=== PATIENT | male | born 1965 | race Caucasian/White ===

== ENCOUNTER 2023-07-29 18:15 | Inpatient (IN) | payer MEDICARE, OTHER, SELFPAY ==
[2023-07-29] VITALS (21 sets, daily range): BP systolic 108–152; BP diastolic 37–93; BMI 26.1
[2023-07-29] MEDS: DILAUDID 1 MG IV ×3 (14:53→21:38)
[2023-07-29 15:03] LABS: % Basophils 0.7 % (0-2); % Eosinophils 0.8 % (0-6); % Immature Granulocytes 0.6 % (0-0.5); % Lymphocytes 6.8 % (20.5-51.1); % Monocytes 7.7 % (1.7-9.3); % Neutrophils 83.4 % (42.2-75.2); Absolute Basophils 0.1 10^3/uL (0-0.2); Absolute Eosinophils 0.1 10^3/uL (0-0.7); Absolute Immature Granulocytes 0.1 10^3/uL (0-0.05); Absolute Lymphocytes 0.7 10^3/uL (1.2-3.4); Absolute Monocytes 0.8 10^3/uL (0.1-0.6); Absolute Neutrophils 9.1 10^3/uL (1.4-6.5); Mean Corp Hgb Conc. 31.8 g/dL (33.0-37.0); Mean Corpuscular Hgb 25.7 pg (27.0-31.0); Mean Corpuscular Volume 80.6 fL (80.0-94.0); Mean Platelet Volume 9.6 fL (7.4-10.4); Nucleated Red Blood Cells % 0 % (-); Platelet Count 337 10^3/uL (130-400); Red Blood Cell Count 2.22 10^6/uL (4.70-6.10); Red Cell Dist. Width 17.2 % (11.5-14.5); White Blood Cell Count 10.9 10^3/uL (4.8-10.8)
[2023-07-29 15:15] LABS: INR 4.95
[2023-07-29 15:29] LABS: Hematocrit 17.9 % (39.0-52.0); Hemoglobin 5.7 g/dL (13.0-18.0)
[2023-07-29 15:40] LABS: Blood Urea Nitrogen 75 mg/dl (9-20); Calcium 8.8 mg/dl (8.4-10.2); Carbon Dioxide 28 mmol/L (22-30); Chloride 91 mmol/L (98-107); Glucose 255 mg/dl (70-99); Potassium 4.8 mmol/L (3.5-5.1); Sodium 130 mmol/L (135-145); eGFR 9.01
--- NOTE | 2023-07-29 16:37 | ED.GENMED ---
History of Present Illness
General
Chief Complaint: Fall
Source: patient
Time Seen by Provider: 07/29/23 14:38
Travel History
Have you had any contact with someone who has COVID-19?: No
Do you have any symptoms of coronavirus? Fever > 100 degrees, chills, cough, shortness of breath, sore throat, loss of taste or smell, muscle aches, or headache?: No
History of Present Illness
History of Present Illness:
58-year-old male who presents after he fell into his nightstand. Patient states he fell on Thursday night. The pain is persistent so he decided come for evaluation. He is on Coumadin. His last INR check was yesterday but he does not know the
results. No shortness of breath. No abdominal pain. No neck pain. No head injury. The patient did not get dialysis today
Past History
Past History
ED Past Medical History: CAD, GERD, HTN, IDDM, Renal failure (End-stage renal disease), Psychiatric (Depression) and Other (Chronic low back pain, ambulatory dysfunction, anemia, pneumonia, pericardial effusion, pleural effusion, frequent falls,
neuropathy)
ED Past Surgical History: Other (Left arm AV graft)
Social History
Tobacco: Non-smoker
Employment: Disabled
Family History
Family History: Other (Noncontributory)
Phy Exam
Physical Exam
Physical Exam:
CONSTITUTIONAL Patient alert and oriented to person, place and time. Moderate pain distress. Vital signs reviewed.
HEAD atraumatic, normocephalic.
EYES eyelids normal to inspection, Extraocular muscles intact, Conjunctiva normal, Sclera normal.
NECK normal range of motion, Trachea midline, no jugular venous distention.
RESPIRATORY CHEST No respiratory distress noted, Chest expansion equal, Bilateral breath sounds clear.
CARDIOVASCULAR regular rate and rhythm, Heart sounds normal.
ABDOMEN abdomen nontender, Bowel sounds normal. No distention.
BACK large palpable hematoma to the left lateral chest wall just posterior to the posterior axillary line. There is no redness or ecchymosis. There is moderate tenderness
UPPER EXTREMITY range of motion normal, Motor strength normal, no cyanosis, no edema.
LOWER EXTREMITY range of motion normal, Motor strength normal, no cyanosis, no edema.
NEURO Speech normal, No focal motor deficits, Atif coma scale 15, Memory normal, Cranial Nerves intact to screening exam.
Course
Orders/Labs/Results
Orders:
Orders
07/29/23 14:45
CT Chest With Iv Contrast Stat
Comment:
Reason For Exam: L posterior chest wall trauma, hematoma
07/29/23 14:46
HYDROmorphone [Dilaudid] 1 mg IV NOW STA
07/29/23 14:51
Basic Metabolic Panel Urgent
Complete Blood Count/With Diff Urgent
Prothrombin Time Urgent
07/29/23 15:42
Electrocardiogram (*1) Urgent
Reason for Study: Other
Other Reason for Exam: fall
EKG- Treatment ONCE
07/29/23 16:35
* Blood Bank Products Urgent
Blood Bank Products: *Packed RBC Leuko(PRBC's)
Quantity: 2
Transfuse Today: Yes
Reason: Bleeding
07/29/23 16:42
Phytonadione [Aquamephyton] 10 mg 0.9% Sodium Chloride 50 ml [Nss] 50 ml IV NOW
07/29/23 16:45
Type+Screen Urgent
07/29/23 16:47
Prothrombin Complex(Pcc),Human [Kcentra] 3,207 unit Empty Viaflex Container 100 ml [Viaflex Empty Container] 120 ml IV NOW
Does patient have a dx of serious acute active bleeding?: Yes
Does patient have prior history of HIT?: No
Urgent surgery/invasive procedure planned in next 6 hours?: No
07/29/23 16:50
HYDROmorphone [Dilaudid] 1 mg IV NOW STA
04/10/24 17:23
Admit/Transfer Patient As Directed
Co-Sign Provider:
Level of Care: Inpatient admission
Assign to:: IMU- Intermediate Care
Physician / Group: oitlio
Diagnosis: chest wall hematoma
Reason for Hospitalization: chest wall hematoma
Expected length of stay greater than two midnights?: Yes
ELOS- Estimated Length of Stay in days: 2
I certify the patient meets the requirements for IP care: Yes
07/29/23 17:24
Code Status As Directed
Resuscitation Status: Full Code
07/29/23 18:04
CT Head W/o Iv Contrast Urgent
Comment:
Reason For Exam: recent fall
Abnormal Lab Results
07/29/23 07/29/23
14:51 16:45
WBC 10.9 H 10^3/uL
(4.8-10.8)
RBC 2.22 L 10^6/uL
(4.70-6.10)
Hgb 5.7 L* g/dL
(13.0-18.0)
Hct 17.9 L* %
(39.0-52.0)
MCH 25.7 L pg
(27.0-31.0)
MCHC 31.8 L g/dL
(33.0-37.0)
RDW 17.2 H %
(11.5-14.5)
Abs Immat Gran (auto) 0.1 H 10^3/uL
(0-0.05)
Absolute Neuts (auto) 9.1 H 10^3/uL
(1.4-6.5)
Absolute Lymphs (auto) 0.7 L 10^3/uL
(1.2-3.4)
Absolute Monos (auto) 0.8 H 10^3/uL
(0.1-0.6)
Immature Gran % 0.6 H %
(0-0.5)
Neutrophils % 83.4 H %
(42.2-75.2)
Lymphocytes % 6.8 L %
(20.5-51.1)
PT 47.0 H Sec
(11.4-14.6)
Sodium 130 L mmol/L
(135-145)
Chloride 91 L mmol/L
(98-107)
BUN 75 H mg/dl
(9-20)
Creatinine 6.6 H* mg/dL
(0.7-1.3)
Glucose 255 H mg/dl
(70-99)
Crossmatch IS Only See Detail
07/29/23 14:51
07/29/23 14:51
Vital Signs
Initial and Last Documented VS:
Initial Vital Signs
Temp Pulse Resp BP Pulse Ox
98.6 F 79 16 119/52 96
07/29/23 14:37 07/29/23 14:37 07/29/23 14:37 07/29/23 14:37 07/29/23 14:37
Last Documented Vital Signs
Temp Pulse Resp BP Pulse Ox
98.6 F 79 16 119/52 96
07/29/23 14:37 07/29/23 14:37 07/29/23 14:37 07/29/23 14:37 07/29/23 14:37
MDM/Problems Addressed
MDM/Problems Addressed:
Hematoma, acute severe coagulopathy, acute severe anemia, end-stage renal disease
*Radiology
Radiology exam reviewed: preliminary read by ED provider (Large hematoma) and radiology read reviewed
*Pulse Oximetry
Patient hypoxic: no
*EKG
Interpreted by ED Provider?: Yes
Interpretation: abnormal
Rate: normal
QRS Pattern: right bundle branch block
Ischemia: non-specific ST changes
*Flyer Repairer Interpretation
Rate: normal
Interpretation: normal
Rhythm: sinus
*Critical Care Note
Total Time (30-74mins, 75-104mins- exclusive of procedures): 60 minutes
Data Reviewed
Review of Other/Old Records Reveals: Labs and Discharge Summary (From March 2023 reviewed)
Source: patient
Further Testing Considered But Not Given:
Considered CT of the neck but no midline tenderness
Patient Management
Discussion with other providers: Hospitalist and Refinery Operator Light Ends Recovery (Case discussed with general surgery who agrees with management)
Escalation/DeEscalation of care consider admission/obs:
58-year-old male presents after fall 3 days ago. Patient states pain is persistent. Has a large hematoma but luckily no rib fractures, no flail chest, no pneumothorax, no obvious pulmonary contusion or intrathoracic injury. Kcentra given to
reverse coagulopathy. Blood ordered. Admit. General surgery agrees with management
ED Attending Note
-
Portions of this chart may have been created with voice recognition software.� Occasional wrong word or��sound alike� substitutions may have occurred due to the inherent limitations of voice recognition software.
Discharge Plan
Departure
Patient Disposition: Admit
Date of Disposition: 07/29/23
Time of Disposition: 16:38
Admit to: IMU
Presentation/result/management discussed w/ accepting MD/DO: Hospitalist
Discharge Problem:
Hematoma, ESRD (end stage renal disease), Anemia, Supratherapeutic INR
Prescriptions:
No Action
atorvastatin 80 mg Tablet
80 mg PO HS
clonidine HCl 0.1 mg Tablet
0.1 mg PO TID
icosapent ethyl [Vascepa] 1 gram Capsule
2 g PO BID
lidocaine-prilocaine 2.5-2.5 % Cream
1 applic TOPICAL MOWEFR
Rx Instructions:
12/23/22 APPLY ONE HOUR PRIOR TO HD TO LEFT AVF
Aimovig Autoinjector 70 mg/mL auto-injector
70 mg SC MONTHLY
Patient Comments:
07/29/2023: pt states hasn't taken in a few months
nifedipine 60 mg Tablet Extended Release
60 mg PO BID Qty: 0 0RF
gabapentin 300 mg capsule
300 mg PO BID
sevelamer carbonate 800 mg tablet
1,600 mg PO MEALS
Probiotic 3 billion cell Capsule
3,000 mmu cells PO DAILY
insulin aspart U-100 [Novolog FlexPen U-100 Insulin] 100 unit/mL (3 mL) insulin pen
1 sliding scale dose SC ACHS
polyethylene glycol 3350 [HealthyLax] 17 gram Powder In Packet
17 g PO DAILY PRN (Reason: constipation) Qty: 0 0RF
bumetanide 2 mg tablet
4 mg PO SUTUTHSA
sertraline 100 mg tablet
100 mg PO DAILY
oxycodone-acetaminophen 5-325 mg tablet
1 tab PO Q8H PRN (Reason: moderate pain)
Patient Comments:
07/29/2023: last filled 06/16/23, 90 tabs for 30 days from [id number]
warfarin 6 mg tablet
6 mg PO QPM
hydralazine 100 mg tablet
100 mg PO TID
pantoprazole 40 mg tablet,delayed release (DR/EC)
40 mg PO BID
losartan 100 mg tablet
100 mg PO DAILY
Dialyvite 100-1 mg tablet
1 tab PO DAILY
insulin degludec [Tresiba U-100 Insulin] 100 unit/mL solution
6 unit SC HS
Referrals:
Rosemarie Paige DO [Family Provider] -
Discharge Date and Time
Print Language: GEORGIAN
[2023-07-29] MEDS: KCENTRA 120 UNIT IV (17:00)
[2023-07-29] MEDS: AQUAMEPHYTON 51 MG IV (17:19)
--- NOTE | 2023-07-29 17:27 | HPS.HSE ---
Addendum entered and electronically signed by Cristi Viera MD 07/29/23 18:02:
ER spoke with cardiothoracic surgery who deferred management to general surgery. ER spoke with general surgery who will consult and states the patient can stay at [place].
Original Note:
Family Physician
-
Family Physician: Rosemarie Paige
Chief Complaint
-
fall and left sided chest wall pain
History of Present Illness
58-year-old male past medical history of ESRD on hemodialysis M, W, F, HFpEF, pleural effusions, coronary artery disease, paroxysmal atrial fibrillation on Coumadin, hypertension, anemia of chronic disease, diabetes, spinal stenosis presenting with
fall 2 days ago with resulting large left flank hematoma. He states that he was adjusting his bed sheets in the head stand/bed fell onto him and he fell onto his left side. He has had significant pain of his left upper chest radiating to his back
and shoulder since then. He denies any chest pain or shortness of breath. He denies any dizziness or syncope. He denies any fevers or chills.
Hemodialysis today and his last dialysis session was on Thursday.
Medical History
Past Medical History
Past Medical History: Reports Other ( ESRD on hemodialysis M, W, F, HFpEF, pleural effusions, coronary artery disease, paroxysmal atrial fibrillation on Coumadin, hypertension, anemia of chronic disease, diabetes, spinal stenosis)
Past Surgical History: Reports Other ( (Left arm AV graft))
Social History
Tobacco: Former Smoker
Alcohol: Former
Drug: None
Family History
Family History: Not pertinent
Allergies / Home Medications
Allergies reflects when Allergies were last updated in [facility].
Home Medications with original date entered in [facility]
Allergy/Medication List:
Allergies
Allergy/AdvReac Type Severity Reaction Status Date / Time
morphine Allergy Unknown Verified 07/29/23 14:37
Home Medications
atorvastatin 80 mg tablet 80 mg PO HS High Cholesterol 12/23/22
clonidine HCl 0.1 mg tablet 0.1 mg PO TID Blood Pressure 12/23/22
icosapent ethyl 1 gram capsule (Vascepa) 2 g PO BID High Cholesterol 12/23/22
lidocaine-prilocaine 2.5 %-2.5 % topical cream 1 applic topical MOWEFR port access 12/23/22
erenumab-aooe 70 mg/mL subcutaneous auto-injector (Aimovig Autoinjector) 70 mg SC MONTHLY migraine 02/05/23
nifedipine 60 mg tablet,extended release 60 mg PO BID Blood Pressure #0 tabs 02/13/23
gabapentin 300 mg capsule 300 mg PO BID Pain 03/30/23
insulin aspart U-100 100 unit/mL (3 mL) subcutaneous pen (Novolog FlexPen U-100 Insulin aspart) 1 sliding scale dose SC ACHS diabetes 03/30/23
lactobacillus combination no.4 3 billion cell capsule (Probiotic) 3,000 mmu cells PO DAILY probiotic 03/30/23
sevelamer carbonate 800 mg tablet 1,600 mg PO MEALS Kidney Disease 03/30/23
polyethylene glycol 3350 17 gram oral powder packet (HealthyLax) 17 g PO DAILY PRN constipation #0 ea 04/10/23
bumetanide 2 mg tablet 4 mg PO SUTUTHSA 07/29/23
hydralazine 100 mg tablet 100 mg PO TID 07/29/23
insulin degludec 100 unit/mL subcutaneous solution (Tresiba U-100 Insulin) 6 unit SC HS Diabetes 07/29/23
losartan 100 mg tablet 100 mg PO DAILY 07/29/23
oxycodone-acetaminophen 5 mg-325 mg tablet 1 tab PO Q8H PRN moderate pain 07/29/23
pantoprazole 40 mg tablet,delayed release 40 mg PO BID 07/29/23
sertraline 100 mg tablet 100 mg PO DAILY 07/29/23
vitamin B complex-vitamin C 100 mg-folic acid 1 mg tablet (Dialyvite) 1 tab PO DAILY 07/29/23
warfarin 6 mg tablet 6 mg PO QPM 07/29/23
Review of Systems
-
History Source: Patient
A 12 point ROS was completed and negative except as noted: Yes
Constitutional: Reports No Symptoms
EENT: Reports No Symptoms
Respiratory: Reports No Symptoms
Cardiac: Reports No Symptoms
Abdomen/GI: Reports No Symptoms
: Reports No Symptoms
Musculoskeletal: Reports No Symptoms
Skin: Reports No Symptoms
Neurological: Reports No Symptoms
Endocrine: Reports No Symptoms
Hematologic/Lymphatic: Reports No Symptoms
Psych: Reports No Symptoms
Physical Exam
Vital Signs
Vital Signs
Temp Pulse Resp BP Pulse Ox
98.6 F 79 16 119/52 96
07/29/23 14:37 07/29/23 14:37 07/29/23 14:37 07/29/23 14:37 07/29/23 14:37
Physical Exam
General: Well Developed, Well Nourished and No Apparent Distress
HEENT: NormoCephalic, Moist mucous membranes and Atraumatic
Respiratory: Clear
Cardiac: S1/S2, Regular Rhythm and Other (left chest wall swelling and tenderness ); No Murmur or Rub
GI: Soft, Non Tender, Non Distended and Normal Bowel Sounds; No Organomegaly
Rectal: Deferred by Provider
Musculoskeletal: No Clubbing, No Cyanosis and No Edema
Skin: No Rash
Neuro: Nonfocal/grossly intact
Laboratory Results
-
07/29/23 14:51
07/29/23 14:51
Laboratory Results
PT 47.0 Sec (11.4-14.6) H 07/29/23 14:51
INR 4.95 07/29/23 14:51
Data Reviewed
-
Lab Data: Labs Reviewed by me
Old Records: Reviewed
Impression/Plan
-
IMPRESSION:
PLAN:
# Fall resulting in large left chest wall hematoma, in the setting of Coumadin use
# Supratherapeutic INR
# Acute blood loss anemia on anemia of chronic kidney disease
-Hemoglobin 5.7 from 8.7
-INR of 4.95
-CT chest shows 20 x 20 x 8 cm solid and cystic fluid collection the left chest wall system with hematoma
-Hold Coumadin
-Vitamin K given
-Kcentra given
-2 units of blood
-Tylenol, Dilaudid for pain
-cardiothoracic surgery recommending transfer to trauma center after stabilization with transfusions and correction of INR
ESRD on hemodialysis M, W, F
-Dialysis today, last dialysis session on Thursday
-Continue sevelamer
-Nephrology consulted
Chronic HFpEF
-continue bumex
History of bilateral pleural effusions status post thoracentesis
-As per CT scan pleural effusions are improved compared to prior
History of pericardial effusion status post pericardiocentesis
Coronary artery disease
-Continue statin
Paroxysmal atrial fibrillation
-hold coumadin
Essential hypertension
-Continue clonidine, hydralazine, losartan, nifedipine
Type 2 diabetes
-Insulin sliding scale
-Continue Tresiba 6 units at night
Hyperlipidemia
-Continue Vascepa
Spinal stenosis
-Continue gabapentin, Percocet
Migraine history
History of C. difficile
Anxiety/depression
-Continue sertraline
Former smoker
Former alcohol use
Full code
DVT prophylaxis�SCDs
Renal diet
--- NOTE | 2023-07-29 18:58 | W.CON.NEPH ---
Consultation
-
Date/Time Consultation Requested: 07/29/231729
Date/Time Consultation Performed: 07/29/23 1900
Requesting Provider: Cristi Archibald
Performing Provider: Jessica Parra
Reason for Consultation: ESRD
Medical History
-
Chief Complaint: fall and left side chest wall pain
History of Present Illness:
58-year-old male past medical history of ESRD on hemodialysis 5yr, M, W, F, at [facility], HFpEF, pleural effusions previous thoracentesis, on chr diuretics with bumex still, IDDM HTN on hydralazine, Procardia and clonidine, Hyperphosphatemia
on renvela, coronary artery disease, paroxysmal atrial fibrillation on Coumadin, anemia of chronic disease, diabetes, spinal stenosis presenting with fall 2 days ago at home with resulting large left flank hematoma. Reportedly he was adjusting his
bed sheets in the head stand/bed fell onto him and he fell onto his left side. He has had significant pain of his left upper chest radiating to his back and shoulder since then. He c/o left lateral chest pain but no shortness of breath. He denies
any dizziness or syncope. He denies any fevers or chills.Last HD was on Thursday. His hb low at 5.[address] chest shows large 20cm hematoma in left chest. No hypotension noted. He is receiving transfusion and had kcentra since INR high 4.95.
Past Medical History
1. ESRD x5 years presumed due to diabetic nephropathy.
2. Chronic pain.
3. Chronic back pain.
4. Atrial fibrillation on Coumadin.
5. Chronic anemia.
6. History of thoracentesis.
7. History of pericardiocentesis at outside hospital back in fall
of 2022.
8. Elevated HEYDI with subsequent negative testing.
9. Peripheral neuropathy.
10. History of left upper extremity radiocephalic AV fistula.
11. History of hypertension on multi-drug regimen.
12. History of coronary artery disease.
13. History of peripheral eosinophilia.
14. Hyperphosphatemia.
Past Surgical History: Other ((Left arm AV graft))
Social History
Tobacco: Former Smoker
Alcohol: Former
Drug: None
Employment: Disabled
Family History
no CKD
Family History: Not Pertinent
Allergies / Home Medications
Allergy/AdvReac Type Severity Reaction Status Date / Time
morphine Allergy Unknown Verified 07/29/23 14:37
�Medication �Instructions �Recorded �Confirmed �Type
atorvastatin 80 mg tablet 80 mg PO HS High Cholesterol 12/23/22 07/29/23 History
clonidine HCl 0.1 mg tablet 0.1 mg PO TID Blood Pressure 12/23/22 07/29/23 History
icosapent ethyl 1 gram capsule 2 g PO BID High Cholesterol 12/23/22 07/29/23 History
(Vascepa)
lidocaine-prilocaine 2.5 %-2.5 % 1 applic topical MOWEFR port access 12/23/22 07/29/23 History
topical cream
erenumab-aooe 70 mg/mL 70 mg SC MONTHLY migraine 02/05/23 07/29/23 History
subcutaneous auto-injector
(Aimovig Autoinjector)
nifedipine 60 mg tablet,extended 60 mg PO BID Blood Pressure #0 tabs 02/13/23 07/29/23 Rx
release
gabapentin 300 mg capsule 300 mg PO BID Pain 03/30/23 07/29/23 History
insulin aspart U-100 100 unit/mL 1 sliding scale dose SC ACHS 03/30/23 07/29/23 History
(3 mL) subcutaneous pen (Novolog diabetes
FlexPen U-100 Insulin aspart)
lactobacillus combination no.4 3 3,000 mmu cells PO DAILY probiotic 03/30/23 07/29/23 History
billion cell capsule (Probiotic)
sevelamer carbonate 800 mg tablet 1,600 mg PO MEALS Kidney Disease 03/30/23 07/29/23 History
polyethylene glycol 3350 17 gram 17 g PO DAILY PRN constipation #0 04/10/23 07/29/23 Rx
oral powder packet (HealthyLax) ea
bumetanide 2 mg tablet 4 mg PO SUTUTHSA 07/29/23 07/29/23 History
hydralazine 100 mg tablet 100 mg PO TID 07/29/23 07/29/23 History
insulin degludec 100 unit/mL 6 unit SC HS Diabetes 07/29/23 07/29/23 History
subcutaneous solution (Tresiba
U-100 Insulin)
losartan 100 mg tablet 100 mg PO DAILY 07/29/23 07/29/23 History
oxycodone-acetaminophen 5 mg-325 1 tab PO Q8H PRN moderate pain 07/29/23 07/29/23 History
mg tablet
pantoprazole 40 mg tablet,delayed 40 mg PO BID 07/29/23 07/29/23 History
release
sertraline 100 mg tablet 100 mg PO DAILY 07/29/23 07/29/23 History
vitamin B complex-vitamin C 100 1 tab PO DAILY 07/29/23 07/29/23 History
mg-folic acid 1 mg tablet
(Dialyvite)
warfarin 6 mg tablet 6 mg PO QPM 07/29/23 07/29/23 History
Review of Systems
-
All compelte 12 point ROS have been inquired and found negative other than stated in HPI
Physical Exam
Vital Signs
Vital Signs
Temp Pulse Resp BP Pulse Ox
98.3 F 77 20 133/59 96
07/29/23 18:45 07/29/23 18:45 07/29/23 18:45 07/29/23 18:45 07/29/23 14:37
Lab Results
WBC 10.9 10^3/uL (4.8-10.8) H 07/29/23 14:51
RBC 2.22 10^6/uL (4.70-6.10) L 07/29/23 14:51
Hgb 5.7 g/dL (13.0-18.0) L* 07/29/23 14:51
Hct 17.9 % (39.0-52.0) L* 07/29/23 14:51
Plt Count 337 10^3/uL (130-400) 07/29/23 14:51
Sodium 130 mmol/L (135-145) L 07/29/23 14:51
Potassium 4.8 mmol/L (3.5-5.1) 07/29/23 14:51
Chloride 91 mmol/L (98-107) L 07/29/23 14:51
Carbon Dioxide 28 mmol/L (22-30) 07/29/23 14:51
BUN 75 mg/dl (9-20) H 07/29/23 14:51
Creatinine 6.6 mg/dL (0.7-1.3) H* 07/29/23 14:51
eGFR 9.01 07/29/23 14:51
Glucose 255 mg/dl (70-99) H 07/29/23 14:51
Calcium 8.8 mg/dl (8.4-10.2) 07/29/23 14:51
CT chest:
FINDINGS:
There is a large heterogeneous hematoma in the left hip chest wall, this measures at least 20 cm anterior to posterior, 22 cm craniocaudal and 8 cm transverse.
This begins at the level of the clavicle and subclavian vessels. No definite vascular extravasation into the soft tissues. The hematoma extends inferiorly to the level of the kidneys, with significant edema in the soft tissues of the flank, left
side of the chest and upper abdomen extending to the midline in the back.
No definite fracture identified. There is no pneumothorax. There are moderate degenerative changes in the spine, with significant disk narrowing, increased kyphosis, and flowing osteophytes.
There are bilateral pleural effusions right greater than left, significantly improved when compared to the previous exam. The patient had undergone a previous left thoracentesis after the prior CT scan.
There is minimal stranding, scarring and atelectasis in the dependent portion of the right upper lobe, and scarring with atelectasis extending into the right lower lobe. Limited evaluation due to the large amount of pleural fluid.
On the left there is a small to moderate-sized pleural effusion and mild left base atelectasis and scarring. Significantly improved compared to the previous exam.
Limited imaging in the upper abdomen, the patient's arms are at the sides. This limits overall evaluation. Dense calcification along the posterior aspect of the spleen is unchanged. May be due to previous injury. There is a 2 cm hypodensity in the
right upper quadrant, posterior to the adrenal gland, just superior to the kidney. Differential includes renal cyst or adenoma. Hounsfield units are consistent with either a simple cyst in the kidney or adrenal gland adenoma. Left adrenal gland
unremarkable.
IMPRESSION:
Huge 20 x 20 x 8 cm solid and cystic fluid collection in the left chest wall most consistent with the history of recent fall and hematoma. No definite acute hemorrhage into the fluid collection.
These findings were discussed with Dr. Aaron in the emergency room at 4:35 PM.
No definite adjacent fracture. No pneumothorax.
Bilateral pleural effusions right greater than left, actually improved compared to the previous CT scan 4 months ago. Basilar atelectasis and scarring.
Moderate degenerative change in the spine.
Probable simple cyst exophytic in the superior aspect of the right kidney versus 2 cm adenoma.
Physical Exam
General: Awake, Alert, Oriented and AOx3
HEENT: EOMI and Anicteric
Respiratory: Clear and Other (tender left chest wall)
Cardiac: S1/S2 and Regular Rate/Rhythm
Abdomen: Soft, Nontender and Nondistended
Musculoskeletal: No Cyanosis and Edema (1+)
Skin: No Rash
Neuro: Nonfocal/Grossly Intact
Psych: Insight/judgement good and Appropriate
Assessment/Plan
-
IMP:
Fall resulting in large left chest wall hematoma, in the setting of Coumadin use
Acute blood loss anemia on anemia of chronic kidney disease
CT chest shows 20 x 20 x 8 cm solid and cystic fluid collection the left chest wall system with hematoma
ESRD presumed DM nephropathy-on hemodialysis M, W, F, [facility]
Chronic HFpEF
History of bilateral pleural effusions status post thoracentesis
History of pericardial effusion status post pericardiocentesis
Coronary artery disease
Paroxysmal atrial fibrillation
Essential hypertension
DM with multiple microvascular complications
Hyperlipidemia
Spinal stenosis
Migraine history
History of C. difficile
Anxiety/depression
L radial AVF
Severe lumbar spinal stenosis at multiple levels
Chronic low back pain with ambulatory dysfunction
Hyponatremia, hypervolemic
Plan:
A/w fall 2day YARD COUPLER, found to have large left chest wall hematoma
Acute blood loss anemia-ok for transfusion today
will plan HD tomorrow with out heparin
hemodynamics stable
held AC, vit K and Kcentra given
would hold antiHTN meds today
renal diet and FR when diet starts
d/w pt
Data Reviewed
-
Radiology: Report Reviewed by me
CT Scan: Report Reviewed by me
Labs: Labs Reviewed by me and Discussed with Patient
--- NOTE | 2023-07-29 19:48 | PTCARENOTE ---
rn community marketing coordinator- Patient requesting visit from the ar, call placed to visual education teacher ar and left a message.
[2023-07-29] MEDS: PROTONIX 40 MG PO (20:40)
[2023-07-29] MEDS: PROCARDIA XL (EXTENDED RELEASE) 60 MG PO (20:40)
[2023-07-29] MEDS: NEURONTIN 300 MG PO (20:40)
[2023-07-29] MEDS: TYLENOL 650 MG PO (20:40)
[2023-07-29] MEDS: DILAUDID 0.5 MG IV (20:41)
--- NOTE | 2023-07-29 21:30 | PTCARENOTE ---
Pt was admitted to IMU. AAOx3, anxious and c/o back pain 01/27. See MAR for pain management. Pt was screaming and moaning due to pain, BLACK PULLER notify and pain management was adjusted. ST to NSR in the monitor. +1 B/L LE edema. Lt fistula thrill and bruit
present. Lung sounds are diminished at the bases, SaO2 94% RA. Shallow breathing. Abd round. Oliguric. Call nieto within reach. Fist unit of RBC transfused and will started second unit of RBC.
[2023-07-29] MEDS: LIPITOR 80 MG PO (21:46)
[2023-07-29] MEDS: LANTUS 0.0599999999999999978 UNITS SC (21:47)
[2023-07-29 21:53] LABS: Glucose - Point of Care 263 mg/dl (70-99)
[2023-07-30] VITALS (34 sets, daily range): BP systolic 122–201; BP diastolic 58–103; BMI 26.3
[2023-07-30] MEDS: DILAUDID 1 MG IV ×2 (05:21→12:26)
[2023-07-30 05:34] LABS: % Basophils 0.7 % (0-2); % Eosinophils 1.8 % (0-6); % Immature Granulocytes 0.5 % (0-0.5); % Lymphocytes 10.5 % (20.5-51.1); % Neutrophils 75.5 % (42.2-75.2); Absolute Basophils 0.1 10^3/uL (0-0.2); Absolute Eosinophils 0.2 10^3/uL (0-0.7); Absolute Immature Granulocytes 0.1 10^3/uL (0-0.05); Absolute Lymphocytes 1.3 10^3/uL (1.2-3.4); Absolute Monocytes 1.4 10^3/uL (0.1-0.6); Absolute Neutrophils 9.4 10^3/uL (1.4-6.5); Hematocrit 21.4 % (39.0-52.0); Mean Corp Hgb Conc. 33.2 g/dL (33.0-37.0); Mean Corpuscular Hgb 26.9 pg (27.0-31.0); Mean Corpuscular Volume 81.1 fL (80.0-94.0); Mean Platelet Volume 9.5 fL (7.4-10.4); Nucleated Red Blood Cells % 0 % (-); Platelet Count 288 10^3/uL (130-400); Red Blood Cell Count 2.64 10^6/uL (4.70-6.10); Red Cell Dist. Width 16.3 % (11.5-14.5); White Blood Cell Count 12.5 10^3/uL (4.8-10.8)
[2023-07-30 05:40] LABS: Hemoglobin 7.1 g/dL (13.0-18.0)
[2023-07-30 06:10] LABS: ALT (SGPT) 10 U/L (0-50); AST (SGOT) 19 U/L (17-59); Albumin 2.9 g/dl (3.5-5.0); Alkaline Phosphatase 114 U/L (38-126); Blood Urea Nitrogen 81 mg/dl (9-20); Calcium 8.9 mg/dl (8.4-10.2); Carbon Dioxide 28 mmol/L (22-30); Chloride 91 mmol/L (98-107); Estimated Creatinine Clearance 11 ml/min; Glucose 66 mg/dl (70-99); Sodium 132 mmol/L (135-145); Total Bilirubin 0.8 mg/dl (0.2-1.3); eGFR 7.85
[2023-07-30 07:08] LABS: Glucose - Point of Care 74 mg/dl (70-99)
[2023-07-30] MEDS: NOVOLOG FLEXPEN-LOW RESISTANCE SC ×3 (07:31→17:44)
[2023-07-30] MEDS: RENVELA 1600 MG PO ×3 (08:24→17:44)
[2023-07-30] MEDS: NEURONTIN 300 MG PO ×2 (08:24→20:13)
[2023-07-30 08:35] LABS: Glucose - Point of Care 96 mg/dl (70-99)
--- NOTE | 2023-07-30 08:35 | W.PN.HOSP.TC ---
Today's Communication/Plan
-
Blood transfusion. Surgery eval. Monitor hemoglobin. Pain control.
Assessment / Plan
Assessment / Plan
Physical Exam
General: Well Developed, Well Nourished and No Apparent Distress
HEENT: NormoCephalic, Moist mucous membranes and Atraumatic
Respiratory: Clear
Cardiac: S1/S2, Regular Rhythm and Other (left chest wall swelling and tenderness ); No Murmur or Rub
GI: Soft, Non Tender, Non Distended and Normal Bowel Sounds; No Organomegaly
Rectal: Deferred by Provider
Musculoskeletal: No Clubbing, No Cyanosis and No Edema
Skin: No Rash
Neuro: Nonfocal/grossly intact
A/P:
# Fall resulting in large left chest wall hematoma, in the setting of Coumadin use
# Supratherapeutic INR
# Acute blood loss anemia on anemia of chronic kidney disease
-Hemoglobin 5.7 from 8.7
-INR of 4.95
-CT chest shows 20 x 20 x 8 cm solid and cystic fluid collection the left chest wall system with hematoma
-Hold Coumadin
-Vitamin K given
-Kcentra given
-2 units of blood--> repeat another 1 unit of blood today
-Tylenol, Dilaudid for pain
-cardiothoracic surgery recommending transfer to trauma center after stabilization with transfusions and correction of INR.
-General surgery consulted and discussed with surgery today on 07/29--> plan to monitor conservatively and if worsening might consider repeat CT with angiogram.
-Repeat CBC and coagulation profile tomorrow
ESRD on hemodialysis M, W, F
-Dialysis today, last dialysis session on Thursday
-Continue sevelamer
-Nephrology consulted
Chronic HFpEF
-continue bumex
History of bilateral pleural effusions status post thoracentesis
-As per CT scan pleural effusions are improved compared to prior
History of pericardial effusion status post pericardiocentesis
Coronary artery disease
-Continue statin
Paroxysmal atrial fibrillation
-hold coumadin
Essential hypertension
-Continue clonidine, hydralazine, losartan, nifedipine
Type 2 diabetes
-Insulin sliding scale
-Continue Tresiba 6 units at night
Hyperlipidemia
-Continue Vascepa
Spinal stenosis
-Continue gabapentin, Percocet
Migraine history
History of C. difficile
Anxiety/depression
-Continue sertraline
Former smoker
Former alcohol use
Full code
DVT prophylaxis�SCDs
Renal diet
Total time spent on today's encounter was 52 minutes which included time spent in counseling the patient/family regarding diagnosis and treatment plan as listed above, goals of care, and symptom management. Case was discussed with nursing staff,
specialists, and care coordinators/case management. All labs and imaging personally reviewed by me. Remainder the time spent in detailed review of previous records, lab data, imaging, and other medical provider documentation.
Anticipated Discharge: > 48 hours
Subjective/Interval History
-
Date of Service: July 30, 2023
Patient continues to complain of chest pain and shortness of breath. Generalized weakness present. Remains on room air, off oxygen.
Objective Data
-
Labs:
Laboratory Results
07/30/23 07/30/23
05:27 10:00
WBC 12.5 H
Hgb 7.1 L D Pending
Hct 21.4 L Pending
Plt Count 288
PT Pending
INR Pending
Sodium 132 L
Potassium 5.0
Chloride 91 L
Carbon Dioxide 28
BUN 81 H
Creatinine 7.4 H*
Glucose 66 L
Calcium 8.9
Total Bilirubin 0.8
AST 19
ALT 10
Alkaline Phosphatase 114
Vital Signs:
Vital Signs
Temp Pulse Resp BP Pulse Ox
98.4 F 69 8 130/64 95
07/30/23 07:00 07/30/23 04:00 07/30/23 04:00 07/30/23 04:00 07/30/23 04:00
I&O
07/29/23 07/30/23 07/31/23
06:59 06:59 06:59
Intake Total 740 / 740
Balance 740 / 740
[2023-07-30 08:49] LABS: Glycohemoglobin (HgbA1c) 6.1 % (4.0-5.6)
[2023-07-30] MEDS: RETACRIT 10000 UNITS IV (09:08)
[2023-07-30 10:33] LABS: Hematocrit 20.2 % (39.0-52.0); Hemoglobin 6.8 g/dL (13.0-18.0)
[2023-07-30 10:39] LABS: INR 1.31; PT 16.4 Sec (11.4-14.6)
--- NOTE | 2023-07-30 11:31 | W.PN.NEPH.HD ---
Assessment
-
pt seen during HD
vitals stable
prn transfusion for anemia, high dose JAIME
UF as tolerates
HD tomorrow per schedule
no heparin
AVF functions well
Progress Note - Hemodialysis
-
Date of Service: July 30, 2023
Duration: 30 minutes and 3 hours
Potassium Bath: 2
Calcium Bath: 2.5
Opti-Dialyzer: 160
Ultrafiltration: Other (2.5-3kg)
Blood Flow: 400
Dialysate Flow: 600
Heparin: no
EPO: [id number]
--- NOTE | 2023-07-30 11:49 | CON.GS ---
Consultation
-
Date/Time Consultation Performed: 07/30/2023 11:30 AM
Performing Provider: Jamison
Reason for Consultation: Left chest hematoma
Medical History
-
Chief Complaint: Left scapular/back/chest pain
History of Present Illness:
Patient is a 58-year-old male chronically anticoagulated on Coumadin secondary to A-fib, ESRD on HDwho presented to the emergency department yesterday and with multiple additional medical problems secondary to left lateral chest pain, shortness of
breath and left scapular/shoulder pain.
He was in his usual baseline state of health until Thursday. He was changing his bed sheets when he fell onto his left side hitting his nightstand. There was some discomfort at that time but he did not think much of it and he continued through the
weekend uneventfully. He went to dialysis on Thursday and was still feeling well. Then Thursday into Thursday he developed left posterior chest pain, swelling radiation to the left scapular and shoulder region prompting emergency department
evaluation. He skipped dialysis yesterday.
He continues with the same pain and discomfort today. No dizziness, no shortness of breath, denies any syncope.
Past Medical History
Past Medical History: Other (ESRD on HD, chronic back pain, atrial fibrillation on Coumadin, chronic anemia, history of thoracentesis and pericardiocentesis, peripheral neuropathy, hypertension, CAD, peripheral eosinophilia, hyperphosphatemia)
Past Surgical History: Other (Left upper extremity AV graft, cardiac stenting)
Social History
Tobacco: Former Smoker
Alcohol: Former
Drug: None
Employment: Disabled
Family History
Family History: Reviewed & Not Pertinent
Allergies / Home Medications
Allergy/AdvReac Type Severity Reaction Status Date / Time
morphine Allergy Unknown Verified 07/29/23 14:37
�Medication �Instructions �Recorded �Confirmed �Type
atorvastatin 80 mg tablet 80 mg PO HS High Cholesterol 12/23/22 07/29/23 History
clonidine HCl 0.1 mg tablet 0.1 mg PO TID Blood Pressure 12/23/22 07/29/23 History
icosapent ethyl 1 gram capsule 2 g PO BID High Cholesterol 12/23/22 07/29/23 History
(Vascepa)
lidocaine-prilocaine 2.5 %-2.5 % 1 applic topical MOWEFR port access 12/23/22 07/29/23 History
topical cream
erenumab-aooe 70 mg/mL 70 mg SC MONTHLY migraine 02/05/23 07/29/23 History
subcutaneous auto-injector
(Aimovig Autoinjector)
nifedipine 60 mg tablet,extended 60 mg PO BID Blood Pressure #0 tabs 02/13/23 07/29/23 Rx
release
gabapentin 300 mg capsule 300 mg PO BID Pain 03/30/23 07/29/23 History
insulin aspart U-100 100 unit/mL 1 sliding scale dose SC ACHS 03/30/23 07/29/23 History
(3 mL) subcutaneous pen (Novolog diabetes
FlexPen U-100 Insulin aspart)
lactobacillus combination no.4 3 3,000 mmu cells PO DAILY probiotic 03/30/23 07/29/23 History
billion cell capsule (Probiotic)
sevelamer carbonate 800 mg tablet 1,600 mg PO MEALS Kidney Disease 03/30/23 07/29/23 History
polyethylene glycol 3350 17 gram 17 g PO DAILY PRN constipation #0 04/10/23 07/29/23 Rx
oral powder packet (HealthyLax) ea
bumetanide 2 mg tablet 4 mg PO SUTUTHSA 07/29/23 07/29/23 History
hydralazine 100 mg tablet 100 mg PO TID 07/29/23 07/29/23 History
insulin degludec 100 unit/mL 6 unit SC HS Diabetes 07/29/23 07/29/23 History
subcutaneous solution (Tresiba
U-100 Insulin)
losartan 100 mg tablet 100 mg PO DAILY 07/29/23 07/29/23 History
oxycodone-acetaminophen 5 mg-325 1 tab PO Q8H PRN moderate pain 07/29/23 07/29/23 History
mg tablet
pantoprazole 40 mg tablet,delayed 40 mg PO BID 07/29/23 07/29/23 History
release
sertraline 100 mg tablet 100 mg PO DAILY 07/29/23 07/29/23 History
vitamin B complex-vitamin C 100 1 tab PO DAILY 07/29/23 07/29/23 History
mg-folic acid 1 mg tablet
(Dialyvite)
warfarin 6 mg tablet 6 mg PO QPM 07/29/23 07/29/23 History
Review of Systems
-
History Source: Patient
All other systems: Negative unless noted
A 10 point review of systems was completed, and was negative except as per HPI.
Physical Exam
Vital Signs
Temp Pulse Resp BP Pulse Ox
98.4 F 81 14 142/66 96
07/30/23 07:00 07/30/23 10:15 07/30/23 10:15 07/30/23 10:15 07/30/23 10:15
07/29/23 07/30/23 07/31/23
06:59 06:59 06:59
Actual Weight 85.5 kg
Body Mass Index (BMI) 26.3
Lab Results
07/30/23 10:11
07/30/23 05:27
WBC 12.5 10^3/uL (4.8-10.8) H 07/30/23 05:27
Hgb 6.8 g/dL (13.0-18.0) L* 07/30/23 10:11
Hct 20.2 % (39.0-52.0) L* 07/30/23 10:11
Plt Count 288 10^3/uL (130-400) 07/30/23 05:27
Abs Immat Gran (auto) 0.1 10^3/uL (0-0.05) H 07/30/23 05:27
Neutrophils % 75.5 % (42.2-75.2) H 07/30/23 05:27
Physical Exam
General: Well Developed, Well Nourished and Pain (Uncomfortable appearing)
HEENT: Normocephalic, Anicteric and Moist Mucous Membranes
Respiratory: Non Labored Respirations
Cardiac: Irregular Rhythm
GI: Soft, Non Tender and Non Distended
Skin: Other (Left lateral chest wall and back with generalized swelling. No overlying skin changes. No visible ecchymosis. Diffuse tenderness.)
Neuro: AO x 3
Psych: Calm
Data Reviewed
-
CT Scan: Image Personally Visualized and interpreted
Labs: Labs Reviewed by me
Assessment / Plan
-
Assessment: 58-year-old male admitted with large left chest wall hematoma status post fall complicated by Coumadin coagulopathy.
Extends along the entire left chest within the region of the left trapezius subscapular area and continuing inferiorly immediately adjacent to the ribs and intercostal muscles but no pleural involvement. Some stranding into the subcutaneous tissues
but predominantly is deeper than superficial subcutaneous fat. No underlying rib fractures
Plan: No indications for acute surgical intervention (infection, uncontrolled bleeding pressure necrosis on surrounding structures, )
Given acuteness of hematoma likely predominantly containing coagulated blood products would not pursue any noninvasive drainage as would be unlikely to remove significant coagulated/clot burden of hematoma and would just pose infectious risks at
this point.
Serial CBC and continue to monitor INR.
Continue transfusions and maintenance of normal coagulation profile and transfuse for acute anemia as needed.
If concerns for ongoing bleeding repeat CT chest imaging with angiogram. Initial study was CT with IV contrast and no definitive blush seen within limits of this scan.
[2023-07-30] MEDS: EMLA CREAM TOPICAL (12:22)
[2023-07-30] MEDS: B COMPLEX w/VITAMIN C 1 CAPLET PO (12:22)
[2023-07-30] MEDS: VISBIOME 1 CAP PO (12:22)
[2023-07-30] MEDS: ZOLOFT 100 MG PO (12:22)
[2023-07-30] MEDS: PROTONIX 40 MG PO ×2 (12:22→20:14)
[2023-07-30 12:23] LABS: Glucose - Point of Care 115 mg/dl (70-99)
[2023-07-30] MEDS: BUMEX PO (13:29)
--- NOTE | 2023-07-30 15:29 | CM ---
met with patient at bedside.he lives with his cousin wilfrido in split level home with 7 steps to enter,his bed and bath is on the second level up 5 steps.he ambulates with a walker,he has a shower chair,bedside commode,tu bars.he has no poa.his pcp is
[facility] and he uses [facility] in [place].he has esrd and is on hd at [facility].patient has [facility] health care currently and [facility].patient shoared that he has been in and out of different hospitals [facility]patient does not want to return to rehab nd prefers to dc to home with [facility] home health.he is adm with large
left hematoma following a fall.no surgical intervention necessary.Plan is dc home with [facility].referral sent to [facility].
[2023-07-30 17:22] LABS: Glucose - Point of Care 163 mg/dl (70-99)
[2023-07-30] MEDS: MIRALAX 17 GRAMS PO (17:50)
--- NOTE | 2023-07-30 18:30 | PTCARENOTE ---
Received 1 unit PRBCs this afternoon without difficulty. C/o pain back and left thorax - IV Dilaudid given x2 this shift. lLeft thorax hard, swollen, tender. Feels unable to get oob to much pain. BP monitoring high side but just completed HD.
Feels constipated- PRN Miralax given.
[2023-07-30] MEDS: LIPITOR 80 MG PO (20:13)
[2023-07-30] MEDS: LANTUS 0.0599999999999999978 UNITS SC (21:10)
[2023-07-30] MEDS: APRESOLINE 5 MG IV (21:10)
[2023-07-30 21:20] LABS: Glucose - Point of Care 150 mg/dl (70-99)
[2023-07-31] VITALS (22 sets, daily range): BP systolic 178–203; BP diastolic 68–161; BMI 25.6
[2023-07-31] MEDS: DILAUDID 1 MG IV ×6 (00:59→23:30)
--- NOTE | 2023-07-31 01:47 | PTCARENOTE ---
pt complaining of feeling full, constipated. pt placed on bedpan and pt able to have extra large BM. pt given full bed bath after. care ongoing.
[2023-07-31 04:27] LABS: Hematocrit 24.1 % (39.0-52.0); Mean Corp Hgb Conc. 33.2 g/dL (33.0-37.0); Mean Corpuscular Hgb 27.4 pg (27.0-31.0); Mean Corpuscular Volume 82.5 fL (80.0-94.0); Platelet Count 328 10^3/uL (130-400); Red Blood Cell Count 2.92 10^6/uL (4.70-6.10); Red Cell Dist. Width 17.2 % (11.5-14.5); White Blood Cell Count 13.9 10^3/uL (4.8-10.8)
[2023-07-31] MEDS: APRESOLINE 10 MG IV ×4 (04:28→23:27)
[2023-07-31 04:37] LABS: INR 1.28; PT 16.1 Sec (11.4-14.6)
[2023-07-31 04:38] LABS: APTT 49.2 Sec (23.4-35.0)
[2023-07-31 04:53] LABS: ALT (SGPT) 11 U/L (0-50); AST (SGOT) 23 U/L (17-59); Albumin 3.1 g/dl (3.5-5.0); Alkaline Phosphatase 143 U/L (38-126); Blood Urea Nitrogen 46 mg/dl (9-20); Calcium 8.7 mg/dl (8.4-10.2); Carbon Dioxide 28 mmol/L (22-30); Chloride 93 mmol/L (98-107); Direct Bilirubin 0.8 mg/dl (0.0-0.4); Estimated Creatinine Clearance 18 ml/min; Glucose 112 mg/dl (70-99); Potassium 4.4 mmol/L (3.5-5.1); Sodium 131 mmol/L (135-145); Total Bilirubin 0.8 mg/dl (0.2-1.3); Total Protein 6.5 g/dl (6.3-8.2)
--- NOTE | 2023-07-31 04:59 | PTCARENOTE ---
pt with high BP's all night- pt given IV 5mg hydralazine with no effect on BP. notified SUPERVISOR RIDES- pt given IV dilaudid for pain. BP still high all shift- notified SUPERVISOR RIDES again, orders placed for 10ng IV hydralazine, will monitor response. pt for HD today
at noon.
--- NOTE | 2023-07-31 08:42 | W.PN.GS2 ---
Today's Communication / Plan
-
follow h/h
hold anticoagulation
Assessment / Plan
-
Assessment: 58-year-old male admitted with large left chest wall hematoma status post fall complicated by Coumadin coagulopathy.
Extends along the entire left chest within the region of the left trapezius subscapular area and continuing inferiorly immediately adjacent to the ribs and intercostal muscles but no pleural involvement. Some stranding into the subcutaneous tissues
but predominantly is deeper than superficial subcutaneous fat. No underlying rib fractures
No indications for acute surgical intervention (infection, uncontrolled bleeding, pressure necrosis on surrounding structures), following nonoperatively
AFVSS (hypertensive)
Acute blood loss anemia with h/o chronic anemia secondary to renal disease: Transfused blood: 2 units 07/28 and 1 unit 07/29
Plan:
Given acuteness of hematoma likely predominantly containing coagulated blood products would not pursue any noninvasive drainage as would be unlikely to remove significant coagulated/clot burden of hematoma and would just pose infectious risks at
this point.
Serial H&h and continue to follow INR (now subtherapeutic).
Continue transfusions and maintenance of normal coagulation profile and transfuse for acute anemia as needed.
If concerns for ongoing bleeding repeat CT chest imaging with angiogram. Initial study was CT with IV contrast and no definitive blush seen within limits of this scan.
Subjective Data
-
Date of Service: July 31, 2023
Patient seen and examined at bedside. Uncomfortable with significant pain across his left side.
Objective Data
-
Intake and Output
07/30/23 07/31/23 08/01/23
06:59 06:59 06:59
Intake Total 740 / 740 1250 / 1250
Output Total 0 / 0
Balance 740 / 740 1250 / 1250
Intake:
Oral fluids 240 / 240 1000 / 1000
Blood Product Amount Infused ( 500 / 500 250 / 250
mL)
Packed Rbc Leukoreduced Unit 250 / 250
[id number]
Packed Rbc Leukoreduced Unit 250 / 250
[id number]
Packed Rbc Leukoreduced Unit 250 / 250
[id number]
Output:
Urine, Voided 0 / 0
Vital Signs
Temp Pulse Resp BP Pulse Ox
99.4 F 88 17 193/74 92
07/31/23 03:25 07/31/23 06:00 07/31/23 06:00 07/31/23 06:00 07/31/23 06:00
Lab Results
07/31/23 04:05
Calcium 8.7 mg/dl (8.4-10.2) 07/31/23 04:05
Total Bilirubin 0.8 mg/dl (0.2-1.3) 07/31/23 04:05
Direct Bilirubin 0.8 mg/dl (0.0-0.4) H 07/31/23 04:05
AST 23 U/L (17-59) 07/31/23 04:05
ALT 11 U/L (0-50) 07/31/23 04:05
Alkaline Phosphatase 143 U/L (38-126) H 07/31/23 04:05
Total Protein 6.5 g/dl (6.3-8.2) 07/31/23 04:05
Albumin 3.1 g/dl (3.5-5.0) L 07/31/23 04:05
Physical Exam
-
Uncomfortable appearing
Edema down the left chest side wall down into the back and left flank to the level of the waist with tenderness. Mild ecchymosis noted to the lower chest wall.
[2023-07-31] MEDS: B COMPLEX w/VITAMIN C 1 CAPLET PO (09:18)
[2023-07-31] MEDS: PROTONIX 40 MG PO ×2 (09:18→20:55)
[2023-07-31] MEDS: ZOLOFT 100 MG PO (09:18)
[2023-07-31] MEDS: VISBIOME 1 CAP PO (09:18)
[2023-07-31] MEDS: RENVELA 1600 MG PO ×3 (09:18→17:34)
[2023-07-31] MEDS: NEURONTIN 300 MG PO ×2 (09:18→20:55)
[2023-07-31] MEDS: TYLENOL 650 MG PO ×2 (09:19→23:26)
[2023-07-31] MEDS: NOVOLOG FLEXPEN-LOW RESISTANCE SC ×3 (09:31→17:31)
--- NOTE | 2023-07-31 09:32 | W.PN.HOSP.TC ---
Today's Communication/Plan
-
IV hydralazine as needed. Pain control. Hemodialysis today.
Assessment / Plan
Assessment / Plan
Physical Exam
General: Well Developed, Well Nourished and No Apparent Distress
HEENT: NormoCephalic, Moist mucous membranes and Atraumatic
Respiratory: Clear
Cardiac: S1/S2, Regular Rhythm and Other (left chest wall swelling and tenderness ); No Murmur or Rub
GI: Soft, Non Tender, Non Distended and Normal Bowel Sounds; No Organomegaly
Rectal: Deferred by Provider
Musculoskeletal: No Clubbing, No Cyanosis and No Edema
Skin: No Rash
Neuro: Nonfocal/grossly intact
A/P:
# Fall resulting in large left chest wall hematoma, in the setting of Coumadin use
# Supratherapeutic INR
# Acute blood loss anemia on anemia of chronic kidney disease
-Hemoglobin 5.7 from 8.7--> hemoglobin 8 today on 07/30
-INR of 4.95--> INR 1.28 today on 07/30
-CT chest shows 20 x 20 x 8 cm solid and cystic fluid collection the left chest wall system with hematoma
-Hold Coumadin
-Vitamin K given
-Kcentra given
-2 units of blood upon admission--> repeat another 1 unit of blood on 07/29
-Tylenol, Dilaudid for pain
-cardiothoracic surgery recommending transfer to trauma center after stabilization with transfusions and correction of INR.
-General surgery consulted and discussed with surgery on 07/29--> plan to monitor conservatively and if worsening might consider repeat CT with angiogram.
-Repeat CBC and coagulation profile as needed
ESRD on hemodialysis M, W, F
-Dialysis today, last dialysis session on Thursday
-Continue sevelamer
-Nephrology consulted
Elevated blood pressure
-Start IV hydralazine as needed
-Would not start any oral antihypertensives and reevaluate after pain is controlled. Also, he is getting hemodialysis today.
Chronic HFpEF
-continue bumex
History of bilateral pleural effusions status post thoracentesis
-As per CT scan pleural effusions are improved compared to prior
History of pericardial effusion status post pericardiocentesis
Coronary artery disease
-Continue statin
Paroxysmal atrial fibrillation
-hold coumadin
Essential hypertension
-Continue clonidine, hydralazine, losartan, nifedipine
Type 2 diabetes
-Insulin sliding scale
-Continue Tresiba 6 units at night
Hyperlipidemia
-Continue Vascepa
Spinal stenosis
-Continue gabapentin, Percocet
Migraine history
History of C. difficile
Anxiety/depression
-Continue sertraline
Former smoker
Former alcohol use
Full code
DVT prophylaxis�SCDs
Renal diet
Total time spent on today's encounter was 52 minutes which included time spent in counseling the patient/family regarding diagnosis and treatment plan as listed above, goals of care, and symptom management. Case was discussed with nursing staff,
specialists, and care coordinators/case management. All labs and imaging personally reviewed by me. Remainder the time spent in detailed review of previous records, lab data, imaging, and other medical provider documentation.
Anticipated Discharge: > 48 hours
Subjective/Interval History
-
Date of Service: July 31, 2023
Patient still has significant costal pain. Some shortness of breath. Blood pressure elevated-likely pain related. No chest pain
Objective Data
-
Labs:
Laboratory Results
24 07/31/23
04:05 12:00
WBC 13.9 H
Hgb 8.0 L Pending
Hct 24.1 L Pending
Plt Count 328
PT 16.1 H
INR 1.28
APTT 49.2 H
Sodium 131 L
Potassium 4.4
Chloride 93 L
Carbon Dioxide 28
BUN 46 H
Creatinine 4.8 H*
Glucose 112 H
Calcium 8.7
Total Bilirubin 0.8
AST 23
ALT 11
Alkaline Phosphatase 143 H
Vital Signs:
Vital Signs
Temp Pulse Resp BP Pulse Ox
99.4 F 88 17 187/68 92
07/31/23 03:25 07/31/23 06:00 07/31/23 06:00 07/31/23 09:20 07/31/23 06:00
I&O
07/30/23 07/31/23 08/01/23
06:59 06:59 06:59
Intake Total 740 / 740 1250 / 1250
Output Total 0 / 0
Balance 740 / 740 1250 / 1250
[2023-07-31 09:39] LABS: Glucose - Point of Care 115 mg/dl (70-99)
[2023-07-31 12:07] LABS: Glucose - Point of Care 130 mg/dl (70-99)
[2023-07-31 13:15] LABS: Hematocrit 23.2 % (39.0-52.0); Hemoglobin 7.7 g/dL (13.0-18.0)
[2023-07-31] MEDS: RETACRIT 10000 UNITS IV (13:44)
--- NOTE | 2023-07-31 16:50 | W.PN.NEPH.HD ---
Assessment
-
- tolerating HD okay
- no complaints
Progress Note - Hemodialysis
-
Date of Service: July 31, 2023
Duration: 30 minutes and 3 hours
Potassium Bath: 3
Calcium Bath: 2.5
Opti-Dialyzer: 160
Ultrafiltration: Other
Blood Flow: 400
Dialysate Flow: 600
EPO: 10K
[2023-07-31 16:57] LABS: Glucose - Point of Care 114 mg/dl (70-99)
--- NOTE | 2023-07-31 17:05 | CM ---
Patient with Hx ESRD on HD with Dx Fall resulting in large left chest wall hematoma, Supratherapeutic INR, Acute blood loss anemia s/p transfusions. Room air. PT & OT Evals pending.
As per prior CM notes patient declines SNF for rehab if needed and wants to go home with resumption of [facility].
Plan follow up after seen by PT/OT.
Plan home with resumption [facility].
[2023-07-31] MEDS: EMLA CREAM TOPICAL (17:31)
--- NOTE | 2023-07-31 18:26 | PTCARENOTE ---
C/o pain left thorax 8/10 at rest 10/10 with moving (slightly). IV Dilaudid administered x2 with good effect. BP elevated d/w this am- IV Hydrazine ordered and given x2 this shift. HD completed. Turning as able. Left thorax is hard and
irregularly shaped. No distinct ecchymosis noted.
[2023-07-31] MEDS: LIPITOR 80 MG PO (20:54)
[2023-07-31] MEDS: LANTUS 0.0599999999999999978 UNITS SC (20:55)
[2023-07-31 21:03] LABS: Glucose - Point of Care 129 mg/dl (70-99)
[2023-08-01] VITALS (16 sets, daily range): BP systolic 100–197; BP diastolic 57–106; BMI 25.3
[2023-08-01] MEDS: DILAUDID 1 MG IV ×6 (03:35→22:07)
--- NOTE | 2023-08-01 05:00 | PTCARENOTE ---
Amos's BP continues to be elevated, discussed this with overnight CONVENTIONS ASSISTANT Kathryn; home BP meds continue to be on hold. Pt reports a slight headache, otherwise asymptomatic. PRN IV hydralazine given with no effect. PRN Dilaudid given with minimal
improvement in pain. Reports sharp pain 8/10-9/10 to left chest/back/shoulder area. Patient's pain limits his movement and breathing. Left flank area swollen and tender. Sp02 WNL on RA. Tele showing NSR. Anuric overnight. SCDs on. Educated on
importance of repositioning in bed to prevent skin breakdown; pt verbalized understanding.
Call nieto and tray table within reach.
[2023-08-01] MEDS: APRESOLINE 10 MG IV ×2 (06:21→14:35)
[2023-08-01 06:32] LABS: Hemoglobin 7.8 g/dL (13.0-18.0); Mean Corp Hgb Conc. 32.5 g/dL (33.0-37.0); Mean Corpuscular Hgb 27.7 pg (27.0-31.0); Mean Corpuscular Volume 85.1 fL (80.0-94.0); Mean Platelet Volume 8.8 fL (7.4-10.4); Platelet Count 287 10^3/uL (130-400); Red Blood Cell Count 2.82 10^6/uL (4.70-6.10); Red Cell Dist. Width 17.2 % (11.5-14.5); White Blood Cell Count 12.3 10^3/uL (4.8-10.8)
[2023-08-01 06:47] LABS: Blood Urea Nitrogen 35 mg/dl (9-20); Calcium 8.6 mg/dl (8.4-10.2); Carbon Dioxide 29 mmol/L (22-30); Chloride 93 mmol/L (98-107); Estimated Creatinine Clearance 21 ml/min; Glucose 81 mg/dl (70-99); Potassium 3.9 mmol/L (3.5-5.1); Sodium 131 mmol/L (135-145); eGFR 16.43
[2023-08-01] MEDS: NOVOLOG FLEXPEN-LOW RESISTANCE SC ×3 (08:09→17:08)
[2023-08-01 08:15] LABS: Glucose - Point of Care 73 mg/dl (70-99)
[2023-08-01] MEDS: RENVELA 1600 MG PO ×3 (08:18→17:07)
[2023-08-01] MEDS: VISBIOME 1 CAP PO (08:19)
[2023-08-01] MEDS: PROTONIX 40 MG PO ×2 (08:19→19:30)
[2023-08-01] MEDS: B COMPLEX w/VITAMIN C 1 CAPLET PO (08:19)
[2023-08-01] MEDS: BUMEX 4 MG PO (08:19)
[2023-08-01] MEDS: ZOLOFT 100 MG PO (08:19)
[2023-08-01] MEDS: NEURONTIN 300 MG PO ×2 (08:19→19:30)
--- NOTE | 2023-08-01 08:49 | W.PN.HOSP.TC ---
Today's Communication/Plan
-
Restart antihypertensives. Start Oxycodone.
Assessment / Plan
Assessment / Plan
Physical Exam
General: Well Developed, Well Nourished and No Apparent Distress
HEENT: NormoCephalic, Moist mucous membranes and Atraumatic
Respiratory: Clear
Cardiac: S1/S2, Regular Rhythm and Other (left chest wall swelling and tenderness ); No Murmur or Rub
GI: Soft, Non Tender, Non Distended and Normal Bowel Sounds; No Organomegaly
Rectal: Deferred by Provider
Musculoskeletal: No Clubbing, No Cyanosis and No Edema
Skin: No Rash
Neuro: Nonfocal/grossly intact
A/P:
# Fall resulting in large left chest wall hematoma, in the setting of Coumadin use
# Supratherapeutic INR
# Acute blood loss anemia on anemia of chronic kidney disease
-Hemoglobin 5.7 from 8.7--> hemoglobin 7.8 today on 07/31
-INR of 4.95--> INR 1.28 on 07/30
-CT chest shows 20 x 20 x 8 cm solid and cystic fluid collection the left chest wall system with hematoma
-Hold Coumadin
-Vitamin K given
-Kcentra given
-2 units of blood upon admission--> repeat another 1 unit of blood on 07/29
-Tylenol, Dilaudid for pain. Add oxycodone for pain control today on 07/31.
-cardiothoracic surgery recommending transfer to trauma center after stabilization with transfusions and correction of INR.
-General surgery consulted and discussed with surgery on 07/29--> plan to monitor conservatively and if worsening might consider repeat CT with angiogram.
-Repeat CBC and coagulation profile as needed
-PT when cleared by surgery
-Will need guidance from surgery as to when to restart anticoagulation.
ESRD on hemodialysis M, W, F
-HD per nephro
-Continue sevelamer
-Nephrology consulted
HTN
-Uncontrolled since his outpatient meds have been inadvertently on hold
-Restart all his BP meds today
-Monitor BP and adjust meds if needed
Chronic HFpEF
-continue bumex
History of bilateral pleural effusions status post thoracentesis
-As per CT scan pleural effusions are improved compared to prior
History of pericardial effusion status post pericardiocentesis
Coronary artery disease
-Continue statin
Paroxysmal atrial fibrillation
-hold coumadin
Essential hypertension
-Continue clonidine, hydralazine, losartan, nifedipine
Type 2 diabetes
-Insulin sliding scale
-Continue Tresiba 6 units at night
Hyperlipidemia
-Continue Vascepa
Spinal stenosis
-Continue gabapentin, Percocet
Migraine history
History of C. difficile
Anxiety/depression
-Continue sertraline
Former smoker
Former alcohol use
Full code
DVT prophylaxis�SCDs
Renal diet
Total time spent on today's encounter was 52 minutes which included time spent in counseling the patient/family regarding diagnosis and treatment plan as listed above, goals of care, and symptom management. Case was discussed with nursing staff,
specialists, and care coordinators/case management. All labs and imaging personally reviewed by me. Remainder the time spent in detailed review of previous records, lab data, imaging, and other medical provider documentation.
Anticipated Discharge: > 48 hours
Subjective/Interval History
-
Date of Service: August 01, 2023
Still c/o pain costal area, BP elevated. No h/a
Objective Data
-
Labs:
Laboratory Results
08/01/23
06:01
WBC 12.3 H
Hgb 7.8 L
Hct 24.0 L
Plt Count 287
Sodium 131 L
Potassium 3.9
Chloride 93 L
Carbon Dioxide 29
BUN 35 H
Creatinine 4.0 H
Glucose 81
Calcium 8.6
Vital Signs:
Vital Signs
Temp Pulse Resp BP Pulse Ox
98.5 F 96 19 196/106 95
08/01/23 07:50 08/01/23 08:00 08/01/23 08:00 08/01/23 08:00 08/01/23 08:29
I&O
07/31/23 08/01/23 08/02/23
06:59 06:59 06:59
Intake Total 1250 / 1250 900 / 900
Output Total 0 / 0 200 / 200
Balance 1250 / 1250 900 / 900 -200 / -200
--- NOTE | 2023-08-01 10:04 | PTCARENOTE ---
Addendum entered by Michelle Haynes 08/01/23 12:19:
BP meds resumed, administered as ordered- see JUN.
Original Note:
Pt very hypertensive with SBP in the 180-190's. Several home BP meds noted to be on hold. TT to Dr. Gamble re BP. No further orders received at this time.
[2023-08-01 11:59] LABS: Glucose - Point of Care 110 mg/dl (70-99)
[2023-08-01] MEDS: MIRALAX 17 GRAMS PO (12:11)
[2023-08-01] MEDS: COZAAR 100 MG PO (12:12)
[2023-08-01] MEDS: CATAPRES 0.100000000000000006 MG PO ×3 (12:12→21:58)
[2023-08-01] MEDS: APRESOLINE 100 MG PO ×2 (12:12→17:07)
[2023-08-01] MEDS: PROCARDIA XL (EXTENDED RELEASE) 60 MG PO ×2 (12:12→19:29)
--- NOTE | 2023-08-01 13:02 | W.PN.GS2 ---
Today's Communication / Plan
-
Out of bed and ambulate.
Heating pads as able.
Assessment / Plan
-
Assessment: 58-year-old male admitted with large left chest wall hematoma status post fall complicated by Coumadin coagulopathy.
Extends along the entire left chest within the region of the left trapezius subscapular area and continuing inferiorly immediately adjacent to the ribs and intercostal muscles but no pleural involvement. Some stranding into the subcutaneous tissues
but predominantly is deeper than superficial subcutaneous fat. No underlying rib fractures
No indications for acute surgical intervention (infection, uncontrolled bleeding, pressure necrosis on surrounding structures), following nonoperatively
AFVSS (hypertensive)
Acute blood loss anemia with h/o chronic anemia secondary to renal disease: Transfused blood: 2 units 07/28 and 1 unit 07/29
Plan:
- Continue nonoperative management of his chest wall and abdomen subcutaneous hematoma. Heating pads as able to help liquefy/absorb the hematoma.
- Pain control with Tylenol and Motrin, as needed Dilaudid
- Serial H&h and continue to follow INR.
- [place] diet.
- Discussed the expected natural history/healing of large hematomas. He should expect some ecchymoses to develop over the next few days and this will travel to the more dependent portions of his back and hip. Though I understand it is painful, he
should really be focusing on ambulation spending as much time as he can in the chair and walking around.
- Patient to follow-up with Dr. Swift as an outpatient.
- General surgery will follow peripherally, please call with any questions or concerns
Time Spent
Total Time Spent with Patient (in minutes): 20
Subjective Data
-
Date of Service: August 01, 2023
Interval Events:
No acute events overnight. Slept well. Pain Controlled. Denies Nausea/Vomiting, +bowel function. Tolerating diet.
Objective Data
-
Intake and Output
0408/01/23 08/02/23
06:59 06:59 06:59
Intake Total 1250 / 1250 900 / 900
Output Total 0 / 0 200 / 200
Balance 1250 / 1250 900 / 900 -200 / -200
Intake:
Oral fluids 1000 / 1000 900 / 900
Blood Product Amount Infused ( 250 / 250
mL)
Packed Rbc Leukoreduced Unit 250 / 250
[id number]
Output:
Urine, Voided 0 / 0 200 / 200
Vital Signs
Temp Pulse Resp BP Pulse Ox
98.9 F 90 14 189/92 95
08/01/23 11:47 08/01/23 12:00 08/01/23 12:00 08/01/23 12:00 08/01/23 12:00
Lab Results
08/01/23 06:01
08/01/23 06:01
Calcium 8.6 mg/dl (8.4-10.2) 08/01/23 06:01
Total Bilirubin 0.8 mg/dl (0.2-1.3) 07/31/23 04:05
Direct Bilirubin 0.8 mg/dl (0.0-0.4) H 07/31/23 04:05
AST 23 U/L (17-59) 07/31/23 04:05
ALT 11 U/L (0-50) 07/31/23 04:05
Alkaline Phosphatase 143 U/L (38-126) H 07/31/23 04:05
Total Protein 6.5 g/dl (6.3-8.2) 07/31/23 04:05
Albumin 3.1 g/dl (3.5-5.0) L 07/31/23 04:05
Physical Exam
-
GENERAL/NEURO: Awake, Alert, no distress
CHEST/abdomen: Nonlabored breathing on room air, patient has a large area of swelling over his left lateral chest wall extending down to the pelvis posteriorly to the flank. Minimal ecchymoses of the skin, no concern for skin threat. Tender to
palpation
[2023-08-01 17:07] LABS: Glucose - Point of Care 143 mg/dl (70-99)
[2023-08-01] MEDS: ROXICODONE 10 MG PO ×2 (18:10→21:58)
[2023-08-01] MEDS: TYLENOL 650 MG PO (19:30)
[2023-08-01 21:45] LABS: Glucose - Point of Care 181 mg/dl (70-99)
[2023-08-01] MEDS: LIPITOR 80 MG PO (21:58)
[2023-08-01] MEDS: LANTUS 0.0599999999999999978 UNITS SC (21:59)
--- NOTE | 2023-08-01 22:00 | PTCARENOTE ---
k-pad placed on left flank hematoma. pt continues w/ pain management 12/28 - see JUN re: administration
[2023-08-02] VITALS (14 sets, daily range): BP systolic 106–140; BP diastolic 53–79; BMI 25.6
[2023-08-02] MEDS: APRESOLINE PO (00:08)
[2023-08-02] MEDS: DILAUDID 1 MG IV ×6 (00:08→19:12)
[2023-08-02] MEDS: TYLENOL 650 MG PO (00:16)
[2023-08-02] MEDS: ROXICODONE 10 MG PO ×4 (02:46→19:11)
[2023-08-02 05:09] LABS: Hemoglobin 7.7 g/dL (13.0-18.0); Mean Corp Hgb Conc. 32.1 g/dL (33.0-37.0); Mean Corpuscular Hgb 27.4 pg (27.0-31.0); Mean Corpuscular Volume 85.4 fL (80.0-94.0); Platelet Count 346 10^3/uL (130-400); Red Blood Cell Count 2.81 10^6/uL (4.70-6.10); Red Cell Dist. Width 17.5 % (11.5-14.5); White Blood Cell Count 11.5 10^3/uL (4.8-10.8)
[2023-08-02 05:37] LABS: Blood Urea Nitrogen 49 mg/dl (9-20); Calcium 8.8 mg/dl (8.4-10.2); Carbon Dioxide 28 mmol/L (22-30); Chloride 94 mmol/L (98-107); Estimated Creatinine Clearance 16 ml/min; Glucose 155 mg/dl (70-99); Potassium 4.2 mmol/L (3.5-5.1); Sodium 129 mmol/L (135-145); eGFR 11.46
[2023-08-02 07:44] LABS: Glucose - Point of Care 177 mg/dl (70-99)
[2023-08-02] MEDS: RENVELA 1600 MG PO ×3 (08:01→16:36)
[2023-08-02] MEDS: B COMPLEX w/VITAMIN C 1 CAPLET PO (08:01)
[2023-08-02] MEDS: PROCARDIA XL (EXTENDED RELEASE) 60 MG PO ×2 (08:01→19:11)
[2023-08-02] MEDS: COZAAR 100 MG PO (08:02)
[2023-08-02] MEDS: NEURONTIN 300 MG PO ×2 (08:02→19:11)
[2023-08-02] MEDS: VISBIOME 1 CAP PO (08:02)
[2023-08-02] MEDS: CATAPRES 0.100000000000000006 MG PO ×3 (08:03→21:18)
[2023-08-02] MEDS: PROTONIX 40 MG PO ×2 (08:03→19:11)
[2023-08-02] MEDS: APRESOLINE 100 MG PO ×3 (08:04→21:18)
[2023-08-02] MEDS: ZOLOFT 100 MG PO (08:04)
[2023-08-02] MEDS: MIRALAX 17 GRAMS PO ×2 (08:06→08:07)
[2023-08-02] MEDS: BUMEX 4 MG PO (08:09)
[2023-08-02] MEDS: NOVOLOG FLEXPEN-LOW RESISTANCE 1 UNITS SC ×2 (08:47→12:53)
--- NOTE | 2023-08-02 09:34 | W.PN.HOSP.TC ---
Today's Communication/Plan
-
Pain control. Monitor hemoglobin. PT OT eval.
Assessment / Plan
Assessment / Plan
Physical Exam
General: Well Developed, Well Nourished and No Apparent Distress
HEENT: NormoCephalic, Moist mucous membranes and Atraumatic
Respiratory: Clear
Cardiac: S1/S2, Regular Rhythm and Other (left chest wall swelling and tenderness ); No Murmur or Rub
GI: Soft, Non Tender, Non Distended and Normal Bowel Sounds; No Organomegaly
Rectal: Deferred by Provider
Musculoskeletal: No Clubbing, No Cyanosis and No Edema
Skin: No Rash
Neuro: Nonfocal/grossly intact
A/P:
# Fall resulting in large left chest wall hematoma, in the setting of Coumadin use
# Supratherapeutic INR
# Acute blood loss anemia on anemia of chronic kidney disease
-Hemoglobin 5.7 from 8.7--> hemoglobin 7.7 today on 08/01
-INR of 4.95--> INR 1.28 on 07/30--> recheck in am
-CT chest shows 20 x 20 x 8 cm solid and cystic fluid collection the left chest wall system with hematoma
-Hold Coumadin
-Vitamin K given
-Kcentra given
-2 units of blood upon admission--> repeat another 1 unit of blood on 07/29
-Tylenol, Dilaudid for pain. Added oxycodone for pain control on 07/31 and pain better controlled.
-cardiothoracic surgery recommending transfer to trauma center after stabilization with transfusions and correction of INR.
-General surgery consulted and discussed with surgery on 07/29--> plan to monitor conservatively and if worsening might consider repeat CT with angiogram.
-Repeat CBC and coagulation profile as needed
-Initially ordered PT OT but surgery wanted him to rest so I cancelled, but I see latest note from surgery and now they are okay with out of bed and ambulate. PT OT eval ordered today.
-Will still need guidance from surgery as to when to restart anticoagulation. Will repeat h/h and INR in am.
ESRD on hemodialysis M, W, F
-HD per nephro
-Continue sevelamer
-Nephrology consulted
HTN
-Much better controlled with current meds.
-Continue home medication
-On Bumex, clonidine, losartan, nifedipine, and hydralazine.
Chronic HFpEF
-continue bumex and HD.
History of bilateral pleural effusions status post thoracentesis
-As per CT scan pleural effusions are improved compared to prior
History of pericardial effusion status post pericardiocentesis
Coronary artery disease
-Continue statin
Paroxysmal atrial fibrillation
-hold coumadin
Type 2 diabetes
-Insulin sliding scale
-Continue Tresiba 6 units at night
Hyperlipidemia
-Continue Vascepa
Spinal stenosis
-Continue gabapentin, Percocet
Migraine history
History of C. difficile
Anxiety/depression
-Continue sertraline
Former smoker
Former alcohol use
Full code
DVT prophylaxis�SCDs
Renal diet
Total time spent on today's encounter was 52 minutes which included time spent in counseling the patient/family regarding diagnosis and treatment plan as listed above, goals of care, and symptom management. Case was discussed with nursing staff,
specialists, and care coordinators/case management. All labs and imaging personally reviewed by me. Remainder the time spent in detailed review of previous records, lab data, imaging, and other medical provider documentation.
Anticipated Discharge: > 48 hours
Subjective/Interval History
-
Date of Service: August 02, 2023
Patient pain is improved. Shortness of breath is improved as well. Remains on room air. Overall tired today. Afebrile. No signs of active bleeding.
Objective Data
-
Labs:
Laboratory Results
08/02/23
04:18
WBC 11.5 H
Hgb 7.7 L
Hct 24.0 L
Plt Count 346 D
Sodium 129 L
Potassium 4.2
Chloride 94 L
Carbon Dioxide 28
BUN 49 H
Creatinine 5.4 H*
Glucose 155 H
Calcium 8.8
Vital Signs:
Vital Signs
Temp Pulse Resp BP Pulse Ox
97.6 F 80 12 140/65 90
08/02/23 08:13 08/02/23 08:02 08/02/23 06:00 08/02/23 08:02 08/02/23 06:00
I&O
08/01/23 08/02/23 08/03/23
06:59 06:59 06:59
Intake Total 900 / 900
Output Total 200 / 200
Balance 900 / 900 -200 / -200
[2023-08-02 11:33] LABS: Glucose - Point of Care 187 mg/dl (70-99)
--- NOTE | 2023-08-02 13:49 | W.PN.NEPH.PH ---
Today's Communication / Plan
-
- HD tomorrow
Assessment/Plan
-
IMP:
Fall resulting in large left chest wall hematoma, in the setting of Coumadin use
Acute blood loss anemia on anemia of chronic kidney disease
CT chest shows 20 x 20 x 8 cm solid and cystic fluid collection the left chest wall system with hematoma
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
Chronic HFpEF
History of bilateral pleural effusions status post thoracentesis
History of pericardial effusion status post pericardiocentesis
Coronary artery disease
Paroxysmal atrial fibrillation
Essential hypertension
DM with multiple microvascular complications
Hyperlipidemia
Spinal stenosis
Migraine history
History of C. difficile
Anxiety/depression
L radial AVF
Severe lumbar spinal stenosis at multiple levels
Chronic low back pain with ambulatory dysfunction
Hyponatremia, hypervolemic
Plan:
A/w fall 2day [employer], found to have large left chest wall hematoma
Acute blood loss anemia
will plan HD tomorrow with out heparin
hemodynamics stable
held AC, vit K and Kcentra given
would hold antiHTN meds today
renal diet and FR when diet starts
-
-
Date of Service: August 02, 2023
CC / HPI / ROS
-
Chief Complaint:
ESRD on HD
History of Present Illness:
fall and chest wall hematoma
Review of Systems:
pain
Labs
-
Labs:
WBC 11.5 10^3/uL (4.8-10.8) H 08/02/23 04:18
RBC 2.81 10^6/uL (4.70-6.10) L 08/02/23 04:18
Hgb 7.7 g/dL (13.0-18.0) L 08/02/23 04:18
Hct 24.0 % (39.0-52.0) L 08/02/23 04:18
Plt Count 346 10^3/uL (130-400) D 08/02/23 04:18
Sodium 129 mmol/L (135-145) L 08/02/23 04:18
Potassium 4.2 mmol/L (3.5-5.1) 08/02/23 04:18
Chloride 94 mmol/L (98-107) L 08/02/23 04:18
Carbon Dioxide 28 mmol/L (22-30) 08/02/23 04:18
BUN 49 mg/dl (9-20) H 08/02/23 04:18
Creatinine 5.4 mg/dL (0.7-1.3) H* 08/02/23 04:18
eGFR 11.46 08/02/23 04:18
Glucose 155 mg/dl (70-99) H 08/02/23 04:18
Calcium 8.8 mg/dl (8.4-10.2) 08/02/23 04:18
Albumin 3.1 g/dl (3.5-5.0) L 07/31/23 04:05
Physical Exam
-
Vital Signs:
Vital Signs
Temp Pulse Resp BP Pulse Ox
97.9 F 67 12 108/57 92
08/02/23 11:28 08/02/23 10:00 08/02/23 10:00 08/02/23 10:00 08/02/23 10:00
Cardiovascular:: Regular rate and rhythm
Respiratory:: Bilateral: Coarse
Lung Excursion:: Abnormal
Abdomen:: Nontender and Soft
Bowel Sounds:: Normal
Extremity Edema:: +1: Bilateral:
Alfred Catheter: No
[2023-08-02] MEDS: NOVOLOG FLEXPEN-LOW RESISTANCE 2 UNITS SC (17:05)
[2023-08-02 17:16] LABS: Glucose - Point of Care 217 mg/dl (70-99)
--- NOTE | 2023-08-02 21:00 | PTCARENOTE ---
encourage pt to continue to use k-pad. offered to get pt OOB declined. reminded pt he needs to start moving. will continue to attempt to encourage pt.
[2023-08-02] MEDS: LANTUS 0.0599999999999999978 UNITS SC (21:17)
[2023-08-02] MEDS: LIPITOR 80 MG PO (21:17)
[2023-08-02 21:24] LABS: Glucose - Point of Care 264 mg/dl (70-99)
[2023-08-03] VITALS (56 sets, daily range): BP systolic 115–158; BP diastolic 47–78; PULSE 79; O2SAT 93–98; BMI 25.8
[2023-08-03] MEDS: DILAUDID 1 MG IV ×3 (02:06→22:56)
[2023-08-03] MEDS: ZOFRAN 4 MG PO (03:45)
[2023-08-03 03:49] LABS: Hematocrit 23.8 % (39.0-52.0); Mean Corp Hgb Conc. 33.6 g/dL (33.0-37.0); Mean Corpuscular Hgb 27.4 pg (27.0-31.0); Mean Corpuscular Volume 81.5 fL (80.0-94.0); Mean Platelet Volume 9.3 fL (7.4-10.4); Platelet Count 349 10^3/uL (130-400); Red Blood Cell Count 2.92 10^6/uL (4.70-6.10); Red Cell Dist. Width 17.8 % (11.5-14.5); White Blood Cell Count 13.3 10^3/uL (4.8-10.8)
[2023-08-03 03:57] LABS: INR 1.46; PT 17.6 Sec (11.4-14.6)
[2023-08-03 04:33] LABS: ALT (SGPT) 13 U/L (0-50); AST (SGOT) 25 U/L (17-59); Albumin 3.2 g/dl (3.5-5.0); Alkaline Phosphatase 134 U/L (38-126); Blood Urea Nitrogen 62 mg/dl (9-20); Calcium 8.9 mg/dl (8.4-10.2); Carbon Dioxide 26 mmol/L (22-30); Chloride 92 mmol/L (98-107); Estimated Creatinine Clearance 13 ml/min; Glucose 173 mg/dl (70-99); Potassium 4.8 mmol/L (3.5-5.1); Sodium 130 mmol/L (135-145); Total Bilirubin 0.8 mg/dl (0.2-1.3); Total Protein 6.7 g/dl (6.3-8.2); eGFR 9.17
--- NOTE | 2023-08-03 06:53 | W.PN.HOSP.TC ---
Today's Communication/Plan
-
.
Assessment / Plan
Assessment / Plan
Physical Exam
General: Well Developed, Well Nourished and No Apparent Distress
HEENT: Normocephalic, Moist mucous membranes and Atraumatic
Respiratory: Clear
Cardiac: S1/S2, Regular Rhythm and Other (left chest wall swelling and tenderness ); No Murmur or Rub
GI: Soft, epigastric tenderness.
Rectal: no rectal bleeding
Musculoskeletal: No Clubbing, No Cyanosis and No Edema
Skin: No Rash
Neuro: Nonfocal/grossly intact
Psych: calm, no agitation
A/P:
# Fall resulting in large left chest wall hematoma, in the setting of Coumadin use
# Supratherapeutic INR
# Acute blood loss anemia on anemia of chronic kidney disease
Patient denies sob or chest pain
-Hemoglobin 5.7 from 8.7--> hemoglobin 7.7
HGB at 8 today
-INR of 4.95--> INR 1.28 on 07/30--> INR 1.4 now
-CT chest showed 20 x 20 x 8 cm solid and cystic fluid collection the left chest wall system with hematoma
-Held Coumadin
-Vitamin K given
-Kcentra given
-2 units of blood upon admission--> repeat another 1 unit of blood on 07/29
-Tylenol, Dilaudid for pain. Added oxycodone for pain control on 07/31 and pain better controlled.
-General surgery consulted and discussed with surgery on 07/29--> plan to monitor conservatively and if worsening might consider repeat CT with angiogram.
- PT/OT as tolerated
-Will still need guidance from surgery as to when to restart anticoagulation. Will repeat h/h and INR in am.
# Coffee-ground emesis overnight
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 He is on Protonix twice daily at home. He still takes oral Protonix. No abdominal pain but abdominal tenderness in epigastric area noted this morning. He
is hemodynamic stable. Will keep him n.p.o. Discussed with gastroenterology. Change Protonix to IV. Repeat H&H in few hours
Appreciate GI input
#ESRD on hemodialysis M, W, F
-HD per nephro
-Continue sevelamer
-Appreciate nephrology
#HTN
While n.p.o., change oral medications to IV
-Patient takes Bumex, clonidine, losartan, nifedipine, and hydralazine.
#Chronic HFpEF
-continue Bumex and HD when able.
History of bilateral pleural effusions status post thoracentesis
-As per CT scan pleural effusions are improved compared to prior
#History of pericardial effusion status post pericardiocentesis
#Hyponatremia
Mild, no confusion
#Coronary artery disease
-Continue statin
#Paroxysmal atrial fibrillation
-hold Coumadin
#Type 2 diabetes
-Insulin sliding scale
-Continue Tresiba 6 units at night
Hyperlipidemia
-Continue Vascepa
Spinal stenosis
-Continue gabapentin, Percocet
Migraine history
History of C. difficile
Anxiety/depression
-Continue sertraline
Former smoker
Former alcohol use
Full code
DVT prophylaxis�SCDs
Renal diet
Total time spent on today's encounter was 57 minutes which included time spent in counseling the patient/family regarding diagnosis and treatment plan as listed above, goals of care, and symptom management. Case was discussed with nursing staff,
specialists, and care coordinators/case management. All labs and imaging personally reviewed by me. Remainder the time spent in detailed review of previous records, lab data, imaging, and other medical provider documentation.
Anticipated Discharge: > 48 hours
Subjective/Interval History
-
Date of Service: August 03, 2023
No abd pain
No chest pain
No sob
Night team: coffee ground emesis over night two times in a cup. Pt reports epigastric tenderness on exam
Objective Data
-
Labs:
Laboratory Results
08/03/23
03:23
WBC 13.3 H
Hgb 8.0 L
Hct 23.8 L
Plt Count 349
PT 17.6 H
INR 1.46
Sodium 130 L
Potassium 4.8
Chloride 92 L
Carbon Dioxide 26
BUN 62 H
Creatinine 6.5 H*
Glucose 173 H
Calcium 8.9
Total Bilirubin 0.8
AST 25
ALT 13
Alkaline Phosphatase 134 H
Vital Signs:
Vital Signs
Temp Pulse Resp BP Pulse Ox
98.7 F 75 20 131/66 94
08/03/23 03:16 08/03/23 06:00 08/03/23 06:00 08/03/23 06:00 08/03/23 06:00
I&O
08/01/23 08/02/23 08/03/23
06:59 06:59 06:59
Intake Total 900 / 900 400 / 400 300 / 300
Output Total 200 / 200
Balance 900 / 900 200 / 200 300 / 300
--- NOTE | 2023-08-03 06:54 | W.PN.UPDATE ---
Update Note
Progress Note Update
Nursing with some nausea overnight and vomited about 30 ccs of what appeared to be coffee ground emesis. He feels better. VSS as well as HGB. NPO now.
--- NOTE | 2023-08-03 07:30 | PTCARENOTE ---
pt reported feeling nauseous at 0300 - informed [employer]SE HEL[employer] Mahnaz Cordero obtained 1x dose of Zofran - see mar. pt had a small amount of emesis on his grown. pt fell asleep. at 0630 pt is having coffee ground emesis. about 30ml. hgb=8.0 informed [employer]INE [employer]SE HELPER Manhaz Cordero -
pt made NPO. Informed am MIGUEL Silverio and and Dr. Rodas at bedside with pt. AM MIGUEL Silverio taking over care.
--- NOTE | 2023-08-03 07:40 | PTCARENOTE ---
Dr. Rodas to room to see patient. Patient ordered NPO, no oral medications. GI consult ordered.
[2023-08-03 08:17] LABS: Glucose - Point of Care 140 mg/dl (70-99)
[2023-08-03] MEDS: NOVOLOG FLEXPEN-LOW RESISTANCE SC ×3 (08:27→18:48)
[2023-08-03] MEDS: PROTONIX IV 40 MG IV ×2 (08:28→20:38)
[2023-08-03] MEDS: NSS (PRESERVATIVE FREE) 10 ML IV ×2 (08:28→20:38)
[2023-08-03] MEDS: FLUSH (NSS) 2 FLUSH IV (08:30)
--- NOTE | 2023-08-03 10:19 | CON.GI ---
Addendum entered and electronically signed by Connie Perez Do, MD 08/03/23 12:24:
I saw and examined the patient.
The PHYSICAL THERAPIST CLINIC DIRECTOR's note was reviewed and I agree with the note.
Comment: 58yo M with h/o pAfib on coumadin, Afib and ESRD on HD who was admitted for mechanical fall with L sided chest wall hematoma with anemia Hbg 5.7 in setting of supratherapeutic INR 4.95. GI consulted for coffee ground emesis overnight. He
tells me that he has chronic reflux and possible Dunlap's. Also chronic iron def anemia and was hospitalized at [facility] end of Apr 2023 with EGD/colonoscopy that was not remarkable. I do not records of this. He was advised to undergo video
capsule at [facility] but has not yet done so. He also reports constipation without BM in past 4-5 days. Exam vitals stable. obese, mildly distended, NABS. Labs reviewed Hbg up to 8 after vomiting episode. AXR with large amount of fecal material
throughout the colon. Progressed.
Impression
- Coffee ground emesis and severe constipation
Differential includes gastritis, esophagitis, hiatal hernia.
EGD done Apr 2023 at [facility]
- Chronic iron def anemia
- GERD
- Mechanical fall
- Chest wall hematoma
- Chronic anticoagulation with supratherapeutic INR on admission
- Afib
- HTN
- CAD
- ESRD on HD
- CHF
- Pleural effusion
- Spinal stenosis
Recommendations
- NPO for now
- Protonix 40mg IV BID
- Serial H/H 1pm lab draw pending
- Milk of molasses enema x1 now. Ducolax 10mg at 6pm
- Monitor for stool output
- If improves consider advancement to CLD later today
- Zofran PRN nausea
- Obtain records of EGD/colon from [facility] done 04/2023
Above plan d/w RN. Will follow with you
Will follow with you
Original Note:
Consultation
-
Date/Time Consultation Requested: 08/03/23 @ 07:56
Date/Time Consultation Performed: 08/03/23 @ 10:30
Requesting Provider: Dr. Rodas
Performing Provider: MICHELLE Mccullough; Dr. Connie Lyles
Reason for Consultation: vomiting
Medical History
Chief Complaint / HPI
Chief Complaint: fall, left sided chest wall pain
History of Present Illness:
The patient is a 58-year-old male with a past medical history significant for paroxysmal atrial fibrillation on Coumadin, CAD, end-stage renal disease on hemodialysis, ?chronic iron deficiency anemia, heart failure with preserved ejection fraction,
history of pleural effusions, hypertension, spinal stenosis, GERD, ?Dunlap's Esophagus, who presented to the emergency room on 07/29/2023 with complaints of a fall with left-sided chest wall pain. Upon admission, the patient reports that he had
sustained a fall at home after trying to move his mattress which fell on top of him. He was evaluated in the ER and was found to have a large left chest wall hematoma of 20 x [address] imaging in the setting of Coumadin use. On admission his
hemoglobin was 5.7 along with a supratherapeutic INR of 4.95. He received vitamin K, Kcentra, and was transfused with 3 units of packed red blood cells with improvement of his hemoglobin to 8.0, where has been relatively stable in that range. His
INR did also improve, with most recent INR level of 1.46. Over the past several days he has been monitored very closely with general surgery following, who advised on conservative management unless worsening symptoms, then to consider CT angiogram.
We are being asked to evaluate this morning as patient reportedly had an episode of nausea with vomiting of coffee-ground emesis of about 30 cc. The patient reports that since being hospitalized he has been constipated. He notes he typically does
not suffer from constipation and takes a stool softener daily, but since he has had less mobility he has not moved his bowels. He notes that he was given a dose of MiraLAX but this did not help. His last bowel movement was on which was
very hard. He denies any melena or hematochezia. He reports that he had been eating well up until this morning, with his last meal at dinnertime yesterday evening around 5:30 PM. He does admit to some nausea currently and has been vomiting up
very small amounts of coffee-ground appearing emesis. He reports he does follow with [facility], but was hospitalized several months ago for anemia and underwent EGD and colonoscopy at that time. He mentions a history of Dunlap's esophagus which
he takes PPI for but overall no reported significant findings on his EGD or colonoscopy to explain his anemia/heme positive stool at that time and was recommended to have a capsule study, which was supposed to be done this week. He does admit to
some abdominal tenderness generalized throughout his abdomen along with left chest wall pain from the hematoma. He denies any significant heartburn symptoms. He denies any fevers, chills, chest pain, or shortness of breath. His hemoglobin has
remained stable and he has had no further episodes of vomiting since this initial episode. We do not have records from his [facility] hospitalization. He denies any family history of colon cancer or other GI cancers or disorders.
Past Medical History
Past Medical History: Arrhythmias (Paroxysmal atrial fibrillation on Coumadin), CAD, CHF, GERD (? Dunlap's esophagus), HTN, Renal Failure (On hemodialysis Thursday) and Other (Spinal stenosis, chronic iron deficiency anemia, pleural
effusion)
Past Surgical History: Other (Left lower arm AV fistula)
Social History
Tobacco: Former Smoker
Alcohol: None
Drug: None
Family History
Family History: Reviewed & Not Pertinent
Allergies / Home Medications
Allergy/AdvReac Type Severity Reaction Status Date / Time
morphine Allergy Unknown Verified 07/29/23 14:37
�Medication �Instructions �Recorded
atorvastatin 80 mg tablet 80 mg PO HS High Cholesterol 12/23/22
clonidine HCl 0.1 mg tablet 0.1 mg PO TID Blood Pressure 12/23/22
icosapent ethyl 1 gram capsule 2 g PO BID High Cholesterol 12/23/22
(Vascepa)
lidocaine-prilocaine 2.5 %-2.5 % 1 applic topical MOWEFR port access 12/23/22
topical cream
erenumab-aooe 70 mg/mL 70 mg SC MONTHLY migraine 02/05/23
subcutaneous auto-injector
(Aimovig Autoinjector)
nifedipine 60 mg tablet,extended 60 mg PO BID Blood Pressure #0 tabs 02/13/23
release
gabapentin 300 mg capsule 300 mg PO BID Pain 03/30/23
insulin aspart U-100 100 unit/mL 1 sliding scale dose SC ACHS 03/30/23
(3 mL) subcutaneous pen (Novolog diabetes
FlexPen U-100 Insulin aspart)
lactobacillus combination no.4 3 3,000 mmu cells PO DAILY probiotic 03/30/23
billion cell capsule (Probiotic)
sevelamer carbonate 800 mg tablet 1,600 mg PO MEALS Kidney Disease 03/30/23
polyethylene glycol 3350 17 gram 17 g PO DAILY PRN constipation #0 04/10/23
oral powder packet (HealthyLax) ea
bumetanide 2 mg tablet 4 mg PO SUTUTHSA Fluid 07/29/23
Retention/Swelling
hydralazine 100 mg tablet 100 mg PO TID Blood Pressure 07/29/23
insulin degludec 100 unit/mL 6 unit SC HS Diabetes 07/29/23
subcutaneous solution (Tresiba
U-100 Insulin)
losartan 100 mg tablet 100 mg PO DAILY Blood Pressure 07/29/23
oxycodone-acetaminophen 5 mg-325 1 tab PO Q8H PRN moderate pain 07/29/23
mg tablet
pantoprazole 40 mg tablet,delayed 40 mg PO BID Gastrointestinal Issue 07/29/23
release
sertraline 100 mg tablet 100 mg PO DAILY Mental 07/29/23
Health/Anxiety
vitamin B complex-vitamin C 100 1 tab PO DAILY Supplement 07/29/23
mg-folic acid 1 mg tablet
(Dialyvite)
warfarin 6 mg tablet 6 mg PO QPM Blood Clot 07/29/23
Prevention/Tx
Review of Systems
-
History Source: Patient
Constitutional: Reports No Symptoms
EENT: Reports No Symptoms
Respiratory: Reports No Symptoms
Cardiac: Reports No Symptoms
Abdomen/GI: Reports Abdominal Pain, Nausea, Vomiting and Constipated
: Reports No Symptoms
Musculoskeletal: Reports Other (left chest wall/left back pain)
Skin: Reports No Symptoms
Neurological: Reports No Symptoms
Vital Signs
Temp Pulse Resp BP Pulse Ox
99.1 F 75 20 131/66 94
08/03/23 07:14 08/03/23 06:00 08/03/23 06:00 08/03/23 06:00 08/03/23 06:00
Physical Exam
Exam
General: Well Developed and Other (chronically ill appearing male in mild distress due to left sided chest/back pain from hematoma)
HEENT: Normocephalic, Anicteric and Atraumatic
Respiratory: Clear
Cardiac: S1/S2 and Regular Rhythm
GI: Soft, Tender (generalized tenderness) and Distended (mildly distended but soft)
Rectal: Deferred by Provider
Musculoskeletal: No Edema and Other (Left upper lateral chest wall with ecchymosis/hematoma)
Skin: Warm and Dry
Neuro: Awake, Alert, Oriented and AO x 3
Psych: Calm
Results
WBC 13.3 10^3/uL (4.8-10.8) H 08/03/23 03:23
Hgb 8.0 g/dL (13.0-18.0) L 08/03/23 03:23
Hct 23.8 % (39.0-52.0) L 08/03/23 03:23
MCV 81.5 fL (80.0-94.0) 08/03/23 03:23
Plt Count 349 10^3/uL (130-400) 08/03/23 03:23
Absolute Neuts (auto) 9.4 10^3/uL (1.4-6.5) H 07/30/23 05:27
PT 17.6 Sec (11.4-14.6) H 08/03/23 03:23
INR 1.46 08/03/23 03:23
APTT 49.2 Sec (23.4-35.0) H 07/31/23 04:05
Sodium 130 mmol/L (135-145) L 08/03/23 03:23
Potassium 4.8 mmol/L (3.5-5.1) 08/03/23 03:23
Chloride 92 mmol/L (98-107) L 08/03/23 03:23
Carbon Dioxide 26 mmol/L (22-30) 08/03/23 03:23
BUN 62 mg/dl (9-20) H 08/03/23 03:23
Creatinine 6.5 mg/dL (0.7-1.3) H* 08/03/23 03:23
Calcium 8.9 mg/dl (8.4-10.2) 08/03/23 03:23
Total Bilirubin 0.8 mg/dl (0.2-1.3) 08/03/23 03:23
AST 25 U/L (17-59) 08/03/23 03:23
ALT 13 U/L (0-50) 08/03/23 03:23
Alkaline Phosphatase 134 U/L (38-126) H 08/03/23 03:23
Diagnostic Image Results:
07/29/2023 CT chest: IMPRESSION: 'Huge 20 x 20 x 8 cm solid and cystic fluid collection in the left chest wall most consistent with the history of recent fall and hematoma. No definite acute hemorrhage into the fluid collection. These findings were
discussed with Dr. Aaron in the emergency room at 4:35 PM. No definite adjacent fracture. No pneumothorax. Bilateral pleural effusions right greater than left, actually improved compared to the previous CT scan 4 months ago. Basilar atelectasis and
scarring. Moderate degenerative change in the spine. Probable simple cyst exophytic in the superior aspect of the right kidney versus 2 cm adenoma.'
Prior GI Procedures:
EGD: at [facility] 2-3 months ago, unrevealing per pt (record not available to me)
Colonoscopy: at [facility] 2-3 months ago per pt unrevealing (record not available to me)
Assessment / Plan
-
The patient is a 58-year-old male with a past medical history significant for paroxysmal atrial fibrillation on Coumadin, CAD, end-stage renal disease on hemodialysis, chronic iron deficiency anemia, heart failure with preserved ejection fraction,
history of pleural effusions, hypertension, spinal stenosis, GERD, ?Dunlap's Esophagus, who presented to the emergency room on 07/29/2023 with complaints of a fall with left-sided chest wall pain found to have a large left chest wall hematoma along
with significant anemia likely exacerbated on secondary to Coumadin use and supratherapeutic INR. He is being monitored by general surgery, but has been stable in regards to this. We were asked to evaluate as patient had reportedly an episode of
nausea with vomiting of 30 cc of coffee-ground emesis. His hemoglobin was stable as of this morning at 8.0. Small volume emesis noted at the bedside appearance of coffee ground ~20 cc.
Problem list:
-Large left chest wall hematoma
-Nausea, coffee-ground emesis
-Hyponatremia
-Leukocytosis, stable
-hx acute constipation
-History of paroxysmal atrial fibrillation on Coumadin with supratherapeutic INR on admission
-Acute on chronic normocytic anemia, status post 3 units of packed red blood cells
-History of GERD, ?Dunlap's esophagus
Other pertinent medical history:
-End-stage renal disease on hemodialysis
-Heart failure with preserved ejection fraction
-Hypertension
-Spinal stenosis
-CAD
Recommendations:
-Etiology of coffee-ground emesis possibly secondary to constipation versus erosive gastritis versus upper GI bleed on Coumadin versus other.
-Will check XR of the abdomen to rule out obstructive process v fecal burden
-If significant stool burden we will start on a bowel regimen. May require enema to get things moving along with adding an oral regimen
-Trend H&H and transfuse to keep hemoglobin greater than 7. Repeat pending for 1pm
-Continue to hold Coumadin
-N.p.o. pending x-ray
-General surgery is following
-Limit use of narcotics as able
-PRN antiemetics as per hospitalist
-Will obtain records from [facility] for EGD/colonoscopy
-Continue PPI BID
-Monitor electrolytes as per hospitalist
-Will follow
-
-
Thank you for consultation and allowing me to participate in the patient's care. Please call the forestry conservation worker GI physician during the after hours with any questions or concerns.
[2023-08-03] MEDS: EMLA CREAM 1 GRAM TOPICAL (10:36)
--- NOTE | 2023-08-03 12:24 | W.PN.UPDATE ---
Update Note
Progress Note Update
Billing purposes
[2023-08-03 12:42] LABS: Glucose - Point of Care 143 mg/dl (70-99)
[2023-08-03 12:46] LABS: Iron 42 ug/dl (49-181)
[2023-08-03 12:57] LABS: Percent Saturation 26 % (20-50); Total Iron Binding Capacity 158 ug/dl (261-462)
--- NOTE | 2023-08-03 13:02 | W.PN.NEPH.HD ---
Assessment
-
Patient seen on dialysis
Systolic blood pressure 128 ultrafiltration of 2.5 kg
No heparin in setting of possible GI bleeding
Patient for enema after dialysis complaint as per review of abdominal x-ray and GI recommendation
Progress Note - Hemodialysis
-
Date of Service: August 03, 2023
Duration: 30 minutes and 3 hours
Potassium Bath: 2
Calcium Bath: 2.5
Opti-Dialyzer: 160
Ultrafiltration: Other (2.5 kg)
Blood Flow: 400
Dialysate Flow: 600
Heparin: None (GI bleed)
EPO: 10K
[2023-08-03] MEDS: RETACRIT 10000 UNITS IV (13:49)
--- NOTE | 2023-08-03 14:06 | PTCARENOTE ---
Patient receiving HD currently. Milk of molasses enema ordered by GI. made aware that can't be given until HD is completed.
[2023-08-03 14:54] LABS: Folate > 20.0 ng/ml (2.76-20); Vitamin B12 858 pg/ml (239-931)
[2023-08-03 17:08] LABS: Hemoglobin 7.2 g/dL (13.0-18.0)
--- NOTE | 2023-08-03 17:25 | PTCARENOTE ---
Milk of molasses enema given after HD. No BM yet. Patient remains NPO. No emesis since the morning before HD. Vital signs remain stable. Will monitor.
[2023-08-03 18:03] LABS: Glucose - Point of Care 142 mg/dl (70-99)
[2023-08-03] MEDS: DULCOLAX 10 MG RECTAL (18:49)
[2023-08-03 22:26] LABS: Glucose - Point of Care 137 mg/dl (70-99)
[2023-08-03] MEDS: LANTUS SC (22:54)
[2023-08-03] MEDS: LANTUS 0.0400000000000000008 UNITS SC (22:54)
[2023-08-04] VITALS (18 sets, daily range): BP systolic 149–190; BP diastolic 65–83; BMI 24.8
[2023-08-04 00:23] LABS: Glucose - Point of Care 134 mg/dl (70-99)
[2023-08-04] MEDS: DILAUDID 1 MG IV ×4 (02:56→21:34)
--- NOTE | 2023-08-04 03:48 | PTCARENOTE ---
Received pt at start of shift. NO BM OVERNIGHT. aaox3, flat affect. c/o pain in L back/side. Dilaudid given, pt remains laying on R side, refuses to turn. Pt is now NPO and had 6U lantus ordered, pt only wanted 4U, contacted [facility], order changed to
4U & put on hold. no bm produced after MOM & suppository. Hypoactive BS. Pt is not moving around at all & strong pain meds. Will continue to monitor, call nieto in reach.
--- NOTE | 2023-08-04 06:32 | W.PN.HOSP.TC ---
Addendum entered and electronically signed by Lotus Rodas MD 08/04/23 12:38:
Addendum
CT chest, decrease size of hematoma and HGB stable at 8. continue with Incentive spirometry to avoid further atelectasis
# Resume BP meds as tolerated..
# Renally adjust the gabapentin
End
Original Note:
Today's Communication/Plan
-
.
Assessment / Plan
Assessment / Plan
Physical Exam
General: No Apparent Distress
HEENT: Normocephalic, Moist mucous membranes and Atraumatic
Respiratory: Clear
Cardiac: S1/S2, Regular Rhythm and Other (left chest wall swelling and tenderness ); No Murmur or Rub
GI: Soft, no epigastric tenderness.
Rectal: no rectal bleeding
Musculoskeletal: No Clubbing, No Cyanosis and No Edema
Skin: No Rash
Neuro: Nonfocal/grossly intact
Psych: calm, no agitation
A/P:
# Fall resulting in large left chest wall hematoma, in the setting of Coumadin use
# Supratherapeutic INR
# Acute blood loss anemia on anemia of chronic kidney disease
Patient denies sob or chest pain
Hemoglobin relatively stabilized but dipped down after GI bleeding
Status post reversal of INR with Kcentra and vitamin K. Last INR was 1.4
-CT chest showed 20 x 20 x 8 cm solid and cystic fluid collection the left chest wall system with hematoma. Will repeat CAT scan of the chest to compare
Status post 3 units of blood transfusions
-Tylenol, Dilaudid for pain. Added oxycodone for pain control on 07/31 and pain better controlled.
-General surgery consulted and discussed with surgery on 07/29--> plan to monitor conservatively and if worsening might consider repeat CT with angiogram.
- PT/OT as tolerated
-Appreciate surgery input
# Coffee-ground emesis seems to stop. Patient is feeling better, no nausea. No abdominal pain. Would like to eat,
Try to advance to liquid diet
Continue with PPI twice daily
Suspect upper GI bleeding that resolved
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
Appreciate GI input
# Constipation
Bowel regimen did not help with molasses and MiraLAX
Will do magnesium citrate today. Patient denied abdominal bloating but x-ray showed colon full of stool
#ESRD on hemodialysis M, W, F
-HD per nephro
-Continue sevelamer
-Appreciate nephrology
#HTN
Resume oral medication
-Patient takes Bumex, clonidine, losartan, nifedipine, and hydralazine.
#Chronic HFpEF
-continue Bumex and HD when able.
History of bilateral pleural effusions status post thoracentesis
-As per CT scan pleural effusions are improved compared to prior
#History of pericardial effusion status post pericardiocentesis
#Hyponatremia
Mild, no confusion
#Coronary artery disease
-Continue statin
#Paroxysmal atrial fibrillation
-hold Coumadin
#Type 2 diabetes
-Insulin sliding scale
-Continue Tresiba 6 units at night
Hyperlipidemia
-Continue Vascepa
Spinal stenosis
-Continue gabapentin, Percocet
Migraine history
History of C. difficile
Anxiety/depression
-Continue sertraline
Former smoker
Former alcohol use
Full code
DVT prophylaxis�SCDs
Total time spent to see patient, examine the patient on the floor, review data and lab results, discuss treatment plan with patient, nursing staff around 55 minutes
Anticipated Discharge: > 48 hours
Subjective/Interval History
-
Date of Service: August 04, 2023
he feels better, no nausea, feels hungry
no abd pain
Objective Data
-
Vital Signs:
Vital Signs
Temp Pulse Resp BP Pulse Ox
97.7 F 74 15 160/72 95
08/04/23 03:24 08/04/23 02:00 08/04/23 02:00 08/04/23 02:00 08/03/23 20:00
I&O
08/02/23 08/03/23 08/04/23
06:59 06:59 06:59
Intake Total 400 / 400 300 / 300
Output Total 200 / 200
Balance 200 / 200 300 / 300
[2023-08-04 06:43] LABS: Glucose - Point of Care 73 mg/dl (70-99)
--- NOTE | 2023-08-04 07:45 | PTCARENOTE ---
Dr. Rodas to room to see patient. Advanced to clear liquids. No emesis overnight. Patient currently off unit for chest CT to evaluate left flank hematoma.
--- NOTE | 2023-08-04 08:58 | W.PN.GS2 ---
Today's Communication / Plan
-
-- No changes from General Surgery perspective as of now
-- F/u Repeat CT read
-- F/u CBC
Assessment / Plan
-
Assessment: 58-year-old male admitted with large left chest wall hematoma status post fall complicated by Coumadin coagulopathy.
No indications for acute surgical intervention (infection, uncontrolled bleeding, pressure necrosis on surrounding structures), following nonoperatively
AFVSS (hypertensive)
Acute blood loss anemia with h/o chronic anemia secondary to renal disease
Repeat CT chest pending.
Plan:
- F/u repeat CT
- Repeat CBC pending
- Continue nonoperative management of his chest wall and abdomen subcutaneous hematoma. Heating pads as able to help liquefy/absorb the hematoma.
- Pain control with Tylenol and Motrin, as needed Dilaudid
- [place] diet.
- Discussed the expected natural history/healing of large hematomas. He should expect some ecchymoses to develop over the next few days and this will travel to the more dependent portions of his back and hip. Though I understand it is painful, he
should really be focusing on ambulation spending as much time as he can in the chair and walking around.
- Patient to follow-up with Dr. Swift as an outpatient.
- General surgery will follow peripherally, please call with any questions or concerns
Subjective Data
-
Date of Service: August 04, 2023
No new complaints. Denies any worsening pain or increased swelling. No dizziness or lightheadedness.
Objective Data
-
Intake and Output
08/03/23 08/04/23 08/05/23
06:59 06:59 06:59
Intake Total 300 / 300
Balance 300 / 300
Intake:
Oral fluids 300 / 300
Vital Signs
Temp Pulse Resp BP Pulse Ox
98.0 F 77 17 166/82 95
08/04/23 07:19 08/04/23 06:00 08/04/23 06:00 08/04/23 06:00 08/03/23 20:00
Calcium 8.9 mg/dl (8.4-10.2) 08/03/23 03:23
Total Bilirubin 0.8 mg/dl (0.2-1.3) 08/03/23 03:23
Direct Bilirubin 0.8 mg/dl (0.0-0.4) H 07/31/23 04:05
AST 25 U/L (17-59) 08/03/23 03:23
ALT 13 U/L (0-50) 08/03/23 03:23
Alkaline Phosphatase 134 U/L (38-126) H 08/03/23 03:23
Total Protein 6.7 g/dl (6.3-8.2) 08/03/23 03:23
Albumin 3.2 g/dl (3.5-5.0) L 08/03/23 03:23
Physical Exam
-
Gen: NAD
Chest: LEFT chest/flank with swelling and mild ecchymosis, extends from chest down flank to ASIS, tender to palpation, slightly firm, no erythema, no necrosis of skin
[2023-08-04] MEDS: FLUSH (NSS) 3 FLUSH IV (09:49)
[2023-08-04] MEDS: APRESOLINE 10 MG IV ×2 (09:52→18:15)
[2023-08-04] MEDS: PROTONIX IV 40 MG IV ×2 (09:54→20:22)
[2023-08-04] MEDS: NSS (PRESERVATIVE FREE) 10 ML IV ×2 (09:54→20:21)
[2023-08-04] MEDS: CITROMA 300 ML PO (10:04)
[2023-08-04 10:17] LABS: Hematocrit 27.4 % (39.0-52.0); Hemoglobin 8.6 g/dL (13.0-18.0); Mean Corp Hgb Conc. 31.4 g/dL (33.0-37.0); Mean Corpuscular Hgb 27.5 pg (27.0-31.0); Mean Corpuscular Volume 87.5 fL (80.0-94.0); Platelet Count 356 10^3/uL (130-400); Red Blood Cell Count 3.13 10^6/uL (4.70-6.10); Red Cell Dist. Width 18.4 % (11.5-14.5); White Blood Cell Count 9.2 10^3/uL (4.8-10.8)
--- NOTE | 2023-08-04 10:37 | W.PN.GI.CBS2 ---
Today's Communication / Plan
-
Continue Protonix BID
Hgb stable
No further CGE
Bowel regimen- see if he responds to Mg citrate
Assessment / Plan
-
The patient is a 58-year-old male with a past medical history significant for paroxysmal atrial fibrillation on Coumadin, CAD, end-stage renal disease on hemodialysis, chronic iron deficiency anemia, heart failure with preserved ejection fraction,
history of pleural effusions, hypertension, spinal stenosis, GERD, ?Dunlap's Esophagus, who presented to the emergency room on 07/29/2023 with complaints of a fall with left-sided chest wall pain found to have a large left chest wall hematoma along
with significant anemia likely exacerbated on secondary to Coumadin use and supratherapeutic INR. He is being monitored by general surgery, but has been stable in regards to this. We were asked to evaluate as patient had reportedly an episode of
nausea with vomiting of 30 cc of coffee-ground emesis. His hemoglobin was stable as of this morning at 8.0. Small volume emesis noted at the bedside appearance of coffee ground ~20 cc.
Problem list:
-Large left chest wall hematoma
-Nausea, coffee-ground emesis
-Hyponatremia
-Leukocytosis, stable
-hx acute constipation
-History of paroxysmal atrial fibrillation on Coumadin with supratherapeutic INR on admission
-Acute on chronic normocytic anemia, status post 3 units of packed red blood cells
-History of GERD, ?Dunlap's esophagus
Other pertinent medical history:
-End-stage renal disease on hemodialysis
-Heart failure with preserved ejection fraction
-Hypertension
-Spinal stenosis
-CAD
Subjective
Subjective
Date of Service: August 04, 2023
No further vomiting. No significant BM after enema. Drinking Mg citrate
Objective
Data Reviewed
Laboratory Data:
Laboratory Results
08/04/23 09:56
Laboratory Results
PT 17.6 Sec (11.4-14.6) H 08/03/23 03:23
INR 1.46 08/03/23 03:23
APTT 49.2 Sec (23.4-35.0) H 07/31/23 04:05
Total Bilirubin 0.8 mg/dl (0.2-1.3) 08/03/23 03:23
AST 25 U/L (17-59) 08/03/23 03:23
ALT 13 U/L (0-50) 08/03/23 03:23
Alkaline Phosphatase 134 U/L (38-126) H 08/03/23 03:23
Vital Signs and I&O:
Vital Signs
Temp Pulse Resp BP Pulse Ox
98.0 F 80 15 183/80 93
08/04/23 07:19 08/04/23 08:00 08/04/23 08:00 08/04/23 08:00 08/04/23 08:00
I&O
08/03/23 08/04/23 08/05/23
06:59 06:59 06:59
Intake Total 300 / 300
Balance 300 / 300
Physical Exam
Physical Exam
GI: Soft, Non Distended and Non Tender
--- NOTE | 2023-08-04 11:23 | W.PN.NEPH.PH ---
Today's Communication / Plan
-
Add back clonidine
Dialysis tomorrow
Assessment/Plan
-
IMP:
Fall resulting in large left chest wall hematoma, in the setting of Coumadin use
Acute blood loss anemia on anemia of chronic kidney disease
CT chest shows 20 x 20 x 8 cm solid and cystic fluid collection the left chest wall system with hematoma
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
Chronic HFpEF
History of bilateral pleural effusions status post thoracentesis
History of pericardial effusion status post pericardiocentesis
Coronary artery disease
Paroxysmal atrial fibrillation
Essential hypertension
DM with multiple microvascular complications
Hyperlipidemia
Spinal stenosis
Migraine history
History of C. difficile
Anxiety/depression
L radial AVF
Severe lumbar spinal stenosis at multiple levels
Chronic low back pain with ambulatory dysfunction
Hyponatremia, hypervolemic
Plan:
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
Acute blood loss anemia
will plan HD tomorrow with out heparin
Remains hypertensive, add back clonidine
held AC, vit K and Kcentra given
renal diet and FR when diet starts
-
-
Date of Service: August 04, 2023
CC / HPI / ROS
-
Chief Complaint:
ESRD on HD
History of Present Illness:
fall and chest wall hematoma
Review of Systems:
pain
Labs
-
Labs:
WBC 9.2 10^3/uL (4.8-10.8) 08/04/23 09:56
RBC 3.13 10^6/uL (4.70-6.10) L 08/04/23 09:56
Hgb 8.6 g/dL (13.0-18.0) L 08/04/23 09:56
Hct 27.4 % (39.0-52.0) L 08/04/23 09:56
Plt Count 356 10^3/uL (130-400) 08/04/23 09:56
eGFR 9.17 08/03/23 03:23
Albumin 3.2 g/dl (3.5-5.0) L 08/03/23 03:23
Physical Exam
-
Vital Signs:
Vital Signs
Temp Pulse Resp BP Pulse Ox
99.5 F 80 15 183/80 93
08/04/23 11:19 08/04/23 08:00 08/04/23 08:00 08/04/23 08:00 08/04/23 08:00
Cardiovascular:: Regular rate and rhythm
Respiratory:: Bilateral: CTA
Lung Excursion:: Normal
Abdomen:: Nontender
Bowel Sounds:: Normal
Extremity Edema:: None: Bilateral:
Alfred Catheter: No
[2023-08-04 12:01] LABS: Glucose - Point of Care 105 mg/dl (70-99)
[2023-08-04 12:12] LABS: Blood Urea Nitrogen 44 mg/dl (9-20); Calcium 8.7 mg/dl (8.4-10.2); Carbon Dioxide 29 mmol/L (22-30); Chloride 92 mmol/L (98-107); Estimated Creatinine Clearance 18 ml/min; Glucose 98 mg/dl (70-99); Potassium 4.2 mmol/L (3.5-5.1); Sodium 131 mmol/L (135-145); eGFR 13.89
[2023-08-04] MEDS: CATAPRES 0.100000000000000006 MG PO ×2 (14:20→21:34)
--- NOTE | 2023-08-04 14:23 | PTCARENOTE ---
Patient tolerating clear liquid diet. Denies any nausea. No emesis. Medicated patient x1 with IV dilaudid for left flank hematoma pain rating 10/10. Patient drank mag citrate, tried to have BM on commode. Only passed gas. Will try again later.
Medicated patient with IV hydralazine for elevated BP's.
--- NOTE | 2023-08-04 16:34 | CM ---
Patient with Hx ESRD on HD with Dx Fall resulting in large left chest wall hematoma, Supratherapeutic INR, Acute blood loss anemia s/p transfusions.
Room air. PT & OT Evals; requires assist of 2, recommend skilled rehab.
Spoke with patient; he is adamant that he is not going to go to SNF for rehab and he plans on going home. He lives with his cousin Richi who is there during the day until he goes to work at 2pm. He will ask his other cousin if he could assist him
during the daytime. Discussed possibility of hiring a caregiver and offered Caregiver list- he will discuss with his family and let CM know if family will provide support vs hiring a caregiver. He declined to allow CM to contact his sister or
cousin at this time, and prefers to let CM know later his preferences. Patient [facility] aware [facility] to resume service.
Plan home with resumption [facility] .
[2023-08-04 17:06] LABS: Glucose - Point of Care 120 mg/dl (70-99)
[2023-08-04] MEDS: FLUSH (NSS) 1 FLUSH IV (18:16)
[2023-08-04] MEDS: PROCARDIA XL (EXTENDED RELEASE) 60 MG PO (20:22)
[2023-08-04] MEDS: NEURONTIN 100 MG PO (21:35)
[2023-08-04 21:50] LABS: Glucose - Point of Care 186 mg/dl (70-99)
[2023-08-04] MEDS: LANTUS SC (22:36)
--- NOTE | 2023-08-04 22:36 | W.PN.UPDATE ---
Update Note
Progress Note Update
BS 186, patient refusing 6 u Lantus and requesting 4 u Lantus instead. Patient is on clear diet now starting low residue diet AM. Will order 4 u Lantus.
[2023-08-04] MEDS: LANTUS 0.0400000000000000008 UNITS SC (22:58)
[2023-08-05] VITALS (29 sets, daily range): BP systolic 97–187; BP diastolic 50–80; BMI 25.3
--- NOTE | 2023-08-05 00:25 | PTCARENOTE ---
Received pt at start of shift. NO assessment changed. Hematoma still present, seems to have gotten smaller towards his lower back. Still having pain, dilaudid given. NSR BBB & prolonged QT. Remains RA. 4U lanuts given, pt refused 6U. NO other
issues. Will monitor.
[2023-08-05] MEDS: DILAUDID 1 MG IV ×6 (04:55→23:26)
[2023-08-05 05:29] LABS: Hematocrit 23.4 % (39.0-52.0); Hemoglobin 7.5 g/dL (13.0-18.0); Mean Corp Hgb Conc. 32.1 g/dL (33.0-37.0); Mean Corpuscular Hgb 26.9 pg (27.0-31.0); Mean Corpuscular Volume 83.9 fL (80.0-94.0); Mean Platelet Volume 9.1 fL (7.4-10.4); Platelet Count 370 10^3/uL (130-400); Red Blood Cell Count 2.79 10^6/uL (4.70-6.10); Red Cell Dist. Width 18.5 % (11.5-14.5); White Blood Cell Count 10.1 10^3/uL (4.8-10.8)
--- NOTE | 2023-08-05 06:19 | W.PN.HOSP.TC ---
Today's Communication/Plan
-
dc planning
resuming Coumadin
Resuming diet
Assessment / Plan
Assessment / Plan
Physical Exam
General: No Apparent Distress
HEENT: Normocephalic, Moist mucous membranes and Atraumatic
Respiratory: Clear
Cardiac: S1/S2, Regular Rhythm and Other (left chest wall swelling and tenderness ); No Murmur or Rub
GI: Soft, no epigastric tenderness.
Rectal: no rectal bleeding
Musculoskeletal: No Clubbing, No Cyanosis and No Edema
Skin: No Rash
Neuro: Nonfocal/grossly intact
Psych: calm, no agitation
A/P:
# Fall resulting in large left chest wall hematoma, in the setting of Coumadin use
# Supratherapeutic INR
# Acute blood loss anemia on anemia of chronic kidney disease
Patient denies sob or chest pain
Hemoglobin relatively stabilized but dipped down after GI bleeding, HGB around 7-8
Status post reversal of INR with Kcentra and vitamin K. Last INR was 1.4
-CT chest showed 20 x 20 x 8 cm solid and cystic fluid collection the left chest wall system with hematoma. CAT scan of the chest showed decrease in size of hematoma
Status post 3 units of blood transfusions
-Tylenol, Dilaudid for pain. Added oxycodone for pain control on 07/31 and pain better controlled.
- PT/OT as tolerated
-Appreciate surgery input
# Coffee-ground emesis seems to stop. Patient is feeling better, no nausea. No abdominal pain.
Tolerated liquid diet, advance to Low residue diet
Continue with PPI twice daily
Suspect upper GI bleeding that resolved
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
Appreciate GI input
# Constipation
resolved with bowel regimen.
#ESRD on hemodialysis M, W, F
-HD per nephro
-Continue sevelamer
-Appreciate nephrology
#HTN
Resumed oral medication
-Patient takes Bumex, clonidine, losartan, nifedipine, and hydralazine.
#Chronic HFpEF
-continue Bumex and HD.
History of bilateral pleural effusions status post thoracentesis
-As per CT scan pleural effusions are improved compared to prior
#History of pericardial effusion status post pericardiocentesis
#Hyponatremia
Mild, no confusion
#Coronary artery disease
-Continue statin
#Paroxysmal atrial fibrillation
-hold Coumadin
#Type 2 diabetes
-Insulin sliding scale
-No hypoglycemia.
Hyperlipidemia
-Continue Vascepa
#Spinal stenosis
-Continue gabapentin, Percocet
Adjust gabapentin dose per hemodialysis
Migraine history
History of C. difficile
#Anxiety/depression/ Moderate episode of recurrent major depressive disorder
-Continue sertraline
Former smoker
Former alcohol use
Full code
DVT prophylaxis�SCDs
Total time spent to see patient, examine the patient on the floor, review data and lab results, discuss treatment plan with patient, nursing staff around 57 minutes
Anticipated Discharge: 24 - 48 hours
Subjective/Interval History
-
Date of Service: August 05, 2023
He feels better
no abd pain or nausea
tolerated liquids, starting low residue diet
he refuses to go to SNF
Objective Data
-
Labs:
Laboratory Results
08/05/23
04:49
WBC 10.1
Hgb 7.5 L
Hct 23.4 L
Plt Count 370
Vital Signs:
Vital Signs
Temp Pulse Resp BP Pulse Ox
98.4 F 61 14 98/56 96
08/05/23 03:20 08/05/23 06:05 08/05/23 06:05 08/05/23 06:05 08/05/23 02:00
I&O
08/03/23 08/04/23 08/05/23
06:59 06:59 06:59
Intake Total 300 / 300 1140 / 1140
Balance 300 / 300 1140 / 1140
[2023-08-05 08:20] LABS: Glucose - Point of Care 96 mg/dl (70-99)
[2023-08-05] MEDS: NOVOLOG FLEXPEN-LOW RESISTANCE SC ×3 (08:37→16:57)
[2023-08-05] MEDS: PROTONIX IV 40 MG IV ×2 (08:40→20:33)
[2023-08-05] MEDS: NSS (PRESERVATIVE FREE) 10 ML IV ×2 (08:40→20:34)
[2023-08-05] MEDS: CATAPRES 0.100000000000000006 MG PO ×3 (08:41→21:34)
--- NOTE | 2023-08-05 09:46 | W.PN.GI.CBS2 ---
Today's Communication / Plan
-
No further CGE
Hgb stable. Hematoma decreasing in size on CT
Had BM with Mg citrate yesterday
Will sign off. Please call back if needed
Assessment / Plan
-
The patient is a 58-year-old male with a past medical history significant for paroxysmal atrial fibrillation on Coumadin, CAD, end-stage renal disease on hemodialysis, chronic iron deficiency anemia, heart failure with preserved ejection fraction,
history of pleural effusions, hypertension, spinal stenosis, GERD, ?Dunlap's Esophagus, who presented to the emergency room on 07/29/2023 with complaints of a fall with left-sided chest wall pain found to have a large left chest wall hematoma along
with significant anemia likely exacerbated on secondary to Coumadin use and supratherapeutic INR. He is being monitored by general surgery, but has been stable in regards to this. We were asked to evaluate as patient had reportedly an episode of
nausea with vomiting of 30 cc of coffee-ground emesis. His hemoglobin was stable as of this morning at 8.0. Small volume emesis noted at the bedside appearance of coffee ground ~20 cc.
Problem list:
-Large left chest wall hematoma
-Nausea, coffee-ground emesis
-Hyponatremia
-Leukocytosis, stable
-hx acute constipation
-History of paroxysmal atrial fibrillation on Coumadin with supratherapeutic INR on admission
-Acute on chronic normocytic anemia, status post 3 units of packed red blood cells
-History of GERD, ?Dunlap's esophagus
Other pertinent medical history:
-End-stage renal disease on hemodialysis
-Heart failure with preserved ejection fraction
-Hypertension
-Spinal stenosis
-CAD
Subjective
Subjective
Date of Service: August 05, 2023
Had BM. Feels better. No n/v
Objective
Data Reviewed
Laboratory Data:
Laboratory Results
08/05/23 04:49
08/04/23 09:56
Laboratory Results
PT 17.6 Sec (11.4-14.6) H 08/03/23 03:23
INR 1.46 08/03/23 03:23
APTT 49.2 Sec (23.4-35.0) H 07/31/23 04:05
Total Bilirubin 0.8 mg/dl (0.2-1.3) 08/03/23 03:23
AST 25 U/L (17-59) 08/03/23 03:23
ALT 13 U/L (0-50) 08/03/23 03:23
Alkaline Phosphatase 134 U/L (38-126) H 08/03/23 03:23
Vital Signs and I&O:
Vital Signs
Temp Pulse Resp BP Pulse Ox
98 F 68 14 120/64 96
08/05/23 07:30 08/05/23 08:41 08/05/23 06:05 08/05/23 08:41 08/05/23 02:00
I&O
08/04/23 08/05/23 08/06/23
06:59 06:59 06:59
Intake Total 1140 / 1140
Balance 1140 / 1140
Physical Exam
Physical Exam
GI: Soft, Non Distended and Non Tender
--- NOTE | 2023-08-05 10:43 | PTCARENOTE ---
aware that coumadin not given as ordered at 8 am due to pt for HD at 1200, rquested MD to retime. No new orders at this time
[2023-08-05] MEDS: RENVELA 1600 MG PO ×2 (11:06→16:49)
[2023-08-05] MEDS: EMLA CREAM 1 GRAM TOPICAL (11:13)
[2023-08-05 11:14] LABS: Glucose - Point of Care 142 mg/dl (70-99)
[2023-08-05] MEDS: RETACRIT 10000 UNITS IV (13:58)
[2023-08-05] MEDS: PROCARDIA XL (EXTENDED RELEASE) PO (15:43)
--- NOTE | 2023-08-05 15:57 | W.PN.NEPH.HD ---
Assessment
-
- no complaints on HD
Progress Note - Hemodialysis
-
Date of Service: August 05, 2023
Duration: 30 minutes and 3 hours
Potassium Bath: 3
Calcium Bath: 2.5
Opti-Dialyzer: 160
Ultrafiltration: Other
Blood Flow: 400
Dialysate Flow: 600
EPO: 10K
[2023-08-05] MEDS: COUMADIN 6 MG PO (16:51)
[2023-08-05 17:07] LABS: Glucose - Point of Care 119 mg/dl (70-99)
[2023-08-05] MEDS: PROCARDIA XL (EXTENDED RELEASE) 60 MG PO (20:33)
[2023-08-05 20:58] LABS: Glucose - Point of Care 176 mg/dl (70-99)
[2023-08-05] MEDS: LANTUS 0.0599999999999999978 UNITS SC (21:33)
[2023-08-05] MEDS: NEURONTIN 100 MG PO (21:34)
[2023-08-05] MEDS: APRESOLINE 10 MG IV (21:57)
[2023-08-06] VITALS (18 sets, daily range): BP systolic 116–179; BP diastolic 57–75; PULSE 72; O2SAT 97; BMI 25.0
--- NOTE | 2023-08-06 01:14 | PTCARENOTE ---
Addendum entered by Lisa Gerene RN 08/06/23 06:04:
sbp's through night in the 160-170's, night SWATCH PASTER made aware, will continue with PRN hydralazine. Pt having pain, requesting pain medication @2 Hr.
Original Note:
Pt continuing to have high Bp's PRN hydralazine given, night SWATCH PASTER made aware. PRN pain medication also given multiple times for 9/10 pain.
[2023-08-06] MEDS: DILAUDID 1 MG IV ×2 (03:15→05:36)
[2023-08-06] MEDS: APRESOLINE 10 MG IV (04:22)
[2023-08-06 05:51] LABS: Hematocrit 24.6 % (39.0-52.0); Hemoglobin 7.8 g/dL (13.0-18.0); Mean Corp Hgb Conc. 31.7 g/dL (33.0-37.0); Mean Corpuscular Volume 85.1 fL (80.0-94.0); Mean Platelet Volume 8.9 fL (7.4-10.4); Platelet Count 367 10^3/uL (130-400); Red Blood Cell Count 2.89 10^6/uL (4.70-6.10); Red Cell Dist. Width 18.6 % (11.5-14.5); White Blood Cell Count 8.1 10^3/uL (4.8-10.8)
[2023-08-06 06:02] LABS: INR 1.92; PT 22.1 Sec (11.4-14.6)
--- NOTE | 2023-08-06 06:03 | W.PN.HOSP.TC ---
Today's Communication/Plan
-
Pt refuses rehab
Like dc in 24-48 hours with home health
Assessment / Plan
Assessment / Plan
Physical Exam
General: No Apparent Distress
HEENT: Normocephalic, Moist mucous membranes and Atraumatic
Respiratory: Clear
Cardiac: S1/S2, Regular Rhythm and Other (left chest wall swelling and tenderness ); No Murmur or Rub
GI: Soft, no epigastric tenderness.
Rectal: no rectal bleeding
Musculoskeletal: No Clubbing, No Cyanosis and No Edema
Skin: No Rash
Neuro: Nonfocal/grossly intact
Psych: calm, no agitation
A/P:
# Fall resulting in large left chest wall hematoma, in the setting of Coumadin use
# Supratherapeutic INR
# Acute blood loss anemia on anemia of chronic kidney disease
Patient denies sob or chest pain
Hemoglobin relatively stabilized but dipped down after GI bleeding, HGB around 7-8
Status post reversal of INR with Kcentra and vitamin K. Resumed Coumadin now. INR 1.9
-CT chest showed 20 x 20 x 8 cm solid and cystic fluid collection the left chest wall system with hematoma. CAT scan of the chest showed decrease in size of hematoma
Status post 3 units of blood transfusions
-Tylenol, Dilaudid for pain. Added oxycodone for pain control on 07/31 and pain better controlled. per nurses, pt asks for pain medicine ATC, I talked with pt to cut back on Dilaudid, will do Tylenol TID for now, lower dose of Dilaudid and space it
out.
- PT/OT as tolerated
-Appreciate surgery input
# Coffee-ground emesis, resolved. Due to acute gastritis. Patient is feeling better, no nausea. No abdominal pain.
Tolerated Low residue diet , wanted regular diet
Continue with PPI twice daily
Stable HGB
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
Appreciate GI input
# Constipation
resolved with bowel regimen. Daily Dulcolax.
#ESRD on hemodialysis M, W, F
-HD per nephro
-Continue sevelamer
-Appreciate nephrology
#HTN
Resumed oral medication
-Patient takes Bumex, clonidine, losartan, nifedipine, and hydralazine.
#Chronic HFpEF
-continue Bumex and HD.
History of bilateral pleural effusions status post thoracentesis
-As per CT scan pleural effusions are improved compared to prior
#History of pericardial effusion status post pericardiocentesis
#Hyponatremia
Mild, no confusion
#Coronary artery disease
-Continue statin
#Paroxysmal atrial fibrillation
-hold Coumadin
#Type 2 diabetes
-Insulin sliding scale
-No hypoglycemia.
Hyperlipidemia
-Continue Vascepa
#Spinal stenosis
-Continue gabapentin, Percocet
Adjust gabapentin dose per hemodialysis
Migraine history
History of C. difficile
#Anxiety/depression/ Moderate episode of recurrent major depressive disorder
-Continue sertraline
Former smoker
Former alcohol use
Full code
DVT prophylaxis�SCDs
Total time spent to see patient, examine the patient on the floor, review data and lab results, discuss treatment plan with patient, nursing staff around 55 minutes
Anticipated Discharge: 24 - 48 hours
Subjective/Interval History
-
Date of Service: August 06, 2023
patient continues to ask for Dilaudid IV for hematoma related pain
No N/V
Objective Data
-
Labs:
Laboratory Results
08/06/23
05:42
WBC 8.1
Hgb 7.8 L
Hct 24.6 L
Plt Count 367
PT Pending
INR Pending
Sodium Pending
Potassium Pending
Chloride Pending
Carbon Dioxide Pending
BUN Pending
Creatinine Pending
Glucose Pending
Calcium Pending
Vital Signs:
Vital Signs
Temp Pulse Resp BP Pulse Ox
98.1 F 73 8 170/72 95
08/06/23 03:45 08/06/23 06:00 08/06/23 06:00 08/06/23 06:00 08/06/23 04:03
I&O
08/04/23 08/05/23 08/06/23
06:59 06:59 06:59
Intake Total 1140 / 1140 240 / 240
Output Total 0 / 0
Balance 1140 / 1140 240 / 240
[2023-08-06 06:24] LABS: Blood Urea Nitrogen 34 mg/dl (9-20); Calcium 7.9 mg/dl (8.4-10.2); Carbon Dioxide 26 mmol/L (22-30); Chloride 95 mmol/L (98-107); Estimated Creatinine Clearance 24 ml/min; Glucose 101 mg/dl (70-99); Potassium 3.8 mmol/L (3.5-5.1); Sodium 131 mmol/L (135-145); eGFR 19.28
[2023-08-06 08:01] LABS: Glucose - Point of Care 91 mg/dl (70-99)
[2023-08-06] MEDS: NOVOLOG FLEXPEN-LOW RESISTANCE SC ×3 (08:03→17:40)
[2023-08-06] MEDS: RENVELA 1600 MG PO ×3 (08:45→17:44)
[2023-08-06] MEDS: PROCARDIA XL (EXTENDED RELEASE) 60 MG PO ×2 (08:45→20:20)
[2023-08-06] MEDS: DULCOLAX 10 MG PO (08:45)
[2023-08-06] MEDS: TYLENOL 1000 MG PO ×3 (08:45→21:42)
[2023-08-06] MEDS: CATAPRES 0.100000000000000006 MG PO ×3 (08:45→21:43)
[2023-08-06] MEDS: ZOLOFT 100 MG PO (08:45)
[2023-08-06] MEDS: NSS (PRESERVATIVE FREE) 10 ML IV ×2 (08:46→20:22)
[2023-08-06] MEDS: PROTONIX IV 40 MG IV ×2 (08:46→20:21)
[2023-08-06 11:43] LABS: Glucose - Point of Care 136 mg/dl (70-99)
--- NOTE | 2023-08-06 12:19 | W.PN.NEPH.PH ---
Today's Communication / Plan
-
- HD tomorrow
Assessment/Plan
-
IMP:
Fall resulting in large left chest wall hematoma, in the setting of Coumadin use
Acute blood loss anemia on anemia of chronic kidney disease
CT chest shows 20 x 20 x 8 cm solid and cystic fluid collection the left chest wall system with hematoma
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
Chronic HFpEF
History of bilateral pleural effusions status post thoracentesis
History of pericardial effusion status post pericardiocentesis
Coronary artery disease
Paroxysmal atrial fibrillation
Essential hypertension
DM with multiple microvascular complications
Hyperlipidemia
Spinal stenosis
Migraine history
History of C. difficile
Anxiety/depression
L radial AVF
Severe lumbar spinal stenosis at multiple levels
Chronic low back pain with ambulatory dysfunction
Hyponatremia, hypervolemic
Plan:
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
Acute blood loss anemia
will plan HD tomorrow with out heparin
Remains hypertensive, add back clonidine
held AC, vit K and Kcentra given
renal diet and FR when diet starts
-
-
Date of Service: August 06, 2023
CC / HPI / ROS
-
Chief Complaint:
ESRD on HD
History of Present Illness:
fall and chest wall hematoma
Review of Systems:
pain
Labs
-
Labs:
WBC 8.1 10^3/uL (4.8-10.8) 08/06/23 05:42
RBC 2.89 10^6/uL (4.70-6.10) L 08/06/23 05:42
Hgb 7.8 g/dL (13.0-18.0) L 08/06/23 05:42
Hct 24.6 % (39.0-52.0) L 08/06/23 05:42
Plt Count 367 10^3/uL (130-400) 08/06/23 05:42
Sodium 131 mmol/L (135-145) L 08/06/23 05:42
Potassium 3.8 mmol/L (3.5-5.1) 08/06/23 05:42
Chloride 95 mmol/L (98-107) L 08/06/23 05:42
Carbon Dioxide 26 mmol/L (22-30) 08/06/23 05:42
BUN 34 mg/dl (9-20) H 08/06/23 05:42
Creatinine 3.5 mg/dL (0.7-1.3) H 08/06/23 05:42
eGFR 19.28 08/06/23 05:42
Glucose 101 mg/dl (70-99) H 08/06/23 05:42
Calcium 7.9 mg/dl (8.4-10.2) L 08/06/23 05:42
Albumin 3.2 g/dl (3.5-5.0) L 08/03/23 03:23
Physical Exam
-
Vital Signs:
Vital Signs
Temp Pulse Resp BP Pulse Ox
98.7 F 83 16 168/75 95
08/06/23 07:20 08/06/23 08:45 08/06/23 08:00 08/06/23 08:45 08/06/23 04:03
Cardiovascular:: Regular rate and rhythm
Respiratory:: Bilateral: Coarse
Lung Excursion:: Normal
Abdomen:: Nontender and Soft
Bowel Sounds:: Normal
Extremity Edema:: None: Bilateral:
Alfred Catheter: No
--- NOTE | 2023-08-06 14:17 | CM ---
Patient with Hx ESRD on HD with Dx Fall resulting in large left chest wall hematoma, Supratherapeutic INR, Acute blood loss anemia s/p transfusions. Room air. PT & OT Evals; requires assist of 1, recommend HH.
Met with patient and discussed d/c plans. Patient aware he is not completely independent with his mobility. He cannot afford to hire help at home and is reluctant to ask his sister or cousin to assist him. Patient asking if he can switch from
[facility] to [facility] so SENIOR DENTIST can be added- CM confirmed with him that [facility] is able to provide SN/PT/OT/SENIOR DENTIST. Encouraged patient to talk to his cousin that he lives with about assisting him when he returns home or asking his sister to come
over and help him - he did not commit to speaking with his family and declines again to allow CM to speak with them. Patient confirms that his cousin will continue to provide transport to HD (MWF 10:30 to 3p schedule).
Spoke with [facility] (ph [phone]); they are unable to provide a SENIOR DENTIST for patient. Informed them that patient decided to cancel future service.
Spoke with [facility]; requested SN/PT/OT & SENIOR DENTIST. They are able to accept the referral. She can add a SW as needed to help with roasterman planning with [facility] for the Waiver program as needed.
Plan home with [facility] when medically ready.
[2023-08-06] MEDS: COUMADIN 6 MG PO (16:02)
[2023-08-06] MEDS: NOVOLOG FLEXPEN-LOW RESISTANCE 2 UNITS SC (17:44)
[2023-08-06 17:49] LABS: Glucose - Point of Care 214 mg/dl (70-99)
[2023-08-06] MEDS: LANTUS 0.0599999999999999978 UNITS SC (21:42)
[2023-08-06] MEDS: NEURONTIN 100 MG PO (21:42)
[2023-08-06 21:45] LABS: Glucose - Point of Care 229 mg/dl (70-99)
--- NOTE | 2023-08-06 23:15 | PTCARENOTE ---
Assumed care of Pt from day RN. Pt had no complaints at that time. Pt requiring pain medication later in shift. Assessment care and vitals as charted.
[2023-08-07] VITALS (29 sets, daily range): BP systolic 123–158; BP diastolic 60–73; PULSE 58; BMI 26.0
[2023-08-07] MEDS: ROXICODONE 2.5 MG PO (00:22)
[2023-08-07 04:06] LABS: Hematocrit 26.1 % (39.0-52.0); Hemoglobin 8.3 g/dL (13.0-18.0); Mean Corp Hgb Conc. 31.8 g/dL (33.0-37.0); Mean Corpuscular Hgb 27.2 pg (27.0-31.0); Mean Corpuscular Volume 85.6 fL (80.0-94.0); Platelet Count 354 10^3/uL (130-400); Red Blood Cell Count 3.05 10^6/uL (4.70-6.10); Red Cell Dist. Width 18.6 % (11.5-14.5); White Blood Cell Count 8.7 10^3/uL (4.8-10.8)
[2023-08-07 04:24] LABS: INR 1.68
--- NOTE | 2023-08-07 06:35 | W.PN.HOSP.TC ---
Today's Communication/Plan
-
Patient wants to go home on Thursday with home care
Assessment / Plan
Assessment / Plan
Physical Exam
General: No Apparent Distress
HEENT: Normocephalic, Moist mucous membranes and Atraumatic
Respiratory: Clear, hematoma ( swelling) left posterior chest wall
Cardiac: S1/S2, Regular Rhythm.
GI: Soft, no epigastric tenderness.
Rectal: no rectal bleeding
Musculoskeletal: No Clubbing, No Cyanosis and No Edema
Skin: No Rash
Neuro: Nonfocal/grossly intact
Psych: calm, no agitation
A/P:
# Fall resulting in large left chest wall hematoma, in the setting of Coumadin use
# Supratherapeutic INR
# Acute blood loss anemia on anemia of chronic kidney disease
Patient denies sob or chest pain
Hemoglobin relatively stabilized but dipped down after GI bleeding, HGB around 7-8
Status post reversal of INR with Kcentra and vitamin K. Resumed Coumadin now. INR 1.9
-CT chest showed 20 x 20 x 8 cm solid and cystic fluid collection the left chest wall system with hematoma. CAT scan of the chest showed decrease in size of hematoma
Status post 3 units of blood transfusions
-Tylenol, Dilaudid for pain. Added oxycodone for pain control on 07/31 and pain better controlled. Tylenol TID for now, lowered dose of Dilaudid and space it out.
- PT/OT as tolerated
-Appreciate surgery input
# Coffee-ground emesis, resolved. Due to acute gastritis. Patient is feeling better, no nausea. No abdominal pain.
Tolerated Low residue diet , wanted regular diet
Continue with PPI twice daily
Stable HGB
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
Appreciate GI input
# Constipation
resolved with bowel regimen. Daily Dulcolax.
#ESRD on hemodialysis M, W, F
-HD per nephro
-Continue sevelamer
-Appreciate nephrology
#HTN
Resumed oral medication
-Patient takes Bumex, clonidine, losartan, nifedipine, and hydralazine.
#Chronic HFpEF
-continue Bumex and HD.
History of bilateral pleural effusions status post thoracentesis
-As per CT scan pleural effusions are improved compared to prior
#History of pericardial effusion status post pericardiocentesis
#Hyponatremia
Mild, no confusion
#Coronary artery disease
-Continue statin
#Paroxysmal atrial fibrillation
-Resume Coumadin. INR 1.6 , will increase dose of tonight
#Type 2 diabetes
-Insulin sliding scale
-No hypoglycemia.
Hyperlipidemia
-Continue Vascepa
#Spinal stenosis
-Continue gabapentin, Percocet
Adjust gabapentin dose per hemodialysis
Migraine history
History of C. difficile
#Anxiety/depression/ Moderate episode of recurrent major depressive disorder
-Continue sertraline
Former smoker
Former alcohol use
Full code
DVT prophylaxis�SCDs
Total time spent to see patient, examine the patient on the floor, review data and lab results, discuss treatment plan with patient, nursing staff around 57 minutes
Anticipated Discharge: 24 - 48 hours
Subjective/Interval History
-
Date of Service: August 07, 2023
Less pain in chest
No abd pain
Tolerating diet
Objective Data
-
Labs:
Laboratory Results
08/07/23
03:57
WBC 8.7
Hgb 8.3 L
Hct 26.1 L
Plt Count 354
PT 20.0 H
INR 1.68
Vital Signs:
Vital Signs
Temp Pulse Resp BP Pulse Ox
98.2 F 64 16 137/65 95
08/07/23 03:52 08/07/23 06:00 08/07/23 06:00 08/07/23 06:00 08/07/23 03:10
I&O
08/05/23 08/06/23 08/07/23
06:59 06:59 06:59
Intake Total 1140 / 1140 240 / 240 960 / 960
Output Total 0 / 0 0 / 0
Balance 1140 / 1140 240 / 240 960 / 960
[2023-08-07 07:42] LABS: Glucose - Point of Care 115 mg/dl (70-99)
[2023-08-07] MEDS: NOVOLOG FLEXPEN-LOW RESISTANCE SC ×3 (08:19→17:30)
[2023-08-07] MEDS: PROCARDIA XL (EXTENDED RELEASE) 60 MG PO ×2 (08:58→21:20)
[2023-08-07] MEDS: DULCOLAX 10 MG PO (08:58)
[2023-08-07] MEDS: RENVELA 1600 MG PO ×3 (08:58→16:22)
[2023-08-07] MEDS: CATAPRES 0.100000000000000006 MG PO ×2 (08:58→22:10)
[2023-08-07] MEDS: TYLENOL 1000 MG PO ×3 (08:59→21:21)
[2023-08-07] MEDS: ZOLOFT 100 MG PO (08:59)
[2023-08-07] MEDS: PROTONIX IV 40 MG IV (08:59)
[2023-08-07] MEDS: NSS (PRESERVATIVE FREE) 10 ML IV (08:59)
--- NOTE | 2023-08-07 11:41 | PTCARENOTE ---
Med surg orders rec'd, pt updated and in agreement, wants to go home on Thursday per Dr. Rodas conversation with him earlier. Continuing to monitor, pt for HD this afternoon at 5 pm.
--- NOTE | 2023-08-07 11:56 | CM ---
Patient with Hx ESRD on HD with Dx Fall resulting in large left chest wall hematoma, Supratherapeutic INR, Acute blood loss anemia s/p transfusions. Room air. PT & OT Evals; requires assist of 1, recommend HH.
Per Dr Butt notes today: Patient wants to go home on Thursday with home care.
[facility]: fax [phone].
Plan home Sun 08/08 with [facility].
[2023-08-07 12:15] LABS: Glucose - Point of Care 108 mg/dl (70-99)
[2023-08-07 16:25] LABS: Glucose - Point of Care 140 mg/dl (70-99)
[2023-08-07] MEDS: COUMADIN 6 MG PO (17:11)
--- NOTE | 2023-08-07 17:26 | W.PN.NEPH.HD ---
Assessment
-
Patient seen on HD
sbp stable at 2.5kg u/f
access flows good via AVF
Progress Note - Hemodialysis
-
Date of Service: August 07, 2023
Duration: 30 minutes and 3 hours
Potassium Bath: 3
Calcium Bath: 2.5
Opti-Dialyzer: 160
Ultrafiltration: Other
Blood Flow: 400
Dialysate Flow: 600
Heparin: none
EPO: 10,000
[2023-08-07] MEDS: RETACRIT 10000 UNITS IV (18:03)
[2023-08-07] MEDS: CATAPRES PO (19:35)
[2023-08-07] MEDS: EMLA CREAM TOPICAL (19:36)
--- NOTE | 2023-08-07 19:45 | PTCARENOTE ---
Assumed care of Pt from day RN. Pt currently on HD. Pt has no complaints at this time. Assessment care and vitals as charted
[2023-08-07] MEDS: PROTONIX 40 MG PO (21:21)
[2023-08-07] MEDS: LANTUS 0.0599999999999999978 UNITS SC (21:22)
[2023-08-07] MEDS: NEURONTIN 100 MG PO (21:22)
[2023-08-07 21:32] LABS: Glucose - Point of Care 259 mg/dl (70-99)
[2023-08-08] VITALS (9 sets, daily range): BP systolic 119–157; BP diastolic 56–77; PULSE 69; BMI 25.5
--- NOTE | 2023-08-08 06:23 | W.PN.HOSP.TC ---
Today's Communication/Plan
-
likely dc in am
Assessment / Plan
Assessment / Plan
Physical Exam
General: No Apparent Distress
HEENT: Normocephalic, Moist mucous membranes and Atraumatic
Respiratory: Clear, hematoma ( swelling) left posterior chest wall
Cardiac: S1/S2, Regular Rhythm.
GI: Soft, no epigastric tenderness.
Rectal: no rectal bleeding
Musculoskeletal: No Clubbing, No Cyanosis and No Edema
Skin: No Rash
Neuro: Nonfocal/grossly intact
Psych: calm, no agitation
A/P:
# Fall resulting in large left chest wall hematoma, in the setting of Coumadin use
# Supratherapeutic INR
# Acute blood loss anemia on anemia of chronic kidney disease
Patient denies sob or chest pain
Hemoglobin relatively stabilized but dipped down after GI bleeding, HGB around 7-8
Status post reversal of INR with Kcentra and vitamin K. Resumed Coumadin now. INR 1.9
-CT chest showed 20 x 20 x 8 cm solid and cystic fluid collection the left chest wall system with hematoma. CAT scan of the chest showed decrease in size of hematoma
Status post 3 units of blood transfusions
-Tylenol, Dilaudid for pain. Added oxycodone for pain control on 07/31 and pain better controlled. Tylenol TID for now, lowered dose of Dilaudid and space it out.
- PT/OT as tolerated
-Appreciate surgery input
# Coffee-ground emesis, resolved. Due to acute gastritis. Patient is feeling better, no nausea. No abdominal pain.
Tolerated Low residue diet , wanted regular diet
Continue with PPI twice daily
Stable HGB
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
Appreciate GI input
# Constipation
resolved with bowel regimen. Daily Dulcolax.
#ESRD on hemodialysis M, W, F
-HD per nephro
-Continue sevelamer
-Appreciate nephrology
#HTN
Resumed some of oral medication. Needed PRN meds at times.
-Patient takes clonidine, nifedipine. Resume hydralazine .
#Chronic HFpEF
-continue HD.
History of bilateral pleural effusions status post thoracentesis
-As per CT scan pleural effusions are improved compared to prior
#History of pericardial effusion status post pericardiocentesis
#Hyponatremia
Mild, no confusion
#Coronary artery disease
-Continue statin
#Paroxysmal atrial fibrillation
-Resume Coumadin. INR 1.6, check INR today
#Type 2 diabetes
-Insulin sliding scale
-No hypoglycemia.
Hyperlipidemia
-Continue Vascepa
#Spinal stenosis
-Continue gabapentin, Percocet
Adjust gabapentin dose per hemodialysis
Migraine history
History of C. difficile
#Anxiety/depression/ Moderate episode of recurrent major depressive disorder
-Continue sertraline
Former smoker
Former alcohol use
Full code
DVT prophylaxis�SCDs
Total time spent to see patient, examine the patient on the floor, review data and lab results, discuss treatment plan with patient, nursing staff around 55 minutes
Anticipated Discharge: Within 24 hours
Subjective/Interval History
-
Date of Service: August 08, 2023
Doing better
Objective Data
-
Vital Signs:
Vital Signs
Temp Pulse Resp BP Pulse Ox
98.6 F 71 14 136/60 94
08/07/23 23:33 08/08/23 06:00 08/08/23 06:00 08/08/23 06:00 08/08/23 03:26
I&O
08/06/23 08/07/23 08/08/23
06:59 06:59 06:59
Intake Total 240 / 240 960 / 960 720 / 720
Output Total 0 / 0 0 / 0 151 / 151
Balance 240 / 240 960 / 960 569 / 569
[2023-08-08 07:15] LABS: Glucose - Point of Care 126 mg/dl (70-99)
[2023-08-08] MEDS: NOVOLOG FLEXPEN-LOW RESISTANCE SC ×2 (08:03→12:47)
[2023-08-08] MEDS: DULCOLAX 10 MG PO (08:16)
[2023-08-08] MEDS: MIRALAX 17 GRAMS PO (08:16)
[2023-08-08] MEDS: ZOLOFT 100 MG PO (08:16)
[2023-08-08] MEDS: CATAPRES 0.100000000000000006 MG PO ×3 (08:16→20:20)
[2023-08-08] MEDS: PROCARDIA XL (EXTENDED RELEASE) 60 MG PO ×2 (08:16→20:20)
[2023-08-08] MEDS: PROTONIX 40 MG PO ×2 (08:16→20:19)
[2023-08-08] MEDS: RENVELA 1600 MG PO ×3 (08:16→17:37)
[2023-08-08] MEDS: TYLENOL 1000 MG PO ×3 (08:16→20:19)
[2023-08-08 09:51] LABS: INR 2.26; PT 24.8 Sec (11.4-14.6)
--- NOTE | 2023-08-08 10:21 | PTCARENOTE ---
Pt rec'd at 07:15 from previous shift, sitting up on side of bed, eating breakfast. VSS, no complaints at this time.Meds and assessment as documented. Assisted with hygiene care, walked to sit up in chair, cousin in room to visit...plan of care
discussed and patient verbalized agreement, likely dc in am home with cousin. MS orders continue.
--- NOTE | 2023-08-08 10:54 | W.PN.NEPH.PH ---
Today's Communication / Plan
-
Next dialysis will be Thursday at home unit
d/c in am
Assessment/Plan
-
IMP:
Fall resulting in large left chest wall hematoma, in the setting of Coumadin use
Acute blood loss anemia on anemia of chronic kidney disease
CT chest shows 20 x 20 x 8 cm solid and cystic fluid collection the left chest wall system with hematoma
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
Chronic HFpEF
History of bilateral pleural effusions status post thoracentesis
History of pericardial effusion status post pericardiocentesis
Coronary artery disease
Paroxysmal atrial fibrillation
Essential hypertension
DM with multiple microvascular complications
Hyperlipidemia
Spinal stenosis
Migraine history
History of C. difficile
Anxiety/depression
L radial AVF
Severe lumbar spinal stenosis at multiple levels
Chronic low back pain with ambulatory dysfunction
Hyponatremia, hypervolemic
Plan:
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
Acute blood loss anemia
will plan HD Thursday ith out heparin
Remains hypertensive, add back clonidine
held AC, vit K and Kcentra given
renal diet and FR when diet starts
-
-
Date of Service: August 08, 2023
CC / HPI / ROS
-
Chief Complaint:
ESRD on HD
History of Present Illness:
fall and chest wall hematoma
End-stage renal disease Thursday
Hemodynamically stable
Review of Systems:
pain
No shortness of breath
No fevers
Labs
-
Labs:
WBC 8.7 10^3/uL (4.8-10.8) 08/07/23 03:57
RBC 3.05 10^6/uL (4.70-6.10) L 08/07/23 03:57
Hgb 8.3 g/dL (13.0-18.0) L 08/07/23 03:57
Hct 26.1 % (39.0-52.0) L 08/07/23 03:57
Plt Count 354 10^3/uL (130-400) 08/07/23 03:57
Sodium 131 mmol/L (135-145) L 08/06/23 05:42
Potassium 3.8 mmol/L (3.5-5.1) 08/06/23 05:42
Chloride 95 mmol/L (98-107) L 08/06/23 05:42
Carbon Dioxide 26 mmol/L (22-30) 08/06/23 05:42
BUN 34 mg/dl (9-20) H 08/06/23 05:42
Creatinine 3.5 mg/dL (0.7-1.3) H 08/06/23 05:42
eGFR 19.28 08/06/23 05:42
Glucose 101 mg/dl (70-99) H 08/06/23 05:42
Calcium 7.9 mg/dl (8.4-10.2) L 08/06/23 05:42
Albumin 3.2 g/dl (3.5-5.0) L 08/03/23 03:23
Physical Exam
-
Vital Signs:
Vital Signs
Temp Pulse Resp BP Pulse Ox
97.9 F 78 14 157/61 94
08/08/23 07:15 08/08/23 08:16 08/08/23 06:00 08/08/23 08:16 08/08/23 03:26
Cardiovascular:: Regular rate and rhythm
Respiratory:: Bilateral: CTA
Abdomen:: Nontender
Bowel Sounds:: Normal
Extremity Edema:: None: Bilateral:
Alfred Catheter: No
[2023-08-08 11:40] LABS: Glucose - Point of Care 143 mg/dl (70-99)
--- NOTE | 2023-08-08 15:43 | W.DCSUMMARY ---
Discharge Summary
Discharge Data
Date of Admission: 07/29/23
Date of Discharge: 08/09/23
-
Pending Results: No
Hospital Course
58 years old male admitted to the hospital after sustaining fall at home. Patient had a mechanical fall at home 2 days before presenting to the emergency room. He sustained a large posterior left chest wall hematoma. No open wounds. Patient was
using Coumadin and he had supratherapeutic level upon admission. His INR was 4.9. His hemoglobin was 5.7 from baseline around 8. Scan of the chest showed 20 x 20 x 8 cm solid and cystic fluid collection of the left chest wall consistent with
hematoma. Patient was given Kcentra and vitamin K. Coumadin was held. He was given blood transfusion, total of 3 units. Patient was evaluated by surgery. He did not have respiratory distress. Patient struggled with pain. He was given pain
medications including narcotic ( Dilaudid) and Tylenol. He had an episode of coffee-ground emesis. Patient had history of esophagitis and had endoscopic evaluation outside the hospital recently. Patient was started on Protonix. He did not have
abdominal pain. Patient was evaluated by gastroenterology. His hemoglobin stabilized and did not have recurrent vomiting. He was started gradually on low residue diet then advance to regular diet. He was noted to have constipation and was given
bowel regimen with good resolution. Repeat scan of the chest showed slightly decrease in size of the hematoma with pulmonary atelectasis. Patient was started back on Coumadin. INR became therapeutic. He underwent hemodialysis regularly without
complications and was followed by laminator preforms. His pain became controlled with Tylenol. He was advised to cut back on opioid. Patient was evaluated by physical therapy and recommended group home facility placement. Patient declined
placement and wanted to go home with home care services. Patient was kept in the hospital extra days to undergo physical therapy in the hospital. He remained hemodynamically stable and was discharged home in a stable condition with home health
services. INR on discharge was 2.3. Primary field service engineer Dr. Maikol Callejas. He was kept on Coumadin because he is transplant candidate. His home dose of Gabapentin was adjusted according to his kidney function.
Physical Exam
General: No Apparent Distress
HEENT: Normocephalic, Moist mucous membranes and Atraumatic
Respiratory: Clear, hematoma ( swelling) left posterior chest wall
Cardiac: S1/S2, Regular Rhythm.
GI: Soft, no epigastric tenderness.
Rectal: no rectal bleeding
Musculoskeletal: No Clubbing, No Cyanosis and No Edema
Skin: No Rash
Neuro: Nonfocal/grossly intact
Psych: calm, no agitation
Total discharge time spent to see patient, examine the patient on the floor, review data and lab results, discuss discharge plan with patient, nursing staff around 65 minutes
Discharge Plan
-
Patient Disposition: Home with Home Care
Discharge Diagnosis/Procedures: Fall with hematoma
Acute blood loss anemia
Acute gastritis
Diabetic neuropathy, we change dose of Neurontin according to your renal function to avoid toxicity
Diet: No restrictions
Activity: No restrictions
Driving Restrictions: As prior to admission
Bathing Restrictions: OK to Shower
Activity Restrictions/Additional Instructions:
Wound care: You have a large hematoma over your left lateral chest and abdominal wall. You will likely develop significant bruising over the skin which is a normal however if there is any areas that look black please let your surgeon know.
Occasional heat/heat packs over the area may help liquefy the hematoma and speed up reabsorption. The healing process will likely take months for this to resolve.
Referrals:
Rosemarie Paige DO [Family Provider] - in one to two weeks
Karlos Swift MD [Active] -
Prescriptions:
New
acetaminophen [Tylenol Extra Strength] 500 mg Tablet
1,000 mg PO BID Qty: 10 0RF
gabapentin 100 mg Capsule
100 mg PO HS Qty: 30 0RF
pantoprazole [Protonix] 40 mg tablet,delayed release (DR/EC)
40 mg PO BID Qty: 60 0RF
Continued
atorvastatin 80 mg Tablet
80 mg PO HS
clonidine HCl 0.1 mg Tablet
0.1 mg PO TID
icosapent ethyl [Vascepa] 1 gram Capsule
2 g PO BID
lidocaine-prilocaine 2.5-2.5 % Cream
1 applic TOPICAL MOWEFR
Rx Instructions:
12/23/22 APPLY ONE HOUR PRIOR TO HD TO LEFT AVF
Aimovig Autoinjector 70 mg/mL auto-injector
70 mg SC MONTHLY
Patient Comments:
07/29/2023: pt states hasn't taken in a few months
nifedipine 60 mg Tablet Extended Release
60 mg PO BID Qty: 0 0RF
sevelamer carbonate 800 mg tablet
1,600 mg PO MEALS
Probiotic 3 billion cell Capsule
3,000 mmu cells PO DAILY
insulin aspart U-100 [Novolog FlexPen U-100 Insulin] 100 unit/mL (3 mL) insulin pen
1 sliding scale dose SC ACHS
polyethylene glycol 3350 [HealthyLax] 17 gram Powder In Packet
17 g PO DAILY PRN (Reason: constipation) Qty: 0 0RF
bumetanide 2 mg tablet
4 mg PO SUTUTHSA
sertraline 100 mg tablet
100 mg PO DAILY
oxycodone-acetaminophen 5-325 mg tablet
1 tab PO Q8H PRN (Reason: moderate pain)
Patient Comments:
07/29/2023: last filled 06/16/23, 90 tabs for 30 days from [id number]
warfarin 6 mg tablet
6 mg PO QPM
hydralazine 100 mg tablet
100 mg PO TID
losartan 100 mg tablet
100 mg PO DAILY
Dialyvite 100-1 mg tablet
1 tab PO DAILY
insulin degludec [Tresiba U-100 Insulin] 100 unit/mL solution
6 unit SC HS
Discontinued
gabapentin 300 mg capsule
300 mg PO BID
pantoprazole 40 mg tablet,delayed release (DR/EC)
40 mg PO BID
Discharge Orders:
Discharge Patient (As Directed); Ordered 08/09/23
Ordered By: Lotus Rodas
Discharge Date and Time
Discharge Date/Time: 08/09/23 11:22
Print Language: ROMANIAN
[2023-08-08] MEDS: APRESOLINE 25 MG PO ×2 (15:45→20:19)
[2023-08-08 17:02] LABS: Glucose - Point of Care 166 mg/dl (70-99)
[2023-08-08] MEDS: NOVOLOG FLEXPEN-LOW RESISTANCE 1 UNITS SC (17:37)
[2023-08-08] MEDS: NEURONTIN 100 MG PO (20:19)
[2023-08-08] MEDS: COUMADIN 6 MG PO (20:19)
[2023-08-08 20:35] LABS: Glucose - Point of Care 204 mg/dl (70-99)
[2023-08-08] MEDS: LANTUS 0.0599999999999999978 UNITS SC (22:20)
[2023-08-09] VITALS: BP 150/72
[2023-08-09 05:41] VITALS: BMI 26.4
[2023-08-09 05:51] LABS: PT 25.2 Sec (11.4-14.6)
--- NOTE | 2023-08-09 07:55 | PTCARENOTE ---
Pt discharged, plan for pickup by cousin at 11am. Meds and assessment as documented, no needs at this time.
[2023-08-09] MEDS: NOVOLOG FLEXPEN-LOW RESISTANCE SC (07:58)
[2023-08-09] MEDS: CATAPRES 0.100000000000000006 MG PO (07:59)
[2023-08-09] MEDS: PROTONIX 40 MG PO (07:59)
[2023-08-09] MEDS: ZOLOFT 100 MG PO (07:59)
[2023-08-09] MEDS: APRESOLINE 25 MG PO (07:59)
[2023-08-09] MEDS: PROCARDIA XL (EXTENDED RELEASE) 60 MG PO (07:59)
[2023-08-09] MEDS: DULCOLAX 10 MG PO (07:59)
[2023-08-09 08:00] VITALS: BP 137/66
[2023-08-09] MEDS: RENVELA 1600 MG PO (08:00)
[2023-08-09] MEDS: TYLENOL 1000 MG PO (08:00)
--- NOTE | 2023-08-09 09:26 | CM ---
MD entered ordered for discharge.
Spoke with patient he has HD at [facility] which he will resume tomorrow.
he aid he is ready for dc . Explained IMM and he agrees with dc .
His cousin Richi will drive him home.
As per care port [facility] accepted him.
Plan Homw with [facility]N: fax [phone].
--- NOTE | 2023-08-09 10:11 | W.PN.NEPH.PH ---
Today's Communication / Plan
-
Dialysis tomorrow at home unit at [facility]
Discharge today
Assessment/Plan
-
IMP:
Fall resulting in large left chest wall hematoma, in the setting of Coumadin use
Acute blood loss anemia on anemia of chronic kidney disease
CT chest shows 20 x 20 x 8 cm solid and cystic fluid collection the left chest wall system with hematoma
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
Chronic HFpEF
History of bilateral pleural effusions status post thoracentesis
History of pericardial effusion status post pericardiocentesis
Coronary artery disease
Paroxysmal atrial fibrillation
Essential hypertension
DM with multiple microvascular complications
Hyperlipidemia
Spinal stenosis
Migraine history
History of C. difficile
Anxiety/depression
L radial AVF
Severe lumbar spinal stenosis at multiple levels
Chronic low back pain with ambulatory dysfunction
Hyponatremia, hypervolemic
Plan:
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
Acute blood loss anemia
will plan HD Thursday with out heparin if patient not discharged today
Remains hypertensive, add back clonidine
held AC, vit K and Kcentra given
renal diet and FR when diet starts
-
-
Date of Service: August 09, 2023
CC / HPI / ROS
-
Chief Complaint:
ESRD on HD
History of Present Illness:
fall and chest wall hematoma
End-stage renal disease Thursday
Hemodynamically stable
Review of Systems:
pain
No shortness of breath
No fevers
Labs
-
Labs:
WBC 8.7 10^3/uL (4.8-10.8) 08/07/23 03:57
RBC 3.05 10^6/uL (4.70-6.10) L 08/07/23 03:57
Hgb 8.3 g/dL (13.0-18.0) L 08/07/23 03:57
Hct 26.1 % (39.0-52.0) L 08/07/23 03:57
Plt Count 354 10^3/uL (130-400) 08/07/23 03:57
Sodium 131 mmol/L (135-145) L 08/06/23 05:42
Potassium 3.8 mmol/L (3.5-5.1) 08/06/23 05:42
Chloride 95 mmol/L (98-107) L 08/06/23 05:42
Carbon Dioxide 26 mmol/L (22-30) 08/06/23 05:42
BUN 34 mg/dl (9-20) H 08/06/23 05:42
Creatinine 3.5 mg/dL (0.7-1.3) H 08/06/23 05:42
eGFR 19.28 08/06/23 05:42
Glucose 101 mg/dl (70-99) H 08/06/23 05:42
Calcium 7.9 mg/dl (8.4-10.2) L 08/06/23 05:42
Albumin 3.2 g/dl (3.5-5.0) L 08/03/23 03:23
Physical Exam
-
Vital Signs:
Vital Signs
Temp Pulse Resp BP Pulse Ox
97.7 F 66 13 150/72 95
08/08/23 23:24 08/09/23 07:59 08/09/23 06:00 08/09/23 07:59 08/08/23 21:45
Cardiovascular:: Regular rate and rhythm
Respiratory:: Bilateral: CTA
Lung Excursion:: Normal
Abdomen:: Nontender and Soft
Bowel Sounds:: Normal
Extremity Edema:: None: Bilateral:
--- NOTE | 2023-08-09 10:52 | PTCARENOTE ---
Discharge instructions reviewed, no questions verbalized at this time. Cousin enroute to pick patient up.
== END 2023-08-09 11:22 | disposition home health service (06) | DRG 813 ==
LOC: IMU 18:15
PROVIDERS: Hospitalist; Nurse Practitioner Family; Nurse Practitioner Gerontology; Registered Nurse; Specialist; Student in an Organized Health Care Education/Training Program; ADMITTING PHYSICIAN Hospitalist; ATTENDING PHYSICIAN Internal Medicine; CONSULT PHYSICIAN Internal Medicine; CONSULT PHYSICIAN Internal Medicine Gastroenterology; CONSULT PHYSICIAN Surgery; EMERGENCY PHYSICIAN Emergency Medicine; FAMILY PHYSICIAN Family Medicine
PROC: 30283B1 Transfusion of Nonautologous 4-Factor Prothrombin Complex Concentrate into Vein, Percutaneous Approach (ICD-10-PCS; 2023-07-29)
PROC: 30233N1 Transfusion of Nonautologous Red Blood Cells into Peripheral Vein, Percutaneous Approach (ICD-10-PCS; 2023-07-29)
PROC: 5A1D70Z Performance of Urinary Filtration, Intermittent, Less than 6 Hours Per Day (ICD-10-PCS; 2023-07-30)
DX: D68.32 Hemorrhagic disorder due to extrinsic circulating anticoagulants (principal); K29.01 Acute gastritis with bleeding; N18.6 End stage renal disease; I50.32 Chronic diastolic (congestive) heart failure; I13.2 Hypertensive heart and chronic kidney disease with heart failure and with stage 5 chronic kidney disease, or end stage renal disease; D62 Acute posthemorrhagic anemia; J98.11 Atelectasis; E87.1 Hypo-osmolality and hyponatremia; K92.0 Hematemesis; F33.9 Major depressive disorder, recurrent, unspecified; S30.1XXA Contusion of abdominal wall, initial encounter; D50.9 Iron deficiency anemia, unspecified; E11.22 Type 2 diabetes mellitus with diabetic chronic kidney disease; E11.40 Type 2 diabetes mellitus with diabetic neuropathy, unspecified; I25.10 Atherosclerotic heart disease of native coronary artery without angina pectoris; K21.9 Gastro-esophageal reflux disease without esophagitis; G89.29 Other chronic pain; D63.1 Anemia in chronic kidney disease; M48.061 Spinal stenosis, lumbar region without neurogenic claudication; R29.6 Repeated falls; I48.0 Paroxysmal atrial fibrillation; S20.212A Contusion of left front wall of thorax, initial encounter; T45.515A Adverse effect of anticoagulants, initial encounter; I45.10 Unspecified right bundle-branch block; G43.909 Migraine, unspecified, not intractable, without status migrainosus; K22.70 Barrett's esophagus without dysplasia; K59.00 Constipation, unspecified; E78.00 Pure hypercholesterolemia, unspecified; F41.9 Anxiety disorder, unspecified; E83.39 Other disorders of phosphorus metabolism; W18.39XA Other fall on same level, initial encounter; Y93.E9 Activity, other interior property and clothing maintenance; Y92.003 Bedroom of unspecified non-institutional (private) residence as the place of occurrence of the external cause; Z79.01 Long term (current) use of anticoagulants; Z87.891 Personal history of nicotine dependence; Z88.5 Allergy status to narcotic agent; Z79.4 Long term (current) use of insulin; Z99.2 Dependence on renal dialysis
CPT/HCPCS: 36430; 70450; 71250; 71260; 74018; 80048; 80053; 82248; 82607; 82728; 82746; 82962; 83036; 83540; 83550; 85014; 85018; 85025; 85027; 85610; 85730; 86850; 86900; 86901; 86920; 93005; 96374; 96375; 97116; 97163; 97167; 97530; 97535; 99291; G0257; J7168; P9016; P9047; Q5106; Q9967

== ENCOUNTER 2023-09-10 10:53 | Inpatient (IN) | payer MEDICARE, OTHER, SELFPAY ==
[2023-09-09] VITALS (12 sets, daily range): BP systolic 136–171; BP diastolic 56–81; PULSE 84; O2SAT 97; BMI 28.1
[2023-09-09 11:51] LABS: % Basophils 1.3 % (0-2); % Eosinophils 13.2 % (0-6); % Immature Granulocytes 0.4 % (0-0.5); % Lymphocytes 8.4 % (20.5-51.1); % Monocytes 12.3 % (1.7-9.3); % Neutrophils 64.4 % (42.2-75.2); Absolute Basophils 0.1 10^3/uL (0-0.2); Absolute Lymphocytes 0.6 10^3/uL (1.2-3.4); Absolute Monocytes 0.9 10^3/uL (0.1-0.6); Absolute Neutrophils 4.6 10^3/uL (1.4-6.5); Hematocrit 27.8 % (39.0-52.0); Hemoglobin 8.7 g/dL (13.0-18.0); Mean Corp Hgb Conc. 31.3 g/dL (33.0-37.0); Mean Corpuscular Hgb 25.8 pg (27.0-31.0); Mean Corpuscular Volume 82.5 fL (80.0-94.0); Mean Platelet Volume 9.7 fL (7.4-10.4); Nucleated Red Blood Cells % 0 % (-); Platelet Count 208 10^3/uL (130-400); Red Blood Cell Count 3.37 10^6/uL (4.70-6.10); Red Cell Dist. Width 20.1 % (11.5-14.5); White Blood Cell Count 7.2 10^3/uL (4.8-10.8)
--- NOTE | 2023-09-09 12:20 | ED.GENMED ---
History of Present Illness
General
Chief Complaint: Weakness
Time Seen by Provider: 09/09/23 12:05
Travel History
Have you had any contact with someone who has COVID-19?: No
Do you have any symptoms of coronavirus? Fever > 100 degrees, chills, cough, shortness of breath, sore throat, loss of taste or smell, muscle aches, or headache?: No
History of Present Illness
History of Present Illness:
58-year-old male with history of insulin-dependent diabetes, end-stage renal disease on dialysis, HFpEF, A-fib, hypertension, and hyperlipidemia presents to the emergency department for evaluation of generalized weakness worse in the lower
extremities. States that he lowered himself to the ground to slate picker something in his house today and could not get himself back up. Feels as though his legs may be more swollen than normal. Has been compliant with his diuretic medications. Was
due for dialysis today but missed it due to this ER visit. Did get his last dialysis on Thursday. He also reports dyspnea on exertion but denies chest pain or fevers.
Past History
Past History
ED Past Medical History: CAD, GERD, HTN, IDDM, Renal failure (End-stage renal disease), Psychiatric (Depression) and Other (Chronic low back pain, ambulatory dysfunction, anemia, pneumonia, pericardial effusion, pleural effusion, frequent falls,
neuropathy)
ED Past Surgical History: Other (Left arm AV graft)
Social History
Tobacco: Non-smoker
Employment: Disabled
Family History
Family History: Other (Noncontributory)
Review of Systems
Review of Systems
Allergies reviewed?: Yes
All Other Systems: ROS reviewed and negative except as documented in HPI and ROS
Phy Exam
Physical Exam
Physical Exam:
GEN: Well appearing, NAD, WDWN
Eyes: PERRLA, EOMs intact, no scleral icterus
HENT: NCAT, oral mucosa moist, no JVD, no cervical adenopathy.
Lungs: CTAB, no wheezes, rales, rhonchi, normal chest wall excursion
Cardiac: RRR, no M/R/G; Radial pulses 2+ bilat
Abdomen: S, NT, ND, NABS, no masses or hepatosplenomegaly
Neuro: AO x 3, no focal deficits to BUE/BLE. Bilateral lower extremity weakness noted however patient is able to perform a straight leg raise bilaterally
MSK: No gross deformity or ecchymosis. 2+ pitting edema bilateral lower extremities. AV fistula L lower arm
Skin: No rashes, petechiae. Normal color, no pallor or jaundice.
Psych: Calm, cooperative, proper hygiene
Course
Orders/Labs/Results
Orders:
Orders
09/09/23 11:38
EKG [Electrocardiogram (*1)] Urgent
Reason for Study: Tachycardia
EKG- Treatment ONCE
09/09/23 11:43
Complete Blood Count/With Diff Urgent
Comprehensive Metabolic Panel Urgent
09/09/23 12:20
CR Chest - 2 Views Urgent
Comment:
Reason For Exam: weakness, SUN
09/09/23 13:47
Pt Eval And Treat Urgent
Activity Level: Ambulate
09/09/23 15:40
Case Management Consult ONCE
Case Management Consult: Group Home Placement
Abnormal Lab Results
09/09/23
11:43
RBC 3.37 L 10^6/uL
(4.70-6.10)
Hgb 8.7 L g/dL
(13.0-18.0)
Hct 27.8 L %
(39.0-52.0)
MCH 25.8 L pg
(27.0-31.0)
MCHC 31.3 L g/dL
(33.0-37.0)
RDW 20.1 H %
(11.5-14.5)
Absolute Lymphs (auto) 0.6 L 10^3/uL
(1.2-3.4)
Absolute Monos (auto) 0.9 H 10^3/uL
(0.1-0.6)
Absolute Eos (auto) 1.0 H 10^3/uL
(0-0.7)
Lymphocytes % 8.4 L %
(20.5-51.1)
Monocytes % 12.3 H %
(1.7-9.3)
Eosinophils % 13.2 H %
(0-6)
Chloride 95 L mmol/L
(98-107)
BUN 54 H mg/dl
(9-20)
Creatinine 5.2 H* mg/dL
(0.7-1.3)
Glucose 167 H mg/dl
(70-99)
Alkaline Phosphatase 206 H U/L
(38-126)
Albumin 3.3 L g/dl
(3.5-5.0)
09/09/23 11:43
09/09/23 11:43
Vital Signs
Initial and Last Documented VS:
Initial Vital Signs
Temp Pulse Resp BP Pulse Ox
99.0 F 75 14 147/65 97
09/09/23 11:34 09/09/23 11:34 09/09/23 11:34 09/09/23 11:34 09/09/23 11:34
Last Documented Vital Signs
Temp Pulse Resp BP Pulse Ox
99.0 F 83 18 154/65 97
09/09/23 11:34 09/09/23 15:15 09/09/23 15:15 09/09/23 15:00 09/09/23 11:34
MDM/Problems Addressed
MDM/Problems Addressed:
Patient is medically stable, does appear to be mildly volume overloaded but with no signs of respiratory distress at rest. Labs are unremarkable and there is no indication for urgent dialysis. He was evaluated by physical therapy and felt to
require alf placement for rehab. Due to his extensive medical issues he will not be able to be placed urgently. Will be admitted due to ambulatory dysfunction and ultimately will need inpatient dialysis
*Critical Care Note
Total Time (30-74mins, 75-104mins- exclusive of procedures): Not Applicable
ED Attending Note
-
Portions of this chart may have been created with voice recognition software.� Occasional wrong word or��sound alike� substitutions may have occurred due to the inherent limitations of voice recognition software.
Discharge Plan
Departure
Patient Disposition: Admit
Date of Disposition: 09/09/23
Time of Disposition: 15:59
Admit to: Med/Surg
Presentation/result/management discussed w/ accepting MD/DO: Hospitalist
Discharge Problem:
Ambulatory dysfunction, ESRD on dialysis, Bilateral leg weakness, Hypervolemia
Prescriptions:
No Action
atorvastatin 80 mg Tablet
80 mg PO HS
clonidine HCl 0.1 mg Tablet
0.1 mg PO TID
icosapent ethyl [Vascepa] 1 gram Capsule
2 g PO BID
lidocaine-prilocaine 2.5-2.5 % Cream
1 applic TOPICAL MOWEFR PRN (Reason: port access)
Rx Instructions:
12/23/22 APPLY ONE HOUR PRIOR TO HD TO LEFT AVF
Aimovig Autoinjector 70 mg/mL auto-injector
70 mg SC MONTHLY
Patient Comments:
07/29/2023: pt states hasn't taken in a few months
nifedipine 60 mg Tablet Extended Release
60 mg PO BID Qty: 0 0RF
sevelamer carbonate 800 mg tablet
1,600 mg PO MEALS
Probiotic 3 billion cell Capsule
3,000 mmu cells PO DAILY
insulin aspart U-100 [Novolog FlexPen U-100 Insulin] 100 unit/mL (3 mL) insulin pen
1 sliding scale dose SC ACHS
polyethylene glycol 3350 [HealthyLax] 17 gram Powder In Packet
17 g PO DAILY PRN (Reason: constipation) Qty: 0 0RF
bumetanide 2 mg tablet
4 mg PO SUTUTHSA
sertraline 100 mg tablet
100 mg PO DAILY
oxycodone-acetaminophen 5-325 mg tablet
1 tab PO Q8H PRN (Reason: moderate pain)
Patient Comments:
09/09/2023: last filled 06/16/23, 90 tabs for 30 days from [id number]
warfarin 6 mg tablet
6 mg PO QPM
hydralazine 100 mg tablet
100 mg PO TID
losartan 100 mg tablet
100 mg PO DAILY
Dialyvite 100-1 mg tablet
1 tab PO QPM
insulin degludec [Tresiba U-100 Insulin] 100 unit/mL solution
6 unit SC HS
gabapentin 100 mg Capsule
100 mg PO HS Qty: 30 0RF
pantoprazole [Protonix] 40 mg tablet,delayed release (DR/EC)
40 mg PO BID Qty: 60 0RF
acetaminophen [Tylenol Extra Strength] 500 mg tablet
1,000 mg PO TID
Referrals:
Rosemarie Paige DO [Family Provider] -
Interventions
Interventions:
*Risk Screen - Suicide Last Done: 09/09/23 11:34
*General Assessment Last Done: 09/09/23 11:34
*Neglect/Abuse Screening Last Done: 09/09/23 11:34
ED- Fall Risk Assessment Last Done: 09/09/23 11:41
*ED COVID-19 Vaccine History Last Done: 09/09/23 11:34
ED- Cardiac Assessment Last Done: 09/09/23 11:41
ED- Neurological Assessment Last Done: 09/09/23 11:41
ED- Pulmonary Assessment Last Done: 09/09/23 11:41
Discharge Date and Time
Print Language: MACANESE
[2023-09-09 12:51] LABS: ALT (SGPT) 12 U/L (0-50); AST (SGOT) 37 U/L (17-59); Albumin 3.3 g/dl (3.5-5.0); Alkaline Phosphatase 206 U/L (38-126); Blood Urea Nitrogen 54 mg/dl (9-20); Calcium 8.6 mg/dl (8.4-10.2); Carbon Dioxide 30 mmol/L (22-30); Chloride 95 mmol/L (98-107); Estimated Creatinine Clearance 16 ml/min; Glucose 167 mg/dl (70-99); Potassium 4.2 mmol/L (3.5-5.1); Sodium 136 mmol/L (135-145); Total Bilirubin 0.9 mg/dl (0.2-1.3); eGFR 11.99
--- NOTE | 2023-09-09 16:19 | CM ---
CM was consulted to discuss placement options. CM met with patient in room. Patient confirms that he lives with his cousin in a split level home. Patient has been known to [facility] for home care. Patient have been to [facility] and [facility]. He uses a walker for ambulation. Patient is active with his PCP. Patient uses [facility] for medication services. Patient goes to [facility] ([facility])
Patient stated that he does not want to go to [facility], but would be agreeable to [facility]. CM sent referral via [facility] to [facility].
PLAN: SNF
--- NOTE | 2023-09-09 16:24 | HPS.HSE ---
Family Physician
-
Family Physician: Rosemarie Pagie
Chief Complaint
-
weakness
History of Present Illness
58-year-old male past medical history of ESRD on hemodialysis Thursday, Thursday, Thursday, anemia of chronic kidney disease, recent left chest wall hematoma, gastritis, constipation, hypertension, paroxysmal atrial fibrillation on Coumadin, coronary
artery disease, chronic HFpEF, history of bilateral pleural effusions, pericardial effusion status post pericardiocentesis, hyponatremia, type 2 diabetes, hyperlipidemia, spinal stenosis, migraine history, history of C. difficile,
anxiety/depression, former smoker, former alcohol user, presenting for generalized weakness worse in lower extremities. He had to lower himself to the ground to steel pickler something in his house today and could not get himself back up. He has been
compliant with diuretics. He missed dialysis today and last had dialysis on Thursday.
He is occasionally short of breath but denies any shortness of breath right now. He denies any chest pain or fevers. He denies any significant new cough.
Medical History
Past Medical History
Past Medical History: Reports Other (ESRD on hemodialysis Thursday, Thursday, Thursday, anemia of chronic kidney disease, recent left chest wall hematoma, gastritis, constipation, hypertension, paroxysmal atrial fibrillation on Coumadin, coronary
artery disease, chronic HFpEF, history of bilateral pleural effusions, pericardial effusion s)
Past Surgical History: Reports Other ((Left arm AV graft))
Social History
Tobacco: Former Smoker
Alcohol: Former
Drug: None
Family History
Family History: Not pertinent
Allergies / Home Medications
Allergies reflects when Allergies were last updated in [employer].
Home Medications with original date entered in [employer] Vo[employer]
Allergy/Medication List:
Allergies
Allergy/AdvReac Type Severity Reaction Status Date / Time
morphine Allergy Unknown Verified 09/09/23 13:31
Home Medications
atorvastatin 80 mg tablet 80 mg PO HS High Cholesterol 12/23/22
clonidine HCl 0.1 mg tablet 0.1 mg PO TID Blood Pressure 12/23/22
icosapent ethyl 1 gram capsule (Vascepa) 2 g PO BID High Cholesterol 12/23/22
lidocaine-prilocaine 2.5 %-2.5 % topical cream 1 applic topical MOWEFR PRN port access 12/23/22
erenumab-aooe 70 mg/mL subcutaneous auto-injector (Aimovig Autoinjector) 70 mg SC MONTHLY migraine 02/05/23
nifedipine 60 mg tablet,extended release 60 mg PO BID Blood Pressure #0 tabs 02/13/23
insulin aspart U-100 100 unit/mL (3 mL) subcutaneous pen (Novolog FlexPen U-100 Insulin aspart) 1 sliding scale dose SC ACHS diabetes 03/30/23
lactobacillus combination no.4 3 billion cell capsule (Probiotic) 3,000 mmu cells PO DAILY probiotic 03/30/23
sevelamer carbonate 800 mg tablet 1,600 mg PO MEALS Kidney Disease 03/30/23
polyethylene glycol 3350 17 gram oral powder packet (HealthyLax) 17 g PO DAILY PRN constipation #0 ea 04/10/23
bumet[facility]ide 2 mg tablet 4 [facility] Fluid Retention/Swelling 07/29/23
hydralazine 100 mg tablet 100 mg PO TID Blood Pressure 07/29/23
insulin degludec 100 unit/mL subcutaneous solution (Tresiba U-100 Insulin) 6 unit SC HS Diabetes 07/29/23
losartan 100 mg tablet 100 mg PO DAILY Blood Pressure 07/29/23
oxycodone-acetaminophen 5 mg-325 mg tablet 1 tab PO Q8H PRN moderate pain 07/29/23
sertraline 100 mg tablet 100 mg PO DAILY Mental Health 07/29/23
vitamin B complex-vitamin C 100 mg-folic acid 1 mg tablet (Dialyvite) 1 tab PO QPM Supplement 07/29/23
warfarin 6 mg tablet 6 mg PO QPM Blood Clot Prevention/Tx 07/29/23
acetaminophen 500 mg tablet (Tylenol Extra Strength) 1,000 mg PO TID Pain 09/09/23
gabapentin 100 mg capsule 100 mg PO HS Pain 09/09/23
pantoprazole 40 mg tablet,delayed release (Protonix) 40 mg PO BID Gastrointestinal Issue 09/09/23
Review of Systems
-
History Source: Patient
A 12 point ROS was completed and negative except as noted: Yes
Constitutional: Reports No Symptoms
EENT: Reports No Symptoms
Respiratory: Reports No Symptoms
Cardiac: Reports No Symptoms
Abdomen/GI: Reports No Symptoms
: Reports No Symptoms
Musculoskeletal: Reports No Symptoms
Skin: Reports No Symptoms
Neurological: Reports No Symptoms
Endocrine: Reports No Symptoms
Hematologic/Lymphatic: Reports No Symptoms
Psych: Reports No Symptoms
Physical Exam
Vital Signs
Vital Signs
Temp Pulse Resp BP Pulse Ox
99.0 F 83 18 154/65 97
09/09/23 11:34 09/09/23 15:15 09/09/23 15:15 09/09/23 15:00 09/09/23 11:34
Physical Exam
General: Well Developed, Well Nourished and No Apparent Distress
HEENT: NormoCephalic, Moist mucous membranes and Atraumatic
Respiratory: Clear
Cardiac: S1/S2 and Regular Rhythm; No Murmur or Rub
GI: Soft, Non Tender, Non Distended and Normal Bowel Sounds; No Organomegaly
Rectal: Deferred by Provider
Musculoskeletal: No Clubbing, No Cyanosis and No Edema
Skin: No Rash
Neuro: Nonfocal/grossly intact
Laboratory Results
-
09/09/23 11:43
09/09/23 11:43
Laboratory Results
Total Bilirubin 0.9 mg/dl (0.2-1.3) 09/09/23 11:43
AST 37 U/L (17-59) 09/09/23 11:43
ALT 12 U/L (0-50) 09/09/23 11:43
Alkaline Phosphatase 206 U/L (38-126) H 09/09/23 11:43
Data Reviewed
-
Lab Data: Labs Reviewed by me
Old Records: Reviewed
Impression/Plan
-
IMPRESSION:
PLAN:
# Weakness/ambulatory dysfunction secondary to deconditioning in the setting of chronic medical conditions and recent hospitalizations
-PT/OT
-Case management consulted for placement and not possible today
Recent chest wall hematoma in the setting of Coumadin use
ESRD on hemodialysis M, W, F
-Missed dialysis session today
-Continue sevelamer
-Nephrology consulted
Anemia of chronic kidney disease
-Hemoglobin stable at 8.7
Chronic HFpEF
-continue bumex
History of bilateral pleural effusions status post thoracentesis
-Chest x-ray shows likely small bilateral pleural effusions loculated on the right probably slightly greater on the right compared to left,
History of pericardial effusion status post pericardiocentesis
Coronary artery disease
-Continue statin
Paroxysmal atrial fibrillation
-Continue Coumadin
Essential hypertension
-Continue clonidine, hydralazine, losartan, nifedipine
Type 2 diabetes
-Insulin sliding scale
-Continue Tresiba 6 units at night
Hyperlipidemia
-Continue Vascepa
Spinal stenosis
-Continue gabapentin, Percocet
Migraine history
History of C. difficile
History of esophagitis/gastritis
-Continue Protonix
Constipation
Anxiety/depression
-Continue sertraline
Former smoker
Former alcohol use
Full code
DVT prophylaxis�Coumadin
Renal diet
[2023-09-09 18:05] LABS: Glucose - Point of Care 201 mg/dl (70-99)
[2023-09-09] MEDS: NOVOLOG FLEXPEN-LOW RESISTANCE 2 UNITS SC (18:44)
[2023-09-09] MEDS: B COMPLEX w/VITAMIN C 1 CAPLET PO (18:51)
[2023-09-09] MEDS: RENVELA 1600 MG PO (18:52)
[2023-09-09] MEDS: COUMADIN 6 MG PO (18:52)
[2023-09-09] MEDS: PROCARDIA XL (EXTENDED RELEASE) 60 MG PO (20:58)
[2023-09-09] MEDS: PROTONIX 40 MG PO (20:58)
[2023-09-09] MEDS: NEURONTIN 100 MG PO (21:00)
[2023-09-09] MEDS: TYLENOL 1000 MG PO (21:00)
[2023-09-09] MEDS: CATAPRES 0.100000000000000006 MG PO (21:02)
[2023-09-09] MEDS: LIPITOR 80 MG PO (21:02)
[2023-09-09] MEDS: APRESOLINE 100 MG PO (21:15)
[2023-09-09 21:50] LABS: Glucose - Point of Care 224 mg/dl (70-99)
[2023-09-09] MEDS: LANTUS 0.0599999999999999978 UNITS SC (22:13)
[2023-09-10] MEDS: PERCOCET 5/325 1 TABLET PO ×2 (01:23→11:27)
[2023-09-10 06:00] VITALS: BMI 28.0
[2023-09-10 06:36] LABS: % Basophils 1.1 % (0-2); % Eosinophils 12.8 % (0-6); % Immature Granulocytes 0.3 % (0-0.5); % Lymphocytes 14.7 % (20.5-51.1); % Monocytes 13.2 % (1.7-9.3); % Neutrophils 57.9 % (42.2-75.2); Absolute Basophils 0.1 10^3/uL (0-0.2); Absolute Lymphocytes 1.2 10^3/uL (1.2-3.4); Absolute Monocytes 1.1 10^3/uL (0.1-0.6); Absolute Neutrophils 4.6 10^3/uL (1.4-6.5); Hematocrit 27.1 % (39.0-52.0); Hemoglobin 8.4 g/dL (13.0-18.0); Mean Corpuscular Hgb 25.8 pg (27.0-31.0); Mean Corpuscular Volume 83.4 fL (80.0-94.0); Mean Platelet Volume 10.2 fL (7.4-10.4); Nucleated Red Blood Cells % 0 % (-); Platelet Count 220 10^3/uL (130-400); Red Blood Cell Count 3.25 10^6/uL (4.70-6.10); Red Cell Dist. Width 20.3 % (11.5-14.5)
[2023-09-10 07:04] LABS: Glucose - Point of Care 52 mg/dl (70-99)
[2023-09-10 07:20] VITALS: BP 182/87
[2023-09-10 07:25] LABS: ALT (SGPT) 10 U/L (0-50); AST (SGOT) 25 U/L (17-59); Albumin 3.1 g/dl (3.5-5.0); Alkaline Phosphatase 192 U/L (38-126); Blood Urea Nitrogen 57 mg/dl (9-20); Calcium 8.6 mg/dl (8.4-10.2); Carbon Dioxide 29 mmol/L (22-30); Chloride 95 mmol/L (98-107); Estimated Creatinine Clearance 13 ml/min; Glucose 53 mg/dl (70-99); Potassium 4.1 mmol/L (3.5-5.1); Sodium 136 mmol/L (135-145); Total Bilirubin 0.8 mg/dl (0.2-1.3); Total Protein 6.8 g/dl (6.3-8.2); eGFR 9.52
[2023-09-10 07:29] LABS: Glucose - Point of Care 87 mg/dl (70-99)
[2023-09-10] MEDS: NOVOLOG FLEXPEN-LOW RESISTANCE SC ×3 (08:12→17:28)
[2023-09-10] MEDS: RENVELA 1600 MG PO ×3 (08:15→17:26)
[2023-09-10] MEDS: PROTONIX 40 MG PO ×2 (08:16→20:50)
[2023-09-10] MEDS: TYLENOL 1000 MG PO ×3 (08:16→22:18)
[2023-09-10] MEDS: VISBIOME 1 CAP PO (08:16)
[2023-09-10] MEDS: RETACRIT 8000 UNITS IV (09:14)
[2023-09-10 09:34] LABS: Glycohemoglobin (HgbA1c) 5.5 % (4.0-5.6)
--- NOTE | 2023-09-10 10:52 | W.PN.HOSP.TC ---
Today's Communication/Plan
-
Check ultrasound chest assess for fusion
On HD
Monitor blood pressure
Ongoing disposition
Assessment / Plan
Assessment / Plan
General: Well Developed, Well Nourished and No Apparent Distress
HEENT: NormoCephalic, Moist mucous membranes and Atraumatic
Respiratory: Clear
Cardiac: S1/S2 and Regular Rhythm; No Murmur or Rub
GI: Soft, Non Tender, Non Distended and Normal Bowel Sounds; No Organomegaly
Rectal: Deferred by Provider
Musculoskeletal: No Clubbing, No Cyanosis and No Edema, LUE AVF
Skin: No Rash
Neuro: Nonfocal/grossly intact
# Weakness/ambulatory dysfunction secondary to deconditioning in the setting of chronic medical conditions and recent hospitalizations
-PT/OT
-Agreeable for SNF placement
Recent chest wall hematoma in the setting of Coumadin use
ESRD on hemodialysis M, W, F
Volume Overload with interstitial pulmonary edema secondary to ESRD
-Continue sevelamer
-Hd per schedule. May need additional volume removal.
-Nephrology consulted
Anemia of chronic kidney disease
-Hemoglobin stable at 8.7 to 8.4
Chronic HFpEF
-continue bumex
History of bilateral pleural effusions status post thoracentesis
-Chest x-ray shows likely small bilateral pleural effusions loculated on the right probably slightly greater on the right compared to left,
-Check ultrasound chest to assess for effusion.
History of pericardial effusion status post pericardiocentesis
Coronary artery disease
-Continue statin
Paroxysmal atrial fibrillation
Chronic coagulopathy with Coumadin
-Continue Coumadin
-INR therapeutic at 2.3
-Daily INR
Essential hypertension
HTUN urgency
-Continue clonidine, hydralazine, losartan, nifedipine
-Volume removal should help
Type 2 diabetes
-Insulin sliding scale
-Continue Tresiba 6 units at night
Hyperlipidemia
-Continue Vascepa
Spinal stenosis
-Continue gabapentin, Percocet
Migraine history
History of C. difficile
History of esophagitis/gastritis
-Continue Protonix
Constipation
Anxiety/depression
-Continue sertraline
Former smoker
Former alcohol use
Full code
DVT prophylaxis�Coumadin
Anticipated Discharge: Within 24 hours
Subjective/Interval History
-
Date of Service: September 10, 2023
states of weakness
Objective Data
-
Labs:
Laboratory Results
09/10/23 09/10/23
05:33 08:04
WBC 8.0
Hgb 8.4 L
Hct 27.1 L
Plt Count 220
Sodium 136 Pending
Potassium 4.1 Pending
Chloride 95 L Pending
Carbon Dioxide 29 Pending
BUN 57 H Pending
Creatinine 6.3 H* Pending
Glucose 53 L* Pending
Calcium 8.6 Pending
Total Bilirubin 0.8
AST 25
ALT 10
Alkaline Phosphatase 192 H
Vital Signs:
Vital Signs
Temp Pulse Resp BP Pulse Ox
99.6 F 77 18 182/87 96
09/09/23 23:21 09/10/23 07:20 09/10/23 07:20 09/10/23 07:20 09/10/23 07:20
I&O
09/09/23 09/10/23 09/11/23
06:59 06:59 06:59
Intake Total 400 / 400
Output Total 0 / 0
Balance 400 / 400
Data Reviewed
-
Total Time Spent with Patient (in minutes): 55
--- NOTE | 2023-09-10 11:03 | CM ---
Patient seen bedside received dialysis, initial assessment completed. Patient resides with his cousin in a split level home, 8 steps to enter. Patient reports having two walkers at home, is current with [facility]. Patient has been to [facility]
SNF and [facility] SNF in past. Patient confirms PCP Rosemarie Paige, pharmacy [facility], confirms prescription coverage. Patient denies food insecurities at home. CM discussed patient is observation status, LARSON form provided, refused
to sign, placed in patients chart. CM discussed PT recommendation of SNF, discussed patient would have to private pay to SNF, patient reports he is unable to afford private pay. CM will continue to follow for discharge planning needs.
Plan; home with VN vs SNF.
[2023-09-10 11:15] LABS: Glucose - Point of Care 74 mg/dl (70-99)
[2023-09-10] MEDS: ZOLOFT 100 MG PO (11:23)
[2023-09-10] MEDS: CATAPRES 0.100000000000000006 MG PO ×3 (11:23→22:20)
[2023-09-10] MEDS: PROCARDIA XL (EXTENDED RELEASE) 60 MG PO ×2 (11:23→20:49)
[2023-09-10] MEDS: COZAAR 100 MG PO (11:24)
[2023-09-10] MEDS: APRESOLINE 100 MG PO ×3 (11:24→22:18)
[2023-09-10] MEDS: BUMEX PO (11:25)
--- NOTE | 2023-09-10 13:29 | W.CON.NEPH ---
Consultation
-
Date/Time Consultation Requested: 09/09/23 17:53
Date/Time Consultation Performed: 09/10/2023 1:30PM
Requesting Provider: Aylin Colin
Performing Provider: Nataly Otto
Reason for Consultation: ESRD on HD
Medical History
-
Chief Complaint: ESRD on HD
History of Present Illness:
Mr. King is a 58YOM with PMH of ESRD on hemodialysis for 5yr (MWF at [facility]) HFpEF, pleural effusions previous thoracentesis, on chr diuretics with bumex still, IDDM HTN on hydralazine, Procardia and clonidine, Hyperphosphatemia on
renvela, coronary artery disease, paroxysmal atrial fibrillation on Coumadin, anemia of chronic disease, diabetes, spinal stenosis presenting with weakness of his lower extremities and recurrent falls. He states that he feels that his legs are so
weak and that he fell and could not get back up yesterday.
His last HD was on Thursday. He did miss Thursday due to weakness.
Continues to endorse pain in the chest after recent. Otherwise feels well
Past Medical History
1. ESRD x5 years presumed due to diabetic nephropathy.
2. Chronic pain.
3. Chronic back pain.
4. Atrial fibrillation on Coumadin.
5. Chronic anemia.
6. History of thoracentesis.
7. History of pericardiocentesis at outside hospital back in fall
of 2022.
8. Elevated HEYDI with subsequent negative testing.
9. Peripheral neuropathy.
10. History of left upper extremity radiocephalic AV fistula.
11. History of hypertension on multi-drug regimen.
12. History of coronary artery disease.
13. History of peripheral eosinophilia.
14. Hyperphosphatemia.
Past Medical History: Other
Past Surgical History: Other (Left arm AVG)
Social History
Tobacco: Former Smoker
Alcohol: Former
Drug: None
Family History
Family History: Not Pertinent
Allergies / Home Medications
Allergy/AdvReac Type Severity Reaction Status Date / Time
morphine Allergy Unknown Verified 09/09/23 13:31
�Medication �Instructions �Recorded �Confirmed �Type
atorvastatin 80 mg tablet 80 mg PO HS High Cholesterol 12/23/22 09/09/23 History
clonidine HCl 0.1 mg tablet 0.1 mg PO TID Blood Pressure 12/23/22 09/09/23 History
icosapent ethyl 1 gram capsule 2 g PO BID High Cholesterol 12/23/22 09/09/23 History
(Vascepa)
lidocaine-prilocaine 2.5 %-2.5 % 1 applic topical MOWEFR PRN port 12/23/22 09/09/23 History
topical cream access
erenumab-aooe 70 mg/mL 70 mg SC MONTHLY migraine 02/05/23 09/09/23 History
subcutaneous auto-injector
(Aimovig Autoinjector)
nifedipine 60 mg tablet,extended 60 mg PO BID Blood Pressure #0 tabs 02/13/23 09/09/23 Rx
release
insulin aspart U-100 100 unit/mL 1 sliding scale dose SC ACHS 03/30/23 09/09/23 History
(3 mL) subcutaneous pen (Novolog diabetes
FlexPen U-100 Insulin aspart)
lactobacillus combination no.4 3 3,000 mmu cells PO DAILY probiotic 03/30/23 09/09/23 History
billion cell capsule (Probiotic)
sevelamer carbonate 800 mg tablet 1,600 mg PO MEALS Kidney Disease 03/30/23 09/09/23 History
polyethylene glycol 3350 17 gram 17 g PO DAILY PRN constipation #0 04/10/23 09/09/23 Rx
oral powder packet (HealthyLax) ea
bumetanide 2 mg tablet 4 mg PO SUTUTHSA Fluid 07/29/23 09/09/23 History
Retention/Swelling
hydralazine 100 mg tablet 100 mg PO TID Blood Pressure 07/29/23 09/09/23 History
insulin degludec 100 unit/mL 6 unit SC HS Diabetes 07/29/23 09/09/23 History
subcutaneous solution (Tresiba
U-100 Insulin)
losartan 100 mg tablet 100 mg PO DAILY Blood Pressure 07/29/23 09/09/23 History
oxycodone-acetaminophen 5 mg-325 1 tab PO Q8H PRN moderate pain 07/29/23 09/09/23 History
mg tablet
sertraline 100 mg tablet 100 mg PO DAILY Mental Health 07/29/23 09/09/23 History
vitamin B complex-vitamin C 100 1 tab PO QPM Supplement 07/29/23 09/09/23 History
mg-folic acid 1 mg tablet
(Dialyvite)
warfarin 6 mg tablet 6 mg PO QPM Blood Clot 07/29/23 09/09/23 History
Prevention/Tx
acetaminophen 500 mg tablet 1,000 mg PO TID Pain 09/09/23 09/09/23 History
(Tylenol Extra Strength)
gabapentin 100 mg capsule 100 mg PO HS Pain 09/09/23 09/09/23 History
pantoprazole 40 mg tablet,delayed 40 mg PO BID Gastrointestinal Issue 09/09/23 09/09/23 History
release (Protonix)
Review of Systems
-
History Source: Patient
All other systems: Negative unless noted
Respiratory: Other (pain over prior hematoma site)
Physical Exam
Vital Signs
Vital Signs
Temp Pulse Resp BP Pulse Ox
99.6 F 79 18 190/92 96
09/09/23 23:21 09/10/23 11:24 09/10/23 07:20 09/10/23 11:24 09/10/23 07:20
Lab Results
WBC 8.0 10^3/uL (4.8-10.8) 09/10/23 05:33
RBC 3.25 10^6/uL (4.70-6.10) L 09/10/23 05:33
Hgb 8.4 g/dL (13.0-18.0) L 09/10/23 05:33
Hct 27.1 % (39.0-52.0) L 09/10/23 05:33
Plt Count 220 10^3/uL (130-400) 09/10/23 05:33
eGFR 9.52 09/10/23 05:33
Albumin 3.1 g/dl (3.5-5.0) L 09/10/23 05:33
Physical Exam
General: AOx3
HEENT: PERRL, EOMI, Anicteric, Conjunctivae Clear, Ear/Nose Intact, Hearing Normal, Oropharynx Clear/Moist, Dentition Intact, Facial Symmetry and Neck Supple
Respiratory: Clear
Cardiac: S1/S2 and Regular Rate/Rhythm
Breast: N/A
Abdomen: Soft, Nontender, Nondistended and Normal Bowel Sounds
Rectal: Deferred by Provider
Genito-urinary: No Costovertebral Tender
Musculoskeletal: No Clubbing, No Cyanosis and No Edema
Skin: No Rash, Warm and Dry
Neuro: Nonfocal/Grossly Intact
Hematologic/Lymphatic: No Cervical Lymphadenopathy
Psych: Mood/afflect pleasant and Insight/judgement good
Vascular Access: AVG
Data Reviewed
-
Radiology: Image Personally Visualized and interpreted (bilateral pleural effusions)
Labs: Labs Reviewed by me and Discussed with Patient
Old Records: Reviewed
Assessment/Plan
-
IMP:
Weakness and falls
Anemia
ESRD presumed DM nephropathy-on hemodialysis M, W, F, [facility]
Chronic HFpEF
History of bilateral pleural effusions status post thoracentesis
History of pericardial effusion status post pericardiocentesis
Coronary artery disease
Paroxysmal atrial fibrillation
Essential hypertension
DM with multiple microvascular complications
Hyperlipidemia
Spinal stenosis
Migraine history
History of C. difficile
Anxiety/depression
L radial AVF
Severe lumbar spinal stenosis at multiple levels
Chronic low back pain with ambulatory dysfunction
Plan:
HD while in hospital on MWF
will need placement for rehab
hypertensive today, restart all home BP meds
--- NOTE | 2023-09-10 13:54 | W.PN.NEPH.HD ---
Assessment
-
- JAIME given
- doing well on HD
Progress Note - Hemodialysis
-
Date of Service: September 10, 2023
Duration: 30 minutes and 3 hours
Potassium Bath: 3
Calcium Bath: 2.5
Opti-Dialyzer: 160
Ultrafiltration: Other
Blood Flow: 400
Dialysate Flow: 600
[2023-09-10 14:15] VITALS: BP 120/53
[2023-09-10 15:19] VITALS: BP 130/64; PULSE 80; O2SAT 99
[2023-09-10 15:20] VITALS: BP 130/64
[2023-09-10 15:26] VITALS: BP 130/64; PULSE 80; O2SAT 99
[2023-09-10 16:02] LABS: Blood Urea Nitrogen 32 mg/dl (9-20); Calcium 8.4 mg/dl (8.4-10.2); Carbon Dioxide 29 mmol/L (22-30); Chloride 93 mmol/L (98-107); Estimated Creatinine Clearance 23 ml/min; Glucose 115 mg/dl (70-99); Sodium 133 mmol/L (135-145); eGFR 18.04
[2023-09-10 16:29] LABS: PT 52.5 Sec (11.4-14.6)
[2023-09-10 16:39] LABS: INR 5.69
[2023-09-10] MEDS: B COMPLEX w/VITAMIN C 1 CAPLET PO (17:26)
[2023-09-10 17:29] LABS: Glucose - Point of Care 132 mg/dl (70-99)
[2023-09-10 21:41] LABS: Glucose - Point of Care 199 mg/dl (70-99)
[2023-09-10] MEDS: LIPITOR 80 MG PO (22:19)
[2023-09-10] MEDS: NEURONTIN 100 MG PO (22:20)
[2023-09-10] MEDS: LANTUS 0.0599999999999999978 UNITS SC (22:21)
[2023-09-10 23:35] VITALS: BP 171/83
[2023-09-11 00:10] VITALS: BP 171/83
[2023-09-11 02:57] LABS: Glucose - Point of Care 137 mg/dl (70-99)
[2023-09-11 06:00] VITALS: BMI 27.6
[2023-09-11] MEDS: EMLA CREAM 1 GRAM TOPICAL (06:12)
[2023-09-11] MEDS: CATAPRES 0.100000000000000006 MG PO ×3 (06:12→21:30)
--- NOTE | 2023-09-11 06:16 | PTCARENOTE ---
Pt with continuously elevated BP's throughout shift and hospital stay, asymptomatic. Repeat BP 156/72 with HR of 75. D/w covering GRAPHIC DESIGN SPECIALIST, considering pt due for dialysis this AM, okay to give Clonidine early for continued hypertension. Pt denies a hx
of hypotension with HD. Pt agreeable to POC. Resting comfortably in bed ordering breakfast.
[2023-09-11 06:24] LABS: Glucose - Point of Care 53 mg/dl (70-99)
[2023-09-11 06:46] LABS: Glucose - Point of Care 74 mg/dl (70-99)
[2023-09-11 06:59] LABS: INR 4.96; PT 47.1 Sec (11.4-14.6)
[2023-09-11 07:15] VITALS: BP 155/77
[2023-09-11 08:04] LABS: Glucose - Point of Care 95 mg/dl (70-99)
[2023-09-11] MEDS: PROTONIX 40 MG PO ×2 (08:32→21:31)
[2023-09-11] MEDS: TYLENOL 1000 MG PO ×3 (08:32→21:31)
[2023-09-11 09:19] LABS: Hematocrit 27.1 % (39.0-52.0); Hemoglobin 8.5 g/dL (13.0-18.0)
[2023-09-11 09:31] LABS: Carbon Dioxide 28 mmol/L (22-30); Chloride 94 mmol/L (98-107); Potassium 4.6 mmol/L (3.5-5.1); Sodium 133 mmol/L (135-145)
[2023-09-11] MEDS: RETACRIT 8000 UNITS IV (09:43)
--- NOTE | 2023-09-11 11:44 | W.PN.NEPH.HD ---
Assessment
-
Seen on HD. no complaints. VSS, access ok
await rehab
Progress Note - Hemodialysis
-
Date of Service: September 11, 2023
Duration: 30 minutes and 3 hours
Potassium Bath: 3
Calcium Bath: 2.5
Opti-Dialyzer: 160
Ultrafiltration: Other (2.5kg)
Blood Flow: 400
Dialysate Flow: 600
Heparin: no
EPO: 8000 units
[2023-09-11] MEDS: RENVELA PO (11:48)
[2023-09-11] MEDS: NOVOLOG FLEXPEN-LOW RESISTANCE SC ×3 (11:48→17:15)
[2023-09-11] MEDS: VISBIOME 1 CAP PO (11:49)
[2023-09-11] MEDS: RENVELA 1600 MG PO ×2 (11:49→17:10)
[2023-09-11] MEDS: ZOLOFT 100 MG PO (11:49)
[2023-09-11] MEDS: APRESOLINE 100 MG PO ×3 (11:51→21:30)
[2023-09-11] MEDS: PROCARDIA XL (EXTENDED RELEASE) 60 MG PO ×2 (11:51→21:30)
[2023-09-11] MEDS: COZAAR 100 MG PO (11:51)
[2023-09-11 11:53] LABS: Glucose - Point of Care 57 mg/dl (70-99)
--- NOTE | 2023-09-11 12:02 | W.PN.HOSP.TC ---
Today's Communication/Plan
-
Hold coumadin
daily INR
HD today
monitor O2
Assessment / Plan
Assessment / Plan
General: Well Developed, Well Nourished and No Apparent Distress
HEENT: NormoCephalic, Moist mucous membranes and Atraumatic
Respiratory: Clear
Cardiac: S1/S2 and Regular Rhythm; No Murmur or Rub
GI: Soft, Non Tender, Non Distended and Normal Bowel Sounds; No Organomegaly
Rectal: Deferred by Provider
Musculoskeletal: No Clubbing, No Cyanosis and No Edema, LUE AVF
Skin: No Rash
Neuro: Nonfocal/grossly intact
# Weakness/ambulatory dysfunction secondary to deconditioning in the setting of chronic medical conditions and recent hospitalizations
-PT/OT
-Agreeable for SNF placement
Recent chest wall hematoma in the setting of Coumadin use
ESRD on hemodialysis M, W, F
Volume Overload with interstitial pulmonary edema secondary to ESRD
-Continue sevelamer
-Hd per schedule. May need additional volume removal.
-Nephrology consulted
Anemia of chronic kidney disease
-Hemoglobin stable at 8.7 to 8.4
Chronic HFpEF
-continue bumex
History of bilateral pleural effusions status post thoracentesis
-Chest x-ray shows likely small bilateral pleural effusions loculated on the right probably slightly greater on the right compared to left,
- ultrasound chest R pleural effusion. INR supratherapeutic. Repeat HD today so help with volume removal. on room air.
History of pericardial effusion status post pericardiocentesis
Coronary artery disease
-Continue statin
Paroxysmal atrial fibrillation
Chronic coagulopathy with Coumadin
Supratherapeutic INR
-Hold Coumadin
-INR elevated at 4.96
-Daily INR
Essential hypertension
HTN urgency
-Continue clonidine, hydralazine, losartan, nifedipine
-Volume removal should help
Type 2 diabetes
-Insulin sliding scale
-Continue Tresiba 6 units at night
Hyperlipidemia
-Continue Vascepa
Spinal stenosis
-Continue gabapentin, Percocet
Migraine history
History of C. difficile
History of esophagitis/gastritis
-Continue Protonix
Constipation
Anxiety/depression
-Continue sertraline
Former smoker
Former alcohol use
Full code
DVT prophylaxis�Coumadin
PT/OT-Home VN vs. SNF. CM aware.
Anticipated Discharge: Within 24 hours
Subjective/Interval History
-
Date of Service: September 11, 2023
seen on HD
denies sob. on room air.
Objective Data
-
Labs:
Laboratory Results
09/11/23 09/11/23
05:30 08:58
Hgb 8.5 L
Hct 27.1 L
PT 47.1 H
INR 4.96
Sodium 133 L
Potassium 4.6
Chloride 94 L
Carbon Dioxide 28
Vital Signs:
Vital Signs
Temp Pulse Resp BP Pulse Ox
98.8 F 78 18 187/82 98
09/11/23 07:15 09/11/23 11:51 09/11/23 07:15 09/11/23 11:51 09/11/23 07:15
I&O
09/10/23 09/11/23 09/12/23
06:59 06:59 06:59
Intake Total 400 / 400 1500 / 1500
Output Total 0 / 0
Balance 400 / 400 1500 / 1500
[2023-09-11 12:29] LABS: Glucose - Point of Care 70 mg/dl (70-99)
[2023-09-11 14:44] LABS: Glucose - Point of Care 130 mg/dl (70-99)
[2023-09-11 15:43] VITALS: BP 147/64
[2023-09-11] MEDS: B COMPLEX w/VITAMIN C 1 CAPLET PO (17:10)
[2023-09-11 17:14] LABS: Glucose - Point of Care 159 mg/dl (70-99)
[2023-09-11] MEDS: LIPITOR 80 MG PO (21:30)
[2023-09-11] MEDS: NEURONTIN 100 MG PO (21:31)
[2023-09-11 21:40] LABS: Glucose - Point of Care 130 mg/dl (70-99)
[2023-09-11] MEDS: LANTUS SC (22:41)
[2023-09-11] MEDS: LANTUS 0.0200000000000000004 UNITS SC (22:45)
--- NOTE | 2023-09-11 23:00 | PTCARENOTE ---
Patient requested HS Lantus 6 units to be decreased to Lantus 2 units tonight d/t issues with hypoglycemia in am; House BURR PICKER notified; orders obtained; see MAR. Will re-check BS @ 0300 per protocol.
[2023-09-11 23:05] VITALS: BP 136/61
--- NOTE | 2023-09-12 01:56 | W.PN.UPDATE ---
Update Note
Progress Note Update
per nursing, patient requesting for HS Lantus dose to be decreased to 2U. Patient having hypoglycemia episodes in the AM past two mornings with 6U HS Lantus. Patient's blood sugar 09/11/23: 53>57>159>130. Rx decreased Lantus to 2U tonight.
[2023-09-12 02:45] LABS: Glucose - Point of Care 133 mg/dl (70-99)
[2023-09-12 05:30] VITALS: BMI 27.2
[2023-09-12 06:44] LABS: INR 3.37; PT 34.1 Sec (11.4-14.6)
[2023-09-12 07:10] VITALS: BP 169/71
[2023-09-12 07:31] LABS: Glucose - Point of Care 92 mg/dl (70-99)
[2023-09-12] MEDS: RENVELA 1600 MG PO ×3 (08:35→16:53)
[2023-09-12] MEDS: TYLENOL 1000 MG PO ×3 (08:35→21:47)
[2023-09-12] MEDS: APRESOLINE 100 MG PO ×3 (08:35→21:48)
[2023-09-12] MEDS: ZOLOFT 100 MG PO (08:35)
[2023-09-12] MEDS: VISBIOME 1 CAP PO (08:36)
[2023-09-12] MEDS: COZAAR 100 MG PO (08:36)
[2023-09-12] MEDS: PROTONIX 40 MG PO ×2 (08:36→21:48)
[2023-09-12] MEDS: CATAPRES 0.100000000000000006 MG PO ×3 (08:36→21:48)
[2023-09-12] MEDS: NOVOLOG FLEXPEN-LOW RESISTANCE SC (08:37)
[2023-09-12] MEDS: PROCARDIA XL (EXTENDED RELEASE) 60 MG PO ×2 (08:37→21:55)
[2023-09-12] MEDS: BUMEX 4 MG PO (08:37)
--- NOTE | 2023-09-12 10:06 | W.PN.HOSP.TC ---
Today's Communication/Plan
-
Hold Coumadin
Will need dose readjustment on discharge
Possible provide in the morning
Disposition planning
Assessment / Plan
Assessment / Plan
General: Well Developed, Well Nourished and No Apparent Distress
HEENT: NormoCephalic, Moist mucous membranes and Atraumatic
Respiratory: Clear
Cardiac: S1/S2 and Regular Rhythm; No Murmur or Rub
GI: Soft, Non Tender, Non Distended and Normal Bowel Sounds; No Organomegaly
Rectal: Deferred by Provider
Musculoskeletal: No Clubbing, No Cyanosis and No Edema, LUE AVF
Skin: No Rash
Neuro: Nonfocal/grossly intact
# Weakness/ambulatory dysfunction secondary to deconditioning in the setting of chronic medical conditions and recent hospitalizations
-PT/OT
-Agreeable for SNF placement
Recent chest wall hematoma in the setting of Coumadin use
ESRD on hemodialysis M, W, F
Volume Overload with interstitial pulmonary edema secondary to ESRD
-Continue sevelamer
-Hd per schedule. May need additional volume removal.
-Nephrology consulted
Anemia of chronic kidney disease
-Hemoglobin stable at 8.7 to 8.4
Chronic HFpEF
-continue bumex
History of bilateral pleural effusions status post thoracentesis
-Chest x-ray shows likely small bilateral pleural effusions loculated on the right probably slightly greater on the right compared to left,
- ultrasound chest R pleural effusion. INR supratherapeutic. Discussed with IRAD goal INR less than 3 for thoracentesis. Hopefully next 24 hours to trend down.
History of pericardial effusion status post pericardiocentesis
Coronary artery disease
-Continue statin
Paroxysmal atrial fibrillation
Chronic coagulopathy with Coumadin
Supratherapeutic INR
-Hold Coumadin
-INR elevated at 4.96
-Daily INR
Essential hypertension
HTN urgency
-Continue clonidine, hydralazine, losartan, nifedipine
-Volume removal should help,
-Can consider increasing clonidine dose if blood pressure remains persistently elevated.
Type 2 diabetes
-Insulin sliding scale
-Continue Tresiba 2 units as patient with hypoglycemia intermittently.
Hyperlipidemia
-Continue Vascepa
Spinal stenosis
-Continue gabapentin, Percocet
Migraine history
History of C. difficile
History of esophagitis/gastritis
-Continue Protonix
Constipation
Anxiety/depression
-Continue sertraline
Former smoker
Former alcohol use
Full code
DVT prophylaxis�supratherapeutic INR
PT/OT-Home VN vs. SNF. CM aware.
Anticipated Discharge: Within 24 hours
Subjective/Interval History
-
Date of Service: September 12, 2023
States of mild shortness of breath otherwise denies any chest pain
Remains on room air
Objective Data
-
Labs:
Laboratory Results
09/12/23
05:17
PT 34.1 H
INR 3.37
Vital Signs:
Vital Signs
Temp Pulse Resp BP Pulse Ox
98.3 F 83 14 169/71 98
09/12/23 07:10 09/12/23 08:35 09/12/23 07:10 09/12/23 08:35 09/12/23 07:10
I&O
09/11/23 09/12/23 09/13/23
06:59 06:59 06:59
Intake Total 1500 / 1500 1260 / 1260
Balance 1500 / 1500 1260 / 1260
--- NOTE | 2023-09-12 10:54 | W.PN.NEPH.PH ---
Today's Communication / Plan
-
await rehab
Assessment/Plan
-
IMP:
Weakness and falls
Anemia
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
Chronic HFpEF
History of bilateral pleural effusions status post thoracentesis
History of pericardial effusion status post pericardiocentesis
Coronary artery disease
Paroxysmal atrial fibrillation
Essential hypertension
DM with multiple microvascular complications
Hyperlipidemia
Spinal stenosis
Migraine history
History of C. difficile
Anxiety/depression
L radial AVF
Severe lumbar spinal stenosis at multiple levels
Chronic low back pain with ambulatory dysfunction
Plan:
HD while in hospital on , next HD thursday
awaiting placement for rehab
back on all home BP meds
-
-
Date of Service: September 12, 2023
CC / HPI / ROS
-
Chief Complaint:
ESRD
History of Present Illness:
tolerated HD yesterday
BP stable
Hgb stable 8.5
Review of Systems:
no CP/SOB
Labs
-
Labs:
WBC 8.0 10^3/uL (4.8-10.8) 09/10/23 05:33
RBC 3.25 10^6/uL (4.70-6.10) L 09/10/23 05:33
Hgb 8.5 g/dL (13.0-18.0) L 09/11/23 08:58
Hct 27.1 % (39.0-52.0) L 09/11/23 08:58
Plt Count 220 10^3/uL (130-400) 09/10/23 05:33
Sodium 133 mmol/L (135-145) L 09/11/23 08:58
Potassium 4.6 mmol/L (3.5-5.1) 09/11/23 08:58
Chloride 94 mmol/L (98-107) L 09/11/23 08:58
Carbon Dioxide 28 mmol/L (22-30) 09/11/23 08:58
BUN 32 mg/dl (9-20) H 09/10/23 15:28
Creatinine 3.7 mg/dL (0.7-1.3) H 09/10/23 15:28
eGFR 18.04 09/10/23 15:28
Glucose 115 mg/dl (70-99) H 09/10/23 15:28
Calcium 8.4 mg/dl (8.4-10.2) 09/10/23 15:28
Albumin 3.1 g/dl (3.5-5.0) L 09/10/23 05:33
Physical Exam
-
Vital Signs:
Vital Signs
Temp Pulse Resp BP Pulse Ox
98.3 F 83 14 169/71 98
09/12/23 07:10 09/12/23 08:35 09/12/23 07:10 09/12/23 08:35 09/12/23 07:10
Cardiovascular:: Regular rate and rhythm
Respiratory:: Bilateral: CTA
Lung Excursion:: Normal
Abdomen:: Nontender and Soft
Bowel Sounds:: Normal
Extremity Edema:: None: Bilateral:
[2023-09-12 11:50] LABS: Glucose - Point of Care 194 mg/dl (70-99)
[2023-09-12] MEDS: PERCOCET 5/325 1 TABLET PO (12:34)
[2023-09-12] MEDS: NOVOLOG FLEXPEN-LOW RESISTANCE 1 UNITS SC (12:35)
[2023-09-12 15:20] VITALS: BP 166/65
[2023-09-12 16:50] LABS: Glucose - Point of Care 216 mg/dl (70-99)
[2023-09-12] MEDS: NOVOLOG FLEXPEN-LOW RESISTANCE 2 UNITS SC (16:50)
[2023-09-12] MEDS: B COMPLEX w/VITAMIN C 1 CAPLET PO (16:53)
[2023-09-12 21:37] LABS: Glucose - Point of Care 154 mg/dl (70-99)
[2023-09-12] MEDS: LIPITOR 80 MG PO (21:48)
[2023-09-12] MEDS: NEURONTIN 100 MG PO (21:48)
[2023-09-12] MEDS: LANTUS 0.0200000000000000004 UNITS SC (21:51)
[2023-09-12 23:55] VITALS: BP 109/50
[2023-09-13 05:33] VITALS: BMI 27.7
[2023-09-13 06:28] LABS: INR 2.83; PT 29.7 Sec (11.4-14.6)
[2023-09-13 07:25] VITALS: BP 172/82
[2023-09-13 07:41] LABS: Glucose - Point of Care 95 mg/dl (70-99)
[2023-09-13] MEDS: NOVOLOG FLEXPEN-LOW RESISTANCE SC ×2 (08:30→17:11)
[2023-09-13] MEDS: PROTONIX 40 MG PO ×2 (08:41→21:33)
[2023-09-13] MEDS: CATAPRES 0.100000000000000006 MG PO ×3 (08:41→21:34)
[2023-09-13] MEDS: RENVELA 1600 MG PO ×3 (08:41→17:40)
[2023-09-13] MEDS: PROCARDIA XL (EXTENDED RELEASE) 60 MG PO ×2 (08:41→21:32)
[2023-09-13] MEDS: APRESOLINE 100 MG PO ×3 (08:41→21:33)
[2023-09-13] MEDS: COZAAR 100 MG PO (08:41)
[2023-09-13] MEDS: VISBIOME 1 CAP PO (08:42)
[2023-09-13] MEDS: ZOLOFT 100 MG PO (08:42)
[2023-09-13] MEDS: TYLENOL 1000 MG PO ×3 (08:42→21:34)
[2023-09-13] MEDS: BUMEX 4 MG PO (08:45)
[2023-09-13 09:03] VITALS: BP 172/82
--- NOTE | 2023-09-13 10:18 | W.PN.HOSP.TC ---
Today's Communication/Plan
-
IRAD for thora
restart coumadin
HD per nephro
Assessment / Plan
Assessment / Plan
General: Well Developed, Well Nourished and No Apparent Distress
HEENT: NormoCephalic, Moist mucous membranes and Atraumatic
Respiratory: Clear
Cardiac: S1/S2 and Regular Rhythm; No Murmur or Rub
GI: Soft, Non Tender, Non Distended and Normal Bowel Sounds; No Organomegaly
Rectal: Deferred by Provider
Musculoskeletal: No Clubbing, No Cyanosis and No Edema, LUE AVF
Skin: No Rash
Neuro: Nonfocal/grossly intact
# Weakness/ambulatory dysfunction secondary to deconditioning in the setting of chronic medical conditions and recent hospitalizations
-PT/OT
-Agreeable for SNF placement
Recent chest wall hematoma in the setting of Coumadin use
ESRD on hemodialysis M, W, F
Volume Overload with interstitial pulmonary edema secondary to ESRD
-Continue sevelamer
-Hd per schedule. May need additional volume removal.
-Nephrology consulted
Anemia of chronic kidney disease
-Hemoglobin stable at 8.7 to 8.4
Chronic HFpEF
-continue bumex
History of bilateral pleural effusions status post thoracentesis
-Chest x-ray shows likely small bilateral pleural effusions loculated on the right probably slightly greater on the right compared to left,
- ultrasound chest R pleural effusion. INR therapeutic now at 2.83. IRAD c/s for thoracentesis.
History of pericardial effusion status post pericardiocentesis
Coronary artery disease
-Continue statin
Paroxysmal atrial fibrillation
Chronic coagulopathy with Coumadin
Supratherapeutic INR -resolved
-restart Coumadin at 3mg daily
-INR elevated at 2.8
-Daily INR
Essential hypertension
HTN urgency
-Continue clonidine, hydralazine, losartan, nifedipine
-Volume removal should help,
-Can consider increasing clonidine dose if blood pressure remains persistently elevated.
Type 2 diabetes
-Insulin sliding scale
-Continue Tresiba 2 units as patient with hypoglycemia intermittently.
-POC 95 am
Hyperlipidemia
-Continue Vascepa
Spinal stenosis
-Continue gabapentin, Percocet
Migraine history
History of C. difficile
History of esophagitis/gastritis
-Continue Protonix
Constipation
Anxiety/depression
-Continue sertraline
Former smoker
Former alcohol use
Full code
DVT prophylaxis�supratherapeutic INR
PT/OT-SNF. Per , pt cannot go till thursday. Hep b panel ordered as requested for HD per /accepting facility.
Anticipated Discharge: > 48 hours
Subjective/Interval History
-
Date of Service: September 13, 2023
Denies cp or sob
Objective Data
-
Labs:
Laboratory Results
09/13/23
06:08
PT 29.7 H
INR 2.83
Vital Signs:
Vital Signs
Temp Pulse Resp BP Pulse Ox
98.7 F 90 14 172/82 98
09/13/23 07:25 09/13/23 08:45 09/13/23 07:25 09/13/23 08:45 09/13/23 07:25
I&O
09/12/23 09/13/23 09/14/23
06:59 06:59 06:59
Intake Total 1260 / 1260 1380 / 1380
Balance 1260 / 1260 1380 / 1380
Data Reviewed
-
Total Time Spent with Patient (in minutes): 55
[2023-09-13 11:19] LABS: Glucose - Point of Care 157 mg/dl (70-99)
--- NOTE | 2023-09-13 11:26 | W.PN.NEPH.PH ---
Today's Communication / Plan
-
HD tomorrow
Assessment/Plan
-
IMP:
Weakness and falls
Anemia
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
Chronic HFpEF
History of bilateral pleural effusions status post thoracentesis
History of pericardial effusion status post pericardiocentesis
Coronary artery disease
Paroxysmal atrial fibrillation
Essential hypertension
DM with multiple microvascular complications
Hyperlipidemia
Spinal stenosis
Migraine history
History of C. difficile
Anxiety/depression
L radial AVF
Severe lumbar spinal stenosis at multiple levels
Chronic low back pain with ambulatory dysfunction
Plan:
HD while in hospital on MWF, next HD tomorrow
awaiting placement for rehab
back on all home BP meds
-
-
Date of Service: September 13, 2023
CC / HPI / ROS
-
Chief Complaint:
ESRD
History of Present Illness:
tolerated HD thursday
BP stable
Hgb stable
Review of Systems:
no CP/SOB
Labs
-
Labs:
WBC 8.0 10^3/uL (4.8-10.8) 09/10/23 05:33
RBC 3.25 10^6/uL (4.70-6.10) L 09/10/23 05:33
Hgb 8.5 g/dL (13.0-18.0) L 09/11/23 08:58
Hct 27.1 % (39.0-52.0) L 09/11/23 08:58
Plt Count 220 10^3/uL (130-400) 09/10/23 05:33
Sodium 133 mmol/L (135-145) L 09/11/23 08:58
Potassium 4.6 mmol/L (3.5-5.1) 09/11/23 08:58
Chloride 94 mmol/L (98-107) L 09/11/23 08:58
Carbon Dioxide 28 mmol/L (22-30) 09/11/23 08:58
BUN 32 mg/dl (9-20) H 09/10/23 15:28
Creatinine 3.7 mg/dL (0.7-1.3) H 09/10/23 15:28
eGFR 18.04 09/10/23 15:28
Glucose 115 mg/dl (70-99) H 09/10/23 15:28
Calcium 8.4 mg/dl (8.4-10.2) 09/10/23 15:28
Albumin 3.1 g/dl (3.5-5.0) L 09/10/23 05:33
Physical Exam
-
Vital Signs:
Vital Signs
Temp Pulse Resp BP Pulse Ox
98.7 F 90 14 172/82 98
09/13/23 07:25 09/13/23 08:45 09/13/23 07:25 09/13/23 08:45 09/13/23 07:25
Cardiovascular:: Regular rate and rhythm
Respiratory:: Bilateral: Coarse
Lung Excursion:: Normal
Abdomen:: Nontender and Soft
Bowel Sounds:: Normal
Extremity Edema:: +3: Bilateral:
--- NOTE | 2023-09-13 12:01 | W.PN.UPDATE ---
Update Note
Progress Note Update
- Imaging reviewed. Small bilateral effusions. Pt O2 sat is 98 percent on room air. No urgent indication for thoracentesis. We can attempt on Thursday or patient can arrange for outpatient follow up at a later date.
[2023-09-13] MEDS: NOVOLOG FLEXPEN-LOW RESISTANCE 1 UNITS SC (12:39)
[2023-09-13] MEDS: MYLICON 80 MG PO (12:39)
[2023-09-13 15:40] VITALS: BP 149/64
[2023-09-13 16:59] LABS: Glucose - Point of Care 142 mg/dl (70-99)
[2023-09-13] MEDS: COUMADIN 3 MG PO (17:45)
[2023-09-13] MEDS: B COMPLEX w/VITAMIN C 1 CAPLET PO (17:45)
[2023-09-13 21:29] LABS: Glucose - Point of Care 219 mg/dl (70-99)
[2023-09-13] MEDS: NEURONTIN 100 MG PO (21:33)
[2023-09-13] MEDS: LIPITOR 80 MG PO (21:34)
[2023-09-13] MEDS: LANTUS 0.0200000000000000004 UNITS SC (22:50)
[2023-09-13 23:06] VITALS: BP 184/84
[2023-09-14 06:00] VITALS: BMI 28.0
[2023-09-14 07:00] LABS: Glucose - Point of Care 90 mg/dl (70-99)
[2023-09-14] MEDS: EMLA CREAM TOPICAL (07:15)
[2023-09-14 07:20] VITALS: BP 160/66
[2023-09-14] MEDS: NOVOLOG FLEXPEN-LOW RESISTANCE SC ×2 (08:30→12:26)
[2023-09-14 08:32] LABS: Hematocrit 26.8 % (39.0-52.0); Hemoglobin 8.2 g/dL (13.0-18.0)
[2023-09-14 08:43] LABS: INR 2.68; PT 28.4 Sec (11.4-14.6)
--- NOTE | 2023-09-14 08:48 | CM ---
Addendum entered by Eunice De Luna 09/14/23 09:59:
please fax hep b panel results to naveed at [phone].her cell number is [phone].
Original Note:
patient for hd thursday,hgb stable,sat 98% on ra,now with small bl pleural effusions.not c/o cp or sob.
patient has been accepted at [facility].i have spoken to pablo and she needs hep b surface antigen and antibody and hep b core antigen and antibody faxed to her at [phone] as well as clinicals. faxed clinicals but hep b
panel still pending.please fax hep b serology results to pablo when they become available so she can give to dialysis .Plan:dc to [facility] when stable and facility has hep b panel results.clinicals have been faxed.
[2023-09-14] MEDS: RETACRIT 8000 UNITS IV (08:53)
[2023-09-14 08:56] LABS: Carbon Dioxide 27 mmol/L (22-30); Chloride 94 mmol/L (98-107); Potassium 5.5 mmol/L (3.5-5.1); Sodium 132 mmol/L (135-145)
[2023-09-14] MEDS: CATAPRES 0.100000000000000006 MG PO (09:21)
[2023-09-14] MEDS: ZOLOFT 100 MG PO (09:22)
[2023-09-14] MEDS: RENVELA 1600 MG PO ×3 (09:22→17:30)
[2023-09-14] MEDS: PROTONIX 40 MG PO ×2 (09:22→20:16)
[2023-09-14] MEDS: TYLENOL 1000 MG PO ×3 (09:22→22:14)
[2023-09-14] MEDS: VISBIOME 1 CAP PO (09:22)
--- NOTE | 2023-09-14 09:34 | W.PN.HOSP.TC ---
Today's Communication/Plan
-
HD today
Thora tomm or as op-stable on RA
CM for SNF
cont coumadin
monitor BP
Assessment / Plan
Assessment / Plan
General: Well Developed, Well Nourished and No Apparent Distress
HEENT: NormoCephalic, Moist mucous membranes and Atraumatic
Respiratory: Clear
Cardiac: S1/S2 and Regular Rhythm; No Murmur or Rub
GI: Soft, Non Tender, Non Distended and Normal Bowel Sounds; No Organomegaly
Rectal: Deferred by Provider
Musculoskeletal: No Clubbing, No Cyanosis and No Edema, LUE AVF
Skin: No Rash
Neuro: Nonfocal/grossly intact
# Weakness/ambulatory dysfunction secondary to deconditioning in the setting of chronic medical conditions and recent hospitalizations
-PT/OT
-Agreeable for SNF placement
Recent chest wall hematoma in the setting of Coumadin use
ESRD on hemodialysis M, W, F
Volume Overload with interstitial pulmonary edema secondary to ESRD
-Continue sevelamer
-Hd per schedule. May need additional volume removal.
-Nephrology consulted
Anemia of chronic kidney disease
-Hemoglobin stable at 8.7 to 8.2
Chronic HFpEF
-continue bumex
History of bilateral pleural effusions status post thoracentesis
-Chest x-ray shows likely small bilateral pleural effusions loculated on the right probably slightly greater on the right compared to left,
- ultrasound chest R pleural effusion. INR therapeutic now at 2.68. IRAD c/s for thoracentesis.
History of pericardial effusion status post pericardiocentesis
Coronary artery disease
-Continue statin
Paroxysmal atrial fibrillation
Chronic coagulopathy with Coumadin
Supratherapeutic INR -resolved
-restart Coumadin at 3mg daily
-INR elevated at 2.68
-Daily INR
Essential hypertension
HTN urgency
-Continue clonidine, hydralazine, losartan, nifedipine
-Volume removal should help,
-Can consider increasing clonidine dose if blood pressure remains persistently elevated.
Type 2 diabetes
-Insulin sliding scale
-Continue Tresiba 2 units as patient with hypoglycemia intermittently.
-POC 90 am
Hyperlipidemia
-Continue Vascepa
Spinal stenosis
-Continue gabapentin, Percocet
Migraine history
History of C. difficile
History of esophagitis/gastritis
-Continue Protonix
Constipation
Anxiety/depression
-Continue sertraline
Former smoker
Former alcohol use
Full code
DVT prophylaxis�supratherapeutic INR
PT/OT-SNF. Per , pt cannot go till thursday. Hep b panel ordered as requested for HD per /accepting facility.
Anticipated Discharge: Within 24 hours
Subjective/Interval History
-
Date of Service: September 14, 2023
seen on HD
Denies cp or sob
Objective Data
-
Labs:
Laboratory Results
09/14/23
07:59
Hgb 8.2 L
Hct 26.8 L
PT 28.4 H
INR 2.68
Sodium 132 L
Potassium 5.5 H
Chloride 94 L
Carbon Dioxide 27
Vital Signs:
Vital Signs
Temp Pulse Resp BP Pulse Ox
98.7 F 79 18 160/66 98
09/14/23 07:20 09/14/23 09:21 09/14/23 07:20 09/14/23 09:21 09/14/23 07:20
I&O
09/13/23 09/14/23 09/15/23
06:59 06:59 06:59
Intake Total 1380 / 1380 1440 / 1440
Balance 1380 / 1380 1440 / 1440
Data Reviewed
-
Total Time Spent with Patient (in minutes): 55
[2023-09-14] MEDS: APRESOLINE 100 MG PO ×3 (10:29→22:15)
--- NOTE | 2023-09-14 11:13 | W.PN.NEPH.HD ---
Assessment
-
Seen on HD. no complaints. VSS access ok
awaiting final placement
Progress Note - Hemodialysis
-
Date of Service: September 14, 2023
Duration: 30 minutes and 3 hours
Potassium Bath: 3
Calcium Bath: 2.5
Opti-Dialyzer: 160
Ultrafiltration: Other (2.5kg)
Blood Flow: 400
Dialysate Flow: 600
Heparin: no
EPO: 8000 units
[2023-09-14] MEDS: PROCARDIA XL (EXTENDED RELEASE) 60 MG PO ×2 (12:01→20:16)
[2023-09-14] MEDS: COZAAR 100 MG PO (12:04)
[2023-09-14] MEDS: ROXICODONE 5 MG PO (12:23)
[2023-09-14 12:27] LABS: Glucose - Point of Care 93 mg/dl (70-99)
[2023-09-14 13:49] VITALS: BP 139/55; PULSE 85
[2023-09-14 15:10] VITALS: BP 130/50
[2023-09-14 17:19] LABS: Glucose - Point of Care 177 mg/dl (70-99)
[2023-09-14] MEDS: CATAPRES 0.200000000000000011 MG PO ×2 (17:29→22:15)
[2023-09-14] MEDS: NOVOLOG FLEXPEN-LOW RESISTANCE 1 UNITS SC (17:30)
[2023-09-14] MEDS: B COMPLEX w/VITAMIN C 1 CAPLET PO (17:30)
[2023-09-14] MEDS: COUMADIN 3 MG PO (17:30)
[2023-09-14 22:01] LABS: Glucose - Point of Care 218 mg/dl (70-99)
[2023-09-14] MEDS: LIPITOR 80 MG PO (22:14)
[2023-09-14] MEDS: NEURONTIN 100 MG PO (22:15)
[2023-09-14] MEDS: LANTUS 0.0200000000000000004 UNITS SC (22:21)
[2023-09-14 23:27] VITALS: BP 136/55
[2023-09-15 03:32] LABS: Hepatitis B Surface Antigen Negative (Negative)
[2023-09-15 03:50] LABS: Hepatitis B Core Ab, Total Negative (Negative)
[2023-09-15 04:45] LABS: Hepatitis B Surface Antibody Positive
[2023-09-15 05:48] VITALS: BMI 27.3
[2023-09-15 06:00] VITALS: BMI 27.3
[2023-09-15 07:27] LABS: INR 2.46; PT 26.5 Sec (11.4-14.6)
[2023-09-15 07:55] LABS: Glucose - Point of Care 109 mg/dl (70-99)
[2023-09-15 08:00] VITALS: BP 172/81
[2023-09-15 09:29] LABS: Blood Urea Nitrogen 42 mg/dl (9-20); Calcium 8.5 mg/dl (8.4-10.2); Carbon Dioxide 29 mmol/L (22-30); Chloride 95 mmol/L (98-107); Estimated Creatinine Clearance 20 ml/min; Glucose 100 mg/dl (70-99); Potassium 4.8 mmol/L (3.5-5.1); Sodium 134 mmol/L (135-145); eGFR 15.06
[2023-09-15] MEDS: NOVOLOG FLEXPEN-LOW RESISTANCE SC (09:46)
[2023-09-15] MEDS: APRESOLINE 100 MG PO ×3 (09:49→23:43)
[2023-09-15] MEDS: TYLENOL 1000 MG PO ×3 (09:49→22:26)
[2023-09-15] MEDS: ZOLOFT 100 MG PO (09:49)
[2023-09-15] MEDS: PROTONIX 40 MG PO ×2 (09:50→20:50)
[2023-09-15] MEDS: RENVELA 1600 MG PO ×3 (09:50→17:41)
[2023-09-15] MEDS: CATAPRES 0.200000000000000011 MG PO ×3 (09:50→23:43)
[2023-09-15] MEDS: VISBIOME 1 CAP PO (09:50)
[2023-09-15] MEDS: PROCARDIA XL (EXTENDED RELEASE) 60 MG PO ×2 (09:51→20:50)
[2023-09-15] MEDS: COZAAR 100 MG PO (09:51)
[2023-09-15] MEDS: BUMEX 4 MG PO (09:54)
--- NOTE | 2023-09-15 11:12 | W.PN.HOSP.TC ---
Today's Communication/Plan
-
Thoracentesis right
Control BP better
Aldactone added
Possible discharge tomorrow
Assessment / Plan
Assessment / Plan
CVS: S1-S2 normal
Chest: CTA B/L
Abdomen: Soft, NT / Bowel sounds present
Extremities: No edema, normal pulses
Able to move extremities, prefers to leave undisturbed.
# Weakness/ambulatory dysfunction secondary to deconditioning in the setting of chronic medical conditions and recent hospitalizations
-PT/OT
-Agreeable for SNF placement
#Recent chest wall hematoma in the setting of Coumadin use
#ESRD on hemodialysis M, W, [facility]
Volume Overload with interstitial pulmonary edema secondary to ESRD
-Continue sevelamer
-Hd per schedule. May need additional volume removal.
-Nephrology following
#Anemia of chronic kidney disease
-Hemoglobin stable at 8.7 to 8.2
#Chronic HFpEF
-Continue Bumex and Volume removal at HD
#Recurrent transudative bilateral pleural effusions: multifactorial (CKD, hypoalbuminemia, Heart Failure)
Ultrasound chest R pleural effusion. INR therapeutic now at 2.68. IRAD c/s for thoracentesis.
R thoracentesis - 1L, cytology negative
L thoracentesis 12/31/22- 1400mL
L thoracentesis -2.05L, straw color, transudative
R thoracentesis - 1.6L, straw color, transudative
L tap at [facility]- 1L (Unclear details)
Needs OP Pulm eval.
#History of pericardial effusion status post pericardiocentesis at [facility]
#CAD s/p 2 stents in 2015
-Continue statin
#Paroxysmal atrial fibrillation-Coumadin- Not on rate controlling agents as OP
#Essential odqstjiqrswu-zotfjxjli-nlzzobrxc
HTN urgency
-Continue clonidine, hydralazine, losartan, nifedipine
-Volume removal should help,
-Aldactone added today
#Type 2 diabetes
-Insulin sliding scale
-Continue Tresiba 2 units as patient with hypoglycemia intermittently.
-If sugars lower then we can stop Long acting and just do SSI
#Hyperlipidemia
-Continue Vascepa
#Spinal stenosis with surgeries
-Opiate dependent for pain control
-Continue gabapentin, Percocet
#Migraine history
#History of C. difficile
#History of esophagitis/gastritis
-Continue Protonix
#Constipation
#Anxiety/Depression
-Continue sertraline
#Peripheral artery disease with femoropopliteal bypass
#Former smoker
#Pulm HTN
#Migraines on Aimovig monthly
#Former alcohol use
#Full code
#DVT prophylaxis�Therapeutic INR
D/W RN
Left a message for sister
Spoke to IRAD re thoracentesis
D/W Renal
Medically very complicated
Previous records reviewed
Time spent over 50 min
Anticipated Discharge: Within 24 hours
Subjective/Interval History
-
Date of Service: September 15, 2023
Objective Data
-
Labs:
Laboratory Results
09/15/23 09/15/23
06:32 08:22
PT 26.5 H
INR 2.46
Sodium 134 L
Potassium 4.8
Chloride 95 L
Carbon Dioxide 29
BUN 42 H
Creatinine 4.3 H*
Glucose 100 H
Calcium 8.5
Vital Signs:
Vital Signs
Temp Pulse Resp BP Pulse Ox
98.4 F 70 14 172/81 98
09/15/23 08:00 09/15/23 09:54 09/15/23 08:00 09/15/23 09:54 09/15/23 08:00
I&O
09/14/23 09/15/23 09/16/23
06:59 06:59 06:59
Intake Total 1440 / 1440 1800 / 1800
Balance 1440 / 1440 1800 / 1800
[2023-09-15 11:39] LABS: Glucose - Point of Care 167 mg/dl (70-99)
[2023-09-15 12:26] LABS: Iron 48 ug/dl (49-181)
[2023-09-15 12:38] LABS: Percent Saturation 30 % (20-50); Total Iron Binding Capacity 157 ug/dl (261-462)
[2023-09-15 12:41] LABS: Cortisol, Random 17.8 ug/dl; TSH 3.53 uIU/ml (0.47-4.68)
[2023-09-15 12:45] VITALS: BP 181/80; BP_SYST 68
--- NOTE | 2023-09-15 12:56 | CM ---
MD anticipates discharge on 09/16/23. Discharge Plan of Care: [facility] with HD services. This CM notified liaison. They are still in need of Hep B panel. Panel faxed at this time to [phone]. Ernesto needs to give
final approval prior to discharge.
[2023-09-15 13:14] LABS: Vitamin B12 713 pg/ml (239-931)
[2023-09-15 13:30] LABS: Body Fluid pH 7.38
[2023-09-15 13:37] LABS: Body Fluid Mononuclear 95.5 %; Body Fluid Polymorphonuclear 4.5 %; Body Fluid WBC 45 /CUMM
[2023-09-15 13:40] LABS: Body Fluid Second Tech EM
[2023-09-15 13:44] LABS: Body Fluid Glucose 115 mg/dl; Body Fluid LDH 103 U/L; Body Fluid Protein 2.8 g/dl
--- NOTE | 2023-09-15 14:00 | W.PN.NEPH.PH ---
Today's Communication / Plan
-
- add spironolactone
Assessment/Plan
-
IMP:
Weakness and falls
Anemia
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
Chronic HFpEF
History of bilateral pleural effusions status post thoracentesis
History of pericardial effusion status post pericardiocentesis
Coronary artery disease
Paroxysmal atrial fibrillation
Essential hypertension
DM with multiple microvascular complications
Hyperlipidemia
Spinal stenosis
Migraine history
History of C. difficile
Anxiety/depression
L radial AVF
Severe lumbar spinal stenosis at multiple levels
Chronic low back pain with ambulatory dysfunction
Plan:
HD while in hospital on MWF, next HD tomorrow
awaiting placement for rehab
back on all home BP meds
Added on spironolactone today because continues to have hypertension
-
-
Date of Service: September 15, 2023
CC / HPI / ROS
-
Chief Complaint:
ESRD
History of Present Illness:
HD MWF
Hgb stable
Review of Systems:
no CP/SOB
Labs
-
Labs:
WBC 8.0 10^3/uL (4.8-10.8) 09/10/23 05:33
RBC 3.25 10^6/uL (4.70-6.10) L 09/10/23 05:33
Hgb 8.2 g/dL (13.0-18.0) L 09/14/23 07:59
Hct 26.8 % (39.0-52.0) L 09/14/23 07:59
Plt Count 220 10^3/uL (130-400) 09/10/23 05:33
Sodium 134 mmol/L (135-145) L 09/15/23 08:22
Potassium 4.8 mmol/L (3.5-5.1) 09/15/23 08:22
Chloride 95 mmol/L (98-107) L 09/15/23 08:22
Carbon Dioxide 29 mmol/L (22-30) 09/15/23 08:22
BUN 42 mg/dl (9-20) H 09/15/23 08:22
Creatinine 4.3 mg/dL (0.7-1.3) H* 09/15/23 08:22
eGFR 15.06 09/15/23 08:22
Glucose 100 mg/dl (70-99) H 09/15/23 08:22
Calcium 8.5 mg/dl (8.4-10.2) 09/15/23 08:22
Albumin 3.1 g/dl (3.5-5.0) L 09/10/23 05:33
Physical Exam
-
Vital Signs:
Vital Signs
Temp Pulse Resp BP Pulse Ox
98.7 F 68 16 181/80 100
09/15/23 12:45 09/15/23 12:45 09/15/23 12:45 09/15/23 12:45 09/15/23 12:45
Cardiovascular:: Regular rate and rhythm
Respiratory:: Bilateral: CTA
Lung Excursion:: Normal
Abdomen:: Nontender and Soft
Bowel Sounds:: Normal
Extremity Edema:: None: Bilateral:
Alfred Catheter: No
[2023-09-15 14:02] VITALS: BP 169/72
[2023-09-15] MEDS: NOVOLOG FLEXPEN-LOW RESISTANCE 1 UNITS SC (14:17)
[2023-09-15] MEDS: ALDACTONE 25 MG PO (14:19)
[2023-09-15] MEDS: PERCOCET 5/325 1 TABLET PO (14:27)
[2023-09-15 16:00] VITALS: BP 116/55
[2023-09-15 17:39] LABS: Glucose - Point of Care 201 mg/dl (70-99)
[2023-09-15] MEDS: COUMADIN 3 MG PO (17:41)
[2023-09-15] MEDS: B COMPLEX w/VITAMIN C 1 CAPLET PO (17:41)
[2023-09-15] MEDS: NOVOLOG FLEXPEN-LOW RESISTANCE 2 UNITS SC (17:42)
[2023-09-15 19:50] VITALS: BP 128/55
[2023-09-15] MEDS: LIPITOR 80 MG PO (20:50)
[2023-09-15] MEDS: NEURONTIN 100 MG PO (20:50)
[2023-09-15 21:51] LABS: Glucose - Point of Care 278 mg/dl (70-99)
[2023-09-15] MEDS: LANTUS 0.0200000000000000004 UNITS SC (22:26)
[2023-09-15 23:15] VITALS: BP 172/77
[2023-09-16 05:41] VITALS: BMI 27.8
[2023-09-16] MEDS: EMLA CREAM 1 GRAM TOPICAL (06:07)
[2023-09-16] MEDS: NOVOLOG FLEXPEN-LOW RESISTANCE SC ×2 (07:18→13:08)
[2023-09-16] MEDS: RENVELA 1600 MG PO ×3 (07:19→17:50)
[2023-09-16] MEDS: ALDACTONE 25 MG PO (07:20)
[2023-09-16] MEDS: ZOLOFT 100 MG PO (07:20)
[2023-09-16] MEDS: COZAAR 100 MG PO (07:20)
[2023-09-16] MEDS: VISBIOME 1 CAP PO (07:20)
[2023-09-16] MEDS: PROTONIX 40 MG PO ×2 (07:20→22:59)
[2023-09-16] MEDS: PROCARDIA XL (EXTENDED RELEASE) 60 MG PO ×2 (07:21→23:00)
[2023-09-16] MEDS: APRESOLINE 100 MG PO ×2 (07:26→17:51)
[2023-09-16] MEDS: CATAPRES 0.200000000000000011 MG PO ×2 (07:26→17:50)
[2023-09-16 07:39] LABS: Glucose - Point of Care 128 mg/dl (70-99)
[2023-09-16 08:00] VITALS: BP 157/69
[2023-09-16] MEDS: TYLENOL 1000 MG PO ×2 (09:13→17:47)
[2023-09-16 09:29] LABS: Hematocrit 25.4 % (39.0-52.0); Hemoglobin 7.9 g/dL (13.0-18.0); Mean Corp Hgb Conc. 31.1 g/dL (33.0-37.0); Mean Corpuscular Hgb 25.6 pg (27.0-31.0); Mean Corpuscular Volume 82.5 fL (80.0-94.0); Mean Platelet Volume 9.6 fL (7.4-10.4); Platelet Count 219 10^3/uL (130-400); Red Blood Cell Count 3.08 10^6/uL (4.70-6.10); Red Cell Dist. Width 19.9 % (11.5-14.5); White Blood Cell Count 6.8 10^3/uL (4.8-10.8)
[2023-09-16 09:46] LABS: Blood Urea Nitrogen 58 mg/dl (9-20); Calcium 8.6 mg/dl (8.4-10.2); Carbon Dioxide 27 mmol/L (22-30); Chloride 95 mmol/L (98-107); Estimated Creatinine Clearance 15 ml/min; Glucose 165 mg/dl (70-99); Sodium 132 mmol/L (135-145); eGFR 10.97
[2023-09-16] MEDS: RETACRIT 10000 UNITS IV (10:17)
--- NOTE | 2023-09-16 11:09 | W.PN.NEPH.HD ---
Assessment
-
Seen on HD. no complaints. vss, access ok.
await final unit approval for d/c
Progress Note - Hemodialysis
-
Date of Service: September 16, 2023
Duration: 30 minutes and 3 hours
Potassium Bath: 3
Calcium Bath: 2.5
Opti-Dialyzer: 160
Ultrafiltration: Other (2.5kg)
Heparin: no
EPO: 76732 units
[2023-09-16 11:37] LABS: Glucose - Point of Care 112 mg/dl (70-99)
--- NOTE | 2023-09-16 12:54 | W.PN.HOSP.TC ---
Today's Communication/Plan
-
Possible discharge today
Pending CAT scan, chest x-ray, repeat hemoglobin
Patient and sister would like to go to rehab today.
Assessment / Plan
Assessment / Plan
Patient conversing more today.Has mild 3/10 abdominal discomfort for days
CVS: S1-S2 normal
Chest: CTA B/L
Abdomen: Soft, NT / Bowel sounds present
Extremities: No edema, normal pulses
Has mild 3/10 abdominal discomfort for days
# Weakness/ambulatory dysfunction secondary to deconditioning in the setting of chronic medical conditions and recent hospitalizations
-PT/OT
-Agreeable for SNF placement
#Recent chest wall hematoma in the setting of Coumadin use July 2023
#ESRD on hemodialysis M, [facility]
Volume Overload with interstitial pulmonary edema secondary to ESRD
-Continue sevelamer
-Hd per schedule. May need additional volume removal.
-Nephrology following
#Anemia of chronic kidney disease
-Hemoglobin stable at 8.7 to 8.2
-Rpt Hb after HD
#Chronic HFpEF
-Continue Bumex and Volume removal at HD
#Recurrent transudative bilateral pleural effusions: multifactorial (CKD, hypoalbuminemia, Heart Failure)
Right Thoracentesis 09/15/23 -yielding 500 cc of clear matias pleural fluid.Path pending.
R thoracentesis - 1L, cytology negative
L thoracentesis 12/31/22- 1400mL
L thoracentesis -2.05L, straw color, transudative
R thoracentesis - 1.6L, straw color, transudative
L tap at [facility]- 1L (Unclear details)
Needs OP Pulm eval.
Small pneumo- post Thoro -will repeat CXR
#Abdominal discomfort- with fall and also anemia- get a CT prior to discharge plan
#History of pericardial effusion status post pericardiocentesis at [facility]
#CAD s/p 2 stents in 2016
-Continue statin
#Paroxysmal atrial fibrillation-Coumadin- Not on rate controlling agents as OP
#Essential elrspfosvkfc-rkbhzmsrq-ttozdepux
HTN urgency
-Continue clonidine, hydralazine, losartan, nifedipine
-Volume removal should help
-Aldactone added
#Type 2 diabetes
-Insulin sliding scale
-Continue Tresiba 2 units as patient with hypoglycemia intermittently.
#Hyperlipidemia
-Continue Vascepa
#Spinal stenosis with surgeries
-Opiate dependent for pain control
-Continue gabapentin, Percocet
#Migraine history
#History of C. difficile
#History of esophagitis/gastritis
-Continue Protonix
#Constipation
#Anxiety/Depression
-Continue sertraline
#Peripheral artery disease with femoropopliteal bypass
#Former smoker
#Pulm HTN
#Migraines on Aimovig monthly
#Former alcohol use
#Full code
#DVT prophylaxis�Therapeutic INR
D/W RN
D/W Renal
Spoke to patient's sister who had concerns that [facility] visiting nurses/PT were not showing up. I have requested case management to look into this.
discussed with case management
Anticipated Discharge: Today
Subjective/Interval History
-
Date of Service: September 16, 2023
Objective Data
-
Labs:
Laboratory Results
09/16/23
07:57
WBC 6.8
Hgb 7.9 L
Hct 25.4 L
Plt Count 219
Sodium 132 L
Potassium 5.0
Chloride 95 L
Carbon Dioxide 27
BUN 58 H
Creatinine 5.6 H*
Glucose 165 H
Calcium 8.6
Vital Signs:
Vital Signs
Temp Pulse Resp BP Pulse Ox
98.4 F 63 16 157/69 98
09/16/23 08:00 09/16/23 08:00 09/16/23 08:00 09/16/23 08:00 09/16/23 08:00
I&O
09/15/23 09/16/23 09/17/23
06:59 06:59 06:59
Intake Total 1800 / 1800 240 / 240
Balance 1800 / 1800 240 / 240
[2023-09-16 13:11] LABS: Hematocrit 25.1 % (39.0-52.0); Hemoglobin 7.9 g/dL (13.0-18.0)
--- NOTE | 2023-09-16 14:20 | CM ---
CT scan abdomen and pelvis, CXR, H/H: Patient has been accepted to [facility] with HD services. Previous CXR reports forwarded. Awaiting above testing to be completed. Possible discharge today. Awaiting results of
diagnostics.
[2023-09-16 15:42] VITALS: BP 165/73
--- NOTE | 2023-09-16 16:19 | W.PN.UPDATE ---
Addendum entered and electronically signed by Taran Butt MD 09/16/23 16:31:
Unlikely lung infection as the Gram stain of the fluid was negative and cultures are pending but negative so far.
Original Note:
Update Note
Progress Note Update
Hemoglobin stable from this morning
Chest x-ray noted
CT scan of the abdomen and pelvis has multiple findings
Large amount of fecal material throughout the colon-enema ordered
Mild diffuse bladder wall thickening-check urinalysis
Pockets of air in the right pleural effusion-likely secondary to recent thoracentesis. I have reached out to Dr. Wolf to see if this could be the reason.
Mild bibasilar consolidation atelectasis versus pneumonia-
Chest wall hematoma improved
Probable hematoma send gluteal area left greater than right-patient had lowered himself to the floor likely baseline. However wait for blood cultures
Hold discharge today to address above
Sister made aware
[2023-09-16 17:21] LABS: Glucose - Point of Care 215 mg/dl (70-99)
[2023-09-16] MEDS: B COMPLEX w/VITAMIN C 1 CAPLET PO (17:50)
[2023-09-16] MEDS: COUMADIN 3 MG PO (17:50)
[2023-09-16] MEDS: NOVOLOG FLEXPEN-LOW RESISTANCE 2 UNITS SC (17:51)
[2023-09-16] MEDS: NEURONTIN 100 MG PO (22:59)
[2023-09-16] MEDS: TYLENOL PO (22:59)
[2023-09-16] MEDS: LIPITOR 80 MG PO (23:00)
[2023-09-16] MEDS: LANTUS 0.0200000000000000004 UNITS SC (23:05)
[2023-09-16 23:07] LABS: Glucose - Point of Care 143 mg/dl (70-99)
[2023-09-17] MEDS: APRESOLINE 100 MG PO ×4 (00:23→23:50)
[2023-09-17] MEDS: CATAPRES 0.200000000000000011 MG PO ×4 (00:24→23:50)
[2023-09-17 05:40] VITALS: BMI 27.1
--- NOTE | 2023-09-17 07:01 | PTCARENOTE ---
Milk and molasses enema administered as ordered at start of shift. Patient had huge BM post administration. Complete bed bath and linen change done.
[2023-09-17 07:20] VITALS: BP 149/69
[2023-09-17 07:39] LABS: Glucose - Point of Care 95 mg/dl (70-99)
--- NOTE | 2023-09-17 07:55 | W.PN.HOSP.TC ---
Today's Communication/Plan
-
GI consult. Discharge planning in progress.
Assessment / Plan
Assessment / Plan
Patient conversing more today.Has mild 3/10 abdominal discomfort for days
In general looks acute on chronically ill
CVS: Irregular rate and rhythm, S1-S2 normal
Chest: CTA B/L but decreased breath sounds at the bases
Abdomen: Soft, mild tenderness diffusely/ Bowel sounds present
Extremities: B/L edema present, normal pulses
Neuro: Alert oriented x 3 no focal neurological deficits, generalized weakness.
Chest x-ray:
1. Small bilateral pleural effusions.
2. Right basilar pneumothorax is not visualized on the current study, as the pleural space has filled in with fluid. Overall, findings are suggestive of trapped lung at the right lung base.
3. Moderate cardiomegaly.
CT of the abdomen:
Tiny left and small right pleural effusion. Both improved. Many tiny pockets of air throughout the right pleural effusion. New. Developing infection such as empyema should be considered.
Mild bibasilar consolidation suggesting atelectasis versus pneumonia. Stable
Moderate abdominopelvic ascites. New.
Findings suggesting moderate third spacing or volume overloaded. Progressed.
Probable large hematoma along left chest wall. Improved.. Incompletely imaged. Probable hematomas of the buttocks bilaterally, left greater than right.
Many tiny gallstones versus dense gallbladder sludge. New
Mild diffuse bladder wall thickening likely due to limited distention. Cystitis and bladder outlet obstruction not excluded. Stable
Mild bilateral renal atrophy. Stable
Small hiatal hernia. New.
Large amount of fecal material throughout the colon. Progressed.
Addendum:
Reportedly the patient had a thoracentesis on the right performed yesterday. This could account for the air throughout the right pleural effusion. The fluid was sent for cytology. Follow-up with these results is recommended as well.
A/P:
# Abdominal pain
-Unclear etiology, possible constipation related or ascites
-Seen and reviewed CT scan of the abdomen
-Will request GI consult for further evaluation and input
# Weakness/ambulatory dysfunction secondary to deconditioning in the setting of chronic medical conditions and recent hospitalizations
-PT/OT
-Agreeable for SNF placement
#Recent chest wall hematoma in the setting of Coumadin use July 2023
#ESRD on hemodialysis [facility]
Volume Overload with interstitial pulmonary edema secondary to ESRD
-Continue sevelamer
-Hd per schedule. May need additional volume removal.
-Nephrology following
#Anemia of chronic kidney disease
-Hemoglobin stable at 8.7 to 8.2-->today 8.5
-Rpt Hb after HD
#Chronic HFpEF
-Continue Bumex and Volume removal at HD
#Recurrent transudative bilateral pleural effusions: multifactorial (CKD, hypoalbuminemia, Heart Failure)
Right Thoracentesis 09/15/23 -yielding 500 cc of clear matias pleural fluid.Path pending.
R thoracentesis - 1L, cytology negative
L thoracentesis 12/31/22- 1400mL
L thoracentesis -2.05L, straw color, transudative
R thoracentesis - 1.6L, straw color, transudative
L tap at [facility]- 1L (Unclear details)
Needs OP Pulm eval.
Small pneumo- post Thoro -repeated CXR evaluated.
#History of pericardial effusion status post pericardiocentesis at [facility]
#CAD s/p 2 stents in 2015
-Continue statin
#Paroxysmal atrial fibrillation-Coumadin- Not on rate controlling agents as OP
#Essential fodywagnigmp-zuodtvyor-itsegxqon
HTN urgency
-Continue clonidine, hydralazine, losartan, nifedipine
-Volume removal should help
-Aldactone added
#Type 2 diabetes
-Insulin sliding scale
-Continue Tresiba 2 units as patient with hypoglycemia intermittently.
#Hyperlipidemia
-Continue Vascepa
#Spinal stenosis with surgeries
-Opiate dependent for pain control
-Continue gabapentin, Percocet
#Migraine history
#History of C. difficile
#History of esophagitis/gastritis
-Continue Protonix
#Constipation
#Anxiety/Depression
-Continue sertraline
#Peripheral artery disease with femoropopliteal bypass
#Former smoker
#Pulm HTN
#Migraines on Aimovig monthly
#Former alcohol use
#Full code
#DVT prophylaxis�Therapeutic INR, 2.12 today
D/W RN
Anticipated Discharge: Within 24 hours
Subjective/Interval History
-
Date of Service: September 17, 2023
Patient continues to have abdominal pain even after having bowel movement-he tells me he has been going on for about a week. He had bowel movement after enema. No nausea or vomiting. Afebrile
Objective Data
-
Vital Signs:
Vital Signs
Temp Pulse Resp BP Pulse Ox
99.4 F 76 20 145/79 100
09/16/23 23:21 09/17/23 00:23 09/16/23 23:21 09/17/23 00:23 09/16/23 23:21
I&O
09/16/23 09/17/23 09/18/23
06:59 06:59 06:59
Intake Total 240 / 240 360 / 360
Balance 240 / 240 360 / 360
[2023-09-17] MEDS: NOVOLOG FLEXPEN-LOW RESISTANCE SC (08:38)
[2023-09-17] MEDS: RENVELA 1600 MG PO ×3 (08:42→17:43)
[2023-09-17] MEDS: COZAAR 100 MG PO (08:43)
[2023-09-17] MEDS: TYLENOL 1000 MG PO ×3 (08:43→21:48)
[2023-09-17] MEDS: PROTONIX 40 MG PO (08:43)
[2023-09-17] MEDS: ZOLOFT 100 MG PO (08:43)
[2023-09-17] MEDS: VISBIOME 1 CAP PO (08:43)
[2023-09-17] MEDS: PROCARDIA XL (EXTENDED RELEASE) 60 MG PO ×2 (08:44→21:47)
[2023-09-17] MEDS: ALDACTONE 25 MG PO (08:44)
[2023-09-17] MEDS: BUMEX 4 MG PO (08:46)
--- NOTE | 2023-09-17 09:00 | W.PN.NEPH.PH ---
Today's Communication / Plan
-
HD tomorrow
Assessment/Plan
-
IMP:
Weakness and falls
Anemia
ESRD presumed DM nephropathy-on hemodialysis [facility], [facility]
Chronic HFpEF
History of bilateral pleural effusions status post thoracentesis
History of pericardial effusion status post pericardiocentesis
Coronary artery disease
Paroxysmal atrial fibrillation
Essential hypertension
DM with multiple microvascular complications
Hyperlipidemia
Spinal stenosis
Migraine history
History of C. difficile
Anxiety/depression
L radial AVF
Severe lumbar spinal stenosis at multiple levels
Chronic low back pain with ambulatory dysfunction
Plan:
HD MWF, next HD tomorrow
awaiting placement for rehab
back on all home BP meds
spironolactone daily
-
-
Date of Service: September 17, 2023
CC / HPI / ROS
-
Chief Complaint:
ESRD
History of Present Illness:
HD MWF
Hgb stable
BP stable high
tolerated HD yesterday
Review of Systems:
no CP/SOB
Labs
-
Labs:
eGFR 10.97 09/16/23 07:57
Albumin 3.1 g/dl (3.5-5.0) L 09/10/23 05:33
Physical Exam
-
Vital Signs:
Vital Signs
Temp Pulse Resp BP Pulse Ox
98.4 F 65 14 156/72 97
09/17/23 07:20 09/17/23 08:46 09/17/23 07:20 09/17/23 08:46 09/17/23 07:20
Cardiovascular:: Regular rate and rhythm
Respiratory:: Bilateral: Coarse
Lung Excursion:: Normal
Abdomen:: Nontender and Soft
Bowel Sounds:: Normal
Extremity Edema:: +2: Bilateral:
[2023-09-17 09:14] LABS: % Basophils 0.8 % (0-2); % Eosinophils 11.6 % (0-6); % Immature Granulocytes 0.4 % (0-0.5); % Lymphocytes 12.2 % (20.5-51.1); % Monocytes 11.5 % (1.7-9.3); % Neutrophils 63.5 % (42.2-75.2); Absolute Basophils 0.1 10^3/uL (0-0.2); Absolute Eosinophils 0.9 10^3/uL (0-0.7); Absolute Lymphocytes 0.9 10^3/uL (1.2-3.4); Absolute Monocytes 0.8 10^3/uL (0.1-0.6); Absolute Neutrophils 4.6 10^3/uL (1.4-6.5); Hemoglobin 8.5 g/dL (13.0-18.0); Mean Corp Hgb Conc. 30.4 g/dL (33.0-37.0); Mean Corpuscular Hgb 25.3 pg (27.0-31.0); Mean Corpuscular Volume 83.3 fL (80.0-94.0); Mean Platelet Volume 9.9 fL (7.4-10.4); Nucleated Red Blood Cells % 0 % (-); Platelet Count 208 10^3/uL (130-400); Red Blood Cell Count 3.36 10^6/uL (4.70-6.10); Red Cell Dist. Width 20.1 % (11.5-14.5); White Blood Cell Count 7.3 10^3/uL (4.8-10.8)
[2023-09-17 09:19] LABS: INR 2.12; PT 23.6 Sec (11.4-14.6)
[2023-09-17 09:44] VITALS: BP 139/57; PULSE 66; O2SAT 98
[2023-09-17 10:34] LABS: Blood Urea Nitrogen 44 mg/dl (9-20); Calcium 8.8 mg/dl (8.4-10.2); Carbon Dioxide 28 mmol/L (22-30); Chloride 97 mmol/L (98-107); Estimated Creatinine Clearance 19 ml/min; Glucose 86 mg/dl (70-99); Potassium 4.6 mmol/L (3.5-5.1); Sodium 135 mmol/L (135-145); eGFR 14.26
[2023-09-17 12:20] LABS: Glucose - Point of Care 153 mg/dl (70-99)
[2023-09-17] MEDS: NOVOLOG FLEXPEN-LOW RESISTANCE 1 UNITS SC (12:59)
--- NOTE | 2023-09-17 14:19 | CON.GI ---
Addendum entered and electronically signed by Radha Long MD 09/17/23 21:26:
I saw and examined the patient.
The INVESTIGATION OFFICER's note was reviewed and I agree with the note.
Comment: This is a 58-year-old who has complex medical history as listed below who we were consulted for abdominal pain. He has vague nonspecific lower abdominal pain and he did have a recent CT to evaluate this which did not show any obvious
etiology for the pain other than constipation but was also noted to have moderate abdominal pelvic ascites. He did have a bowel movement last night. No nausea or vomiting.
Assessment and plan lower abdominal pain which I think is related to constipation and also he does have abdominal pelvic ascites will schedule for paracenteses to rule out SBP and also calculate SAAG to see if the fluid is related to cardiac
etiology or possible underlying cirrhosis ? cardiogenic vs from prior ETOH. His current LFTs with elevated alkaline phosphatase level. will get GGT. He does have end-stage renal disease on hemodialysis also. He is on Coumadin. And his INR today
was 2.12
2. Iron deficiency anemia he did have recent endoscopy and colonoscopy apparently at [facility] and was told he has Dunlap's esophagus but no obvious source of bleeding was found and he was recommended a capsule endoscopy he also apparently had a
recent endoscopy at [place] for coffee-ground emesis report not available. Continue PPI
Original Note:
Consultation
-
Date/Time Consultation Requested: 09/17/23 0920
Date/Time Consultation Performed: 09/17/23 1420
Requesting Provider: Kyle Gamble MD
Performing Provider: MICHELLE Wilson, Radha Long MD
Reason for Consultation: abdominal pain
Medical History
Chief Complaint / HPI
Chief Complaint: abdominal pain
History of Present Illness:
The patient is a 58-year-old male with a past medical history significant for paroxysmal atrial fibrillation on Coumadin, CAD, end-stage renal disease on hemodialysis, iron deficiency anemia, heart failure with preserved ejection fraction, history
of pleural effusions with pericardiocentesis, hypertension, spinal stenosis, GERD, ?Dunlap's Esophagus, prior C-diff, DM, CHF, migraines, gastritis, constipation with admission in July with fall and chest wall hematoma with elevated INR. He was
treated with IV Dilaudid and Tylenol and noted coffee ground emesis. EGD was held and pt was given bowel regiment. He had recent EGD at [place] with esophagitis at outside hospital. He now return 09/08 with generalized weakness. During admission
now with complaints of abdominal pain over past week. Pt very nonspecific with some 7/10 dull lower abdominal pain. Pt unable to state what makes pain better or worse. No change with eating or BM. He completed CT 09/15 with tiny left and small
right effusion improved, Atelectasis vs PNA, moderate abdominopelvic ascites which is new and moderate, third spacing and fluid overload. Improved chest wall hematoma and hematoma of buttock, bladder thickening and b/l atrophy. small HH and large
amount of stool.
Per last evaluation Pt follows with [facility] , but was hospitalized several months ago for anemia and underwent EGD and colonoscopy at that time with noted Dunlap's esophagus which he takes PPI for but overall no reported no significant findings
on his EGD or colonoscopy to explain his anemia/heme positive stool at that time and was recommended to have a capsule study which was note completed.
Other than abdominal pain states some loose stools patient denies dysphagia, odynophagia, GERD, nausea, vomiting, blood or black in stools.
Past Medical History
Past Medical History: Arrhythmias (Paroxysmal atrial fibrillation on Coumadin), CAD, CHF, GERD (? Dunlap's esophagus), HTN, Renal Failure (On hemodialysis Thursday) and Other (Spinal stenosis, chronic iron deficiency anemia, pleural
effusion)
Past Surgical History: Other (Left lower arm AV fistula)
Social History
Tobacco: Former Smoker
Alcohol: Former (quit 5 years ago)
Drug: None
Living: With Family
Family History
Family History: Other (no family hx colon CA or polyps)
Allergies / Home Medications
Allergy/AdvReac Type Severity Reaction Status Date / Time
morphine Allergy Unknown Verified 09/09/23 13:31
�Medication �Instructions �Recorded
atorvastatin 80 mg tablet 80 mg PO HS High Cholesterol 12/23/22
icosapent ethyl 1 gram capsule 2 g PO BID High Cholesterol 12/23/22
(Vascepa)
lidocaine-prilocaine 2.5 %-2.5 % 1 applic topical MOWEFR PRN port 12/23/22
topical cream access
erenumab-aooe 70 mg/mL 70 mg SC MONTHLY migraine 02/05/23
subcutaneous auto-injector
(Aimovig Autoinjector)
nifedipine 60 mg tablet,extended 60 mg PO BID Blood Pressure #0 tabs 02/13/23
release
insulin aspart U-100 100 unit/mL 1 sliding scale dose SC ACHS 03/30/23
(3 mL) subcutaneous pen (Novolog diabetes
FlexPen U-100 Insulin aspart)
lactobacillus combination no.4 3 3,000 mmu cells PO DAILY probiotic 03/30/23
billion cell capsule (Probiotic)
sevelamer carbonate 800 mg tablet 1,600 mg PO MEALS Kidney Disease 03/30/23
polyethylene glycol 3350 17 gram 17 g PO DAILY PRN constipation #0 04/10/23
oral powder packet (HealthyLax) ea
bumetanide 2 mg tablet 4 mg PO SUTUTHSA Fluid 07/29/23
Retention/Swelling
insulin degludec 100 unit/mL 6 unit SC HS Diabetes 07/29/23
subcutaneous solution (Tresiba
U-100 Insulin)
losartan 100 mg tablet 100 mg PO DAILY Blood Pressure 07/29/23
sertraline 100 mg tablet 100 mg PO DAILY Mental Health 07/29/23
vitamin B complex-vitamin C 100 1 tab PO QPM Supplement 07/29/23
mg-folic acid 1 mg tablet
(Dialyvite)
gabapentin 100 mg capsule 100 mg PO HS Pain 09/09/23
pantoprazole 40 mg tablet,delayed 40 mg PO BID Gastrointestinal Issue 09/09/23
release (Protonix)
acetaminophen 500 mg tablet 1,000 mg (2 x 500 mg) PO TID PRN 09/16/23
(Tylenol Extra Strength) Pain #0 tabs
clonidine HCl 0.2 mg tablet 0.2 mg PO Q8H Blood pressure #0 09/16/23
tabs
hydralazine 100 mg tablet 100 mg PO Q8H Blood Pressure #0 09/16/23
tabs
oxycodone-acetaminophen 5 mg-325 1 tab PO Q8H PRN moderate pain #6 09/16/23
mg tablet tabs
spironolactone 25 mg tablet 25 mg PO DAILY Blood pressure #30 09/16/23
tabs
warfarin 1 mg tablet 3.5 mg (3.5 x 1 mg) PO DAILY Blood 09/16/23
clot prevention/tx #60 tabs
Review of Systems
-
History Source: Patient
Constitutional: Reports Other (initially wt loss then recent gain)
EENT: Reports No Symptoms
Respiratory: Reports No Symptoms
Cardiac: Reports No Symptoms
Abdomen/GI: Reports Abdominal Pain and Diarrhea
: Reports No Symptoms
Skin: Reports No Symptoms
Neurological: Reports Weakness
Endocrine: Reports No Symptoms
Hematologic/Lymphatic: Reports No Symptoms
Vital Signs
Temp Pulse Resp BP Pulse Ox
98.4 F 65 14 156/72 97
09/17/23 07:20 09/17/23 08:46 09/17/23 07:20 09/17/23 08:46 09/17/23 07:20
Physical Exam
Exam
General: Other
HEENT: Normocephalic and Anicteric
Respiratory: Clear
Cardiac: Regular Rhythm and Peripheral Edema
GI: Soft and Distended (minimal )
Musculoskeletal: No Clubbing and No Cyanosis
Skin: Warm and Dry
Neuro: Awake, Alert and AO x 3
Psych: Calm
Results
WBC 7.3 10^3/uL (4.8-10.8) 09/17/23 08:44
Hgb 8.5 g/dL (13.0-18.0) L 09/17/23 08:44
Hct 28.0 % (39.0-52.0) L 09/17/23 08:44
MCV 83.3 fL (80.0-94.0) 09/17/23 08:44
Plt Count 208 10^3/uL (130-400) 09/17/23 08:44
Absolute Neuts (auto) 4.6 10^3/uL (1.4-6.5) 09/17/23 08:44
PT 23.6 Sec (11.4-14.6) H 09/17/23 08:44
INR 2.12 09/17/23 08:44
Sodium 135 mmol/L (135-145) 09/17/23 08:44
Potassium 4.6 mmol/L (3.5-5.1) 09/17/23 08:44
Chloride 97 mmol/L (98-107) L 09/17/23 08:44
Carbon Dioxide 28 mmol/L (22-30) 09/17/23 08:44
BUN 44 mg/dl (9-20) H 09/17/23 08:44
Creatinine 4.5 mg/dL (0.7-1.3) H* 09/17/23 08:44
Calcium 8.8 mg/dl (8.4-10.2) 09/17/23 08:44
Total Bilirubin 0.8 mg/dl (0.2-1.3) 09/10/23 05:33
AST 25 U/L (17-59) 09/10/23 05:33
ALT 10 U/L (0-50) 09/10/23 05:33
Alkaline Phosphatase 192 U/L (38-126) H 09/10/23 05:33
Hep Bs Antibody Positive 09/12/23 12:50
Hep B Core Total Ab Negative (Negative) 09/12/23 12:50
Diagnostic Image Results:
09/15 CT Abd/pelvis Wo Iv Cont
IMPRESSION: Tiny left and small right pleural effusion. Both improved. Many tiny pockets of air throughout the right pleural effusion. New. Developing infection such as empyema should be considered.
Mild bibasilar consolidation suggesting atelectasis versus pneumonia. Stable
Moderate abdominopelvic ascites. New.
Findings suggesting moderate third spacing or volume overloaded. Progressed.
Probable large hematoma along left chest wall. Improved.. Incompletely imaged. Probable hematomas of the buttocks bilaterally, left greater than right.
Many tiny gallstones versus dense gallbladder sludge. New
Mild diffuse bladder wall thickening likely due to limited distention. Cystitis and bladder outlet obstruction not excluded. Stable
Mild bilateral renal atrophy. Stable
Small hiatal hernia. New.
Large amount of fecal material throughout the colon. Progressed.
Prior GI Procedures:
EGD/colon recently done [facility]
Colonoscopy: recently done [facility]
Assessment / Plan
-
The patient is a 58-year-old male with a past medical history significant for paroxysmal atrial fibrillation on Coumadin, CAD, end-stage renal disease on hemodialysis, iron deficiency anemia, heart failure with preserved ejection fraction, history
of pleural effusions with pericardiocentesis, hypertension, spinal stenosis, GERD, ?Dunlap's Esophagus, prior C-diff, DM, CHF, migraines, gastritis, constipation with admission in July with fall and chest wall hematoma with elevated INR. He was
treated with IV Dilaudid and Tylenol and noted coffee ground emesis. EGD was held and pt was given bowel regiment. He had recent EGD at [place] with esophagitis at outside hospital. He now return 09/08 with generalized weakness. During admission
now with complaints of abdominal pain over past week. Pt very nonspecific with some 7/10 dull lower abdominal pain. Pt unable to state what makes pain better or worse. No change with eating or BM. He completed CT 09/15 with tiny left and small
right effusion improved, Atelectasis vs PNA, moderate abdominopelvic ascites which is new and moderate, third spacing and fluid overload. Improved chest wall hematoma and hematoma of buttock, bladder thickening and b/l atrophy. small HH and large
amount of stool.
Per last evaluation Pt follows with [facility], but was hospitalized several months ago for anemia and underwent EGD and colonoscopy at that time with noted Dunlap's esophagus which he takes PPI for but overall no reported no significant findings
on his EGD or colonoscopy to explain his anemia/heme positive stool at that time and was recommended to have a capsule study which was note completed.
-lower abdominal pain
-new ascites on CT
-large stool burden
-hypoalbuminemia
-LE edema
-recent Large left chest wall hematoma
-hx coffee-ground emesis
Other pertinent medical history:
-History of paroxysmal atrial fibrillation on Coumadin
-Acute on chronic normocytic anemia,
-History of GERD, ?Dunlap's esophagus
-End-stage renal disease on hemodialysis
-Heart failure with preserved ejection fraction
-CHF
-DM
-c-diff
-Hypertension
-Spinal stenosis
-CAD
-hx prior ETOH use
PLAN:
Etiology of abdominal pain related to new ascites seen on CT vs constipation vs other
large stool 09/15 with minimal change in pain
will review with Dr. Long for para-- reviewed with Toshia Jacob there is fluid that can be tapped for fluid analysis to see if underlying cardiac or liver issue-- platelet normal, albumin persistently low and INR not reliable for liver with
coumadin use
cont diet
some improved weakness
will follow
-
-
Thank you for consultation and allowing me to participate in the patient's care. Please call the welding machine operator ultrasonic GI physician during the after hours with any questions or concerns.
[2023-09-17 14:42] VITALS: BP 121/57; PULSE 60; O2SAT 97
[2023-09-17 15:20] VITALS: BP 121/54
--- NOTE | 2023-09-17 15:21 | CM ---
Per MD notation: Anticipate discharge on 09/18/23. Discharge Plan of Care: [facility] with HD services. Facility liaison notified.
[2023-09-17 17:13] LABS: Glucose - Point of Care 244 mg/dl (70-99)
[2023-09-17] MEDS: COUMADIN 3 MG PO (17:42)
[2023-09-17] MEDS: B COMPLEX w/VITAMIN C 1 CAPLET PO (17:43)
[2023-09-17] MEDS: NOVOLOG FLEXPEN-LOW RESISTANCE 2 UNITS SC (17:44)
[2023-09-17 21:15] LABS: Glucose - Point of Care 266 mg/dl (70-99)
[2023-09-17] MEDS: LANTUS 0.0200000000000000004 UNITS SC (21:47)
[2023-09-17] MEDS: NEURONTIN 100 MG PO (21:48)
[2023-09-17] MEDS: LIPITOR 80 MG PO (21:51)
[2023-09-17] MEDS: PROTONIX PO (21:54)
[2023-09-17 23:09] VITALS: BP 168/73
[2023-09-18] VITALS (7 sets, daily range): BP systolic 71–183; BP diastolic 35–89; BMI 27.7
[2023-09-18] MEDS: EMLA CREAM TOPICAL ×3 (06:06→10:09)
--- NOTE | 2023-09-18 06:11 | PTCARENOTE ---
Patient scheduled for 0700 HD; patient refused Emla cream at this time; this RN explained to him that it is to be given 1 hour before HD; patient says that it is too early and that HD does not start until 8am; he states that he wants cream applied
at 0730; will pass on to dayshift RN.
--- NOTE | 2023-09-18 06:18 | W.PN.GI.CBS2 ---
Today's Communication / Plan
-
See assessment and plan for details
Assessment / Plan
-
1. Abdominal pain: Mild, overall nondescript, with no relationship to eating or defecation, with negative GI workup including endoscopy and colonoscopy, GI, possibly more related to mild ascites noted on CT scan. The ascites is likely related to
heart failure in the setting of dialysis, but underlying cirrhosis is not excluded. At this point will await paracentesis without SBP and to help further characterize cause of fluid. Otherwise we will continue supportive care for now. He will
follow-up with [facility] GI discharge.
Subjective
Subjective
Date of Service: September 18, 2023
Patient doing okay, still some mild lower discomfort, not related to eating or defecation, no fevers or chills overnight.
Objective
Data Reviewed
Laboratory Data:
Laboratory Results
PT 23.6 Sec (11.4-14.6) H 09/17/23 08:44
INR 2.12 09/17/23 08:44
Total Bilirubin 0.8 mg/dl (0.2-1.3) 09/10/23 05:33
AST 25 U/L (17-59) 09/10/23 05:33
ALT 10 U/L (0-50) 09/10/23 05:33
Alkaline Phosphatase 192 U/L (38-126) H 09/10/23 05:33
Vital Signs and I&O:
Vital Signs
Temp Pulse Resp BP Pulse Ox
97.5 F 55 16 110/59 96
09/17/23 23:09 09/18/23 05:02 09/17/23 23:09 09/18/23 05:02 09/17/23 23:09
I&O
09/16/23 09/17/23 09/18/23
06:59 06:59 06:59
Intake Total 240 / 240 360 / 360 1200 / 1200
Balance 240 / 240 360 / 360 1200 / 1200
Physical Exam
Physical Exam
General: NAD
Abdomen: normal bowel sounds, soft, no tenderness, no masses or bruits, probable very mild ascites
[2023-09-18 07:23] LABS: Glucose - Point of Care 166 mg/dl (70-99)
[2023-09-18] MEDS: NOVOLOG FLEXPEN-LOW RESISTANCE SC ×2 (07:33→11:53)
--- NOTE | 2023-09-18 07:35 | W.PN.HOSP.TC ---
Today's Communication/Plan
-
Continue current management. Discharge planning in progress possibly today.
Assessment / Plan
Assessment / Plan
In general looks acute on chronically ill
CVS: Irregular rate and rhythm, S1-S2 normal
Chest: CTA B/L but decreased breath sounds at the bases
Abdomen: Soft, mild tenderness diffusely/ Bowel sounds present
Extremities: B/L edema present, normal pulses
Neuro: Alert oriented x 3 no focal neurological deficits, generalized weakness.
Chest x-ray:
1. Small bilateral pleural effusions.
2. Right basilar pneumothorax is not visualized on the current study, as the pleural space has filled in with fluid. Overall, findings are suggestive of trapped lung at the right lung base.
3. Moderate cardiomegaly.
CT of the abdomen:
Tiny left and small right pleural effusion. Both improved. Many tiny pockets of air throughout the right pleural effusion. New. Developing infection such as empyema should be considered.
Mild bibasilar consolidation suggesting atelectasis versus pneumonia. Stable
Moderate abdominopelvic ascites. New.
Findings suggesting moderate third spacing or volume overloaded. Progressed.
Probable large hematoma along left chest wall. Improved.. Incompletely imaged. Probable hematomas of the buttocks bilaterally, left greater than right.
Many tiny gallstones versus dense gallbladder sludge. New
Mild diffuse bladder wall thickening likely due to limited distention. Cystitis and bladder outlet obstruction not excluded. Stable
Mild bilateral renal atrophy. Stable
Small hiatal hernia. New.
Large amount of fecal material throughout the colon. Progressed.
Addendum:
Reportedly the patient had a thoracentesis on the right performed yesterday. This could account for the air throughout the right pleural effusion. The fluid was sent for cytology. Follow-up with these results is recommended as well.
A/P:
# Abdominal pain
-Unclear etiology, possible constipation related or ascites
-Seen and reviewed CT scan of the abdomen
-Requested GI consult for further evaluation and input-->GI evaluated the patient and asked for IR to do paracentesis of ascites. Ascites could be related to heart failure or end-stage renal disease or cirrhosis but rule out SBP.
-Paracentesis with no signs of SBP.
-Plan to discharge today and follow-up with GI as outpatient
# Weakness/ambulatory dysfunction secondary to deconditioning in the setting of chronic medical conditions and recent hospitalizations
-PT/OT
-Agreeable for SNF placement
#Recent chest wall hematoma in the setting of Coumadin use July 2023
#ESRD on hemodialysis M, W, F
Volume Overload with interstitial pulmonary edema secondary to ESRD
-Continue sevelamer
-Hd per schedule. May need additional volume removal.
-Nephrology following
#Anemia of chronic kidney disease
-Hemoglobin stable at 8.7 to 8.2-->today 8.1
-Rpt Hb after HD
#Chronic HFpEF
-Continue Bumex and Volume removal at HD
#Recurrent transudative bilateral pleural effusions: multifactorial (CKD, hypoalbuminemia, Heart Failure)
Right Thoracentesis 09/15/23 -yielding 500 cc of clear matias pleural fluid.Path pending.
R thoracentesis - 1L, cytology negative
L thoracentesis 12/31/22- 1400mL
L thoracentesis -2.05L, straw color, transudative
R thoracentesis - 1.6L, straw color, transudative
L tap at [facility]- 1L (Unclear details)
Needs OP Pulm eval.
Small pneumo- post Thoro -repeated CXR evaluated.
#History of pericardial effusion status post pericardiocentesis at [facility]
#CAD s/p 2 stents in 2015
-Continue statin
#Paroxysmal atrial fibrillation-Coumadin- Not on rate controlling agents as OP
#Essential [id number]
HTN urgency
-Continue clonidine, hydralazine, losartan, nifedipine
-Volume removal should help
-Aldactone added
#Mild hypotension
Post hemodialysis and paracentesis. Asymptomatic. Can give albumin if needed but right now just recheck and monitor.
#Type 2 diabetes
-Insulin sliding scale
-Continue Tresiba 2 units as patient with hypoglycemia intermittently.
#Hyperlipidemia
-Continue Vascepa
#Spinal stenosis with surgeries
-Opiate dependent for pain control
-Continue gabapentin, Percocet
#Migraine history
#History of C. difficile
#History of esophagitis/gastritis
-Continue Protonix
#Constipation
#Anxiety/Depression
-Continue sertraline
#Peripheral artery disease with femoropopliteal bypass
#Former smoker
#Pulm HTN
#Migraines on Aimovig monthly
#Former alcohol use
#Full code
#DVT prophylaxis�Therapeutic INR, 2.37 today
D/W RN
Anticipated Discharge: Today
Subjective/Interval History
-
Date of Service: September 18, 2023
Patient abdominal pain improving. No chest pain or shortness of breath. Afebrile
Objective Data
-
Labs:
Laboratory Results
09/18/23
06:00
WBC Pending
Hgb Pending
Hct Pending
Plt Count Pending
PT Pending
INR Pending
Sodium Pending
Potassium Pending
Chloride Pending
Carbon Dioxide Pending
BUN Pending
Creatinine Pending
Glucose Pending
Calcium Pending
Vital Signs:
Vital Signs
Temp Pulse Resp BP Pulse Ox
97.5 F 55 16 110/59 96
09/17/23 23:09 09/18/23 05:02 09/17/23 23:09 09/18/23 05:02 09/17/23 23:09
I&O
09/17/23 09/18/23 09/19/23
06:59 06:59 06:59
Intake Total 360 / 360 1200 / 1200
Balance 360 / 360 1200 / 1200
[2023-09-18] MEDS: NOVOLOG FLEXPEN-LOW RESISTANCE 1 UNITS SC ×2 (07:37→16:33)
[2023-09-18] MEDS: RENVELA PO (08:00)
[2023-09-18 08:24] LABS: % Basophils 1.1 % (0-2); % Eosinophils 12.5 % (0-6); % Immature Granulocytes 0.5 % (0-0.5); % Lymphocytes 10.9 % (20.5-51.1); % Monocytes 9.8 % (1.7-9.3); % Neutrophils 65.2 % (42.2-75.2); Absolute Basophils 0.1 10^3/uL (0-0.2); Absolute Eosinophils 0.8 10^3/uL (0-0.7); Absolute Lymphocytes 0.7 10^3/uL (1.2-3.4); Absolute Monocytes 0.6 10^3/uL (0.1-0.6); Absolute Neutrophils 4.2 10^3/uL (1.4-6.5); Hemoglobin 8.1 g/dL (13.0-18.0); Mean Corp Hgb Conc. 31.2 g/dL (33.0-37.0); Mean Corpuscular Hgb 25.9 pg (27.0-31.0); Mean Corpuscular Volume 83.1 fL (80.0-94.0); Mean Platelet Volume 9.8 fL (7.4-10.4); Nucleated Red Blood Cells % 0 % (-); Platelet Count 205 10^3/uL (130-400); Red Blood Cell Count 3.13 10^6/uL (4.70-6.10); White Blood Cell Count 6.4 10^3/uL (4.8-10.8)
[2023-09-18 08:30] LABS: INR 2.37; PT 25.8 Sec (11.4-14.6)
[2023-09-18] MEDS: RETACRIT 10000 UNITS IV (09:10)
[2023-09-18 09:38] LABS: Blood Urea Nitrogen 54 mg/dl (9-20); Calcium 8.5 mg/dl (8.4-10.2); Carbon Dioxide 25 mmol/L (22-30); Chloride 97 mmol/L (98-107); Estimated Creatinine Clearance 15 ml/min; Glucose 196 mg/dl (70-99); Potassium 5.1 mmol/L (3.5-5.1); Sodium 134 mmol/L (135-145); eGFR 10.74
[2023-09-18] MEDS: PERCOCET 5/325 1 TABLET PO (10:57)
[2023-09-18 11:46] LABS: Glucose - Point of Care 140 mg/dl (70-99)
[2023-09-18] MEDS: RENVELA 1600 MG PO ×2 (11:51→16:33)
[2023-09-18] MEDS: APRESOLINE 100 MG PO (11:51)
[2023-09-18] MEDS: PROTONIX 40 MG PO (11:51)
[2023-09-18] MEDS: ALDACTONE 25 MG PO (11:51)
[2023-09-18] MEDS: VISBIOME 1 CAP PO (11:51)
[2023-09-18] MEDS: ZOLOFT 100 MG PO (11:52)
[2023-09-18] MEDS: COZAAR 100 MG PO (11:52)
[2023-09-18] MEDS: CATAPRES 0.200000000000000011 MG PO (11:52)
[2023-09-18] MEDS: PROCARDIA XL (EXTENDED RELEASE) 60 MG PO (11:52)
[2023-09-18] MEDS: TYLENOL PO (11:53)
--- NOTE | 2023-09-18 12:41 | W.PN.NEPH.HD ---
Assessment
-
- complains of pain all over his body
- tolerating HD well
- plan for d/c to rehab
Progress Note - Hemodialysis
-
Date of Service: September 18, 2023
Duration: 30 minutes and 3 hours
Potassium Bath: 2
Calcium Bath: 2.5
Opti-Dialyzer: 160
Ultrafiltration: Other (3L)
Blood Flow: 400
Dialysate Flow: 600
[2023-09-18 14:26] LABS: Body Fluid Polymorphonuclear 8.6 %; Body Fluid WBC 301 /CUMM
[2023-09-18 14:27] LABS: Body Fluid Mononuclear 91.4 %; Body Fluid Second Tech CF
[2023-09-18 14:47] LABS: Body Fluid Albumin 1.3 g/dl; Body Fluid Amylase 30 U/L; Body Fluid LDH < 90 U/L; Body Fluid Protein 3.2 g/dl
--- NOTE | 2023-09-18 14:56 | W.DCSUMMARY ---
Discharge Summary
Discharge Data
Date of Admission: 09/10/23
Date of Discharge: 09/18/23
-
Pending Results: No
Hospital Course
Patient 58 years old male with history of end-stage renal disease on hemodialysis, pleural effusions, hypertension, diabetes mellitus, CAD, paroxysmal A-fib on chronic anticoagulation, anemia, spinal stenosis, presented to the hospital with
generalized weakness. Nephrology consulted and hemodialysis was managed as inpatient. Patient had bilateral small pleural effusions right more than left and he underwent thoracentesis with 500 cc on 09/14. Patient also had infectious workup
including blood cultures with no growth, cultures from pleural fluid with no growth. He also had abdominal pain and GI consulted. IR consulted for paracentesis. He had paracentesis today on 09/17 preliminary results no signs of infection. Patient
had mild relative drop in blood pressure and considering that he had hemodialysis and paracentesis today not uncommon and he is asymptomatic from that perspective. We did held his antihypertensives this afternoon postprocedure but can be resumed
tomorrow providing he remains hemodynamically stable. We discussed to follow-up with GI as outpatient whether he wants to go to his outpatient GI or our local GI and information on the discharge records to follow-up on further results of the
paracentesis and further GI evaluation as outpatient. Patient is going to be discharged in stable condition to skilled rehab.
Discharge duration: 35 minutes
Discharge Plan
-
Patient Disposition: Intermediate/SNF
Discharge Diagnosis/Procedures: Ambulation dysfunction, generalized weakness, end-stage renal disease, anemia, chronic heart failure with preserved ejection fraction, recurrent bilateral pleural effusions, coronary artery disease, atrial
fibrillation, diabetes, hyperlipidemia, spinal stenosis, history of migraines, esophagitis/gastritis, anxiety and depression, peripheral artery disease, pulmonary hypertension, ex-smoker, migraines, Chest wall hematoma 08/04/23.
Diet: 2 Gram Sodium, Diabetic, Carb Controlled and Restrict fluids to 64 oz
Activity: With assistance and As tolerated
Driving Restrictions: No driving
Blood Work: Please PCP to order INR in 2 days, CBC, BMP in 2 days
Other Services: PT and OT
Activity Restrictions/Additional Instructions:
Outpatient follow-up with urology for thickened bladder. You may need a cystoscopy. You need to follow-up with lung doctor for pleural effusion. Cytology on pleural fluid pending at discharge needs to be followed up. Please have primary
physician follow-up that with 2 weeks in hospital. Workup of anemia. Follow-up with GI doctor and also primary physician
Referrals:
Nataly Otto MD [Active] - in two to four weeks
Radha Long MD [Active] - in two to three weeks
Rosemarie Paige DO [Family Provider] - in less than 1 week
Brian Barrientos MD [Active] - in two to three weeks
Sarath Gonzalez MD [Active] - (for recurrent pleural effusion work up.)
Prescriptions:
New
spironolactone 25 mg Tablet
25 mg PO DAILY Qty: 30 0RF
oxycodone-acetaminophen 5-325 mg Tablet
1 tab PO Q8H PRN (Reason: moderate pain) Qty: 6 0RF
clonidine HCl 0.2 mg Tablet
0.2 mg PO Q8H Qty: 0 0RF
warfarin 1 mg tablet
3.5 mg PO DAILY Qty: 60 0RF
Continued
atorvastatin 80 mg Tablet
80 mg PO HS
icosapent ethyl [Vascepa] 1 gram Capsule
2 g PO BID
lidocaine-prilocaine 2.5-2.5 % Cream
1 applic TOPICAL MOWEFR PRN (Reason: port access)
Rx Instructions:
12/23/22 APPLY ONE HOUR PRIOR TO HD TO LEFT AVF
Aimovig Autoinjector 70 mg/mL auto-injector
70 mg SC MONTHLY
Patient Comments:
07/29/2023: pt states hasn't taken in a few months
nifedipine 60 mg Tablet Extended Release
60 mg PO BID Qty: 0 0RF
sevelamer carbonate 800 mg tablet
1,600 mg PO MEALS
Probiotic 3 billion cell Capsule
3,000 mmu cells PO DAILY
insulin aspart U-100 [Novolog FlexPen U-100 Insulin] 100 unit/mL (3 mL) insulin pen
1 sliding scale dose SC ACHS
polyethylene glycol 3350 [HealthyLax] 17 gram Powder In Packet
17 g PO DAILY PRN (Reason: constipation) Qty: 0 0RF
bumetanide 2 mg tablet
4 mg PO SUTUTHSA
sertraline 100 mg tablet
100 mg PO DAILY
losartan 100 mg tablet
100 mg PO DAILY
Dialyvite 100-1 mg tablet
1 tab PO QPM
insulin degludec [Tresiba U-100 Insulin] 100 unit/mL solution
6 unit SC HS
pantoprazole [Protonix] 40 mg tablet,delayed release (DR/EC)
40 mg PO BID
gabapentin 100 mg capsule
100 mg PO HS
Changed
acetaminophen [Tylenol Extra Strength] 500 mg tablet
1,000 mg PO TID PRN (Reason: Pain) Qty: 0 0RF
hydralazine 100 mg tablet
100 mg PO Q8H Qty: 0 0RF
Discontinued
clonidine HCl 0.1 mg Tablet
0.1 mg PO TID
oxycodone-acetaminophen 5-325 mg tablet
1 tab PO Q8H PRN (Reason: moderate pain)
Patient Comments:
09/09/2023: last filled 06/16/23, 90 tabs for 30 days from [facility]
warfarin 6 mg tablet
6 mg PO QPM
Discharge Orders:
Discharge Patient (As Directed); Ordered 09/18/23
Ordered By: Kyle Gamble
Discharge Date and Time
Discharge Date/Time: 09/18/23 17:17
Print Language: GRENADIAN
--- NOTE | 2023-09-18 15:15 | PTCARENOTE ---
patient bp 97/35, 61 noted at this time.pt is asymptomatic at this time. md aware. order to recheck bp in 15 min. plan of care ongoing.
--- NOTE | 2023-09-18 15:34 | PTCARENOTE ---
patient bp rechecked after 15 min as ordered. 100/45,61.. MD aware. no new orders at this time. continue to monitor
--- NOTE | 2023-09-18 15:38 | CM ---
Patient has been medically cleared for discharge to [facility] for custodial, rehab and HD services. Transport scheduled for 4:30PM. Patient's sister, Elizabeth Quiñones, notified.
NURSE TO NURSE REPORT # [phone]
FAX # [phone]
[2023-09-18] MEDS: APRESOLINE PO (16:13)
[2023-09-18] MEDS: CATAPRES PO (16:14)
[2023-09-18 16:33] LABS: Glucose - Point of Care 193 mg/dl (70-99)
[2023-09-18] MEDS: TYLENOL 1000 MG PO (16:33)
== END 2023-09-18 17:17 | DRG 640 ==
LOC: 2 NORTH 10:53
PROVIDERS: Hospitalist; Nurse Practitioner Adult Health; Radiology Vascular & Interventional Radiology; Specialist; ADMITTING PHYSICIAN Hospitalist; ATTENDING PHYSICIAN Hospitalist; CONSULT PHYSICIAN Internal Medicine Gastroenterology; CONSULT PHYSICIAN Student in an Organized Health Care Education/Training Program; EMERGENCY PHYSICIAN Emergency Medicine; FAMILY PHYSICIAN Family Medicine
PROC: 5A1D70Z Performance of Urinary Filtration, Intermittent, Less than 6 Hours Per Day (ICD-10-PCS; 2023-09-10)
PROC: 0W993ZZ Drainage of Right Pleural Cavity, Percutaneous Approach (ICD-10-PCS; 2023-09-15)
PROC: 0W9G3ZZ Drainage of Peritoneal Cavity, Percutaneous Approach (ICD-10-PCS; 2023-09-18)
DX: E87.70 Fluid overload, unspecified (principal); N18.6 End stage renal disease; I50.32 Chronic diastolic (congestive) heart failure; I13.2 Hypertensive heart and chronic kidney disease with heart failure and with stage 5 chronic kidney disease, or end stage renal disease; D68.32 Hemorrhagic disorder due to extrinsic circulating anticoagulants; J90 Pleural effusion, not elsewhere classified; J93.9 Pneumothorax, unspecified; R18.8 Other ascites; Z87.891 Personal history of nicotine dependence; D63.1 Anemia in chronic kidney disease; I48.0 Paroxysmal atrial fibrillation; I25.10 Atherosclerotic heart disease of native coronary artery without angina pectoris; K59.00 Constipation, unspecified; F32.A Depression, unspecified; F41.9 Anxiety disorder, unspecified; E11.22 Type 2 diabetes mellitus with diabetic chronic kidney disease; E78.00 Pure hypercholesterolemia, unspecified; M48.061 Spinal stenosis, lumbar region without neurogenic claudication; I16.0 Hypertensive urgency; I27.20 Pulmonary hypertension, unspecified
CPT/HCPCS: 88305; 32555; 49083; 71045; 71046; 74176; 76604; 80048; 80051; 80053; 82042; 82150; 82533; 82607; 82728; 82945; 82962; 83036; 83540; 83550; 83615; 83986; 84157; 84443; 85014; 85018; 85025; 85027; 85610; 86704; 86706; 87015; 87040; 87070; 87205; 87340; 88112; 88341; 88342; 89051; 93005; 97167; 97530; 99285; G0257; P9047; Q5106

== ENCOUNTER 2023-10-29 17:03 | Inpatient (IN) | payer MEDICARE, OTHER, SELFPAY ==
[2023-10-29 11:20] VITALS: BP 142/59; BMI 29.0
[2023-10-29 11:59] VITALS: BMI 28.9
[2023-10-29 12:12] VITALS: BP 140/63
[2023-10-29 12:19] LABS: % Basophils 0.7 % (0-2); % Eosinophils 6.2 % (0-6); % Immature Granulocytes 0.3 % (0-0.5); % Lymphocytes 9.5 % (20.5-51.1); % Neutrophils 72.3 % (42.2-75.2); Absolute Basophils 0.1 10^3/uL (0-0.2); Absolute Eosinophils 0.5 10^3/uL (0-0.7); Absolute Lymphocytes 0.7 10^3/uL (1.2-3.4); Absolute Monocytes 0.8 10^3/uL (0.1-0.6); Absolute Neutrophils 5.3 10^3/uL (1.4-6.5); Hematocrit 29.2 % (39.0-52.0); Hemoglobin 9.2 g/dL (13.0-18.0); Mean Corp Hgb Conc. 31.5 g/dL (33.0-37.0); Mean Corpuscular Hgb 24.7 pg (27.0-31.0); Mean Corpuscular Volume 78.3 fL (80.0-94.0); Mean Platelet Volume 9.3 fL (7.4-10.4); Nucleated Red Blood Cells % 0 % (-); Platelet Count 335 10^3/uL (130-400); Red Blood Cell Count 3.73 10^6/uL (4.70-6.10); Red Cell Dist. Width 19.1 % (11.5-14.5); White Blood Cell Count 7.4 10^3/uL (4.8-10.8)
[2023-10-29 12:36] LABS: ALT (SGPT) < 10 U/L (0-50); AST (SGOT) 22 U/L (17-59); Albumin 3.1 g/dl (3.5-5.0); Alkaline Phosphatase 147 U/L (38-126); Blood Urea Nitrogen 39 mg/dl (9-20); Calcium 8.5 mg/dl (8.4-10.2); Carbon Dioxide 27 mmol/L (22-30); Chloride 95 mmol/L (98-107); Estimated Creatinine Clearance 14 ml/min; Glucose 149 mg/dl (70-99); Potassium 4.1 mmol/L (3.5-5.1); Sodium 135 mmol/L (135-145); Total Bilirubin 0.5 mg/dl (0.2-1.3); Total Protein 6.7 g/dl (6.3-8.2); eGFR 10.52
[2023-10-29 12:50] LABS: INR 1.87; PT 21.7 Sec (11.4-14.6)
[2023-10-29 13:00] VITALS: BP 143/62
--- NOTE | 2023-10-29 13:07 | ED.GENMED ---
History of Present Illness
General
Chief Complaint: Swelling
Time Seen by Provider: 10/29/23 12:23
History of Present Illness
History of Present Illness:
58-year-old male with history of congestive heart failure and end-stage renal disease on dialysis presents to the emergency department for evaluation of abdominal distention and abdominal pain. Most recent dialysis was yesterday. He is concerned
that he will need a paracentesis performed. Denies fevers or chills. He is on warfarin, uncertain what his last dose was
Past History
Past History
ED Past Medical History: CAD, GERD, HTN, IDDM, Renal failure (End-stage renal disease), Psychiatric (Depression) and Other (Chronic low back pain, ambulatory dysfunction, anemia, pneumonia, pericardial effusion, pleural effusion, frequent falls,
neuropathy)
ED Past Surgical History: Other (Left arm AV graft)
Social History
Tobacco: Non-smoker
Employment: Disabled
Family History
Family History: Other (Noncontributory)
Review of Systems
Review of Systems
Allergies reviewed?: Yes
All Other Systems: ROS reviewed and negative except as documented in HPI and ROS
Phy Exam
Physical Exam
Physical Exam:
GEN: Well appearing, NAD, WDWN
HEENT: Oral mucosa moist, no scleral icterus
Cardiac: Regular rate
Lung: No respiratory distress, no tachypnea,, lungs clear to auscultation
Abdomen: Protuberant and distended abdomen, tender particular to the epigastrium
MSK: No gross deformity or injuries, hemodialysis fistula to left upper extremity
Skin: Good color, no pallor or jaundice, no rashes
Neuro: AO x3, moves all extremities freely
Psych: Calm, cooperative
Scores
Heart Failure Risk
Heart Failure Risk Score: Not Applicable
Course
Orders/Labs/Results
Orders:
Orders
10/29/23 12:06
CMP [Comprehensive Metabolic Panel] Urgent
Complete Blood Count/With Diff Urgent
PT/INR [Prothrombin Time] Urgent
10/29/23 13:01
Ammonia Urgent
10/29/23 13:35
IRAD CONSULT Urgent
Consulting Provider: Karlos Vasquez
Was physician already notified: Yes
Reason for Consult/Procedure: paracentesis
Acknowledgement that appropriate orders are entered: Yes
10/29/23 14:21
Body Fluid Cell Count Routine
What is the Body Fluid: peritoneal fluid
Date Specimen was Collected: 10/29/23
Time Specimen was Collected: 14:20
Fluid Culture with Gram Stain Routine
DEMETRIUS Source: Peritoneal Fluid
Specimen Description:
Date Specimen was Collected: 10/29/23
Time Specimen was Collected: 14:20
10/29/23 15:15
CefTRIAXone [Rocephin] 1,000 mg IV NOW STA
10/29/23 15:18
Albumin Human 5% 250 ml [Albumin 5%] 12.5 grams in 250 ml IV Q1H
Abnormal Lab Results
10/29/23 10/29/23
12:06 13:01
RBC 3.73 L 10^6/uL
(4.70-6.10)
Hgb 9.2 L g/dL
(13.0-18.0)
Hct 29.2 L %
(39.0-52.0)
MCV 78.3 L fL
(80.0-94.0)
MCH 24.7 L pg
(27.0-31.0)
MCHC 31.5 L g/dL
(33.0-37.0)
RDW 19.1 H %
(11.5-14.5)
Absolute Lymphs (auto) 0.7 L 10^3/uL
(1.2-3.4)
Absolute Monos (auto) 0.8 H 10^3/uL
(0.1-0.6)
Lymphocytes % 9.5 L %
(20.5-51.1)
Monocytes % 11.0 H %
(1.7-9.3)
Eosinophils % 6.2 H %
(0-6)
PT 21.7 H Sec
(11.4-14.6)
Chloride 95 L mmol/L
(98-107)
BUN 39 H mg/dl
(9-20)
Creatinine 5.8 H* mg/dL
(0.7-1.3)
Glucose 149 H mg/dl
(70-99)
Alkaline Phosphatase 147 H U/L
(38-126)
Ammonia < 9 L umol/L
(9-30)
Albumin 3.1 L g/dl
(3.5-5.0)
10/29/23 12:06
10/29/23 12:06
Vital Signs
Initial and Last Documented VS:
Initial Vital Signs
Temp Pulse Resp BP Pulse Ox
98.2 F 85 16 142/59 99
10/29/23 11:20 10/29/23 11:20 10/29/23 11:20 10/29/23 11:20 10/29/23 11:20
Last Documented Vital Signs
Temp Pulse Resp BP Pulse Ox
97.8 F 77 18 135/65 98
10/29/23 14:05 10/29/23 14:05 10/29/23 14:05 10/29/23 14:05 10/29/23 14:05
MDM/Problems Addressed
MDM/Problems Addressed:
Patient's labs are unremarkable, sent for IR paracentesis which yielded 4.6 L of fluid, cell counts consistent with elevated PMN count meeting criteria for SBP, will start IV antibiotics and initiate IV albumin, admit for further management
*Critical Care Note
Total Time (30-74mins, 75-104mins- exclusive of procedures): Not Applicable
ED Attending Note
-
Portions of this chart may have been created with voice recognition software.� Occasional wrong word or��sound alike� substitutions may have occurred due to the inherent limitations of voice recognition software.
Discharge Plan
Departure
Patient Disposition: Admit
Date of Disposition: 10/29/23
Time of Disposition: 15:25
Admit to: Med/Surg
Presentation/result/management discussed w/ accepting MD/DO: Hospitalist
Discharge Problem:
Spontaneous bacterial peritonitis
Prescriptions:
No Action
atorvastatin 80 mg Tablet
80 mg PO HS
icosapent ethyl [Vascepa] 1 gram Capsule
2 g PO BID
lidocaine-prilocaine 2.5-2.5 % Cream
1 applic TOPICAL MOWEFR PRN (Reason: port access)
Rx Instructions:
12/23/22 APPLY ONE HOUR PRIOR TO HD TO LEFT AVF
nifedipine 60 mg Tablet Extended Release
60 mg PO BID Qty: 0 0RF
sevelamer carbonate 800 mg tablet
1,600 mg PO MEALS
insulin aspart U-100 [Novolog FlexPen U-100 Insulin] 100 unit/mL (3 mL) insulin pen
1 sliding scale dose SC AC
bumetanide 2 mg tablet
4 mg PO SUTUTHSA
sertraline 100 mg tablet
100 mg PO DAILY
losartan 100 mg tablet
50 mg PO BID
Dialyvite 100-1 mg tablet
1 tab PO QPM
insulin degludec [Tresiba U-100 Insulin] 100 unit/mL solution
6 unit SC HS
pantoprazole [Protonix] 40 mg tablet,delayed release (DR/EC)
40 mg PO BID
gabapentin 100 mg capsule
100 mg PO HS
spironolactone 25 mg Tablet
25 mg PO DAILY Qty: 30 0RF
warfarin 3 mg Tablet
3 mg PO QPM
Visbiome 112.5 billion cell Capsule
1 cap PO DAILY
acetaminophen [Tylenol Extra Strength] 500 mg tablet
1,000 mg PO TID PRN (Reason: mild pain)
oxycodone-acetaminophen 5-325 mg tablet
1 tab PO Q8HPRN PRN (Reason: moderate pain)
clonidine HCl 0.2 mg tablet
0.2 mg PO TID
hydralazine 100 mg tablet
100 mg PO TID
Referrals:
Elizabeth Velasquez DO [Family Provider] -
Interventions
Interventions:
*Risk Screen - Suicide Last Done: 10/29/23 11:20
*General Assessment Last Done: 10/29/23 11:59
*Neglect/Abuse Screening Last Done: 10/29/23 11:20
ED- Fall Risk Assessment Last Done: 10/29/23 11:59
*ED COVID-19 Vaccine History Last Done: 10/29/23 12:03
ED- Cardiac Assessment Last Done: 10/29/23 11:59
ED- Pulmonary Assessment Last Done: 10/29/23 11:59
ED-Skin Assessment Last Done: 10/29/23 11:59
Discharge Date and Time
Print Language: [place]
[2023-10-29 13:24] LABS: Ammonia < 9 umol/L (9-30)
--- NOTE | 2023-10-29 13:24 | PHANOTE ---
Addendum entered by Raiza Polo 10/29/23 13:26:
wrong patient please disregard note
Original Note:
med rec note- patient brought into crisis after veen found naked and confused. unable to talk to patient at this time. crisis team was able to print out medication list from there office record plus i have pharmacy records to compare. patient last
ecw visit 10/19/23 and patient amended on not talking his bp or starting new blood sugar medication for 2 months
--- NOTE | 2023-10-29 13:37 | PHANOTE ---
med rec note- calling rehab center at [phone] patient was sent with paperwork but it is not his and the birthday and name do not match what the patient is saying. unable to get someone on the phone
[2023-10-29 14:05] VITALS: BP 135/65; BP_SYST 77
[2023-10-29 14:38] LABS: Body Fluid Mononuclear 65.5 %; Body Fluid Polymorphonuclear 34.5 %; Body Fluid WBC 736 /CUMM
[2023-10-29 14:42] LABS: Body Fluid Second Tech AMA
[2023-10-29] MEDS: ROCEPHIN 1000 MG IV (15:26)
--- NOTE | 2023-10-29 15:38 | W.CON.NEPH ---
Consultation
-
Date/Time Consultation Requested: 10/29/2023 3:15 PM
Date/Time Consultation Performed: 10/29/2023 3:30 PM
Requesting Provider: Dr. Grigsby
Performing Provider: Dr. Mendes
Reason for Consultation: End-stage renal disease
Medical History
-
Chief Complaint: End-stage renal disease
History of Present Illness:
Mr. King is a 58YOM with PMH of ESRD on hemodialysis for 5yr (MWF at [facility]) now at a rehab in [place].HFpEF, pleural effusions previous thoracentesis, on chronic diuretics with bumex. He has a history of diabetes on insulin
therapy. He is maintained on sevelamer for his hyperphosphatemia HTN on hydralazine, Procardia and clonidine, coronary artery disease, paroxysmal atrial fibrillation on Coumadin, anemia of chronic disease, , spinal stenosis presenting with with
increased ascites. He underwent 4 L paracentesis today and is going to be admitted for possible spontaneous peritonitis. We were consulted for his end-stage renal disease management.
Past Medical History
1. ESRD x5 years presumed due to diabetic nephropathy.
2. Chronic pain.
3. Chronic back pain.
4. Atrial fibrillation on Coumadin.
5. Chronic anemia.
6. History of thoracentesis.
7. History of pericardiocentesis at outside hospital back in fall
of 2022.
8. Elevated HEYDI with subsequent negative testing.
9. Peripheral neuropathy.
10. History of left upper extremity radiocephalic AV fistula.
11. History of hypertension on multi-drug regimen.
12. History of coronary artery disease.
13. History of peripheral eosinophilia.
14. Hyperphosphatemia.
Past Medical History: Other
Past Surgical History: Other (Left arm AVG)
Social History
Tobacco: Former Smoker
Alcohol: Former
Drug: None
Family History
Family History: Not Pertinent
Allergies / Home Medications
Allergy/AdvReac Type Severity Reaction Status Date / Time
morphine Allergy Unknown Verified 10/29/23 11:23
�Medication �Instructions �Recorded �Confirmed �Type
atorvastatin 80 mg tablet 80 mg PO HS High Cholesterol 12/23/22 10/29/23 History
icosapent ethyl 1 gram capsule 2 g PO BID High Cholesterol 12/23/22 10/29/23 History
(Vascepa)
lidocaine-prilocaine 2.5 %-2.5 % 1 applic topical MOWEFR PRN port 12/23/22 09/09/23 History
topical cream access
nifedipine 60 mg tablet,extended 60 mg PO BID Blood Pressure #0 tabs 02/13/23 10/29/23 Rx
release
insulin aspart U-100 100 unit/mL 1 sliding scale dose SC AC diabetes 03/30/23 09/09/23 History
(3 mL) subcutaneous pen (Novolog
FlexPen U-100 Insulin aspart)
sevelamer carbonate 800 mg tablet 1,600 mg PO MEALS Kidney Disease 03/30/23 10/29/23 History
bumetanide 2 mg tablet 4 mg PO SUTUTHSA Fluid 07/29/23 10/29/23 History
Retention/Swelling
insulin degludec 100 unit/mL 6 unit SC HS Diabetes 07/29/23 09/09/23 History
subcutaneous solution (Tresiba
U-100 Insulin)
losartan 100 mg tablet 50 mg PO BID Blood Pressure 07/29/23 10/29/23 History
sertraline 100 mg tablet 100 mg PO DAILY Mental Health 07/29/23 10/29/23 History
vitamin B complex-vitamin C 100 1 tab PO QPM Supplement 07/29/23 10/29/23 History
mg-folic acid 1 mg tablet
(Dialyvite)
gabapentin 100 mg capsule 100 mg PO HS Pain 09/09/23 10/29/23 History
pantoprazole 40 mg tablet,delayed 40 mg PO BID Gastrointestinal Issue 09/09/23 10/29/23 History
release (Protonix)
spironolactone 25 mg tablet 25 mg PO DAILY Blood pressure #30 09/16/23 Rx
tabs
Lactobac no.2-Bifidobac no.1-S. 1 cap PO DAILY 10/29/23 10/29/23 History
thermo 112.5 billion cell capsule
(Visbiome)
acetaminophen 500 mg tablet 1,000 mg PO TID PRN mild pain 10/29/23 10/29/23 History
(Tylenol Extra Strength)
clonidine HCl 0.2 mg tablet 0.2 mg PO TID Blood pressure 10/29/23 10/29/23 History
hydralazine 100 mg tablet 100 mg PO TID Blood Pressure 10/29/23 10/29/23 History
oxycodone-acetaminophen 5 mg-325 1 tab PO Q8HPRN PRN moderate pain 10/29/23 10/29/23 History
mg tablet
warfarin 3 mg tablet 3 mg PO QPM 10/29/23 10/29/23 History
Review of Systems
-
All other systems: Negative unless noted
Constitutional: Weight Gain and Fatigue
EENT: No Symptoms
Respiratory: No Symptoms
Cardiac: No Symptoms
Abdomen/GI: Other (Ascites but no nominal pain)
: No Symptoms and Other (Baseline decreased urine output)
Musculoskeletal: No Symptoms
Skin: No Symptoms
Endocrine: No Symptoms
Physical Exam
Vital Signs
Vital Signs
Temp Pulse Resp BP Pulse Ox
97.8 F 77 18 135/65 98
10/29/23 14:05 10/29/23 14:05 10/29/23 14:05 10/29/23 14:05 10/29/23 14:05
Lab Results
10/29/23 12:06
10/29/23 12:06
WBC 7.4 10^3/uL (4.8-10.8) 10/29/23 12:06
RBC 3.73 10^6/uL (4.70-6.10) L 10/29/23 12:06
Hgb 9.2 g/dL (13.0-18.0) L 10/29/23 12:06
Hct 29.2 % (39.0-52.0) L 10/29/23 12:06
Plt Count 335 10^3/uL (130-400) 10/29/23 12:06
Sodium 135 mmol/L (135-145) 10/29/23 12:06
Potassium 4.1 mmol/L (3.5-5.1) 10/29/23 12:06
Chloride 95 mmol/L (98-107) L 10/29/23 12:06
Carbon Dioxide 27 mmol/L (22-30) 10/29/23 12:06
BUN 39 mg/dl (9-20) H 10/29/23 12:06
Creatinine 5.8 mg/dL (0.7-1.3) H* 10/29/23 12:06
eGFR 10.52 10/29/23 12:06
Glucose 149 mg/dl (70-99) H 10/29/23 12:06
Calcium 8.5 mg/dl (8.4-10.2) 10/29/23 12:06
Albumin 3.1 g/dl (3.5-5.0) L 10/29/23 12:06
Physical Exam
General: AOx3, Nontoxic , NAD
HEENT: PERRL, EOMI, Anicteric, Conjunctivae Clear, Ear/Nose Intact, Hearing Normal, Oropharynx Clear/Moist, Dentition Intact, Facial Symmetry, Neck Supple, Neck: Trachea Midline, No JVD and No Thyromegaly, no Bruits
Respiratory: Clear to auscultation bilaterally with normal lung exersion
Cardiac: S1/S2 and Regular Rate/Rhythm
Breast: Deferred by me
Abdomen: Soft, Nontender, Nondistended, Normal Bowel Sounds and No Hepatosplenomegaly
Rectal: Deferred by Provider
Genito-urinary: No Costovertebral Tenderness
Extremities: No Clubbing, No Cyanosis and No Edema
Skin: No Rash or open lesions
Neuro: Nonfocal/Grossly Intact, CN II-XII (Intact) and Strength (Musculoskeletal exam 5 out of 5 both upper and lower extremities)
Hematologic/Lymphatic: No Cervical Lymphadenopathy, No Submandibular Lymphadenopathy and No Supraclavicular Lymphadenopathy
Psych: Mood/afflect pleasant, Insight/judgement good and Appropriate
Vascular: plus 1 pedal and radial pulses
Vascular Access: AVF (Left upper extremity good thrill and bruit noted aneurysmal dilatation)
Data Reviewed
-
Labs: Labs Reviewed by me (CBC BMP reviewed)
Old Records: Reviewed (Reviewed previous consultation from Sep 10 2023)
Assessment/Plan
-
Impression:
S/P paracentesis for 4 L artery ascites
Possible spontaneous peritonitis admission
Anemia
ESRD presumed DM nephropathy-on hemodialysis M, W, F, [facility]
Chronic HFpEF
History of bilateral pleural effusions status post thoracentesis
History of pericardial effusion status post pericardiocentesis
Coronary artery disease
Paroxysmal atrial fibrillation
Essential hypertension
DM with multiple microvascular complications
Hyperlipidemia
Spinal stenosis
Migraine history
History of C. difficile
Anxiety/depression
L radial AVF
Severe lumbar spinal stenosis at multiple levels
Chronic low back pain with ambulatory dysfunction
Hyperphosphatemia
Plan:
-Will adjust albumin infusion post paracentesis to 50 g with assistance from pharmacy (re risk for hypotension due to ECV depletion)
-Tomorrow orders provided
-JAIME therapy will be provided for anemia
-Can maintain outpatient antihypertensive medications to start tomorrow re: hx of htn
-Phosphate binders will be continued with meals in regards to phosphatemia
-Rocephin provided for possible spontaneous peritonitis, no need to renally adjust at this time
-No acute dialysis requirement tonight
[2023-10-29] MEDS: FLEXBUMIN 100 IV ×2 (16:22→18:03)
[2023-10-29 16:30] LABS: Body Fluid Albumin 1.6 g/dl; Body Fluid LDH 106 U/L; Body Fluid Protein 3.6 g/dl
--- NOTE | 2023-10-29 16:33 | HPS.HSE ---
Family Physician
-
Family Physician: Elizabeth Velasquez, DO
Chief Complaint
-
Abdominal pain, shortness of breath
History of Present Illness
58-year-old male with ESRD here complaining of abdominal distention, pain, shortness of breath. He feels as though he needs a paracentesis. Denies history of cirrhosis.
Had a paracentesis done on September 17 prior to discharge from our hospital. Was hospitalized from September 09 to September 17. Originally admitted for generalized weakness and ambulatory dysfunction. Has a history of bilateral pleural effusions requiring
thoracentesis. History of pericardial effusion requiring pericardiocentesis.
After discharge, was transferred to [facility] and has been there since.
Medical History
Past Medical History
Past Medical History: Reports Other
Additional Past Medical History:
ESRD requiring dialysis
CAD
Paroxysmal atrial fibrillation
DM2
Essential hypertension
Hyperlipidemia
Chronic heart failure preserved EF
PAD
Anxiety/depression
Spinal stenosis
Migraine headaches
Pericardial effusion
Pleural effusions
Past Surgical History: Reports Other
Additional Past Surgical History:
Left arm AV graft
Social History
Tobacco: Former Smoker
Alcohol: Former
Drug: None
Living: With Family
Family History
Family History: Not pertinent
Allergies / Home Medications
Allergies reflects when Allergies were last updated in [facility].
Home Medications with original date entered in [facility]
Allergy/Medication List:
Allergies
Allergy/AdvReac Type Severity Reaction Status Date / Time
morphine Allergy Unknown Verified 10/29/23 11:23
Home Medications
atorvastatin 80 mg tablet 80 mg PO HS High Cholesterol 12/23/22
icosapent ethyl 1 gram capsule (Vascepa) 2 g PO BID High Cholesterol 12/23/22
lidocaine-prilocaine 2.5 %-2.5 % topical cream 1 applic topical MOWEFR PRN port access 12/23/22
nifedipine 60 mg tablet,extended release 60 mg PO BID Blood Pressure #0 tabs 02/13/23
insulin aspart U-100 100 unit/mL (3 mL) subcutaneous pen (Novolog FlexPen U-100 Insulin aspart) 1 sliding scale dose SC AC diabetes 03/30/23
sevelamer carbonate 800 mg tablet 1,600 mg PO MEALS Kidney Disease 03/30/23
bumetanide 2 mg tablet 4 mg PO SUTUTHSA Fluid Retention/Swelling 07/29/23
insulin degludec 100 unit/mL subcutaneous solution (Tresiba U-100 Insulin) 6 unit SC HS Diabetes 07/29/23
losartan 100 mg tablet 50 mg PO BID Blood Pressure 07/29/23
sertraline 100 mg tablet 100 mg PO DAILY Mental Health 07/29/23
vitamin B complex-vitamin C 100 mg-folic acid 1 mg tablet (Dialyvite) 1 tab PO QPM Supplement 07/29/23
gabapentin 100 mg capsule 100 mg PO HS Pain 09/09/23
pantoprazole 40 mg tablet,delayed release (Protonix) 40 mg PO BID Gastrointestinal Issue 09/09/23
spironolactone 25 mg tablet 25 mg PO DAILY Blood pressure #30 tabs 09/16/23
Lactobac no.2-Bifidobac no.1-S. thermo 112.5 billion cell capsule (Visbiome) 1 cap PO DAILY 10/29/23
acetaminophen 500 mg tablet (Tylenol Extra Strength) 1,000 mg PO TID PRN mild pain 10/29/23
clonidine HCl 0.2 mg tablet 0.2 mg PO TID Blood pressure 10/29/23
hydralazine 100 mg tablet 100 mg PO TID Blood Pressure 10/29/23
oxycodone-acetaminophen 5 mg-325 mg tablet 1 tab PO Q8HPRN PRN moderate pain 10/29/23
warfarin 3 mg tablet 3 mg PO QPM 10/29/23
Review of Systems
-
History Source: Patient
A 12 point ROS was completed and negative except as noted: Yes
Abdomen/GI: Reports Abdominal Pain
Physical Exam
Vital Signs
Vital Signs
Temp Pulse Resp BP Pulse Ox
97.8 F 77 18 135/65 98
10/29/23 14:05 10/29/23 14:05 10/29/23 14:05 10/29/23 14:05 10/29/23 14:05
Physical Exam
General: Well Developed, Well Nourished, No Apparent Distress and Comfortable
HEENT: NormoCephalic, Anicteric and Moist mucous membranes
Respiratory: Clear
Cardiac: S1/S2 and Regular Rhythm
GI: Soft, Tender and Other (Positive fluid wave)
Genito-urinary: Deferred by me
Musculoskeletal: No Clubbing, No Cyanosis, Edema, Left Lower Extremity and Edema, Right Lower Extremity
Skin: Warm, Dry and Other (Left upper extremity AV graft)
Neuro: AO x 3
Hematologic/Lymphatic: No Lymphadenopathy
Psych: Calm
Laboratory Results
-
10/29/23 12:06
10/29/23 12:06
Laboratory Results
PT 21.7 Sec (11.4-14.6) H 10/29/23 12:06
INR 1.87 10/29/23 12:06
Total Bilirubin 0.5 mg/dl (0.2-1.3) 10/29/23 12:06
AST 22 U/L (17-59) 10/29/23 12:06
ALT < 10 U/L (0-50) 10/29/23 12:06
Alkaline Phosphatase 147 U/L (38-126) H 10/29/23 12:06
Impression/Plan
-
Spontaneous bacterial peritonitis -no known history of cirrhosis. Admit to MedSurg. Continue IV antibiotics. IV albumin.
Recurrent ascites -paracentesis completed today by IR, 4.6 L removed. Rule out underlying cirrhosis. Will need outpatient GI follow-up.
ESRD -on dialysis Thursday. Consult nephrology. Patient appears to be volume overloaded. Weight is up 4 kg since discharge. Continue bumetanide.
Chronic anemia -likely due to ESRD. Hemoglobin appears to be at baseline.
Recurrent transudative pleural effusions -possibly due to chronic renal failure, hypoalbuminemia, chronic heart failure.
Essential hypertension -stable.
DM2 without hyperglycemia -he is on Tresiba 6 units at bedtime, NovoLog insulin scale. Use low resistance scale for now.
Hyperlipidemia
CAD -stable. Hx 2 stents in 2016.
Paroxysmal atrial fibrillation -on chronic warfarin. INR subtherapeutic. Potential for elevated INR with initiation of antibiotics.
Chronic heart failure preserved EF
PAD -hx femoral-pop bypass.
Hx HBV infection -treated as per patient.
Spinal stenosis -with chronic pain syndrome, chronic opiate dependence.
Ambulatory dysfunction -consult PT/OT.
Full code
[2023-10-29 18:02] LABS: Glucose - Point of Care 167 mg/dl (70-99)
[2023-10-29 18:04] VITALS: BP 132/55; BMI 26.7
[2023-10-29] MEDS: RENVELA 1600 MG PO (18:18)
[2023-10-29] MEDS: NEPHROCAP 1 CAPSULE PO (18:18)
[2023-10-29] MEDS: COUMADIN 3 MG PO (18:18)
[2023-10-29] MEDS: BUMEX 4 MG PO (18:24)
[2023-10-29 19:10] VITALS: BMI 26.7
[2023-10-29] MEDS: PROTONIX 40 MG PO (20:03)
[2023-10-29] MEDS: COZAAR 50 MG PO (20:03)
[2023-10-29] MEDS: PROCARDIA XL (EXTENDED RELEASE) 60 MG PO (20:03)
[2023-10-29 21:57] LABS: Glucose - Point of Care 222 mg/dl (70-99)
[2023-10-29] MEDS: CATAPRES 0.2 MG PO (23:03)
[2023-10-29] MEDS: LIPITOR 80 MG PO (23:03)
[2023-10-29] MEDS: NEURONTIN 100 MG PO (23:03)
[2023-10-29 23:40] VITALS: BP 153/67
[2023-10-30 06:15] VITALS: BMI 26.2
[2023-10-30 07:15] VITALS: BP 153/63
[2023-10-30 07:15] LABS: Glucose - Point of Care 160 mg/dl (70-99)
[2023-10-30] MEDS: VISBIOME 1 CAP PO (07:35)
[2023-10-30] MEDS: ZOLOFT 100 MG PO (07:35)
[2023-10-30] MEDS: RENVELA 1600 MG PO ×3 (07:35→16:54)
[2023-10-30] MEDS: PROTONIX 40 MG PO ×2 (07:35→21:46)
[2023-10-30 07:53] LABS: INR 2.39
[2023-10-30] MEDS: NOVOLOG FLEXPEN-LOW RESISTANCE 1 UNITS SC (07:59)
[2023-10-30 08:03] LABS: % Basophils 0.9 % (0-2); % Immature Granulocytes 0.3 % (0-0.5); % Lymphocytes 9.5 % (20.5-51.1); % Monocytes 10.3 % (1.7-9.3); Absolute Basophils 0.1 10^3/uL (0-0.2); Absolute Eosinophils 0.4 10^3/uL (0-0.7); Absolute Lymphocytes 0.6 10^3/uL (1.2-3.4); Absolute Monocytes 0.7 10^3/uL (0.1-0.6); Absolute Neutrophils 4.8 10^3/uL (1.4-6.5); Hemoglobin 9.1 g/dL (13.0-18.0); Mean Corp Hgb Conc. 31.4 g/dL (33.0-37.0); Mean Corpuscular Hgb 24.8 pg (27.0-31.0); Mean Platelet Volume 9.3 fL (7.4-10.4); Nucleated Red Blood Cells % 0 % (-); Platelet Count 288 10^3/uL (130-400); Red Blood Cell Count 3.67 10^6/uL (4.70-6.10); Red Cell Dist. Width 18.9 % (11.5-14.5); White Blood Cell Count 6.5 10^3/uL (4.8-10.8)
[2023-10-30 08:23] LABS: ALT (SGPT) < 10 U/L (0-50); AST (SGOT) 17 U/L (17-59); Alkaline Phosphatase 110 U/L (38-126); Blood Urea Nitrogen 44 mg/dl (9-20); Calcium 8.5 mg/dl (8.4-10.2); Carbon Dioxide 26 mmol/L (22-30); Chloride 96 mmol/L (98-107); Estimated Creatinine Clearance 11 ml/min; Glucose 149 mg/dl (70-99); Potassium 4.5 mmol/L (3.5-5.1); Sodium 133 mmol/L (135-145); Total Bilirubin 0.6 mg/dl (0.2-1.3); Total Protein 6.1 g/dl (6.3-8.2)
[2023-10-30] MEDS: COZAAR 50 MG PO ×2 (09:32→23:37)
[2023-10-30] MEDS: PROCARDIA XL (EXTENDED RELEASE) 60 MG PO ×2 (09:32→21:52)
[2023-10-30] MEDS: CATAPRES 0.2 MG PO ×2 (09:32→23:37)
[2023-10-30 09:59] LABS: Glycohemoglobin (HgbA1c) 5.6 % (4.0-5.6)
[2023-10-30 10:28] VITALS: BP 156/66; PULSE 80
[2023-10-30 11:48] LABS: Glucose - Point of Care 216 mg/dl (70-99)
[2023-10-30] MEDS: NOVOLOG FLEXPEN-LOW RESISTANCE 2 UNITS SC (11:52)
--- NOTE | 2023-10-30 12:29 | CM ---
Addendum entered by Sindhu Deluca 10/30/23 15:04:
WC Van transport $115, patient agreeable to cost when stable for d/c.
Addendum entered by Sindhu Deluca 10/30/23 12:55:
Patient seen bedside.
patient lives with his cousin in a split level home, 8 steps to enter.
Patient reports having two walkers at home.
Patient had [facility] in the past.
Patient was admitted from [facility] and wishes to return.
Patient on HD M-W-F @ [facility].
PCP Rosemarie Paige
Pharmacy [facility]
TC to aretha August for transport to see if a WC van will be available for tomorrow. patient with no other means of transportation. also requested costs.
Original Note:
Patient for transfer back to [facility] tomorrow.
Updates via [facility]
report#[phone]
--- NOTE | 2023-10-30 12:58 | W.PN.HOSP.TC ---
Today's Communication/Plan
-
Continue antibiotics
Dialysis today
Assessment / Plan
Assessment / Plan
Gen-AAOx3, NAD
HEENT-NC, AT, anicteric, clear oral mm
Neck-supple
CV-reg, no M, +S1/S2
Lungs-clear B/L
Abd-soft, NT, ND
Ext-no edema
Musculoskeletal-no cyanosis, clubbing
Skin-warm and dry
Neuro-grossly non-focal
Psych-calm, cooperative
Spontaneous bacterial peritonitis -no known history of cirrhosis. Fluid culture negative so far, Gram stain shows WBCs but no organisms. Continue IV antibiotics for now.
Recurrent ascites -paracentesis completed today by IR, 4.6 L removed. Rule out underlying cirrhosis. Will need outpatient GI follow-up.
ESRD -on dialysis Thursday. Consult nephrology. Patient appears to be volume overloaded. Continue bumetanide. Weight today is 83.9 kg, discharge weight on September 17 was 90.2 kg.
Chronic anemia -likely due to ESRD. Hemoglobin appears to be at baseline.
Recurrent transudative pleural effusions -possibly due to chronic renal failure, hypoalbuminemia, chronic heart failure.
Essential hypertension -stable.
DM2 without hyperglycemia -he is on Tresiba 6 units at bedtime, NovoLog insulin scale. Use low resistance scale for now. Glucose 149 this morning.
Hyperlipidemia
CAD -stable. Hx 2 stents in 2015.
Paroxysmal atrial fibrillation -on chronic warfarin. INR 2.39 today.
Chronic heart failure preserved EF
PAD -hx femoral-pop bypass.
Hx HBV infection -treated as per patient.
Spinal stenosis -with chronic pain syndrome, chronic opiate dependence.
Ambulatory dysfunction -consult PT/OT.
Full code
Dispo - back to SNF likely tomorrow. Discussed with patient and case management.
Anticipated Discharge: Within 24 hours
Subjective/Interval History
-
Date of Service: October 30, 2023
Patient seen and examined. Feeling better. No complaints.
Objective Data
-
Labs:
Laboratory Results
10/30/23
07:06
WBC 6.5
Hgb 9.1 L
Hct 29.0 L
Plt Count 288
PT 26.0 H
INR 2.39
Sodium 133 L
Potassium 4.5
Chloride 96 L
Carbon Dioxide 26
BUN 44 H
Creatinine 7.6 H*
Glucose 149 H
Calcium 8.5
Total Bilirubin 0.6
AST 17
ALT < 10
Alkaline Phosphatase 110
Vital Signs:
Vital Signs
Temp Pulse Resp BP Pulse Ox
98.3 F 83 16 153/63 96
10/30/23 07:15 10/30/23 07:15 10/30/23 07:15 10/30/23 09:32 10/30/23 07:15
I&O
10/29/23 10/30/23 10/31/23
06:59 06:59 06:59
Output Total 20 / 20
Balance -20 / -20
Review of Systems
-
History Source: Patient
All other systems: Reviewed and negative
[2023-10-30 15:00] VITALS: BP 133/50; PULSE 68; O2SAT 100
[2023-10-30 15:15] VITALS: BP 170/74
[2023-10-30] MEDS: CATAPRES PO (16:39)
[2023-10-30 16:47] LABS: Glucose - Point of Care 107 mg/dl (70-99)
[2023-10-30] MEDS: NOVOLOG FLEXPEN-LOW RESISTANCE SC (16:47)
[2023-10-30] MEDS: ROCEPHIN 2000 MG IV (16:49)
[2023-10-30] MEDS: STERILE WATER FOR INJECTION 20 ML IV (16:50)
[2023-10-30 16:53] VITALS: BMI 26.2
--- NOTE | 2023-10-30 17:05 | W.PN.NEPH.HD ---
Assessment
-
Seen on HD. no new complaints. VSS, access ok
Progress Note - Hemodialysis
-
Date of Service: October 30, 2023
Duration: 30 minutes and 3 hours
Potassium Bath: 2
Calcium Bath: 2.5
Opti-Dialyzer: 160
Ultrafiltration: Other (3kg)
Blood Flow: 400
Dialysate Flow: 600
Heparin: no
EPO: 30181 units
[2023-10-30] MEDS: RETACRIT 10000 UNITS IV (17:25)
[2023-10-30 21:29] LABS: Glucose - Point of Care 128 mg/dl (70-99)
[2023-10-30] MEDS: LIPITOR 80 MG PO (21:46)
[2023-10-30] MEDS: COUMADIN 3 MG PO (21:46)
[2023-10-30] MEDS: NEPHROCAP 1 CAPSULE PO (21:47)
[2023-10-30] MEDS: NEURONTIN 100 MG PO (21:47)
[2023-10-30] MEDS: PERCOCET 5/325 1 TABLET PO (21:55)
[2023-10-30 23:17] VITALS: BP 152/67
[2023-10-31 06:00] VITALS: BMI 26.1
[2023-10-31 07:46] VITALS: BP 159/72
[2023-10-31 08:04] LABS: Glucose - Point of Care 151 mg/dl (70-99)
[2023-10-31 08:08] LABS: INR 2.34; PT 25.5 Sec (11.4-14.6)
[2023-10-31] MEDS: BUMEX 4 MG PO (08:34)
[2023-10-31] MEDS: RENVELA 1600 MG PO ×2 (08:35→11:23)
[2023-10-31] MEDS: CATAPRES 0.2 MG PO (08:35)
[2023-10-31] MEDS: ZOLOFT 100 MG PO (08:35)
[2023-10-31] MEDS: PROTONIX 40 MG PO (08:35)
[2023-10-31] MEDS: COZAAR 50 MG PO (08:35)
[2023-10-31] MEDS: VISBIOME 1 CAP PO (08:35)
[2023-10-31] MEDS: NOVOLOG FLEXPEN-LOW RESISTANCE 1 UNITS SC (08:35)
[2023-10-31] MEDS: PROCARDIA XL (EXTENDED RELEASE) 60 MG PO (08:35)
--- NOTE | 2023-10-31 10:01 | W.PN.NEPH.PH ---
Today's Communication / Plan
-
HD thursday
Assessment/Plan
-
Impression:
S/P paracentesis for 4 L artery ascites
Possible spontaneous peritonitis admission
Anemia
ESRD presumed DM nephropathy-on hemodialysis M, W, F, [facility]
Chronic HFpEF
History of bilateral pleural effusions status post thoracentesis
History of pericardial effusion status post pericardiocentesis
Coronary artery disease
Paroxysmal atrial fibrillation
Essential hypertension
DM with multiple microvascular complications
Hyperlipidemia
Spinal stenosis
Migraine history
History of C. difficile
Anxiety/depression
L radial AVF
Severe lumbar spinal stenosis at multiple levels
Chronic low back pain with ambulatory dysfunction
Hyperphosphatemia
Plan:
HD thursday
dc planning
abx plan
-
-
Date of Service: October 31, 2023
CC / HPI / ROS
-
Chief Complaint:
ESRD
History of Present Illness:
BP stable
tolerated HD yesterday
on abx for SBP
Review of Systems:
no CP/SOB
Labs
-
Labs:
WBC 6.5 10^3/uL (4.8-10.8) 10/30/23 07:06
RBC 3.67 10^6/uL (4.70-6.10) L 10/30/23 07:06
Hgb 9.1 g/dL (13.0-18.0) L 10/30/23 07:06
Hct 29.0 % (39.0-52.0) L 10/30/23 07:06
Plt Count 288 10^3/uL (130-400) 10/30/23 07:06
Sodium 133 mmol/L (135-145) L 10/30/23 07:06
Potassium 4.5 mmol/L (3.5-5.1) 10/30/23 07:06
Chloride 96 mmol/L (98-107) L 10/30/23 07:06
Carbon Dioxide 26 mmol/L (22-30) 10/30/23 07:06
BUN 44 mg/dl (9-20) H 10/30/23 07:06
Creatinine 7.6 mg/dL (0.7-1.3) H* 10/30/23 07:06
eGFR 7.60 10/30/23 07:06
Glucose 149 mg/dl (70-99) H 10/30/23 07:06
Calcium 8.5 mg/dl (8.4-10.2) 10/30/23 07:06
Albumin 3.0 g/dl (3.5-5.0) L 10/30/23 07:06
Physical Exam
-
Vital Signs:
Vital Signs
Temp Pulse Resp BP Pulse Ox
98.0 F 94 16 159/72 95
10/31/23 07:46 10/31/23 08:35 10/31/23 07:46 10/31/23 08:35 10/31/23 07:46
Cardiovascular:: Regular rate and rhythm
Respiratory:: Bilateral: CTA
Lung Excursion:: Normal
Abdomen:: Nontender and Soft
Bowel Sounds:: Normal
Extremity Edema:: +1: Bilateral:
--- NOTE | 2023-10-31 10:04 | W.PN.HOSP.TC ---
Today's Communication/Plan
-
Discharge
Assessment / Plan
Assessment / Plan
Gen-AAOx3, NAD
HEENT-NC, AT, anicteric, clear oral mm
Neck-supple
CV-reg, no M, +S1/S2
Lungs-clear B/L
Abd-soft, NT, ND
Ext-no edema
Musculoskeletal-no cyanosis, clubbing
Skin-warm and dry
Neuro-grossly non-focal
Psych-calm, cooperative
Spontaneous bacterial peritonitis -no known history of cirrhosis. Fluid culture negative so far, Gram stain shows WBCs but no organisms. Will change to cefpodoxime 200 mg at bedtime on discharge. Complete 5 days of antibiotics.
Recurrent ascites -paracentesis completed today by IR, 4.6 L removed. Rule out underlying cirrhosis. Will need outpatient GI follow-up. Discussed with patient.
ESRD -on dialysis Thursday. Nephrology following. Patient appears to be volume overloaded. Continue bumetanide. Weight today is 83.9 kg, discharge weight on September 17 was 90.2 kg.
Chronic anemia -likely due to ESRD. Hemoglobin appears to be at baseline.
Recurrent transudative pleural effusions -possibly due to chronic renal failure, hypoalbuminemia, chronic heart failure.
Essential hypertension -stable.
DM2 without hyperglycemia -he is on Tresiba 6 units at bedtime, NovoLog insulin scale. Use low resistance scale for now. Glucose 151 this morning.
Hyperlipidemia
CAD -stable. Hx 2 stents in 2016.
Paroxysmal atrial fibrillation -on chronic warfarin. INR 2.34 today.
Chronic heart failure preserved EF
PAD -hx femoral-pop bypass.
Hx HBV infection -treated as per patient.
Spinal stenosis -with chronic pain syndrome, chronic opiate dependence.
Ambulatory dysfunction -consult PT/OT.
Full code
Dispo -stable for discharge to SNF. Case management aware.
32 minutes spent in discharge process.
Anticipated Discharge: Today
Subjective/Interval History
-
Date of Service: October 31, 2023
Patient seen and examined. No complaints.
Objective Data
-
Labs:
Laboratory Results
10/31/23
07:15
PT 25.5 H
INR 2.34
Vital Signs:
Vital Signs
Temp Pulse Resp BP Pulse Ox
98.0 F 94 16 159/72 95
10/31/23 07:46 10/31/23 08:35 10/31/23 07:46 10/31/23 08:35 10/31/23 07:46
I&O
10/30/23 10/31/23 11/01/23
06:59 06:59 06:59
Intake Total 480 / 480
Output Total 20 / 20
Balance -20 / -20 480 / 480
Review of Systems
-
History Source: Patient
All other systems: Reviewed and negative
--- NOTE | 2023-10-31 10:11 | W.DS.TRANS ---
DC Summary - [facility]idential Aide
-
Discharge Instructions:
Sleep Apnea Risk Intermediate
Discharge Diagnosis/Procedures Spontaneous bacterial peritonitis
Diet 2 Gram Sodium,Other diet
Additional Diets 2 g potassium, 40 ounce fluid restriction
Activity As tolerated
Driving Restrictions As prior to admission
Bathing Restrictions None
Instructions:
Stand-Alone Forms:
Changes to Home Medications: No
Discharge Medications:
DC Medications w/original date entered in [facility]
atorvastatin 80 mg tablet 80 mg PO HS High Cholesterol 12/23/22
icosapent ethyl 1 gram capsule (Vascepa) 2 g PO BID High Cholesterol 12/23/22
lidocaine-prilocaine 2.5 %-2.5 % topical cream 1 applic topical MOWEFR PRN port access 12/23/22
nifedipine 60 mg tablet,extended release 60 mg PO BID Blood Pressure #0 tabs 02/13/23
insulin aspart U-100 100 unit/mL (3 mL) subcutaneous pen (Novolog FlexPen U-100 Insulin aspart) 1 sliding scale dose SC AC diabetes 03/30/23
sevelamer carbonate 800 mg tablet 1,600 mg PO MEALS Kidney Disease 03/30/23
bumetanide 2 mg tablet 4 mg PO SUTUTHSA Fluid Retention/Swelling 07/29/23
insulin degludec 100 unit/mL subcutaneous solution (Tresiba U-100 Insulin) 6 unit SC HS Diabetes 07/29/23
losartan 100 mg tablet 50 mg PO BID Blood Pressure 07/29/23
sertraline 100 mg tablet 100 mg PO DAILY Mental Health 07/29/23
vitamin B complex-vitamin C 100 mg-folic acid 1 mg tablet (Dialyvite) 1 tab PO QPM Supplement 07/29/23
gabapentin 100 mg capsule 100 mg PO HS Pain 09/09/23
pantoprazole 40 mg tablet,delayed release (Protonix) 40 mg PO BID Gastrointestinal Issue 09/09/23
spironolactone 25 mg tablet 25 mg PO DAILY Blood pressure #30 tabs 09/16/23
Lactobac no.2-Bifidobac no.1-S. thermo 112.5 billion cell capsule (Visbiome) 1 cap PO DAILY 10/29/23
acetaminophen 500 mg tablet (Tylenol Extra Strength) 1,000 mg PO TID PRN mild pain 10/29/23
clonidine HCl 0.2 mg tablet 0.2 mg PO TID Blood pressure 10/29/23
hydralazine 100 mg tablet 100 mg PO TID Blood Pressure 10/29/23
warfarin 3 mg tablet 3 mg PO QPM Blood Clot Prevention/Tx 10/29/23
cefpodoxime 200 mg tablet 200 mg PO HS #4 tabs 10/31/23
oxycodone-acetaminophen 5 mg-325 mg tablet 1 tab PO Q8HPRN PRN moderate pain #4 tabs 10/31/23
Home Medication Changes
Pending Results: No
--- NOTE | 2023-10-31 11:30 | CM ---
Patient for transfer to [facility] today.
[facility]
IMM completed.
Plan: Skilled rehab today.
[facility]
report#[phone]
[2023-10-31 11:50] LABS: Glucose - Point of Care 244 mg/dl (70-99)
[2023-10-31] MEDS: NOVOLOG FLEXPEN-LOW RESISTANCE 2 UNITS SC (12:08)
[2023-10-31 13:32] VITALS: BP 130/58
== END 2023-10-31 14:03 | DRG 371 ==
LOC: 4 WEST ACU 17:03
PROVIDERS: Physician Assistant; Radiology Vascular & Interventional Radiology; Specialist; ADMITTING PHYSICIAN Hospitalist; CONSULT PHYSICIAN Specialist; EMERGENCY PHYSICIAN Emergency Medicine; FAMILY PHYSICIAN Internal Medicine
PROC: 0W9G3ZZ Drainage of Peritoneal Cavity, Percutaneous Approach (ICD-10-PCS; 2023-10-29)
PROC: 5A1D70Z Performance of Urinary Filtration, Intermittent, Less than 6 Hours Per Day (ICD-10-PCS; 2023-10-30)
DX: K65.2 Spontaneous bacterial peritonitis (principal); N18.6 End stage renal disease; R18.8 Other ascites; J91.8 Pleural effusion in other conditions classified elsewhere; I13.2 Hypertensive heart and chronic kidney disease with heart failure and with stage 5 chronic kidney disease, or end stage renal disease; I50.32 Chronic diastolic (congestive) heart failure; F11.20 Opioid dependence, uncomplicated; D63.1 Anemia in chronic kidney disease; E11.22 Type 2 diabetes mellitus with diabetic chronic kidney disease; E11.51 Type 2 diabetes mellitus with diabetic peripheral angiopathy without gangrene; Z95.820 Peripheral vascular angioplasty status with implants and grafts; E11.42 Type 2 diabetes mellitus with diabetic polyneuropathy; F32.A Depression, unspecified; E83.39 Other disorders of phosphorus metabolism; Z99.2 Dependence on renal dialysis; I25.10 Atherosclerotic heart disease of native coronary artery without angina pectoris; I48.0 Paroxysmal atrial fibrillation; G89.4 Chronic pain syndrome; M48.061 Spinal stenosis, lumbar region without neurogenic claudication; M54.50 Low back pain, unspecified; E78.5 Hyperlipidemia, unspecified; F41.9 Anxiety disorder, unspecified; G43.909 Migraine, unspecified, not intractable, without status migrainosus; K21.9 Gastro-esophageal reflux disease without esophagitis; R79.1 Abnormal coagulation profile; R26.89 Other abnormalities of gait and mobility; Z79.01 Long term (current) use of anticoagulants; Z79.4 Long term (current) use of insulin; Z79.899 Other long term (current) drug therapy; Z86.19 Personal history of other infectious and parasitic diseases; Z87.891 Personal history of nicotine dependence
CPT/HCPCS: 32555; 80053; 82042; 82140; 82962; 83036; 83615; 84157; 85025; 85610; 87015; 87070; 87205; 89051; 96374; 97162; 97166; 99285; G0257; P9045; P9047; Q5106

== ENCOUNTER → 2023-11-23 10:18 | Outpatient (REF) | payer OTHER, SELFPAY ==
[2023-11-23 10:48] VITALS: BP 157/72; BP_SYST 76
[2023-11-23 11:20] VITALS: BP 150/66
[2023-11-23 11:59] LABS: Body Fluid Mononuclear 72.8 %; Body Fluid Polymorphonuclear 27.2 %; Body Fluid WBC 503 /CUMM
[2023-11-23 12:16] LABS: Body Fluid Second Tech HB
== END ==
LOC: RADI 10:18
PROVIDERS: ATTENDING PHYSICIAN Internal Medicine; FAMILY PHYSICIAN Physician Assistant Medical
DX: R18.8 Other ascites (principal)
CPT/HCPCS: 49083; 89051

== ENCOUNTER 2023-12-11 11:04 | Emergency (ER) | payer OTHER, SELFPAY ==
[2023-12-11 11:05] VITALS: BP 188/78
--- NOTE | 2023-12-11 11:16 | ED.GENMED ---
History of Present Illness
General
Chief Complaint: Abdominal Symptoms
Source: patient
Time Seen by Provider: 12/11/23 11:04
History of Present Illness
History of Present Illness:
58-year-old male with multiple chronic medical conditions including atrial fibrillation, CHF, CAD, chronic kidney disease (dialysis Thursday/Thursday/Thursday) presenting to the ER from rehab facility after he has missed at least 2 dialysis sessions
due to diarrhea. Patient reports that due to the diarrhea he was unable to go to the facility for dialysis and they would not bring his dialysis machine to his room, sent to the ER today for dialysis since they could not do it at the facility.
Patient admits to associated abdominal discomfort which she relates to distention, notes that he was recently here for an infection of his abdomen (noted to have been admitted for SBP) and believes he completed a course of antibiotics a few weeks
ago. Patient states that his diarrhea seems to have resolved since yesterday afternoon. He is unaware of any fevers. No known sick contacts or recent travel. Patient notes that prior to his admission here he had been living at home on his own
but over the last month or so has been at this rehab facility.
Past History
Past History
ED Past Medical History: CAD, GERD, HTN, IDDM, Renal failure (End-stage renal disease), Psychiatric (Depression) and Other (Chronic low back pain, ambulatory dysfunction, anemia, pneumonia, pericardial effusion, pleural effusion, frequent falls,
neuropathy)
ED Past Surgical History: Other (Left arm AV graft)
Social History
Tobacco: Non-smoker
Alcohol: None
Drug: None
Personal:
Living: alf
Employment: Disabled
Family History
Family History: Other (Noncontributory)
Review of Systems
Review of Systems
All Other Systems: ROS reviewed and negative except as documented in HPI and ROS
Phy Exam
Physical Exam
Physical Exam:
GENERAL: Alert , in no apparent distress
EYE: Anicteric sclera
NECK: Supple
ENT: o/p clr, mmm.
CARDIAC: Regular rate and rhythm, systolic murmur.
LUNGS: Clear breath sounds bilaterally, no acute respiratory distress, no wheezes/rales/rhonchi
ABDOMEN: Firm, significantly distended, positive ascites
NEUROLOGICAL: Alert and oriented
SKIN: Warm and dry, skin intact.
MUSCULOSKELETAL: No edema, well perfused. Left upper extremity: AV fistula with palpable thrill
PSYCH: Normal and appropriate interaction.
Scores
Heart Failure Risk
Heart Failure Risk Score: Not Applicable
Heart Score for Chest Pain Patients
STEMI patient?: Not applicable
Withdrawal Assessment of Alcohol
Withdrawal Assessment Completed?: Not applicable
Course
Orders/Labs/Results
Orders:
Orders
12/11/23 11:10
Complete Blood Count/With Diff Urgent
12/11/23 11:12
PT/INR [Prothrombin Time] Urgent
PTT Urgent
12/11/23 11:47
Ammonia Urgent
Basic Metabolic Panel Urgent
Lipase Urgent
12/11/23 12:27
Consult Nephrology [NEPHROLOGY CONSULT] Urgent
Consulting Provider: Nataly Otto
Was physician already notified: Yes
Albumin Human 25% 50 ml [Flexbumin 25% For Hemodialysis] 12.5 grams IV HD-Q1HPRN PRN
Hemodialysis treatment As Directed
Treatment date:: 12/11/23
Treatment type: Hemodialysis
Ultrafiltration (kg): 2kg
Treatment time (duration): 3 hours 30 minutes
Use dialysis access:: AVF
Dialyzer:: Optiflux 160
Blood flow rate minimum: 350
Blood flow rate maximum: 400
Dialysis flow rate: 600 mL/min
Dialysate temperature: 36 degrees Celsius
Sodium (Na): 137
Potassium (K): 2
Calcium (Ca): 2.5
Bicarbonate (HCO3): 35
12/11/23 14:00
Mannitol 25% 12.5 grams IV HD-Q1HPRN PRN
12/11/23 14:10
HBSAB [Hepatitis B Surface Antibody] Urgent
Comment: HD Nurse will draw.
HBSAG [Hepatitis B Surface Antigen] Urgent
Comment: HD Nurse will draw
Potassium Urgent
Comment: HD Nurse will draw
Abnormal Lab Results
12/11/23 12/11/23 12/11/23
11:10 11:12 11:47
WBC 11.0 H 10^3/uL
(4.8-10.8)
RBC 4.03 L 10^6/uL
(4.70-6.10)
Hgb 10.2 L g/dL
(13.0-18.0)
Hct 32.3 L %
(39.0-52.0)
MCH 25.3 L pg
(27.0-31.0)
MCHC 31.6 L g/dL
(33.0-37.0)
RDW 20.3 H %
(11.5-14.5)
Abs Immat Gran (auto) 0.1 H 10^3/uL
(0-0.05)
Absolute Neuts (auto) 8.5 H 10^3/uL
(1.4-6.5)
Absolute Lymphs (auto) 0.8 L 10^3/uL
(1.2-3.4)
Absolute Monos (auto) 0.9 H 10^3/uL
(0.1-0.6)
Neutrophils % 77.2 H %
(42.2-75.2)
Lymphocytes % 7.1 L %
(20.5-51.1)
Eosinophils % 6.2 H %
(0-6)
PT 28.0 H Sec
(11.4-14.6)
APTT 41.0 H Sec
(23.4-35.0)
Potassium
Carbon Dioxide 21 L mmol/L
(22-30)
BUN 68 H mg/dl
(9-20)
Creatinine 9.0 H* mg/dL
(0.7-1.3)
Glucose 109 H mg/dl
(70-99)
12/11/23
14:10
WBC
RBC
Hgb
Hct
MCH
MCHC
RDW
Abs Immat Gran (auto)
Absolute Neuts (auto)
Absolute Lymphs (auto)
Absolute Monos (auto)
Neutrophils %
Lymphocytes %
Eosinophils %
PT
APTT
Potassium 5.2 H mmol/L
(3.5-5.1)
Carbon Dioxide
BUN
Creatinine
Glucose
12/11/23 11:10
12/11/23 14:10
Vital Signs
Initial and Last Documented VS:
Initial Vital Signs
Temp Pulse Resp BP Pulse Ox
98.2 F 82 20 188/78 93
12/11/23 11:05 12/11/23 11:05 12/11/23 11:05 12/11/23 11:05 12/11/23 11:05
Last Documented Vital Signs
Temp Pulse Resp BP Pulse Ox
98.5 F 75 20 214/91 98
12/11/23 18:38 12/11/23 18:38 12/11/23 18:38 12/11/23 18:38 12/11/23 18:38
MDM/Problems Addressed
Differential Diagnosis Includes:
Antibiotic associated colitis, C. difficile colitis, electrolyte disturbance, recurring SBP
MDM/Problems Addressed:
58-year-old male presenting to the emergency department with EMS from rehab facility patient has missed 2 sessions of dialysis due to diarrhea. Patient reports that diarrhea seems to have been resolved and yesterday afternoon. He arrives to the ER
hemodynamically stable. He is noting abdominal distention. Last paracentesis appears to have been during his admission here in October. Reportedly finished antibiotics a few weeks ago as well. Will attempt to obtain stool studies. Labs including
ammonia level ordered. Disposition pending.
Chronic conditions affecting care: HTN, Kidney disease and Other (Recurring ascites)
*Pulse Oximetry
Patient hypoxic: no
*Critical Care Note
Total Time (30-74mins, 75-104mins- exclusive of procedures): Not Applicable
Data Reviewed
Review of Other/Old Records Reveals: Labs, Records and Discharge Summary
Source: patient, records and ambulance crew
Comment
Comment:
11:57 AM: Attempted twice to contact patient's rehab facility. Unable to speak with nursing. Will continue to try and call back.
Patient Management
Discussion with other providers: correction staff
Escalation/DeEscalation of care consider admission/obs:
2 PM: Spoke to patient's nurse at rehab facility who states that they sent patient to the ER as part of their policy if patient refuses 2 consecutive dialysis sessions that they must send the patient to the ER for dialysis. Patient was not
exhibiting any other abnormal symptoms at the facility. They were informed that dialysis was initiated in the ER and will get full session here and then once completed discharged back to rehab facility.
Update Note
Update Note:
6PM: Patient completed dialysis without difficulty or complication. Stable for d/c back to alf.
ED Attending Note
-
Portions of this chart may have been created with voice recognition software.� Occasional wrong word or��sound alike� substitutions may have occurred due to the inherent limitations of voice recognition software.
Discharge Plan
Departure
Patient Disposition: Skilled Nursing/SNF
Date of Disposition: 12/11/23
Time of Disposition: 17:34
Patient with high blood pressure during this ER visit?: Yes
Discharge Problem:
CKD (chronic kidney disease), Ascites
Instructions: End-stage kidney disease (kidney failure)
Prescriptions:
No Action
atorvastatin 80 mg Tablet
80 mg PO HS
icosapent ethyl [Vascepa] 1 gram Capsule
2 g PO BID
lidocaine-prilocaine 2.5-2.5 % Cream
1 applic TOPICAL MOWEFR PRN (Reason: port access)
nifedipine 60 mg Tablet Extended Release
60 mg PO BID Qty: 0 0RF
sevelamer carbonate 800 mg tablet
1,600 mg PO MEALS
bumetanide 2 mg tablet
2 mg PO SUTUTHSA@0800,1900
sertraline 100 mg tablet
100 mg PO DAILY
losartan 100 mg tablet
100 mg PO BID
Dialyvite 100-1 mg tablet
1 tab PO DAILY
insulin degludec [Tresiba U-100 Insulin] 100 unit/mL solution
6 unit SC HS
pantoprazole [Protonix] 40 mg tablet,delayed release (DR/EC)
40 mg PO BID
gabapentin 100 mg capsule
100 mg PO HS
spironolactone 25 mg Tablet
25 mg PO DAILY Qty: 30 0RF
warfarin 3 mg Tablet
4 mg PO MOTUWETHFRSA@2200
Visbiome 112.5 billion cell Capsule
1 cap PO DAILY
acetaminophen [Tylenol Extra Strength] 500 mg tablet
1,000 mg PO Q6HPRN PRN (Reason: mild pain)
clonidine HCl 0.2 mg tablet
0.2 mg PO TID
hydralazine 100 mg tablet
100 mg PO TID
ondansetron HCl [Zofran] 4 mg Tablet
4 mg PO Q8HPRN PRN (Reason: NAUSEA)
clonazepam 0.5 mg Tablet
0.5 mg PO DAILYPRN PRN (Reason: STIMULUS MYOCLONUS)
insulin lispro [Humalog Pen] 100 unit/mL Insulin Pen
0 sliding scale dose SC AC
Rx Instructions:
150-200=2UNITS, 201-250=4UNITS, 251-300=6UNITS
Referrals:
Elizabeth Velasquez DO [Family Provider] -
Interventions
Interventions:
*Risk Screen - Suicide Last Done: 12/11/23 11:05
*General Assessment Last Done: 12/11/23 11:05
*Neglect/Abuse Screening Last Done: 12/11/23 11:05
ED- Fall Risk Assessment Last Done: 12/11/23 13:29
*Nursing Disposition Last Done: 12/11/23 18:41
DR-Huwgar-Iyenhvtifn Assessment Last Done: 12/11/23 13:29
Discharge Date and Time
Discharge Date/Time: 12/11/23 18:43
Print Language: MALAGASY
[2023-12-11 11:37] LABS: % Basophils 0.8 % (0-2); % Eosinophils 6.2 % (0-6); % Immature Granulocytes 0.5 % (0-0.5); % Lymphocytes 7.1 % (20.5-51.1); % Monocytes 8.2 % (1.7-9.3); % Neutrophils 77.2 % (42.2-75.2); Absolute Basophils 0.1 10^3/uL (0-0.2); Absolute Eosinophils 0.7 10^3/uL (0-0.7); Absolute Immature Granulocytes 0.1 10^3/uL (0-0.05); Absolute Lymphocytes 0.8 10^3/uL (1.2-3.4); Absolute Monocytes 0.9 10^3/uL (0.1-0.6); Absolute Neutrophils 8.5 10^3/uL (1.4-6.5); Hematocrit 32.3 % (39.0-52.0); Hemoglobin 10.2 g/dL (13.0-18.0); Mean Corp Hgb Conc. 31.6 g/dL (33.0-37.0); Mean Corpuscular Hgb 25.3 pg (27.0-31.0); Mean Corpuscular Volume 80.1 fL (80.0-94.0); Mean Platelet Volume 9.2 fL (7.4-10.4); Nucleated Red Blood Cells % 0 % (-); Platelet Count 360 10^3/uL (130-400); Red Blood Cell Count 4.03 10^6/uL (4.70-6.10); Red Cell Dist. Width 20.3 % (11.5-14.5)
[2023-12-11 11:44] LABS: INR 2.63
[2023-12-11 12:17] LABS: Ammonia 11 umol/L (9-30)
[2023-12-11 12:40] LABS: Blood Urea Nitrogen 68 mg/dl (9-20); Calcium 8.4 mg/dl (8.4-10.2); Carbon Dioxide 21 mmol/L (22-30); Chloride 100 mmol/L (98-107); Glucose 109 mg/dl (70-99); Lipase 31 U/L (23-300); Sodium 136 mmol/L (135-145); eGFR 6.21
[2023-12-11 13:30] VITALS: BP 181/74
[2023-12-11 14:24] LABS: Potassium 5.2 mmol/L (3.5-5.1)
--- NOTE | 2023-12-11 16:38 | W.CON.NEPH ---
Consultation
-
Date/Time Consultation Requested: 12/11/2023 12:27PM
Date/Time Consultation Performed: 12/12/2023 4:38PM
Requesting Provider: Pool Chisholm
Performing Provider: Nataly Otto
Reason for Consultation: ESRD on HD
Medical History
-
Chief Complaint: End-stage renal disease
History of Present Illness:
Mr. King is a 58YOM with PMH of ESRD on hemodialysis for 5yr (MWF at [facility]) now at a rehab in [place], HFpEF, pleural effusions previous thoracentesis, on chronic diuretics with bumex. He has a history of diabetes on insulin
therapy. He is maintained on sevelamer for his hyperphosphatemia. HTN on hydralazine, Procardia and clonidine, coronary artery disease, paroxysmal atrial fibrillation on Coumadin, anemia of chronic disease, , spinal stenosis presenting with with
increased ascites. He arrives today in the setting of diarrhea and 2 missed dialysis sessions. Today is his normal dialysis day. We are consulted for ESRD management.
Past Medical History
1. ESRD x5 years presumed due to diabetic nephropathy.
2. Chronic pain.
3. Chronic back pain.
4. Atrial fibrillation on Coumadin.
5. Chronic anemia.
6. History of thoracentesis.
7. History of pericardiocentesis at outside hospital back in fall
of 2022.
8. Elevated HEYDI with subsequent negative testing.
9. Peripheral neuropathy.
10. History of left upper extremity radiocephalic AV fistula.
11. History of hypertension on multi-drug regimen.
12. History of coronary artery disease.
13. History of peripheral eosinophilia.
14. Hyperphosphatemia.
Past Medical History: Other
Past Surgical History: Other (Left arm AVG)
Social History
Tobacco: Former Smoker
Alcohol: Former
Drug: None
Family History
Family History: Not Pertinent
Allergies / Home Medications
Allergy/AdvReac Type Severity Reaction Status Date / Time
morphine Allergy Unknown Verified 12/11/23 11:05
�Medication �Instructions �Recorded �Confirmed �Type
atorvastatin 80 mg tablet 80 mg PO HS High Cholesterol 12/23/22 12/11/23 History
icosapent ethyl 1 gram capsule 2 g PO BID High Cholesterol 12/23/22 12/11/23 History
(Vascepa)
lidocaine-prilocaine 2.5 %-2.5 % 1 applic topical MOWEFR PRN port 12/23/22 12/11/23 History
topical cream access
nifedipine 60 mg tablet,extended 60 mg PO BID Blood Pressure #0 tabs 02/13/23 12/11/23 Rx
release
sevelamer carbonate 800 mg tablet 1,600 mg PO MEALS Kidney Disease 03/30/23 12/11/23 History
bumetanide 2 mg tablet 2 mg PO SUTUTHSA@0800,1900 Fluid 07/29/23 12/11/23 History
Retention/Swelling
insulin degludec 100 unit/mL 6 unit SC HS Diabetes 07/29/23 12/11/23 History
subcutaneous solution (Tresiba
U-100 Insulin)
losartan 100 mg tablet 100 mg PO BID Blood Pressure 07/29/23 12/11/23 History
sertraline 100 mg tablet 100 mg PO DAILY Mental Health 07/29/23 12/11/23 History
vitamin B complex-vitamin C 100 1 tab PO DAILY Supplement 07/29/23 12/11/23 History
mg-folic acid 1 mg tablet
(Dialyvite)
gabapentin 100 mg capsule 100 mg PO HS Pain 09/09/23 12/11/23 History
pantoprazole 40 mg tablet,delayed 40 mg PO BID Gastrointestinal Issue 09/09/23 12/11/23 History
release (Protonix)
spironolactone 25 mg tablet 25 mg PO DAILY Blood pressure #30 09/16/23 12/11/23 Rx
tabs
Lactobac no.2-Bifidobac no.1-S. 1 cap PO DAILY 10/29/23 12/11/23 History
thermo 112.5 billion cell capsule
(Visbiome)
acetaminophen 500 mg tablet 1,000 mg PO Q6HPRN PRN mild pain 10/29/23 12/11/23 History
(Tylenol Extra Strength)
clonidine HCl 0.2 mg tablet 0.2 mg PO TID Blood pressure 10/29/23 12/11/23 History
hydralazine 100 mg tablet 100 mg PO TID Blood Pressure 10/29/23 12/11/23 History
warfarin 3 mg tablet 4 mg PO MOTUWETHFRSA@2200 Blood 10/29/23 12/11/23 History
Clot Prevention/Tx
clonazepam 0.5 mg tablet 0.5 mg PO DAILYPRN PRN STIMULUS 12/11/23 12/11/23 History
MYOCLONUS
insulin lispro 100 unit/mL 0 sliding scale dose SC AC 12/11/23 12/11/23 History
subcutaneous pen
ondansetron HCl 4 mg tablet 4 mg PO Q8HPRN PRN NAUSEA 12/11/23 12/11/23 History
Review of Systems
-
History Source: Patient
All other systems: Negative unless noted
Constitutional: Fatigue
Abdomen/GI: Diarrhea
Musculoskeletal: Other (back pain)
Physical Exam
Vital Signs
Vital Signs
Temp Pulse Resp BP Pulse Ox
98.2 F 75 16 181/74 93
12/11/23 11:05 12/11/23 15:32 12/11/23 15:32 12/11/23 13:30 12/11/23 13:30
Lab Results
WBC 11.0 10^3/uL (4.8-10.8) H 12/11/23 11:10
RBC 4.03 10^6/uL (4.70-6.10) L 12/11/23 11:10
Hgb 10.2 g/dL (13.0-18.0) L 12/11/23 11:10
Hct 32.3 % (39.0-52.0) L 12/11/23 11:10
Plt Count 360 10^3/uL (130-400) 12/11/23 11:10
Sodium 136 mmol/L (135-145) 12/11/23 11:47
Potassium 5.2 mmol/L (3.5-5.1) H 12/11/23 14:10
Chloride 100 mmol/L (98-107) 12/11/23 11:47
Carbon Dioxide 21 mmol/L (22-30) L 12/11/23 11:47
BUN 68 mg/dl (9-20) H 12/11/23 11:47
Creatinine 9.0 mg/dL (0.7-1.3) H* 12/11/23 11:47
eGFR 6.21 12/11/23 11:47
Glucose 109 mg/dl (70-99) H 12/11/23 11:47
Calcium 8.4 mg/dl (8.4-10.2) 12/11/23 11:47
Albumin Cancelled 12/11/23 11:47
Physical Exam
General: AOx3, No Distress and Nontoxic
HEENT: PERRL, EOMI, Anicteric, Conjunctivae Clear, Ear/Nose Intact, Hearing Normal, Oropharynx Clear/Moist and Dentition Intact
Respiratory: Clear
Cardiac: S1/S2, Regular Rate/Rhythm and No Edema
Breast: N/A
Abdomen: Soft, Nontender and Other (distended)
Rectal: Deferred by Provider
Genito-urinary: No Costovertebral Tender
Musculoskeletal: No Clubbing, No Cyanosis and No Edema
Skin: No Rash, Warm, Dry, No Clubbing, No Cyanosis, Normal Turgor and No Bruising
Neuro: Nonfocal/Grossly Intact
Hematologic/Lymphatic: No Cervical Lymphadenopathy
Psych: Mood/afflect pleasant, Insight/judgement good and Appropriate
Data Reviewed
-
Labs: Labs Reviewed by me
Old Records: Reviewed
Assessment/Plan
-
Impression:
diarrhea
Anemia
ESRD presumed DM nephropathy-on hemodialysis M, W, Yves, Anthony Garber
Chronic HFpEF
History of bilateral pleural effusions status post thoracentesis
History of pericardial effusion status post pericardiocentesis
Coronary artery disease
Paroxysmal atrial fibrillation
Essential hypertension
DM with multiple microvascular complications
Hyperlipidemia
Spinal stenosis
Migraine history
History of C. difficile
Anxiety/depression
L radial AVF
Severe lumbar spinal stenosis at multiple levels
Chronic low back pain with ambulatory dysfunction
Hyperphosphatemia
Plan:
HD today per usual schedule
dc planning per ER
--- NOTE | 2023-12-11 16:41 | W.PN.NEPH.HD ---
Assessment
-
UF 2L
BPs high on HD
no complains with HD
Progress Note - Hemodialysis
-
Date of Service: December 11, 2023
Duration: 30 minutes and 3 hours
Potassium Bath: 3
Calcium Bath: 2.5
Opti-Dialyzer: 160
Ultrafiltration: Other
Blood Flow: 400
Dialysate Flow: 600
[2023-12-11 18:38] VITALS: BP 214/91
[2023-12-14 19:18] LABS: Hepatitis B Surface Antigen Negative (Negative)
[2023-12-14 19:35] LABS: Hepatitis B Surface Antibody Positive
== END 2023-12-11 18:43 ==
LOC: EMR 11:04
PROVIDERS: Physician Assistant Medical; CONSULT PHYSICIAN Student in an Organized Health Care Education/Training Program; EMERGENCY PHYSICIAN Emergency Medicine; FAMILY PHYSICIAN Internal Medicine
DX: R10.9 Unspecified abdominal pain (principal); R19.7 Diarrhea, unspecified; R14.0 Abdominal distension (gaseous); I13.2 Hypertensive heart and chronic kidney disease with heart failure and with stage 5 chronic kidney disease, or end stage renal disease; I50.9 Heart failure, unspecified; R18.8 Other ascites; N18.6 End stage renal disease; I48.0 Paroxysmal atrial fibrillation; F32.A Depression, unspecified; G89.29 Other chronic pain; M54.50 Low back pain, unspecified; I77.0 Arteriovenous fistula, acquired; E11.42 Type 2 diabetes mellitus with diabetic polyneuropathy; E11.22 Type 2 diabetes mellitus with diabetic chronic kidney disease; E11.59 Type 2 diabetes mellitus with other circulatory complications; D63.1 Anemia in chronic kidney disease; E78.5 Hyperlipidemia, unspecified; F41.9 Anxiety disorder, unspecified; G43.909 Migraine, unspecified, not intractable, without status migrainosus; I25.10 Atherosclerotic heart disease of native coronary artery without angina pectoris; K21.9 Gastro-esophageal reflux disease without esophagitis; M48.061 Spinal stenosis, lumbar region without neurogenic claudication; R29.6 Repeated falls; Z79.01 Long term (current) use of anticoagulants; Z79.4 Long term (current) use of insulin; Z99.2 Dependence on renal dialysis; Z87.891 Personal history of nicotine dependence; Z79.899 Other long term (current) drug therapy; Z88.5 Allergy status to narcotic agent
CPT/HCPCS: 99285; G0257; 80048; 82140; 83690; 84132; 85025; 85610; 85730; 86706; 87340; P9047

== ENCOUNTER 2023-12-30 18:46 | Observation (INO) | payer OTHER, SELFPAY ==
[2023-12-30] VITALS (11 sets, daily range): BP systolic 137–204; BP diastolic 61–105; BMI 28.0; BMI 26.4
--- NOTE | 2023-12-30 11:13 | ED.GENMED ---
History of Present Illness
General
Chief Complaint: Abdominal Symptoms
Source: patient
Exam Limitations: none
Time Seen by Provider: 12/30/23 10:51
Nursing documentation reviewed up to this point in time: agreed with
History of Present Illness
History of Present Illness:
pt is a 58 y/o M
esrd on HD /
CHF
afib on coumadin
has developed ascites over the past few months
no known liver disease
has not been seen by GI yet for work up
but apparently somehow made appt for para today but there was no script
worsening chornic abd distension and pain, some SOB
no chest dona, fever, chills, confusion
Past History
Past History
ED Past Medical History: CAD, GERD, HTN, IDDM, Renal failure (End-stage renal disease), Psychiatric (Depression) and Other (Chronic low back pain, ambulatory dysfunction, anemia, pneumonia, pericardial effusion, pleural effusion, frequent falls,
neuropathy)
ED Past Surgical History: Other (Left arm AV graft)
Social History
Tobacco: Non-smoker
Alcohol: None
Drug: None
Personal:
Living: long term
Employment: Disabled
Family History
Family History: Other (Noncontributory)
Phy Exam
Physical Exam
Physical Exam:
GENERAL: Alert , in no apparent distress
EYE: pupils equal and reactive
NECK: Supple
ENT: o/p clr, dry mouth
CARDIAC: Regular rate and rhythm .
LUNGS: diminished bases
back: pain in upper back;
ABDOMEN:very distended, slightly pink lower abdomen skin; minimally tender;
NEUROLOGICAL: Alert and oriented, no focal neuro deficits
SKIN: Warm and dry, pale
MUSCULOSKELETAL: No edema, well perfused. neg robbie's sign
PSYCH: Normal and appropriate interaction.
Course
Orders/Labs/Results
Orders:
Orders
12/30/23 11:08
Consult Interventional Radiology [IRAD CONSULT] Urgent
Consulting Provider: Dank Smith
Was physician already notified: Yes
Reason for Consult/Procedure: para
Acknowledgement that appropriate orders are entered: Yes
12/30/23 11:11
Body Fluid Amylase Urgent
Fluid Source: Peritoneal (Ascites)
Fluid Culture with Gram Stain Urgent
DEMETRIUS Source: Peritoneal Fluid
Specimen Description:
Comment: Post Procedure
Gram Stain Urgent
DEMETRIUS Source: Peritoneal Fluid
Specimen Description:
Comment: Post Procedure
12/30/23 11:12
Body Fluid Albumin Urgent
Fluid Source: Peritoneal (Ascites)
Body Fluid Cell Count Urgent
What is the Body Fluid: peritoneal fluid
Comment: post procedure
Body Fluid LDH Urgent
Fluid Source: Peritoneal (Ascites)
Body Fluid Protein Urgent
Fluid Source: Peritoneal (Ascites)
12/30/23 11:23
Complete Blood Count/With Diff Urgent
Comprehensive Metabolic Panel Urgent
PTT Urgent
Prothrombin Time Urgent
12/30/23 12:30
HydrALAZINE [Apresoline] 100 mg PO NOW STA
12/30/23 15:02
Oxycodone [Roxicodone] 5 mg PO NOW STA
12/30/23 15:13
CR Chest - 2 Views Urgent
Comment:
Reason For Exam: edema
12/30/23 15:18
Electrocardiogram (*1) Urgent
Reason for Study: Heart Failure, Left
EKG- Treatment ONCE
12/30/23 15:53
Ammonia Urgent
Abnormal Lab Results
12/30/23 12/30/23
11: 15:53
RBC 4.39 L 10^6/uL
(4.70-6.10)
Hgb 10.8 L g/dL
(13.0-18.0)
Hct 34.8 L %
(39.0-52.0)
MCV 79.3 L fL
(80.0-94.0)
MCH 24.6 L pg
(27.0-31.0)
MCHC 31.0 L g/dL
(33.0-37.0)
RDW 18.3 H %
(11.5-14.5)
Absolute Lymphs (auto) 0.5 L 10^3/uL
(1.2-3.4)
Absolute Monos (auto) 0.9 H 10^3/uL
(0.1-0.6)
Neutrophils % 76.4 H %
(42.2-75.2)
Lymphocytes % 6.1 L %
(20.5-51.1)
Monocytes % 10.2 H %
(1.7-9.3)
Eosinophils % 6.1 H %
(0-6)
PT 33.8 H Sec
(11.4-14.6)
APTT 70.1 H Sec
(23.4-35.0)
Chloride 92 L mmol/L
(98-107)
Carbon Dioxide 32 H mmol/L
(22-30)
BUN 52 H mg/dl
(9-20)
Creatinine 4.7 H* mg/dL
(0.7-1.3)
Glucose 152 H mg/dl
(70-99)
Alkaline Phosphatase 161 H U/L
(38-126)
Ammonia < 9 L umol/L
(9-30)
Albumin 3.2 L g/dl
(3.5-5.0)
12/30/23 11:23
12/30/23 11:23
Vital Signs
Initial and Last Documented VS:
Initial Vital Signs
Temp Pulse Resp BP Pulse Ox
98.5 F 84 18 199/90 97
12/30/23 10:32 12/30/23 10:32 12/30/23 10:32 12/30/23 10:32 12/30/23 10:32
Last Documented Vital Signs
Temp Pulse Resp BP Pulse Ox
98.5 F 76 18 191/92 97
12/30/23 10:32 12/30/23 12:40 12/30/23 10:32 12/30/23 15:00 12/30/23 11:39
MDM/Problems Addressed
Differential Diagnosis Includes:
sbp, ascites, chf
MDM/Problems Addressed:
58 yo M ESRD hd T/ last dialyzed yesterday; has had recurrent abdominal ascites and had SBP in october; has had a couple of para; no h/o liver disease
came to outpatient IR for para but no RX was written;
pt is poor historian;
i spoke with IR who recommended labs and consult placed and would assess.
unfortunately,
he is on coumadin and INR is 3 and too high for para today;
so will admit
he has no fever, no wbc; holding abx
appreciate CHF on cxr indep reviewed
hypertensive
stable o2
*Critical Care Note
Total Time (30-74mins, 75-104mins- exclusive of procedures): Not Applicable
ED Attending Note
-
Portions of this chart may have been created with voice recognition software.� Occasional wrong word or��sound alike� substitutions may have occurred due to the inherent limitations of voice recognition software.
Discharge Plan
Departure
Patient Disposition: Admit
Date of Disposition: 12/30/23
Time of Disposition: 15:13
Admit to: Telemetry
Presentation/result/management discussed w/ accepting MD/DO: Hospitalist
Condition: Fair
Covid-19: Not Applicable
Discharge Problem:
Ascites, CHF (congestive heart failure)
Prescriptions:
No Action
atorvastatin 80 mg Tablet
80 mg PO HS
icosapent ethyl [Vascepa] 1 gram Capsule
2 g PO BID
lidocaine-prilocaine 2.5-2.5 % Cream
1 applic TOPICAL MOWEFR PRN (Reason: port access)
nifedipine 60 mg Tablet Extended Release
60 mg PO BID Qty: 0 0RF
sevelamer carbonate 800 mg tablet
1,600 mg PO MEALS
bumetanide 2 mg tablet
2 mg PO SUTUTHSA@0800,1900
sertraline 100 mg tablet
100 mg PO DAILY
losartan 100 mg tablet
100 mg PO BID
Dialyvite 100-1 mg tablet
1 tab PO DAILY
insulin degludec [Tresiba U-100 Insulin] 100 unit/mL solution
6 unit SC HS
pantoprazole [Protonix] 40 mg tablet,delayed release (DR/EC)
40 mg PO BID
gabapentin 100 mg capsule
100 mg PO HS
spironolactone 25 mg Tablet
25 mg PO DAILY Qty: 30 0RF
warfarin 3 mg Tablet
4 mg PO MOTUWETHFRSA@2200
Visbiome 112.5 billion cell Capsule
1 cap PO DAILY
acetaminophen [Tylenol Extra Strength] 500 mg tablet
1,000 mg PO Q6HPRN PRN (Reason: mild pain)
clonidine HCl 0.2 mg tablet
0.2 mg PO TID
hydralazine 100 mg tablet
100 mg PO TID
ondansetron HCl [Zofran] 4 mg Tablet
4 mg PO Q8HPRN PRN (Reason: NAUSEA)
insulin lispro [Humalog Pen] 100 unit/mL Insulin Pen
0 sliding scale dose SC AC
Rx Instructions:
150-200=2UNITS, 201-250=4UNITS, 251-300=6UNITS
Referrals:
Nadwodny,Rosemarie A., [Family Provider] -
Interventions
Interventions:
*Risk Screen - Suicide Last Done: 12/30/23 11:37
*General Assessment Last Done: 12/30/23 11:37
*Neglect/Abuse Screening Last Done: 12/30/23 11:37
*ED COVID-19 Vaccine History Last Done: 12/30/23 11:26
CK-Xkmien-Rjbvvzbwoz Assessment Last Done: 12/30/23 11:38
Discharge Date and Time
Print Language: SERBIAN
[2023-12-30 11:41] LABS: % Basophils 0.8 % (0-2); % Eosinophils 6.1 % (0-6); % Immature Granulocytes 0.4 % (0-0.5); % Lymphocytes 6.1 % (20.5-51.1); % Monocytes 10.2 % (1.7-9.3); % Neutrophils 76.4 % (42.2-75.2); Absolute Basophils 0.1 10^3/uL (0-0.2); Absolute Eosinophils 0.5 10^3/uL (0-0.7); Absolute Lymphocytes 0.5 10^3/uL (1.2-3.4); Absolute Monocytes 0.9 10^3/uL (0.1-0.6); Absolute Neutrophils 6.5 10^3/uL (1.4-6.5); Hematocrit 34.8 % (39.0-52.0); Hemoglobin 10.8 g/dL (13.0-18.0); Mean Corpuscular Hgb 24.6 pg (27.0-31.0); Mean Corpuscular Volume 79.3 fL (80.0-94.0); Mean Platelet Volume 8.9 fL (7.4-10.4); Nucleated Red Blood Cells % 0 % (-); Platelet Count 353 10^3/uL (130-400); Red Blood Cell Count 4.39 10^6/uL (4.70-6.10); Red Cell Dist. Width 18.3 % (11.5-14.5); White Blood Cell Count 8.5 10^3/uL (4.8-10.8)
[2023-12-30 11:53] LABS: INR 3.27; PT 33.8 Sec (11.4-14.6)
[2023-12-30 11:54] LABS: APTT 70.1 Sec (23.4-35.0)
[2023-12-30 12:05] LABS: ALT (SGPT) 13 U/L (0-50); AST (SGOT) 29 U/L (17-59); Albumin 3.2 g/dl (3.5-5.0); Alkaline Phosphatase 161 U/L (38-126); Blood Urea Nitrogen 52 mg/dl (9-20); Calcium 8.6 mg/dl (8.4-10.2); Carbon Dioxide 32 mmol/L (22-30); Chloride 92 mmol/L (98-107); Estimated Creatinine Clearance 18 ml/min; Glucose 152 mg/dl (70-99); Potassium 4.3 mmol/L (3.5-5.1); Sodium 136 mmol/L (135-145); Total Bilirubin 0.7 mg/dl (0.2-1.3); Total Protein 6.8 g/dl (6.3-8.2); eGFR 13.54
[2023-12-30] MEDS: APRESOLINE 100 MG PO ×2 (12:40→22:21)
--- NOTE | 2023-12-30 13:55 | PHANOTE ---
Addendum entered by Bobby Henry 12/30/23 20:25:
Got in contact with previous nursing facility at 19:20 and 20:24 in an attempt to get the medication list faxed over. Awaiting successful fax.
Original Note:
med rec note- spoke to patient who has mixed answer for some of his medication that his filling with two different strength recently. Also called family on file who does not a med list for hime. called previous detention patient was at until the
end of november. left message and awaiting call back.
[2023-12-30] MEDS: ROXICODONE 5 MG PO (15:07)
[2023-12-30 15:13] LABS: Glucose - Point of Care 92 mg/dl (70-99)
[2023-12-30 16:34] LABS: Ammonia < 9 umol/L (9-30)
--- NOTE | 2023-12-30 16:51 | HPS.HSE ---
Addendum entered and electronically signed by Elizabeth Rocha MD 12/30/23 20:07:
I personally performed a history and physical exam of the patient and discussed management with the resident. I reviewed the resident's note and agree with the documented findings and plan of care HPI/CC.
GENERAL: Chronically ill male in no apparent distress although does appear somewhat winded but able to converse with complete sentences
HEENT: NC/AT no oxygen requirements at this time
HEART: Irregularly irregular, murmur noted
LUNGS : Limited exam, decreased breath sounds at bases bilaterally
ABDOM: soft, nontender, distended with ascitic fluid wave present, + bowel sounds
EXT: no cyanosis, clubbing--2+ lower extremity edema bilaterally--left forearm with fistula, positive bruit, positive thrill
NEUROLOGIC: Grossly intact
SKIN: Appears to have some pinkish discoloration of his abdomen, but does not have the appearance of overt cellulitis
Increased abdominal distention--likely due to ascites--unable to do paracentesis due to INR of 3.2--hold warfarin for now, follow PT/INR--anticipate paracentesis with appropriate studies looking for spontaneous bacterial peritonitis (although
patient without fevers and abdomen essentially nontender)--does not appear to have a diagnosis of cirrhosis, reviewed previous CAT scan of the abdomen and pelvis from August 2023, check abdominal ultrasound--suspected all due to poor volume management
and likely needs more aggressive fluid removal with dialysis--will consult GI--follow daily weights and I's and O's--ammonia level is less than 9
ESRD--Thursday, , Thursday--consult nephrology--continue renal medications
Paroxysmal A-fib--hold warfarin for now--rate controlled
Essential hypertension--blood pressure is elevated--likely due to combination of pain, uncontrolled volume status--continue medications including diuretics, dialysis , pain control, IV hydralazine as well
Chronic back pain with chronic opioid use/dependency--continue oxycodone
Type 2 diabetes mellitus with neuropathy--continue insulin coverage with sliding scale, check hemoglobin V9c--uyeehrev standing insulin as able--continue gabapentin although may need to be adjusted for dialysis
Anemia of chronic disease, likely due to renal failure--hemoglobin appears at baseline
DVT prophylaxis SCDs
CODE STATUS full code
Original Note:
Family Physician
-
Family Physician: Rosemarie Paige
Chief Complaint
-
Abdominal distention
History of Present Illness
58-year-old male past medical history including CAD, GERD, hypertension, A-fib on Coumadin, insulin-dependent diabetes mellitus, end-stage renal disease on hemodialysis, chronic low back pain, neuropathy. Presented to [facility] for a scheduled
paracentesis, patient has been getting serial paracenteses for the past couple months. Patient has new onset ascites developing over the past few months. Patient reports worsening of chronic abdominal distention, some pain and some shortness of
breath. Last paracentesis yielded over 500 cc of fluid. Before his paracentesis it was found that the patient's INR was 3.27, too elevated to undergo the procedure. Patient was sent to the emergency department for further evaluation and
management. In the emergency department patient's INR PT and PTT were all noted to be elevated. Patient's blood pressure was also elevated at 199/105. Patient on Thursday dialysis schedule, last session yesterday. Chest x-ray in
the ED demonstrated mild CHF with a partially loculated right pleural effusion. Patient will be admitted to telemetry for observation.
Medical History
Past Medical History
Past Medical History: Reports CHF, GERD, HTN, Hypercholesterolemia, IDDM, Renal Failure (On HD), Psychiatric and Other
Additional Past Medical History:
Depression, chronic low back pain, ambulatory dysfunction, anemia, pericardial effusion, pleural effusion, frequent falls, neuropathy, spinal stenosis.
Past Surgical History: Reports Other
Additional Past Surgical History:
Left AV fistula arm graft, back surgery
Social History
Tobacco: Former Smoker (37.5-pack-year smoking history)
Alcohol: None
Drug: None
Living: With Family
Employment: Disabled
Family History
Family History: Not pertinent
Allergies / Home Medications
Allergies reflects when Allergies were last updated in [employer].
Home Medications with original date entered in [employer]
Allergy/Medication List:
Allergies
Allergy/AdvReac Type Severity Reaction Status Date / Time
morphine Allergy Unknown Verified 12/30/23 10:33
Home Medications
atorvastatin 80 mg tablet 80 mg PO HS High Cholesterol 12/23/22
icosapent ethyl 1 gram capsule (Vascepa) 2 g PO BID High Cholesterol 12/23/22
lidocaine-prilocaine 2.5 %-2.5 % topical cream 1 applic topical MOWEFR PRN port access 12/23/22
nifedipine 60 mg tablet,extended release 60 mg PO BID Blood Pressure #0 tabs 02/13/23
sevelamer carbonate 800 mg tablet 1,600 mg PO MEALS Kidney Disease 03/30/23
bumetanide 2 mg tablet 2 mg PO SUTUTHSA@0800,1900 Fluid Retention/Swelling 07/29/23
insulin degludec 100 unit/mL subcutaneous solution (Tresiba U-100 Insulin) 6 unit SC HS Diabetes 07/29/23
losartan 100 mg tablet 100 mg PO BID Blood Pressure 07/29/23
sertraline 100 mg tablet 100 mg PO DAILY Mental Health 07/29/23
vitamin B complex-vitamin C 100 mg-folic acid 1 mg tablet (Dialyvite) 1 tab PO DAILY Supplement 07/29/23
gabapentin 100 mg capsule 100 mg PO HS Pain 09/09/23
pantoprazole 40 mg tablet,delayed release (Protonix) 40 mg PO BID Gastrointestinal Issue 09/09/23
spironolactone 25 mg tablet 25 mg PO DAILY Blood pressure #30 tabs 09/16/23
Lactobac no.2-Bifidobac no.1-S. thermo 112.5 billion cell capsule (Visbiome) 1 cap PO DAILY 10/29/23
acetaminophen 500 mg tablet (Tylenol Extra Strength) 1,000 mg PO Q6HPRN PRN mild pain 10/29/23
clonidine HCl 0.2 mg tablet 0.2 mg PO TID Blood pressure 10/29/23
hydralazine 100 mg tablet 100 mg PO TID Blood Pressure 10/29/23
warfarin 3 mg tablet 4 mg PO NANCY@2200 Blood Clot Prevention/Tx 10/29/23
insulin lispro 100 unit/mL subcutaneous pen 0 sliding scale dose SC AC 12/11/23
ondansetron HCl 4 mg tablet 4 mg PO Q8HPRN PRN NAUSEA 12/11/23
Review of Systems
-
History Source: Patient
A 12 point ROS was completed and negative except as noted: No
Constitutional: Reports Weight Loss
Respiratory: Reports Other (Shortness of breath)
Cardiac: Reports No Symptoms
Abdomen/GI: Reports Abdominal Pain and Other (Pinkish rash on lower abdomen); Denies Nausea, Vomiting or Diarrhea
: Reports No Symptoms
Musculoskeletal: Reports Other (Back pain)
Physical Exam
Vital Signs
Vital Signs
Temp Pulse Resp BP Pulse Ox
98.5 F 76 18 191/92 97
12/30/23 10:32 12/30/23 12:40 12/30/23 10:32 12/30/23 15:00 12/30/23 11:39
Physical Exam
General: Conversant, Appears in Distress and Appears Chronically Ill
Respiratory: Clear
Cardiac: S1/S2, Irregular Rhythm and Murmur
GI: Soft, Normal Bowel Sounds and Distended; No Tender
Skin: Warm, Dry and Rash ([place] rash on lower abdomen)
Neuro: Awake, Alert, Oriented and AO x 3
Psych: Calm and Intact Judgment/Insight
Laboratory Results
-
12/30/23 11:23
12/30/23 11:23
Laboratory Results
PT 33.8 Sec (11.4-14.6) H 12/30/23 11:23
INR 3.27 12/30/23 11:23
APTT 70.1 Sec (23.4-35.0) H 12/30/23 11:23
Total Bilirubin 0.7 mg/dl (0.2-1.3) 12/30/23 11:23
AST 29 U/L (17-59) 12/30/23 11:23
ALT 13 U/L (0-50) 12/30/23 11:23
Alkaline Phosphatase 161 U/L (38-126) H 12/30/23 11:23
Data Reviewed
-
Diagnostic Radiology: Report Reviewed by me and Discussed with Physician
Lab Data: Labs Reviewed by me and Discussed with Physician
Impression/Plan
-
IMPRESSION:
58-year-old male with new onset ascites and elevated INR, requiring serial paracentesis
PLAN:
#Abdominal distention
INR 3.27 on admission
Hold warfarin and continue to monitor
IR to paracentesis after INR has decreased
GI consult
Complete abdomen ultrasound in a.m.
Consider anticoagulating patient if INR drops below 2
Monitor electrolytes, magnesium, phosphate, CMP
Daily weights
Monitor ins and outs
Daily coag studies
#ESRD
Patient gets dialysis Thursday
Last session was yesterday Thursday, next session scheduled for tomorrow
Nephrology consult
#A-fib
Patient and A-fib currently, irregular on exam
Currently holding anticoagulation
#Hypertension
Patient's blood pressure is extremely elevated, blood pressure 199/105 in ED
Continue patient's home blood pressure meds
Will order hydralazine for breakthrough hypertension
#Shortness of breath
Likely secondary to abdominal distention
Patient satting well
#Back pain
Patient has extensive back problems
Takes chronic opioids for back problems
Oxycodone for moderate pain
Dilaudid for severe pain
Diet: Sodium, potassium restricted diabetic
DVT prophylaxis SCDs
CODE STATUS full code
--- NOTE | 2023-12-30 18:31 | W.CON.NEPH ---
Consultation
-
Date/Time Consultation Requested: 12/30/231799
Date/Time Consultation Performed: 12/30/231799
Requesting Provider: Dr. Viera
Performing Provider: Dr. Posada
Reason for Consultation: ESRD
Medical History
-
Chief Complaint: SOB
History of Present Illness:
Mr. King is a 58YOM with PMH of ESRD on hemodialysis for 5yr (at [facility]) recently at a rehab in [place] but now back home and [place] and receives dialysis at his home unit Thursday and Saturdays. He was at dialysis on
Thursday, yesterday and had no issues with the treatment. He was in the hospital today for paracentesis but was noted to have an elevated INR and so the procedure was aborted. Due to his symptoms of shortness of breath he was sent to the emergency
room. He was felt to be volume overloaded and is being admitted for paracentesis. We are asked assist in management of his ESRD He has a diabetes on insulin therapy. He is maintained on sevelamer for his hyperphosphatemia. HTN on hydralazine,
Procardia and clonidine, coronary artery disease, paroxysmal atrial fibrillation on Coumadin, anemia of chronic disease.
Past Medical History
1. ESRD x5 years presumed due to diabetic nephropathy.
2. Chronic pain.
3. Chronic back pain.
4. Atrial fibrillation on Coumadin.
5. Chronic anemia.
6. History of thoracentesis.
7. History of pericardiocentesis at outside hospital back in fall
of 2022.
8. Elevated HEYDI with subsequent negative testing.
9. Peripheral neuropathy.
10. History of left upper extremity radiocephalic AV fistula.
11. History of hypertension on multi-drug regimen.
12. History of coronary artery disease.
13. History of peripheral eosinophilia.
14. Hyperphosphatemia.
Past Medical History: Other
Past Surgical History: Other (Left arm AVG)
Social History
Tobacco: Former Smoker
Alcohol: Former
Drug: None
Family History
Family History: Not Pertinent
Allergies / Home Medications
Allergy/AdvReac Type Severity Reaction Status Date / Time
morphine Allergy Unknown Verified 12/30/23 10:33
�Medication �Instructions �Recorded �Confirmed �Type
atorvastatin 80 mg tablet 80 mg PO HS High Cholesterol 12/23/22 12/11/23 History
icosapent ethyl 1 gram capsule 2 g PO BID High Cholesterol 12/23/22 12/11/23 History
(Vascepa)
lidocaine-prilocaine 2.5 %-2.5 % 1 applic topical MOWEFR PRN port 12/23/22 12/11/23 History
topical cream access
nifedipine 60 mg tablet,extended 60 mg PO BID Blood Pressure #0 tabs 02/13/23 12/11/23 Rx
release
sevelamer carbonate 800 mg tablet 1,600 mg PO MEALS Kidney Disease 03/30/23 12/11/23 History
bumetanide 2 mg tablet 2 mg PO SUTUTHSA@0800,1900 Fluid 07/29/23 12/11/23 History
Retention/Swelling
insulin degludec 100 unit/mL 6 unit SC HS Diabetes 07/29/23 12/11/23 History
subcutaneous solution (Tresiba
U-100 Insulin)
losartan 100 mg tablet 100 mg PO BID Blood Pressure 07/29/23 12/11/23 History
sertraline 100 mg tablet 100 mg PO DAILY Mental Health 07/29/23 12/11/23 History
vitamin B complex-vitamin C 100 1 tab PO DAILY Supplement 07/29/23 12/11/23 History
mg-folic acid 1 mg tablet
(Dialyvite)
gabapentin 100 mg capsule 100 mg PO HS Pain 09/09/23 12/11/23 History
pantoprazole 40 mg tablet,delayed 40 mg PO BID Gastrointestinal Issue 09/09/23 12/11/23 History
release (Protonix)
spironolactone 25 mg tablet 25 mg PO DAILY Blood pressure #30 05/29/24 08/23/24 Rx
tabs
Lactobac no.2-Bifidobac no.1-S. 1 cap PO DAILY 10/29/23 12/11/23 History
thermo 112.5 billion cell capsule
(Visbiome)
acetaminophen 500 mg tablet 1,000 mg PO Q6HPRN PRN mild pain 10/29/23 12/11/23 History
(Tylenol Extra Strength)
clonidine HCl 0.2 mg tablet 0.2 mg PO TID Blood pressure 10/29/23 12/11/23 History
hydralazine 100 mg tablet 100 mg PO TID Blood Pressure 10/29/23 12/11/23 History
warfarin 3 mg tablet 4 mg PO MOTUWETHFRSA@2200 Blood 10/29/23 12/11/23 History
Clot Prevention/Tx
insulin lispro 100 unit/mL 0 sliding scale dose SC AC 12/11/23 12/11/23 History
subcutaneous pen
ondansetron HCl 4 mg tablet 4 mg PO Q8HPRN PRN NAUSEA 12/11/23 12/11/23 History
Review of Systems
-
Shortness of breath. No chest pain, headache
All other systems: Negative unless noted
Physical Exam
Vital Signs
Vital Signs
Temp Pulse Resp BP Pulse Ox
98.5 F 85 19 197/85 95
12/30/23 17:57 12/30/23 18:00 12/30/23 18:00 12/30/23 18:00 12/30/23 17:57
Lab Results
WBC 8.5 10^3/uL (4.8-10.8) 12/30/23 11:
RBC 4.39 10^6/uL (4.70-6.10) L 12/30/23 11:23
Hgb 10.8 g/dL (13.0-18.0) L 12/30/23 11:
Hct 34.8 % (39.0-52.0) L 12/30/23 11:23
Plt Count 353 10^3/uL (130-400) 12/30/23 11:
Sodium 136 mmol/L (135-145) 12/30/23 11:
Potassium 4.3 mmol/L (3.5-5.1) 12/30/23:
Chloride 92 mmol/L (98-107) L 12/30/23:
Carbon Dioxide 32 mmol/L (22-30) H 12/30/23:
BUN 52 mg/dl (9-20) H 12/30/23:
Creatinine 4.7 mg/dL (0.7-1.3) H* 12/30/23:
eGFR 13.54 12/30/23:
Glucose 152 mg/dl (70-99) H 12/30/23:
Calcium 8.6 mg/dl (8.4-10.2) 12/30/23:
Albumin 3.2 g/dl (3.5-5.0) L 12/30/23:
Physical Exam
Patient is awake alert oriented and in no distress. Mood and affect were pleasant, insight and judgment were good. Pupils are equal round and reactive to light, extraocular movements are intact, sclera were anicteric. Hearing was normal, ears and
nose are intact. Oropharynx was clear. Neck was supple with trachea midline and no thyromegaly. Heart was regular rate and rhythm without rubs. Lower extremities without edema. Lungs were clear to auscultation bilaterally and with normal
excursion. Abdomen was soft, nontender, with normal active bowel sounds, and no hepatosplenomegaly. Skin was without rash and with normal turgor.
Data Reviewed
-
Radiology: Image Personally Visualized and interpreted (Chest x-ray on 12/30/2023 by reading shows small right effusion, cardiomegaly, vascular congestion)
Medical Tests (Nuc Med, Echo etc): Image Personally Visualized and interpreted (EKG on 12/30/2023 by my read shows normal sinus rhythm right bundle branch block)
Labs: Labs Reviewed by me
Old Records: Reviewed
Assessment/Plan
-
Impression:
Anemia
ESRD on hemodialysis TTS [facility]
Chronic HFpEF
History of bilateral pleural effusions status post thoracentesis
History of pericardial effusion status post pericardiocentesis
Coronary artery disease
Paroxysmal atrial fibrillation
Essential hypertension
DM2 with multiple microvascular complications
Hyperlipidemia
Spinal stenosis
Anxiety/depression
L radial AVF
Plan:
Hemodialysis tomorrow, orders provided
Fluid restriction
Follow INR, eventual paracentesis
May continue outpatient medications including diuretics
--- NOTE | 2023-12-30 19:26 | PTCARENOTE ---
Pt received from ED to rm [id number]. Pt oriented to room and call nieto.
[2023-12-30] MEDS: PROCARDIA XL (EXTENDED RELEASE) 60 MG PO (20:09)
[2023-12-30] MEDS: PROTONIX 40 MG PO (20:09)
[2023-12-30] MEDS: COZAAR 100 MG PO (20:09)
[2023-12-30 20:12] LABS: Glucose - Point of Care 100 mg/dl (70-99)
[2023-12-30 21:40] LABS: Glucose - Point of Care 117 mg/dl (70-99)
[2023-12-30] MEDS: LANTUS SC ×2 (22:20→22:28)
[2023-12-30] MEDS: CATAPRES 0.2 MG PO (22:21)
[2023-12-30] MEDS: NEURONTIN 100 MG PO (22:21)
--- NOTE | 2023-12-30 22:49 | W.PN.UPDATE ---
Update Note
Progress Note Update
Patient refused scheduled dose of Lantus of 6 units and requested 3 units of Lantus for tonight, current bs is 117.
[2023-12-30] MEDS: DILAUDID 0.25 MG IV (23:12)
[2023-12-30] MEDS: LANTUS 0.03 UNITS SC (23:12)
[2023-12-31] VITALS (7 sets, daily range): BP systolic 111–168; BP diastolic 54–80; BMI 26.5
[2023-12-31 07:34] LABS: Glucose - Point of Care 58 mg/dl (70-99)
[2023-12-31 07:53] LABS: Glucose - Point of Care 97 mg/dl (70-99)
[2023-12-31 08:35] LABS: Hematocrit 30.5 % (39.0-52.0); Hemoglobin 9.6 g/dL (13.0-18.0); Mean Corp Hgb Conc. 31.5 g/dL (33.0-37.0); Mean Corpuscular Hgb 24.8 pg (27.0-31.0); Mean Corpuscular Volume 78.8 fL (80.0-94.0); Mean Platelet Volume 9.6 fL (7.4-10.4); Platelet Count 351 10^3/uL (130-400); Red Blood Cell Count 3.87 10^6/uL (4.70-6.10); Red Cell Dist. Width 18.4 % (11.5-14.5); White Blood Cell Count 8.4 10^3/uL (4.8-10.8)
[2023-12-31 08:48] LABS: INR 3.76; PT 37.8 Sec (11.4-14.6)
[2023-12-31 08:49] LABS: APTT 87.7 Sec (23.4-35.0)
[2023-12-31 09:02] LABS: NT-proBNP > 27000 pg/ml
[2023-12-31] MEDS: NOVOLOG FLEXPEN-LOW RESISTANCE SC ×2 (09:08→12:34)
[2023-12-31] MEDS: CATAPRES PO (09:09)
[2023-12-31] MEDS: APRESOLINE PO (09:09)
[2023-12-31] MEDS: BUMEX PO (09:10)
[2023-12-31] MEDS: RENVELA PO ×2 (09:11→12:31)
[2023-12-31] MEDS: COZAAR PO (09:11)
[2023-12-31] MEDS: PROCARDIA XL (EXTENDED RELEASE) PO (09:11)
[2023-12-31] MEDS: RETACRIT 4000 UNITS IV (09:23)
[2023-12-31 09:35] LABS: ALT (SGPT) 11 U/L (0-50); AST (SGOT) 26 U/L (17-59); Alkaline Phosphatase 142 U/L (38-126); Blood Urea Nitrogen 63 mg/dl (9-20); Calcium 8.5 mg/dl (8.4-10.2); Carbon Dioxide 29 mmol/L (22-30); Chloride 93 mmol/L (98-107); Estimated Creatinine Clearance 14 ml/min; Glucose 106 mg/dl (70-99); Magnesium 2.2 mg/dl (1.6-2.3); Potassium 4.7 mmol/L (3.5-5.1); Sodium 135 mmol/L (135-145); Total Bilirubin 0.7 mg/dl (0.2-1.3); Total Protein 6.4 g/dl (6.3-8.2)
[2023-12-31 10:55] LABS: Glucose - Point of Care 93 mg/dl (70-99)
--- NOTE | 2023-12-31 11:30 | W.PN.HOSP.TC ---
Addendum entered and electronically signed by Elizabeth Rocha MD 12/31/23 18:05:
I saw and evaluated the patient independently. I reviewed the resident�s note and agree with findings and plan as documented by Dr. Farr.
GENERAL: Chronically ill male in no apparent distress although does appear somewhat winded but able to converse with complete sentences
HEENT: NC/AT no oxygen requirements at this time
HEART: Irregularly irregular, murmur noted
LUNGS : Limited exam, decreased breath sounds at bases bilaterally
ABDOM: soft, nontender, distended with ascitic fluid wave present, + bowel sounds
EXT: no cyanosis, clubbing--2+ lower extremity edema bilaterally--left forearm with fistula, positive bruit, positive thrill
NEUROLOGIC: Grossly intact
SKIN: Appears to have some pinkish discoloration of his abdomen, but does not have the appearance of overt cellulitis
Increased abdominal distention--likely due to ascites--unable to do paracentesis due to INR of 3.2--hold warfarin for now, follow PT/INR, will give small dose of Vit K---anticipate paracentesis with appropriate studies looking for spontaneous
bacterial peritonitis (although patient without fevers and abdomen essentially nontender)--does not appear to have a diagnosis of cirrhosis, reviewed previous CAT scan of the abdomen and pelvis from August 2023, abdominal ultrasound does show
cirrhosis--suspected all due to poor volume management (cardiogenic/cardiorenal) and likely needs more aggressive fluid removal with dialysis---follow daily weights and I's and O's--ammonia level is less than 9
ESRD--Thursday, , Thursday--consult nephrology--continue renal medications
Paroxysmal A-fib--hold warfarin for now--rate controlled
Essential hypertension--blood pressure is elevated--likely due to combination of pain, uncontrolled volume status--continue medications including diuretics, dialysis , pain control, IV hydralazine as well
Chronic back pain with chronic opioid use/dependency--continue oxycodone
Type 2 diabetes mellitus with neuropathy--continue insulin coverage with sliding scale, check hemoglobin W1x--skietduv standing insulin as able--continue gabapentin although may need to be adjusted for dialysis
Anemia of chronic disease, likely due to renal failure--hemoglobin appears at baseline
DVT prophylaxis SCDs
CODE STATUS full code
Original Note:
Today's Communication/Plan
-
Hemodialysis
Given vitamin K
Assessment / Plan
Assessment / Plan
IMPRESSION:
58-year-old male with new onset ascites and elevated INR, requiring serial paracentesis
PLAN:
#Abdominal distention
Etiology unknown
INR 3.27 on admission
INR 3.76 today
Prescribed vitamin K
Hold warfarin and continue to monitor
IR to paracentesis after INR has decreased
GI consult
Complete abdomen ultrasound pending
Consider anticoagulating patient if INR drops below 2
Monitor electrolytes, magnesium, phosphate, CMP
Daily weights
Monitor ins and outs
Daily coag studies
#ESRD
Patient gets dialysis Thursday
Patient received HD today, next session will be Thursday
Nephrology recommended fluid restriction, continuing outpatient meds including diuretics
#A-fib
Patient and A-fib currently, irregular on exam
Currently holding anticoagulation
#Hypertension
Pressures improving 162/73 today
Patient's blood pressure is extremely elevated, blood pressure 199/105 in ED
Continue patient's home blood pressure meds
Hydralazine for breakthrough hypertension
#Shortness of breath
Likely secondary to abdominal distention
Patient satting well
#Back pain
Patient has extensive back problems
Takes chronic opioids for back problems
Oxycodone for moderate pain
Dilaudid for severe pain
Diet: Sodium, potassium restricted diabetic
DVT prophylaxis SCDs
CODE STATUS full code
Anticipated Discharge: 24 - 48 hours
Subjective/Interval History
-
Date of Service: December 31, 2023
Patient receiving hemodialysis today
Objective Data
-
Labs:
Laboratory Results
12/31/23 12/31/23
06:00 Unknown
WBC Pending 8.4
Hgb Pending 9.6 L
Hct Pending 30.5 L
Plt Count Pending 351
PT 37.8 H
INR 3.76
APTT 87.7 H
Sodium 135
Potassium 4.7
Chloride 93 L
Carbon Dioxide 29
BUN 63 H
Creatinine 5.9 H*
Glucose 106 H
Calcium 8.5
Total Bilirubin 0.7
AST 26
ALT 11
Alkaline Phosphatase 142 H
Vital Signs:
Vital Signs
Temp Pulse Resp BP Pulse Ox
97.4 F 86 18 162/73 94
12/31/23 11:16 12/31/23 11:16 12/31/23 11:16 12/31/23 11:16 12/31/23 11:16
I&O
12/30/23 12/31/23 01/01/24
06:59 06:59 06:59
Intake Total 480 / 480
Output Total 0 / 0
Balance 480 / 480
Review of Systems
-
Constitutional: Reports No Symptoms
Respiratory: Reports No Symptoms
Cardiac: Reports No Symptoms
Abdomen/GI: Reports No Symptoms
Physical Exam
-
General: Well Developed, Well Nourished, No Apparent Distress and Comfortable
Respiratory: Clear to Auscultation
Cardiac: Regular Rhythm and S1/S2
GI: Soft, Nontender, Nondistended and Normal Bowel Sounds
Skin: Warm and Dry
Neuro: Awake, Alert, Oriented and AO x 3
Psych: Calm and Intact Judgement/Insight
Data Reviewed
-
Labs: Labs Reviewed by me and Discussed with Physician
--- NOTE | 2023-12-31 11:51 | W.PN.NEPH.HD ---
Assessment
-
Seen on HD. no complaints. await improvement in INR for paracentesis, VSS, access ok
Progress Note - Hemodialysis
-
Date of Service: December 31, 2023
Duration: 45 minutes and 3 hours
Potassium Bath: 2
Calcium Bath: 2.5
Opti-Dialyzer: 160
Ultrafiltration: Other (3.5)
Blood Flow: 400
Dialysate Flow: 600
Heparin: 0
EPO: 4000 units
[2023-12-31] MEDS: PROTONIX 40 MG PO ×2 (12:30→19:46)
[2023-12-31] MEDS: MEPHYTON 2.5 MG PO (12:30)
[2023-12-31] MEDS: ALDACTONE 25 MG PO (12:31)
[2023-12-31] MEDS: APRESOLINE 100 MG PO ×2 (12:32→21:49)
[2023-12-31] MEDS: CATAPRES 0.2 MG PO ×2 (12:33→21:48)
[2023-12-31] MEDS: BUMEX 2 MG PO (12:34)
--- NOTE | 2023-12-31 13:28 | CM ---
Addendum entered by Sindhu Deluca 12/31/23 14:29:
LARSON completed.
Original Note:
Patient seen bedside.
S/p HD today.
INR elevated, await paracentesis.
patient lives with his cousin in a split level home, 8 steps to enter.
Patient reports having two walkers at home.
PT/OT evaluations pending
Patient had [facility] in the past and was in [facility].
Patient on HD M-W-F @ [facility].
Per patient he has a relative that has a nursing agency and they will be providing services.
PCP Rosemarie Paige
Pharmacy [facility]
Plan: await recommendations by therapy
[2023-12-31 16:49] LABS: Glucose - Point of Care 158 mg/dl (70-99)
[2023-12-31] MEDS: RENVELA 1600 MG PO (17:55)
[2023-12-31] MEDS: NOVOLOG FLEXPEN-LOW RESISTANCE 1 UNITS SC (17:55)
[2023-12-31] MEDS: COZAAR 100 MG PO (19:46)
[2023-12-31] MEDS: PROCARDIA XL (EXTENDED RELEASE) 60 MG PO (19:46)
[2023-12-31 21:25] LABS: Glucose - Point of Care 205 mg/dl (70-99)
[2023-12-31] MEDS: LANTUS 0.06 UNITS SC (21:49)
[2023-12-31] MEDS: NEURONTIN 100 MG PO (21:49)
--- NOTE | 2023-12-31 23:00 | PTCARENOTE ---
Pt found in room without peripheral IV access. When asked about peripheral IV, pt stated that he pulled out the IV line because it was 'uncomfortable' and threw it in the trash. When asked if another peripheral IV could be placed, pt said he does
'not want another IV line right now, and will wait until it is necessary.' At this time, no scheduled medications have route by IV. Pt's refusal of peripheral IV documented; will continue to monitor.
[2024-01-01] VITALS (9 sets, daily range): BP systolic 80–170; BP diastolic 56–76; PULSE 73–89; O2SAT 94–97; BMI 25.6
[2024-01-01 02:55] LABS: Glucose - Point of Care 132 mg/dl (70-99)
[2024-01-01 07:27] LABS: Glucose - Point of Care 52 mg/dl (70-99)
[2024-01-01 07:43] LABS: Hemoglobin 9.9 g/dL (13.0-18.0); Mean Corp Hgb Conc. 30.9 g/dL (33.0-37.0); Mean Corpuscular Hgb 24.7 pg (27.0-31.0); Mean Corpuscular Volume 79.8 fL (80.0-94.0); Mean Platelet Volume 9.1 fL (7.4-10.4); Platelet Count 360 10^3/uL (130-400); Red Blood Cell Count 4.01 10^6/uL (4.70-6.10); Red Cell Dist. Width 18.1 % (11.5-14.5); White Blood Cell Count 7.9 10^3/uL (4.8-10.8)
[2024-01-01 07:46] LABS: Glucose - Point of Care 75 mg/dl (70-99)
[2024-01-01] MEDS: RENVELA 1600 MG PO ×3 (07:56→17:32)
[2024-01-01] MEDS: NOVOLOG FLEXPEN-LOW RESISTANCE SC ×3 (07:56→16:40)
[2024-01-01] MEDS: ALDACTONE 25 MG PO (07:57)
[2024-01-01] MEDS: PROCARDIA XL (EXTENDED RELEASE) 60 MG PO (07:57)
[2024-01-01] MEDS: PROTONIX 40 MG PO (07:57)
[2024-01-01] MEDS: COZAAR 100 MG PO (07:57)
[2024-01-01] MEDS: APRESOLINE 100 MG PO ×2 (07:57→17:32)
[2024-01-01] MEDS: CATAPRES 0.2 MG PO ×2 (07:57→17:32)
--- NOTE | 2024-01-01 08:11 | PTCARENOTE ---
Assumed care at 0700. AOx3, drowsy, arousable to voice. Flat affect. BP elevated, given scheduled AM meds, will reassess. Reports 'a couple loose stools' overnight. Order for stool specimen noted.
[2024-01-01 08:15] LABS: PT 19.8 Sec (11.4-14.6)
[2024-01-01 08:17] LABS: APTT 58.1 Sec (23.4-35.0)
[2024-01-01 08:35] LABS: ALT (SGPT) 13 U/L (0-50); AST (SGOT) 32 U/L (17-59); Alkaline Phosphatase 181 U/L (38-126); Blood Urea Nitrogen 41 mg/dl (9-20); Calcium 8.8 mg/dl (8.4-10.2); Carbon Dioxide 29 mmol/L (22-30); Chloride 97 mmol/L (98-107); Estimated Creatinine Clearance 18 ml/min; Glucose 48 mg/dl (70-99); Magnesium 2.2 mg/dl (1.6-2.3); Sodium 140 mmol/L (135-145); Total Bilirubin 0.7 mg/dl (0.2-1.3); Total Protein 6.6 g/dl (6.3-8.2); eGFR 13.89
[2024-01-01 09:01] LABS: Glucose - Point of Care 71 mg/dl (70-99)
[2024-01-01 10:30] LABS: Glycohemoglobin (HgbA1c) 5.2 % (4.0-5.6)
[2024-01-01 11:10] LABS: Body Fluid Albumin 1.5 g/dl; Body Fluid Amylase < 30 U/L; Body Fluid LDH 129 U/L; Body Fluid Protein 3.4 g/dl
[2024-01-01 11:30] LABS: Body Fluid Mononuclear 66.8 %; Body Fluid Polymorphonuclear 33.2 %; Body Fluid WBC 741 /CUMM
[2024-01-01 11:37] LABS: Body Fluid Second Tech CF
[2024-01-01] MEDS: COUMADIN 4 MG PO (12:49)
[2024-01-01] MEDS: FLEXBUMIN 100 IV (12:50)
[2024-01-01] MEDS: DILAUDID 0.5 MG IV (13:04)
[2024-01-01 13:21] LABS: Glucose - Point of Care 137 mg/dl (70-99)
--- NOTE | 2024-01-01 13:26 | W.PN.HOSP.TC ---
Addendum entered and electronically signed by Elizabeth Rocha MD 01/01/24 15:18:
I saw and evaluated the patient independently. I reviewed the resident�s note and agree with findings and plan as documented by Dr. Farr.
GENERAL: Chronically ill male in no apparent distress although does appear somewhat winded but able to converse with complete sentences
HEENT: NC/AT no oxygen requirements at this time
HEART: Irregularly irregular, murmur noted
LUNGS : Limited exam, decreased breath sounds at bases bilaterally
ABDOM: soft, nontender, distended but much improved, + bowel sounds
EXT: no cyanosis, clubbing--2+ lower extremity edema bilaterally--left forearm with fistula, positive bruit, positive thrill
NEUROLOGIC: Grossly intact
SKIN: Appears to have some pinkish discoloration of his abdomen, but does not have the appearance of overt cellulitis
Increased abdominal distention--likely due to ascites--held warfarin s/p Vit K, INR 1.70---s/p paracentesis (6400mls)-- no spontaneous bacterial peritonitis-- reviewed previous CAT scan of the abdomen and pelvis from August 2023, but abdominal
ultrasound does show cirrhosis--suspected all due to poor volume management (cardiogenic/cardiorenal) and likely needs more aggressive fluid removal with dialysis---follow daily weights and I's and O's
ESRD--Thursday, , Thursday--consult nephrology--continue renal medications
Paroxysmal A-fib--restart warfarin
Essential hypertension--blood pressure is elevated--likely due to combination of pain, uncontrolled volume status--continue medications including diuretics, dialysis , pain control, IV hydralazine as well
Chronic back pain with chronic opioid use/dependency--continue oxycodone
Type 2 diabetes mellitus with neuropathy--continue insulin coverage with sliding scale, check hemoglobin C5i--osrtqqmk standing insulin as able--continue gabapentin although may need to be adjusted for dialysis
Anemia of chronic disease, likely due to renal failure--hemoglobin appears at baseline
DVT prophylaxis SCDs
CODE STATUS full code
Original Note:
Today's Communication/Plan
-
Patient medically cleared to discharge, currently patient wants more time before leaving the hospital
Continue working with PT OT
Assessment / Plan
Assessment / Plan
IMPRESSION:
58-year-old male with new onset ascites and elevated INR, requiring serial paracentesis
PLAN:
#Abdominal distention
Likely from to cirrhosis secondary to heart/kidney failure and fluid overload
INR 3.27 on admission
INR 1.70 today
Status post vitamin K
Patient received paracentesis today yielding 6450 mL of ascitic fluid
Albumin repleted per protocol
Complete abdominal ultrasound yielded that the patient has a cirrhotic liver
Restarted patient on home dose warfarin p.o.
Monitor electrolytes, magnesium, phosphate, CMP
Daily weights
Monitor ins and outs
Daily coag studies
After paracentesis, patient medically cleared to be discharged and to follow-up with his physicians and/or establish care with [facility] physician. Currently patient requesting more time before discharging
#ESRD
Patient gets dialysis Thursday
Patient received HD , next session will be Thursday
Nephrology recommended fluid restriction, continuing outpatient meds including diuretics
#A-fib
Patient and A-fib currently, irregular on exam
Restarted patient on home warfarin
#Hypertension
Pressures improving 140/61 today
Patient's blood pressure is extremely elevated, blood pressure 199/105 in ED
Continue patient's home blood pressure meds
Hydralazine for breakthrough hypertension
#Shortness of breath
Likely secondary to abdominal distention and volume overload
Patient satting well
PT OT [facility] patient, currently patient does not want to pursue rehab
#Back pain
Patient has extensive back problems
Takes chronic opioids for back problems
Oxycodone for moderate pain
Dilaudid for severe pain
Diet: Sodium, potassium restricted diabetic
DVT prophylaxis SCDs
CODE STATUS full code
Anticipated Discharge: Within 24 hours
Subjective/Interval History
-
Date of Service: January 01, 2024
Patient received paracentesis
Hemodialysis planned for tomorrow if patient still in hospital
Objective Data
-
Labs:
Laboratory Results
01/01/24
07:06
WBC 7.9
Hgb 9.9 L
Hct 32.0 L
Plt Count 360
PT 19.8 H
INR 1.70 D
APTT 58.1 H
Sodium 140
Potassium 4.0
Chloride 97 L
Carbon Dioxide 29
BUN 41 H
Creatinine 4.6 H*
Glucose 48 L*
Calcium 8.8
Total Bilirubin 0.7
AST 32
ALT 13
Alkaline Phosphatase 181 H
Vital Signs:
Vital Signs
Temp Pulse Resp BP Pulse Ox
98.3 F 92 12 140/61 97
01/01/24 10:07 01/01/24 11:00 01/01/24 11:00 01/01/24 11:00 01/01/24 11:00
I&O
12/31/23 01/01/24 01/02/24
06:59 06:59 06:59
Intake Total 480 / 480 1140 / 1140
Output Total 0 / 0 50 / 50
Balance 480 / 480 1090 / 1090
Review of Systems
-
Constitutional: Reports No Symptoms
Respiratory: Reports No Symptoms
Cardiac: Reports No Symptoms
Abdomen/GI: Reports No Symptoms
Physical Exam
-
General: Comfortable, Conversant and Appears Chronically Ill
HEENT: Negative Oxygen
Respiratory: Clear to Auscultation
Cardiac: S1/S2, Irregular Rhythm and Murmur
GI: Soft, Nontender, Normal Bowel Sounds, Distended and Other (Ascitic fluid wave present)
Skin: Warm and Dry
Neuro: Awake, Alert, Oriented and AO x 3
Psych: Calm and Intact Judgement/Insight
Data Reviewed
-
Medical Tests (Nuc Med, Echo etc): Report Reviewed by me and Discussed with Physician
Labs: Labs Reviewed by me and Discussed with Physician
[2024-01-01] MEDS: FLEXBUMIN 50 IV (14:44)
--- NOTE | 2024-01-01 14:45 | W.PN.NEPH.PH ---
Today's Communication / Plan
-
HD tomorrow if still here
Assessment/Plan
-
Impression:
Anemia
ESRD on hemodialysis [facility]
Chronic HFpEF
History of bilateral pleural effusions status post thoracentesis
History of pericardial effusion status post pericardiocentesis
Coronary artery disease
Paroxysmal atrial fibrillation
Essential hypertension
DM2 with multiple microvascular complications
Hyperlipidemia
Spinal stenosis
Anxiety/depression
L radial AVF
Cirrhosis of liver on US
Plan:
Hemodialysis tomorrow if still here
Fluid restriction strictly 33ounces/day
s/p paracentesis 6.4lit
US shows cirrhosis -felt to be cardiac
continue outpatient medications including diuretics
BP stable
-
-
Date of Service: January 01, 2024
CC / HPI / ROS
-
Chief Complaint:
ESRD
History of Present Illness:
s/p paracentesis 6.5lit
hb stable 9.9
BP stable, no fever
hypoglycemia this am- improving
Review of Systems:
mild sob still
no n/v
void only once daily
not sure if restricts fluids
Labs
-
Labs:
WBC 7.9 10^3/uL (4.8-10.8) 01/01/24 07:06
RBC 4.01 10^6/uL (4.70-6.10) L 01/01/24 07:06
Hgb 9.9 g/dL (13.0-18.0) L 01/01/24 07:06
Hct 32.0 % (39.0-52.0) L 01/01/24 07:06
Plt Count 360 10^3/uL (130-400) 01/01/24 07:06
Sodium 140 mmol/L (135-145) 01/01/24 07:06
Potassium 4.0 mmol/L (3.5-5.1) 01/01/24 07:06
Chloride 97 mmol/L (98-107) L 01/01/24 07:06
Carbon Dioxide 29 mmol/L (22-30) 01/01/24 07:06
BUN 41 mg/dl (9-20) H 01/01/24 07:06
Creatinine 4.6 mg/dL (0.7-1.3) H* 01/01/24 07:06
eGFR 13.89 01/01/24 07:06
Glucose 48 mg/dl (70-99) L* 01/01/24 07:06
Calcium 8.8 mg/dl (8.4-10.2) 01/01/24 07:06
Qda-T-Kvwbstohqsz Pept > 32562 pg/ml 12/31/23 Unknown
Albumin 3.0 g/dl (3.5-5.0) L 01/01/24 07:06
Physical Exam
-
Vital Signs:
Vital Signs
Temp Pulse Resp BP Pulse Ox
98.3 F 92 12 140/61 97
01/01/24 10:07 01/01/24 11:00 01/01/24 11:00 01/01/24 11:00 01/01/24 11:00
Cardiovascular:: Regular rate and rhythm
Respiratory:: Bilateral: CTA
Abdomen:: Distended, Nontender and Soft
Extremity Edema:: +1: Bilateral:
Alfred Catheter: No
--- NOTE | 2024-01-01 16:00 | CM ---
Addendum entered by Sindhu Deluca 01/01/24 16:10:
Plan: home with [facility]
[phone]
Original Note:
Patient seen bedside.
patient plans home with [facility]. he would like to use a family and will set it up when he is home.
CM recommended skilled rehab and patient declined.
CM recommended and patient did agree to home with [facility], referral placed.
patient stated he did not feel ready for d/c. still felt short or breath and needed his stools checked.
TT to MD.
Plan: home with [facility] when stable, patient says he has transportation home.
--- NOTE | 2024-01-01 16:14 | W.DCSUMMARY ---
Addendum entered and electronically signed by Elizabeth Rocha MD 01/01/24 17:45:
Read, reviewed, and agree. See same day progress note for additional details. Time spent coordinating care, DC planning, review of DC plan of care with resident, transition of care, review of records in EMR, med rec, consults, notes, d/w
consultants, nursing, family, and CM = 31 minutes.
Original Note:
Discharge Summary
Discharge Data
Date of Admission: 12/30/23
Date of Discharge: 01/01/24
-
Pending Results: No
Hospital Course
Discharging Physician : Josefina Farr
Disposition : Home
Primary care physician : Dr. Paige
Principal Discharge diagnosis : Abdominal ascites
Chronic Discharge diagnosis : Liver cirrhosis, end-stage renal disease�hemodialysis dependent, atrial fibrillation on anticoagulation, chronic back pain, essential hypertension, diabetes mellitus�insulin-dependent with neuropathy, anemia of chronic
disease, abdominal distention
Hospital Course : 58-year-old male past medical history including CAD, A-fib on Coumadin, insulin requiring diabetes mellitus, end-stage renal disease on hemodialysis, heart failure. Presented to the [facility] IR department for a scheduled
paracentesis. Patient has been getting serial paracentesis sees for the past couple months. Patient has new onset ascites which has been developing over the past couple months. Patient does report worsening chronic abdominal distention, pain and
shortness of breath. In the IR department it was found the patient's INR was 3.27 therefore it was too elevated to undergo the procedure at that time. Patient was sent to the emergency department, patient's blood pressure in the emergency
department were also noted to be 199/105. Patient's INR, PT and PTT were all noted to be elevated. Patient was admitted to telemetry for observation. Patient's warfarin was held to attempt to decrease his INR so he could get his paracentesis.
Patient was also scheduled to receive dialysis during his stay. Patient received 1 session of dialysis on , 12/31/2023. Patient typically receives dialysis on TTS. During the first day of his hospitalization, patient's INR was noted to
have increased even though off warfarin. Patient was given vitamin K to decrease INR. INR subsequently decreased the next day and patient was able to receive paracentesis. 6450 cc of ascitic fluid was removed from patient's abdomen. Albumin was
given per protocol. Of note ultrasound of the abdomen, complete was performed and demonstrated the patient had cirrhosis. It is thought cirrhosis is secondary to fluid overload from his heart and renal failure. Conversation was had with patient
regarding his performance status, PT OT recommended that the patient go to usp facility for discharge as he is deconditioned, appears weak and is functionally impaired and unsteady. Patient continued to be short of breath with exertion
and they felt he would be a good candidate for physical rehab. This was discussed with the patient however patient refused rehab and wanted to be discharged home. Patient will be discharged home with follow-up with his primary care physician for
management of his medications and chronic medical conditions.
Important imaging findings :
12/30/2023 chest x-ray, impressions:
Mild CHF. Small partially loculated right pleural effusion.
12/31/2023 abdominal ultrasound complete, impressions:
Linear of increased echogenicity and shadowing within the gallbladder lumen, compatible with a layer of gallstones. No evidence for gallbladder wall thickening, with a negative sonographic Lora's sign.
No evidence for intrahepatic bile duct dilation. The common bile duct is unable to be visualized.
Nodular contour of the liver, compatible with cirrhosis. No evidence of a focal hepatic lesion.
Spleen size is in the upper range of normal.
The pancreas is unable to be visualized.
The left kidney is unable to be visualized. Moderate diffuse atrophy of the right kidney with no evidence for pelvicalyceal dilation.
Moderate ascites.
Right pleural effusion is present.
Procedure findings :
01/01/2024 paracentesis, findings and impression:
FINDINGS: 6450 cc of clear matias ascitic fluid was evacuated. Samples sent for analysis as requested.
IMPRESSION: Successful ultrasound guided diagnostic and therapeutic paracentesis.
Discharge Plan
-
Patient Disposition: Home (Routine Discharge)
Discharge Diagnosis/Procedures: Abdominal ascites
Condition: Fair
Diet: Other diet
Additional Diets: Low sodium, low potassium, diabetic diet
Activity: As tolerated
Driving Restrictions: As prior to admission
Bathing Restrictions: None
Other Services: PT and OT
Activity Restrictions/Additional Instructions:
Please follow-up with your primary care physician within 1 week of discharge for further management of your medications and chronic health conditions
Referrals:
Rosemarie Paige DO [Family Provider] - in less than 1 week
Prescriptions:
Continued
atorvastatin 80 mg Tablet
80 mg PO HS
icosapent ethyl [Vascepa] 1 gram Capsule
2 g PO BID
lidocaine-prilocaine 2.5-2.5 % Cream
1 applic TOPICAL MOWEFR PRN (Reason: port access)
nifedipine 60 mg Tablet Extended Release
60 mg PO BID Qty: 0 0RF
sevelamer carbonate 800 mg tablet
1,600 mg PO MEALS
bumetanide 2 mg tablet
2 mg PO SUTUTHSA@0800,1900
sertraline 100 mg tablet
100 mg PO DAILY
losartan 100 mg tablet
100 mg PO BID
Dialyvite 100-1 mg tablet
1 tab PO DAILY
insulin degludec [Tresiba U-100 Insulin] 100 unit/mL solution
6 unit SC HS
pantoprazole [Protonix] 40 mg tablet,delayed release (DR/EC)
40 mg PO BID
gabapentin 100 mg capsule
100 mg PO HS
spironolactone 25 mg Tablet
25 mg PO DAILY Qty: 30 0RF
warfarin 3 mg Tablet
4 mg PO MOTUWETHFRSA@2200
Visbiome 112.5 billion cell Capsule
1 cap PO DAILY
acetaminophen [Tylenol Extra Strength] 500 mg tablet
1,000 mg PO Q6HPRN PRN (Reason: mild pain)
clonidine HCl 0.2 mg tablet
0.2 mg PO TID
hydralazine 100 mg tablet
100 mg PO TID
ondansetron HCl 4 mg Tablet
4 mg PO Q8HPRN PRN (Reason: NAUSEA)
insulin lispro 100 unit/mL Insulin Pen
0 sliding scale dose SC AC
Rx Instructions:
150-200=2UNITS, 201-250=4UNITS, 251-300=6UNITS
Discharge Orders:
Discharge Patient (As Directed); Ordered 01/01/24
Ordered By: Devin Farr
Discharge Date and Time
Print Language: DJIBOUTIAN
[2024-01-01 16:40] LABS: Glucose - Point of Care 122 mg/dl (70-99)
== END 2024-01-01 19:15 | disposition home or self-care (01) ==
LOC: 4 WEST ACU 18:46
PROVIDERS: Physician Assistant; ADMITTING PHYSICIAN Internal Medicine; CONSULT PHYSICIAN Specialist; EMERGENCY PHYSICIAN Student in an Organized Health Care Education/Training Program; FAMILY PHYSICIAN Family Medicine
DX: R18.8 Other ascites (principal); R10.9 Unspecified abdominal pain; I13.2 Hypertensive heart and chronic kidney disease with heart failure and with stage 5 chronic kidney disease, or end stage renal disease; E11.22 Type 2 diabetes mellitus with diabetic chronic kidney disease; N18.6 End stage renal disease; K74.60 Unspecified cirrhosis of liver; I50.32 Chronic diastolic (congestive) heart failure; I48.0 Paroxysmal atrial fibrillation; R14.0 Abdominal distension (gaseous); R06.02 Shortness of breath; I25.10 Atherosclerotic heart disease of native coronary artery without angina pectoris; G89.29 Other chronic pain; F32.A Depression, unspecified; R01.1 Cardiac murmur, unspecified; R79.1 Abnormal coagulation profile; E11.42 Type 2 diabetes mellitus with diabetic polyneuropathy; M54.9 Dorsalgia, unspecified; F11.20 Opioid dependence, uncomplicated; D63.8 Anemia in other chronic diseases classified elsewhere; J90 Pleural effusion, not elsewhere classified; E11.649 Type 2 diabetes mellitus with hypoglycemia without coma; F41.9 Anxiety disorder, unspecified; I45.10 Unspecified right bundle-branch block; E78.00 Pure hypercholesterolemia, unspecified; K21.9 Gastro-esophageal reflux disease without esophagitis; R29.6 Repeated falls; Z99.2 Dependence on renal dialysis; Z79.01 Long term (current) use of anticoagulants; Z79.4 Long term (current) use of insulin; Z87.891 Personal history of nicotine dependence; Z53.09 Procedure and treatment not carried out because of other contraindication; Z88.5 Allergy status to narcotic agent
CPT/HCPCS: 49083; 71046; 76700; 80053; 82042; 82140; 82150; 82962; 83036; 83615; 83735; 83880; 84157; 85025; 85027; 85610; 85730; 87015; 87070; 87205; 89051; 93005; 97163; 97167; 99285; G0257; G0378; P9047; Q5106

== ENCOUNTER 2024-01-19 10:18 | Inpatient (IN) | payer OTHER, SELFPAY ==
[2024-01-19] VITALS (39 sets, daily range): BP systolic 167–215; BP diastolic 72–104; BMI 27.3; BMI 26.2
--- NOTE | 2024-01-19 07:33 | ED.GENMED ---
History of Present Illness
General
Chief Complaint: Breathing Problem
Source: patient
Exam Limitations: none
Time Seen by Provider: 01/19/24 07:32
History of Present Illness
History of Present Illness:
See MDM
Past History
Past History
ED Past Medical History: CAD, GERD, HTN, IDDM, Renal failure (End-stage renal disease), Psychiatric (Depression) and Other (Chronic low back pain, ambulatory dysfunction, anemia, pneumonia, pericardial effusion, pleural effusion, frequent falls,
neuropathy)
ED Past Surgical History: Other (Left arm AV graft)
Social History
Tobacco: Non-smoker
Alcohol: None
Drug: None
Personal:
Living: penitentiary
Employment: Disabled
Family History
Family History: Other (Noncontributory)
Phy Exam
Physical Exam
Physical Exam:
See MDM
Scores
Heart Failure Risk
Heart Failure Risk Score: Not Applicable
Course
Orders/Labs/Results
Orders:
Orders
01/19/24 07:09
Electrocardiogram (*1) Urgent
Reason for Study: Shortness of Breath
EKG- Treatment ONCE
01/19/24 07:22
CMP [Comprehensive Metabolic Panel] Urgent
Complete Blood Count/With Diff Urgent
NT-proBNP Urgent
Comment: ADD ON
Troponin I Urgent
01/19/24 07:32
CR Chest - 2 Views Urgent
Comment:
Reason For Exam: SOB, ESRD
01/19/24 07:33
Add On- LAB Urgent
Tests Added?: pro-BNP
01/19/24 07:37
HydrALAZINE [Apresoline] 10 mg IV NOW STA
01/19/24 08:06
Dextrose 50%-Water [Dextrose 50% Syringe] 25 grams IV NOW STA
Furosemide [Lasix] 80 mg IV NOW STA
Labetalol HCl [Trandate] 10 mg IV NOW STA
Sodium Zirconium Cyclosilicate [Lokelma] 5 gram PO NOW STA
01/19/24 08:19
Consult Nephrology [NEPHROLOGY CONSULT] Urgent
Consulting Provider: Jessica De La Fuente
Was physician already notified: Yes
01/19/24 08:45
Calcium Gluconate 1 gram/100mL [Calcium Gluconate] 1 gram in 100 ml IV ONCE
01/19/24 09:11
Bedside Glucose Monitoring-ONCE As Directed
01/19/24 12:39
Potassium Urgent
Comment: draw 4 hours after furosemide administered
Abnormal Lab Results
01/19/24
07:22
RBC 3.63 L 10^6/uL
(4.70-6.10)
Hgb 9.1 L g/dL
(13.0-18.0)
Hct 28.7 L %
(39.0-52.0)
MCV 79.1 L fL
(80.0-94.0)
MCH 25.1 L pg
(27.0-31.0)
MCHC 31.7 L g/dL
(33.0-37.0)
RDW 19.4 H %
(11.5-14.5)
Absolute Neuts (auto) 6.8 H 10^3/uL
(1.4-6.5)
Absolute Lymphs (auto) 1.0 L 10^3/uL
(1.2-3.4)
Absolute Monos (auto) 0.9 H 10^3/uL
(0.1-0.6)
Lymphocytes % 10.7 L %
(20.5-51.1)
Potassium 6.2 H* mmol/L
(3.5-5.1)
Chloride 95 L mmol/L
(98-107)
BUN 96 H mg/dl
(9-20)
Creatinine 9.3 H* mg/dL
(0.7-1.3)
Glucose 60 L mg/dl
(70-99)
Alkaline Phosphatase 273 H U/L
(38-126)
Troponin I 0.075 H* ng/ml
Albumin 3.4 L g/dl
(3.5-5.0)
01/19/24 07:22
Vital Signs
Initial and Last Documented VS:
Initial Vital Signs
Temp Pulse Resp BP Pulse Ox
97.6 F 78 18 215/93 95
01/19/24 07:10 01/19/24 07:10 01/19/24 07:10 01/19/24 07:10 01/19/24 07:10
Last Documented Vital Signs
Temp Pulse Resp BP Pulse Ox
97.6 F 68 18 197/88 94
01/19/24 07:10 01/19/24 09:00 01/19/24 07:10 01/19/24 09:00 01/19/24 09:00
MDM/Problems Addressed
Differential Diagnosis Includes:
HPI and MDM Narrative:
58-year-old male presenting for evaluation of generalized weakness and shortness of breath. Patient is on hemodialysis but he missed his scheduled dialysis on Thursday because he was not feeling well. He complains of nausea and diarrhea. Because
of the nausea, he is also not been taking all of his blood pressure medicines as prescribed. On arrival, patient found to be hypertensive. Will give dose of IV hydralazine. Patient found to have pitting edema in lower extremities but he states
this is not far from baseline. He complains of shortness of breath the lungs appear clear and he is not requiring supplemental oxygen. He is due for dialysis today. Will obtain basic blood work and chest x-ray
Physical exam
General: Weak and fatigued
HEENT: protecting airway. Dry mucous membranes
Neck: appears supple
CV: No evidence of cyanosis. Regular rate and rhythm
Resp: No accessory muscle use. Lungs clear
Abd: Non-distended
Extremities: +1 pitting edema bilateral lower extremities
Neuro: alert
Psych: Flat affect
Skin: Intact
Problems Addressed including Acute and Chronic Conditions affecting care:
1. Generalized weakness
Acuity: acute
Prognosis: stable
Details: Given his history, will obtain basic blood work to rule out hypokalemia
2. Shortness of breath
Acuity: acute
Prognosis: stable
Details: Will obtain chest x-ray
3. Hypertension
Acuity: acute
Prognosis: unstable
Details: Likely in setting of noncompliance. Will give dose of IV hydralazine
4. Hyperkalemia
Acuity: acute
Prognosis: unstable
Details: Will give IV calcium to stabilize myocardium. Will give Lokelma. Patient states he makes urine. Will give IV Lasix. Because of hypoglycemia, will avoid IV insulin
5. Hypoglycemia
Acuity: Acute
Prognosis: Unstable
Details: Likely in the setting of poor p.o. intake. Will give dextrose
Updates
After IV hydralazine, patient still hypertensive and uncontrolled. Will give IV labetalol. Patient found to be hyperkalemic. Will treat the hyperkalemia but will avoid insulin given the hyperglycemia. Will give IV dextrose
8:20 AM nephrology made aware
Differential Diagnosis (but not limited to): Hyperkalemia, end-stage renal disease, heart failure, pneumonia
Testing considered: Flu testing
Drug therapy (if applicable): OTC meds, please see d/c instruction regarding Rx drugs
Amount and/or Complexity of Data Reviewed
Clinical info obtained from: Patient
External data reviewed: N/A
Labs I independently reviewed (but not limited to): Hyperkalemia, hypoglycemia
Radiology: X-ray independently reviewed: Chest x-ray consistent with CHF
Pulse Ox: not hypoxic
EKG independently reviewed: Sinus rhythm, normal axis, no STEMI, right bundle branch block
Ballistician: Sinus rhythm
Critical Care: The high probability of a clinically significant, sudden or life threatening deterioration of the cardiovascular system(s) required my full and direct attention, intervention and personal management. The aggregate critical care time
was 33 minutes. This time is in addition to time spent performing reported procedures but includes the following:
[x] Data Review and interpretation
[x] Patient assessment and monitoring of vital signs
[x] Documentation
[x] Medication orders and management
Risk of Complication:
Social Determinants of health: Good social support
Discussed with other providers: Security Trainer, hospitalist
Escalation of Care includes Admit/Obs: Given the uncontrolled hypertension and the hyperkalemia, will admit
Occasional wrong word or 'sound a like' substitutions may have occurred due to the inherent limitations of voice recognition software. Read the chart carefully and recognize, using context, where substitutions have occurred.
*Critical Care Note
Total Time (30-74mins, 75-104mins- exclusive of procedures): 33 min
ED Attending Note
-
Portions of this chart may have been created with voice recognition software.� Occasional wrong word or��sound alike� substitutions may have occurred due to the inherent limitations of voice recognition software.
Discharge Plan
Departure
Patient Disposition: Admit
Date of Disposition: 01/19/24
Time of Disposition: 08:24
Admit to: Telemetry
Presentation/result/management discussed w/ accepting MD/DO: Hospitalist
Discharge Problem:
Hyperkalemia, Hypoglycemia, Anemia in ESRD (end-stage renal disease)
Prescriptions:
No Action
atorvastatin 80 mg Tablet
80 mg PO HS
icosapent ethyl [Vascepa] 1 gram Capsule
2 g PO BID
lidocaine-prilocaine 2.5-2.5 % Cream
1 applic TOPICAL MOWEFR PRN (Reason: port access)
nifedipine 60 mg Tablet Extended Release
60 mg PO BID Qty: 0 0RF
sevelamer carbonate 800 mg tablet
1,600 mg PO MEALS
bumetanide 2 mg tablet
2 mg PO SUTUTHSA@0800,1900
sertraline 100 mg tablet
100 mg PO DAILY
losartan 100 mg tablet
100 mg PO BID
Dialyvite 100-1 mg tablet
1 tab PO DAILY
insulin degludec [Tresiba U-100 Insulin] 100 unit/mL solution
6 unit SC HS
pantoprazole [Protonix] 40 mg tablet,delayed release (DR/EC)
40 mg PO BID
gabapentin 100 mg capsule
100 mg PO HS
spironolactone 25 mg Tablet
25 mg PO DAILY Qty: 30 0RF
warfarin 3 mg Tablet
4 mg PO MOTUWETHFRSA@2200
Visbiome 112.5 billion cell Capsule
1 cap PO DAILY
acetaminophen [Tylenol Extra Strength] 500 mg tablet
1,000 mg PO Q6HPRN PRN (Reason: mild pain)
clonidine HCl 0.2 mg tablet
0.2 mg PO TID
hydralazine 100 mg tablet
100 mg PO TID
ondansetron HCl 4 mg Tablet
4 mg PO Q8HPRN PRN (Reason: NAUSEA)
insulin lispro 100 unit/mL Insulin Pen
0 sliding scale dose SC AC
Rx Instructions:
150-200=2UNITS, 201-250=4UNITS, 251-300=6UNITS
spironolactone 25 mg Tablet
25 mg PO DAILY Qty: 30 0RF
Referrals:
Rosemarie Paige DO [Family Provider] -
Interventions
Interventions:
*Risk Screen - Suicide Last Done: 01/19/24 07:10
*General Assessment Last Done: 01/19/24 07:10
*Neglect/Abuse Screening Last Done: 01/19/24 07:10
ED- Fall Risk Assessment Last Done: 01/19/24 07:10
*ED COVID-19 Vaccine History Last Done: 01/19/24 07:10
ED- Cardiac Assessment Last Done: 01/19/24 07:10
ED- Pulmonary Assessment Last Done: 01/19/24 07:10
Discharge Date and Time
Print Language: KHMER
[2024-01-19 07:38] LABS: % Basophils 1.3 % (0-2); % Eosinophils 5.3 % (0-6); % Immature Granulocytes 0.3 % (0-0.5); % Lymphocytes 10.7 % (20.5-51.1); % Monocytes 9.3 % (1.7-9.3); % Neutrophils 73.1 % (42.2-75.2); Absolute Basophils 0.1 10^3/uL (0-0.2); Absolute Eosinophils 0.5 10^3/uL (0-0.7); Absolute Monocytes 0.9 10^3/uL (0.1-0.6); Absolute Neutrophils 6.8 10^3/uL (1.4-6.5); Hematocrit 28.7 % (39.0-52.0); Hemoglobin 9.1 g/dL (13.0-18.0); Mean Corp Hgb Conc. 31.7 g/dL (33.0-37.0); Mean Corpuscular Hgb 25.1 pg (27.0-31.0); Mean Corpuscular Volume 79.1 fL (80.0-94.0); Mean Platelet Volume 9.1 fL (7.4-10.4); Nucleated Red Blood Cells % 0 % (-); Platelet Count 313 10^3/uL (130-400); Red Blood Cell Count 3.63 10^6/uL (4.70-6.10); Red Cell Dist. Width 19.4 % (11.5-14.5); White Blood Cell Count 9.3 10^3/uL (4.8-10.8)
[2024-01-19] MEDS: APRESOLINE 10 MG IV (07:43)
[2024-01-19 08:04] LABS: ALT (SGPT) 15 U/L (0-50); AST (SGOT) 39 U/L (17-59); Albumin 3.4 g/dl (3.5-5.0); Alkaline Phosphatase 273 U/L (38-126); Blood Urea Nitrogen 96 mg/dl (9-20); Calcium 9.1 mg/dl (8.4-10.2); Carbon Dioxide 22 mmol/L (22-30); Chloride 95 mmol/L (98-107); Estimated Creatinine Clearance 9 ml/min; Glucose 60 mg/dl (70-99); Potassium 6.2 mmol/L (3.5-5.1); Sodium 135 mmol/L (135-145); Total Bilirubin 0.9 mg/dl (0.2-1.3); eGFR 5.97
[2024-01-19 08:06] LABS: Troponin I 0.075 ng/ml
[2024-01-19] MEDS: LOKELMA 5 GRAM PO (08:17)
[2024-01-19] MEDS: TRANDATE 10 MG IV (08:17)
[2024-01-19] MEDS: LASIX 80 MG IV (08:17)
[2024-01-19] MEDS: DEXTROSE 50% SYRINGE 25 GRAMS IV (08:18)
[2024-01-19 08:27] LABS: NT-proBNP > 27000 pg/ml
[2024-01-19] MEDS: CALCIUM GLUCONATE 100 IV (08:41)
--- NOTE | 2024-01-19 09:04 | HPS.HSE ---
Family Physician
-
Family Physician: Rosemarie Paige
Chief Complaint
-
shortness of breath and weakness
History of Present Illness
Mr. Lupillo Sheehan is a 58 yo man with hx ESRD on HD T//Thu, CAD, atrial fibrillation on coumadin, IDDM, essential HTN, new diagnosis of cirrhosis and ascites (hospitalization 12/29-01/01/24) presents to the ER short of breath and weak in setting
of missing last HD session on Thursday.
Patient is a poor historian. He appears fatigued. He states he missed dialysis on Thursday because he had diarrhea which is now resolved. Denies abdominal pain. No fevers/chills. + chronic LE swelling. No chest pain. + shortness of breath.
He lives at home with his cousin.
Medical History
Past Medical History
Past Medical History: Reports CHF, GERD, HTN, Hypercholesterolemia, IDDM, Renal Failure (On HD), Psychiatric and Other
Additional Past Medical History:
Depression, chronic low back pain, ambulatory dysfunction, anemia, pericardial effusion, pleural effusion, frequent falls, neuropathy, spinal stenosis.
Past Surgical History: Reports Other
Additional Past Surgical History:
Left AV fistula arm graft, back surgery
Social History
Tobacco: Former Smoker (37.5-pack-year smoking history)
Alcohol: None
Drug: None
Living: With Family
Employment: Disabled
Family History
Family History: Not pertinent
Allergies / Home Medications
Allergies reflects when Allergies were last updated in [facility].
Home Medications with original date entered in [facility]
Allergy/Medication List:
Allergies
Allergy/AdvReac Type Severity Reaction Status Date / Time
morphine Allergy Unknown Verified 12/30/23 10:33
Home Medications
atorvastatin 80 mg tablet 80 mg PO HS High Cholesterol 12/23/22
icosapent ethyl 1 gram capsule (Vascepa) 2 g PO BID High Cholesterol 12/23/22
lidocaine-prilocaine 2.5 %-2.5 % topical cream 1 applic topical MOWEFR PRN port access 12/23/22
nifedipine 60 mg tablet,extended release 60 mg PO BID Blood Pressure #0 tabs 02/13/23
sevelamer carbonate 800 mg tablet 1,600 mg PO MEALS Kidney Disease 03/30/23
bumetanide 2 mg tablet 2 mg PO SUTUTHSA@0800,1900 Fluid Retention/Swelling 07/29/23
insulin degludec 100 unit/mL subcutaneous solution (Tresiba U-100 Insulin) 6 unit SC HS Diabetes 07/29/23
losartan 100 mg tablet 100 mg PO BID Blood Pressure 07/29/23
sertraline 100 mg tablet 100 mg PO DAILY Mental Health 07/29/23
vitamin B complex-vitamin C 100 mg-folic acid 1 mg tablet (Dialyvite) 1 tab PO DAILY Supplement 07/29/23
gabapentin 100 mg capsule 100 mg PO HS Pain 09/09/23
pantoprazole 40 mg tablet,delayed release (Protonix) 40 mg PO BID Gastrointestinal Issue 09/09/23
spironolactone 25 mg tablet 25 mg PO DAILY Blood pressure #30 tabs 09/16/23
Lactobac no.2-Bifidobac no.1-S. thermo 112.5 billion cell capsule (Visbiome) 1 cap PO DAILY 10/29/23
acetaminophen 500 mg tablet (Tylenol Extra Strength) 1,000 mg PO Q6HPRN PRN mild pain 10/29/23
clonidine HCl 0.2 mg tablet 0.2 mg PO TID Blood pressure 10/29/23
hydralazine 100 mg tablet 100 mg PO TID Blood Pressure 10/29/23
warfarin 3 mg tablet 4 mg PO MOTUWETHFRSA@2200 Blood Clot Prevention/Tx 10/29/23
insulin lispro 100 unit/mL subcutaneous pen 0 sliding scale dose SC AC 12/11/23
ondansetron HCl 4 mg tablet 4 mg PO Q8HPRN PRN NAUSEA 12/11/23
spironolactone 25 mg tablet 25 mg PO DAILY Blood pressure #30 tabs 01/01/24
Review of Systems
-
History Source: Patient
A 12 point ROS was completed and negative except as noted: Yes
Physical Exam
Vital Signs
Vital Signs
Temp Pulse Resp BP Pulse Ox
97.6 F 73 18 205/88 95
01/19/24 07:10 01/19/24 08:17 01/19/24 07:10 01/19/24 08:17 01/19/24 08:00
Physical Exam
General: Other (chronically ill appearing)
HEENT: NormoCephalic, Anicteric and PERRLA
Respiratory: Decreased Breath Sounds
Cardiac: S1/S2 and Regular Rhythm
GI: Soft, Non Tender and Other (distended)
Musculoskeletal: Edema, Left Lower Extremity and Edema, Right Lower Extremity
Skin: Warm and Dry; No Rash
Neuro: Awake and Alert
Psych: Calm; No Intact Judgment/Insight
Laboratory Results
-
01/19/24 07:22
Laboratory Results
Total Bilirubin 0.9 mg/dl (0.2-1.3) 01/19/24 07:22
AST 39 U/L (17-59) 01/19/24 07:22
ALT 15 U/L (0-50) 01/19/24 07:22
Alkaline Phosphatase 273 U/L (38-126) H 01/19/24 07:22
Troponin I 0.075 ng/ml H* 01/19/24 07:22
Data Reviewed
-
Diagnostic Radiology: Report Reviewed by me
Lab Data: Labs Reviewed by me
Impression/Plan
-
Mr. Lupillo Sheehan is a 58 yo man with hx ESRD on HD T//Thu, CAD, atrial fibrillation on coumadin, IDDM, essential HTN, new diagnosis of cirrhosis and ascites (hospitalization 12/29-01/01/24) presents to the ER short of breath and weak in setting
of missing last HD session on Thursday.
Triage VS: T 97.6, P 78, RR 18, BP 215/98, SpO2 95%
Labs: WBC 9.3, Hg 9.1, PLT 313, Na 135, K+ 6.2, Cl 95, BUN 96, Cr 9.3, Glucose 60, T. Bili 0.9, AST 39, ALT 15, Alk Phos 273, Trop 0.075, BNP > 76339
MAR: Calcium, Dextrose, Lasix 80mg IV, IV Hydralazine, Labetalol, Lokelma
Hyperkalemia
Shortness of Breath
ESRD on HD, missed last session
-s/p calcium, lokelma, lasix in ER
-admit now to IMU for urgent HD session, Renal saw patient in the ER
-monitor K
-low salt, low K diet with fluid restriction
-will order PT/OT tomorrow once stabilized
IDDM
Hypoglycemia
-patient hypoglycemic to 60 on arrival s/p dextrose
-hold ENTRY LEVEL STAFF ACCOUNTANT Lantus for now
-ISS low
Hypertensive Urgency
-s/p Hydral and labetalol in ER
-hypertensive in setting of not taking morning medications
-HD now as above
-resume ENTRY LEVEL STAFF ACCOUNTANT regimen: Clonidine TID; Hydral TID, Nifedipine BID
-hold ENTRY LEVEL STAFF ACCOUNTANT Losartan and Spironolactone given elevated K
Non-UT Troponin Elevation
-in setting of volume overload from missing HD sessions
-trend Troponin
Ascites
Recent new diagnosis of cirrhosis
-will consider repeat abdominal US this admission once acute issues stabilized
Coronary Artery Disease
Atrial Fibrillation on coumadin
-check INR with next K check
-ENTRY LEVEL STAFF ACCOUNTANT coumadin
DVT PPx: ENTRY LEVEL STAFF ACCOUNTANT Coumadin
FULL CODE - discussed on admission
*awaiting formal med rec - patient was recently discharged with med rec from mid December
Total Critical Care Time 45 minutes. I was immediately available to the patient and staff. I personally examined, reviewed labs, diagnostic images/reports, interpretations, treatment plans, discussed patient care with other providers and family
or caregivers (if patient is unable to make decisions), entered orders as appropriate and documented the medical record.
--- NOTE | 2024-01-19 09:13 | PHANOTE ---
med rec note- patient returning to the [facility] with old med list from 2022 but when going over meds with patient he stated he does not take half of them and some I can not find in pharmacy records. patient has no ecw. called patient primary at
[phone] but no answer. patient also gave me [phone].
[2024-01-19 10:11] LABS: Glucose - Point of Care 79 mg/dl (70-99)
--- NOTE | 2024-01-19 10:19 | W.CON.NEPH ---
Consultation
-
Date/Time Consultation Requested: 01/19/24809
Date/Time Consultation Performed: 01/19/24929
Requesting Provider: Shari Foster
Performing Provider: Jessica Burns
Reason for Consultation: ESRD, HTN -missed HD
Medical History
-
Chief Complaint: SOB
History of Present Illness:
Mr. Lupillo Sheehan is a 58 yo man with hx ESRD on HD T//Sat at [facility] on bumex, CAD, atrial fibrillation on coumadin, IDDM, HTN on Procardia, losartan, clonidine,hydralazine, Aldactone, HLD on statin, Vascepa, hyperphosphatemia on
Renvela, recent new diagnosis of cirrhosis and ascites (hospitalization 12/29-01/01/24) presents to the ER short of breath and generalized weakness after missing since Thursday. He reports having diarrhea for several days till yesterday is the reason
for missing HD according to the pt. No fever or abd pian. no n/v. No CP but sob at rest. last HD session on Thursday. On arrival his BPs are 215/93, k 6.2. Nephrology consulted for HD needs today.
He lives at home with his cousin who helps him to transport to HD.
Past Medical History
1. ESRD x5 years presumed due to diabetic nephropathy.
2. Chronic pain.
3. Chronic back pain.
4. Atrial fibrillation on Coumadin.
5. Chronic anemia.
6. History of thoracentesis.
7. History of pericardiocentesis at outside hospital back in fall
of 2022.
8. Elevated HEYDI with subsequent negative testing.
9. Peripheral neuropathy.
10. History of left upper extremity radiocephalic AV fistula.
11. History of hypertension on multi-drug regimen.
12. History of coronary artery disease.
13. History of peripheral eosinophilia.
14. Hyperphosphatemia.
Past Medical History: Other
Past Surgical History: Other (Left arm AVG)
Social History
Tobacco: Former Smoker
Alcohol: Former
Drug: None
Living: With Family (cousin)
Family History
Family History: Not Pertinent
Allergies / Home Medications
Allergy/AdvReac Type Severity Reaction Status Date / Time
morphine Allergy Unknown Verified 12/30/23 10:33
�Medication �Instructions �Recorded �Confirmed �Type
atorvastatin 80 mg tablet 80 mg PO HS High Cholesterol 12/23/22 12/11/23 History
icosapent ethyl 1 gram capsule 2 g PO BID High Cholesterol 12/23/22 12/11/23 History
(Vascepa)
lidocaine-prilocaine 2.5 %-2.5 % 1 applic topical MOWEFR PRN port 12/23/22 12/11/23 History
topical cream access
nifedipine 60 mg tablet,extended 60 mg PO BID Blood Pressure #0 tabs 02/13/23 12/11/23 Rx
release
sevelamer carbonate 800 mg tablet 1,600 mg PO MEALS Kidney Disease 03/30/23 12/11/23 History
bumetanide 2 mg tablet 2 mg PO SUTUTHSA@0800,1900 Fluid 07/29/23 12/11/23 History
Retention/Swelling
insulin degludec 100 unit/mL 6 unit SC HS Diabetes 07/29/23 12/11/23 History
subcutaneous solution (Tresiba
U-100 Insulin)
losartan 100 mg tablet 100 mg PO BID Blood Pressure 07/29/23 12/11/23 History
sertraline 100 mg tablet 100 mg PO DAILY Mental Health 07/29/23 12/11/23 History
vitamin B complex-vitamin C 100 1 tab PO DAILY Supplement 07/29/23 12/11/23 History
mg-folic acid 1 mg tablet
(Dialyvite)
gabapentin 100 mg capsule 100 mg PO HS Pain 09/09/23 12/11/23 History
pantoprazole 40 mg tablet,delayed 40 mg PO BID Gastrointestinal Issue 09/09/23 12/11/23 History
release (Protonix)
spironolactone 25 mg tablet 25 mg PO DAILY Blood pressure #30 09/16/23 12/11/23 Rx
tabs
Lactobac no.2-Bifidobac no.1-S. 1 cap PO DAILY 10/29/23 12/11/23 History
thermo 112.5 billion cell capsule
(Visbiome)
acetaminophen 500 mg tablet 1,000 mg PO Q6HPRN PRN mild pain 10/29/23 12/11/23 History
(Tylenol Extra Strength)
clonidine HCl 0.2 mg tablet 0.2 mg PO TID Blood pressure 10/29/23 12/11/23 History
hydralazine 100 mg tablet 100 mg PO TID Blood Pressure 10/29/23 12/11/23 History
warfarin 3 mg tablet 4 mg PO MOTUWETHFRSA@2200 Blood 10/29/23 12/11/23 History
Clot Prevention/Tx
insulin lispro 100 unit/mL 0 sliding scale dose SC AC 12/11/23 12/11/23 History
subcutaneous pen
ondansetron HCl 4 mg tablet 4 mg PO Q8HPRN PRN NAUSEA 12/11/23 12/11/23 History
spironolactone 25 mg tablet 25 mg PO DAILY Blood pressure #30 01/01/24 Rx
tabs
Review of Systems
-
All complete 12 point ROS have been inquired and found negative other than stated in HPI
All other systems: Negative unless noted
Physical Exam
Vital Signs
Vital Signs
Temp Pulse Resp BP Pulse Ox
97.6 F 68 18 208/98 94
01/19/24 07:10 01/19/24 10:15 01/19/24 07:10 01/19/24 10:00 01/19/24 10:15
Lab Results
WBC 9.3 10^3/uL (4.8-10.8) 01/19/24 07:22
RBC 3.63 10^6/uL (4.70-6.10) L 01/19/24 07:22
Hgb 9.1 g/dL (13.0-18.0) L 01/19/24 07:22
Hct 28.7 % (39.0-52.0) L 01/19/24 07:22
Plt Count 313 10^3/uL (130-400) 01/19/24 07:22
Sodium 135 mmol/L (135-145) 01/19/24 07:22
Chloride 95 mmol/L (98-107) L 01/19/24 07:22
Carbon Dioxide 22 mmol/L (22-30) 01/19/24 07:22
BUN 96 mg/dl (9-20) H 01/19/24 07:22
Creatinine 9.3 mg/dL (0.7-1.3) H* 01/19/24 07:22
eGFR 5.97 01/19/24 07:22
Glucose 60 mg/dl (70-99) L 01/19/24 07:22
Calcium 9.1 mg/dl (8.4-10.2) 01/19/24 07:22
Fqc-I-Nmvxvfsksyb Pept > 24941 pg/ml 01/19/24 07:22
Albumin 3.4 g/dl (3.5-5.0) L 01/19/24 07:22
CXR mild CHF On personal read
Physical Exam
General: Awake, Alert, Oriented and Nontoxic
HEENT: EOMI, Anicteric, Neck Supple and Trachea Midline
Respiratory: Crackels (basess) and Nonlabored Respirations
Cardiac: S1/S2, Regular Rate/Rhythm and Murmur
Breast: Deferred by me
Abdomen: Soft, Nontender and Other (distended)
Musculoskeletal: No Cyanosis and Edema (1+chronic)
Skin: No Rash
Neuro: Nonfocal/Grossly Intact
Psych: Mood/afflect pleasant and Appropriate
Vascular Access: AVF (left UE)
Data Reviewed
-
Radiology: Report Reviewed by me and Discussed with Patient
Labs: Labs Reviewed by me, Discussed with Physician and Discussed with Patient
Assessment/Plan
-
Impression:
SOB
HTN
Hyperkalemia
ESRD on hemodialysis [facility]
Acute on Chronic HFpEF
Recent diarrhea-WOOD HEEL FLAP RUBBER
Anemia of CKD
History of bilateral pleural effusions status post thoracentesis
History of pericardial effusion status post pericardiocentesis
Coronary artery disease
Paroxysmal atrial fibrillation
Essential hypertension
DM2 with multiple microvascular complications
Hyperlipidemia
Spinal stenosis
Anxiety/depression
L radial AVF
Cirrhosis of liver on US
Plan:
A/w sobm last HD , missed thursday
will plan HD today and UF as much possible
resume BP meds post HD
likely HD again tomorrow too
renal diet, Fluid restriction strictly 33ounces/day
resume diuretics and phos binders
d/w primary
reviewed with pt about imp of compliance with dialysis
[2024-01-19 11:38] LABS: PT 75.2 Sec (11.4-14.6)
[2024-01-19 11:40] LABS: INR > 8.0
[2024-01-19] MEDS: MEPHYTON 2.5 MG PO (13:29)
[2024-01-19] MEDS: PROTONIX 40 MG PO ×2 (13:29→19:05)
[2024-01-19] MEDS: ZOLOFT 100 MG PO (13:29)
[2024-01-19 13:51] LABS: Glucose - Point of Care 62 mg/dl (70-99)
[2024-01-19 14:18] LABS: Glucose - Point of Care 66 mg/dl (70-99)
[2024-01-19 14:38] LABS: Potassium 6.1 mmol/L (3.5-5.1)
[2024-01-19 14:45] LABS: Troponin I 0.077 ng/ml
[2024-01-19] MEDS: RENVELA 1600 MG PO ×2 (14:50→17:31)
--- NOTE | 2024-01-19 15:09 | PTCARENOTE ---
Assumed care for the patient during the day. Pt AAOx3. Pt normal sinus rhythm on tele. Pt on room air respirations are even and unlabored. Pt is currently receiving hemodialysis. Pt eating lunch. Pt oriented and educated about the unit. Call nieto is
within reach.
[2024-01-19] MEDS: NOVOLOG FLEXPEN-LOW RESISTANCE SC ×2 (15:11→18:18)
[2024-01-19] MEDS: RETACRIT 4000 UNITS IV (16:00)
--- NOTE | 2024-01-19 16:05 | W.PN.NEPH.HD ---
Assessment
-
pt evaluated during HD
vitals stable , BP high
UF as much as possible , 4kg over EDW
AVF function well
plan HD again tomorrow
resume all anti HTN meds
Progress Note - Hemodialysis
-
Date of Service: January 19, 2024
Duration: 30 minutes and 3 hours
Potassium Bath: 2
Calcium Bath: 2.5
Opti-Dialyzer: 160
Ultrafiltration: Other (3.5-4kg)
Blood Flow: 400
Dialysate Flow: 600
Heparin: no
EPO: 4000
[2024-01-19 16:14] LABS: Glucose - Point of Care 125 mg/dl (70-99)
[2024-01-19] MEDS: TYLENOL 650 MG PO (16:29)
[2024-01-19 17:02] LABS: Hepatitis B Surface Antigen Negative (Negative)
[2024-01-19 17:20] LABS: Hepatitis B Surface Antibody Positive
[2024-01-19] MEDS: CATAPRES 0.2 MG PO ×2 (17:31→22:09)
[2024-01-19] MEDS: APRESOLINE 100 MG PO ×2 (17:32→22:09)
[2024-01-19 18:19] LABS: Glucose - Point of Care 93 mg/dl (70-99)
--- NOTE | 2024-01-19 18:54 | PTCARENOTE ---
Patient continues with high BP's after HD despite Apresoline and Catapres. Hospitalist made aware and instructed to give Procardia now. Holding Heparin. hammer setter made aware of plan. Rechecking Troponin and K @ 2000.
[2024-01-19] MEDS: PROCARDIA XL (EXTENDED RELEASE) 60 MG PO (19:05)
[2024-01-19 20:59] LABS: INR 5.27
[2024-01-19 21:03] LABS: PT 48.6 Sec (11.4-14.6)
[2024-01-19 21:06] LABS: Potassium 4.5 mmol/L (3.5-5.1)
[2024-01-19 21:14] LABS: Troponin I 0.067 ng/ml
[2024-01-19 21:54] LABS: Glucose - Point of Care 105 mg/dl (70-99)
[2024-01-19] MEDS: LIPITOR 80 MG PO (22:08)
[2024-01-19] MEDS: NEURONTIN 100 MG PO (22:09)
[2024-01-20] VITALS (32 sets, daily range): BP systolic 82–179; BP diastolic 50–102; BMI 25.4
--- NOTE | 2024-01-20 00:21 | PTCARENOTE ---
Caring for patient overnight, aaox3 but drowsy and c/o not feeling well. NSR BBB >QT. Redrew labs at 1999, INR down to 5, K down to 4.5, troponin trending down. BP's starting to trend down after all his scheduled meds. L AVF. RA in beginning of
shift but still c/o SOB, heard crackles throughout L lung, sao2 92/93%, placed on 2LNC for comfort, HOB up. Call nieto in reach. Will monitor.
[2024-01-20 03:22] LABS: Glucose - Point of Care 118 mg/dl (70-99)
[2024-01-20 06:27] LABS: Hematocrit 26.8 % (39.0-52.0); Hemoglobin 8.6 g/dL (13.0-18.0); Mean Corp Hgb Conc. 32.1 g/dL (33.0-37.0); Mean Corpuscular Hgb 25.8 pg (27.0-31.0); Mean Corpuscular Volume 80.5 fL (80.0-94.0); Mean Platelet Volume 9.5 fL (7.4-10.4); Platelet Count 315 10^3/uL (130-400); Red Blood Cell Count 3.33 10^6/uL (4.70-6.10); Red Cell Dist. Width 19.4 % (11.5-14.5); White Blood Cell Count 9.7 10^3/uL (4.8-10.8)
[2024-01-20 06:30] LABS: INR 2.32; PT 25.3 Sec (11.4-14.6)
[2024-01-20 06:40] LABS: Blood Urea Nitrogen 56 mg/dl (9-20); Calcium 8.6 mg/dl (8.4-10.2); Carbon Dioxide 27 mmol/L (22-30); Chloride 97 mmol/L (98-107); Estimated Creatinine Clearance 14 ml/min; Glucose 120 mg/dl (70-99); Magnesium 2.2 mg/dl (1.6-2.3); Phosphorus 3.2 mg/dl (2.5-4.5); Potassium 4.8 mmol/L (3.5-5.1); Sodium 137 mmol/L (135-145); eGFR 9.71
[2024-01-20 07:32] LABS: Glucose - Point of Care 159 mg/dl (70-99)
[2024-01-20] MEDS: NOVOLOG FLEXPEN-LOW RESISTANCE 1 UNITS SC ×2 (07:42→11:44)
--- NOTE | 2024-01-20 07:46 | W.PN.HOSP.TC ---
Addendum entered and electronically signed by Shari Bergeron MD 01/20/24 11:18:
5800cc ascitic fluid removed with para - will give 12.5G albumin back x 1
Original Note:
Today's Communication/Plan
-
HD
PT/OT
IR consult for paracentesis
Assessment / Plan
Assessment / Plan
Mr. Lupillo Sheehan is a 58 yo man with hx ESRD on HD T//Thu, CAD, atrial fibrillation on coumadin, IDDM, essential HTN, new diagnosis of cirrhosis and ascites (hospitalization 12/29-01/01/24) presents to the ER short of breath and weak in setting
of missing last HD session on Thursday. Admitted to IMU and s/p urgent dialysis day of admission.
Hyperkalemia
Shortness of Breath
ESRD on HD, missed last session
-s/p calcium, lokelma, lasix in ER
-admitted to IMU and s/p HD on day of admission, 01/18
-appreciate renal consult
-plan for second HD session today
-K now WNL
-PT/OT
-RAIL SIGNAL WORKER phos binders
IDDM
Hypoglycemia
-patient hypoglycemic to 60 on arrival s/p dextrose
-hold RAIL SIGNAL WORKER Lantus for now
-ISS low
Hypertensive Urgency
-s/p Hydral and labetalol in ER
-hypertensive in setting of not taking morning medications; improved this AM post HD and resuming most of regimen
-resume RAIL SIGNAL WORKER regimen: Clonidine TID; Hydral TID, Nifedipine BID
-held RAIL SIGNAL WORKER Losartan and Spironolactone given elevated K - discuss timing of resuming with Renal
Non-TX Troponin Elevation
-in setting of volume overload from missing HD sessions
-trop peaked 0.077
Ascites
Recent new diagnosis of cirrhosis
-will consider repeat abdominal US this admission once acute issues stabilized
-will ask IR to perform paracentesis this admission
Coronary Artery Disease
Atrial Fibrillation on coumadin
Elevated INR
-s/p vitamin K 2.5mg PO with INR improved to 2.5 this AM
-resume coumadin 4mg this evening
DVT PPx: RAIL SIGNAL WORKER Coumadin
FULL CODE - discussed on admission
51 minutes spent on patient care
Anticipated Discharge: 24 - 48 hours
Subjective/Interval History
-
Date of Service: January 20, 2024
Objective Data
-
Labs:
Laboratory Results
01/19/24 01/20/24
20:38 06:07
WBC 9.7
Hgb 8.6 L
Hct 26.8 L
Plt Count 315
PT 48.6 H 25.3 H
INR 5.27 H* D 2.32 D
Sodium 137
Potassium 4.5 D 4.8
Chloride 97 L
Carbon Dioxide 27
BUN 56 H
Creatinine 6.2 H*
Glucose 120 H
Calcium 8.6
Vital Signs:
Vital Signs
Temp Pulse Resp BP Pulse Ox
98.8 F 92 20 158/72 94
01/20/24 03:48 01/20/24 06:07 01/20/24 06:07 01/20/24 06:07 01/20/24 06:07
I&O
01/19/24 01/20/24 01/21/24
06:59 06:59 06:59
Intake Total 720 / 720
Balance 720 / 720
--- NOTE | 2024-01-20 08:19 | PTCARENOTE ---
Pt AAOx3, flat on RA lungs are diminished . Pt is oliguric awaiting HD co of R shoulder pain that pt states is arthritis, Accucheck complete and pt eating his breakfast. L fistula + bruit and thrill. Large belly
[2024-01-20] MEDS: CATAPRES 0.2 MG PO ×3 (08:33→21:16)
[2024-01-20] MEDS: APRESOLINE 100 MG PO ×3 (08:33→21:16)
[2024-01-20] MEDS: PROTONIX 40 MG PO ×2 (08:33→19:34)
[2024-01-20] MEDS: ZOLOFT 100 MG PO (08:33)
[2024-01-20] MEDS: RENVELA 1600 MG PO ×3 (08:34→16:32)
[2024-01-20] MEDS: PROCARDIA XL (EXTENDED RELEASE) 60 MG PO ×2 (08:34→19:34)
[2024-01-20] MEDS: B COMPLEX w/VITAMIN C 1 CAPLET PO (08:34)
--- NOTE | 2024-01-20 09:05 | PTCARENOTE ---
Pt ti IR for paracentesis with student nurse observing.
[2024-01-20] MEDS: TYLENOL 650 MG PO ×2 (10:31→19:34)
[2024-01-20 11:18] LABS: Body Fluid Mononuclear 82.3 %; Body Fluid Polymorphonuclear 17.7 %; Body Fluid WBC 350 /CUMM
[2024-01-20 11:19] LABS: Body Fluid Albumin 1.4 g/dl; Body Fluid LDH 96 U/L; Body Fluid Protein 3.4 g/dl
[2024-01-20 11:26] LABS: Body Fluid Second Tech AMA
[2024-01-20] MEDS: ALBUMIN 5% 250 IV (11:45)
[2024-01-20 11:49] LABS: Glucose - Point of Care 167 mg/dl (70-99)
--- NOTE | 2024-01-20 11:59 | CM ---
Patient with Hx ESRD on HD with Dx Hyperkalemia, Shortness of Breath, Hypertensive Urgency, Ascites s/p paracentesis. Room air. PT/OT Evals pending.
Met with patient who resides with his cousin Richi in a split level house.
He has been independent in ADLs and ambulation using his RW.
The patient has no food/housing/utilities/transport insecurity.
The patient goes to [employer] T-Th-Sat 11:15 and he has 2 cousins who provide transport.
DME - RW, shower chair, commode
Current with [facility] for SN/PT.
SNF - [facility]
PCP - Rosemarie Paige
Pharmacy - [facility]
Plan follow up afte seen by PT/OT.
Plan anticipate home with resumption [facility].
--- NOTE | 2024-01-20 13:40 | W.PN.NEPH.HD ---
Assessment
-
Patient seen on dialysis
Status post 5.8 L paracentesis performed before dialysis
u/f titrated back to even
HD tomorrow to keep on TTS schedule
sbp ~107
Progress Note - Hemodialysis
-
Date of Service: January 20, 2024
Duration: 30 minutes and 3 hours
Potassium Bath: 2
Calcium Bath: 2.5
Opti-Dialyzer: 160
Ultrafiltration: Other (even)
Blood Flow: 400
Dialysate Flow: 600
Heparin: none
EPO: 4000
[2024-01-20] MEDS: RETACRIT 4000 UNITS IV (14:54)
[2024-01-20] MEDS: NOVOLOG FLEXPEN-LOW RESISTANCE SC (16:22)
[2024-01-20 16:32] LABS: Glucose - Point of Care 144 mg/dl (70-99)
[2024-01-20] MEDS: COUMADIN 4 MG PO (17:59)
[2024-01-20 21:00] LABS: Glucose - Point of Care 218 mg/dl (70-99)
[2024-01-20] MEDS: NEURONTIN 100 MG PO (21:16)
[2024-01-20] MEDS: LIPITOR 80 MG PO (21:16)
--- NOTE | 2024-01-20 22:18 | PTCARENOTE ---
Caring for patient overnight. aaox3, flat. Generalized pain throughout 12/28, tylenol given. Bp's running high, bp meds given. NO assessment changes. L AVF. Call nieto in reach. Will monitor.
[2024-01-21] VITALS (31 sets, daily range): BP systolic 112–185; BP diastolic 52–87; BMI 23.1
[2024-01-21 04:13] LABS: Glucose - Point of Care 195 mg/dl (70-99)
[2024-01-21 07:34] LABS: Glucose - Point of Care 160 mg/dl (70-99)
--- NOTE | 2024-01-21 07:44 | PTCARENOTE ---
Pt AAIOx3 flat Accu check done awaiting HD .
--- NOTE | 2024-01-21 08:04 | W.PN.HOSP.TC ---
Addendum entered and electronically signed by Shari Bergeron MD 01/21/24 16:03:
acute heart failure in setting missing HD sessions
resume Bumex
Non-ischemic myocardial injury
-in setting of fluid overload
Original Note:
Today's Communication/Plan
-
HD
PT/OT
likely approaching DC
wean O2
Assessment / Plan
Assessment / Plan
Mr. Lupillo Sheehan is a 58 yo man with hx ESRD on HD T//Thu, CAD, atrial fibrillation on coumadin, IDDM, essential HTN, new diagnosis of cirrhosis and ascites (hospitalization 12/29-01/01/24) presents to the ER short of breath and weak in setting
of missing last HD session on Thursday. Admitted to IMU and s/p urgent dialysis day of admission.
Hyperkalemia
Shortness of Breath
ESRD on HD, missed last session
-s/p calcium, lokelma, lasix in ER
-admitted to IMU and s/p HD on day of admission, 01/18 and again 01/19
-appreciate renal consult
-K now WNL
-PT/OT
-AGENCY CASHIER phos binders
-likely approaching DC
IDDM
Hypoglycemia
-patient hypoglycemic to 60 on arrival s/p dextrose
-hold AGENCY CASHIER Lantus for now
-ISS low
-A1c 12/31/23 - 5.2% - stop lantus on DC
Hypertensive Urgency
-s/p Hydral and labetalol in ER
-hypertensive in setting of not taking morning medications; improved this AM post HD and resuming most of regimen
-resume AGENCY CASHIER regimen: Clonidine TID; Hydral TID, Nifedipine BID
-held AGENCY CASHIER Losartan and Spironolactone given elevated K - discuss timing of resuming with Renal
Non-MT Troponin Elevation
-in setting of volume overload from missing HD sessions
-trop peaked 0.077
Ascites
Recent new diagnosis of cirrhosis
-will consider repeat abdominal US this admission once acute issues stabilized
-will ask IR to perform paracentesis this admission
Coronary Artery Disease
Atrial Fibrillation on coumadin
Elevated INR
-s/p vitamin K 2.5mg PO with INR improved to 2.5 this AM
-resume coumadin 4mg
DVT PPx: AGENCY CASHIER Coumadin
FULL CODE - discussed on admission
51 minutes spent on patient care
Anticipated Discharge: Within 24 hours
Subjective/Interval History
-
Date of Service: January 21, 2024
continues to feel weak and short of breath
receiving HD now
Objective Data
-
Labs:
Laboratory Results
01/21/24
06:00
PT Pending
INR Pending
Sodium Pending
Potassium Pending
Chloride Pending
Carbon Dioxide Pending
BUN Pending
Creatinine Pending
Glucose Pending
Calcium Pending
Vital Signs:
Vital Signs
Temp Pulse Resp BP Pulse Ox
98.5 F 74 21 128/57 97
01/21/24 07:32 01/21/24 06:00 01/21/24 06:00 01/21/24 06:00 01/21/24 06:00
I&O
01/20/24 01/21/24 01/22/24
06:59 06:59 06:59
Intake Total 720 / 720 358 / 358
Output Total 20 / 20
Balance 720 / 720 338 / 338
Review of Systems
-
History Source: Patient
All other systems: Reviewed and negative
Physical Exam
-
General: Comfortable, Conversant and Appears Chronically Ill
HEENT: Negative Oxygen
Respiratory: Clear to Auscultation
Cardiac: S1/S2, Irregular Rhythm and Murmur
GI: Soft, Nontender, Normal Bowel Sounds, Distended and Other (Ascitic fluid wave present)
Skin: Warm and Dry
Neuro: Awake, Alert, Oriented and AO x 3
Psych: Calm; Negative Intact Judgement/Insight
Data Reviewed
-
Diagnostic Radiology: Report Reviewed by me
Labs: Labs Reviewed by me
[2024-01-21] MEDS: RENVELA 1600 MG PO ×3 (08:12→17:00)
[2024-01-21] MEDS: NOVOLOG FLEXPEN-LOW RESISTANCE 1 UNITS SC ×3 (08:13→16:56)
[2024-01-21 09:07] LABS: INR 2.07; PT 23.5 Sec (11.4-14.6)
[2024-01-21] MEDS: TYLENOL 650 MG PO (09:30)
--- NOTE | 2024-01-21 09:32 | CM ---
Pt seen at bedside. Pt confirmed he receives HD at [facility] in [facility] 11:15.
Pt confirmed his cousin will transport home @ d/c.
Follow up w/ [facility] when pt d/c to resume HD. Please fax flow sheets prior to d/c
IMM reviewed, signed and put into chart.
PT/OT pending
Pt is open w/ [facility]. CM sent referral via [employer]
[facility]
. .
Plan: Home w/ OP HD and resumption of [facility] services
--- NOTE | 2024-01-21 09:52 | W.PN.NEPH.HD ---
Assessment
-
Patient seen on dialysis
Systolic blood pressure at 147 at current UF goal of 2 kg
Currently holding Aldactone due to hyperkalemia
Losartan held unless blood pressure rebounds
Progress Note - Hemodialysis
-
Date of Service: January 21, 2024
Duration: 3 hours
Potassium Bath: 2
Calcium Bath: 2.5
Opti-Dialyzer: 160
Ultrafiltration: Other (1-2kg as hemodynamically tolerated)
Blood Flow: 400
Dialysate Flow: 600
Heparin: none
EPO: none
[2024-01-21 10:16] LABS: Blood Urea Nitrogen 37 mg/dl (9-20); Calcium 8.1 mg/dl (8.4-10.2); Carbon Dioxide 29 mmol/L (22-30); Chloride 95 mmol/L (98-107); Estimated Creatinine Clearance 18 ml/min; Glucose 153 mg/dl (70-99); Potassium 4.7 mmol/L (3.5-5.1); Sodium 136 mmol/L (135-145)
--- NOTE | 2024-01-21 11:39 | PN.CDI ---
CDI
- -
CDI:
Physician Documentation Request
Admit Date: 01/19/24 10:18
Dear Doctor Elyssa,
Please review the following and provide your response in the progress notes.
Clinical Indicators:
The diagnosis of Acute on chronic HFpEF was documented on 01/19/24, but is not consistently noted in subsequent documentation.
Pt admitted with shortness of breath, hyperkalemia, and hypertensive urgency.
01/18 Nephrology Note: ' Impression:... Acute on chronic HFpEF...will plan HD today and UF as much possible.'
Please clarify the following:
Acute on chronic HFpEF was ruled out
Acute on chronic HFpEF is still a likely, suspected, probable diagnosis
Other
Use of terms such as suspected, likely, concern for, or probable (associated with a specific diagnosis that is being evaluated, monitored, or treated as if it exists) are acceptable and can be coded in the inpatient setting, when documented at the
time of discharge.
Thank you,
Lorraine Bowman RN, BSN
CDI Specialist
Available via [place] [employer]
Please use your independent medical judgment in providing your response.
--- NOTE | 2024-01-21 11:52 | PN.CDI ---
CDI
- -
CDI:
Physician Documentation Request
Admit Date: 01/19/24 10:18
Dear Doctor Elyssa,
Please review the following and provide your response in the progress notes.
Clinical Indicators:
01/20 Progress note: ' Non-VT Troponin Elevation
-in setting of volume overload from missing HD sessions
-trop peaked 0.077'
Laboratory Tests
01/19/24 01/19/24 01/19/24
07:22 14:02 20:38
Troponin I 0.075 H* 0.077 H* 0.067 H*
Based on the above, could you clarify in the progress notes, the appropriate diagnosis, if significant, that supports the above abnormalities and additional evaluation, monitoring and/or treatment rendered:
Non-ischemic myocardial injury
Insignificant abnormal lab values
Other
Use of terms such as suspected, likely, concern for, or probable (associated with a specific diagnosis that is being evaluated, monitored, or treated as if it exists) are acceptable and can be coded in the inpatient setting, when documented at the
time of discharge.
Thank you,
Lorraine Bowman RN, BSN
CDI Specialist
Available vis [place] [employer]
Please use your independent medical judgment in providing your response.
[2024-01-21 11:55] LABS: Glucose - Point of Care 174 mg/dl (70-99)
[2024-01-21] MEDS: CATAPRES 0.2 MG PO ×3 (11:55→21:53)
[2024-01-21] MEDS: APRESOLINE 100 MG PO ×3 (11:56→21:51)
[2024-01-21] MEDS: ZOLOFT 100 MG PO (11:57)
[2024-01-21] MEDS: PROTONIX 40 MG PO ×2 (11:57→20:16)
[2024-01-21] MEDS: PROCARDIA XL (EXTENDED RELEASE) 60 MG PO ×2 (11:57→20:17)
[2024-01-21] MEDS: B COMPLEX w/VITAMIN C 1 CAPLET PO (11:58)
--- NOTE | 2024-01-21 14:23 | CM ---
Patient uncle spoke with CM; Israel Sheehan [phone], He requested CM provide update to him and that he wanted to express his concerns about patient returning to his son's home, CM reviewed with patient uncle that he was not listed as contact
and CM would speak with patient. CM spoke with patient and he confirmed that information could be provided to patient uncle and called back to leave a message for Israel Sheehan. Patient stated that he did not want to return to SNF; he stated he
had been at [facility] approx 5 weeks ago. Patient confirmed that he was open with Patricia prior to admission to . CM will continue to follow for discharge planning needs.
Plan; home with Patricia and [facility] HD vs SNF
[2024-01-21 16:29] LABS: Glucose - Point of Care 181 mg/dl (70-99)
[2024-01-21] MEDS: COUMADIN 4 MG PO (16:59)
[2024-01-21] MEDS: BENADRYL 6.25 MG IV (20:53)
[2024-01-21] MEDS: LIPITOR 80 MG PO (21:52)
[2024-01-21] MEDS: NEURONTIN 100 MG PO (21:52)
[2024-01-21 21:53] LABS: Glucose - Point of Care 189 mg/dl (70-99)
--- NOTE | 2024-01-21 23:00 | PTCARENOTE ---
pt has been c/o nausea throughout the night. SNOW REMOVAL/PLOWING notified and Benadryl IV order. Pt continue w/ the nausea and the dose of Benadryl. Marion ann marie and alcohol swab given to subside symptom. AAOx3 , flat and General weakness.
[2024-01-22] VITALS (7 sets, daily range): BP systolic 143–172; BP diastolic 60–72; PULSE 82–83; O2SAT 98–99; BMI 23.3
[2024-01-22 05:27] LABS: INR 2.33; PT 25.8 Sec (11.4-14.6)
[2024-01-22 05:55] LABS: Blood Urea Nitrogen 31 mg/dl (9-20); Calcium 8.3 mg/dl (8.4-10.2); Carbon Dioxide 29 mmol/L (22-30); Chloride 95 mmol/L (98-107); Estimated Creatinine Clearance 22 ml/min; Glucose 151 mg/dl (70-99); Potassium 4.3 mmol/L (3.5-5.1); Sodium 134 mmol/L (135-145); eGFR 17.47
[2024-01-22 07:34] LABS: Glucose - Point of Care 133 mg/dl (70-99)
[2024-01-22] MEDS: NOVOLOG FLEXPEN-LOW RESISTANCE SC (07:37)
--- NOTE | 2024-01-22 08:22 | W.PN.HOSP.TC ---
Today's Communication/Plan
-
follow up evals PT/OT
dispo planning
Assessment / Plan
Assessment / Plan
Mr. Lupillo Sheehan is a 58 yo man with hx ESRD on HD T//Thu, CAD, atrial fibrillation on coumadin, IDDM, essential HTN, new diagnosis of cirrhosis and ascites (hospitalization 12/29-01/01/24) presents to the ER short of breath and weak in setting
of missing last HD session on Thursday. Admitted to IMU and s/p urgent dialysis day of admission.
Hyperkalemia
Shortness of Breath
ESRD on HD, missed last session
-s/p calcium, lokelma, lasix in ER
-admitted to IMU and s/p HD
-now on room air, electrolytes stable
-appreciate renal consult
-K now WNL
-PT/OT
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
IDDM
Hypoglycemia
-patient hypoglycemic to 60 on arrival s/p dextrose
-hold [employer] Lantus for now
-ISS low
-A1c 12/31/23 - 5.2% - stop lantus on DC
Hypertensive Urgency
-s/p Hydral and labetalol in ER
-hypertensive in setting of not taking morning medications; improved this AM post HD and resuming most of regimen
-resume [employer] regimen: Clonidine TID; Hydral TID, Nifedipine BID
-held [employer]IC[employer] Losartan and Spironolactone given elevated K - discuss timing of resuming with Renal
Non-CT Troponin Elevation
-in setting of volume overload from missing HD sessions
-trop peaked 0.077
Ascites
Recent new diagnosis of cirrhosis
-will ask IR to perform paracentesis this admission - s/p 5.8L out with one dose albumin
-needs outpatient follow up
-stop spironolactone with elevated K
Coronary Artery Disease
Atrial Fibrillation on coumadin
Elevated INR
-s/p vitamin K 2.5mg PO with INR improved to 2.5 this AM
-resume coumadin 4mg
DVT PPx: [employer] Coumadin
FULL CODE - discussed on admission
51 minutes spent on patient care
Anticipated Discharge: Within 24 hours
Subjective/Interval History
-
Date of Service: January 22, 2024
no new complaints
no chest pain or shortness of breath
Objective Data
-
Labs:
Laboratory Results
01/22/24
05:00
PT 25.8 H
INR 2.33
Sodium 134 L
Potassium 4.3
Chloride 95 L
Carbon Dioxide 29
BUN 31 H
Creatinine 3.8 H
Glucose 151 H
Calcium 8.3 L
Vital Signs:
Vital Signs
Temp Pulse Resp BP Pulse Ox
99.1 F 92 20 151/61 97
01/22/24 07:09 01/22/24 08:00 01/22/24 08:00 01/22/24 06:00 01/22/24 08:00
I&O
01/21/24 01/22/24 01/23/24
06:59 06:59 06:59
Intake Total 358 / 358 1130 / 1130
Output Total
Balance 338 / 338 1120 / 1120
Review of Systems
-
History Source: Patient
All other systems: Reviewed and negative
Physical Exam
-
General: No Apparent Distress
HEENT: PERRLA
Respiratory: Clear to Auscultation; Negative Wheezes
Cardiac: Regular Rhythm and S1/S2
GI: Soft and Nontender
Musculoskeletal: No Edema
Skin: Warm and Dry; Negative Rash
Neuro: AO x 3
Psych: Calm
Data Reviewed
-
Diagnostic Radiology: Report Reviewed by me
Labs: Labs Reviewed by me
[2024-01-22] MEDS: PROTONIX 40 MG PO (09:46)
[2024-01-22] MEDS: PROCARDIA XL (EXTENDED RELEASE) 60 MG PO (09:46)
[2024-01-22] MEDS: B COMPLEX w/VITAMIN C 1 CAPLET PO (09:46)
[2024-01-22] MEDS: COZAAR 100 MG PO (09:46)
[2024-01-22] MEDS: RENVELA 1600 MG PO ×2 (09:46→12:09)
[2024-01-22] MEDS: CATAPRES 0.2 MG PO (09:47)
[2024-01-22] MEDS: ZOLOFT 100 MG PO (09:47)
[2024-01-22] MEDS: APRESOLINE 100 MG PO (09:47)
--- NOTE | 2024-01-22 09:53 | W.DS.TRANS ---
DC Summary - Formulator Compounder
-
Discharge Instructions:
Sleep Apnea Risk Intermediate
Discharge Diagnosis/Procedures hyperkalemia, hypertensive urgency in setting of
missing hemodialysis
Diet Low Sodium,Restrict fluids to 48 oz
Activity As tolerated
Driving Restrictions As prior to admission
Bathing Restrictions None
Blood Work INR on Thursday01/26/24
Other Services VN,PT,OT
Instructions:
Stand-Alone Forms:
Changes to Home Medications: Yes
Discharge Medications:
DC Medications w/original date entered in [employer]
atorvastatin 80 mg tablet 80 mg PO HS High Cholesterol 12/23/22
icosapent ethyl 1 gram capsule (Vascepa) 2 g PO BID High Cholesterol 12/23/22
lidocaine-prilocaine 2.5 %-2.5 % topical cream 1 applic topical MOWEFR PRN port access 12/23/22
nifedipine 60 mg tablet,extended release 60 mg PO BID Blood Pressure #0 tabs 02/13/23
sevelamer carbonate 800 mg tablet 1,600 mg PO MEALS Kidney Disease 03/30/23
bumetanide 2 mg tablet 2 mg PO SUTUTHSA@0800,1900 Fluid Retention/Swelling 07/29/23
losartan 100 mg tablet 100 mg PO BID Blood Pressure 07/29/23
sertraline 100 mg tablet 100 mg PO DAILY Mental Health 07/29/23
vitamin B complex-vitamin C 100 mg-folic acid 1 mg tablet (Dialyvite) 1 tab PO DAILY Supplement 07/29/23
gabapentin 100 mg capsule 100 mg PO HS Pain 09/09/23
pantoprazole 40 mg tablet,delayed release (Protonix) 40 mg PO BID Gastrointestinal Issue 09/09/23
spironolactone 25 mg tablet 25 mg PO DAILY Blood pressure #30 tabs 09/16/23
clonidine HCl 0.2 mg tablet 0.2 mg PO TID Blood pressure 10/29/23
hydralazine 100 mg tablet 100 mg PO TID Blood Pressure 10/29/23
warfarin 3 mg tablet 4 mg PO MOTUWETHFRSA@2200 Blood Clot Prevention/Tx 10/29/23
insulin lispro 100 unit/mL subcutaneous pen 0 sliding scale dose SC AC Diabetes 12/11/23
ondansetron HCl 4 mg tablet 4 mg PO Q8HPRN PRN NAUSEA 12/11/23
acetaminophen 500 mg tablet (Tylenol Extra Strength) 500 mg PO Q6HPRN PRN mild pain #0 tabs 01/22/24
Home Medication Changes
Stop Lantus. Your HgA1c (average blood sugar) is only 5.2% and you came in with low blood sugar. Continue sliding scale as needed.
Do not take more than 2G of tylenol per day given liver disease.
OK to resume all blood pressure medications, but higher risk of complications with these medications if hemodialysis is missed.
Pending Results: No
[2024-01-22] MEDS: MIRALAX 17 GRAMS PO (09:57)
[2024-01-22] MEDS: SENOKOT-S 1 TABLET PO (09:57)
[2024-01-22] MEDS: TYLENOL 650 MG PO (09:57)
--- NOTE | 2024-01-22 11:41 | PTCARENOTE ---
Pt rec'd this am from night RN, pt is AOx3, flat affect, but cooperative with care. PRN stool softeners and Tylenol given per Pt's request. Plan discussed with PT/OT and attending Dr. Bergeron, pt will be dc'd this afternoon home with VN as he has
declined SNF. CM in room discussing logistics with pt and family on phone. Pt working on getting ride home, anticipates citrus picker will be around 3 pm. Agreeable to flu vaccine. Continuing to monitor.
--- NOTE | 2024-01-22 11:51 | CM ---
Patient with Hx ESRD on HD with Dx Hyperkalemia, Shortness of Breath, Hypertensive Urgency, Ascites s/p paracentesis. PT & OT recommend HH; patient declined stair training.
Met with patient and spoke with his uncle Eloy on speaker phone in patient's room; Eloy expressed concerns about the patient returning home today due to mobility issues with 2 flights stairs, and patient's need to do the stairs to go out for dialysis.
Patient adamantly refusing to go to SNF for rehab. Suggestions made to create bedroom on first floor temporarily and patient stated that would not work as shower is on second floor. CM also suggested patient could stay with another family member-
Eloy said there is no one in the family who could offer to take him in to their home. Eloy has been working on application through [facility] for the Waiver caregiver program - he was unaware there may be a delay in the program finding a
caregiver. Patient/uncle agree to resumption Patricia JUNE for SN/PT/OT and they were informed that SW will be added for resources. Gave Eloy Patricia contact info on request. Patient states he feels ready for d/c home today - IMM completed. One of his
2 cousins that he lives with will provide transport home today and help him on the stairs. Patient clarified he is able to descend stairs without difficulty and only needs assist of his cousin to go up stairs.
Spoke with Pily JUNE (fax [phone]); discussed patient's home situation and d/c needs. She was made aware that the patient's uncle may reach out to her.
Spoke with Ernesto [facility] (ph [phone], fax [phone]); clinical info sent via [employer]. She was informed of d/c today.
Plan home today with Patricia JUNE.
[2024-01-22 12:00] LABS: Glucose - Point of Care 153 mg/dl (70-99)
[2024-01-22] MEDS: NOVOLOG FLEXPEN-LOW RESISTANCE 1 UNITS SC (12:09)
[2024-01-22] MEDS: AFLURIA (36 mos+) 2024-2025 FORMULA 0.5 ML IM (12:10)
--- NOTE | 2024-01-22 14:16 | W.PN.NEPH.PH ---
Today's Communication / Plan
-
ok for d/c
Assessment/Plan
-
Impression:
SOB
HTN
Hyperkalemia
ESRD on hemodialysis TTS [facility]
Acute on Chronic HFpEF
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
Anemia of CKD
History of bilateral pleural effusions status post thoracentesis
History of pericardial effusion status post pericardiocentesis
Coronary artery disease
Paroxysmal atrial fibrillation
Essential hypertension
DM2 with multiple microvascular complications
Hyperlipidemia
Spinal stenosis
Anxiety/depression
L radial AVF
Cirrhosis of liver on US
Plan:
A/w sob missed HD thursday
tolerated HD so far with lowering EDW
also had 5.8lit of paracentesis too
asked to keep current wt as EDW at HD unit
strict renal diet, Fluid restriction 33ounces/day
resume home meds at d/c
pt to discuss Aldactone with precribing Doc
d/w primary
reviewed with pt also about imp of compliance with dialysis
-
-
Date of Service: January 22, 2024
CC / HPI / ROS
-
Chief Complaint:
ESRD
History of Present Illness:
tolerated HD 01/20, wt decreased
bp high but stable
no fever
Review of Systems:
no cp or sob
feels at baseline
Labs
-
Labs:
WBC 9.7 10^3/uL (4.8-10.8) 01/20/24 06:07
RBC 3.33 10^6/uL (4.70-6.10) L 01/20/24 06:07
Hgb 8.6 g/dL (13.0-18.0) L 01/20/24 06:07
Hct 26.8 % (39.0-52.0) L 01/20/24 06:07
Plt Count 315 10^3/uL (130-400) 01/20/24 06:07
Sodium 134 mmol/L (135-145) L 01/22/24 05:00
Potassium 4.3 mmol/L (3.5-5.1) 01/22/24 05:00
Chloride 95 mmol/L (98-107) L 01/22/24 05:00
Carbon Dioxide 29 mmol/L (22-30) 01/22/24 05:00
BUN 31 mg/dl (9-20) H 01/22/24 05:00
Creatinine 3.8 mg/dL (0.7-1.3) H 01/22/24 05:00
eGFR 17.47 01/22/24 05:00
Glucose 151 mg/dl (70-99) H 01/22/24 05:00
Calcium 8.3 mg/dl (8.4-10.2) L 01/22/24 05:00
Phosphorus 3.2 mg/dl (2.5-4.5) 01/20/24 06:07
Xhw-T-Kluunwxjzab Pept > 65540 pg/ml 01/19/24 07:22
Albumin 3.4 g/dl (3.5-5.0) L 01/19/24 07:22
Physical Exam
-
Vital Signs:
Vital Signs
Temp Pulse Resp BP Pulse Ox
98.0 F 86 16 164/68 100
01/22/24 11:42 01/22/24 12:06 01/22/24 12:06 01/22/24 12:06 01/22/24 12:53
Cardiovascular:: Regular rate and rhythm
Respiratory:: Bilateral: CTA
Lung Excursion:: Normal
Extremity Edema:: +1: Bilateral:
Alfred Catheter: No
--- NOTE | 2024-01-22 14:44 | W.DCSUMMARY ---
Discharge Summary
Discharge Data
Date of Admission: 01/19/24
Date of Discharge: 01/22/24
-
Pending Results: No
Hospital Course
Discharging Physician : Dr. Shari Bergeron
Disposition : Home with Home Care
Primary care physician : Dr. Rosemarie Paige
Principal Discharge diagnosis : Hyperkalemia, Volume Overload in setting of missed hemodialysis session
Hospital Course :
Mr. Lupillo Sheehan is a 58 yo man with hx ESRD on HD T//Thu, CAD, atrial fibrillation on coumadin, IDDM, essential HTN, new diagnosis of cirrhosis and ascites (hospitalization 12/29-01/01/24) presents to the ER short of breath and weak in setting
of missing last HD session on Thursday. He states reason for missing this session was GI upset.
Triage vital signs significant for BP 215/98. Labs with K+ 6.2, Glucose 60, BNP > 29451. He was given calcium, dextrose, Lasix, Hydralazine, Labetalol IV, and Lokelma in the ER and admitted to IMU for urgent HD. He received 2 consecutive days of
HD. Electrolytes improved with K normal before discharge. BP improved. Initially Losartan and Spironolactone were held, these are resumed on discharge per discussion with Nephrology.
He will follow up as scheduled for next HD.
Of note, HgA1c 5.2% and admission glucose 60. Lantus is stopped on discharge.
Time spent on discharge was 40 minutes.
Important imaging findings :
Procedure findings :
Discharge Plan
-
Patient Disposition: Home with Home Care
Discharge Diagnosis/Procedures: hyperkalemia, hypertensive urgency in setting of missing hemodialysis
Diet: Low Sodium and Restrict fluids to 48 oz
Activity: As tolerated
Driving Restrictions: As prior to admission
Bathing Restrictions: None
Blood Work: INR on Thursday01/26/24
Other Services: VN, PT and OT
Referrals:
Rosemarie Paige, DO [Family Provider] - in less than 1 week
Additional Discharge Medication Instructions: Stop Lantus. Your HgA1c (average blood sugar) is only 5.2% and you came in with low blood sugar. Continue sliding scale as needed.
Do not take more than 2G of tylenol per day given liver disease.
OK to resume all blood pressure medications, but higher risk of complications with these medications if hemodialysis is missed.
Prescriptions:
Continued
atorvastatin 80 mg Tablet
80 mg PO HS
icosapent ethyl [Vascepa] 1 gram Capsule
2 g PO BID
lidocaine-prilocaine 2.5-2.5 % Cream
1 applic TOPICAL MOWEFR PRN (Reason: port access)
nifedipine 60 mg Tablet Extended Release
60 mg PO BID Qty: 0 0RF
sevelamer carbonate 800 mg tablet
1,600 mg PO MEALS
bumetanide 2 mg tablet
2 mg PO SUTUTHSA@0800,1900
sertraline 100 mg tablet
100 mg PO DAILY
losartan 100 mg tablet
100 mg PO BID
Dialyvite 100-1 mg tablet
1 tab PO DAILY
pantoprazole [Protonix] 40 mg tablet,delayed release (DR/EC)
40 mg PO BID
gabapentin 100 mg capsule
100 mg PO HS
spironolactone 25 mg Tablet
25 mg PO DAILY Qty: 30 0RF
warfarin 3 mg Tablet
4 mg PO MOTUWETHFRSA@2200
clonidine HCl 0.2 mg tablet
0.2 mg PO TID
hydralazine 100 mg tablet
100 mg PO TID
ondansetron HCl 4 mg Tablet
4 mg PO Q8HPRN PRN (Reason: NAUSEA)
insulin lispro 100 unit/mL Insulin Pen
0 sliding scale dose SC AC
Rx Instructions:
150-200=2UNITS, 201-250=4UNITS, 251-300=6UNITS
Changed
acetaminophen [Tylenol Extra Strength] 500 mg tablet
500 mg PO Q6HPRN PRN (Reason: mild pain) Qty: 0 0RF
Discontinued
insulin degludec [Tresiba U-100 Insulin] 100 unit/mL solution
6 unit SC HS PRN (Reason: Diabetes)
Discharge Orders:
Discharge Patient (As Directed); Ordered 01/22/24
Ordered By: Shari Bergeron
Discharge Date and Time
Print Language: [id number]
--- NOTE | 2024-01-22 14:48 | PTCARENOTE ---
Pt's discharge paperwork reviewed, PIV and monitor removed, awaiting cousin to pick him up for discharge.
== END 2024-01-22 15:18 | disposition home health service (06) | DRG 640 ==
LOC: IMU 10:18
PROVIDERS: Nurse Practitioner Family; Radiology Vascular & Interventional Radiology; ADMITTING PHYSICIAN Student in an Organized Health Care Education/Training Program; CONSULT PHYSICIAN Internal Medicine; EMERGENCY PHYSICIAN Student in an Organized Health Care Education/Training Program; FAMILY PHYSICIAN Family Medicine
PROC: 5A1D70Z Performance of Urinary Filtration, Intermittent, Less than 6 Hours Per Day (ICD-10-PCS; 2024-01-19)
PROC: 0W9G3ZX Drainage of Peritoneal Cavity, Percutaneous Approach, Diagnostic (ICD-10-PCS; 2024-01-20)
DX: E87.5 Hyperkalemia (principal); I50.33 Acute on chronic diastolic (congestive) heart failure; N18.6 End stage renal disease; I13.2 Hypertensive heart and chronic kidney disease with heart failure and with stage 5 chronic kidney disease, or end stage renal disease; R18.8 Other ascites; I5A Non-ischemic myocardial injury (non-traumatic); E11.649 Type 2 diabetes mellitus with hypoglycemia without coma; D63.1 Anemia in chronic kidney disease; E11.22 Type 2 diabetes mellitus with diabetic chronic kidney disease; E11.42 Type 2 diabetes mellitus with diabetic polyneuropathy; K74.60 Unspecified cirrhosis of liver; E11.65 Type 2 diabetes mellitus with hyperglycemia; F32.A Depression, unspecified; Z99.2 Dependence on renal dialysis; E78.00 Pure hypercholesterolemia, unspecified; F41.9 Anxiety disorder, unspecified; G89.29 Other chronic pain; I16.0 Hypertensive urgency; I25.10 Atherosclerotic heart disease of native coronary artery without angina pectoris; I48.0 Paroxysmal atrial fibrillation; K21.9 Gastro-esophageal reflux disease without esophagitis; M48.00 Spinal stenosis, site unspecified; M54.50 Low back pain, unspecified; R29.6 Repeated falls; Z79.01 Long term (current) use of anticoagulants; Z79.4 Long term (current) use of insulin; Z79.899 Other long term (current) drug therapy; Z91.81 History of falling; Z87.891 Personal history of nicotine dependence; Z86.79 Personal history of other diseases of the circulatory system; Z88.5 Allergy status to narcotic agent
CPT/HCPCS: 88305; 49083; 71046; 80048; 80053; 82042; 82962; 83615; 83735; 83880; 84100; 84132; 84157; 84484; 85025; 85027; 85610; 86706; 87015; 87070; 87147; 87205; 87340; 88112; 89051; 90686; 93005; 96374; 96375; 97163; 97167; 97535; 99291; G0008; G0257; P9045; P9047; Q5106

== ENCOUNTER 2024-02-08 06:20 | Inpatient (IN) | payer OTHER, SELFPAY ==
[2024-02-08] VITALS (91 sets, daily range): BP systolic 64–212; BP diastolic 30–102; BMI 24.6
[2024-02-08 05:26] LABS: % Basophils 0.5 % (0-2); % Eosinophils 7.3 % (0-6); % Immature Granulocytes 1.1 % (0-0.5); % Monocytes 8.2 % (1.7-9.3); % Neutrophils 69.9 % (42.2-75.2); Absolute Basophils 0.1 10^3/uL (0-0.2); Absolute Eosinophils 0.9 10^3/uL (0-0.7); Absolute Immature Granulocytes 0.1 10^3/uL (0-0.05); Absolute Lymphocytes 1.7 10^3/uL (1.2-3.4); Absolute Monocytes 1.1 10^3/uL (0.1-0.6); Hematocrit 9.8 % (39.0-52.0); Hemoglobin 3.1 g/dL (13.0-18.0); Mean Corp Hgb Conc. 31.6 g/dL (33.0-37.0); Mean Corpuscular Hgb 27.7 pg (27.0-31.0); Mean Corpuscular Volume 87.5 fL (80.0-94.0); Mean Platelet Volume 9.9 fL (7.4-10.4); Nucleated Red Blood Cells % 0 % (-); Platelet Count 403 10^3/uL (130-400); Red Blood Cell Count 1.12 10^6/uL (4.70-6.10); Red Cell Dist. Width 23.2 % (11.5-14.5); White Blood Cell Count 12.9 10^3/uL (4.8-10.8)
[2024-02-08 05:52] LABS: PT > 100 Sec (11.4-14.6)
[2024-02-08] MEDS: PROTONIX 100 IV ×3 (05:52→21:34)
[2024-02-08] MEDS: PROTONIX IV 80 MG IV (05:53)
[2024-02-08 05:54] LABS: INR > 8
[2024-02-08 05:55] LABS: APTT > 200 Sec (23.4-35.0)
[2024-02-08 05:57] LABS: Troponin I 0.061 ng/ml
[2024-02-08 06:01] LABS: ALT (SGPT) 15 U/L (0-50); AST (SGOT) 33 U/L (17-59); Alkaline Phosphatase 195 U/L (38-126); Blood Urea Nitrogen 113 mg/dl (9-20); Calcium 8.8 mg/dl (8.4-10.2); Carbon Dioxide 14 mmol/L (22-30); Chloride 98 mmol/L (98-107); Estimated Creatinine Clearance 10 ml/min; Glucose 58 mg/dl (70-99); Potassium 5.9 mmol/L (3.5-5.1); Sodium 144 mmol/L (135-145); Total Bilirubin 0.4 mg/dl (0.2-1.3); eGFR 6.56
--- NOTE | 2024-02-08 06:19 | HPS.HSE ---
Family Physician
-
Family Physician: Rosemarie Paige
Chief Complaint
-
Diarrhea
History of Present Illness
Patient is a 58y M with PMH significant for ESRD on HD, A-Fib on Coumadin and chronic ascites requiring serial paracenteses who presents to ED complaining of N/V/D. Patient states thathe started with dark, loose stools on Thursday of this past
week. He has been extremely tired and fatigued and has not been very active as a result. He cannot quantify the number of BMs per day. his last HD session was on Thursday - having missed his and Thursday sessions due to his GI complaints
/ diarrhea. Patient was asdmitted here 01/18 - 01/21 with similar complaints of diarrhea / loose stools causing missed HD.
Early this AM, patient also developed N/V. He had emesis of dark red / grossly bloody emesis. EMS was called and he presented to the ED for further evaluation.
In the ED, patient is pale-appearing and lethargic. He denies any pain. He has had episodes of foul-smelling, dark liquid stool and hematemesis here in the ED.
Patient notes that he last took his Coumadin 'a day or so ago'.
Medical History
Past Medical History
Past Medical History: Reports Other
Additional Past Medical History:
ASCVD
Paroxysmal A-Fib
Hypertension
HFpEF
ESRD on HD
Anemia of CKD
DM-II
Peripheral neuropathy
Spinal stenosis
Cirrhosis / Ascites
GERD
Anxiety / Depression
Past Surgical History: Reports Other
Additional Past Surgical History:
LUE AVF
Back Surgery
Serial Paracenteses
Social History
Tobacco: Former Smoker
Alcohol: None
Drug: None
Family History
Family History: Not pertinent
Allergies / Home Medications
Allergies reflects when Allergies were last updated in [employer].
Home Medications with original date entered in [employer]
Allergy/Medication List:
Unable to Obtain Meds at present secondary to acuity.
Review of Systems
-
History Source: Patient
A 12 point ROS was completed and negative except as noted: Yes
Constitutional: Reports Fatigue; Denies Fever or Chills
Respiratory: Reports Trouble Breathing; Denies Cough
Cardiac: Denies Chest Pain or Palpitations
Abdomen/GI: Reports Nausea, Vomiting, Diarrhea, Bloody Stools and Black Stools; Denies Abdominal Pain
: Denies Dysuria or Frequency
Neurological: Reports Dizzy and Weakness; Denies Headache
Psych: Denies Depression or Anxiety
Physical Exam
Vital Signs
Vital Signs
Temp Pulse Resp BP Pulse Ox
95.7 F L 81 19 100/53 96
02/08/24 06:13 02/08/24 06:13 02/08/24 06:13 02/08/24 06:13 02/08/24 06:13
Physical Exam
General: Other (58y pale-appearing / jaundiced M appears acutely ill.)
HEENT: Other (Dry MM. Brisk carotid upstroke. No JVD.)
Respiratory: Other (Decreased BS bilaterally. Otherwise clear. No rales appreciated.)
Cardiac: S1/S2 and Tachycardia; No Murmur
GI: Other (Abdomen is softly distended. Not firm, tympanic. No fluid wave. No focal tenderness.)
Rectal: Other (Black / maroon heme positive stools. Pos emesis of dark maroon / red blood.)
Musculoskeletal: No Clubbing, No Cyanosis, No Edema and Other (LUE AVF with pos thrill / bruit)
Neuro: Awake and Alert
Laboratory Results
-
02/08/24 05:01
02/08/24 05:01
Laboratory Results
PT > 100 Sec (11.4-14.6) H 02/08/24 05:01
INR > 8 H* 02/08/24 05:01
APTT > 200 Sec (23.4-35.0) H* 02/08/24 05:01
Total Bilirubin 0.4 mg/dl (0.2-1.3) 02/08/24 05:01
AST 33 U/L (17-59) 02/08/24 05:01
ALT 15 U/L (0-50) 02/08/24 05:01
Alkaline Phosphatase 195 U/L (38-126) H 02/08/24 05:01
Troponin I 0.061 ng/ml H* 02/08/24 05:03
Impression/Plan
-
A/P: Patient is a 58y M with PMH significant for HTN, DM-II and ESRD on HD who presents to ED complaining of N/V/D and weakness.
Acute GI Bleed
Acute Blood Loss Anemia
Coumadin Coagulopathy
Anemia of ESRD
Hypovolemia secondary to the above
- Admit to ICU for further evaluation and treatment.
- Reverse anticoagulation with Vitamin K and K-Centra in the ED.
- Transfuse PRBCs (2 units ordered / started thus far).
- Follow H&H and provide additional units as needed.
- PPI infusion.
- Octreotide infusion for now given known cirrhosis and hematemesis.
- GI evaluation - prob eventual endoscopic examination.
- Gel Coat Sprayer evaluation.
- IVFs / volume replacement pending stability in BP.
- +/- pressor support if needed to maintain perfusion.
ESRD on HD
Metabolic Acidosis
Hyperkalemia
Cirrhosis secondary to the above
- Patient does not appear grossly volume overloaded- despite having missed last 2 HD sessions.
- Volume replacement as noted above given blood loss / anemia.
- Follow pulmonary exam, SpO2, etc and dose diuretics if needed.
- Nephrology evaluation for HD / UF needs during acute stay.
- No significant abdominal ascites on exam today - follow for changes.
Paroxysmal Atrial Fibrillation
- Rates stable.
- Hold all PO medications acutely.
- Hold Coumadin given bleeding / coagulopathy.
- History of supratherapeutic INRs in the past as well.
- ? alternate anticoagulation solution.
ASCVD
- No current chest pain. Mild troponin elevation consistent with prior values.
- Address anemia / bleeding as noted above.
- Follow for any new symptoms.
Chronic HFpEF
- No exam evidence of volume overload despite missed dialysis sessions.
- Significant volume losses likely due to GI bleeding / diarrhea.
- PRBCs + volume replacement to maintain BP / perfusion.
- Volume management on HD.
- Dose diuretics PRN for hypoxemia, dyspnea, etc.
DM-II
- Last A1C was < 6% and basal insulin stopped during that admission.
- Follow glucose and cover with SSI if needed.
DVT Prophylaxis: SCDs
Code Status: Full
[2024-02-08] MEDS: AQUAMEPHYTON 51 MG IV (06:33)
[2024-02-08] MEDS: KCENTRA 80 UNIT IV (06:50)
--- NOTE | 2024-02-08 07:01 | ED.GENMED ---
History of Present Illness
General
Chief Complaint: Rectal Bleeding
Source: patient and previous hospital records (Recent hospitalization January 18 to January 21 for acute CHF after missing a dialysis session.)
Exam Limitations: clinical condition
Time Seen by Provider: 02/08/24 05:15
Nursing documentation reviewed up to this point in time: agreed with
History of Present Illness
History of Present Illness:
This is a 58-year-old gentleman with history of end-stage renal disease, dialysis dependent on Thursday//Thursday, history of CAD, atrial fibrillation chronically maintained on Coumadin, insulin-dependent diabetes, hypertension, cirrhosis
with ascites who was recently hospitalized January 18 to January 21 after missing a dialysis session due to complaints of nausea, upper abdominal discomfort. He received hemodialysis on 2 consecutive days, treated for urgent hyperkalemia, he was
noted to be borderline hypoglycemic and hemoglobin A1c was quite low at 5.2% and thus his Lantus was discontinued on discharge.
Patient presents via EMS with complaints of several day history of maroon/bloody stools with progressive weakness. He missed his dialysis on Thursday due to weakness and bloody stools.
He admits to nausea but has had no vomiting. No falls. He complains of severe weakness without syncope, no chest pain, moderate dyspnea with minimal exertion but no shortness of breath at rest.
Past History
Past History
ED Past Medical History: CAD, GERD, HTN, IDDM, Renal failure (End-stage renal disease), Psychiatric (Depression) and Other (Chronic low back pain, ambulatory dysfunction, anemia, pneumonia, pericardial effusion, pleural effusion, frequent falls,
neuropathy)
ED Past Surgical History: Other (Left arm AV graft)
Social History
Tobacco: Non-smoker
Alcohol: None
Drug: None
Personal:
Living: group home
Employment: Disabled
Family History
Family History: Other (Noncontributory)
Phy Exam
Physical Exam
Physical Exam:
GENERAL: 58-year-old gentleman appears much older than stated age, appears critically ill, significant pallor, moderately fatigued but answering questions appropriately, without dyspnea. Thus far hemodynamically stable.
EYE: pupils equal and reactive. Significant conjunctival pallor
NECK: Supple, nontender, no meningismus, no significant adenopathy. No JVD.
ENT: posterior pharynx is clear, oral mucosa is dry. No rhinorrhea.
CARDIAC: Regular rate and rhythm. no murmur.
LUNGS: Clear breath sounds bilaterally, no acute respiratory distress, no wheezes/rales/rhonchi
ABDOMEN: Soft, nondistended, without focal tenderness, no r/g, no cvat. normoactive BS. Maroon heme positive stool.
NEUROLOGICAL: Awake, mildly drowsy, oriented x 3, no focal neuro deficits.
SKIN: Cool and dry, significant pallor, mild to moderate bilateral lower extremity edema, nontender.
MUSCULOSKELETAL: No clubbing or cyanosis, peripheral edema as above. Nontender.
PSYCH: Moderately blunted affect.
Course
Orders/Labs/Results
Orders:
Orders
02/08/24 04:51
Cardiac Monitoring- Treatment ONCE
IV Insert/Care/Rem.- Treatment PRN
O2 Therapy [RESP] Urgent
Titrate/Wean O2 to maintain O2 sat greater than (%): 93
Special Instructions: MAINTAIN CONTINOUS O2 SATS > OR = 93%
Pulse Ox/spot Check [RESP] Urgent
Quantity: 1
Special Instructions: ON ROOM AIR
02/08/24 05:01
Type+Screen Urgent
Complete Blood Count/With Diff Urgent
Comprehensive Metabolic Panel Urgent
PTT Urgent
Prothrombin Time Urgent
02/08/24 05:03
Troponin I Urgent
02/08/24 05:27
* Blood Bank Products Urgent
Blood Bank Products: *Packed RBC Leuko(PRBC's)
Quantity: 2
Transfuse Today: Yes
Reason: Anemia
Patient will require pre-treatment for transfusion:: No
02/08/24 05:30
IV Insert/Care/Rem.- Treatment PRN
Pantoprazole 80 mg/100 ml Nss [Protonix] 80 mg in 100 ml IV NOW
Pantoprazole [Protonix IV] 80 mg IV NOW STA
02/08/24 06:06
Phytonadione [Aquamephyton] 10 mg 0.9% Sodium Chloride 50 ml [Nss] 50 ml IV NOW
02/08/24 06:08
Admit/Transfer Patient As Directed
Co-Sign Provider:
Level of Care: Inpatient admission
Assign to:: ICU
Physician / Group: Cesar
Diagnosis: GI Bleed
Reason for Hospitalization: GI Bleed
Expected length of stay greater than two midnights?: Yes
ELOS- Estimated Length of Stay in days: 4
I certify the patient meets the requirements for IP care: Yes
PRN Pain Medication Management As Directed
May give lesser potent ordered pain med per pt: Yes
preference::
Protocol:: Medication orders for pain may be administered in a
manner that supports deferring to patient preference
when the pt is:
- Requesting an ordered lesser potent pain medication.
Least to most potent pain medications are defined
as: acetaminophen < NSAID < tramadol < opioids
(morphine, oxycodone, hydromorphone).
- Requesting a lesser dose of the same medication IF
ORDERED.
- Requesting a less intrusive route of administration
if both routes are prescribed by the provider (PO <
IV).
02/08/24 06:10
Code Status As Directed
Resuscitation Status: Full Code
Abnormal Lab Results
02/08/24 02/08/24
05:01 05:03
WBC 12.9 H 10^3/uL
(4.8-10.8)
RBC 1.12 L 10^6/uL
(4.70-6.10)
Hgb 3.1 L* g/dL
(13.0-18.0)
Hct 9.8 L* %
(39.0-52.0)
MCHC 31.6 L g/dL
(33.0-37.0)
RDW 23.2 H %
(11.5-14.5)
Plt Count 403 H 10^3/uL
(130-400)
Abs Immat Gran (auto) 0.1 H 10^3/uL
(0-0.05)
Absolute Neuts (auto) 9.0 H 10^3/uL
(1.4-6.5)
Absolute Monos (auto) 1.1 H 10^3/uL
(0.1-0.6)
Absolute Eos (auto) 0.9 H 10^3/uL
(0-0.7)
Immature Gran % 1.1 H %
(0-0.5)
Lymphocytes % 13.0 L %
(20.5-51.1)
Eosinophils % 7.3 H %
(0-6)
PT > 100 H Sec
(11.4-14.6)
INR > 8 H*
APTT > 200 H* Sec
(23.4-35.0)
Potassium 5.9 H mmol/L
(3.5-5.1)
Carbon Dioxide 14 L* mmol/L
(22-30)
BUN 113 H* mg/dl
(9-20)
Creatinine 8.6 H* mg/dL
(0.7-1.3)
Glucose 58 L mg/dl
(70-99)
Alkaline Phosphatase 195 H U/L
(38-126)
Troponin I 0.061 H* ng/ml
Total Protein 6.0 L g/dl
(6.3-8.2)
Albumin 3.0 L g/dl
(3.5-5.0)
Crossmatch IS Only See Detail
02/08/24 05:01
02/08/24 05:01
Vital Signs
Initial and Last Documented VS:
Initial Vital Signs
Temp Pulse Resp BP Pulse Ox
95.5 F L 86 19 138/58 100
02/08/24 04:52 02/08/24 04:52 02/08/24 04:52 02/08/24 04:52 02/08/24 04:52
Last Documented Vital Signs
Temp Pulse Resp BP Pulse Ox
95.4 F L 87 14 150/55 96
02/08/24 06:40 02/08/24 06:45 02/08/24 06:45 02/08/24 06:45 02/08/24 06:45
MDM/Problems Addressed
Differential Diagnosis Includes:
Patient presents with several day history of rectal bleeding and presents with significant pallor, hemoglobin critically low at 3.1. Baseline hemoglobin of 8
Thus far, surprisingly hemodynamically stable while supine.
Concern for coagulopathy related to warfarin.
He has been typed and crossed for stat 2 units of packed red blood cells. Patient states he has never required blood transfusion in the past. No prior history of GI bleeding.
Concern for upper versus lower GI bleed, will initiate Protonix bolus and drip, give stat 2 units of packed red blood cells and if patient becomes unstable will give O- blood.
Due to active GI bleed we will plan for vitamin K and Kcentra, awaiting stat pro time for dosing and administration.
Troponin is pending. Concern for patient denies chest pain but due to severe anemia concern for endorgan damage/hemorrhagic shock.
Patient is critically ill and will require acute hospitalization, ICU.
Chronic conditions affecting care: DM, HTN, CAD, Arrhythmia and Kidney disease
*Pulse Oximetry
Patient hypoxic: no
*Corporate Communications Associate Interpretation
Rate: normal
Interpretation: normal
Rhythm: sinus
*Critical Care Note
Total Time (30-74mins, 75-104mins- exclusive of procedures): 50
comment:
Critical care statement: A total of 50 minutes of critical care time was provided for this patient. This includes management of unstable vital signs, evaluation of the patient at bedside, reviewing the patient's pertinent medical records, discussion
with consultants, review of old EKGs and review of pertinent medical records. This time with separate from time utilized to perform the aforementioned documented procedures
ED Attending Note
-
Portions of this chart may have been created with voice recognition software.� Occasional wrong word or��sound alike� substitutions may have occurred due to the inherent limitations of voice recognition software.
Discharge Plan
Departure
Patient Disposition: Admit
Date of Disposition: 02/08/24
Time of Disposition: 05:40
Admit to: ICU
Admit to doctor: Cesar
Presentation/result/management discussed w/ accepting MD/DO: Hospitalist
Condition: Critical
Discharge Problem:
Acute gastrointestinal hemorrhage, severe blood loss anemia, Acute on chronic anemia, Warfarin-induced coagulopathy, Hemorrhagic shock
Interventions
Interventions:
*Risk Screen - Suicide Last Done: 02/08/24 04:52
*General Assessment Last Done: 02/08/24 04:52
*Neglect/Abuse Screening Last Done: 02/08/24 04:52
ED- Fall Risk Assessment Last Done: 02/08/24 05:03
*ED COVID-19 Vaccine History Last Done: 02/08/24 04:52
KY-Dtxtow-Zieyrslvck Assessment Last Done: 02/08/24 05:03
ED- Cardiac Assessment Last Done: 02/08/24 05:03
ED- Pulmonary Assessment Last Done: 02/08/24 05:03
--- NOTE | 2024-02-08 07:43 | PHANOTE ---
med rec note- patient has no ecw to confirm medication, patient at this time in stretcher being moved to floor, tried to ask patient about warfarin dose but unable to get an answer, will try to call home. patient sister on file. patient pharmacy
records do not match items on med list or have not been filled recently
--- NOTE | 2024-02-08 08:18 | CON.INTV ---
Consultation
Consultation Request
Date/Time Consultation Requested: 02/08/2024746
Date/Time Consultation Performed: 02/08/2024813
Requesting Provider: Dr. Guerrero
Performing Provider: Dr. Sanderson
Reason for Consultation: GI bleed
Medical History
-
Chief Complaint: Generalized weakness and rectal bleeding
History of Present Illness:
58-year-old male with a past medical history of hyperlipidemia, ESRD on dialysis, DM type II, depression and GERD who presents with worsening generalized weakness + rectal bleeding. Pt is a poor historian. Patient has been having dark, loose stool
starting on Thursday from this past week. He has been extremely tired and fatigued since that time. He cannot say exactly many bowel movements he has had per day. He admits that he missed dialysis recently with last HD session on last Thursday (6
days ago). Due to his GI complaints/diarrhea he was unable to go to his dialysis sessions. On the morning of arrival, he developed nausea/vomiting with dark red bloody emesis. EMS was called and he came to the ER for further management where he
was found to be pale appearing and lethargic. He also had dark liquid stool with hematemesis in the ER. He says he last took his Coumadin 'a day or so ago.' In the ER he was hypothermic to 95.5 �F, pulse rate 86, breathing at 19 breaths/min, BP
138/58 and saturating 100% on room air. Labs showed severe anemia with Hb 3.1, WBC mildly elevated at 12.9, platelet count 4 3, INR >8, PTT >200, serum bicarbonate level 14, anion gap elevated at 32, creatinine 8.6, glucose 58, ALP 195, troponin
0.061, and TSH WNL at 2.77. CXR showed cardiomegaly with a small right-sided pleural effusion. In the ER patient was given Protonix 80 mg IVP + started on Protonix drip. 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
consulted for additional recommendations/management.
This morning I saw and evaluated the patient. He was on 2 L/min saturating 100%, heart rate 62 and BP 158/70. He is having dark, maroon colored stool. It is loose. He is vomiting coffee ground emesis. He does awaken to request for pain
medications saying he has pain 'everywhere.' He is otherwise lethargic and then falls back asleep rather quickly. He has received total of 2 units PRBC since this morning. He is not having any respiratory distress and appears comfortable on 2
L/min nasal cannula. ROS limited due to his acute clinical status.
PMHx: A-fib on Coumadin, history of HFpEF, ESRD on HD, history of COVID-19, former tobacco smoker, GERD, DM type II, depression, anemia, history of transaminitis, hypertension, spinal stenosis, peripheral neuropathy, liver cirrhosis with history of
recurrent ascites requiring paracentesis (last para on 01/20/2024)
PSHx: Herniated disks, hernia of repair, coronary stents, femoropopliteal, left arm AV fistula, tumor removed from finger, right leg surgery
Past Medical History
Past Medical History: Other (Above as per HPI)
Past Surgical History: Other (Above as per HPI)
Social History
Tobacco: Former Smoker
Alcohol: None
Drug: None
Family History
Family History: Reviewed & Not Pertinent
Allergies / Home Medications
Allergies
Allergy/AdvReac Type Severity Reaction Status Date / Time
morphine Allergy Unknown Verified 02/08/24 04:52
Home Medications
�Medication �Instructions �Recorded �Confirmed �Last Taken �Type
atorvastatin 80 mg tablet 80 mg PO HS High Cholesterol 12/23/22 01/21/24 09/08/23 History
icosapent ethyl 1 gram capsule 2 g PO BID High Cholesterol 12/23/22 01/21/24 09/09/23 History
(Vascepa)
lidocaine-prilocaine 2.5 %-2.5 % 1 applic topical MOWEFR PRN port 12/23/22 01/21/24 Unknown History
topical cream access
nifedipine 60 mg tablet,extended 60 mg PO BID Blood Pressure #0 tabs 02/13/23 01/21/24 09/09/23 Rx
release
sevelamer carbonate 800 mg tablet 1,600 mg PO MEALS Kidney Disease 03/30/23 01/21/24 09/09/23 History
bumetanide 2 mg tablet 2 mg PO SUTUTHSA@0800,1900 Fluid 07/29/23 01/21/24 09/08/23 History
Retention/Swelling
losartan 100 mg tablet 100 mg PO BID Blood Pressure 07/29/23 01/21/24 09/09/23 History
sertraline 100 mg tablet 100 mg PO DAILY Mental Health 07/29/23 01/21/24 09/09/23 History
vitamin B complex-vitamin C 100 1 tab PO DAILY Supplement 07/29/23 01/21/24 09/08/23 History
mg-folic acid 1 mg tablet
(Dialyvite)
gabapentin 100 mg capsule 100 mg PO HS Pain 09/09/23 01/21/24 09/08/23 History
pantoprazole 40 mg tablet,delayed 40 mg PO BID Gastrointestinal Issue 09/09/23 01/21/24 09/09/23 History
release (Protonix)
spironolactone 25 mg tablet 25 mg PO DAILY Blood pressure #30 09/16/23 01/21/24 Unknown Rx
tabs
clonidine HCl 0.2 mg tablet 0.2 mg PO TID Blood pressure 10/29/23 01/21/24 Unknown History
hydralazine 100 mg tablet 100 mg PO TID Blood Pressure 10/29/23 01/21/24 Unknown History
warfarin 3 mg tablet 4 mg PO MOTUWETHFRSA@2200 Blood 10/29/23 01/21/24 Unknown History
Clot Prevention/Tx
insulin lispro 100 unit/mL 0 sliding scale dose SC AC Diabetes 12/11/23 01/21/24 Unknown History
subcutaneous pen
ondansetron HCl 4 mg tablet 4 mg PO Q8HPRN PRN NAUSEA 12/11/23 01/21/24 Unknown History
acetaminophen 500 mg tablet 500 mg PO Q6HPRN PRN mild pain #0 01/22/24 01/21/24 Unknown Rx
(Tylenol Extra Strength) tabs
Review of Systems
-
Unable to Obtain full review of systems at this time due to: Acuity (Lethargic)
Vitals / Labs / Diagnostic Testing
Vital Signs
Temp Pulse Resp BP Pulse Ox
95.8 F L 94 17 115/68 94
02/08/24 08:51 02/08/24 08:51 02/08/24 08:51 02/08/24 08:51 02/08/24 08:15
Lab Data
02/08/24 05:01
Laboratory Results
02/08/24
05:01
PT > 100 H
INR > 8 H*
APTT > 200 H*
Diagnostic Testing:
Physical Exam
-
HEENT: Normocephalic and Anicteric
Cardiovascular: Irregular Rhythm (Irregularly irregular), Murmur (YOHANA heard best at LUSB) and Peripheral Edema (+2 lower extremity pitting edema bilaterally)
Respiratory: Wheeze (negative), Rales (Bilateral), Rhonchi (negative) and Non-Labored Respirations
GI: Soft, Non Distended, Non Tender and Normal Bowel Sounds
Neurology: Tremors (negative) and Other (Lethargic although opening eyes to command but then falling back asleep)
Skin: Warm and Dry
General: Respiratory Distress (negative), Comfortable, Chills (negative) and Sweats (negative)
Assessment
-
Assessment: 58-year-old male with a past medical history of hyperlipidemia, ESRD on dialysis, DM type II, depression and GERD who presents with worsening generalized weakness + rectal bleeding. Pt is a poor historian. Patient has been having
dark, loose stool starting on Thursday from this past week. He has been extremely tired and fatigued since that time. He cannot say exactly many bowel movements he has had per day. He admits that he missed dialysis recently with last HD session
on last Thursday (6 days ago). Due to his GI complaints/diarrhea he was unable to go to his dialysis sessions. On the morning of arrival, he developed nausea/vomiting with dark red bloody emesis. EMS was called and he came to the ER for further
management where he was found to be pale appearing and lethargic. He also had dark liquid stool with hematemesis in the ER. He says he last took his Coumadin 'a day or so ago.' In the ER he was hypothermic to 95.5 �F, pulse rate 86, breathing at
19 breaths/min, BP 138/58 and saturating 100% on room air. Labs showed severe anemia with Hb 3.1, WBC mildly elevated at 12.9, platelet count 4 3, INR >8, PTT >200, serum bicarbonate level 14, anion gap elevated at 32, creatinine 8.6, glucose 58,
ALP 195, troponin 0.061, and TSH WNL at 2.77. CXR showed cardiomegaly with a small right-sided pleural effusion. In the ER patient was given Protonix 80 mg IVP + started on Protonix drip. He was then admitted to the ICU for further care with
[employer] systems [employer] services consulted for additional recommendations/management.
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
cirrhosis with history of recurrent ascites requiring paracentesis (last para on 01/20/2024)
Impression:
#Acute blood loss anemia - having coffee ground emesis and rectal bleeding - could be due to brisk UGIB vs combined upper and lower GI bleeds
#Thrombocytosis likely reactive
#Symptomatic anemia
#Acute respiratory failure with hypoxia on supplemental oxygen
#Found down - could be syncopal event due to symptomatic anemia versus hypoglycemia versus generalized weakness
#DM type II c/b hypoglycemia
#Decompensated cirrhosis with borderline splenomegaly
#Hx of A-fib now on coumadin now with supratherapeutic INR
#ESRD on HD with multiple missed HD sessions now with mild hyperkalemia and elevated creatinine
#Small right-sided pleural effusion likely due to mild volume overload from missed HD sessions in the setting of ESRD
#Metabolic acidosis with increased anion gap due to ESRD with multiple missed HD sessions
#Elevated ALP
#Elevated troponin likely due to type II RI with demand ischemia
#Chronic HFpEF with mild PH and Hx of bilateral pleural effusions (per TTE from 03/2023)
Plan:
- Large bore IV x2
- PPI gtt
- Octreotide gtt
- GI on board - recs appreciated - given Hx of cirrhosis, will start ceftriaxone x 7 days, hold all anti-platelets/anti-coagulants until GI bleed resolves and Hb stable for >48-72 hrs
- Eventual EGD as per GI
- Anti-emetics as needed - monitor QTc
- Maintain SpO2 >90-94% with supplemental O2 and wean off as tolerated
- Maintain MAP>65
- Has generalized pain --> will treat pain accordingly as tolerated
- Check abd US with dopplers to assess for ascites
- Replete electrolytes with K>4, Mg>2
- Maintain euglycemia with goal BG 140-180, avoiding hypoglycemia - will start supplemental dextrose with D5 1/2NS @40cc/hr and once on HD will try to wean off gtt; unfortunately he will remain NPO given his active GIB; continue BG checks at q4hr,
more frequent if needed
- Trend serum HCO3 level; check blood gas to assess pH and pCO2
- Monitor mental status, check ammonia level, and limit narcotics if possible given his already lethargic mental state
- Trend H/H and transfuse if needed to keep Hb>7g/dL; kep plt>20k, unless there is concern for bleeding then keep plt>50k
- Trend troponin until it begins to downtrend
- s/p PCC + vitamin K (both on 02/08/2024), c/t trend INR and hold coumadin
- prn nebulized bronchodilators - not currently bronchospastic
- Incentive spirometer encouraged 10x per hour for at least 4 hrs a day
- DVT ppx: SCDs for now
Critical care statement: A total of 44 minutes of critical care time was provided for this patient today. This includes management of unstable vital signs, evaluation of the patient at bedside, reviewing the patient's pertinent medical records
including radiographs, microbiology, laboratory evaluations, and discussion with primary team, consultants, pharmacy, nutrition, physical therapy, case management, charge nurse, critical care nursing, and respiratory therapy.
[2024-02-08] MEDS: ZOFRAN 4 MG IV (08:29)
[2024-02-08] MEDS: DEXTROSE 50% SYRINGE 12.5 GRAMS IV ×2 (08:30→09:58)
[2024-02-08 08:39] LABS: Glucose - Point of Care 45 mg/dl (70-99)
[2024-02-08] MEDS: SANDOSTATIN 500.6 MCG IV ×2 (08:44→20:02)
--- NOTE | 2024-02-08 08:49 | CON.GI ---
Addendum entered and electronically signed by Derek Juárez MD 02/08/24 14:03:
I saw and examined the patient.
The COMMISSARY REPRESENTATIVE or PA's note was reviewed and I agree with the note.
Comment:
Pt is a 58 y/o with significant history of PAF, on coumadin, CAD, ESRD, cirrhosis by imaging, esophagitis by EGD earlier this year at [facility] who had missed his dialysis and then had dark emesis and stool starting last thursday, became lethargic
brought to the ER and had dark emesis and melena. Admitted with an INR >8 and hgb of 3.1. Currently no bleeding, on dialysis, on 4th unit of prbcs an got kcentra and vitamin K.
sedate but arousable
abd: soft, nontender
impression:
cirrhosis unknown cause
GI bleed
ascites
coagulopathy
HEYDI, hep BsAg neg
Plan:
IV PPI
IV octreotide (no varices by ct scan or prior egd)
getting dialysis and transfusion
keep hgb 8-9
follow INR
antibiotics for hx ascites
check hep C antibody
will need eventual EGD when stabilized likely in am but earlier if rebleeds
Original Note:
Consultation
-
Date/Time Consultation Requested: 02/08/24 0747
Date/Time Consultation Performed: 02/08/24 0840
Requesting Provider: Dr. Guerrero
Performing Provider: Dr. Juárez/MICHELLE Estrella
Reason for Consultation: GI Bleed
Medical History
Chief Complaint / HPI
Chief Complaint: GI Bleed
History of Present Illness:
58-year-old male with a past medical history significant for paroxysmal atrial fibrillation on Coumadin, CAD, end-stage renal disease on hemodialysis T//Thu, iron deficiency anemia, heart failure with preserved ejection fraction, history of
pleural effusions with pericardiocentesis, hypertension, spinal stenosis, GERD, ?Dunlap's Esophagus, prior C-diff, DM, CHF, migraines, gastritis, constipation, new onset ascites with recent outpatient paracentesis, cirrhosis on imagining in
December. Who presents to the ER complaining of N/V/D. We was having dark stools and missed his and Thursday HD sessions. He then had N/V with dark bloody vomiting. We are asked to evalaute for the same. The patient is on Warfarin. Last
dose 'day day or so a ago' Hgb on presentation was 3.1 and INR > 8.0 .Previous Hgb on 01/20/24 was 8.6. Patient was started on Protonix bolus and drip. Started on Octreotide drip as well as given KCentra and Vitamin K. We last saw him in August 2023
during hospitalization for abdominal pain. Prior to that he had an admission in July with EGD at [facility] with esophagitis. He reportedly had EGD/Colonoscopy at [facility] prior to the [facility] admission and was told he had Barretts esophagus but
no obvious source of bleeding and was recommended to have Video capsule study. Information obtained from records as patient sleepy but arousable. Patient apparently started with dark loose stools on Thursday this past week. He missed his
hemodialysis on and Thursday. He apparently developed nausea and vomiting with dark emesis. He lives with a cousin. Apparently he was also found on the floor. He was brought into the emergency room for further evaluation. He has a
fecal management device in place with dark/reddish output. He apparently did vomit which was thin dark material. I did discuss with RN who has been taking care of him since arrival from the emergency department in the ICU. The patient has
received 2 units packed red blood cells. We are awaiting. Patient is lethargic but able to answer the fact that he is in [facility] that is 2023. He dozes off quickly he denies any abdominal pain or nausea and vomiting at the present
time. He denies any chest pain or shortness of breath. He is currently on a Tj hugger. He has a left AV fistula. He has 2 venous access sites on his right extremity a 20-gauge and an 18-gauge. Blood pressure is stable without any pressor
support. He is not tachycardic. He has had no imaging. Temperature 94.3. Currently 95.8, heart rate 94, blood pressure 115/68, respiration 17, O2 sat 93%. WBC 12.9, hemoglobin 3.1, hematocrit 9.8, platelets 403, PT greater than 100, INR greater
than 8, PTT greater than 200, sodium 144, potassium 5.9, chloride 98, CO2 14, BUN 113, creatinine 8.6, glucose 58, total bilirubin 0.4, AST 33, ALT 15, alk phos 195, troponin 0.061, albumin 3.0 TSH pending.
Past Medical History
Past Medical History: Arrhythmias (Paroxysmal atrial fibrillation on Coumadin), CAD, CHF, GERD (? Dunlap's esophagus), HTN, Renal Failure (On hemodialysis Thursday) and Other (Spinal stenosis, chronic iron deficiency anemia, pleural
effusion, cirrhosis (new dx 12/2023), ascites, )
Past Surgical History: Other (Left lower arm AV fistula)
Social History
Tobacco: Former Smoker
Alcohol: Former (quit 5 years ago)
Drug: None
Living: With Family (cousin)
Family History
Family History: Other (no family hx colon CA or polyps)
Allergies / Home Medications
Allergy/AdvReac Type Severity Reaction Status Date / Time
morphine Allergy Unknown Verified 02/08/24 04:52
�Medication �Instructions �Recorded
atorvastatin 80 mg tablet 80 mg PO HS High Cholesterol 12/23/22
icosapent ethyl 1 gram capsule 2 g PO BID High Cholesterol 12/23/22
(Vascepa)
lidocaine-prilocaine 2.5 %-2.5 % 1 applic topical MOWEFR PRN port 12/23/22
topical cream access
nifedipine 60 mg tablet,extended 60 mg PO BID Blood Pressure #0 tabs 02/13/23
release
sevelamer carbonate 800 mg tablet 1,600 mg PO MEALS Kidney Disease 03/30/23
bumetanide 2 mg tablet 2 mg PO SUTUTHSA@0800,1900 Fluid 07/29/23
Retention/Swelling
losartan 100 mg tablet 100 mg PO BID Blood Pressure 07/29/23
sertraline 100 mg tablet 100 mg PO DAILY Mental Health 07/29/23
vitamin B complex-vitamin C 100 1 tab PO DAILY Supplement 07/29/23
mg-folic acid 1 mg tablet
(Dialyvite)
gabapentin 100 mg capsule 100 mg PO HS Pain 09/09/23
pantoprazole 40 mg tablet,delayed 40 mg PO BID Gastrointestinal Issue 09/09/23
release (Protonix)
spironolactone 25 mg tablet 25 mg PO DAILY Blood pressure #30 09/16/23
tabs
clonidine HCl 0.2 mg tablet 0.2 mg PO TID Blood pressure 10/29/23
hydralazine 100 mg tablet 100 mg PO TID Blood Pressure 10/29/23
warfarin 3 mg tablet 4 mg PO MOTUWETHFRSA@2200 Blood 10/29/23
Clot Prevention/Tx
insulin lispro 100 unit/mL 0 sliding scale dose SC AC Diabetes 12/11/23
subcutaneous pen
ondansetron HCl 4 mg tablet 4 mg PO Q8HPRN PRN NAUSEA 12/11/23
acetaminophen 500 mg tablet 500 mg PO Q6HPRN PRN mild pain #0 01/22/24
(Tylenol Extra Strength) tabs
Review of Systems
-
Unable to obtain full review of systems at this time due to: Other (patient lethargic, however denies abd pain, n/v, CP)
Vital Signs
Temp Pulse Resp BP Pulse Ox
94.3 F L 97 18 185/47 94
02/08/24 08:15 02/08/24 08:15 02/08/24 08:15 02/08/24 08:15 02/08/24 08:15
Physical Exam
Exam
General: Other (pale, twitching, appears chronically ill, dry, tj hugger on patient )
HEENT: Anicteric
Respiratory: Clear (anterior)
Cardiac: Irregular Rhythm
GI: Soft, Non Tender, Normal Bowel Sounds and Distended
Rectal: Other (fecal management device in place (thin dark maroon/black stool))
Musculoskeletal: Edema (+ 1 edema B/L LE)
Skin: Dry
Neuro: Other (lethargic, arousable, oriented to person, place and year)
Psych: Calm
Results
WBC 12.9 10^3/uL (4.8-10.8) H 02/08/24 05:01
Hgb 3.1 g/dL (13.0-18.0) L* 02/08/24 05:01
Hct 9.8 % (39.0-52.0) L* 02/08/24 05:01
MCV 87.5 fL (80.0-94.0) 02/08/24 05:01
Plt Count 403 10^3/uL (130-400) H 02/08/24 05:01
Absolute Neuts (auto) 9.0 10^3/uL (1.4-6.5) H 02/08/24 05:01
PT > 100 Sec (11.4-14.6) H 02/08/24 05:01
INR > 8 H* 02/08/24 05:01
APTT > 200 Sec (23.4-35.0) H* 02/08/24 05:01
Sodium 144 mmol/L (135-145) 02/08/24 05:01
Potassium 5.9 mmol/L (3.5-5.1) H 02/08/24 05:01
Chloride 98 mmol/L (98-107) 02/08/24 05:01
Carbon Dioxide 14 mmol/L (22-30) L* 02/08/24 05:01
BUN 113 mg/dl (9-20) H* 02/08/24 05:01
Creatinine 8.6 mg/dL (0.7-1.3) H* 02/08/24 05:01
Calcium 8.8 mg/dl (8.4-10.2) 02/08/24 05:01
Total Bilirubin 0.4 mg/dl (0.2-1.3) 02/08/24 05:01
AST 33 U/L (17-59) 02/08/24 05:01
ALT 15 U/L (0-50) 02/08/24 05:01
Alkaline Phosphatase 195 U/L (38-126) H 02/08/24 05:01
Diagnostic Image Results:
none
Prior GI Procedures:
EGD: Done at [facility] in ? Will send for records
EGD : Done July 2023 [facility] --> Will send for records ? Esophagitis
Colonoscopy: Done at [facility] in ? Will send for records
[facility] --> EGD and colonoscopy at that time with noted Dunlap's esophagus which he takes PPI for but overall no reported no significant findings on his EGD or colonoscopy to explain his anemia/heme positive stool at that time and was
recommended to have a capsule study which was not completed.
Assessment / Plan
-
58-year-old male with a past medical history significant for paroxysmal atrial fibrillation on Coumadin, CAD, end-stage renal disease on hemodialysis T//Thu, iron deficiency anemia, heart failure with preserved ejection fraction, history of
pleural effusions with pericardiocentesis, hypertension, spinal stenosis, GERD, ?Dunlap's Esophagus, prior C-diff, DM, CHF, migraines, gastritis, constipation, new onset ascites with recent outpatient paracentesis, cirrhosis on imagining in
December. Who presents to the ER complaining of N/V/D. We was having dark stools and missed his and Thursday HD sessions. He then had N/V with dark bloody vomiting. We are asked to evalaute for the same. The patient is on Warfarin. Last
dose 'day day or so a ago' Hgb on presentation was 3.1 and INR > 8.0 .Previous Hgb on 01/20/24 was 8.6. Patient was started on Protonix bolus and drip. Started on Octreotide drip(however need another line as not compatible with Protonix) as well as
given KCentra and Vitamin K. He has since been transfused 2 units PRBC. On Tj hugger for Temp 94.5. We last saw him in August 2023 during hospitalization for abdominal pain. Prior to that he had an admission in July with EGD at [facility] with
esophagitis. He reportedly had EGD/Colonoscopy at [facility] prior to the [facility] admission and was told he had Barretts esophagus but no obvious source of bleeding and was recommended to have Video capsule study. Information obtained from records
as patient sleepy but arousable. Some dark thin emesis, no red blood. With fecal management device with dark black/maroon output. BP stable, no pressors. Awaiting repeat labs.
Impression:
Acute GI Bleed -->Severe now with Hgb of 3.1. Prior hx of esophagitis (July 2023 at [facility], prior Hx GIB/anemia at [facility] with no bleeding E/C identified with recommended VCE recommended in past)
Acute blood loss anemia on hx of chronic anemia. Baseline Hgb in the 8 range.
Coagulopathy INR > 8 (Warfarin)
ESRD on HD -> //Thu--> last HD was 02/02/24 (missed 02/03 and 02/05)
Cirrhosis -> imaging (12/2023)
Ascites- Paracentesis (01/20/24)
Hyperkalemia
Metbolic acidosis
HFpEF
PAF
Barretts esophagus
Plan:
-Await repeat labs, Hgb and INR
-Obtain central access, discussed with RN
-Continue Pantoprazole gtt
-When able to obtain access then start octreotide gtt
-Transfuse to keep Hgb in the 7-8 range
-Ensure correction of INR
-Renal consult and Crit Care consults pending
-Ceftriaxone 1 gm daily for GIB ppx, however does not have known varices. Reviewed prior CT in August and recent US in Dec.
-Await CXR
-Will need US abdomen to eval for ascites again
-EGD when stable
-CBC, CMP, Direct bili, PT/INR in am
-Records release form [facility].
-Further recommendations to be forthcoming
-
-
Thank you for consultation and allowing me to participate in the patient's care. Please call the salon professional GI physician during the after hours with any questions or concerns.
--- NOTE | 2024-02-08 08:56 | PTCARENOTE ---
patient received from ED, vomiting brown coffee ground fluid, fecal management system in place, small amount maroon stool, leaking clots around insertion. irrigated. patient lethargic. c/o back pain, very weak, but able to move arms and legs
slightly. hypothermic. Kirill hugger applied. monitor sinus tachycardia, with burst afib, pvc. left arm AV fistula. abdomen with ascites. lungs with crackles throughout, on room air. second unit prbcs transfused without signs reaction. Protonix
infusing. octreotide initiated. Zofran administered for vomiting. AccuCheck 45, D50 administered, recheck per flow sheet.
[2024-02-08 08:59] LABS: Glucose - Point of Care 84 mg/dl (70-99)
--- NOTE | 2024-02-08 09:35 | W.CON.NEPH ---
Consultation
-
Date/Time Consultation Requested: 02/08/24 0747
Date/Time Consultation Performed: 02/08/24929
Requesting Provider: Reginaldo Alanis
Performing Provider: Jesscia Burns
Reason for Consultation: ESRD
Medical History
-
Chief Complaint: Diarrhea , GIB
History of Present Illness:
58 yo man with hx ESRD on HD T//Sat at [facility], non compliance with HDs, residual urine output on bumex, CAD, atrial fibrillation on coumadin, IDDM, HTN on Procardia, losartan, clonidine,hydralazine, Aldactone, HLD on statin, Vascepa,
hyperphosphatemia on Renvela, recent new diagnosis of cirrhosis and ascites (hospitalization 12/29-01/01/24,01/19/24 to 01/22/24 ) who presents to ED complaining of N/V/D. Patient states that he started with dark, loose stools on Thursday of this
past week. He has been extremely tired and fatigued and has not been very active as a result. He cannot quantify the number of BMs per day. his last HD session was on Thursday 02/01 - having missed his and Thursday sessions due to his GI
complaints / diarrhea.
Early this AM, patient also developed N/V. He had emesis of dark red / grossly bloody emesis. EMS was called and he presented to the ED for further evaluation. Reportedly he has had episodes of foul-smelling, dark liquid stool and hematemesis
here in the ED. patient is lethargic during visit and unable to provide history, most of the history obtained through records and nursing, hb noted at 3.1, (last hb was 8.6 on 01/19). INR >8, mildly hypotensive on admit but now improved s/p 2 PRBCs.
repeat h/h pending. He also hypothermic. K level 5.9. BG in 45s s/p 1 amp dextrose.
He lives at home with his cousin who helps him to transport to HD.
Past Medical History
1. ESRD x5 years presumed due to diabetic nephropathy.
2. Chronic pain.
3. Chronic back pain.
4. Atrial fibrillation on Coumadin.
5. Chronic anemia.
6. History of thoracentesis.
cirrhosis and ascites s/p paracentesis
7. History of pericardiocentesis at outside hospital back in fall
of 2022.
8. Elevated HEYDI with subsequent negative testing.
9. Peripheral neuropathy.
10. History of left upper extremity radiocephalic AV fistula.
11. History of hypertension on multi-drug regimen.
12. History of coronary artery disease.
13. History of peripheral eosinophilia.
14. Hyperphosphatemia.
Past Medical History: Other
Past Surgical History: Other (Left arm AVG)
Social History
Tobacco: Former Smoker
Alcohol: Former
Drug: None
Living: With Family (cousin)
Family History
Family History: Not Pertinent
Allergies / Home Medications
Allergy/AdvReac Type Severity Reaction Status Date / Time
morphine Allergy Unknown Verified 02/08/24 04:52
�Medication �Instructions �Recorded �Confirmed �Type
atorvastatin 80 mg tablet 80 mg PO HS High Cholesterol 12/23/22 01/21/24 History
icosapent ethyl 1 gram capsule 2 g PO BID High Cholesterol 12/23/22 01/21/24 History
(Vascepa)
lidocaine-prilocaine 2.5 %-2.5 % 1 applic topical MOWEFR PRN port 12/23/22 01/21/24 History
topical cream access
nifedipine 60 mg tablet,extended 60 mg PO BID Blood Pressure #0 tabs 02/13/23 01/21/24 Rx
release
sevelamer carbonate 800 mg tablet 1,600 mg PO MEALS Kidney Disease 03/30/23 01/21/24 History
bumetanide 2 mg tablet 2 mg PO SUTUTHSA@0800,1900 Fluid 07/29/23 01/21/24 History
Retention/Swelling
losartan 100 mg tablet 100 mg PO BID Blood Pressure 07/29/23 01/21/24 History
sertraline 100 mg tablet 100 mg PO DAILY Mental Health 07/29/23 01/21/24 History
vitamin B complex-vitamin C 100 1 tab PO DAILY Supplement 07/29/23 01/21/24 History
mg-folic acid 1 mg tablet
(Dialyvite)
gabapentin 100 mg capsule 100 mg PO HS Pain 09/09/23 01/21/24 History
pantoprazole 40 mg tablet,delayed 40 mg PO BID Gastrointestinal Issue 09/09/23 01/21/24 History
release (Protonix)
spironolactone 25 mg tablet 25 mg PO DAILY Blood pressure #30 09/16/23 01/21/24 Rx
tabs
clonidine HCl 0.2 mg tablet 0.2 mg PO TID Blood pressure 10/29/23 01/21/24 History
hydralazine 100 mg tablet 100 mg PO TID Blood Pressure 10/29/23 01/21/24 History
warfarin 3 mg tablet 4 mg PO MOTUWETHFRSA@2200 Blood 10/29/23 01/21/24 History
Clot Prevention/Tx
insulin lispro 100 unit/mL 0 sliding scale dose SC AC Diabetes 12/11/23 01/21/24 History
subcutaneous pen
ondansetron HCl 4 mg tablet 4 mg PO Q8HPRN PRN NAUSEA 12/11/23 01/21/24 History
acetaminophen 500 mg tablet 500 mg PO Q6HPRN PRN mild pain #0 01/22/24 01/21/24 Rx
(Tylenol Extra Strength) tabs
Review of Systems
-
unable to obtain , pt lethargic
Physical Exam
Vital Signs
Vital Signs
Temp Pulse Resp BP Pulse Ox
95.8 F L 94 17 115/68 93
02/08/24 09:00 02/08/24 08:52 02/08/24 08:52 02/08/24 08:52 02/08/24 08:52
Lab Results
WBC 12.9 10^3/uL (4.8-10.8) H 02/08/24 05:01
RBC 1.12 10^6/uL (4.70-6.10) L 02/08/24 05:01
Plt Count 403 10^3/uL (130-400) H 02/08/24 05:01
Sodium 144 mmol/L (135-145) 02/08/24 05:01
Potassium 5.9 mmol/L (3.5-5.1) H 02/08/24 05:01
Chloride 98 mmol/L (98-107) 02/08/24 05:01
Carbon Dioxide 14 mmol/L (22-30) L* 02/08/24 05:01
BUN 113 mg/dl (9-20) H* 02/08/24 05:01
Creatinine 8.6 mg/dL (0.7-1.3) H* 02/08/24 05:01
eGFR 6.56 02/08/24 05:01
Glucose 58 mg/dl (70-99) L 02/08/24 05:01
Calcium 8.8 mg/dl (8.4-10.2) 02/08/24 05:01
Albumin 3.0 g/dl (3.5-5.0) L 02/08/24 05:01
Physical Exam
General: Awake and No Distress
HEENT: EOMI and Anicteric
Respiratory: Nonlabored Respirations and Other (decreased BS)
Cardiac: S1/S2 and Regular Rate/Rhythm
Breast: Deferred by me
Abdomen: Soft, Nontender and Other (mild distension)
Musculoskeletal: Edema (1+)
Skin: No Rash
Neuro: Other (difficult to asess, pt lethargic)
Psych: Other (difficult to asess , as he is lethargic)
Vascular Access: AVF
Data Reviewed
-
Radiology: Image Personally Visualized and interpreted
Labs: Labs Reviewed by me and Discussed with Nurse
Assessment/Plan
-
Impression:
Acute GI Bleed
Acute Blood Loss Anemia
Coumadin Coagulopathy
Hyperkalemia
Metabolic Acidosis
ESRD on hemodialysis TTS [facility]
Anemia of ESRD
Hypovolemia secondary to the above
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
Paroxysmal Atrial Fibrillation
Chronic HFpEF
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
History of bilateral pleural effusions status post thoracentesis
History of pericardial effusion status post pericardiocentesis
Coronary artery disease
Essential hypertension
DM2 with multiple microvascular complications
Hyperlipidemia
Spinal stenosis
Anxiety/depression
L radial AVF
Plan:
A/w diarrhea, GIB, hb 3, missed HDx2
sig GIB, hb repeat pending post 2 units, cont prn trasnfusion
vol status seem ok, no hypervolemia dsepite missing HD
will arrange HD today
treat hypoglycemia too
on PPI gtt per GI, may need endoscopy
hold BP meds at this time
AC on hold too
no IVF needed at this time, ok fro gentle IVF if needed
d/w nursing
CC time spent 31min
--- NOTE | 2024-02-08 09:37 | W.PN.HOSP.TC ---
Today's Communication/Plan
-
IV PPI drip, octreotide drip, blood transfusions.
Assessment / Plan
Assessment / Plan
Physical exam:
General: Acutely ill
HEENT: Normocephalic, Atraumatic and Dry Mucous Membranes
Respiratory: Decreased breath sounds bilateral; Negative Wheezes, Rales or Rhonchi
Cardiac: Regular Rhythm and S1/S2
GI: Soft, mild tender and Distended
Musculoskeletal: No Clubbing, No Cyanosis and bilateral lower extremity edema
Neuro: Lethargic, move spontaneously 4 extremities but does not follow commands appropriately.
Psych: Limited judgment and insight at the moment.
A/P:
Acute GI Bleed
Acute Blood Loss Anemia
Coumadin Coagulopathy
Anemia of ESRD
Hypovolemia secondary to the above
- Admitted to ICU for further evaluation and treatment.
- Reverse anticoagulation with Vitamin K and K-Centra in the ED.
- Transfuse PRBCs (5 units planned / started thus far).
- Follow H&H and provide additional units as needed.
- PPI infusion.
- Octreotide infusion for now given known cirrhosis and hematemesis.
- GI evaluation - prob eventual endoscopic examination as soon as stabilization.
- [employer] evaluation.
- IVFs / volume replacement pending stability in BP.
- +/- pressor support if needed to maintain perfusion.
-IV antibiotics in the setting of possible variceal bleed
-Initial hemoglobin 3.1--> it went up to 4.4 and then 6.1 and then getting more blood transfusion for goal of above 7 (threshold lower in the setting of concerns for variceal bleed and end-stage renal disease/chf to avoid hypervolemia)
-INR over 8--> follow-up INR went down to 2.42
ESRD on HD
Metabolic Acidosis
Hyperkalemia
Cirrhosis secondary to the above
- Patient does not appear grossly volume overloaded- despite having missed last 2 HD sessions. Plan to do hemodialysis today.
- Volume replacement as noted above given blood loss / anemia.
- Follow pulmonary exam, SpO2, etc and dose diuretics if needed.
- Nephrology evaluation for HD / UF needs during acute stay.
- No significant abdominal ascites on exam today - follow for changes.
Elevated troponin:
Non-MT elevation in the setting of anemia, GI bleed, end-stage renal disease
Follow-up trend
Latest troponin 0.061
Paroxysmal Atrial Fibrillation
- Rates stable.
- Hold all PO medications acutely.
- Hold Coumadin given bleeding / coagulopathy.
- History of supratherapeutic INRs in the past as well.
- ? alternate anticoagulation solution.
ASCVD
- No current chest pain. Mild troponin elevation consistent with prior values.
- Address anemia / bleeding as noted above.
- Follow for any new symptoms.
Chronic HFpEF
- No exam evidence of volume overload despite missed dialysis sessions.
- Significant volume losses likely due to GI bleeding / diarrhea.
- PRBCs + volume replacement to maintain BP / perfusion.
- Volume management on HD.
- Dose diuretics PRN for hypoxemia, dyspnea, etc.
DM-II
- Last A1C was < 6% and basal insulin stopped during that admission.
- Follow glucose and cover with SSI if needed.
DVT Prophylaxis: SCDs
Code Status: Full
Total Critical Care Time__40___ minutes. I was immediately available to the patient and staff. I personally examined, reviewed labs, diagnostic images/reports, interpretations, treatment plans, discussed patient care with other providers and
family or caregivers (if patient is unable to make decisions), entered orders as appropriate and documented the medical record.
Anticipated Discharge: > 48 hours
Subjective/Interval History
-
Date of Service: February 08, 2024
Patient looks frail. He is relatively alert but lethargic and encephalopathic. He does not feel well overall and multiple complaints but questionable accuracy.
Objective Data
-
Labs:
Laboratory Results
02/08/24 02/08/24 02/08/24
05:01 07:47 09:17
WBC 12.9 H
Hgb 3.1 L* Pending
Hct 9.8 L* Pending
Plt Count 403 H
PT > 100 H Pending
INR > 8 H* Pending
APTT > 200 H*
Sodium 144
Potassium 5.9 H
Chloride 98
Carbon Dioxide 14 L*
BUN 113 H*
Creatinine 8.6 H*
Glucose 58 L
Calcium 8.8
Total Bilirubin 0.4
AST 33
ALT 15
Alkaline Phosphatase 195 H
02/08/24 02/08/24
13:47 19:47
WBC
Hgb Pending Pending
Hct Pending Pending
Plt Count
PT
INR
APTT
Sodium
Potassium
Chloride
Carbon Dioxide
BUN
Creatinine
Glucose
Calcium
Total Bilirubin
AST
ALT
Alkaline Phosphatase
Vital Signs:
Vital Signs
Temp Pulse Resp BP Pulse Ox
95.8 F L 94 17 115/68 93
02/08/24 09:00 02/08/24 08:52 02/08/24 08:52 02/08/24 08:52 02/08/24 08:52
I&O
02/07/24 02/08/24 02/09/24
06:59 06:59 06:59
Intake Total 250 / 250 500 / 500
Balance 250 / 250 500 / 500
[2024-02-08 09:59] LABS: Hematocrit 13.5 % (39.0-52.0); Hemoglobin 4.4 g/dL (13.0-18.0)
[2024-02-08 10:08] LABS: Glucose - Point of Care 64 mg/dl (70-99)
[2024-02-08 10:08] LABS: PT 26.2 Sec (11.4-14.6)
[2024-02-08 10:21] LABS: INR 2.42
[2024-02-08 10:29] LABS: Glucose - Point of Care 96 mg/dl (70-99)
--- NOTE | 2024-02-08 10:48 | PTCARENOTE ---
required repeated D50 for hypoglycemia. labs erpeated, hosptilsit, plaster maker updated by jeff mcdonough, unit PRBC initiated. additional IV acess obtained by VAT RN
[2024-02-08] MEDS: DILAUDID 0.5 MG IV ×3 (11:22→21:12)
[2024-02-08] MEDS: D5/0.45%NACL 1000 IV (11:30)
--- NOTE | 2024-02-08 11:57 | PTCARENOTE ---
patient reassessed. reviewed with chief financial officer. increasing c/o pain, updated with hypoglycemia. orders received. medicated with Dilaudid per prn order. fecal management system removed, patient c/o rectal discomfort. fecal pouch placed. moderate
amount maroon stools with clots. continue to have intermittent emesis. HD RN updated. HD scheduled for this afternoon
[2024-02-08 11:59] LABS: TSH Reflex To Free T4 2.77 uIU/ml (0.47-4.68)
[2024-02-08] MEDS: STERILE WATER FOR INJECTION 10 ML IV (12:09)
[2024-02-08] MEDS: ROCEPHIN 1000 MG IV (12:10)
[2024-02-08 12:28] LABS: Glucose - Point of Care 77 mg/dl (70-99)
[2024-02-08] MEDS: COMPAZINE 10 MG IV (12:45)
--- NOTE | 2024-02-08 12:48 | CM ---
CM following re: discharge planning.
Reviewed pt's chart, met with pt and spoke to pt's sister Elizabeth Quiñones over the phone who stated she is next of kin.
Pt is a 58 year old male, admitted with primary dx of GI Bleed.
Pt is not a great historian, information obtained from pt's sister Elizabeth Quiñones.
Per sister, pt resides with 2 cousins in a split level house, has no children, has been ambulating by using his RW, has shower chair, commode. Per sister, 2 cousins are unable to care for pt at home and per sister, pt will need to go to a SNF
for a short term rehab and a director long term care care. Pt's sister stated that pt is [facility] with [facility]. per sister pt was at [facility] and [facility] in the past. Pt's sister stated that pt will need to go to a SNF for a short
term rehab and probably for a fci care and she preferred [facility] and [facility].
PT and OT will evaluate the pt to determine a level of care at discharge.
The patient goes to [facility] T-Th-Sat 11:15 and 2 cousins provide transport.
A referral to requested [facility] and [facility] made.
PCP - Rosemarie Paige
Pharmacy - [facility].
D/C plan: [facility] or [facility] for a short term rehab and probably for a LTC.
CM will follow with discharge plan updates as hospitalization progresses
--- NOTE | 2024-02-08 14:30 | W.PN.NEPH.HD ---
Assessment
-
pt seen during HD
vitals stable
more PRBC planned, for 5units today
HD again tomorrow per schedule
AVF functions fine
Progress Note - Hemodialysis
-
Date of Service: February 08, 2024
Duration: 30 minutes and 3 hours
Potassium Bath: 2
Calcium Bath: 2.5
Opti-Dialyzer: 160
Ultrafiltration: Other (1-1.5kg)
Blood Flow: 400
Dialysate Flow: 600
Heparin: no
EPO: [id number]
--- NOTE | 2024-02-08 14:41 | PTCARENOTE ---
prbc completed without signs reaction. patient intermittently restless, falls to sleep quickly. remains on HD. nsr with short periods afib noted. rates 60's self limited
[2024-02-08] MEDS: RETACRIT 10000 UNITS IV (15:01)
[2024-02-08 15:31] LABS: Glucose - Point of Care 92 mg/dl (70-99)
[2024-02-08 15:44] LABS: Hematocrit 17.6 % (39.0-52.0); Hemoglobin 6.1 g/dL (13.0-18.0)
--- NOTE | 2024-02-08 15:54 | PTCARENOTE ---
Addendum entered by Malina Murphy RN 02/08/24 16:09:
remains hypertensive, railroad signal technician updated. orders pending
Original Note:
remains on HD, drowsy, arouses. confused conversation. c/o pain, restless. medicated with dilaudid per prn order. HH results reported to railroad signal technician, hospitalist. orders pending
[2024-02-08] MEDS: TRANDATE 10 MG IV (16:18)
[2024-02-08] MEDS: BUMEX 2 MG IV (17:06)
[2024-02-08] MEDS: CARDENE 200 IV ×2 (17:31→23:40)
--- NOTE | 2024-02-08 17:39 | PTCARENOTE ---
remains hypertensive off HD. renal and conveyancer updated, orders received. stat dose bumex administered. cardene intiated. patient oriented to self only, repeating help me to all questions. fecal pouch removed, no further stools since this am
--- NOTE | 2024-02-08 17:51 | PTCARENOTE ---
patient becoming very agitated, attempting to climb out of bed, yelling 'help me' but not ansering any questions. unable to redirect. medical reviewer updated
[2024-02-08] MEDS: VISTARIL 50 MG IM (18:07)
--- NOTE | 2024-02-08 18:10 | PTCARENOTE ---
meds per MAR for agitation. wrist restraints applied for patient safety. cardene titration per work list
[2024-02-08] MEDS: CATAPRES-TTS-2 0.2 MG TRANSDERM (18:32)
--- NOTE | 2024-02-08 20:00 | PTCARENOTE ---
rec`d pt at 1900. pt is oriented to place and self. pt keeps stating, 'help, help.' when asked what to help with, he doesnt answer back. prn pain meds given to cover pain. left arm AV fistula, +bruit and thrill. blood infusing, d5 1/2, cardene,
protonix, and octreotide infusing. HR 90s. SBP anywhere from 140-170, SR on monitor. scds. restraints. 2L NC. crackles BS. anuric. 22 hand IV, 20 upper arm IV and 18 rt AC IV. flushed and patent. trending hgb and q4 BS continued. call nieto in reach.
safe environment maintained.
[2024-02-08 20:15] LABS: Glucose - Point of Care 109 mg/dl (70-99)
[2024-02-08 21:03] LABS: Venous Blood Gas B.E. 1.7 mmol/L (-4 to +4); Venous Blood Gas HCO3 27.2 mmol/L (22-27); Venous Blood Gas O2 Sat % 99.4 %; Venous Blood Gas pCO2 47 mmHg (35-48); Venous Blood Gas pH 7.37 (7.32-7.43); Venous Blood Gas pO2 189 mmHg (30-50)
[2024-02-08 21:17] LABS: Hematocrit 19.2 % (39.0-52.0); Hemoglobin 6.8 g/dL (13.0-18.0)
[2024-02-08] MEDS: DILAUDID 0.25 MG IV (23:35)
[2024-02-08 23:36] LABS: Glucose - Point of Care 120 mg/dl (70-99)
[2024-02-09] VITALS (97 sets, daily range): BP systolic 123–185; BP diastolic 47–167; BMI 25.2
--- NOTE | 2024-02-09 01:09 | PTCARENOTE ---
another unit of blood given. trending hgb.
[2024-02-09] MEDS: DILAUDID 0.5 MG IV ×2 (01:16→14:24)
[2024-02-09 02:28] LABS: Venous Blood Gas B.E. 1.2 mmol/L (-4 to +4); Venous Blood Gas HCO3 27.1 mmol/L (22-27); Venous Blood Gas pCO2 49 mmHg (35-48); Venous Blood Gas pH 7.35 (7.32-7.43); Venous Blood Gas pO2 170 mmHg (30-50)
[2024-02-09 02:39] LABS: Mean Corpuscular Hgb 30.3 pg (27.0-31.0); Mean Corpuscular Volume 86.6 fL (80.0-94.0); Mean Platelet Volume 9.7 fL (7.4-10.4); Platelet Count 210 10^3/uL (130-400); Red Blood Cell Count 2.31 10^6/uL (4.70-6.10); Red Cell Dist. Width 16.1 % (11.5-14.5); White Blood Cell Count 9.2 10^3/uL (4.8-10.8)
[2024-02-09 02:43] LABS: INR 1.56; PT 18.5 Sec (11.4-14.6)
[2024-02-09 02:48] LABS: Ammonia 15 umol/L (9-30)
[2024-02-09 03:03] LABS: ALT (SGPT) 14 U/L (0-50); AST (SGOT) 44 U/L (17-59); Albumin 2.7 g/dl (3.5-5.0); Alkaline Phosphatase 186 U/L (38-126); Blood Urea Nitrogen 63 mg/dl (9-20); Calcium 8.1 mg/dl (8.4-10.2); Carbon Dioxide 26 mmol/L (22-30); Chloride 99 mmol/L (98-107); Direct Bilirubin 0.6 mg/dl (0.0-0.4); Estimated Creatinine Clearance 17 ml/min; Glucose 116 mg/dl (70-99); Phosphorus 4.4 mg/dl (2.5-4.5); Potassium 4.4 mmol/L (3.5-5.1); Sodium 140 mmol/L (135-145); Total Bilirubin 0.7 mg/dl (0.2-1.3); Total Protein 5.7 g/dl (6.3-8.2); Troponin I 0.842 ng/ml; eGFR 12.88
[2024-02-09 03:24] LABS: Hepatitis B Surface Antigen Negative (Negative)
[2024-02-09] MEDS: DILAUDID 0.25 MG IV (04:39)
[2024-02-09] MEDS: CALCIUM GLUCONATE 100 IV (04:52)
[2024-02-09] MEDS: PROTONIX 100 IV ×2 (05:20→14:24)
[2024-02-09] MEDS: CARDENE 200 IV ×4 (05:33→23:30)
[2024-02-09 08:21] LABS: Glucose - Point of Care 115 mg/dl (70-99)
[2024-02-09] MEDS: SANDOSTATIN 500.6 MCG IV ×2 (08:28→20:01)
[2024-02-09] MEDS: D5/0.45%NACL 1000 IV (08:28)
[2024-02-09 08:39] LABS: Hemoglobin 8.3 g/dL (13.0-18.0)
--- NOTE | 2024-02-09 08:53 | CON.INTV ---
Medical History
-
Chief Complaint: Lethargy, GIB
History of Present Illness:
Patient is a 58-year-old male who initially presented with lethargy + coffee-ground emesis and melena starting last Thursday. He also missed his latest dialysis session due to his GI complaints/diarrhea. Labs showed Hb 3.1, INR >8, PTT >200, serum
bicarbonate level 14, anion gap elevated at 32, creatinine 8.6, glucose 58, ALP 195. CXR showed small right-sided pleural effusion. He was admitted to the ICU for further care and we are following for additional recommendations/management.
PMHx: A-fib on Coumadin, history of HFpEF, ESRD on HD, history of COVID-19, former tobacco smoker, GERD, DM type II, depression, anemia, history of transaminitis, hypertension, spinal stenosis, peripheral neuropathy, liver cirrhosis with history of
recurrent ascites requiring paracentesis (last para on 01/20/2024)
PSHx: Herniated disks, hernia of repair, coronary stents, femoropopliteal, left arm AV fistula, tumor removed from finger, right leg surgery
A/P:
Patient is on 2 L/min saturating 99%, heart rate 85 and BP 152/70 (on Cardene). He is not having anymore dark, maroon colored stool but still has coffee ground emesis. Today, he is oriented to place but not to time.
Is less lethargic than yesterday. He has received total of 7 units PRBC to this time since admission. Hgb has uptrended to 8.3 this am. INR is back to 1.56. Coumadin still on hold. Glucose this am is 115.
He recieved a HD session yesterday and is scheduled for another one today. K dropped from 5.9 to 4.3. Cr downtrended to 4.9 (previously 8.6). BUN dropped to 63 (previously 113).
p/E:
Cardiac: Regular rate, sinus rhythm alternating with afib, no murmurs
Lungs: He is not having any respiratory distress, no wheezing, no crackles
GI: soft, non-tender, fluid shift negative
plan:
Continue Cardene
Continue Rocephine
Continue PPI IV drip, Continue Octreotide
Second HD session today
Possible endoscopy today?
Will continue dextrose 5% for now
Social History
Tobacco: Former Smoker
Allergies / Home Medications
Allergies
Allergy/AdvReac Type Severity Reaction Status Date / Time
morphine Allergy Unknown Verified 02/08/24 04:52
Home Medications
�Medication �Instructions �Recorded �Confirmed �Last Taken �Type
atorvastatin 80 mg tablet 80 mg PO HS High Cholesterol 12/23/22 01/21/24 09/08/23 History
icosapent ethyl 1 gram capsule 2 g PO BID High Cholesterol 12/23/22 01/21/24 09/09/23 History
(Vascepa)
lidocaine-prilocaine 2.5 %-2.5 % 1 applic topical MOWEFR PRN port 12/23/22 01/21/24 Unknown History
topical cream access
nifedipine 60 mg tablet,extended 60 mg PO BID Blood Pressure #0 tabs 02/13/23 01/21/24 09/09/23 Rx
release
sevelamer carbonate 800 mg tablet 1,600 mg PO MEALS Kidney Disease 03/30/23 01/21/24 09/09/23 History
bumetanide 2 mg tablet 2 mg PO SUTUTHSA@0800,1900 Fluid 07/29/23 01/21/24 09/08/23 History
Retention/Swelling
losartan 100 mg tablet 100 mg PO BID Blood Pressure 07/29/23 01/21/24 09/09/23 History
sertraline 100 mg tablet 100 mg PO DAILY Mental Health 07/29/23 01/21/24 09/09/23 History
vitamin B complex-vitamin C 100 1 tab PO DAILY Supplement 07/29/23 01/21/24 09/08/23 History
mg-folic acid 1 mg tablet
(Dialyvite)
gabapentin 100 mg capsule 100 mg PO HS Pain 09/09/23 01/21/2424 History
pantoprazole 40 mg tablet,delayed 40 mg PO BID Gastrointestinal Issue 09/09/23 01/21/24 09/09/23 History
release (Protonix)
spironolactone 25 mg tablet 25 mg PO DAILY Blood pressure #30 09/16/23 01/21/24 Unknown Rx
tabs
clonidine HCl 0.2 mg tablet 0.2 mg PO TID Blood pressure 10/29/23 01/21/24 Unknown History
hydralazine 100 mg tablet 100 mg PO TID Blood Pressure 10/29/23 01/21/24 Unknown History
warfarin 3 mg tablet 4 mg PO MOTUWETHFRSA@2200 Blood 10/29/23 01/21/24 Unknown History
Clot Prevention/Tx
insulin lispro 100 unit/mL 0 sliding scale dose SC AC Diabetes 12/11/23 01/21/24 Unknown History
subcutaneous pen
ondansetron HCl 4 mg tablet 4 mg PO Q8HPRN PRN NAUSEA 12/11/23 01/21/24 Unknown History
acetaminophen 500 mg tablet 500 mg PO Q6HPRN PRN mild pain #0 01/22/24 01/21/24 Unknown Rx
(Tylenol Extra Strength) tabs
Review of Systems
Vitals / Labs / Diagnostic Testing
Vital Signs
Temp Pulse Resp BP Pulse Ox
98.2 F 92 14 159/65 98
02/09/24 08:25 02/09/24 07:00 02/09/24 07:00 02/09/24 07:00 02/09/24 07:00
Lab Data
02/09/24 08:25
02/09/24 02:19
Laboratory Results
02/08/24 02/09/24
09:43 02:19
PT 26.2 H 18.5 H
INR 2.42 D 1.56
Diagnostic Testing:
Assessment
-
Assessment: 58-year-old male with a past medical history of hyperlipidemia, ESRD on dialysis, DM type II, depression and GERD who presents with worsening generalized weakness + rectal bleeding. Pt is a poor historian. Patient has been having
dark, loose stool starting on Thursday from this past week. He has been extremely tired and fatigued since that time. He cannot say exactly many bowel movements he has had per day. He admits that he missed dialysis recently with last HD session
on last Thursday (6 days ago). Due to his GI complaints/diarrhea he was unable to go to his dialysis sessions. On the morning of arrival, he developed nausea/vomiting with dark red bloody emesis. EMS was called and he came to the ER for further
management where he was found to be pale appearing and lethargic. He also had dark liquid stool with hematemesis in the ER. He says he last took his Coumadin 'a day or so ago.' In the ER he was hypothermic to 95.5 �F, pulse rate 86, breathing at
19 breaths/min, BP 138/58 and saturating 100% on room air. Labs showed severe anemia with Hb 3.1, WBC mildly elevated at 12.9, platelet count 4 3, INR >8, PTT >200, serum bicarbonate level 14, anion gap elevated at 32, creatinine 8.6, glucose 58,
ALP 195, troponin 0.061, and TSH WNL at 2.77. CXR showed cardiomegaly with a small right-sided pleural effusion. In the ER patient was given Protonix 80 mg IVP + started on Protonix drip. He was then admitted to the ICU for further care with
horticultural specialty grower inside services consulted for additional recommendations/management.
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
cirrhosis with history of recurrent ascites requiring paracentesis (last para on 01/20/2024)
Impression:
#Acute blood loss anemia - having coffee ground emesis and rectal bleeding - could be due to brisk UGIB vs combined upper and lower GI bleeds
#Thrombocytosis likely reactive
#Symptomatic anemia
#Acute respiratory failure with hypoxia on supplemental oxygen
#Found down - could be syncopal event due to symptomatic anemia versus hypoglycemia versus generalized weakness
#DM type II c/b hypoglycemia
#Decompensated cirrhosis with borderline splenomegaly
#Hx of A-fib now on coumadin now with supratherapeutic INR
#ESRD on HD with multiple missed HD sessions now with mild hyperkalemia and elevated creatinine
#Small right-sided pleural effusion likely due to mild volume overload from missed HD sessions in the setting of ESRD
#Metabolic acidosis with increased anion gap due to ESRD with multiple missed HD sessions
#Elevated ALP
#Elevated troponin likely due to type II AR with demand ischemia
#Chronic HFpEF with mild PH and Hx of bilateral pleural effusions (per TTE from 03/2023)
Plan:
- Large bore IV x2
- PPI gtt
- Octreotide gtt
- GI on board - recs appreciated - given Hx of cirrhosis, will start ceftriaxone x 7 days, hold all anti-platelets/anti-coagulants until GI bleed resolves and Hb stable for >48-72 hrs
- Eventual EGD as per GI
- Anti-emetics as needed - monitor QTc
- Maintain SpO2 >90-94% with supplemental O2 and wean off as tolerated
- Maintain MAP>65
- Has generalized pain --> will treat pain accordingly as tolerated
- Check abd US with dopplers to assess for ascites
- Replete electrolytes with K>4, Mg>2
- Maintain euglycemia with goal BG 140-180, avoiding hypoglycemia - will start supplemental dextrose with D5 1/2NS @40cc/hr and once on HD will try to wean off gtt; unfortunately he will remain NPO given his active GIB; continue BG checks at q4hr,
more frequent if needed
- Trend serum HCO3 level; check blood gas to assess pH and pCO2
- Monitor mental status, check ammonia level, and limit narcotics if possible given his already lethargic mental state
- Trend H/H and transfuse if needed to keep Hb>7g/dL; kep plt>20k, unless there is concern for bleeding then keep plt>50k
- Trend troponin until it begins to downtrend
- s/p PCC + vitamin K (both on 02/08/2024), c/t trend INR and hold coumadin
- prn nebulized bronchodilators - not currently bronchospastic
- Incentive spirometer encouraged 10x per hour for at least 4 hrs a day
- DVT ppx: SCDs for now
Critical care statement: A total of 44 minutes of critical care time was provided for this patient today. This includes management of unstable vital signs, evaluation of the patient at bedside, reviewing the patient's pertinent medical records
including radiographs, microbiology, laboratory evaluations, and discussion with primary team, consultants, pharmacy, nutrition, physical therapy, case management, charge nurse, critical care nursing, and respiratory therapy.
--- NOTE | 2024-02-09 08:53 | PTCARENOTE ---
report received, assessments per work list. patient yelling out 'help me' but unable to verbalize what he needs help with. oriented to person and place 'hospital'. Cardene per work list. generalized +4 anasarca. pitting. bladder scan as no void
since admission. lungs with crackles throughout, diminished. no respiratory distress. pulse oximeter 95-98 on 2 liters. spitting out small amount dark coffee ground fluid, no stools. restraints maintained for patient safety, impulsive and attempts
to pull lines and get out of bed. labs sent, results pending
[2024-02-09 09:05] LABS: Troponin I 0.758 ng/ml
--- NOTE | 2024-02-09 09:25 | W.PN.HOSP.TC ---
Today's Communication/Plan
-
IV Protonix drip. Octreotide drip.
Assessment / Plan
Assessment / Plan
Physical exam:
General: Acutely ill
HEENT: Normocephalic, Atraumatic and Dry Mucous Membranes
Respiratory: Decreased breath sounds bilateral; Negative Wheezes, Rales or Rhonchi
Cardiac: Regular Rhythm and S1/S2
GI: Soft, mild tender and Distended
Musculoskeletal: No Clubbing, No Cyanosis and bilateral lower extremity edema
Neuro: Lethargic, move spontaneously 4 extremities but does not follow commands appropriately.
Psych: Limited judgment and insight at the moment.
A/P:
Acute blood loss anemia:
Status post blood transfusions
Threshold lower in the setting of concerns for variceal bleed and end-stage renal disease/chf to avoid hypervolemia
Initial hemoglobin 3.1 upon admission
Hemoglobin 8.3 this morning
Endoscopy planned today
Acute GI bleed:
Concerns for variceal bleed but cannot rule out lower source
Plan for endoscopy today
Continue IV PPI drip
Continue IV octreotide drip
Continue IV ceftriaxone
Hypertensive emergency:
Started on Cardene drip
Back on clonidine patch
Coagulopathy:
Status post Kcentra and vitamin K
INR over 8--> down to 1.56 today
Cirrhosis:
GI on board
Monitor MELD score
Elevated troponin:
Likely type II PR with demand ischemia
End-stage renal disease on hemodialysis:
Hemodialysis need per nephrology
Toxic metabolic encephalopathy:
Continue to monitor mental status and behavior
Acute hypoxic respiratory failure:
Oxygen supplementation as needed
Paroxysmal atrial fibrillation:
Hold anticoagulation
Cardiac monitoring
Would use rate control if needed
Chronic HFpEF:
Manage volume with dialysis
Diabetes mellitus:
Insulin as needed
D5 as needed for hypoglycemia
Monitor blood sugars
DVT prophylaxis:
SCDs
CODE STATUS:
Full code
Total time spent on today's encounter was 52 minutes which included time spent in counseling the patient/family regarding diagnosis and treatment plan as listed above, goals of care, and symptom management. Case was discussed with nursing staff,
specialists, and care coordinators/case management. All labs and imaging personally reviewed by me. Remainder the time spent in detailed review of previous records, lab data, imaging, and other medical provider documentation.
Anticipated Discharge: > 48 hours
Subjective/Interval History
-
Date of Service: February 09, 2024
Patient still encephalopathic but improving.
Objective Data
-
Labs:
Laboratory Results
02/09/24 02/09/24 02/09/24
02:19 02:19 02:19
WBC 9.2
Hgb Cancelled 7.0 L
Hct Cancelled 20.0 L*
Plt Count 210 D
PT 18.5 H
INR 1.56
Sodium 140
Potassium 4.4 D
Chloride 99
Carbon Dioxide 26
BUN 63 H
Creatinine 4.9 H*
Glucose 116 H
Calcium 8.1 L
Total Bilirubin 0.7
AST 44
ALT 14
Alkaline Phosphatase 186 H
02/09/24
08:25
WBC
Hgb 8.3 L
Hct
Plt Count
PT
INR
Sodium
Potassium
Chloride
Carbon Dioxide
BUN
Creatinine
Glucose
Calcium
Total Bilirubin
AST
ALT
Alkaline Phosphatase
Vital Signs:
Vital Signs
Temp Pulse Resp BP Pulse Ox
98.2 F 89 16 156/51 98
02/09/24 08:25 02/09/24 09:15 02/09/24 09:15 02/09/24 09:15 02/09/24 09:15
I&O
02/08/24 02/09/24 02/10/24
06:59 06:59 06:59
Intake Total 250 / 250 4470.7 / 4859.9 667.6 / 667.6
Output Total 200 / 200
Balance 250 / 250 4270.7 / 4659.9 667.6 / 667.6
--- NOTE | 2024-02-09 11:13 | W.PN.NEPH.PH ---
Today's Communication / Plan
-
HD later today
UF as tolerates
Assessment/Plan
-
Impression:
Acute GI Bleed
Acute Blood Loss Anemia
Coumadin Coagulopathy
Hyperkalemia
Metabolic Acidosis
ESRD on hemodialysis [facility]
Anemia of ESRD
Hypovolemia secondary to the above
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
Paroxysmal Atrial Fibrillation
Chronic HFpEF
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
History of bilateral pleural effusions status post thoracentesis
History of pericardial effusion status post pericardiocentesis
Coronary artery disease
Essential hypertension
DM2 with multiple microvascular complications
Hyperlipidemia
Spinal stenosis
Anxiety/depression
L radial AVF
Plan:
A/w diarrhea, GIB, hb 3, missed HDx2
sig GIB, hb better at 8.3 post 7 unts of PRBC
wt is up specially with PRBC and IVF for hypoglycemia
on nicardene gtt for HTN too
will arrange HD today
GI plans endoscopy today
on PPI gtt per GI
resume all po BP meds once back on diet
AC on hold
d/w nursing
-
-
Date of Service: February 09, 2024
CC / HPI / ROS
-
Chief Complaint:
ESRD
History of Present Illness:
hb better at 8.3
BP high started nocardene last evening
on d5 for hypoglycemia
wt is up , on 2lit o2
did ot urinate bladder scan over 300cc
Review of Systems:
shouting, restless on 4 point restrainer
no fever
Labs
-
Labs:
WBC 9.2 10^3/uL (4.8-10.8) 02/09/24 02:19
RBC 2.31 10^6/uL (4.70-6.10) L 02/09/24 02:19
Hgb 8.3 g/dL (13.0-18.0) L 02/09/24 08:25
Hct 20.0 % (39.0-52.0) L* 02/09/24 02:19
Hct Cancelled 02/09/24 02:19
Plt Count 210 10^3/uL (130-400) D 02/09/24 02:19
Sodium 140 mmol/L (135-145) 02/09/24 02:19
Potassium 4.4 mmol/L (3.5-5.1) D 02/09/24 02:19
Chloride 99 mmol/L (98-107) 02/09/24 02:19
Carbon Dioxide 26 mmol/L (22-30) 02/09/24 02:19
BUN 63 mg/dl (9-20) H 02/09/24 02:19
Creatinine 4.9 mg/dL (0.7-1.3) H* 02/09/24 02:19
eGFR 12.88 02/09/24 02:19
Glucose 116 mg/dl (70-99) H 02/09/24 02:19
Calcium 8.1 mg/dl (8.4-10.2) L 02/09/24 02:19
Phosphorus 4.4 mg/dl (2.5-4.5) 02/09/24 02:19
Albumin 2.7 g/dl (3.5-5.0) L 02/09/24 02:19
Physical Exam
-
Vital Signs:
Vital Signs
Temp Pulse Resp BP Pulse Ox
98.2 F 91 16 160/63 98
02/09/24 08:25 02/09/24 10:45 02/09/24 10:45 02/09/24 10:45 02/09/24 10:45
Cardiovascular:: Regular rate and rhythm
Respiratory:: Bilateral: CTA (anteriorly)
Lung Excursion:: Normal
Abdomen:: Nontender and Soft
Extremity Edema:: +1: Bilateral:
Alfred Catheter: No
--- NOTE | 2024-02-09 11:52 | PTCARENOTE ---
report to GI lab, transfer to GI lab without issue
--- NOTE | 2024-02-09 12:29 | CM ---
CM following re: discharge planning.
Reviewed pt's chart, met with pt. Per Rounds meeting, nephrology and gastroenterology following.
[facility] has denied a referral.
[facility] offered a bed pending a referral to [facility] unit onsite. Hepatitis panel requested.
D/C plan: [facility] for a short term and possibly a ferry terminal agent care. Will make a referral to [facility] onsite unit at [facility].
CM will follow to assist pt with discharge to [facility] with [facility] onsite HD unit.
--- NOTE | 2024-02-09 12:39 | W.PN.UPDATE ---
Update Note
Progress Note Update
EGD done
Mild esophagitis
Small grade I esophageal varices without stigmata of bleeding
Coffee ground fluid in stomach
Erosion in gastric cardia that was actively bleeding, unclear if this was endoscope trauma or possibly Ebenezer's type erosion. Clip placed
No gastric varices seen
Normal duodenum
Pt desaturated during procedure required withdrawal of scope and airway support and positive pressure ventilation. Procedure then resumed without incident
REC:
NPO
Monitor Hgb
Continue protoinx and octreotide gtts for now
Sister updated
--- NOTE | 2024-02-09 12:57 | W.PN.INTV ---
Today's Communication / Plan
Recommendations
Second hemodialysis awslxyf-[id number]-[id number] IV PPI and IV octreotide
Assessment
-
Patient is a 58-year-old male with pmh of A-fib on Coumadin,ESRD, HTN, GERD, IDDM, who initially presented with lethargy + coffee-ground emesis and melena starting last Thursday. He had also missed his dialysis due to GI issues. In ED, initial
labs showed Hb 3.1, INR >8, PTT >200, creatinine 8.6, BUN 113, k 5.9, glucose 58, ALP 195. CXR showed small right-sided pleural effusion. He was subsequently admitted to the ICU and we are following for additional recommendations/management.
I saw and evaluated patient this morning. Blood pressure was 158/59 (on Cardene), BP 85, RR 19, O2 sat 98% (on 2L O2). Patient does open eyes in response to calling his name. Does know that he is in the hospital but is not oriented to time.
Since admission, he has received total of 7 units PRBC and Hgb has uptrended to 8.3 this am. INR is back to 1.56. Coumadin still on hold. Glucose this am was 115.
He received hemodialysis yesterday and is scheduled for another one today. K dropped from 5.9 to 4.3. Cr downtrended to 4.9 (previously 8.6). BUN dropped to 63 (previously 113).
#Anemia due to GIB
Appreciate GI input
Continue Rocephine
Continue PPI IV drip, Continue Octreotide
Scheduled for endoscopy today
Monitor H&H
#Acute on chronic kidney injury
Appreciate nephro input
Second HD session today
#Hypoglycemia
Resolved- Will continue dextrose 5% at lower rate
Continue monitoring BG q6h
#Hypoxia
Gradually wean off O2 (goal: O2 sat greater than 94%)
Subjective Dataa
Subjective Data
Date of Service:
Date of Service: February 09, 2024
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
Subjective:
Today, he is oriented to place but not time. Is saturating well on 2 L oxygen. He is not in apparent respiratory distress. He has not had any dark, maroon colored stool since yesterday afternoon but does have ongoing coffee-ground emesis.
Appears less lethargic than yesterday but does fall asleep rather quickly. Constantly states he 'needs help'.
Review of Systems
General: Unobtainable - Pat Unresp (patient lethargic)
Objective Data
Data Reviewed
Vital Signs / I&O / Oxygen:
Active Medications
Albumin Human (Albumin 12.5 Grams/50 Ml Bag *For Hemodialysis*) 12.5 grams IV HD-Q1HPRN PRN
PRN Reason: sbp<100
Stop: 02/09/24 23:59
Ceftriaxone Sodium (Ceftriaxone 1000 Mg / 10 Ml Vial) 1,000 mg IV Q24H AILYN
Stop: 02/15/24 11:59
Last Admin: 02/08/24 12:10 Dose: 1,000 mg
Clonidine HCl (Clonidine 0.2 Mg Patch) 0.2 mg TRANSDERM Q7D AILYN
Stop: 03/07/24 17:59
Last Admin: 02/08/24 18:32 Dose: 0.2 mg
Dextrose (Dextrose 50% (0.5 Grams/Ml) 50 Ml Syringe) 12.5 grams IV [id number] PRN; Protocol
PRN Reason: hypoglycemia
Stop: 03/07/24 07:46
Last Admin: 02/08/24 09:58 Dose: 12.5 grams
Glucagon (Glucagon 1 Mg Vial) 1 mg IM PRN PRN; Protocol
PRN Reason: hypoglycemia
Stop: 03/07/24 07:46
Hydromorphone HCl (Hydromorphone 0.5 Mg/0.5 Ml Syringe) 0.5 mg IV Q4HPRN PRN
PRN Reason: Severe pain
Stop: 02/22/24 11:02
Last Admin: 02/09/24 01:16 Dose: 0.5 mg
Hydromorphone HCl (Hydromorphone 0.25 Mg/0.5 Ml Syringe) 0.25 mg IV Q4HPRN PRN
PRN Reason: Moderate pain
Stop: 02/22/24 11:02
Last Admin: 02/09/24 04:39 Dose: 0.25 mg
Pantoprazole Sodium (Protonix) 80 mg in 100 mls @ 10 mls/hr IV Q10H AILYN
Last Admin: 02/09/24 05:20 Dose: 100 mls
Octreotide Acetate 600 mcg/ (Sodium Chloride) 500.6 mls @ 41.717 mls/hr IV Q12H AILYN
Last Admin: 02/09/24 08:28 Dose: 500.6 mls
Dextrose/Sodium Chloride (D5/0.45%Nacl) 1,000 mls @ 25 mls/hr IV .Q24H AILYN
Last Admin: 02/09/24 08:28 Dose: 1,000 mls
Nicardipine/Sodium Chloride (Cardene) 40 mg in 200 mls @ 0 mls/hr IV PER PROTOCOL [facility]; Protocol
Last Admin: 02/09/24 10:50 Dose: 200 mls
Insulin Aspart (Insulin Aspart Low Resistance 300 Units/3 Ml Pen.Injctr) 0 units SC Q4 AILYN; Protocol
Stop: 03/07/24 11:59
Last Admin: 02/09/24 13:31 Dose: Not Given
Labetalol HCl (Labetalol Hcl 5 Mg/1 Ml (20 Mg/4 Ml) Injection) 10 mg IV Q6HPRN PRN
PRN Reason: SBP>160mmHg and HR>90
Stop: 03/07/24 16:12
Last Admin: 02/08/24 16:18 Dose: 10 mg
Mannitol (Mannitol 25% (12.5 Grams/50 Ml) Vial) 12.5 grams IV HD-Q1HPRN PRN
PRN Reason: sbp<100
Stop: 02/09/24 23:59
Prochlorperazine Edisylate (Prochlorperazine 10 Mg/2 Ml Vial) 10 mg IV Q6HPRN PRN
PRN Reason: Nausea/vomiting
Stop: 03/07/24 11:02
Last Admin: 02/08/24 12:45 Dose: 10 mg
Sodium Chloride (Sodium Chloride 0.9% (Flush) Syringe) 0 flush IV PER PROTOCOL AILYN
Stop: 03/07/24 08:59
Sterile Water (Sterile Water For Injection 10 Ml Vial) 10 ml IV Q24H AILYN
Stop: 03/07/24 11:59
Last Admin: 02/08/24 12:09 Dose: 10 ml
Vital Signs
Temp Pulse Resp BP Pulse Ox
97.7 F 98 17 146/63 90
02/09/24 12:08 02/09/24 12:15 02/09/24 12:15 02/09/24 11:45 02/09/24 12:15
I&O
02/07/24 02/08/24 02/09/24 02/10/24
06:59 06:59 06:59 06:59
Intake Total 250 / 250 4470.7 / 4859.9 946.0 / 946.0
Output Total 200 / 200
Balance 250 / 250 4270.7 / 4659.9 946.0 / 946.0
Physical Exam
General: Comfortable
HEENT: Anicteric
Cardiovascular: S1-S2, Peripheral Edema (1+ b/l LE edema) and Other (rhythm alternating between afib and sinus)
Respiratory: Crackles (Bilateral basilar crackles) and Non-Labored Respirations
GI: Soft, Non Distended, Non Tender and Normal Bowel Sounds
Neurology: Oriented (to place only) and Lethargic
Skin: Warm and Dry
Labs/Micro/Reports
Lab Data
02/09/24 02:19
Laboratory Results
02/09/24
02:19
PT 18.5 H
INR 1.56
[2024-02-09 13:23] LABS: Glucose - Point of Care 130 mg/dl (70-99)
--- NOTE | 2024-02-09 13:39 | PTCARENOTE ---
Addendum entered by Malina Murphy RN 02/09/24 13:53:
pulse oximeter improved with midflow@15 liters. stat cxr obtained, tachypneic,respiratory rate 30's
Original Note:
patient returned from GI lab. coughing frequently, expectorating large amount aguirre secretions with coffee grounds. pulse oximeter 88-90 on 6 liters. chief airport guide, RT updated. bladder scan, straight cath per chief airport guide. stat orders received, placed on
HD by HD RN
[2024-02-09] MEDS: ROCEPHIN 1000 MG IV (13:48)
[2024-02-09] MEDS: STERILE WATER FOR INJECTION 10 ML IV (13:48)
[2024-02-09 13:53] LABS: Hematocrit 22.7 % (39.0-52.0); Hemoglobin 7.8 g/dL (13.0-18.0); Mean Corp Hgb Conc. 34.4 g/dL (33.0-37.0); Mean Corpuscular Hgb 29.7 pg (27.0-31.0); Mean Corpuscular Volume 86.3 fL (80.0-94.0); Mean Platelet Volume 9.3 fL (7.4-10.4); Platelet Count 236 10^3/uL (130-400); Red Blood Cell Count 2.63 10^6/uL (4.70-6.10); Red Cell Dist. Width 16.4 % (11.5-14.5); White Blood Cell Count 10.5 10^3/uL (4.8-10.8)
--- NOTE | 2024-02-09 15:37 | PTCARENOTE ---
Addendum entered by Malina Murphy RN 02/09/24 16:25:
display decorator updated with continued agitation, respiratory distress. gurgling cough and shivering. stat orders received. see MAR. post medication, calmer but still agitated and yelling out, thrashing in the bed
Addendum entered by Malina Murphy RN 02/09/24 15:47:
stat labs sent, oral temp 99.3, continues to shiver, agitation. cardene resumed, pulse oximeter 96 on max high flow
Original Note:
patient with moderate sized bloody stool with clots. pulse oximeter 88, mid flow increased to [address] Gracia and display decorator updated. orders received. remains agitated, pulse oximeter 88 on 15 liters. RT at bedside, patient to be
placed on high flow
[2024-02-09] MEDS: RETACRIT 10000 UNITS IV (16:05)
[2024-02-09] MEDS: VERSED 1 MG IV (16:13)
[2024-02-09] MEDS: SUBLIMAZE 50 MCG IV (16:13)
[2024-02-09 16:19] LABS: Glucose - Point of Care 86 mg/dl (70-99)
[2024-02-09 16:31] LABS: Hematocrit 28.2 % (39.0-52.0); Hemoglobin 9.5 g/dL (13.0-18.0)
--- NOTE | 2024-02-09 16:59 | W.PN.UPDATE ---
Update Note
Progress Note Update
Notified by RN that pt passed bloody stool with clot. Also chills, started on rocephin and sent Cx
On HD, shivering
Hgb 9 just checked
Likely had aspiration during EGD earlier today
Cont abx and supportive care
I called sister and updated her. I confirmed that he is full code.
Will follow
She also mentioned he has hx ascites/paracetesis. I told her we could tap if he stabilizes, especially if it will help with breathing.
--- NOTE | 2024-02-09 17:02 | PTCARENOTE ---
Addendum entered by Malina Murphy RN 02/09/24 18:06:
post ofirmev, shivering stopped. patient calm, cardene per work list. care provided. continues to expectorate moderate thick aguirre coffee ground sputum, erquiring frequent yankaur suctioning. awaiting police patrol lieutenant for possible central line placement
Original Note:
Dr Gracia at bedside, updated. he updated patient sister on phone
--- NOTE | 2024-02-09 17:10 | W.PN.NEPH.HD ---
Assessment
-
pt seen during HD
is febrile and chills
suspect asp PNA s/p EGD today, bld cx sent -abx per primary
on mid flow O2
reassess in am for isolated UF as he is still over DW
on D5 for hypoglycemia
AVF functions fine
Progress Note - Hemodialysis
-
Date of Service: February 09, 2024
Duration: 30 minutes and 3 hours
Potassium Bath: 2
Calcium Bath: 2.5
Opti-Dialyzer: 160
Ultrafiltration: Other (3.5kg)
Blood Flow: 400
Dialysate Flow: 600
Heparin: no
EPO: [id number]
[2024-02-09] MEDS: OFIRMEV 100 IV (17:17)
--- NOTE | 2024-02-09 19:30 | PTCARENOTE ---
received report from RN, pt very drowsy and lethargic, arouses to verbal but just responds with 'huh', unable to follow commands, PEARL, B/L wrist restraints, sinus tach on the monitor, + radials weak pedals, +2 anasarca, SCDs, HF 50L 100%,
diminished, coarse and crackles throughout, rectal probe, BSx4, abd distended round, oliguric due to void, bruit auscultated thrill palpated, skin dry and intact, Protonix, octreotide, cardene D5 1/2 NS gtts titrated per worklist, otherwise refer to
documentation
--- NOTE | 2024-02-09 19:40 | W.SUR.POST ---
Surgical Immediate Post Op
Note
Bedside Central Line Insertion Procedure
Date of procedure: 02/09/2024
Pre Op Diagnosis: Inadequate IV access; hypertensive crisis; GI bleed
Post Op Diagnosis: Same as above
Procedure Performed: Central line insertion procedure
Primary Surgeon/Proceduralist: Dr. Sanderson
Secondary Surgeons: N/A
Anesthesia: N/A
Estimated Blood Loss: 5cc
Fluids: N/A
Drains/Shunts: N/A
Specimens/Cultures: N/A
Doppler/Duplex/Angio (Y/N): N/A
Complications: No immediate complications
Operative Findings: After informed verbal consent obtained from the patient's sister, Elizabeth Quiñones over the phone, patient positioned into Trendelenburg. Pre-procedure ultrasound identified right internal jugular vein which was patent with
apical�posterior bolaños touching indicating no thrombus seen, and no stenosis seen either when US probe was fanned up and down. Full sterile technique employed including handwashing, sterile gown, cap, mask, and sterile gloves. Patient draped in
usual fashion. First the R�IJ site was anesthetized with 1% lidocaine instillation using about 10 cc. Trocar inserted into right IJ vein with blood return seen entering syringe. Syringe removed and guidewire inserted into trocar without
resistance. Trocar removed. Dilator inserted without resistance, and then removed without resistance. Trialysis catheter inserted over the wire to the hub and guidewire was removed entirely. Blood return from all 3 ports seen and 10 cc of NS
0.9% instilled into each port without resistance. Triple lumen catheter was sutured in place, with catheter hub covered with Biopatch and then Tegaderm. There were no immediate complications.
[2024-02-09] MEDS: DEXTROSE 50% SYRINGE 12.5 GRAMS IV (20:17)
[2024-02-09 20:20] LABS: Glucose - Point of Care 54 mg/dl (70-99)
[2024-02-09 20:23] LABS: HCO3 28.5 mmol/L (21-28); O2 Saturation % 99.7 % (94-98); PCO2 47 mmHg (35-48); PO2 156 mmHg (83-108); pH 7.39 (7.35-7.45)
[2024-02-09 20:24] LABS: Hematocrit 23.6 % (39.0-52.0); Hemoglobin 8.2 g/dL (13.0-18.0)
[2024-02-09 20:37] LABS: Glucose - Point of Care 134 mg/dl (70-99)
--- NOTE | 2024-02-09 20:48 | PTCARENOTE ---
BS = 54, D50 given as ordered. Repeat BS = 134. Pt remains unresponsive with improved BS, IJ central line placement, and ABG stick. ABG = 7.39/47/156/28.5 on HFNC 50L/100%. 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
[2024-02-09 22:36] LABS: Glucose - Point of Care 81 mg/dl (70-99)
[2024-02-09 23:27] LABS: Glucose - Point of Care 76 mg/dl (70-99)
[2024-02-09 23:57] LABS: Blood Urea Nitrogen 32 mg/dl (9-20); Calcium 7.8 mg/dl (8.4-10.2); Carbon Dioxide 28 mmol/L (22-30); Chloride 99 mmol/L (98-107); Estimated Creatinine Clearance 25 ml/min; Glucose 74 mg/dl (70-99); Potassium 3.2 mmol/L (3.5-5.1); Sodium 139 mmol/L (135-145); eGFR 19.96
[2024-02-10] VITALS (47 sets, daily range): BP systolic 137–166; BP diastolic 59–72; BMI 24.9
[2024-02-10] MEDS: DEXTROSE 50% SYRINGE 12.5 GRAMS IV (00:02)
[2024-02-10 00:38] LABS: Glucose - Point of Care 107 mg/dl (70-99)
[2024-02-10] MEDS: PROTONIX 100 IV ×3 (00:43→19:54)
--- NOTE | 2024-02-10 01:14 | PTCARENOTE ---
systems reviewed, pt able to tell me where he was and birthday still very lethargic, CHG bath and mouth care provided, D5 1/2 increased to 50ml, BMP sent, TL IJ @ 1999 IV tubbing changed for gtts running through IJ, K 3.2 HAND RIGGER notified, half amp of
dextrose repeat glucose 107 will repeat in 2hrs, otherwise refer to documentation
[2024-02-10] MEDS: KCL 100 IV (02:25)
[2024-02-10] MEDS: OFIRMEV 100 IV ×2 (02:28→08:29)
[2024-02-10 02:41] LABS: Glucose - Point of Care 97 mg/dl (70-99)
[2024-02-10] MEDS: CARDENE 200 IV ×3 (03:50→18:28)
[2024-02-10 03:51] LABS: Glucose - Point of Care 96 mg/dl (70-99)
--- NOTE | 2024-02-10 04:14 | PTCARENOTE ---
systems reviewed, Ofirmev per JUN for fever, repleted K, repeat sugars 0340 96, pt a little more awake occasionally yelling for help, when assistance offered no response from pt, otherwise refer to documentation
[2024-02-10 05:18] LABS: % Basophils 0.4 % (0-2); % Eosinophils 1.5 % (0-6); % Lymphocytes 2.6 % (20.5-51.1); % Monocytes 2.9 % (1.7-9.3); % Neutrophils 91.6 % (42.2-75.2); Absolute Basophils 0.1 10^3/uL (0-0.2); Absolute Eosinophils 0.3 10^3/uL (0-0.7); Absolute Immature Granulocytes 0.2 10^3/uL (0-0.05); Absolute Lymphocytes 0.5 10^3/uL (1.2-3.4); Absolute Monocytes 0.5 10^3/uL (0.1-0.6); Hematocrit 23.4 % (39.0-52.0); Hemoglobin 8.2 g/dL (13.0-18.0); Mean Corpuscular Hgb 31.3 pg (27.0-31.0); Mean Corpuscular Volume 89.3 fL (80.0-94.0); Mean Platelet Volume 9.3 fL (7.4-10.4); Nucleated Red Blood Cells % 0 % (-); Platelet Count 198 10^3/uL (130-400); Red Blood Cell Count 2.62 10^6/uL (4.70-6.10); Red Cell Dist. Width 16.6 % (11.5-14.5); White Blood Cell Count 18.5 10^3/uL (4.8-10.8)
[2024-02-10 05:21] LABS: INR 1.48; PT 17.7 Sec (11.4-14.6)
[2024-02-10] MEDS: DILAUDID 0.5 MG IV ×4 (06:04→20:50)
[2024-02-10 06:09] LABS: Glucose - Point of Care 94 mg/dl (70-99)
[2024-02-10] MEDS: SANDOSTATIN 500.6 MCG IV ×2 (08:14→19:57)
[2024-02-10 08:27] LABS: Glucose - Point of Care 95 mg/dl (70-99)
--- NOTE | 2024-02-10 08:30 | PTCARENOTE ---
Assumed care of pt at 0715 following shift report. Pt awake and resting in bed, occasionally calling out 'help me' but unable to relate what he needs help with. Found w/ [place] O2 sitting on forehead. RA POx 88%. O2 applied at 4l/min w/ POx 97%. No
respiratory distress noted. Restlessly moving in bed. Ofirmev given for Irbv=324.4 and what appears to be generalized discomfort. Pt oriented to person and place. Disoriented to time and ? understanding of situation. Bilateral soft wrist restraints
remain in use to protect tubes/lines. Cardene gtt received at 7.5mg/hr- tapered to 5mg/hr for SBP 137. Protonix gtt at 8mg/hr, Sandostatin at 50 mcg/hr. D5 1/2 NSS at 50ml/hr. Physical assessment completed as documented. Repositioned, hygiene and
comfort care provided.
--- NOTE | 2024-02-10 08:33 | W.PN.NEPH.PH ---
Today's Communication / Plan
-
Maintain hypertensive control with IV Cardene and labetalol.
Dialysis tomorrow, orders provided
holding heparin on HD
Patient appears to be close to dry weight
Assessment/Plan
-
Impression:
Acute GI Bleed
Acute Blood Loss Anemia
Coumadin Coagulopathy
Hyperkalemia
Metabolic Acidosis
ESRD on hemodialysis [facility]
Anemia of ESRD
Hypovolemia secondary to the above
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
Paroxysmal Atrial Fibrillation
Chronic HFpEF
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
History of bilateral pleural effusions status post thoracentesis
History of pericardial effusion status post pericardiocentesis
Coronary artery disease
Essential hypertension
DM2 with multiple microvascular complications
Hyperlipidemia
Spinal stenosis
Anxiety/depression
L radial AVF
Plan:
A/w diarrhea, GIB, hgb 3, missed HDx2
sig GIB, hgb better at 8.3 post 7 unts of PRBC
Received dialysis yesterday. Patient will be dialyzed tomorrow
H&H low but stable at 8.2
on nicardene gtt for HTN , prn IV labetalol as well
Reviewed chest x-ray notable for small effusions no gross pulmonary edema
Next dialysis will be arranged for tomorrow
Remains febrile: blood cultures negative thus far
on PPI and Octreotide gtt per GI
Severe erosive esophagitis noted on endoscopy localized small erosion with active bleeding found in cardia of stomach
resume all po BP meds once back on diet
AC on hold
Patient remains critically ill on octreotide and protonix drip for active GI bleeding and Cardene for uncontrolled hypertension
Total Time Spent with Patient (in minutes): 32 minutes
-
-
Date of Service: February 10, 2024
CC / HPI / ROS
-
Chief Complaint:
ESRD
History of Present Illness:
hgb better at 8.3
BP high started nicardipine last evening
on d5 for hypoglycemia
wt is up , on 2lit o2
did ot urinate bladder scan over 300cc
Review of Systems:
Febrile
Currently sedated and wrist restraint
Labs
-
Labs:
WBC 18.5 10^3/uL (4.8-10.8) H 02/10/24 04:59
RBC 2.62 10^6/uL (4.70-6.10) L 02/10/24 04:59
Hgb 8.2 g/dL (13.0-18.0) L 02/10/24 04:59
Hct 23.4 % (39.0-52.0) L 02/10/24 04:59
Plt Count 198 10^3/uL (130-400) 02/10/24 04:59
eGFR Cancelled 02/10/24 06:00
Phosphorus 4.4 mg/dl (2.5-4.5) 02/09/24 02:19
Physical Exam
-
Vital Signs:
Vital Signs
Temp Pulse Resp BP Pulse Ox
100.6 F H 92 20 144/61 100
02/10/24 07:00 02/10/24 06:15 02/10/24 06:15 02/10/24 06:00 02/10/24 07:50
Cardiovascular:: Regular rate and rhythm (tachy)
Respiratory:: Bilateral: Coarse (Decreased breath sounds to bases)
Lung Excursion:: Normal
Abdomen:: Distended
Bowel Sounds:: Decreased
Extremity Edema:: +1: Bilateral:
Alfred Catheter: No
[2024-02-10 08:50] LABS: ALT (SGPT) 18 U/L (0-50); AST (SGOT) 53 U/L (17-59); Albumin 2.3 g/dl (3.5-5.0); Alkaline Phosphatase 151 U/L (38-126); Blood Urea Nitrogen 34 mg/dl (9-20); Calcium 7.7 mg/dl (8.4-10.2); Carbon Dioxide 27 mmol/L (22-30); Chloride 100 mmol/L (98-107); Estimated Creatinine Clearance 22 ml/min; Glucose 94 mg/dl (70-99); Sodium 138 mmol/L (135-145); Total Bilirubin 0.9 mg/dl (0.2-1.3); Total Protein 5.3 g/dl (6.3-8.2); eGFR 17.47
--- NOTE | 2024-02-10 09:15 | W.PN.INTV ---
Today's Communication / Plan
Recommendations
Continue PPI, octreotide gtt--Continue Rocephin--Monitor WBC and Hgb--Monitor blood glucose levels
Assessment
-
Patient is a 58-year-old male with pmh of A-fib on Coumadin,ESRD, HTN, GERD, IDDM, who initially presented with lethargy + coffee-ground emesis and melena starting last Thursday. He had also missed his dialysis due to GI issues. In ED, initial
labs showed Hb 3.1, INR >8, PTT >200, creatinine 8.6, BUN 113, k 5.9, glucose 58, ALP 195. CXR showed small right-sided pleural effusion. He was subsequently admitted to the ICU and we are following for additional recommendations/management.
I saw and evaluated patient this morning. Central line placed. Blood pressure was 144/71 (on Cardene), HR 85, RR 19, O2 sat 97% (on 2L O2). Patient is oriented to time, place, person. Lethargy has markedly improved and is mostly awake.
Since admission, he has received total of 7 units PRBC (last does yesterday am) and Hgb has remained stable to 8.2 this am. WBC elevated after EGD. Is receiving Rocephin. Will check CBC at 1700 again. INR is stable at 1.48. Coumadin still on hold.
Glucose was flucatuating between 50 to 90 past day. Currently 108.
He received hemodialysis yesterday and is scheduled for another one tomorrow. Cr downtrended to 3.8 (previously 4.9). BUN dropped to 34 (previously 68).
#Anemia due to GIB
Appreciate GI input
Continue Rocephine
Continue PPI IV drip, Continue Octreotide for 24 hrs
endoscopy done-no active variceal bleeding- bleeding gastric erosion, unclear if traumatic (due to MR clip)
Monitor H&H q12h
Abd US showed moderate ascites--Consider eventual paracentesis
#Fever, post-EGD PNA
Continue Rocephin
Check white count at 1700
BC x2 sent
#Acute on chronic kidney injury
Appreciate nephro input
had HD yesterday-- became hypokalemic (3.2) after HD;Received KCL 40mg overnight--Resolved--currently K back to normal (4)
Scheduled for 3rd HD tomorrow
#Hypoglycemia
Glucose was fluctuating between 50 to 90 past day. Will continue dextrose 5%
Continue monitoring BG q4h
#Hypoxia
Gradually wean off O2 if pt tolerates (goal: O2 sat greater than 94%)
Subjective Dataa
Subjective Data
Date of Service:
Date of Service: February 10, 2024
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
Subjective:
Patient aspirated after EGD yesterday and was having fevers and chills throughout the night. post-EGD CXR showed increasing opacification compared to previous image. Had blood clots in stool yesterday afternoon but no more rectal bleeding since.
Does not have coffee-ground emesis at this time. His mentation has improved and he is oriented to time, place, person today. Constantly asks for help, mentioning he needs to get up because he is tired. Is not coughing at this time and does not
appear to have worsened respiratory distress. Denies CP.
Review of Systems
General: Other (patient is not cooperative in answering questions.)
Objective Data
Data Reviewed
Vital Signs / I&O / Oxygen:
Vital Signs
Temp Pulse Resp BP Pulse Ox
100.6 F H 97 21 140/71 97
02/10/24 07:00 02/10/24 08:30 02/10/24 08:30 02/10/24 08:30 02/10/24 08:30
Intake and Output
02/09/24 02/10/24 02/11/24
06:59 06:59 06:59
Intake Total 4470.7 / 4859.9 3414.1 / 3553.3 278.4 / 278.4
Output Total 200 / 200 100 / 100
Balance 4270.7 / 4659.9 3314.1 / 3453.3 278.4 / 278.4
SaO2 97
Nasal Cannula flow liters per 50
minute
Physical Exam
General: Comfortable
HEENT: Anicteric
Cardiovascular: S1-S2, Peripheral Edema (1+ b/l LE edema) and Other (rhythm alternating between afib and sinus)
Respiratory: Crackles (Bilateral basilar crackles), Non-Labored Respirations and Other (on 2lit O2 through nasal cannula)
GI: Soft, Non Distended and Normal Bowel Sounds
Neurology: Awake and Oriented (to time, place, person)
Skin: Warm and Dry
Labs/Micro/Reports
Lab Data
02/10/24 04:59
02/10/24 08:07
Laboratory Results
02/09/24 02/10/24
20:17 04:59
PT 17.7 H
INR 1.48
pH 7.39
pCO2 47
pO2 156 H
HCO3 28.5 H
O2 Delivery Level
--- NOTE | 2024-02-10 09:18 | W.PN.HOSP.TC ---
Today's Communication/Plan
-
IV antibiotics. Precedex drip.
Assessment / Plan
Assessment / Plan
Physical exam:
General: Acutely ill
HEENT: Normocephalic, Atraumatic and Dry Mucous Membranes
Respiratory: Decreased breath sounds bilateral; Negative Wheezes, Rales or Rhonchi
Cardiac: Regular Rhythm and S1/S2
GI: Soft, mild tender and Distended
Musculoskeletal: No Clubbing, No Cyanosis and bilateral lower extremity edema
Neuro: Lethargic, move spontaneously 4 extremities but does not follow commands appropriately.
Psych: Limited judgment and insight at the moment.
EGD:
Impression: - Mildly severe esophagitis.
- Grade I esophageal varices. No stigmata of bleeding
- Gastric erosion in the cardia with active bleeding.
Unclear if this was from endoscope trauma. Clip (MR
conditional) was placed. No gastric varices seen.
- Hematin (altered blood/bywecl-ihjdlp-bjkm material)
in the stomach.
- Normal examined duodenum.
A/P:
Acute blood loss anemia:
Status post blood transfusions
Threshold lower in the setting of concerns for variceal bleed and end-stage renal disease/chf to avoid hypervolemia
Initial hemoglobin 3.1 upon admission
Hemoglobin 8.2 this morning
S/P Endoscopy yesterday
Febrile illness, concerns for sepsis:
Suspicious asp pna
Blood cx pending
WBC up to 18K
On Rocephin
Tox metabolic encephalopathy:
Will be started on Precedex drip by freight elevator operator
Continue to monitor mental status
Acute GI bleed:
See scope
Continue IV PPI drip
Continue IV octreotide drip
Continue IV ceftriaxone
Hypertensive emergency:
Started on Cardene drip
Back on clonidine patch
Coagulopathy:
Status post Kcentra and vitamin K
INR over 8--> down to 1.56 today
Cirrhosis:
GI on board
Monitor MELD score
Elevated troponin:
Likely type II LA with demand ischemia
End-stage renal disease on hemodialysis:
Hemodialysis need per nephrology
Toxic metabolic encephalopathy:
Continue to monitor mental status and behavior
Acute hypoxic respiratory failure:
Oxygen supplementation as needed
Paroxysmal atrial fibrillation:
Hold anticoagulation
Cardiac monitoring
Would use rate control if needed
Chronic HFpEF:
Manage volume with dialysis
Diabetes mellitus:
Insulin as needed
D5 as needed for hypoglycemia
Monitor blood sugars
DVT prophylaxis:
SCDs
CODE STATUS:
Full code
Total time spent on today's encounter was 52 minutes which included time spent in counseling the patient/family regarding diagnosis and treatment plan as listed above, goals of care, and symptom management. Case was discussed with nursing staff,
specialists, and care coordinators/case management. All labs and imaging personally reviewed by me. Remainder the time spent in detailed review of previous records, lab data, imaging, and other medical provider documentation.
Anticipated Discharge: > 48 hours
Subjective/Interval History
-
Date of Service: February 10, 2024
Patient more agitated than usual today. Also febrile with Tmax 102.7 Fahrenheit
Objective Data
-
Labs:
Laboratory Results
02/09/24 02/10/24 02/10/24
23:22 04:59 06:00
WBC 18.5 H
Hgb 8.2 L
Hct 23.4 L
Plt Count 198
PT 17.7 H
INR 1.48
Sodium 139 Cancelled
Potassium 3.2 L D Cancelled
Chloride 99 Cancelled
Carbon Dioxide 28 Cancelled
BUN 32 H Cancelled
Creatinine 3.4 H Cancelled
Glucose 74 Cancelled
Calcium 7.8 L Cancelled
Total Bilirubin Cancelled
AST Cancelled
ALT Cancelled
Alkaline Phosphatase Cancelled
02/10/24
08:07
WBC
Hgb
Hct
Plt Count
PT
INR
Sodium 138
Potassium 4.0
Chloride 100
Carbon Dioxide 27
BUN 34 H
Creatinine 3.8 H
Glucose 94
Calcium 7.7 L
Total Bilirubin 0.9
AST 53
ALT 18
Alkaline Phosphatase 151 H
Vital Signs:
Vital Signs
Temp Pulse Resp BP Pulse Ox
100.6 F H 97 21 140/71 97
02/10/24 07:00 02/10/24 08:30 02/10/24 08:30 02/10/24 08:30 02/10/24 08:30
I&O
02/09/24 02/10/24 02/11/24
06:59 06:59 06:59
Intake Total 4470.7 / 4859.9 3414.1 / 3553.3 278.4 / 278.4
Output Total 200 / 200 100 / 100
Balance 4270.7 / 4659.9 3314.1 / 3453.3 278.4 / 278.4
--- NOTE | 2024-02-10 09:48 | W.PN.GI.CBS2 ---
Today's Communication / Plan
-
.
Assessment / Plan
-
Impression: The patient is a 58-year-old male with a PMH of significant for A-fib (on Coumadin), CAD, ERSD on HD on , iron deficiency anemia, heart failure with preserved ejection fraction, history of pleural effusions with
pericardiocentesis, HT, spinal stenosis, GERD, ?Dunlap's Esophagus, prior C-diff, DM, CHF, migraines, gastritis, constipation, new onset ascites with recent outpatient paracentesis, cirrhosis on imagining in December. The patient presented to
the ER on 02.08.24 complaining of N/V/D. He reported having dark stools and missed his and Thursday HD sessions. He then had N/V with dark bloody vomiting. GI was consulted to evaluate the patient to assess. His Hgb on presentation was
3.1 and INR > 8.0 .Previous Hgb on 01/20/24 was 8.6. Patient was started on Protonix bolus and drip Octreotide drip. He was given KCentra and Vitamin K. He has since been transfused 7 units of RBC since the admission. GI team saw him in August 2023
during hospitalization for abdominal pain. Prior to that he had an admission in July with EGD at [place] with esophagitis. He reportedly had EGD/Colonoscopy at [facility] prior to the [place] admission and was told he had Barretts esophagus but
no obvious source of bleeding and was recommended to have Video capsule study. Information obtained from records as patient is not cooperative enough to provide any information. He underwent to EGD on 02/09/24.
-EGD on 02/09/24-
Findings:
Mildly severe esophagitis was found in the lower third of the esophagus.
Grade I varices were found in the lower third of the esophagus. They were small in size.
A single localized small erosion with active bleeding was found in the
cardia. It was not clear if this erosion was from scope trauma or
possibly a Ebenezer's type erosion. No obvious gastric varices seen. For
hemostasis, one hemostatic clip was successfully placed (MR lilliana).
Hematin (altered blood/heklzw-xatqph-noeo material) was found in the
stomach.
The examined duodenum was normal.
Acute GI Bleed -->Severe now with Hgb of 3.1. Prior hx of esophagitis (July 2023 at [place], prior Hx GIB/anemia at [facility] with no bleeding E/C identified with recommended VCE recommended in past)
Acute blood loss anemia on hx of chronic anemia. Baseline Hgb in the 8 range.
Coagulopathy INR 1.48 this morning
ESRD on HD -> //Thu--> last HD was 02/09/24 (missed 02/03 and 02/05)
Cirrhosis -> imaging (12/2023)
Ascites- Paracentesis last (01/20/24)
US Abdominal Doppler: Patent hepatic vasculature with appropriate directional flow, as described above. Moderate diffuse abdominal ascites. No evidence for acute cholecystitis. Hepatic cirrhosis. No focal hepatic lesions.
Hyperkalemia
Metbolic acidosis
HFpEF
PAF
Barretts esophagus
Plan:
-Likely aspiration during EGD. 97% O2 with 2 L flow this morning. Wean O2
-cont abx
-Follow Hgb and INR
-Continue Pantoprazole gtt and octreotide gtt for another day
-Transfuse to keep Hgb in the 7-8 range
-Records release from [facility] and [place].
-Will follow up the patient
Subjective
Subjective
Date of Service: February 10, 2024
The patient was seen in his bed restained form both wrists. He was oriented to his name and place and partially to time. He was some agitated.
Objective
Data Reviewed
Laboratory Data:
Laboratory Results
02/10/24 04:59
02/10/24 08:07
Laboratory Results
PT 17.7 Sec (11.4-14.6) H 02/10/24 04:59
INR 1.48 02/10/24 04:59
APTT > 200 Sec (23.4-35.0) H* 02/08/24 05:01
Phosphorus 4.4 mg/dl (2.5-4.5) 02/09/24 02:19
Magnesium 2.0 mg/dl (1.6-2.3) 02/09/24 02:19
Total Bilirubin 0.9 mg/dl (0.2-1.3) 02/10/24 08:07
AST 53 U/L (17-59) 02/10/24 08:07
ALT 18 U/L (0-50) 02/10/24 08:07
Alkaline Phosphatase 151 U/L (38-126) H 02/10/24 08:07
Vital Signs and I&O:
Vital Signs
Temp Pulse Resp BP Pulse Ox
100.6 F H 97 21 140/71 97
02/10/24 07:00 02/10/24 08:30 02/10/24 08:30 02/10/24 08:30 02/10/24 08:30
I&O
02/09/24 02/10/24 02/11/24
06:59 06:59 06:59
Intake Total 4470.7 / 4859.9 3414.1 / 3553.3 278.4 / 278.4
Output Total 200 / 200 100 / 100
Balance 4270.7 / 4659.9 3314.1 / 3453.3 278.4 / 278.4
Physical Exam
Physical Exam
HEENT: Anicteric and Moist mucous membranes
Cardiology: Normal Sinus Rhythm, S1 and S2
GI: Tense (mild distension.)
Extremities: Edema (1 (+))
Neuro: Other (Diificult to assess. Moving all extremities. )
[2024-02-10] MEDS: D5/0.45%NACL 1000 IV (09:59)
--- NOTE | 2024-02-10 10:12 | PTCARENOTE ---
Pt increasingly restless and agitated, calling out 'help me' loudly but unable to answer what he needs help with. Pt also intermittently calling out 'ouch' but unable to locate or describe pain. Repositioned and comfort care provided w/o change in
restlessness/agitation or verbalization. Dilaudid 0.5mg IV given for CPOT=7.
--- NOTE | 2024-02-10 10:50 | W.PN.GI.CBS2 ---
Today's Communication / Plan
-
Likely aspiration during EGD. Wean O2, cont abx
Hgb relatively stable, 8.2. No further bleeding overnight
Cont protonix and octreotide gtt for another day
Abd soft, but may consider paracentesis downt the road
Assessment / Plan
-
Impression: The patient is a 58-year-old male with a PMH of significant for A-fib (on Coumadin), CAD, ERSD on HD on , iron deficiency anemia, heart failure with preserved ejection fraction, history of pleural effusions with
pericardiocentesis, HT, spinal stenosis, GERD, ?Dunlap's Esophagus, prior C-diff, DM, CHF, migraines, gastritis, constipation, new onset ascites with recent outpatient paracentesis, cirrhosis on imagining in December. The patient presented to
the ER on 02.08.24 complaining of N/V/D. He reported having dark stools and missed his and Thursday HD sessions. He then had N/V with dark bloody vomiting. GI was consulted to evaluate the patient to assess. His Hgb on presentation was
3.1 and INR > 8.0 .Previous Hgb on 01/20/24 was 8.6. Patient was started on Protonix bolus and drip at the admission to ER. Started on Octreotide drip. as well as given KCentra and Vitamin K. He has since been transfused 2 units PRBC. On Kirill
hugger for Temp 94.5. We last saw him in August 2023 during hospitalization for abdominal pain. Prior to that he had an admission in July with EGD at [place] with esophagitis. He reportedly had EGD/Colonoscopy at [facility] prior to the [place]
admission and was told he had Barretts esophagus but no obvious source of bleeding and was recommended to have Video capsule study. Information obtained from records as patient sleepy but arousable. Some dark thin emesis, no red blood. With fecal
management device with dark black/maroon output. BP stable, no pressors. Awaiting repeat labs.
02/09/24 EGD-
Mild esophagitis
Small grade I esophageal varices without stigmata of bleeding
Coffee ground fluid in stomach
Erosion in gastric cardia that was actively bleeding, unclear if this was endoscope trauma or possibly Ebenezer's type erosion. Clip placed
No gastric varices seen
Normal duodenum
Impression:
Acute GI Bleed -->Severe now with Hgb of 3.1. Prior hx of esophagitis (July 2023 at [place], prior Hx GIB/anemia at [facility] with no bleeding E/C identified with recommended VCE recommended in past)
Acute blood loss anemia on hx of chronic anemia. Baseline Hgb in the 8 range.
Coagulopathy INR > 8 (Warfarin)
ESRD on HD -> //Thu--> last HD was 02/02/24 (missed 02/03 and 02/05)
Cirrhosis -> imaging (12/2023)
Ascites- Paracentesis (01/20/24)
Hyperkalemia
Metbolic acidosis
HFpEF
PAF
Barretts esophagus
He had HD on 02.08
Subjective
Subjective
Date of Service: February 10, 2024
Agitated, calling out and asking for 'help' Was on high flow O2, now weaned to 2L NC
Objective
Data Reviewed
Laboratory Data:
Laboratory Results
02/10/24 04:59
02/10/24 08:07
Laboratory Results
PT 17.7 Sec (11.4-14.6) H 02/10/24 04:59
INR 1.48 02/10/24 04:59
APTT > 200 Sec (23.4-35.0) H* 02/08/24 05:01
Phosphorus 4.4 mg/dl (2.5-4.5) 02/09/24 02:19
Magnesium 2.0 mg/dl (1.6-2.3) 02/09/24 02:19
Total Bilirubin 0.9 mg/dl (0.2-1.3) 02/10/24 08:07
AST 53 U/L (17-59) 02/10/24 08:07
ALT 18 U/L (0-50) 02/10/24 08:07
Alkaline Phosphatase 151 U/L (38-126) H 02/10/24 08:07
Vital Signs and I&O:
Vital Signs
Temp Pulse Resp BP Pulse Ox
100.6 F H 97 21 140/71 97
02/10/24 07:00 02/10/24 08:30 02/10/24 08:30 02/10/24 08:30 02/10/24 08:30
I&O
02/09/24 02/10/24 02/11/24
06:59 06:59 06:59
Intake Total 4470.7 / 4859.9 3414.1 / 3553.3 278.4 / 278.4
Output Total 200 / 200 100 / 100
Balance 4270.7 / 4659.9 3314.1 / 3453.3 278.4 / 278.4
Physical Exam
Physical Exam
GI: Soft, Distended and Non Tender
[2024-02-10 11:54] LABS: Glucose - Point of Care 108 mg/dl (70-99)
[2024-02-10] MEDS: ROCEPHIN 1000 MG IV (12:18)
[2024-02-10] MEDS: STERILE WATER FOR INJECTION 10 ML IV (12:18)
--- NOTE | 2024-02-10 14:00 | PTCARENOTE ---
Phone call from pt's sister 'Elizabeth Quiñones'- updated on pt's present condition and plan of care. Questions answered. Pt's sister states 'I will probably not get there to see him (pt) until the weekend'
--- NOTE | 2024-02-10 16:00 | PTCARENOTE ---
Pt continues to rest quietly- intermittently restless. No changes noted from previous assessment findings.
[2024-02-10 17:02] LABS: Glucose - Point of Care 110 mg/dl (70-99)
--- NOTE | 2024-02-10 18:20 | PTCARENOTE ---
Bedside paracentesis completed by Dr Holder. Pt tolerated well. Bandaid applied to site. Peritoneal fluid specimens sent to lab as ordered.
--- NOTE | 2024-02-10 18:30 | W.SUR.POST ---
Surgical Immediate Post Op
Note
Bedside Paracentesis Procedure
Date of procedure: 02/10/2024
Pre Op Diagnosis: Ascites/fevers/concern for SBP
Post Op Diagnosis: Same as above
Procedure Performed: Large-volume paracentesis (diagnostic + therapeutic)
Primary Surgeon/proceduralist: Dr. Sanderson
Secondary Surgeons: N/A
Anesthesia: N/A
Estimated Blood Loss: 5 cc
Fluids: N/A
Drains/Shunts: N/A
Specimens/Cultures: Ascitic fluid cultures (bacterial)
Doppler/Duplex/Angio (Y/N): N/A
Complications: No immediate complication
Operative Findings: After verbal consent obtained the patient's sister, patient was positioned into supine position. Pocket of ascitic fluid identified via ultrasound with most fluid seen in dependent region of RLQ. Full sterile technique was
employed including hand washing, face mask, cap, gown and sterile gloves. Skin was anesthetized with 1% lidocaine without epi. Blunt incision using scalpel was made into right lower quadrant. Paracentesis trochar inserted into RLQ and flow of
yellow ascitic fluid seen, and the catheter was inserted to the hub and the needle was entirely removed from the patient's abdomen. Sample collected with 100cc and sent for analysis. Therapeutic paracentesis started and a total of 6350 cc of
clear, yellow ascitic fluid was removed. Patient tolerated procedure with no immediate complications. Paracentesis catheter was removed from the patient's abdomen, and the insertion site was covered with a Band-Aid. Will give 10 g of 25 g / 25%
albumin for every liter of ascitic fluid removed. Bedside RN, Evonne, assisted with the entire procedure.
[2024-02-10 18:49] LABS: % Basophils 0.5 % (0-2); % Eosinophils 3.7 % (0-6); % Lymphocytes 2.2 % (20.5-51.1); % Monocytes 2.4 % (1.7-9.3); % Neutrophils 90.2 % (42.2-75.2); Absolute Basophils 0.1 10^3/uL (0-0.2); Absolute Eosinophils 0.7 10^3/uL (0-0.7); Absolute Immature Granulocytes 0.2 10^3/uL (0-0.05); Absolute Lymphocytes 0.4 10^3/uL (1.2-3.4); Absolute Monocytes 0.5 10^3/uL (0.1-0.6); Absolute Neutrophils 17.8 10^3/uL (1.4-6.5); Hematocrit 24.8 % (39.0-52.0); Hemoglobin 8.5 g/dL (13.0-18.0); Mean Corp Hgb Conc. 34.3 g/dL (33.0-37.0); Mean Corpuscular Volume 90.5 fL (80.0-94.0); Mean Platelet Volume 9.2 fL (7.4-10.4); Nucleated Red Blood Cells % 0 % (-); Platelet Count 203 10^3/uL (130-400); Red Blood Cell Count 2.74 10^6/uL (4.70-6.10); Red Cell Dist. Width 16.9 % (11.5-14.5); White Blood Cell Count 19.7 10^3/uL (4.8-10.8)
[2024-02-10 19:05] LABS: Body Fluid WBC 123 /CUMM
[2024-02-10 19:06] LABS: Body Fluid Mononuclear 74.8 %; Body Fluid Polymorphonuclear 25.2 %
[2024-02-10 19:11] LABS: Body Fluid Albumin < 1.0 g/dl; Body Fluid Glucose 101 mg/dl; Body Fluid LDH 96 U/L; Body Fluid Protein < 2.0 g/dl
[2024-02-10] MEDS: FLEXBUMIN 100 IV ×2 (19:17→22:00)
[2024-02-10 19:20] LABS: Body Fluid Second Tech HB
[2024-02-10 20:13] LABS: Glucose - Point of Care 121 mg/dl (70-99)
--- NOTE | 2024-02-10 22:46 | PTCARENOTE ---
Report received from off going RN. Dual RN gtt reconciliation completed. Patient received on cardene gtt at 5 mg/hr, protonix gtt at 8 mg/hr, Sandostatin at 50 mcg/hr, and D5-1/2NS at 50 ml/hr. Patient is oriented to self. Patient believed that the
year is 2013. Follows simple commands. Pupils are +2 and reactive. MAEx4. Plan of care for the shift reviewed with the patient. Patient only yells 'help me, help me' on repeat. When asked what the patient needs help with, he yells help me some more.
The patient then verbalized that his right eye itched and wanting to get oob. Assisted the patient whit gentle upper eyebrow relief. Sinus tachy on the monitor with HR 102. Temp 100.3 via rectal prob. Pulses are palpable. skin is warm. +2
generalized anasarca. Pt's on 2L o2 nc. Crackles to bilateral bases. SpO2 at 97%. Hypoactive BS. The patient is anuric. Sacral foam is intact. Mouth care provided. Restraints are in place. Patient repositioned.
~[id number]: Patient transported to and from [place]. Patient remained stable throughout transport.
[id number]: Patient cleansed with CHG wipes. Full linen change completed. Turns and repositioning continued.
[2024-02-11] VITALS (68 sets, daily range): BP systolic 98–174; BP diastolic 47–92; BMI 23.0
[2024-02-11 00:11] LABS: Glucose - Point of Care 140 mg/dl (70-99)
--- NOTE | 2024-02-11 00:30 | PTCARENOTE ---
Patient reassessed. Oriented to self and place. The patient is groaning loudly 'Help' but doesn't tell what is making him uncomfortable. Patient asked if he was in pain and he verbalized 'I can't.' Turns and repositioning continued. Restraints
remain in place. Safety measures maintained.
[2024-02-11] MEDS: FLEXBUMIN 100 IV (01:06)
[2024-02-11] MEDS: DILAUDID 0.5 MG IV ×4 (01:07→22:07)
[2024-02-11 04:13] LABS: Hematocrit 23.5 % (39.0-52.0); Mean Corpuscular Hgb 30.7 pg (27.0-31.0); Mean Platelet Volume 9.6 fL (7.4-10.4); Platelet Count 198 10^3/uL (130-400); Red Blood Cell Count 2.61 10^6/uL (4.70-6.10); Red Cell Dist. Width 16.9 % (11.5-14.5); White Blood Cell Count 17.8 10^3/uL (4.8-10.8)
[2024-02-11 04:21] LABS: INR 1.44; PT 17.6 Sec (11.4-14.6)
[2024-02-11] MEDS: D5/0.45%NACL 1000 IV (04:36)
[2024-02-11 04:43] LABS: ALT (SGPT) 15 U/L (0-50); AST (SGOT) 32 U/L (17-59); Albumin 2.9 g/dl (3.5-5.0); Alkaline Phosphatase 169 U/L (38-126); Blood Urea Nitrogen 41 mg/dl (9-20); Calcium 8.2 mg/dl (8.4-10.2); Carbon Dioxide 22 mmol/L (22-30); Chloride 101 mmol/L (98-107); Direct Bilirubin 0.7 mg/dl (0.0-0.4); Estimated Creatinine Clearance 18 ml/min; Glucose 132 mg/dl (70-99); Magnesium 1.8 mg/dl (1.6-2.3); Phosphorus 3.2 mg/dl (2.5-4.5); Potassium 3.9 mmol/L (3.5-5.1); Sodium 138 mmol/L (135-145); Total Bilirubin 0.8 mg/dl (0.2-1.3); Total Protein 5.8 g/dl (6.3-8.2); eGFR 13.54
[2024-02-11 04:47] LABS: Glucose - Point of Care 137 mg/dl (70-99)
--- NOTE | 2024-02-11 04:48 | PTCARENOTE ---
Patient reassessed. No changes from the previous affessment. Cardene gtt titrated as per protocol.
[2024-02-11] MEDS: CARDENE 200 IV ×2 (04:56→10:41)
[2024-02-11] MEDS: PROTONIX 100 IV (06:11)
[2024-02-11] MEDS: OFIRMEV 100 IV ×2 (06:15→23:30)
--- NOTE | 2024-02-11 07:56 | PTCARENOTE ---
Addendum entered by Malina Murphy RN 02/11/24 09:18:
on HD, cardene titration per work list. more alert, oriented to person and place. still impulsive and restless at times
Original Note:
report received, assessments per work list. patient drowsy, arouses easily, repeating 'help me' frequently. oriented to person only. moving all extremities to command. wrist restraints maintained for patient safety. monitor sinus tach with bbb.
right IJ triple line with good blood returns. Cardene per work list. generalized +2 anasarca, ascites. lungs with crackles 1/2 up bilaterally. abdomen soft, distended. no stools. anuric. sacral foam in place, noted to have stage 1 redness. see work
list
[2024-02-11 08:12] LABS: Glucose - Point of Care 147 mg/dl (70-99)
--- NOTE | 2024-02-11 08:59 | W.PN.NEPH.HD ---
Assessment
-
Patient seen on dialysis
Systolic blood pressure ~ 140
u/f goal increased to 3kg
Remains on Cardene drip as patient is unable to take p.o. meds
Patient underwent large-volume paracentesis last evening followed by IV Albumin (6liters)
Progress Note - Hemodialysis
-
Date of Service: February 11, 2024
Duration: 30 minutes and 3 hours
Potassium Bath: 3
Calcium Bath: 2.5
Opti-Dialyzer: 160
Ultrafiltration: Other (increase u/f to 3kg (as bp elevated on Cardene drip))
Blood Flow: 400
Dialysate Flow: 600
Heparin: none
EPO: 10K and IV iron
--- NOTE | 2024-02-11 09:11 | W.PN.HOSP.TC ---
Addendum entered and electronically signed by Kyle Gamble MD 02/11/24 15:52:
bifascicular block is a valid diagnosis.
Hemorrhagic shock was present
Hypertensive urgency
Original Note:
Today's Communication/Plan
-
IV antibiotics. Cardene drip.
Assessment / Plan
Assessment / Plan
Physical exam:
General: Acutely ill
HEENT: Normocephalic, Atraumatic and Moist Mucous Membranes
Respiratory: Clear to Auscultation; Negative Wheezes, Rales or Rhonchi
Cardiac: Regular Rhythm and S1/S2
GI: Soft, tender epigastric area and Nondistended
Musculoskeletal: Bilateral lower extremity edema. No Clubbing, No Cyanosis
Neuro: Awake, Alert and Oriented, no gross neuro deficits
Psych: Calm
EGD:
Impression: - Mildly severe esophagitis.
- Grade I esophageal varices. No stigmata of bleeding
- Gastric erosion in the cardia with active bleeding.
Unclear if this was from endoscope trauma. Clip (MR
conditional) was placed. No gastric varices seen.
- Hematin (altered blood/qpxyvs-febwdz-dmwg material)
in the stomach.
- Normal examined duodenum.
A/P:
Hypertensive urgency:
Continue Cardene drip
On clonidine patch
BP will likely improve after restarting his oral antihypertensives
Acute GI bleed:
Will start clear liquid diet pending speech therapy eval
Appreciated GI consulted follow-up
Stop PPI and octreotide drip
Continue IV PPI twice a day
Monitor hemoglobin
Acute blood loss anemia with hemorrhagic shock:
Improved
Status post 7 units blood transfusions
Threshold lower in the setting of concerns for variceal bleed and end-stage renal disease/chf to avoid hypervolemia
Initial hemoglobin 3.1 upon admission
Hemoglobin 8.0 today
Sepsis due to aspiration pneumonia:
Continue IV Rocephin
WBC 17.8 today
Blood cultures no growth
Paracentesis done and essentially ruled out SBP. Also, therapeutic paracentesis since over 6 L out and received IV albumin.
SAAG more than 1.3 consistent with portal hypertension.
Toxic metabolic encephalopathy:
Off Precedex drip
Continue monitor mental status
Coagulopathy:
Status post Kcentra and vitamin K
INR over 8--> down to 1.44 today
Cirrhosis:
GI on board
Monitor MELD score
Elevated troponin:
Likely type II GA with demand ischemia
Atypical chest pain:
Received pain medication
Rechecked troponin and still trending down
End-stage renal disease on hemodialysis:
Planning to do hemodialysis per renal 3 KG today
Hemodialysis need per nephrology
Acute hypoxic respiratory failure:
Oxygen supplementation as needed--> remains on 1 L
Titrate oxygen when appropriate
Paroxysmal atrial fibrillation:
Hold anticoagulation until cleared by GI
Cardiac monitoring
Restart rate control agents when able to take oral
Chronic HFpEF:
Manage volume with dialysis
Diabetes mellitus:
Insulin as needed
D5 as needed for hypoglycemia
Monitor blood sugars
DVT prophylaxis:
SCDs
CODE STATUS:
Full code
Total time spent on today's encounter was 52 minutes which included time spent in counseling the patient/family regarding diagnosis and treatment plan as listed above, goals of care, and symptom management. Case was discussed with nursing staff,
specialists, and care coordinators/case management. All labs and imaging personally reviewed by me. Remainder the time spent in detailed review of previous records, lab data, imaging, and other medical provider documentation.
Anticipated Discharge: > 48 hours
Subjective/Interval History
-
Date of Service: February 11, 2024
Patient more alert today, blood pressure still elevated on Cardene drip. Afebrile.
Objective Data
-
Labs:
Laboratory Results
02/11/24
03:54
WBC 17.8 H
Hgb 8.0 L
Hct 23.5 L
Plt Count 198
PT 17.6 H
INR 1.44
Sodium 138
Potassium 3.9
Chloride 101
Carbon Dioxide 22
BUN 41 H
Creatinine 4.7 H*
Glucose 132 H
Calcium 8.2 L
Total Bilirubin 0.8
AST 32
ALT 15
Alkaline Phosphatase 169 H
Vital Signs:
Vital Signs
Temp Pulse Resp BP Pulse Ox
100 F 96 21 145/61 97
02/11/24 07:55 02/11/24 09:00 02/11/24 09:00 02/11/24 09:00 02/11/24 09:00
I&O
02/10/24 02/11/24 02/12/24
06:59 06:59 06:59
Intake Total 3414.1 / 3553.3 3278.3 / 3405.0 392.6 / 392.6
Output Total 100 / 100
Balance 3314.1 / 3453.3 3278.3 / 3405.0 392.6 / 392.6
[2024-02-11] MEDS: SANDOSTATIN 500.6 MCG IV (09:14)
[2024-02-11] MEDS: RETACRIT 10000 UNITS IV (09:37)
[2024-02-11] MEDS: FERRLECIT 125 MG IV (09:37)
--- NOTE | 2024-02-11 09:57 | W.PN.GI.CBS2 ---
Addendum entered and electronically signed by Masood Gracia MD 02/11/24 11:01:
I saw and evaluated the patient. I reviewed the resident�s note and agree with findings and plan as documented in the resident�s note.
More alert today. c/o epigastric pain. No further bleeding
ABD soft mild epigastric tender
paracentesis yesterday- fluid WBC 123 neg SBP, fluid albumin <1 and serum albumin 2.3. SAAG >1.3 c/w portal HTN
REC:
Hgb stable, ok to d/c protonix and octreotide gtt
Respiratory status stable following likely aspiration during EGD
On abx- ceftriaxon
Speech eval and can start clears if ok by Speech
Original Note:
Today's Communication / Plan
-
-Discontinued Pantoprazole gtt and octreotide gtt
-Started Pantoprazole 40 mg IV BID
-Assessment by ST
Assessment / Plan
-
Impression: The patient is a 58-year-old male with a PMH of significant for A-fib (on Coumadin), CAD, ERSD on HD on , iron deficiency anemia, heart failure with preserved ejection fraction, history of pleural effusions with
pericardiocentesis, HT, spinal stenosis, GERD, ?Dunlap's Esophagus, prior C-diff, DM, CHF, migraines, gastritis, constipation, new onset ascites with recent outpatient paracentesis, cirrhosis on imagining in December. The patient presented to
the ER on 02.08.24 complaining of N/V/D. He reported having dark stools and missed his and Thursday HD sessions. He then had N/V with dark bloody vomiting. GI was consulted to evaluate the patient. His Hgb on presentation was 3.1 and INR
> 8.0 .Previous Hgb on 01/20/24 was 8.6. Patient was started on Protonix bolus and drip Octreotide drip. He was given KCentra and Vitamin K. He has been transfused 7 units of RBC since the admission. GI team saw him in August 2023 during
hospitalization for abdominal pain. Prior to that he had an admission in July with EGD at [place] with esophagitis. He reportedly had EGD/Colonoscopy at [facility] prior to the [place] admission and was told he had Barretts esophagus but no
obvious source of bleeding and was recommended to have Video capsule study. Information obtained from records as patient is not cooperative enough to provide any information. He underwent to EGD on 02/09/24 and had a paracentesis 02/10/24.
-EGD on 02/09/24-
Findings:
Mildly severe esophagitis was found in the lower third of the esophagus.
Grade I varices were found in the lower third of the esophagus. They were small in size.
A single localized small erosion with active bleeding was found in the
cardia. It was not clear if this erosion was from scope trauma or
possibly a Ebenezer's type erosion. No obvious gastric varices seen. For
hemostasis, one hemostatic clip was successfully placed (MR conditional).
Hematin (altered blood/kywuzr-eoswcn-xbmd material) was found in the
stomach.
The examined duodenum was normal.
Acute GI Bleed -->Severe with Hgb of 3.1 at admission. Prior hx of esophagitis (July 2023 at [place], prior Hx GIB/anemia at [facility] with no bleeding E/C identified with recommended VCE recommended in past)
Acute blood loss anemia on hx of chronic anemia. Baseline Hgb in the 8 range.
Coagulopathy INR 1.44 this morning
ESRD on HD -> //Thu--> last HD last one was on 02/11/24 and previous was on 02/09/24 (missed 02/03 and 02/05)
Cirrhosis -> imaging (12/2023)
US Abdominal Doppler: Patent hepatic vasculature with appropriate directional flow, as described above. Moderate diffuse abdominal ascites. No evidence for acute cholecystitis. Hepatic cirrhosis. No focal hepatic lesions.
Ascites- Paracentesis last on 02/10/24: Large-volume paracentesis (diagnostic + therapeutic) and was given albumin
HFpEF
PAF
Barretts esophagus
Plan:
-Likely aspiration during EGD. 97% O2 with 2 L flow this morning. Weaned from O2 on 02/11/24 and maintenaning saturation at ~96
-cont abx
-Follow Hgb
-Discontinued Pantoprazole gtt and octreotide gtt today on 02/11/24
-Started Pantoprazole 40 mg BID
-Paracentesis was done on 02/10/24 and results does not reveal SBP
-Transfuse to keep Hgb in the 7-8 range
-Will follow up the patient
Subjective
Subjective
Date of Service: February 11, 2024
The patient was seem in his bed complaining form abdominal discomfort. He was seen less confused and somnolent this morning. He was oriented to time, place and himself
Objective
Data Reviewed
Laboratory Data:
Laboratory Results
02/11/24 03:54
02/11/24 03:54
Laboratory Results
PT 17.6 Sec (11.4-14.6) H 02/11/24 03:54
INR 1.44 02/11/24 03:54
APTT > 200 Sec (23.4-35.0) H* 02/08/24 05:01
Phosphorus 3.2 mg/dl (2.5-4.5) 02/11/24 03:54
Magnesium 1.8 mg/dl (1.6-2.3) 02/11/24 03:54
Total Bilirubin 0.8 mg/dl (0.2-1.3) 02/11/24 03:54
AST 32 U/L (17-59) 02/11/24 03:54
ALT 15 U/L (0-50) 02/11/24 03:54
Alkaline Phosphatase 169 U/L (38-126) H 02/11/24 03:54
Vital Signs and I&O:
Vital Signs
Temp Pulse Resp BP Pulse Ox
100 F 96 21 145/61 96
02/11/24 07:55 02/11/24 09:00 02/11/24 09:00 02/11/24 09:00 02/11/24 09:00
I&O
02/10/24 02/11/24 02/12/24
06:59 06:59 06:59
Intake Total 3414.1 / 3553.3 3278.3 / 3405.0 392.6 / 392.6
Output Total 100 / 100
Balance 3314.1 / 3453.3 3278.3 / 3405.0 392.6 / 392.6
Physical Exam
Physical Exam
HEENT: Anicteric
Cardiology: Normal Sinus Rhythm, S1 and S2
Pulmonary: Clear
GI: Soft, Distended (Mildly ), Non Tender and Other (No rebound no guarding )
Extremities: No Edema
--- NOTE | 2024-02-11 10:06 | PTCARENOTE ---
patient c/o chest pain mid chest. 'someone standing on my chest'. ekg completed, Dilaudid given for pain, relieved post Dilaudid. hospitalist and picking tech notified by tiger text. troponin ordered and collected
[2024-02-11 10:53] LABS: Troponin I 0.378 ng/ml
[2024-02-11 12:02] LABS: Glucose - Point of Care 111 mg/dl (70-99)
--- NOTE | 2024-02-11 12:22 | CM ---
CM following re: discharge planning.
Reviewed pt's chart, met with pt. Per Rounds meeting, patient remains drowsy, arouses easily, repeating 'help me' frequently, oriented to person only, restraints on wrist, continue supportive care.
[facility] offered a bed, pending a referral to [facility] onsite. CM faxed a referral to [facility]site [facility] at [phone].
D/C plan: [facility] for a [place] and [place] a [place] [facility] care. [facility] referral made.
CM will follow to assist pt with discharge to [facility] with [facility].
[2024-02-11] MEDS: NSS (PRESERVATIVE FREE) 10 ML IV ×2 (12:29→20:20)
[2024-02-11] MEDS: PROTONIX IV 40 MG IV ×2 (12:29→20:21)
[2024-02-11] MEDS: ROCEPHIN 1000 MG IV (12:30)
[2024-02-11] MEDS: STERILE WATER FOR INJECTION 10 ML IV (12:30)
--- NOTE | 2024-02-11 12:31 | W.PN.INTV ---
Today's Communication / Plan
Recommendations
Stopped PPI and octreotide drip- Now PPI IV BID
Continue Rocephin-Monitor BP with the goal of trying to get pt off Cardene drip
ADAT after speech eval
Assessment
-
Patient is a 58-year-old male with pmh of A-fib on Coumadin,ESRD, HTN, GERD, IDDM, who initially presented with lethargy + coffee-ground emesis and melena starting last Thursday. Day 4 of ICU admission.
I saw and evaluated patient this morning. Central line placed. Blood pressure was 159/91 (on Cardene 7.5), HR 100, RR 19, O2 sat 97% (weaned off to 1L O2 from 2L previously). Patient is oriented to place. Patient had some confusion last night and
head CT done which did not show acute abnormalities. He is currently alert and awake. Also had some abd pain yesterday evening. abd CT showed apparent wall thickening of the cecum and ascending colon favored to represent colitis.
Hgb is stable at 8 (s/p 7 units PRBC). Coumadin still on hold.
WBC downtrending after mild elevation post-EGD. Is receiving Rocephin. Will check CBC daily.
Goal is to get off Cardene.
#Anemia due to GIB
Resolved-s/p 7 units PRBC
No further GIB
Continue Rocephin
Stopped PPI and Octreotide drip-Continue PPI IV BID
ADAT after speech eval
Monitor H&H q24h
Abd US showed moderate ascites-- paracentesis yesterday yielded 6350 cc fluid. IV albumin given post-paracentesis--Ascitic F/A: albumin<1, PMN=25.
#post-EGD PNA
Fever resolved--Leukocytosis downtrending
Continue Rocephin
Check CBC next am
BC x2 sent: initial results negative
#Acute on chronic kidney injury
HD this morning
Appreciate nephro--u/f goal increased to 3kg
#Hypoglycemia
Glucose has been stable around 130-140s. Continue dextrose 5%
Continue monitoring BG q6h
#Hypoxia
Gradually wean off O2 if pt tolerates (goal: O2 sat greater than 94%)
Subjective Dataa
Subjective Data
Date of Service:
Date of Service: February 11, 2024
Chief Complaint: [place] Hand Follow Up
Subjective:
Patient is oriented to place. He is currently alert and awake. Paracentesis yesterday yielded 6350 cc fluid. No further GIB. No apparent respiratory distress (on 1L O2). No coughing. HD this morning.
Objective Data
Data Reviewed
Vital Signs / I&O / Oxygen:
Vital Signs
Temp Pulse Resp BP Pulse Ox
98.6 F 90 20 154/54 97
02/11/24 12:04 02/11/24 10:15 02/11/24 10:15 02/11/24 10:15 02/11/24 10:17
Intake and Output
02/10/24 02/11/24 02/12/24
06:59 06:59 06:59
Intake Total 3414.1 / 3553.3 3278.3 / 3405.0 531.8 / 531.8
Output Total 100 / 100
Balance 3314.1 / 3453.3 3278.3 / 3405.0 531.8 / 531.8
SaO2 97
Nasal Cannula flow liters per 1
minute
Physical Exam
HEENT: Anicteric
Cardiovascular: S1-S2, Regular Rhythm and Peripheral Edema (1+ b/l LE edema)
Respiratory: Crackles (Bilateral basilar crackles), Non-Labored Respirations and Other (on 1lit O2 )
GI: Soft, Non Distended and Normal Bowel Sounds
Neurology: Awake and Oriented (to place)
Skin: Warm and Dry
Labs/Micro/Reports
Lab Data
02/11/24 03:54
02/11/24 03:54
Laboratory Results
02/11/24
03:54
PT 17.6 H
INR 1.44
Microbiology
02/10/24 18:33 Peritoneal Fluid Gram Stain - Preliminary
02/09/24 15:42 Blood/Venous Blood Culture - Preliminary
No Growth in 24 hours- Final report to follow
--- NOTE | 2024-02-11 12:46 | PTCARENOTE ---
HD completed, reassessed. crackles persist bases. remains on 1 liter nasal. cardene per work list
--- NOTE | 2024-02-11 14:10 | PTOTSP ---
ST Acute Care Evaluation
Pt currently presents with clinical signs of mild oral dysphagia and esophageal dysfunction as evidenced by inadequate labial seal resulting in anterior spillage of liquids and prolonged bolus manipulation and propulsion posteriorly as well as
occasional eructation after ingestion of liquids (in addition to known baseline GERD, Dunlap's esophagus, esophageal varices, and recent GI bleed).
Recommendations:
- Initiate PO diet of pureed solids, thin liquids, meds as tolerated.
- Per GI, initiate clear liquid diet first prior to advancing.
- Aspiration and reflux precautions: Fully awake, alert, and upright for all PO intake as well as for at least 60 minutes after PO intake; assistance with PO intake; small bites/sips; slow intake rate; alternate solids/liquids.
- FINANCIAL INVESTMENT MANAGER to f/u re: diet tolerance, airway protection, re-assessment for candidacy of PO diet advancement (pending GI clearance), as well as to determine if pt would benefit from an instrumental swallow study.
[2024-02-11] MEDS: APRESOLINE 10 MG IV (14:47)
--- NOTE | 2024-02-11 14:58 | PN.CDI ---
CDI
- -
CDI:
Physician Documentation Request
Admit Date: 02/08/24 06:20
Dear Doctor Mavis,
Patient admitted with acute blood loss anemia. Also having issues with hypertension.
Hospitalist progress notes state 'hypertensive emergency, started on Cardene drip'
Shrimp Boat Captain refer to the issue as hypertensive urgency.
Other diagnosis included Tox met encephalopathy, acute GI bleed, type II CA with demand ischemia.
In an attempt to clarify potentially conflicting documentation, please clarify the diagnosis:
Hypertensive Urgency - B/P is severely elevated (systolic > or = to 180 or diastolic > or = to 110) but there is no associated organ damage. Symptoms may include: headache, shortness of breath, nosebleeds, severe anxiety. Treatment usually consists
of addition to or adjusting of oral medications and does not generally necessitate hospitalization.
Hypertensive Emergency - B/P is severely elevated (systolic > or = to 180 or diastolic > or = to 110) but can occur at lower levels especially in patients who did not previously have high B/P. There is usually associated organ damage. Symptoms may
include: memory loss, LOC, CVA, CA, angina, renal failure, pulmonary edema. Generally requires more aggressive treatment and a hospitalization.
Hypertensive Crisis - an acute elevation in B/P that can lead to organ damage. Broad term that is further differentiated to include urgency or emergency based on presence of organ damage.
Other (please specify)
Use of terms such as suspected, likely, concern for, or probable (associated with a specific diagnosis that is being evaluated, monitored, or treated as if it exists) are acceptable and can be coded in the inpatient setting, when documented at the
time of discharge.
Thank you,
Yessenia DE LEON
CDI Specialist
tiger text
Please use your independent medical judgment in providing your response.
--- NOTE | 2024-02-11 15:04 | PN.CDI ---
CDI
- -
CDI:
Physician Documentation Request
Admit Date: 02/08/24 06:20
Dear Doctor Gamble,
Please review the following and provide your response in the progress notes.
Clinical Indicators:
The diagnosis of bifascicular block was included in the signed EKG on 02/08
Please indicate in your progress notes if you are in agreement that the above diagnosis is valid for this patient:
____ - bifascicular block is a valid diagnosis (Please include it in your progress notes)
____ - bifascicular block is not a valid diagnosis for this patient
____ - Other
Use of terms such as suspected, likely, concern for, or probable are acceptable for a diagnosis that is being evaluated, monitored or treated as if it exists and can be coded in the inpatient setting, when documented at the time of discharge.
Thank you,
Yessenia Villalba RN, BSN
CDI Specialist
tiger text
Please use your independent medical judgment in providing your response.
--- NOTE | 2024-02-11 15:09 | PN.CDI ---
CDI
- -
CDI:
Physician Documentation Request
Admit Date: 02/08/24 06:20
Dear Doctor Mavis,
Clinical Indicators:
The diagnosis of Hemorrhagic shock was documented on 02/07 in ED record, but is not consistently noted in subsequent documentation.
Please clarify the following:
____ - Hemorrhagic shock was present
____ - Hemorrhagic shock was ruled out
____ - Other
Use of terms such as suspected, likely, concern for, or probable (associated with a specific diagnosis that is being evaluated, monitored, or treated as if it exists) are acceptable and can be coded in the inpatient setting, when documented at the
time of discharge.
Thank you,
Yessenia Villalba RN, BSN
CDI Specialist
tiger text
Please use your independent medical judgment in providing your response.
--- NOTE | 2024-02-11 15:56 | PTCARENOTE ---
patient reassessed. oriented to person and place, forgetful and compulsive. dangled at bedside. unable to hold self up, generalized weakness. cardene wean per work list
[2024-02-11] MEDS: APRESOLINE 100 MG PO ×2 (17:13→20:22)
[2024-02-11] MEDS: ALDACTONE 25 MG PO (17:13)
--- NOTE | 2024-02-11 17:21 | PTCARENOTE ---
Addendum entered by Malina Murphy RN 02/11/24 18:32:
cardene remains off, oral antihypertensives administered
Original Note:
patient yelling, wants to take a walk. no shirt term memory, no recollection of his inability to hold self up at bedside. redirected. c/o pain. medicated with Dilaudid, restraints maintained for patient safety
[2024-02-11 17:46] LABS: Glucose - Point of Care 141 mg/dl (70-99)
[2024-02-11] MEDS: NOVOLOG FLEXPEN-LOW RESISTANCE SC (18:04)
[2024-02-11] MEDS: COZAAR 100 MG PO (18:21)
[2024-02-11] MEDS: FLAGYL 500 MG PO (18:21)
[2024-02-11] MEDS: PROCARDIA XL (EXTENDED RELEASE) 60 MG PO (18:21)
[2024-02-11] MEDS: LIPITOR 80 MG PO (20:22)
[2024-02-11] MEDS: CATAPRES 0.2 MG PO (20:22)
--- NOTE | 2024-02-11 21:30 | PTCARENOTE ---
Pt continues to be restrained for impulsiveness and agitation. Pt c/o 01/27 whole body pain. PRN dose of Dilaudid administered by this RN.
[2024-02-12] VITALS (34 sets, daily range): BP systolic 91–122; BP diastolic 43–66; PULSE 70; O2SAT 93; BMI 23.2
[2024-02-12 00:03] LABS: Glucose - Point of Care 205 mg/dl (70-99)
[2024-02-12] MEDS: FLAGYL 500 MG PO ×4 (00:41→23:34)
[2024-02-12] MEDS: NOVOLOG FLEXPEN-LOW RESISTANCE 2 UNITS SC ×2 (00:41→17:42)
--- NOTE | 2024-02-12 01:00 | PTCARENOTE ---
Upon reassessment pt is resting comfortably.
[2024-02-12] MEDS: DILAUDID 0.5 MG IV ×2 (02:49→11:14)
[2024-02-12] MEDS: D5/0.45%NACL 1000 IV (05:59)
[2024-02-12 06:17] LABS: % Basophils 0.3 % (0-2); % Eosinophils 4.6 % (0-6); % Immature Granulocytes 0.8 % (0-0.5); % Lymphocytes 3.2 % (20.5-51.1); % Monocytes 3.6 % (1.7-9.3); % Neutrophils 87.5 % (42.2-75.2); Absolute Basophils 0.1 10^3/uL (0-0.2); Absolute Eosinophils 0.9 10^3/uL (0-0.7); Absolute Immature Granulocytes 0.2 10^3/uL (0-0.05); Absolute Lymphocytes 0.6 10^3/uL (1.2-3.4); Absolute Monocytes 0.7 10^3/uL (0.1-0.6); Absolute Neutrophils 16.1 10^3/uL (1.4-6.5); Hematocrit 26.5 % (39.0-52.0); Mean Corpuscular Hgb 30.7 pg (27.0-31.0); Mean Corpuscular Volume 90.4 fL (80.0-94.0); Mean Platelet Volume 9.6 fL (7.4-10.4); Nucleated Red Blood Cells % 0.2 % (-); Platelet Count 225 10^3/uL (130-400); Red Blood Cell Count 2.93 10^6/uL (4.70-6.10); Red Cell Dist. Width 17.2 % (11.5-14.5); White Blood Cell Count 18.4 10^3/uL (4.8-10.8)
[2024-02-12 06:21] LABS: Ammonia < 9 umol/L (9-30); INR 1.34; PT 16.7 Sec (11.4-14.6)
[2024-02-12 06:24] LABS: ALT (SGPT) 14 U/L (0-50); AST (SGOT) 21 U/L (17-59); Albumin 2.5 g/dl (3.5-5.0); Alkaline Phosphatase 183 U/L (38-126); Blood Urea Nitrogen 25 mg/dl (9-20); Calcium 8.1 mg/dl (8.4-10.2); Carbon Dioxide 26 mmol/L (22-30); Chloride 98 mmol/L (98-107); Estimated Creatinine Clearance 23 ml/min; Glucose 176 mg/dl (70-99); Magnesium 1.7 mg/dl (1.6-2.3); Phosphorus 2.6 mg/dl (2.5-4.5); Potassium 3.7 mmol/L (3.5-5.1); Sodium 138 mmol/L (135-145); Total Bilirubin 0.7 mg/dl (0.2-1.3); Total Protein 5.4 g/dl (6.3-8.2); eGFR 18.04
[2024-02-12] MEDS: NOVOLOG FLEXPEN-LOW RESISTANCE 1 UNITS SC (06:34)
[2024-02-12] MEDS: B COMPLEX w/VITAMIN C 1 CAPLET PO (07:35)
[2024-02-12] MEDS: APRESOLINE 100 MG PO (07:35)
[2024-02-12] MEDS: PROCARDIA XL (EXTENDED RELEASE) 60 MG PO (07:35)
[2024-02-12] MEDS: ALDACTONE 25 MG PO (07:35)
[2024-02-12] MEDS: COZAAR 100 MG PO (07:36)
[2024-02-12] MEDS: NSS (PRESERVATIVE FREE) 10 ML IV ×2 (07:36→19:46)
[2024-02-12] MEDS: ZOLOFT 100 MG PO (07:36)
[2024-02-12] MEDS: CATAPRES 0.2 MG PO ×2 (07:36→16:48)
[2024-02-12] MEDS: PROTONIX IV 40 MG IV ×2 (07:37→19:46)
--- NOTE | 2024-02-12 08:07 | PTCARENOTE ---
report received, assessments per work list. patient yelling out, makes attempts to get up from bed. wrist restraints continue for patient safety. oriented to person and place, very forgetfull, very poor short term memory. lungs with basilar
crackles, no cough. soft ascites. right IJ triple line patent with good blood returns. + 2 anasarca. able to take oral medications with clears without signs aspiration. call nieto in hand. bed alarm activated
--- NOTE | 2024-02-12 09:11 | W.PN.HOSP.TC ---
Addendum entered and electronically signed by Kyle Gamble MD 02/12/24 13:21:
Yes, GI bleeding is related to/associated with/due to/exacerbated by Coumadin.
Original Note:
Today's Communication/Plan
-
Antibiotics. HD. DM mgt. HTN meds.
Assessment / Plan
Assessment / Plan
Physical exam:
General: Acutely ill
HEENT: Normocephalic, Atraumatic and Moist Mucous Membranes
Respiratory: Clear to Auscultation; Negative Wheezes, Rales or Rhonchi
Cardiac: Regular Rhythm and S1/S2
GI: Soft, tender epigastric area and Nondistended
Musculoskeletal: Bilateral lower extremity edema. No Clubbing, No Cyanosis
Neuro: Awake, Alert and Oriented, no gross neuro deficits
Psych: Calm
EGD:
Impression: - Mildly severe esophagitis.
- Grade I esophageal varices. No stigmata of bleeding
- Gastric erosion in the cardia with active bleeding.
Unclear if this was from endoscope trauma. Clip (MR
conditional) was placed. No gastric varices seen.
- Hematin (altered blood/rwmmnl-yptuel-etwc material)
in the stomach.
- Normal examined duodenum.
CT head:
No acute intracranial abnormality noted.
CT abd/pelvis:
1. There is increased bibasilar consolidations with new surrounding groundglass opacities and small nodular consolidations in the posterior upper lobes suspicious for multifocal pneumonia.
2. There is apparent wall thickening of the cecum and ascending colon favored to represent colitis
3. Cholelithiasis.
4. Small volume ascites.
5. Extensive atherosclerotic indications.
A/P:
Acute GI bleed:
On clear liquid diet per GI
Appreciated GI consulted follow-up
Stop PPI and octreotide drip
Continue IV PPI twice a day
Monitor hemoglobin
Sepsis due to aspiration pneumonia:
Continue IV Rocephin and started on Metronidazole
WBC 18.[address] chest abd pelvis reviewed
Blood cultures no growth
Paracentesis done and essentially ruled out SBP. Also, therapeutic paracentesis since over 6 L out and received IV albumin.
SAAG more than 1.3 consistent with portal hypertension.
Hypertensive urgency:
Off Cardene drip
On clonidine patch
BP improving after restarting his oral antihypertensives
Acute blood loss anemia with hemorrhagic shock:
Improved
Status post 7 units blood transfusions
Threshold lower in the setting of concerns for variceal bleed and end-stage renal disease/chf to avoid hypervolemia
Initial hemoglobin 3.1 upon admission
Hemoglobin 8.0 today
Toxic metabolic encephalopathy:
Off Precedex drip
Continue monitor mental status
Coagulopathy:
Status post Kcentra and vitamin K
INR over 8--> down to 1.34 today
Cirrhosis:
GI on board
Monitor MELD score
Elevated troponin:
Likely type II DE with demand ischemia
Atypical chest pain:
Received pain medication
Rechecked troponin and still trending down
End-stage renal disease on hemodialysis:
Planning to do hemodialysis per renal 3 KG today
Hemodialysis need per nephrology
Acute hypoxic respiratory failure:
Oxygen supplementation as needed--> remains on 1 L
Titrate oxygen when appropriate
Paroxysmal atrial fibrillation:
Hold anticoagulation until cleared by GI
Cardiac monitoring
Restart rate control agents when able to take oral
Chronic HFpEF:
Manage volume with dialysis
Diabetes mellitus:
Insulin as needed
D5 as needed for hypoglycemia
Diabetes consult to SPEED READING TEACHER
Monitor blood sugars
DVT prophylaxis:
SCDs
CODE STATUS:
Full code
Total time spent on today's encounter was 52 minutes which included time spent in counseling the patient/family regarding diagnosis and treatment plan as listed above, goals of care, and symptom management. Case was discussed with nursing staff,
specialists, and care coordinators/case management. All labs and imaging personally reviewed by me. Remainder the time spent in detailed review of previous records, lab data, imaging, and other medical provider documentation.
Anticipated Discharge: > 48 hours
Subjective/Interval History
-
Date of Service: February 12, 2024
no cp, no sob. afebrile
Objective Data
-
Labs:
Laboratory Results
02/12/24
05:55
WBC 18.4 H
Hgb 9.0 L
Hct 26.5 L
Plt Count 225
PT 16.7 H
INR 1.34
Sodium 138
Potassium 3.7
Chloride 98
Carbon Dioxide 26
BUN 25 H
Creatinine 3.7 H
Glucose 176 H
Calcium 8.1 L
Total Bilirubin 0.7
AST 21
ALT 14
Alkaline Phosphatase 183 H
Vital Signs:
Vital Signs
Temp Pulse Resp BP Pulse Ox
99.4 F 83 22 110/65 96
02/12/24 07:55 02/12/24 07:36 02/12/24 07:32 02/12/24 07:36 02/12/24 07:55
I&O
02/11/24 02/12/24 02/13/24
06:59 06:59 06:59
Intake Total 3278.3 / 3405.0 2434.3 / 2459.3 290 / 290
Balance 3278.3 / 3405.0 2434.3 / 2459.3 290 / 290
--- NOTE | 2024-02-12 09:57 | W.PN.GI.CBS2 ---
Addendum entered and electronically signed by Destiny Macias MD 02/12/24 17:07:
I saw and examined the patient.
The Resident's note was reviewed and I agree with the note.
Patient denies any abdominal pain, nausea or vomiting. He is currently tolerating clear liquid diet. No fevers or chills. No bowel movement since 02/08.
-Currently on pantoprazole 40 mg IV twice daily. Hemoglobin seems to be stable, no overt bleeding.
Continue to monitor H&H and transfuse if needed.
Advance to full liquid diet. 1200 mL fluid restriction. Reviewed speech recommendation, pur�ed solids and thin liquids suggested.
Unclear etiology for this GI bleeding but cannot rule out Ebenezer's lesion, no evidence of definite variceal bleeding.
Abdominal ultrasound showing nodular contour of the liver but CT scan showed normal liver morphology.
Patient denies any significant alcohol use and reports last drink 5 years ago.
Might benefit from outpatient FibroScan.
-Leukocytosis without fever
Possible aspiration during the procedure, currently on antibiotics.
Comment:
Original Note:
Today's Communication / Plan
-
-Advance diet if he can tolerate clear liquid
-Follow up Hgb level
Assessment / Plan
-
Impression: The patient is a 58-year-old male with a PMH of significant for A-fib (on Coumadin), CAD, ERSD on HD on , iron deficiency anemia, heart failure with preserved ejection fraction, history of pleural effusions with
pericardiocentesis, HT, spinal stenosis, GERD, ?Dunlap's Esophagus, prior C-diff, DM, CHF, migraines, gastritis, constipation, new onset ascites with recent outpatient paracentesis, cirrhosis on imagining in December. The patient presented to
the ER on 02.08.24 complaining of N/V/D. He reported having dark stools and missed his and Thursday HD sessions. He then had N/V with dark bloody vomiting. GI was consulted to evaluate the patient. His Hgb on presentation was 3.1 and INR
> 8.0 .Previous Hgb on 01/20/24 was 8.6. Patient was started on Protonix bolus and drip Octreotide drip. He was given KCentra and Vitamin K. He has been transfused 7 units of RBC since the admission. GI team saw him in August 2023 during
hospitalization for abdominal pain. Prior to that he had an admission in July with EGD at [facility] with esophagitis. He reportedly had EGD/Colonoscopy at [facility] prior to the [facility] admission and was told he had Barretts esophagus but no
obvious source of bleeding and was recommended to have Video capsule study. Information obtained from records as patient is not cooperative enough to provide any information. He underwent to EGD on 02/09/24 and had a paracentesis 02/10/24.
-EGD on 02/09/24-
Findings:
Mildly severe esophagitis was found in the lower third of the esophagus.
Grade I varices were found in the lower third of the esophagus. They were small in size.
A single localized small erosion with active bleeding was found in the
cardia. It was not clear if this erosion was from scope trauma or
possibly a Ebenezer's type erosion. No obvious gastric varices seen. For
hemostasis, one hemostatic clip was successfully placed (MR conditional).
Hematin (altered blood/gaqvrl-mhgwab-uxys material) was found in the
stomach. The examined duodenum was normal.
Acute GI Bleed -->Severe with Hgb of 3.1 at admission. Prior hx of esophagitis (July 2023 at [facility], prior Hx GIB/anemia at [facility] with no bleeding E/C identified with recommended VCE recommended in past)
Acute blood loss anemia on hx of chronic anemia. Baseline Hgb in the 8 range.
Coagulopathy INR 1.44 this morning
ESRD on HD -> //Thu--> last HD last one was on 02/11/24 and previous was on 02/09/24 (missed 02/03 and 02/05)
Cirrhosis -> imaging (12/2023)
US Abdominal Doppler: Patent hepatic vasculature with appropriate directional flow, as described above. Moderate diffuse abdominal ascites. No evidence for acute cholecystitis. Hepatic cirrhosis. No focal hepatic lesions.
Ascites- Paracentesis last on 02/10/24: Large-volume paracentesis (diagnostic + therapeutic) and was given albumin: fluid WBC 123 neg SBP, fluid albumin <1 and serum albumin 2.3. SAAG >1.3 c/w portal HTN
HFpEF
PAF
Barretts esophagus
Plan:
-Able to maintenance O2 at ~96% in room after following likely aspiration during EGD since yesterday
-cont ceftriaxone x 7 days in total
-Follow Hgb:Transfuse to keep Hgb in the 7-8 range. hgb is likely stable ~8.0 since last transfusion at 02/08
-Hold all anti-platelets/anti-coagulants until GI bleed resolves and Hb stable for >48-72 hrs
-Continue Pantoprazole 40 mg BID
-Paracentesis was done on 02/10/24 and results does not reveal SBP
-Started to clear liquid diet on 02.10 and reports tolerating well without abdominal pain/No bowel movement yet
-Can advance his diet if he can keep tolerate well.
-CT A/P- 02/10/2024: showed colitis from cecum to ascending colon: added flagyl and planning finish a 5-7 day course by life science technical officer team.
-Will follow up the patient
Subjective
Subjective
Date of Service: February 12, 2024
Patient is in his bed, more awake and alerted. OrintedX3. No bowel movement yet, no nausea or vomiting. Denies abdominal pain/tenderness this morning.
Objective
Data Reviewed
Laboratory Data:
Laboratory Results
02/12/24 05:55
02/12/24 05:55
Laboratory Results
PT 16.7 Sec (11.4-14.6) H 02/12/24 05:55
INR 1.34 02/12/24 05:55
APTT > 200 Sec (23.4-35.0) H* 02/08/24 05:01
Phosphorus 2.6 mg/dl (2.5-4.5) 02/12/24 05:55
Magnesium 1.7 mg/dl (1.6-2.3) 02/12/24 05:55
Total Bilirubin 0.7 mg/dl (0.2-1.3) 02/12/24 05:55
AST 21 U/L (17-59) 02/12/24 05:55
ALT 14 U/L (0-50) 02/12/24 05:55
Alkaline Phosphatase 183 U/L (38-126) H 02/12/24 05:55
Vital Signs and I&O:
Vital Signs
Temp Pulse Resp BP Pulse Ox
99.4 F 82 19 112/43 95
02/12/24 07:55 02/12/24 09:00 02/12/24 09:00 02/12/24 09:00 02/12/24 09:00
I&O
02/11/24 02/12/24 02/13/24
06:59 06:59 06:59
Intake Total 3278.3 / 3405.0 2434.3 / 2459.3 555 / 555
Balance 3278.3 / 3405.0 2434.3 / 2459.3 555 / 555
Physical Exam
Physical Exam
HEENT: Anicteric
Cardiology: Normal Sinus Rhythm, S1 and S2
Pulmonary: Clear
GI: Soft, Distended (mildly ) and Non Tender
Extremities: No Edema
--- NOTE | 2024-02-12 10:08 | PN.DE.MGMTRT ---
Insulin Management
- -
02/12/2024: Diabetes Management Consult
58 year old male admitted on 02/07 with 4 day hx of lethargy, coffee-ground emesis and melena.
PMH: ESRD on HD, A-fib on Coumadin, HTN, GERD, IDDM.
Patient is awake, alert, oriented to place, poor historian, unable to provide full details of his diabetes mgt
States he has been a diabetic for over 28 year and routinely follows up with Endocrine Dr. Jorge Lopez at [facility] in [place], uses free style bautista glucose meter. States he was taking Tresiba but it was recently discontinued due to
recurrent Hypoglycemia. Reports taking Humalog 5 units before meals and no other diabetes medication.
He remains on clear liquid diet awaiting GI to advance diet, possibly to pur�e if cleared.
Of note, pt had recurrent episodes of hypoglycemia on 02/07 and 02/08 as low as 45, requiring D5 infusion.
His glucose improved and was initiated on low corrective insulin requiring 1-2 units of coverage for glucose range of 170 to 205.
Discussed with Nurse who reports that D5 infusion was d/c'd this AM. Nurse was asked to HOLD corrective insulin if blood sugar is <180.
Will closely follow and start low dose AC if diet is advanced.
Diabetes History
- -
Type of Diabetes: 2 requiring insulin
Pre-Admission Diabetes Regimen
02/12/24
05:55
Creatinine 3.7 H
Insulin Pump Settings
IP Diabetes Regimen
02/11/24 02/11/24 02/11/24
11:51 17:35 23:52
Glucose
POC Glucose 111 H 141 H 205 H
02/12/24
05:55
Glucose 176 H
POC Glucose
Meal type: Breakfast
Meal type: Dinner
Amount consumed: 50%
Amount consumed: 5%
Patient Education
--- NOTE | 2024-02-12 10:08 | PN.CDI ---
CDI
- -
CDI:
Physician Documentation Request
Admit Date: 02/08/24 06:20
Dear Doctor Mavis,
Patient presented with GI bleed. Patient takes Coumadin at home
Initial INR > 8
Please clarify the relationship between these conditions:
Yes, GI bleeding is related to/associated with/due to/exacerbated by Coumadin.
No, GI bleeding is not related to/associated with/due to/exacerbated by Coumadin
Unable to determine
Use of terms such as suspected, likely, concern for, or probable (associated with a specific diagnosis that is being evaluated, monitored, or treated as if it exists) are acceptable and can be coded in the inpatient setting, when documented at the
time of discharge.
Thank you,
Yessenia Villalba RN, BSN
CDI Specialist
tiger text
Please use your independent medical judgment in providing your response.
--- NOTE | 2024-02-12 10:15 | PTCARENOTE ---
patient more alert and oriented. cooperative, am care provided. dangled then stood at bedside with assist of 2. wrist restraints removed. bed alarm remains activated. call nieto in hand and patient demonstrates ability to utilize appropriately
--- NOTE | 2024-02-12 10:23 | W.PN.NEPH.PH ---
Today's Communication / Plan
-
HD tomorrow
Assessment/Plan
-
Impression:
Acute GI Bleed
Acute Blood Loss Anemia
Coumadin Coagulopathy
Hyperkalemia
Metabolic Acidosis
ESRD on hemodialysis [facility]
Anemia of ESRD
Hypovolemia secondary to the above
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
Paroxysmal Atrial Fibrillation
Chronic HFpEF
Recent diarrhea-[employer]
History of bilateral pleural effusions status post thoracentesis
History of pericardial effusion status post pericardiocentesis
Coronary artery disease
Essential hypertension
DM2 with multiple microvascular complications
Hyperlipidemia
Spinal stenosis
Anxiety/depression
L radial AVF
Plan:
A/w diarrhea, GIB, hgb 3, missed HDx2
sig GIB, hgb better at 9 post 7 unts of PRBC on admit
Received dialysis yesterday. Patient will be dialyzed tomorrow
off nicardene gtt now he is back on home meds
s/p EGD Severe erosive esophagitis noted on endoscopy localized small erosion with active bleeding found in cardia of stomach
tolerating liquid diet, d/c IVF
on PPI BID, AC on hold
-
-
Date of Service: February 12, 2024
CC / HPI / ROS
-
Chief Complaint:
ESRD
History of Present Illness:
hgb better at 9
BP improving post po meds and off NIcardene gtt
on d5 for hypoglycemia
wt is up , on RA
Review of Systems:
Febrile last night
Currently wrist restraint
no n/v
no pain
Labs
-
Labs:
WBC 18.4 10^3/uL (4.8-10.8) H 02/12/24 05:55
RBC 2.93 10^6/uL (4.70-6.10) L 02/12/24 05:55
Hgb 9.0 g/dL (13.0-18.0) L 02/12/24 05:55
Hct 26.5 % (39.0-52.0) L 02/12/24 05:55
Plt Count 225 10^3/uL (130-400) 02/12/24 05:55
Sodium 138 mmol/L (135-145) 02/12/24 05:55
Potassium 3.7 mmol/L (3.5-5.1) 02/12/24 05:55
Chloride 98 mmol/L (98-107) 02/12/24 05:55
Carbon Dioxide 26 mmol/L (22-30) 02/12/24 05:55
BUN 25 mg/dl (9-20) H 02/12/24 05:55
Creatinine 3.7 mg/dL (0.7-1.3) H 02/12/24 05:55
eGFR 18.04 02/12/24 05:55
Glucose 176 mg/dl (70-99) H 02/12/24 05:55
Calcium 8.1 mg/dl (8.4-10.2) L 02/12/24 05:55
Phosphorus 2.6 mg/dl (2.5-4.5) 02/12/24 05:55
Albumin 2.5 g/dl (3.5-5.0) L 02/12/24 05:55
Physical Exam
-
Vital Signs:
Vital Signs
Temp Pulse Resp BP Pulse Ox
99.4 F 82 19 112/43 95
02/12/24 07:55 02/12/24 09:00 02/12/24 09:00 02/12/24 09:00 02/12/24 09:00
Cardiovascular:: Regular rate and rhythm
Respiratory:: Bilateral: Rales
Lung Excursion:: Normal
Abdomen:: Distended, Nontender and Soft
Extremity Edema:: None: Bilateral:
Alfred Catheter: No
[2024-02-12] MEDS: NOVOLOG FLEXPEN-LOW RESISTANCE 3 UNITS SC (11:14)
[2024-02-12] MEDS: ROCEPHIN 1000 MG IV (11:14)
[2024-02-12] MEDS: STERILE WATER FOR INJECTION 10 ML IV (11:15)
[2024-02-12 11:24] LABS: Glucose - Point of Care 270 mg/dl (70-99)
--- NOTE | 2024-02-12 11:40 | PTCARENOTE ---
patient reassessed. medicated with dilaudid for c/o pain.
--- NOTE | 2024-02-12 12:03 | W.PN.INTV ---
Today's Communication / Plan
Recommendations
Continue Rocephin�continue PPI BD-continue oral BP meds
Can be downgraded
Assessment
-
I saw and evaluated patient this morning. Patient's mentation has significantly improved. He was taken off the Cardene drip around 5 PM yesterday and is currently on oral home meds. He is alert, awake and oriented.
Speech therapy cleared him for clear liquids yesterday. When I saw him this morning, he was tolerating liquids. Will advance to pur�e pending GI clearance. Also, he will not need D5 given initiation of oral intake.
#Anemia due to GIB
Resolved-hemoglobin currently 9 s/p 7 units PRBC (last tx: 02/08)
No further GIB
Continue Rocephin
Continue PPI IV BID
Advance diet to soft food/pur�e if GI is okay
Monitor H&H daily
Acetic fluid analysis negative for SBP
Continue Flagyl for colitis
May consider restarting anticoagulant if GI is ok
#post-EGD PNA
Leukocytosis downtrending
Continue Rocephin
Check WBC daily
BC x2 sent: negative
# Hypertensive crisis
off Cardene since yesterday afternoon
Currently on hydralazine, clonidine, losartan, spironolactone 25, nifedipine
Will increase spironolactone to 50 starting tomorrow
#Acute on chronic kidney injury
Scheduled for HD tomorrow
#Hypoglycemia
Resolved -discontinued dextrose 5% given start of oral intake
#Hypoxia
Resolved�saturating 95% on room air
Overall, patient has significantly improved and can be downgraded.
Subjective Dataa
Subjective Data
Date of Service:
Date of Service: February 12, 2024
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
Subjective:
Patient is awake and alert and oriented. He was tolerating p.o. while I was there. Denied nausea/vomiting. No fevers or GI bleeding. No coughs. Weaned off O2 and not in apparent respiratory distress. Had not episode of low-grade fever last
night but currently no fevers or chills.
Review of Systems
General: Satisfactory Appetite
Cardiopulmonary: Cough (negative)
GI: Nausea (negative), Vomiting (negative) and Melena (negative)
Objective Data
Data Reviewed
Vital Signs / I&O / Oxygen:
Vital Signs
Temp Pulse Resp BP Pulse Ox
98.6 F 78 22 105/51 94
02/12/24 11:23 02/12/24 11:00 02/12/24 11:00 02/12/24 11:00 02/12/24 11:00
Intake and Output
02/11/24 02/12/24 02/13/24
06:59 06:59 06:59
Intake Total 3278.3 / 3405.0 2434.3 / 2459.3 1035 / 1035
Balance 3278.3 / 3405.0 2434.3 / 2459.3 1035 / 1035
SaO2 94
Nasal Cannula flow liters per 1
minute
Physical Exam
General: Comfortable and Fever (Had an episode of low-grade fever last night but currently does not have fever)
HEENT: Normocephalic, Anicteric and Moist Mucous Membranes
Cardiovascular: S1-S2, Regular Rhythm and Peripheral Edema (1+ b/l LE edema)
Respiratory: Crackles (Improved crackles, right more than left), Non-Labored Respirations (No apparent respiratory distress. Weaned off O2. Saturating 94 to 95% on room air) and Other
GI: Soft, Distended, Non Tender and Normal Bowel Sounds
Neurology: Awake, Oriented (to place) and AO x 3
Skin: Warm and Dry
Labs/Micro/Reports
Lab Data
02/12/24 05:55
02/12/24 05:55
Laboratory Results
02/12/24
05:55
PT 16.7 H
INR 1.34
Microbiology
02/10/24 18:33 Peritoneal Fluid Body Fluid Culture - Preliminary
No Growth After 18-24 Hours
02/10/24 18:33 Peritoneal Fluid Gram Stain - Preliminary
02/09/24 15:42 Blood/Venous Blood Culture - Preliminary
No Growth in 48 hours- Final report to follow
--- NOTE | 2024-02-12 14:52 | CM ---
CM following re: discharge planning.
Reviewed pt's chart, met with pt. Per Rounds meeting, patient yelling, oriented to person and place, restraints on wrist, continue supportive care.
[facility] offered a bed earlier and today they denied a referral due to pt's owns money from previous stay there.
CM discussed it with pt's sister and she is requested [facility] as number one choice and [facility] as number 2 choice.
A referral made to [facility] SNF and [facility].
D/C plan: preferred and accepted SNF.
CM will follow to assist pt with discharge to a preferred SNF with HD treatment onsite
--- NOTE | 2024-02-12 15:45 | PTCARENOTE ---
Received pt OOB in the chair. He was assisted to a different position in the chair. Left fa AV fistula +bruit, +thrill. Right #18g protective catheter flushed and patent. Right neck dressing partially intact. Knee-hi SCD's intact. L/E edema left
>right. Large round abdomen, +bsx4. C/O hunger and thirst. He was informed that he is on a 1200ml/day fluid restriction and that he is already at that limit. It was suggested that he take only ice chips in very small amounts for the remainder of the
day if possible. He was also informed that I was notifying the physician regarding his BP and antihypertensives that are due at this time. He verbalized his understanding. Safe environment maintained. Chair alarm intact.
--- NOTE | 2024-02-12 16:32 | TRANSFER ---
Report called to [facility] for room 2125. BP 104/56 and due for clonidine and hydralazine. Clarifying with Dr. Gamble if he wants me to administer them.
--- NOTE | 2024-02-12 16:44 | PTCARENOTE ---
Per Dr. Gamble clonidine will be administered as ordered, and will hold Hydralazine.
[2024-02-12] MEDS: APRESOLINE PO ×2 (16:48→22:17)
[2024-02-12 17:14] LABS: Glucose - Point of Care 226 mg/dl (70-99)
[2024-02-12] MEDS: HEPARIN 5000 UNITS SC (19:43)
[2024-02-12 21:52] LABS: Glucose - Point of Care 180 mg/dl (70-99)
[2024-02-12] MEDS: CATAPRES PO (22:17)
[2024-02-12] MEDS: LIPITOR 80 MG PO (22:18)
[2024-02-12] MEDS: ProAmatine 10 MG PO (22:24)
[2024-02-12] MEDS: DILAUDID 0.25 MG IV (23:34)
[2024-02-13] VITALS (9 sets, daily range): BP systolic 103–161; BP diastolic 58–79; BMI 23.7
[2024-02-13] MEDS: DILAUDID 0.5 MG IV ×3 (02:37→23:33)
[2024-02-13 07:35] LABS: Glucose - Point of Care 141 mg/dl (70-99)
[2024-02-13] MEDS: NOVOLOG FLEXPEN-LOW RESISTANCE SC ×2 (08:00→12:24)
[2024-02-13] MEDS: ZOLOFT 100 MG PO (08:01)
[2024-02-13] MEDS: APRESOLINE PO (08:04)
[2024-02-13] MEDS: CATAPRES PO (08:04)
[2024-02-13] MEDS: ALDACTONE PO (08:04)
[2024-02-13] MEDS: COZAAR PO (08:06)
[2024-02-13] MEDS: NSS (PRESERVATIVE FREE) 10 ML IV ×2 (08:07→20:22)
[2024-02-13] MEDS: PROCARDIA XL (EXTENDED RELEASE) PO (08:07)
[2024-02-13] MEDS: PROTONIX IV 40 MG IV ×2 (08:07→20:22)
[2024-02-13] MEDS: HEPARIN SC (08:08)
--- NOTE | 2024-02-13 08:13 | W.PN.GI.CBS2 ---
Today's Communication / Plan
-
Plan:
Plan:
-Currently on pantoprazole 40 mg IV twice daily. Hemoglobin seems to be stable, no overt bleeding.
Continue to monitor H&H and transfuse if needed.
On full liquid diet-one episoide of vomitng today, would not advance diet yet. 1200 mL fluid restriction. Reviewed speech recommendation, pur�ed solids and thin liquids suggested.
Unclear etiology for this GI bleeding but cannot rule out Ebenezer's lesion, no evidence of definite variceal bleeding.
-Abdominal ultrasound showing nodular contour of the liver but CT scan showed normal liver morphology.
Patient denies any significant alcohol use and reports last drink 5 years ago.
Reviewing previous records, patient had history of SBP in October 2023 and treated .
?History of hepatitis B infection status posttreatment. Unclear. This was noted in one of the records in October 2023. His hepatitis B surface antigen is negative and antibody positive.He reports being treated at [facility] 2 yrs ago,cannot recall name of
doctor who treated him. Will need to check Hep B DNA.
He will need outpatient GI follow-up.
h/o SBP previously and recent para without SBP,currently on Abx
Might need para again thursday for ascities
-Leukocytosis without fever
Possible aspiration during the procedure, currently on antibiotics.
-CT A/P- 02/10/2024: showed colitis from cecum to ascending colon: added flagyl and planning finish a 5-7 day course .
Reports colonoscopy being done at [place] in April 2023. No records available at this time.
-Will follow up .
Assessment / Plan
-
Impression: The patient is a 58-year-old male with a PMH of significant for A-fib (on Coumadin), CAD, ERSD on HD on , iron deficiency anemia, heart failure with preserved ejection fraction, history of pleural effusions with
pericardiocentesis, HT, spinal stenosis, GERD, ?Dunlap's Esophagus, prior C-diff, DM, CHF, migraines, gastritis, constipation, new onset ascites with recent outpatient paracentesis, cirrhosis on imagining in December. The patient presented to
the ER on 02.08.24 complaining of N/V/D. He reported having dark stools and missed his and Thursday HD sessions. He then had N/V with dark bloody vomiting. GI was consulted to evaluate the patient. His Hgb on presentation was 3.1 and INR
> 8.0 .Previous Hgb on 01/20/24 was 8.6. Patient was started on Protonix bolus and drip Octreotide drip. He was given KCentra and Vitamin K. He has been transfused 7 units of RBC since the admission. GI team saw him in August 2023 during
hospitalization for abdominal pain. Prior to that he had an admission in July with EGD at [place] with esophagitis. He reportedly had EGD/Colonoscopy at [facility] prior to the [place] admission and was told he had Barretts esophagus but no
obvious source of bleeding and was recommended to have Video capsule study. Information obtained from records as patient is not cooperative enough to provide any information. He underwent to EGD on 02/09/24 and had a paracentesis 02/10/24.
-EGD on 02/09/24-
Findings:
Mildly severe esophagitis was found in the lower third of the esophagus.
Grade I varices were found in the lower third of the esophagus. They were small in size.
A single localized small erosion with active bleeding was found in the
cardia. It was not clear if this erosion was from scope trauma or
possibly a Ebenezer's type erosion. No obvious gastric varices seen. For
hemostasis, one hemostatic clip was successfully placed (MR conditional).
Hematin (altered blood/eifycp-aftahj-ubes material) was found in the
stomach. The examined duodenum was normal.
Acute GI Bleed -->Severe with Hgb of 3.1 at admission. Prior hx of esophagitis (July 2023 at [place], prior Hx GIB/anemia at [facility] with no bleeding E/C identified with recommended VCE recommended in past)
Acute blood loss anemia on hx of chronic anemia. Baseline Hgb in the 8 range.
Coagulopathy INR 1.44 this morning
ESRD on HD -> //Thu--> last HD last one was on 02/11/24 and previous was on 02/09/24 (missed 02/03 and 02/05)
Cirrhosis -> imaging (12/2023)
US Abdominal Doppler: Patent hepatic vasculature with appropriate directional flow, as described above. Moderate diffuse abdominal ascites. No evidence for acute cholecystitis. Hepatic cirrhosis. No focal hepatic lesions.
Ascites- Paracentesis last on 02/10/24: Large-volume paracentesis (diagnostic + therapeutic) and was given albumin: fluid WBC 123 neg SBP, fluid albumin <1 and serum albumin 2.3. SAAG >1.3 c/w portal HTN
HFpEF
PAF
Barretts esophagus
Plan:
-Currently on pantoprazole 40 mg IV twice daily. Hemoglobin seems to be stable, no overt bleeding.
Continue to monitor H&H and transfuse if needed.
On full liquid diet-one episoide of vomitng today, would not advance diet yet. 1200 mL fluid restriction. Reviewed speech recommendation, pur�ed solids and thin liquids suggested.
Unclear etiology for this GI bleeding but cannot rule out Ebenezer's lesion, no evidence of definite variceal bleeding.
-Abdominal ultrasound showing nodular contour of the liver but CT scan showed normal liver morphology.
Patient denies any significant alcohol use and reports last drink 5 years ago.
Reviewing previous records, patient had history of SBP in October 2023 and treated .
?History of hepatitis B infection status posttreatment. Unclear. This was noted in one of the records in October 2023. His hepatitis B surface antigen is negative and antibody positive.He reports being treated at [facility] 2 yrs ago,cannot recall name of
doctor who treated him. Will need to check Hep B DNA.
He will need outpatient GI follow-up.
h/o SBP previously and recent para without SBP,currently on Abx
Might need para again thursday for ascities
-Leukocytosis without fever
Possible aspiration during the procedure, currently on antibiotics.
-CT A/P- 02/10/2024: showed colitis from cecum to ascending colon: added flagyl and planning finish a 5-7 day course .
Reports colonoscopy being done at [place] in April 2023. No records available at this time.
-Will follow up .
Subjective
Subjective
Date of Service: February 13, 2024
No fevers or chills. No bowel movements yet. The patient reports having 1 episode of vomiting this morning, nothing since. No bowel movement yet
Objective
Data Reviewed
Laboratory Data:
Laboratory Results
PT 16.7 Sec (11.4-14.6) H 02/12/24 05:55
INR 1.34 02/12/24 05:55
APTT > 200 Sec (23.4-35.0) H* 02/08/24 05:01
Phosphorus 2.6 mg/dl (2.5-4.5) 02/12/24 05:55
Magnesium 1.7 mg/dl (1.6-2.3) 02/12/24 05:55
Total Bilirubin 0.7 mg/dl (0.2-1.3) 02/12/24 05:55
AST 21 U/L (17-59) 02/12/24 05:55
ALT 14 U/L (0-50) 02/12/24 05:55
Alkaline Phosphatase 183 U/L (38-126) H 02/12/24 05:55
Vital Signs and I&O:
Vital Signs
Temp Pulse Resp BP Pulse Ox
97.5 F 68 16 138/69 98
02/13/24 07:53 02/13/24 07:53 02/13/24 07:53 02/13/24 07:53 02/13/24 07:53
I&O
02/12/24 02/13/24 02/14/24
06:59 06:59 06:59
Intake Total 2434.3 / 2459.3 1455 / 1455
Balance 2434.3 / 2458.3 1454 / 1454
Physical Exam
Physical Exam
GI: Soft, Distended and Non Tender
[2024-02-13 08:26] LABS: % Basophils 0.3 % (0-2); % Eosinophils 12.7 % (0-6); % Immature Granulocytes 0.5 % (0-0.5); % Lymphocytes 5.9 % (20.5-51.1); % Monocytes 6.1 % (1.7-9.3); % Neutrophils 74.5 % (42.2-75.2); Absolute Eosinophils 1.6 10^3/uL (0-0.7); Absolute Immature Granulocytes 0.1 10^3/uL (0-0.05); Absolute Lymphocytes 0.7 10^3/uL (1.2-3.4); Absolute Monocytes 0.8 10^3/uL (0.1-0.6); Absolute Neutrophils 9.1 10^3/uL (1.4-6.5); Hematocrit 27.1 % (39.0-52.0); Hemoglobin 9.3 g/dL (13.0-18.0); Mean Corp Hgb Conc. 34.3 g/dL (33.0-37.0); Mean Corpuscular Hgb 31.1 pg (27.0-31.0); Mean Corpuscular Volume 90.6 fL (80.0-94.0); Nucleated Red Blood Cells % 0.2 % (-); Platelet Count 215 10^3/uL (130-400); Red Blood Cell Count 2.99 10^6/uL (4.70-6.10); Red Cell Dist. Width 17.3 % (11.5-14.5); White Blood Cell Count 12.3 10^3/uL (4.8-10.8)
--- NOTE | 2024-02-13 08:48 | W.PN.HOSP.TC ---
Today's Communication/Plan
-
PPI. Hemodialysis. Antibiotics.
Assessment / Plan
Assessment / Plan
Physical exam:
General: Acutely ill
HEENT: Normocephalic, Atraumatic and Moist Mucous Membranes
Respiratory: Clear to Auscultation; Negative Wheezes, Rales or Rhonchi
Cardiac: Regular Rhythm and S1/S2
GI: Soft, tender epigastric area and Nondistended
Musculoskeletal: Bilateral lower extremity edema. No Clubbing, No Cyanosis
Neuro: Awake, Alert and Oriented, no gross neuro deficits
Psych: Calm
EGD:
Impression: - Mildly severe esophagitis.
- Grade I esophageal varices. No stigmata of bleeding
- Gastric erosion in the cardia with active bleeding.
Unclear if this was from endoscope trauma. Clip (MR
conditional) was placed. No gastric varices seen.
- Hematin (altered blood/tgsmoz-eklgez-cbed material)
in the stomach.
- Normal examined duodenum.
CT head:
No acute intracranial abnormality noted.
CT abd/pelvis:
1. There is increased bibasilar consolidations with new surrounding groundglass opacities and small nodular consolidations in the posterior upper lobes suspicious for multifocal pneumonia.
2. There is apparent wall thickening of the cecum and ascending colon favored to represent colitis
3. Cholelithiasis.
4. Small volume ascites.
5. Extensive atherosclerotic indications.
A/P:
Acute GI bleed:
Findings of bleeding per upper endoscopy in the setting of warfarin use.
On full liquid diet per GI
Still having nausea and vomiting so we will defer advance diet to GI
Appreciated GI consult and follow-up
Off PPI and octreotide drip
Continue IV PPI twice a day
On antiemetics as needed
Monitor hemoglobin--> 9.3 today
Sepsis due to aspiration pneumonia:
Continue IV Rocephin and oral metronidazole
WBC 19.7-->[address] chest abd pelvis and cxr reviewed
Blood cultures no growth
Paracentesis done and essentially ruled out SBP. Also, therapeutic paracentesis since over 6 L out and received IV albumin.
SAAG more than 1.3 consistent with portal hypertension.
MRSA colonizer.
Hypertensive urgency/hypertension:
Improved
Off Cardene drip
On his home oral regimen with holding parameters--> he is on clonidine 0.2 mg 3 times daily, spironolactone 50 mg p.o. daily, nifedipine 30 mg p.o. daily, losartan 50 mg p.o. daily, and hydralazine 75 mg p.o. 3 times daily.
Hypotension:
Required midodrine on 02/11 evening
Acute blood loss anemia with hemorrhagic shock:
Improved
Status post 7 units blood transfusions
Threshold lower in the setting of concerns for variceal bleed and end-stage renal disease/chf to avoid hypervolemia
Initial hemoglobin 3.1 upon admission
Hemoglobin 9.3 today
Toxic metabolic encephalopathy:
Improving
Off Precedex drip
Continue monitor mental status
Coagulopathy:
Status post Kcentra and vitamin K
INR over 8--> down to 1.34
Cirrhosis:
GI on board
Monitor MELD score every so often
Elevated troponin:
Likely type II DE with demand ischemia
Atypical chest pain:
Received pain medication
Troponin trended down appropriately
End-stage renal disease on hemodialysis:
Hemodialysis need per nephrology
Acute hypoxic respiratory failure:
Oxygen supplementation as needed
Titrate oxygen when appropriate
Paroxysmal atrial fibrillation:
Hold anticoagulation until cleared by GI
Cardiac monitoring
Not on rate control agents as outpatient
Chronic HFpEF:
Manage volume with dialysis
Diabetes mellitus:
Insulin as needed
s/p D5 for hypoglycemia and he had a few episodes
FAMILY [employer]ER diabetic consult--> recommended corrective insulin sliding scale at home if blood sugar less than 180 and possibly start low-dose before meals once diet has been advanced.
Monitor blood sugars
DVT prophylaxis:
SCDs
CODE STATUS:
Full code
Total time spent on today's encounter was 52 minutes which included time spent in counseling the patient/family regarding diagnosis and treatment plan as listed above, goals of care, and symptom management. Case was discussed with nursing staff,
specialists, and care coordinators/case management. All labs and imaging personally reviewed by me. Remainder the time spent in detailed review of previous records, lab data, imaging, and other medical provider documentation.
Anticipated Discharge: > 48 hours
Subjective/Interval History
-
Date of Service: February 13, 2024
Patient still having nausea and vomiting. Blood pressure low last evening but started to go up today. Denies chest pain or shortness of breath. Afebrile
Objective Data
-
Labs:
Laboratory Results
02/13/24
07:44
WBC 12.3 H
Hgb 9.3 L
Hct 27.1 L
Plt Count 215
Sodium Pending
Potassium Pending
Chloride Pending
Carbon Dioxide Pending
BUN Pending
Creatinine Pending
Glucose Pending
Calcium Pending
Vital Signs:
Vital Signs
Temp Pulse Resp BP Pulse Ox
97.5 F 68 16 138/69 98
02/13/24 07:53 02/13/24 07:53 02/13/24 07:53 02/13/24 07:53 02/13/24 07:53
I&O
02/12/24 02/13/24 02/14/24
06:59 06:59 06:59
Intake Total 2434.3 / 2459.3 1455 / 1455
Balance 2434.3 / 2459.3 1455 / 1455
[2024-02-13] MEDS: COMPAZINE 10 MG IV (08:50)
[2024-02-13] MEDS: FLAGYL PO (09:00)
[2024-02-13] MEDS: RETACRIT 10000 UNITS IV (09:15)
--- NOTE | 2024-02-13 09:15 | W.PN.NEPH.HD ---
Assessment
-
pt seen during HD
vitals stable
UF as tolerates, noted BP low last night s/p midodrine
Nifedipine dose lowered-which was newly added this admit-likely can hold if needed
hydralazine and ARB doses also reduced from today
cont aldactone
maintain renal diet and FR
AVF functions well
Progress Note - Hemodialysis
-
Date of Service: February 13, 2024
Duration: 30 minutes and 3 hours
Potassium Bath: 2
Calcium Bath: 2.5
Opti-Dialyzer: 160
Ultrafiltration: Other (1.5-2kg)
Blood Flow: 400
Dialysate Flow: 600
Heparin: no
EPO: [id number]
[2024-02-13 09:47] LABS: Blood Urea Nitrogen 32 mg/dl (9-20); Calcium 7.9 mg/dl (8.4-10.2); Carbon Dioxide 25 mmol/L (22-30); Chloride 97 mmol/L (98-107); Estimated Creatinine Clearance 19 ml/min; Glucose 133 mg/dl (70-99); Potassium 3.9 mmol/L (3.5-5.1); Sodium 134 mmol/L (135-145); eGFR 14.65
[2024-02-13] MEDS: HEPARIN 5000 UNITS SC ×2 (12:20→20:20)
[2024-02-13] MEDS: B COMPLEX w/VITAMIN C 1 CAPLET PO (12:21)
[2024-02-13 12:24] LABS: Glucose - Point of Care 154 mg/dl (70-99)
[2024-02-13] MEDS: STERILE WATER FOR INJECTION 10 ML IV (12:25)
[2024-02-13] MEDS: ROCEPHIN 1000 MG IV (12:26)
[2024-02-13 16:44] LABS: Glucose - Point of Care 228 mg/dl (70-99)
[2024-02-13] MEDS: APRESOLINE 75 MG PO ×2 (17:00→22:09)
[2024-02-13] MEDS: CATAPRES 0.2 MG PO ×2 (17:00→22:09)
[2024-02-13] MEDS: FLAGYL 500 MG PO ×2 (17:00→23:35)
[2024-02-13] MEDS: NOVOLOG FLEXPEN-LOW RESISTANCE 2 UNITS SC (17:13)
[2024-02-13 21:29] LABS: Glucose - Point of Care 192 mg/dl (70-99)
[2024-02-13] MEDS: LIPITOR 80 MG PO (22:09)
[2024-02-14 03:40] VITALS: BP 158/69
[2024-02-14 05:46] LABS: % Basophils 0.7 % (0-2); % Lymphocytes 9.9 % (20.5-51.1); % Monocytes 10.2 % (1.7-9.3); % Neutrophils 66.2 % (42.2-75.2); Absolute Basophils 0.1 10^3/uL (0-0.2); Absolute Eosinophils 1.1 10^3/uL (0-0.7); Absolute Immature Granulocytes 0.1 10^3/uL (0-0.05); Absolute Lymphocytes 0.9 10^3/uL (1.2-3.4); Absolute Monocytes 0.9 10^3/uL (0.1-0.6); Absolute Neutrophils 5.9 10^3/uL (1.4-6.5); Hematocrit 28.5 % (39.0-52.0); Hemoglobin 9.6 g/dL (13.0-18.0); Mean Corp Hgb Conc. 33.7 g/dL (33.0-37.0); Mean Corpuscular Hgb 30.9 pg (27.0-31.0); Mean Corpuscular Volume 91.6 fL (80.0-94.0); Mean Platelet Volume 10.6 fL (7.4-10.4); Nucleated Red Blood Cells % 0 % (-); Platelet Count 160 10^3/uL (130-400); Red Blood Cell Count 3.11 10^6/uL (4.70-6.10); Red Cell Dist. Width 17.7 % (11.5-14.5); White Blood Cell Count 8.9 10^3/uL (4.8-10.8)
[2024-02-14 06:00] VITALS: BMI 23.5
[2024-02-14 06:04] LABS: Blood Urea Nitrogen 21 mg/dl (9-20); Carbon Dioxide 28 mmol/L (22-30); Chloride 97 mmol/L (98-107); Estimated Creatinine Clearance 23 ml/min; Glucose 138 mg/dl (70-99); Potassium 4.1 mmol/L (3.5-5.1); Sodium 135 mmol/L (135-145); eGFR 18.04
[2024-02-14 07:20] VITALS: BP 169/88
[2024-02-14 07:30] LABS: Glucose - Point of Care 121 mg/dl (70-99)
[2024-02-14] MEDS: FLAGYL 500 MG PO ×3 (09:07→22:17)
[2024-02-14] MEDS: NOVOLOG FLEXPEN-LOW RESISTANCE SC (09:07)
[2024-02-14] MEDS: ZOLOFT 100 MG PO (09:08)
[2024-02-14] MEDS: NSS (PRESERVATIVE FREE) 10 ML IV ×2 (09:08→20:04)
[2024-02-14] MEDS: TYLENOL 500 MG PO (09:09)
[2024-02-14] MEDS: PROCARDIA XL (EXTENDED RELEASE) 30 MG PO (09:09)
--- NOTE | 2024-02-14 09:09 | W.PN.HOSP.TC ---
Today's Communication/Plan
-
Antibiotics. PPI.
Assessment / Plan
Assessment / Plan
Physical exam:
General: Acutely ill
HEENT: Normocephalic, Atraumatic and Moist Mucous Membranes
Respiratory: Clear to Auscultation; Negative Wheezes, Rales or Rhonchi
Cardiac: Regular Rhythm and S1/S2
GI: Soft, tender epigastric area and Nondistended
Musculoskeletal: Bilateral lower extremity edema. No Clubbing, No Cyanosis
Neuro: Awake, Alert and Oriented, no gross neuro deficits
Psych: Calm
EGD:
Impression: - Mildly severe esophagitis.
- Grade I esophageal varices. No stigmata of bleeding
- Gastric erosion in the cardia with active bleeding.
Unclear if this was from endoscope trauma. Clip (MR
conditional) was placed. No gastric varices seen.
- Hematin (altered blood/lwmqgt-kjdudt-kawi material)
in the stomach.
- Normal examined duodenum.
CT head:
No acute intracranial abnormality noted.
CT abd/pelvis:
1. There is increased bibasilar consolidations with new surrounding groundglass opacities and small nodular consolidations in the posterior upper lobes suspicious for multifocal pneumonia.
2. There is apparent wall thickening of the cecum and ascending colon favored to represent colitis
3. Cholelithiasis.
4. Small volume ascites.
5. Extensive atherosclerotic indications.
A/P:
Acute GI bleed:
Improving
Findings of bleeding per upper endoscopy in the setting of warfarin use.
On full liquid diet per GI
May be able to advance diet either later this evening or tomorrow
Appreciated GI consult and follow-up
Off PPI and octreotide drip
Continue IV PPI twice a day
On antiemetics as needed
Monitor hemoglobin--> 9.6 today
Discussed with family at bedside today on 02/13 (his cousin who he lives with) -he would like to talk to vocational case manager about discharge disposition. Informed RN about his request.
PT OT eval
ict project manager for discharge disposition
Sepsis due to aspiration pneumonia:
Continue IV Rocephin and might be able to switch to oral over the next 24 hours and continue oral metronidazole.
WBC 19.7-->8.[address] chest abd pelvis and cxr reviewed
Blood cultures no growth
Paracentesis done and essentially ruled out SBP. Also, therapeutic paracentesis since over 6 L out and received IV albumin.
SAAG more than 1.3 consistent with portal hypertension.
MRSA colonizer.
Hypertensive urgency/hypertension:
Improved
Off Cardene drip
On his home oral regimen with holding parameters--> he is on clonidine 0.2 mg 3 times daily, spironolactone 50 mg p.o. daily, nifedipine 30 mg p.o. daily, losartan 50 mg p.o. daily, and hydralazine 75 mg p.o. 3 times daily.
Hypotension:
Improved
Required midodrine on 02/11 evening but none since then
Acute blood loss anemia with hemorrhagic shock:
Improved
Status post 7 units blood transfusions
Threshold lower in the setting of concerns for variceal bleed and end-stage renal disease/chf to avoid hypervolemia
Initial hemoglobin 3.1 upon admission
Hemoglobin 9.6 today
Toxic metabolic encephalopathy:
Improved
Off Precedex drip
Continue monitor mental status
Coagulopathy:
Status post Kcentra and vitamin K
INR over 8--> down to 1.34
Cirrhosis:
GI on board
Monitor MELD score every so often
Elevated troponin:
Likely type II NH with demand ischemia
Atypical chest pain:
Received pain medication
Troponin trended down appropriately
End-stage renal disease on hemodialysis:
Hemodialysis need per nephrology
Acute hypoxic respiratory failure:
Oxygen supplementation as needed
Titrate oxygen when appropriate
Paroxysmal atrial fibrillation:
Hold anticoagulation until cleared by GI
Cardiac monitoring
Not on rate control agents as outpatient
Chronic HFpEF:
Manage volume with dialysis
Diabetes mellitus:
Insulin as needed
s/p D5 for hypoglycemia and he had a few episodes
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
Monitor blood sugars
DVT prophylaxis:
SCDs
CODE STATUS:
Full code
Anticipated Discharge: 24 - 48 hours
Subjective/Interval History
-
Date of Service: February 14, 2024
Patient feels better today, less nausea and vomiting. No chest pain or shortness of breath. Alert. Afebrile
Objective Data
-
Labs:
Laboratory Results
02/14/24
05:00
WBC 8.9
Hgb 9.6 L
Hct 28.5 L
Plt Count 160 D
Sodium 135
Potassium 4.1
Chloride 97 L
Carbon Dioxide 28
BUN 21 H
Creatinine 3.7 H
Glucose 138 H
Calcium 8.0 L
Vital Signs:
Vital Signs
Temp Pulse Resp BP Pulse Ox
98.7 F 78 20 169/88 98
02/14/24 07:20 02/14/24 07:20 02/14/24 07:20 02/14/24 07:20 02/14/24 07:20
I&O
02/13/24 02/14/24 02/15/24
06:59 06:59 06:59
Intake Total 1455 / 1455 1320 / 1320
Balance 1455 / 1455 1320 / 1320
[2024-02-14] MEDS: ALDACTONE 50 MG PO (09:10)
[2024-02-14] MEDS: HEPARIN 5000 UNITS SC ×2 (09:11→20:04)
[2024-02-14] MEDS: B COMPLEX w/VITAMIN C 1 CAPLET PO (09:11)
[2024-02-14] MEDS: CATAPRES 0.2 MG PO ×3 (09:11→22:12)
[2024-02-14] MEDS: COZAAR 50 MG PO (09:11)
[2024-02-14] MEDS: APRESOLINE 75 MG PO (09:12)
[2024-02-14] MEDS: PROTONIX IV 40 MG IV ×2 (09:12→20:04)
[2024-02-14] MEDS: DILAUDID 0.5 MG IV ×2 (09:49→22:12)
[2024-02-14 11:32] LABS: Glucose - Point of Care 185 mg/dl (70-99)
[2024-02-14 11:41] VITALS: BP 172/75
[2024-02-14] MEDS: TRANDATE 10 MG IV (11:51)
[2024-02-14] MEDS: NOVOLOG FLEXPEN-LOW RESISTANCE 1 UNITS SC (11:51)
[2024-02-14] MEDS: ROCEPHIN 1000 MG IV (11:53)
[2024-02-14] MEDS: STERILE WATER FOR INJECTION 10 ML IV (11:53)
--- NOTE | 2024-02-14 12:27 | W.PN.NEPH.PH ---
Today's Communication / Plan
-
monitor BP, increase doses of meds if high
Assessment/Plan
-
Impression:
Acute GI Bleed
Acute Blood Loss Anemia
Coumadin Coagulopathy
Hyperkalemia
Metabolic Acidosis
ESRD on hemodialysis TTS [facility]
Anemia of ESRD
Hypovolemia secondary to the above
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
Paroxysmal Atrial Fibrillation
Chronic HFpEF
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
History of bilateral pleural effusions status post thoracentesis
History of pericardial effusion status post pericardiocentesis
Coronary artery disease
Essential hypertension
DM2 with multiple microvascular complications
Hyperlipidemia
Spinal stenosis
Anxiety/depression
L radial AVF
Plan:
A/w GIB, hgb 3, missed HD
sig GIB, hgb stable at 9 range, post 7 unts of PRBC on admit
Received dialysis yesterday. Patient will be dialyzed TTS schedule
BP were low yesterday, meds dose lowered, may need to readjust to home dose if elevated persistently
s/p EGD Severe erosive esophagitis noted on endoscopy localized small erosion with active bleeding found in cardia of stomach
on PPI BID, AC on hold
-
-
Date of Service: February 14, 2024
CC / HPI / ROS
-
Chief Complaint:
ESRD
History of Present Illness:
hgb stable at 9 range
BP was low yesterday, now increasing trend
no fever and on RA
Review of Systems:
no n/v
no pain
no cp or sob
Labs
-
Labs:
WBC 8.9 10^3/uL (4.8-10.8) 02/14/24 05:00
RBC 3.11 10^6/uL (4.70-6.10) L 02/14/24 05:00
Hgb 9.6 g/dL (13.0-18.0) L 02/14/24 05:00
Hct 28.5 % (39.0-52.0) L 02/14/24 05:00
Plt Count 160 10^3/uL (130-400) D 02/14/24 05:00
Sodium 135 mmol/L (135-145) 02/14/24 05:00
Potassium 4.1 mmol/L (3.5-5.1) 02/14/24 05:00
Chloride 97 mmol/L (98-107) L 02/14/24 05:00
Carbon Dioxide 28 mmol/L (22-30) 02/14/24 05:00
BUN 21 mg/dl (9-20) H 02/14/24 05:00
Creatinine 3.7 mg/dL (0.7-1.3) H 02/14/24 05:00
eGFR 18.04 02/14/24 05:00
Glucose 138 mg/dl (70-99) H 02/14/24 05:00
Calcium 8.0 mg/dl (8.4-10.2) L 02/14/24 05:00
Phosphorus 2.6 mg/dl (2.5-4.5) 02/12/24 05:55
Albumin 2.5 g/dl (3.5-5.0) L 02/12/24 05:55
Physical Exam
-
Vital Signs:
Vital Signs
Temp Pulse Resp BP Pulse Ox
98.1 F 72 20 172/75 99
02/14/24 11:41 02/14/24 11:51 02/14/24 11:41 02/14/24 11:51 02/14/24 11:41
Cardiovascular:: Regular rate and rhythm
Respiratory:: Bilateral: Coarse
Lung Excursion:: Normal
Abdomen:: Distended, Nontender and Soft
Extremity Edema:: None: Bilateral:
Alfred Catheter: No
--- NOTE | 2024-02-14 13:23 | W.PN.GI.CBS2 ---
Today's Communication / Plan
-
Plan:
-Currently on pantoprazole 40 mg IV twice daily. Hemoglobin seems to be stable, no overt bleeding.
Continue to monitor H&H and transfuse if needed.
On full liquid diet-doing well. 1200 mL fluid restriction. Reviewed speech recommendation, pur�ed solids and thin liquids suggested. Will ask speech to come by and see if he can be on a more solid diet.
Unclear etiology for this GI bleeding but cannot rule out Ebenezer's lesion, no evidence of definite variceal bleeding.
-Abdominal ultrasound showing nodular contour of the liver but CT scan showed normal liver morphology.
Patient denies any significant alcohol use and reports last drink 5 years ago.
Reviewing previous records, patient had history of SBP in October 2023 and treated .
?History of hepatitis B infection status posttreatment. Unclear. This was noted in one of the records in October 2023. His hepatitis B surface antigen is negative and antibody positive.He reports [facility],cannot recall name of
doctor who treated him. Will need to check Hep B DNA.
He will need outpatient GI follow-up.
h/o SBP previously and recent para without SBP,currently on Abx
Might need para again thursday for ascities
-Leukocytosis without fever
Possible aspiration during the procedure, currently on antibiotics.
-CT A/P- 02/10/2024: showed colitis from cecum to ascending colon: added flagyl and planning finish a 5-7 day course .
Reports colonoscopy being done at [place] in April 2023. No records available at this time.
-Will follow up .
Assessment / Plan
-
Impression: The patient is a 58-year-old male with a PMH of significant for A-fib (on Coumadin), CAD, ERSD on HD on , iron deficiency anemia, heart failure with preserved ejection fraction, history of pleural effusions with
pericardiocentesis, HT, spinal stenosis, GERD, ?Dunlap's Esophagus, prior C-diff, DM, CHF, migraines, gastritis, constipation, new onset ascites with recent outpatient paracentesis, cirrhosis on imagining in December. The patient presented to
the ER on 02.08.24 complaining of N/V/D. He reported having dark stools and missed his and Thursday HD sessions. He then had N/V with dark bloody vomiting. GI was consulted to evaluate the patient. His Hgb on presentation was 3.1 and INR
> 8.0 .Previous Hgb on 01/20/24 was 8.6. Patient was started on Protonix bolus and drip Octreotide drip. He was given KCentra and Vitamin K. He has been transfused 7 units of RBC since the admission. GI team saw him in August 2023 during
hospitalization for abdominal pain. Prior to that he had an admission in July with EGD at [facility] with esophagitis. He reportedly had EGD/Colonoscopy at [facility] prior to the [place] admission and was told he had Barretts esophagus but no
obvious source of bleeding and was recommended to have Video capsule study. Information obtained from records as patient is not cooperative enough to provide any information. He underwent to EGD on 02/09/24 and had a paracentesis 02/10/24.
-EGD on 02/09/24-
Findings:
Mildly severe esophagitis was found in the lower third of the esophagus.
Grade I varices were found in the lower third of the esophagus. They were small in size.
A single localized small erosion with active bleeding was found in the
cardia. It was not clear if this erosion was from scope trauma or
possibly a Ebenezer's type erosion. No obvious gastric varices seen. For
hemostasis, one hemostatic clip was successfully placed (MR conditional).
Hematin (altered blood/uospop-ffwkaa-iesl material) was found in the
stomach. The examined duodenum was normal.
Acute GI Bleed -->Severe with Hgb of 3.1 at admission. Prior hx of esophagitis (July 2023 at [place], prior Hx GIB/anemia at [facility] with no bleeding E/C identified with recommended VCE recommended in past)
Acute blood loss anemia on hx of chronic anemia. Baseline Hgb in the 8 range.
Coagulopathy INR 1.44 this morning
ESRD on HD -> //Thu--> last HD last one was on 02/11/24 and previous was on 02/09/24 (missed 02/03 and 02/05)
Cirrhosis -> imaging (12/2023)
US Abdominal Doppler: Patent hepatic vasculature with appropriate directional flow, as described above. Moderate diffuse abdominal ascites. No evidence for acute cholecystitis. Hepatic cirrhosis. No focal hepatic lesions.
Ascites- Paracentesis last on 02/10/24: Large-volume paracentesis (diagnostic + therapeutic) and was given albumin: fluid WBC 123 neg SBP, fluid albumin <1 and serum albumin 2.3. SAAG >1.3 c/w portal HTN
HFpEF
PAF
Barretts esophagus
Plan:
-Currently on pantoprazole 40 mg IV twice daily. Hemoglobin seems to be stable, no overt bleeding.
Continue to monitor H&H and transfuse if needed.
On full liquid diet-doing well. 1200 mL fluid restriction. Reviewed speech recommendation, pur�ed solids and thin liquids suggested. Will ask speech to come by and see if he can be on a more solid diet.
Unclear etiology for this GI bleeding but cannot rule out Ebenezer's lesion, no evidence of definite variceal bleeding.
-Abdominal ultrasound showing nodular contour of the liver but CT scan showed normal liver morphology.
Patient denies any significant alcohol use and reports last drink 5 years ago.
Reviewing previous records, patient had history of SBP in October 2023 and treated .
?History of hepatitis B infection status posttreatment. Unclear. This was noted in one of the records in October 2023. His hepatitis B surface antigen is negative and antibody positive.He reports being [facility] ago,cannot recall name of
doctor who treated him. Will need to check Hep B DNA.
He will need outpatient GI follow-up.
h/o SBP previously and recent para without SBP,currently on Abx
Might need para again thursday for ascities
-Leukocytosis without fever
Possible aspiration during the procedure, currently on antibiotics.
-CT A/P- 02/10/2024: showed colitis from cecum to ascending colon: added flagyl and planning finish a 5-7 day course .
Reports colonoscopy being done at [place] in April 2023. No records available at this time.
-Will follow up .
Subjective
Subjective
Date of Service: February 14, 2024
patient reports having couple of bowel movements yesterday. No abdominal pain, nausea or vomiting. Tolerating full liquid diet
Objective
Data Reviewed
Laboratory Data:
Laboratory Results
02/14/24 05:00
02/14/24 05:00
Laboratory Results
PT 16.7 Sec (11.4-14.6) H 02/12/24 05:55
INR 1.34 02/12/24 05:55
APTT > 200 Sec (23.4-35.0) H* 02/08/24 05:01
Phosphorus 2.6 mg/dl (2.5-4.5) 02/12/24 05:55
Magnesium 1.7 mg/dl (1.6-2.3) 02/12/24 05:55
Total Bilirubin 0.7 mg/dl (0.2-1.3) 02/12/24 05:55
AST 21 U/L (17-59) 02/12/24 05:55
ALT 14 U/L (0-50) 02/12/24 05:55
Alkaline Phosphatase 183 U/L (38-126) H 02/12/24 05:55
Vital Signs and I&O:
Vital Signs
Temp Pulse Resp BP Pulse Ox
98.1 F 72 20 172/75 99
02/14/24 11:41 02/14/24 11:51 02/14/24 11:41 02/14/24 11:51 02/14/24 11:41
I&O
02/13/24 02/14/24 02/15/24
06:59 06:59 06:59
Intake Total 1455 / 1455 1320 / 1320
Balance 1455 / 1455 1320 / 1320
Physical Exam
Physical Exam
GI: Soft, Distended and Non Tender
Extremities: Edema
--- NOTE | 2024-02-14 15:07 | PTOTSP ---
Speech Pathology Follow Up
Tolerated PO trials this date with no overt s/sx of aspiration. Recommend trial of minced and moist diet per patient request pending GI clearance. DIRECTOR DIGITAL ADVERTISING service to follow up and advance diet as able.
Recommendations:
1. Trial Minced and moist (IDDSI 5), thin liquids pending GI clearance
2. Medications as tolerated
3. Aspiration and reflux precautions: Fully awake, alert, and upright for all PO intake as well as for at least 60 minutes after PO intake; assistance with PO intake; small bites/sips; slow intake rate; alternate solids/liquids
4. DIRECTOR DIGITAL ADVERTISING to f/u re: diet tolerance, airway protection, re-assessment for candidacy of PO diet advancement (pending GI clearance), as well as to determine if pt would benefit from an instrumental swallow study
[2024-02-14 15:39] VITALS: BP 107/55
[2024-02-14] MEDS: APRESOLINE PO (16:27)
[2024-02-14 17:28] LABS: Glucose - Point of Care 228 mg/dl (70-99)
[2024-02-14] MEDS: NOVOLOG FLEXPEN-LOW RESISTANCE 2 UNITS SC (17:46)
[2024-02-14 19:11] VITALS: BP 125/61
[2024-02-14 21:12] LABS: Glucose - Point of Care 329 mg/dl (70-99)
[2024-02-14] MEDS: LIPITOR 80 MG PO (22:12)
[2024-02-14] MEDS: APRESOLINE 100 MG PO (22:12)
[2024-02-14 22:54] VITALS: BP 166/77
[2024-02-15] VITALS (8 sets, daily range): BP systolic 115–198; BP diastolic 59–74; PULSE 70; O2SAT 98; BMI 23.9
[2024-02-15 07:00] LABS: Glucose - Point of Care 115 mg/dl (70-99)
[2024-02-15 07:05] LABS: % Basophils 0.5 % (0-2); % Eosinophils 7.8 % (0-6); % Immature Granulocytes 1.2 % (0-0.5); % Lymphocytes 11.2 % (20.5-51.1); % Monocytes 9.9 % (1.7-9.3); % Neutrophils 69.4 % (42.2-75.2); Absolute Eosinophils 0.7 10^3/uL (0-0.7); Absolute Immature Granulocytes 0.1 10^3/uL (0-0.05); Absolute Monocytes 0.9 10^3/uL (0.1-0.6); Hematocrit 27.8 % (39.0-52.0); Hemoglobin 9.4 g/dL (13.0-18.0); Mean Corp Hgb Conc. 33.8 g/dL (33.0-37.0); Mean Corpuscular Hgb 30.9 pg (27.0-31.0); Mean Corpuscular Volume 91.4 fL (80.0-94.0); Mean Platelet Volume 11.2 fL (7.4-10.4); Nucleated Red Blood Cells % 0 % (-); Platelet Count 166 10^3/uL (130-400); Red Blood Cell Count 3.04 10^6/uL (4.70-6.10); Red Cell Dist. Width 17.6 % (11.5-14.5); White Blood Cell Count 8.7 10^3/uL (4.8-10.8)
[2024-02-15] MEDS: NOVOLOG FLEXPEN-LOW RESISTANCE SC ×2 (07:55→17:57)
[2024-02-15] MEDS: B COMPLEX w/VITAMIN C 1 CAPLET PO (07:55)
[2024-02-15] MEDS: ZOLOFT 100 MG PO (07:56)
[2024-02-15] MEDS: FLAGYL 500 MG PO ×3 (07:56→23:06)
[2024-02-15] MEDS: NSS (PRESERVATIVE FREE) 10 ML IV ×2 (07:56→20:19)
[2024-02-15] MEDS: PROTONIX IV 40 MG IV ×2 (07:57→20:18)
[2024-02-15] MEDS: ALDACTONE 50 MG PO (07:58)
[2024-02-15] MEDS: COZAAR 100 MG PO (07:59)
[2024-02-15] MEDS: CATAPRES 0.2 MG PO ×3 (07:59→21:47)
[2024-02-15] MEDS: PROCARDIA XL (EXTENDED RELEASE) 30 MG PO (07:59)
[2024-02-15] MEDS: APRESOLINE 100 MG PO ×3 (08:00→21:47)
[2024-02-15] MEDS: HEPARIN 5000 UNITS SC ×2 (08:00→20:18)
[2024-02-15 08:06] LABS: Blood Urea Nitrogen 28 mg/dl (9-20); Calcium 7.8 mg/dl (8.4-10.2); Carbon Dioxide 25 mmol/L (22-30); Chloride 94 mmol/L (98-107); Estimated Creatinine Clearance 19 ml/min; Glucose 114 mg/dl (70-99); Potassium 4.5 mmol/L (3.5-5.1); Sodium 133 mmol/L (135-145); eGFR 14.26
--- NOTE | 2024-02-15 08:27 | PN.DE.MGMTRT ---
Insulin Management
- -
02/15/2024: Diabetes Management F/U:
58 year old male admitted on 02/07 with 4 day hx of lethargy, coffee-ground emesis and melena.
PMH: ESRD on HD, A-fib on Coumadin, HTN, GERD, IDDM. Diabetes management requested to assist with Hypoglycemia.
Reports he has been a diabetic for over 28 year and routinely follows up with Endocrine Dr. Jorge Lopez at [facility] [place], uses free style bautista glucose meter. States he was taking Tresiba but it was recently discontinued due to
recurrent Hypoglycemia. Reports taking Humalog 5 units before meals and no other diabetes medication.
Pt had recurrent episodes of hypoglycemia on 02/07 and 02/08 as low as 45, requiring D5 infusion.
His glucose improved and was initiated on low corrective insulin requiring 1-2 units of coverage for glucose range of 170 to 205.
02/11 D5 infusion was d/c'd.
Pt awake, alert, sitting up in bed, offer no complaints, able to discuss diabetes plan of care.
Dysphagia diet started on 02/12. Premeal glucose range 121 to 228, HS glucose up to 329 last night, pt requiring 1-2 units of corrective insulin.
Discussed with pt, he is agreeable to start low dose AC NovoLog 4 units, 1st dose at lunch time.
Will closely follow and make further insulin adjustments if needed.
Discussed with pt's nurse at bedside.
Diabetes History
- -
Type of Diabetes: 2 requiring insulin
Pre-Admission Diabetes Regimen
02/15/24
05:56
Creatinine 4.5 H*
Insulin Pump Settings
IP Diabetes Regimen
02/14/24 02/14/24 02/14/24
11:23 17:26 21:09
Glucose
POC Glucose 185 H 228 H 329 H
02/15/24 02/15/24
05:56 06:54
Glucose 114 H
POC Glucose 115 H
Meal type: Dinner
Meal type: Lunch
Amount consumed: 100%
Amount consumed: 100%
Patient Education
--- NOTE | 2024-02-15 10:47 | W.PN.NEPH.PH ---
Today's Communication / Plan
-
HD in AM
Assessment/Plan
-
Impression:
Acute GI Bleed
Acute Blood Loss Anemia
Coumadin Coagulopathy
Hyperkalemia
Metabolic Acidosis
ESRD on hemodialysis [facility]
Anemia of ESRD
Hypovolemia secondary to the above
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
Paroxysmal Atrial Fibrillation
Chronic HFpEF
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
History of bilateral pleural effusions status post thoracentesis
History of pericardial effusion status post pericardiocentesis
Coronary artery disease
Essential hypertension
DM2 with multiple microvascular complications
Hyperlipidemia
Spinal stenosis
Anxiety/depression
L radial AVF
Plan:
HD in am
transfuse prn
follow Hgb
-
-
Date of Service: February 15, 2024
CC / HPI / ROS
-
Chief Complaint:
ESRD
History of Present Illness:
hgb stable at 9.4
BP high
no fever and on RA
Review of Systems:
no n/v
no pain
no cp or sob
Labs
-
Labs:
WBC 8.7 10^3/uL (4.8-10.8) 02/15/24 05:56
RBC 3.04 10^6/uL (4.70-6.10) L 02/15/24 05:56
Hgb 9.4 g/dL (13.0-18.0) L 02/15/24 05:56
Hct 27.8 % (39.0-52.0) L 02/15/24 05:56
Plt Count 166 10^3/uL (130-400) 02/15/24 05:56
Sodium 133 mmol/L (135-145) L 02/15/24 05:56
Potassium 4.5 mmol/L (3.5-5.1) 02/15/24 05:56
Chloride 94 mmol/L (98-107) L 02/15/24 05:56
Carbon Dioxide 25 mmol/L (22-30) 02/15/24 05:56
BUN 28 mg/dl (9-20) H 02/15/24 05:56
Creatinine 4.5 mg/dL (0.7-1.3) H* 02/15/24 05:56
eGFR 14.26 02/15/24 05:56
Glucose 114 mg/dl (70-99) H 02/15/24 05:56
Calcium 7.8 mg/dl (8.4-10.2) L 02/15/24 05:56
Phosphorus 2.6 mg/dl (2.5-4.5) 02/12/24 05:55
Albumin 2.5 g/dl (3.5-5.0) L 02/12/24 05:55
Physical Exam
-
Vital Signs:
Vital Signs
Temp Pulse Resp BP Pulse Ox
98.6 F 70 16 177/73 97
02/15/24 07:00 02/15/24 08:00 02/15/24 07:00 02/15/24 08:00 02/15/24 08:00
Cardiovascular:: Regular rate and rhythm
Respiratory:: Bilateral: CTA
Lung Excursion:: Normal
Abdomen:: Nontender and Soft
Bowel Sounds:: Normal
Extremity Edema:: None: Bilateral:
[2024-02-15 11:43] LABS: Glucose - Point of Care 194 mg/dl (70-99)
[2024-02-15] MEDS: NOVOLOG FLEXPEN-LOW RESISTANCE 1 UNITS SC (12:27)
[2024-02-15] MEDS: NOVOLOG FLEXPEN 4 UNITS SC ×2 (12:27→17:57)
--- NOTE | 2024-02-15 12:55 | W.PN.GI.CBS2 ---
Addendum entered and electronically signed by Destiny Macias MD 02/15/24 19:15:
I saw and examined the patient.
The resident's note was reviewed and I agree with the note.
Comment: Patient currently denies any complaints. On a minced/moist diet. Had bowel movement yesterday without any blood. Hemoglobin stable.
-Continue pantoprazole 40 mg twice daily
Hemoglobin stable without any further bleeding
Okay to start anticoagulation with Coumadin but need to monitor bowel movements and H&H closely
He needs to follow-up with his GI doctor at [facility] for a video capsule study.
-History of hepatitis B, HBV DNA pending
No evidence of decompensation
Needs to follow-up with hepatology as outpatient as well
History of SBP in the past but no SBP noted on paracentesis this admission
History of aspiration this admission during endoscopy, treated with antibiotics
Will follow-up
Original Note:
Today's Communication / Plan
-
.
Assessment / Plan
-
Impression: The patient is a 58-year-old male with a PMH of significant for A-fib (on Coumadin), CAD, ERSD on HD on , iron deficiency anemia, heart failure with preserved ejection fraction, history of pleural effusions with
pericardiocentesis, HT, spinal stenosis, GERD, ?Dunlap's Esophagus, prior C-diff, DM, CHF, migraines, gastritis, constipation, new onset ascites with recent outpatient paracentesis, cirrhosis on imagining in December. The patient presented to
the ER on 02.08.24 complaining of N/V/D. He reported having dark stools and missed his and Thursday HD sessions. He then had N/V with dark bloody vomiting. GI was consulted to evaluate the patient. His Hgb on presentation was 3.1 and INR
> 8.0 .Previous Hgb on 01/20/24 was 8.6. Patient was started on Protonix bolus and drip Octreotide drip. He was given KCentra and Vitamin K. He has been transfused 7 units of RBC since the admission. GI team saw him in August 2023 during
hospitalization for abdominal pain. Prior to that he had an admission in July with EGD at [place] with esophagitis. He reportedly had EGD/Colonoscopy at [facility] prior to the [place] admission and was told he had Barretts esophagus but no
obvious source of bleeding and was recommended to have Video capsule study. Information obtained from records as patient is not cooperative enough to provide any information. He underwent to EGD on 02/09/24 and had a paracentesis 02/10/24. No
ongoing hematosis or melena. Hgb levels are matthew after last RBC transfusions since 02/08.
-EGD on 02/09/24-
Findings:
Mildly severe esophagitis was found in the lower third of the esophagus.
Grade I varices were found in the lower third of the esophagus. They were small in size.
A single localized small erosion with active bleeding was found in the
cardia. It was not clear if this erosion was from scope trauma or
possibly a Ebenezer's type erosion. No obvious gastric varices seen. For
hemostasis, one hemostatic clip was successfully placed (MR conditional).
Hematin (altered blood/wkplmj-pxkcoz-eyby material) was found in the
stomach. The examined duodenum was normal.
Acute GI Bleed -->Severe with Hgb of 3.1 at admission. Prior hx of esophagitis (July 2023 at [place], prior Hx GIB/anemia at [facility] with no bleeding E/C identified with recommended VCE recommended in past)
Acute blood loss anemia on hx of chronic anemia. Baseline Hgb in the 8 range.
Coagulopathy INR 1.44 this morning
ESRD on HD -> //Thu--> last HD last one was on 02/11/24 and previous was on 02/09/24 (missed 02/03 and 02/05)
Cirrhosis -> imaging (12/2023)
US Abdominal Doppler: Patent hepatic vasculature with appropriate directional flow, as described above. Moderate diffuse abdominal ascites. No evidence for acute cholecystitis. Hepatic cirrhosis. No focal hepatic lesions.
Ascites- Paracentesis last on 02/10/24: Large-volume paracentesis (diagnostic + therapeutic) and was given albumin: fluid WBC 123 neg SBP, fluid albumin <1 and serum albumin 2.3. SAAG >1.3 c/w portal HTN
HFpEF
PAF
Barretts esophagus
-Abdominal ultrasound showing nodular contour of the liver but CT scan showed normal liver morphology.
Patient denies any significant alcohol use and reports last drink 5 years ago.
Reviewing previous records, patient had history of SBP in October 2023 and treated .
?History of hepatitis B infection status posttreatment. Unclear. This was noted in one of the records in October 2023. His hepatitis B surface antigen is negative and antibody positive.He reports being treated at [facility] 2 yrs ago,cannot recall name of
doctor who treated him. Will need to check Hep B DNA.
He will need outpatient GI follow-up.
-CT A/P- 02/10/2024: showed colitis from cecum to ascending colon: added flagyl and planning finish a 5-7 day course .
Reports colonoscopy being done at [place] in April 2023. No records available at this time.
Plan:
-Currently on pantoprazole 40 mg IV twice daily. Hemoglobin seems to be stable, no overt bleeding. No hematemesis no melena.
-Unclear etiology for this GI bleeding but cannot rule out Ebenezer's lesion, no evidence of definite variceal bleeding.
-Continue to monitor H&H and transfuse if needed.
-Diet: IDDSI 5 Minced&Moist diet-tolerating well.
-Continue:ceftriaxon: Hx of SBP previously and recent para without SBP, currently
-Hx OF hep B:His hepatitis B surface antigen is negative and antibody positive/ HBV DNA was ordered
-Decision to Restart anti-coagulant treatment will be discussed with Dr Dixon
-Will follow up .
Subjective
Subjective
Date of Service: February 15, 2024
The patient was seen in his bed ordering his lunch. Reported no abdominal pain and tolerating his diet well. Denies vomiting or melena.
Objective
Data Reviewed
Laboratory Data:
Laboratory Results
02/15/24 05:56
02/15/24 05:56
Laboratory Results
PT 16.7 Sec (11.4-14.6) H 02/12/24 05:55
INR 1.34 02/12/24 05:55
APTT > 200 Sec (23.4-35.0) H* 02/08/24 05:01
Phosphorus 2.6 mg/dl (2.5-4.5) 02/12/24 05:55
Magnesium 1.7 mg/dl (1.6-2.3) 02/12/24 05:55
Total Bilirubin 0.7 mg/dl (0.2-1.3) 02/12/24 05:55
AST 21 U/L (17-59) 02/12/24 05:55
ALT 14 U/L (0-50) 02/12/24 05:55
Alkaline Phosphatase 183 U/L (38-126) H 02/12/24 05:55
Vital Signs and I&O:
Vital Signs
Temp Pulse Resp BP Pulse Ox
98.3 F 60 16 128/61 94
02/15/24 11:00 02/15/24 11:00 02/15/24 11:00 02/15/24 11:00 02/15/24 11:00
I&O
02/14/24 02/15/24 02/16/24
06:59 06:59 06:59
Intake Total 1320 / 1320 1320 / 1320
Balance 1320 / 1320 1320 / 1320
Physical Exam
Physical Exam
HEENT: Anicteric
Cardiology: Normal Sinus Rhythm, S1 and S2
Pulmonary: Clear
GI: Soft, Distended (mildy ) and Non Tender
Extremities: No Edema
Neuro: Non Focal
--- NOTE | 2024-02-15 12:55 | W.PN.HOSP.TC ---
Today's Communication/Plan
-
Coumadin on hold pending GI recommendation
c/w Diet , advance
HD on Thursday
Discharge planning
Assessment / Plan
Assessment / Plan
Physical exam:
General: chronically ill looking.
HEENT: Normocephalic, Atraumatic and Moist Mucous Membranes
Respiratory: limited but clear to Auscultation; Negative Wheezes.
Cardiac: S1/S2
GI: Soft, tender epigastric area and Nondistended
Musculoskeletal: Bilateral lower extremity edema. No Clubbing, No Cyanosis
Neuro: Awake, Alert and Oriented, no gross neuro deficits
Psych: Calm
EGD:
Impression: - Mildly severe esophagitis.
- Grade I esophageal varices. No stigmata of bleeding
- Gastric erosion in the cardia with active bleeding.
Unclear if this was from endoscope trauma. Clip (MR
conditional) was placed. No gastric varices seen.
- Hematin (altered blood/szspix-umhurg-eqnh material)
in the stomach.
- Normal examined duodenum.
CT head:
No acute intracranial abnormality noted.
CT abd/pelvis:
1. There is increased bibasilar consolidations with new surrounding groundglass opacities and small nodular consolidations in the posterior upper lobes suspicious for multifocal pneumonia.
2. There is apparent wall thickening of the cecum and ascending colon favored to represent colitis
3. Cholelithiasis.
4. Small volume ascites.
5. Extensive atherosclerotic indications.
A/P:
Acute GI bleed:
Improved
No rectal bleeding. no overt bleeding. HGB around 9
Findings of bleeding per upper endoscopy in the setting of warfarin use.
On full liquid diet per GI
May be able to advance diet either later this evening or tomorrow
Appreciated GI consult and follow-up
Off PPI and octreotide drip
Continue IV PPI twice a day
On antiemetics as needed
Monitor hemoglobin--> 9.[address] Gamble discussed with family at bedside on 02/13 (his cousin who he lives with) -he would like to talk to human services case manager about discharge disposition. Informed RN about his request.
PT OT evaluation.
publishing manager for discharge disposition
Sepsis due to aspiration pneumonia:
Continue IV Rocephin and might be able to switch to oral over the next 24 hours and continue oral metronidazole. Per GI: -CT A/P- 02/10/2024: showed colitis from cecum to ascending colon: added flagyl and planning finish a 5-7 day course .
WBC 19.7-->8.[address] chest abd pelvis and cxr reviewed
Blood cultures no growth
Paracentesis done and essentially ruled out SBP. Also, therapeutic paracentesis since over 6 L out and received IV albumin.
SAAG more than 1.3 consistent with portal hypertension.
MRSA colonizer.
Hypertensive urgency/hypertension:
Improved
Off Cardene drip
On his home oral regimen with holding parameters--> he is on clonidine 0.2 mg 3 times daily, spironolactone 50 mg p.o. daily, nifedipine 30 mg p.o. daily, losartan 50 mg p.o. daily, and hydralazine 75 mg p.o. 3 times daily.
Hyponatremia, mild
No confusion
# hemorrhagic shock, mild with Hypotension:
Improved
Required midodrine on 02/11 evening but none since then
#Acute blood loss anemia with hemorrhagic shock exacerbated by Coumadin Coagulopathy:
Improved
Status post 7 units blood transfusions
Threshold lower in the setting of concerns for variceal bleed and end-stage renal disease/chf to avoid hypervolemia
Initial hemoglobin 3.1 upon admission
Hemoglobin stabilized.
Toxic metabolic encephalopathy:
Improved
Off Precedex drip
lucid and cooperative
Continue monitor mental status
Coagulopathy:
Status post Kcentra and vitamin K
INR over 8 > on admission
Cirrhosis:
No nausea.
Elevated troponin:
Likely type II NJ with demand ischemia
Atypical chest pain:
Received pain medication
Troponin trended down appropriately
End-stage renal disease on hemodialysis:
Hemodialysis need per nephrology
Acute hypoxic respiratory failure:
Oxygen supplementation as needed
Titrate oxygen when appropriate
Paroxysmal atrial fibrillation:
Hold anticoagulation until cleared by GI
Cardiac monitoring
Not on rate control agents as outpatient
Chronic HFpEF:
Manage volume with dialysis
Diabetes mellitus:
Insulin as needed
s/p D5 for hypoglycemia and he had a few episodes
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
Monitor blood sugars
DVT prophylaxis:
SCDs
CODE STATUS:
Full code
Total time spent to see the patient, examine the patient on the floor, review data and lab results, discuss treatment plan with patient, nursing staff around 55 minutes
Anticipated Discharge: 24 - 48 hours
Subjective/Interval History
-
Date of Service: February 15, 2024
No chest pain
No sob
No fevers
Objective Data
-
Labs:
Laboratory Results
02/15/24
05:56
WBC 8.7
Hgb 9.4 L
Hct 27.8 L
Plt Count 166
Sodium 133 L
Potassium 4.5
Chloride 94 L
Carbon Dioxide 25
BUN 28 H
Creatinine 4.5 H*
Glucose 114 H
Calcium 7.8 L
Vital Signs:
Vital Signs
Temp Pulse Resp BP Pulse Ox
98.3 F 60 16 128/61 94
02/15/24 11:00 02/15/24 11:00 02/15/24 11:00 02/15/24 11:00 02/15/24 11:00
I&O
02/14/24 02/15/24 02/16/24
06:59 06:59 06:59
Intake Total 1320 / 1320 1320 / 1320
Balance 1320 / 1320 1320 / 1320
--- NOTE | 2024-02-15 14:24 | CM ---
Met with patient at bedside
Discussed other options of SNF.
Patient states does not wish to go to [place] & that his cousins to tour [facility].
Option of [facility] discussed & referral placed in [facility].
HD tomorrow
Will need to obtain insurance authorization from [employer]
PLAN: SNF, pending bed availability
[2024-02-15 17:46] LABS: Glucose - Point of Care 109 mg/dl (70-99)
[2024-02-15 21:33] LABS: Glucose - Point of Care 96 mg/dl (70-99)
[2024-02-15] MEDS: LIPITOR 80 MG PO (21:47)
[2024-02-15] MEDS: DILAUDID 0.5 MG IV (23:02)
[2024-02-16 03:33] VITALS: BP 149/71
[2024-02-16 05:29] VITALS: BMI 24.2
[2024-02-16 07:00] VITALS: BP 156/73
[2024-02-16 07:03] LABS: Hematocrit 27.9 % (39.0-52.0); Hemoglobin 9.1 g/dL (13.0-18.0)
[2024-02-16 07:15] LABS: Carbon Dioxide 26 mmol/L (22-30); Chloride 94 mmol/L (98-107); Potassium 4.9 mmol/L (3.5-5.1); Sodium 130 mmol/L (135-145)
[2024-02-16 07:15] LABS: Glucose - Point of Care 102 mg/dl (70-99)
--- NOTE | 2024-02-16 07:37 | PN.DE.MGMTRT ---
Insulin Management
- -
02/16/2024: Diabetes Management Follow up:
58 year old male admitted on 02/07 with 4 day hx of lethargy, coffee-ground emesis and melena.
PMH: ESRD on HD, A-fib on Coumadin, HTN, GERD, IDDM. Diabetes management requested to assist with Hypoglycemia.
Reports he has been a diabetic for over 28 year and routinely follows up with Endocrine Dr. Jorge Lopez at [facility] in [place], uses free style henry glucose meter. States he was taking Tresiba but it was recently discontinued due to
recurrent Hypoglycemia. Reports taking Humalog 5 units before meals and no other diabetes medication.
Pt had recurrent episodes of hypoglycemia on 02/07 and 02/08 as low as 45, requiring D5 infusion.
His glucose improved and was initiated on low corrective insulin requiring 1-2 units of coverage for glucose range of 170 to 205.
02/11 D5 infusion was d/c'd.
02/15 Pt awake, alert, sitting up in bed, seen during dialysis, offers no complaints, able to discuss diabetes plan of care. States he often takes his insulin after he eats. He also states he has 'run out' of henry CGMs. Encouraged his to call
his crepe sole wire brusher for appointment so he can resume Henry.
Dysphagia diet started on 02/12. AC NovoLog 4 units started with lunch 02/14 Premeal glucose range yesterday 96 to 192, HS glucose 96 last night.
He has received no insulin this AM due to HD.
Will closely follow and make further insulin adjustments if needed.
Discussed with pt's nurse, she will notify me of any changes.
Diabetes History
- -
Type of Diabetes: 2
Pre-Admission Diabetes Regimen
02/15/24
05:56
Creatinine 4.5 H*
Insulin Pump Settings
IP Diabetes Regimen
02/15/24 02/15/24 02/15/24
05:56 11:41 17:45
Glucose 114 H
POC Glucose 194 H 109 H
02/15/24 02/16/24
21:29 07:14
Glucose
POC Glucose 96 102 H
Meal type: Dinner
Amount consumed: 70%
Patient Education
--- NOTE | 2024-02-16 08:24 | W.PN.GI.CBS2 ---
Addendum entered and electronically signed by Bonnie Matson MD 02/16/24 14:36:
I saw and examined the patient.
The medical interpreter note was reviewed and I agree with the note.
Comment:
No further bleeding. Tolerating current diet. Hb stable
plan
Protonix 40 mg twice daily for 4 weeks then daily
ok to restart coumadin with monitoring hemoglobin/ BM
Advised him to follow-up with his GI doc at [facility]. VCE as outpatient . also follow up hep B DNA / further mx and follow up of cirrhosis
will s/o. Please call us back if any question
Original Note:
Today's Communication / Plan
-
-Recommended to start anticoagulation with Coumadin bridging with heparin but need to monitor bowel movements and H&H closely
Assessment / Plan
-
Impression: The patient is a 58-year-old male with a PMH of significant for A-fib (on Coumadin), CAD, ERSD on HD on , iron deficiency anemia, heart failure with preserved ejection fraction, history of pleural effusions with
pericardiocentesis, HT, spinal stenosis, GERD, ?Dunlap's Esophagus, prior C-diff, DM, CHF, migraines, gastritis, constipation, new onset ascites with recent outpatient paracentesis, cirrhosis on imagining in December. The patient presented to
the ER on 02.08.24 complaining of N/V/D. He reported having dark stools and missed his and Thursday HD sessions. He then had N/V with dark bloody vomiting. GI was consulted to evaluate the patient. His Hgb on presentation was 3.1 and INR
> 8.0 .Previous Hgb on 01/20/24 was 8.6. Patient was started on Protonix bolus and drip Octreotide drip. He was given KCentra and Vitamin K. He has been transfused 7 units of RBC since the admission. GI team saw him in August 2023 during
hospitalization for abdominal pain. Prior to that he had an admission in July with EGD at [place] with esophagitis. He reportedly had EGD/Colonoscopy at [facility] prior to the [place] admission and was told he had Barretts esophagus but no
obvious source of bleeding and was recommended to have Video capsule study. Information obtained from records as patient is not cooperative enough to provide any information. He underwent to EGD on 02/09/24 and had a paracentesis 02/10/24. No
ongoing hematosis or melena. Hgb levels are matthew after last RBC transfusions since 02/08.
-EGD on 02/09/24-
Findings:
Mildly severe esophagitis was found in the lower third of the esophagus.
Grade I varices were found in the lower third of the esophagus. They were small in size.
A single localized small erosion with active bleeding was found in the
cardia. It was not clear if this erosion was from scope trauma or
possibly a Ebenezer's type erosion. No obvious gastric varices seen. For
hemostasis, one hemostatic clip was successfully placed (MR conditional).
Hematin (altered blood/csuzjk-skifck-jaep material) was found in the
stomach. The examined duodenum was normal.
Acute GI Bleed -->Severe with Hgb of 3.1 at admission. Prior hx of esophagitis (July 2023 at [place], prior Hx GIB/anemia at [facility] with no bleeding E/C identified with recommended VCE recommended in past)
Acute blood loss anemia on hx of chronic anemia. Baseline Hgb in the 8 range.
Coagulopathy INR 1.44 this morning
ESRD on HD -> //Thu--> last HD last one was on 02/11/24 and previous was on 02/09/24 (missed 02/03 and 02/05)
Cirrhosis -> imaging (12/2023)
US Abdominal Doppler: Patent hepatic vasculature with appropriate directional flow, as described above. Moderate diffuse abdominal ascites. No evidence for acute cholecystitis. Hepatic cirrhosis. No focal hepatic lesions.
Ascites- Paracentesis last on 02/10/24: Large-volume paracentesis (diagnostic + therapeutic) and was given albumin: fluid WBC 123 neg SBP, fluid albumin <1 and serum albumin 2.3. SAAG >1.3 c/w portal HTN
HFpEF
PAF
Barretts esophagus
-Abdominal ultrasound showing nodular contour of the liver but CT scan showed normal liver morphology.
Patient denies any significant alcohol use and reports last drink 5 years ago.
Reviewing previous records, patient had history of SBP in October 2023 and treated .
?History of hepatitis B infection status posttreatment. Unclear. This was noted in one of the records in October 2023. His hepatitis B surface antigen is negative and antibody positive.He reports being treated at [facility] 2 yrs ago,cannot recall name of
doctor who treated him. Will need to check Hep B DNA.
He will need outpatient GI follow-up.
-CT A/P- 02/10/2024: showed colitis from cecum to ascending colon: added flagyl and planning finish a 5-7 day course .
Reports colonoscopy being done at [place] in April 2023. No records available at this time.
Plan:
-Continue pantoprazole 40 mg IV twice daily. Hemoglobin seems to be stable, no overt bleeding. No hematemesis no melena.
-Unclear etiology for this GI bleeding but cannot rule out Ebenezer's lesion, no evidence of definite variceal bleeding.
-Continue to monitor H&H and transfuse if needed.
-Diet: IDDSI 5 Minced&Moist diet-tolerating well.
-Continue:ceftriaxon: Hx of SBP previously and recent para without SBP, currently
-Hx OF hep B:His hepatitis B surface antigen is negative and antibody positive/ HBV DNA was ordered: Pending
-He needs to follow-up with his GI doctor at [facility] for a video capsule study.
-Needs to follow-up with hepatology as outpatient as well
-Start anticoagulation with Coumadin but need to monitor bowel movements and H&H closely
-Will follow up .
Subjective
Subjective
Date of Service: February 16, 2024
The patient was seen in his bed, receiving hemodialysis. Denies nausea, vomiting or diarrhea. Endorses some tenderness on abdomen.
Objective
Data Reviewed
Laboratory Data:
Laboratory Results
02/16/24 05:41
02/16/24 05:41
Laboratory Results
PT 16.7 Sec (11.4-14.6) H 02/12/24 05:55
INR 1.34 02/12/24 05:55
APTT > 200 Sec (23.4-35.0) H* 02/08/24 05:01
Phosphorus 2.6 mg/dl (2.5-4.5) 02/12/24 05:55
Magnesium 1.7 mg/dl (1.6-2.3) 02/12/24 05:55
Total Bilirubin 0.7 mg/dl (0.2-1.3) 02/12/24 05:55
AST 21 U/L (17-59) 02/12/24 05:55
ALT 14 U/L (0-50) 02/12/24 05:55
Alkaline Phosphatase 183 U/L (38-126) H 02/12/24 05:55
Vital Signs and I&O:
Vital Signs
Temp Pulse Resp BP Pulse Ox
98.2 F 62 16 156/73 97
02/16/24 07:00 02/16/24 07:00 02/16/24 07:00 02/16/24 07:00 02/16/24 07:00
I&O
02/15/24 02/16/24 02/17/24
06:59 06:59 06:59
Intake Total 1320 / 1320 360 / 360
Balance 1320 / 1320 360 / 360
Physical Exam
Physical Exam
HEENT: Anicteric and Moist mucous membranes
Cardiology: Normal Sinus Rhythm, S1 and S2
Pulmonary: Clear
GI: Soft, Distended and Non Tender
Extremities: No Edema
Neuro: Non Focal
[2024-02-16] MEDS: NOVOLOG FLEXPEN-LOW RESISTANCE SC ×3 (08:35→16:55)
[2024-02-16] MEDS: RETACRIT 10000 UNITS IV (09:55)
--- NOTE | 2024-02-16 10:08 | W.PN.NEPH.HD ---
Assessment
-
Seen on HD. No complaints. VSS, access ok
Progress Note - Hemodialysis
-
Date of Service: February 16, 2024
Duration: 30 minutes and 3 hours
Potassium Bath: 3
Calcium Bath: 2.5
Opti-Dialyzer: 160
Ultrafiltration: Other (2kg)
Blood Flow: 400
Dialysate Flow: 600
Heparin: no
EPO: 17540 units
[2024-02-16 11:00] VITALS: BP 129/61
[2024-02-16] MEDS: NOVOLOG FLEXPEN SC (11:01)
[2024-02-16] MEDS: ALDACTONE 50 MG PO (11:02)
[2024-02-16] MEDS: APRESOLINE 100 MG PO ×3 (11:02→21:16)
[2024-02-16] MEDS: COZAAR 100 MG PO (11:02)
[2024-02-16] MEDS: B COMPLEX w/VITAMIN C 1 CAPLET PO (11:02)
[2024-02-16] MEDS: PROCARDIA XL (EXTENDED RELEASE) 30 MG PO (11:02)
[2024-02-16] MEDS: FLAGYL 500 MG PO (11:02)
[2024-02-16] MEDS: CATAPRES 0.2 MG PO ×3 (11:03→21:15)
[2024-02-16] MEDS: NSS (PRESERVATIVE FREE) 10 ML IV ×2 (11:03→19:42)
[2024-02-16] MEDS: PROTONIX IV 40 MG IV ×2 (11:03→19:42)
[2024-02-16] MEDS: HEPARIN 5000 UNITS SC ×2 (11:03→19:41)
[2024-02-16] MEDS: ZOLOFT 100 MG PO (11:04)
--- NOTE | 2024-02-16 11:54 | W.PN.HOSP.TC ---
Today's Communication/Plan
-
Discharge in AM
Assessment / Plan
Assessment / Plan
Physical exam:
General: chronically ill looking.
HEENT: Normocephalic, Atraumatic and Moist Mucous Membranes
Respiratory: limited but clear to Auscultation; Negative Wheezes.
Cardiac: S1/S2
GI: Soft, tender epigastric area and Nondistended
Musculoskeletal: Bilateral lower extremity edema. No Clubbing, No Cyanosis
Neuro: Awake, Alert and Oriented, no gross neuro deficits
Psych: Calm
EGD:
Impression: - Mildly severe esophagitis.
- Grade I esophageal varices. No stigmata of bleeding
- Gastric erosion in the cardia with active bleeding.
Unclear if this was from endoscope trauma. Clip (MR
conditional) was placed. No gastric varices seen.
- Hematin (altered blood/fhmjmv-jrmkhv-daur material)
in the stomach.
- Normal examined duodenum.
CT head:
No acute intracranial abnormality noted.
CT abd/pelvis:
1. There is increased bibasilar consolidations with new surrounding groundglass opacities and small nodular consolidations in the posterior upper lobes suspicious for multifocal pneumonia.
2. There is apparent wall thickening of the cecum and ascending colon favored to represent colitis
3. Cholelithiasis.
4. Small volume ascites.
5. Extensive atherosclerotic indications.
A/P:
Acute GI bleed:
Improved
No rectal bleeding. no overt bleeding. HGB around 9
Findings of bleeding per upper endoscopy in the setting of warfarin use.
On full liquid diet per GI
May be able to advance diet either later this evening or tomorrow
Appreciated GI consult and follow-up
Off PPI and octreotide drip
Continue IV PPI twice a day
On antiemetics as needed
Monitor hemoglobin--> 9.[address] Gamble discussed with family at bedside on 02/13 (his cousin who he lives with) -he would like to talk to rn case mgr about discharge disposition. Informed RN about his request.
PT OT evaluation.
salon manager for discharge disposition
Sepsis due to aspiration pneumonia:
Continue IV Rocephin and might be able to switch to oral over the next 24 hours and continue oral metronidazole. Per GI: -CT A/P- 02/10/2024: showed colitis from cecum to ascending colon: added flagyl and planning finish a 5-7 day course .
WBC 19.7-->8.[address] chest abd pelvis and cxr reviewed
Blood cultures no growth
Paracentesis done and essentially ruled out SBP. Also, therapeutic paracentesis since over 6 L out and received IV albumin.
SAAG more than 1.3 consistent with portal hypertension.
MRSA colonizer.
Hypertensive urgency/hypertension:
Improved
Off Cardene drip
On his home oral regimen with holding parameters--> he is on clonidine 0.2 mg 3 times daily, spironolactone 50 mg p.o. daily, nifedipine 30 mg p.o. daily, losartan 50 mg p.o. daily, and hydralazine 75 mg p.o. 3 times daily.
Hyponatremia, mild
No confusion
# hemorrhagic shock, mild with Hypotension:
Improved
Required midodrine on 02/11 evening but none since then
#Acute blood loss anemia with hemorrhagic shock exacerbated by Coumadin Coagulopathy:
Improved
Status post 7 units blood transfusions
Threshold lower in the setting of concerns for variceal bleed and end-stage renal disease/chf to avoid hypervolemia
Initial hemoglobin 3.1 upon admission
Hemoglobin stabilized.
Toxic metabolic encephalopathy:
Improved
Off Precedex drip
lucid and cooperative
Continue monitor mental status
Coagulopathy:
Status post Kcentra and vitamin K
INR over 8 > on admission
Cirrhosis:
No nausea.
Elevated troponin:
Likely type II NV with demand ischemia
Atypical chest pain:
Received pain medication
Troponin trended down appropriately
End-stage renal disease on hemodialysis:
Hemodialysis need per nephrology
Acute hypoxic respiratory failure:
Oxygen supplementation as needed
Titrate oxygen when appropriate
Paroxysmal atrial fibrillation:
Held anticoagulation, d/w GI today, ok to resume
Cardiac monitoring
Not on rate control agents as outpatient
Chronic HFpEF:
Manage volume with dialysis
Diabetes mellitus:
Insulin as needed
s/p D5 for hypoglycemia and he had a few episodes
VALVE LAPPER diabetic consult--> recommended corrective insulin sliding scale at home if blood sugar less than 180 and possibly start low-dose before meals once diet has been advanced.
Monitor blood sugars
DVT prophylaxis:
SCDs
CODE STATUS:
Full code
Total time spent to see the patient, examine the patient on the floor, review data and lab results, discuss treatment plan with patient, nursing staff around 55 minutes
Anticipated Discharge: Within 24 hours
Subjective/Interval History
-
Date of Service: February 16, 2024
No complaints
Objective Data
-
Labs:
Laboratory Results
02/16/24
05:41
Hgb 9.1 L
Hct 27.9 L
Sodium 130 L
Potassium 4.9
Chloride 94 L
Carbon Dioxide 26
Vital Signs:
Vital Signs
Temp Pulse Resp BP Pulse Ox
98.2 F 69 16 129/61 99
02/16/24 11:00 02/16/24 11:00 02/16/24 11:00 02/16/24 11:00 02/16/24 11:00
I&O
02/15/24 02/16/24 02/17/24
06:59 06:59 06:59
Intake Total 1320 / 1320 360 / 360
Balance 1320 / 1320 360 / 360
[2024-02-16 12:46] LABS: Glucose - Point of Care 129 mg/dl (70-99)
[2024-02-16] MEDS: NOVOLOG FLEXPEN 4 UNITS SC ×2 (13:33→16:56)
[2024-02-16 14:26] VITALS: BMI 24.2
[2024-02-16 15:00] VITALS: BP 120/61
--- NOTE | 2024-02-16 16:37 | STATUS ---
SITUATION:
BACKGROUND:
ASSESSMENT:
RECOMMENDATION:
--- NOTE | 2024-02-16 16:37 | CM ---
Patient declining rehab. States wants to go home and ARM[facility]O with [facility]
Case management consult sher Rodas completed - d/c in am
Called patient sister and updated.
Spoke to Danielle at [facility] & Faxed 02/12 & 02/15 dialysis flow sheets.
PLAN: Home wih ARM[facility] Nurses, declined SNF
[2024-02-16] MEDS: COUMADIN 5 MG PO (16:49)
[2024-02-16 16:56] LABS: Glucose - Point of Care 105 mg/dl (70-99)
--- NOTE | 2024-02-16 18:07 | PTCARENOTE ---
Pt received HD during shift, tolerated it well, VSS. Denies pain/discomfort. Call nieto within reach.
[2024-02-16] MEDS: LIPITOR 80 MG PO (21:15)
[2024-02-16 21:57] LABS: Glucose - Point of Care 93 mg/dl (70-99)
[2024-02-16 22:21] LABS: HBV Quant by NAAT IU/mL Not Detected; HBV Quant by NAAT Interp Not Detected (Not Detected); HBV Quant by NAAT Log IU/mL Not Detected log IU/mL
[2024-02-16] MEDS: DILAUDID 0.5 MG IV (22:43)
[2024-02-16 23:26] VITALS: BP 126/55
[2024-02-17 05:45] VITALS: BMI 24.1
--- NOTE | 2024-02-17 07:24 | PN.DE.MGMTRT ---
Insulin Management
- -
02/17/2024: Diabetes Management Follow up:
58 year old male admitted on 02/07 with 4 day hx of lethargy, coffee-ground emesis and melena.
PMH: ESRD on HD, A-fib on Coumadin, HTN, GERD, IDDM. Diabetes management requested to assist with Hypoglycemia.
Reports he has been a diabetic for over 28 year and routinely follows up with Endocrine Dr. Jorge Lopez at [facility] in [place], uses free style henry glucose meter. States he was taking Tresiba but it was recently discontinued due to
recurrent Hypoglycemia. Reports taking Humalog 5 units before meals and no other diabetes medication.
Pt had recurrent episodes of hypoglycemia on 02/07 and 02/08 as low as 45, requiring D5 infusion.
His glucose improved and was initiated on low corrective insulin requiring 1-2 units of coverage for glucose range of 170 to 205.
02/11 D5 infusion was d/c'd.
02/16 Pt awake, alert, sitting up in bed, offers no complaints, able to discuss diabetes plan of care. States he often takes his insulin after he eats. He also states he has 'run out' of henry CGMs. Encouraged his to call his filter assembler for
appointment so he can resume Henry. He states he does have a working glucose monitor and test strips at home.
Dysphagia diet started on 02/12. AC NovoLog 4 units started with lunch 02/14 Premeal glucose range yesterday 93 to 129, HS glucose 93 last night.
Patient for discharge today.
Will follow and make further insulin adjustments if needed.
Discussed with pt's nurse, she will notify me of any changes.
Diabetes History
- -
Type of Diabetes: 2
Pre-Admission Diabetes Regimen
Insulin Pump Settings
IP Diabetes Regimen
02/16/24 02/16/24 02/16/24
12:45 16:54 21:55
POC Glucose 129 H 105 H 93
Meal type: Lunch
Meal type: Breakfast
Amount consumed: 100%
Amount consumed: 100%
Patient Education
[2024-02-17 08:14] VITALS: BP 156/67
[2024-02-17 09:00] LABS: Glucose - Point of Care 111 mg/dl (70-99)
--- NOTE | 2024-02-17 09:22 | PTOTSP ---
Dysphagia Therapy
Patient is appropriate to advance to a regular, thin liquid diet. He should follow reflux precautions given his history of GERD/esophagitis.
Recommend:
1. Regular, Thin Liquids
2. Medications as best tolerated
3. Reflux precautions including upright for at least 30 minutes after PO intake
4. Oral care 2x daily
5. No further dysphagia therapy warranted. Please reconsult as appropriate. If concerned for silent aspiration please reconsult via video swallow study. Low suspicion at this time.
[2024-02-17] MEDS: NOVOLOG FLEXPEN 4 UNITS SC ×3 (09:48→17:47)
[2024-02-17] MEDS: PROCARDIA XL (EXTENDED RELEASE) 30 MG PO (09:49)
[2024-02-17] MEDS: NOVOLOG FLEXPEN-LOW RESISTANCE SC ×2 (09:49→14:44)
[2024-02-17] MEDS: CATAPRES 0.2 MG PO ×2 (09:50→21:28)
[2024-02-17] MEDS: PROTONIX 40 MG PO ×2 (09:50→19:45)
[2024-02-17] MEDS: TYLENOL 500 MG PO (09:50)
[2024-02-17] MEDS: COZAAR 100 MG PO (09:51)
[2024-02-17] MEDS: B COMPLEX w/VITAMIN C 1 CAPLET PO (09:51)
[2024-02-17] MEDS: APRESOLINE 100 MG PO ×2 (09:51→21:27)
[2024-02-17] MEDS: ZOLOFT 100 MG PO (09:52)
[2024-02-17] MEDS: ALDACTONE 50 MG PO (09:52)
[2024-02-17] MEDS: HEPARIN SC (09:52)
[2024-02-17] MEDS: NSS (PRESERVATIVE FREE) IV (09:53)
[2024-02-17] MEDS: PROTONIX IV IV (09:53)
--- NOTE | 2024-02-17 10:17 | W.PN.NEPH.PH ---
Today's Communication / Plan
-
d/c plan
Assessment/Plan
-
Impression:
Acute GI Bleed
Acute Blood Loss Anemia
Coumadin Coagulopathy
Hyperkalemia
Metabolic Acidosis
ESRD on hemodialysis [facility]
Anemia of ESRD
Hypovolemia secondary to the above
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
Paroxysmal Atrial Fibrillation
Chronic HFpEF
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
History of bilateral pleural effusions status post thoracentesis
History of pericardial effusion status post pericardiocentesis
Coronary artery disease
Essential hypertension
DM2 with multiple microvascular complications
Hyperlipidemia
Spinal stenosis
Anxiety/depression
L radial AVF
Plan:
HD in am if still here
tolerating diet
transfuse prn
follow Hgb
prn paracentesis
-
-
Date of Service: February 17, 2024
CC / HPI / ROS
-
Chief Complaint:
ESRD
History of Present Illness:
hgb stable at 9.1, no labs today
BP stable
no fever and on RA
Review of Systems:
no n/v
no pain
no cp or sob
Labs
-
Labs:
WBC 8.7 10^3/uL (4.8-10.8) 02/15/24 05:56
RBC 3.04 10^6/uL (4.70-6.10) L 02/15/24 05:56
Hgb 9.1 g/dL (13.0-18.0) L 02/16/24 05:41
Hct 27.9 % (39.0-52.0) L 02/16/24 05:41
Plt Count 166 10^3/uL (130-400) 02/15/24 05:56
Sodium 130 mmol/L (135-145) L 02/16/24 05:41
Potassium 4.9 mmol/L (3.5-5.1) 02/16/24 05:41
Chloride 94 mmol/L (98-107) L 02/16/24 05:41
Carbon Dioxide 26 mmol/L (22-30) 02/16/24 05:41
BUN 28 mg/dl (9-20) H 02/15/24 05:56
Creatinine 4.5 mg/dL (0.7-1.3) H* 02/15/24 05:56
eGFR 14.26 02/15/24 05:56
Glucose 114 mg/dl (70-99) H 02/15/24 05:56
Calcium 7.8 mg/dl (8.4-10.2) L 02/15/24 05:56
Phosphorus 2.6 mg/dl (2.5-4.5) 02/12/24 05:55
Albumin 2.5 g/dl (3.5-5.0) L 02/12/24 05:55
Physical Exam
-
Vital Signs:
Vital Signs
Temp Pulse Resp BP Pulse Ox
98.2 F 63 18 156/67 99
02/17/24 08:14 02/17/24 09:52 02/17/24 08:14 02/17/24 09:52 02/17/24 08:14
Cardiovascular:: Regular rate and rhythm
Respiratory:: Bilateral: CTA
Abdomen:: Distended, Nontender and Soft
Extremity Edema:: None: Bilateral:
Alfred Catheter: No
--- NOTE | 2024-02-17 11:00 | CM ---
CM reviewed chart, spoke with nurse Deepika from [facility] [phone], re sent fax from yesterday, updated Hospitalist note, and H&P, patient known to dialysis center. Patient seen bedside, reviewed IMM, verbally signed as patient eating
breakfast, declined copy. Patient reports his cousins will provide transportation to and from HD, cousins will provide transportation home. Call to Deepika at [facility] to update on patient transport status as [facility] was requesting. Update to Patricia JUNE
on patient discharge status. CM will continue to follow for all discharge planning needs.
Plan; [facility] ([facility]
Ernesto Garber
--- NOTE | 2024-02-17 12:09 | W.PN.HOSP.TC ---
Today's Communication/Plan
-
paracentesis ( hard to get it done on same day of HD), will reach out to IR doctor.
Dc planning, hopefully we can discharge him tomorrow
Assessment / Plan
Assessment / Plan
Physical exam:
General: chronically ill looking.
HEENT: Normocephalic, Atraumatic and Moist Mucous Membranes
Respiratory: limited but clear to Auscultation; Negative Wheezes.
Cardiac: S1/S2
GI: Soft, tender epigastric area and Nondistended
Musculoskeletal: Bilateral lower extremity edema. No Clubbing, No Cyanosis
Neuro: Awake, Alert and Oriented, no gross neuro deficits
Psych: Calm
EGD:
Impression: - Mildly severe esophagitis.
- Grade I esophageal varices. No stigmata of bleeding
- Gastric erosion in the cardia with active bleeding.
Unclear if this was from endoscope trauma. Clip (MR
conditional) was placed. No gastric varices seen.
- Hematin (altered blood/fjaddq-otzhyf-qfpq material)
in the stomach.
- Normal examined duodenum.
CT head:
No acute intracranial abnormality noted.
CT abd/pelvis:
1. There is increased bibasilar consolidations with new surrounding groundglass opacities and small nodular consolidations in the posterior upper lobes suspicious for multifocal pneumonia.
2. There is apparent wall thickening of the cecum and ascending colon favored to represent colitis
3. Cholelithiasis.
4. Small volume ascites.
5. Extensive atherosclerotic indications.
A/P:
# Ascites
Recent paracentesis around 5800cc drained on 01/20/24. diagnosis of cirrhosis
US Abdominal Doppler 02/09 : Patent hepatic vasculature with appropriate directional flow. Moderate diffuse abdominal ascites. No evidence for acute cholecystitis. Hepatic cirrhosis. No focal hepatic lesions.
Ascites- Paracentesis last on 01/20/24: Large-volume paracentesis (diagnostic + therapeutic) and was given albumin: fluid WBC 123 neg SBP, fluid albumin <1 and serum albumin 2.3. SAAG >1.3 c/w portal HTN
He will need a repeat as abdomen is distended again.
#Acute GI bleed:
Improved
No rectal bleeding. no overt bleeding. HGB around 9
Findings of bleeding per upper endoscopy in the setting of warfarin use.
On full liquid diet per GI
May be able to advance diet either later this evening or tomorrow
Appreciated GI consult and follow-up
Off PPI and octreotide drip
Continue IV PPI twice a day
On antiemetics as needed
Monitor hemoglobin--> 9.[address] Gamble discussed with family at bedside on 02/13 (his cousin who he lives with) -he would like to talk to showcase trimmer about discharge disposition. Informed RN about his request.
PT OT evaluation.
dietary manager for discharge disposition
Sepsis due to aspiration pneumonia:
Continue IV Rocephin and might be able to switch to oral over the next 24 hours and continue oral metronidazole. Per GI: -CT A/P- 02/10/2024: showed colitis from cecum to ascending colon: added flagyl and planning finish a 5-7 day course .
WBC 19.7-->8.[address] chest abd pelvis and cxr reviewed
Blood cultures no growth
Paracentesis done and essentially ruled out SBP. Also, therapeutic paracentesis since over 6 L out and received IV albumin.
SAAG more than 1.3 consistent with portal hypertension.
MRSA colonizer.
Hypertensive urgency/hypertension:
Improved
Off Cardene drip
On his home oral regimen with holding parameters--> he is on clonidine 0.2 mg 3 times daily, spironolactone 50 mg p.o. daily, nifedipine 30 mg p.o. daily, losartan 50 mg p.o. daily, and hydralazine 75 mg p.o. 3 times daily.
Hyponatremia, mild
No confusion
# hemorrhagic shock, mild with Hypotension:
Improved
Required midodrine on 02/11 evening but none since then
#Acute blood loss anemia with hemorrhagic shock exacerbated by Coumadin Coagulopathy:
Improved
Status post 7 units blood transfusions
Threshold lower in the setting of concerns for variceal bleed and end-stage renal disease/chf to avoid hypervolemia
Initial hemoglobin 3.1 upon admission
Hemoglobin stabilized.
Toxic metabolic encephalopathy:
Improved
Off Precedex drip
lucid and cooperative
Continue monitor mental status
Coagulopathy:
Status post Kcentra and vitamin K
INR over 8 > on admission
Cirrhosis:
No nausea.
Elevated troponin:
Likely type II DC with demand ischemia
Atypical chest pain:
Received pain medication
Troponin trended down appropriately
End-stage renal disease on hemodialysis:
Hemodialysis need per nephrology
Acute hypoxic respiratory failure:
Oxygen supplementation as needed
Titrate oxygen when appropriate
Paroxysmal atrial fibrillation:
Held anticoagulation, d/w GI today, ok to resume
Cardiac monitoring
Not on rate control agents as outpatient
Chronic HFpEF:
Manage volume with dialysis
Diabetes mellitus:
Insulin as needed
s/p D5 for hypoglycemia and he had a few episodes
TOE STRIPPER diabetic consult--> recommended corrective insulin sliding scale at home if blood sugar less than 180 and possibly start low-dose before meals once diet has been advanced.
Monitor blood sugars
DVT prophylaxis:
SCDs
CODE STATUS:
Full code
Total time spent to see the patient, examine the patient on the floor, review data and lab results, discuss treatment plan with patient, showcase trimmer, nursing staff around 57 minutes
Anticipated Discharge: Within 24 hours
Subjective/Interval History
-
Date of Service: February 17, 2024
Objective Data
-
Vital Signs:
Vital Signs
Temp Pulse Resp BP Pulse Ox
98.2 F 63 18 156/67 99
02/17/24 08:14 02/17/24 09:52 02/17/24 08:14 02/17/24 09:52 02/17/24 08:14
I&O
02/16/24 02/17/24 02/18/24
06:59 06:59 06:59
Intake Total 360 / 360 1200 / 1200
Balance 360 / 360 1200 / 1200
[2024-02-17 13:59] LABS: Glucose - Point of Care 150 mg/dl (70-99)
[2024-02-17 15:40] VITALS: BP 95/51
[2024-02-17 15:50] VITALS: BP 85/52; PULSE 84
[2024-02-17] MEDS: APRESOLINE PO (16:03)
[2024-02-17] MEDS: CATAPRES PO (16:04)
[2024-02-17 17:06] LABS: Glucose - Point of Care 196 mg/dl (70-99)
[2024-02-17] MEDS: COUMADIN 3 MG PO (17:44)
[2024-02-17] MEDS: NOVOLOG FLEXPEN-LOW RESISTANCE 1 UNITS SC (17:47)
[2024-02-17] MEDS: DILAUDID 0.5 MG IV ×2 (18:30→23:21)
[2024-02-17] MEDS: LIPITOR 80 MG PO (21:27)
[2024-02-17 22:28] LABS: Glucose - Point of Care 200 mg/dl (70-99)
[2024-02-17 23:48] VITALS: BP 115/59
[2024-02-18 05:51] VITALS: BMI 23.9
[2024-02-18 06:31] LABS: INR 1.46; PT 17.8 Sec (11.4-14.6)
--- NOTE | 2024-02-18 07:15 | PN.DE.MGMTRT ---
Insulin Management
- -
02/18/2024: Diabetes Management Follow up:
58 year old male admitted on 02/07 with 4 day hx of lethargy, coffee-ground emesis and melena.
PMH: ESRD on HD, A-fib on Coumadin, HTN, GERD, IDDM. Diabetes management requested to assist with Hypoglycemia.
Reports he has been a diabetic for over 28 year and routinely follows up with Endocrine Dr. Jorge Lopez at [facility] in [place], uses free style henry glucose meter. States he was taking Tresiba but it was recently discontinued due to
recurrent Hypoglycemia. Reports taking Humalog 5 units before meals and no other diabetes medication.
Pt had recurrent episodes of hypoglycemia on 02/07 and 02/08 as low as 45, requiring D5 infusion.
His glucose improved and was initiated on low corrective insulin requiring 1-2 units of coverage for glucose range of 170 to 205.
02/11 D5 infusion was d/c'd.
02/16 Pt awake, alert, sitting up in bed, offers no complaints, able to discuss diabetes plan of care. Currently receiving HD. States he understands the importance of taking insulin prior to eating. He also states he has 'run out' of henry CGMs.
Encouraged him to call his distresser for appointment so he can resume Henry. He states he does have a working glucose monitor and test strips at home.
Dysphagia diet started on 02/12. AC NovoLog 4 units started with lunch 02/14 Premeal glucose range yesterday 111 to 200.
Patient for discharge today.
Will follow and make further insulin adjustments if needed.
Discussed with pt's nurse, she will notify me of any changes.
Diabetes History
- -
Type of Diabetes: 2 requiring insulin
Pre-Admission Diabetes Regimen
Insulin Pump Settings
IP Diabetes Regimen
02/17/24 02/17/24 02/17/24
08:58 13:57 17:04
POC Glucose 111 H 150 H 196 H
02/17/24
22:25
POC Glucose 200 H
Meal type: Dinner
Meal type: Lunch
Meal type: Breakfast
Meal type: Breakfast
Amount consumed: 100%
Amount consumed: 100%
Amount consumed: 85%
Patient Education
[2024-02-18 07:20] VITALS: BP 172/78
[2024-02-18 07:20] LABS: Glucose - Point of Care 121 mg/dl (70-99)
[2024-02-18] MEDS: NOVOLOG FLEXPEN-LOW RESISTANCE SC ×3 (07:20→16:59)
[2024-02-18] MEDS: NOVOLOG FLEXPEN 4 UNITS SC ×3 (09:12→17:12)
[2024-02-18 09:23] LABS: Carbon Dioxide 24 mmol/L (22-30); Chloride 93 mmol/L (98-107); Potassium 5.3 mmol/L (3.5-5.1); Sodium 131 mmol/L (135-145)
[2024-02-18] MEDS: RETACRIT 8000 UNITS IV (09:25)
--- NOTE | 2024-02-18 09:29 | CM ---
Addendum entered by Magy King 02/18/24 14:49:
CM spoke with HD Clinical Staff Educator and update provided regarding discharge potentially.
Addendum entered by Magy King 02/18/24 14:40:
physician now indicating that patient discharge for tomorrow. CM received call per nursing from HD. CM will attempt to call back.
Addendum entered by Magy King 02/18/24 11:51:
Physician sent CM tt that patient now asking for SNF. CM spoke with patient while on HD and patient declining SNF needs. Patient states he will have cousins to help with getting upstairs and home health from [facility]. CM reached out to physician and
will update. Nursing made aware and will also talk to patient about options.
Original Note:
[facility] fax [phone]
--- NOTE | 2024-02-18 10:45 | W.PN.NEPH.HD ---
Assessment
-
pt seen during HD
vitals stable
UF as tolerates
hb stable
AC resumed, INR 1.5
AVF functions well
adjust diet to renal and FR
d/c plan, refuses rehab
Progress Note - Hemodialysis
-
Date of Service: February 18, 2024
Duration: 30 minutes and 3 hours
Potassium Bath: 2
Calcium Bath: 2.5
Opti-Dialyzer: 160
Ultrafiltration: Other
Blood Flow: 400
Dialysate Flow: 600
Heparin: no
EPO: 8000
[2024-02-18 11:57] LABS: Glucose - Point of Care 87 mg/dl (70-99)
[2024-02-18] MEDS: COZAAR 100 MG PO (12:01)
[2024-02-18] MEDS: PROCARDIA XL (EXTENDED RELEASE) 30 MG PO (12:02)
[2024-02-18] MEDS: ALDACTONE 50 MG PO (12:02)
[2024-02-18] MEDS: CATAPRES 0.2 MG PO ×3 (12:03→20:54)
[2024-02-18] MEDS: ZOLOFT 100 MG PO (12:03)
[2024-02-18] MEDS: PROTONIX 40 MG PO ×2 (12:03→20:54)
[2024-02-18] MEDS: B COMPLEX w/VITAMIN C 1 CAPLET PO (12:03)
[2024-02-18] MEDS: APRESOLINE 100 MG PO ×2 (12:04→20:54)
--- NOTE | 2024-02-18 12:09 | PTCARENOTE ---
pt stated this AM will go to SNF d/t weakness. d/c placed. But VN in place and said to CM he will go home with family, they will assist him. This nurse verified that he refuses SNF, but states will not go home today (will appeal) states he is too
weak. Notified Dr. Rodas and CM.
[2024-02-18] MEDS: DILAUDID 0.5 MG IV (14:28)
--- NOTE | 2024-02-18 14:51 | W.PN.HOSP.TC ---
Today's Communication/Plan
-
paracentesis ( hard to get it done on same day of HD), will reach out to IR doctor.
Dc planning, hopefully we can discharge him tomorrow
Assessment / Plan
Assessment / Plan
Physical exam:
General: chronically ill looking.
HEENT: Normocephalic, Atraumatic and Moist Mucous Membranes
Respiratory: limited but clear to Auscultation; Negative Wheezes.
Cardiac: S1/S2
GI: Soft, tender epigastric area and Nondistended
Musculoskeletal: Bilateral lower extremity edema. No Clubbing, No Cyanosis
Neuro: Awake, Alert and Oriented, no gross neuro deficits
Psych: Calm
EGD:
Impression: - Mildly severe esophagitis.
- Grade I esophageal varices. No stigmata of bleeding
- Gastric erosion in the cardia with active bleeding.
Unclear if this was from endoscope trauma. Clip (MR
conditional) was placed. No gastric varices seen.
- Hematin (altered blood/wtllry-mzgdvd-yrti material)
in the stomach.
- Normal examined duodenum.
CT head:
No acute intracranial abnormality noted.
CT abd/pelvis:
1. There is increased bibasilar consolidations with new surrounding groundglass opacities and small nodular consolidations in the posterior upper lobes suspicious for multifocal pneumonia.
2. There is apparent wall thickening of the cecum and ascending colon favored to represent colitis
3. Cholelithiasis.
4. Small volume ascites.
5. Extensive atherosclerotic indications.
A/P:
# Ascites
Recent paracentesis around 5800cc drained on 01/20/24. diagnosis of cirrhosis
US Abdominal Doppler 02/09 : Patent hepatic vasculature with appropriate directional flow. Moderate diffuse abdominal ascites. No evidence for acute cholecystitis. Hepatic cirrhosis. No focal hepatic lesions.
Ascites- Paracentesis last on 01/20/24: Large-volume paracentesis (diagnostic + therapeutic) and was given albumin: fluid WBC 123 neg SBP, fluid albumin <1 and serum albumin 2.3. SAAG >1.3 c/w portal HTN
He will need a repeat as abdomen is distended again.
#Acute GI bleed:
Improved
No rectal bleeding. no overt bleeding. HGB around 9
Findings of bleeding per upper endoscopy in the setting of warfarin use.
On full liquid diet per GI
May be able to advance diet either later this evening or tomorrow
Appreciated GI consult and follow-up
Off PPI and octreotide drip
Continue IV PPI twice a day
On antiemetics as needed
Monitor hemoglobin--> 9.[address] Gamble discussed with family at bedside on 02/13 (his cousin who he lives with) -he would like to talk to social work case manager about discharge disposition. Informed RN about his request.
PT OT evaluation.
wind operations manager for discharge disposition
Sepsis due to aspiration pneumonia:
Continue IV Rocephin and might be able to switch to oral over the next 24 hours and continue oral metronidazole. Per GI: -CT A/P- 02/10/2024: showed colitis from cecum to ascending colon: added flagyl and planning finish a 5-7 day course .
WBC 19.7-->8.[address] chest abd pelvis and cxr reviewed
Blood cultures no growth
Paracentesis done and essentially ruled out SBP. Also, therapeutic paracentesis since over 6 L out and received IV albumin.
SAAG more than 1.3 consistent with portal hypertension.
MRSA colonizer.
Hypertensive urgency/hypertension:
Improved
Off Cardene drip
On his home oral regimen with holding parameters--> he is on clonidine 0.2 mg 3 times daily, spironolactone 50 mg p.o. daily, nifedipine 30 mg p.o. daily, losartan 50 mg p.o. daily, and hydralazine 75 mg p.o. 3 times daily.
Hyponatremia, mild
No confusion
# hemorrhagic shock, mild with Hypotension:
Improved
Required midodrine on 02/11 evening but none since then
#Acute blood loss anemia with hemorrhagic shock exacerbated by Coumadin Coagulopathy:
Improved
Status post 7 units blood transfusions
Threshold lower in the setting of concerns for variceal bleed and end-stage renal disease/chf to avoid hypervolemia
Initial hemoglobin 3.1 upon admission
Hemoglobin stabilized.
Toxic metabolic encephalopathy:
Improved
Off Precedex drip
lucid and cooperative
Continue monitor mental status
Coagulopathy:
Status post Kcentra and vitamin K
INR over 8 > on admission
Cirrhosis:
No nausea.
Elevated troponin:
Likely type II MD with demand ischemia
Atypical chest pain:
Received pain medication
Troponin trended down appropriately
End-stage renal disease on hemodialysis:
Hemodialysis need per nephrology
Acute hypoxic respiratory failure:
Oxygen supplementation as needed
Titrate oxygen when appropriate
Paroxysmal atrial fibrillation:
Held anticoagulation, d/w GI today, ok to resume
Cardiac monitoring
Not on rate control agents as outpatient
Chronic HFpEF:
Manage volume with dialysis
Diabetes mellitus:
Insulin as needed
s/p D5 for hypoglycemia and he had a few episodes
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
Monitor blood sugars
DVT prophylaxis:
SCDs
CODE STATUS:
Full code
Total time spent to see the patient, examine the patient on the floor, review data and lab results, discuss treatment plan with patient, social work case manager, nursing staff around 57 minutes
Anticipated Discharge: Within 24 hours
Subjective/Interval History
-
Date of Service: February 18, 2024
Objective Data
-
Labs:
Laboratory Results
02/18/24 02/18/24
05:26 08:37
PT 17.8 H
INR 1.46
Sodium 131 L
Potassium 5.3 H
Chloride 93 L
Carbon Dioxide 24
Vital Signs:
Vital Signs
Temp Pulse Resp BP Pulse Ox
98.3 F 64 16 121/67 97
02/18/24 07:20 02/18/24 07:20 02/18/24 07:20 02/18/24 12:02 02/18/24 09:40
I&O
02/17/24 02/18/24 02/19/24
06:59 06:59 06:59
Intake Total 1200 / 1200 960 / 960
Balance 1200 / 1200 960 / 960
[2024-02-18 15:46] VITALS: BP 101/51
[2024-02-18] MEDS: APRESOLINE PO (16:30)
[2024-02-18] MEDS: COUMADIN 3 MG PO (16:42)
[2024-02-18] MEDS: RENVELA 800 MG PO (16:43)
[2024-02-18 16:53] LABS: Glucose - Point of Care 123 mg/dl (70-99)
[2024-02-18] MEDS: LIPITOR 80 MG PO (20:55)
[2024-02-18 21:31] LABS: Glucose - Point of Care 94 mg/dl (70-99)
[2024-02-18 22:52] VITALS: BP 167/75
[2024-02-18] MEDS: COMPAZINE 10 MG IV (22:55)
[2024-02-18] MEDS: FLUSH (NSS) 3 FLUSH IV (22:55)
[2024-02-18] MEDS: DILAUDID 0.25 MG IV (23:59)
[2024-02-19] VITALS (8 sets, daily range): BP systolic 78–170; BP diastolic 50–80; PULSE 79; O2SAT 99; BMI 23.9
[2024-02-19] MEDS: FLUSH (NSS) 4 FLUSH IV
--- NOTE | 2024-02-19 07:28 | PN.DE.MGMTRT ---
Insulin Management
- -
02/19/2024: Diabetes Management F/U:
58 year old male admitted on 02/07 with 4 day hx of lethargy, coffee-ground emesis and melena.
PMH: ESRD on HD, A-fib on Coumadin, HTN, GERD, IDDM. Diabetes management requested to assist with Hypoglycemia.
Reports he has been a diabetic for over 28 year and routinely follows up with Endocrine Dr. Jorge Lopez at [facility] in [place], uses free style henry glucose meter. States he was taking Tresiba but it was recently discontinued due to
recurrent Hypoglycemia. Reports taking Humalog 5 units before meals and no other diabetes medication. States he has 'run out' of henry CGMs. Encouraged him to call his industrial safety and health specialist for appointment so he can resume Henry. He states he does have
a working glucose monitor and test strips at home.
Pt had recurrent episodes of hypoglycemia on 02/07 and 02/08 as low as 45, requiring D5 infusion.
His glucose improved and was initiated on low corrective insulin requiring 1-2 units of coverage for glucose range of 170 to 205.
02/11 D5 infusion was d/c'd.
Pt awake, alert, sitting up in bed, offers no complaints, able to discuss diabetes plan of care.
Dysphagia diet started on 02/12. AC NovoLog 4 units started with lunch 02/14
Premeal glucose range yesterday 87 to 123, FBG 122 this AM.
Will make no changes to current regimen. Patient for discharge today.
Will follow and make further insulin adjustments if needed.
Diabetes History
- -
Type of Diabetes: 2 requiring insulin
Pre-Admission Diabetes Regimen
Insulin Pump Settings
IP Diabetes Regimen
02/18/24 02/18/24 02/18/24
11:55 16:52 21:29
POC Glucose 87 123 H 94
Meal type: Lunch
Meal type: Breakfast
Amount consumed: 100%
Amount consumed: 95%
Patient Education
[2024-02-19 07:47] LABS: Glucose - Point of Care 122 mg/dl (70-99)
[2024-02-19] MEDS: PROTONIX 40 MG PO ×2 (07:48→20:59)
[2024-02-19] MEDS: CATAPRES 0.2 MG PO ×3 (07:48→21:00)
[2024-02-19] MEDS: ZOLOFT 100 MG PO (07:48)
[2024-02-19] MEDS: B COMPLEX w/VITAMIN C 1 CAPLET PO (07:48)
[2024-02-19] MEDS: RENVELA 800 MG PO ×3 (07:48→16:54)
[2024-02-19] MEDS: PROCARDIA XL (EXTENDED RELEASE) 30 MG PO (07:49)
[2024-02-19] MEDS: ALDACTONE 50 MG PO (07:49)
[2024-02-19] MEDS: COZAAR 100 MG PO (07:49)
[2024-02-19] MEDS: APRESOLINE 100 MG PO ×3 (07:50→21:00)
[2024-02-19] MEDS: NOVOLOG FLEXPEN-LOW RESISTANCE SC (07:51)
[2024-02-19] MEDS: NOVOLOG FLEXPEN 4 UNITS SC ×3 (07:53→16:56)
--- NOTE | 2024-02-19 09:23 | W.PN.HOSP.TC ---
Today's Communication/Plan
-
dc planning
Assessment / Plan
Assessment / Plan
Physical exam:
General: chronically ill looking.
HEENT: Normocephalic, Atraumatic and Moist Mucous Membranes
Respiratory: limited but clear to Auscultation; Negative Wheezes.
Cardiac: S1/S2
GI: Soft, tender epigastric area and Nondistended
Musculoskeletal: Bilateral lower extremity edema. No Clubbing, No Cyanosis
Neuro: Awake, Alert and Oriented, no gross neuro deficits
Psych: Calm
EGD:
Impression: - Mildly severe esophagitis.
- Grade I esophageal varices. No stigmata of bleeding
- Gastric erosion in the cardia with active bleeding.
Unclear if this was from endoscope trauma. Clip (MR
conditional) was placed. No gastric varices seen.
- Hematin (altered blood/wiiysi-ueejxu-tkju material)
in the stomach.
- Normal examined duodenum.
CT head:
No acute intracranial abnormality noted.
CT abd/pelvis:
1. There is increased bibasilar consolidations with new surrounding groundglass opacities and small nodular consolidations in the posterior upper lobes suspicious for multifocal pneumonia.
2. There is apparent wall thickening of the cecum and ascending colon favored to represent colitis
3. Cholelithiasis.
4. Small volume ascites.
5. Extensive atherosclerotic indications.
A/P:
# Ascites
Recent paracentesis around 5800cc drained on 01/20/24. diagnosis of cirrhosis
US Abdominal Doppler 02/09 : Patent hepatic vasculature with appropriate directional flow. Moderate diffuse abdominal ascites. No evidence for acute cholecystitis. Hepatic cirrhosis. No focal hepatic lesions.
Ascites- Paracentesis last on 01/20/24: Large-volume paracentesis (diagnostic + therapeutic) and was given albumin: fluid WBC 123 neg SBP, fluid albumin <1 and serum albumin 2.3. SAAG >1.3 c/w portal HTN
for thoracentesis before dc
#Acute GI bleed:
Improved
No rectal bleeding. no overt bleeding. HGB around 9
Findings of bleeding per upper endoscopy in the setting of warfarin use.
On full liquid diet per GI
May be able to advance diet either later this evening or tomorrow
Appreciated GI consult and follow-up
Off PPI and octreotide drip
Continue IV PPI twice a day
On antiemetics as needed
Monitor hemoglobin--> 9.[address] Gamble discussed with family at bedside on 02/13 (his cousin who he lives with) -he would like to talk to clinical case manager about discharge disposition. Informed RN about his request.
PT OT evaluation.
manager safe for discharge disposition
Sepsis due to aspiration pneumonia:
Continue IV Rocephin and might be able to switch to oral over the next 24 hours and continue oral metronidazole. Per GI: -CT A/P- 02/10/2024: showed colitis from cecum to ascending colon: added flagyl and planning finish a 5-7 day course .
WBC 19.7-->8.[address] chest abd pelvis and cxr reviewed
Blood cultures no growth
Paracentesis done and essentially ruled out SBP. Also, therapeutic paracentesis since over 6 L out and received IV albumin.
SAAG more than 1.3 consistent with portal hypertension.
MRSA colonizer.
Hypertensive urgency/hypertension:
Improved
Off Cardene drip
On his home oral regimen with holding parameters--> he is on clonidine 0.2 mg 3 times daily, spironolactone 50 mg p.o. daily, nifedipine 30 mg p.o. daily, losartan 50 mg p.o. daily, and hydralazine 75 mg p.o. 3 times daily.
Hyponatremia, mild
No confusion
# hemorrhagic shock, mild with Hypotension:
Improved
Required midodrine on 02/11 evening but none since then
#Acute blood loss anemia with hemorrhagic shock exacerbated by Coumadin Coagulopathy:
Improved
Status post 7 units blood transfusions
Threshold lower in the setting of concerns for variceal bleed and end-stage renal disease/chf to avoid hypervolemia
Initial hemoglobin 3.1 upon admission
Hemoglobin stabilized.
Toxic metabolic encephalopathy:
Improved
Off Precedex drip
lucid and cooperative
Continue monitor mental status
Coagulopathy:
Status post Kcentra and vitamin K
INR over 8 > on admission
Cirrhosis:
No nausea.
Elevated troponin:
Likely type II VT with demand ischemia
Atypical chest pain:
Received pain medication
Troponin trended down appropriately
End-stage renal disease on hemodialysis:
Hemodialysis need per nephrology
Acute hypoxic respiratory failure:
Oxygen supplementation as needed
Titrate oxygen when appropriate
Paroxysmal atrial fibrillation:
Held anticoagulation, d/w GI today, ok to resume
Cardiac monitoring
Not on rate control agents as outpatient
Chronic HFpEF:
Manage volume with dialysis
Diabetes mellitus:
Insulin as needed
s/p D5 for hypoglycemia and he had a few episodes
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
Monitor blood sugars
DVT prophylaxis:
SCDs
CODE STATUS:
Full code
Total time spent to see the patient, examine the patient on the floor, review data and lab results, discuss treatment plan with patient, clinical case manager, nursing staff around 57 minutes
Anticipated Discharge: Today
Subjective/Interval History
-
Date of Service: February 19, 2024
No chest pain
no sob
Had nausea last night
Objective Data
-
Vital Signs:
Vital Signs
Temp Pulse Resp BP Pulse Ox
98.1 F 78 18 131/67 99
02/19/24 08:48 02/19/24 08:48 02/19/24 08:48 02/19/24 08:48 02/19/24 08:48
I&O
02/18/24 02/19/24 02/20/24
06:59 06:59 06:59
Intake Total 960 / 960 880 / 880
Balance 960 / 960 880 / 880
[2024-02-19 10:33] LABS: Body Fluid WBC 118 /CUMM
[2024-02-19 10:34] LABS: Body Fluid Mononuclear 81.3 %; Body Fluid Polymorphonuclear 18.7 %
[2024-02-19 10:54] LABS: Body Fluid Second Tech AMA
[2024-02-19 12:16] LABS: Glucose - Point of Care 194 mg/dl (70-99)
[2024-02-19] MEDS: NOVOLOG FLEXPEN-LOW RESISTANCE 1 UNITS SC ×2 (13:17→16:56)
--- NOTE | 2024-02-19 13:36 | CM ---
Patient seen at bedside with his uncle. Patient uncle stated that he felt patient should go to SNF/rehab. Patient continues to refuse but is willing for CM to send referral to [facility]. Patient is 'thinking' about his options. Patient for
discharge but per patient not leaving until tomorrow. Patient Uncle understands that patient cannot be forced to accept placement. CM will continue to follow for discharge planning needs.
Plan;SNF vs home with family/HD
--- NOTE | 2024-02-19 14:20 | W.PN.NEPH.PH ---
Today's Communication / Plan
-
HD tomorrow
Assessment/Plan
-
Impression:
Acute GI Bleed
Acute Blood Loss Anemia
Coumadin Coagulopathy
Hyperkalemia
Metabolic Acidosis
ESRD on hemodialysis [facility]
Anemia of ESRD
Hypovolemia secondary to the above
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
Paroxysmal Atrial Fibrillation
Chronic HFpEF
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
History of bilateral pleural effusions status post thoracentesis
History of pericardial effusion status post pericardiocentesis
Coronary artery disease
Essential hypertension
DM2 with multiple microvascular complications
Hyperlipidemia
Spinal stenosis
Anxiety/depression
L radial AVF
Plan:
HD in am
transfuse prn
follow Hgb
possible d/c after dialysis
-
-
Date of Service: February 19, 2024
CC / HPI / ROS
-
Chief Complaint:
ESRD
History of Present Illness:
hgb stable
BP stable
no fever and on RA
tolerated HD yesterday
s/p LVP 4+L
Review of Systems:
no n/v
no pain
no cp or sob
Labs
-
Labs:
WBC 8.7 10^3/uL (4.8-10.8) 02/15/24 05:56
RBC 3.04 10^6/uL (4.70-6.10) L 02/15/24 05:56
Hgb 9.1 g/dL (13.0-18.0) L 02/16/24 05:41
Hct 27.9 % (39.0-52.0) L 02/16/24 05:41
Plt Count 166 10^3/uL (130-400) 02/15/24 05:56
Sodium 131 mmol/L (135-145) L 02/18/24 08:37
Potassium 5.3 mmol/L (3.5-5.1) H 02/18/24 08:37
Chloride 93 mmol/L (98-107) L 02/18/24 08:37
Carbon Dioxide 24 mmol/L (22-30) 02/18/24 08:37
BUN 28 mg/dl (9-20) H 02/15/24 05:56
Creatinine 4.5 mg/dL (0.7-1.3) H* 02/15/24 05:56
eGFR 14.26 02/15/24 05:56
Glucose 114 mg/dl (70-99) H 02/15/24 05:56
Calcium 7.8 mg/dl (8.4-10.2) L 02/15/24 05:56
Phosphorus 2.6 mg/dl (2.5-4.5) 02/12/24 05:55
Albumin 2.5 g/dl (3.5-5.0) L 02/12/24 05:55
Physical Exam
-
Vital Signs:
Vital Signs
Temp Pulse Resp BP Pulse Ox
97.6 F 79 18 113/50 99
02/19/24 10:30 02/19/24 10:30 02/19/24 10:30 02/19/24 10:30 02/19/24 10:30
--- NOTE | 2024-02-19 15:17 | CM ---
Addendum entered by Magy King 02/19/24 15:31:
[facility] will need renal information to be faxed to them, CM sent message via all scripts requesting fax number to send information. [facility] is declining patient due to patient owing money. CM will continue to follow for discharge
planning needs.
Original Note:
Patient seen at bedside and updated that [facility] does not have available bed. CM reviewed other options and patient agreed to also CM to send referrals within a 10 mile radius. Patient asking about [facility] or [facility] in [place]. CM updated physician and will send referrals to SNF options on all scripts. Cm will continue to follow for discharge planning needs.
Plan; SNF
[2024-02-19 16:48] LABS: Glucose - Point of Care 166 mg/dl (70-99)
[2024-02-19] MEDS: COUMADIN 3 MG PO (16:55)
[2024-02-19] MEDS: LIPITOR 80 MG PO (20:59)
[2024-02-19 21:18] LABS: Glucose - Point of Care 118 mg/dl (70-99)
[2024-02-19] MEDS: DILAUDID 0.25 MG IV (23:22)
[2024-02-20 06:00] VITALS: BMI 22.4
[2024-02-20 07:02] VITALS: BP 155/62
[2024-02-20 07:02] LABS: Glucose - Point of Care 97 mg/dl (70-99)
[2024-02-20 07:25] LABS: Hematocrit 29.7 % (39.0-52.0); Hemoglobin 9.9 g/dL (13.0-18.0)
[2024-02-20] MEDS: NOVOLOG FLEXPEN-LOW RESISTANCE SC ×2 (07:44→16:34)
[2024-02-20] MEDS: NOVOLOG FLEXPEN 4 UNITS SC ×3 (07:44→16:34)
[2024-02-20] MEDS: ALDACTONE 50 MG PO (07:45)
[2024-02-20] MEDS: B COMPLEX w/VITAMIN C 1 CAPLET PO (07:45)
[2024-02-20 07:46] LABS: Carbon Dioxide 26 mmol/L (22-30); Chloride 96 mmol/L (98-107); Sodium 135 mmol/L (135-145)
[2024-02-20] MEDS: PROTONIX 40 MG PO ×2 (07:46→21:35)
[2024-02-20] MEDS: APRESOLINE 100 MG PO ×3 (07:46→21:34)
[2024-02-20] MEDS: PROCARDIA XL (EXTENDED RELEASE) 30 MG PO (07:46)
[2024-02-20] MEDS: COZAAR 100 MG PO (07:46)
[2024-02-20] MEDS: CATAPRES 0.2 MG PO ×3 (07:47→21:35)
[2024-02-20] MEDS: RENVELA 800 MG PO ×3 (07:47→16:34)
[2024-02-20] MEDS: ZOLOFT 100 MG PO (07:47)
[2024-02-20] MEDS: EMLA CREAM 1 GRAM TOPICAL (11:04)
[2024-02-20 11:58] LABS: Glucose - Point of Care 182 mg/dl (70-99)
[2024-02-20] MEDS: NOVOLOG FLEXPEN-LOW RESISTANCE 1 UNITS SC (12:05)
[2024-02-20] MEDS: MANNITOL 25% 12.5 GRAMS IV ×2 (12:10→13:13)
[2024-02-20] MEDS: FLEXBUMIN 25% FOR HEMODIALYSIS 12.5 GRAMS IV ×2 (12:10→13:13)
[2024-02-20] MEDS: RETACRIT 8000 UNITS IV (12:11)
[2024-02-20] MEDS: ProAmatine 10 MG PO (12:15)
--- NOTE | 2024-02-20 12:21 | W.PN.HOSP.TC ---
Today's Communication/Plan
-
dc planning
Check INR
Assessment / Plan
Assessment / Plan
Physical exam:
General: chronically ill looking.
HEENT: Normocephalic, Atraumatic and Moist Mucous Membranes
Respiratory: limited but clear to Auscultation; Negative Wheezes.
Cardiac: S1/S2
GI: Soft, tender epigastric area and Nondistended
Musculoskeletal: Bilateral lower extremity edema. No Clubbing, No Cyanosis
Neuro: Awake, Alert and Oriented, no gross neuro deficits
Psych: Calm
EGD:
Impression: - Mildly severe esophagitis.
- Grade I esophageal varices. No stigmata of bleeding
- Gastric erosion in the cardia with active bleeding.
Unclear if this was from endoscope trauma. Clip (MR
conditional) was placed. No gastric varices seen.
- Hematin (altered blood/eagbmy-zkrapg-xsrm material)
in the stomach.
- Normal examined duodenum.
CT head:
No acute intracranial abnormality noted.
CT abd/pelvis:
1. There is increased bibasilar consolidations with new surrounding groundglass opacities and small nodular consolidations in the posterior upper lobes suspicious for multifocal pneumonia.
2. There is apparent wall thickening of the cecum and ascending colon favored to represent colitis
3. Cholelithiasis.
4. Small volume ascites.
5. Extensive atherosclerotic indications.
A/P:
# Ascites
Recent paracentesis around 5800cc drained on 01/20/24. diagnosis of cirrhosis
US Abdominal Doppler 02/09 : Patent hepatic vasculature with appropriate directional flow. Moderate diffuse abdominal ascites. No evidence for acute cholecystitis. Hepatic cirrhosis. No focal hepatic lesions.
Ascites- Paracentesis last on 01/20/24: Large-volume paracentesis (diagnostic + therapeutic) and was given albumin: fluid WBC 123 neg SBP, fluid albumin <1 and serum albumin 2.3. SAAG >1.3 c/w portal HTN
for thoracentesis before dc
#Acute GI bleed:
Improved
No rectal bleeding. no overt bleeding. HGB around 9
Findings of bleeding per upper endoscopy in the setting of warfarin use.
On full liquid diet per GI
May be able to advance diet either later this evening or tomorrow
Appreciated GI consult and follow-up
Off PPI and octreotide drip
Continue IV PPI twice a day
On antiemetics as needed
Monitor hemoglobin--> 9.[address] Gamble discussed with family at bedside on 02/13 (his cousin who he lives with) -he would like to talk to rehabilitation caseworker about discharge disposition. Informed RN about his request.
PT OT evaluation.
operations research manager for discharge disposition
Sepsis due to aspiration pneumonia:
Continue IV Rocephin and might be able to switch to oral over the next 24 hours and continue oral metronidazole. Per GI: -CT A/P- 02/10/2024: showed colitis from cecum to ascending colon: added flagyl and planning finish a 5-7 day course .
WBC 19.7-->8.[address] chest abd pelvis and cxr reviewed
Blood cultures no growth
Paracentesis done and essentially ruled out SBP. Also, therapeutic paracentesis since over 6 L out and received IV albumin.
SAAG more than 1.3 consistent with portal hypertension.
MRSA colonizer.
Hypertensive urgency/hypertension:
Improved
Off Cardene drip
On his home oral regimen with holding parameters--> he is on clonidine 0.2 mg 3 times daily, spironolactone 50 mg p.o. daily, nifedipine 30 mg p.o. daily, losartan 50 mg p.o. daily, and hydralazine 75 mg p.o. 3 times daily.
Hyponatremia, mild
No confusion
# hemorrhagic shock, mild with Hypotension:
Improved
Required midodrine on 02/11 evening but none since then
#Acute blood loss anemia with hemorrhagic shock exacerbated by Coumadin Coagulopathy:
Improved
Status post 7 units blood transfusions
Threshold lower in the setting of concerns for variceal bleed and end-stage renal disease/chf to avoid hypervolemia
Initial hemoglobin 3.1 upon admission
Hemoglobin stabilized.
Toxic metabolic encephalopathy:
Improved
Off Precedex drip
lucid and cooperative
Continue monitor mental status
Coagulopathy:
Status post Kcentra and vitamin K
INR over 8 > on admission
Cirrhosis:
No nausea.
Elevated troponin:
Likely type II AL with demand ischemia
Atypical chest pain:
Received pain medication
Troponin trended down appropriately
End-stage renal disease on hemodialysis:
Hemodialysis need per nephrology
Acute hypoxic respiratory failure:
Oxygen supplementation as needed
Titrate oxygen when appropriate
Paroxysmal atrial fibrillation:
Held anticoagulation, d/w GI today, ok to resume
Cardiac monitoring
Not on rate control agents as outpatient
Chronic HFpEF:
Manage volume with dialysis
Diabetes mellitus:
Insulin as needed
s/p D5 for hypoglycemia and he had a few episodes
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
Monitor blood sugars
DVT prophylaxis:
SCDs
CODE STATUS:
Full code
Total time spent to see the patient, examine the patient on the floor, review data and lab results, discuss treatment plan with patient, rehabilitation caseworker, nursing staff around 45 minutes
Anticipated Discharge: Today
Subjective/Interval History
-
Date of Service: February 20, 2024
No complaints
Objective Data
-
Labs:
Laboratory Results
02/20/24
06:53
Hgb 9.9 L
Hct 29.7 L
Sodium 135
Potassium 5.0
Chloride 96 L
Carbon Dioxide 26
Vital Signs:
Vital Signs
Temp Pulse Resp BP Pulse Ox
98.4 F 77 18 88/42 97
02/20/24 07:02 02/20/24 12:15 02/20/24 07:02 02/20/24 12:15 02/20/24 09:40
I&O
02/19/24 02/20/24 02/21/24
06:59 06:59 05:59
Intake Total 880 / 880 1260 / 1260
Balance 880 / 880 1260 / 1260
[2024-02-20 14:11] LABS: INR 1.71; PT 19.9 Sec (11.4-14.6)
--- NOTE | 2024-02-20 14:22 | W.PN.NEPH.HD ---
Assessment
-
Seen on HD. no complaints. vss, access ok
Progress Note - Hemodialysis
-
Date of Service: February 20, 2024
Duration: 30 minutes and 3 hours
Potassium Bath: 2
Calcium Bath: 2.5
Opti-Dialyzer: 160
Ultrafiltration: Other (no)
Blood Flow: 400
Dialysate Flow: 600
Heparin: 0
EPO: 8000 units
[2024-02-20 15:00] VITALS: BP 156/43
[2024-02-20 16:31] LABS: Glucose - Point of Care 129 mg/dl (70-99)
[2024-02-20] MEDS: COUMADIN 3 MG PO (17:16)
[2024-02-20] MEDS: DILAUDID 0.25 MG IV (17:18)
[2024-02-20 21:04] LABS: Glucose - Point of Care 167 mg/dl (70-99)
[2024-02-20] MEDS: LIPITOR 80 MG PO (21:35)
[2024-02-20 23:03] VITALS: BP 155/65
[2024-02-20] MEDS: DILAUDID 0.5 MG IV (23:07)
[2024-02-20] MEDS: FLUSH (NSS) 2 FLUSH IV (23:07)
[2024-02-21 05:57] VITALS: BMI 22.7
[2024-02-21 06:55] LABS: Glucose - Point of Care 112 mg/dl (70-99)
[2024-02-21 07:00] VITALS: BP 166/66
[2024-02-21] MEDS: NOVOLOG FLEXPEN-LOW RESISTANCE SC (07:17)
[2024-02-21 08:15] VITALS: BP 152/61
[2024-02-21] MEDS: NOVOLOG FLEXPEN 4 UNITS SC ×3 (08:38→17:32)
[2024-02-21] MEDS: ZOLOFT 100 MG PO (08:38)
[2024-02-21] MEDS: CATAPRES 0.2 MG PO ×3 (08:38→20:56)
[2024-02-21] MEDS: B COMPLEX w/VITAMIN C 1 CAPLET PO (08:38)
[2024-02-21] MEDS: APRESOLINE 100 MG PO ×3 (08:38→20:57)
[2024-02-21] MEDS: ALDACTONE 50 MG PO (08:39)
[2024-02-21] MEDS: PROCARDIA XL (EXTENDED RELEASE) 30 MG PO (08:39)
[2024-02-21] MEDS: COZAAR 100 MG PO (08:39)
[2024-02-21] MEDS: PROTONIX 40 MG PO ×2 (08:39→20:57)
[2024-02-21] MEDS: RENVELA 800 MG PO ×3 (08:39→17:32)
--- NOTE | 2024-02-21 09:29 | W.PN.NEPH.PH ---
Today's Communication / Plan
-
HD thursday
Assessment/Plan
-
Impression:
Acute GI Bleed
Acute Blood Loss Anemia
Coumadin Coagulopathy
Hyperkalemia
Metabolic Acidosis
ESRD on hemodialysis [facility], [place], operated by [facility]
Anemia of ESRD
Hypovolemia secondary to the above
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
Paroxysmal Atrial Fibrillation
Chronic HFpEF
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
History of bilateral pleural effusions status post thoracentesis
History of pericardial effusion status post pericardiocentesis
Coronary artery disease
Essential hypertension
DM2 with multiple microvascular complications
Hyperlipidemia
Spinal stenosis
Anxiety/depression
L radial AVF
Plan:
HD thursday
transfuse prn
follow Hgb
dc planning
-
-
Date of Service: February 21, 2024
CC / HPI / ROS
-
Chief Complaint:
ESRD
History of Present Illness:
hgb stable
BP stable
no fever and on RA
tolerated HD thursday
s/p LVP 4+L 02/18
Review of Systems:
no n/v
no pain
no cp or sob
Labs
-
Labs:
WBC 8.7 10^3/uL (4.8-10.8) 02/15/24 05:56
RBC 3.04 10^6/uL (4.70-6.10) L 02/15/24 05:56
Hgb 9.9 g/dL (13.0-18.0) L 02/20/24 06:53
Hct 29.7 % (39.0-52.0) L 02/20/24 06:53
Plt Count 166 10^3/uL (130-400) 02/15/24 05:56
Sodium 135 mmol/L (135-145) 02/20/24 06:53
Potassium 5.0 mmol/L (3.5-5.1) 02/20/24 06:53
Chloride 96 mmol/L (98-107) L 02/20/24 06:53
Carbon Dioxide 26 mmol/L (22-30) 02/20/24 06:53
BUN 28 mg/dl (9-20) H 02/15/24 05:56
Creatinine 4.5 mg/dL (0.7-1.3) H* 02/15/24 05:56
eGFR 14.26 02/15/24 05:56
Glucose 114 mg/dl (70-99) H 02/15/24 05:56
Calcium 7.8 mg/dl (8.4-10.2) L 02/15/24 05:56
Phosphorus 2.6 mg/dl (2.5-4.5) 02/12/24 05:55
Albumin 2.5 g/dl (3.5-5.0) L 02/12/24 05:55
Physical Exam
-
Vital Signs:
Vital Signs
Temp Pulse Resp BP Pulse Ox
97.9 F 68 18 166/66 99
02/21/24 07:00 02/21/24 07:00 02/21/24 07:00 02/21/24 08:38 02/21/24 07:00
Cardiovascular:: Regular rate and rhythm
Respiratory:: Bilateral: Coarse
Lung Excursion:: Normal
Abdomen:: Nontender and Soft
Bowel Sounds:: Normal
Extremity Edema:: +1: Bilateral:
--- NOTE | 2024-02-21 09:48 | W.PN.HOSP.TC ---
Today's Communication/Plan
-
Await SNF placement
INR in am
Continue BP medications.
Assessment / Plan
Assessment / Plan
Physical exam:
General: chronically ill looking.
HEENT: Normocephalic, Atraumatic and Moist Mucous Membranes
Respiratory: limited but clear to Auscultation; Negative Wheezes.
Cardiac: S1/S2
GI: Soft, tender epigastric area and Nondistended
Musculoskeletal: Bilateral lower extremity edema. No Clubbing, No Cyanosis
Neuro: Awake, Alert and Oriented, no gross neuro deficits
Psych: Calm
A/P:
# DC Planning
Patient wanted to go home despite our counseling and PT evaluation for SNF. Pt declined SNF. His family refused to take him home due to his complex medical problems and weakness. test center manager is working to find SNF.
# Ascites
Recent paracentesis around 5800cc drained on 01/20/24. diagnosis of cirrhosis
US Abdominal Doppler 02/09 : Patent hepatic vasculature with appropriate directional flow. Moderate diffuse abdominal ascites. No evidence for acute cholecystitis. Hepatic cirrhosis. No focal hepatic lesions.
Ascites- Paracentesis last on 01/20/24: Large-volume paracentesis (diagnostic + therapeutic) and was given albumin: fluid WBC 123 neg SBP, fluid albumin <1 and serum albumin 2.3. SAAG >1.3 c/w portal HTN
for thoracentesis before dc
#Acute GI bleed:
Improved
No rectal bleeding. no overt bleeding. HGB around 9
Findings of bleeding per upper endoscopy in the setting of warfarin use.
On regular diet now
Off PPI and octreotide drip
PPI BID orally.
On antiemetics as needed
Monitored hemoglobin
#Sepsis due to aspiration pneumonia: Resolved. Off O2.
Finished course of antibiotics.
leukocytosis resolved.
CT chest abd pelvis and cxr reviewed
Blood cultures no growth
MRSA colonizer.
# urgency/hypertension:
Resolved
Back on oral medications and dialysis( TTS)
#Hyponatremia, mild
No confusion
# hemorrhagic shock, mild with Hypotension:
Resolved.
#Acute blood loss anemia with hemorrhagic shock exacerbated by Coumadin Coagulopathy:
HGB stable around 9
Status post 7 units blood transfusions
Initial hemoglobin 3.1 upon admission
# Toxic metabolic encephalopathy:
resolved. AAO X3
Off Precedex drip
lucid and cooperative
# Coagulopathy:
Status post Kcentra and vitamin K
INR over 8 > on admission, resumed Coumadin
# Liver Cirrhosis:
No nausea.
# Type II RI with demand ischemia
No chest pain
Atypical chest pain:
Received pain medication
Troponin trended down appropriately
End-stage renal disease on hemodialysis:
Hemodialysis need per nephrology
Acute hypoxic respiratory failure:
Resolved.
Paroxysmal atrial fibrillation:
Held anticoagulation, d/w GI , ok to resume.
Cardiac monitoring
Not on rate control agents as outpatient
Chronic HFpEF:
Manage volume with dialysis
Diabetes mellitus:
ISS
Insulin AC at 4 units
#DVT prophylaxis:
Back on Coumadin
CODE STATUS:
Full code
Total time spent to see the patient, examine the patient on the floor, review data and lab results, discuss treatment plan with patient, case management social worker, nursing staff around 45 minutes
Anticipated Discharge: Today
Subjective/Interval History
-
Date of Service: February 21, 2024
No complaints, denies pain or sob
No chest pain
await placement
Objective Data
-
Vital Signs:
Vital Signs
Temp Pulse Resp BP Pulse Ox
97.9 F 68 18 166/66 99
02/21/24 07:00 02/21/24 07:00 02/21/24 07:00 02/21/24 08:38 02/21/24 07:00
I&O
02/20/24 02/21/24 02/22/24
07:59 06:59 06:59
Intake Total
Output Total
Balance
--- NOTE | 2024-02-21 11:33 | CM ---
CM following re: d/c planning.
D/c plan is for SNF placement. Pt will require SNF with HD on site.
At this time, [facility], [facility] and [facility] have expressed interest.
SNFs requesting HD information for chair set up. Flow sheets, renal notes, labs all sent electronically.
Awaiting acceptance for SNF/HD combo. After this, auth is required prior to transfer.
NPI info requested and will begin auth once bed/chair offered.
D/c order remains, MD updated as to barriers and process.
Next HD at on 02/22.
Goal: SNF with HD, pending auth.
[2024-02-21 12:00] LABS: Glucose - Point of Care 183 mg/dl (70-99)
[2024-02-21] MEDS: NOVOLOG FLEXPEN-LOW RESISTANCE 1 UNITS SC ×2 (12:55→17:32)
[2024-02-21 15:00] VITALS: BP 121/60
[2024-02-21] MEDS: DILAUDID 0.5 MG IV ×2 (15:29→20:56)
[2024-02-21 16:59] LABS: Glucose - Point of Care 165 mg/dl (70-99)
[2024-02-21] MEDS: COUMADIN 3 MG PO (17:31)
[2024-02-21] MEDS: LIPITOR 80 MG PO (20:56)
[2024-02-21 21:14] LABS: Glucose - Point of Care 139 mg/dl (70-99)
[2024-02-21] MEDS: TYLENOL 500 MG PO (23:13)
[2024-02-21 23:15] VITALS: BP 155/62
[2024-02-22] MEDS: DILAUDID 0.25 MG IV (01:32)
[2024-02-22 05:28] VITALS: BMI 22.9
--- NOTE | 2024-02-22 07:00 | PN.DE.MGMTRT ---
Insulin Management
- -
02/22/2024: Diabetes Management F/U:
58 year old male admitted on 02/07 with 4 day hx of lethargy, coffee-ground emesis and melena.
PMH: ESRD on HD, A-fib on Coumadin, HTN, GERD, IDDM. Diabetes management requested to assist with Hypoglycemia.
Reports he has been a diabetic for over 28 year and routinely follows up with Endocrine Dr. Jorge Lopez at [facility] in [place], uses free style henry glucose meter. States he was taking Tresiba but it was recently discontinued due to
recurrent Hypoglycemia. Reports taking Humalog 5 units before meals and no other diabetes medication. States he has 'run out' of henry CGMs. Encouraged him to call his mechanical engineering advisor for appointment so he can resume Henry. He states he does have
a working glucose monitor and test strips at home.
Pt had recurrent episodes of hypoglycemia on 02/07 and 02/08 as low as 45, requiring D5 infusion.
His glucose improved and was initiated on low corrective insulin requiring 1-2 units of coverage for glucose range of 170 to 205.
02/11 D5 infusion was d/c'd.
Pt awake, alert, sitting up in bed, offers no complaints, able to discuss diabetes plan of care.
Dysphagia diet started on 02/12. AC NovoLog 4 units started with lunch 02/14
Premeal glucose range 112 to 183, FBG 129 this AM.
Will make no changes to current regimen. Patient for discharge today.
Will follow and make further insulin adjustments if needed.
Diabetes History
- -
Type of Diabetes: 2 requiring insulin
Pre-Admission Diabetes Regimen
Insulin Pump Settings
IP Diabetes Regimen
02/21/24 02/21/24 02/21/24
11:58 16:58 21:12
POC Glucose 183 H 165 H 139 H
Meal type: Dinner
Meal type: Lunch
Meal type: Breakfast
Amount consumed: 100%
Amount consumed: 90%
Amount consumed: 100%
Patient Education
[2024-02-22 07:18] LABS: Glucose - Point of Care 129 mg/dl (70-99)
[2024-02-22] MEDS: NOVOLOG FLEXPEN-LOW RESISTANCE SC ×2 (07:18→16:46)
[2024-02-22 08:05] VITALS: BP 171/68
[2024-02-22] MEDS: RENVELA 800 MG PO ×3 (08:17→16:46)
[2024-02-22] MEDS: ALDACTONE 50 MG PO (08:17)
[2024-02-22] MEDS: PROCARDIA XL (EXTENDED RELEASE) 30 MG PO (08:17)
[2024-02-22] MEDS: B COMPLEX w/VITAMIN C 1 CAPLET PO (08:17)
[2024-02-22] MEDS: PROTONIX 40 MG PO ×2 (08:17→21:16)
[2024-02-22] MEDS: CATAPRES 0.2 MG PO ×3 (08:17→21:16)
[2024-02-22] MEDS: NOVOLOG FLEXPEN 4 UNITS SC ×3 (08:17→17:18)
[2024-02-22] MEDS: APRESOLINE 100 MG PO ×3 (08:18→21:16)
[2024-02-22] MEDS: ZOLOFT 100 MG PO (08:18)
[2024-02-22] MEDS: COZAAR 100 MG PO (08:18)
--- NOTE | 2024-02-22 08:44 | W.PN.HOSP.TC ---
Today's Communication/Plan
-
Redose warfarin. Restart narcotics. Bowel regimen. Monitor hemoglobin & INR
Assessment / Plan
Assessment / Plan
Physical exam:
General: chronically ill looking.
HEENT: Normocephalic, Atraumatic and Moist Mucous Membranes
Respiratory: limited but clear to Auscultation; Negative Wheezes.
Cardiac: S1/S2
GI: Soft, tender epigastric area and Nondistended
Musculoskeletal: Bilateral lower extremity edema. No Clubbing, No Cyanosis
Neuro: Awake, Alert and Oriented, no gross neuro deficits
Psych: Calm
A/P:
#Acute GI bleed:
Improved
Back to warfarin-INR 1.93 today
Decrease warfarin to 2 mg nightly
Check hemoglobin and INR in a.m.
#Chronic pain with narcotic dependence
I reviewed his PDMP and he has been on chronic narcotics up until November 2023
He has been off narcotics while hospitalized but has received some of them intermittently.
Will restart oxycodone but needs to follow-up and use judiciously
Bowel regimen
#End-stage renal disease on hemodialysis:
Hemodialysis need per nephrology--> plan for HD in a.m.
# Ascites
Recent paracentesis around 5800cc drained on 01/20/24. diagnosis of cirrhosis
US Abdominal Doppler 02/09 : Patent hepatic vasculature with appropriate directional flow. Moderate diffuse abdominal ascites. No evidence for acute cholecystitis. Hepatic cirrhosis. No focal hepatic lesions.
Ascites- Paracentesis last on 01/20/24: Large-volume paracentesis (diagnostic + therapeutic) and was given albumin: fluid WBC 123 neg SBP, fluid albumin <1 and serum albumin 2.3. SAAG >1.3 c/w portal HTN
for thoracentesis before dc
No rectal bleeding. no overt bleeding. HGB around 9
Findings of bleeding per upper endoscopy in the setting of warfarin use.
On regular diet now
Off PPI and octreotide drip
PPI BID orally.
On antiemetics as needed
Monitored hemoglobin
#Sepsis due to aspiration pneumonia: Resolved. Off O2.
Finished course of antibiotics.
leukocytosis resolved.
CT chest abd pelvis and cxr reviewed
Blood cultures no growth
MRSA colonizer.
# urgency/hypertension:
Resolved
Back on oral medications and dialysis( TTS)
#Hyponatremia, mild
No confusion
# hemorrhagic shock, mild with Hypotension:
Resolved.
#Acute blood loss anemia with hemorrhagic shock exacerbated by Coumadin Coagulopathy:
HGB stable around 9
Status post 7 units blood transfusions
Initial hemoglobin 3.1 upon admission
# Toxic metabolic encephalopathy:
resolved. AAO X3
Off Precedex drip
lucid and cooperative
# Coagulopathy:
Status post Kcentra and vitamin K
INR over 8 > on admission, resumed Coumadin
# Liver Cirrhosis:
No nausea.
# Type II MD with demand ischemia
No chest pain
Atypical chest pain:
Received pain medication
Troponin trended down appropriately
Acute hypoxic respiratory failure:
Resolved.
Paroxysmal atrial fibrillation:
Held anticoagulation, d/w GI , ok to resume.
Cardiac monitoring
Not on rate control agents as outpatient
Chronic HFpEF:
Manage volume with dialysis
Diabetes mellitus:
ISS
Insulin AC at 4 units
#DVT prophylaxis:
Back on Coumadin
CODE STATUS:
Full code
Anticipated Discharge: Within 24 hours
Subjective/Interval History
-
Date of Service: February 22, 2024
Patient complains of pain from his back and joint. He tells me he has been taking narcotics for quite some time and sees pain clinic as outpatient. No active bleeding.
Objective Data
-
Labs:
Laboratory Results
02/22/24
06:00
PT Pending
INR Pending
Vital Signs:
Vital Signs
Temp Pulse Resp BP Pulse Ox
97.7 F 64 17 171/68 100
02/22/24 08:05 02/22/24 08:05 02/22/24 08:05 02/22/24 08:17 02/22/24 08:05
I&O
02/21/24 02/22/24 02/23/24
06:59 06:59 06:59
Intake Total 720 / 720
Output Total
Balance 705 / 705
--- NOTE | 2024-02-22 08:45 | W.PN.NEPH.PH ---
Today's Communication / Plan
-
Dialysis tomorrow
Assessment/Plan
-
Impression:
Acute GI Bleed
Acute Blood Loss Anemia
Coumadin Coagulopathy
Hyperkalemia
Metabolic Acidosis
ESRD on hemodialysis [facility]
Anemia of ESRD
Hypovolemia secondary to the above
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
Paroxysmal Atrial Fibrillation
Chronic HFpEF
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
History of bilateral pleural effusions status post thoracentesis
History of pericardial effusion status post pericardiocentesis
Coronary artery disease
Essential hypertension
DM2 with multiple microvascular complications
Hyperlipidemia
Spinal stenosis
Anxiety/depression
L radial AVF
Plan:
HD thursday, orders provided
transfuse prn
follow Hgb
dc planning
-
-
Date of Service: February 22, 2024
CC / HPI / ROS
-
Chief Complaint:
ESRD
History of Present Illness:
hgb stable
BP elevated
no fever and on RA
tolerated HD thursday
s/p LVP 4+L 02/18
Review of Systems:
no n/v
no pain
no cp or sob
Labs
-
Labs:
WBC 8.7 10^3/uL (4.8-10.8) 02/15/24 05:56
RBC 3.04 10^6/uL (4.70-6.10) L 02/15/24 05:56
Hgb 9.9 g/dL (13.0-18.0) L 02/20/24 06:53
Hct 29.7 % (39.0-52.0) L 02/20/24 06:53
Plt Count 166 10^3/uL (130-400) 02/15/24 05:56
Sodium 135 mmol/L (135-145) 02/20/24 06:53
Potassium 5.0 mmol/L (3.5-5.1) 02/20/24 06:53
Chloride 96 mmol/L (98-107) L 02/20/24 06:53
Carbon Dioxide 26 mmol/L (22-30) 02/20/24 06:53
BUN 28 mg/dl (9-20) H 02/15/24 05:56
Creatinine 4.5 mg/dL (0.7-1.3) H* 02/15/24 05:56
eGFR 14.26 02/15/24 05:56
Glucose 114 mg/dl (70-99) H 02/15/24 05:56
Calcium 7.8 mg/dl (8.4-10.2) L 02/15/24 05:56
Phosphorus 2.6 mg/dl (2.5-4.5) 02/12/24 05:55
Albumin 2.5 g/dl (3.5-5.0) L 02/12/24 05:55
Physical Exam
-
Vital Signs:
Vital Signs
Temp Pulse Resp BP Pulse Ox
97.7 F 64 17 171/68 100
02/22/24 08:05 02/22/24 08:05 02/22/24 08:05 02/22/24 08:17 02/22/24 08:05
Cardiovascular:: Regular rate and rhythm
Respiratory:: Bilateral: Coarse
Lung Excursion:: Normal
Abdomen:: Nontender and Soft
Bowel Sounds:: Normal
Extremity Edema:: +1: Bilateral:
[2024-02-22 09:53] LABS: INR 1.93; PT 21.9 Sec (11.4-14.6)
[2024-02-22 10:10] VITALS: BP 155/69
[2024-02-22] MEDS: DILAUDID 0.5 MG IV (10:33)
--- NOTE | 2024-02-22 10:33 | CM ---
Addendum entered by Kat Tobin 02/22/24 16:00:
Additional clinicals, chest x-ray report and labs sent in [facility]
SNF when bed obtained
Original Note:
Pt for SNF with HD
Spoke with María Elena swain [place] - will review updates/referral
Spoke with Huseyin at [facility] - requested for updates/referral be reviewed
Will need auth
Plan - SNF when bed obtained
[2024-02-22 12:39] LABS: Glucose - Point of Care 171 mg/dl (70-99)
[2024-02-22] MEDS: NOVOLOG FLEXPEN-LOW RESISTANCE 1 UNITS SC (12:57)
[2024-02-22 14:10] VITALS: BP 107/49; BP 99/45; BP 99/50; PULSE 60; PULSE 68; O2SAT 100
[2024-02-22] MEDS: ROXICODONE 10 MG PO (14:47)
[2024-02-22 16:00] VITALS: BP 118/50
[2024-02-22 16:43] LABS: Glucose - Point of Care 121 mg/dl (70-99)
[2024-02-22] MEDS: COUMADIN 2 MG PO (17:18)
[2024-02-22 21:08] LABS: Glucose - Point of Care 146 mg/dl (70-99)
[2024-02-22] MEDS: LIPITOR 80 MG PO (21:16)
[2024-02-22] MEDS: TYLENOL 500 MG PO (22:28)
[2024-02-22] MEDS: ROXICODONE 5 MG PO (22:28)
[2024-02-22 23:31] VITALS: BP 156/68
[2024-02-23 06:00] VITALS: BMI 23.0
--- NOTE | 2024-02-23 07:01 | PN.DE.MGMTRT ---
Insulin Management
- -
02/23/2024: Diabetes Management Follow up:
58 year old male admitted on 02/07 with 4 day hx of lethargy, coffee-ground emesis and melena.
PMH: ESRD on HD, A-fib on Coumadin, HTN, GERD, IDDM. Diabetes management requested to assist with Hypoglycemia.
Reports he has been a diabetic for over 28 year and routinely follows up with Endocrine Dr. Jorge Lopez at [facility] in [place], uses free style henry glucose meter. States he was taking Tresiba but it was recently discontinued due to
recurrent Hypoglycemia. Reports taking Humalog 5 units before meals and no other diabetes medication. States he has 'run out' of henry CGMs. Encouraged him to call his staffing director for appointment so he can resume Henry. He states he does have
a working glucose monitor and test strips at home.
Pt had recurrent episodes of hypoglycemia on 02/07 and 02/08 as low as 45, requiring D5 infusion.
His glucose improved and was initiated on low corrective insulin requiring 1-2 units of coverage for glucose range of 170 to 205.
02/11 D5 infusion was d/c'd.
Pt awake, alert, sitting up in bed, offers no complaints, able to discuss diabetes plan of care.
Dysphagia diet started on 02/12. AC NovoLog 4 units started with lunch 02/14
Premeal glucose range 121 to 171, Fasting glucose 108 this AM.
Will make no changes to current regimen. Patient for discharge today.
Will follow and make further insulin adjustments if needed.
Diabetes History
- -
Type of Diabetes: 2
Pre-Admission Diabetes Regimen
Insulin Pump Settings
IP Diabetes Regimen
02/22/24 02/22/24 02/22/24
07:16 12:37 16:42
POC Glucose 129 H 171 H 121 H
02/22/24
21:06
POC Glucose 146 H
Meal type: Dinner
Meal type: Lunch
Meal type: Breakfast
Amount consumed: 100%
Amount consumed: 100%
Amount consumed: 100%
Patient Education
[2024-02-23 07:05] VITALS: BP 179/72
[2024-02-23 07:07] LABS: Glucose - Point of Care 108 mg/dl (70-99)
[2024-02-23] MEDS: NOVOLOG FLEXPEN-LOW RESISTANCE SC ×3 (07:15→17:22)
[2024-02-23 07:52] LABS: Hematocrit 28.6 % (39.0-52.0); Hemoglobin 9.3 g/dL (13.0-18.0); Mean Corp Hgb Conc. 32.5 g/dL (33.0-37.0); Mean Corpuscular Hgb 30.5 pg (27.0-31.0); Mean Corpuscular Volume 93.8 fL (80.0-94.0); Mean Platelet Volume 9.9 fL (7.4-10.4); Platelet Count 294 10^3/uL (130-400); Red Blood Cell Count 3.05 10^6/uL (4.70-6.10); Red Cell Dist. Width 16.3 % (11.5-14.5); White Blood Cell Count 7.3 10^3/uL (4.8-10.8)
[2024-02-23 08:00] LABS: INR 1.89; PT 21.5 Sec (11.4-14.6)
--- NOTE | 2024-02-23 08:21 | W.PN.HOSP.TC ---
Today's Communication/Plan
-
Discharge planning in progress
Assessment / Plan
Assessment / Plan
Physical exam:
General: chronically ill looking.
HEENT: Normocephalic, Atraumatic and Moist Mucous Membranes
Respiratory: limited but clear to Auscultation; Negative Wheezes.
Cardiac: S1/S2
GI: Soft, tender epigastric area and Nondistended
Musculoskeletal: Bilateral lower extremity edema. No Clubbing, No Cyanosis
Neuro: Awake, Alert and Oriented, no gross neuro deficits
Psych: Calm
A/P:
#Acute GI bleed:
Improved
Back to warfarin-INR 1.89 today
Increase warfarin to 3 mg nightly
Check hemoglobin and INR in a.m. or outpatient
#Chronic pain with narcotic dependence
I reviewed his PDMP on 02/21 and he has been on chronic narcotics up until November 2023
He has been off narcotics while hospitalized but has received some of them intermittently.
Will restart oxycodone but needs to follow-up and use judiciously
Bowel regimen
#End-stage renal disease on hemodialysis:
Hemodialysis need per nephrology--> plan for HD today
#Hyperkalemia
Hemodialysis will take care of
In the meantime hold spironolactone but may be resume upon discharge-discussed with nephrology today 02/22
Continue ARB
# Ascites
Recent paracentesis around 5800cc drained on 01/20/24. diagnosis of cirrhosis
US Abdominal Doppler 02/09 : Patent hepatic vasculature with appropriate directional flow. Moderate diffuse abdominal ascites. No evidence for acute cholecystitis. Hepatic cirrhosis. No focal hepatic lesions.
Ascites- Paracentesis last on 01/20/24: Large-volume paracentesis (diagnostic + therapeutic) and was given albumin: fluid WBC 123 neg SBP, fluid albumin <1 and serum albumin 2.3. SAAG >1.3 c/w portal HTN
for thoracentesis before dc
No rectal bleeding. no overt bleeding. HGB around 9
Findings of bleeding per upper endoscopy in the setting of warfarin use.
On regular diet now
Off PPI and octreotide drip
PPI BID orally.
On antiemetics as needed
Monitored hemoglobin
#Sepsis due to aspiration pneumonia: Resolved. Off O2.
Finished course of antibiotics.
leukocytosis resolved.
CT chest abd pelvis and cxr reviewed
Blood cultures no growth
MRSA colonizer.
# urgency/hypertension:
Resolved
Back on oral medications and dialysis( TTS)
#Hyponatremia, mild
No confusion
# hemorrhagic shock, mild with Hypotension:
Resolved.
#Acute blood loss anemia with hemorrhagic shock exacerbated by Coumadin Coagulopathy:
HGB stable around 9
Status post 7 units blood transfusions
Initial hemoglobin 3.1 upon admission
# Toxic metabolic encephalopathy:
resolved. AAO X3
Off Precedex drip
lucid and cooperative
# Coagulopathy:
Status post Kcentra and vitamin K
INR over 8 > on admission, resumed Coumadin
# Liver Cirrhosis:
No nausea.
# Type II MD with demand ischemia
No chest pain
Atypical chest pain:
Received pain medication
Troponin trended down appropriately
Acute hypoxic respiratory failure:
Resolved.
Paroxysmal atrial fibrillation:
Held anticoagulation, d/w GI , ok to resume.
Cardiac monitoring
Not on rate control agents as outpatient
Chronic HFpEF:
Manage volume with dialysis
Diabetes mellitus:
ISS
Insulin AC at 4 units
Discussed with diabetic BROACHER today on 02/22
#DVT prophylaxis:
Back on Coumadin
CODE STATUS:
Full code
Anticipated Discharge: 24 - 48 hours
Subjective/Interval History
-
Date of Service: February 23, 2024
Denies hematemesis or bright blood per rectum. Afebrile
Objective Data
-
Labs:
Laboratory Results
02/23/24
05:45
WBC 7.3
Hgb 9.3 L
Hct 28.6 L
Plt Count 294
PT 21.5 H
INR 1.89
Sodium Pending
Potassium Pending
Chloride Pending
Carbon Dioxide Pending
BUN Pending
Creatinine Pending
Glucose Pending
Calcium Pending
Vital Signs:
Vital Signs
Temp Pulse Resp BP Pulse Ox
97.6 F 72 17 156/68 98
02/22/24 23:31 02/22/24 23:31 02/22/24 23:31 02/22/24 23:31 02/23/24 00:10
I&O
02/22/24 02/23/24 02/24/24
06:59 06:59 06:59
Intake Total 720 / 720 900 / 900
Output Total 15 / 15 0 / 0
Balance 705 / 705 900 / 900
[2024-02-23] MEDS: RENVELA 800 MG PO ×3 (08:39→17:27)
[2024-02-23] MEDS: ZOLOFT 100 MG PO (08:39)
[2024-02-23] MEDS: NOVOLOG FLEXPEN 4 UNITS SC ×3 (08:39→17:27)
[2024-02-23] MEDS: B COMPLEX w/VITAMIN C 1 CAPLET PO (08:39)
[2024-02-23] MEDS: PROTONIX 40 MG PO ×2 (08:39→19:36)
[2024-02-23 08:42] VITALS: BP 131/66
[2024-02-23] MEDS: CATAPRES PO (08:50)
[2024-02-23] MEDS: APRESOLINE PO (08:50)
[2024-02-23] MEDS: ALDACTONE PO (08:50)
[2024-02-23] MEDS: COZAAR PO (08:50)
[2024-02-23] MEDS: PROCARDIA XL (EXTENDED RELEASE) PO (08:50)
[2024-02-23 08:52] LABS: Blood Urea Nitrogen 45 mg/dl (9-20); Carbon Dioxide 27 mmol/L (22-30); Chloride 95 mmol/L (98-107); Estimated Creatinine Clearance 14 ml/min; Glucose 101 mg/dl (70-99); Potassium 5.6 mmol/L (3.5-5.1); Sodium 135 mmol/L (135-145)
[2024-02-23] MEDS: RETACRIT 10000 UNITS IV (09:20)
--- NOTE | 2024-02-23 09:38 | W.PN.NEPH.HD ---
Assessment
-
Patient seen on Hd
sbp 119 at current u/f
Progress Note - Hemodialysis
-
Date of Service: February 23, 2024
Duration: 30 minutes and 3 hours
Potassium Bath: 2
Calcium Bath: 2.5
Opti-Dialyzer: 160
Ultrafiltration: Other (2 kg to)
Blood Flow: 400
Dialysate Flow: 600
Heparin: none
EPO: 10K
[2024-02-23] MEDS: ROXICODONE 5 MG PO ×2 (10:48→22:06)
--- NOTE | 2024-02-23 12:09 | CM ---
Reviewed the chart notes. Per [facility], [facility] and [facility] are willing to accept the patient. CM continues to be available to patient/family and is monitoring medical plan for needs at discharge.
Plan: Discharge to SNF/rehab once medically stable. Precert will be required.
[2024-02-23 12:21] LABS: Glucose - Point of Care 113 mg/dl (70-99)
[2024-02-23 15:00] VITALS: BP 174/74
[2024-02-23] MEDS: APRESOLINE 100 MG PO ×2 (16:03→22:07)
[2024-02-23] MEDS: CATAPRES 0.2 MG PO ×2 (16:04→22:08)
[2024-02-23] MEDS: DILAUDID 1 MG IV (16:44)
[2024-02-23 17:06] LABS: Glucose - Point of Care 127 mg/dl (70-99)
[2024-02-23] MEDS: COUMADIN 3 MG PO (17:27)
[2024-02-23 17:29] VITALS: BP 156/66
[2024-02-23 21:17] LABS: Glucose - Point of Care 142 mg/dl (70-99)
[2024-02-23] MEDS: LIPITOR 80 MG PO (22:08)
[2024-02-23 23:00] VITALS: BP 152/66
[2024-02-24 06:00] VITALS: BMI 22.9
[2024-02-24 07:00] VITALS: BP 167/63
[2024-02-24 07:03] LABS: Glucose - Point of Care 100 mg/dl (70-99)
--- NOTE | 2024-02-24 07:07 | PN.DE.MGMTRT ---
Insulin Management
- -
02/24/2024: Diabetes Management Follow up:
58 year old male admitted on 02/07 with 4 day hx of lethargy, coffee-ground emesis and melena.
PMH: ESRD on HD, A-fib on Coumadin, HTN, GERD, IDDM. Diabetes management requested to assist with Hypoglycemia.
Reports he has been a diabetic for over 28 year and routinely follows up with Endocrine Dr. Jorge Lopez at [facility] in [place], uses free style henry glucose meter. States he was taking Tresiba but it was recently discontinued due to
recurrent Hypoglycemia. Reports taking Humalog 5 units before meals and no other diabetes medication. States he has 'run out' of henry CGMs. Encouraged him to call his social contact worker for appointment so he can resume Henry. He states he does have
a working glucose monitor and test strips at home.
Pt had recurrent episodes of hypoglycemia on 02/07 and 02/08 as low as 45, requiring D5 infusion.
His glucose improved and was initiated on low corrective insulin requiring 1-2 units of coverage for glucose range of 170 to 205.
02/11 D5 infusion was d/c'd.
Pt awake, alert, sitting up in bed, offers no complaints, able to discuss diabetes plan of care.
Dysphagia diet started on 02/12. AC NovoLog 4 units started with lunch 02/14
02/22 Glucose range 108 to 142.
02/23 Fasting glucose 100 this AM.
Will make no changes to current regimen. Patient for discharge today.
Will follow and make further insulin adjustments if needed.
Diabetes History
- -
Type of Diabetes: 2
Pre-Admission Diabetes Regimen
02/23/24
05:45
Creatinine 5.9 H*
Insulin Pump Settings
IP Diabetes Regimen
02/23/24 02/23/24 02/23/24
05:45 07:06 12:20
Glucose 101 H
POC Glucose 108 H 113 H
11/09/1002/23/24 02/24/24
17:05 21:16 07:02
Glucose
POC Glucose 127 H 142 H 100 H
Meal type: Lunch
Meal type: Breakfast
Amount consumed: 100%
Amount consumed: 100%
Patient Education
[2024-02-24 07:12] LABS: INR 1.73; PT 20.1 Sec (11.4-14.6)
[2024-02-24 07:13] LABS: Hematocrit 30.4 % (39.0-52.0); Hemoglobin 9.8 g/dL (13.0-18.0); Mean Corp Hgb Conc. 32.2 g/dL (33.0-37.0); Mean Platelet Volume 9.5 fL (7.4-10.4); Platelet Count 279 10^3/uL (130-400); Red Blood Cell Count 3.27 10^6/uL (4.70-6.10); Red Cell Dist. Width 16.4 % (11.5-14.5); White Blood Cell Count 6.2 10^3/uL (4.8-10.8)
[2024-02-24] MEDS: NOVOLOG FLEXPEN-LOW RESISTANCE SC (07:14)
[2024-02-24 07:34] LABS: Blood Urea Nitrogen 28 mg/dl (9-20); Calcium 8.3 mg/dl (8.4-10.2); Carbon Dioxide 29 mmol/L (22-30); Chloride 96 mmol/L (98-107); Estimated Creatinine Clearance 20 ml/min; Glucose 97 mg/dl (70-99); Potassium 4.9 mmol/L (3.5-5.1); Sodium 135 mmol/L (135-145); eGFR 15.49
[2024-02-24] MEDS: APRESOLINE 100 MG PO ×2 (08:13→22:04)
[2024-02-24] MEDS: NOVOLOG FLEXPEN 4 UNITS SC ×3 (08:13→17:01)
[2024-02-24] MEDS: B COMPLEX w/VITAMIN C 1 CAPLET PO (08:13)
[2024-02-24] MEDS: PROCARDIA XL (EXTENDED RELEASE) 30 MG PO (08:13)
[2024-02-24] MEDS: PROTONIX 40 MG PO ×2 (08:13→20:46)
[2024-02-24] MEDS: CATAPRES 0.2 MG PO ×3 (08:13→22:04)
[2024-02-24] MEDS: ZOLOFT 100 MG PO (08:13)
[2024-02-24] MEDS: RENVELA 800 MG PO ×3 (08:13→17:00)
[2024-02-24] MEDS: COZAAR 100 MG PO (08:14)
--- NOTE | 2024-02-24 08:19 | W.PN.HOSP.TC ---
Today's Communication/Plan
-
Discharge planning in progress.
Assessment / Plan
Assessment / Plan
Physical exam:
General: chronically ill looking.
HEENT: Normocephalic, Atraumatic and Moist Mucous Membranes
Respiratory: limited but clear to Auscultation; Negative Wheezes.
Cardiac: S1/S2
GI: Soft, tender epigastric area and Nondistended
Musculoskeletal: Bilateral lower extremity edema. No Clubbing, No Cyanosis
Neuro: Awake, Alert and Oriented, no gross neuro deficits
Psych: Calm
A/P:
#Acute GI bleed:
Improved
Warfarin-INR 1.73 today
Warfarin 3 mg nightly
Hb 9.8
Check hemoglobin and INR in a.m. or outpatient
Medically stable for discharge--> embedded case manager for discharge disposition
#Chronic pain with narcotic dependence
I reviewed his PDMP on 02/21 and he has been on chronic narcotics up until November 2023
He has been off narcotics while hospitalized but has received some of them intermittently.
Will restart oxycodone but needs to follow-up and use judiciously
Bowel regimen
#End-stage renal disease on hemodialysis:
Hemodialysis need per nephrology--> plan for HD today
#Hyperkalemia
Hemodialysis will take care of
In the meantime hold spironolactone but may be resume upon discharge-discussed with nephrology today 02/22
Continue ARB
# Ascites
Recent paracentesis around 5800cc drained on 01/20/24. diagnosis of cirrhosis
US Abdominal Doppler 02/09 : Patent hepatic vasculature with appropriate directional flow. Moderate diffuse abdominal ascites. No evidence for acute cholecystitis. Hepatic cirrhosis. No focal hepatic lesions.
Ascites- Paracentesis last on 01/20/24: Large-volume paracentesis (diagnostic + therapeutic) and was given albumin: fluid WBC 123 neg SBP, fluid albumin <1 and serum albumin 2.3. SAAG >1.3 c/w portal HTN
for thoracentesis before dc
No rectal bleeding. no overt bleeding. HGB around 9
Findings of bleeding per upper endoscopy in the setting of warfarin use.
On regular diet now
Off PPI and octreotide drip
PPI BID orally.
On antiemetics as needed
Monitored hemoglobin
#Sepsis due to aspiration pneumonia: Resolved. Off O2.
Finished course of antibiotics.
leukocytosis resolved.
CT chest abd pelvis and cxr reviewed
Blood cultures no growth
MRSA colonizer.
# urgency/hypertension:
Resolved
Back on oral medications and dialysis( TTS)
#Hyponatremia, mild
No confusion
# hemorrhagic shock, mild with Hypotension:
Resolved.
#Acute blood loss anemia with hemorrhagic shock exacerbated by Coumadin Coagulopathy:
HGB stable around 9
Status post 7 units blood transfusions
Initial hemoglobin 3.1 upon admission
# Toxic metabolic encephalopathy:
resolved. AAO X3
Off Precedex drip
lucid and cooperative
# Coagulopathy:
Status post Kcentra and vitamin K
INR over 8 > on admission, resumed Coumadin
# Liver Cirrhosis:
No nausea.
# Type II [place] with demand ischemia
No chest pain
Atypical chest pain:
Received pain medication
Troponin trended down appropriately
Acute hypoxic respiratory failure:
Resolved.
Paroxysmal atrial fibrillation:
Held anticoagulation, d/w GI , ok to resume.
Cardiac monitoring
Not on rate control agents as outpatient
Chronic HFpEF:
Manage volume with dialysis
Diabetes mellitus:
ISS
Insulin AC at 4 units
Discussed with diabetic CURTAIN CLEANER today on 02/22
#DVT prophylaxis:
Back on Coumadin
CODE STATUS:
Full code
Anticipated Discharge: Today
Subjective/Interval History
-
Date of Service: February 24, 2024
No new events. No bleeding. No chest pain or shortness of breath
Objective Data
-
Labs:
Laboratory Results
02/24/24
05:57
WBC 6.2
Hgb 9.8 L
Hct 30.4 L
Plt Count 279
PT 20.1 H
INR 1.73
Sodium 135
Potassium 4.9
Chloride 96 L
Carbon Dioxide 29
BUN 28 H
Creatinine 4.2 H*
Glucose 97
Calcium 8.3 L
Vital Signs:
Vital Signs
Temp Pulse Resp BP Pulse Ox
97.7 F 66 17 167/63 99
02/24/24 07:00 02/24/24 07:00 02/24/24 07:00 02/24/24 07:00 02/24/24 07:00
I&O
02/23/24 02/24/24 02/25/24
06:59 06:59 06:59
Intake Total 900 / 900 720 / 720
Output Total 0 / 0
Balance 900 / 900 720 / 720
[2024-02-24] MEDS: ROXICODONE 5 MG PO ×2 (09:41→22:04)
--- NOTE | 2024-02-24 10:25 | W.PN.NEPH.PH ---
Today's Communication / Plan
-
HD tomorrow
Assessment/Plan
-
Impression:
Acute GI Bleed
Acute Blood Loss Anemia
Coumadin Coagulopathy
Hyperkalemia
Metabolic Acidosis
ESRD on hemodialysis [facility]
Anemia of ESRD
Hypovolemia secondary to the above
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
Paroxysmal Atrial Fibrillation
Chronic HFpEF
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
History of bilateral pleural effusions status post thoracentesis
History of pericardial effusion status post pericardiocentesis
Coronary artery disease
Essential hypertension
DM2 with multiple microvascular complications
Hyperlipidemia
Spinal stenosis
Anxiety/depression
L radial AVF
Plan:
HD tomorrow, orders provided
transfuse prn
follow Hgb
dc planning
-
-
Date of Service: February 24, 2024
CC / HPI / ROS
-
Chief Complaint:
ESRD
History of Present Illness:
hgb stable
BP elevated stable
no fever and on RA
tolerated HD yesterday
s/p LVP 4+L 02/18
Review of Systems:
no n/v
no pain
no cp or sob
Labs
-
Labs:
WBC 6.2 10^3/uL (4.8-10.8) 02/24/24 05:57
RBC 3.27 10^6/uL (4.70-6.10) L 02/24/24 05:57
Hgb 9.8 g/dL (13.0-18.0) L 02/24/24 05:57
Hct 30.4 % (39.0-52.0) L 02/24/24 05:57
Plt Count 279 10^3/uL (130-400) 02/24/24 05:57
Sodium 135 mmol/L (135-145) 02/24/24 05:57
Potassium 4.9 mmol/L (3.5-5.1) 02/24/24 05:57
Chloride 96 mmol/L (98-107) L 02/24/24 05:57
Carbon Dioxide 29 mmol/L (22-30) 02/24/24 05:57
BUN 28 mg/dl (9-20) H 02/24/24 05:57
Creatinine 4.2 mg/dL (0.7-1.3) H* 02/24/24 05:57
eGFR 15.49 02/24/24 05:57
Glucose 97 mg/dl (70-99) 02/24/24 05:57
Calcium 8.3 mg/dl (8.4-10.2) L 02/24/24 05:57
Phosphorus 2.6 mg/dl (2.5-4.5) 02/12/24 05:55
Albumin 2.5 g/dl (3.5-5.0) L 02/12/24 05:55
Physical Exam
-
Vital Signs:
Vital Signs
Temp Pulse Resp BP Pulse Ox
97.7 F 66 17 167/63 99
02/24/24 07:00 02/24/24 07:00 02/24/24 07:00 02/24/24 07:00 02/24/24 07:00
Cardiovascular:: Regular rate and rhythm
Respiratory:: Bilateral: CTA
Lung Excursion:: Normal
Abdomen:: Nontender and Soft
Bowel Sounds:: Normal
Extremity Edema:: None: Bilateral:
[2024-02-24 12:15] LABS: Glucose - Point of Care 154 mg/dl (70-99)
[2024-02-24] MEDS: NOVOLOG FLEXPEN-LOW RESISTANCE 1 UNITS SC ×2 (12:33→17:01)
[2024-02-24 15:00] VITALS: BP 103/48
--- NOTE | 2024-02-24 15:31 | CM ---
Patient seen at bedside
[facility] accepted - patient agreed.
Insurance auth submitted to [facility]
Certification #: [id number]
Start date: 02/25/24 NRD 03/02/24
Fax updates to [phone]
María Elena liaison updated with insurance auth information
Patient scheduled to have dialysis tomorrow per Tammy at 7am
Transportation forms on chart - scheduled for 1pm
PLAN: [facility] after HD tomorrow
Transporation scheduled at 1pm
[facility]
Report #: [phone]
Fax #: [phone]
[2024-02-24 16:29] LABS: Glucose - Point of Care 192 mg/dl (70-99)
[2024-02-24] MEDS: APRESOLINE PO (17:00)
[2024-02-24] MEDS: COUMADIN 3 MG PO (17:00)
[2024-02-24 21:24] LABS: Glucose - Point of Care 242 mg/dl (70-99)
[2024-02-24] MEDS: TYLENOL 500 MG PO (22:04)
[2024-02-24] MEDS: LIPITOR 80 MG PO (22:05)
[2024-02-24 23:30] VITALS: BP 176/74
[2024-02-25] MEDS: APRESOLINE 10 MG IV (01:44)
[2024-02-25] MEDS: ROXICODONE 5 MG PO ×2 (02:36→12:33)
[2024-02-25 02:41] VITALS: BP 179/73
[2024-02-25 03:42] VITALS: BP 172/64
[2024-02-25] MEDS: TRANDATE 10 MG IV (04:32)
[2024-02-25 05:46] VITALS: BP 171/75
--- NOTE | 2024-02-25 05:53 | PTCARENOTE ---
0144- Pt with BP of 181/73. PRN 10mg IV Hydralazine administered. Recheck 179/73. Administered PRN pain medication, BP 172/64 manual. ENVIRONMENTAL HEALTH SANITARIAN aware.
0432 - BP 178/74, HR 68. PRN 10mg IV Labetalol administered. Recheck 171/75.
Pt resting comfortably in bed, awaiting dialysis this morning at 0700.
[2024-02-25 06:00] VITALS: BMI 23.3
[2024-02-25 07:00] VITALS: BP 109/68
[2024-02-25 07:07] LABS: Glucose - Point of Care 132 mg/dl (70-99)
--- NOTE | 2024-02-25 07:56 | PN.DE.MGMTRT ---
Insulin Management
- -
02/25/2024: Diabetes Management Follow up:
58 year old male admitted on 02/07 with 4 day hx of lethargy, coffee-ground emesis and melena.
PMH: ESRD on HD, A-fib on Coumadin, HTN, GERD, IDDM. Diabetes management requested to assist with Hypoglycemia.
Reports he has been a diabetic for over 28 year and routinely follows up with Endocrine Dr. Jorge Lopez at [facility] in [place], uses free style henry glucose meter. States he was taking Tresiba but it was recently discontinued due to
recurrent Hypoglycemia. Reports taking Humalog 5 units before meals and no other diabetes medication. States he has 'run out' of henry CGMs. Encouraged him to call his neurophysiology tech for appointment so he can resume Henry. He states he does have
a working glucose monitor and test strips at home.
Pt had recurrent episodes of hypoglycemia on 02/07 and 02/08 as low as 45, requiring D5 infusion.
His glucose improved and was initiated on low corrective insulin requiring 1-2 units of coverage for glucose range of 170 to 205.
02/11 D5 infusion was d/c'd.
Pt awake, alert, receiving HD, offers no complaints, able to discuss diabetes plan of care.
Dysphagia diet started on 02/12. AC NovoLog 4 units started with lunch 02/14
02/23 Glucose range 100 to 242.
02/24 Fasting glucose 132 this AM.
Will make no changes to current regimen. Patient for discharge today.
Will follow and make further insulin adjustments if needed.
Diabetes History
- -
Type of Diabetes: 2 requiring insulin
Pre-Admission Diabetes Regimen
Insulin Pump Settings
IP Diabetes Regimen
02/24/24 02/24/24 02/24/24
12:14 16:28 21:23
POC Glucose 154 H 192 H 242 H
02/25/24
07:07
POC Glucose 132 H
Meal type: Lunch
Meal type: Breakfast
Amount consumed: 100%
Amount consumed: 100%
Patient Education
[2024-02-25] MEDS: NOVOLOG FLEXPEN 4 UNITS SC ×3 (08:09→16:21)
[2024-02-25] MEDS: NOVOLOG FLEXPEN-LOW RESISTANCE SC ×2 (08:10→12:41)
[2024-02-25 09:08] LABS: Hematocrit 27.5 % (39.0-52.0)
--- NOTE | 2024-02-25 09:10 | W.PN.HOSP.TC ---
Today's Communication/Plan
-
Discharge planning
Assessment / Plan
Assessment / Plan
Physical exam:
General: chronically ill looking.
HEENT: Normocephalic, Atraumatic and Moist Mucous Membranes
Respiratory: limited but clear to Auscultation; Negative Wheezes.
Cardiac: S1/S2
GI: Soft, tender epigastric area and Nondistended
Musculoskeletal: Bilateral lower extremity edema. No Clubbing, No Cyanosis
Neuro: Awake, Alert and Oriented, no gross neuro deficits
Psych: Calm
A/P:
#Acute GI bleed:
Improved
Warfarin-INR 1.73 yesterday
Warfarin 3 mg nightly
Hb 9.8 yesterday and 9 today
Check hemoglobin and INR outpatient
Medically stable for discharge--> shelter case manager for discharge disposition
#Chronic pain with narcotic dependence
I reviewed his PDMP on 02/21 and he has been on chronic narcotics up until November 2023
He has been off narcotics while hospitalized but has received some of them intermittently.
Will restart oxycodone but needs to follow-up and use judiciously
Bowel regimen
#End-stage renal disease on hemodialysis:
Hemodialysis need per nephrology--> plan for HD today
#Hyperkalemia
Hemodialysis will take care of
In the meantime hold spironolactone but may be resume upon discharge-discussed with nephrology today 02/22
Continue ARB
# Ascites
Recent paracentesis around 5800cc drained on 01/20/24. diagnosis of cirrhosis
US Abdominal Doppler 02/09 : Patent hepatic vasculature with appropriate directional flow. Moderate diffuse abdominal ascites. No evidence for acute cholecystitis. Hepatic cirrhosis. No focal hepatic lesions.
Ascites- Paracentesis last on 01/20/24: Large-volume paracentesis (diagnostic + therapeutic) and was given albumin: fluid WBC 123 neg SBP, fluid albumin <1 and serum albumin 2.3. SAAG >1.3 c/w portal HTN
for thoracentesis before dc
No rectal bleeding. no overt bleeding. HGB around 9
Findings of bleeding per upper endoscopy in the setting of warfarin use.
On regular diet now
Off PPI and octreotide drip
PPI BID orally.
On antiemetics as needed
Monitored hemoglobin
#Sepsis due to aspiration pneumonia: Resolved. Off O2.
Finished course of antibiotics.
leukocytosis resolved.
CT chest abd pelvis and cxr reviewed
Blood cultures no growth
MRSA colonizer.
# urgency/hypertension:
Resolved
Back on oral medications and dialysis( TTS)
#Hyponatremia, mild
No confusion
# hemorrhagic shock, mild with Hypotension:
Resolved.
#Acute blood loss anemia with hemorrhagic shock exacerbated by Coumadin Coagulopathy:
HGB stable around 9
Status post 7 units blood transfusions
Initial hemoglobin 3.1 upon admission
# Toxic metabolic encephalopathy:
resolved. AAO X3
Off Precedex drip
lucid and cooperative
# Coagulopathy:
Status post Kcentra and vitamin K
INR over 8 > on admission, resumed Coumadin
# Liver Cirrhosis:
No nausea.
# Type II [place] with demand ischemia
No chest pain
Atypical chest pain:
Received pain medication
Troponin trended down appropriately
Acute hypoxic respiratory failure:
Resolved.
Paroxysmal atrial fibrillation:
Held anticoagulation, d/w GI , ok to resume.
Cardiac monitoring
Not on rate control agents as outpatient
Chronic HFpEF:
Manage volume with dialysis
Diabetes mellitus:
ISS
Insulin AC at 4 units
Discussed with diabetic SENIOR SALESFORCE DEVELOPER today on 02/22
#DVT prophylaxis:
Back on Coumadin
CODE STATUS:
Full code
Anticipated Discharge: Today
Subjective/Interval History
-
Date of Service: February 25, 2024
No new complaint
Objective Data
-
Labs:
Laboratory Results
02/25/24
08:12
Hgb 9.0 L
Hct 27.5 L
Sodium Pending
Potassium Pending
Chloride Pending
Carbon Dioxide Pending
Vital Signs:
Vital Signs
Temp Pulse Resp BP Pulse Ox
98.3 F 75 18 141/87 99
02/25/24 07:25 02/25/24 07:25 02/25/24 07:25 02/25/24 07:25 02/25/24 07:25
I&O
02/24/24 02/25/24 02/26/24
06:59 06:59 06:59
Intake Total 720 / 720 1020 / 1020
Balance 720 / 720 1020 / 1020
[2024-02-25 09:23] LABS: Carbon Dioxide 27 mmol/L (22-30); Chloride 95 mmol/L (98-107); Potassium 4.8 mmol/L (3.5-5.1); Sodium 132 mmol/L (135-145)
--- NOTE | 2024-02-25 09:40 | W.DCSUMMARY ---
Discharge Summary
Discharge Data
Date of Admission: 02/08/24
Date of Discharge: 02/25/24
-
Pending Results: No
Hospital Course
Patient 58 years old male with multiple comorbidities including end-stage renal disease on hemodialysis, paroxysmal A-fib on anticoagulation, CAD, cirrhosis presented to the hospital after missed dialysis and hematemesis as well as melena and
altered mental status. His INR was more than 8 and his hemoglobin was 3.1 upon admission. Patient was started on blood transfusion, reversal of coagulopathy with Kcentra and vitamin K. He was admitted to intensive care unit. GI and geophysics teacher
were consulted. Nephrology also was consulted and manage his hemodialysis needs. He was started on IV PPI drip and octreotide. Patient had an endoscopy on 02/08 with mildly severe esophagitis grade 1 esophageal varices, no stigmata of bleeding,
gastric erosion in the cardia with active bleeding. Clip was placed. No gastric varices seen. There was coffee-ground material in the stomach on upper endoscopy and normal examined duodenum and no specimen collected. Patient course complicated
with aspiration pneumonia zeina-procedure. He was placed on broad-spectrum IV antibiotics. He finished course of antibiotics. He was switched to octreotide and PPI drip to intravenous and then subsequently to oral PPI. Patient was restarted on
warfarin and he tolerated well. There was some issues with discharge disposition that somewhat prolonged his hospital stay but now stable for discharge. It was felt that he would benefit from rehab and skilled facility was arranged. He is being
discharged relatively stable condition today.
Discharge duration: 30 minutes
Discharge Plan
-
Patient Disposition: Fpc/SNF
Discharge Diagnosis/Procedures: Acute gastrointestinal bleeding with hemorrhagic shock exacerbated by warfarin, resolved. Aspiration pneumonia. Acute blood loss anemia. End-stage renal disease on hemodialysis. Chronic pain with narcotic
dependence. Ascites with liver cirrhosis. Hypertensive urgency. Type II myocardial infarction. Acute hypoxic respiratory failure. Paroxysmal atrial fibrillation. Chronic diastolic congestive heart failure. Diabetes mellitus type 2,
insulin-dependent.
Diet: Low Cholesterol, 2 Gram Sodium, Diabetic, Carb Controlled and Restrict fluids to 48 oz
Activity: As tolerated
Blood Work: Please PCP to order CBC, BMP, INR within 3 days
Activity Restrictions/Additional Instructions:
resume HD thursday per prior HD orders
Referrals:
Derek Juárez MD [Active] - in two to four weeks
Heri Buckley MD [Non-Admitting Privileges] - in one to two weeks
Rosemarie Paige DO [Family Provider] - in one to two weeks
Prescriptions:
New
nifedipine 30 mg Tablet Extended Release
30 mg PO DAILY Qty: 30 0RF
pantoprazole 40 mg Tablet,Delayed Release (Dr/Ec)
40 mg PO BID Qty: 60 0RF
sevelamer carbonate 800 mg tablet
1,600 mg PO MEALS Qty: 180 0RF
oxycodone 5 mg Tablet
5 mg PO Q4HPRN PRN (Reason: severe pain) Qty: 4 0RF
spironolactone 25 mg tablet
25 mg PO DAILY Qty: 30 0RF
Continued
atorvastatin 80 mg Tablet
80 mg PO HS
lidocaine-prilocaine 2.5-2.5 % Cream
1 applic TOPICAL TUTHSA PRN (Reason: port access)
sertraline 100 mg tablet
100 mg PO DAILY
losartan 100 mg tablet
100 mg PO DAILY
Dialyvite 100-1 mg tablet
1 tab PO DAILY
clonidine HCl 0.2 mg tablet
0.2 mg PO TID
hydralazine 100 mg tablet
100 mg PO TID
acetaminophen [Tylenol Extra Strength] 500 mg tablet
500 mg PO Q6HPRN PRN (Reason: mild pain) Qty: 0 0RF
Changed
insulin lispro 100 unit/mL Insulin Pen
4 unit SC AC Qty: 0 0RF
Rx Instructions:
150-200=2UNITS, 201-250=4UNITS, 251-300=6UNITS
warfarin 3 mg Tablet
3 mg PO DAILY Qty: 0 0RF
Discontinued
pantoprazole [Protonix] 40 mg tablet,delayed release (DR/EC)
40 mg PO BID
spironolactone 25 mg Tablet
25 mg PO DAILY Qty: 30 0RF
Discharge Orders:
Discharge Patient (As Directed); Ordered 02/25/24
Ordered By: Kyle Gamble
Discharge Date and Time
Discharge Date/Time: 02/25/24 17:56
Print Language: FAROESE
[2024-02-25] MEDS: RETACRIT 10000 UNITS IV (09:44)
--- NOTE | 2024-02-25 10:00 | CM ---
Addendum entered by Isidra Slater 02/25/24 11:53:
Per María Elena liaison at facility they can accept patient at 4-5pm today.
transportation time changed to 5pm
María Elena updated with transport time.
Original Note:
IMM explained & signed. In chart.
HD today then will be discharged to [facility].
Spoke with María Elena liaison & updated.
Patient will rec dialysis at [facility] tomorrow
Flow sheets to be sent to [facility] after treatment today.
Insurance auth submitted to [facility]
Certification #: [id number]
Start date: 02/25/24 NRD 03/02/24
Fax updates to [phone]
PLAN: [facility]
transport scheduled at 1pm. (forms on chart)
[facility]
Report #: [phone]
Fax #: [phone]
--- NOTE | 2024-02-25 12:19 | W.PN.NEPH.HD ---
Assessment
-
Seen on HD. no complaints. VSS< access ok
Progress Note - Hemodialysis
-
Date of Service: February 25, 2024
Duration: 3 hours
Potassium Bath: 2
Calcium Bath: 2.5
Opti-Dialyzer: 160
Ultrafiltration: Other (2kg)
Blood Flow: 400
Dialysate Flow: 600
Heparin: no
EPO: 92117 units
[2024-02-25] MEDS: TYLENOL 500 MG PO (12:33)
[2024-02-25 12:34] LABS: Glucose - Point of Care 112 mg/dl (70-99)
[2024-02-25] MEDS: APRESOLINE 100 MG PO (12:38)
[2024-02-25] MEDS: PROCARDIA XL (EXTENDED RELEASE) 30 MG PO (12:39)
[2024-02-25] MEDS: B COMPLEX w/VITAMIN C 1 CAPLET PO (12:39)
[2024-02-25] MEDS: COZAAR 100 MG PO (12:39)
[2024-02-25] MEDS: PROTONIX 40 MG PO (12:39)
[2024-02-25] MEDS: ZOLOFT 100 MG PO (12:39)
[2024-02-25] MEDS: RENVELA PO (12:40)
[2024-02-25] MEDS: CATAPRES 0.2 MG PO ×2 (12:40→16:23)
[2024-02-25] MEDS: RENVELA 800 MG PO ×2 (12:40→16:22)
[2024-02-25 12:47] VITALS: BP 152/80
[2024-02-25 15:00] VITALS: BP 110/50
[2024-02-25 16:12] LABS: Glucose - Point of Care 175 mg/dl (70-99)
[2024-02-25] MEDS: APRESOLINE PO (16:21)
[2024-02-25] MEDS: NOVOLOG FLEXPEN-LOW RESISTANCE 1 UNITS SC (16:22)
== END 2024-02-25 17:56 | DRG 377 ==
LOC: 2 NORTH 06:20
PROVIDERS: Internal Medicine; Internal Medicine Gastroenterology; Nurse Practitioner; Nurse Practitioner Family; Physician Assistant; Radiology Diagnostic Radiology; Specialist; ADMITTING PHYSICIAN Hospitalist; ATTENDING PHYSICIAN Hospitalist; CONSULT PHYSICIAN Internal Medicine; EMERGENCY PHYSICIAN Emergency Medicine; FAMILY PHYSICIAN Family Medicine; OTHER PHYSICIAN Internal Medicine; OTHER PHYSICIAN Internal Medicine Critical Care Medicine
PROC: 30233N1 Transfusion of Nonautologous Red Blood Cells into Peripheral Vein, Percutaneous Approach (ICD-10-PCS; 2024-02-08)
PROC: 5A1D70Z Performance of Urinary Filtration, Intermittent, Less than 6 Hours Per Day (ICD-10-PCS; 2024-02-08)
PROC: 0W3P8ZZ Control Bleeding in Gastrointestinal Tract, Via Natural or Artificial Opening Endoscopic (ICD-10-PCS; 2024-02-09)
PROC: 5A0935A Assistance with Respiratory Ventilation, Less than 24 Consecutive Hours, High Flow/Velocity Cannula (ICD-10-PCS; 2024-02-09)
PROC: 02HV33Z Insertion of Infusion Device into Superior Vena Cava, Percutaneous Approach (ICD-10-PCS; 2024-02-09)
PROC: 0W9G3ZZ Drainage of Peritoneal Cavity, Percutaneous Approach (ICD-10-PCS; 2024-02-10)
DX: K25.4 Chronic or unspecified gastric ulcer with hemorrhage (principal); A41.9 Sepsis, unspecified organism; G92.8 Other toxic encephalopathy; J96.01 Acute respiratory failure with hypoxia; N18.6 End stage renal disease; I85.11 Secondary esophageal varices with bleeding; R57.8 Other shock; J69.0 Pneumonitis due to inhalation of food and vomit; J18.9 Pneumonia, unspecified organism; K21.01 Gastro-esophageal reflux disease with esophagitis, with bleeding; I21.A1 Myocardial infarction type 2; I13.2 Hypertensive heart and chronic kidney disease with heart failure and with stage 5 chronic kidney disease, or end stage renal disease; D62 Acute posthemorrhagic anemia; D68.32 Hemorrhagic disorder due to extrinsic circulating anticoagulants; E87.20 Acidosis, unspecified; R18.8 Other ascites; I50.32 Chronic diastolic (congestive) heart failure; I45.2 Bifascicular block; F11.20 Opioid dependence, uncomplicated; E87.1 Hypo-osmolality and hyponatremia; I48.0 Paroxysmal atrial fibrillation; F32.A Depression, unspecified; F41.9 Anxiety disorder, unspecified; D63.1 Anemia in chronic kidney disease; E11.42 Type 2 diabetes mellitus with diabetic polyneuropathy; E11.22 Type 2 diabetes mellitus with diabetic chronic kidney disease; I25.10 Atherosclerotic heart disease of native coronary artery without angina pectoris; T45.515A Adverse effect of anticoagulants, initial encounter; K74.60 Unspecified cirrhosis of liver; E11.649 Type 2 diabetes mellitus with hypoglycemia without coma; E87.5 Hyperkalemia; I16.0 Hypertensive urgency; G89.29 Other chronic pain; K91.61 Intraoperative hemorrhage and hematoma of a digestive system organ or structure complicating a digestive system procedure; D75.839 Thrombocytosis, unspecified; E86.1 Hypovolemia; Z95.5 Presence of coronary angioplasty implant and graft; Z91.158 Patient's noncompliance with renal dialysis for other reason; Z99.2 Dependence on renal dialysis; Z88.5 Allergy status to narcotic agent; Z87.891 Personal history of nicotine dependence; Z86.16 Personal history of COVID-19; Z79.899 Other long term (current) drug therapy; Z79.4 Long term (current) use of insulin; Z79.01 Long term (current) use of anticoagulants
CPT/HCPCS: 88305; 49083; 70450; 71045; 71250; 74176; 80048; 80051; 80053; 82042; 82140; 82248; 82805; 82945; 82962; 83615; 83735; 84100; 84157; 84443; 84484; 85014; 85018; 85025; 85027; 85610; 85730; 86850; 86900; 86901; 86920; 87015; 87040; 87070; 87205; 87340; 87517; 88112; 89051; 92526; 92610; 93005; 93975; 96374; 97110; 97116; 97163; 97167; 97530; 97535; 99291; G0257; J2916; J7168; P9016; P9047; Q5106

== ENCOUNTER 2024-03-16 03:47 | Inpatient (IN) | payer OTHER, SELFPAY ==
[2024-03-15 22:58] VITALS: BP 201/63
[2024-03-15 23:00] VITALS: BMI 25.3
[2024-03-15 23:03] VITALS: BP 201/63
[2024-03-15 23:07] LABS: Glucose - Point of Care 78 mg/dl (70-99)
[2024-03-15] MEDS: MORPHINE SULFATE 4 MG IV (23:27)
[2024-03-15 23:35] LABS: % Basophils 0.5 % (0-2); % Eosinophils 2.3 % (0-6); % Immature Granulocytes 0.3 % (0-0.5); % Lymphocytes 5.1 % (20.5-51.1); % Monocytes 4.9 % (1.7-9.3); % Neutrophils 86.9 % (42.2-75.2); Absolute Basophils 0.1 10^3/uL (0-0.2); Absolute Eosinophils 0.2 10^3/uL (0-0.7); Absolute Lymphocytes 0.5 10^3/uL (1.2-3.4); Absolute Monocytes 0.5 10^3/uL (0.1-0.6); Absolute Neutrophils 8.5 10^3/uL (1.4-6.5); Hematocrit 34.5 % (39.0-52.0); Hemoglobin 10.8 g/dL (13.0-18.0); Mean Corp Hgb Conc. 31.3 g/dL (33.0-37.0); Mean Corpuscular Hgb 29.5 pg (27.0-31.0); Mean Corpuscular Volume 94.3 fL (80.0-94.0); Nucleated Red Blood Cells % 0 % (-); Platelet Count 358 10^3/uL (130-400); Red Blood Cell Count 3.66 10^6/uL (4.70-6.10); Red Cell Dist. Width 14.8 % (11.5-14.5); White Blood Cell Count 9.8 10^3/uL (4.8-10.8)
[2024-03-15 23:37] VITALS: BP 164/75
[2024-03-15 23:41] LABS: INR 3.16; PT 32.3 Sec (11.4-14.6)
--- NOTE | 2024-03-15 23:41 | ED.GENMED ---
History of Present Illness
General
Chief Complaint: Bowel Problem
Time Seen by Provider: 03/15/24 22:58
History of Present Illness
History of Present Illness:
58-year-old male with complex medical history including end-stage renal disease on hemodialysis MWF with left upper extremity fistula, A-fib on Coumadin, CAD, cirrhosis with chronic ascites presenting from his rehabilitation facility concern of GI
bleed. At facility, patient noted to have coffee-ground emesis. Patient reports on arrival that he is feeling nauseous, weak, dizzy and short of breath with abdominal pain. Denies seeing blood in his stool. Patient with recent complicated
hospital admission from 02/07 to 02/24 for severe upper GI bleed requiring transfusion, clipping of esophageal varices, complicated by aspiration pneumonia. After stabilized, patient was restarted on Coumadin. Patient has been on COVID isolation
for the past 9 days. He missed dialysis session on Thursday, and also missed his paracentesis last week. No reported fevers. No additional symptoms obtained at this time
Past History
Past History
ED Past Medical History: CAD, GERD, HTN, IDDM, Renal failure (End-stage renal disease), Psychiatric (Depression) and Other (Chronic low back pain, ambulatory dysfunction, anemia, pneumonia, pericardial effusion, pleural effusion, frequent falls,
neuropathy)
ED Past Surgical History: Other (Left arm AV graft)
Social History
Tobacco: Non-smoker
Alcohol: None
Drug: None
Personal:
Living: [facility]
Employment: Disabled
Family History
Family History: Other (Noncontributory)
Phy Exam
Physical Exam
Physical Exam:
General: Uncomfortable, however no distress
HEENT: protecting airway
Neck: appears supple
CV: Normal heart rate, regular rhythm, no evidence of cyanosis
Resp: No accessory muscle use, no increased work of breathing, lungs clear to auscultation bilaterally
Abd: Moderate distention with generalized pain to my patient. No rebound or guarding
Extremities: No deformities, no swelling. Left upper extremity fistula
Neuro: alert, no focal neurologic deficit
: Hemoccult negative brown stool
Rectal: deferred
Psych: Normal affect
Skin: Intact
Course
Orders/Labs/Results
Orders:
Orders
03/15/24 23:20
Morphine Sulfate 4 mg IV NOW STA
03/15/24 23:22
Type And Crossmatch [Type+Screen] Urgent
Basic Metabolic Panel Urgent
Comment: NO K
Complete Blood Count/With Diff Urgent
PT/INR [Prothrombin Time] Urgent
PTT Urgent
03/15/24 23:54
Comprehensive Metabolic Panel Urgent
03/16/24 00:21
Dextrose 50%-Water [Dextrose 50% Syringe] 25 grams .ROUTE .STK-MED ONE
03/16/24 00:23
Dextrose 50%-Water [Dextrose 50% Syringe] 25 grams IV NOW STA
03/16/24 00:29
Calcium Gluconate 1,000 mg IV NOW STA
03/16/24 00:30
CT Abd/pelvis W Iv Cont Urgent
Reason For Exam: abdominal pain and distension, vomiting, HD pt
Abnormal Lab Results
03/15/24 03/15/24 03/16/24
23:22 23:54 00:56
RBC 3.66 L 10^6/uL
(4.70-6.10)
Hgb 10.8 L g/dL
(13.0-18.0)
Hct 34.5 L %
(39.0-52.0)
MCV 94.3 H fL
(80.0-94.0)
MCHC 31.3 L g/dL
(33.0-37.0)
RDW 14.8 H %
(11.5-14.5)
Absolute Neuts (auto) 8.5 H 10^3/uL
(1.4-6.5)
Absolute Lymphs (auto) 0.5 L 10^3/uL
(1.2-3.4)
Neutrophils % 86.9 H %
(42.2-75.2)
Lymphocytes % 5.1 L %
(20.5-51.1)
PT 32.3 H Sec
(11.4-14.6)
APTT 86.5 H Sec
(23.4-35.0)
Potassium 6.0 H mmol/L
(3.5-5.1)
Chloride 110 H mmol/L
(98-107)
Carbon Dioxide 20 L mmol/L 17 L mmol/L
(22-30) (22-30)
BUN 69 H mg/dl 62 H mg/dl
(9-20) (9-20)
Creatinine 9.4 H* mg/dL 8.2 H* mg/dL
(0.7-1.3) (0.7-1.3)
Glucose 56 L mg/dl 50 L* mg/dl
(70-99) (70-99)
Calcium 7.5 L mg/dl
(8.4-10.2)
Total Protein 5.8 L g/dl
(6.3-8.2)
Albumin 2.4 L g/dl
(3.5-5.0)
POC Glucose 102 H mg/dl
(70-99)
03/15/24 23:22
03/15/24 23:54
Vital Signs
Initial and Last Documented VS:
Initial Vital Signs
Temp Pulse Resp BP Pulse Ox
99.1 F 71 24 201/63 96
03/15/24 22:58 03/15/24 22:58 03/15/24 22:58 03/15/24 22:58 03/15/24 22:58
Last Documented Vital Signs
Temp Pulse Resp BP Pulse Ox
97.4 F 94 16 205/99 96
03/16/24 20:14 03/16/24 22:13 03/16/24 22:00 03/16/24 22:13 03/16/24 22:00
MDM/Problems Addressed
MDM/Problems Addressed:
58-year-old male with complicated medical history end-stage renal disease on hemodialysis MWF with left upper extremity fistula, A-fib on Coumadin, CAD, cirrhosis with chronic ascites presenting for concern of GI bleed with coffee-ground emesis,
abdominal pain. Vital signs on arrival significant for high blood pressure.
On exam patient is in no acute distress, however does appear uncomfortable. Generalized tenderness to the abdomen with retching. Blood pressure elevated, possibly from discomfort and pain. Concern for repeat GI bleed, however emesis dark in color
with lower suspicion for esophageal varices. Given known anticoagulation status, will obtain laboratory analysis and coags. Hemoccult negative. Additional diagnostic considerations include bowel obstruction, volume overload with increased
ascites. Plan for CT abdominal imaging. Morphine administered for pain.
00:30-patient's potassium is 6.0. Will administer 1 amp of calcium gluconate. Sugar is also 50. Will administer 1 amp of D50.
01:00 - CT shows increasing ascites. Patient will require likely paracentesis as well as hemodialysis. Plan for admission
*Critical Care Note
Total Time (30-74mins, 75-104mins- exclusive of procedures): Not Applicable
ED Attending Note
-
Portions of this chart may have been created with voice recognition software.� Occasional wrong word or��sound alike� substitutions may have occurred due to the inherent limitations of voice recognition software.
Discharge Plan
Departure
Patient Disposition: Admit
Presentation/result/management discussed w/ accepting MD/DO: Hospitalist
Discharge Problem:
Abdominal ascites, Pleural effusion, Abdominal pain
Interventions
Interventions:
*Risk Screen - Suicide Last Done: 03/16/24 10:35
*General Assessment Last Done: 03/15/24 23:00
*Neglect/Abuse Screening Last Done: 03/15/24 23:00
ED- Fall Risk Assessment Last Done: 03/15/24 23:00
*ED COVID-19 Vaccine History Last Done: 03/16/24 04:56
*Nursing Disposition Last Done: 03/16/24 04:53
[facility] Assessment Last Done: 03/15/24 23:04
Discharge Date and Time
Discharge Date/Time: 03/16/24 04:53
[2024-03-15 23:43] LABS: APTT 86.5 Sec (23.4-35.0)
[2024-03-15 23:50] LABS: Blood Urea Nitrogen 69 mg/dl (9-20); Calcium 8.7 mg/dl (8.4-10.2); Carbon Dioxide 20 mmol/L (22-30); Chloride 104 mmol/L (98-107); Estimated Creatinine Clearance 9 ml/min; Glucose 56 mg/dl (70-99); Sodium 138 mmol/L (135-145); eGFR 5.89
[2024-03-16] VITALS (50 sets, daily range): BP systolic 112–222; BP diastolic 76–99; BMI 23.4
[2024-03-16 00:20] LABS: ALT (SGPT) < 10 U/L (0-50); AST (SGOT) 21 U/L (17-59); Albumin 2.4 g/dl (3.5-5.0); Alkaline Phosphatase 91 U/L (38-126); Blood Urea Nitrogen 62 mg/dl (9-20); Calcium 7.5 mg/dl (8.4-10.2); Carbon Dioxide 17 mmol/L (22-30); Chloride 110 mmol/L (98-107); Estimated Creatinine Clearance 10 ml/min; Glucose 50 mg/dl (70-99); Sodium 141 mmol/L (135-145); Total Bilirubin 0.5 mg/dl (0.2-1.3); Total Protein 5.8 g/dl (6.3-8.2); eGFR 6.94
[2024-03-16] MEDS: DEXTROSE 50% SYRINGE 25 GRAMS IV (00:23)
[2024-03-16] MEDS: CALCIUM GLUCONATE 1000 MG IV (00:51)
[2024-03-16 00:58] LABS: Glucose - Point of Care 102 mg/dl (70-99)
--- NOTE | 2024-03-16 04:06 | DOWNTIME ---
There was a [employer] Client Customer Manager Downtime on 03/16/2024 from 0100 to 03/16/2024 at 0350. Downtime documentation of patient's care, including medication administrations, has been reconciled in the electronic record per guidelines. Refer to the
patient's paper chart under the miscellaneous tab to see printed paper medication records and downtime forms.
--- NOTE | 2024-03-16 06:03 | HPS.HSE ---
Family Physician
-
Family Physician: Masood Randall
Chief Complaint
-
Vomiting, abdominal pain and distention
History of Present Illness
This is a 58-year-old with past medical history significant for cirrhosis requiring recurrent large-volume paracentesis, paroxysmal atrial fibrillation on anticoagulation, incisional disease on hemodialysis Thursday, CAD and a history
of grade 1 esophageal varices status post unknown variceal CVA GI bleeding recently who presents to the emergency department with complaints of vomiting that could be coffee grounds as well as abdominal distention and abdominal pain.
Patient recently admitted for melena and altered mental status with elevated INR and hemoglobin 3.1 requiring significant transfusion and reversal of anticoagulation, had CVA esophagitis and grade 1 esophageal varices but the bleeding came from
gastric erosion in the cardia with active bleeding and clips placed now coming with intractable nausea vomiting intolerant of p.o. and hypoglycemia. Patient was to have paracentesis on March 04 which she missed. He also missed dialysis on
Thursday. He reports that he missed dialysis due to abdominal distention and vomiting. He felt sick. He has no fevers or chills. He does report tenderness. He denies having melena. He denies hematemesis. He denies any new jaundice.
Blood glucose was low today in the morning and he was still given insulin. On arrival in the ED is blood glucose was 50.
He had a temp of 99.1, pulse 71, blood pressure of 200/60 and oxygen saturation of 97% on room air. There was no leukocytosis, hemoglobin was stable at 10.8, platelet count was normal. INR was 3.1. Chemistries notable for a potassium of 6.0.
CT abd shows b/l pleural effusions and increased ascites. Patient given D10 in the ED.
After initial evaluation of patient in ED, weight appears stable a later on developed large amounts of coffee-ground emesis after being moved around and rotated to his side on the bed. There was no coughing or shortness of breath. No evidence of
aspiration.
Medical History
Past Medical History
Past Medical History: Reports CAD, HTN, IDDM and Renal Failure (On hemodialysis Thursday)
Additional Past Medical History:
Cirrhosis complicated by stage I gastric varices and large volume ascites
Past Surgical History: Reports Other
Social History
Tobacco: Former Smoker
Alcohol: Former
Drug: None
Personal: Single
Living: Custodial
Employment: Not Employed
Family History
Family History: Not pertinent
Allergies / Home Medications
Allergies reflects when Allergies were last updated in [facility].
Home Medications with original date entered in [facility]
Allergy/Medication List:
Allergies
Allergy/AdvReac Type Severity Reaction Status Date / Time
No Known Allergies Allergy Verified 03/15/24 23:25
Home Medications
atorvastatin 80 mg tablet 80 mg PO HS High Cholesterol 12/23/22
lidocaine-prilocaine 2.5 %-2.5 % topical cream 1 applic topical TUTHSA PRN port access 12/23/22
losartan 100 mg tablet 100 mg PO DAILY Blood Pressure 07/29/23
sertraline 100 mg tablet 100 mg PO DAILY Mental Health 07/29/23
vitamin B complex-vitamin C 100 mg-folic acid 1 mg tablet (Dialyvite) 1 tab PO DAILY Supplement 07/29/23
clonidine HCl 0.2 mg tablet 0.2 mg PO TID Blood pressure 10/29/23
hydralazine 100 mg tablet 100 mg PO TID Blood Pressure 10/29/23
acetaminophen 500 mg tablet (Tylenol Extra Strength) 500 mg PO Q6HPRN PRN mild pain #0 tabs 01/22/24
insulin lispro 100 unit/mL subcutaneous pen 4 unit (0.04 mL) SC AC Diabetes #0 mL 02/17/24
nifedipine 30 mg tablet,extended release 30 mg PO DAILY #30 tabs 02/17/24
pantoprazole 40 mg tablet,delayed release 40 mg PO BID #60 tabs 02/17/24
sevelamer carbonate 800 mg tablet 1,600 mg (2 x 800 mg) PO MEALS #180 tabs 02/17/24
oxycodone 5 mg tablet 5 mg PO Q4HPRN PRN severe pain #4 tabs 02/24/24
spironolactone 25 mg tablet 25 mg PO DAILY #30 tabs 02/24/24
warfarin 3 mg tablet 3 mg PO DAILY Blood Clot Prevention/Tx #0 tabs 02/24/24
Review of Systems
-
History Source: Patient
Constitutional: Reports Fatigue
EENT: Reports No Symptoms
Respiratory: Reports No Symptoms
Cardiac: Reports No Symptoms
Abdomen/GI: Reports Abdominal Pain, Nausea and Vomiting (abdominal distension)
: Reports No Symptoms
Musculoskeletal: Reports No Symptoms
Skin: Reports No Symptoms
Neurological: Reports No Symptoms
Endocrine: Reports No Symptoms
Hematologic/Lymphatic: Reports No Symptoms
Psych: Reports No Symptoms
Physical Exam
Vital Signs
Vital Signs
Temp Pulse Resp BP Pulse Ox
97.8 F 88 20 201/98 98
03/16/24 05:18 03/16/24 05:18 03/16/24 05:18 03/16/24 05:18 03/16/24 05:18
Physical Exam
General: Appears Chronically Ill
HEENT: NormoCephalic, Anicteric, Moist mucous membranes, PERRLA and No Ptosis
Respiratory: Clear
Cardiac: S1/S2 and Irregular Rhythm
Breast: Deferred by me
GI: Soft, Normal Bowel Sounds, Tender and Distended
Rectal: Hem Negative
Genito-urinary: Deferred by me
Musculoskeletal: No Clubbing, No Cyanosis, Edema, Left Lower Extremity and Edema, Right Lower Extremity
Skin: Warm
Neuro: AO x 3
Hematologic/Lymphatic: No Lymphadenopathy
Psych: Calm
Laboratory Results
-
03/15/24 23:54
Laboratory Results
PT 32.3 Sec (11.4-14.6) H 03/15/24 23:22
INR 3.16 03/15/24 23:22
APTT 86.5 Sec (23.4-35.0) H 03/15/24 23:22
Total Bilirubin 0.5 mg/dl (0.2-1.3) 03/15/24 23:54
AST 21 U/L (17-59) 03/15/24 23:54
ALT < 10 U/L (0-50) 03/15/24 23:54
Alkaline Phosphatase 91 U/L (38-126) 03/15/24 23:54
Data Reviewed
-
CT Scan: Report Reviewed by me
Lab Data: Labs Reviewed by me
Old Records: Reviewed
Impression/Plan
-
IMPRESSION:
58 M with cirrhosis, ascites, grade I esophagael varices, ESRD on HD coming in with coffee ground emesis. Recent episode of GI bleed with clipping of varices. INR 3 on coumadin for afib. HD stable, hypertensive. K 6.0 and hypoglycemic.
PLAN:
1. Coffee ground emesis - Moderate amount of emesis. No projective vomiting. No obstruction on CTAP. Suspect upper GI bleed possibly variceal versus gastritis in setting of ac. Hypertensive currently and Hgb stable at 10
- admit to imu
- npo for now
- reversal of coumadin AC with vitK and kcentra
- PPI IV gtt. Octreotide gtt
- volume overloaded, so no iv fluids
- H/H q 8
- transfuse for Hgb < 7
- ceftriaxone 1 gm daily for abx ppx for gi bleed.
- GI consulted and notified.
2. Hypoglycemia - patient with intermittent insulin usage. Has minimal po intake in setting of ascites, abdominal pain and nausea/vomiting. Suspect hypoglycemia due to low PO and persistent insulin from ESRD. Missed last HD thursday.
- admit to telemetry
- bedside glucose q 2 hours for now
- if glucose drops will start d5w at 40 ml/hr, dialysis today ,
3. Hyperkalemia - K 6.0, no acute ECG changes.
- calcium gluconate given, hypoglycemia so no insulin given and patient unable to tolerate po
- repeat in 2 hours and consider insulin/glucose treatment if glucose improved and K still high
- no oral lokelma in setting of active gi bleed
- hold aldactone
- renal consulted and notified.
4. Ascites - moderately tense w/o rebound or guarding.
- IR consult for therapeutic paracentesis., send protein, albumin, cell count, gm stain and culture
5. ESRD, volume overloaded with peripheral edema, ascites and surya pleural effusion. No respiratory compromise. K 6.0. Missed HD thursday.
- npo
- fluid restriction
- nephrology consult for HD in am
5. HTN
- continue nifedipine, losartan, hydralazine and clonidine
6. DM II
- accuchecks q 6 for now, hold off insulin
DVT PPX - SCDs
Code status - full code
[2024-03-16] MEDS: REGLAN 10 MG IV (06:11)
[2024-03-16] MEDS: PROTONIX IV 80 MG IV (06:11)
[2024-03-16] MEDS: ROCEPHIN 1000 MG IV (06:12)
[2024-03-16 06:32] LABS: Hematocrit 35.7 % (39.0-52.0); Hemoglobin 11.5 g/dL (13.0-18.0)
[2024-03-16] MEDS: AQUAMEPHYTON 51 MG IV (06:33)
--- NOTE | 2024-03-16 06:39 | PTCARENOTE ---
Patient arrived into room 3349. Oriented to the room and use of the call nieto. Reports pain 'all over, especially in my back'. Hypertensive SBP 200s. NSR 80-90s. IV phytonadione initiated. VAT paged for new IV placement for K-centra administration.
Will report to dayshift RN. Suction set up at bedside. Call nieto and tray table left within reach.
[2024-03-16 06:43] LABS: Fibrinogen 528 MG/DL (199-459); INR 3.01; PT 31.1 Sec (11.4-14.6)
--- NOTE | 2024-03-16 07:13 | CON.GI ---
Addendum entered and electronically signed by Masood Garcia MD 03/16/24 10:53:
I saw and examined the patient.
The [employer] or PA's note was reviewed and I agree with the note.
Comment: 58yo male presents with 48hrs coffee ground emesis. He was recently admitted in January with GI bleed and Hgb 3, INR 8. Had EGD that showed grade 1 esophageal varices without stigmata of bleeding, erosion in cardia that was bleeding,
possibly scope trauma, but clipped in case it was bleeding source. He has hx cirrhosis, ascites, SBP, follows at [facility] GI. Also hx afib on coumadin. This admission, Hgb 10.8, but INR 3.16. Given K centra and Octreotide, protonix initiated in
ER. Denies significant EtOH in the past, none in last few years
REC:
Continue to follow Hgb and INR
Plan EGD when INR allows. Hemodynamically stable at this time
Cont ceftriaxone for GI bleed in cirrhotic pt
Abdomen is distended and tender. Paracentesis once INR comes down
Will follow
Needs outpt f/u with his GI at [facility] after d/c
Addendum entered and electronically signed by MICHELLE Gallegos 03/16/24 10:02:
MELD 3.0 25 but driven by high creat with hx ESRD and INR elevation with use of coumadin
Original Note:
Consultation
-
Date/Time Consultation Requested: 03/16/24 07
Date/Time Consultation Performed: 03/16/24 0715
Requesting Provider: felicia Hsieh DO
Performing Provider: MICHELLE Wilson, Masood Garcia MD
Reason for Consultation: GI bleed
Medical History
Chief Complaint / HPI
Chief Complaint: GI Bleed
History of Present Illness:
Pt is a 58yo with hx decompensated cirrhosis with ascites requiring paracentesis, SBP, Grade I EV, (Etiology ? MASH/ ? ETOH currently denies but prior records with former ETOH use, no formal serology work up at [facility] except hep B/C neg with
hep B immunity and prior eval with [facility] and [facility]. Prior SAAG with 1.4 with low protein c/w cirrhosis). Pt also noted with prior esophagitis, GI bleed with single small erosion with bleeding noted on cardia scope trauma vs ebenezer
lesion,severe iron deficiency anemia with hbg down to 3.1 on January, paroxysmal atrial fibrillation on Coumadin, CAD, end-stage renal disease on hemodialysis, heart failure with preserved ejection fraction, history of pleural effusions with
pericardiocentesis, hypertension, spinal stenosis, GERD, ?Dunlap's Esophagus, prior C-diff, DM, CHF, migraines, gastritis, constipation with multiple admission over last year for complication of cirrhosis. He now present from [facility] with coffee
ground emesis after recent covid isolation at [facility]. Pt last admission was in January with GI bleeding requiring transfusion with EGD noted mild severe esophagitis, grade I EV in lower third of esophagus, small erosion with active bleeding in
cardia- scope trauma vs ebenezer lesion. no gastric varix seen and clip placed. Scope was complicated by aspiration. In review with patient he is now noted with multiple episode of vomiting coffee ground last 2 days. After admission he is noted
with K 6.6 , glucose 50, INR 3.16 (with use of coumadin), albumin 2.4 with normal LFT's. hbg is stable at 10.8 with normal platelets of 350. Pt was given vitamin K, PPI and Octreotide gtt along with abx with cirrhosis and GI bleeding.
At this time patient admits to continued vomiting dark emesis. He has chronic GERD on PPI BID prior to admission. He also complaints of abdominal pressure with ascites. He denies odynophagia, dysphagia, diarrhea, constipation or rectal
bleeding. He denies any hepatology follow as multiple admission and current at [facility].
Prior GI Procedures:
-EGD on 02/09/24-radha severe esophagitis low third, Grade I EV lower third, A single localized small erosion with active bleeding was found in the cardia. scope trauma vs ebenezer lesion. no Varix, clip place. hematin in stomach normal duodenum.
[facility]: [facility] EGD esophagitis no active bleeding
colonoscopy [facility] 06/29/23 diverticulosis no active bleeding
EGD : Done September 2023 [facility] --irreg margins and erythema of mucosa no bleeding in GE junction c/w esophagitis, gastritis, pigmented mucosa
Past Medical History
Past Medical History: Arrhythmias (Paroxysmal atrial fibrillation on Coumadin), CAD, CHF, GERD (? Dunlap's esophagus), HTN, Renal Failure (On hemodialysis Thursday) and Other (Spinal stenosis, chronic iron deficiency anemia, pleural
effusion, cirrhosis (new dx 12/2023), ascites, grade I EV, GI bleed with lesion in cardia scope trauma vs ebenezer lesion, severe esophagitis)
Past Surgical History: Other (Left lower arm AV fistula)
Social History
Tobacco: Former Smoker
Alcohol: Occasional (per chart quit 5 years ago )
Drug: None
Living: With Family (cousin)
Employment: Not Employed
Family History
Family History: Other (no family hx colon CA or polyps)
Allergies / Home Medications
Allergy/AdvReac Type Severity Reaction Status Date / Time
No Known Allergies Allergy Verified 03/15/24 23:25
�Medication �Instructions �Recorded
atorvastatin 80 mg tablet 80 mg PO HS High Cholesterol 12/23/22
lidocaine-prilocaine 2.5 %-2.5 % 1 applic topical TUTHSA PRN port 12/23/22
topical cream access
losartan 100 mg tablet 100 mg PO DAILY Blood Pressure 07/29/23
sertraline 100 mg tablet 100 mg PO DAILY Mental Health 07/29/23
vitamin B complex-vitamin C 100 1 tab PO DAILY Supplement 07/29/23
mg-folic acid 1 mg tablet
(Dialyvite)
clonidine HCl 0.2 mg tablet 0.2 mg PO TID Blood pressure 10/29/23
hydralazine 100 mg tablet 100 mg PO TID Blood Pressure 10/29/23
acetaminophen 500 mg tablet 500 mg PO Q6HPRN PRN mild pain #0 01/22/24
(Tylenol Extra Strength) tabs
insulin lispro 100 unit/mL 4 unit (0.04 mL) SC AC Diabetes #0 02/17/24
subcutaneous pen mL
nifedipine 30 mg tablet,extended 30 mg PO DAILY #30 tabs 02/17/24
release
pantoprazole 40 mg tablet,delayed 40 mg PO BID #60 tabs 02/17/24
release
sevelamer carbonate 800 mg tablet 1,600 mg (2 x 800 mg) PO MEALS 02/17/24
#180 tabs
oxycodone 5 mg tablet 5 mg PO Q4HPRN PRN severe pain #4 02/24/24
tabs
spironolactone 25 mg tablet 25 mg PO DAILY #30 tabs 02/24/24
warfarin 3 mg tablet 3 mg PO DAILY Blood Clot 02/24/24
Prevention/Tx #0 tabs
Review of Systems
-
History Source: Patient
Constitutional: Reports Weight Loss (over last 2 years )
EENT: Reports No Symptoms
Respiratory: Reports Trouble Breathing (at times )
Cardiac: Reports No Symptoms
Abdomen/GI: Reports Abdominal Pain (with distention ), Nausea and Vomiting
: Reports No Symptoms and Other (on chronic HD)
Musculoskeletal: Reports No Symptoms
Skin: Reports No Symptoms
Neurological: Reports Weakness
Endocrine: Reports No Symptoms
Hematologic/Lymphatic: Reports Bleeding
Vital Signs
Temp Pulse Resp BP Pulse Ox
97.8 F 92 25 207/91 96
03/16/24 05:18 03/16/24 06:32 03/16/24 06:32 03/16/24 06:32 03/16/24 06:32
Physical Exam
Exam
General: Other (ill appearing with cachexia )
HEENT: Normocephalic and Anicteric
Respiratory: Clear
Cardiac: Regular Rhythm
GI: Soft, Tender (minimal ) and Distended
Rectal: Deferred by Provider
Musculoskeletal: No Clubbing and No Cyanosis
Skin: Warm and Dry
Neuro: Awake and Other (answering questsions with some drifting off in conversation)
Psych: Calm
Results
WBC 9.8 10^3/uL (4.8-10.8) 03/15/24 23:22
Hgb 11.5 g/dL (13.0-18.0) L 03/16/24 05:48
Hct 35.7 % (39.0-52.0) L 03/16/24 05:48
MCV 94.3 fL (80.0-94.0) H 03/15/24 23:22
Plt Count 358 10^3/uL (130-400) 03/15/24 23:22
Absolute Neuts (auto) 8.5 10^3/uL (1.4-6.5) H 03/15/24 23:22
PT 31.1 Sec (11.4-14.6) H 03/16/24 05:48
INR 3.01 03/16/24 05:48
APTT 85.0 Sec (23.4-35.0) H 03/16/24 05:48
Sodium 141 mmol/L (135-145) 03/15/24 23:54
Potassium 6.0 mmol/L (3.5-5.1) H 03/15/24 23:54
Chloride 110 mmol/L (98-107) H 03/15/24 23:54
Carbon Dioxide 17 mmol/L (22-30) L 03/15/24 23:54
BUN 62 mg/dl (9-20) H 03/15/24 23:54
Creatinine 8.2 mg/dL (0.7-1.3) H* 03/15/24 23:54
Calcium 7.5 mg/dl (8.4-10.2) L 03/15/24 23:54
Total Bilirubin 0.5 mg/dl (0.2-1.3) 03/15/24 23:54
AST 21 U/L (17-59) 03/15/24 23:54
ALT < 10 U/L (0-50) 03/15/24 23:54
Alkaline Phosphatase 91 U/L (38-126) 03/15/24 23:54
Diagnostic Image Results:
03/16 CT A/p pending
02/18 para 4600 neg SBP
02/10/24 CT Chest/abd/pel Wo Iv Cont
1. There is increased bibasilar consolidations with new surrounding groundglass opacities and small nodular consolidations in the posterior upper lobes suspicious for multifocal pneumonia.
2. There is apparent wall thickening of the cecum and ascending colon favored to represent colitis
3. Cholelithiasis.
4. Small volume ascites.
5. Extensive atherosclerotic indications.
Prior GI Procedures:
-EGD on 02/09/24-garcia
Findings:
Mildly severe esophagitis was found in the lower third of the esophagus.
Grade I varices were found in the lower third of the esophagus. They were small in size.
A single localized small erosion with active bleeding was found in the
cardia. It was not clear if this erosion was from scope trauma or
possibly a Ebenezer's type erosion. No obvious gastric varices seen. For
hemostasis, one hemostatic clip was successfully placed (MR conditional).
Hematin (altered blood/rfddbl-[id number]-ypmg material) was found in the
stomach. The examined duodenum was normal.
EGD: [facility] 06/29/23 EGD esophagitis no active bleeding
colonoscopy [facility] 06/29/23 diverticulosis no active bleeding
EGD : Done September 2023 [place] --irreg margins and erythema of mucosa no bleeding in GE junction c/w esophagitis, gastritis, pigmented mucosa
Assessment / Plan
-
Pt is a 58yo with hx decompensated cirrhosis with ascites requiring paracentesis, SBP, Grade I EV, (Etiology ? MASH/? ETOH per chart prior ETOH 5 + years ago, no formal serology work up at [facility] except hep B/C neg with hep B immunity and
prior eval with [facility] and [facility]. Prior SAAG with 1.4 with low protein c/w cirrhosis). Pt also noted with prior esophagitis, GI bleed with single small erosion with bleeding noted on cardia scope trauma vs ebenezer lesion,severe iron
deficiency anemia with hbg down to 3.1 on January, paroxysmal atrial fibrillation on Coumadin, CAD, end-stage renal disease on hemodialysis, heart failure with preserved ejection fraction, history of pleural effusions with pericardiocentesis,
hypertension, spinal stenosis, GERD, ?Dunlap's Esophagus, prior C-diff, DM, CHF, migraines, gastritis, constipation with multiple admission over last year for complication of cirrhosis. He now present from [facility] with coffee ground emesis after
recent covid isolation at [facility]. Pt last admission was in January with GI bleeding requiring transfusion with EGD noted mild severe esophagitis, grade I EV in lower third of esophagus, small erosion with active bleeding in cardia- scope trauma vs
ebenezer lesion. no gastric varix seen and clip placed. Scope was complicated by aspiration. In review with patient he is now noted with multiple episode of vomiting coffee ground last 2 days. After admission he is noted with K 6.6 , glucose
50, INR 3.16 (with use of coumadin), albumin 2.4 with normal LFT's. hbg is stable at 10.8 with normal platelets of 350. Pt was given vitamin K, PPI and Octreotide gtt along with abx with cirrhosis and GI bleeding. Pt also noted with severe HTN on
admission with BP's 200's.
-coffee ground emesis
-hx cirrhosis
-ascites requiring periodic paracentesis with hx prior SBP 10/2023 ( no prophylaxis prior to admission)
-mild change in mental status
-anemia acute blood loss
- hx several GI bleeds last on January with hbg to 3.1- noted mild severe esophagitis, grade I EV in lower third of esophagus, small erosion with active bleed in cardia- scope trauma vs ebenezer lesion
-HTN urgency on admission
-hyperkalemia
-hypoglycemia
-PAF (Coumadin prior to admission)
other med problems:
NIDDM
ESRD on HD
HFpEF
Barretts esophagus
pleural effusion
hx pericardicentesis
spinal stenosis
-C-diff
-hx constipation
PLAN:
Etiology of coffee ground emesis related to recent noted esophagitis. less likely EV bleed as only Grade 1 note on recent EGD vs other
reviewed with nursing no bleeding last few hours and tolerating clear liquids
hbg stable 10.9
pt with multiple other issue with HTN urgency BP 215/95 this am, K 6.6, glucose to 50
hold EGD for now unless recurrent bleeding
cont PPI and octreotide gtt
trend hbg transfuse less than 7
trend INR s/p vitamin K and K centra consider prison risk/benefit of Coumadin with cirrhosis and GI bleeding
ok for clears unless signs of aggressive bleeding
add ammonia with some mild mental status changes to rule out HE
? etiology of cirrhosis MASH-? prior ETOH denies current use. Pt with no formal DH work up --pt will need eventual OP follow up for serology work up/ add AFP/CT as noted
pt was due for OP follow up at [facility] per last admission for cirrhosis and consider VCE with prior anemia and GI bleeding but pt states limited follow up OP with multiple IP admissions
agree with para today will add cell count to eval for SBP-- pt with hx SBP in past no prophylaxis prior to admission
cont abx in setting of GI bleed and cirrhosis
cont medical management of hyperkalemia/hypoglycemia/HTN urgency per hospitalist/renal MD
-
-
Thank you for consultation and allowing me to participate in the patient's care. Please call the [facility] physician during the after hours with any questions or concerns.
[2024-03-16 07:38] LABS: Glucose - Point of Care 79 mg/dl (70-99)
[2024-03-16 07:38] LABS: Glucose - Point of Care 84 mg/dl (70-99)
[2024-03-16 08:09] LABS: Glucose - Point of Care 57 mg/dl (70-99)
[2024-03-16] MEDS: PROCARDIA XL (EXTENDED RELEASE) 30 MG PO (08:13)
[2024-03-16] MEDS: APRESOLINE 100 MG PO ×2 (08:13→20:25)
[2024-03-16] MEDS: CATAPRES 0.2 MG PO ×2 (08:13→20:26)
[2024-03-16] MEDS: COZAAR 100 MG PO (08:16)
[2024-03-16] MEDS: ZOFRAN 4 MG IV ×3 (08:17→21:11)
[2024-03-16] MEDS: PROTONIX 100 IV ×2 (08:23→17:24)
[2024-03-16] MEDS: SANDOSTATIN 500.6 MCG IV ×2 (08:27→20:27)
[2024-03-16 08:29] LABS: Hematocrit 33.8 % (39.0-52.0); Hemoglobin 10.9 g/dL (13.0-18.0); Mean Corp Hgb Conc. 32.2 g/dL (33.0-37.0); Mean Corpuscular Volume 93.1 fL (80.0-94.0); Mean Platelet Volume 8.9 fL (7.4-10.4); Platelet Count 350 10^3/uL (130-400); Red Blood Cell Count 3.63 10^6/uL (4.70-6.10); Red Cell Dist. Width 14.9 % (11.5-14.5); White Blood Cell Count 9.5 10^3/uL (4.8-10.8)
[2024-03-16 08:30] LABS: Glucose - Point of Care 67 mg/dl (70-99)
[2024-03-16 08:32] LABS: INR 2.23; PT 25.1 Sec (11.4-14.6)
[2024-03-16 08:46] LABS: Glucose - Point of Care 77 mg/dl (70-99)
[2024-03-16 08:58] LABS: Blood Urea Nitrogen 70 mg/dl (9-20); Carbon Dioxide 19 mmol/L (22-30); Chloride 102 mmol/L (98-107); Estimated Creatinine Clearance 9 ml/min; Glucose 64 mg/dl (70-99); Magnesium 2.5 mg/dl (1.6-2.3); Potassium 6.6 mmol/L (3.5-5.1); Sodium 137 mmol/L (135-145); Total Protein 6.6 g/dl (6.3-8.2)
[2024-03-16] MEDS: KCENTRA 80 UNIT IV (09:13)
--- NOTE | 2024-03-16 09:48 | W.PN.HOSP.TC ---
Today's Communication/Plan
-
See plan
Assessment / Plan
Assessment / Plan
Impression:
Presentation with coffee-ground emesis reported at nursing facility.
� Recent hospitalization with life-threatening gastrointestinal hemorrhage and severe acute blood loss anemia secondary to anticoagulation with warfarin (02/07 - 02/24)
Accelerated hypertension secondary to volume overload.
Recurrent ascites
Diabetes with hypoglycemia
Other conditions:
Cirrhosis? EtOH/SEN/? Viral hepatitis.
-Recurrent ascites requiring large-volume paracentesis.
History of SBP.
End-stage renal disease on hemodialysis Thursday
Accelerated hypertension likely related to volume overload.
Recurrent transudative pleural effusions.
Type 2 diabetes.
Paroxysmal atrial fibrillation.
Anticoagulation with warfarin.
Chronic anemia
Dyslipidemia
CAD with history of stents in 2015
Chronic heart failure preserved EF
PAD with history of femoral-popliteal bypass chronic ambulatory dysfunction
Spinal stenosis with chronic pain syndrome requiring opiates
Depression
Plan:
Presentation with coffee-ground emesis reported at nursing facility.
Patient reported nausea
No episodes of emesis since admission.
Stable hemoglobin 11.5�10.9 (9.0 on 02/24 admission requiring large-volume transfusion)
Coagulopathy with INR 3.01 reversed with vitamin K and Kcentra.
Suspect upper GI source recurrent hemorrhage
EGD 02/10: Severe esophagitis/grade 1 varices at the lower third of the esophagus/single localized small erosion with active bleeding at the cardia? Ebenezer lesions with no gastric varices treated with hemostatic clip.
GI consultation, current plan is for watchful waiting monitor hemoglobin closely. Tentatively for EGD on 03/18 unless active bleeding
Serial hemoglobin
Follow coagulation profile post reversal
IV PPI/Protonix drip
Octreotide drip
IV ceftriaxone for SBP prophylaxis.
Cirrhosis unknown primary cause? SEN versus alcohol versus viral hepatitis.
MELD not reliable in patient with end-stage renal disease on anticoagulation
Suspect advanced hepatic dysfunction given persistent hypoglycemia
Check ammonia level
Recurrent ascites with prior history of SBP
Most recent paracentesis 4600 cc with no evidence of SBP. SAAG>1.3 consistent with portal hypertension.
Continue prophylactic ceftriaxone for now.
Interventional radiology for paracentesis with albumin.
End-stage renal disease
Hemodialysis Thursday. Reports missing dialysis this Thursday.
Massive volume overload with ascites and accelerated hypertension.
EGD scheduled urgently.
Multidrug resistant hypertension continue preadmission antihypertensive regimen including hydralazine, clonidine, nifedipine, losartan. Not clear if patient would benefit from diuretics including spironolactone.
Type 2 diabetes with hypoglycemia
Suspect advanced hepatic dysfunction contributing.
Most recent hemoglobin 5.2.
Hold off on standing dose of insulin most likely will not require in the future.
Continue basal protocol with serial Accu-Cheks.
Paroxysmal atrial fibrillation
Currently in sinus rhythm.
Not on any AV tru blocking medications or arrhythmics prior to presentation.
Monitor rate and rhythm.
Anticoagulation: Patient is a poor candidate for systemic anticoagulation given advanced hepatic disease, and risk for hemorrhagic complications such as recent with life-threatening hemorrhage and severe anemia required large volume transfusions.
Risk of hemorrhagic complications weight overweight in comparison of thromboembolic.
CHF preserved EF.
CAD with history of stents
PAD.
Volume control with HD
Continue current antihypertensive regimen as above.
Continue statin.
Chronic pain due to spinal stenosis
Chronic ambulatory dysfunction
Continue oxycodone with caution for oversedation.
Physical therapy assessment once stable.
Full code
DVT prophylaxis/mechanical
Anticipated Discharge: > 48 hours
Subjective/Interval History
-
Date of Service: March 16, 2024
Objective Data
-
Labs:
Laboratory Results
03/15/24 03/15/24 03/16/24
23:22 23:54 05:48
WBC 9.8
Hgb 10.8 L 11.5 L
Hct 34.5 L 35.7 L
Plt Count 358
PT 32.3 H 31.1 H
INR 3.16 3.01
APTT 86.5 H 85.0 H
Sodium 138 141
Potassium 6.0 H
Chloride 104 110 H
Carbon Dioxide 20 L 17 L
BUN 69 H 62 H
Creatinine 9.4 H* 8.2 H*
Glucose 56 L 50 L*
Calcium 8.7 7.5 L
Total Bilirubin Cancelled 0.5
AST Cancelled 21
ALT Cancelled < 10
Alkaline Phosphatase Cancelled 91
03/16/24 03/16/24 03/16/24
08:12 11:30 17:30
WBC 9.5
Hgb 10.9 L Pending Pending
Hct 33.8 L Pending Pending
Plt Count 350
PT 25.1 H
INR 2.23
APTT
Sodium 137
Potassium 6.6 H*
Chloride 102
Carbon Dioxide 19 L
BUN 70 H
Creatinine 9.8 H*
Glucose 64 L
Calcium 9.0 D
Total Bilirubin
AST
ALT
Alkaline Phosphatase
03/16/24
23:30
WBC
Hgb Pending
Hct Pending
Plt Count
PT
INR
APTT
Sodium
Potassium
Chloride
Carbon Dioxide
BUN
Creatinine
Glucose
Calcium
Total Bilirubin
AST
ALT
Alkaline Phosphatase
Vital Signs:
Vital Signs
Temp Pulse Resp BP Pulse Ox
98.1 F 89 25 215/95 96
03/16/24 07:36 03/16/24 08:16 03/16/24 06:32 03/16/24 08:16 03/16/24 06:32
Physical Exam
-
General: Well Developed and No Apparent Distress
HEENT: Normocephalic, Atraumatic and Moist Mucous Membranes
Respiratory: Clear to Auscultation
Cardiac: Regular Rhythm and S1/S2; Negative Murmur, Rub or Gallop
GI: Soft, Normal Bowel Sounds, Tender and Distended; Negative Organomegaly
Rectal: Deferred by Provider
Musculoskeletal: No Clubbing, No Cyanosis and No Edema
Skin: Negative Rash
Neuro: Nonfocal/Grossly Intact
--- NOTE | 2024-03-16 10:36 | W.CON.NEPH ---
Consultation
-
Date/Time Consultation Requested: 03/16/24 0600
Date/Time Consultation Performed: 03/16/24 0945
Requesting Provider: Yannick Gamboa
Performing Provider: Jessica Burns
Reason for Consultation: ESRD
Medical History
-
Chief Complaint: n/v, hematemesis
History of Present Illness:
58 yo man with hx ESRD on HD MWF from [facility](previously T//Sat at [facility]), non compliance with HDs, residual urine output on bumex, CAD, atrial fibrillation on coumadin, IDDM, HTN on Procardia, losartan, clonidine,hydralazine,
Aldactone, HLD on statin, Vascepa, hyperphosphatemia on Renvela, recent new diagnosis of cirrhosis and ascites (multiple hospitalization 12/29-01/01/24,01/19/24 to 01/22/24 ), had prolonged admit from 02/07 to 02/24 for severe life threatening GIB hb at
3 and required multiple transfusions, EGD showed severe esophagitis, gastric erosion with bleed, grade 1 E varices. Once he was stabilized discharged to [facility] for rehab. He now comes back with abd discomfort and due for paracentesis, with
n/v, and hematemesis. HIs hb was 10.9 and he is persistently hypoglycemic. He reports missing HD on Thursday since was not feeling well. His k today at 6.6. HIs BPs elevated at 200 range. History is limited since pt was drowsy during visit. No fever,
no chills on RA.
Past Medical History
1. ESRD x5 years presumed due to diabetic nephropathy.
2. Chronic pain.
3. Chronic back pain.
4. Atrial fibrillation on Coumadin.
5. Chronic anemia.
6. History of thoracentesis.
cirrhosis and ascites s/p paracentesis
7. History of pericardiocentesis at outside hospital back in fall
of 2022.
8. Elevated HEYDI with subsequent negative testing.
9. Peripheral neuropathy.
10. History of left upper extremity radiocephalic AV fistula.
11. History of hypertension on multi-drug regimen.
12. History of coronary artery disease.
13. History of peripheral eosinophilia.
14. Hyperphosphatemia.
Past Medical History: Other
Past Surgical History: Other (Left arm AVG)
Social History
Tobacco: Former Smoker
Alcohol: Former
Drug: None
Living: [facility]
Family History
Family History: Not Pertinent
Allergies / Home Medications
Allergy/AdvReac Type Severity Reaction Status Date / Time
No Known Allergies Allergy Verified 03/15/24 23:25
�Medication �Instructions �Recorded �Confirmed �Type
atorvastatin 80 mg tablet 80 mg PO HS High Cholesterol 12/23/22 03/15/24 History
lidocaine-prilocaine 2.5 %-2.5 % 1 applic topical TUTHSA PRN port 12/23/22 03/15/24 History
topical cream access
losartan 100 mg tablet 100 mg PO DAILY Blood Pressure 07/29/23 03/15/24 History
sertraline 100 mg tablet 100 mg PO DAILY Mental Health 07/29/23 03/15/24 History
vitamin B complex-vitamin C 100 1 tab PO DAILY Supplement 07/29/23 03/15/24 History
mg-folic acid 1 mg tablet
(Dialyvite)
clonidine HCl 0.2 mg tablet 0.2 mg PO TID Blood pressure 10/29/23 03/15/24 History
hydralazine 100 mg tablet 100 mg PO TID Blood Pressure 10/29/23 03/15/24 History
acetaminophen 500 mg tablet 500 mg PO Q6HPRN PRN mild pain #0 01/22/24 03/15/24 Rx
(Tylenol Extra Strength) tabs
insulin lispro 100 unit/mL 4 unit (0.04 mL) SC AC Diabetes #0 02/17/24 03/15/24 Rx
subcutaneous pen mL
nifedipine 30 mg tablet,extended 30 mg PO DAILY #30 tabs 02/17/24 03/15/24 Rx
release
pantoprazole 40 mg tablet,delayed 40 mg PO BID #60 tabs 02/17/24 03/15/24 Rx
release
sevelamer carbonate 800 mg tablet 1,600 mg (2 x 800 mg) PO MEALS 02/17/24 03/15/24 Rx
#180 tabs
oxycodone 5 mg tablet 5 mg PO Q4HPRN PRN severe pain #4 02/24/24 03/15/24 Rx
tabs
spironolactone 25 mg tablet 25 mg PO DAILY #30 tabs 02/24/24 03/15/24 Rx
warfarin 3 mg tablet 3 mg PO DAILY Blood Clot 02/24/24 03/15/24 Rx
Prevention/Tx #0 tabs
Review of Systems
-
all complete 12 point ROS have been inquired and found negative other than stated in HPI -however history is limited as pt is sleepy
Physical Exam
Vital Signs
Vital Signs
Temp Pulse Resp BP Pulse Ox
98.1 F 80 19 180/81 97
03/16/24 07:36 03/16/24 10:15 03/16/24 10:15 03/16/24 10:00 03/16/24 10:15
Lab Results
WBC 9.5 10^3/uL (4.8-10.8) 03/16/24 08:12
RBC 3.63 10^6/uL (4.70-6.10) L 03/16/24 08:12
Plt Count 350 10^3/uL (130-400) 03/16/24 08:12
Sodium 137 mmol/L (135-145) 03/16/24 08:12
Potassium 6.6 mmol/L (3.5-5.1) H* 03/16/24 08:12
Chloride 102 mmol/L (98-107) 03/16/24 08:12
Carbon Dioxide 19 mmol/L (22-30) L 03/16/24 08:12
BUN 70 mg/dl (9-20) H 03/16/24 08:12
Creatinine 9.8 mg/dL (0.7-1.3) H* 03/16/24 08:12
eGFR 5.60 03/16/24 08:12
Glucose 64 mg/dl (70-99) L 03/16/24 08:12
Calcium 9.0 mg/dl (8.4-10.2) D 03/16/24 08:12
Albumin 2.4 g/dl (3.5-5.0) L 03/15/24 23:54
CT abd /pelvis with contrast:
IMPRESSION:
Massive ascites, slightly increased in volume in comparison to prior CT.
Markedly atrophic [place] kidneys bilaterally again noted, patient is dialysis dependent.
Contracted gallbladder with gallstones. No gross findings to suggest biliary tract dilatation.
Moderate volume colonic stool burden. Intestinal bowel gas pattern nonobstructive. No free air.
Again suspected small fluid collection the left gluteal subcutaneous soft tissues similar to prior study, possibly representing a hematoma.
Decreased bilateral lower lobe consolidations and decreased now small bilateral pleural effusions in comparison to prior CT.
Physical Exam
General: Awake, AOx3 and Nontoxic
HEENT: EOMI and Facial Symmetry
Respiratory: Clear, Nonlabored Respirations and Other (decreased BS)
Cardiac: S1/S2 and Regular Rate/Rhythm
Breast: Deferred by me
Abdomen: Other (distended and mild TTP, soft)
Musculoskeletal: No Cyanosis and Edema (1+)
Skin: No Rash
Neuro: Nonfocal/Grossly Intact
Psych: Appropriate and Other (poor insight)
Vascular Access: AVF
Data Reviewed
-
Radiology: Report Reviewed by me and Discussed with Patient
Labs: Labs Reviewed by me and Discussed with Patient
Assessment/Plan
-
Impression:
coffee-ground emesis -GIB
Recent hospitalization with life-threatening gastrointestinal hemorrhage
Accelerated hypertension secondary to volume overload.
Recurrent ascites
hypoglycemia
Coumadin Coagulopathy
Hyperkalemia
Metabolic Acidosis
ESRD on hemodialysis at [facility], previously TTS [facility]
Anemia of ESRD
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
Paroxysmal Atrial Fibrillation
Chronic HFpEF
History of bilateral pleural effusions status post thoracentesis
History of pericardial effusion status post pericardiocentesis
Coronary artery disease
Essential hypertension
DM2 with multiple microvascular complications
Hyperlipidemia
Spinal stenosis
Anxiety/depression
L radial AVF
Plan:
A/w hematemesis from NH
missed HD on Thursday and is hyperkalemic
arrange HD today , UF as much as he tolerates
need paracentesis when INR allows
BP are high, resume home meds and likely UF will help
abx per primary
follow h/h, on PPI and octreotide gtt
transfuse prn
follow BGs, on clear liquid diet, of insulin
d/w primary
He has multiple admits recently mainly for decompensated liver disease, non adherence to HD suggest over all retirement prognosis is poor
--- NOTE | 2024-03-16 10:53 | CM ---
Addendum entered by Nuria Bryant RN 03/16/24 11:17:
Patient will need PT/OT Evals when less medically acute.
Original Note:
Patient from [facility] with Hx ESRD on HD and GI bleed. Plan EGD when INR allows, per MD notes. Clear liquids. Receiving IV Abx, IV Octreotide.
Spoke with [facility], [facility];
the patient was at their facility for short term rehab and was receiving PT/OT.
He is A/O at baseline, required mod assist for ADLs, transfers and ambulation.
The patient receives HD through [facility].
The ph for report [phone], fax [phone].
Plan confirm return to [facility] with patient.
Plan return to [facility] when medically ready.
[2024-03-16 11:29] LABS: COVID-19 Antigen Negative (Negative)
[2024-03-16 12:49] LABS: Glucose - Point of Care 108 mg/dl (70-99)
[2024-03-16 12:58] LABS: Hematocrit 31.9 % (39.0-52.0); Hemoglobin 10.5 g/dL (13.0-18.0)
[2024-03-16 13:04] LABS: Ammonia < 9 umol/L (9-30)
[2024-03-16] MEDS: RENVELA PO ×2 (13:07→17:28)
[2024-03-16] MEDS: DILAUDID 0.5 MG IV ×2 (13:13→22:13)
--- NOTE | 2024-03-16 13:36 | PTCARENOTE ---
Patient transferred to IMU during [facility] shift [facility]. Blood pressure was elevated 200/100, potassium >6. Patient was able to take his oral medication and is receiving dialysis at this time. blood pressure is now 136/83. Patient complains of nausea,
relieved with IV Zofran. Clear liquids in small amounts. Small amounts of liquid brown emesis discussed with GI team. Patient was on covid isolation at previous facility, discussed with Infection control, stated that patient is out of isolation
window. Informed Dr. Kapoor. For possible paracentsis today.
--- NOTE | 2024-03-16 15:31 | W.PN.NEPH.HD ---
Assessment
-
pt seen during HD
vitals stable
UF as tolerates, seem below EDW
AVF functions well
Progress Note - Hemodialysis
-
Date of Service: March 16, 2024
Duration: 4 hours
Potassium Bath: 2
Calcium Bath: 2.5
Opti-Dialyzer: 160
Ultrafiltration: Other (1.5-2.5)
Blood Flow: 400
Dialysate Flow: 600
Heparin: no
EPO: no
[2024-03-16 17:17] LABS: Hematocrit 37.2 % (39.0-52.0)
[2024-03-16 17:21] LABS: Glucose - Point of Care 103 mg/dl (70-99)
[2024-03-16] MEDS: APRESOLINE PO (17:27)
[2024-03-16] MEDS: CATAPRES PO (17:27)
[2024-03-16] MEDS: STERILE WATER FOR INJECTION IV (19:40)
[2024-03-16] MEDS: LIPITOR 80 MG PO (20:26)
--- NOTE | 2024-03-16 21:47 | PTCARENOTE ---
Caring for pt from 7p-11p. aaox3, flat affect. SR BBB/ST, trace edema BLE. SCD's on patient, brown PVD legs. Remains on RA diminished lung sounds. Oliguric. Continues to have nausea & vomiting. emesis is brown, not vomiting large amounts, small
frequent episodes. Zofran given. Ascites, round distended hard abdomen, +BS. Foam intact on sacrum. Heel foams. Remains clear liquid diet. Monitoring HGB Q6H. L AVF +thrill/bruit. Protonix gtt & Sandostatin gtt running. Accu check 162. BP's elevated
in beginning of shift, scheduled Bp meds given. Will reassess for PRN hydralazine. Dilaudid given for generalized pain. CAll nieto in reach.
[2024-03-16] MEDS: APRESOLINE 10 MG IV (22:13)
[2024-03-16 22:16] LABS: Glucose - Point of Care 162 mg/dl (70-99)
[2024-03-17] VITALS (27 sets, daily range): BP systolic 127–211; BP diastolic 63–102; BMI 23.2
--- NOTE | 2024-03-17 01:14 | PTCARENOTE ---
Pt received from previous RN in bed. AAOx3, flat. Full physical assessment documented (refer to worklist). Pt with small amounts of coffee ground emesis, reporting hunger ---> requesting crackers. Clear liq diet reinforced. BPs elevated despite
PRN hydralazine administered previously. [facility] covering house made aware, electronic orders received, then d/c'd as slightly improved. Sacral and heel foams c/d/i. 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 #22 RH protonix gtt infusing w/o complication, #22 RFA
(basilic) w/octreotide gtt infusing w/o complication. #22 RFA (cephalic) leaking and d/c'd. Call gerson w/in reach.
[2024-03-17] MEDS: PROTONIX 100 IV ×2 (02:37→12:03)
[2024-03-17] MEDS: APRESOLINE 10 MG IV ×3 (02:39→10:17)
[2024-03-17] MEDS: PROCARDIA XL (EXTENDED RELEASE) 30 MG PO (04:37)
[2024-03-17 04:48] LABS: % Eosinophils 6.1 % (0-6); % Immature Granulocytes 0.3 % (0-0.5); % Lymphocytes 6.2 % (20.5-51.1); % Monocytes 6.8 % (1.7-9.3); % Neutrophils 79.6 % (42.2-75.2); Absolute Basophils 0.1 10^3/uL (0-0.2); Absolute Eosinophils 0.7 10^3/uL (0-0.7); Absolute Lymphocytes 0.7 10^3/uL (1.2-3.4); Absolute Monocytes 0.8 10^3/uL (0.1-0.6); Absolute Neutrophils 8.7 10^3/uL (1.4-6.5); Hematocrit 32.1 % (39.0-52.0); Hemoglobin 10.3 g/dL (13.0-18.0); Mean Corp Hgb Conc. 32.1 g/dL (33.0-37.0); Mean Corpuscular Hgb 30.5 pg (27.0-31.0); Mean Platelet Volume 9.2 fL (7.4-10.4); Nucleated Red Blood Cells % 0 % (-); Platelet Count 310 10^3/uL (130-400); Red Blood Cell Count 3.38 10^6/uL (4.70-6.10)
--- NOTE | 2024-03-17 04:57 | PTCARENOTE ---
MICHELLE covering house contacted via TT regarding BP 200/93, instructed to give one of morning medicines. Refer to MAR.
[2024-03-17 04:58] LABS: PT 14.8 Sec (11.4-14.6)
[2024-03-17 05:13] LABS: Blood Urea Nitrogen 40 mg/dl (9-20); Calcium 8.4 mg/dl (8.4-10.2); Carbon Dioxide 23 mmol/L (22-30); Chloride 100 mmol/L (98-107); Estimated Creatinine Clearance 12 ml/min; Glucose 99 mg/dl (70-99); Potassium 5.9 mmol/L (3.5-5.1); Sodium 136 mmol/L (135-145); eGFR 8.69
[2024-03-17] MEDS: ROCEPHIN 1000 MG IV (06:20)
[2024-03-17] MEDS: STERILE WATER FOR INJECTION 10 ML IV (06:21)
[2024-03-17] MEDS: SANDOSTATIN 500.6 MCG IV ×2 (07:48→19:50)
[2024-03-17] MEDS: COZAAR 100 MG PO (07:48)
[2024-03-17] MEDS: CATAPRES 0.2 MG PO ×3 (07:49→21:02)
[2024-03-17] MEDS: APRESOLINE 100 MG PO ×3 (07:49→21:02)
[2024-03-17 07:53] LABS: Glucose - Point of Care 87 mg/dl (70-99)
--- NOTE | 2024-03-17 08:00 | PTCARENOTE ---
pt received at change of shift. pt drowsy, arouses to voice. orientedx3. generalized weakness. 1 assist to sit at side of bed. ST on telemetry heart rate low 100s. blood pressure high- 200s- PO bp meds given after given zofran for nausea. Pulses
weakly palpable trace lower extremity edema. pt on room air, sat 93%. lung sounds diminished. intermittent moist productive cough. clear liquid diet. intermittent nausea with small amount of brown emesis. abdomen round, distended. oliguric. left AV
fistula with +bruit/thrill. see worklist for full nursing assessment and interventions. pt updated on plan of care.
[2024-03-17] MEDS: TYLENOL 650 MG PO (08:03)
[2024-03-17] MEDS: ZOFRAN 4 MG IV (08:03)
[2024-03-17] MEDS: RENVELA PO (08:42)
--- NOTE | 2024-03-17 09:28 | PTCARENOTE ---
blood pressure 203/102- not due for prn hydralazine at this time- hospitalist notified. also notified of temp of 101.8 axillary
[2024-03-17] MEDS: RENVELA 1600 MG PO ×2 (09:35→16:35)
--- NOTE | 2024-03-17 10:00 | W.PN.HOSP.TC ---
Today's Communication/Plan
-
Paracentesis by IR
H&H and BMP in the p.m.
Assessment / Plan
Assessment / Plan
58 yo man with hx ESRD on HD MWF from [facility](previously T//Sat at [facility]), non compliance with HDs, residual urine output on bumex, CAD, atrial fibrillation on coumadin, IDDM, HTN on Procardia, losartan, clonidine,hydralazine,
Aldactone, HLD on statin, Vascepa, hyperphosphatemia on Renvela, recent new diagnosis of cirrhosis and ascites presented with abdominal discomfort and due for paracentesis, with n/v, and hematemesis
Impression:
Presentation with coffee-ground emesis reported at nursing facility.
� Recent hospitalization with life-threatening gastrointestinal hemorrhage and severe acute blood loss anemia secondary to anticoagulation with warfarin (02/07 - 02/24)
Accelerated hypertension secondary to volume overload.
Recurrent ascites
Diabetes with hypoglycemia
Plan:
Presentation with coffee-ground emesis reported at nursing facility.
Stable hemoglobin 11.5�10.9 (9.0 on 02/24 admission requiring large-volume transfusion)
Coagulopathy with INR 3.01 reversed with vitamin K and Kcentra.
Suspect upper GI source recurrent hemorrhage
EGD 02/10: Severe esophagitis/grade 1 varices at the lower third of the esophagus/single localized small erosion with active bleeding at the cardia? Ebenezer lesions with no gastric varices treated with hemostatic clip.
GI consultation, current plan is for watchful waiting monitor hemoglobin closely. Tentatively for EGD on 03/18 unless active bleeding. H&H and bmp today pm
IV PPI/Protonix drip
Octreotide drip
IV ceftriaxone for SBP prophylaxis.
#Cirrhosis unknown primary cause? SEN versus alcohol versus viral hepatitis.
MELD not reliable in patient with end-stage renal disease on anticoagulation
Suspect advanced hepatic dysfunction given persistent hypoglycemia
ammonia level <9
Other conditions:
#Recurrent ascites with prior history of SBP
Most recent paracentesis 4600 cc with no evidence of SBP. SAAG>1.3 consistent with portal hypertension.
Continue prophylactic ceftriaxone for now.
Interventional radiology for paracentesis with albumin.
#End-stage renal disease
Hemodialysis Thursday. Reports missing dialysis this Thursday.
Massive volume overload with ascites and accelerated hypertension.
HD on 03/16
Multidrug resistant hypertension continue preadmission antihypertensive regimen including hydralazine, clonidine, nifedipine, losartan. Not clear if patient would benefit from diuretics including spironolactone.
#Type 2 diabetes with hypoglycemia
Suspect advanced hepatic dysfunction contributing.
Most recent hemoglobin 10.3
Hold off on standing dose of insulin most likely will not require in the future.
Continue basal protocol with serial Accu-Cheks.
#Paroxysmal atrial fibrillation
Currently in sinus rhythm.
Not on any AV tru blocking medications or arrhythmics prior to presentation.
Monitor rate and rhythm.
Anticoagulation: Patient is a poor candidate for systemic anticoagulation given advanced hepatic disease, and risk for hemorrhagic complications such as recent with life-threatening hemorrhage and severe anemia required large volume transfusions.
Risk of hemorrhagic complications weight overweight in comparison of thromboembolic.
#CHF preserved EF.
CAD with history of stents
PAD.
Volume control with HD
Continue current antihypertensive regimen as above.
Continue statin.
#Chronic pain due to spinal stenosis
Chronic ambulatory dysfunction
Continue oxycodone with caution for oversedation.
Physical therapy assessment once stable.
Other conditions:
Cirrhosis? EtOH/SEN/? Viral hepatitis.
-Recurrent ascites requiring large-volume paracentesis.
History of SBP.
End-stage renal disease on hemodialysis Thursday
Accelerated hypertension likely related to volume overload.
Recurrent transudative pleural effusions.
Type 2 diabetes.
Paroxysmal atrial fibrillation.
Anticoagulation with warfarin.
Chronic anemia
Dyslipidemia
CAD with history of stents in 2016
Chronic heart failure preserved EF
PAD with history of femoral-popliteal bypass chronic ambulatory dysfunction
Spinal stenosis with chronic pain syndrome requiring opiates
Depression
Full code
DVT prophylaxis/mechanical
Anticipated Discharge: > 48 hours
Subjective/Interval History
-
Date of Service: March 17, 2024
Interval events: High BP
Objective Data
-
Labs:
Laboratory Results
03/16/24 03/17/24
23:44 04:33
WBC 11.0 H
Hgb 11.0 L 10.3 L
Hct 34.0 L 32.1 L
Plt Count 310
PT 14.8 H
INR 1.10
Sodium 136
Potassium 5.9 H
Chloride 100
Carbon Dioxide 23
BUN 40 H
Creatinine 6.8 H*
Glucose 99
Calcium 8.4
Vital Signs:
Vital Signs
Temp Pulse Resp BP Pulse Ox
99.2 F 108 23 203/102 92
03/17/24 05:53 03/17/24 09:00 03/17/24 09:00 03/17/24 09:00 03/17/24 09:00
I&O
03/16/24 03/17/24 03/18/24
06:59 06:59 06:59
Intake Total 1040 / 1040 240 / 240
Output Total 0 / 0
Balance 1040 / 1040 240 / 240
Review of Systems
-
History Source: Patient
Constitutional: Reports Other (states he has pain all over)
Physical Exam
-
General: Well Developed and No Apparent Distress
HEENT: Normocephalic, Atraumatic and Moist Mucous Membranes
Respiratory: Clear to Auscultation
Cardiac: Regular Rhythm and S1/S2; Negative Murmur, Rub or Gallop
GI: Soft, Normal Bowel Sounds, Tender and Distended; Negative Organomegaly
Rectal: Deferred by Provider
Musculoskeletal: No Clubbing, No Cyanosis and No Edema
Skin: Negative Rash
Neuro: Nonfocal/Grossly Intact
Psych: Calm
Data Reviewed
-
Labs: Labs Reviewed by me, Discussed with Physician and Discussed with Patient
--- NOTE | 2024-03-17 11:23 | W.PN.NEPH.PH ---
Today's Communication / Plan
-
HD tomorrow
Assessment/Plan
-
Impression:
coffee-ground emesis -GIB
Recent hospitalization with life-threatening gastrointestinal hemorrhage
Accelerated hypertension secondary to volume overload.
Recurrent ascites
hypoglycemia
Coumadin Coagulopathy
Hyperkalemia
Metabolic Acidosis
ESRD on hemodialysis at [facility], previously TTS [facility]
Anemia of ESRD
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
Paroxysmal Atrial Fibrillation
Chronic HFpEF
History of bilateral pleural effusions status post thoracentesis
History of pericardial effusion status post pericardiocentesis
Coronary artery disease
Essential hypertension
DM2 with multiple microvascular complications
Hyperlipidemia
Spinal stenosis
Anxiety/depression
L radial AVF
Plan:
A/w hematemesis from NH
s/p HD yesterday, wt no sig change
need paracentesis when able
BP better with resuming home meds
abx per primary , febrile
stable h/h, on PPI and octreotide gtt, INR down , EGD Per GI
transfuse prn
He has multiple admits recently mainly for decompensated liver disease, non adherence to HD suggest over all alf prognosis is poor
-
-
Date of Service: March 17, 2024
CC / HPI / ROS
-
Chief Complaint:
ESRD
History of Present Illness:
hb stable 10 range, febrile this am
BP high but better post meds
tolerated HD yesterday
Review of Systems:
no cp or sob
but c/o abd distension and pain
dark liquid when vomits
Labs
-
Labs:
WBC 11.0 10^3/uL (4.8-10.8) H 03/17/24 04:33
RBC 3.38 10^6/uL (4.70-6.10) L 03/17/24 04:33
Plt Count 310 10^3/uL (130-400) 03/17/24 04:33
eGFR 8.69 03/17/24 04:33
Albumin 2.4 g/dl (3.5-5.0) L 03/15/24 23:54
Physical Exam
-
Vital Signs:
Vital Signs
Temp Pulse Resp BP Pulse Ox
101.8 F H 89 19 129/70 93
03/17/24 09:30 03/17/24 12:00 03/17/24 12:00 03/17/24 12:00 03/17/24 12:00
Cardiovascular:: Regular rate and rhythm
Respiratory:: Bilateral: CTA (anteriorly)
Lung Excursion:: Normal
Abdomen:: Distended, Soft and Tender
Extremity Edema:: +1: Bilateral:
Alfred Catheter: No
[2024-03-17 12:49] LABS: Glucose - Point of Care 123 mg/dl (70-99)
[2024-03-17 16:01] LABS: Hematocrit 30.5 % (39.0-52.0); Hemoglobin 9.6 g/dL (13.0-18.0)
[2024-03-17 16:28] LABS: Blood Urea Nitrogen 42 mg/dl (9-20); Calcium 8.1 mg/dl (8.4-10.2); Carbon Dioxide 24 mmol/L (22-30); Chloride 99 mmol/L (98-107); Estimated Creatinine Clearance 12 ml/min; Glucose 176 mg/dl (70-99); Potassium 5.9 mmol/L (3.5-5.1); Sodium 136 mmol/L (135-145); eGFR 8.39
[2024-03-17 16:51] LABS: Glucose - Point of Care 166 mg/dl (70-99)
--- NOTE | 2024-03-17 18:04 | W.PN.GI.CBS2 ---
Today's Communication / Plan
-
increase antibiotics, para tomorrow, egd questionably tomorrow
Assessment / Plan
-
Pt is a 58yo with hx decompensated cirrhosis with ascites requiring paracentesis, SBP, Grade I EV, (Etiology ? MASH/? ETOH per chart prior ETOH 5 + years ago, no formal serology work up at [place] except hep B/C neg with hep B immunity and prior
eval with [facility] and [facility] GI. Prior SAAG with 1.4 with low protein c/w cirrhosis). Also history of paroxysmal atrial fibrillation on Coumadin, CAD, end-stage renal disease on hemodialysis, heart failure with preserved ejection fraction,
history of pleural effusions with pericardiocentesis, hypertension, spinal stenosis, GERD, ?Dunlap's Esophagus, prior C-diff, DM, CHF, migraines, gastritis, constipation with multiple admission over last year for complication of cirrhosis. He now
present from [facility] with coffee ground emesis after recent covid isolation at [facility]. Pt last admission was in January with GI bleeding and severe iron deficiency anemia with hbg down to 3.1 requiring transfusion with EGD noted mild severe esophagitis,
grade I EV in lower third of esophagus, small erosion with active bleeding in cardia- scope trauma vs ty lesion. no gastric varix seen and clip placed. Scope was complicated by aspiration.
Patient here now with coffee ground emesis with stable Hb, tense ascites and abd discomfort. Given vit K and Kcentra on admission.
Questionable fever today (axillary + fever, oral no fever - on d/w ID felt oral more likely to be accurate but do not recommend checking from different routes).
Unclear if he is bleeding or vomiting simply from the tense ascites (I favor the latter with stable hb) - brown stool on my exam today. I do NOT think this is variceal - had grade I varices EGD last month and brown stool with stable Hb. Also
questionably infected.
Recommendations:
- Continue octreotide, change IV PPI gtt to IV BID
- Clear liquid diet today NPO after midnight for possible EGD pending clinical status
- Unfortunately I discussed at length with hospitalist team re: para today there is no one in the hospital unfortunately who is able to do it
- With the concern for SBP I have increased his ceftriaxone to 2g daily with questionable fevers
- With questionable fevers I have asked primary team to check blood cultures
- No need for albumin as he is dialysis patient even if he does have SBP
- Plan for para tomorrow - again since dialysis patient no concern for HRS so can likely take off more volume even if this is SBP
- Hold diuretics until cell count is resulted tomorrow
- Patient needs daily MELD labs no labs ordered for tomorrow I have taken the liberty to order as well
- Coumadin on hold
- I d/w nephro regarding timing for tomorrow best order: dialysis --> para --> EGD - I asked the resident to coordinate with IR. I think the para should be before the EGD to decrease likelihood of aspiration (which he did last time). May need
intubation for EGD will d/w anesthesia tomorrow.
- Follow with [facility] GI outpatient
- Reviewed nephro notes pt with non adherence to HD and multiple admissions for liver dz care home poor prognosis
I spent extensive time coordination of care with patient 50 min total patient care.
Total Time Spent with Patient (in minutes): 50
Subjective
Subjective
Date of Service: March 17, 2024
abd discomfort due to tense ascites
vomiting brown material
Objective
Data Reviewed
Laboratory Data:
Laboratory Results
PT 14.8 Sec (11.4-14.6) H 03/17/24 04:33
INR 1.10 03/17/24 04:33
APTT 85.0 Sec (23.4-35.0) H 03/16/24 05:48
Magnesium 2.5 mg/dl (1.6-2.3) H 03/16/24 08:12
Total Bilirubin 0.5 mg/dl (0.2-1.3) 03/15/24 23:54
AST 21 U/L (17-59) 03/15/24 23:54
ALT < 10 U/L (0-50) 03/15/24 23:54
Alkaline Phosphatase 91 U/L (38-126) 03/15/24 23:54
Vital Signs and I&O:
Vital Signs
Temp Pulse Resp BP Pulse Ox
97.6 F 87 15 155/76 97
03/17/24 13:00 03/17/24 16:00 03/17/24 16:00 03/17/24 16:34 03/17/24 16:00
I&O
03/16/24 03/17/24 03/18/24
06:59 06:59 06:59
Intake Total 1040 / 1040 240 / 240
Output Total 0 / 0
Balance 1040 / 1040 240 / 240
Physical Exam
Physical Exam
HEENT: Anicteric
Cardiology: Normal Sinus Rhythm
Pulmonary: Clear
GI: Distended and Tender
Rectal: Brown
[2024-03-17] MEDS: ROCEPHIN 2000 MG IV (18:42)
[2024-03-17] MEDS: STERILE WATER FOR INJECTION 20 ML IV (18:42)
[2024-03-17] MEDS: NSS (PRESERVATIVE FREE) 10 ML IV (19:49)
[2024-03-17] MEDS: PROTONIX IV 40 MG IV (19:49)
[2024-03-17] MEDS: DILAUDID 0.5 MG IV (19:50)
--- NOTE | 2024-03-17 20:00 | PTCARENOTE ---
no changes in assessment, pt resting in bed, orientedx3. reports 9/10 back pain- prn Dilaudid given. SR on telemtry heart rate in 70s. 98% on room air. blood pressures better controlled 130-150s.
[2024-03-17 20:43] LABS: Hepatitis C Antibody Negative (Negative)
[2024-03-17] MEDS: LIPITOR 80 MG PO (21:03)
[2024-03-17 21:16] LABS: Glucose - Point of Care 181 mg/dl (70-99)
[2024-03-17 21:44] LABS: Glucose - Point of Care 222 mg/dl (70-99)
[2024-03-17 22:34] LABS: Hematocrit 27.7 % (39.0-52.0)
[2024-03-17 23:00] LABS: Blood Urea Nitrogen 43 mg/dl (9-20); Calcium 7.8 mg/dl (8.4-10.2); Carbon Dioxide 26 mmol/L (22-30); Chloride 98 mmol/L (98-107); Estimated Creatinine Clearance 11 ml/min; Glucose 179 mg/dl (70-99); Sodium 132 mmol/L (135-145); eGFR 7.85
[2024-03-18] VITALS (63 sets, daily range): BP systolic 93–203; BP diastolic 64–92; BMI 24.1
[2024-03-18] MEDS: DILAUDID 0.5 MG IV ×4 (00:07→20:28)
--- NOTE | 2024-03-18 01:20 | PTCARENOTE ---
Caring for patient 11p-7a. aaox3, pleasant. 9/10 generalized body pain, dilaudid given. Sandostatin gtt running. LAVF + bruit/thrill. NSR BBB on monitor, remains RA. NPO after midnight, pt updated with plan of care. Call nieto in reach.
[2024-03-18] MEDS: APRESOLINE 10 MG IV (04:21)
[2024-03-18] MEDS: PROCARDIA XL (EXTENDED RELEASE) 30 MG PO (06:33)
[2024-03-18] MEDS: APRESOLINE 100 MG PO ×3 (06:33→22:47)
[2024-03-18] MEDS: CATAPRES 0.2 MG PO ×3 (06:34→22:47)
--- NOTE | 2024-03-18 07:52 | W.PN.HOSP.TC ---
Addendum entered and electronically signed by Titi Wright MD, Resident 03/18/24 13:55:
-Stage 1 sacrum pressure injury, POA
-Stage 1 bilateral heels pressure injury, POA
Original Note:
Today's Communication/Plan
-
dialysis--- para---egd
Assessment / Plan
Assessment / Plan
58 yo man with hx ESRD on HD MWF from [facility](previously T//Sat at [facility]), non compliance with HDs, residual urine output on bumex, CAD, atrial fibrillation on coumadin, IDDM, HTN on Procardia, losartan, clonidine,hydralazine,
Aldactone, HLD on statin, Vascepa, hyperphosphatemia on Renvela, recent new diagnosis of cirrhosis and ascites presented with abdominal discomfort and due for paracentesis, with n/v, and hematemesis
Impression:
Presentation with coffee-ground emesis reported at nursing facility.
� Recent hospitalization with life-threatening gastrointestinal hemorrhage and severe acute blood loss anemia secondary to anticoagulation with warfarin (02/07 - 02/24)
Accelerated hypertension secondary to volume overload.
Recurrent ascites
Diabetes with hypoglycemia
Plan:
Presentation with coffee-ground emesis reported at nursing facility.
Hb trending down
Coagulopathy with INR 3.01 on admission reversed with vitamin K and Kcentra.
Suspect upper GI source recurrent hemorrhage
EGD 02/10: Severe esophagitis/grade 1 varices at the lower third of the esophagus/single localized small erosion with active bleeding at the cardia? Ebenezer lesions with no gastric varices treated with hemostatic clip.
GI consultation, NPO, Tentatively for EGD today after para
IV PPI BID
Continue Octreotide drip
IV ceftriaxone for SBP prophylaxis. increased by GI to 2g on 03/17
#Cirrhosis unknown primary cause? SEN versus alcohol versus viral hepatitis.
MELD not reliable in patient with end-stage renal disease on anticoagulation
Suspect advanced hepatic dysfunction given persistent hypoglycemia
ammonia level <9
#Recurrent ascites with prior history of SBP
Most recent paracentesis 4600 cc with no evidence of SBP. SAAG>1.3 consistent with portal hypertension.
Continue prophylactic ceftriaxone for now; dose increased by GI due to ongoing fever, BC pending
Interventional radiology for paracentesis with albumin after dialysis
#End-stage renal disease with hyperkalemia
Hemodialysis Thursday. Reports missing dialysis this Thursday.
Massive volume overload with ascites and accelerated hypertension.
HD today per nephro
Multidrug resistant hypertension continue preadmission antihypertensive regimen including hydralazine, clonidine, nifedipine, losartan. Not clear if patient would benefit from diuretics including spironolactone. Likely the numbers will improve
after dialysis and para.
Discontinued losartan for now due to high K
episode of nsvt during dialysis
continue to monitor
mag order for tomorrow
consider cardio if reoccur
#Type 2 diabetes with hypoglycemia
Suspect advanced hepatic dysfunction contributing.
Hold off on standing dose of insulin most likely will not require in the future.
Continue basal protocol with serial Accu-Cheks.
#Paroxysmal atrial fibrillation
Currently in sinus rhythm.
Not on any AV tru blocking medications or arrhythmics prior to presentation.
Monitor rate and rhythm.
Anticoagulation: Patient is a poor candidate for systemic anticoagulation given advanced hepatic disease, and risk for hemorrhagic complications such as recent with life-threatening hemorrhage and severe anemia required large volume transfusions.
Risk of hemorrhagic complications weight overweight in comparison of thromboembolic.
#CHF preserved EF.
CAD with history of stents
PAD.
Volume control with HD
Continue current antihypertensive regimen as above.
Continue statin.
#Chronic pain due to spinal stenosis
Chronic ambulatory dysfunction
Continue oxycodone with caution for oversedation.
Physical therapy assessment once stable.
Other conditions:
Cirrhosis? EtOH/SEN/? Viral hepatitis.
-Recurrent ascites requiring large-volume paracentesis.
History of SBP.
End-stage renal disease on hemodialysis Thursday
Accelerated hypertension likely related to volume overload.
Recurrent transudative pleural effusions.
Type 2 diabetes.
Paroxysmal atrial fibrillation.
Anticoagulation with warfarin.
Chronic anemia
Dyslipidemia
CAD with history of stents in 2015
Chronic heart failure preserved EF
PAD with history of femoral-popliteal bypass chronic ambulatory dysfunction
Spinal stenosis with chronic pain syndrome requiring opiates
Depression
Full code
DVT prophylaxis/mechanical
Anticipated Discharge: > 48 hours
Subjective/Interval History
-
Date of Service: March 18, 2024
Objective Data
-
Labs:
Laboratory Results
03/17/24 03/18/24
22:28 07:51
WBC Pending
Hgb 9.0 L Pending
Hct 27.7 L Pending
Plt Count Pending
PT Pending
INR Pending
Sodium 132 L Pending
Potassium 6.0 H Pending
Chloride 98 Pending
Carbon Dioxide 26 Pending
BUN 43 H Pending
Creatinine 7.4 H* Pending
Glucose 179 H Pending
Calcium 7.8 L Pending
Total Bilirubin Pending
AST Pending
ALT Pending
Alkaline Phosphatase Pending
Vital Signs:
Vital Signs
Temp Pulse Resp BP Pulse Ox
97.9 F 85 21 199/91 96
03/18/24 03:39 03/18/24 06:34 03/18/24 06:29 03/18/24 06:34 03/18/24 06:29
I&O
03/17/24 03/18/24 03/19/24
06:59 06:59 06:59
Intake Total 1040 / 1040 1490 / 1490
Output Total 0 / 0 0 / 0
Balance 1040 / 1040 1490 / 1490
Review of Systems
-
History Source: Patient
Constitutional: Reports Other (states he has pain all over)
Physical Exam
-
General: Well Developed, Appears Chronically Ill and Other (saw him during dialysis today)
HEENT: Normocephalic, Atraumatic and Moist Mucous Membranes
Respiratory: Clear to Auscultation
Cardiac: Regular Rhythm and S1/S2; Negative Murmur, Rub or Gallop
GI: Normal Bowel Sounds, Tender and Distended; Negative Organomegaly
Rectal: Deferred by Provider
Musculoskeletal: No Clubbing, No Cyanosis and No Edema
Skin: Negative Rash
Neuro: Nonfocal/Grossly Intact
Psych: Calm
Data Reviewed
-
Labs: Labs Reviewed by me, Discussed with Physician and Discussed with Patient
[2024-03-18 08:06] LABS: % Basophils 0.4 % (0-2); % Eosinophils 4.5 % (0-6); % Immature Granulocytes 0.4 % (0-0.5); % Lymphocytes 3.3 % (20.5-51.1); % Monocytes 4.5 % (1.7-9.3); % Neutrophils 86.9 % (42.2-75.2); Absolute Basophils 0.1 10^3/uL (0-0.2); Absolute Eosinophils 0.6 10^3/uL (0-0.7); Absolute Immature Granulocytes 0.1 10^3/uL (0-0.05); Absolute Lymphocytes 0.5 10^3/uL (1.2-3.4); Absolute Monocytes 0.6 10^3/uL (0.1-0.6); Absolute Neutrophils 12.4 10^3/uL (1.4-6.5); Hematocrit 28.8 % (39.0-52.0); Hemoglobin 9.2 g/dL (13.0-18.0); Mean Corp Hgb Conc. 31.9 g/dL (33.0-37.0); Mean Corpuscular Hgb 29.7 pg (27.0-31.0); Mean Corpuscular Volume 92.9 fL (80.0-94.0); Mean Platelet Volume 9.5 fL (7.4-10.4); Nucleated Red Blood Cells % 0 % (-); Platelet Count 237 10^3/uL (130-400); Red Cell Dist. Width 14.9 % (11.5-14.5); White Blood Cell Count 14.2 10^3/uL (4.8-10.8)
[2024-03-18 08:14] LABS: INR 1.29; PT 16.4 Sec (11.4-14.6)
[2024-03-18 08:41] LABS: ALT (SGPT) < 10 U/L (0-50); AST (SGOT) 15 U/L (17-59); Albumin 2.5 g/dl (3.5-5.0); Alkaline Phosphatase 99 U/L (38-126); Blood Urea Nitrogen 47 mg/dl (9-20); Calcium 7.9 mg/dl (8.4-10.2); Carbon Dioxide 23 mmol/L (22-30); Chloride 99 mmol/L (98-107); Direct Bilirubin 0.4 mg/dl (0.0-0.4); Estimated Creatinine Clearance 11 ml/min; Glucose 85 mg/dl (70-99); Potassium 6.1 mmol/L (3.5-5.1); Sodium 133 mmol/L (135-145); Total Bilirubin 0.4 mg/dl (0.2-1.3); eGFR 7.73
[2024-03-18] MEDS: RENVELA PO ×2 (09:12→12:39)
[2024-03-18] MEDS: RETACRIT 2000 UNITS IV (09:18)
[2024-03-18] MEDS: SANDOSTATIN 500.6 MCG IV ×2 (09:44→22:32)
[2024-03-18] MEDS: NSS (PRESERVATIVE FREE) 10 ML IV ×2 (09:46→22:47)
[2024-03-18] MEDS: PROTONIX IV 40 MG IV ×2 (09:46→22:47)
--- NOTE | 2024-03-18 10:06 | PTCARENOTE ---
Critical labs notified to Dr. Hwang. Patient is receiving dialysis at this time. Genelaized pain treated with Dilaudid IV. NPO for paracentesis and EGD this afternoon.
--- NOTE | 2024-03-18 10:45 | PTCARENOTE ---
Patient had 2 episodes of vtach 6-8 beat run during dialysis treatment. Notified Dr. Lazaro Hwang. Patient is asymptomatic at this time.
--- NOTE | 2024-03-18 11:13 | PN.CDI ---
CDI
- -
CDI:
Physician Documentation Request
Admit Date: 03/16/24 03:47
Dear Doctor,
Please review the following and provide your response in the progress notes.
Clinical Indicators:
- RN skin assessments indicate:
- Stage 1 sacrum pressure injury, POA
- Stage 1 bilateral heels pressure injury, POA
Physician documentation of the type and location of wounds is required for compliant documentation. Based on the above clinical findings and your assessment, please provide the following in your progress note:
1. Location of the ulcer/wound, including laterality.
2. Type (etiology) of ulcer/wound:
- Diabetic ulcer
- Arterial (ischemic) ulcer
- Traumatic wound
- Venous stasis ulcer
- Pressure (decubitus) ulcer
- Non-healing surgical wound
- Other
- Unable to determine
Use of terms such as suspected, likely, concern for, or probable (associated with a specific diagnosis that is being evaluated, monitored, or treated as if it exists) are acceptable and can be coded in the inpatient setting, when documented at the
time of discharge.
Thank you,
Keegan Nicole RN
CDI Specialist
Please use your independent medical judgment in providing your response.
*Source: National Pressure Ulcer Advisory Panel (NPUAP)
--- NOTE | 2024-03-18 11:40 | W.PN.NEPH.HD ---
Assessment
-
pt seen during HD
vitals stable,. BP high in am
AVF functions well
plan paracentesis today
EGD timing per GI, likely not today
follow h/h, prn transfusion
over all prognosis is poor
Progress Note - Hemodialysis
-
Date of Service: March 18, 2024
Duration: 30 minutes and 3 hours
Potassium Bath: 2
Calcium Bath: 2.5
Opti-Dialyzer: 160
Ultrafiltration: Other (1.5-2)
Blood Flow: 400
Dialysate Flow: 600
Heparin: no
EPO: 2000
[2024-03-18 12:15] LABS: Glucose - Point of Care 78 mg/dl (70-99)
[2024-03-18 13:03] LABS: AFP Male/Tumor Marker < 0.800 ng/ml
--- NOTE | 2024-03-18 13:10 | W.PN.GI.CBS2 ---
Today's Communication / Plan
-
dialysis, para today, EGD tmwr
Assessment / Plan
-
Pt is a 58yo with hx decompensated cirrhosis with ascites requiring paracentesis, SBP, Grade I EV, (Etiology ? MASH/? ETOH per chart prior ETOH 5 + years ago, no formal serology work up at [facility] except hep B/C neg with hep B immunity and prior
eval with [facility] and [facility] GI. Prior SAAG with 1.4 with low protein c/w cirrhosis). Also history of paroxysmal atrial fibrillation on Coumadin, CAD, end-stage renal disease on hemodialysis, heart failure with preserved ejection fraction,
history of pleural effusions with pericardiocentesis, hypertension, spinal stenosis, GERD, ?Dunlap's Esophagus, prior C-diff, DM, CHF, migraines, gastritis, constipation with multiple admission over last year for complication of cirrhosis. He now
present from [facility] with coffee ground emesis after recent covid isolation at [facility]. Pt last admission was in January with GI bleeding and severe iron deficiency anemia with hbg down to 3.1 requiring transfusion with EGD noted mild severe esophagitis,
grade I EV in lower third of esophagus, small erosion with active bleeding in cardia- scope trauma vs ty lesion. no gastric varix seen and clip placed. Scope was complicated by aspiration.
Patient here now with coffee ground emesis with stable Hb, tense ascites and abd discomfort. Given vit K and Kcentra on admission.
Questionable fever yesterday (axillary + fever, oral no fever - on d/w ID felt oral more likely to be accurate but do not recommend checking from different routes).
Unclear if he is bleeding or vomiting simply from the tense ascites (I favor the latter with stable hb) - brown stool on my exam today. I do NOT think this is variceal - had grade I varices EGD last month and brown stool with stable Hb (small drop
today). Also questionably infected.
Recommendations:
- Continue octreotide, PPI IV BID
- Trend Hb
- Clear liquid diet today NPO after midnight for possible EGD pending clinical status - I d/w anesthesia due to hypovolemia with dialysis and para today concern about taking away sympathetic arteriole tone due to hypovolemia will lead to issues and
recommend postponing until tomorrow unless emergent. May need intubation for EGD will d/w anesthesia tomorrow as history of aspiration with scope in past.
- Dialysis followed by para today
- With the concern for SBP I have increased his ceftriaxone to 2g daily with questionable fevers
- Blood cultures from 03/17 pending
- No need for albumin as he is dialysis patient even if he does have SBP
- Hold diuretics until cell count is resulted and EGD done tomorrow
- Patient needs daily MELD labs no labs ordered for tomorrow I have taken the liberty to order as well
- Coumadin on hold
- Follow with [facility] outpatient
- Reviewed nephro notes pt with non adherence to HD and multiple admissions for liver dz shelter poor prognosis
D/w nephro, IR, hospitalist, anesthesia.
Subjective
Subjective
Date of Service: March 18, 2024
Small amount of emesis this am
Objective
Data Reviewed
Laboratory Data:
Laboratory Results
03/18/24 07:51
03/18/24 07:51
Laboratory Results
PT 16.4 Sec (11.4-14.6) H 03/18/24 07:51
INR 1.29 03/18/24 07:51
APTT 85.0 Sec (23.4-35.0) H 03/16/24 05:48
Magnesium 2.5 mg/dl (1.6-2.3) H 03/16/24 08:12
Total Bilirubin 0.4 mg/dl (0.2-1.3) 03/18/24 07:51
AST 15 U/L (17-59) L 03/18/24 07:51
ALT < 10 U/L (0-50) 03/18/24 07:51
Alkaline Phosphatase 99 U/L (38-126) 03/18/24 07:51
Vital Signs and I&O:
Vital Signs
Temp Pulse Resp BP Pulse Ox
98.0 F 109 21 165/84 94
03/18/24 11:22 03/18/24 10:45 03/18/24 10:45 03/18/24 10:45 03/18/24 10:30
I&O
03/17/24 03/18/24 03/19/24
06:59 06:59 06:59
Intake Total 1040 / 1040 1490 / 1490
Output Total 0 / 0 0 / 0
Balance 1040 / 1040 1490 / 1490
Physical Exam
Physical Exam
HEENT: Other (temporal wasting)
Cardiology: Normal Sinus Rhythm
Pulmonary: Clear
GI: Distended
[2024-03-18 14:12] LABS: Body Fluid Albumin 1.1 g/dl; Body Fluid Protein 2.7 g/dl
--- NOTE | 2024-03-18 14:13 | PTCARENOTE ---
Patient back in room after paracentesis, bandaid intact on right lower abdomen. No bleeding. Patient having a clear liquid lunch at this time.
[2024-03-18 14:18] LABS: Body Fluid Mononuclear 88.8 %; Body Fluid Polymorphonuclear 11.2 %; Body Fluid WBC 133 /CUMM
[2024-03-18 14:30] LABS: Body Fluid Second Tech HB
--- NOTE | 2024-03-18 15:34 | W.PN.UPDATE ---
Update Note
Progress Note Update
No SBP on fluid analysis (however did get some doses of antibiotics).
Will decrease ceftriaxone to 1 g daily and plan EGD tmwr.
--- NOTE | 2024-03-18 15:52 | CM ---
Patient from [facility] with Hx ESRD on HD. Paracentesis today. Plan EGD tomorrow. Receiving IV Abx, IV Octreotide.
Message to resident Titi Wright requesting PT/OT Evals.
[facility]: The for report [phone], fax [phone].
Plan confirm return to [facility] with patient.
Plan return to [facility] when medically ready.
[2024-03-18] MEDS: NOVOLOG FLEXPEN-MODERATE RESISTANCE 1 UNITS SC (17:15)
[2024-03-18 17:16] LABS: Glucose - Point of Care 173 mg/dl (70-99)
[2024-03-18] MEDS: RENVELA 1600 MG PO (17:17)
[2024-03-18] MEDS: STERILE WATER FOR INJECTION 10 ML IV (17:20)
[2024-03-18] MEDS: ROCEPHIN 1000 MG IV (17:20)
[2024-03-18 17:56] LABS: Urine Albumin 2+ (Neg - Trace); Urine Bilirubin 1+ (Negative); Urine Character Slightly Cloudy (Clear); Urine Color Yellow; Urine Glucose Negative (Negative); Urine Ketone Negative (Negative); Urine Leukocyte 1+ (Negative); Urine Nitrite Negative (Negative); Urine Occult Blood Negative (Negative); Urine Urobilinogen Negative (Neg - 1+)
[2024-03-18 18:23] LABS: Urine Red Blood Cell 0-2 /HPF (0-2)
[2024-03-18 18:24] LABS: Urine Squamous Cell 16-20 /LPF (Few)
[2024-03-18 21:59] LABS: Glucose - Point of Care 218 mg/dl (70-99)
[2024-03-18] MEDS: LIPITOR 80 MG PO (22:47)
[2024-03-19] VITALS (15 sets, daily range): BP systolic 124–182; BP diastolic 60–78; PULSE 89; O2SAT 97–99; BMI 22.1
[2024-03-19] MEDS: DILAUDID 0.5 MG IV ×6 (00:32→22:30)
--- NOTE | 2024-03-19 01:30 | PTCARENOTE ---
received pt from day shift. Pt NSR on monitor, VSS. Pt c/o generalized pain as well as 9/10 sharp pain in his lower back. PRN Dilaudid given (see JUN). Pt has been NPO since midnight for EGD today. Pt now resting in bed with call nieto in reach.
[2024-03-19 04:32] LABS: % Basophils 0.4 % (0-2); % Eosinophils 6.9 % (0-6); % Immature Granulocytes 0.5 % (0-0.5); % Lymphocytes 5.4 % (20.5-51.1); % Neutrophils 81.8 % (42.2-75.2); Absolute Basophils 0.1 10^3/uL (0-0.2); Absolute Eosinophils 0.9 10^3/uL (0-0.7); Absolute Immature Granulocytes 0.1 10^3/uL (0-0.05); Absolute Lymphocytes 0.7 10^3/uL (1.2-3.4); Absolute Monocytes 0.6 10^3/uL (0.1-0.6); Absolute Neutrophils 10.2 10^3/uL (1.4-6.5); Hemoglobin 9.2 g/dL (13.0-18.0); Mean Corp Hgb Conc. 32.9 g/dL (33.0-37.0); Mean Corpuscular Hgb 30.7 pg (27.0-31.0); Mean Corpuscular Volume 93.3 fL (80.0-94.0); Mean Platelet Volume 9.8 fL (7.4-10.4); Nucleated Red Blood Cells % 0 % (-); Platelet Count 190 10^3/uL (130-400); Red Cell Dist. Width 14.7 % (11.5-14.5); White Blood Cell Count 12.5 10^3/uL (4.8-10.8)
[2024-03-19 04:54] LABS: PT 16.5 Sec (11.4-14.6)
[2024-03-19 05:09] LABS: ALT (SGPT) < 10 U/L (0-50); AST (SGOT) 14 U/L (17-59); Albumin 2.1 g/dl (3.5-5.0); Alkaline Phosphatase 90 U/L (38-126); Blood Urea Nitrogen 29 mg/dl (9-20); Calcium 7.5 mg/dl (8.4-10.2); Carbon Dioxide 27 mmol/L (22-30); Chloride 96 mmol/L (98-107); Direct Bilirubin 0.4 mg/dl (0.0-0.4); Estimated Creatinine Clearance 16 ml/min; Glucose 132 mg/dl (70-99); Magnesium 1.9 mg/dl (1.6-2.3); Potassium 4.8 mmol/L (3.5-5.1); Sodium 131 mmol/L (135-145); Total Bilirubin 0.4 mg/dl (0.2-1.3); Total Protein 5.1 g/dl (6.3-8.2); eGFR 12.57
[2024-03-19 08:52] LABS: Glucose - Point of Care 115 mg/dl (70-99)
[2024-03-19] MEDS: NOVOLOG FLEXPEN-MODERATE RESISTANCE SC ×2 (08:55→11:46)
[2024-03-19] MEDS: APRESOLINE 100 MG PO ×3 (08:58→21:46)
[2024-03-19] MEDS: PROCARDIA XL (EXTENDED RELEASE) 30 MG PO (08:59)
[2024-03-19] MEDS: PROTONIX IV 40 MG IV (08:59)
[2024-03-19] MEDS: CATAPRES 0.2 MG PO ×3 (08:59→21:45)
[2024-03-19] MEDS: NSS (PRESERVATIVE FREE) 10 ML IV (09:00)
[2024-03-19] MEDS: RENVELA PO ×2 (09:05→11:47)
[2024-03-19] MEDS: SANDOSTATIN 500.6 MCG IV (09:07)
--- NOTE | 2024-03-19 09:26 | W.PN.NEPH.PH ---
Today's Communication / Plan
-
Dialysis Thursday
Assessment/Plan
-
Impression:
coffee-ground emesis -GIB
Recent hospitalization with life-threatening gastrointestinal hemorrhage
Accelerated hypertension secondary to volume overload.
Recurrent ascites
hypoglycemia
Coumadin Coagulopathy
Hyperkalemia
Metabolic Acidosis
ESRD on hemodialysis at [facility], previously TTS [facility]
Anemia of ESRD
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
Paroxysmal Atrial Fibrillation
Chronic HFpEF
History of bilateral pleural effusions status post thoracentesis
History of pericardial effusion status post pericardiocentesis
Coronary artery disease
Essential hypertension
DM2 with multiple microvascular complications
Hyperlipidemia
Spinal stenosis
Anxiety/depression
L radial AVF
Plan:
A/w hematemesis from NH
s/p HD yesterday, wt no sig change
s/p paracentesis
BP better with resuming home meds, but still high
abx per primary , febrile
stable h/h, on PPI and octreotide gtt, INR down , EGD Per GI
transfuse prn
He has multiple admits recently mainly for decompensated liver disease, non adherence to HD suggest over all retirement prognosis is poor
Next dialysis will be on Thursday
-
-
Date of Service: March 19, 2024
CC / HPI / ROS
-
Chief Complaint:
ESRD
History of Present Illness:
hb 9.2 range, febrile this am
BP high but better post meds
tolerated HD yesterday
Review of Systems:
no cp or sob
but c/o abd distension and pain
dark liquid when vomits
Labs
-
Labs:
WBC 12.5 10^3/uL (4.8-10.8) H 03/19/24 04:10
RBC 3.00 10^6/uL (4.70-6.10) L 03/19/24 04:10
Hgb 9.2 g/dL (13.0-18.0) L 03/19/24 04:10
Hct 28.0 % (39.0-52.0) L 03/19/24 04:10
Plt Count 190 10^3/uL (130-400) 03/19/24 04:10
Sodium 131 mmol/L (135-145) L 03/19/24 04:10
Potassium 4.8 mmol/L (3.5-5.1) 03/19/24 04:10
Chloride 96 mmol/L (98-107) L 03/19/24 04:10
Carbon Dioxide 27 mmol/L (22-30) 03/19/24 04:10
BUN 29 mg/dl (9-20) H 03/19/24 04:10
Creatinine 5.0 mg/dL (0.7-1.3) H* 03/19/24 04:10
eGFR 12.57 03/19/24 04:10
Glucose 132 mg/dl (70-99) H 03/19/24 04:10
Calcium 7.5 mg/dl (8.4-10.2) L 03/19/24 04:10
Albumin 2.1 g/dl (3.5-5.0) L 03/19/24 04:10
Physical Exam
-
Vital Signs:
Vital Signs
Temp Pulse Resp BP Pulse Ox
97.9 F 67 18 177/75 99
03/19/24 04:00 03/19/24 08:58 03/19/24 05:06 03/19/24 08:58 03/18/24 19:45
Cardiovascular:: Regular rate and rhythm
Respiratory:: Bilateral: CTA (anteriorly)
Lung Excursion:: Normal
Abdomen:: Distended, Soft and Tender
Extremity Edema:: +1: Bilateral:
Alfred Catheter: No
--- NOTE | 2024-03-19 09:40 | PTCARENOTE ---
PT given meds , pain of 9 in lower l Back, Dilaudid given as ordered. GI lab given report
--- NOTE | 2024-03-19 09:43 | W.PN.HOSP.TC ---
Today's Communication/Plan
-
EGD
Hold warfarin and trend CBC
Continue IV ceftriaxone and follow cultures/CBC/Temp
Consider resuming diuretics
Increase nifedipine dose
Assessment / Plan
Assessment / Plan
#Hematemesis
#H/O grade 1 esophageal varices
-Presented with hematemesis, concern for variceal bleed due to his history, INR 3.01 on warfarin
-Was started on IV PPI drip, octreotide drip; status post vitamin K and Kcentra; warfarin held
-Hemoglobin has stabilized, possibility that this was not variceal in nature
-Has remained hemodynamically stable, Hgb between 9 and 9.6 x 4 lab draws
-GI following
Plan
-Planning for EGD today, on CLD pending procedure
-Continue with PPI and octreotide for now
-Continue to hold warfarin for now
-Plan to repeat CBC tomorrow
#Recurrent ascites
#H/O SBP
-Previous paracentesis with a SAG >1.1 and other parameters consistent with portal hypertension
-Presented here with recurrent ascites and fevers per axillary temperature initially
-Status post paracentesis on 03/18, no signs of SBP; ceftriaxone decreased from 2 g to 1 g daily
-Blood cultures x 2 were obtained earlier, have remained negative but pending final read
-Holding diuretics for now
Plan
-Continue with IV ceftriaxone and trend CBC and temperature curve for now
-Will consider infectious disease consult if fevers recurrent leukocytosis persistent
-Will speak with GI about consideration for BP prophylaxis at discharge
-Eventually plan for Lasix/spironolactone 40:100 ratio
#HTN
-Home medications include clonidine, hydralazine, losartan, nifedipine, spironolactone; HD for volume
-Losartan was held here due to hyperkalemia that was fairly persistent; Aldactone held due to possible SBP
-Blood pressure has been persistently elevated here, slightly improved since paracentesis
Plan
-Increase nifedipine to 60 mg daily
-Plan to resume spironolactone, possibly today
-Continue clonidine, hydralazine at current doses
-Continue with IV hydralazine as needed
#Cirrhosis
-Unclear etiology though suspected from SEN versus alcohol versus viral hepatitis
-MELD score unreliable due to hemodialysis requirements, previous treatment with warfarin but likely high
-Complicated by grade 1 varices and ascites as above; unclear if HRS led to his ESRD
-Will continue to monitor CMP and INR
#End-stage renal disease
-Unclear etiology, may be related to cirrhosis with hepatorenal syndrome in the past (?) versus diabetes
-Currently on HD every // though compliance has been an issue; Home meds include sevelamer
-Will continue to monitor BMP daily, dialysis as previously scheduled
#Type 2 diabetes with hypoglycemia
-No recent A1c; Home medications include insulin lispro
-Was hypoglycemic initially, likely hepatic dysfunction and issues with liberating glucose
-Standing dose insulin was held, started on sliding scale with Accu-Cheks
-Glucose has been improved and within goal on sliding scale and only
#Paroxysmal atrial fibrillation
-Home medications include warfarin for AC, INR goal 2�3; not on rate or rhythm controlling agents
-Warfarin held on admission due to concerns for variceal bleed; status post reversal as well as above
-No evidence of rapid ventricular rates here
-Continue on telemetry
#HFpEF
-Unclear etiology, likely associated with volume overload in the setting of dialysis
-Not currently on SGLT2 inhibitor, is on an MRA for his cirrhosis with ascites
-Seems euvolemic today following dialysis and paracentesis yesterday
#CAD status post PCI (2015)
#PAD s/p femoropopliteal bypass
-Home medications include high intensity statin; not currently on any antiplatelet agents though is on warfarin as above
-No signs or symptoms of coronary ischemia nor limb ischemia during this hospitalization
#Chronic pain due to spinal stenosis
-Chronic ambulatory dysfunction
-Continue oxycodone with caution for oversedation.
-Physical therapy assessment once stable.
DVT prophylaxis: SCDs
Diet: Renal diet
CODE STATUS: Full code
Anticipated Discharge: > 48 hours
Subjective/Interval History
-
Date of Service: March 19, 2024
Seen and examined at the bedside. No acute events reported overnight. AFVSS this morning.
Underwent paracentesis yesterday that did not show any signs of SBP. States his abdomen is improved today, less tense on exam. Denies fevers overnight
Denies acute complaints including chest pain, dyspnea, nausea/vomiting/diarrhea, paresthesias or weakness, further episodes of bleeding.
Objective Data
-
Labs:
Laboratory Results
03/19/24
04:10
WBC 12.5 H
Hgb 9.2 L
Hct 28.0 L
Plt Count 190
PT 16.5 H
INR 1.30
Sodium 131 L
Potassium 4.8
Chloride 96 L
Carbon Dioxide 27
BUN 29 H
Creatinine 5.0 H*
Glucose 132 H
Calcium 7.5 L
Total Bilirubin 0.4
AST 14 L
ALT < 10
Alkaline Phosphatase 90
Vital Signs:
Vital Signs
Temp Pulse Resp BP Pulse Ox
97.9 F 67 18 177/75 99
03/19/24 04:00 03/19/24 08:58 03/19/24 05:06 03/19/24 08:58 03/18/24 19:45
I&O
03/18/24 03/19/24 03/20/24
06:59 06:59 06:59
Intake Total 1490 / 1490 640 / 640
Output Total 0 / 0 50 / 50
Balance 1490 / 1490 590 / 590
Review of Systems
-
History Source: Patient
All other systems: Reviewed and negative
Physical Exam
-
General: No Apparent Distress, Comfortable and Appears Chronically Ill
HEENT: Normocephalic, Atraumatic, Moist Mucous Membranes and Anicteric
Respiratory: Clear to Auscultation and Non Labored Respirations
Cardiac: Regular Rhythm and S1/S2; Negative Murmur, Rub or Gallop
GI: Soft, Nontender, Normal Bowel Sounds and Distended (Mild, improved from yesterday)
Musculoskeletal: No Clubbing, No Cyanosis and No Edema
Skin: Warm and Dry; Negative Rash or Jaundice
Neuro: AO x 3 and Nonfocal/Grossly Intact
Psych: Calm
Data Reviewed
-
Labs: Labs Reviewed by me and Discussed with Patient
[2024-03-19 11:39] LABS: Glucose - Point of Care 98 mg/dl (70-99)
--- NOTE | 2024-03-19 12:24 | PTCARENOTE ---
P to GI lab, pt wa very upset because he was hungry , pt t ried to cancel EGD wanted it [place] tomorrow. I told he could not cancel he needed the test I also assured hi he would not because he had not eaten since dinner last night
[2024-03-19] MEDS: RENVELA 1600 MG PO ×2 (13:17→17:09)
--- NOTE | 2024-03-19 13:21 | W.PN.UPDATE ---
Update Note
Progress Note Update
D/w nephro no role for diuretics patient does not make urine
--- NOTE | 2024-03-19 13:25 | PTCARENOTE ---
Pt back i room ordering lunch and given pain med
--- NOTE | 2024-03-19 13:47 | W.PN.UPDATE ---
Update Note
Progress Note Update
Spoke with gastroenterology. In agreement that warfarin is probably a poor choice of anticoagulant due to his issues with compliance in the past. Status post EGD, no signs of active bleeding. Going to start heparin drip without boluses
prophylactically for now. Will have case management look into pricing for DOAC. If not affordable we will plan to bridge back to warfarin with INR goal 2-3
[2024-03-19] MEDS: APRESOLINE 10 MG IV (14:01)
[2024-03-19 14:13] LABS: Hematocrit 29.6 % (39.0-52.0); Hemoglobin 9.9 g/dL (13.0-18.0); Mean Corp Hgb Conc. 33.4 g/dL (33.0-37.0); Mean Corpuscular Hgb 31.1 pg (27.0-31.0); Mean Corpuscular Volume 93.1 fL (80.0-94.0); Mean Platelet Volume 9.7 fL (7.4-10.4); Platelet Count 197 10^3/uL (130-400); Red Blood Cell Count 3.18 10^6/uL (4.70-6.10); Red Cell Dist. Width 14.8 % (11.5-14.5); White Blood Cell Count 11.1 10^3/uL (4.8-10.8)
[2024-03-19] MEDS: HEPARIN 25000 UNITS/250 ML IV (15:46)
[2024-03-19 16:39] LABS: Glucose - Point of Care 222 mg/dl (70-99)
[2024-03-19] MEDS: NOVOLOG FLEXPEN-MODERATE RESISTANCE 3 UNITS SC (17:09)
[2024-03-19] MEDS: STERILE WATER FOR INJECTION 10 ML IV (17:11)
[2024-03-19] MEDS: ROCEPHIN 1000 MG IV (17:11)
[2024-03-19] MEDS: LIPITOR 80 MG PO ×2 (21:45→21:46)
[2024-03-19 21:59] LABS: Glucose - Point of Care 204 mg/dl (70-99)
[2024-03-19 22:23] LABS: APTT 74.2 Sec (23.4-35.0)
--- NOTE | 2024-03-19 23:51 | PTCARENOTE ---
Received pt from day shift. Pt aaox3. NSR on monitor w/ BBB. VSS. Hygiene completed and AILYN medications given. Heparin gtt infusing at 11 mL/hr. Pt resting in bed with call nieto in reach.
[2024-03-20] VITALS (18 sets, daily range): BP systolic 105–191; BP diastolic 61–90; BMI 22.7
[2024-03-20] MEDS: DILAUDID 0.5 MG IV ×5 (03:17→21:23)
[2024-03-20 04:44] LABS: % Basophils 0.4 % (0-2); % Eosinophils 8.9 % (0-6); % Immature Granulocytes 0.3 % (0-0.5); % Lymphocytes 7.2 % (20.5-51.1); % Monocytes 5.4 % (1.7-9.3); % Neutrophils 77.8 % (42.2-75.2); Absolute Eosinophils 0.9 10^3/uL (0-0.7); Absolute Lymphocytes 0.7 10^3/uL (1.2-3.4); Absolute Monocytes 0.5 10^3/uL (0.1-0.6); Absolute Neutrophils 7.8 10^3/uL (1.4-6.5); Hematocrit 28.2 % (39.0-52.0); Hemoglobin 9.1 g/dL (13.0-18.0); Mean Corp Hgb Conc. 32.3 g/dL (33.0-37.0); Mean Corpuscular Hgb 29.9 pg (27.0-31.0); Mean Corpuscular Volume 92.8 fL (80.0-94.0); Mean Platelet Volume 9.8 fL (7.4-10.4); Nucleated Red Blood Cells % 0 % (-); Platelet Count 218 10^3/uL (130-400); Red Blood Cell Count 3.04 10^6/uL (4.70-6.10); Red Cell Dist. Width 14.6 % (11.5-14.5)
[2024-03-20 04:52] LABS: INR 1.26; PT 16.1 Sec (11.4-14.6)
[2024-03-20 06:19] LABS: ALT (SGPT) < 10 U/L (0-50); AST (SGOT) 15 U/L (17-59); Albumin 2.2 g/dl (3.5-5.0); Alkaline Phosphatase 92 U/L (38-126); Blood Urea Nitrogen 37 mg/dl (9-20); Calcium 7.4 mg/dl (8.4-10.2); Carbon Dioxide 24 mmol/L (22-30); Chloride 96 mmol/L (98-107); Estimated Creatinine Clearance 13 ml/min; Glucose 126 mg/dl (70-99); Potassium 5.6 mmol/L (3.5-5.1); Sodium 130 mmol/L (135-145); Total Bilirubin 0.3 mg/dl (0.2-1.3); Total Protein 5.4 g/dl (6.3-8.2)
[2024-03-20 07:00] LABS: APTT 68.6 Sec (23.4-35.0)
[2024-03-20 08:12] LABS: Glucose - Point of Care 123 mg/dl (70-99)
[2024-03-20] MEDS: PROTONIX 40 MG PO (08:43)
[2024-03-20] MEDS: RENVELA 1600 MG PO ×3 (08:43→16:50)
[2024-03-20] MEDS: NOVOLOG FLEXPEN-MODERATE RESISTANCE SC ×2 (08:43→17:13)
[2024-03-20] MEDS: PROCARDIA XL (EXTENDED RELEASE) 60 MG PO (08:43)
[2024-03-20] MEDS: CATAPRES 0.2 MG PO ×2 (08:44→16:51)
[2024-03-20] MEDS: APRESOLINE 100 MG PO ×2 (08:45→16:51)
--- NOTE | 2024-03-20 09:41 | W.PN.NEPH.PH ---
Today's Communication / Plan
-
Dialysis tomorrow
Okay to start low-dose carvedilol
Patient noncompliance is complicated hypertension management
Assessment/Plan
-
Impression:
coffee-ground emesis -GIB /portal gastropathy/
Recent hospitalization with life-threatening gastrointestinal hemorrhage
Accelerated hypertension secondary to volume overload.
Recurrent ascites
hypoglycemia
Coumadin Coagulopathy
Hyperkalemia
Metabolic Acidosis
ESRD on hemodialysis at [facility], previously TTS [facility]
Anemia of ESRD
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
Paroxysmal Atrial Fibrillation
Chronic HFpEF
History of bilateral pleural effusions status post thoracentesis
History of pericardial effusion status post pericardiocentesis
Coronary artery disease
Essential hypertension
DM2 with multiple microvascular complications
Hyperlipidemia
Spinal stenosis
Anxiety/depression
L radial AVF
Plan:
A/w hematemesis from NH
Endoscopy report reviewed
For dialysis tomorrow,orders provided
s/p paracentesis
BP better with resuming home meds, but still high, can add low dose coreg for portal gastropathy
abx per primary , febrile
stable h/h, 9.1
transfuse prn
He has multiple admits recently mainly for decompensated liver disease, non adherence to HD suggest over all [facility] prognosis is poor
Next dialysis will be on Thursday
-
-
Date of Service: March 20, 2024
CC / HPI / ROS
-
Chief Complaint:
ESRD
History of Present Illness:
hb 9.1 range
BP high but better post meds
ESRD Thursday
Review of Systems:
no cp or sob
but c/o abd distension and pain
No fevers
Labs
-
Labs:
WBC 10.0 10^3/uL (4.8-10.8) 03/20/24 03:38
RBC 3.04 10^6/uL (4.70-6.10) L 03/20/24 03:38
Hgb 9.1 g/dL (13.0-18.0) L 03/20/24 03:38
Hct 28.2 % (39.0-52.0) L 03/20/24 03:38
Plt Count 218 10^3/uL (130-400) 03/20/24 03:38
Sodium 130 mmol/L (135-145) L 03/20/24 03:38
Potassium 5.6 mmol/L (3.5-5.1) H 03/20/24 03:38
Chloride 96 mmol/L (98-107) L 03/20/24 03:38
Carbon Dioxide 24 mmol/L (22-30) 03/20/24 03:38
BUN 37 mg/dl (9-20) H 03/20/24 03:38
Creatinine 6.0 mg/dL (0.7-1.3) H* 03/20/24 03:38
eGFR 10.10 03/20/24 03:38
Glucose 126 mg/dl (70-99) H 03/20/24 03:38
Calcium 7.4 mg/dl (8.4-10.2) L 03/20/24 03:38
Albumin 2.2 g/dl (3.5-5.0) L 03/20/24 03:38
Physical Exam
-
Vital Signs:
Vital Signs
Temp Pulse Resp BP Pulse Ox
98.0 F 70 19 191/80 100
03/20/24 07:17 03/20/24 08:45 03/20/24 08:42 03/20/24 08:45 03/20/24 09:06
Cardiovascular:: Regular rate and rhythm
Respiratory:: Bilateral: CTA (anteriorly)
Lung Excursion:: Normal
Abdomen:: Distended, Soft and Tender
Extremity Edema:: +1: Bilateral:
Alfred Catheter: No
--- NOTE | 2024-03-20 11:25 | W.PN.HOSP.TC ---
Today's Communication/Plan
-
Heparin drip as bridge to DOAC versus warfarin
Continue with carvedilol
Uptitrate BP meds as needed
Bowel regimen
Speak with ID about discontinuing antibiotic
Assessment / Plan
Assessment / Plan
#Recurrent ascites
#H/O SBP
-Previous paracentesis with a SAG >1.1 and other parameters consistent with portal hypertension
-Presented here with recurrent ascites and fevers per axillary temperature initially
-Status post paracentesis on 03/18, no signs of SBP; ceftriaxone decreased from 2 g to 1 g daily
-Blood cultures x 2 were obtained earlier, have remained negative but pending final read
-Holding diuretics; no role for resumption as he makes minimal urine from ESRD
Plan
-Continue with IV ceftriaxone and trend CBC and temperature curve for now
-Will consider infectious disease consult if fevers recurrent leukocytosis persistent
-Monitor abdomen clinically for recurrent ascites
-Will speak with ID about discontinuing CTX
#HTN
-Home medications include clonidine, hydralazine, losartan, nifedipine, spironolactone; HD for volume
-Losartan was held here due to hyperkalemia that was fairly persistent; Aldactone held due to possible SBP
-Blood pressure has been persistently elevated here, slightly improved since paracentesis
-Was started on carvedilol, nifedipine dose increased to 60 mg yesterday with improvement
Plan
-Continue clonidine, hydralazine, nifedipine, carvedilol at current doses
-Continue with IV hydralazine as needed
-Consider uptitrating nifedipine to 90 mg
#Paroxysmal atrial fibrillation
-Home medications include warfarin for AC, INR goal 2�3; not on rate or rhythm controlling agents
-Warfarin held on admission due to concerns for variceal bleed; status post reversal as well as above
-No evidence of rapid ventricular rates here; started on carvedilol as above for esophageal varices
-Warfarin likely poor choice of AC due to his compliance issues
Plan
-Continue with heparin drip, plan for DOAC if patient can afford it
-If DOAC unaffordable, will begin bridging back to warfarin tonight
-Continue with carvedilol at current dose
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
-Was transition back to oral PPI twice daily after EGD for likely Dunlap's
-Will need to follow-up outpatient for repeat EGD +/- EUS
#Hematemesis
#H/O grade 1 esophageal varices
-Presented with hematemesis, concern for variceal bleed due to his history, INR 3.01 on warfarin
-Status post octreotide drip, IV PPI drip, warfarin reversal with Kcentra and vitamin K
-EGD performed on 03/19 without any evidence of ongoing variceal bleeding
-Has remained hemodynamically stable, Hgb between 9 and 9.6 over multiple lab draws
-Currently on oral PPI therapy; Started on carvedilol for variceal prophylaxis
-Hematemesis resolved
#Cirrhosis
-Unclear etiology though suspected from SEN versus alcohol versus viral hepatitis
-MELD score unreliable due to hemodialysis requirements, previous treatment with warfarin but likely high
-Complicated by grade 1 varices and ascites as above; unclear if HRS led to his ESRD
-Will continue to monitor CMP and INR
#End-stage renal disease
-Unclear etiology, may be related to cirrhosis with hepatorenal syndrome in the past (?) versus diabetes
-Currently on HD every M// though compliance has been an issue; Home meds include sevelamer
-Will continue to monitor BMP daily, dialysis as previously scheduled
#Type 2 diabetes with hypoglycemia
-No recent A1c; Home medications include insulin lispro
-Was hypoglycemic initially, likely hepatic dysfunction and issues with liberating glucose
-Standing dose insulin was held, started on sliding scale with Accu-Cheks
-Glucose has been improved and within goal on sliding scale and only
#HFpEF
-Unclear etiology, likely associated with volume overload in the setting of dialysis
-Not currently on SGLT2 inhibitor, is on an MRA for his cirrhosis with ascites
-Seems euvolemic today following dialysis and paracentesis yesterday
#CAD status post PCI (2016)
#PAD s/p femoropopliteal bypass
-Home medications include high intensity statin; not currently on any antiplatelet agents though is on warfarin as above
-No signs or symptoms of coronary ischemia nor limb ischemia during this hospitalization
#Chronic pain due to spinal stenosis
-Chronic ambulatory dysfunction
-Continue oxycodone with caution for oversedation.
-Physical therapy assessment once stable.
DVT prophylaxis: Heparin drip
Diet: Renal diet
CODE STATUS: Full code
Anticipated Discharge: 24 - 48 hours
Subjective/Interval History
-
Date of Service: March 20, 2024
Seen and examined at the bedside. No acute events reported overnight. AFVSS this morning.
Complaining of some back pain but recently received Dilaudid. Hemoglobin stable following EGD, despite heparin drip
He has no acute complaints today. Does request eyedrops for sensation of dry eyes
Objective Data
-
Labs:
Laboratory Results
03/20/24 03/20/24
03:38 13:00
WBC 10.0
Hgb 9.1 L
Hct 28.2 L
Plt Count 218
PT 16.1 H
INR 1.26
APTT 68.6 H Pending
Sodium 130 L
Potassium 5.6 H
Chloride 96 L
Carbon Dioxide 24
BUN 37 H
Creatinine 6.0 H*
Glucose 126 H
Calcium 7.4 L
Total Bilirubin 0.3
AST 15 L
ALT < 10
Alkaline Phosphatase 92
Vital Signs:
Vital Signs
Temp Pulse Resp BP Pulse Ox
98.0 F 63 16 162/80 100
03/20/24 07:17 03/20/24 11:00 03/20/24 11:00 03/20/24 11:00 03/20/24 09:06
I&O
03/19/24 03/20/24 03/21/24
06:59 06:59 06:59
Intake Total 640 / 640 480 / 480 240 / 240
Output Total 50 / 50
Balance 590 / 590 480 / 480 240 / 240
Review of Systems
-
History Source: Patient
All other systems: Reviewed and negative
Physical Exam
-
General: Well Developed, No Apparent Distress, Pain and Appears Chronically Ill
HEENT: Normocephalic, Atraumatic, Moist Mucous Membranes and Anicteric
Respiratory: Clear to Auscultation and Non Labored Respirations
Cardiac: Regular Rhythm and S1/S2; Negative Murmur, Rub or Gallop
GI: Soft, Nontender, Normal Bowel Sounds and Distended (Mildly worsened from yesterday)
Musculoskeletal: No Clubbing, No Cyanosis and No Edema
Skin: Warm, Dry and Normal Turgor; Negative Rash or Jaundice
Neuro: AO x 3 and Nonfocal/Grossly Intact
Psych: Calm
Data Reviewed
-
Labs: Labs Reviewed by me, Discussed with Nurse and Discussed with Patient
[2024-03-20] MEDS: HEPARIN 25000 UNITS/250 ML IV (12:39)
[2024-03-20] MEDS: SENNA SYRUP 8.8 MG PO (12:45)
[2024-03-20] MEDS: MURO 128/ADSORBONAC 5% EYE DROPS 1 DROP OPHTH ×3 (12:49→21:25)
[2024-03-20] MEDS: NOVOLOG FLEXPEN-MODERATE RESISTANCE 1 UNITS SC (12:50)
[2024-03-20 12:56] LABS: Glucose - Point of Care 163 mg/dl (70-99)
[2024-03-20] MEDS: MIRALAX 17 GRAMS PO (13:17)
--- NOTE | 2024-03-20 13:20 | PTCARENOTE ---
Patient is moving independently in bed today, in good spirits. Tolerating solid foods. No nausea or vomiting, constipation discussed with hospitalist. Miralax and senekot administered. Patients abdomen is round, patient is belching. Heparin drip
infusing as per protocol. Pain is generalized, has relief with Dilaudid IV.
--- NOTE | 2024-03-20 14:06 | W.PN.GI.CBS2 ---
Today's Communication / Plan
-
coreg, abx x7 days, gi signing off
Assessment / Plan
-
Pt is a 58yo with hx decompensated cirrhosis with ascites requiring paracentesis, SBP, Grade I EV, (Etiology ? MASH/? ETOH per chart prior ETOH 5 + years ago, no formal serology work up at [place] except hep B/C neg with hep B immunity and prior
eval with [facility]. Prior SAAG with 1.4 with low protein c/w cirrhosis). Also history of paroxysmal atrial fibrillation on Coumadin, CAD, end-stage renal disease on hemodialysis, heart failure with preserved ejection fraction,
history of pleural effusions with pericardiocentesis, hypertension, spinal stenosis, GERD, ?Dunlap's Esophagus, prior C-diff, DM, CHF, migraines, gastritis, constipation with multiple admission over last year for complication of cirrhosis.
He now presents with coffee ground emesis with stable Hb, tense ascites and abd discomfort.
EGD 03/19 with portal HTN gastropathy suspect cause of coffee ground emesis. s/p octreotide for 3 days.
S/p para 03/18 with no SBP.
Had a ? fever but axillary never oral on d/w ID felt unlikely to be true fever. Blood cultures negative.
Recommendations:
- D/w nephro started on coreg may help with portal HTN gastropathy
- No role to resume diuretics pt does not urinate
- Recommend 7 days of antibiotics with bleed from portal HTN gastropathy can switch to cipro/bactrim on d/c
- No active bleeding can resume A/C d/w hospitalist may be on coumadin due to cost issues (instead of DOAC)
- Follow with [facility] GI outpatient
- Reviewed nephro notes pt with non adherence to HD and multiple admissions for liver dz fdc poor prognosis
D/w nephro and hospitalist
GI will sign off pls call with ?s
Subjective
Subjective
Date of Service: March 20, 2024
Objective
Data Reviewed
Laboratory Data:
Laboratory Results
03/20/24 03:38
03/20/24 03:38
Laboratory Results
PT 16.1 Sec (11.4-14.6) H 03/20/24 03:38
INR 1.26 03/20/24 03:38
APTT 84.0 Sec (23.4-35.0) H 03/20/24 12:59
Magnesium 1.9 mg/dl (1.6-2.3) 03/19/24 04:10
Total Bilirubin 0.3 mg/dl (0.2-1.3) 03/20/24 03:38
AST 15 U/L (17-59) L 03/20/24 03:38
ALT < 10 U/L (0-50) 03/20/24 03:38
Alkaline Phosphatase 92 U/L (38-126) 03/20/24 03:38
Vital Signs and I&O:
Vital Signs
Temp Pulse Resp BP Pulse Ox
98.4 F 63 16 167/77 99
03/20/24 11:24 03/20/24 12:00 03/20/24 11:00 03/20/24 12:00 03/20/24 13:18
I&O
03/19/24 03/20/24 03/21/24
06:59 06:59 06:59
Intake Total 640 / 640 480 / 480 360 / 360
Output Total 50 / 50
Balance 590 / 590 480 / 480 360 / 360
--- NOTE | 2024-03-20 14:55 | W.PN.UPDATE ---
Update Note
Progress Note Update
Case management was able to place Axel, stated first month would be $50 [id number] for patient. He states that this cost is still not affordable for him. Will transition him back to warfarin, will give 5 mg dose of warfarin this evening and
check INR tomorrow. Plan to resume warfarin 3 mg nightly as previously prescribed
[2024-03-20] MEDS: COUMADIN 5 MG PO (17:03)
[2024-03-20] MEDS: STERILE WATER FOR INJECTION 10 ML IV (17:04)
[2024-03-20] MEDS: ROCEPHIN 1000 MG IV (17:04)
[2024-03-20 17:07] LABS: Glucose - Point of Care 149 mg/dl (70-99)
[2024-03-20] MEDS: ZOFRAN 4 MG IV (18:10)
[2024-03-20 18:48] LABS: APTT 102.8 Sec (23.4-35.0)
[2024-03-20 21:36] LABS: Glucose - Point of Care 146 mg/dl (70-99)
[2024-03-20] MEDS: COREG PO (21:48)
[2024-03-20] MEDS: APRESOLINE PO (21:50)
[2024-03-20] MEDS: CATAPRES PO (21:51)
[2024-03-21] VITALS (27 sets, daily range): BP systolic 127–204; BP diastolic 73–107; BMI 23.0
[2024-03-21] MEDS: MURO 128/ADSORBONAC 5% EYE DROPS 1 DROP OPHTH ×6 (01:38→20:38)
[2024-03-21] MEDS: DILAUDID 0.5 MG IV ×5 (01:38→21:53)
[2024-03-21] MEDS: ZOFRAN 4 MG IV ×3 (01:42→19:38)
--- NOTE | 2024-03-21 02:15 | PTCARENOTE ---
Received pt from day shift, ox3. NSR on monitor w/ BBB. VSS. pt c/o n/v. IV Zofran given. Pt did not want to take AILYN PO meds. Reached out to BRANDEE Armenta and she approved holding PO meds for tonight due to pt's n/v. Hygiene completed and PRN
Dilaudid given for pain (see MAR). Heparin gtt infusing at 12 mL/hr. Pt resting in bed with call nieto in reach.
[2024-03-21] MEDS: APRESOLINE 10 MG IV ×3 (04:21→14:18)
[2024-03-21 04:57] LABS: % Basophils 0.4 % (0-2); % Immature Granulocytes 0.4 % (0-0.5); % Lymphocytes 9.1 % (20.5-51.1); % Monocytes 5.4 % (1.7-9.3); % Neutrophils 77.7 % (42.2-75.2); Absolute Eosinophils 0.6 10^3/uL (0-0.7); Absolute Lymphocytes 0.8 10^3/uL (1.2-3.4); Absolute Monocytes 0.5 10^3/uL (0.1-0.6); Hematocrit 30.2 % (39.0-52.0); Hemoglobin 9.5 g/dL (13.0-18.0); Mean Corp Hgb Conc. 31.5 g/dL (33.0-37.0); Mean Corpuscular Hgb 29.5 pg (27.0-31.0); Mean Corpuscular Volume 93.8 fL (80.0-94.0); Mean Platelet Volume 9.6 fL (7.4-10.4); Nucleated Red Blood Cells % 0 % (-); Platelet Count 234 10^3/uL (130-400); Red Blood Cell Count 3.22 10^6/uL (4.70-6.10); Red Cell Dist. Width 14.6 % (11.5-14.5)
[2024-03-21 05:11] LABS: INR 1.17; PT 15.2 Sec (11.4-14.6)
[2024-03-21 05:31] LABS: ALT (SGPT) < 10 U/L (0-50); AST (SGOT) 14 U/L (17-59); Albumin 2.2 g/dl (3.5-5.0); Alkaline Phosphatase 98 U/L (38-126); Blood Urea Nitrogen 46 mg/dl (9-20); Calcium 7.6 mg/dl (8.4-10.2); Carbon Dioxide 25 mmol/L (22-30); Chloride 96 mmol/L (98-107); Estimated Creatinine Clearance 12 ml/min; Glucose 119 mg/dl (70-99); Potassium 5.9 mmol/L (3.5-5.1); Sodium 130 mmol/L (135-145); Total Bilirubin 0.3 mg/dl (0.2-1.3); Total Protein 5.4 g/dl (6.3-8.2); eGFR 8.39
[2024-03-21 06:12] LABS: APTT 94.2 Sec (23.4-35.0)
[2024-03-21] MEDS: RENVELA PO ×2 (08:25→17:11)
[2024-03-21] MEDS: APRESOLINE PO (08:26)
[2024-03-21] MEDS: CATAPRES PO (08:26)
[2024-03-21] MEDS: COREG PO (08:27)
[2024-03-21] MEDS: PROCARDIA XL (EXTENDED RELEASE) PO (08:27)
[2024-03-21] MEDS: NOVOLOG FLEXPEN-MODERATE RESISTANCE SC ×3 (08:32→17:35)
[2024-03-21 08:37] LABS: Glucose - Point of Care 98 mg/dl (70-99)
[2024-03-21] MEDS: PROTONIX PO (09:08)
--- NOTE | 2024-03-21 09:25 | W.PN.HOSP.TC ---
Addendum entered and electronically signed by Taran Butt MD 03/21/24 17:32:
I saw and evaluated the patient. I reviewed the resident�s note and agree with findings and plan as documented in the resident�s note except for changes in my documentation
58-year-old male with abdominal pain and distention. He has a history of cirrhosis requiring large-volume paracentesis
EGD-grade 1 esophageal varices. Small hiatal hernia. Portal hypertensive gastropathy. Normal duodenum.
Cardiovascular system S1-S2 appreciated, systolic murmur at aortic area
Chest decreased breath sounds at bases
Abdomen distended, mild tenderness with palpation
No pedal edema
# Recurrent ascites
Portal hypertension
Status post paracentesis 03/18/2024-no evidence of current SBP
1 episode of fever. Axillary temperature.
Antibiotics for 7 days for portal hypertensive gastropathy
Follows up with [facility] GI as outpatient
Complains of nausea and abdominal pain
Will ask IR to do another paracentesis
# Hypertension-was on clonidine, hydralazine, losartan, nifedipine, Aldactone as outpatient
Losartan held secondary to hyperkalemia
Currently on Coreg, nifedipine, clonidine, hydralazine
Because of patient's nausea changed clonidine to patch
Losartan restarted per nephrology. Watch potassium closely
# Paroxysmal atrial fibrillation was on Coumadin as outpatient
Looking at the cost of DOAC. Continue Coreg
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 Outpatient follow-up with GI
# Hematemesis with history of grade 1 esophageal varices
Acute blood loss anemia
Status post octreotide drip, PPI drip.
Coumadin was reversed with Kcentra and vitamin K
EGD on 03/19/2024 without any evidence of variceal bleeding.
Hemoglobin between 9 and 9.6
Continue PPI and beta-blockers
#Recurrent transudative bilateral pleural effusions: multifactorial (CKD, hypoalbuminemia, Heart Failure)
Right Thoracentesis 09/15/23 -yielding 500 cc of clear matias pleural fluid.Path pending.
R thoracentesis - 1L, cytology negative
L thoracentesis 12/31/22- 1400mL
L thoracentesis -2.05L, straw color, transudative
R thoracentesis - 1.6L, straw color, transudative
L tap at [facility]- 1L (Unclear details)
Needs OP Pulm eval.
# Hyponatremia-to be corrected during dialysis
# Cirrhosis-suspected SEN
# ESRD on hemodialysis Thursday. Left radial aVF. Metabolic acidosis. Continue sevelamer.
# Diabetes-on insulin lispro as outpatient. Check Accu-Cheks and sliding scale coverage
# Chronic HFpEF-holding MRA, volume control with hemodialysis. Not on SGLT2 inhibitors
# Coronary disease with PCI 2015
# Peripheral artery disease with history of femoropopliteal bypass-continue statin
# Depression-continue sertraline
# Chronic pain from spinal stenosis with history of surgeries with chronic ambulatory dysfunction-opiate dependent
# History of C. difficile
#Migraines was on Aimovig monthly
# History of pericardial effusion with pericardiocentesis at [facility]
# Multiple admissions with noncompliance
# Hypoalbuminemia
#Former alcohol use
# Ex-smoker
# DVT prophylaxis-heparin drip
# Full code
Discussed with nursing at bedside
Residents discussed with nephrology
IR consulted
Total time over 50 minutes
Part of this note was created using voice recognition system. Occasional wrong word or��sound alike� substitutions may have inadvertently occurred due to the inherent limitations of voice recognition software. If noted kindly bring it to my
attention for correction.
Original Note:
Today's Communication/Plan
-
cont current mgmt. palliative care consult.
GI reeval
Assessment / Plan
Assessment / Plan
58 yo man with hx ESRD on HD MWF from [facility](previously T//Sat at [facility]), non compliance with HDs, residual urine output on bumex, CAD, atrial fibrillation on coumadin, IDDM, HTN on Procardia, losartan, clonidine,hydralazine,
Aldactone, HLD on statin, Vascepa, hyperphosphatemia on Renvela, recent new diagnosis of cirrhosis and ascites presented with abdominal discomfort and due for paracentesis, with n/v, and hematemesis
#Recurrent ascites
#H/O SBP
-Previous paracentesis with a SAG >1.1 and other parameters consistent with portal hypertension
-Presented here with recurrent ascites and fevers per axillary temperature initially
-Status post paracentesis on 03/18 6000cc, no signs of SBP; ceftriaxone decreased from 2 g to 1 g daily
-Blood cultures x 2 were obtained earlier, have remained negative but pending final read
-Holding diuretics; no role for resumption as he makes minimal urine from ESRD
-Monitor abdomen clinically for recurrent ascites
-one time tigan IM for nausea
-palliative care consulted
-requested GI to reeval re patient c/o abd pain and distension
#HTN
-Home medications include clonidine, hydralazine, losartan, nifedipine, spironolactone; HD for volume
-Losartan was held here due to hyperkalemia that was fairly persistent; Aldactone held due to possible SBP
-Blood pressure has been persistently elevated here, slightly improved since paracentesis
-Was started on carvedilol, nifedipine dose increased to 60 mg with some improvement
-not taking meds Po b/c of nausea, ordered clonidine 0.3 patch
-Continue clonidine, hydralazine, nifedipine, carvedilol at current doses
-Continue with IV hydralazine as needed
-Consider up titrating nifedipine to 90 mg
#Paroxysmal atrial fibrillation
-Home medications include warfarin for AC, INR goal 2�3; not on rate or rhythm controlling agents
-Warfarin held on admission due to concerns for variceal bleed; status post reversal as well as above
-No evidence of rapid ventricular rates here; started on carvedilol as above for esophageal varices
-Warfarin likely poor choice of AC due to his compliance issues; planning transition to eliquis if stable
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
-Was transition back to oral PPI twice daily after EGD for likely Dunlap's
-Will need to follow-up outpatient for repeat EGD +/- EUS
#Hematemesis
#H/O grade 1 esophageal varices
-Presented with hematemesis, concern for variceal bleed due to his history, INR 3.01 on warfarin
-Status post octreotide drip, IV PPI drip, warfarin reversal with Kcentra and vitamin K
-EGD performed on 03/19 without any evidence of ongoing variceal bleeding
-Has remained hemodynamically stable, Hgb between 9 and 9.6 over multiple lab draws
-Currently on oral PPI therapy; Started on carvedilol for variceal prophylaxis
-Hematemesis resolved
#Cirrhosis
-Unclear etiology though suspected from SEN versus alcohol versus viral hepatitis
-MELD score unreliable due to hemodialysis requirements, previous treatment with warfarin but likely high
-Complicated by grade 1 varices and ascites as above; unclear if HRS led to his ESRD
-Will continue to monitor CMP and INR
#End-stage renal disease
-Unclear etiology, may be related to cirrhosis with hepatorenal syndrome in the past (?) versus diabetes
-Currently on HD every M// though compliance has been an issue; Home meds include sevelamer
-Will continue to monitor BMP daily, dialysis as previously scheduled
#Type 2 diabetes with hypoglycemia
-No recent A1c; Home medications include insulin lispro
-Was hypoglycemic initially, likely hepatic dysfunction and issues with liberating glucose
-Standing dose insulin was held, started on sliding scale with Accu-Cheks
-Glucose has been improved and within goal on sliding scale and only
#HFpEF
-Unclear etiology, likely associated with volume overload in the setting of dialysis
-Not currently on SGLT2 inhibitor, is on an MRA for his cirrhosis with ascites
#CAD status post PCI (2016)
#PAD s/p femoropopliteal bypass
-Home medications include high intensity statin; not currently on any antiplatelet agents though is on warfarin as above
-No signs or symptoms of coronary ischemia nor limb ischemia during this hospitalization
#Chronic pain due to spinal stenosis
-Chronic ambulatory dysfunction
-Continue dilaudid with caution for oversedation.
-Physical therapy assessment once stable.
DVT prophylaxis: Heparin drip
Diet: Renal diet
CODE STATUS: Full code
Anticipated Discharge: 24 - 48 hours
Subjective/Interval History
-
Date of Service: March 21, 2024
Seen and examined at the bedside. No acute events reported overnight. AFVSS this morning. c/o abdominal and lower back discomfort
Objective Data
-
Labs:
Laboratory Results
03/21/24 03/21/24
04:40 05:50
WBC 9.0
Hgb 9.5 L
Hct 30.2 L
Plt Count 234
PT 15.2 H
INR 1.17
APTT 94.2 H Cancelled
Sodium 130 L
Potassium 5.9 H
Chloride 96 L
Carbon Dioxide 25
BUN 46 H
Creatinine 7.0 H*
Glucose 119 H
Calcium 7.6 L
Total Bilirubin 0.3
AST 14 L
ALT < 10
Alkaline Phosphatase 98
Vital Signs:
Vital Signs
Temp Pulse Resp BP Pulse Ox
97.7 F 78 11 186/84 98
03/21/24 07:15 03/21/24 08:37 03/21/24 04:03 03/21/24 08:37 03/21/24 02:37
I&O
03/20/24 03/21/24 03/22/24
06:59 06:59 06:59
Intake Total 480 / 480 624 / 624
Output Total 0 / 0
Balance 480 / 480 624 / 624
Review of Systems
-
History Source: Patient
Abdomen/GI: Reports Abdominal Pain
Musculoskeletal: Reports Other (Lower back pain)
Physical Exam
-
General: Well Developed, No Apparent Distress, Pain and Appears Chronically Ill
HEENT: Normocephalic, Atraumatic, Moist Mucous Membranes and Anicteric
Respiratory: Clear to Auscultation and Non Labored Respirations
Cardiac: Regular Rhythm and S1/S2; Negative Murmur, Rub or Gallop
GI: Soft, Normal Bowel Sounds, Tender and Distended
Musculoskeletal: No Clubbing, No Cyanosis and No Edema
Skin: Warm, Dry and Normal Turgor; Negative Rash or Jaundice
Neuro: AO x 3 and Nonfocal/Grossly Intact
Psych: Calm
Data Reviewed
-
Labs: Labs Reviewed by me
--- NOTE | 2024-03-21 09:55 | CM ---
Late note from 03/20/2024: Dr. Hwang asked for pricing for Eliquis; Pt's copay is $47. CM anticipated providing copay card, however pt is from [facility], so medications will be provided there.
[2024-03-21] MEDS: CATAPRES-TTS-3 0.3 MG TRANSDERM (11:56)
[2024-03-21] MEDS: HEPARIN 25000 UNITS/250 ML IV (11:58)
[2024-03-21] MEDS: TIGAN 200 MG IM (12:02)
--- NOTE | 2024-03-21 12:51 | CM ---
Patient from [facility] with Hx ESRD on HD. Room air. Receiving Heparin gtt, IV Abx, IV Zofran prn. PT/OT recommend skilled rehab.
Message from Dr Butt; plan Palliative Care Consult.
Met with patient; explained/provided Eliquis Free Month Eliquis Card. Patient aware he may or may not need the Eliquis card as he states he may stay group home at SNF as he is otherwise homeless. He stated he is unsure if he has someone helping him
look for housing. Patient did not seem to want to talk further, he stated he was not feeling well and he had an emesis basin nearby.
[facility]: The ph for report [phone], fax [phone].
Plan return to [facility] when medically ready.
[2024-03-21] MEDS: RENVELA 1600 MG PO (13:05)
[2024-03-21 13:08] LABS: Glucose - Point of Care 98 mg/dl (70-99)
--- NOTE | 2024-03-21 14:22 | PTCARENOTE ---
PRN Hydralazine given at this time for BP 193/93, ok per HD RN. Pt remains uncomfortable and drowsy, moaning intermittently. Emotional support provided.
--- NOTE | 2024-03-21 14:32 | W.PN.NEPH.HD ---
Assessment
-
pt evaluated during HD
BPs are high , UF as much he tolerates
BB added on 03/20-titrate dose as needed, nifedipine dos eincreased this admit
resume Losartan, clonidine changing to patch by primary
hyperkalemia likely not from med
he is requesting short HD time-reviewed with pt to be compliant with dialysis
I am concerned that his non compliance will only result more complications
benefit from palliative care , fdc prognosis is poor
strict renal diet and FR
Progress Note - Hemodialysis
-
Date of Service: March 21, 2024
Duration: 30 minutes and 3 hours
Potassium Bath: 2
Calcium Bath: 2.5
Opti-Dialyzer: 160
Ultrafiltration: Other (2-2.5kg)
Blood Flow: 400
Dialysate Flow: 600
Heparin: no
EPO: [id number]
[2024-03-21] MEDS: RETACRIT 10000 UNITS IV (14:37)
[2024-03-21] MEDS: LIDOCAINE 4% PATCH 1 PATCH TOPICAL (17:04)
[2024-03-21] MEDS: CATAPRES 0.2 MG PO ×2 (17:05→21:54)
[2024-03-21] MEDS: APRESOLINE 100 MG PO ×2 (17:05→21:56)
[2024-03-21 17:23] LABS: Glucose - Point of Care 91 mg/dl (70-99)
--- NOTE | 2024-03-21 17:28 | PTCARENOTE ---
Pt finished HD, 2 kilos off. remains hypertensive, per HD RN, ok to give BP medications, pt asking for PRN pain meds as well. Encouraged to take BP meds keyshawn, pt stated he needs to try to get some food into his stomach first. Glucose checked, tray
provided, pt stated he will take oral BP meds when he feels able. Not due for IV PRN Hydralazine yet. PRN Dilaudid administered.
[2024-03-21] MEDS: TRANDATE 10 MG IV (18:24)
[2024-03-21] MEDS: ROCEPHIN 1000 MG IV (18:25)
[2024-03-21] MEDS: STERILE WATER FOR INJECTION 10 ML IV (18:26)
[2024-03-21 18:30] LABS: Potassium 4.2 mmol/L (3.5-5.1)
[2024-03-21] MEDS: COREG 6.25 MG PO (20:30)
[2024-03-21] MEDS: COZAAR 50 MG PO (20:37)
[2024-03-21] MEDS: LIPITOR 80 MG PO (21:56)
[2024-03-21 22:34] LABS: Glucose - Point of Care 134 mg/dl (70-99)
[2024-03-22] VITALS (18 sets, daily range): BP systolic 85–213; BP diastolic 82–111; BMI 22.1
[2024-03-22] MEDS: MURO 128/ADSORBONAC 5% EYE DROPS OPHTH ×2 (01:01→17:52)
[2024-03-22] MEDS: APRESOLINE 10 MG IV ×4 (01:32→22:06)
[2024-03-22] MEDS: DILAUDID 0.5 MG IV ×6 (02:07→23:30)
--- NOTE | 2024-03-22 02:30 | PTCARENOTE ---
PO bp meds given in beginning of shift at 8pm & 10pm with little to no effect on bp. Went to administer iv hydralazine at 1230 but pt ripped IV out. VAT up to see pt. Once iv placed, hydralazine given. No effect so far. Will monitor.
--- NOTE | 2024-03-22 02:51 | PTCARENOTE ---
PT aaox3, flat. NSR PVC BBB. Continues with high Bp's, see previous note. Ascites, oliguric. Bedrest. Hep gtt continues, ptt in am. pain throughout body, dilaudid given. N/V is constant. Will monitor.
[2024-03-22] MEDS: MURO 128/ADSORBONAC 5% EYE DROPS 1 DROP OPHTH ×5 (05:51→23:38)
[2024-03-22 06:49] LABS: APTT 43.8 Sec (23.4-35.0)
[2024-03-22 07:30] LABS: ALT (SGPT) < 10 U/L (0-50); AST (SGOT) 19 U/L (17-59); Albumin 2.5 g/dl (3.5-5.0); Alkaline Phosphatase 114 U/L (38-126); Blood Urea Nitrogen 27 mg/dl (9-20); Calcium 8.2 mg/dl (8.4-10.2); Carbon Dioxide 26 mmol/L (22-30); Chloride 98 mmol/L (98-107); Estimated Creatinine Clearance 17 ml/min; Glucose 76 mg/dl (70-99); Potassium 5.1 mmol/L (3.5-5.1); Sodium 134 mmol/L (135-145); Total Bilirubin 0.4 mg/dl (0.2-1.3); Total Protein 6.1 g/dl (6.3-8.2); eGFR 13.54
[2024-03-22 08:06] LABS: Glucose - Point of Care 79 mg/dl (70-99)
[2024-03-22 08:35] LABS: INR 1.07; PT 14.2 Sec (11.4-14.6)
[2024-03-22] MEDS: ZOFRAN 4 MG IV ×2 (08:41→23:35)
[2024-03-22] MEDS: NOVOLOG FLEXPEN-MODERATE RESISTANCE SC ×3 (08:45→17:52)
[2024-03-22 09:02] LABS: % Eosinophils 5.7 % (0-6); % Immature Granulocytes 0.5 % (0-0.5); % Lymphocytes 8.7 % (20.5-51.1); % Monocytes 7.8 % (1.7-9.3); % Neutrophils 76.3 % (42.2-75.2); Absolute Basophils 0.1 10^3/uL (0-0.2); Absolute Eosinophils 0.6 10^3/uL (0-0.7); Absolute Immature Granulocytes 0.1 10^3/uL (0-0.05); Absolute Lymphocytes 0.9 10^3/uL (1.2-3.4); Absolute Monocytes 0.8 10^3/uL (0.1-0.6); Hematocrit 36.1 % (39.0-52.0); Hemoglobin 11.7 g/dL (13.0-18.0); Mean Corp Hgb Conc. 32.4 g/dL (33.0-37.0); Mean Corpuscular Hgb 30.5 pg (27.0-31.0); Mean Platelet Volume 9.6 fL (7.4-10.4); Nucleated Red Blood Cells % 0 % (-); Platelet Count 320 10^3/uL (130-400); Red Blood Cell Count 3.84 10^6/uL (4.70-6.10); White Blood Cell Count 10.5 10^3/uL (4.8-10.8)
[2024-03-22 09:22] LABS: Glucose - Point of Care 64 mg/dl (70-99)
[2024-03-22] MEDS: RENVELA PO ×3 (09:26→17:53)
[2024-03-22] MEDS: APRESOLINE PO ×2 (09:26→17:51)
[2024-03-22] MEDS: PROCARDIA XL (EXTENDED RELEASE) PO (09:27)
[2024-03-22] MEDS: PROTONIX PO (09:27)
[2024-03-22] MEDS: COREG PO (09:27)
[2024-03-22] MEDS: LIDOCAINE 4% PATCH 1 PATCH TOPICAL (09:33)
[2024-03-22] MEDS: TRANDATE 10 MG IV (09:33)
--- NOTE | 2024-03-22 11:06 | W.CON.PAL ---
Consultation
-
Date/Time Consultation Requested: 03/21/2024
Date/Time Consultation Performed: 03/22/2024
Requesting Provider: Dr. Butt
Performing Provider: Dr. Wesley
Reason for Consult: Goals of Care Discussion
Primary Diagnosis: ESRD,
Consult Requested By: Patient's Physician
Reason for Admission
Illness Course/HPI
Lupillo is a 58 y/o male with multiple medical conditions including ESRD, cirrhosis, CAD, recent hospitalization for GIB (INR 8, hgb 3.1) s/p clip, discharged to SNF and returned on 03/16 with vomiting and abdominal pain. Per chart review, patient
with difficulty with medication and dialysis compliance.
Palliative care consulted to review goals of care
Functional Status
Patient was previously living with his cousins, currently states he cannot return there, will need half-way placement.
at time of last hospital discharge could walk approx 15 feetx 2 with RW
Goals of Care Discussion
-
Individuals Present for Discussion & Relationship to Patient:
Patient
Patient able to participate in discussion at time of visit: Yes
Patient Goals
Patient has not completed a living will.
He is , does not have biological children. His sister Elizabeth condon would be his medical healthcare represetnative.
Discussed overall condition - he reports he is tired of being sick, needing dialysis x 7.5 years. but he is not ready to consider transition to hospice care.
He would be accept half-way care placement.
Discussed code status - does not want resusitation. will change to DNR.
Pain & Symptom Assessment
-
c/o of symptoms of chronic back pain, nausea, dyspnea
Objective Data
-
Objective Data:
Vital Signs
Temp Pulse Resp BP Pulse Ox
98.5 F 91 11 201/90 97
03/22/24 07:00 03/22/24 09:33 03/22/24 06:00 03/22/24 09:33 03/21/24 08:00
Laboratory Results
03/22/24 08:12
03/22/24 06:15
PT 14.2 Sec (11.4-14.6) 03/22/24 06:15
INR 1.07 03/22/24 06:15
APTT 43.8 Sec (23.4-35.0) H 03/22/24 06:15
Ammonia < 9 umol/L (9-30) L 03/16/24 12:26
Total Protein 6.1 g/dl (6.3-8.2) L 03/22/24 06:15
Albumin 2.5 g/dl (3.5-5.0) L 03/22/24 06:15
Urine Color Yellow 03/18/24 17:47
Urine Clarity Slightly cloudy (Clear) 03/18/24 17:47
Urine pH 7.0 (5.0-9.0) 03/18/24 17:47
Ur Specific [place] 1.010 (<1.030) 03/18/24 17:47
Urine Ketones Negative (Negative) 03/18/24 17:47
Urine Bilirubin 1+ (Negative) A 03/18/24 17:47
Palliative Performance Scale
Palliative Performance Scale:
PPS Level Ambulation Activity & Evidence of Disease Self Care Intake Conscious Level
100% Full Normal Activity & Work; Full Intake Full
No Evidence of Disease
90% Full Normal Activity & Work; Full Normal Full
Some Evidence of Disease
80% Full Normal Activity with Effort Full Normal or Full
Some Evidence of Disease Reduced
70% Reduced Unable Normal Job/Work Full Normal or Full
Significant Disease Reduced
60% Reduced Unable Hobby/Housework Occasional Normal or Full or Confusion
Significant Disease Assistance Reduced
50% Mainly Sit/Lie Unable to do Any Work Considerable Normal or Full or Confusion
Extensive Disease Assistance Req'd Reduced
40% Mainly in Bed Unable to do Most Activity Mainly Assistance Normal or Full or Drowsy;
Extensive Disease Reduced +/- Confusion
30% Totally Bed Unable to do Any Activity Total Care Normal or Full or Drowsy;
Bound Extensive Disease Reduced +/- Confusion
20% Totally Bed Bound Unable to do Any Activity Total Care Minimal to Full or Drowsy;
Extensive Disease Sips +/- Confusion
10% Totally Bed Bound Unable to do Any Activity Total Care Mouth Care Drowsy or Coma;
Extensive Disease Only +/- Confusion
0%
PPS Score Level:
Palliative Performance Score Response
Palliative Performance Score Response: 40%
Physical Exam
-
General: No Apparent Distress and Comfortable
Neuro: Awake and Alert
Psych: Calm
Assessment / Plan
-
Assessment/Plan:
Goals are currently treatment oriented
Patient will need LTC placement at a facility that can accommodate dialysis
Patient wishes to change code status to DNR - will place order
Attending team updated
total floor time 60 mins
[2024-03-22 11:18] LABS: Glucose - Point of Care 100 mg/dl (70-99)
--- NOTE | 2024-03-22 12:45 | W.PN.NEPH.PH ---
Today's Communication / Plan
-
HD tomorrow
Assessment/Plan
-
Impression:
coffee-ground emesis -GIB /portal gastropathy/
Recent hospitalization with life-threatening gastrointestinal hemorrhage
Accelerated hypertension secondary to volume overload.
Recurrent ascites
hypoglycemia
Coumadin Coagulopathy
Hyperkalemia
Metabolic Acidosis
ESRD on hemodialysis at [facility], previously TTS [facility]
Anemia of ESRD
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
Paroxysmal Atrial Fibrillation
Chronic HFpEF
History of bilateral pleural effusions status post thoracentesis
History of pericardial effusion status post pericardiocentesis
Coronary artery disease
Essential hypertension
DM2 with multiple microvascular complications
Hyperlipidemia
Spinal stenosis
Anxiety/depression
L radial AVF
Plan:
A/w hematemesis from NH
still with ongoing n/v, hb stable
BP high since unable to take po meds
c/o back pian acute on chr receiving Dilaudid
added coreg for portal gastropathy
clonidine changed to patch , procardia increased dose, resume Losartan if needed
abx per primary
He has multiple admits recently mainly for decompensated liver disease, non adherence to HD suggest over all retirement prognosis is poor
changed to DNR
HD tomorrow
d/w primary
-
-
Date of Service: March 22, 2024
CC / HPI / ROS
-
Chief Complaint:
ESRD
History of Present Illness:
hb up at 11.7
BP high unable to take meds with n/v
k at 5.1
ESRD Thursday
Review of Systems:
c/o cp or sob does not give more details-suspect from vomiting
c/o abd pain and back pain
No fevers
Labs
-
Labs:
WBC 10.5 10^3/uL (4.8-10.8) 03/22/24 08:12
RBC 3.84 10^6/uL (4.70-6.10) L 03/22/24 08:12
Hgb 11.7 g/dL (13.0-18.0) L D 03/22/24 08:12
Hct 36.1 % (39.0-52.0) L 03/22/24 08:12
Plt Count 320 10^3/uL (130-400) D 03/22/24 08:12
Sodium 134 mmol/L (135-145) L 03/22/24 06:15
Potassium 5.1 mmol/L (3.5-5.1) 03/22/24 06:15
Chloride 98 mmol/L (98-107) 03/22/24 06:15
Carbon Dioxide 26 mmol/L (22-30) 03/22/24 06:15
BUN 27 mg/dl (9-20) H 03/22/24 06:15
Creatinine 4.7 mg/dL (0.7-1.3) H* 03/22/24 06:15
eGFR 13.54 03/22/24 06:15
Glucose 76 mg/dl (70-99) 03/22/24 06:15
Calcium 8.2 mg/dl (8.4-10.2) L 03/22/24 06:15
Albumin 2.5 g/dl (3.5-5.0) L 03/22/24 06:15
Physical Exam
-
Vital Signs:
Vital Signs
Temp Pulse Resp BP Pulse Ox
98.2 F 93 16 166/95 97
03/22/24 11:26 03/22/24 12:00 03/22/24 12:00 03/22/24 12:00 03/21/24 08:00
Cardiovascular:: Regular rate and rhythm
Respiratory:: Bilateral: CTA (decreased)
Lung Excursion:: Abnormal
Abdomen:: Distended, Soft and Tender (gen TTP)
Extremity Edema:: None: Bilateral: (trace)
Alfred Catheter: No
--- NOTE | 2024-03-22 13:17 | W.PN.HOSP.TC ---
Addendum entered and electronically signed by Taran Butt MD 03/23/24 08:17:
stage 1 PI sacrum and heels POA
Addendum entered and electronically signed by Taran Butt MD 03/22/24 14:57:
I also think that part of the reason why his blood pressure was running high is because of pain. Continue p.o. meds and IV meds for hypertension and control pain and watch
Addendum entered and electronically signed by Taran Butt MD 03/22/24 14:56:
I saw and evaluated the patient. I reviewed the resident�s note and agree with findings and plan as documented in the resident�s note except for changes in my documentation
58-year-old male with abdominal pain and distention. He has a history of cirrhosis requiring large-volume paracentesis
EGD-grade 1 esophageal varices. Small hiatal hernia. Portal hypertensive gastropathy. Normal duodenum.
Cardiovascular system S1-S2 appreciated, systolic murmur at aortic area
Chest decreased breath sounds at bases
Abdomen distended, mild tenderness with palpation
No pedal edema
# Recurrent ascites
Portal hypertension
Status post paracentesis 03/18/2024-no evidence of current SBP
1 episode of fever. Axillary temperature.
Antibiotics for 7 days for portal hypertensive gastropathy
Follows up with [facility] as outpatient
Complains of nausea and abdominal pain
IR. 6.8 L of paracentesis 03/22/24 and after which his pain is better
We can start fentanyl patch for his pain
# Hypertension-was on clonidine, hydralazine, losartan, nifedipine, Aldactone as outpatient
Aldactone held secondary to hyperkalemia
Currently on Coreg, nifedipine, clonidine, hydralazine. Patient has been missing many p.o. doses because of his nausea and vomiting
Because of patient's nausea changed clonidine to patch, weaning p.o. clonidine
Losartan restarted. Potassium stable
# Paroxysmal atrial fibrillation was on Coumadin as outpatient
Looking at the cost of DOAC. Continue Coreg
If patient is going to rehab I would still do DOAC instead of Coumadin as it is easier to manage in his case.
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 Outpatient follow-up with GI
# Hematemesis with history of grade 1 esophageal varices
Acute blood loss anemia
Status post octreotide drip, PPI drip.
Coumadin was reversed with Kcentra and vitamin K
EGD on 03/19/2024 without any evidence of variceal bleeding.
Continue PPI and beta-blockers
#Recurrent transudative bilateral pleural effusions: multifactorial (CKD, hypoalbuminemia, Heart Failure)
Right Thoracentesis 09/15/23 -yielding 500 cc of clear matias pleural fluid.Path pending.
R thoracentesis - 1L, cytology negative
L thoracentesis 12/31/22- 1400mL
L thoracentesis -2.05L, straw color, transudative
R thoracentesis - 1.6L, straw color, transudative
L tap at [facility]- 1L (Unclear details)
OP Pulm eval.
# Hyponatremia-to be corrected during dialysis
# Cirrhosis-suspected SEN
# ESRD on hemodialysis Thursday. Left radial aVF. Metabolic acidosis. Continue sevelamer.
# Diabetes-on insulin lispro as outpatient. Check Accu-Cheks and sliding scale coverage
# Chronic HFpEF-holding MRA, volume control with hemodialysis. Not on SGLT2 inhibitors
# Coronary disease with PCI 2015
# Peripheral artery disease with history of femoropopliteal bypass-continue statin
# Depression-continue sertraline
# Chronic pain from spinal stenosis with history of surgeries with chronic ambulatory dysfunction-opiate dependent
# History of C. difficile
# Migraines was on Aimovig monthly
# History of pericardial effusion with pericardiocentesis at [facility]
# Multiple admissions with noncompliance
# Hypoalbuminemia
# Former alcohol use
# Ex-smoker
# DVT prophylaxis-heparin drip
# Full code
Discussed with nursing at bedside
Residents discussed with nephrology
D/W Palliative care
Patient often states that he does not want to sit through dialysis and sometimes he feels like he is suffering. I brought up the subject of hospice he wants to think about it and was not sure. Palliative care is also following and they also
discussed about hospice.
Called and left a message for sister.
Poor prognosis.
Total time over 50 minutes
Part of this note was created using voice recognition system. Occasional wrong word or��sound alike� substitutions may have inadvertently occurred due to the inherent limitations of voice recognition software. If noted kindly bring it to my
attention for correction.
Original Note:
Today's Communication/Plan
-
considering transition to [facility] since he ll going to a facility, continue heparin for now bc of nausea/vomiting
cont. abx
Ir for repeat para?
tigan ahsan
Patient thinking about hospice
Assessment / Plan
Assessment / Plan
58 yo man with hx ESRD on HD M[facility] at [facility]), non compliance with HDs, residual urine output on bumex, CAD, atrial fibrillation on coumadin, IDDM, HTN on Procardia, losartan, clonidine,hydralazine,
Aldactone, HLD on statin, Vascepa, hyperphosphatemia on Renvela, recent new diagnosis of cirrhosis and ascites presented with abdominal discomfort and due for paracentesis, with n/v, and hematemesis
#Recurrent ascites
#H/O SBP
-Previous paracentesis with a SAG >1.1 and other parameters consistent with portal hypertension
-Presented here with recurrent ascites and fevers per axillary temperature initially
-Status post paracentesis on 03/18 6000cc, no signs of SBP; ceftriaxone decreased from 2 g to 1 g daily
-Blood cultures x 2 were obtained earlier, have remained negative but pending final read
-Holding diuretics; no role for resumption as he makes minimal urine from ESRD
-Monitor abdomen clinically for recurrent ascites
-tigan IM for nausea
-palliative care; he is not ready to consider transition to hospice care.
-IR to reeval re patient c/o abd pain and distension
#HTN
-Home medications include clonidine, hydralazine, losartan, nifedipine, spironolactone; HD for volume
-Losartan was held here due to hyperkalemia that was fairly persistent; Aldactone held due to possible SBP
-Blood pressure has been persistently elevated here, slightly improved since paracentesis
-Was started on carvedilol, nifedipine dose increased to 60 mg with some improvement
-not taking meds Po b/c of nausea, ordered clonidine 0.3 patch
-Continue clonidine, hydralazine, nifedipine, carvedilol at current doses
-Continue with IV hydralazine as needed
-Consider up titrating nifedipine to 90 mg
-one time dose of iv labetalol
#Paroxysmal atrial fibrillation
-Home medications include warfarin for AC, INR goal 2�3; not on rate or rhythm controlling agents
-Warfarin held on admission due to concerns for variceal bleed; status post reversal as well as above
-No evidence of rapid ventricular rates here; started on carvedilol as above for esophageal varices
-Warfarin likely poor choice of AC due to his compliance issues; planning transition to eliquis if stable
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
-transition back to oral PPI twice daily likely Dunlap's
-Will need to follow-up outpatient for repeat EGD +/- EUS
#Hematemesis
#H/O grade 1 esophageal varices
-Presented with hematemesis, concern for variceal bleed due to his history, INR 3.01 on warfarin
-Status post octreotide drip, IV PPI drip, warfarin reversal with Kcentra and vitamin K
-EGD performed on 03/19 without any evidence of ongoing variceal bleeding
-Has remained hemodynamically stable, Hgb between 9 and 9.6 over multiple lab draws
-Currently on oral PPI therapy; Started on carvedilol for variceal prophylaxis
-Hematemesis resolved
#Cirrhosis
-Unclear etiology though suspected from SEN versus alcohol versus viral hepatitis
-MELD score unreliable due to hemodialysis requirements, previous treatment with warfarin but likely high
-Complicated by grade 1 varices and ascites as above; unclear if HRS led to his ESRD
-Will continue to monitor CMP and INR
#End-stage renal disease
-Unclear etiology, may be related to cirrhosis with hepatorenal syndrome in the past (?) versus diabetes
-Currently on HD every M// though compliance has been an issue; Home meds include sevelamer
-Will continue to monitor BMP daily, dialysis as previously scheduled
- HD tomorrow
#Type 2 diabetes with hypoglycemia
-No recent A1c; Home medications include insulin lispro
-Was hypoglycemic initially, likely hepatic dysfunction and issues with liberating glucose
-Standing dose insulin was held, started on sliding scale with Accu-Cheks
-Glucose has been improved and within goal on sliding scale and only
#HFpEF
-Unclear etiology, likely associated with volume overload in the setting of dialysis
-Not currently on SGLT2 inhibitor, is on an MRA for his cirrhosis with ascites
#CAD status post PCI (2015)
#PAD s/p femoropopliteal bypass
-Home medications include high intensity statin; not currently on any antiplatelet agents though is on warfarin as above
-No signs or symptoms of coronary ischemia nor limb ischemia during this hospitalization
#Chronic pain due to spinal stenosis
-Chronic ambulatory dysfunction
-Continue dilaudid with caution for oversedation.
-Physical therapy assessment once stable.
- Stage 1 sacrum pressure injury, POA
- Stage 1 bilateral heels pressure injury, POA
DVT prophylaxis: Heparin drip
Diet: Renal diet
CODE STATUS: Full code
Anticipated Discharge: 24 - 48 hours
Subjective/Interval History
-
Date of Service: March 22, 2024
Seen and examined at the bedside. c/o abdominal and lower back discomfort
Objective Data
-
Labs:
Laboratory Results
03/22/24 03/22/24 03/22/24
06:15 08:12 13:30
WBC Cancelled 10.5
Hgb Cancelled 11.7 L D
Hct Cancelled 36.1 L
Plt Count Cancelled 320 D
PT 14.2
INR 1.07
APTT 43.8 H Pending
Sodium 134 L
Potassium 5.1
Chloride 98
Carbon Dioxide 26
BUN 27 H
Creatinine 4.7 H*
Glucose 76
Calcium 8.2 L
Total Bilirubin 0.4
AST 19
ALT < 10
Alkaline Phosphatase 114
Vital Signs:
Vital Signs
Temp Pulse Resp BP Pulse Ox
98.2 F 93 16 166/95 97
03/22/24 11:26 03/22/24 12:00 03/22/24 12:00 03/22/24 12:00 03/21/24 08:00
I&O
03/21/24 03/22/24 03/23/24
06:59 06:59 06:59
Intake Total 624 / 624 240 / 240
Output Total 0 / 0 50 / 50
Balance 624 / 624 -50 / -50 240 / 240
Review of Systems
-
History Source: Patient
Abdomen/GI: Reports Abdominal Pain
Musculoskeletal: Reports Other (Lower back pain)
Physical Exam
-
General: Well Developed, No Apparent Distress, Pain and Appears Chronically Ill
HEENT: Normocephalic, Atraumatic, Moist Mucous Membranes and Anicteric
Respiratory: Clear to Auscultation and Non Labored Respirations
Cardiac: Regular Rhythm and S1/S2; Negative Murmur, Rub or Gallop
GI: Soft, Normal Bowel Sounds, Tender and Distended
Musculoskeletal: No Clubbing, No Cyanosis and No Edema
Skin: Warm, Dry and Normal Turgor; Negative Rash or Jaundice
Neuro: AO x 3 and Nonfocal/Grossly Intact
Psych: Calm
Data Reviewed
-
Labs: Labs Reviewed by me
--- NOTE | 2024-03-22 14:32 | PTCARENOTE ---
Rec'd pt this AM. Pt with nausea, vomitting and severe back pain. Minimal relief with pain and nausea meds. MD team aware. DNR bracelet on pt as ordered. BP remains high, Pt unable to take PO due to severe nausea.
--- NOTE | 2024-03-22 14:34 | PTCARENOTE ---
Pt returned from [facility] after Paracentesis witih 6800ml taken off.
[2024-03-22 15:16] LABS: Body Fluid Mononuclear 68.2 %; Body Fluid Polymorphonuclear 31.8 %; Body Fluid WBC 110 /CUMM
[2024-03-22 15:20] LABS: Body Fluid Second Tech EF
[2024-03-22 15:25] LABS: APTT 73.2 Sec (23.4-35.0)
[2024-03-22] MEDS: TIGAN 200 MG IM (15:27)
[2024-03-22 16:37] LABS: Glucose - Point of Care 147 mg/dl (70-99)
[2024-03-22] MEDS: DURAGESIC 12 MCG/HR PATCH 1 PATCH TRANSDERM (17:38)
[2024-03-22] MEDS: ROCEPHIN 1000 MG IV (17:42)
[2024-03-22] MEDS: STERILE WATER FOR INJECTION 10 ML IV (17:42)
[2024-03-22] MEDS: HEPARIN 25000 UNITS/250 ML IV (17:44)
--- NOTE | 2024-03-22 17:53 | PTCARENOTE ---
Pt refused all PO meds today due to nausea and vomitting.
[2024-03-22] MEDS: TIGAN IM ×2 (18:31→23:38)
[2024-03-22] MEDS: APRESOLINE 100 MG PO (19:30)
[2024-03-22] MEDS: COREG 6.25 MG PO (19:30)
[2024-03-22] MEDS: LIPITOR PO (20:52)
[2024-03-22 21:59] LABS: Glucose - Point of Care 134 mg/dl (70-99)
--- NOTE | 2024-03-22 22:23 | PTCARENOTE ---
Pt agreeable to take a couple bp meds at start of shift but refused the rest at 2200. Treating with IV hydralazine. Will monitor.
--- NOTE | 2024-03-22 22:37 | PTCARENOTE ---
DNR bracelet now on pt ankle. Pt refused to keep it on his arms, states it was bothering him.
[2024-03-22 22:43] LABS: APTT 91.1 Sec (23.4-35.0)
[2024-03-23] VITALS (25 sets, daily range): BP systolic 91–201; BP diastolic 55–108; BMI 19.9
--- NOTE | 2024-03-23 | PTCARENOTE ---
Caring for pt overnight. aaox3, pleasant, flat affect, forgetful at times. c/o 12/28 pain, fentanyl patch on pt, prn dilaudid. zofran given, refused tigan. BP managed with IV hydralazine, pt starting to refuse all PO meds (also made comments about
going back on PO blood thinners) NSR BBB. hep gtt running. Call ineto in reach. will monitor.
[2024-03-23] MEDS: APRESOLINE 10 MG IV ×4 (02:10→18:15)
[2024-03-23] MEDS: DILAUDID 0.5 MG IV ×5 (03:37→20:26)
[2024-03-23] MEDS: MURO 128/ADSORBONAC 5% EYE DROPS 1 DROP OPHTH ×3 (03:37→20:18)
[2024-03-23] MEDS: TIGAN IM (05:16)
[2024-03-23] MEDS: ZOFRAN 4 MG IV ×2 (05:45→20:26)
[2024-03-23 06:10] LABS: APTT 56.9 Sec (23.4-35.0)
[2024-03-23] MEDS: NOVOLOG FLEXPEN-MODERATE RESISTANCE SC ×2 (07:35→19:25)
[2024-03-23] MEDS: PROTONIX PO (07:37)
[2024-03-23] MEDS: APRESOLINE PO (07:37)
[2024-03-23] MEDS: RENVELA PO ×2 (07:37→12:04)
[2024-03-23] MEDS: LIDOCAINE 4% PATCH 1 PATCH TOPICAL (07:38)
--- NOTE | 2024-03-23 07:45 | PTCARENOTE ---
Patient received from coat joiner lockstitch. Patient resting comfortably in bed. AAO, VSS. No events noted over night however patient with vomiting and nausea at start of shift and had already received Zofran. Patient with continued complaints of pain
throughout body but mostly lower back and right shoulder, see MAR. Patient scheduled for HD today at Noon. Call nieto in reach.
[2024-03-23 07:46] LABS: Glucose - Point of Care 145 mg/dl (70-99)
[2024-03-23] MEDS: HEPARIN 25000 UNITS/250 ML IV ×2 (07:48→23:46)
--- NOTE | 2024-03-23 07:49 | W.PN.HOSP.TC ---
Addendum entered and electronically signed by Taran Butt MD 03/23/24 14:49:
I saw and evaluated the patient. I reviewed the resident�s note and agree with findings and plan as documented in the resident�s note except for changes in my documentation
58-year-old male with abdominal pain and distention. He has a history of cirrhosis requiring large-volume paracentesis
EGD-grade 1 esophageal varices. Small hiatal hernia. Portal hypertensive gastropathy. Normal duodenum.
Cardiovascular system S1-S2 appreciated, systolic murmur at aortic area
Chest decreased breath sounds at bases
Abdomen less distended today after paracentesis, mild tenderness with palpation
No pedal edema
# Recurrent nausea. It looks like patient consumed 95% of breakfast today and also had lunch. No vomiting as well as nursing notes. I changed Protonix to IV as he was refusing the dose this morning. Also Tigan ordered he did not ask for any
Zofran today.
# Recurrent ascites
Portal hypertension
Status post paracentesis 03/18/2024-no evidence of current SBP
1 episode of fever. Axillary temperature.
Antibiotics for 7 days for portal hypertensive gastropathy
Follows up with [facility] as outpatient
Complains of nausea and abdominal pain
IR. 6.8 L of paracentesis 03/22/24 and after which his pain is better
Continue fentanyl patch for his pain
# Hypertension-was on clonidine, hydralazine, losartan, nifedipine, Aldactone as outpatient
Aldactone and losartan held secondary to hyperkalemia
Currently on Coreg 6.25 twice daily, nifedipine 60 Mg in a.m., clonidine 0.3 mg patch, hydralazine 100 mg 3 times daily. Patient has been missing many p.o. doses because of his nausea and vomiting and also because of his refusal.
Use as needed IV medicines for high blood pressure. Some of the blood pressure elevation could be secondary to his pain/nausea increase nifedipine and add 30 mg at bedtime
# Paroxysmal atrial fibrillation was on Coumadin as outpatient
Continue Coreg
If patient is going to rehab I would still do DOAC instead of Coumadin as it is easier to manage in his case.
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 Patient has been refusing PPI therefore changed to IV
# Hematemesis with history of grade 1 esophageal varices
Acute blood loss anemia
Status post octreotide drip, PPI drip.
Coumadin was reversed with Kcentra and vitamin K
EGD on 03/19/2024 without any evidence of active variceal bleeding.
Continue PPI and beta-blockers
#Recurrent transudative bilateral pleural effusions: multifactorial (CKD, hypoalbuminemia, Heart Failure)
Right Thoracentesis 09/15/23 -yielding 500 cc of clear matias pleural fluid.Path pending.
R thoracentesis - 1L, cytology negative
L thoracentesis 12/31/22- 1400mL
L thoracentesis -2.05L, straw color, transudative
R thoracentesis - 1.6L, straw color, transudative
L tap at [facility]- 1L (Unclear details)
OP Pulm eval.
# Hyponatremia-to be corrected during dialysis
# Cirrhosis-suspected SEN also H/O former alcohol use
# ESRD on hemodialysis Thursday. Left radial aVF. Metabolic acidosis. Continue sevelamer.
# Diabetes-on insulin lispro as outpatient. Check Accu-Cheks and sliding scale coverage
# Chronic HFpEF-holding MRA, volume control with hemodialysis. Not on SGLT2 inhibitors
# Coronary disease with PCI 2015
# Peripheral artery disease with history of femoropopliteal bypass-continue statin
# Depression-continue sertraline
# Chronic pain from spinal stenosis with history of surgeries with chronic ambulatory dysfunction-opiate dependent
# History of C. difficile
# Migraines was on Aimovig monthly
# History of pericardial effusion with pericardiocentesis at [facility]
# Multiple admissions with noncompliance
# Hypoalbuminemia
# Former alcohol use
# Ex-smoker
# DVT prophylaxis-heparin drip
# Full code
Discussed with nursing
Residents discussed with nephrology
D/W Palliative care
Unfortunately patient has been refusing many medicines. He states that he is nauseous. Nursing is documented that he consumed 95% of his breakfast today 100% of the dinner and 90% of the breakfast yesterday. If nausea improves and blood pressure
is better after he takes his medicines he can be discharged.
Patient needs to work with physical therapy
Part of this note was created using voice recognition system. Occasional wrong word or��sound alike� substitutions may have inadvertently occurred due to the inherent limitations of voice recognition software. If noted kindly bring it to my
attention for correction.
time spent over 50 min
Original Note:
Today's Communication/Plan
-
tigan Im for nausea
continue abx and meds as tolerated
hd today
Assessment / Plan
Assessment / Plan
58 yo man with hx ESRD on HD MWF from [facility](previously T//Sat at [facility]), non compliance with HDs, residual urine output on bumex, CAD, atrial fibrillation on coumadin, IDDM, HTN on Procardia, losartan, clonidine,hydralazine,
Aldactone, HLD on statin, Vascepa, hyperphosphatemia on Renvela, recent new diagnosis of cirrhosis and ascites presented with abdominal discomfort and due for paracentesis, with n/v, and hematemesis
#Recurrent ascites
#H/O SBP
-Previous paracentesis with a SAG >1.1 and other parameters consistent with portal hypertension
-Presented here with recurrent ascites and fevers per axillary temperature initially
-Status post paracentesis on 03/18 6000cc, no signs of SBP; ceftriaxone decreased from 2 g to 1 g daily
-Blood cultures x 2 were obtained earlier, have remained negative but pending final read
-Holding diuretics; no role for resumption as he makes minimal urine from ESRD
-tigan IM for nausea
-palliative care; not ready to consider transition to hospice care.
-Repeat paracentesis 03/22 6.8 L of clear, pale yellow ascitic fluid
-Fentanyl patch for pain
# Hypertension
-Home medications include clonidine, hydralazine, losartan, nifedipine, spironolactone; HD for volume
-Aldactone held due to possible SBP
-Blood pressure has been persistently elevated here
-Was started on carvedilol, nifedipine dose increased to 60 mg with some improvement, losartan restarted
-not taking meds Po b/c of nausea, ordered clonidine 0.3 patch
-Continue clonidine, hydralazine, nifedipine, carvedilol at current doses if tolerated
-Continue with IV hydralazine as needed
-Consider up titrating nifedipine to 90 mg
-bp better controlled today
#Paroxysmal atrial fibrillation
-Home medications include warfarin for AC, INR goal 2�3; not on rate or rhythm controlling agents
-Warfarin held on admission due to concerns for variceal bleed; status post reversal as well as above
-No evidence of rapid ventricular rates here; started on carvedilol as above for esophageal varices
-Warfarin likely poor choice of AC due to his compliance issues; planning transition to eliquis when stable; currently on heparin drip
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
-transition back to oral PPI twice daily likely Dunlap's
-Will need to follow-up outpatient for repeat EGD +/- EUS
#Hematemesis
#H/O grade 1 esophageal varices
-Presented with hematemesis, concern for variceal bleed due to his history, INR 3.01 on warfarin
-Status post octreotide drip, IV PPI drip, warfarin reversal with Kcentra and vitamin K
-EGD performed on 03/19 without any evidence of ongoing variceal bleeding
-Has remained hemodynamically stable, Hgb between 9 and 9.6 over multiple lab draws
-Currently on oral PPI therapy; Started on carvedilol for variceal prophylaxis
-Hematemesis resolved
#Cirrhosis
-Unclear etiology though suspected from SEN versus alcohol versus viral hepatitis
-MELD score unreliable due to hemodialysis requirements, previous treatment with warfarin but likely high
-Complicated by grade 1 varices and ascites as above; unclear if HRS led to his ESRD
#End-stage renal disease
-Unclear etiology, may be related to cirrhosis with hepatorenal syndrome in the past (?) versus diabetes
-Currently on HD every M// though compliance has been an issue; Home meds include sevelamer
-Will continue to monitor BMP daily, dialysis as previously scheduled
- HD today
#Type 2 diabetes with hypoglycemia
-No recent A1c; Home medications include insulin lispro
-Was hypoglycemic initially, likely hepatic dysfunction and issues with liberating glucose
-Standing dose insulin was held, started on sliding scale with Accu-Cheks
-Glucose has been improved and within goal on sliding scale and only
#HFpEF
-Unclear etiology, likely associated with volume overload in the setting of dialysis
-Not currently on SGLT2 inhibitor, is on an MRA for his cirrhosis with ascites
#CAD status post PCI (2015)
#PAD s/p femoropopliteal bypass
-Home medications include high intensity statin; not currently on any antiplatelet agents though is on warfarin as above
-No signs or symptoms of coronary ischemia nor limb ischemia during this hospitalization
#Chronic pain due to spinal stenosis
-Chronic ambulatory dysfunction
-Continue dilaudid with caution for oversedation.
-Physical therapy assessment once stable.
- Stage 1 sacrum pressure injury, POA
- Stage 1 bilateral heels pressure injury, POA
DVT prophylaxis: Heparin drip
Diet: Renal diet
CODE STATUS: Full code
Anticipated Discharge: 24 - 48 hours
Subjective/Interval History
-
Date of Service: March 23, 2024
continues to have nausea/vomiting
Objective Data
-
Labs:
Laboratory Results
03/22/24 03/23/24 03/23/24
22:18 05:42 07:02
WBC Pending
Hgb Pending
Hct Pending
Plt Count Pending
APTT 91.1 H 56.9 H
Sodium Pending
Potassium Pending
Chloride Pending
Carbon Dioxide Pending
BUN Pending
Creatinine Pending
Glucose Pending
Calcium Pending
Total Bilirubin Pending
AST Pending
ALT Pending
Alkaline Phosphatase Pending
03/23/24
12:30
WBC
Hgb
Hct
Plt Count
APTT Pending
Sodium
Potassium
Chloride
Carbon Dioxide
BUN
Creatinine
Glucose
Calcium
Total Bilirubin
AST
ALT
Alkaline Phosphatase
Vital Signs:
Vital Signs
Temp Pulse Resp BP Pulse Ox
98.0 F 80 10 183/85 99
03/23/24 03:42 03/23/24 06:25 03/23/24 06:00 03/23/24 06:25 03/22/24 22:00
I&O
03/22/24 03/23/24 03/24/24
06:59 06:59 06:59
Intake Total 660 / 660
Output Total 50 / 50
Balance -50 / -50 660 / 660
Review of Systems
-
History Source: Patient
Abdomen/GI: Reports Abdominal Pain, Nausea and Vomiting
Musculoskeletal: Reports Other (Lower back pain)
Physical Exam
-
General: Well Developed, No Apparent Distress, Pain and Appears Chronically Ill
HEENT: Normocephalic, Atraumatic, Moist Mucous Membranes and Anicteric
Respiratory: Clear to Auscultation and Non Labored Respirations
Cardiac: Regular Rhythm and S1/S2; Negative Murmur, Rub or Gallop
GI: Soft, Normal Bowel Sounds, Tender and Distended
Musculoskeletal: No Clubbing, No Cyanosis and No Edema
Skin: Warm, Dry and Normal Turgor; Negative Rash or Jaundice
Neuro: AO x 3 and Nonfocal/Grossly Intact
Psych: Calm
Data Reviewed
-
Labs: Labs Reviewed by me, Discussed with Physician and Discussed with Patient
--- NOTE | 2024-03-23 08:11 | PTCARENOTE ---
Patient refusing AM P.O. medications at this time due to nausea and just having a vomiting episode. Had just received Zofran at 0545. Will attempt to give later if nausea resolves. Resident aware.
[2024-03-23 08:29] LABS: % Basophils 1.2 % (0-2); % Eosinophils 8.3 % (0-6); % Immature Granulocytes 0.3 % (0-0.5); % Lymphocytes 13.1 % (20.5-51.1); % Monocytes 9.8 % (1.7-9.3); % Neutrophils 67.3 % (42.2-75.2); Absolute Basophils 0.1 10^3/uL (0-0.2); Absolute Eosinophils 0.7 10^3/uL (0-0.7); Absolute Lymphocytes 1.2 10^3/uL (1.2-3.4); Absolute Monocytes 0.9 10^3/uL (0.1-0.6); Hematocrit 33.1 % (39.0-52.0); Hemoglobin 10.7 g/dL (13.0-18.0); Mean Corp Hgb Conc. 32.3 g/dL (33.0-37.0); Mean Corpuscular Volume 92.7 fL (80.0-94.0); Mean Platelet Volume 9.6 fL (7.4-10.4); Nucleated Red Blood Cells % 0 % (-); Platelet Count 341 10^3/uL (130-400); Red Blood Cell Count 3.57 10^6/uL (4.70-6.10); Red Cell Dist. Width 14.9 % (11.5-14.5); White Blood Cell Count 8.9 10^3/uL (4.8-10.8)
--- NOTE | 2024-03-23 10:06 | PTOTSP ---
Chart reviewed and spoke with RN. Patient is currently experiencing high levels of pain and refusing PO medication.
Discussed with RN; discharging patient from caseload at this time secondary to multiple holds.
When patient is appropriate/receptive to participate please reconsult PT.
[2024-03-23] MEDS: CATAPRES 0.1 MG PO (12:05)
[2024-03-23] MEDS: COREG 6.25 MG PO ×2 (12:06→20:16)
[2024-03-23] MEDS: PROCARDIA XL (EXTENDED RELEASE) 60 MG PO (12:06)
[2024-03-23 12:11] LABS: Glucose - Point of Care 184 mg/dl (70-99)
[2024-03-23] MEDS: MURO 128/ADSORBONAC 5% EYE DROPS OPHTH ×3 (12:11→23:36)
[2024-03-23] MEDS: NOVOLOG FLEXPEN-MODERATE RESISTANCE 1 UNITS SC (12:12)
--- NOTE | 2024-03-23 13:57 | W.PN.NEPH.HD ---
Assessment
-
Patient seen on dialysis
Systolic blood pressure around 190 at current UF
Patient had paracentesis yesterday for 6800 cc
I cannot control his blood pressure
He refuses palliative care
I am not sure what else we can offer him
Progress Note - Hemodialysis
-
Date of Service: March 23, 2024
Duration: 30 minutes and 3 hours
Potassium Bath: 2
Calcium Bath: 2.5
Opti-Dialyzer: 160
Ultrafiltration: Other (2kg)
Blood Flow: 400
Dialysate Flow: 600
Heparin: none
EPO: none
--- NOTE | 2024-03-23 14:12 | W.PN.PAL2 ---
Today's Communication
-
Patient seen for follow up
Patient was eating lunch. reports he still has nasuea symptoms. Blood pressure elevated at this time, unable to take more bp meds at present as going to dialysis soon.
Patient affirms goals of going to facility that provides dialysis.
pain controlled with dialudid.
Code status DNR
Total time 25 min on floor
Assessment / Plan
-
Assessment/Plan:
Goals are treatment oriented at this time.
DNR
Objective Data
-
Objective Data:
Vital Signs
Temp Pulse Resp BP Pulse Ox
97.5 F 80 10 201/99 99
03/23/24 07:35 03/23/24 12:05 03/23/24 06:00 03/23/24 12:05 03/22/24 22:00
Laboratory Results
03/23/24 08:01
PT 14.2 Sec (11.4-14.6) 03/22/24 06:15
INR 1.07 03/22/24 06:15
APTT 56.9 Sec (23.4-35.0) H 03/23/24 05:42
Ammonia < 9 umol/L (9-30) L 03/16/24 12:26
Total Protein Cancelled 03/23/24 08:01
Albumin Cancelled 03/23/24 08:01
Urine Color Yellow 03/18/24 17:47
Urine Clarity Slightly cloudy (Clear) 03/18/24 17:47
Urine pH 7.0 (5.0-9.0) 03/18/24 17:47
Ur Specific [place] 1.010 (<1.030) 03/18/24 17:47
Urine Ketones Negative (Negative) 03/18/24 17:47
Urine Bilirubin 1+ (Negative) A 03/18/24 17:47
Palliative Performance Scale
Palliative Performance Scale:
PPS Level Ambulation Activity & Evidence of Disease Self Care Intake Conscious Level
100% Full Normal Activity & Work; Full Intake Full
No Evidence of Disease
90% Full Normal Activity & Work; Full Normal Full
Some Evidence of Disease
80% Full Normal Activity with Effort Full Normal or Full
Some Evidence of Disease Reduced
70% Reduced Unable Normal Job/Work Full Normal or Full
Significant Disease Reduced
60% Reduced Unable Hobby/Housework Occasional Normal or Full or Confusion
Significant Disease Assistance Reduced
50% Mainly Sit/Lie Unable to do Any Work Considerable Normal or Full or Confusion
Extensive Disease Assistance Req'd Reduced
40% Mainly in Bed Unable to do Most Activity Mainly Assistance Normal or Full or Drowsy;
Extensive Disease Reduced +/- Confusion
30% Totally Bed Unable to do Any Activity Total Care Normal or Full or Drowsy;
Bound Extensive Disease Reduced +/- Confusion
20% Totally Bed Bound Unable to do Any Activity Total Care Minimal to Full or Drowsy;
Extensive Disease Sips +/- Confusion
10% Totally Bed Bound Unable to do Any Activity Total Care Mouth Care Drowsy or Coma;
Extensive Disease Only +/- Confusion
0%
PPS Score Level:
Palliative Performance Score Response
Palliative Performance Score Response: 40%
Physical Exam
-
General: No Apparent Distress
Neuro: Awake, Alert and Oriented
Psych: Calm
[2024-03-23 14:17] LABS: ALT (SGPT) < 10 U/L (0-50); AST (SGOT) 15 U/L (17-59); Albumin 2.3 g/dl (3.5-5.0); Alkaline Phosphatase 102 U/L (38-126); Blood Urea Nitrogen 34 mg/dl (9-20); Calcium 8.1 mg/dl (8.4-10.2); Carbon Dioxide 26 mmol/L (22-30); Chloride 96 mmol/L (98-107); Estimated Creatinine Clearance 11 ml/min; Glucose 213 mg/dl (70-99); Potassium 5.3 mmol/L (3.5-5.1); Sodium 132 mmol/L (135-145); Total Bilirubin 0.2 mg/dl (0.2-1.3); Total Protein 5.7 g/dl (6.3-8.2); eGFR 9.35
[2024-03-23 14:43] LABS: APTT 59.7 Sec (23.4-35.0)
--- NOTE | 2024-03-23 14:56 | W.PN.UPDATE ---
Update Note
Progress Note Update
Nephrology has been managing antihypertensives also.
reviewed with sister re many meds are charted as held as he is refusing.
Per discussion with nursing they try and educate and reiterate the importance of taking the medicines however states that they cannot force the patient.
I have also made the patient aware about the importance of taking medicines . We changed certain medicines to patches and IV
Also PT/OT sessions declined. (next sessions- therapy not warranted Placed another consult.)
Sister says he told her something else and this is Conflicting.
She requested a transfer of service to another attending.
has kindly accepted pt to her service.
Will also request Psyche evaluation because of his refusal
[2024-03-23] MEDS: NSS (PRESERVATIVE FREE) 10 ML IV ×2 (15:31→20:16)
[2024-03-23] MEDS: PROTONIX IV 40 MG IV ×2 (15:31→20:19)
[2024-03-23] MEDS: COLACE 100 MG PO (15:32)
[2024-03-23] MEDS: SENOKOT 8.6 MG PO (15:32)
--- NOTE | 2024-03-23 16:37 | CM ---
Addendum entered by Nuria Bryant RN 03/23/24 16:59:
Discussed with nurse Dennis, need to coordinate PT/OT tomorrow with pain meds to see if he can participate with therapy. Per nurse patient receiving IV Dilaudid Q4h today.
Addendum entered by Nuria Bryant RN 03/23/24 16:53:
Noting Palliative Care Consult/notes.
Original Note:
Patient from [facility] SN[facility] with Hx ESRD on HD. Room air. Receiving Heparin gtt, IV Abx, IV Zofran prn. PT/OT 03/19 recommend skilled rehab.
Messages with Dr Butt; patient may be ready for d/c tomorrow. Informed her that patient hasn't been able to work with PT/OT today.
Message to Elizabeth PT, Olya OT and Zoraida Hair, PT Lead requesting updated PT/OT Evals.
Plan insurance auth for SNF rehab once current PT/OT Evals are available.
[2024-03-23] MEDS: APRESOLINE 100 MG PO ×2 (18:06→22:49)
[2024-03-23] MEDS: STERILE WATER FOR INJECTION 10 ML IV (18:09)
[2024-03-23] MEDS: ROCEPHIN 1000 MG IV (18:09)
[2024-03-23] MEDS: RENVELA 1600 MG PO (18:10)
[2024-03-23 18:20] LABS: Glucose - Point of Care 139 mg/dl (70-99)
--- NOTE | 2024-03-23 19:43 | PTCARENOTE ---
Went assess patients Fentanyl patch, discovered it was not in the same location as it was this AM. Original place was Left Upper Arm. Fentanyl patch was found on the floor and wasted in Pyxis with night stocker RN as witness.
[2024-03-23] MEDS: PROCARDIA XL (EXTENDED RELEASE) 30 MG PO (20:15)
[2024-03-23 21:02] LABS: Glucose - Point of Care 213 mg/dl (70-99)
[2024-03-23 21:07] LABS: APTT 166.6 Sec (23.4-35.0)
[2024-03-23] MEDS: LIPITOR PO (22:40)
[2024-03-24] VITALS (12 sets, daily range): BP systolic 94–163; BP diastolic 70–139; PULSE 92; O2SAT 95; BMI 19.7
[2024-03-24] MEDS: DILAUDID 0.5 MG IV ×5 (00:36→21:28)
--- NOTE | 2024-03-24 00:56 | PTCARENOTE ---
Pt with frequent c/o severe back pain. Medicated per JUN with PRN diluadid. Continues with persistent nausea and small amounts of emesis with frequent dry heaving. PRN zofran given per JUN. Pt transported for abd XR and back without complication.
heparin gtt remains in place, titrated per protocol, see worklist documentation. Call nieto within reach. Pt ringing appropriately.
[2024-03-24] MEDS: ZOFRAN 4 MG IV (02:27)
[2024-03-24] MEDS: MURO 128/ADSORBONAC 5% EYE DROPS OPHTH ×5 (03:55→19:57)
[2024-03-24 05:31] LABS: Hematocrit 36.1 % (39.0-52.0); Hemoglobin 11.2 g/dL (13.0-18.0); Mean Corpuscular Hgb 29.4 pg (27.0-31.0); Mean Corpuscular Volume 94.8 fL (80.0-94.0); Mean Platelet Volume 9.1 fL (7.4-10.4); Platelet Count 277 10^3/uL (130-400); Red Blood Cell Count 3.81 10^6/uL (4.70-6.10); Red Cell Dist. Width 15.1 % (11.5-14.5); White Blood Cell Count 9.1 10^3/uL (4.8-10.8)
[2024-03-24 05:37] LABS: APTT 100.4 Sec (23.4-35.0)
[2024-03-24 05:52] LABS: ALT (SGPT) < 10 U/L (0-50); AST (SGOT) 16 U/L (17-59); Albumin 2.4 g/dl (3.5-5.0); Alkaline Phosphatase 110 U/L (38-126); Blood Urea Nitrogen 20 mg/dl (9-20); Carbon Dioxide 30 mmol/L (22-30); Chloride 98 mmol/L (98-107); Estimated Creatinine Clearance 18 ml/min; Glucose 131 mg/dl (70-99); Potassium 4.4 mmol/L (3.5-5.1); Sodium 134 mmol/L (135-145); Total Bilirubin 0.2 mg/dl (0.2-1.3); Total Protein 5.7 g/dl (6.3-8.2); eGFR 16.43
[2024-03-24] MEDS: NSS (PRESERVATIVE FREE) 10 ML IV ×2 (07:43→21:19)
[2024-03-24] MEDS: PROTONIX IV 40 MG IV ×2 (07:43→21:20)
[2024-03-24] MEDS: LIDOCAINE 4% PATCH 1 PATCH TOPICAL (07:44)
[2024-03-24] MEDS: NOVOLOG FLEXPEN-MODERATE RESISTANCE SC ×2 (08:19→13:18)
[2024-03-24 08:29] LABS: Glucose - Point of Care 136 mg/dl (70-99)
--- NOTE | 2024-03-24 09:00 | PTCARENOTE ---
Patient received from scene shifter. Patient resting comfortably in bed. AAO but more drowsy than yesterday, VSS. No events noted over night however patient again with vomiting and nausea at start of shift and not readily due for Zofran. Patient
with continued complaints of pain throughout body, see MAR. AM meds refused due to still feel nauseous. PT/OT to see patient today and explained that they he needs to at least have them assess. Patient scheduled for HD tomorrow. Call nieto in
reach.
[2024-03-24] MEDS: RENVELA PO ×3 (09:04→15:36)
[2024-03-24] MEDS: APRESOLINE PO (09:05)
[2024-03-24] MEDS: PROCARDIA XL (EXTENDED RELEASE) PO ×2 (09:05→21:11)
[2024-03-24] MEDS: COREG PO (09:05)
--- NOTE | 2024-03-24 09:30 | W.PN.UPDATE ---
Update Note
Progress Note Update
pt fired me since he would not let me examine him. Wants a different doctor.
--- NOTE | 2024-03-24 09:53 | CM ---
Patient seen at bedside with physician. Patient stated to CM ' Im not going anywhere'. Patient declined physician examination and requested different physician. CM will follow for discharge planning needs.
Plan; uncertain at this time.
--- NOTE | 2024-03-24 10:25 | PTCARENOTE ---
Patient with decent amount of vomiting this AM. Hospitalist at bedside, IV Phenergan ordered. Call nieto in reach.
[2024-03-24] MEDS: PHENERGAN 50.25 MG IV (10:26)
--- NOTE | 2024-03-24 11:23 | W.PN.NEPH.PH ---
Today's Communication / Plan
-
Dialysis tommorrow
Assessment/Plan
-
Impression:
coffee-ground emesis -GIB /portal gastropathy/
Recent hospitalization with life-threatening gastrointestinal hemorrhage
Accelerated hypertension secondary to volume overload.
Recurrent ascites
hypoglycemia
Coumadin Coagulopathy
Hyperkalemia
Metabolic Acidosis
ESRD on hemodialysis at [facility], previously TTS [facility]
Anemia of ESRD
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
Paroxysmal Atrial Fibrillation
Chronic HFpEF
History of bilateral pleural effusions status post thoracentesis
History of pericardial effusion status post pericardiocentesis
Coronary artery disease
Essential hypertension
DM2 with multiple microvascular complications
Hyperlipidemia
Spinal stenosis
Anxiety/depression
L radial AVF
Plan:
Dialysis tomorrow
A/w hematemesis from NH
BP high but dramatically improves when he actually takes his medications
c/o back pian acute on chr receiving Dilaudid
added coreg for portal gastropathy
clonidine changed to patch , procardia increased dose, resume Losartan if needed
abx per primary
He has multiple admits recently mainly for decompensated liver disease, non adherence to HD suggest over all prison prognosis is poor
changed to DNR
-
-
Date of Service: March 24, 2024
CC / HPI / ROS
-
Chief Complaint:
ESRD
History of Present Illness:
hb up at 11.7
BP high unable to take meds with n/v
k at 5.1
ESRD Thursday
Review of Systems:
Has ongoing vomiting issues
c/o abd pain and back pain
No fevers
Labs
-
Labs:
WBC 9.1 10^3/uL (4.8-10.8) 03/24/24 05:04
RBC 3.81 10^6/uL (4.70-6.10) L 03/24/24 05:04
Hgb 11.2 g/dL (13.0-18.0) L 03/24/24 05:04
Hct 36.1 % (39.0-52.0) L 03/24/24 05:04
Plt Count 277 10^3/uL (130-400) 03/24/24 05:04
Sodium 134 mmol/L (135-145) L 03/24/24 05:04
Potassium 4.4 mmol/L (3.5-5.1) 03/24/24 05:04
Chloride 98 mmol/L (98-107) 03/24/24 05:04
Carbon Dioxide 30 mmol/L (22-30) 03/24/24 05:04
BUN 20 mg/dl (9-20) 03/24/24 05:04
Creatinine 4.0 mg/dL (0.7-1.3) H 03/24/24 05:04
eGFR 16.43 03/24/24 05:04
Glucose 131 mg/dl (70-99) H 03/24/24 05:04
Calcium 8.0 mg/dl (8.4-10.2) L 03/24/24 05:04
Albumin 2.4 g/dl (3.5-5.0) L 03/24/24 05:04
Physical Exam
-
Vital Signs:
Vital Signs
Temp Pulse Resp BP Pulse Ox
97.9 F 93 13 141/72 95
03/24/24 07:30 03/24/24 06:24 03/24/24 06:24 03/24/24 06:24 03/24/24 10:06
Cardiovascular:: Regular rate and rhythm
Respiratory:: Bilateral: CTA (decreased)
Lung Excursion:: Abnormal
Abdomen:: Distended, Soft and Tender (gen TTP)
Extremity Edema:: None: Bilateral: (trace)
Alfred Catheter: No
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
--- NOTE | 2024-03-24 12:04 | W.PN.PAL2 ---
Today's Communication
-
Met with patient briefly. chart reviewed, patient had been refusing therapy and other interventions last few days. Refused to be examined by attending physician yesterday. Today does appear uncomfortable, vomited large amount. reports feeling
fatigued. asked him if he was refusing therapy because he did not want to have further treatment, comfort care was an option. he denied. he understood that transitioning to comfort care meant stopping dialysis, which would result in him dying. he is
not interested in that. I reinforced then that he needs to participate in the interventions prescribed by the hospital doctors.
Goals remaint treatment oriented.
agree psychiatry consult for depression
Total floor time discussion with patient, rn, review of chart, 26 min
Objective Data
-
Objective Data:
Vital Signs
Temp Pulse Resp BP Pulse Ox
97.9 F 93 13 141/72 95
03/24/24 07:30 03/24/24 06:24 03/24/24 06:24 03/24/24 06:24 03/24/24 10:06
Laboratory Results
03/24/24 05:04
03/24/24 05:04
PT 14.2 Sec (11.4-14.6) 03/22/24 06:15
INR 1.07 03/22/24 06:15
APTT 100.4 Sec (23.4-35.0) H 03/24/24 05:04
Ammonia < 9 umol/L (9-30) L 03/16/24 12:26
Total Protein 5.7 g/dl (6.3-8.2) L 03/24/24 05:04
Albumin 2.4 g/dl (3.5-5.0) L 03/24/24 05:04
Urine Color Yellow 03/18/24 17:47
Urine Clarity Slightly cloudy (Clear) 03/18/24 17:47
Urine pH 7.0 (5.0-9.0) 03/18/24 17:47
Ur Specific [place] 1.010 (<1.030) 03/18/24 17:47
Urine Ketones Negative (Negative) 03/18/24 17:47
Urine Bilirubin 1+ (Negative) A 03/18/24 17:47
Palliative Performance Scale
Palliative Performance Scale:
PPS Level Ambulation Activity & Evidence of Disease Self Care Intake Conscious Level
100% Full Normal Activity & Work; Full Intake Full
No Evidence of Disease
90% Full Normal Activity & Work; Full Normal Full
Some Evidence of Disease
80% Full Normal Activity with Effort Full Normal or Full
Some Evidence of Disease Reduced
70% Reduced Unable Normal Job/Work Full Normal or Full
Significant Disease Reduced
60% Reduced Unable Hobby/Housework Occasional Normal or Full or Confusion
Significant Disease Assistance Reduced
50% Mainly Sit/Lie Unable to do Any Work Considerable Normal or Full or Confusion
Extensive Disease Assistance Req'd Reduced
40% Mainly in Bed Unable to do Most Activity Mainly Assistance Normal or Full or Drowsy;
Extensive Disease Reduced +/- Confusion
30% Totally Bed Unable to do Any Activity Total Care Normal or Full or Drowsy;
Bound Extensive Disease Reduced +/- Confusion
20% Totally Bed Bound Unable to do Any Activity Total Care Minimal to Full or Drowsy;
Extensive Disease Sips +/- Confusion
10% Totally Bed Bound Unable to do Any Activity Total Care Mouth Care Drowsy or Coma;
Extensive Disease Only +/- Confusion
0%
PPS Score Level:
[2024-03-24 12:57] LABS: Glucose - Point of Care 133 mg/dl (70-99)
[2024-03-24 13:14] LABS: APTT 51.5 Sec (23.4-35.0)
[2024-03-24] MEDS: NSS 1000 IV (14:34)
--- NOTE | 2024-03-24 14:57 | CON.GS ---
Consultation
-
Date/Time Consultation Requested: 03/24/2024 2 PM
Date/Time Consultation Performed: 03/24/2024 3 PM
Requesting Provider: Hospitalist
Performing Provider: Dr. Smith
Reason for Consultation: SBO versus ileus
Medical History
-
Chief Complaint: Abdominal pain, nausea vomiting
History of Present Illness:
This is a 58-year-old male who presented to our hospital on 03/15/2024 for abdominal pain and coffee-ground emesis in the setting of a complex medical history including ESRD on IHD MWF via LUE AVF, A-fib on Coumadin, CAD, HPpEF, DM, EtOH cirrhosis
with chronic ascites as well as recent COVID infection. He underwent an upper endoscopy on 03/19/2024 and was noted to have grade 1 EV's, severe portal hypertensive gastropathy and friable mucosa but no active bleeding. He has been maintained on
ceftriaxone presumably for SBP? He has been eating fairly well but over the past few days has had nonbloody, nonbilious emesis and an x-ray demonstrated a dilated stomach for which general surgery was consulted. The patient denies Fever, Chest
Pain, Shortness Of Breath, active nausea, Vomiting, currently. Changes in urinary and bowel habits, unintentional weight loss, jaundice, icterus, acolic stools.
Past Medical History
Past Medical History: Other (See HPI)
Past Surgical History: None
Social History
Tobacco: Non-Smoker
Alcohol: Former
Drug: None
Personal:
Living: Alone
Employment: Disabled
Family History
Family History: Reviewed & Not Pertinent
Allergies / Home Medications
Allergy/AdvReac Type Severity Reaction Status Date / Time
No Known Allergies Allergy Verified 03/15/24 23:25
�Medication �Instructions �Recorded �Confirmed �Type
atorvastatin 80 mg tablet 80 mg PO HS High Cholesterol 12/23/22 03/15/24 History
lidocaine-prilocaine 2.5 %-2.5 % 1 applic topical TUTHSA PRN port 12/23/22 03/15/24 History
topical cream access
losartan 100 mg tablet 100 mg PO DAILY Blood Pressure 07/29/23 03/15/24 History
sertraline 100 mg tablet 100 mg PO DAILY Mental Health 07/29/23 03/15/24 History
vitamin B complex-vitamin C 100 1 tab PO DAILY Supplement 07/29/23 03/15/24 History
mg-folic acid 1 mg tablet
(Dialyvite)
clonidine HCl 0.2 mg tablet 0.2 mg PO TID Blood pressure 10/29/23 03/15/24 History
hydralazine 100 mg tablet 100 mg PO TID Blood Pressure 10/29/23 03/15/24 History
acetaminophen 500 mg tablet 500 mg PO Q6HPRN PRN mild pain #0 01/22/24 03/15/24 Rx
(Tylenol Extra Strength) tabs
insulin lispro 100 unit/mL 4 unit (0.04 mL) SC AC Diabetes #0 02/17/24 03/15/24 Rx
subcutaneous pen mL
oxycodone 5 mg tablet 5 mg PO Q4HPRN PRN severe pain #4 02/24/24 03/15/24 Rx
tabs
warfarin 3 mg tablet 3 mg PO DAILY Blood Clot 02/24/24 03/15/24 Rx
Prevention/Tx #0 tabs
nifedipine 30 mg tablet,extended 30 mg PO DAILY Blood Pressure 03/17/24 03/15/24 History
release
pantoprazole 40 mg tablet,delayed 40 mg PO BID Gastrointestinal Issue 03/17/24 03/15/24 History
release
sevelamer carbonate 800 mg tablet 1,600 mg PO MEALS Kidney Disease 03/17/24 03/15/24 History
spironolactone 25 mg tablet 25 mg PO DAILY Liver Issues 03/17/24 03/15/24 History
Review of Systems
-
All other systems: Negative unless noted
A 10 point review of systems was completed, and was negative except as per HPI.
Physical Exam
Vital Signs
Temp Pulse Resp BP Pulse Ox
97.3 F 93 13 141/72 95
03/24/24 11:30 03/24/24 06:24 03/24/24 06:24 03/24/24 06:24 03/24/24 10:06
03/23/24 03/24/24 03/25/24
06:59 06:59 06:59
Actual Weight 64.7 kg 63.9 kg
Body Mass Index (BMI) 19.7
Lab Results
03/24/24 05:04
03/24/24 05:04
WBC 9.1 10^3/uL (4.8-10.8) 03/24/24 05:04
Hgb 11.2 g/dL (13.0-18.0) L 03/24/24 05:04
Hct 36.1 % (39.0-52.0) L 03/24/24 05:04
Plt Count 277 10^3/uL (130-400) 03/24/24 05:04
Abs Immat Gran (auto) 0.0 10^3/uL (0-0.05) 03/23/24 08:01
Neutrophils % 67.3 % (42.2-75.2) 03/23/24 08:01
Physical Exam
General: Well Developed
Respiratory: Non Labored Respirations
GI: Soft, Tender (Mildly) and Distended (With positive fluid wave)
Data Reviewed
-
Radiology: Image Personally Visualized and interpreted, Report Reviewed by me and Discussed with Physician
CT Scan: Image Personally Visualized and interpreted, Report Reviewed by me, Discussed with Physician and Discussed with Patient
Total Time Spent with Patient (in minutes): 30
Assessment / Plan
-
This is a 58-year-old male with a complex medical history including cirrhosis, esophageal varices here originally for abdominal pain and hematemesis that was managed nonoperatively. He has now had some nonbloody, nonbilious emesis for the past few
days with a dilated stomach concerning for ileus versus GOO (which I highly doubt given his recent upper endoscopy findings).
Ileus in the setting of chronic disease and significant ascites (he has had over 12 L removed over the course of 2 sessions this admission alone) seems the most likely culprit.
Can forego an NG tube for now, stick with clears until the patient has more robust bowel function.
Out of bed and ambulate as able.
Chewing gum has been shown to also decrease the duration of ileus.
General surgery will continue to follow
[2024-03-24] MEDS: HEPARIN 25000 UNITS/250 ML IV (15:24)
--- NOTE | 2024-03-24 15:25 | W.PN.HOSP.TC ---
Today's Communication/Plan
-
NPO, NGT, IVF
Assessment / Plan
Assessment / Plan
Physical exam:
General: Acutely ill and in acute distress
HEENT: Normocephalic, Atraumatic and dry mucous Membranes
Respiratory: Decreased breath sounds in the bases. Clear to Auscultation; Negative Wheezes, Rales or Rhonchi
Cardiac: Regular Rhythm and S1/S2
GI: Soft,Tender and Distended, bowel sounds hypoactive.
Musculoskeletal: No Clubbing, No Cyanosis and bilateral lower extremity edema
Neuro: Awake, Alert and Oriented
Psych: Calm
A/P:
Persistent nausea and vomiting, concerns for Small Bowel Obstruction versus Ileus versus Gastric Outlet Obstruction:
He has been vomiting actively by the time of my evaluation.
Change to n.p.o.
IV fluids (discussed with nephrology and they are okay with IV fluid for maintenance)
Planning for NG tube if worsening
Seen and reviewed x-ray from last evening
Repeat x-ray of the abdomen in a.m.
Surgery consult-discussed with surgery via [place] text today
Antiemetics as needed
Recurrent ascites:
Multiple abdominal paracentesis
Last paracentesis on 03/22 no evidence of SBP (over 6 L). Negative culture from abdominal paracentesis fluid on 03/18 as well.
Latest blood cultures no growth from 03/17
Presentation with hematemesis during this admission/recent life-threatening GI bleed in the setting of warfarin use on end January-beginning February 2024 but tolerated warfarin prior to his recent discharge:
GI has been on consult
Last upper endoscopy on 03/19 shows grade 1 esophageal varices with severe portal hypertensive gastropathy and friable mucosa and small hiatal hernia but no active bleed.
Given octreotide, Protonix, Kcentra in the ED upon admission
Currently on Protonix 40 mg IV twice a day
Also on Coreg
Fever:
Afebrile currently
He has been placed on IV ceftriaxone for possible SBP and possible prophylaxis in the setting of cirrhotic GI bleed
Blood cultures no growth
Doubt we need to continue antibiotics long course-will only do a course of 7 days. Will stop abx in am
Paroxysmal atrial fibrillation:
On rate control, beta-blockers
On anticoagulation, Heparin drip--> as far as I can tell there was an attempt to switch to DOAC but patient would not afford. If we have him back on long-term anticoagulation, he is at risk of recurrence of bleeding.
Hypertension:
Continue current antihypertensive regimen
His blood pressure can go very high if he does not take his multiple agents so monitor closely
End-stage renal disease on hemodialysis:
Hemodialysis per nephrology-plan for HD in a.m.
Depression:
Discussed with psychiatry today-they will reevaluate once medically more stable
Chronic diastolic congestive heart failure
CAD
Cirrhosis
Alcohol use disorder
PVD
Diabetes mellitus
Chronic pain syndrome with spinal stenosis and multiple surgeries chronic opioid dependence
History of C. difficile in the past
History of migraine
History of pleural effusions
History of pericardial effusion
Former alcohol use disorder and ex-smoker
Hyponatremia
Dunlap's esophagus
Hypoalbuminemia
Stage I pressure injury in the sacrum and heels, POA
Noncompliance
DVT prophylaxis:
Already on heparin drip
CODE STATUS:
DNR
Total time spent on today's encounter was 52 minutes which included time spent in counseling the patient/family regarding diagnosis and treatment plan as listed above, goals of care, and symptom management. Case was discussed with nursing staff,
specialists, and care coordinators/case management. All labs and imaging personally reviewed by me. Remainder the time spent in detailed review of previous records, lab data, imaging, and other medical provider documentation.
Post note:
Patient has been refusing some care and 2 physicians of my group fired. Lead physician has seen him during this hospital stay and another physician from the other week. Transfer care today to myself on 03/24. He is medically very ill today so we
will treat him symptomatically and will readdress goals of care down the road when he feels better. Prognosis guarded.
Anticipated Discharge: > 48 hours
Subjective/Interval History
-
Date of Service: March 24, 2024
Patient actively vomiting by the time of my evaluation, he does not feel well. He does have abdominal discomfort. Afebrile
Objective Data
-
Labs:
Laboratory Results
03/24/24 03/24/24
05:04 12:35
WBC 9.1
Hgb 11.2 L
Hct 36.1 L
Plt Count 277
APTT 100.4 H 51.5 H
Sodium 134 L
Potassium 4.4
Chloride 98
Carbon Dioxide 30
BUN 20
Creatinine 4.0 H
Glucose 131 H
Calcium 8.0 L
Total Bilirubin 0.2
AST 16 L
ALT < 10
Alkaline Phosphatase 110
Vital Signs:
Vital Signs
Temp Pulse Resp BP Pulse Ox
97.3 F 93 13 141/72 95
03/24/24 11:30 03/24/24 06:24 03/24/24 06:24 03/24/24 06:24 03/24/24 10:06
I&O
03/23/24 03/24/24 03/25/24
06:59 06:59 06:59
Intake Total 660 / 660 700 / 700
Balance 660 / 660 700 / 700
[2024-03-24] MEDS: APRESOLINE 100 MG PO ×2 (15:36→23:20)
[2024-03-24 16:58] LABS: Glucose - Point of Care 93 mg/dl (70-99)
[2024-03-24] MEDS: STERILE WATER FOR INJECTION 10 ML IV (17:50)
[2024-03-24] MEDS: ROCEPHIN 1000 MG IV (17:50)
--- NOTE | 2024-03-24 18:25 | PTCARENOTE ---
Report called to Freda RIVERA, 2N.
--- NOTE | 2024-03-24 18:45 | PTCARENOTE ---
Received patient from IMU into room 2124. IVF and hep gtt infusing through [facility]. Tele applied - NSR. Patient AAOx3, states no concerns at this time.
[2024-03-24] MEDS: COREG 6.25 MG PO (21:11)
[2024-03-24] MEDS: PROCARDIA XL (EXTENDED RELEASE) 30 MG PO (21:26)
[2024-03-24 21:58] LABS: APTT 146.4 Sec (23.4-35.0)
[2024-03-24] MEDS: LIPITOR 80 MG PO (23:23)
[2024-03-24 23:44] LABS: Glucose - Point of Care 83 mg/dl (70-99)
[2024-03-25] MEDS: MURO 128/ADSORBONAC 5% EYE DROPS OPHTH ×3 (01:49→12:00)
[2024-03-25] MEDS: DILAUDID 0.5 MG IV ×5 (01:50→20:48)
[2024-03-25 03:18] VITALS: BP 129/71
[2024-03-25 06:00] VITALS: BMI 19.7
[2024-03-25 06:03] LABS: Glucose - Point of Care 73 mg/dl (70-99)
[2024-03-25] MEDS: MURO 128/ADSORBONAC 5% EYE DROPS 1 DROP OPHTH ×5 (06:05→23:11)
[2024-03-25 06:30] LABS: % Basophils 1.1 % (0-2); % Eosinophils 5.1 % (0-6); % Immature Granulocytes 0.3 % (0-0.5); % Lymphocytes 12.9 % (20.5-51.1); % Monocytes 7.8 % (1.7-9.3); % Neutrophils 72.8 % (42.2-75.2); Absolute Basophils 0.1 10^3/uL (0-0.2); Absolute Eosinophils 0.5 10^3/uL (0-0.7); Absolute Lymphocytes 1.2 10^3/uL (1.2-3.4); Absolute Monocytes 0.7 10^3/uL (0.1-0.6); Absolute Neutrophils 6.7 10^3/uL (1.4-6.5); Hematocrit 34.5 % (39.0-52.0); Hemoglobin 10.7 g/dL (13.0-18.0); Mean Corpuscular Hgb 29.5 pg (27.0-31.0); Mean Platelet Volume 9.7 fL (7.4-10.4); Nucleated Red Blood Cells % 0 % (-); Platelet Count 283 10^3/uL (130-400); Red Blood Cell Count 3.63 10^6/uL (4.70-6.10); Red Cell Dist. Width 15.3 % (11.5-14.5); White Blood Cell Count 9.2 10^3/uL (4.8-10.8)
[2024-03-25 06:35] LABS: INR 1.14; PT 15.1 Sec (11.4-14.6)
[2024-03-25 06:38] LABS: APTT 94.1 Sec (23.4-35.0)
[2024-03-25 06:46] LABS: Glucose - Point of Care 70 mg/dl (70-99)
--- NOTE | 2024-03-25 06:53 | W.PN.UPDATE ---
Update Note
Progress Note Update
BS 70's-80's overnight. Patient is NPO, Will maintain on D5NS @ 60 CC/hr. At baseline VS otherwise. no new signs or symptoms.
[2024-03-25 06:54] LABS: ALT (SGPT) < 10 U/L (0-50); AST (SGOT) 14 U/L (17-59); Albumin 2.3 g/dl (3.5-5.0); Alkaline Phosphatase 112 U/L (38-126); Blood Urea Nitrogen 25 mg/dl (9-20); Calcium 8.2 mg/dl (8.4-10.2); Carbon Dioxide 27 mmol/L (22-30); Chloride 99 mmol/L (98-107); Direct Bilirubin 0.3 mg/dl (0.0-0.4); Estimated Creatinine Clearance 13 ml/min; Glucose 78 mg/dl (70-99); Potassium 4.5 mmol/L (3.5-5.1); Sodium 135 mmol/L (135-145); Total Bilirubin 0.3 mg/dl (0.2-1.3); Total Protein 5.6 g/dl (6.3-8.2); eGFR 10.74
[2024-03-25] MEDS: NSS IV (06:57)
[2024-03-25 07:10] VITALS: BP 136/76
[2024-03-25] MEDS: D5/0.9% SODIUM CHLORIDE 1000 IV (07:22)
[2024-03-25] MEDS: HEPARIN 25000 UNITS/250 ML IV (07:24)
[2024-03-25] MEDS: RENVELA PO (08:02)
[2024-03-25] MEDS: COREG 6.25 MG PO ×2 (08:05→20:49)
[2024-03-25] MEDS: PROTONIX IV 40 MG IV ×2 (08:05→20:57)
[2024-03-25] MEDS: NSS (PRESERVATIVE FREE) 10 ML IV ×2 (08:05→20:57)
[2024-03-25] MEDS: PROCARDIA XL (EXTENDED RELEASE) 60 MG PO (08:06)
[2024-03-25] MEDS: LIDOCAINE 4% PATCH 1 PATCH TOPICAL (08:06)
[2024-03-25] MEDS: APRESOLINE 100 MG PO ×2 (08:06→23:05)
--- NOTE | 2024-03-25 08:52 | W.PN.HOSP.TC ---
Addendum entered and electronically signed by Kyle Gamble MD 03/25/24 16:03:
Discussed with psychiatry today.
Updated sister over the phone today.
Original Note:
Today's Communication/Plan
-
Clear liquid diet and advance as tolerated. X-ray of the abdomen.
Assessment / Plan
Assessment / Plan
Physical exam:
General: No acute distress today
HEENT: Normocephalic, Atraumatic and moist mucous Membranes
Respiratory: Decreased breath sounds in the bases. Clear to Auscultation; Negative Wheezes, Rales or Rhonchi
Cardiac: Regular Rhythm and S1/S2
GI: Soft, non-tender and Distended, bowel sounds normal.
Musculoskeletal: No Clubbing, No Cyanosis and bilateral lower extremity edema
Neuro: Awake, Alert and Oriented
Psych: Calm
A/P:
Persistent nausea and vomiting related to ileus. Less likely GOO or SBO.
Surgery consult appreciated. Per surgery more likely ileus related to multiple abdominal paracentesis.
Advance to clear liquid diet today
Stop IV fluids today
Repeat x-ray of the abdomen today and it shows improvement.
PT OT eval
Recurrent ascites:
Multiple abdominal paracentesis
Last paracentesis on 03/22 no evidence of SBP (over 6 L). Negative culture from abdominal paracentesis fluid on 03/18 as well.
Latest blood cultures no growth from 03/17
Stop antibiotics
Presentation with hematemesis during this admission/recent life-threatening GI bleed in the setting of warfarin use on end January-beginning February 2024 but tolerated warfarin prior to his recent discharge:
GI has been on consult
Last upper endoscopy on 03/19 shows grade 1 esophageal varices with severe portal hypertensive gastropathy and friable mucosa and small hiatal hernia but no active bleed.
Given octreotide, Protonix, Kcentra in the ED upon admission
Currently on Protonix 40 mg IV twice a day
Also on Coreg
Fever:
Afebrile currently
He has been placed on IV ceftriaxone for possible SBP and possible prophylaxis in the setting of cirrhotic GI bleed
Blood cultures no growth
Doubt we need to continue antibiotics long course-will only do a course of 7 days--> stop antibiotics today on 03/25
Paroxysmal atrial fibrillation:
On rate control, beta-blockers
On anticoagulation, Heparin drip--> as far as I can tell there was an attempt to switch to DOAC but patient would not afford. If we have him back on long-term anticoagulation, he is at risk of recurrence of bleeding.
Hypertension:
Continue current antihypertensive regimen
His blood pressure can go very high if he does not take his multiple agents so monitor closely
End-stage renal disease on hemodialysis:
Hemodialysis per nephrology-plan for HD today
Depression:
Defer antidepressant to psych
Chronic diastolic congestive heart failure
CAD
Cirrhosis
Alcohol use disorder
PVD
Diabetes mellitus
Chronic pain syndrome with spinal stenosis and multiple surgeries chronic opioid dependence
History of C. difficile in the past
History of migraine
History of pleural effusions
History of pericardial effusion
Former alcohol use disorder and ex-smoker
Hyponatremia
Dunlap's esophagus
Hypoalbuminemia
Stage I pressure injury in the sacrum and heels, POA
Noncompliance
DVT prophylaxis:
Already on heparin drip
CODE STATUS:
DNR
Anticipated Discharge: > 48 hours
Subjective/Interval History
-
Date of Service: March 25, 2024
Patient feels much better today. No nausea or vomiting. No abdominal pain. Afebrile
Objective Data
-
Labs:
Laboratory Results
03/24/24 03/25/24 03/25/24
21:40 05:43 12:00
WBC 9.2
Hgb 10.7 L
Hct 34.5 L
Plt Count 283
PT 15.1 H
INR 1.14
APTT 146.4 H 94.1 H Pending
Sodium 135
Potassium 4.5
Chloride 99
Carbon Dioxide 27
BUN 25 H
Creatinine 5.7 H*
Glucose 78
Calcium 8.2 L
Total Bilirubin 0.3
AST 14 L
ALT < 10
Alkaline Phosphatase 112
Vital Signs:
Vital Signs
Temp Pulse Resp BP Pulse Ox
98.1 F 93 18 136/76 98
03/25/24 07:10 03/25/24 08:06 03/25/24 07:10 03/25/24 08:06 03/25/24 07:10
I&O
03/24/24 03/25/24 03/26/24
06:59 06:59 06:59
Intake Total 700 / 700 415 / 415
Balance 700 / 700 415 / 415
[2024-03-25] MEDS: RENVELA 1600 MG PO ×3 (10:14→16:24)
[2024-03-25 11:05] VITALS: BP 105/56
[2024-03-25 11:49] LABS: Glucose - Point of Care 110 mg/dl (70-99)
[2024-03-25] MEDS: NOVOLOG FLEXPEN-MODERATE RESISTANCE SC ×2 (11:59→16:26)
--- NOTE | 2024-03-25 12:04 | W.PN.GS2 ---
Addendum entered and electronically signed by Jeremy Durham MD 03/25/24 16:24:
I saw and examined the patient.
The Cigar Head Piercer's note was reviewed and I agree with the note.
Comment: No complaints, ab soft, nt, passing flatus, mile cld without nausea or pain. Will adv to FLD. GS will follow
Original Note:
Today's Communication / Plan
-
Trial of clears
Assessment / Plan
-
58 yo male with a complex medical history including cirrhosis, esophageal varices here originally for abdominal pain and hematemesis s/p EGD on 03/19 with nonbleeding esophageal varices noted and unobstructed diaphragmatic hernia. He developed
ileus with a few days of nonbloody nonbilious emesis, now resolved. Doubt GOO given recent EGD findings.
XR with some improvement today
Passing flatus, no BM as of yet
Denies further n/v
--Trial of clears
--Hold laxative/stimulants until ileus resolved
--Medical management as per primary team
Subjective Data
-
Date of Service: March 25, 2024
Patient seen and examined at bedside. Denies n/v. Passing quite a bit of flatus, but no BM as of yet. Denies abdominal pain.
Objective Data
-
Intake and Output
03/24/24 03/25/24 03/26/24
06:59 06:59 06:59
Intake Total 700 / 700 415 / 415
Balance 700 / 700 415 / 415
Intake:
Oral fluids 540 / 540 175 / 175
IV fluids (Total) 240 / 240
IV piggybacks 160 / 160
Vital Signs
Temp Pulse Resp BP Pulse Ox
98.1 F 93 18 136/76 98
03/25/24 07:10 03/25/24 08:06 03/25/24 07:10 03/25/24 08:06 03/25/24 10:59
Lab Results
03/25/24 05:43
03/25/24 05:43
Calcium 8.2 mg/dl (8.4-10.2) L 03/25/24 05:43
Magnesium 2.0 mg/dl (1.6-2.3) 03/24/24 05:04
Total Bilirubin 0.3 mg/dl (0.2-1.3) 03/25/24 05:43
Direct Bilirubin 0.3 mg/dl (0.0-0.4) 03/25/24 05:43
AST 14 U/L (17-59) L 03/25/24 05:43
ALT < 10 U/L (0-50) 03/25/24 05:43
Alkaline Phosphatase 112 U/L (38-126) 03/25/24 05:43
Total Protein 5.6 g/dl (6.3-8.2) L 03/25/24 05:43
Albumin 2.3 g/dl (3.5-5.0) L 03/25/24 05:43
Physical Exam
-
NAD
ABD with ascites, soft, non-distended, nt
[2024-03-25 13:30] LABS: APTT 151.2 Sec (23.4-35.0)
[2024-03-25] MEDS: MANNITOL 25% 12.5 GRAMS IV ×2 (13:33→15:04)
[2024-03-25] MEDS: DURAGESIC 12 MCG/HR PATCH 1 PATCH TRANSDERM (14:02)
--- NOTE | 2024-03-25 14:20 | W.PN.UPDATE ---
Update Note
Progress Note Update
patient seen chart reviewed. spoke with nursing. mr jose is in a much better place today. he was able to talk w me. c/o back pain which is a longstanding issue for him. we discussed restarting zoloft which he does feel helped him . will order
25 mg and increase gradually. patient did not experience side effects in the past. psych will see him over weekend for support.
[2024-03-25] MEDS: APRESOLINE PO (15:09)
[2024-03-25 15:15] VITALS: BP 96/57
--- NOTE | 2024-03-25 16:05 | CM ---
Addendum entered by Isidra Slater 03/25/24 16:16:
[facility]
Report #: [phone]
Fax #: [phone]
Original Note:
Patient seen at bedside.
Patient receiving dialysis.
Patient came from [facility]
Spoke with María Elena & updated.
PT/OT rec SNF
CM to obtain auth
PLAN: [facility], will need to obtain auth
[2024-03-25 16:29] LABS: Glucose - Point of Care 146 mg/dl (70-99)
[2024-03-25] MEDS: DILAUDID 1 MG IV (16:33)
--- NOTE | 2024-03-25 17:11 | W.PN.NEPH.HD ---
Assessment
-
pt seen during HD
BP soft with Am meds
UF is limited
Wts not accurate in different bed
AVF functions well
Progress Note - Hemodialysis
-
Date of Service: March 25, 2024
Duration: 30 minutes and 3 hours
Potassium Bath: 2
Calcium Bath: 2.5
Opti-Dialyzer: 160
Ultrafiltration: Other (1kg)
Blood Flow: 400
Dialysate Flow: 600
Heparin: no
EPO: no
[2024-03-25 19:20] VITALS: BP 108/66
[2024-03-25] MEDS: PROCARDIA XL (EXTENDED RELEASE) 30 MG PO (20:50)
[2024-03-25 21:06] LABS: APTT 69.9 Sec (23.4-35.0)
[2024-03-25 21:27] LABS: Glucose - Point of Care 284 mg/dl (70-99)
[2024-03-25] MEDS: LIPITOR 80 MG PO (23:05)
[2024-03-25 23:32] VITALS: BP 136/66
[2024-03-26] MEDS: HEPARIN 25000 UNITS/250 ML IV ×2 (00:47→22:07)
[2024-03-26] MEDS: DILAUDID 0.5 MG IV ×5 (00:50→21:48)
[2024-03-26 03:46] VITALS: BP 143/69
[2024-03-26 04:38] LABS: APTT 108.8 Sec (23.4-35.0)
[2024-03-26] MEDS: MURO 128/ADSORBONAC 5% EYE DROPS 1 DROP OPHTH ×6 (05:17→23:34)
[2024-03-26 06:00] VITALS: BMI 19.9
[2024-03-26 07:30] VITALS: BP 110/58
[2024-03-26 07:44] LABS: Glucose - Point of Care 155 mg/dl (70-99)
--- NOTE | 2024-03-26 09:03 | W.PN.HOSP.TC ---
Today's Communication/Plan
-
Advance diet today. Warfarin. Aggressive bowel regimen.
Assessment / Plan
Assessment / Plan
Physical exam:
General: No acute distress today
HEENT: Normocephalic, Atraumatic and moist mucous Membranes
Respiratory: Decreased breath sounds in the bases. Clear to Auscultation; Negative Wheezes, Rales or Rhonchi
Cardiac: Regular Rhythm and S1/S2
GI: Soft, non-tender and Distended, bowel sounds normal.
Musculoskeletal: No Clubbing, No Cyanosis and bilateral lower extremity edema
Neuro: Awake, Alert and Oriented
Psych: Calm
A/P:
Persistent nausea and vomiting related to ileus. Less likely GOO or SBO.
Surgery consult appreciated. Per surgery more likely ileus related to multiple abdominal paracentesis. Also narcotics contributing.
Advance to low residue diet today
Antiemetics as needed
PT OT eval
Constipation:
MiraLAX twice a day
Colace twice a day
Lactulose 20 g twice a day
Chronic pain with opioid dependence:
On fentanyl patch and IV Dilaudid
Add oxycodone as needed
Careful with side effects of narcotics therefore monitor closely
Recurrent ascites:
Multiple abdominal paracentesis
Last paracentesis on 03/22 no evidence of SBP (over 6 L). Negative culture from abdominal paracentesis fluid on 03/18 as well.
Latest blood cultures no growth from 03/17
Stop antibiotics
Presentation with hematemesis during this admission/recent life-threatening GI bleed in the setting of warfarin use on end January-beginning February 2024 but tolerated warfarin prior to his recent discharge:
GI has been on consult
Last upper endoscopy on 03/19 shows grade 1 esophageal varices with severe portal hypertensive gastropathy and friable mucosa and small hiatal hernia but no active bleed.
Given octreotide, Protonix, Kcentra in the ED upon admission
Currently on Protonix 40 mg IV twice a day
Also on Coreg
Fever:
Afebrile currently
He has been placed on IV ceftriaxone for possible SBP and possible prophylaxis in the setting of cirrhotic GI bleed
Blood cultures no growth
Doubt we need to continue antibiotics long course-will only do a course of 7 days--> stopped antibiotics on 03/25
Paroxysmal atrial fibrillation:
On rate control, beta-blockers
On anticoagulation, Heparin drip--> as far as I can tell there was an attempt to switch to DOAC but patient would not afford. If we have him back on long-term anticoagulation, he is at risk of recurrence of bleeding.
Start warfarin tonight on 03/26
Hypertension:
Continue current antihypertensive regimen
His blood pressure can go very high if he does not take his multiple agents so monitor closely
End-stage renal disease on hemodialysis:
Hemodialysis per nephrology-plan for HD today
Depression:
Psych started him on Zoloft 25 mg daily
Chronic diastolic congestive heart failure
CAD
Cirrhosis
Alcohol use disorder
PVD
Diabetes mellitus
Chronic pain syndrome with spinal stenosis and multiple surgeries chronic opioid dependence
History of C. difficile in the past
History of migraine
History of pleural effusions
History of pericardial effusion
Former alcohol use disorder and ex-smoker
Hyponatremia
Dunlap's esophagus
Hypoalbuminemia
Stage I pressure injury in the sacrum and heels, POA
Noncompliance
DVT prophylaxis:
Already on heparin drip
CODE STATUS:
DNR
Total time spent on today's encounter was 52 minutes which included time spent in counseling the patient/family regarding diagnosis and treatment plan as listed above, goals of care, and symptom management. Case was discussed with nursing staff,
specialists, and care coordinators/case management. All labs and imaging personally reviewed by me. Remainder the time spent in detailed review of previous records, lab data, imaging, and other medical provider documentation.
Anticipated Discharge: > 48 hours
Subjective/Interval History
-
Date of Service: March 26, 2024
Better overall although at times nausea. No bowel movement. Complains of his chronic pain. Afebrile
Objective Data
-
Labs:
Laboratory Results
03/25/24 03/26/24 03/26/24
20:45 03:29 04:01
Hgb
Hct
APTT 69.9 H Cancelled 108.8 H
Sodium
Potassium
Chloride
Carbon Dioxide
03/26/24 03/26/24
06:00 10:00
Hgb Pending
Hct Pending
APTT Pending
Sodium Pending
Potassium Pending
Chloride Pending
Carbon Dioxide Pending
Vital Signs:
Vital Signs
Temp Pulse Resp BP Pulse Ox
97.3 F 84 18 143/69 99
03/26/24 03:46 03/26/24 03:46 03/26/24 03:46 03/26/24 03:46 03/26/24 03:46
I&O
03/25/24 03/26/24 03/27/24
06:59 06:59 06:59
Intake Total 415 / 415 960 / 960
Balance 415 / 415 960 / 960
[2024-03-26] MEDS: NOVOLOG FLEXPEN-MODERATE RESISTANCE 1 UNITS SC ×3 (09:40→17:40)
[2024-03-26] MEDS: APRESOLINE 100 MG PO ×3 (09:41→23:32)
[2024-03-26] MEDS: COREG 6.25 MG PO ×2 (09:41→21:54)
[2024-03-26] MEDS: PROCARDIA XL (EXTENDED RELEASE) 60 MG PO (09:41)
[2024-03-26] MEDS: RENVELA 1600 MG PO ×3 (09:41→17:22)
[2024-03-26] MEDS: ZOLOFT 25 MG PO (09:41)
[2024-03-26] MEDS: LIDOCAINE 4% PATCH 1 PATCH TOPICAL (09:42)
[2024-03-26] MEDS: PROTONIX IV 40 MG IV ×2 (09:43→21:52)
[2024-03-26] MEDS: NSS (PRESERVATIVE FREE) 10 ML IV ×2 (09:43→21:52)
--- NOTE | 2024-03-26 10:05 | W.PN.UPDATE ---
Update Note
Progress Note Update
Patient was nt in a talkative mood, stated h wanted to take a nap. He admits to feeling depressed which is understandable given his medical condition. He is putting his blanca in God.
Dr. Mejia started him Zoloft; of curse it it too early to rack cleaner response.
We will continue F/U.
[2024-03-26 10:21] LABS: Hematocrit 33.3 % (39.0-52.0); Hemoglobin 10.5 g/dL (13.0-18.0)
[2024-03-26 10:38] LABS: Carbon Dioxide 29 mmol/L (22-30); Chloride 96 mmol/L (98-107); Potassium 3.9 mmol/L (3.5-5.1); Sodium 134 mmol/L (135-145)
[2024-03-26 10:56] LABS: APTT 160.5 Sec (23.4-35.0)
[2024-03-26 11:05] VITALS: BP 119/57
--- NOTE | 2024-03-26 11:29 | W.PN.GS2 ---
Addendum entered and electronically signed by Jeremy Durham MD 03/26/24 11:45:
I saw and examined the patient.
The [facility]bridge Tender's note was reviewed and I agree with the note.
Comment: Belly soft, nt, nd; passing flatus, mile diet; ADAT to LRD
GS will s/o pls call with ?s
Original Note:
Today's Communication / Plan
-
ADAT
Assessment / Plan
-
58 yo male with a complex medical history including cirrhosis, esophageal varices here originally for abdominal pain and hematemesis s/p EGD on 03/19 with nonbleeding esophageal varices noted and unobstructed diaphragmatic hernia. He developed
ileus with a few days of nonbloody nonbilious emesis, now resolved.
Tolerating clears
Passing flatus, no BM as of yet
Denies further n/v
--Full liquids for lunch and ADAT to LRD if tolerating
--Medical management as per primary team
Subjective Data
-
Date of Service: March 26, 2024
Patient seen and examined at bedside with Dr. Durham. Denies n/v. A little bit of belching but passing flatus. No BM as of yet. Primary complaint is back pain today.
Objective Data
-
Intake and Output
03/25/24 03/26/24 03/27/24
06:59 06:59 06:59
Intake Total 415 / 415 960 / 960
Balance 415 / 415 960 / 960
Intake:
Oral fluids 175 / 175 960 / 960
IV fluids (Total) 240 / 240
Vital Signs
Temp Pulse Resp BP Pulse Ox
98.0 F 78 16 110/58 99
03/26/24 07:30 03/26/24 07:30 03/26/24 07:30 03/26/24 07:30 03/26/24 07:30
Lab Results
03/26/24 09:34
03/26/24 09:34
Calcium 8.2 mg/dl (8.4-10.2) L 03/25/24 05:43
Magnesium 2.0 mg/dl (1.6-2.3) 03/24/24 05:04
Total Bilirubin 0.3 mg/dl (0.2-1.3) 03/25/24 05:43
Direct Bilirubin 0.3 mg/dl (0.0-0.4) 03/25/24 05:43
AST 14 U/L (17-59) L 03/25/24 05:43
ALT < 10 U/L (0-50) 03/25/24 05:43
Alkaline Phosphatase 112 U/L (38-126) 03/25/24 05:43
Total Protein 5.6 g/dl (6.3-8.2) L 03/25/24 05:43
Albumin 2.3 g/dl (3.5-5.0) L 03/25/24 05:43
Physical Exam
-
NAD
ABD with ascites, soft, non-distended, nt
--- NOTE | 2024-03-26 11:45 | W.PN.NEPH.PH ---
Today's Communication / Plan
-
HD on Thursday
Assessment/Plan
-
Impression:
coffee-ground emesis -GIB /portal gastropathy/
Recent hospitalization with life-threatening gastrointestinal hemorrhage
Accelerated hypertension secondary to volume overload.
Recurrent ascites
hypoglycemia
Coumadin Coagulopathy
Hyperkalemia
Metabolic Acidosis
ESRD on hemodialysis at [facility], previously TTS [facility]
Anemia of ESRD
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
Paroxysmal Atrial Fibrillation
Chronic HFpEF
History of bilateral pleural effusions status post thoracentesis
History of pericardial effusion status post pericardiocentesis
Coronary artery disease
Essential hypertension
DM2 with multiple microvascular complications
Hyperlipidemia
Spinal stenosis
Anxiety/depression
L radial AVF
Plan:
Dialysis tomorrow
A/w hematemesis from NH
BP high but dramatically improves when he actually takes his medications
c/o back pian acute on chr receiving Dilaudid
added coreg for portal gastropathy
clonidine changed to patch , procardia increased dose
BP seem soft sometimes-monitor may need to deescalate meds
abx per primary
He has multiple admits recently mainly for decompensated liver disease, non adherence to HD suggest over all long term prognosis is poor
DNR
-
-
Date of Service: March 26, 2024
CC / HPI / ROS
-
Chief Complaint:
ESRD
History of Present Illness:
hb 10.5 stable
BP labile with meds
ESRD Thursday
Review of Systems:
tolerating liquid diet
c/o chr back pain
no n/v. no abd pain
No fevers
Labs
-
Labs:
WBC 9.2 10^3/uL (4.8-10.8) 03/25/24 05:43
RBC 3.63 10^6/uL (4.70-6.10) L 03/25/24 05:43
Hgb 10.5 g/dL (13.0-18.0) L 03/26/24 09:34
Hct 33.3 % (39.0-52.0) L 03/26/24 09:34
Plt Count 283 10^3/uL (130-400) 03/25/24 05:43
Sodium 134 mmol/L (135-145) L 03/26/24 09:34
Potassium 3.9 mmol/L (3.5-5.1) 03/26/24 09:34
Chloride 96 mmol/L (98-107) L 03/26/24 09:34
Carbon Dioxide 29 mmol/L (22-30) 03/26/24 09:34
BUN 25 mg/dl (9-20) H 03/25/24 05:43
Creatinine 5.7 mg/dL (0.7-1.3) H* 03/25/24 05:43
eGFR 10.74 03/25/24 05:43
Glucose 78 mg/dl (70-99) 03/25/24 05:43
Calcium 8.2 mg/dl (8.4-10.2) L 03/25/24 05:43
Albumin 2.3 g/dl (3.5-5.0) L 03/25/24 05:43
Physical Exam
-
Vital Signs:
Vital Signs
Temp Pulse Resp BP Pulse Ox
98.0 F 78 16 110/58 99
03/26/24 07:30 03/26/24 07:30 03/26/24 07:30 03/26/24 07:30 03/26/24 07:30
Cardiovascular:: Regular rate and rhythm
Respiratory:: Bilateral: CTA (decreased)
Lung Excursion:: Normal
Abdomen:: Distended, Nontender and Soft
Extremity Edema:: None: Bilateral: (trace)
Alfred Catheter: No
[2024-03-26 12:19] LABS: Glucose - Point of Care 193 mg/dl (70-99)
[2024-03-26] MEDS: DUPHALAC/CHRONULAC 20 GRAMS PO ×2 (13:28→21:52)
[2024-03-26] MEDS: COLACE 100 MG PO ×2 (13:29→21:54)
[2024-03-26] MEDS: MIRALAX 17 GRAMS PO ×2 (13:29→21:55)
[2024-03-26 15:05] VITALS: BP 118/62
[2024-03-26] MEDS: FLUSH (NSS) 2 FLUSH IV (16:00)
[2024-03-26] MEDS: COUMADIN 5 MG PO (17:22)
[2024-03-26 17:39] LABS: APTT 108.5 Sec (23.4-35.0)
[2024-03-26 17:40] LABS: Glucose - Point of Care 178 mg/dl (70-99)
[2024-03-26 19:11] VITALS: BP 105/55
[2024-03-26 21:39] LABS: Glucose - Point of Care 240 mg/dl (70-99)
[2024-03-26] MEDS: LIPITOR 80 MG PO (21:50)
[2024-03-26] MEDS: PROCARDIA XL (EXTENDED RELEASE) 30 MG PO (21:56)
[2024-03-26 23:51] VITALS: BP 117/60
[2024-03-27 00:08] LABS: APTT 79.9 Sec (23.4-35.0)
[2024-03-27] MEDS: DILAUDID 0.5 MG IV ×5 (02:13→22:46)
[2024-03-27 03:18] VITALS: BP 132/64
[2024-03-27] MEDS: MURO 128/ADSORBONAC 5% EYE DROPS OPHTH (04:36)
[2024-03-27 05:09] VITALS: BMI 20.1
[2024-03-27 05:42] LABS: INR 1.16; PT 15.1 Sec (11.4-14.6)
[2024-03-27 05:44] LABS: APTT 82.5 Sec (23.4-35.0)
[2024-03-27 05:50] LABS: Hematocrit 33.5 % (39.0-52.0); Hemoglobin 10.7 g/dL (13.0-18.0); Mean Corp Hgb Conc. 31.9 g/dL (33.0-37.0); Mean Corpuscular Hgb 30.1 pg (27.0-31.0); Mean Corpuscular Volume 94.4 fL (80.0-94.0); Mean Platelet Volume 10.2 fL (7.4-10.4); Platelet Count 227 10^3/uL (130-400); Red Blood Cell Count 3.55 10^6/uL (4.70-6.10); Red Cell Dist. Width 15.6 % (11.5-14.5); White Blood Cell Count 7.9 10^3/uL (4.8-10.8)
[2024-03-27 05:58] LABS: Blood Urea Nitrogen 22 mg/dl (9-20); Calcium 8.1 mg/dl (8.4-10.2); Carbon Dioxide 27 mmol/L (22-30); Chloride 98 mmol/L (98-107); Estimated Creatinine Clearance 17 ml/min; Glucose 114 mg/dl (70-99); Potassium 4.3 mmol/L (3.5-5.1); Sodium 136 mmol/L (135-145); eGFR 14.65
[2024-03-27 07:20] VITALS: BP 108/56
[2024-03-27 08:15] LABS: Glucose - Point of Care 148 mg/dl (70-99)
--- NOTE | 2024-03-27 09:00 | W.PN.HOSP.TC ---
Today's Communication/Plan
-
PPI. Bowel regimen. PT OT.
Assessment / Plan
Assessment / Plan
Physical exam:
General: No acute distress today
HEENT: Normocephalic, Atraumatic and moist mucous Membranes
Respiratory: Decreased breath sounds in the bases. Clear to Auscultation; Negative Wheezes, Rales or Rhonchi
Cardiac: Regular Rhythm and S1/S2
GI: Soft, non-tender and Distended, bowel sounds normal.
Musculoskeletal: No Clubbing, No Cyanosis and bilateral lower extremity edema
Neuro: Awake, Alert and Oriented
Psych: Calm
A/P:
Persistent nausea and vomiting related to ileus. Less likely GOO or SBO.
Improved
Surgery consult appreciated. Per surgery more likely ileus related to multiple abdominal paracentesis. Also narcotics contributing.
Continue low residue diet with diabetic and fluid restrictions
Continue bowel regimen
PT OT eval
manager materials management for discharge disposition
Constipation:
Improving
MiraLAX twice a day
Colace twice a day
Lactulose 20 g twice a day
Chronic pain with opioid dependence:
On fentanyl patch and IV Dilaudid
Added oxycodone as needed
Recurrent ascites:
Multiple abdominal paracentesis
Last paracentesis on 03/22 no evidence of SBP (over 6 L). Negative culture from abdominal paracentesis fluid on 03/18 as well.
Latest blood cultures no growth from 03/17
Off antibiotics
Presentation with hematemesis during this admission/recent life-threatening GI bleed in the setting of warfarin use on end January-beginning February 2024 but tolerated warfarin prior to his recent discharge:
GI has been on consult
Last upper endoscopy on 03/19 shows grade 1 esophageal varices with severe portal hypertensive gastropathy and friable mucosa and small hiatal hernia but no active bleed.
Given octreotide, Protonix, Kcentra in the ED upon admission
Currently on Protonix 40 mg IV twice a day
Also on Coreg
Hb stable 10.7
Fever:
Afebrile currently
He has been placed on IV ceftriaxone for possible SBP and possible prophylaxis in the setting of cirrhotic GI bleed
Blood cultures no growth
Doubt we need to continue antibiotics long course-will only do a course of 7 days--> stopped antibiotics on 03/25
Paroxysmal atrial fibrillation:
On rate control, beta-blockers
On anticoagulation, Heparin drip--> as far as I can tell there was an attempt to switch to DOAC but patient would not afford. If we have him back on long-term anticoagulation, he is at risk of recurrence of bleeding.
Started warfarin on 03/26
INR today 1.16
Hypertension:
Continue current antihypertensive regimen
His blood pressure can go very high if he does not take his multiple agents so monitor closely
End-stage renal disease on hemodialysis:
Hemodialysis per nephrology-plan for HD today
Depression:
Psych started him on Zoloft 25 mg daily
Chronic diastolic congestive heart failure
CAD
Cirrhosis
Alcohol use disorder
PVD
Diabetes mellitus
Chronic pain syndrome with spinal stenosis and multiple surgeries chronic opioid dependence
History of C. difficile in the past
History of migraine
History of pleural effusions
History of pericardial effusion
Former alcohol use disorder and ex-smoker
Hyponatremia
Dunlap's esophagus
Hypoalbuminemia
Stage I pressure injury in the sacrum and heels, POA
Noncompliance
DVT prophylaxis:
Already on heparin drip
CODE STATUS:
DNR
Anticipated Discharge: 24 - 48 hours
Subjective/Interval History
-
Date of Service: March 27, 2024
Patient feels better overall. No nausea or vomiting. Moving his bowels. No bleeding. Afebrile
Objective Data
-
Labs:
Laboratory Results
03/26/24 03/27/24 03/27/24
23:36 04:54 06:00
WBC 7.9
Hgb 10.7 L
Hct 33.5 L
Plt Count 227
PT 15.1 H Cancelled
INR 1.16 Cancelled
APTT 79.9 H 82.5 H
Sodium 136
Potassium 4.3
Chloride 98
Carbon Dioxide 27
BUN 22 H
Creatinine 4.4 H*
Glucose 114 H
Calcium 8.1 L
Vital Signs:
Vital Signs
Temp Pulse Resp BP Pulse Ox
98.2 F 85 17 132/64 98
03/27/24 03:18 03/27/24 03:18 03/27/24 03:18 03/27/24 03:18 03/27/24 03:18
I&O
03/26/24 03/27/24 03/28/24
06:59 06:59 06:59
Intake Total 960 / 960 1416 / 1416
Balance 960 / 960 1416 / 1416
[2024-03-27] MEDS: RENVELA 1600 MG PO ×3 (09:25→17:57)
[2024-03-27] MEDS: COLACE 100 MG PO (09:25)
[2024-03-27] MEDS: ZOLOFT 25 MG PO (09:25)
[2024-03-27] MEDS: PROTONIX IV 40 MG IV ×2 (09:25→22:44)
[2024-03-27] MEDS: NSS (PRESERVATIVE FREE) 10 ML IV ×2 (09:26→22:45)
[2024-03-27] MEDS: DUPHALAC/CHRONULAC 20 GRAMS PO (09:27)
[2024-03-27] MEDS: MURO 128/ADSORBONAC 5% EYE DROPS 1 DROP OPHTH ×4 (09:27→22:50)
[2024-03-27] MEDS: LIDOCAINE 4% PATCH 1 PATCH TOPICAL (09:27)
[2024-03-27] MEDS: MIRALAX 17 GRAMS PO (09:27)
[2024-03-27] MEDS: NOVOLOG FLEXPEN-MODERATE RESISTANCE SC ×2 (09:28→17:40)
[2024-03-27] MEDS: COREG 6.25 MG PO ×2 (09:38→22:43)
[2024-03-27] MEDS: APRESOLINE PO (09:51)
[2024-03-27] MEDS: PROCARDIA XL (EXTENDED RELEASE) PO (09:52)
--- NOTE | 2024-03-27 10:59 | W.PN.UPDATE ---
Update Note
Progress Note Update
Patient is doing reasonably well from the psychiatric standpoint, denies significant dysphoria, hopelessness or anxiety. His family is visiting and that provides relief.
He is on Zoloft 25 mg od; it is hard to assess at this point the effectiveness as it was started only 2 days ago but he denies side effects.
will continue to F/U.
[2024-03-27 11:05] VITALS: BP 119/69
[2024-03-27 12:47] LABS: Glucose - Point of Care 222 mg/dl (70-99)
[2024-03-27] MEDS: NOVOLOG FLEXPEN-MODERATE RESISTANCE 3 UNITS SC (12:47)
--- NOTE | 2024-03-27 16:18 | W.PN.NEPH.PH ---
Today's Communication / Plan
-
HD tomorrow
hold procardia
Assessment/Plan
-
Impression:
coffee-ground emesis -GIB /portal gastropathy/
Recent hospitalization with life-threatening gastrointestinal hemorrhage
Accelerated hypertension secondary to volume overload.
Recurrent ascites
hypoglycemia
Coumadin Coagulopathy
Hyperkalemia
Metabolic Acidosis
ESRD on hemodialysis at [facility], previously TTS [place]
Anemia of ESRD
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
Paroxysmal Atrial Fibrillation
Chronic HFpEF
History of bilateral pleural effusions status post thoracentesis
History of pericardial effusion status post pericardiocentesis
Coronary artery disease
Essential hypertension
DM2 with multiple microvascular complications
Hyperlipidemia
Spinal stenosis
Anxiety/depression
L radial AVF
Plan:
Dialysis tomorrow
A/w hematemesis from NH
BP soft, down titrate meds, hold procardia
hols BP meds pre HD tomorrow
added coreg for portal gastropathy
clonidine changed to patch this admit
He has multiple admits recently mainly for decompensated liver disease, non adherence to HD suggest over all [facility] prognosis is poor
DNR
-
-
Date of Service: March 27, 2024
CC / HPI / ROS
-
Chief Complaint:
ESRD
History of Present Illness:
hb 10.7 stable
BP soft with meds
ESRD Thursday
Review of Systems:
tolerating diet
c/o chr back pain
no n/v. no abd pain
No fevers
Labs
-
Labs:
WBC 7.9 10^3/uL (4.8-10.8) 03/27/24 04:54
RBC 3.55 10^6/uL (4.70-6.10) L 03/27/24 04:54
Hgb 10.7 g/dL (13.0-18.0) L 03/27/24 04:54
Hct 33.5 % (39.0-52.0) L 03/27/24 04:54
Plt Count 227 10^3/uL (130-400) 03/27/24 04:54
Sodium 136 mmol/L (135-145) 03/27/24 04:54
Potassium 4.3 mmol/L (3.5-5.1) 03/27/24 04:54
Chloride 98 mmol/L (98-107) 03/27/24 04:54
Carbon Dioxide 27 mmol/L (22-30) 03/27/24 04:54
BUN 22 mg/dl (9-20) H 03/27/24 04:54
Creatinine 4.4 mg/dL (0.7-1.3) H* 03/27/24 04:54
eGFR 14.65 03/27/24 04:54
Glucose 114 mg/dl (70-99) H 03/27/24 04:54
Calcium 8.1 mg/dl (8.4-10.2) L 03/27/24 04:54
Albumin 2.3 g/dl (3.5-5.0) L 03/25/24 05:43
Physical Exam
-
Vital Signs:
Vital Signs
Temp Pulse Resp BP Pulse Ox
98.6 F 91 16 119/69 97
03/27/24 11:05 03/27/24 11:05 03/27/24 11:05 03/27/24 11:05 03/27/24 11:05
Cardiovascular:: Regular rate and rhythm
Respiratory:: Bilateral: CTA
Lung Excursion:: Normal
Abdomen:: Distended, Nontender and Soft
Extremity Edema:: None: Bilateral: (trace)
Alfred Catheter: No
[2024-03-27 17:34] VITALS: BP 134/71
[2024-03-27 17:39] LABS: Glucose - Point of Care 131 mg/dl (70-99)
[2024-03-27] MEDS: APRESOLINE 100 MG PO ×2 (17:57→22:50)
[2024-03-27] MEDS: COUMADIN 5 MG PO (17:57)
[2024-03-27] MEDS: HEPARIN 25000 UNITS/250 ML IV (18:32)
[2024-03-27 19:19] VITALS: BP 151/84
[2024-03-27] MEDS: COLACE PO (22:39)
[2024-03-27] MEDS: MIRALAX PO (22:40)
[2024-03-27 22:43] LABS: Glucose - Point of Care 135 mg/dl (70-99)
[2024-03-27] MEDS: DUPHALAC/CHRONULAC PO (22:43)
[2024-03-27] MEDS: LIPITOR 80 MG PO (22:44)
[2024-03-27 23:26] VITALS: BP 161/93
[2024-03-28] MEDS: MURO 128/ADSORBONAC 5% EYE DROPS OPHTH ×2 (01:15→05:16)
[2024-03-28] MEDS: APRESOLINE 10 MG IV (02:56)
[2024-03-28] MEDS: DILAUDID 0.5 MG IV ×5 (02:57→19:50)
[2024-03-28 03:27] VITALS: BP 180/92
[2024-03-28 06:00] VITALS: BMI 20.2
[2024-03-28 06:32] LABS: Hematocrit 33.1 % (39.0-52.0); Hemoglobin 10.4 g/dL (13.0-18.0); Mean Corp Hgb Conc. 31.4 g/dL (33.0-37.0); Mean Corpuscular Hgb 30.2 pg (27.0-31.0); Mean Corpuscular Volume 96.2 fL (80.0-94.0); Mean Platelet Volume 10.2 fL (7.4-10.4); Platelet Count 202 10^3/uL (130-400); Red Blood Cell Count 3.44 10^6/uL (4.70-6.10); Red Cell Dist. Width 15.9 % (11.5-14.5); White Blood Cell Count 7.1 10^3/uL (4.8-10.8)
[2024-03-28 06:33] LABS: INR 1.41; PT 17.5 Sec (11.4-14.6)
[2024-03-28 06:43] VITALS: BP 168/86
[2024-03-28 07:00] VITALS: BP 165/90
[2024-03-28 07:00] LABS: Blood Urea Nitrogen 31 mg/dl (9-20); Calcium 8.3 mg/dl (8.4-10.2); Carbon Dioxide 26 mmol/L (22-30); Chloride 98 mmol/L (98-107); Estimated Creatinine Clearance 13 ml/min; Glucose 118 mg/dl (70-99); Sodium 135 mmol/L (135-145); eGFR 10.52
[2024-03-28 07:34] LABS: Glucose - Point of Care 100 mg/dl (70-99)
[2024-03-28 07:37] LABS: APTT 83.2 Sec (23.4-35.0)
[2024-03-28] MEDS: NOVOLOG FLEXPEN-MODERATE RESISTANCE SC ×2 (07:59→11:27)
[2024-03-28] MEDS: DUPHALAC/CHRONULAC PO ×2 (08:34→19:47)
[2024-03-28] MEDS: MIRALAX PO ×2 (08:34→19:49)
[2024-03-28] MEDS: MURO 128/ADSORBONAC 5% EYE DROPS 1 DROP OPHTH ×4 (08:34→19:50)
[2024-03-28] MEDS: COLACE PO ×2 (08:34→19:49)
[2024-03-28] MEDS: LIDOCAINE 4% PATCH 1 PATCH TOPICAL (08:35)
[2024-03-28] MEDS: PROTONIX IV 40 MG IV ×2 (08:35→19:50)
[2024-03-28] MEDS: NSS (PRESERVATIVE FREE) 10 ML IV ×2 (08:35→19:50)
[2024-03-28] MEDS: APRESOLINE PO (08:35)
[2024-03-28] MEDS: COREG PO (08:36)
[2024-03-28] MEDS: RENVELA PO (08:36)
[2024-03-28] MEDS: ZOLOFT 25 MG PO (09:06)
[2024-03-28] MEDS: RETACRIT 4000 UNITS IV (09:20)
[2024-03-28] MEDS: FLEXBUMIN 25% FOR HEMODIALYSIS 12.5 GRAMS IV ×2 (09:25→10:39)
[2024-03-28] MEDS: MANNITOL 25% 12.5 GRAMS IV (09:27)
--- NOTE | 2024-03-28 10:00 | W.PN.NEPH.HD ---
Assessment
-
Patient seen on HD
sbp stable at current u/f
Progress Note - Hemodialysis
-
Date of Service: March 28, 2024
Duration: 30 minutes and 3 hours
Potassium Bath: 2
Calcium Bath: 2.5
Opti-Dialyzer: 160
Ultrafiltration: Other (1kg as tolerated)
Blood Flow: 400
Dialysate Flow: 600
Heparin: on heparin gtt
EPO: none
[2024-03-28 11:05] VITALS: BP 99/53
[2024-03-28 11:17] LABS: Glucose - Point of Care 104 mg/dl (70-99)
[2024-03-28] MEDS: RENVELA 1600 MG PO ×2 (11:33→17:31)
[2024-03-28] MEDS: CATAPRES-TTS-3 0.3 MG TRANSDERM (11:46)
[2024-03-28] MEDS: HEPARIN 25000 UNITS/250 ML IV (14:30)
[2024-03-28] MEDS: DURAGESIC 12 MCG/HR PATCH 1 PATCH TRANSDERM (14:30)
--- NOTE | 2024-03-28 14:47 | CM ---
Patient from [facility]
HD today
CM will need to obtain insurance auth before returning to [facility]
PLAN: [facility] - CM will need to obtain auth prior
Report #: [phone]
Fax #: [phone]
[2024-03-28 15:13] VITALS: BP 176/92
[2024-03-28] MEDS: APRESOLINE 100 MG PO ×2 (15:17→22:39)
--- NOTE | 2024-03-28 16:42 | W.PN.HOSP.TC ---
Today's Communication/Plan
-
Monitor bowel status, continue bowel regimen
Continue IV heparin drip
Warfarin 5 mg tonight, repeat INR tomorrow
Assessment / Plan
Assessment / Plan
#Ileus
-Improved
-Per surgery likelyrelated to multiple abdominal paracentesis and narcotics
-Continue low residue diet with diabetic and fluid restrictions
-Continue bowel regimen with MiraLAX/Colace/lactulose BID
-PT OT eval
-branch rental manager for discharge disposition
#Chronic pain with opioid dependence
-On fentanyl patch and IV Dilaudid
-Added oxycodone as needed
#Recurrent ascites
-Multiple abdominal paracentesis; previous fluid studies showed SAAG >1.3 consistent with portal hypertension, no signs of SBP per PMN percentage
-Last paracentesis on 03/22 no evidence of SBP (over 6 L), Negative culture from abdominal paracentesis fluid on 03/18 as well
-Was on course of antibiotics for SBP prophylaxis due to decompensated cirrhosis with ascites, now off antibiotics
-No signs of significant reaccumulation as of this more
#hematemesis
#Grade 1 esophageal
-GI has been on consult, low suspicion for variceal bleed, more likely due to abdominal pressure in the context of ascites
-Last upper endoscopy on 03/19 shows grade 1 esophageal varices with severe portal hypertensive gastropathy and friable mucosa and small hiatal hernia but no active bleed.
-Given octreotide, Protonix, Kcentra in the ED upon admission
-Currently on Protonix 40 mg IV twice a day, plan for oral at discharge
-Was started on carvedilol for reduction of portal hypertension
-CBC with stable hemoglobin
#Paroxysmal atrial fibrillation
-Home medications include beta-alison, warfarin
-Warfarin initially held for hematemesis, resumed on AC with heparin drip subsequently
-Initially plan to transition to DOAC such as due to noncompliance issues however patient cannot afford
-Currently on IV heparin bridge to warfarin, INR 1.41 this morning
-Ordered 5 mg of warfarin for this evening, repeat INR tomorrow
-INR goal 2-3, plan to DC heparin when at goal
#Hypertension
-Current medications include carvedilol, clonidine patch, hydralazine, nifedipine
-His blood pressure can go very high if he does not take his multiple agents so monitor closely
-Remains on as needed IV hydralazine for spikes in blood pressure
-Continue to monitor vitals and titrate antihypertensive regimen according
#End-stage renal disease
-Unclear etiology, currently on hemodialysis sessions every Thursday/Thursday/Thursday
-Complicated by anemia of CKD and bone mineral disease; on sevelamer; received EPO here
-Continue with HD as currently scheduled, trend BMP
#Depression:
-Psych started him on Zoloft 25 mg daily
#Type 2 diabetes with hypoglycemia
-No recent A1c; Home medications include insulin lispro
-Was hypoglycemic initially, likely hepatic dysfunction and issues with liberating glucose
-Standing dose insulin was held, started on sliding scale with Accu-Cheks
-Glucose has been improved and within goal on sliding scale and only
#HFpEF
-Unclear etiology, likely associated with volume overload in the setting of dialysis
-Not currently on SGLT2 inhibitor, is on an MRA for his cirrhosis with ascites
-Seems euvolemic today following dialysis and paracentesis yesterday
#CAD status post PCI (2015)
#PAD s/p femoropopliteal bypass
-Home medications include high intensity statin; not currently on any antiplatelet agents though is on warfarin as above
-No signs or symptoms of coronary ischemia nor limb ischemia during this hospitalization
#Chronic pain due to spinal stenosis
-Chronic ambulatory dysfunction
-Continue oxycodone with caution for oversedation.
-Physical therapy assessment once stable.
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
-Was transition back to oral PPI twice daily after EGD for likely Dunlap's
-Will need to follow-up outpatient for repeat EGD +/- EUS
#Cirrhosis
-Unclear etiology though suspected from SEN versus alcohol versus viral hepatitis
-MELD score unreliable due to hemodialysis requirements, previous treatment with warfarin but likely high
-Complicated by grade 1 varices and ascites as above; unclear if HRS led to his ESRD
-Will continue to monitor CMP and INR
DVT prophylaxis: Heparin drip
Diet: Renal diet
CODE STATUS: Full code
Anticipated Discharge: 24 - 48 hours
DVT prophylaxis: heparin drip -> Warfarin
Diet: Renal
CODE STATUS: DNR
Anticipated Discharge: 24 - 48 hours
Subjective/Interval History
-
Date of Service: March 28, 2024
Seen and examined at the bedside. No acute events reported overnight. AFVSS this morning
Having dialysis at time of my evaluation
Denies any acute complaints. Denies chest pain, dyspnea, fevers or chills, abdomen pain, nausea/vomiting/diarrhea, abnormal bleeding or bruising, paresthesias or weakness
Objective Data
-
Labs:
Laboratory Results
03/28/24
06:12
WBC 7.1
Hgb 10.4 L
Hct 33.1 L
Plt Count 202
PT 17.5 H
INR 1.41
APTT 83.2 H
Sodium 135
Potassium 5.0
Chloride 98
Carbon Dioxide 26
BUN 31 H
Creatinine 5.8 H*
Glucose 118 H
Calcium 8.3 L
Vital Signs:
Vital Signs
Temp Pulse Resp BP Pulse Ox
98.4 F 96 16 176/92 99
03/28/24 15:13 03/28/24 15:13 03/28/24 15:13 03/28/24 15:17 03/28/24 15:13
I&O
03/27/24 03/28/24 03/29/24
06:59 06:59 06:59
Intake Total 141 / 1416 940 / 940
Balance 1416 / 141 940 / 940
Review of Systems
-
History Source: Patient
All other systems: Reviewed and negative
Physical Exam
-
General: Well Developed, No Apparent Distress, Comfortable and Appears Chronically Ill
HEENT: Normocephalic, Atraumatic, Moist Mucous Membranes and Anicteric
Respiratory: Clear to Auscultation and Non Labored Respirations
Cardiac: Regular Rhythm and S1/S2; Negative Murmur, Rub or Gallop
GI: Soft, Nontender, Nondistended and Normal Bowel Sounds
Musculoskeletal: No Clubbing, No Cyanosis and No Edema
Skin: Warm, Dry and Normal Turgor; Negative Rash or Jaundice
Neuro: AO x 3 and Nonfocal/Grossly Intact
Psych: Calm
Data Reviewed
-
Labs: Labs Reviewed by me, Discussed with Physician and Discussed with Patient
[2024-03-28] MEDS: COUMADIN 5 MG PO (17:31)
[2024-03-28 17:33] LABS: Glucose - Point of Care 208 mg/dl (70-99)
[2024-03-28] MEDS: ROXICODONE 10 MG PO (18:24)
[2024-03-28] MEDS: NOVOLOG FLEXPEN-MODERATE RESISTANCE 3 UNITS SC (18:25)
[2024-03-28] MEDS: COREG 6.25 MG PO (19:49)
[2024-03-28 22:12] LABS: Glucose - Point of Care 133 mg/dl (70-99)
[2024-03-28] MEDS: LIPITOR 80 MG PO (22:40)
[2024-03-28 23:49] VITALS: BP 152/78
[2024-03-29] MEDS: MURO 128/ADSORBONAC 5% EYE DROPS 1 DROP OPHTH ×5 (01:00→23:53)
[2024-03-29] MEDS: DILAUDID 0.5 MG IV ×5 (01:00→20:13)
[2024-03-29] MEDS: MURO 128/ADSORBONAC 5% EYE DROPS OPHTH ×2 (03:47→14:17)
[2024-03-29 07:00] VITALS: BP 156/82
[2024-03-29 07:21] LABS: Glucose - Point of Care 184 mg/dl (70-99)
[2024-03-29 08:29] LABS: % Basophils 0.8 % (0-2); % Eosinophils 6.8 % (0-6); % Immature Granulocytes 0.3 % (0-0.5); % Lymphocytes 13.7 % (20.5-51.1); % Monocytes 9.2 % (1.7-9.3); % Neutrophils 69.2 % (42.2-75.2); Absolute Basophils 0.1 10^3/uL (0-0.2); Absolute Eosinophils 0.5 10^3/uL (0-0.7); Absolute Lymphocytes 0.9 10^3/uL (1.2-3.4); Absolute Monocytes 0.6 10^3/uL (0.1-0.6); Absolute Neutrophils 4.6 10^3/uL (1.4-6.5); Hematocrit 31.6 % (39.0-52.0); Hemoglobin 9.6 g/dL (13.0-18.0); Mean Corp Hgb Conc. 30.4 g/dL (33.0-37.0); Mean Corpuscular Hgb 29.4 pg (27.0-31.0); Mean Corpuscular Volume 96.9 fL (80.0-94.0); Mean Platelet Volume 10.1 fL (7.4-10.4); Nucleated Red Blood Cells % 0 % (-); Platelet Count 183 10^3/uL (130-400); Red Blood Cell Count 3.26 10^6/uL (4.70-6.10); Red Cell Dist. Width 15.8 % (11.5-14.5); White Blood Cell Count 6.6 10^3/uL (4.8-10.8)
[2024-03-29 08:36] LABS: INR 1.48; PT 18.2 Sec (11.4-14.6)
[2024-03-29 08:38] LABS: APTT 119.2 Sec (23.4-35.0)
[2024-03-29 09:18] LABS: Blood Urea Nitrogen 25 mg/dl (9-20); Calcium 8.2 mg/dl (8.4-10.2); Carbon Dioxide 30 mmol/L (22-30); Chloride 99 mmol/L (98-107); Estimated Creatinine Clearance 18 ml/min; Glucose 137 mg/dl (70-99); Potassium 4.4 mmol/L (3.5-5.1); Sodium 134 mmol/L (135-145); eGFR 16.43
[2024-03-29] MEDS: COLACE PO ×2 (09:47→20:10)
[2024-03-29] MEDS: LIDOCAINE 4% PATCH 1 PATCH TOPICAL (09:47)
[2024-03-29] MEDS: DUPHALAC/CHRONULAC PO ×2 (09:48→20:10)
[2024-03-29] MEDS: MIRALAX PO ×2 (09:48→20:10)
[2024-03-29] MEDS: NSS (PRESERVATIVE FREE) 10 ML IV ×2 (09:53→20:18)
[2024-03-29] MEDS: PROTONIX IV 40 MG IV ×2 (09:53→20:18)
[2024-03-29] MEDS: COREG 6.25 MG PO ×2 (09:54→20:20)
[2024-03-29] MEDS: ZOLOFT 25 MG PO (10:00)
[2024-03-29] MEDS: APRESOLINE 100 MG PO ×3 (10:00→23:53)
[2024-03-29] MEDS: RENVELA 1600 MG PO ×3 (10:01→16:02)
[2024-03-29] MEDS: ROXICODONE 10 MG PO (10:01)
[2024-03-29] MEDS: HEPARIN 25000 UNITS/250 ML IV (10:02)
[2024-03-29] MEDS: NOVOLOG FLEXPEN-MODERATE RESISTANCE 1 UNITS SC ×2 (10:06→17:50)
--- NOTE | 2024-03-29 10:17 | W.PN.UPDATE ---
Update Note
Progress Note Update
Patient seen at bedside, chart reviewed, discussed with staff. Patient is currently experiencing a great deal of back pain and appears quite uncomfortable. RN is to administer AM medications. He denies any s/e form initiation of Zoloft that he is
aware of at this time, He is not much in the mood for chatting related to the pain. Sodium remains stable for now. Patient understands that Zoloft will take some time, up to 6 weeks before benefit could be observed.
Impression/Recommendation: Unspecified depression - continue with Zoloft at 25mg for now, will observe Na levels which is currently stable at 141 and could consider an increase in dose in the next week or two if no contraindications.
[2024-03-29 11:22] LABS: Glucose - Point of Care 250 mg/dl (70-99)
--- NOTE | 2024-03-29 12:30 | W.PN.NEPH.PH ---
Today's Communication / Plan
-
Dialysis tomorrow
Assessment/Plan
-
Impression:
coffee-ground emesis -GIB /portal gastropathy/
Recent hospitalization with life-threatening gastrointestinal hemorrhage
Accelerated hypertension secondary to volume overload.
Recurrent ascites
hypoglycemia
Coumadin Coagulopathy
Hyperkalemia
Metabolic Acidosis
ESRD on hemodialysis at [facility], previously TTS [facility]
Anemia of ESRD
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
Paroxysmal Atrial Fibrillation
Chronic HFpEF
History of bilateral pleural effusions status post thoracentesis
History of pericardial effusion status post pericardiocentesis
Coronary artery disease
Essential hypertension
DM2 with multiple microvascular complications
Hyperlipidemia
Spinal stenosis
Anxiety/depression
L radial AVF
Plan:
Dialysis tomorrow
A/w hematemesis from NH
Hemodynamically more stable
Maintain coreg for portal gastropathy
clonidine changed to patch this admit
He has multiple admits recently mainly for decompensated liver disease, non adherence to HD suggest over all long-term prognosis is poor
DNR
-
-
Date of Service: March 29, 2024
CC / HPI / ROS
-
Chief Complaint:
ESRD
History of Present Illness:
Hemoglobin down to 9.6
BP elevated (still holding procardia)
ESRD Thursday
Review of Systems:
tolerating diet
c/o chr back pain
no n/v. no abd pain
No fevers
Labs
-
Labs:
WBC 6.6 10^3/uL (4.8-10.8) 03/29/24 07:58
RBC 3.26 10^6/uL (4.70-6.10) L 03/29/24 07:58
Hgb 9.6 g/dL (13.0-18.0) L 03/29/24 07:58
Hct 31.6 % (39.0-52.0) L 03/29/24 07:58
Plt Count 183 10^3/uL (130-400) 03/29/24 07:58
Sodium 134 mmol/L (135-145) L 03/29/24 07:58
Potassium 4.4 mmol/L (3.5-5.1) 03/29/24 07:58
Chloride 99 mmol/L (98-107) 03/29/24 07:58
Carbon Dioxide 30 mmol/L (22-30) 03/29/24 07:58
BUN 25 mg/dl (9-20) H 03/29/24 07:58
Creatinine 4.0 mg/dL (0.7-1.3) H 03/29/24 07:58
eGFR 16.43 03/29/24 07:58
Glucose 137 mg/dl (70-99) H 03/29/24 07:58
Calcium 8.2 mg/dl (8.4-10.2) L 03/29/24 07:58
Albumin 2.3 g/dl (3.5-5.0) L 03/25/24 05:43
Physical Exam
-
Vital Signs:
Vital Signs
Temp Pulse Resp BP Pulse Ox
98.4 F 92 16 156/82 98
03/29/24 07:00 03/29/24 07:00 03/29/24 07:00 03/29/24 07:00 03/29/24 07:00
Cardiovascular:: Regular rate and rhythm
Respiratory:: Bilateral: CTA
Lung Excursion:: Normal
Abdomen:: Distended, Nontender and Soft
Extremity Edema:: None: Bilateral: (trace)
Alfred Catheter: No
[2024-03-29 12:55] VITALS: BP 167/79; PULSE 89; O2SAT 99
[2024-03-29 13:09] VITALS: BP 143/78
--- NOTE | 2024-03-29 13:24 | W.PN.HOSP.TC ---
Today's Communication/Plan
-
Warfarin 5 mg tonight, repeat INR tomorrow, continue heparin in the interim
Serial abdomen exams
Assessment / Plan
Assessment / Plan
#Ileus
-Improved/resolved, had significant bowel movements over previous days
-Per surgery likelyrelated to multiple abdominal paracentesis and narcotics
-Continue low residue diet with diabetic and fluid restrictions
-Continue bowel regimen with MiraLAX/Colace/lactulose BID
-PT OT eval
-software project manager for discharge disposition
#Chronic pain with opioid dependence
-On fentanyl patch and IV Dilaudid
-Added oxycodone as needed
#Recurrent ascites
-Multiple abdominal paracentesis; previous fluid studies showed SAAG >1.3 consistent with portal hypertension, no signs of SBP per PMN percentage
-Last paracentesis on 03/22 no evidence of SBP (over 6 L), Negative culture from abdominal paracentesis fluid on 03/18 as well
-Was on course of antibiotics for SBP prophylaxis due to decompensated cirrhosis with ascites, now off antibiotics
-No signs of significant reaccumulation as of this more
#hematemesis
#Grade 1 esophageal
-GI has been on consult, low suspicion for variceal bleed, more likely due to abdominal pressure in the context of ascites
-Last upper endoscopy on 03/19 shows grade 1 esophageal varices with severe portal hypertensive gastropathy and friable mucosa and small hiatal hernia but no active bleed.
-Given octreotide, Protonix, Kcentra in the ED upon admission
-Currently on Protonix 40 mg IV twice a day, plan for oral at discharge
-Was started on carvedilol for reduction of portal hypertension
-CBC with stable hemoglobin
#Paroxysmal atrial fibrillation
-Home medications include beta-alison, warfarin
-Warfarin initially held for hematemesis, resumed on AC with heparin drip subsequently
-Initially plan to transition to DOAC such as due to noncompliance issues however patient cannot afford
-Currently on IV heparin bridge to warfarin, INR 1.41 this morning
-Ordered 5 mg of warfarin for this evening, repeat INR tomorrow
-INR goal 2-3, plan to DC heparin when at goal
#Hypertension
-Current medications include carvedilol, clonidine patch, hydralazine, nifedipine
-His blood pressure can go very high if he does not take his multiple agents so monitor closely
-Remains on as needed IV hydralazine for spikes in blood pressure
-Continue to monitor vitals and titrate antihypertensive regimen according
#End-stage renal disease
-Unclear etiology, currently on hemodialysis sessions every Thursday/Thursday/Thursday
-Complicated by anemia of CKD and bone mineral disease; on sevelamer; received EPO here
-Continue with HD as currently scheduled, trend BMP
#Depression:
-Psych started him on Zoloft 25 mg daily
#Type 2 diabetes with hypoglycemia
-No recent A1c; Home medications include insulin lispro
-Was hypoglycemic initially, likely hepatic dysfunction and issues with liberating glucose
-Standing dose insulin was held, started on sliding scale with Accu-Cheks
-Glucose has been improved and within goal on sliding scale and only
#HFpEF
-Unclear etiology, likely associated with volume overload in the setting of dialysis
-Not currently on SGLT2 inhibitor, is on an MRA for his cirrhosis with ascites
-Seems euvolemic today following dialysis and paracentesis yesterday
#CAD status post PCI (2015)
#PAD s/p femoropopliteal bypass
-Home medications include high intensity statin; not currently on any antiplatelet agents though is on warfarin as above
-No signs or symptoms of coronary ischemia nor limb ischemia during this hospitalization
#Chronic pain due to spinal stenosis
-Chronic ambulatory dysfunction
-Continue oxycodone with caution for oversedation.
-Physical therapy assessment once stable.
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
-Was transition back to oral PPI twice daily after EGD for likely Dunlap's
-Will need to follow-up outpatient for repeat EGD +/- EUS
#Cirrhosis
-Unclear etiology though suspected from SEN versus alcohol versus viral hepatitis
-MELD score unreliable due to hemodialysis requirements, previous treatment with warfarin but likely high
-Complicated by grade 1 varices and ascites as above; unclear if HRS led to his ESRD
-Will continue to monitor CMP and INR
DVT prophylaxis: Heparin drip
Diet: Renal diet
CODE STATUS: Full code
Anticipated Discharge: 24 - 48 hours
DVT prophylaxis: heparin drip -> Warfarin
Diet: Renal
CODE STATUS: DNR
Anticipated Discharge: 24 - 48 hours
Subjective/Interval History
-
Date of Service: March 29, 2024
Seen and examined at bedside. No acute events reported overnight. AFVSS this morning
States he feels about the same as every other day. Abdomen does seem slightly more distended today than yesterday. Denies significant abdomen discomfort
Denies any acute medical complaints. He does request for de-escalation of his dietary restrictions as he is not happy with his options when selecting meals
Objective Data
-
Labs:
Laboratory Results
03/29/24
07:58
WBC 6.6
Hgb 9.6 L
Hct 31.6 L
Plt Count 183
PT 18.2 H
INR 1.48
APTT 119.2 H
Sodium 134 L
Potassium 4.4
Chloride 99
Carbon Dioxide 30
BUN 25 H
Creatinine 4.0 H
Glucose 137 H
Calcium 8.2 L
Vital Signs:
Vital Signs
Temp Pulse Resp BP Pulse Ox
98.4 F 92 16 156/82 98
03/29/24 07:00 03/29/24 07:00 03/29/24 07:00 03/29/24 07:00 03/29/24 07:00
I&O
03/28/24 03/29/2424
06:59 06:59 06:59
Intake Total 940 / 940 1060 / 1060
Balance 940 / 940 1060 / 1060
Review of Systems
-
History Source: Patient
All other systems: Reviewed and negative
Physical Exam
-
General: Well Developed, No Apparent Distress, Comfortable and Appears Chronically Ill
HEENT: Normocephalic, Atraumatic and Moist Mucous Membranes
Respiratory: Clear to Auscultation and Non Labored Respirations
Cardiac: Regular Rhythm and S1/S2; Negative Murmur, Rub or Gallop
GI: Soft, Nontender, Normal Bowel Sounds and Distended (Mildly)
Musculoskeletal: No Clubbing, No Cyanosis and No Edema
Skin: Warm and Dry; Negative Rash
Neuro: AO x 3 and Nonfocal/Grossly Intact
Psych: Calm
Data Reviewed
-
Labs: Labs Reviewed by me, Discussed with Nurse and Discussed with Patient
[2024-03-29] MEDS: NOVOLOG FLEXPEN-MODERATE RESISTANCE 5 UNITS SC (14:27)
[2024-03-29 15:00] VITALS: BP 144/74
--- NOTE | 2024-03-29 15:33 | CM ---
Patient seen at bedside
INR 1.48 today
cont on heparin gtt
Updated María Elena at [facility]
transportation forms on chart
PLAN: [facility], will need to obtain insurance authorization
Report #: [id number]
Fax #: [phone]
transportation forms on chart
[2024-03-29 17:13] LABS: Glucose - Point of Care 151 mg/dl (70-99)
[2024-03-29] MEDS: COUMADIN 5 MG PO (17:47)
[2024-03-29 23:14] LABS: Glucose - Point of Care 109 mg/dl (70-99)
[2024-03-29 23:15] VITALS: BP 165/83
[2024-03-29] MEDS: LIPITOR 80 MG PO (23:53)
[2024-03-30] MEDS: DILAUDID 0.5 MG IV ×3 (00:43→12:42)
[2024-03-30 04:06] LABS: APTT 110.9 Sec (23.4-35.0)
[2024-03-30] MEDS: MURO 128/ADSORBONAC 5% EYE DROPS OPHTH ×3 (05:00→12:45)
[2024-03-30 05:30] VITALS: BMI 21.2
[2024-03-30] MEDS: HEPARIN 25000 UNITS/250 ML IV (05:38)
[2024-03-30 07:20] VITALS: BP 125/83
[2024-03-30 07:55] LABS: Glucose - Point of Care 122 mg/dl (70-99)
[2024-03-30 08:31] LABS: % Basophils 0.9 % (0-2); % Eosinophils 7.5 % (0-6); % Immature Granulocytes 0.4 % (0-0.5); % Lymphocytes 12.9 % (20.5-51.1); % Neutrophils 70.3 % (42.2-75.2); Absolute Basophils 0.1 10^3/uL (0-0.2); Absolute Eosinophils 0.5 10^3/uL (0-0.7); Absolute Lymphocytes 0.9 10^3/uL (1.2-3.4); Absolute Monocytes 0.6 10^3/uL (0.1-0.6); Absolute Neutrophils 4.9 10^3/uL (1.4-6.5); Hematocrit 28.7 % (39.0-52.0); Hemoglobin 9.1 g/dL (13.0-18.0); Mean Corp Hgb Conc. 31.7 g/dL (33.0-37.0); Mean Corpuscular Hgb 29.9 pg (27.0-31.0); Mean Corpuscular Volume 94.4 fL (80.0-94.0); Mean Platelet Volume 9.7 fL (7.4-10.4); Nucleated Red Blood Cells % 0 % (-); Platelet Count 204 10^3/uL (130-400); Red Blood Cell Count 3.04 10^6/uL (4.70-6.10); Red Cell Dist. Width 15.9 % (11.5-14.5); White Blood Cell Count 6.9 10^3/uL (4.8-10.8)
[2024-03-30 08:39] LABS: PT 23.2 Sec (11.4-14.6)
[2024-03-30 08:41] LABS: APTT 101.2 Sec (23.4-35.0)
[2024-03-30 09:10] LABS: Blood Urea Nitrogen 36 mg/dl (9-20); Calcium 8.2 mg/dl (8.4-10.2); Carbon Dioxide 27 mmol/L (22-30); Chloride 99 mmol/L (98-107); Estimated Creatinine Clearance 16 ml/min; Glucose 119 mg/dl (70-99); Sodium 135 mmol/L (135-145); eGFR 12.88
[2024-03-30] MEDS: RETACRIT 6000 UNITS IV (09:17)
[2024-03-30] MEDS: NOVOLOG FLEXPEN-MODERATE RESISTANCE SC ×2 (10:12→12:46)
[2024-03-30] MEDS: APRESOLINE PO (10:15)
[2024-03-30] MEDS: DUPHALAC/CHRONULAC PO (10:15)
[2024-03-30] MEDS: COLACE PO (10:15)
[2024-03-30] MEDS: COREG PO (10:15)
[2024-03-30] MEDS: MIRALAX PO ×2 (10:17→20:34)
[2024-03-30] MEDS: RENVELA PO (10:17)
[2024-03-30 10:48] LABS: APTT 157.6 Sec (23.4-35.0)
[2024-03-30 11:14] LABS: Glucose - Point of Care 112 mg/dl (70-99)
--- NOTE | 2024-03-30 11:29 | W.PN.NEPH.HD ---
Assessment
-
seen on HD. no complaints. VSS, access ok
Progress Note - Hemodialysis
-
Date of Service: March 30, 2024
Duration: 30 minutes and 3 hours
Potassium Bath: 2
Calcium Bath: 2.5
Opti-Dialyzer: 160
Ultrafiltration: Other (1kg)
Blood Flow: 400
Dialysate Flow: 600
Heparin: 0
EPO: 6000 units
--- NOTE | 2024-03-30 11:58 | W.PN.UPDATE ---
Update Note
Progress Note Update
patient seen chart reviewed. spoke with nursing. mr jose has definitely made some improvements since last seen by this food writer but his life is very stressful and he struggles. he had been living with his family but his care was too much for
them. he is at [facility] now and realizes that is where he needs to be. he is often in a lot of pain. nursing tells me she is getting his opiate orders rewritten. we discussed increase in zoloft. he was on at least 50 mg in the past and he did
feel it helped. would not wait until next week at this point. will bring him some word searches to try and take his mind off things. will follow and offer support.
--- NOTE | 2024-03-30 12:21 | W.PN.HOSP.TC ---
Today's Communication/Plan
-
DC heparin at 5 PM, 3 mg warfarin at 6 PM
Repeat INR tomorrow
Transition to oral pain regimen
Assessment / Plan
Assessment / Plan
#Paroxysmal atrial fibrillation
#Subtherapeutic INR
-Home medications include beta-alison, warfarin
-Warfarin initially held for hematemesis, resumed on AC with heparin drip subsequently
-Initially plan to transition to DOAC such as due to noncompliance issues however patient cannot afford
-Currently on IV heparin bridge to warfarin, INR 1.41 this morning
-S/p 5 mg warfarin doses, INR 2.0 today
-DC heparin drip at 5 PM, 3 mg warfarin at 6 PM
-Continue to trend INR here
#Ileus
-Improved/resolved, had significant bowel movements over previous days
-Per surgery likelyrelated to multiple abdominal paracentesis and narcotics
-Continue low residue diet with diabetic and fluid restrictions
-Continue bowel regimen with MiraLAX/Colace/lactulose BID
-manager behavior for discharge disposition
#Chronic pain with opioid dependence
-On fentanyl patch and IV Dilaudid
-Added oxycodone as needed
#Recurrent ascites
-Multiple abdominal paracentesis; previous fluid studies showed SAAG >1.3 consistent with portal hypertension, no signs of SBP per PMN percentage
-Last paracentesis on 03/22 no evidence of SBP (over 6 L), Negative culture from abdominal paracentesis fluid on 03/18 as well
-Was on course of antibiotics for SBP prophylaxis due to decompensated cirrhosis with ascites, now off antibiotics
-No signs of significant reaccumulation as of this more
#hematemesis
#Grade 1 esophageal
-GI has been on consult, low suspicion for variceal bleed, more likely due to abdominal pressure in the context of ascites
-Last upper endoscopy on 03/19 shows grade 1 esophageal varices with severe portal hypertensive gastropathy and friable mucosa and small hiatal hernia but no active bleed.
-Given octreotide, Protonix, Kcentra in the ED upon admission
-Currently on Protonix 40 mg IV twice a day, plan for oral at discharge
-Was started on carvedilol for reduction of portal hypertension
-CBC with stable hemoglobin
#Hypertension
-Current medications include carvedilol, clonidine patch, hydralazine, nifedipine
-His blood pressure can go very high if he does not take his multiple agents so monitor closely
-Remains on as needed IV hydralazine for spikes in blood pressure
-Continue to monitor vitals and titrate antihypertensive regimen according
#End-stage renal disease
-Unclear etiology, currently on hemodialysis sessions every Thursday/Thursday/Thursday
-Complicated by anemia of CKD and bone mineral disease; on sevelamer; received EPO here
-Continue with HD as currently scheduled, trend BMP
#Depression:
-Psych started him on Zoloft 25 mg daily
#Type 2 diabetes with hypoglycemia
-No recent A1c; Home medications include insulin lispro
-Was hypoglycemic initially, likely hepatic dysfunction and issues with liberating glucose
-Standing dose insulin was held, started on sliding scale with Accu-Cheks
-Glucose has been improved and within goal on sliding scale and only
#HFpEF
-Unclear etiology, likely associated with volume overload in the setting of dialysis
-Not currently on SGLT2 inhibitor, is on an MRA for his cirrhosis with ascites
-Seems euvolemic today following dialysis and paracentesis yesterday
#CAD status post PCI (2015)
#PAD s/p femoropopliteal bypass
-Home medications include high intensity statin; not currently on any antiplatelet agents though is on warfarin as above
-No signs or symptoms of coronary ischemia nor limb ischemia during this hospitalization
#Chronic pain due to spinal stenosis
-Chronic ambulatory dysfunction
-Physical therapy assessment once stable.
-Transition IV to oral Dilaudid regimen
-Will need foxing painter at discharge
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
-Was transition back to oral PPI twice daily after EGD for likely Dunlap's
-Will need to follow-up outpatient for repeat EGD +/- EUS
#Cirrhosis
-Unclear etiology though suspected from SEN versus alcohol versus viral hepatitis
-MELD score unreliable due to hemodialysis requirements, previous treatment with warfarin but likely high
-Complicated by grade 1 varices and ascites as above; unclear if HRS led to his ESRD
-Will continue to monitor CMP and INR
DVT prophylaxis: Heparin drip
Diet: Renal diet
CODE STATUS: Full code
DVT prophylaxis: heparin drip -> Warfarin
Diet: Renal
CODE STATUS: DNR
Anticipated Discharge: Within 24 hours
Subjective/Interval History
-
Date of Service: March 30, 2024
Seen and examined at the bedside. No acute events reported overnight. AFVSS this morning
INR returned at 2.0. Scheduled for dialysis today. Still having ongoing pain and requests IV Dilaudid. Will transition to oral Dilaudid regimen
Denies any other acute complaints
Objective Data
-
Labs:
Laboratory Results
03/30/24 03/30/24 03/30/24
03:46 08:17 09:59
WBC 6.9
Hgb 9.1 L
Hct 28.7 L
Plt Count 204
PT 23.2 H
INR 2.00
APTT 110.9 H 101.2 H 157.6 H*
Sodium 135
Potassium 5.0
Chloride 99
Carbon Dioxide 27
BUN 36 H
Creatinine 4.9 H*
Glucose 119 H
Calcium 8.2 L
Vital Signs:
Vital Signs
Temp Pulse Resp BP Pulse Ox
97.5 F 87 17 125/83 98
03/30/24 07:20 03/30/24 07:20 03/30/24 07:20 03/30/24 07:20 03/30/24 07:20
I&O
03/29/24 03/30/24 03/31/24
06:59 06:59 06:59
Intake Total 1060 / 1060 390 / 390
Balance 1060 / 1060 390 / 390
Review of Systems
-
History Source: Patient
All other systems: Reviewed and negative
Physical Exam
-
General: Well Developed, No Apparent Distress, Comfortable, Appears Chronically Ill and Other (Thin and frail)
HEENT: Normocephalic, Atraumatic, Moist Mucous Membranes and Anicteric
Respiratory: Clear to Auscultation and Non Labored Respirations
Cardiac: Regular Rhythm and S1/S2; Negative Murmur, Rub or Gallop
GI: Soft, Nontender, Nondistended and Normal Bowel Sounds
Musculoskeletal: No Clubbing, No Cyanosis and No Edema
Skin: Warm, Dry and Normal Turgor; Negative Rash
Neuro: AO x 3 and Nonfocal/Grossly Intact
Psych: Calm
[2024-03-30] MEDS: LIDOCAINE 4% PATCH 1 PATCH TOPICAL (12:45)
[2024-03-30] MEDS: PROTONIX IV 40 MG IV ×2 (12:46→20:33)
[2024-03-30] MEDS: NSS (PRESERVATIVE FREE) 10 ML IV ×2 (12:46→20:33)
[2024-03-30] MEDS: ZOLOFT PO (12:57)
[2024-03-30] MEDS: RENVELA 1600 MG PO ×2 (13:03→17:10)
[2024-03-30] MEDS: ZOLOFT 50 MG PO (13:04)
[2024-03-30 15:05] VITALS: BP 139/66
--- NOTE | 2024-03-30 15:59 | CM ---
Addendum entered by Isidra Slater 03/30/24 16:46:
end date 04/06 - notified María Elena carias at [place]
Fax updates to [phone]
Original Note:
INR 2.0 today
[employer] Authorization (through [employer]) approved starting 03/31
Certification #: [id number]
Updated María Elena liaison with Cert #
PLAN: [facility]
Report #: [phone]
Fax #: [phone]
transportation forms on chart
[2024-03-30 16:33] LABS: Glucose - Point of Care 216 mg/dl (70-99)
[2024-03-30] MEDS: MURO 128/ADSORBONAC 5% EYE DROPS 1 DROP OPHTH ×2 (17:13→20:34)
[2024-03-30] MEDS: APRESOLINE 100 MG PO ×2 (17:13→23:20)
[2024-03-30] MEDS: NOVOLOG FLEXPEN-MODERATE RESISTANCE 3 UNITS SC (17:14)
[2024-03-30] MEDS: COUMADIN 3 MG PO (17:15)
[2024-03-30] MEDS: DILAUDID 2 MG PO ×2 (17:18→23:20)
[2024-03-30] MEDS: DUPHALAC/CHRONULAC 20 GRAMS PO (20:29)
[2024-03-30] MEDS: COLACE 100 MG PO (20:29)
[2024-03-30] MEDS: COREG 6.25 MG PO (20:31)
[2024-03-30 21:29] LABS: Glucose - Point of Care 239 mg/dl (70-99)
[2024-03-30 23:15] VITALS: BP 157/77
[2024-03-30] MEDS: LIPITOR 80 MG PO (23:20)
[2024-03-31] MEDS: MURO 128/ADSORBONAC 5% EYE DROPS OPHTH ×3 (00:24→12:13)
[2024-03-31] MEDS: MIRALAX PO ×2 (00:30→08:50)
[2024-03-31 06:00] VITALS: BMI 21.2
[2024-03-31] MEDS: DILAUDID 2 MG PO ×2 (06:30→12:46)
[2024-03-31 07:16] LABS: % Basophils 0.8 % (0-2); % Eosinophils 5.4 % (0-6); % Immature Granulocytes 0.2 % (0-0.5); % Lymphocytes 12.9 % (20.5-51.1); % Monocytes 11.1 % (1.7-9.3); % Neutrophils 69.6 % (42.2-75.2); Absolute Basophils 0.1 10^3/uL (0-0.2); Absolute Eosinophils 0.3 10^3/uL (0-0.7); Absolute Lymphocytes 0.8 10^3/uL (1.2-3.4); Absolute Monocytes 0.7 10^3/uL (0.1-0.6); Absolute Neutrophils 4.4 10^3/uL (1.4-6.5); Hematocrit 29.1 % (39.0-52.0); Hemoglobin 9.1 g/dL (13.0-18.0); Mean Corp Hgb Conc. 31.3 g/dL (33.0-37.0); Mean Corpuscular Hgb 30.2 pg (27.0-31.0); Mean Corpuscular Volume 96.7 fL (80.0-94.0); Mean Platelet Volume 10.3 fL (7.4-10.4); Nucleated Red Blood Cells % 0 % (-); Platelet Count 209 10^3/uL (130-400); Red Blood Cell Count 3.01 10^6/uL (4.70-6.10); White Blood Cell Count 6.3 10^3/uL (4.8-10.8)
[2024-03-31 07:20] VITALS: BP 157/73
[2024-03-31 07:23] LABS: Glucose - Point of Care 165 mg/dl (70-99)
[2024-03-31 07:23] LABS: INR 2.21
[2024-03-31 07:43] LABS: Blood Urea Nitrogen 26 mg/dl (9-20); Carbon Dioxide 32 mmol/L (22-30); Chloride 100 mmol/L (98-107); Estimated Creatinine Clearance 20 ml/min; Glucose 127 mg/dl (70-99); Potassium 4.2 mmol/L (3.5-5.1); Sodium 136 mmol/L (135-145); eGFR 17.47
[2024-03-31] MEDS: NSS (PRESERVATIVE FREE) 10 ML IV (08:38)
[2024-03-31] MEDS: LIDOCAINE 4% PATCH TOPICAL ×2 (08:38→08:59)
[2024-03-31] MEDS: APRESOLINE 100 MG PO (08:39)
[2024-03-31] MEDS: PROTONIX IV 40 MG IV (08:39)
[2024-03-31] MEDS: RENVELA 1600 MG PO ×2 (08:39→12:45)
[2024-03-31] MEDS: MURO 128/ADSORBONAC 5% EYE DROPS 1 DROP OPHTH (08:39)
[2024-03-31] MEDS: NOVOLOG FLEXPEN-MODERATE RESISTANCE 1 UNITS SC (08:46)
[2024-03-31] MEDS: COREG 6.25 MG PO (08:47)
[2024-03-31] MEDS: ZOLOFT 50 MG PO (08:47)
[2024-03-31] MEDS: COLACE 100 MG PO (08:50)
[2024-03-31] MEDS: DUPHALAC/CHRONULAC PO (08:50)
--- NOTE | 2024-03-31 10:20 | W.PN.HOSP.TC ---
Today's Communication/Plan
-
Discharge to SNF
Assessment / Plan
Assessment / Plan
#Paroxysmal atrial fibrillation
#Subtherapeutic INR
-Home medications include beta-alison, warfarin
-Warfarin initially held for hematemesis, resumed on AC with heparin drip subsequently
-Initially plan to transition to DOAC such as due to noncompliance issues however patient cannot afford
-Currently on IV heparin bridge to warfarin, INR 1.41 this morning
-S/p 5 mg warfarin doses, INR 2.0 today
-Continued on home dose warfarin 3 mg every evening
-Continue to trend INR here
#Ileus
-Improved/resolved, had significant bowel movements over previous days
-Per surgery likelyrelated to multiple abdominal paracentesis and narcotics
-Continue low residue diet with diabetic and fluid restrictions
-Continue bowel regimen with MiraLAX/Colace/lactulose BID
-manager ccu for discharge disposition
#Chronic pain with opioid dependence
-On fentanyl patch and IV Dilaudid
-Added oxycodone as needed
#Recurrent ascites
-Multiple abdominal paracentesis; previous fluid studies showed SAAG >1.3 consistent with portal hypertension, no signs of SBP per PMN percentage
-Last paracentesis on 03/22 no evidence of SBP (over 6 L), Negative culture from abdominal paracentesis fluid on 03/18 as well
-Was on course of antibiotics for SBP prophylaxis due to decompensated cirrhosis with ascites, now off antibiotics
-No signs of significant reaccumulation as of this more
#hematemesis
#Grade 1 esophageal
-GI has been on consult, low suspicion for variceal bleed, more likely due to abdominal pressure in the context of ascites
-Last upper endoscopy on 03/19 shows grade 1 esophageal varices with severe portal hypertensive gastropathy and friable mucosa and small hiatal hernia but no active bleed.
-Given octreotide, Protonix, Kcentra in the ED upon admission
-Currently on Protonix 40 mg IV twice a day, plan for oral at discharge
-Was started on carvedilol for reduction of portal hypertension
-CBC with stable hemoglobin
#Hypertension
-Current medications include carvedilol, clonidine patch, hydralazine, nifedipine
-His blood pressure can go very high if he does not take his multiple agents so monitor closely
-Remains on as needed IV hydralazine for spikes in blood pressure
-Continue to monitor vitals and titrate antihypertensive regimen according
#End-stage renal disease
-Unclear etiology, currently on hemodialysis sessions every Thursday/Thursday/Thursday
-Complicated by anemia of CKD and bone mineral disease; on sevelamer; received EPO here
-Continue with HD as currently scheduled, trend BMP
#Depression:
-Psych started him on Zoloft 25 mg daily
#Type 2 diabetes with hypoglycemia
-No recent A1c; Home medications include insulin lispro
-Was hypoglycemic initially, likely hepatic dysfunction and issues with liberating glucose
-Standing dose insulin was held, started on sliding scale with Accu-Cheks
-Glucose has been improved and within goal on sliding scale and only
#HFpEF
-Unclear etiology, likely associated with volume overload in the setting of dialysis
-Not currently on SGLT2 inhibitor, is on an MRA for his cirrhosis with ascites
-Seems euvolemic today following dialysis and paracentesis yesterday
#CAD status post PCI (2015)
#PAD s/p femoropopliteal bypass
-Home medications include high intensity statin; not currently on any antiplatelet agents though is on warfarin as above
-No signs or symptoms of coronary ischemia nor limb ischemia during this hospitalization
#Chronic pain due to spinal stenosis
-Chronic ambulatory dysfunction
-Physical therapy assessment once stable.
-Transition IV to oral Dilaudid regimen, tolerating well
-Will need film painter at discharge
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
-Was transition back to oral PPI twice daily after EGD for likely Dunlap's
-Will need to follow-up outpatient for repeat EGD +/- EUS
#Cirrhosis
-Unclear etiology though suspected from SEN versus alcohol versus viral hepatitis
-MELD score unreliable due to hemodialysis requirements, previous treatment with warfarin but likely high
-Complicated by grade 1 varices and ascites as above; unclear if HRS led to his ESRD
-Will continue to monitor CMP and INR
DVT prophylaxis: Heparin drip
Diet: Renal diet
CODE STATUS: Full code
DVT prophylaxis: Warfarin
Diet: Renal
CODE STATUS: DNR
Anticipated Discharge: Today
Subjective/Interval History
-
Date of Service: March 31, 2024
Seen and examined bedside. No acute events reported overnight. AFVSS this morning
INR remains at goal. Pain well-controlled on oral hydromorphone regimen.
No acute complaints.
Objective Data
-
Labs:
Laboratory Results
03/31/24
06:31
WBC 6.3
Hgb 9.1 L
Hct 29.1 L
Plt Count 209
PT 25.0 H
INR 2.21
Sodium 136
Potassium 4.2
Chloride 100
Carbon Dioxide 32 H
BUN 26 H
Creatinine 3.8 H
Glucose 127 H
Calcium 8.0 L
Vital Signs:
Vital Signs
Temp Pulse Resp BP Pulse Ox
98.1 F 87 18 157/73 97
03/31/24 07:20 03/31/24 07:20 03/31/24 07:20 03/31/24 08:39 03/31/24 07:20
I&O
03/30/24 03/31/24 04/01/24
06:59 06:59 06:59
Intake Total 390 / 390 1120 / 1120
Balance 390 / 390 1120 / 1120
Review of Systems
-
History Source: Patient
All other systems: Reviewed and negative
Physical Exam
-
General: Well Developed, No Apparent Distress, Comfortable and Appears Chronically Ill
HEENT: Normocephalic, Atraumatic, Moist Mucous Membranes and Anicteric
Respiratory: Clear to Auscultation and Non Labored Respirations
Cardiac: Regular Rhythm and S1/S2; Negative Murmur, Rub or Gallop
GI: Soft, Nontender, Nondistended and Normal Bowel Sounds
Musculoskeletal: No Clubbing, No Cyanosis and No Edema
Skin: Warm, Dry and Normal Turgor; Negative Rash
Neuro: AO x 3 and Nonfocal/Grossly Intact
Psych: Calm
Data Reviewed
-
Labs: Labs Reviewed by me and Discussed with Patient
--- NOTE | 2024-03-31 11:03 | W.PN.NEPH.PH ---
Today's Communication / Plan
-
Dialysis tomorrow
Assessment/Plan
-
Impression:
coffee-ground emesis -GIB /portal gastropathy/
Recent hospitalization with life-threatening gastrointestinal hemorrhage
Accelerated hypertension secondary to volume overload.
Recurrent ascites
hypoglycemia
Coumadin Coagulopathy
Hyperkalemia
Metabolic Acidosis
ESRD on hemodialysis at [facility], previously TTS [facility]
Anemia of ESRD
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
Paroxysmal Atrial Fibrillation
Chronic HFpEF
History of bilateral pleural effusions status post thoracentesis
History of pericardial effusion status post pericardiocentesis
Coronary artery disease
Essential hypertension
DM2 with multiple microvascular complications
Hyperlipidemia
Spinal stenosis
Anxiety/depression
L radial AVF
Plan:
Dialysis tomorrow
Restart Procardia daily
-
-
Date of Service: March 31, 2024
CC / HPI / ROS
-
Chief Complaint:
ESRD
History of Present Illness:
Hemoglobin down to 9.1
BP elevated (still holding procardia)
ESRD Thursday
Tolerated dialysis yesterday
Review of Systems:
tolerating diet
c/o chr back pain
no n/v. no abd pain
No fevers
Labs
-
Labs:
WBC 6.3 10^3/uL (4.8-10.8) 03/31/24 06:31
RBC 3.01 10^6/uL (4.70-6.10) L 03/31/24 06:31
Hgb 9.1 g/dL (13.0-18.0) L 03/31/24 06:31
Hct 29.1 % (39.0-52.0) L 03/31/24 06:31
Plt Count 209 10^3/uL (130-400) 03/31/24 06:31
Sodium 136 mmol/L (135-145) 03/31/24 06:31
Potassium 4.2 mmol/L (3.5-5.1) 03/31/24 06:31
Chloride 100 mmol/L (98-107) 03/31/24 06:31
Carbon Dioxide 32 mmol/L (22-30) H 03/31/24 06:31
BUN 26 mg/dl (9-20) H 03/31/24 06:31
Creatinine 3.8 mg/dL (0.7-1.3) H 03/31/24 06:31
eGFR 17.47 03/31/24 06:31
Glucose 127 mg/dl (70-99) H 03/31/24 06:31
Calcium 8.0 mg/dl (8.4-10.2) L 03/31/24 06:31
Albumin 2.3 g/dl (3.5-5.0) L 03/25/24 05:43
Physical Exam
-
Vital Signs:
Vital Signs
Temp Pulse Resp BP Pulse Ox
98.1 F 87 18 157/73 97
03/31/24 07:20 03/31/24 07:20 03/31/24 07:20 03/31/24 08:39 03/31/24 07:20
Cardiovascular:: Regular rate and rhythm
Respiratory:: Bilateral: Coarse
Lung Excursion:: Normal
Abdomen:: Nontender and Soft
Bowel Sounds:: Normal
Extremity Edema:: None: Bilateral:
--- NOTE | 2024-03-31 11:09 | W.PN.UPDATE ---
Update Note
Progress Note Update
patient seen chart reviewed. discussed with nursing. mr damon was more interactive. his appetite has certainly improved. he had eaten everything on his tray. we talked about what it is like for him to be on dialysis. he prefers dialysis in
the hospital which is more relaxed and he does not have to 'go anywhere'. at [facility] dialysis is in the basement and getting from point a to point b is not always easy or pleasant. he does not have many people to talk to in placement although
family is somewhat engaged. he busies himself watching sports and doing word searches. no issues w zoloft at this point. it is too soon to see an effect. would consider if his depression worsens increasing dose but at this point even thought it is
early ...he's on been on it for about a week or so he does seem a bit better likely due to resolution of ileus. psych will sign off as he is likely leaving tomorrow
--- NOTE | 2024-03-31 12:31 | CM ---
Patient to return to [facility] today
2pm transport.
María Elena liaison notified.
Authorization approved
Start 03/31/24 NRD 04/06
INSURANCE AUTH APPROVED CERTIFICATION #: [id number]
PLAN: [facility]
Report #: [id number]
Fax #: [phone]
transportation forms on chart - 2pm transport
[2024-03-31 12:50] LABS: Glucose - Point of Care 237 mg/dl (70-99)
--- NOTE | 2024-03-31 14:29 | W.DCSUMMARY ---
Discharge Summary
Discharge Data
Date of Admission: 03/16/24
Date of Discharge: 03/31/24
-
Pending Results: No
Hospital Course
58-year-old male with ESRD (HD M/W/F), cirrhosis (due to SEN/EtOH, C/B ascites and varices), paroxysmal AF on warfarin, CAD s/p PCI, IDDM, hypertension, dyslipidemia that presented to the ED on 03/16/2024 with the complaint of coffee-ground emesis.
Was started on IV PPI drip, octreotide drip, warfarin held, evaluated by GI. Started on ceftriaxone for SBP prophylaxis in the context of decompensated ascites as well. Underwent multiple paracenteses throughout the hospital stay, ascites
eventually stabilized without significant reaccumulation. Underwent EGD that did not show any active variceal bleed (grade 1), did show signs of portal hypertensive gastropathy with bleeding. Transition to oral PPI, resumed on anticoagulation with
IV heparin bridged back to warfarin regimen. Was started on carvedilol for reduction of portal hypertension and prevention of variceal bleeding. Eventually transition to oral analgesic regimen for his chronic pain related to spinal stenosis.
Referral provided for pain management at discharge. Developed ileus while in the hospital from recurrent paracentesis. Resolved with bowel regimen including lactulose, MiraLAX, Colace which should be continued at discharge.
Discharge Plan
-
Patient Disposition: [facility]/SNF
Discharge Diagnosis/Procedures: Hematemesis
Ascites
Esophageal varices
ESRD
Subtherapeutic INR
Condition: Fair
Diet: Low Sodium
Additional Diets: Low potassium
Activity: As tolerated
Driving Restrictions: Not until seen by your Dr
Bathing Restrictions: None
Blood Work: Monitor INR weekly
Other Services: PT and OT
Specialty Instructions: Weigh Daily- Call MD for wt gain/loss 3 lbs overnight/5 lbs in 1 week
Activity Restrictions/Additional Instructions:
After discharge should have follow-up with family doctor, should be seen 1 to 2 weeks after discharge
Patient should have follow-up with buildings painter. Referral provided if needed
Continue with dialysis on Thursday/Thursday/Thursday schedule
Should have follow-up with GI/hepatology and nephrology at discharge
Instructions: Fluid in the belly from cirrhosis (ascites), Dialysis and diet
Referrals:
Masood Randall DO [Family Provider] -
Jeremy Rdz MD [Non-Admitting Privileges] - (Pain management)
Additional Discharge Medication Instructions: Current antihypertensive regimen: Carvedilol 6.25 twice daily, hydralazine 103 times daily, nifedipine 30 twice daily, clonidine 0.3/24-hour patch weekly
Continue with bowel regimen: Lactulose 20 g twice daily, MiraLAX as needed
Continue with pain regimen: Fentanyl patch standing, as needed oxycodone and oral hydromorphone for breakthrough pain
Prescriptions:
New
hydromorphone 2 mg Tablet
2 mg PO Q6HPRN PRN (Reason: Severe pain) 7 Days Qty: 30 0RF
fentanyl 12 mcg/hr Patch 72 Hour
1 patch transdermal Q72H 7 Days Qty: 5 0RF
polyethylene glycol 3350 17 gram Powder In Packet
17 g PO DAILY PRN (Reason: Constipation) 30 Days Qty: 14 0RF
nifedipine 30 mg Tablet Extended Release
30 mg PO BID 30 Days Qty: 60 0RF
sevelamer carbonate 800 mg Tablet
1,600 mg PO AC 30 Days Qty: 180 0RF
oxycodone 10 mg Tablet
10 mg PO Q4HPRN PRN (Reason: moderate pain) 7 Days Qty: 30 0RF
sertraline 25 mg Tablet
50 mg PO DAILY 30 Days Qty: 60 0RF
hydralazine 50 mg Tablet
100 mg PO TID 30 Days Qty: 180 0RF
clonidine 0.3 mg/24 hr Patch Weekly
0.3 mg transdermal Q7D 30 Days Qty: 4 0RF
carvedilol 6.25 mg Tablet
6.25 mg PO BID 30 Days Qty: 60 0RF
lactulose 20 gram/30 mL Solution
20 g PO BID 30 Days Qty: 1800 0RF
Continued
atorvastatin 80 mg Tablet
80 mg PO HS
lidocaine-prilocaine 2.5-2.5 % Cream
1 applic TOPICAL TUTHSA PRN (Reason: port access)
Dialyvite 100-1 mg tablet
1 tab PO DAILY
hydralazine 100 mg tablet
100 mg PO TID
acetaminophen [Tylenol Extra Strength] 500 mg tablet
500 mg PO Q6HPRN PRN (Reason: mild pain) Qty: 0 0RF
insulin lispro 100 unit/mL Insulin Pen
4 unit SC AC Qty: 0 0RF
Rx Instructions:
150-200=2UNITS, 201-250=4UNITS, 251-300=6UNITS
warfarin 3 mg Tablet
3 mg PO DAILY Qty: 0 0RF
pantoprazole 40 mg tablet,delayed release (DR/EC)
40 mg PO BID
sevelamer carbonate 800 mg tablet
1,600 mg PO MEALS
Discontinued
sertraline 100 mg tablet
100 mg PO DAILY
losartan 100 mg tablet
100 mg PO DAILY
clonidine HCl 0.2 mg tablet
0.2 mg PO TID
oxycodone 5 mg Tablet
5 mg PO Q4HPRN PRN (Reason: severe pain) Qty: 4 0RF
nifedipine 30 mg tablet extended release
30 mg PO DAILY
spironolactone 25 mg tablet
25 mg PO DAILY
Discharge Orders:
Discharge Patient (As Directed); Ordered 03/31/24
Ordered By: Lazaro Hwang
Discharge Date and Time
Discharge Date/Time: 03/31/24 14:25
Print Language: ICELANDIC
[2024-03-31 14:35] VITALS: BP 151/71
== END 2024-03-31 14:25 | DRG 441 ==
LOC: 2 NORTH 03:47
PROVIDERS: Hospitalist; Internal Medicine; Internal Medicine Gastroenterology; Nurse Practitioner Adult Health; Nurse Practitioner Family; Radiology Vascular & Interventional Radiology; Specialist; ADMITTING PHYSICIAN Internal Medicine; ATTENDING PHYSICIAN Internal Medicine; CONSULT PHYSICIAN Internal Medicine Hospice and Palliative Medicine; CONSULT PHYSICIAN Psychiatry & Neurology Psychiatry; EMERGENCY PHYSICIAN Student in an Organized Health Care Education/Training Program; FAMILY PHYSICIAN Internal Medicine; OTHER PHYSICIAN Internal Medicine; OTHER PHYSICIAN Specialist; OTHER PHYSICIAN Surgery
PROC: 30283B1 Transfusion of Nonautologous 4-Factor Prothrombin Complex Concentrate into Vein, Percutaneous Approach (ICD-10-PCS; 2024-03-16)
PROC: 5A1D70Z Performance of Urinary Filtration, Intermittent, Less than 6 Hours Per Day (ICD-10-PCS; 2024-03-16)
PROC: 0W9G3ZZ Drainage of Peritoneal Cavity, Percutaneous Approach (ICD-10-PCS; 2024-03-18)
PROC: 0DJ08ZZ Inspection of Upper Intestinal Tract, Via Natural or Artificial Opening Endoscopic (ICD-10-PCS; 2024-03-19)
DX: K76.6 Portal hypertension (principal); K25.4 Chronic or unspecified gastric ulcer with hemorrhage; N18.6 End stage renal disease; D68.32 Hemorrhagic disorder due to extrinsic circulating anticoagulants; I50.32 Chronic diastolic (congestive) heart failure; I13.2 Hypertensive heart and chronic kidney disease with heart failure and with stage 5 chronic kidney disease, or end stage renal disease; F11.20 Opioid dependence, uncomplicated; R18.8 Other ascites; E87.20 Acidosis, unspecified; D62 Acute posthemorrhagic anemia; E87.1 Hypo-osmolality and hyponatremia; K56.7 Ileus, unspecified; K92.0 Hematemesis; I85.10 Secondary esophageal varices without bleeding; K74.60 Unspecified cirrhosis of liver; K75.81 Nonalcoholic steatohepatitis (NASH); I25.10 Atherosclerotic heart disease of native coronary artery without angina pectoris; I48.0 Paroxysmal atrial fibrillation; D50.9 Iron deficiency anemia, unspecified; E11.22 Type 2 diabetes mellitus with diabetic chronic kidney disease; F32.A Depression, unspecified; E11.40 Type 2 diabetes mellitus with diabetic neuropathy, unspecified; K21.00 Gastro-esophageal reflux disease with esophagitis, without bleeding; K22.70 Barrett's esophagus without dysplasia; E11.649 Type 2 diabetes mellitus with hypoglycemia without coma; G89.4 Chronic pain syndrome; E87.5 Hyperkalemia; K31.89 Other diseases of stomach and duodenum; I1A.0 Resistant hypertension; E78.00 Pure hypercholesterolemia, unspecified; K22.89 Other specified disease of esophagus; L89.151 Pressure ulcer of sacral region, stage 1; L89.621 Pressure ulcer of left heel, stage 1; E83.39 Other disorders of phosphorus metabolism; I16.0 Hypertensive urgency; T45.515A Adverse effect of anticoagulants, initial encounter; L89.611 Pressure ulcer of right heel, stage 1; D63.1 Anemia in chronic kidney disease; F41.9 Anxiety disorder, unspecified; G43.909 Migraine, unspecified, not intractable, without status migrainosus; I15.8 Other secondary hypertension; K44.9 Diaphragmatic hernia without obstruction or gangrene; K59.00 Constipation, unspecified; F10.11 Alcohol abuse, in remission; M54.50 Low back pain, unspecified; R26.2 Difficulty in walking, not elsewhere classified; Z66 Do not resuscitate; Z99.2 Dependence on renal dialysis; Z91.158 Patient's noncompliance with renal dialysis for other reason; Z79.01 Long term (current) use of anticoagulants; Z87.891 Personal history of nicotine dependence; Z79.4 Long term (current) use of insulin; Z91.199 Patient's noncompliance with other medical treatment and regimen due to unspecified reason; Z11.52 Encounter for screening for COVID-19; Z98.61 Coronary angioplasty status
CPT/HCPCS: 49083; 71045; 74018; 74019; 74177; 80048; 80051; 80053; 81003; 81015; 82042; 82105; 82140; 82248; 82962; 83735; 84132; 84155; 84157; 85014; 85018; 85025; 85027; 85384; 85610; 85730; 86803; 86850; 86900; 86901; 87015; 87040; 87070; 87086; 87205; 87811; 89051; 97116; 97162; 97166; 97530; 97535; 99285; G0257; J7168; P9047; Q5106; Q9967

== ENCOUNTER 2024-04-06 11:38 | Inpatient (IN) | payer OTHER, SELFPAY ==
[2024-04-06] VITALS (14 sets, daily range): BP systolic 148–232; BP diastolic 48–85; BMI 22.3; BMI 21.8
[2024-04-06 05:40] LABS: % Basophils 1.2 % (0-2); % Eosinophils 4.1 % (0-6); % Immature Granulocytes 0.2 % (0-0.5); % Lymphocytes 15.3 % (20.5-51.1); % Monocytes 8.8 % (1.7-9.3); % Neutrophils 70.4 % (42.2-75.2); Absolute Basophils 0.1 10^3/uL (0-0.2); Absolute Eosinophils 0.3 10^3/uL (0-0.7); Absolute Monocytes 0.6 10^3/uL (0.1-0.6); Absolute Neutrophils 4.7 10^3/uL (1.4-6.5); Hematocrit 32.5 % (39.0-52.0); Hemoglobin 10.4 g/dL (13.0-18.0); Mean Corpuscular Hgb 30.1 pg (27.0-31.0); Mean Corpuscular Volume 93.9 fL (80.0-94.0); Mean Platelet Volume 10.1 fL (7.4-10.4); Nucleated Red Blood Cells % 0 % (-); Platelet Count 307 10^3/uL (130-400); Red Blood Cell Count 3.46 10^6/uL (4.70-6.10); Red Cell Dist. Width 16.3 % (11.5-14.5); White Blood Cell Count 6.6 10^3/uL (4.8-10.8)
[2024-04-06 05:54] LABS: Troponin I 0.025 ng/ml
[2024-04-06 05:55] LABS: ALT (SGPT) 12 U/L (0-50); AST (SGOT) 46 U/L (17-59); Albumin 2.7 g/dl (3.5-5.0); Alkaline Phosphatase 121 U/L (38-126); Blood Urea Nitrogen 64 mg/dl (9-20); Calcium 8.6 mg/dl (8.4-10.2); Carbon Dioxide 25 mmol/L (22-30); Chloride 98 mmol/L (98-107); Glucose 86 mg/dl (70-99); Potassium 6.7 mmol/L (3.5-5.1); Sodium 135 mmol/L (135-145); Total Bilirubin 0.5 mg/dl (0.2-1.3); Total Protein 6.6 g/dl (6.3-8.2); eGFR 8.11
[2024-04-06 06:38] LABS: Glucose - Point of Care 84 mg/dl (70-99)
[2024-04-06] MEDS: VENTOLIN NEBULES 10 MG INH (06:38)
[2024-04-06] MEDS: DEXTROSE 50% SYRINGE 25 GRAMS IV (06:38)
[2024-04-06] MEDS: NOVOLIN R 10 UNITS IV (06:38)
[2024-04-06] MEDS: LOKELMA 10 GRAM PO (06:39)
[2024-04-06] MEDS: CALCIUM GLUCONATE 1000 MG IV (06:39)
[2024-04-06] MEDS: NSS 500 IV (06:39)
[2024-04-06 07:46] LABS: Glucose - Point of Care 78 mg/dl (70-99)
--- NOTE | 2024-04-06 07:48 | EDRN ---
this RN received the pt from the previous nightclub manager RN, the pt is resting in stretcher in the lowest position, side rails up x2, call nieto within reach, HOB elevated, no s/s of distress, the pt per previous nurse was bradycardic in the 40's,
however the pt is currently in NSR in the 80's, no c/o chest pain, the pt has c/o SOB, blood sugar was rechecked and was 78, this RN notified Dr. Mcmahan and per the provider Apple Juice was given to the pt, the pt was able to drink it with no
issues, the pt denies needing anything at this time, will continue to monitor the pt closely
--- NOTE | 2024-04-06 08:25 | EDRN ---
the lab called and stated that the specimen that this RN sent for a potassium level was hemolyzed, this RN will redraw and send lab specimen again
--- NOTE | 2024-04-06 08:31 | EDRN ---
this RN redrew and sent Potassium level
--- NOTE | 2024-04-06 09:02 | EDRN ---
the lab called and stated that the potassium was hemolyzed, potassium will be redrawn
--- NOTE | 2024-04-06 09:15 | EDRN ---
potassium level being drawn and blood glucose being checked
[2024-04-06 09:18] LABS: Glucose - Point of Care 48 mg/dl (70-99)
--- NOTE | 2024-04-06 09:18 | ED.GENMED ---
History of Present Illness
General
Chief Complaint: Abdominal Symptoms
Source: patient, records and senior living records
Exam Limitations: none
Time Seen by Provider: 04/06/24 06:07
Nursing documentation reviewed up to this point in time: agreed with
History of Present Illness
History of Present Illness:
Patient is a 58-year-old male who has end-stage renal disease and dialyzed Tuesdays, and Saturdays presents because his heart rate was slow and he was not feeling well. For the past few days the patient has been fatigued and washed out.
Patient had nausea and vomiting diarrhea. Patient had a formed stool this morning. Patient last episode of nausea and vomiting was last night at dinner. Patient denies fever or chills. Patient denies abdominal pain. Patient denies chest pain or
shortness of breath. Patient missed dialysis yesterday. Patient presents from senior living via EMS.
Past History
Past History
ED Past Medical History: CAD, GERD, HTN, IDDM, Renal failure (End-stage renal disease), Psychiatric (Depression) and Other (Chronic low back pain, ambulatory dysfunction, anemia, pneumonia, pericardial effusion, pleural effusion, frequent falls,
neuropathy)
ED Past Surgical History: Other (Left arm AV graft)
Social History
Tobacco: Non-smoker
Alcohol: None
Drug: None
Personal:
Living: senior living
Employment: Disabled
Family History
Family History: Other (Noncontributory)
Review of Systems
Review of Systems
All Other Systems: ROS reviewed and negative except as documented in HPI and ROS
Constitutional: Reports fatigue; Denies fever or chills
EENT: Reports no symptoms
Respiratory: Reports no symptoms
Cardiac: Reports other (Slow heart rate); Denies chest pain
ABD/GI: Reports nausea, vomiting, diarrhea and anorexia; Denies abdominal pain, bloody stools or black stools
: Reports other (Dialysis)
Musculoskeletal: Reports back pain (Chronic)
Skin: Reports no symptoms
Neurological: Reports no symptoms
Hematologic/Lymphatic: Reports no symptoms
Phy Exam
Physical Exam
Physical Exam:
Physical Exam
General: moderate distress, alert and appropriate, well nourished, appears older than stated age, dry mucous membranes
HENT: Normocephalic, supple with no lymphadenopathy, no thyromegaly
Eyes: Clear sclera, conjuctiva without injection
Heart: Regular rhythm and bradycardic rate. No S3, S4. No murmur. No NVD
Lungs: No respiratory distress, no stridor, lung sounds clear and equal bilaterally, chest wall symmetrical and nontender
Abdomen: Soft, nontender, no organomegaly, BS good
Neuro: Alert and oriented x 3, CN II - XII intact, no motor focality
Skin: no rash. Grayish tinge to skin
Psychiatric: well kept. interactive and cooperative
Extremities: No cyanosis, tenderness. Chronic bilateral ankle and pedal edema
Course
Orders/Labs/Results
Orders:
Orders
04/06/24 05:18
EKG [Electrocardiogram (*1)] Urgent
Reason for Study: Bradycardia / Tachycardia
EKG- Treatment ONCE
04/06/24 05:20
CMP [Comprehensive Metabolic Panel] Urgent
Complete Blood Count/With Diff Urgent
04/06/24 05:21
Troponin I Urgent
04/06/24 06:14
Albuterol Sulfate [Ventolin Nebules] 10 mg INH R NOW STA
Calcium Gluconate 1,000 mg IV NOW STA
Dextrose 50%-Water [Dextrose 50% Syringe] 12.5 grams IV [id number] PRN
Dextrose 50%-Water [Dextrose 50% Syringe] 25 grams IV NOW STA
Insulin Human Regular [Novolin R] 10 units IV NOW STA
Sodium Zirconium Cyclosilicate [Lokelma] 10 gram PO NOW STA
04/06/24 06:16
Bedside Glucose PRE IV Insulin- HyperK+ NOW
04/06/24 06:17
Norovirus by PCR Urgent
DEMETRIUS Source: Feces/Stool
Specimen Description:
0.9% Sodium Chloride 500 ml [Nss] 500 ml IV BOLUS
04/06/24 07:46
Bedside Glucose POST IV Insulin- HyperK+ Q1HX2,Q2HX2
04/06/24 09:17
Potassium Urgent
04/06/24 09:20
Add On- LAB Urgent
Tests Added?: venous glucose-due to hypoglycemia
Abnormal Lab Results
04/06/24 04/06/24
05:20 09:16
RBC 3.46 L 10^6/uL
(4.70-6.10)
Hgb 10.4 L g/dL
(13.0-18.0)
Hct 32.5 L %
(39.0-52.0)
MCHC 32.0 L g/dL
(33.0-37.0)
RDW 16.3 H %
(11.5-14.5)
Absolute Lymphs (auto) 1.0 L 10^3/uL
(1.2-3.4)
Lymphocytes % 15.3 L %
(20.5-51.1)
Potassium 6.7 H* mmol/L
(3.5-5.1)
BUN 64 H mg/dl
(9-20)
Creatinine 7.2 H* mg/dL
(0.7-1.3)
Albumin 2.7 L g/dl
(3.5-5.0)
POC Glucose 48 L* mg/dl
(70-99)
04/06/24 05:20
04/06/24 09:17
Vital Signs
Initial and Last Documented VS:
Initial Vital Signs
Pulse Resp BP Pulse Ox
67 17 169/56 99
04/06/24 05:10 04/06/24 05:10 04/06/24 05:10 04/06/24 05:10
Last Documented Vital Signs
Temp Pulse Resp BP Pulse Ox
97.6 F 72 20 171/78 100
04/06/24 07:52 04/06/24 09:04 04/06/24 09:04 04/06/24 09:04 04/06/24 09:04
*Radiology
Radiology exam reviewed: other (na)
*Pulse Oximetry
Patient hypoxic: no
*EKG
Interpreted by ED Provider?: Yes
EKG Intrepretation Date: 04/06/24
EKG Intrepretation Time: :25
Comparison EKG: changes noted (Rhythm but QRS is consistent with past)
Heart Rate: 46
Rate: bradycardiac
Rhythm: junctional and PVC's
[place]: normal axis
Interval: normal QT interval
QRS Pattern: right bundle branch block
Ischemia: non-specific ST changes
*Coremaking Machine Setter Interpretation
Rate: bradycardiac
Interpretation: abnormal
Heart Rate: 45
Rhythm: junctional and PVC's
*Critical Care Note
Total Time (30-74mins, 75-104mins- exclusive of procedures): 45 minutes
Update Note
Update Note:
Patient is improving and is now in sinus rhythm. Patient will be admitted.
ED Attending Note
-
Portions of this chart may have been created with voice recognition software.� Occasional wrong word or��sound alike� substitutions may have occurred due to the inherent limitations of voice recognition software.
Discharge Plan
Departure
Patient Disposition: Admit
Date of Disposition: 04/06/24
Time of Disposition: 09:26
Admit to: Telemetry
Admit to doctor: Hospitalist
Presentation/result/management discussed w/ accepting MD/DO: Hospitalist
Patient with high blood pressure during this ER visit?: Yes
Condition: Serious
Covid-19: Not Applicable
Discharge Problem:
Hyperkalemia, diminished renal excretion, Junctional rhythm, End stage chronic kidney disease, Dehydration
Prescriptions:
No Action
atorvastatin 80 mg Tablet
80 mg PO HS
lidocaine-prilocaine 2.5-2.5 % Cream
1 applic TOPICAL MOWEFR PRN (Reason: port access)
Dialyvite 100-1 mg tablet
1 tab PO DAILY
hydralazine 100 mg tablet
100 mg PO TID
insulin lispro 100 unit/mL Insulin Pen
4 unit SC AC Qty: 0 0RF
Rx Instructions:
150-200=2UNITS, 201-250=4UNITS, 251-300=6UNITS
warfarin 3 mg Tablet
3 mg PO DAILY Qty: 0 0RF
pantoprazole 40 mg tablet,delayed release (DR/EC)
40 mg PO BID
hydromorphone 2 mg Tablet
2 mg PO Q6HPRN PRN (Reason: Severe pain) 7 Days Qty: 30 0RF
fentanyl 12 mcg/hr Patch 72 Hour
1 patch transdermal Q72H 7 Days Qty: 5 0RF
nifedipine 30 mg Tablet Extended Release
30 mg PO BID 30 Days Qty: 60 0RF
sevelamer carbonate 800 mg Tablet
1,600 mg PO AC 30 Days Qty: 180 0RF
sertraline 25 mg Tablet
50 mg PO DAILY 30 Days Qty: 60 0RF
carvedilol 6.25 mg Tablet
6.25 mg PO BID 30 Days Qty: 60 0RF
lactulose 20 gram/30 mL Solution
20 g PO BID 30 Days Qty: 1800 0RF
acetaminophen [Tylenol] 325 mg Tablet
650 mg PO Q6HPRN PRN (Reason: mild pain)
ondansetron HCl [Zofran] 4 mg Tablet
4 mg PO Q6HPRN PRN (Reason: nausea)
loperamide 2 mg Tablet
2 mg PO Q6HPRN PRN (Reason: diarrhea)
bisacodyl [Dulcolax (bisacodyl)] 10 mg Suppository
10 mg FL DAILYPRN PRN (Reason: if no bm aftr mom)
polyethylene glycol 3350 17 gram powder in packet
17 g PO DAILYPRN PRN (Reason: Constipation)
acetaminophen [Tylenol Extra Strength] 500 mg tablet
500 mg PO Q6HPRN PRN (Reason: moderate pain)
clonidine 0.3 mg/24 hr patch weekly
0.3 mg transdermal TH
oxycodone 10 mg tablet
10 mg PO Q4HPRN PRN (Reason: severe pain)
Referrals:
Patricia Mcallister CRNP [Family Provider] -
Interventions
Interventions:
*Risk Screen - Suicide Last Done: 04/06/24 05:10
*General Assessment Last Done: 04/06/24 05:10
*Neglect/Abuse Screening Last Done: 04/06/24 05:10
ED- Fall Risk Assessment Last Done: 04/06/24 07:52
*ED COVID-19 Vaccine History Last Done: 04/06/24 05:10
DH-Gqkyss-Mheuahayhx Assessment Last Done: 04/06/24 07:52
Discharge Date and Time
Print Language: JAPANESE
[2024-04-06] MEDS: DEXTROSE 50% SYRINGE 12.5 GRAMS IV (09:22)
--- NOTE | 2024-04-06 09:26 | EDRN ---
Dextrose administered per Dr. Vega orders
[2024-04-06 09:47] LABS: Glucose - Point of Care 114 mg/dl (70-99)
--- NOTE | 2024-04-06 10:10 | EDRN ---
the pt is resting in stretcher in the lowest position, side rails up x2, call nieto within reach, HOB elevated, no s/s of distress, no c/o chest pain, no c/o SOB currently, the pt denies needing anything at this time, awaiting for the hospitalist to
come to the pts bedside and admit the pt, NSR in the 70's, the pt is hypertensive at 185/85 (114), this RN notified Dr. Mcmahan and no new orders were received, will continue to monitor the pt closely
[2024-04-06 10:12] LABS: Glucose 52 mg/dl (70-99); Potassium 6.1 mmol/L (3.5-5.1)
--- NOTE | 2024-04-06 10:13 | EDRN ---
the lab called with results, Potassium 601 and glucose 52 however the venous glucose was drawn before dextrose was administered, glucose has since been checked, this RN notified Dr. Mcmahan and no new orders were received, will continue to
monitor the pt closely
--- NOTE | 2024-04-06 10:50 | EDRN ---
the hospitalist is currently at the pts bedside
--- NOTE | 2024-04-06 11:01 | W.CON.NEPH ---
Consultation
-
Date/Time Consultation Requested: 04/06/24 1030
Date/Time Consultation Performed: 04/06/24 1200
Requesting Provider: Yesica Lee
Performing Provider: Jessica Burns
Reason for Consultation: ESRD
Medical History
-
Chief Complaint: low HR
History of Present Illness:
58 yo man with hx ESRD on HD MWF from [facility](previously T//Sat at [facility]), non compliance with HDs, CAD, atrial fibrillation on coumadin, IDDM, HTN on Procardia, clonidine,hydralazine, coreg, HLD on statin, Vascepa,
hyperphosphatemia on Renvela, cirrhosis and ascites, multiple hospitalization 12/29-01/01/24,01/19/24 to 01/22/24, 02/07 to 02/24 and most recently 03/16 to 03/31 for GIB EGD showed portal HTN and grade 1 E varices, he also had paracentesis too. This
admit he started on Fentanyl patch and Dilaudid po for pain control. Since discharge pt had HD on Thursday and missed on Thursday. He reports having nausea and vomiting. had normal BM yesterday. No fever or cp. c/o sob but seem chr. Reportedly had low
HR in 40s at [place] and sent to ER. His k was at 6.7, s/p temporization with calcium and insulin repeat was at 6.1, hb 10.7. EKG reportedly had PVCs. he had 500cc of NS. BPs are 160-180s. Nephrology consulted for dialysis needs.
Past Medical History
1. ESRD x5 years presumed due to diabetic nephropathy.
2. Chronic pain.
3. Chronic back pain.
4. Atrial fibrillation on Coumadin.
5. Chronic anemia.
6. History of thoracentesis.
cirrhosis and ascites s/p paracentesis
7. History of pericardiocentesis at outside hospital back in fall
of 2022.
8. Elevated HEYDI with subsequent negative testing.
9. Peripheral neuropathy.
10. History of left upper extremity radiocephalic AV fistula.
11. History of hypertension on multi-drug regimen.
12. History of coronary artery disease.
13. History of peripheral eosinophilia.
14. Hyperphosphatemia.
Past Medical History: Other
Past Surgical History: Other (Left arm AVG)
Social History
Tobacco: Former Smoker
Alcohol: Former
Drug: None
Living: Custodial
Family History
Family History: Not Pertinent
Allergies / Home Medications
Allergy/AdvReac Type Severity Reaction Status Date / Time
No Known Allergies Allergy Verified 04/06/24 05:03
�Medication �Instructions �Recorded �Confirmed �Type
atorvastatin 80 mg tablet 80 mg PO HS High Cholesterol 12/23/22 04/06/24 History
lidocaine-prilocaine 2.5 %-2.5 % 1 applic topical MOWEFR PRN port 12/23/22 04/06/24 History
topical cream access
vitamin B complex-vitamin C 100 1 tab PO DAILY Supplement 07/29/23 04/06/24 History
mg-folic acid 1 mg tablet
(Dialyvite)
hydralazine 100 mg tablet 100 mg PO TID Blood Pressure 10/29/23 04/06/24 History
insulin lispro 100 unit/mL 4 unit (0.04 mL) SC AC Diabetes #0 02/17/24 04/06/24 Rx
subcutaneous pen mL
warfarin 3 mg tablet 3 mg PO DAILY Blood Clot 02/24/24 04/06/24 Rx
Prevention/Tx #0 tabs
pantoprazole 40 mg tablet,delayed 40 mg PO BID Gastrointestinal Issue 03/17/24 04/06/24 History
release
carvedilol 6.25 mg tablet 6.25 mg PO BID Blood pressure 1 03/31/24 04/06/24 Rx
month #60 tabs
fentanyl 12 mcg/hr transdermal 1 patch transdermal Q72H Chronic 03/31/24 04/06/24 Rx
patch pain 1 week #5 ea
hydromorphone 2 mg tablet 2 mg PO Q6HPRN PRN Severe pain 7 03/31/24 04/06/24 Rx
days #30 tabs
lactulose 20 gram/30 mL oral 20 g (30 mL) PO BID Constipation 1 03/31/24 04/06/24 Rx
solution month #1,800 mL
nifedipine 30 mg tablet,extended 30 mg PO BID Blood pressure 1 03/31/24 04/06/24 Rx
release month #60 tabs
sertraline 25 mg tablet 50 mg (2 x 25 mg) PO DAILY 03/31/24 04/06/24 Rx
Depression 1 month #60 tabs
sevelamer carbonate 800 mg tablet 1,600 mg (2 x 800 mg) PO AC Kidney 03/31/24 04/06/24 Rx
Disease 1 month #180 tabs
acetaminophen 325 mg tablet 650 mg PO Q6HPRN PRN mild pain 04/06/24 04/06/24 History
(Tylenol)
acetaminophen 500 mg tablet 500 mg PO Q6HPRN PRN moderate pain 04/06/24 04/06/24 History
(Tylenol Extra Strength)
bisacodyl 10 mg rectal suppository 10 mg ND DAILYPRN PRN if no bm 04/06/24 04/06/24 History
(Dulcolax (bisacodyl)) aftr mom
clonidine 0.3 mg/24 hr weekly 0.3 mg transdermal TH Blood 04/06/24 04/06/24 History
transdermal patch pressure
loperamide 2 mg tablet 2 mg PO Q6HPRN PRN diarrhea 04/06/24 04/06/24 History
ondansetron HCl 4 mg tablet 4 mg PO Q6HPRN PRN nausea 04/06/24 04/06/24 History
oxycodone 10 mg tablet 10 mg PO Q4HPRN PRN severe pain 04/06/24 04/06/24 History
polyethylene glycol 3350 17 gram 17 g PO DAILYPRN PRN Constipation 04/06/24 04/06/24 History
oral powder packet
Review of Systems
-
All complete 12 point ROS have been inquired and found negative other than stated in HPI
All other systems: Negative unless noted
Physical Exam
Vital Signs
Vital Signs
Temp Pulse Resp BP Pulse Ox
97.6 F 73 20 185/85 99
04/06/24 07:52 04/06/24 10:11 04/06/24 10:11 04/06/24 10:11 04/06/24 10:11
Lab Results
WBC 6.6 10^3/uL (4.8-10.8) 04/06/24 05:20
RBC 3.46 10^6/uL (4.70-6.10) L 04/06/24 05:20
Hgb 10.4 g/dL (13.0-18.0) L 04/06/24 05:20
Hct 32.5 % (39.0-52.0) L 04/06/24 05:20
Plt Count 307 10^3/uL (130-400) D 04/06/24 05:20
Sodium 135 mmol/L (135-145) 04/06/24 05:20
Potassium 6.1 mmol/L (3.5-5.1) H* 04/06/24 09:17
Chloride 98 mmol/L (98-107) 04/06/24 05:20
Carbon Dioxide 25 mmol/L (22-30) 04/06/24 05:20
BUN 64 mg/dl (9-20) H 04/06/24 05:20
Creatinine 7.2 mg/dL (0.7-1.3) H* 04/06/24 05:20
eGFR 8.11 04/06/24 05:20
Glucose 52 mg/dl (70-99) L* 04/06/24 09:17
Calcium 8.6 mg/dl (8.4-10.2) 04/06/24 05:20
Albumin 2.7 g/dl (3.5-5.0) L 04/06/24 05:20
Physical Exam
General: Awake, Alert, Oriented, AOx3, No Distress and Nontoxic
HEENT: EOMI, Anicteric, Conjunctivae Clear and Ear/Nose Intact
Respiratory: Clear, Normal Excursion, Nonlabored Respirations and Other (decreased)
Cardiac: S1/S2 and Regular Rate/Rhythm
Breast: Deferred by me
Abdomen: Soft, Nontender and Other (distended)
Musculoskeletal: Edema (trace)
Skin: No Rash
Neuro: Nonfocal/Grossly Intact
Psych: Appropriate (poor insight)
Vascular Access: AVF
Assessment/Plan
-
Impression:
Hyperkalemia
Bradycardia
GIB /portal gastropathy
Multi drug hypertension
Recurrent ascites
ESRD on hemodialysis at [facility], previously [facility]
Anemia of ESRD
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
Paroxysmal Atrial Fibrillation
Chronic HFpEF
History of bilateral pleural effusions status post thoracentesis
History of pericardial effusion status post pericardiocentesis
Coronary artery disease
Essential hypertension
DM2 with multiple microvascular complications
Hyperlipidemia
Spinal stenosis
Anxiety/depression
L radial AVF
Plan:
A/w bradycardia, missed HD reports from n/v
severe hyperkalemia-plan HD today, orders provided
bradycardia could be from high k however he also on BB (started last admit)
would resume anti HTN meds after HD including coreg with close monitoring
resume phos binders
he has been non compliant with HD and missing treatments- this will place him at high mortality risk
Recent declining his over all status with multiple medical issues, his ferry terminal agent prognosis is poor
Previously hospice/palliative care approached which pt refused
strict renal diet and FR
d/w pt
--- NOTE | 2024-04-06 11:20 | HPS.HSE ---
Family Physician
-
Family Physician: MICHELLE Christensen
Chief Complaint
-
Missed hemodialysis.
History of Present Illness
Patient is a 58 years old male with extensive comorbidities including end-stage renal disease on hemodialysis who was discharged to nursing facility after prolonged hospitalization coming back today with missed dialysis session given reported
gastrointestinal illness with abdominal pain and diarrhea. While in the emergency room patient is afebrile, hypertensive with no further GI symptoms observed. Further evaluation was consistent with bradycardia heart rate in the 40s. Severe
hyperkalemia with elevated BUN/creatinine above baseline.
Patient himself is a poor historian and could not provide any additional information.
Hyperkalemia has been temporized with following improvement of bradycardia.
Medical History
Past Medical History
Past Medical History: Reports Other (End-stage renal disease, cirrhosis, paroxysmal atrial fibrillation, CAD, cardiomyopathy, type 2 diabetes, depression)
Past Surgical History: Reports None
Social History
Tobacco: Former Smoker
Alcohol: None
Drug: None
Personal: Single
Living: Custodial
Family History
Family History: Not pertinent
Allergies / Home Medications
Allergies reflects when Allergies were last updated in [facility].
Home Medications with original date entered in [facility]
Allergy/Medication List:
Allergies
Allergy/AdvReac Type Severity Reaction Status Date / Time
No Known Allergies Allergy Verified 04/06/24 05:03
Home Medications
atorvastatin 80 mg tablet 80 mg PO HS High Cholesterol 12/23/22
lidocaine-prilocaine 2.5 %-2.5 % topical cream 1 applic topical MOWEFR PRN port access 12/23/22
vitamin B complex-vitamin C 100 mg-folic acid 1 mg tablet (Dialyvite) 1 tab PO DAILY Supplement 07/29/23
hydralazine 100 mg tablet 100 mg PO TID Blood Pressure 10/29/23
insulin lispro 100 unit/mL subcutaneous pen 4 unit (0.04 mL) SC AC Diabetes #0 mL 02/17/24
warfarin 3 mg tablet 3 mg PO DAILY Blood Clot Prevention/Tx #0 tabs 02/24/24
pantoprazole 40 mg tablet,delayed release 40 mg PO BID Gastrointestinal Issue 03/17/24
carvedilol 6.25 mg tablet 6.25 mg PO BID Blood pressure 1 month #60 tabs 03/31/24
fentanyl 12 mcg/hr transdermal patch 1 patch transdermal Q72H Chronic pain 1 week #5 ea 03/31/24
hydromorphone 2 mg tablet 2 mg PO Q6HPRN PRN Severe pain 7 days #30 tabs 03/31/24
lactulose 20 gram/30 mL oral solution 20 g (30 mL) PO BID Constipation 1 month #1,800 mL 03/31/24
nifedipine 30 mg tablet,extended release 30 mg PO BID Blood pressure 1 month #60 tabs 03/31/24
sertraline 25 mg tablet 50 mg (2 x 25 mg) PO DAILY Depression 1 month #60 tabs 03/31/24
sevelamer carbonate 800 mg tablet 1,600 mg (2 x 800 mg) PO AC Kidney Disease 1 month #180 tabs 03/31/24
acetaminophen 325 mg tablet (Tylenol) 650 mg PO Q6HPRN PRN mild pain 04/06/24
acetaminophen 500 mg tablet (Tylenol Extra Strength) 500 mg PO Q6HPRN PRN moderate pain 04/06/24
bisacodyl 10 mg rectal suppository (Dulcolax (bisacodyl)) 10 mg MT DAILYPRN PRN if no bm aftr mom 04/06/24
clonidine 0.3 mg/24 hr weekly transdermal patch 0.3 mg transdermal TH Blood pressure 04/06/24
loperamide 2 mg tablet 2 mg PO Q6HPRN PRN diarrhea 04/06/24
ondansetron HCl 4 mg tablet 4 mg PO Q6HPRN PRN nausea 04/06/24
oxycodone 10 mg tablet 10 mg PO Q4HPRN PRN severe pain 04/06/24
polyethylene glycol 3350 17 gram oral powder packet 17 g PO DAILYPRN PRN Constipation 04/06/24
Review of Systems
-
A 12 point ROS was completed and negative except as noted: Yes
Physical Exam
Vital Signs
Vital Signs
Temp Pulse Resp BP Pulse Ox
97.6 F 73 20 185/85 99
04/06/24 07:52 04/06/24 10:11 04/06/24 10:11 04/06/24 10:11 04/06/24 10:11
Physical Exam
General: Well Developed, Well Nourished and No Apparent Distress
HEENT: NormoCephalic, Moist mucous membranes and Atraumatic
Respiratory: Clear
Cardiac: S1/S2 and Regular Rhythm; No Murmur or Rub
GI: Soft, Non Tender, Normal Bowel Sounds and Distended; No Organomegaly
Rectal: Deferred by Provider
Musculoskeletal: No Clubbing, No Cyanosis and No Edema
Skin: No Rash
Neuro: Awake, Alert, Oriented and Nonfocal/grossly intact
Laboratory Results
-
04/06/24 05:20
04/06/24 09:17
Laboratory Results
Total Bilirubin 0.5 mg/dl (0.2-1.3) 04/06/24 05:20
AST 46 U/L (17-59) 04/06/24 05:20
ALT 12 U/L (0-50) 04/06/24 05:20
Alkaline Phosphatase 121 U/L (38-126) 04/06/24 05:20
Troponin I 0.025 ng/ml 04/06/24 05:21
Impression/Plan
-
IMPRESSION:
Missed hemodialysis due to reported gastrointestinal illness.
Volume overload due to missed HD.
Hypertensive urgency due to above.
Hyperkalemia due to above.
Bradycardia improved with correction of hyperkalemia
Conditions prior to admission:
Recent hospitalization with coffee-ground emesis secondary to portal gastropathy and anticoagulation with Coumadin
End-stage renal disease on HD Thursday.
Accelerated hypertension, multidrug requiring.
Cirrhosis.
Portal gastropathy/esophageal varices grade 1 with prior history of life-threatening hemorrhage.
Recurrent ascites
Paroxysmal atrial fibrillation
Anticoagulation with Coumadin
Chronic CHF preserved EF.
History of bilateral pleural effusions.
CAD.
Type 2 diabetes.
Dyslipidemia.
Chronic pain with opiate dependence.
Spinal stenosis.
Anxiety/depression
PLAN:
End-stage renal disease with missed hemodialysis.
Accelerated hypertension due to volume overload.
Hyperkalemia.
Nephrology consultation for HD.
Hyperkalemia temporized while in ED
Bradycardia in the settings of electrolyte disturbances including hyperkalemia
Improved. Follow BMP/potassium. Continue cardiac monitoring
Paroxysmal atrial fibrillation
Resume Coreg with caution and with holding parameters.
Anticoagulation with Coumadin. Follow INR with goal of therapeutic range 2�3.
Cirrhosis.
Recurrent ascites
Portal hypertension with portal gastropathy and grade 1 varices.
Recurrent ascites
Ultrasound of the abdomen to assess for recurrent ascites
Continue lactulose
Continue Coreg for variceal bleeding prophylaxis.
Low-sodium diet
CHF preserved EF.
CAD
Accelerated hypertension.
Volume management with HD.
Continue preadmission regimen including Coreg, clonidine, nifedipine hydralazine
Continue atorvastatin
IDDM
Update hemoglobin A1c
Continue AC insulin
Basal bolus protocol with serial Accu-Cheks
Chronic pain with opiate dependence
History of spinal stenosis
Continue preadmission regimen including fentanyl and hydromorphone. Hold oxycodone to avoid oversedation with multiple opiates
Depression
Continue central line
CODE STATUS DNR.
[2024-04-06] MEDS: DILAUDID 2 MG PO (11:34)
[2024-04-06 11:40] LABS: Glucose - Point of Care 83 mg/dl (70-99)
[2024-04-06 12:08] LABS: INR 1.64; PT 19.9 Sec (11.4-14.6)
[2024-04-06 13:11] LABS: Glucose - Point of Care 95 mg/dl (70-99)
--- NOTE | 2024-04-06 13:14 | EDRN ---
the pt currently has a LCW Fentanyl patch on that is from receiving facility
--- NOTE | 2024-04-06 13:39 | EDRN ---
this RN called the receiving unit and notified them that paper report was going to be tubed up
--- NOTE | 2024-04-06 14:41 | W.PN.NEPH.HD ---
Assessment
-
Patient seen on HD
sbp 237
missed HD this week per usual
u/f 3kg as tolerated
Progress Note - Hemodialysis
-
Date of Service: April 06, 2024
Duration: 30 minutes and 3 hours
Potassium Bath: 2
Calcium Bath: 2.5
Opti-Dialyzer: 160
Ultrafiltration: Other (3kg)
Blood Flow: 400
Dialysate Flow: 600
Heparin: none
EPO: 2000
[2024-04-06] MEDS: RENVELA PO (15:12)
[2024-04-06] MEDS: RETACRIT 2000 UNITS IV (16:16)
[2024-04-06] MEDS: DURAGESIC 12 MCG/HR PATCH 1 PATCH TRANSDERM (16:29)
[2024-04-06 16:32] LABS: Glucose - Point of Care 123 mg/dl (70-99)
[2024-04-06] MEDS: APRESOLINE PO (16:38)
[2024-04-06] MEDS: RENVELA 1600 MG PO (16:57)
[2024-04-06] MEDS: NOVOLOG FLEXPEN 4 UNITS SC (16:58)
[2024-04-06] MEDS: COUMADIN 3 MG PO (16:59)
[2024-04-06 18:05] LABS: INR 1.74; PT 20.8 Sec (11.4-14.6)
[2024-04-06] MEDS: PROCARDIA XL (EXTENDED RELEASE) 30 MG PO (20:44)
[2024-04-06] MEDS: COREG 6.25 MG PO (20:44)
[2024-04-06] MEDS: PROTONIX 40 MG PO (20:44)
[2024-04-06] MEDS: DUPHALAC/CHRONULAC PO ×2 (20:44)
[2024-04-06 21:28] LABS: Glucose - Point of Care 106 mg/dl (70-99)
[2024-04-06] MEDS: LIPITOR 80 MG PO (21:58)
[2024-04-06] MEDS: APRESOLINE 100 MG PO (21:58)
[2024-04-07] VITALS (8 sets, daily range): BP systolic 84–180; BP diastolic 59–87; BMI 21.8
[2024-04-07 03:37] LABS: Glucose - Point of Care 123 mg/dl (70-99)
[2024-04-07 07:19] LABS: % Eosinophils 5.7 % (0-6); % Immature Granulocytes 0.2 % (0-0.5); % Lymphocytes 14.3 % (20.5-51.1); % Monocytes 10.5 % (1.7-9.3); % Neutrophils 68.3 % (42.2-75.2); Absolute Basophils 0.1 10^3/uL (0-0.2); Absolute Eosinophils 0.3 10^3/uL (0-0.7); Absolute Lymphocytes 0.9 10^3/uL (1.2-3.4); Absolute Monocytes 0.6 10^3/uL (0.1-0.6); Absolute Neutrophils 4.1 10^3/uL (1.4-6.5); Hematocrit 30.1 % (39.0-52.0); Hemoglobin 9.7 g/dL (13.0-18.0); Mean Corp Hgb Conc. 32.2 g/dL (33.0-37.0); Mean Corpuscular Hgb 30.1 pg (27.0-31.0); Mean Corpuscular Volume 93.5 fL (80.0-94.0); Mean Platelet Volume 9.7 fL (7.4-10.4); Nucleated Red Blood Cells % 0 % (-); Platelet Count 255 10^3/uL (130-400); Red Blood Cell Count 3.22 10^6/uL (4.70-6.10); Red Cell Dist. Width 15.9 % (11.5-14.5)
[2024-04-07 07:41] LABS: ALT (SGPT) 13 U/L (0-50); AST (SGOT) 37 U/L (17-59); Albumin 2.3 g/dl (3.5-5.0); Alkaline Phosphatase 102 U/L (38-126); Blood Urea Nitrogen 35 mg/dl (9-20); Calcium 7.8 mg/dl (8.4-10.2); Carbon Dioxide 30 mmol/L (22-30); Chloride 98 mmol/L (98-107); Direct Bilirubin 0.2 mg/dl (0.0-0.4); Estimated Creatinine Clearance 16 ml/min; Glucose 101 mg/dl (70-99); INR 1.72; PT 20.7 Sec (11.4-14.6); Potassium 5.3 mmol/L (3.5-5.1); Sodium 131 mmol/L (135-145); Total Bilirubin 0.2 mg/dl (0.2-1.3); Total Protein 5.5 g/dl (6.3-8.2); eGFR 12.88
[2024-04-07 07:50] LABS: Glucose - Point of Care 97 mg/dl (70-99)
[2024-04-07] MEDS: RENVELA 1600 MG PO ×3 (08:00→16:04)
[2024-04-07] MEDS: ZOLOFT 50 MG PO (08:01)
[2024-04-07] MEDS: APRESOLINE 100 MG PO ×3 (08:01→22:10)
[2024-04-07] MEDS: PROCARDIA XL (EXTENDED RELEASE) 30 MG PO ×2 (08:01→20:13)
[2024-04-07] MEDS: NOVOLOG FLEXPEN 4 UNITS SC ×3 (08:01→16:54)
[2024-04-07] MEDS: COREG 6.25 MG PO ×2 (08:01→20:13)
[2024-04-07] MEDS: NEPHROCAP 1 CAPSULE PO (08:01)
[2024-04-07] MEDS: PROTONIX 40 MG PO ×2 (08:01→20:13)
[2024-04-07] MEDS: DUPHALAC/CHRONULAC 20 GRAMS PO ×2 (08:02→20:13)
[2024-04-07] MEDS: DILAUDID 2 MG PO ×3 (08:04→22:10)
[2024-04-07] MEDS: CATAPRES-TTS-3 0.3 MG TRANSDERM (08:49)
[2024-04-07 09:39] LABS: Glycohemoglobin (HgbA1c) 4.9 % (4.0-5.6)
--- NOTE | 2024-04-07 10:57 | W.PN.NEPH.PH ---
Today's Communication / Plan
-
Dialysis tomorrow orders provided
Assessment/Plan
-
Impression:
Hyperkalemia
Bradycardia
GIB /portal gastropathy
Multi drug hypertension
Recurrent ascites
ESRD on hemodialysis at [facility], previously [facility] [employer]
Anemia of ESRD
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
Paroxysmal Atrial Fibrillation
Chronic HFpEF
History of bilateral pleural effusions status post thoracentesis
History of pericardial effusion status post pericardiocentesis
Coronary artery disease
Essential hypertension
DM2 with multiple microvascular complications
Hyperlipidemia
Spinal stenosis
Anxiety/depression
L radial AVF
Plan:
A/w bradycardia, missed HD reports from n/v
Hyperkalemia resolved after dialysis yesterday
bradycardia could be from high k however he also on BB (started last admit)
Patient for paracentesis today
Maintain phos binders
Dialysis orders written for to
he has been non compliant with HD and missing treatments- this will place him at high mortality risk
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
Previously hospice/palliative care approached which pt refused
strict renal diet and FR
-
-
Date of Service: April 07, 2024
CC / HPI / ROS
-
Chief Complaint:
End-stage renal disease
History of Present Illness:
ESRD on Thursday schedule
Hemodynamically more stable with occasional hypertensive spikes
Hyperkalemia resolved after dialysis provided on 04/06/2024
Review of Systems:
No reported chest pain
Abdominal distended
No fevers
Labs
-
Labs:
WBC 6.0 10^3/uL (4.8-10.8) 04/07/24 06:52
RBC 3.22 10^6/uL (4.70-6.10) L 04/07/24 06:52
Hgb 9.7 g/dL (13.0-18.0) L 04/07/24 06:52
Hct 30.1 % (39.0-52.0) L 04/07/24 06:52
Plt Count 255 10^3/uL (130-400) 04/07/24 06:52
Sodium 131 mmol/L (135-145) L 04/07/24 06:52
Potassium 5.3 mmol/L (3.5-5.1) H 04/07/24 06:52
Chloride 98 mmol/L (98-107) 04/07/24 06:52
Carbon Dioxide 30 mmol/L (22-30) 04/07/24 06:52
BUN 35 mg/dl (9-20) H 04/07/24 06:52
Creatinine 4.9 mg/dL (0.7-1.3) H* 04/07/24 06:52
eGFR 12.88 04/07/24 06:52
Glucose 101 mg/dl (70-99) H 04/07/24 06:52
Calcium 7.8 mg/dl (8.4-10.2) L 04/07/24 06:52
Albumin 2.3 g/dl (3.5-5.0) L 04/07/24 06:52
Physical Exam
-
Vital Signs:
Vital Signs
Temp Pulse Resp BP Pulse Ox
98.0 F 86 16 180/60 98
04/07/24 07:30 04/07/24 07:30 04/07/24 07:30 04/07/24 07:30 04/07/24 07:30
Cardiovascular:: Regular rate and rhythm
Respiratory:: Bilateral: Coarse
Lung Excursion:: Normal
Abdomen:: Distended and Soft
Bowel Sounds:: Normal
Extremity Edema:: None: Bilateral:
Alfred Catheter: No
[2024-04-07 11:51] LABS: Glucose - Point of Care 123 mg/dl (70-99)
[2024-04-07] MEDS: ZOFRAN 4 MG PO (15:00)
--- NOTE | 2024-04-07 15:47 | W.PN.HOSP.TC ---
Today's Communication/Plan
-
HD as per nephrology scheduled
Paracentesis
Assessment / Plan
Assessment / Plan
IMPRESSION:
Missed hemodialysis due to reported gastrointestinal illness.
Volume overload due to missed HD.
Hypertensive urgency due to above.
Hyperkalemia due to above.
Bradycardia improved with correction of hyperkalemia
Conditions prior to admission:
Recent hospitalization with coffee-ground emesis secondary to portal gastropathy and anticoagulation with Coumadin
End-stage renal disease on HD Thursday.
Accelerated hypertension, multidrug requiring.
Cirrhosis.
Portal gastropathy/esophageal varices grade 1 with prior history of life-threatening hemorrhage.
Recurrent ascites
Paroxysmal atrial fibrillation
Anticoagulation with Coumadin
Chronic CHF preserved EF.
History of bilateral pleural effusions.
CAD.
Type 2 diabetes.
Dyslipidemia.
Chronic pain with opiate dependence.
Spinal stenosis.
Anxiety/depression
PLAN:
End-stage renal disease with missed hemodialysis.
Accelerated hypertension due to volume overload.
Hyperkalemia.
Nephrology consultation for HD.
Hyperkalemia temporized while in ED
Bradycardia in the settings of electrolyte disturbances including hyperkalemia
Improved. Follow BMP/potassium. Continue cardiac monitoring
Paroxysmal atrial fibrillation
Resume Coreg with caution and with holding parameters.
Anticoagulation with Coumadin. Follow INR with goal of therapeutic range 2�3.
Cirrhosis.
Recurrent ascites
Portal hypertension with portal gastropathy and grade 1 varices.
Recurrent ascites. Paracentesis ordered on 04/07
Continue lactulose
Continue Coreg for variceal bleeding prophylaxis.
Low-sodium diet
CHF preserved EF.
CAD
Accelerated hypertension.
Volume management with HD.
Continue preadmission regimen including Coreg, clonidine, nifedipine hydralazine
Continue atorvastatin
IDDM
Update hemoglobin A1c 4.9
Continue AC insulin
Basal bolus protocol with serial Accu-Cheks
Chronic pain with opiate dependence
History of spinal stenosis
Continue preadmission regimen including fentanyl and hydromorphone. Hold oxycodone to avoid oversedation with multiple opiates
Depression
Continue central line
CODE STATUS DNR.
Anticipated Discharge: 24 - 48 hours
Subjective/Interval History
-
Date of Service: April 07, 2024
Objective Data
-
Labs:
Laboratory Results
04/07/24
06:52
WBC 6.0
Hgb 9.7 L
Hct 30.1 L
Plt Count 255
PT 20.7 H
INR 1.72
Sodium 131 L
Potassium 5.3 H
Chloride 98
Carbon Dioxide 30
BUN 35 H
Creatinine 4.9 H*
Glucose 101 H
Calcium 7.8 L
Total Bilirubin 0.2
AST 37
ALT 13
Alkaline Phosphatase 102
Vital Signs:
Vital Signs
Temp Pulse Resp BP Pulse Ox
98.0 F 86 18 161/70 98
04/07/24 11:30 04/07/24 11:30 04/07/24 11:30 04/07/24 11:30 04/07/24 11:30
I&O
04/06/24 04/07/24 04/08/24
06:59 06:59 06:59
Intake Total 1070 / 1070
Balance 1070 / 1070
Physical Exam
-
General: Well Developed, No Apparent Distress, Comfortable and Appears Chronically Ill
HEENT: Normocephalic, Atraumatic, Moist Mucous Membranes and Anicteric
Respiratory: Clear to Auscultation and Non Labored Respirations
Cardiac: Regular Rhythm and S1/S2; Negative Murmur, Rub or Gallop
GI: Soft, Nontender, Nondistended and Normal Bowel Sounds
Musculoskeletal: No Clubbing, No Cyanosis and No Edema
Skin: Warm, Dry and Normal Turgor; Negative Rash
Neuro: AO x 3 and Nonfocal/Grossly Intact
Psych: Calm
[2024-04-07 15:59] LABS: Body Fluid Albumin < 1.0 g/dl; Body Fluid Protein 2.1 g/dl
--- NOTE | 2024-04-07 16:05 | CM ---
Met with patient at bedside; initial assessment completed
Pharmacy: [facility] @ [address] [place]
Patient resides at [facility]; receives Hemodialysis at facility
PLOF: mostly bed bound; needs assistance getting OOB to ; ambulates with Rolling Walker sometimes; needs total care; toilet on bedpan for bowel movements; feeds self
Transport via ambulance
Plan: Return to [facility] when medically stable
[2024-04-07 16:48] LABS: Glucose - Point of Care 109 mg/dl (70-99)
[2024-04-07] MEDS: COUMADIN 3 MG PO (16:56)
[2024-04-07 21:27] LABS: Glucose - Point of Care 122 mg/dl (70-99)
[2024-04-07] MEDS: LIPITOR 80 MG PO (22:10)
[2024-04-07] MEDS: TYLENOL 650 MG PO (23:46)
[2024-04-08 03:51] VITALS: BP 170/62
[2024-04-08 06:00] VITALS: BMI 21.2
[2024-04-08 06:36] LABS: % Eosinophils 6.4 % (0-6); % Immature Granulocytes 0.3 % (0-0.5); % Lymphocytes 11.5 % (20.5-51.1); % Monocytes 9.3 % (1.7-9.3); % Neutrophils 71.5 % (42.2-75.2); Absolute Basophils 0.1 10^3/uL (0-0.2); Absolute Eosinophils 0.4 10^3/uL (0-0.7); Absolute Lymphocytes 0.8 10^3/uL (1.2-3.4); Absolute Monocytes 0.6 10^3/uL (0.1-0.6); Absolute Neutrophils 4.9 10^3/uL (1.4-6.5); Hemoglobin 10.7 g/dL (13.0-18.0); Mean Corp Hgb Conc. 31.5 g/dL (33.0-37.0); Mean Corpuscular Hgb 29.4 pg (27.0-31.0); Mean Corpuscular Volume 93.4 fL (80.0-94.0); Mean Platelet Volume 9.3 fL (7.4-10.4); Nucleated Red Blood Cells % 0 % (-); Platelet Count 293 10^3/uL (130-400); Red Blood Cell Count 3.64 10^6/uL (4.70-6.10); Red Cell Dist. Width 15.8 % (11.5-14.5); White Blood Cell Count 6.9 10^3/uL (4.8-10.8)
[2024-04-08 06:44] LABS: PT 19.6 Sec (11.4-14.6)
[2024-04-08 07:04] LABS: Blood Urea Nitrogen 46 mg/dl (9-20); Calcium 8.1 mg/dl (8.4-10.2); Carbon Dioxide 26 mmol/L (22-30); Chloride 96 mmol/L (98-107); Estimated Creatinine Clearance 14 ml/min; Glucose 136 mg/dl (70-99); Potassium 5.9 mmol/L (3.5-5.1); Sodium 131 mmol/L (135-145); eGFR 10.97
[2024-04-08 07:30] LABS: Glucose - Point of Care 124 mg/dl (70-99)
[2024-04-08 07:37] VITALS: BP 143/62
[2024-04-08] MEDS: NOVOLOG FLEXPEN SC ×4 (07:45→16:54)
[2024-04-08] MEDS: DILAUDID 2 MG PO ×2 (08:02→16:11)
[2024-04-08] MEDS: ZOFRAN 4 MG PO ×2 (08:55→14:59)
[2024-04-08] MEDS: MANNITOL 25% 12.5 GRAMS IV (09:10)
[2024-04-08] MEDS: RETACRIT 6000 UNITS IV (09:30)
--- NOTE | 2024-04-08 10:32 | W.PN.NEPH.PH ---
Today's Communication / Plan
-
On dialysis today with next treatment Thursday
Assessment/Plan
-
Impression:
Hyperkalemia
Bradycardia
GIB /portal gastropathy
Multi drug hypertension
Recurrent ascites
ESRD on hemodialysis at [facility], previously [facility] [employer]
Anemia of ESRD
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
Paroxysmal Atrial Fibrillation
Chronic HFpEF
History of bilateral pleural effusions status post thoracentesis
History of pericardial effusion status post pericardiocentesis
Coronary artery disease
Essential hypertension
DM2 with multiple microvascular complications
Hyperlipidemia
Spinal stenosis
Anxiety/depression
L radial AVF
Plan:
A/w bradycardia, missed HD reports from n/v
Hyperkalemia resolved after dialysis yesterday
bradycardia could be from high k however he also on BB (started last admit)
Status post paracentesis 2 L
Maintain phos binders
he has been non compliant with HD and missing treatments- this will place him at high mortality risk
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
Previously hospice/palliative care approached which pt refused
strict renal diet and FR
Currently on dialysis seen ultrafiltration as tolerated with low blood pressure giving mannitol UF only 1 L today/heparin free GIB history
Next treatment will be on Thursday
-
-
Date of Service: April 08, 2024
CC / HPI / ROS
-
Chief Complaint:
End-stage renal disease
History of Present Illness:
ESRD on Thursday schedule
Hemodynamically more stable with occasional hypertensive spikes
Hyperkalemia resolved after dialysis provided on 04/06/2024
Review of Systems:
No reported chest pain
Abdominal distended
No fevers
Labs
-
Labs:
WBC 6.9 10^3/uL (4.8-10.8) 04/08/24 06:20
RBC 3.64 10^6/uL (4.70-6.10) L 04/08/24 06:20
Hgb 10.7 g/dL (13.0-18.0) L 04/08/24 06:20
Hct 34.0 % (39.0-52.0) L 04/08/24 06:20
Plt Count 293 10^3/uL (130-400) 04/08/24 06:20
Sodium 131 mmol/L (135-145) L 04/08/24 06:20
Potassium 5.9 mmol/L (3.5-5.1) H 04/08/24 06:20
Chloride 96 mmol/L (98-107) L 04/08/24 06:20
Carbon Dioxide 26 mmol/L (22-30) 04/08/24 06:20
BUN 46 mg/dl (9-20) H 04/08/24 06:20
Creatinine 5.6 mg/dL (0.7-1.3) H* 04/08/24 06:20
eGFR 10.97 04/08/24 06:20
Glucose 136 mg/dl (70-99) H 04/08/24 06:20
Calcium 8.1 mg/dl (8.4-10.2) L 04/08/24 06:20
Albumin 2.3 g/dl (3.5-5.0) L 04/07/24 06:52
Physical Exam
-
Vital Signs:
Vital Signs
Temp Pulse Resp BP Pulse Ox
97.6 F 90 18 143/62 96
04/08/24 07:37 04/08/24 07:37 04/08/24 07:37 04/08/24 07:37 04/08/24 07:37
Cardiovascular:: Regular rate and rhythm
Respiratory:: Bilateral: Coarse
Lung Excursion:: Normal
Abdomen:: Distended and Soft
Bowel Sounds:: Normal
Extremity Edema:: None: Bilateral:
Alfred Catheter: No
[2024-04-08 10:56] VITALS: BP 127/48
[2024-04-08 11:11] LABS: Glucose - Point of Care 110 mg/dl (70-99)
[2024-04-08] MEDS: NEPHROCAP 1 CAPSULE PO (12:24)
[2024-04-08] MEDS: DUPHALAC/CHRONULAC 20 GRAMS PO (12:24)
[2024-04-08] MEDS: APRESOLINE 100 MG PO ×2 (12:24→16:07)
[2024-04-08] MEDS: ZOLOFT 50 MG PO (12:25)
[2024-04-08] MEDS: PROCARDIA XL (EXTENDED RELEASE) 30 MG PO (12:26)
[2024-04-08] MEDS: PROTONIX 40 MG PO (12:26)
[2024-04-08] MEDS: RENVELA 1600 MG PO ×2 (12:26→18:40)
[2024-04-08] MEDS: RENVELA PO ×2 (12:26→17:37)
[2024-04-08] MEDS: COREG 6.25 MG PO (12:26)
[2024-04-08] MEDS: NOVOLOG FLEXPEN 4 UNITS SC (12:32)
--- NOTE | 2024-04-08 12:51 | W.DS.TRANS ---
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
-
Discharge Instructions:
Sleep Apnea Risk Intermediate
Discharge Diagnosis/Procedures IMPRESSION:
Missed hemodialysis due to reported
gastrointestinal illness.
Volume overload due to missed HD.
Hypertensive urgency due to above.
Hyperkalemia due to above.
Bradycardia improved with correction of
hyperkalemia
Conditions prior to admission:
Recent hospitalization with coffee-ground emesis
secondary to portal gastropathy and
anticoagulation with Coumadin
End-stage renal disease on HD Thursday
Thursday.
Accelerated hypertension, multidrug requiring.
Cirrhosis.
Portal gastropathy/esophageal varices grade 1
with prior history of life-threatening
hemorrhage.
Recurrent ascites
Paroxysmal atrial fibrillation
Anticoagulation with Coumadin
Chronic CHF preserved EF.
History of bilateral pleural effusions.
CAD.
Type 2 diabetes.
Dyslipidemia.
Chronic pain with opiate dependence.
Spinal stenosis.
Anxiety/depression
Diet 2 Gram Sodium
Instructions:
Stand-Alone Forms:
Changes to Home Medications: Yes
Discharge Medications:
DC Medications w/original date entered in [facility]
atorvastatin 80 mg tablet 80 mg PO HS High Cholesterol 12/23/22
lidocaine-prilocaine 2.5 %-2.5 % topical cream 1 applic topical MOWEFR PRN port access 12/23/22
vitamin B complex-vitamin C 100 mg-folic acid 1 mg tablet (Dialyvite) 1 tab PO DAILY Supplement 07/29/23
hydralazine 100 mg tablet 100 mg PO TID Blood Pressure 10/29/23
insulin lispro 100 unit/mL subcutaneous pen 4 unit (0.04 mL) SC AC Diabetes #0 mL 02/17/24
warfarin 3 mg tablet 3 mg PO DAILY Blood Clot Prevention/Tx #0 tabs 02/24/24
pantoprazole 40 mg tablet,delayed release 40 mg PO BID Gastrointestinal Issue 03/17/24
carvedilol 6.25 mg tablet 6.25 mg PO BID Blood pressure 1 month #60 tabs 03/31/24
lactulose 20 gram/30 mL oral solution 20 g (30 mL) PO BID Constipation 1 month #1,800 mL 03/31/24
nifedipine 30 mg tablet,extended release 30 mg PO BID Blood pressure 1 month #60 tabs 03/31/24
sertraline 25 mg tablet 50 mg (2 x 25 mg) PO DAILY Depression 1 month #60 tabs 03/31/24
sevelamer carbonate 800 mg tablet 1,600 mg (2 x 800 mg) PO AC Kidney Disease 1 month #180 tabs 03/31/24
acetaminophen 325 mg tablet (Tylenol) 650 mg PO Q6HPRN PRN mild pain 04/06/24
acetaminophen 500 mg tablet (Tylenol Extra Strength) 500 mg PO Q6HPRN PRN moderate pain 04/06/24
bisacodyl 10 mg rectal suppository (Dulcolax (bisacodyl)) 10 mg MD DAILYPRN PRN if no bm aftr mom 04/06/24
clonidine 0.3 mg/24 hr weekly transdermal patch 0.3 mg transdermal TH Blood pressure 04/06/24
ondansetron HCl 4 mg tablet 4 mg PO Q6HPRN PRN nausea 04/06/24
polyethylene glycol 3350 17 gram oral powder packet 17 g PO DAILYPRN PRN Constipation 04/06/24
fentanyl 12 mcg/hr transdermal patch 1 patch transdermal Q72H Chronic pain 1 week #5 ea 04/08/24
hydromorphone 2 mg tablet 2 mg PO Q6HPRN PRN Severe pain 7 days #30 tabs 04/08/24
Home Medication Changes
Oxycodone stopped while patient is on Fentanyl and Dilaudid
Imodium stopped while patient is on Lactulose
Pending Results: No
--- NOTE | 2024-04-08 13:16 | CM ---
Received notification from attending that patient is medically stable for discharge. Placed a call to [facility] and spoke with María Elena in admissions who stated that she will notify [facility] of patient's return. # For report [phone] and fax
[phone].
Medical necessity and transfer sheet completed and [facility].
IMM reviewed with patient's sister and she is agreeable. It is signed and on chart.
Plan: Case management will continue to follow and assist with discharge planning. Back to [facility].
[2024-04-08 14:50] VITALS: BP 160/61
[2024-04-08 16:07] VITALS: BP 152/75
[2024-04-08 16:49] LABS: Glucose - Point of Care 114 mg/dl (70-99)
[2024-04-08] MEDS: COUMADIN 3 MG PO (17:45)
== END 2024-04-08 19:11 | DRG 640 ==
LOC: 3 WEST ACU 11:38
PROVIDERS: Radiology Vascular & Interventional Radiology; Specialist; Student in an Organized Health Care Education/Training Program; ADMITTING PHYSICIAN Internal Medicine; EMERGENCY PHYSICIAN Emergency Medicine; FAMILY PHYSICIAN Nurse Practitioner Family; OTHER PHYSICIAN Internal Medicine
PROC: 5A1D70Z Performance of Urinary Filtration, Intermittent, Less than 6 Hours Per Day (ICD-10-PCS; 2024-04-06)
PROC: 0W9G3ZX Drainage of Peritoneal Cavity, Percutaneous Approach, Diagnostic (ICD-10-PCS; 2024-04-07)
DX: E87.5 Hyperkalemia (principal); N18.6 End stage renal disease; F11.20 Opioid dependence, uncomplicated; I13.2 Hypertensive heart and chronic kidney disease with heart failure and with stage 5 chronic kidney disease, or end stage renal disease; I50.32 Chronic diastolic (congestive) heart failure; R18.8 Other ascites; I85.10 Secondary esophageal varices without bleeding; E11.22 Type 2 diabetes mellitus with diabetic chronic kidney disease; Z99.2 Dependence on renal dialysis; Z87.891 Personal history of nicotine dependence; I48.0 Paroxysmal atrial fibrillation; F41.9 Anxiety disorder, unspecified; F32.A Depression, unspecified; Z91.199 Patient's noncompliance with other medical treatment and regimen due to unspecified reason; Z91.158 Patient's noncompliance with renal dialysis for other reason; I16.0 Hypertensive urgency; G89.29 Other chronic pain; I25.10 Atherosclerotic heart disease of native coronary artery without angina pectoris; K74.60 Unspecified cirrhosis of liver
CPT/HCPCS: 49083; 76705; 80048; 80053; 82042; 82248; 82947; 82962; 83036; 84132; 84157; 84484; 85025; 85610; 87015; 87070; 87205; 93005; 94640; 96374; 96375; 99291; G0257; P9047; Q5106

== ENCOUNTER 2024-04-11 22:34 | Emergency (ER) | payer OTHER, SELFPAY ==
[2024-04-11 22:41] VITALS: BP 171/90
[2024-04-11 23:10] LABS: Glucose - Point of Care 42 mg/dl (70-99)
[2024-04-11 23:41] LABS: Glucose - Point of Care 69 mg/dl (70-99)
[2024-04-11 23:47] VITALS: BP 146/78
[2024-04-11 23:49] LABS: % Basophils 0.2 % (0-2); % Eosinophils 2.1 % (0-6); % Immature Granulocytes 0.4 % (0-0.5); % Lymphocytes 5.4 % (20.5-51.1); % Monocytes 5.6 % (1.7-9.3); % Neutrophils 86.3 % (42.2-75.2); Absolute Eosinophils 0.1 10^3/uL (0-0.7); Absolute Lymphocytes 0.3 10^3/uL (1.2-3.4); Absolute Monocytes 0.3 10^3/uL (0.1-0.6); Absolute Neutrophils 4.5 10^3/uL (1.4-6.5); Hematocrit 35.8 % (39.0-52.0); Hemoglobin 11.2 g/dL (13.0-18.0); Mean Corp Hgb Conc. 31.3 g/dL (33.0-37.0); Mean Corpuscular Hgb 29.6 pg (27.0-31.0); Mean Corpuscular Volume 94.5 fL (80.0-94.0); Mean Platelet Volume 9.3 fL (7.4-10.4); Nucleated Red Blood Cells % 0 % (-); Platelet Count 283 10^3/uL (130-400); Red Blood Cell Count 3.79 10^6/uL (4.70-6.10); Red Cell Dist. Width 15.3 % (11.5-14.5); White Blood Cell Count 5.2 10^3/uL (4.8-10.8)
[2024-04-11 23:58] LABS: Glucose - Point of Care 102 mg/dl (70-99)
[2024-04-12] VITALS (25 sets, daily range): BP systolic 113–163; BP diastolic 66–86
[2024-04-12 00:06] LABS: ALT (SGPT) 18 U/L (0-50); AST (SGOT) 49 U/L (17-59); Albumin 2.6 g/dl (3.5-5.0); Alkaline Phosphatase 129 U/L (38-126); Blood Urea Nitrogen 28 mg/dl (9-20); Calcium 8.3 mg/dl (8.4-10.2); Carbon Dioxide 26 mmol/L (22-30); Chloride 99 mmol/L (98-107); Glucose 50 mg/dl (70-99); Sodium 132 mmol/L (135-145); Total Bilirubin 0.4 mg/dl (0.2-1.3); Total Protein 6.3 g/dl (6.3-8.2); eGFR 17.47
--- NOTE | 2024-04-12 00:14 | ED.GENMED ---
History of Present Illness
General
Chief Complaint: Change in Mental Status
Source: patient
Exam Limitations: none
Time Seen by Provider: 04/11/24 23:23
History of Present Illness
History of Present Illness:
58-year-old male end-stage renal disease patient on Thursday dialysis presents via EMS from half-way after returning home to his half-way after dialysis seemingly confused. Patient unaware why he is here. He has no
complaints of new pain shortness of breath. Of note, upon triage nurse found his fingerstick glucose to be 42. He is an insulin-dependent diabetic
Past History
Past History
ED Past Medical History: CAD, GERD, HTN, IDDM, Renal failure (End-stage renal disease), Psychiatric (Depression) and Other (Chronic low back pain, ambulatory dysfunction, anemia, pneumonia, pericardial effusion, pleural effusion, frequent falls,
neuropathy)
ED Past Surgical History: Other (Left arm AV graft)
Social History
Tobacco: Non-smoker
Alcohol: None
Drug: None
Personal:
Living: half-way
Employment: Disabled
Family History
Family History: Other (Noncontributory)
Phy Exam
Physical Exam
Physical Exam:
General: Chronically ill-appearing cachectic male no acute respiratory distress
HEENT: Normocephalic atraumatic
Heart: Regular rate and rhythm no murmurs
Lungs: Clear no wheeze
Abdomen is soft slightly distended nontender
Extremities: No cyanosis
Neurologic exam: Alert and oriented no facial asymmetry following commands no drift good strength
Course
Orders/Labs/Results
Orders:
Orders
04/11/24 23:28
CMP [Comprehensive Metabolic Panel] Urgent
Complete Blood Count/With Diff Urgent
04/12/24 00:06
Dextrose 50%-Water [Dextrose 50% Syringe] 25 grams IV NOW STA
Abnormal Lab Results
04/11/24 04/11/2424
23:08 23:28 23:39
RBC 3.79 L 10^6/uL
(4.70-6.10)
Hgb 11.2 L g/dL
(13.0-18.0)
Hct 35.8 L %
(39.0-52.0)
MCV 94.5 H fL
(80.0-94.0)
MCHC 31.3 L g/dL
(33.0-37.0)
RDW 15.3 H %
(11.5-14.5)
Absolute Lymphs (auto) 0.3 L 10^3/uL
(1.2-3.4)
Neutrophils % 86.3 H %
(42.2-75.2)
Lymphocytes % 5.4 L %
(20.5-51.1)
Sodium 132 L mmol/L
(135-145)
BUN 28 H mg/dl
(9-20)
Creatinine 3.8 H mg/dL
(0.7-1.3)
Glucose 50 L* mg/dl
(70-99)
Calcium 8.3 L mg/dl
(8.4-10.2)
Alkaline Phosphatase 129 H U/L
(38-126)
Albumin 2.6 L g/dl
(3.5-5.0)
POC Glucose 42 L* mg/dl 69 L mg/dl
(70-99) (70-99)
04/11/24 04/12/24
23:57 01:03
RBC
Hgb
Hct
MCV
MCHC
RDW
Absolute Lymphs (auto)
Neutrophils %
Lymphocytes %
Sodium
BUN
Creatinine
Glucose
Calcium
Alkaline Phosphatase
Albumin
POC Glucose 102 H mg/dl 115 H mg/dl
(70-99) (70-99)
04/11/24 23:28
04/11/24 23:28
Vital Signs
Initial and Last Documented VS:
Initial Vital Signs
Pulse Resp BP Pulse Ox
85 20 171/90 98
04/11/24 22:41 04/11/24 22:41 04/11/24 22:41 04/11/24 22:41
Last Documented Vital Signs
Temp Pulse Resp BP Pulse Ox
97.3 F 77 18 125/71 97
04/11/24 22:48 04/12/24 01:50 04/12/24 01:50 04/12/24 01:50 04/12/24 01:50
MDM/Problems Addressed
Differential Diagnosis Includes:
Patient brought here for confusion no confusion noted on my exam however he was noted to be hypoglycemic. Initially treated with juice and crackers. Will recheck values.
*Critical Care Note
Total Time (30-74mins, 75-104mins- exclusive of procedures): Not Applicable
Update Note
Update Note:
Patient reevaluated still alert. Serum glucose has been better since arrival. Check was 122. He has been alert since arrival. I believe the patient's altered mental status was from his hypoglycemia. He is now back to baseline. No indication
for admission will discharge back to [place]
ED Attending Note
-
Portions of this chart may have been created with voice recognition software.� Occasional wrong word or��sound alike� substitutions may have occurred due to the inherent limitations of voice recognition software.
Discharge Plan
Departure
Patient Disposition: Home (Routine Discharge)
Date of Disposition: 04/12/24
Time of Disposition: 02:02
Patient with high blood pressure during this ER visit?: No
Discharge Problem:
Hypoglycemia
Prescriptions:
No Action
atorvastatin 80 mg Tablet
80 mg PO HS
lidocaine-prilocaine 2.5-2.5 % Cream
1 applic TOPICAL MOWEFR PRN (Reason: port access)
Dialyvite 100-1 mg tablet
1 tab PO DAILY
hydralazine 100 mg tablet
100 mg PO TID
insulin lispro 100 unit/mL Insulin Pen
4 unit SC AC Qty: 0 0RF
Rx Instructions:
150-200=2UNITS, 201-250=4UNITS, 251-300=6UNITS
warfarin 3 mg Tablet
3 mg PO DAILY Qty: 0 0RF
pantoprazole 40 mg tablet,delayed release (DR/EC)
40 mg PO BID
nifedipine 30 mg Tablet Extended Release
30 mg PO BID 30 Days Qty: 60 0RF
sevelamer carbonate 800 mg Tablet
1,600 mg PO AC 30 Days Qty: 180 0RF
sertraline 25 mg Tablet
50 mg PO DAILY 30 Days Qty: 60 0RF
carvedilol 6.25 mg Tablet
6.25 mg PO BID 30 Days Qty: 60 0RF
lactulose 20 gram/30 mL Solution
20 g PO BID 30 Days Qty: 1800 0RF
acetaminophen [Tylenol] 325 mg Tablet
650 mg PO Q6HPRN PRN (Reason: mild pain/fever)
ondansetron HCl 4 mg Tablet
4 mg PO Q6HPRN PRN (Reason: nausea)
bisacodyl [Dulcolax (bisacodyl)] 10 mg Suppository
10 mg [place] DAILYPRN PRN (Reason: if no bm aftr mom)
polyethylene glycol 3350 17 gram powder in packet
17 g PO DAILYPRN PRN (Reason: Constipation)
clonidine 0.3 mg/24 hr patch weekly
0.3 mg transdermal TH
hydromorphone 2 mg Tablet
2 mg PO Q6HPRN PRN (Reason: Severe pain) 7 Days Qty: 30 0RF
fentanyl 12 mcg/hr Patch 72 Hour
1 patch transdermal Q72H 7 Days Qty: 5 0RF
loperamide 2 mg Capsule
2 mg PO Q6HPRN PRN (Reason: loose stool)
Referrals:
Masood Randall I., [Family Provider] -
Activity Restrictions/Additional Instructions:
Please continue current medication regimen. Check blood sugars. Return if needed
Interventions
Interventions:
*Risk Screen - Suicide Last Done: 04/11/24 22:45
*General Assessment Last Done: 04/11/24 22:45
*Neglect/Abuse Screening Last Done: 04/11/24 22:45
*ED COVID-19 Vaccine History Last Done: 04/11/24 22:45
ED- Neurological Assessment Last Done: 04/11/24 22:46
ED Swallowing Screen Last Done: 04/11/24 23:05
Discharge Date and Time
Print Language: SAMI
[2024-04-12 01:04] LABS: Glucose - Point of Care 115 mg/dl (70-99)
[2024-04-12 05:03] LABS: Glucose - Point of Care 96 mg/dl (70-99)
[2024-04-12 07:17] LABS: Glucose - Point of Care 89 mg/dl (70-99)
[2024-04-12 10:41] LABS: Glucose - Point of Care 113 mg/dl (70-99)
== END 2024-04-12 11:14 | disposition home or self-care (01) ==
LOC: EMR 22:34
PROVIDERS: Student in an Organized Health Care Education/Training Program; EMERGENCY PHYSICIAN Student in an Organized Health Care Education/Training Program; FAMILY PHYSICIAN Internal Medicine
DX: E11.649 Type 2 diabetes mellitus with hypoglycemia without coma (principal); E11.22 Type 2 diabetes mellitus with diabetic chronic kidney disease; I12.0 Hypertensive chronic kidney disease with stage 5 chronic kidney disease or end stage renal disease; N18.6 End stage renal disease; Z99.2 Dependence on renal dialysis; K21.9 Gastro-esophageal reflux disease without esophagitis; Z79.4 Long term (current) use of insulin; I25.10 Atherosclerotic heart disease of native coronary artery without angina pectoris
CPT/HCPCS: 99283; 80053; 82962; 85025

== ENCOUNTER 2024-04-27 18:25 | Inpatient (IN) | payer MEDICARE, SELFPAY ==
[2024-04-27] VITALS (35 sets, daily range): BP systolic 107–136; BP diastolic 53–75; BMI 21.3
--- NOTE | 2024-04-27 14:25 | ED.GENMED ---
History of Present Illness
General
Chief Complaint: Breathing Problem
Source: patient
Exam Limitations: none
Time Seen by Provider: 04/27/24 14:14
History of Present Illness
History of Present Illness:
See MDM
Past History
Past History
ED Past Medical History: CAD, GERD, HTN, IDDM, Renal failure (End-stage renal disease), Psychiatric (Depression) and Other (Chronic low back pain, ambulatory dysfunction, anemia, pneumonia, pericardial effusion, pleural effusion, frequent falls,
neuropathy)
ED Past Surgical History: Other (Left arm AV graft)
Social History
Tobacco: Non-smoker
Alcohol: None
Drug: None
Personal:
Living: [facility]
Employment: Disabled
Family History
Family History: Other (Noncontributory)
Phy Exam
Physical Exam
Physical Exam:
See MDM
Scores
Heart Failure Risk
Heart Failure Risk Score: Not Applicable
Course
Orders/Labs/Results
Orders:
Orders
04/27/24 13:59
EKG [Electrocardiogram (*1)] Urgent
Reason for Study: Shortness of Breath
EKG- Treatment ONCE
04/27/24 14:14
CR Chest Portable - 1 View Urgent
Comment:
Reason For Exam: SOB
Reason Study Needs to be Portable: Unable to Transport
04/27/24 14:17
Ammonia Urgent
COVID-19 Antigen Urgent
Source: Nasal Swab
Complete Blood Count/With Diff Urgent
Comprehensive Metabolic Panel Urgent
NT-proBNP Urgent
Troponin I Urgent
Influenza A+B Rapid Molecular Urgent
DEMETRIUS Source: Nasal Swab
Specimen Description:
04/27/24 15:10
NEPHROLOGY CONSULT Urgent
Consulting Provider: Jessica De La Fuente
Was physician already notified: Yes
Calcium Gluconate 1,000 mg IV NOW STA
Dextrose 50%-Water [Dextrose 50% Syringe] 12.5 grams IV Q66UENC PRN
Dextrose 50%-Water [Dextrose 50% Syringe] 25 grams IV NOW STA
Insulin Human Regular [Novolin R] 10 units IV NOW STA
Sodium Bicarbonate 50 meq IV NOW STA
04/27/24 15:11
Bedside Glucose PRE IV Insulin- HyperK+ NOW
04/27/24 15:13
Furosemide [Lasix] 80 mg IV NOW STA
04/27/24 16:41
Bedside Glucose POST IV Insulin- HyperK+ Q1HX2,Q2HX2
04/27/24 17:41
Potassium Urgent
Comment: draw 2 hours after regular insulin IV administration
Abnormal Lab Results
04/27/24
14:17
RBC 2.70 L 10^6/uL
(4.70-6.10)
Hgb 7.9 L g/dL
(13.0-18.0)
Hct 24.3 L %
(39.0-52.0)
MCHC 32.5 L g/dL
(33.0-37.0)
RDW 14.9 H %
(11.5-14.5)
Absolute Neuts (auto) 9.2 H 10^3/uL
(1.4-6.5)
Absolute Lymphs (auto) 0.5 L 10^3/uL
(1.2-3.4)
Neutrophils % 89.6 H %
(42.2-75.2)
Lymphocytes % 5.1 L %
(20.5-51.1)
Sodium 131 L mmol/L
(135-145)
Potassium 7.3 H* mmol/L
(3.5-5.1)
Carbon Dioxide 21 L mmol/L
(22-30)
BUN 75 H mg/dl
(9-20)
Creatinine 9.1 H* mg/dL
(0.7-1.3)
Glucose 62 L mg/dl
(70-99)
Calcium 8.0 L mg/dl
(8.4-10.2)
Ammonia < 9 L umol/L
(9-30)
Total Protein 6.1 L g/dl
(6.3-8.2)
Albumin 2.6 L g/dl
(3.5-5.0)
04/27/24 14:17
Vital Signs
Initial and Last Documented VS:
Initial Vital Signs
Pulse Ox
84
04/27/24 14:00
Last Documented Vital Signs
Temp Pulse Resp BP Pulse Ox
97.2 F 38 18 111/55 96
04/27/24 14:06 04/27/24 14:30 04/27/24 14:06 04/27/24 14:30 04/27/24 14:30
MDM/Problems Addressed
Differential Diagnosis Includes:
HPI and MDM Narrative:
58-year-old male presenting for evaluation of shortness of breath. Patient is a poor historian. He is not sure how long this has been going on for. Due to his symptoms and his bradycardia, he was sent to the emergency department. He was actually
due for dialysis today but missed it because of his symptoms. On exam, he is weak and lethargic and frail. He has hectic but has distended abdomen. He does have a history of ascites. He states it is not larger than it has been. Lung palomo
appear clear but he has poor inspiratory effort. Am concerned about significant metabolic abnormality given his history. Will obtain basic blood work and chest x-ray and ultimately admit
Physical exam
General: Weak, frail, cachectic
HEENT: protecting airway
Neck: appears supple
CV: No evidence of cyanosis. Bradycardic
Resp: No accessory muscle use. Poor air exchange
Abd: Distended and fluid-filled. No tenderness
Extremities: No deformities
Neuro: alert
Psych: Flat affect
Skin: Ashen
Problems Addressed including Acute and Chronic Conditions affecting care:
1. Shortness of breath
Acuity: acute
Prognosis: stable
Details: Will obtain chest x-ray and rule out COVID or influenza
2. Bradycardia
Acuity: acute
Prognosis: stable
Details: Potentially in the setting of metabolic abnormality. Will obtain basic blood work. Troponin ordered
3. Hyperkalemia
Acuity: acute
Prognosis: unstable
Details: Patient will require emergent dialysis
Updates
Potassium found to be elevated. This is likely the source of his symptomatic bradycardia. Nephrology made aware and will set up for emergent dialysis. Patient given calcium, insulin, bicarb and Lasix
Differential Diagnosis (but not limited to): Hyperkalemia, pneumonia, viral syndrome
Testing considered: D-dimer
Drug therapy (if applicable): OTC meds, please see d/c instruction regarding Rx drugs
Amount and/or Complexity of Data Reviewed
Clinical info obtained from: Patient
External data reviewed: N/A
Labs I independently reviewed (but not limited to): Hyperkalemia
Radiology: X-ray independently reviewed: Chest x-ray consistent with pulmonary edema
Pulse Ox: not hypoxic
EKG independently reviewed: Bradycardic, wide QRS, no STEMI
[employer] [place] [employer] Blasting: Bradycardia
Critical Care: The high probability of a clinically significant, sudden or life threatening deterioration of the cardiovascular system(s) required my full and direct attention, intervention and personal management. The aggregate critical care time
was 35 minutes. This time is in addition to time spent performing reported procedures but includes the following:
[x] Data Review and interpretation
[x] Patient assessment and monitoring of vital signs
[x] Documentation
[x] Medication orders and management
Risk of Complication:
Social Determinants of health: Good social support
Discussed with other providers: Hospitalist, mold burner
Escalation of Care includes Admit/Obs: Given the symptomatic hyperkalemia, patient requiring stabilization and emergent dialysis
Occasional wrong word or 'sound a like' substitutions may have occurred due to the inherent limitations of voice recognition software. Read the chart carefully and recognize, using context, where substitutions have occurred.
*Critical Care Note
Total Time (30-74mins, 75-104mins- exclusive of procedures): 35 min
ED Attending Note
-
Portions of this chart may have been created with voice recognition software.� Occasional wrong word or��sound alike� substitutions may have occurred due to the inherent limitations of voice recognition software.
Discharge Plan
Departure
Patient Disposition: Admit
Date of Disposition: 04/27/24
Time of Disposition: 15:20
Admit to: ICU
Presentation/result/management discussed w/ accepting MD/DO: Hospitalist
Discharge Problem:
Acute hyperkalemia, Pulmonary edema, Symptomatic bradycardia
Prescriptions:
No Action
atorvastatin 80 mg Tablet
80 mg PO HS
lidocaine-prilocaine 2.5-2.5 % Cream
1 applic TOPICAL MOWEFR PRN (Reason: port access)
Dialyvite 100-1 mg tablet
1 tab PO DAILY
hydralazine 100 mg tablet
100 mg PO TID
insulin lispro 100 unit/mL Insulin Pen
4 unit SC AC Qty: 0 0RF
Rx Instructions:
150-200=2UNITS, 201-250=4UNITS, 251-300=6UNITS
warfarin 3 mg Tablet
3 mg PO DAILY Qty: 0 0RF
pantoprazole 40 mg tablet,delayed release (DR/EC)
40 mg PO BID
nifedipine 30 mg Tablet Extended Release
30 mg PO BID 30 Days Qty: 60 0RF
sevelamer carbonate 800 mg Tablet
1,600 mg PO AC 30 Days Qty: 180 0RF
sertraline 25 mg Tablet
50 mg PO DAILY 30 Days Qty: 60 0RF
carvedilol 6.25 mg Tablet
6.25 mg PO BID 30 Days Qty: 60 0RF
lactulose 20 gram/30 mL Solution
20 g PO BID 30 Days Qty: 1800 0RF
acetaminophen [Tylenol] 325 mg Tablet
650 mg PO Q6HPRN PRN (Reason: mild pain/fever)
ondansetron HCl 4 mg Tablet
4 mg PO Q6HPRN PRN (Reason: nausea)
bisacodyl [Dulcolax (bisacodyl)] 10 mg Suppository
10 mg [place] DAILYPRN PRN (Reason: if no bm aftr mom)
polyethylene glycol 3350 17 gram powder in packet
17 g PO DAILYPRN PRN (Reason: Constipation)
clonidine 0.3 mg/24 hr patch weekly
0.3 mg transdermal TH
fentanyl 12 mcg/hr Patch 72 Hour
1 patch transdermal Q72H 7 Days Qty: 5 0RF
loperamide 2 mg Capsule
2 mg PO Q6HPRN PRN (Reason: loose stool)
acetaminophen [Tylenol Extra Strength] 500 mg Tablet
500 mg PO Q6HPRN PRN (Reason: mild pain)
cyclopentolate 2 % Drops
1 drp RIGHT EYE TID
insulin lispro 100 unit/mL Insulin Pen
1 sliding scale dose SC AC
Rx Instructions:
150-200=2units, 201-250=4units, 251-300=6units
difluprednate [Durezol] 0.05 % Drops
1 drp RIGHT EYE Q2H
dorzolamide-timolol (PF) [Cosopt (PF)] 2-0.5 % Dropperette
1 drp RIGHT EYE BID
Referrals:
Masood Randall I., DO [Family Provider] -
Interventions
Interventions:
*Risk Screen - Suicide Last Done: 04/27/24 14:05
*General Assessment Last Done: 04/27/24 14:04
*Neglect/Abuse Screening Last Done: 04/27/24 14:05
ED- Fall Risk Assessment Last Done: 04/27/24 14:10
*ED COVID-19 Vaccine History Last Done: 04/27/24 14:04
ED- Cardiac Assessment Last Done: 04/27/24 14:08
ED- Pulmonary Assessment Last Done: 04/27/24 14:08
Discharge Date and Time
Print Language: IRISH
[2024-04-27 14:42] LABS: % Basophils 0.3 % (0-2); % Eosinophils 0.5 % (0-6); % Immature Granulocytes 0.4 % (0-0.5); % Lymphocytes 5.1 % (20.5-51.1); % Monocytes 4.1 % (1.7-9.3); % Neutrophils 89.6 % (42.2-75.2); Absolute Eosinophils 0.1 10^3/uL (0-0.7); Absolute Lymphocytes 0.5 10^3/uL (1.2-3.4); Absolute Monocytes 0.4 10^3/uL (0.1-0.6); Absolute Neutrophils 9.2 10^3/uL (1.4-6.5); Hematocrit 24.3 % (39.0-52.0); Hemoglobin 7.9 g/dL (13.0-18.0); Mean Corp Hgb Conc. 32.5 g/dL (33.0-37.0); Mean Corpuscular Hgb 29.3 pg (27.0-31.0); Mean Platelet Volume 9.6 fL (7.4-10.4); Nucleated Red Blood Cells % 0 % (-); Platelet Count 254 10^3/uL (130-400); Red Cell Dist. Width 14.9 % (11.5-14.5); White Blood Cell Count 10.3 10^3/uL (4.8-10.8)
[2024-04-27 14:53] LABS: COVID-19 Antigen Negative (Negative)
[2024-04-27 14:54] LABS: ALT (SGPT) 11 U/L (0-50); AST (SGOT) 18 U/L (17-59); Albumin 2.6 g/dl (3.5-5.0); Alkaline Phosphatase 104 U/L (38-126); Blood Urea Nitrogen 75 mg/dl (9-20); Carbon Dioxide 21 mmol/L (22-30); Chloride 98 mmol/L (98-107); Estimated Creatinine Clearance 9 ml/min; Glucose 62 mg/dl (70-99); Potassium 7.3 mmol/L (3.5-5.1); Sodium 131 mmol/L (135-145); Total Bilirubin 0.5 mg/dl (0.2-1.3); Total Protein 6.1 g/dl (6.3-8.2); eGFR 6.13
[2024-04-27 14:56] LABS: Ammonia < 9 umol/L (9-30)
[2024-04-27 15:00] LABS: Troponin I 0.013 ng/ml
[2024-04-27] MEDS: LASIX 80 MG IV (15:17)
[2024-04-27] MEDS: SODIUM BICARBONATE 50 MEQ IV (15:21)
[2024-04-27] MEDS: CALCIUM GLUCONATE 1000 MG IV (15:22)
[2024-04-27 15:23] LABS: NT-proBNP > 27000 pg/ml
[2024-04-27 15:37] LABS: Glucose - Point of Care 59 mg/dl (70-99)
[2024-04-27] MEDS: DEXTROSE 50% SYRINGE 25 GRAMS IV ×2 (15:38→17:09)
[2024-04-27] MEDS: NOVOLIN R 10 UNITS IV (15:39)
[2024-04-27 15:59] LABS: Glucose - Point of Care 138 mg/dl (70-99)
[2024-04-27 17:08] LABS: Glucose - Point of Care 40 mg/dl (70-99)
[2024-04-27] MEDS: RETACRIT 10000 UNITS IV (17:10)
[2024-04-27] MEDS: FLEXBUMIN 25% FOR HEMODIALYSIS 12.5 GRAMS IV (17:11)
--- NOTE | 2024-04-27 17:11 | HPS.HSE ---
Family Physician
-
Family Physician: Masood Randall
Chief Complaint
-
fatigue, nausea, missed HD Thursday, bradycardia
History of Present Illness
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
dependence, who presenting to the ED from for evaluation of dyspnea, nausea, and fatigue. He missed HD Thursday and today due to his symptoms. In the ED he is found to have HR in the 30s, wide QRS on EKG, and K of 7.3. Nephrology was consulted from
the ED for emergency HD and this has been initiated at the time of my history and physical. He received calcium, insulin, dextrose, bicarb, and Lasix emergently for cardiac membrane stabilization. The pt states that he is living with cousins right
now, he missed HD due to feeling lousy, nausea, fatigue, no fever, no chills, no cough, no CP currently, no active bleeding. He says he has ascites and liver disease due to kidneys, and does not drink liquor (use to when he was younger but not
currently).
Recent hospitalization w MD date of 04/08/24 due to hyperkalemia, bradycardia, and missed HD.
Medical History
Past Medical History
Past Medical History: Reports Other (End-stage renal disease, cirrhosis, paroxysmal atrial fibrillation, CAD, cardiomyopathy, type 2 diabetes, depression)
Past Surgical History: Reports None
Social History
Tobacco: Former Smoker
Alcohol: None
Drug: None
Personal: Single
Living: Skilled Nursing
Family History
Family History: Not pertinent
Allergies / Home Medications
Allergies reflects when Allergies were last updated in [facility].
Home Medications with original date entered in [facility]
Allergy/Medication List:
Allergies
Allergy/AdvReac Type Severity Reaction Status Date / Time
No Known Allergies Allergy Verified 04/27/24 13:56
Home Medications
atorvastatin 80 mg tablet 80 mg PO HS High Cholesterol 12/23/22
lidocaine-prilocaine 2.5 %-2.5 % topical cream 1 applic topical MOWEFR PRN port access 12/23/22
vitamin B complex-vitamin C 100 mg-folic acid 1 mg tablet (Dialyvite) 1 tab PO DAILY Supplement 07/29/23
hydralazine 100 mg tablet 100 mg PO TID Blood Pressure 10/29/23
insulin lispro 100 unit/mL subcutaneous pen 4 unit (0.04 mL) SC AC Diabetes #0 mL 02/17/24
warfarin 3 mg tablet 3 mg PO DAILY Blood Clot Prevention/Tx #0 tabs 02/24/24
pantoprazole 40 mg tablet,delayed release 40 mg PO BID Gastrointestinal Issue 03/17/24
carvedilol 6.25 mg tablet 6.25 mg PO BID Blood pressure 1 month #60 tabs 03/31/24
lactulose 20 gram/30 mL oral solution 20 g (30 mL) PO BID Constipation 1 month #1,800 mL 03/31/24
nifedipine 30 mg tablet,extended release 30 mg PO BID Blood pressure 1 month #60 tabs 03/31/24
sertraline 25 mg tablet 50 mg (2 x 25 mg) PO DAILY Depression 1 month #60 tabs 03/31/24
sevelamer carbonate 800 mg tablet 1,600 mg (2 x 800 mg) PO AC Kidney Disease 1 month #180 tabs 03/31/24
acetaminophen 325 mg tablet (Tylenol) 650 mg PO Q6HPRN PRN mild pain/fever 04/06/24
bisacodyl 10 mg rectal suppository (Dulcolax (bisacodyl)) 10 mg GA DAILYPRN PRN if no bm aftr mom 04/06/24
clonidine 0.3 mg/24 hr weekly transdermal patch 0.3 mg transdermal TH Blood pressure 04/06/24
ondansetron HCl 4 mg tablet 4 mg PO Q6HPRN PRN nausea 04/06/24
polyethylene glycol 3350 17 gram oral powder packet 17 g PO DAILYPRN PRN Constipation 04/06/24
fentanyl 12 mcg/hr transdermal patch 1 patch transdermal Q72H Chronic pain 1 week #5 ea 04/08/24
loperamide 2 mg capsule 2 mg PO Q6HPRN PRN loose stool 04/11/24
acetaminophen 500 mg tablet (Tylenol Extra Strength) 500 mg PO Q6HPRN PRN mild pain 04/27/24
cyclopentolate 2 % eye drops 1 drp RIGHT EYE TID 04/27/24
difluprednate 0.05 % eye drops (Durezol) 1 drp RIGHT EYE Q2H 04/27/24
dorzolamide-timolol (PF) 2 %-0.5 % eye drops in a dropperette (Cosopt (PF)) 1 drp RIGHT EYE BID 04/27/24
insulin lispro 100 unit/mL subcutaneous pen 1 sliding scale dose SC AC 04/27/24
Review of Systems
-
A 12 point ROS was completed and negative except as noted: Yes
Physical Exam
Vital Signs
Vital Signs
Temp Pulse Resp BP Pulse Ox
97.2 F 40 18 118/55 96
04/27/24 14:06 04/27/24 15:17 04/27/24 14:06 04/27/24 15:17 04/27/24 14:30
Physical Exam
General: Appears Chronically Ill and Cachectic
HEENT: NormoCephalic, Anicteric and Other (dry mucous membranes)
Respiratory: Crackles
Cardiac: Bradycardia
GI: Soft, Non Tender and Other (distended)
Musculoskeletal: No Clubbing, No Cyanosis and Other (left arm with bruit at AV fistula site)
Skin: Warm and Dry
Neuro: AO x 3, No Motor Deficits and Nonfocal/grossly intact
Psych: Calm
Laboratory Results
-
04/27/24 14:17
Laboratory Results
Total Bilirubin 0.5 mg/dl (0.2-1.3) 04/27/24 14:17
AST 18 U/L (17-59) 04/27/24 14:17
ALT 11 U/L (0-50) 04/27/24 14:17
Alkaline Phosphatase 104 U/L (38-126) 04/27/24 14:17
Troponin I 0.013 ng/ml 04/27/24 14:17
Data Reviewed
-
Diagnostic Radiology: Report Reviewed by me (pulmonary edema pattern with small bilateral pleural effusions.)
Impression/Plan
-
IMPRESSION:The patient is a 58-year-old male with PMH significant for ESRD on HD MWF, CAD, HFpEF, GERD, HTN, type 2 DM, portal gastropathy, esophageal varices, ascites, w GI bleed, paroxysmal A.fib on Coumadin, opiate dependence, who presenting to
the ED from for evaluation of dyspnea, nausea, and fatigue. He missed HD Thursday and today due to his symptoms. In the ED he is found to have HR in the 30s, wide QRS on EKG, and K of 7.3. Nephrology was consulted from the ED for emergency HD and this
has been initiated at the time of my history and physical. He received calcium, insulin, dextrose, bicarb, and Lasix emergently for cardiac membrane stabilization.
Recent hospitalization w DC date of 04/08/24 due to hyperkalemia, bradycardia, and missed HD.
#Severe hyperkalemia K 7.3 with EKG changes, associated with volume overload and pulmonary edema on CXR
-Admit to ICU due to ESRD with multiple missed HD
-Calcium, dextrose, insulin, bicarbonate, Lasix 80 IV, epoetin, albumin received in ED
-currently on HD in ED
-monitor repeat K this evening, monitor on tele
-Nephro consultation appreciated
#Severe anemia, Hgb 7.9, no known active bleeding
-serial monitoring of H & H
-IV PPI
-epo in ED
-check INR, hold coumadin for tonight pending labs
Chronic medical conditions:
1. End-stage renal disease, on hemodialysis Thursday, Thursday,
Thursday.
2. Accelerated hypertension, multidrug requiring.
3. Cirrhosis. Multiple paracentesis most recent 03/2024
4. Portal gastropathy, esophageal virus grade 1 with prior history
of life-threatening hemorrhage.
5. Recurrent ascites.
6. Paroxysmal atrial fibrillation.
7. Anticoagulation with Coumadin.
8. Chronic heart failure with preserved ejection fraction.
9. History of bilateral pleural effusions.
10. Coronary artery disease.
11. Type 2 diabetes.
12. Dyslipidemia.
13. Chronic pain with opiate dependence.
14. Spinal stenosis.
15. Anxiety and depression.
DVT proph-PCDs, on coumadin
Full code
[2024-04-27] MEDS: MANNITOL 25% 12.5 GRAMS IV (17:12)
[2024-04-27 17:22] LABS: Glucose - Point of Care 90 mg/dl (70-99)
--- NOTE | 2024-04-27 17:45 | W.CON.NEPH ---
Consultation
-
Date/Time Consultation Requested: 04/27/24 1500
Date/Time Consultation Performed: 04/27/24 1600
Requesting Provider: Star Small
Performing Provider: Jessica Bruns
Reason for Consultation: ESRD, high k
Medical History
-
Chief Complaint: low HR
History of Present Illness:
58 yo man with hx ESRD on HD MWF from the [facility](previously T[facility]Sat at [facility]), non compliance with HDs, CAD, atrial fibrillation on coumadin, IDDM, HTN on Procardia, clonidine,hydralazine, coreg, HLD on statin, Vascepa,
hyperphosphatemia on Renvela, cirrhosis and ascites, chronic pain on fentanyl patch who had several admissions to this hospital pretty much every few weeks, for various reasons mainly for GI bleeding, missing dialysis with abnormal potassium,
lasted discharged on 04/12 now presents from the alf with a low heart rate in 30s, potassium noted over 7 in ER, soft bps, hb 7.9. Patient reports of missing dialysis on Thursday since he wasn't feeling well. Though had no acute complaints
other than chronic pain. s/p temporization with calcium and insulin in ER. Nephrology consulted for urgent dialysis needs.
History is limited as patient is not very cooperative to provide details. no noted history of fever or nausea or vomiting. No chest pain or shortness of breath. Though chest x-ray shows pulmonary edema and small pleural effusion.
Past Medical History
1. ESRD x5 years presumed due to diabetic nephropathy.
2. Severe GI bleeding
3. Chronic back pain.
4. Atrial fibrillation on Coumadin.
5. Chronic anemia.
6. History of thoracentesis.
cirrhosis and ascites s/p paracentesis
7. History of pericardiocentesis at outside hospital back in fall of 2022.
8. Elevated HEYDI with subsequent negative testing.
9. Peripheral neuropathy.
10. History of left upper extremity radiocephalic AV fistula.
11. History of hypertension on multi-drug regimen.
12. History of coronary artery disease.
13. History of peripheral eosinophilia.
14. Hyperphosphatemia.
Past Medical History: Other
Past Surgical History: Other (Left arm AVG)
Social History
Tobacco: Former Smoker
Alcohol: Former
Drug: None
Living: Group Home
Family History
Family History: Not Pertinent
Allergies / Home Medications
Allergy/AdvReac Type Severity Reaction Status Date / Time
No Known Allergies Allergy Verified 04/27/24 13:56
�Medication �Instructions �Recorded �Confirmed �Type
atorvastatin 80 mg tablet 80 mg PO HS High Cholesterol 12/23/22 04/27/24 History
lidocaine-prilocaine 2.5 %-2.5 % 1 applic topical MOWEFR PRN port 12/23/22 04/27/24 History
topical cream access
vitamin B complex-vitamin C 100 1 tab PO DAILY Supplement 07/29/23 04/27/24 History
mg-folic acid 1 mg tablet
(Dialyvite)
hydralazine 100 mg tablet 100 mg PO TID Blood Pressure 10/29/23 04/27/24 History
insulin lispro 100 unit/mL 4 unit (0.04 mL) SC AC Diabetes #0 02/17/24 04/27/24 Rx
subcutaneous pen mL
warfarin 3 mg tablet 3 mg PO DAILY Blood Clot 02/24/24 04/27/24 Rx
Prevention/Tx #0 tabs
pantoprazole 40 mg tablet,delayed 40 mg PO BID Gastrointestinal Issue 03/17/24 04/27/24 History
release
carvedilol 6.25 mg tablet 6.25 mg PO BID Blood pressure 1 03/31/24 04/27/24 Rx
month #60 tabs
lactulose 20 gram/30 mL oral 20 g (30 mL) PO BID Constipation 1 03/31/24 04/27/24 Rx
solution month #1,800 mL
nifedipine 30 mg tablet,extended 30 mg PO BID Blood pressure 1 03/31/24 04/27/24 Rx
release month #60 tabs
sertraline 25 mg tablet 50 mg (2 x 25 mg) PO DAILY 03/31/24 04/27/24 Rx
Depression 1 month #60 tabs
sevelamer carbonate 800 mg tablet 1,600 mg (2 x 800 mg) PO AC Kidney 03/31/24 04/27/24 Rx
Disease 1 month #180 tabs
acetaminophen 325 mg tablet 650 mg PO Q6HPRN PRN mild 04/06/24 04/27/24 History
(Tylenol) pain/fever
bisacodyl 10 mg rectal suppository 10 mg WA DAILYPRN PRN if no bm 04/06/24 04/27/24 History
(Dulcolax (bisacodyl)) aftr mom
clonidine 0.3 mg/24 hr weekly 0.3 mg transdermal TH Blood 04/06/24 04/27/24 History
transdermal patch pressure
ondansetron HCl 4 mg tablet 4 mg PO Q6HPRN PRN nausea 04/06/24 04/27/24 History
polyethylene glycol 3350 17 gram 17 g PO DAILYPRN PRN Constipation 04/06/24 04/27/24 History
oral powder packet
fentanyl 12 mcg/hr transdermal 1 patch transdermal Q72H Chronic 04/08/24 04/27/24 Rx
patch pain 1 week #5 ea
loperamide 2 mg capsule 2 mg PO Q6HPRN PRN loose stool 04/11/24 04/27/24 History
acetaminophen 500 mg tablet 500 mg PO Q6HPRN PRN mild pain 04/27/24 04/27/24 History
(Tylenol Extra Strength)
cyclopentolate 2 % eye drops 1 drp RIGHT EYE TID 04/27/24 04/27/24 History
difluprednate 0.05 % eye drops 1 drp RIGHT EYE Q2H 04/27/24 04/27/24 History
(Durezol)
dorzolamide-timolol (PF) 2 %-0.5 % 1 drp RIGHT EYE BID 04/27/24 04/27/24 History
eye drops in a dropperette (Cosopt
(PF))
insulin lispro 100 unit/mL 1 sliding scale dose SC AC 04/27/24 04/27/24 History
subcutaneous pen
Review of Systems
-
difficult to obtain as patient is not very cooperative
All other systems: Negative unless noted
Physical Exam
Vital Signs
Vital Signs
Temp Pulse Resp BP Pulse Ox
97.2 F 40 18 118/55 96
04/27/24 14:06 04/27/24 15:17 04/27/24 14:06 04/27/24 15:17 04/27/24 14:30
Lab Results
WBC 10.3 10^3/uL (4.8-10.8) 04/27/24 14:17
RBC 2.70 10^6/uL (4.70-6.10) L 04/27/24 14:17
Hgb 7.9 g/dL (13.0-18.0) L 04/27/24 14:17
Hct 24.3 % (39.0-52.0) L 04/27/24 14:17
Plt Count 254 10^3/uL (130-400) 04/27/24 14:17
Sodium 131 mmol/L (135-145) L 04/27/24 14:17
Chloride 98 mmol/L (98-107) 04/27/24 14:17
Carbon Dioxide 21 mmol/L (22-30) L 04/27/24 14:17
BUN 75 mg/dl (9-20) H 04/27/24 14:17
Creatinine 9.1 mg/dL (0.7-1.3) H* 04/27/24 14:17
eGFR 6.13 04/27/24 14:17
Glucose 62 mg/dl (70-99) L 04/27/24 14:17
Calcium 8.0 mg/dl (8.4-10.2) L 04/27/24 14:17
Qsm-H-Uizntiivlfh Pept > 09569 pg/ml 04/27/24 14:17
Albumin 2.6 g/dl (3.5-5.0) L 04/27/24 14:17
CXR:
IMPRESSION:
Radiographic findings highly suggestive of pulmonary edema pattern with small bilateral pleural effusions.
Physical Exam
General: Awake, Alert, Oriented, AOx3, No Distress and Nontoxic
HEENT: EOMI, Anicteric and Facial Symmetry
Respiratory: Normal Excursion, Nonlabored Respirations and Other ( Rales at the bases)
Cardiac: S1/S2 and Regular Rate/Rhythm
Breast: Deferred by me
Abdomen: Soft, Nontender and Other ( distended)
Musculoskeletal: No Cyanosis and Edema ( trace)
Skin: Warm and Dry
Neuro: Nonfocal/Grossly Intact
Psych: Appropriate and Other ( poor insight)
Vascular Access: AVF
Data Reviewed
-
Labs: Labs Reviewed by me and Discussed with Patient
Assessment/Plan
-
Impression:
Hyperkalemia
Bradycardia
h/o GIB /portal gastropathy
Multi drug hypertension
Recurrent ascites
ESRD on hemodialysis at [facility], previously TTS [facility]
Anemia of ESRD
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
Paroxysmal Atrial Fibrillation
Chronic HFpEF
History of bilateral pleural effusions status post thoracentesis
History of pericardial effusion status post pericardiocentesis
Coronary artery disease
Essential hypertension
DM2 with multiple microvascular complications
Hyperlipidemia
Spinal stenosis
Anxiety/depression
L radial AVF
Plan:
A/w bradycardia, missed HD again
Hyperkalemia -life-threatening, symptomatic-arrange emergent dialysis now
bradycardia could be from high k however he also on BB (started 2 admits ago admit)+chr clonidine
Maintain phos binders
UF as tolerates, chest x-ray noted with a pulmonary edema
Resume antihypertensives tomorrow based on BPs
Hemoglobin is lower than the last admission,prn transfusion-known history of GI bleeding
he has been noncompliant with dialysis for several times and required multiple admissions for emergent dialysis which carries a very high mortality risk
This was discussed with the patient, recall patient was seen by the palliative care In previous admission however refused hospice
broached this topic today with the patient which he is not interested to discuss at this time and he doesn't want be compliant either
strict renal diet and FR
--- NOTE | 2024-04-27 17:45 | W.PN.NEPH.HD ---
Assessment
-
pt seen during HD
vitals stable
UF as tolerates
low k bath for severe hyperkalemia
AVF functions fine
Progress Note - Hemodialysis
-
Date of Service: April 27, 2024
Duration: 30 minutes and 3 hours
Potassium Bath: 2
Calcium Bath: 2.5
Opti-Dialyzer: 160
Ultrafiltration: Other (1.5-2.5)
Blood Flow: 400
Dialysate Flow: 600
Heparin: no
EPO: [id number]
[2024-04-27 18:01] LABS: Glucose - Point of Care 70 mg/dl (70-99)
[2024-04-27 18:32] LABS: Glucose - Point of Care 70 mg/dl (70-99)
[2024-04-27 19:03] LABS: Glucose - Point of Care 80 mg/dl (70-99)
[2024-04-27 20:17] LABS: Glucose - Point of Care 89 mg/dl (70-99)
[2024-04-27] MEDS: TYLENOL 500 MG PO (20:24)
[2024-04-27 21:08] LABS: Magnesium 2.6 mg/dl (1.6-2.3)
[2024-04-27] MEDS: PROCARDIA XL (EXTENDED RELEASE) 30 MG PO (21:47)
[2024-04-27] MEDS: PROTONIX 40 MG PO (21:47)
[2024-04-27] MEDS: APRESOLINE 100 MG PO (21:47)
[2024-04-27] MEDS: LIPITOR 80 MG PO (21:48)
[2024-04-27] MEDS: CYCLOGYL 2% EYE DROPS 1 DROP RIGHT EYE (21:49)
[2024-04-27] MEDS: TIMOPTIC 0.5% OPHTHALMIC SOLUTION 1 DROP RIGHT EYE (21:49)
[2024-04-27] MEDS: TRUSOPT 2% OPHTHALMIC SOLUTION 1 DROP RIGHT EYE (21:49)
[2024-04-27] MEDS: DUPHALAC/CHRONULAC 20 GRAMS PO (21:50)
[2024-04-27 21:56] LABS: Glucose - Point of Care 97 mg/dl (70-99)
[2024-04-27 22:26] LABS: INR 2.67; PT 28.8 Sec (11.4-14.6)
[2024-04-27 22:27] LABS: APTT 74.5 Sec (23.4-35.0)
[2024-04-27 22:45] LABS: Blood Urea Nitrogen 32 mg/dl (9-20); Calcium 7.8 mg/dl (8.4-10.2); Carbon Dioxide 29 mmol/L (22-30); Chloride 96 mmol/L (98-107); Estimated Creatinine Clearance 18 ml/min; Glucose 102 mg/dl (70-99); Potassium 4.4 mmol/L (3.5-5.1); Sodium 132 mmol/L (135-145); eGFR 14.65
[2024-04-27] MEDS: DURAGESIC 12 MCG/HR PATCH 1 PATCH TRANSDERM (23:08)
--- NOTE | 2024-04-27 23:46 | PTCARENOTE ---
received pt from Ed around 2100, pt AAOX3, c/o of 8/10 back pain, lethargic PEARL, BBB prolonged QT on monitor, QT monitoring turned on, +1 lower extremities, weak pedals, 4L NC 100% diminished and coarse throughout, BSx4 ascites distended, pt
finished HD in the ED, oliguric due to void, stage 1 sacrum foam applied, MASB B/L groin Desenex ordered by G[employer] COM[employer]URBINE OPERATOR, 22G RAC, placed a 20G RFA lab pulled from line and sent, LUE restriction for fistula in forearm, call nieto within reach, pt able to make
needs known, otherwise refer to documentation.
[2024-04-28] VITALS (34 sets, daily range): BP systolic 86–160; BP diastolic 45–74; BMI 21.8
[2024-04-28 03:22] LABS: Glucose - Point of Care 95 mg/dl (70-99)
[2024-04-28] MEDS: DESENEX/MITRAZOL/ZEASORB 1 APPLIC TOPICAL ×3 (04:33→21:35)
--- NOTE | 2024-04-28 04:46 | PTCARENOTE ---
systems reviewed, labs sent, pt resting comfortably, no change from previous assessment, otherwise refer to documentation.
[2024-04-28 05:08] LABS: Hematocrit 22.7 % (39.0-52.0); Hemoglobin 7.1 g/dL (13.0-18.0); Mean Corp Hgb Conc. 31.3 g/dL (33.0-37.0); Mean Corpuscular Hgb 29.3 pg (27.0-31.0); Mean Corpuscular Volume 93.8 fL (80.0-94.0); Mean Platelet Volume 9.6 fL (7.4-10.4); Platelet Count 205 10^3/uL (130-400); Red Blood Cell Count 2.42 10^6/uL (4.70-6.10); Red Cell Dist. Width 14.8 % (11.5-14.5); White Blood Cell Count 6.7 10^3/uL (4.8-10.8)
[2024-04-28 05:55] LABS: Glucose - Point of Care 85 mg/dl (70-99)
[2024-04-28 06:00] LABS: ALT (SGPT) < 10 U/L (0-50); AST (SGOT) 19 U/L (17-59); Albumin 2.3 g/dl (3.5-5.0); Alkaline Phosphatase 91 U/L (38-126); Blood Urea Nitrogen 38 mg/dl (9-20); Calcium 7.7 mg/dl (8.4-10.2); Carbon Dioxide 28 mmol/L (22-30); Chloride 97 mmol/L (98-107); Estimated Creatinine Clearance 16 ml/min; Glucose 83 mg/dl (70-99); Potassium 5.2 mmol/L (3.5-5.1); Sodium 132 mmol/L (135-145); Total Bilirubin 0.6 mg/dl (0.2-1.3); Total Protein 5.6 g/dl (6.3-8.2); eGFR 12.88
--- NOTE | 2024-04-28 07:16 | CON.INTV ---
Consultation
Consultation Request
Date/Time Consultation Requested: 04/28/24
Date/Time Consultation Performed: 04/28/24
Performing Provider: Ivy
Reason for Consultation: ICU
Medical History
-
History of Present Illness:
Patient is a 58-year-old male with PMH significant for ESRD on HD MWF and known noncompliance, CAD, HFpEF, GERD, HTN, Type 2 DM, portal gastropathy, esophageal varices, recurrent ascites requiring paracentesis, presenting to ED for evaluation of
dyspnea, nausea, and fatigue. He missed his last two sessions of HD prior to admission.
In the ED he is found to have HR in the 30s, wide QRS on EKG, and K of 7.3. He received a dose of calcium, insulin, dextrose, bicarb, and Lasix emergently. Nephrology was consulted from the ED for emergency HD. He was recently hospitalized at
for UGIB/coffee ground emesis/seen by GI and discharged 04/08/24. He has been admitted monthly to with a total of 8 admission in 2023.
Of note he was evaluated by palliative care on 03/24/24 and declined comfort care though he was refused treatment then. Recommended treatment for depression.
Admitted to ICU for emergent HD, not on pressors.
Past Medical History
Past Medical History: Other (see list below)
Social History
Tobacco: Smoker
Alcohol: None
Drug: None
Family History
Family History: Reviewed & Not Pertinent
Allergies / Home Medications
Allergies
Allergy/AdvReac Type Severity Reaction Status Date / Time
No Known Allergies Allergy Verified 04/27/24 13:56
Home Medications
�Medication �Instructions �Recorded �Confirmed �Last Taken �Type
atorvastatin 80 mg tablet 80 mg PO HS High Cholesterol 12/23/22 04/27/24 09/08/23 History
lidocaine-prilocaine 2.5 %-2.5 % 1 applic topical MOWEFR PRN port 12/23/22 04/27/24 Unknown History
topical cream access
vitamin B complex-vitamin C 100 1 tab PO DAILY Supplement 07/29/23 04/27/24 09/08/23 History
mg-folic acid 1 mg tablet
(Dialyvite)
hydralazine 100 mg tablet 100 mg PO TID Blood Pressure 10/29/23 04/27/24 Unknown History
insulin lispro 100 unit/mL 4 unit (0.04 mL) SC AC Diabetes #0 02/17/24 04/27/24 Unknown Rx
subcutaneous pen mL
warfarin 3 mg tablet 3 mg PO DAILY Blood Clot 02/24/24 04/27/24 Unknown Rx
Prevention/Tx #0 tabs
pantoprazole 40 mg tablet,delayed 40 mg PO BID Gastrointestinal Issue 03/17/24 04/27/24 Unknown History
release
carvedilol 6.25 mg tablet 6.25 mg PO BID Blood pressure 1 03/31/24 04/27/24 Unknown Rx
month #60 tabs
lactulose 20 gram/30 mL oral 20 g (30 mL) PO BID Constipation 1 03/31/24 04/27/24 Unknown Rx
solution month #1,800 mL
nifedipine 30 mg tablet,extended 30 mg PO BID Blood pressure 1 03/31/24 04/27/24 Unknown Rx
release month #60 tabs
sertraline 25 mg tablet 50 mg (2 x 25 mg) PO DAILY 03/31/24 04/27/24 Unknown Rx
Depression 1 month #60 tabs
sevelamer carbonate 800 mg tablet 1,600 mg (2 x 800 mg) PO AC Kidney 03/31/24 04/27/24 Unknown Rx
Disease 1 month #180 tabs
acetaminophen 325 mg tablet 650 mg PO Q6HPRN PRN mild 04/06/24 04/27/24 Unknown History
(Tylenol) pain/fever
bisacodyl 10 mg rectal suppository 10 mg WA DAILYPRN PRN if no bm 04/06/24 04/27/24 Unknown History
(Dulcolax (bisacodyl)) aftr mom
clonidine 0.3 mg/24 hr weekly 0.3 mg transdermal TH Blood 04/06/24 04/27/24 Unknown History
transdermal patch pressure
ondansetron HCl 4 mg tablet 4 mg PO Q6HPRN PRN nausea 04/06/24 04/27/24 Unknown History
polyethylene glycol 3350 17 gram 17 g PO DAILYPRN PRN Constipation 04/06/24 04/27/24 Unknown History
oral powder packet
fentanyl 12 mcg/hr transdermal 1 patch transdermal Q72H Chronic 04/08/24 04/27/24 Unknown Rx
patch pain 1 week #5 ea
loperamide 2 mg capsule 2 mg PO Q6HPRN PRN loose stool 04/11/24 04/27/24 Unknown History
acetaminophen 500 mg tablet 500 mg PO Q6HPRN PRN mild pain 04/27/24 04/27/24 Unknown History
(Tylenol Extra Strength)
cyclopentolate 2 % eye drops 1 drp RIGHT EYE TID 04/27/24 04/27/24 Unknown History
difluprednate 0.05 % eye drops 1 drp RIGHT EYE Q2H 04/27/24 04/27/24 Unknown History
(Durezol)
dorzolamide-timolol (PF) 2 %-0.5 % 1 drp RIGHT EYE BID 04/27/24 04/27/24 Unknown History
eye drops in a dropperette (Cosopt
(PF))
insulin lispro 100 unit/mL 1 sliding scale dose SC AC 04/27/24 04/27/24 Unknown History
subcutaneous pen
Review of Systems
-
History Source: Patient
All other systems: Negative unless noted
Vitals / Labs / Diagnostic Testing
Vital Signs
Temp Pulse Resp BP Pulse Ox
98.7 F 80 18 101/53 93
04/28/24 03:56 04/28/24 06:00 04/28/24 06:00 04/28/24 06:00 04/28/24 06:00
Lab Data
04/28/24 04:36
04/28/24 04:36
Laboratory Results
04/27/24
22:03
PT 28.8 H
INR 2.67
APTT 74.5 H
Microbiology
04/27/24 14:17 Nasal Swab Influenza Types A & B (FELIBERTO) - Final
Negative for Influenza A & B, NAAT
Negative results must be combined with clinical observations
and patient history.
Nucleic Acid Amplification test (NAAT)performed on the
[employer] platform.
Diagnostic Testing:
Physical Exam
-
HEENT: Normocephalic, Moist Mucous Membranes and Other (EOMI)
Cardiovascular: S1/S2 and Regular Rhythm
Respiratory: Rales and Non-Labored Respirations
GI: Soft, Distended (tympanic) and Non Tender
Neurology: Awake, Alert, Oriented and Other (lethargic, depressed appearing)
Skin: Warm and Dry
General: Comfortable and Other (HAD)
Assessment
-
Patient is a 58-year-old male with PMH significant for ESRD on HD MWF and known noncompliance, CAD, HFpEF, GERD, HTN, Type 2 DM, portal gastropathy, esophageal varices, recurrent ascites requiring paracentesis, presenting to ED for evaluation of
dyspnea, nausea, and fatigue. He missed his last two sessions of HD prior to admission. In the ED he is found to have HR in the 30s, wide QRS on EKG, and K of 7.3. He received a dose of calcium, insulin, dextrose, bicarb, and Lasix emergently.
Nephrology was consulted from the ED for emergency HD. Admitted to ICU for emergent HD, not on pressors.
Symptomatic bradycardia
Hyperkalemia
Shortness of breath, fatigue
Noncompliance with dialysis
Hyponatremia
Acute on chronic heart failure exacerbation, proBNP greater than 27,000
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
A-fib on Coumadin
ESRD on HD
History of COVID-19
Former tobacco smoker
GERD
DM type II
Depression
Anemia,
History of transaminitis
Hypertension
Spinal stenosis
Peripheral neuropathy
Decompensated liver cirrhosis with history of recurrent ascites requiring paracentesis (last para on 01/20/2024)
Borderline splenomegaly
Chronic HFpEF with mild PH and Hx of bilateral pleural effusions (per TTE from 03/2023)
Plan
No current signs of metabolic encephalopathy or MS changes/following commands
He has been declining his home lactulose, can check NH4 level if he becomes more lethargic
Psychiatric history noted above including depression, consider psych eval if he is refusing care
Has chronic pain, on chronic opiates
Pain/sedation: Resume fent patch, can add ahsan tylenol, pain regiment for mod-severe pain with breakthrough
RASS goals: 0, hold meds for sedation
Hemodynamically stable, not requiring pressors.
Cardiac history reviewed AFib on coumadin
Prior ECHO reviewed indicating HFpEF, can repeat study today
Resume home meds as tolerated
Bradycardia noted, resolved--monitor on telemetry
Oxygen needs: stable on RA
Prior history of lung disease: none
Supplemental O2 as indicated to maintain sats > 89%
CXR/CT reviewed indicating volume overload/edema
Diuresis per HD
Liver failure/chronic, for para today, labs to sent
He notes he is being followed by OP Liver team and remains on transplant list
Diet advancement
[employer]iation [employer] recommendations
Aspiration precautions, HOB > 30 degrees
Speech therapy eval can be considered if at elevated risk
GI prophylaxis if indicated
ESRD history, resumed on HD--has noted h/o noncompliance
Renal following
Replete electrolytes as needed
K improving
No signs/symptoms suspicious for infectious etiology at this time
Observe off antibiotics for now
Follow fever trend, WBC count
CBC stable, no signs of bleeding or coagulopathy.
DVT prophylaxis as assessed based on risk, including mechanical SCDs
Can transfuse if indicated for Hb <7, plt < 10
INR WNL
No prior h/o thyroid disease
H/o diabetes, can continue on home meds, SS for coverage
He was recently hospitalized at for UGIB/coffee ground emesis/seen by GI and discharged 04/08/24. He has been admitted monthly to with a total of 8 admission in 2023.
Of note he was evaluated by palliative care on 03/24/24 and declined comfort care though he was refused treatment then. Recommended treatment for depression.
GOC should be discussed
Transfer to floors otherwise per team, we will sign off upon transfer.
Diagnostic Data
Chest X-Ray: 04/27/24- Radiographic findings highly suggestive of pulmonary edema pattern with small bilateral pleural effusions.
CT Scan: [facility] 02/10/24- 1. There is increased bibasilar consolidations with new surrounding groundglass opacities and small nodular consolidations in the posterior upper lobes suspicious for multifocal pneumonia.
2. There is apparent wall thickening of the cecum and ascending colon favored to represent colitis
3. Cholelithiasis.
4. Small volume ascites.
5. Extensive atherosclerotic indications.
Echo: 04/03/23- Normal biventricular size and systolic function without regional wall motion abnormality. No significant valvular disease. Mild pulmonary hypertension. Trivial pericardial effusion.
Right and left pleural effusion present. Compared to previous echo , there is now pulmonary hypertension.
PFT's:
Reports and relevant images were personally reviewed.
Critical Care time 65 mins -- The patient is admitted for acute critical illness for the treatment of vital organ failure and/or prevention of further life-threatening conditions. Total care includes time spent in review of history, physical exam,
medications, hemodynamic/ventilator parameters, laboratory data, imaging and discussion with house staff, pharmacy, respiratory therapy, hvac manager, and nursing. Additional time spent on review of resident plan of care.
[2024-04-28] MEDS: NOVOLOG FLEXPEN-MODERATE RESISTANCE SC ×3 (08:04→17:20)
[2024-04-28 08:14] LABS: Glucose - Point of Care 82 mg/dl (70-99)
[2024-04-28] MEDS: APRESOLINE PO (08:32)
[2024-04-28] MEDS: PROCARDIA XL (EXTENDED RELEASE) PO (08:35)
[2024-04-28] MEDS: RENVELA 1600 MG PO ×3 (08:44→17:23)
[2024-04-28] MEDS: PROTONIX 40 MG PO ×2 (08:44→21:33)
[2024-04-28] MEDS: B COMPLEX w/VITAMIN C 1 CAPLET PO (08:44)
[2024-04-28] MEDS: ZOLOFT 50 MG PO (08:44)
[2024-04-28] MEDS: DUPHALAC/CHRONULAC PO (08:45)
[2024-04-28] MEDS: CATAPRES-TTS-3 0.3 MG TRANSDERM (08:45)
[2024-04-28] MEDS: TRUSOPT 2% OPHTHALMIC SOLUTION 1 DROP RIGHT EYE ×2 (08:46→21:34)
[2024-04-28] MEDS: CYCLOGYL 2% EYE DROPS 1 DROP RIGHT EYE ×3 (08:47→21:33)
[2024-04-28] MEDS: TIMOPTIC 0.5% OPHTHALMIC SOLUTION 1 DROP RIGHT EYE ×2 (08:47→21:34)
--- NOTE | 2024-04-28 09:00 | PTCARENOTE ---
Rec'd pt at 0800 awake resting in bed. Alert and oriented. C/O intense chronic L lower back pain. Asking for IV Dilaudid- states that works the best for him -better than the PO Dilaudid that he gets at [facility]. ICU Resident and Dr. Max in
and made aware. Speech is clear. Admits to a dull headache. No c/o dizziness. Skin is pale wm and dry. Sacral foam intact. Sury area is reddened-MASD- Desenex applied. Respirs are shallow but non-labored on RA with sats of 96%. BS are decreased but
clear. Monitor SR with BB config and sl long QT-501. + pulses. DP pulses with the doppler. +1 LE edema. SCD's intact. VS as documented. L lower arm AV fistula with + Bruit and Thrill. Abd is large/distended/firm but non-tender. hypoactive bs.
Overall good appetite for breakfast with no c/o nausea. No urine currently. Capped ints inact R arm. Sites wnl. Repositioned. Mouth care given. Plan of care reviewed with pt and call nieto in reach. AM meds given. Refused Lactulose.
--- NOTE | 2024-04-28 09:21 | W.PN.HOSP.TC ---
Today's Communication/Plan
-
IRAD consulted for paracentesis
Blood consent obtained, transfusion tomorrow with dialysis
Monitor for any overt bleeding
Continuing warfarin
Carafate at noon
Assessment / Plan
Assessment / Plan
1. ESRD on hemodialysis -noncompliance
Hyperkalemia
-Patient came in for not feeling well after skipping dialysis around
-Found to be hyperkalemic/acidotic with potassium 7.3
-Temporizing measures provided in ER with insulin/glucose/calcium/bicarbonate
-Patient will round of dialysis yesterday
-Nephrology following and help appreciated
2. Acute on chronic anemia
Grade 1 esophageal varices/portal gastropathy
-Patient have chronic anemia of likely of renal disease and GI blood loss
-Hemoglobin was 11 in April 12, has dropped down
-EGD from March 13 showing portal gastropathy/esophageal varices
-Discussed with GI of consult and recommended close monitoring with consultation if patient have any signs of overt bleeding. Recommended Carafate once daily as well
-Discussed with nephro and will transfuse 1 unit of blood tomorrow with dialysis
3, history of recurrent ascites
-bedside ultrasound showing large pockets of fluid collection
-IRAD consulted for paracentesis
4. Parox afib
-Patient is on warfarin at increased risk of recurrent GI bleed, not sure if would be a candidate for Watchman device
-INR 2.67 currently, monitor.
-Rapid reversal will be required if patient have any life theratning bleeding
History of bradycardia
Chronic diastolic congestive heart failure
History of bilateral pleural effusion requiring thoracentesis
History of pericardial effusion requiring pericardiocentesis
Coronary artery disease
Type 2 diabetes mellitus
Hyperlipidemia
Spinal stenosis
Anxiety/depression
DVT PPX - warfafrin
Full code
c Total critical care time 38 mins . Total critical care time documented does not include time spent on separately billed procedures or the services of residents, students, nurses or physician assistants. I personally saw and examined the patient. I
have reviewed all diagnostic interpretations and treatment plans as written. I was present for the dominguez portions of any procedures performed and the inclusive time noted in any critical care statement. Critical care time includes patient management
by me, time spent at the patients bedside, time to review lab and imaging results, discussing patient care, documentation in the medical record, and time spent with the family or caregiver.
Anticipated Discharge: > 48 hours
Subjective/Interval History
-
Date of Service: April 28, 2024
Resting comfortably in bed
Complains of some abdominal discomfort
No nausea vomiting
Afebrile in night
Objective Data
-
Labs:
Laboratory Results
04/27/24 04/28/24
22:03 04:36
WBC 6.7
Hgb 7.1 L
Hct 22.7 L
Plt Count 205
PT 28.8 H
INR 2.67
APTT 74.5 H
Sodium 132 L 132 L
Potassium 4.4 D 5.2 H
Chloride 96 L 97 L
Carbon Dioxide 29 28
BUN 32 H 38 H
Creatinine 4.4 H* 4.9 H*
Glucose 102 H 83
Calcium 7.8 L 7.7 L
Total Bilirubin 0.6
AST 19
ALT < 10
Alkaline Phosphatase 91
Vital Signs:
Vital Signs
Temp Pulse Resp BP Pulse Ox
98.7 F 87 18 108/57 93
04/28/24 03:56 04/28/24 08:45 04/28/24 06:00 04/28/24 08:45 04/28/24 06:00
I&O
04/27/24 04/28/24 04/29/24
06:59 06:59 06:59
Intake Total 480 / 480
Balance 480 / 480
Review of Systems
-
Respiratory: Reports No Symptoms
Cardiac: Reports No Symptoms
Abdomen/GI: Reports No Symptoms
Physical Exam
-
General: No Apparent Distress and Comfortable
HEENT: Anicteric
Respiratory: Clear to Auscultation and Non Labored Respirations
Cardiac: Regular Rhythm and S1/S2; Negative Murmur, Rub or Gallop
GI: Soft, Tender (minimal diffuse) and Distended
Musculoskeletal: No Edema
Skin: Warm, Dry and Normal Turgor; Negative Rash
Neuro: AO x 3 and Nonfocal/Grossly Intact
Psych: Calm
--- NOTE | 2024-04-28 11:35 | CON.INTV ---
Consultation
Consultation Request
Date/Time Consultation Requested: 04/27/24
Date/Time Consultation Performed: 04/28/24
Requesting Provider: Hospitalist
Performing Provider: Dr. Mitchell/Dr. Haynes
Reason for Consultation: ICU
Medical History
-
Chief Complaint: dyspnea, nausea, fatigue
History of Present Illness:
58yo M with PMH ESRD on HD MWF; decompensated cirrhosis (unknown etiology, MASH vs ETOH) with recurrent ascites, esophageal varices, portal gastropathy, h/o SBP 10/2023, h/o UGI bleed; CAD, HFpEF, HTN, paroxysmal afib on warfarin; who presented to
ED from [facility] on 04/27/24 for dyspnea, nausea, fatigue in the context of missing 2 HD sessions this week. In the ED, he was found to have bradycardia, wide QRS. Labs on admission notable for K 7.3, Cr 9.1, Hgb 7.9, LFTs/ammonia wnl. He was
stabilized with Ca, insulin/dextrose, bicarb, and underwent urgent HD on admission. Admitted to ICU for severe hyperkalemia and coding advisor consulted for management recommendations.
Patient seen and evaluated this AM. Reports chronic low back pain from spinal stenosis, which is not relieved by tylenol and fentanyl patch. Also reports mild headache, lightheadedness, occasional shortness of breath. Denies chest pain, cough,
nausea, vomiting, diarrhea, constipation, abdominal pain. Tolerating PO diet. Reports chronic difficulty with ambulation and balance from neuropathy. Minimal urine production, denies issues spontaneously voiding. BP 90s-130s/40s/70s, HR 40s-90s, QTc
this AM 504, afebrile, no urine output.
Past Medical History
Past Medical History: Arrhythmias (paroxysmal atrial fibrillation on warfarin), CAD, CHF (HFpEF), HTN, Renal Failure (ESRD on HD MWF), Psychiatric (depression) and Other (decompensated cirrhosis (ascites, esoph varices, h/o SBP, h/o UGI bleed,
portal gastropathy), DM2, peripheral neuropathy, spinal stenosis, chronic pain)
Social History
Tobacco: Former Smoker
Alcohol: Other (denies; prior records report former alcohol use, unknown quantity)
Drug: None
Personal: Single
Living: [facility] ([facility])
Allergies / Home Medications
Allergies
Allergy/AdvReac Type Severity Reaction Status Date / Time
No Known Allergies Allergy Verified 04/27/24 13:56
Home Medications
�Medication �Instructions �Recorded �Confirmed �Last Taken �Type
atorvastatin 80 mg tablet 80 mg PO HS High Cholesterol 12/23/22 04/27/24 09/08/23 History
lidocaine-prilocaine 2.5 %-2.5 % 1 applic topical MOWEFR PRN port 12/23/22 04/27/24 Unknown History
topical cream access
vitamin B complex-vitamin C 100 1 tab PO DAILY Supplement 07/29/23 04/27/24 09/08/23 History
mg-folic acid 1 mg tablet
(Dialyvite)
hydralazine 100 mg tablet 100 mg PO TID Blood Pressure 10/29/23 04/27/24 Unknown History
insulin lispro 100 unit/mL 4 unit (0.04 mL) SC AC Diabetes #0 02/17/24 04/27/24 Unknown Rx
subcutaneous pen mL
warfarin 3 mg tablet 3 mg PO DAILY Blood Clot 02/24/24 04/27/24 Unknown Rx
Prevention/Tx #0 tabs
pantoprazole 40 mg tablet,delayed 40 mg PO BID Gastrointestinal Issue 03/17/24 04/27/24 Unknown History
release
carvedilol 6.25 mg tablet 6.25 mg PO BID Blood pressure 1 03/31/24 04/27/24 Unknown Rx
month #60 tabs
lactulose 20 gram/30 mL oral 20 g (30 mL) PO BID Constipation 1 03/31/24 04/27/24 Unknown Rx
solution month #1,800 mL
nifedipine 30 mg tablet,extended 30 mg PO BID Blood pressure 1 03/31/24 04/27/24 Unknown Rx
release month #60 tabs
sertraline 25 mg tablet 50 mg (2 x 25 mg) PO DAILY 03/31/24 04/27/24 Unknown Rx
Depression 1 month #60 tabs
sevelamer carbonate 800 mg tablet 1,600 mg (2 x 800 mg) PO AC Kidney 03/31/24 04/27/24 Unknown Rx
Disease 1 month #180 tabs
acetaminophen 325 mg tablet 650 mg PO Q6HPRN PRN mild 04/06/24 04/27/24 Unknown History
(Tylenol) pain/fever
bisacodyl 10 mg rectal suppository 10 mg OH DAILYPRN PRN if no bm 04/06/24 04/27/24 Unknown History
(Dulcolax (bisacodyl)) aftr mom
clonidine 0.3 mg/24 hr weekly 0.3 mg transdermal TH Blood 04/06/24 04/27/24 Unknown History
transdermal patch pressure
ondansetron HCl 4 mg tablet 4 mg PO Q6HPRN PRN nausea 04/06/24 04/27/24 Unknown History
polyethylene glycol 3350 17 gram 17 g PO DAILYPRN PRN Constipation 04/06/24 04/27/24 Unknown History
oral powder packet
fentanyl 12 mcg/hr transdermal 1 patch transdermal Q72H Chronic 04/08/24 04/27/24 Unknown Rx
patch pain 1 week #5 ea
loperamide 2 mg capsule 2 mg PO Q6HPRN PRN loose stool 04/11/24 04/27/24 Unknown History
acetaminophen 500 mg tablet 500 mg PO Q6HPRN PRN mild pain 04/27/24 04/27/24 Unknown History
(Tylenol Extra Strength)
cyclopentolate 2 % eye drops 1 drp RIGHT EYE TID 04/27/24 04/27/24 Unknown History
difluprednate 0.05 % eye drops 1 drp RIGHT EYE Q2H 04/27/24 04/27/24 Unknown History
(Durezol)
dorzolamide-timolol (PF) 2 %-0.5 % 1 drp RIGHT EYE BID 04/27/24 04/27/24 Unknown History
eye drops in a dropperette (Cosopt
(PF))
insulin lispro 100 unit/mL 1 sliding scale dose SC AC 04/27/24 04/27/24 Unknown History
subcutaneous pen
Review of Systems
-
History Source: Patient
Constitutional: Fever (negative), Fatigue and Chills (negative)
EENT: No Symptoms
Respiratory: Cough (negative) and Other (occasional shortness of breath)
Cardiac: Chest Pain (negative) and Syncope (negative)
Abdomen/GI: Abdominal Pain (negative), Nausea (negative), Vomiting (negative), Diarrhea (negative), Constipated (negative) and Other (+abdominal distension)
: No Symptoms and Other (minimal urine production)
Musculoskeletal: No Symptoms
Skin: No Symptoms
Neuro: Headache and Weakness
Endocrine: No Symptoms
Hematologic/Lymphatic: Bleeding (negative)
Vitals / Labs / Diagnostic Testing
Vital Signs
Temp Pulse Resp BP Pulse Ox
98.7 F 89 13 120/59 90
04/28/24 03:56 04/28/24 09:00 04/28/24 09:00 04/28/24 09:00 04/28/24 09:00
Lab Data
04/28/24 04:36
04/28/24 04:36
Laboratory Results
04/27/24
22:03
PT 28.8 H
INR 2.67
APTT 74.5 H
Microbiology
04/27/24 14:17 Nasal Swab Influenza Types A & B (FELIBERTO) - Final
Negative for Influenza A & B, NAAT
Negative results must be combined with clinical observations
and patient history.
Nucleic Acid Amplification test (NAAT)performed on the
[employer] platform.
Diagnostic Testing:
Physical Exam
-
HEENT: Normocephalic, Anicteric and Moist Mucous Membranes
Cardiovascular: S1/S2, Regular Rhythm, Murmur (systolic murmur), Peripheral Edema (negative) and Calf Tenderness (negative)
Respiratory: Clear, Wheeze (negative), Rhonchi (negative), Non-Labored Respirations and Other (decreased breath sounds bilaterally)
GI: Soft, Distended, Non Tender and Normal Bowel Sounds
Neurology: Awake, Alert, Oriented and Tremors (negative)
Skin: Warm and Dry
General: Respiratory Distress (negative), Comfortable, Fever (negative) and Sweats (negative)
Assessment
-
58yo M with PMH ESRD on HD MWF; decompensated cirrhosis (unknown etiology, MASH vs ETOH) with recurrent ascites, esophageal varices, portal gastropathy, h/o SBP 10/2023, h/o UGI bleed; CAD, HFpEF, HTN, paroxysmal afib on warfarin; who presented to
ED from [facility] on 04/27/24 for dyspnea, nausea, fatigue in the context of missing 2 HD sessions this week. In the ED, he was found to have bradycardia, wide QRS. Labs on admission notable for K 7.3, Cr 9.1, Hgb 7.9, LFTs/ammonia wnl. He was
stabilized with Ca, insulin/dextrose, bicarb, and underwent urgent HD on admission. Admitted to ICU for severe hyperkalemia and coding advisor consulted for management recommendations.
Impression:
Severe hyperkalemia
Noncompliance with HD
Acute on chronic anemia
Hypoglycemia, resolved
Bradycardia
Conditions prior to admission:
Paroxysmal atrial fibrillation on warfarin
Hypertension
HFpEF- BNP chronically >78118
CAD
Decompensated cirrhosis-- ascites, esophageal varices, portal gastropathy
H/o SBP, H/o UGI bleed
GERD
DM2-- A1C 4.9 in 03/2024
Peripheral neuropathy
Chronic ambulatory dysfunction
Spinal stenosis, chronic back pain, opioid dependence
Depression
Plan:
No signs of metabolic encephalopathy or mental status changes
Will add oxycodone 5mg and 10mg prn for moderate/severe pain, with dilauded 0.25mg for breakthrough
Continue standing tylenol and fentanyl patch
RASS goals: 0
Consider psych and/or palliative care consult
Hemodynamically stable, not on pressors
Cardiac history reviewed-- HFpEF last echo 2022, proBNP chronically >27k
Obtain updated echo
Continue home antihypertensives (clonidine, hydralazine, nifedipine) with hold parameters
Hold home carvedilol given recent bradycardia-- resume when able
Stable on room air
No known history of lung disease; reports former smoker
Chest xray on admission showed pulmonary edema, small bilateral pleural effusion
Repeat chest imaging if new indication arises
Continue home pantoprazole 40mg bid
IR consulted for paracentesis, labs ordered per primary team
Not currently on SBP prophylaxis; will consider antibiotics for treatment if indicated based on ascites fluid labs
Obtain records from GI/liver doctors
Continue diabetic diet with Na and K restriction; dietary consulted, appreciate recs
Resume carvedilol for portal hypertension when HR allows
ESRD-- Cr 4.9, improved from admission
Renal following, appreciate recs
Continue HD per renal
Repeat BMP this afternoon, follow K
Supplement electrolytes prn
Follow daily weights
Afebrile, no leukocytosis
No indication for antibiotics at this time, reassess prn
covid/flu negative
Follow fever trend, WBC count
CBC with acute on chronic anemia (7.9 on admission --> 7.1)
No signs of acute or ongoing bleeding/bruising
Defer transfusion at this time as hgb > 7.0 and relatively stable
Follow hgb daily, consider transfusion with next HD
VTE ppx: SCDs and home warfarin
Monitor INR daily
Continue insulin sliding scale for now, reassess prn
Clinically improving, appropriate for transfer to telemetry, will sign off at that time.
Update 1607: Returned to bedside to discuss plan for blood transfusion tomorrow and option of having palliative and/or psych consult. Agreeble for prbc-- consent signed in chart. He plans to continue HD and goals remain treatment-oriented; he is
adamant about not doing hospice/comfort care. We discussed this is an option in the future, but if continuing HD we reviewed importance of compliance. He is understanding and plans to continue HD as scheduled. In terms of psych, he says his mood is
fine, and he denies feeling down or depressed-- says he will feel sad every now and then but able to 'shake it off' after a few hours.
--- NOTE | 2024-04-28 11:42 | W.PN.NEPH.PH ---
Today's Communication / Plan
-
HD tomorrow
Assessment/Plan
-
Impression:
Hyperkalemia
Bradycardia
h/o GIB /portal gastropathy
Multi drug hypertension
Recurrent ascites
ESRD on hemodialysis at [facility], previously TTS [facility]
Anemia of ESRD
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
Paroxysmal Atrial Fibrillation
Chronic HFpEF
History of bilateral pleural effusions status post thoracentesis
History of pericardial effusion status post pericardiocentesis
Coronary artery disease
Essential hypertension
DM2 with multiple microvascular complications
Hyperlipidemia
Spinal stenosis
Anxiety/depression
L radial AVF
Plan:
A/w bradycardia, missed HD again
Hyperkalemia -life-threatening, s/p HD yesterday k better and so HR too
bradycardia could be from high k however he also on BB (started 2 admits ago admit)+chr clonidine
Maintain phos binders
BP lower end than his normal, meds with holding parameters
Hemoglobin is lower than the last admission,prn transfusion-known history of GI bleeding
wt is up, may need paracentesis
he has been noncompliant with dialysis for several times and required multiple admissions for emergent dialysis which carries a very high mortality risk
This was discussed with the patient, recall patient was seen by the palliative care In previous admission however refused hospice
broached this topic on 04/27 with the patient which he is not interested to discuss and he doesn't want be compliant either
strict renal diet and FR
-
-
Date of Service: April 28, 2024
CC / HPI / ROS
-
Chief Complaint:
ESRD
History of Present Illness:
k better at 5.2, hb low 7.1
BP normal, holding meds
wt is up
Review of Systems:
no cp or sob at rest
no n/v
chr back pain
Labs
-
Labs:
WBC 6.7 10^3/uL (4.8-10.8) 04/28/24 04:36
RBC 2.42 10^6/uL (4.70-6.10) L 04/28/24 04:36
Hgb 7.1 g/dL (13.0-18.0) L 04/28/24 04:36
Hct 22.7 % (39.0-52.0) L 04/28/24 04:36
Plt Count 205 10^3/uL (130-400) 04/28/24 04:36
Sodium 132 mmol/L (135-145) L 04/28/24 04:36
Potassium 5.2 mmol/L (3.5-5.1) H 04/28/24 04:36
Chloride 97 mmol/L (98-107) L 04/28/24 04:36
Carbon Dioxide 28 mmol/L (22-30) 04/28/24 04:36
BUN 38 mg/dl (9-20) H 04/28/24 04:36
Creatinine 4.9 mg/dL (0.7-1.3) H* 04/28/24 04:36
eGFR 12.88 04/28/24 04:36
Glucose 83 mg/dl (70-99) 04/28/24 04:36
Calcium 7.7 mg/dl (8.4-10.2) L 04/28/24 04:36
Dkk-A-Fgvrpeffeyg Pept > 69912 pg/ml 04/27/24 14:17
Albumin 2.3 g/dl (3.5-5.0) L 04/28/24 04:36
Physical Exam
-
Vital Signs:
Vital Signs
Temp Pulse Resp BP Pulse Ox
98.7 F 89 13 120/59 90
04/28/24 03:56 04/28/24 09:00 04/28/24 09:00 04/28/24 09:00 04/28/24 09:00
Cardiovascular:: Regular rate and rhythm
Respiratory:: Bilateral: CTA (anteriorly)
Lung Excursion:: Normal
Abdomen:: Distended, Nontender and Soft
Extremity Edema:: +1: Bilateral: (trace)
Alfred Catheter: No
[2024-04-28] MEDS: FLUSH (NSS) 1 FLUSH IV (11:52)
[2024-04-28] MEDS: DILAUDID 0.25 MG IV (11:52)
--- NOTE | 2024-04-28 12:00 | PTCARENOTE ---
Resting most of the morning. Medicated with Dilaudid 0.25 mg IV for 9/10 L lower back pain and then taken via bed to IR for paracentesis. VS as documented. Assessment otherwise is unchanged.
[2024-04-28] MEDS: TYLENOL 650 MG PO ×2 (13:27→18:04)
[2024-04-28] MEDS: CARAFATE SUSPENSION 1 GM PO (13:28)
--- NOTE | 2024-04-28 13:34 | PTCARENOTE ---
Returned from IR s/p Parcentesis. 7200 mls removed. R liz maloney is D+I. States Dilaudid helped the back pain somewhat- rates it a 7. Awaiting lunch. VS as documented. No other changes.
[2024-04-28 13:36] LABS: Glucose - Point of Care 98 mg/dl (70-99)
--- NOTE | 2024-04-28 15:00 | CM ---
CM following re: discharge planning.
Discussed Rounds, reviewed pt's chart, met with pt.
Pt is a 58 year old male, admitted with primary dx of Symptomatic bradycardia.
Pt is a custodial care resident at [facility], receives HD at [facility] and requires assistance with care. CM spoke to [facility] district administrator and liaison and they confirmed that pt was admitted to [facility] and now
transitioning to a continuous churn buttermaker care, on 15 day Medicaid pending bed hold.
D/C plan: return back to [facility] for a continuous churn buttermaker care.
CM will follow with discharge plan updates as hospitalization progresses
--- NOTE | 2024-04-28 15:10 | PTCARENOTE ---
Good appetite for lunch. No c/o nausea. Turned and repositioned. Skin care given
[2024-04-28 15:28] LABS: Body Fluid Mononuclear 97.1 %; Body Fluid Polymorphonuclear 2.9 %; Body Fluid WBC 103 /CUMM
[2024-04-28 15:32] LABS: Body Fluid LDH < 90 U/L; Body Fluid Protein 2.4 g/dl
[2024-04-28 15:38] LABS: Body Fluid Second Tech SS
--- NOTE | 2024-04-28 17:00 | PTCARENOTE ---
Labs sent per md order. No other changes in assessment.
[2024-04-28 17:03] LABS: Blood Urea Nitrogen 41 mg/dl (9-20); Calcium 7.6 mg/dl (8.4-10.2); Carbon Dioxide 28 mmol/L (22-30); Chloride 97 mmol/L (98-107); Estimated Creatinine Clearance 14 ml/min; Glucose 159 mg/dl (70-99); Magnesium 2.3 mg/dl (1.6-2.3); Phosphorus 3.3 mg/dl (2.5-4.5); Sodium 131 mmol/L (135-145); eGFR 10.97
[2024-04-28] MEDS: APRESOLINE 100 MG PO (17:23)
[2024-04-28] MEDS: ROXICODONE 10 MG PO (17:27)
[2024-04-28 17:30] LABS: Glucose - Point of Care 149 mg/dl (70-99)
--- NOTE | 2024-04-28 17:30 | PTCARENOTE ---
Medicated with Roxicodone 10 mg po for c/o 9/10 L lower back pain. Currently ready to eat dinner, wanted to wait until dinner for his 1600 meds. No changes in assessment
[2024-04-28] MEDS: COUMADIN 3 MG PO (18:04)
--- NOTE | 2024-04-28 21:12 | PTCARENOTE ---
Pt A&O x4. Visitor at bedside. Pt moves all extremities and turns self. Pt endorses neuropathy to BLE. PERRLA. Pt on RA. States ease of breathing currently after paracentesis. Lungs CTABL but diminished. Pt NSR on monitor. (+) pulses x4, weak. (+)
edema to BLE. Abd nontender. No distention noted currently. Pt oliguric. A?V fistula site w/o erythema or drainage. (+) bruit and thrill. Sacrum pink but blanchable. Encouraged turning and positioning. No open areas noted. Puncture site to lower R
abd covered with bandaid which is CDI. No s/s of distress assessed. Will continue to monitor.
[2024-04-28] MEDS: DUPHALAC/CHRONULAC 20 GRAMS PO (21:31)
[2024-04-28] MEDS: PROCARDIA XL (EXTENDED RELEASE) 30 MG PO (21:32)
[2024-04-28] MEDS: ROXICODONE 5 MG PO (21:39)
[2024-04-28 22:12] LABS: Glucose - Point of Care 118 mg/dl (70-99)
[2024-04-29] VITALS (42 sets, daily range): BP systolic 88–180; BP diastolic 48–86
[2024-04-29] MEDS: TYLENOL 650 MG PO ×5 (00:06→23:06)
[2024-04-29] MEDS: APRESOLINE 100 MG PO ×3 (00:06→21:20)
[2024-04-29] MEDS: LIPITOR 80 MG PO ×2 (00:06→21:20)
[2024-04-29] MEDS: DILAUDID 0.25 MG IV (00:48)
[2024-04-29] MEDS: MELATONIN 5 MG PO ×2 (00:48→23:06)
--- NOTE | 2024-04-29 01:24 | PTCARENOTE ---
No cange in pt status. Pt asked for Dilaudid IV. Given as ordered and discussed inability to use IV pain meds upon DC. Also gave melatonin as ordered. No s/s of distress assessed. Will continue to monitor.
[2024-04-29 05:30] LABS: INR 2.18; PT 24.7 Sec (11.4-14.6)
[2024-04-29 05:41] LABS: Hematocrit 24.9 % (39.0-52.0); Hemoglobin 8.1 g/dL (13.0-18.0); Mean Corp Hgb Conc. 32.5 g/dL (33.0-37.0); Mean Corpuscular Hgb 29.5 pg (27.0-31.0); Mean Corpuscular Volume 90.5 fL (80.0-94.0); Mean Platelet Volume 9.4 fL (7.4-10.4); Platelet Count 229 10^3/uL (130-400); Red Blood Cell Count 2.75 10^6/uL (4.70-6.10); Red Cell Dist. Width 14.7 % (11.5-14.5); White Blood Cell Count 6.7 10^3/uL (4.8-10.8)
[2024-04-29 05:50] LABS: Blood Urea Nitrogen 46 mg/dl (9-20); Calcium 7.5 mg/dl (8.4-10.2); Carbon Dioxide 24 mmol/L (22-30); Chloride 98 mmol/L (98-107); Estimated Creatinine Clearance 13 ml/min; Glucose 114 mg/dl (70-99); Potassium 5.1 mmol/L (3.5-5.1); Sodium 133 mmol/L (135-145); eGFR 9.71
--- NOTE | 2024-04-29 06:13 | PTCARENOTE ---
No change in pt status. VSS. No s/s of distress assessed. Will continue to monitor
[2024-04-29] MEDS: NOVOLOG FLEXPEN-MODERATE RESISTANCE 3 UNITS SC (07:45)
[2024-04-29] MEDS: APRESOLINE PO (07:46)
[2024-04-29] MEDS: PROCARDIA XL (EXTENDED RELEASE) PO (07:46)
[2024-04-29] MEDS: PROTONIX 40 MG PO ×2 (07:52→21:20)
[2024-04-29] MEDS: RENVELA 1600 MG PO ×3 (07:52→17:12)
[2024-04-29] MEDS: DUPHALAC/CHRONULAC 20 GRAMS PO (07:52)
[2024-04-29] MEDS: B COMPLEX w/VITAMIN C 1 CAPLET PO (07:52)
[2024-04-29] MEDS: TRUSOPT 2% OPHTHALMIC SOLUTION 1 DROP RIGHT EYE ×2 (07:53→21:21)
[2024-04-29] MEDS: CYCLOGYL 2% EYE DROPS 1 DROP RIGHT EYE ×3 (07:53→21:35)
[2024-04-29] MEDS: ZOLOFT 50 MG PO (07:53)
[2024-04-29] MEDS: TIMOPTIC 0.5% OPHTHALMIC SOLUTION 1 DROP RIGHT EYE ×2 (07:53→21:20)
[2024-04-29 07:55] LABS: Glucose - Point of Care 235 mg/dl (70-99)
[2024-04-29] MEDS: DESENEX/MITRAZOL/ZEASORB 1 APPLIC TOPICAL ×2 (07:59→21:19)
[2024-04-29] MEDS: ROXICODONE 10 MG PO ×3 (08:05→23:07)
--- NOTE | 2024-04-29 08:44 | W.PN.NEPH.HD ---
Assessment
-
Patient seen on dialysis
Systolic blood pressure uncharacteristically low in the 90s
This may be due to underlying progression of liver disease
Patient becoming nonviable clinically outside of hospital due to ongoing noncompliance and exacerbation of underlying liver disease
Progress Note - Hemodialysis
-
Date of Service: April 29, 2024
Duration: 30 minutes and 3 hours
Potassium Bath: 2
Calcium Bath: 2.5
Opti-Dialyzer: 160
Ultrafiltration: Other (Attempt 2 kg as hemodynamically tolerated)
Blood Flow: 400
Dialysate Flow: 600
Heparin: None
EPO: 10,000
[2024-04-29] MEDS: MANNITOL 25% 12.5 GRAMS IV (08:47)
[2024-04-29] MEDS: FLEXBUMIN 25% FOR HEMODIALYSIS 12.5 GRAMS IV ×2 (08:47→09:57)
[2024-04-29] MEDS: RETACRIT 10000 UNITS IV (08:48)
--- NOTE | 2024-04-29 08:50 | PTCARENOTE ---
Rec'd pt at 0730 awake resting in bed asking when breakfast was coming. Ate breakfast when arrived with excellent appetite and no c/o nausea. Alert and oriented. Affect overall is flat but will interact. C/O 12/28 chronic L lower back pain. Medicated
at 0805 with Roxicodone 10 mg po per orders. PEARL. Legs are weak but able to assist with turning. Tends to like to be on his R side. Skin is pale wm and dry. Bandaid intact R lower abd from paracentesis yesterday. Foam dressing intact on his sacrum.
Respirs are unlabored on RA with sats of 96%. BS are are sl decreased at the bases. Monitor SR with BB config. + pulses. DP pulses with the doppler. TR LE edema. VS as documented. AM Apresoline and Procardia held for BP. L lower arm AV fistula with
+ bruit and thrill. ABd is softly distended. Much less than yesterday. Denies nausea. Denies need to void. Capped ints intact R arm-sites wnl. Plan of care reviewed with pt. Call gerson in reach.
--- NOTE | 2024-04-29 09:18 | PN.CDI ---
CDI
- -
CDI:
Physician Documentation Request
Admit Date: 04/27/24 18:25
Dear Doctor Mansoor,
Patient admitted with hyperkalemia.
04/27 Nursing skin assessment, 'Stage 1 sacral pressure injury.'
Physician documentation of the type and location of wounds is required for compliant documentation. Based on the above clinical findings and your assessment, please provide the following in your progress note:
Type (etiology) of ulcer/wound:
- Pressure (decubitus) ulcer
- Other
- Unable to determine
For a pressure ulcer, please also include the stage* of the ulcer:
- Stage 1 - Skin intact, non-blanchable redness
- Stage 2 - Partial thickness loss of dermis, includes intact or open blister
- Stage 3 - Full thickness tissue not including bone, tendon or muscle
- Stage 4 - Full thickness tissue loss, including exposed bone, tendon or muscle
- Unstageable - Full thickness loss in which the base of the ulcer is covered by slough (yellow, aguirre, bell, green or brown) and/or eschar (aguirre, brown or black) in the wound bed.
- Unable to determine
Use of terms such as suspected, likely, concern for, or probable (associated with a specific diagnosis that is being evaluated, monitored, or treated as if it exists) are acceptable and can be coded in the inpatient setting, when documented at the
time of discharge.
Thank you,
Barbie DE LEON,RN,CCDS
CDI Specialist
Available via tiger text
Please use your independent medical judgment in providing your response.
*Source: National Pressure Ulcer Advisory Panel (NPUAP)
[2024-04-29] MEDS: ProAmatine 5 MG PO (09:37)
--- NOTE | 2024-04-29 09:40 | PTCARENOTE ---
On HD. Slept briefly after Roxicodone dose. When awake will c/o the L Lower back pain. Asking for snacks. Midodrine 5 mg po given for HD
[2024-04-29 12:17] LABS: Glucose - Point of Care 95 mg/dl (70-99)
[2024-04-29] MEDS: NOVOLOG FLEXPEN-MODERATE RESISTANCE SC ×2 (12:52→17:15)
--- NOTE | 2024-04-29 13:00 | PTCARENOTE ---
HD completed. As HD was finishing pt on bedpan for a large amt of soft brown stool followed but 2 more episodes of looser brown stool. Sury care given. Complete CHG bath given. Mouth care given. Pt upset about the stool as getting on the bedpan
hurts his back. C/o 9/10 L lower back pain. Assessment otherwise is unchanged. L forearm AV fistula with + Bruit and thrill.
[2024-04-29 13:02] LABS: Glucose - Point of Care 95 mg/dl (70-99)
[2024-04-29] MEDS: CARAFATE SUSPENSION 1 GM PO (13:44)
--- NOTE | 2024-04-29 13:45 | PTCARENOTE ---
Lunch here- medicated with Roxicodone 10 mg po for back pain
--- NOTE | 2024-04-29 15:06 | CM ---
CM following re: discharge planning.
Discussed Rounds, reviewed pt's chart, met with pt.
Pt is a half-way care resident at [facility], receives HD at [facility] and requires assistance with care. CM spoke to [facility] security administrator and liaison and they confirmed that pt was admitted to [facility] and now
transitioning to a half-way care, on 15 day Medicaid pending bed hold.
D/C plan: return back to [facility] for a half-way care.
CM will follow with discharge plan updates as hospitalization progresses
--- NOTE | 2024-04-29 15:08 | W.PN.HOSP.TC ---
Addendum entered and electronically signed by Armando Max MD 04/29/24 15:53:
Add on to diagnosis list
Stage 1 sacral pressure injury
Original Note:
Today's Communication/Plan
-
f/u hbg level
continue warfarin
possible d/c over weekend
Assessment / Plan
Assessment / Plan
1. ESRD on hemodialysis -noncompliance
Hyperkalemia
-Patient came in for not feeling well after skipping dialysis around
-Found to be hyperkalemic/acidotic with potassium 7.3
-Temporizing measures provided in ER with insulin/glucose/calcium/bicarbonate
-Patient getting hemodialysis per nephro guidance
-Nephrology following and help appreciated
2. Acute on chronic anemia
Grade 1 esophageal varices/portal gastropathy
-Patient have chronic anemia of likely of renal disease and GI blood loss
-Hemoglobin was 11 in April 12, has dropped down
-EGD from March 13 showing portal gastropathy/esophageal varices
-Discussed with GI of consult and recommended close monitoring with consultation if patient have any signs of overt bleeding. Recommended Carafate once daily as well
-Hbg 8 today after 1 u PRBC, monitor count.
3, history of recurrent ascites
-bedside ultrasound showing large pockets of fluid collection
-S/p paracentesis of 7.5 L peritoneal fluid. SBP ruled out.
4. Parox afib
-Patient is on warfarin at increased risk of recurrent GI bleed, not sure if would be a candidate for Watchman device
-INR 2.3 currently, monitor on warfarin therapy.
-Rapid reversal will be required if patient have any life threatening bleeding
History of bradycardia
Chronic diastolic congestive heart failure
History of bilateral pleural effusion requiring thoracentesis
History of pericardial effusion requiring pericardiocentesis
Coronary artery disease
Type 2 diabetes mellitus
Hyperlipidemia
Spinal stenosis
Anxiety/depression
DVT PPX - warfafrin
Full code
Anticipated Discharge: 24 - 48 hours
Subjective/Interval History
-
Date of Service: April 29, 2024
no complains overnight
BP soft, denies dizziness
Objective Data
-
Labs:
Laboratory Results
04/29/24
05:08
WBC 6.7
Hgb 8.1 L
Hct 24.9 L
Plt Count 229
PT 24.7 H
INR 2.18
Sodium 133 L
Potassium 5.1
Chloride 98
Carbon Dioxide 24
BUN 46 H
Creatinine 6.2 H*
Glucose 114 H
Calcium 7.5 L
Vital Signs:
Vital Signs
Temp Pulse Resp BP Pulse Ox
97.6 F 83 14 115/60 99
04/29/24 11:49 04/29/24 09:45 04/29/24 09:45 04/29/24 09:45 04/29/24 09:45
I&O
04/28/24 04/29/24 04/30/24
06:59 06:59 06:59
Intake Total 480 / 480 1440 / 1440 400 / 400
Output Total 0 / 0
Balance 480 / 480 1440 / 1440 400 / 400
Review of Systems
-
Respiratory: Reports No Symptoms
Cardiac: Reports No Symptoms
Abdomen/GI: Reports No Symptoms
Physical Exam
-
General: Comfortable and Cachectic
Respiratory: Clear to Auscultation
Cardiac: Regular Rhythm and S1/S2; Negative Murmur or Rub
GI: Soft, Nontender and Nondistended
Musculoskeletal: No Edema
Skin: Warm and Dry
Neuro: Awake, Alert, Oriented and Nonfocal/Grossly Intact
Psych: Calm
[2024-04-29 16:51] LABS: Glucose - Point of Care 144 mg/dl (70-99)
--- NOTE | 2024-04-29 17:00 | PTCARENOTE ---
Slept a lot of the afternoon. Currently awake. BP elevated will give Apresoline as ordered. 160-170's syst. Overalll assessment is unchanged. No further stool. Skin care given Repositioned.
[2024-04-29] MEDS: COUMADIN 3 MG PO (17:13)
[2024-04-29 17:26] LABS: Glucose - Point of Care 145 mg/dl (70-99)
--- NOTE | 2024-04-29 18:10 | PTCARENOTE ---
Eating dinner- last BP 165/76. Updated Dr. Max via tiger text about BP- pt is due at 1999 for Procardia and 2199 for another dose of Apresoline.
--- NOTE | 2024-04-29 18:48 | PTCARENOTE ---
Eating dinner- last BP 165/76. Will update ICU MANAGER SPORTS regarding BP- pt is due at 1999 for Procardia and 2199 for another dose of Apresoline.
[2024-04-29 21:08] LABS: Glucose - Point of Care 186 mg/dl (70-99)
[2024-04-29] MEDS: DUPHALAC/CHRONULAC PO (21:19)
[2024-04-29] MEDS: PROCARDIA XL (EXTENDED RELEASE) 30 MG PO (21:20)
--- NOTE | 2024-04-29 23:24 | PTCARENOTE ---
Assumed care of pt at 1900. Pt is A/O x4, flat affect noted. Reports pain to back which is chronic, medicated with scheduled and PRN pain meds, see EMAR for details. SR 70s-80s on monitor with BBB. SpO2 98% on RA. See nursing shift assessment
flowsheet for full physical assessment details. Call nieto and personal items within reach. Pt is telemetry level of care.
[2024-04-30] VITALS (10 sets, daily range): BP systolic 87–145; BP diastolic 47–73; BMI 20.1
[2024-04-30 04:34] LABS: Mean Corpuscular Hgb 29.1 pg (27.0-31.0); Mean Corpuscular Volume 90.9 fL (80.0-94.0); Mean Platelet Volume 8.8 fL (7.4-10.4); Platelet Count 194 10^3/uL (130-400); Red Blood Cell Count 2.75 10^6/uL (4.70-6.10); Red Cell Dist. Width 14.6 % (11.5-14.5); White Blood Cell Count 5.2 10^3/uL (4.8-10.8)
[2024-04-30 04:46] LABS: INR 2.23; PT 24.8 Sec (11.4-14.6)
[2024-04-30 04:53] LABS: Blood Urea Nitrogen 22 mg/dl (9-20); Calcium 7.2 mg/dl (8.4-10.2); Carbon Dioxide 30 mmol/L (22-30); Chloride 96 mmol/L (98-107); Estimated Creatinine Clearance 23 ml/min; Glucose 115 mg/dl (70-99); Potassium 4.3 mmol/L (3.5-5.1); Sodium 133 mmol/L (135-145); eGFR 20.69
[2024-04-30] MEDS: TYLENOL PO (06:26)
[2024-04-30 07:55] LABS: Glucose - Point of Care 95 mg/dl (70-99)
[2024-04-30] MEDS: NOVOLOG FLEXPEN-MODERATE RESISTANCE SC ×2 (08:11→11:31)
--- NOTE | 2024-04-30 08:36 | W.PN.NEPH.PH ---
Today's Communication / Plan
-
next HD thursday
maintain Fluid restriction
Assessment/Plan
-
Impression:
Hyperkalemia
Bradycardia
h/o GIB /portal gastropathy
Multi drug hypertension
Recurrent ascites
ESRD on hemodialysis at [facility], previously TTS [facility]
Anemia of ESRD
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
Paroxysmal Atrial Fibrillation
Chronic HFpEF
History of bilateral pleural effusions status post thoracentesis
History of pericardial effusion status post pericardiocentesis
Coronary artery disease
Essential hypertension
DM2 with multiple microvascular complications
Hyperlipidemia
Spinal stenosis
Anxiety/depression
L radial AVF
Plan:
A/w bradycardia, missed HD again this past week
s/p HD yesterday
next HD Thursday
pulse improved after HD for hyperkalemia
Maintain phos binders
BP lower end than his normal, meds with holding parameters
Hemoglobin is lower than the last admission,prn transfusion-known history of GI bleeding
wt is up, may need paracentesis
he has been noncompliant with dialysis for several times and required multiple admissions for emergent dialysis which carries a very high mortality risk
This was discussed with the patient, recall patient was seen by the palliative care In previous admission however refused hospice
broached this topic on 04/27 with the patient which he is not interested to discuss and he doesn't want be compliant either
strict renal diet and FR
-
-
Date of Service: April 30, 2024
CC / HPI / ROS
-
Chief Complaint:
ESRD
History of Present Illness:
ESRD MWF HD
hemodynamically stable
wt is up
Review of Systems:
no cp or sob at rest
no n/v
chronic back pain
Labs
-
Labs:
WBC 5.2 10^3/uL (4.8-10.8) 04/30/24 04:09
RBC 2.75 10^6/uL (4.70-6.10) L 04/30/24 04:09
Hgb 8.0 g/dL (13.0-18.0) L 04/30/24 04:09
Hct 25.0 % (39.0-52.0) L 04/30/24 04:09
Plt Count 194 10^3/uL (130-400) 04/30/24 04:09
Sodium 133 mmol/L (135-145) L 04/30/24 04:09
Potassium 4.3 mmol/L (3.5-5.1) 04/30/24 04:09
Chloride 96 mmol/L (98-107) L 04/30/24 04:09
Carbon Dioxide 30 mmol/L (22-30) 04/30/24 04:09
BUN 22 mg/dl (9-20) H 04/30/24 04:09
Creatinine 3.3 mg/dL (0.7-1.3) H 04/30/24 04:09
eGFR 20.69 04/30/24 04:09
Glucose 115 mg/dl (70-99) H 04/30/24 04:09
Calcium 7.2 mg/dl (8.4-10.2) L 04/30/24 04:09
Phosphorus 3.3 mg/dl (2.5-4.5) 04/28/24 16:22
Dok-H-Xctiqwsqzxh Pept > 06073 pg/ml 04/27/24 14:17
Albumin 2.3 g/dl (3.5-5.0) L 04/28/24 04:36
Physical Exam
-
Vital Signs:
Vital Signs
Temp Pulse Resp BP Pulse Ox
97.3 F 73 13 145/71 98
04/30/24 07:00 04/30/24 08:00 04/30/24 08:00 04/30/24 08:00 04/30/24 08:00
Cardiovascular:: Regular rate and rhythm
Respiratory:: Bilateral: CTA (anteriorly)
Lung Excursion:: Normal
Abdomen:: Distended, Nontender and Soft
Extremity Edema:: +1: Bilateral: (trace)
Alfred Catheter: No
[2024-04-30] MEDS: ZOLOFT 50 MG PO (08:49)
[2024-04-30] MEDS: B COMPLEX w/VITAMIN C 1 CAPLET PO (08:49)
[2024-04-30] MEDS: PROTONIX 40 MG PO (08:49)
[2024-04-30] MEDS: RENVELA 1600 MG PO ×3 (08:49→16:07)
[2024-04-30] MEDS: PROCARDIA XL (EXTENDED RELEASE) 30 MG PO (08:49)
[2024-04-30] MEDS: APRESOLINE 100 MG PO ×2 (08:49→16:07)
[2024-04-30] MEDS: TIMOPTIC 0.5% OPHTHALMIC SOLUTION 1 DROP RIGHT EYE (08:50)
[2024-04-30] MEDS: DESENEX/MITRAZOL/ZEASORB 1 APPLIC TOPICAL (08:50)
[2024-04-30] MEDS: CYCLOGYL 2% EYE DROPS 1 DROP RIGHT EYE ×2 (08:50→16:21)
[2024-04-30] MEDS: TRUSOPT 2% OPHTHALMIC SOLUTION 1 DROP RIGHT EYE (08:50)
[2024-04-30] MEDS: ROXICODONE 5 MG PO ×2 (08:53→16:07)
[2024-04-30] MEDS: DUPHALAC/CHRONULAC PO (08:54)
--- NOTE | 2024-04-30 10:03 | W.PN.HOSP.TC ---
Addendum entered and electronically signed by Armando Max MD 05/10/24 18:11:
Mild protein calorie malnutrition
Original Note:
Today's Communication/Plan
-
d/c back to NH
Assessment / Plan
Assessment / Plan
1. ESRD on hemodialysis -noncompliance
Hyperkalemia
-Patient came in for not feeling well after skipping dialysis around
-Found to be hyperkalemic/acidotic with potassium 7.3
-Temporizing measures provided in ER with insulin/glucose/calcium/bicarbonate
-Patient getting hemodialysis per nephro guidance
-Nephrology following and help appreciated
2. Acute on chronic anemia
Grade 1 esophageal varices/portal gastropathy
-Patient have chronic anemia of likely of renal disease and GI blood loss
-Hemoglobin was 11 in April 12, has dropped down
-EGD from March 13 showing portal gastropathy/esophageal varices
-Discussed with GI of consult and recommended close monitoring with consultation if patient have any signs of overt bleeding. Recommended Carafate once daily as well
-Hbg 8 today after 1 u PRBC, monitor count.
3, history of recurrent ascites
-bedside ultrasound showing large pockets of fluid collection
-S/p paracentesis of 7.5 L peritoneal fluid. SBP ruled out.
4. Paroxysmal afib
-Patient is on warfarin at increased risk of recurrent GI bleed, not sure if would be a candidate for Watchman device
-INR 2.3 currently, monitor on warfarin therapy.
-Rapid reversal will be required if patient have any life threatening bleeding
5. Chronic diarrhea
-episodic in nature
-patient questioning of cdiff - no wbc/fever/abd pain - no abx exposure
-continue prn Imodium
History of bradycardia
Chronic diastolic congestive heart failure
History of bilateral pleural effusion requiring thoracentesis
History of pericardial effusion requiring pericardiocentesis
Coronary artery disease
Type 2 diabetes mellitus
Hyperlipidemia
Spinal stenosis
Anxiety/depression
DVT PPX - warfafrin
Full code
More than 30 minutes spent in discharge including
Final examination of the patient
Summarizing hospital stay
Instructions for continuing care to all relevant caregivers
Preparation of discharge records, prescriptions, and referral forms
Total time spent (in minutes): 38 mins
Anticipated Discharge: Today
Subjective/Interval History
-
Date of Service: April 30, 2024
no issues overnight
some diarrhea, chronic in nature
Objective Data
-
Labs:
Laboratory Results
04/30/24
04:09
WBC 5.2
Hgb 8.0 L
Hct 25.0 L
Plt Count 194
PT 24.8 H
INR 2.23
Sodium 133 L
Potassium 4.3
Chloride 96 L
Carbon Dioxide 30
BUN 22 H
Creatinine 3.3 H
Glucose 115 H
Calcium 7.2 L
Vital Signs:
Vital Signs
Temp Pulse Resp BP Pulse Ox
97.3 F 73 13 145/71 98
04/30/24 07:00 04/30/24 08:00 04/30/24 08:00 04/30/24 08:00 04/30/24 08:00
I&O
04/29/24 04/30/24 05/01/24
06:59 06:59 06:59
Intake Total 1440 / 1440 1560 / 1560
Output Total 0 / 0
Balance 1440 / 1440 1560 / 1560
Review of Systems
-
Respiratory: Reports No Symptoms
Cardiac: Reports No Symptoms
Abdomen/GI: Reports Diarrhea
Physical Exam
-
General: Comfortable and Cachectic
Respiratory: Clear to Auscultation
Cardiac: Regular Rhythm and S1/S2; Negative Murmur or Rub
GI: Soft, Nontender and Nondistended
Musculoskeletal: No Edema
Skin: Warm and Dry
Neuro: Awake, Alert, Oriented and Nonfocal/Grossly Intact
Psych: Calm
[2024-04-30 11:40] LABS: Glucose - Point of Care 136 mg/dl (70-99)
[2024-04-30] MEDS: CARAFATE SUSPENSION 1 GM PO (12:05)
[2024-04-30] MEDS: TYLENOL 650 MG PO (12:05)
--- NOTE | 2024-04-30 15:58 | W.DCSUMMARY ---
Discharge Summary
Discharge Data
Date of Admission: 04/27/24
Date of Discharge: 04/30/24
-
Pending Results: No
Hospital Course
Discharging Physician : Dr Armando Max
Disposition : senior living
Primary care physician : Dr. Masood Randall
Principal Discharge diagnosis :
End-stage renal disease on hemodialysis
Hyperkalemia
Acute on chronic anemia
Recurrent ascites
Chronic diarrhea
Chronic Discharge diagnosis :
Grade 1 esophageal varices/portal gastropathy
history of bradycardia
Chronic diastolic congestive heart failure
History of bilateral pleural effusion requiring thoracentesis
History of pericardial effusion requiring pericardiocentesis
Coronary artery disease
Type 2 diabetes mellitus
Hyperlipidemia
History of spinal stenosis
Anxiety/depression
Hospital Course :
Patient is a 58-year-old male with above-mentioned past medical history was brought in from snf after patient having new onset of dyspnea/nausea and vomiting. Patient missed dialysis and started having the symptoms. Patient was found to
be bradycardic with wide QRS complex on EKG. In ER lab evaluation showing patient having significant hyperkalemia/metabolic acidosis. Temporizing measures were provided and nephrology was involved in care and patient requiring emergent
hemodialysis. Patient has history of noncompliance to dialysis in the past and patient was counseled on importance of dialysis. Patient was also noted to having significant abdominal distention and in the past patient have undergone 1 to twice
monthly paracentesis, interventional radiology was involved in care and patient underwent paracentesis of 7.5 L of acetic fluid. Spontaneous bacterial peritonitis was ruled out. Patient was provided albumin postprocedure.
Patient also was noted to be anemic and have history of grade 1 esophageal varices/portal gastropathy. Patient have undergone EGD already twice in the last 6 months. Case was discussed of consult with gastroenterology who recommended monitoring
hemoglobin level posttransfusion and involve GI service if have any overt bleeding. Patient was started on Carafate daily as well.
Post medical stabilization patient was discharged back to snf.
Important imaging findings :
None
Procedure findings :
None
Discharge Plan
-
Patient Disposition: Shelter/SNF
Discharge Diagnosis/Procedures: ESRD On HD, Hyperkalemia, Metabolic acidosis, Ascites
Condition: Fair
Diet: 2 Gram Sodium
Additional Diets: 2g Potassium diet
Activity: As tolerated
Driving Restrictions: No driving
Bathing Restrictions: OK to Shower
Referrals:
Masood Randall I., DO [Family Provider] - in one week
Prescriptions:
New
sucralfate 100 mg/mL Suspension
1 g PO DAILY@1200 Qty: 300 0RF
Continued
atorvastatin 80 mg Tablet
80 mg PO HS
lidocaine-prilocaine 2.5-2.5 % Cream
1 applic TOPICAL MOWEFR PRN (Reason: port access)
Dialyvite 100-1 mg tablet
1 tab PO DAILY
hydralazine 100 mg tablet
100 mg PO TID
insulin lispro 100 unit/mL Insulin Pen
4 unit SC AC Qty: 0 0RF
Rx Instructions:
150-200=2UNITS, 201-250=4UNITS, 251-300=6UNITS
warfarin 3 mg Tablet
3 mg PO DAILY Qty: 0 0RF
pantoprazole 40 mg tablet,delayed release (DR/EC)
40 mg PO BID
nifedipine 30 mg Tablet Extended Release
30 mg PO BID 30 Days Qty: 60 0RF
sevelamer carbonate 800 mg Tablet
1,600 mg PO AC 30 Days Qty: 180 0RF
sertraline 25 mg Tablet
50 mg PO DAILY 30 Days Qty: 60 0RF
carvedilol 6.25 mg Tablet
6.25 mg PO BID 30 Days Qty: 60 0RF
lactulose 20 gram/30 mL Solution
20 g PO BID 30 Days Qty: 1800 0RF
acetaminophen [Tylenol] 325 mg Tablet
650 mg PO Q6HPRN PRN (Reason: mild pain/fever)
ondansetron HCl 4 mg Tablet
4 mg PO Q6HPRN PRN (Reason: nausea)
bisacodyl [Dulcolax (bisacodyl)] 10 mg Suppository
10 mg ID DAILYPRN PRN (Reason: if no bm aftr mom)
polyethylene glycol 3350 17 gram powder in packet
17 g PO DAILYPRN PRN (Reason: Constipation)
clonidine 0.3 mg/24 hr patch weekly
0.3 mg transdermal TH
fentanyl 12 mcg/hr Patch 72 Hour
1 patch transdermal Q72H 7 Days Qty: 5 0RF
loperamide 2 mg Capsule
2 mg PO Q6HPRN PRN (Reason: loose stool)
acetaminophen [Tylenol Extra Strength] 500 mg Tablet
500 mg PO Q6HPRN PRN (Reason: mild pain)
cyclopentolate 2 % Drops
1 drp RIGHT EYE TID
insulin lispro 100 unit/mL Insulin Pen
1 sliding scale dose SC AC
Rx Instructions:
150-200=2units, 201-250=4units, 251-300=6units
difluprednate [Durezol] 0.05 % Drops
1 drp RIGHT EYE Q2H
dorzolamide-timolol (PF) [Cosopt (PF)] 2-0.5 % Dropperette
1 drp RIGHT EYE BID
Discharge Orders:
Discharge Patient (As Directed); Ordered 04/30/24
Ordered By: Armando Max
Discharge Date and Time
Print Language: ALBANIAN
[2024-04-30 16:38] LABS: Glucose - Point of Care 170 mg/dl (70-99)
--- NOTE | 2024-04-30 17:18 | PTCARENOTE ---
Discharged back to [facility] via transport ambulance. report given to Karlee, nursing metal extrusion supervisor. IV and tele monitor d/c'd. VSS. Pt offered no complaints except for chronic back pain.
--- NOTE | 2024-05-02 10:18 | CM ---
TC from [facility]/ liaison for [facility], no referral received.
D/c back to facility 05/01/24.
Referral for Return to halfway placed, d/c instructions and summary sent via careport.
--- NOTE | 2024-05-02 13:32 | PN.CDI ---
CDI
- -
CDI:
Physician Documentation Request
Admit Date: 04/27/24 18:25
Dear Doctor Mansoor,
Patient was admitted with hyperkalemia.
04/28 Nutrition note, 'As per ASPEN/AND pt meets criteria for mild protein calorie malnutrition with NFPE visual findings of temporal and shoulder wasting, and orbital fat loss.
Please provide in your note the diagnosis associated with the above findings and your assessment:
Mild protein calorie malnutrition
Other severity of malnutrition
Other diagnosis
Colbert Criteria ([facility] Hospitalist 2017)
2 or more criteria must be present for either
non severe or severe malnutrition
Note that the criteria differs related to the
presence of an acute or chronic illness
Acute Illness Chronic Illness
Energy Intake Non Severe: <75% for >7 days Non Severe: <75% for >1 month
Severe: <50% for >5 days Severe: <75% for >1 month
Weight Loss Non Severe: 1-2% over 1 week Non Severe: 5% over 1 month
5% over 1 month 7.5% over 3 months
7.5% over 3 months 10% over 6 months
1 year N/A 20% over 1 year
Severe: >2% over 1 week Severe: >5% over 1 month
>5% over 1 month >7.5% over 3 months
>7.5% over 3 months >10% over 6 months
1 year N/A >20% over 1 year
Body Fat Non Severe: Mild Decrease Non Severe: Mild Loss
Severe: Moderate Decrease Severe: Severe Loss
Muscle Mass Non Severe: Mild Decrease Non Severe: Mild Loss
Severe: Moderate Decrease Severe: Severe Loss
Fluid Accumulation Non Severe: Mild Accumulation Non Severe: Mild Accumulation
Severe: Moderate to severe Severe: Moderate to severe
accumulation accumulation
Reduced Rn Documentation Specialist Strength Non Severe: N/A Non Severe: N/A
Severe: Measurably reduced Severe: Measurably reduced
Use of terms such as suspected, likely, concern for, or probable (associated with a specific diagnosis that is being evaluated, monitored, or treated as if it exists) are acceptable and can be coded in the inpatient setting, when documented at the
time of discharge.
Thank you,
Barbie DE LEON,RN,CCDS
CDI Specialist
Available via tiger text
Please use your independent medical judgment in providing your response.
== END 2024-04-30 17:20 | DRG 640 ==
LOC: ICU 18:25
PROVIDERS: Radiology Vascular & Interventional Radiology; Specialist; Student in an Organized Health Care Education/Training Program; ADMITTING PHYSICIAN Internal Medicine; ATTENDING PHYSICIAN Hospitalist; CONSULT PHYSICIAN Internal Medicine; EMERGENCY PHYSICIAN Student in an Organized Health Care Education/Training Program; FAMILY PHYSICIAN Internal Medicine; OTHER PHYSICIAN Internal Medicine
PROC: 5A1D70Z Performance of Urinary Filtration, Intermittent, Less than 6 Hours Per Day (ICD-10-PCS; 2024-04-27)
PROC: 0W9G3ZZ Drainage of Peritoneal Cavity, Percutaneous Approach (ICD-10-PCS; 2024-04-28)
DX: E87.5 Hyperkalemia (principal); N18.6 End stage renal disease; I50.32 Chronic diastolic (congestive) heart failure; R18.8 Other ascites; I85.10 Secondary esophageal varices without bleeding; I13.2 Hypertensive heart and chronic kidney disease with heart failure and with stage 5 chronic kidney disease, or end stage renal disease; E44.1 Mild protein-calorie malnutrition; Z68.1 Body mass index [BMI] 19.9 or less, adult; Z11.52 Encounter for screening for COVID-19; E87.20 Acidosis, unspecified; E11.22 Type 2 diabetes mellitus with diabetic chronic kidney disease; F17.200 Nicotine dependence, unspecified, uncomplicated; Z91.199 Patient's noncompliance with other medical treatment and regimen due to unspecified reason; Z91.158 Patient's noncompliance with renal dialysis for other reason; Z79.01 Long term (current) use of anticoagulants; F41.9 Anxiety disorder, unspecified; F32.A Depression, unspecified; K74.60 Unspecified cirrhosis of liver; Z99.2 Dependence on renal dialysis; E11.649 Type 2 diabetes mellitus with hypoglycemia without coma; E87.1 Hypo-osmolality and hyponatremia; I15.8 Other secondary hypertension; I25.10 Atherosclerotic heart disease of native coronary artery without angina pectoris; I27.20 Pulmonary hypertension, unspecified; I48.0 Paroxysmal atrial fibrillation; K21.9 Gastro-esophageal reflux disease without esophagitis; K31.89 Other diseases of stomach and duodenum; K72.90 Hepatic failure, unspecified without coma; M48.00 Spinal stenosis, site unspecified; Z76.82 Awaiting organ transplant status; Z79.4 Long term (current) use of insulin; Z86.16 Personal history of COVID-19; L89.151 Pressure ulcer of sacral region, stage 1
CPT/HCPCS: 49083; 71045; 80048; 80053; 82140; 82962; 83615; 83735; 83880; 84100; 84157; 84484; 85025; 85027; 85610; 85730; 86850; 86900; 86901; 87015; 87070; 87147; 87205; 87502; 87811; 89051; 93005; 93306; 96374; 96375; 96376; 99291; G0257; P9047; Q5106

== ENCOUNTER → 2024-05-19 12:28 | Outpatient (REF) | payer MEDICARE, SELFPAY ==
[2024-05-19 12:59] VITALS: BP 143/64; BP_SYST 76
[2024-05-19 13:55] VITALS: BP 129/56
[2024-05-19 14:49] LABS: Body Fluid WBC 140 /CUMM
[2024-05-19 14:50] LABS: Body Fluid Mononuclear 97.2 %; Body Fluid Polymorphonuclear 2.8 %
[2024-05-19 14:55] LABS: Body Fluid Second Tech AMA
== END ==
LOC: RADI 12:28
PROVIDERS: FAMILY PHYSICIAN Internal Medicine
DX: R18.8 Other ascites (principal)
CPT/HCPCS: 49083; 89051

== ENCOUNTER 2024-05-31 08:28 | Emergency (ER) | payer MEDICARE, SELFPAY ==
[2024-05-31] VITALS (9 sets, daily range): BP systolic 124–180; BP diastolic 68–87; BMI 21.5
[2024-05-31 08:34] LABS: Glucose - Point of Care 137 mg/dl (70-99)
[2024-05-31] MEDS: NSS 1000 IV (09:00)
[2024-05-31 09:01] LABS: Glucose - Point of Care 108 mg/dl (70-99)
[2024-05-31 09:15] LABS: % Basophils 0.9 % (0-2); % Eosinophils 7.4 % (0-6); % Immature Granulocytes 0.8 % (0-0.5); % Lymphocytes 8.2 % (20.5-51.1); % Monocytes 8.9 % (1.7-9.3); % Neutrophils 73.8 % (42.2-75.2); Absolute Basophils 0.1 10^3/uL (0-0.2); Absolute Eosinophils 0.7 10^3/uL (0-0.7); Absolute Immature Granulocytes 0.1 10^3/uL (0-0.05); Absolute Lymphocytes 0.8 10^3/uL (1.2-3.4); Absolute Monocytes 0.8 10^3/uL (0.1-0.6); Absolute Neutrophils 6.8 10^3/uL (1.4-6.5); Hematocrit 27.1 % (39.0-52.0); Hemoglobin 8.9 g/dL (13.0-18.0); Mean Corp Hgb Conc. 32.8 g/dL (33.0-37.0); Mean Corpuscular Hgb 30.6 pg (27.0-31.0); Mean Corpuscular Volume 93.1 fL (80.0-94.0); Mean Platelet Volume 8.9 fL (7.4-10.4); Nucleated Red Blood Cells % 0 % (-); Platelet Count 320 10^3/uL (130-400); Red Blood Cell Count 2.91 10^6/uL (4.70-6.10); Red Cell Dist. Width 15.2 % (11.5-14.5); White Blood Cell Count 9.2 10^3/uL (4.8-10.8)
--- NOTE | 2024-05-31 09:20 | ED.GENMED ---
History of Present Illness
General
Chief Complaint: Blood Sugar Problem
Source: patient, records, ambulance crew and care home
Exam Limitations: none
Time Seen by Provider: 05/31/24 08:32
Nursing documentation reviewed up to this point in time: agreed with
History of Present Illness
History of Present Illness:
58-year-old male with a past medical history of hypertension, hyperlipidemia, CAD, CHF, atrial fibrillation, ESRD on dialysis, cirrhosis, insulin-dependent diabetes who presents to the emergency room from [facility] after a fall out
of bed�he was found on the ground by staff and noted to be markedly hypoglycemic. Patient cannot recall the episode�according to staff they saw him at change of shift this morning and then about 30 minutes later found him on the ground next to his
bed. He was confused at the time and blood sugar was apparently 30. They gave him a dose of glucagon and called EMS�per EMS on their arrival blood glucose was in the 40s and he was given 250 cc of D10 with improvement. Patient cannot recall the
fall cannot say whether he hit his head. He does complain of some mild neck pain as well as chronic back pain related to spinal stenosis. Denies any acute pain in the back. Denies any pain in his ribs or abdomen. Denies any pain in his
extremities. He does have known history of cirrhosis with recurrent ascites. He is apparently on Coumadin but was supratherapeutic on INR a few days ago per staff and Coumadin was held over the past 24 hours.
Past History
Past History
ED Past Medical History: CAD, GERD, HTN, IDDM, Renal failure (End-stage renal disease), Psychiatric (Depression) and Other (Chronic low back pain, ambulatory dysfunction, anemia, pneumonia, pericardial effusion, pleural effusion, frequent falls,
neuropathy)
ED Past Surgical History: Other (Left arm AV graft)
Social History
Tobacco: Non-smoker
Alcohol: None
Drug: None
Personal:
Living: care home
Employment: Disabled
Family History
Family History: Other (Noncontributory)
Review of Systems
Review of Systems
All Other Systems: ROS reviewed and negative except as documented in HPI and ROS
Constitutional: Reports fatigue; Denies fever
Respiratory: Denies cough or trouble breathing
Cardiac: Denies chest pain
ABD/GI: Denies abdominal pain, nausea or vomiting
: Denies flank pain
Musculoskeletal: Reports neck pain and back pain (Chronic); Denies joint pain
Neurological: Denies dizzy or headache
Phy Exam
Physical Exam
Physical Exam:
General: Awake, alert, oriented x3; no acute distress
Head: Normocephalic, atraumatic
Eyes: Conjunctiva normal, sclera anicteric, pupils equal round and reactive to light bilaterally
Throat: Airway intact, handling secretions
Neck: Trachea midline, cervical collar in place, no cervical spine tenderness
Lungs: Clear to auscultation bilaterally, no wheezing, rales, rhonchi
Heart: Regular rate and rhythm with occasional ectopy, no murmurs, gallops, or rubs
Abd: Soft, mildly distended with positive fluid wave, nontender
Back: No signs of trauma to the back or flank and no tenderness in the thoracic or lumbar spine
Neuro: No gross deficits
Skin: Dry, warm; fentanyl patch noted on right arm
Extremities: Atraumatic, no edema in extremities, equal pulses in all extremities
Scores
Heart Failure Risk
Heart Failure Risk Score: Not Applicable
Heart Score for Chest Pain Patients
STEMI patient?: Not applicable
Withdrawal Assessment of Alcohol
Withdrawal Assessment Completed?: Not applicable
Course
Orders/Labs/Results
Orders:
Orders
05/31/24 08:32
Electrocardiogram (*1) Urgent
Reason for Study: Syncope
CT Cervical Spine W/o Iv Contr Urgent
Comment:
Reason For Exam: unwitnessed fall, found down, confused
CT Head W/o Iv Contrast Urgent
Comment:
Reason For Exam: unwitnessed fall, found down, confused
Bedside Glucose- Treatment ONCE
EKG- Treatment ONCE
05/31/24 08:34
0.9% Sodium Chloride 1000 ml [Nss] 1,000 ml IV BOLUS
05/31/24 08:56
Alcohol Urgent
COVID-19 Antigen Urgent
Source: Nasal Swab
CPK [Creatine Phosphokinase] Urgent
Complete Blood Count/With Diff Urgent
Comprehensive Metabolic Panel Urgent
Drug Screen, Urine [Urine Drug Abuse Screen] Urgent
Date Specimen was Collected: 05/31/24
Time Specimen was Collected: 08:52
Fentanyl, Urine Urgent
Lipase Urgent
Magnesium Urgent
PTT Urgent
Prothrombin Time Urgent
TSH Reflex To Free T4 Urgent
Urinalysis Reflex To Culture Urgent
Date Specimen was Collected: 05/31/24
Time Specimen was Collected: 08:52
Urine Microscopic Reflex Cult Urgent
Influenza A+B Rapid Molecular Urgent
DEMETRIUS Source: Nasal Swab
Specimen Description:
Urine Culture Urgent
DEMETRIUS Source: U
Specimen Description:
Date Specimen was Collected: 05/31/24
Time Specimen was Collected: 08:52
05/31/24 09:00
Bedside Glucose- Treatment Q1H
05/31/24 09:50
CR Chest Portable - 1 View Urgent
Comment:
Reason For Exam: weakness, confused
Reason Study Needs to be Portable: Unable to Transport
05/31/24 11:00
Dextrose 5%/Water 1000 ml [D5w] 1,000 ml IV 100 mls/hr
Abnormal Lab Results
05/31/24 05/31/24 05/31/24
08:32 08:56 09:00
RBC 2.91 L 10^6/uL
(4.70-6.10)
Hgb 8.9 L g/dL
(13.0-18.0)
Hct 27.1 L %
(39.0-52.0)
MCHC 32.8 L g/dL
(33.0-37.0)
RDW 15.2 H %
(11.5-14.5)
Abs Immat Gran (auto) 0.1 H 10^3/uL
(0-0.05)
Absolute Neuts (auto) 6.8 H 10^3/uL
(1.4-6.5)
Absolute Lymphs (auto) 0.8 L 10^3/uL
(1.2-3.4)
Absolute Monos (auto) 0.8 H 10^3/uL
(0.1-0.6)
Immature Gran % 0.8 H %
(0-0.5)
Lymphocytes % 8.2 L %
(20.5-51.1)
Eosinophils % 7.4 H %
(0-6)
PT 20.0 H Sec
(11.4-14.6)
APTT 57.5 H Sec
(23.4-35.0)
Sodium 131 L mmol/L
(135-145)
BUN 27 H mg/dl
(9-20)
Creatinine 3.0 H mg/dL
(0.7-1.3)
Glucose 139 H mg/dl
(70-99)
Calcium 8.2 L mg/dl
(8.4-10.2)
Alkaline Phosphatase 129 H U/L
(38-126)
Creatine Kinase 41 L U/L
(55-170)
Total Protein 5.7 L g/dl
(6.3-8.2)
Albumin 2.4 L g/dl
(3.5-5.0)
Lipase 20 L U/L
(23-300)
Urine Bilirubin 1+ A
(Negative)
Leukocyte Esterase Rfl 1+ A
(Negative)
Urine Bacteria (Reflex) Moderate A
(Negative)
Urine Albumin (Reflex) 3+ A
(Neg - Trace)
Ur Oxycodone Screen Positive H
(Negative)
Urine Fentanyl Screen Positive H
(Negative)
POC Glucose 137 H mg/dl 108 H mg/dl
(70-99) (70-99)
05/31/24 05/31/24
10:11 14:35
RBC
Hgb
Hct
MCHC
RDW
Abs Immat Gran (auto)
Absolute Neuts (auto)
Absolute Lymphs (auto)
Absolute Monos (auto)
Immature Gran %
Lymphocytes %
Eosinophils %
PT
APTT
Sodium
BUN
Creatinine
Glucose
Calcium
Alkaline Phosphatase
Creatine Kinase
Total Protein
Albumin
Lipase
Urine Bilirubin
Leukocyte Esterase Rfl
Urine Bacteria (Reflex)
Urine Albumin (Reflex)
Ur Oxycodone Screen
Urine Fentanyl Screen
POC Glucose 67 L mg/dl 107 H mg/dl
(7099) (70-99)
05/31/24 08:56
05/31/24 08:56
Vital Signs
Initial and Last Documented VS:
Initial Vital Signs
Temp Pulse Resp BP Pulse Ox
34.8 C L 76 18 124/81 100
05/31/24 08:31 05/31/24 08:31 05/31/24 08:31 05/31/24 08:31 05/31/24 08:31
Last Documented Vital Signs
Temp Pulse Resp BP Pulse Ox
34.8 C L 76 18 147/72 100
05/31/24 08:31 05/31/24 09:00 05/31/24 08:31 05/31/24 09:00 05/31/24 09:00
MDM/Problems Addressed
Differential Diagnosis Includes:
Fall likely triggered by hypoglycemia in the setting of known liver disease; must rule out traumatic injury especially with Coumadin on board
MDM/Problems Addressed:
58-year-old male presents for evaluation after a fall out of bed, noted to have significant hypoglycemia. Complains of some mild neck pain denies any other acute complaints. He is mildly hypothermic but otherwise normal vitals. Physical exam as
above. Will check CT head and cervical spine. Will check labs including a CBC and a CMP, coags. Check urinalysis, chest x-ray, viral swabs for basic infectious workup. Will check an EKG. Monitor on telemetry with regular Accu-Cheks. Reassess
after the above.
Labs reviewed: CBC shows stable anemia, CMP shows stable chronic kidney disease. Thyroid studies normal. Urinalysis no infection. His repeat Accu-Chek showed dropped down to 67�patient is awake and alert. He was given breakfast and juice to
drink and will reassess. Can also start some low-dose dextrose containing fluids. Fortunately CT head and cervical spine are negative for any acute pathology.
Blood glucose improving. Discussed with nursing staff at [facility]: his current insulin regimen is Lispro 4 units ACHS with sliding scale....last received insulin @ 5:36 AM, 4 units of Lispro. Did not eat after receiving insulin this morning
because breakfast had not yet come. He does not receive long-acting insulin and is not on oral antihyperglycemic's so we will continue to monitor his blood glucose here�at this point does not clearly need to be admitted for blood glucose monitoring
unless he drops critically low--can observe for duration of action of short acting insulin. The rest of his blood work looks unremarkable and he is awake and alert, generally well-appearing here.
Blood glucose 89, patient eating well here. D5 stopped. Continue to monitor sugars.
D5 has been discontinued patient eating, blood sugars stable most recent 107. He is not on any long-acting agents and I think he is stable for discharge with stable blood sugars at this point in time. He feels comfortable with this. No other
clear emergent pathology on his evaluation here. I did speak with the staff at [facility] they will watch his sugars for the rest of the day and he will follow-up with the primary doctor.
Chronic conditions affecting care:
Atrial fibrillation, ESRD, cirrhosis, diabetes
*Radiology
Radiology exam reviewed: radiology read reviewed
*Pulse Oximetry
Patient hypoxic: no
*EKG
Interpreted by ED Provider?: Yes
Heart Rate: 78
Rate: normal
Rhythm: sinus and PVC's
[place]: normal axis
QRS Pattern: right bundle branch block
Ischemia: T-wave inversion
*Critical Care Note
Total Time (30-74mins, 75-104mins- exclusive of procedures): Not Applicable
Data Reviewed
Review of Other/Old Records Reveals: Labs and Records
Source: patient, records, ambulance crew and care home
Patient Management
Social determinants of health affecting care: Living situation (Lives in a monitored setting)
Discussion with other providers: [facility] staff (Discussed multiple times with care home staff directly)
Escalation/DeEscalation of care consider admission/obs:
Considered admission but with the patient not on any long-acting agents and stable blood sugars on ED observation he will be discharged back to care home
ED Attending Note
-
Portions of this chart may have been created with voice recognition software.� Occasional wrong word or��sound alike� substitutions may have occurred due to the inherent limitations of voice recognition software.
Discharge Plan
Departure
Patient Disposition: Home (Routine Discharge)
Date of Disposition: 05/31/24
Time of Disposition: 14:49
Patient with high blood pressure during this ER visit?: No
Discharge Problem:
Hypoglycemia, Fall
Instructions: Low Blood Sugar, Adult (DC)
Prescriptions:
No Action
atorvastatin 80 mg Tablet
80 mg PO HS
lidocaine-prilocaine 2.5-2.5 % Cream
1 applic TOPICAL MOWEFR PRN (Reason: port access)
Dialyvite 100-1 mg tablet
1 tab PO DAILY
hydralazine 100 mg tablet
100 mg PO TID
insulin lispro 100 unit/mL Insulin Pen
4 unit SC AC Qty: 0 0RF
Rx Instructions:
150-200=2UNITS, 201-250=4UNITS, 251-300=6UNITS
warfarin 3 mg Tablet
3 mg PO DAILY Qty: 0 0RF
pantoprazole 40 mg tablet,delayed release (DR/EC)
40 mg PO BID
nifedipine 30 mg Tablet Extended Release
30 mg PO BID 30 Days Qty: 60 0RF
sevelamer carbonate 800 mg Tablet
1,600 mg PO AC 30 Days Qty: 180 0RF
carvedilol 6.25 mg Tablet
6.25 mg PO BID 30 Days Qty: 60 0RF
lactulose 20 gram/30 mL Solution
20 g PO BID 30 Days Qty: 1800 0RF
acetaminophen [Tylenol] 325 mg Tablet
650 mg PO Q6HPRN PRN (Reason: mild pain/fever)
ondansetron HCl 4 mg Tablet
4 mg PO Q6HPRN PRN (Reason: nausea)
bisacodyl [Dulcolax (bisacodyl)] 10 mg Suppository
10 mg WI DAILYPRN PRN (Reason: if no bm aftr mom)
polyethylene glycol 3350 17 gram powder in packet
17 g PO DAILYPRN PRN (Reason: Constipation)
clonidine 0.3 mg/24 hr patch weekly
0.3 mg transdermal TH
loperamide 2 mg Capsule
2 mg PO Q6HPRN PRN (Reason: loose stool)
acetaminophen [Tylenol Extra Strength] 500 mg Tablet
500 mg PO Q6HPRN PRN (Reason: mild pain)
cyclopentolate 2 % Drops
1 drp RIGHT EYE TID
insulin lispro 100 unit/mL Insulin Pen
2 - 12 sliding scale dose SC AC
Rx Instructions:
if 150-200= 2 units; 201-250= 4 units; 251-300= 6 units; 301-350= 8 units; 351-400= 10 units; 401-450= 12 units; >450 call MD
difluprednate [Durezol] 0.05 % Drops
1 drp RIGHT EYE Q2H
dorzolamide-timolol (PF) [Cosopt (PF)] 2-0.5 % Dropperette
1 drp RIGHT EYE BID
sucralfate 100 mg/mL Suspension
1 g PO DAILY@1200 Qty: 300 0RF
fentanyl 12 mcg/hr patch 72 hour
1 patch transdermal Q72H Qty: 1 0RF
tramadol 50 mg Tablet
50 mg PO Q6HPRN PRN (Reason: moderate pain)
sertraline 50 mg Tablet
50 mg PO DAILY
oxycodone 5 mg Tablet
5 mg PO Q4HPRN PRN (Reason: severe pain)
Referrals:
Masood Randall I., [Family Provider] - Follow up in 2-3 days
Activity Restrictions/Additional Instructions:
Thank you for visiting the Emergency Department at [facility].
1. Please schedule a follow up appointment as directed. Call first thing tomorrow morning to make an appointment.
2. If indicated, please take your medications as instructed and indicated on discharge paperwork.
3. If any of your symptoms do not improve, or persist, or become more severe within 6-12 hours, please return to the emergency department for further care.
4. Please return to the emergency department if you develop a headache, neck pain/stiffness, fever greater than 100.4F, chest pain, shortness of breath, persistent nausea, vomiting, slurred speech, difficulty walking, numbness/tingling, weakness,
signs of infection or any other symptoms that are worrisome to you.
Please call [phone] if you have any questions.
Interventions
Interventions:
*Risk Screen - Suicide Last Done: 05/31/24 08:31
*General Assessment Last Done: 05/31/24 09:07
*Neglect/Abuse Screening Last Done: 05/31/24 08:31
ED- Fall Risk Assessment Last Done: 05/31/24 09:02
*ED COVID-19 Vaccine History Last Done: 05/31/24 08:31
ED- Neurological Assessment Last Done: 05/31/24 09:02
Discharge Date and Time
Print Language: FRENCH
[2024-05-31 09:24] LABS: INR 1.68
[2024-05-31 09:25] LABS: APTT 57.5 Sec (23.4-35.0)
[2024-05-31 09:36] LABS: COVID-19 Antigen Negative (Negative)
[2024-05-31 09:38] LABS: ALT (SGPT) 14 U/L (0-50); AST (SGOT) 23 U/L (17-59); Albumin 2.4 g/dl (3.5-5.0); Alkaline Phosphatase 129 U/L (38-126); Blood Urea Nitrogen 27 mg/dl (9-20); Calcium 8.2 mg/dl (8.4-10.2); Carbon Dioxide 25 mmol/L (22-30); Chloride 100 mmol/L (98-107); Creatine Phosphokinase 41 U/L (55-170); Estimated Creatinine Clearance 26 ml/min; Glucose 139 mg/dl (70-99); Lipase 20 U/L (23-300); Magnesium 2.3 mg/dl (1.6-2.3); Sodium 131 mmol/L (135-145); Total Bilirubin 0.5 mg/dl (0.2-1.3); Total Protein 5.7 g/dl (6.3-8.2)
[2024-05-31 09:39] LABS: Amphetamines Negative (Negative); Barbiturates Negative (Negative); Benzodiazepines Negative (Negative); Buprenorphine Negative (Negative); Cocaine Negative (Negative); Marijuana Negative (Negative); Methadone Negative (Negative); Methamphetamines Negative (Negative); Opiates Negative (Negative); Phencyclidine Negative (Negative); Tricyclic Antidepressants Negative (Negative)
[2024-05-31 09:40] LABS: Alcohol None Detected
[2024-05-31 09:55] LABS: Urine Albumin 3+ (Neg - Trace); Urine Bilirubin 1+ (Negative); Urine Character Clear (Clear); Urine Color Yellow; Urine Glucose Negative (Negative); Urine Ketone Negative (Negative); Urine Leukocyte 1+ (Negative); Urine Nitrite Negative (Negative); Urine Occult Blood Negative (Negative); Urine Urobilinogen Negative (Neg - 1+)
[2024-05-31 10:08] LABS: TSH Reflex To Free T4 4.38 uIU/ml (0.47-4.68)
[2024-05-31 10:20] LABS: Glucose - Point of Care 67 mg/dl (70-99)
[2024-05-31 10:27] LABS: Urine Amorphous Seen
[2024-05-31 10:29] LABS: Urine Bacteria Moderate (Negative); Urine Red Blood Cell 0-2 /HPF (0-2)
[2024-05-31 11:02] LABS: Glucose - Point of Care 79 mg/dl (70-99)
[2024-05-31] MEDS: D5W 1000 IV (11:24)
[2024-05-31 12:13] LABS: Glucose - Point of Care 79 mg/dl (70-99)
[2024-05-31 13:24] LABS: Glucose - Point of Care 89 mg/dl (70-99)
[2024-05-31 14:37] LABS: Glucose - Point of Care 107 mg/dl (70-99)
[2024-05-31 14:41] LABS: Fentanyl, Urine Positive (Negative)
[2024-05-31 15:34] LABS: Glucose - Point of Care 133 mg/dl (70-99)
[2024-05-31 16:44] LABS: Glucose - Point of Care 134 mg/dl (70-99)
== END 2024-05-31 17:00 | disposition home or self-care (01) ==
LOC: EMR 08:28
PROVIDERS: EMERGENCY PHYSICIAN Emergency Medicine; FAMILY PHYSICIAN Internal Medicine
DX: E11.649 Type 2 diabetes mellitus with hypoglycemia without coma (principal); W06.XXXA Fall from bed, initial encounter; E11.22 Type 2 diabetes mellitus with diabetic chronic kidney disease; I13.2 Hypertensive heart and chronic kidney disease with heart failure and with stage 5 chronic kidney disease, or end stage renal disease; N18.6 End stage renal disease; I25.10 Atherosclerotic heart disease of native coronary artery without angina pectoris; I50.9 Heart failure, unspecified; I48.91 Unspecified atrial fibrillation; E78.5 Hyperlipidemia, unspecified; M48.00 Spinal stenosis, site unspecified; Z11.52 Encounter for screening for COVID-19
CPT/HCPCS: 99285; 96365; 96366 ×2; 96361; 70450; 71045; 72125; 80053; 80306; 80307; 81003; 81015; 82077; 82550; 82962; 83690; 83735; 84443; 85025; 85610; 85730; 87086; 87502; 87811; 93005

== ENCOUNTER → 2024-06-16 11:00 | Outpatient (REF) | payer MEDICARE, SELFPAY ==
[2024-06-16 11:25] VITALS: BP 122/62; BP_SYST 67
[2024-06-16 11:54] LABS: INR 2.92; PT 30.9 Sec (11.4-14.6)
[2024-06-16 12:28] VITALS: BP 119/56
[2024-06-16 13:00] LABS: Body Fluid WBC 196 /CUMM
[2024-06-16 13:01] LABS: Body Fluid Mononuclear 84.7 %; Body Fluid Polymorphonuclear 15.3 %
[2024-06-16 14:06] LABS: Body Fluid Second Tech EM
== END ==
LOC: RADI 11:00
PROVIDERS: FAMILY PHYSICIAN Internal Medicine; OTHER PHYSICIAN Physician Assistant
DX: R18.8 Other ascites (principal)
CPT/HCPCS: 36415; 49083; 85610; 89051

== ENCOUNTER → 2024-07-21 13:33 | Outpatient (REF) | payer MEDICARE, SELFPAY ==
[2024-07-21 14:00] VITALS: BP 122/76; BP_SYST 70
[2024-07-21 15:00] VITALS: BP 114/65
[2024-07-21 15:44] LABS: Body Fluid WBC 234 /CUMM
[2024-07-21 15:56] LABS: Body Fluid Second Tech FB
== END ==
LOC: RADI 13:33
DX: R18.8 Other ascites (principal)
CPT/HCPCS: 49083; 89051

== ENCOUNTER 2024-08-12 17:31 | Inpatient (IN) | payer MEDICARE, SELFPAY ==
[2024-08-12] VITALS (12 sets, daily range): BP systolic 149–177; BP diastolic 72–86; BMI 19.7
--- NOTE | 2024-08-12 11:33 | ED.GENMED ---
History of Present Illness
General
Chief Complaint: Abnormal Lab Value
Source: patient, ambulance crew and [facility]
Exam Limitations: none
Time Seen by Provider: 08/12/24 11:31
Nursing documentation reviewed up to this point in time: agreed with
History of Present Illness
History of Present Illness:
59 yo male from [facility], hx chronic back and shoulder pain, dialysis, depression, afib on Coumadin, IDDM, HLD, Ascites, Flu positive one week ago, hx dialysis did not get it today, sent here for INR of 8.2. Pt denies any new pain. Pt denies
change in color of stool, had large BM earlier today.
Past History
Past History
ED Past Medical History: Arrthythmia (PAF on Coumadin), CAD, GERD, HTN, Hypercholesterolemia, IDDM, Renal failure (End-stage renal disease), Psychiatric (Depression), Other (Chronic low back pain, ambulatory dysfunction, anemia, pneumonia,
pericardial effusion, pleural effusion, frequent falls, neuropathy) and Other (Alcoholic cirrhosis with ascites, esophageal varices with bleeding, CHF)
ED Past Surgical History: Other (Left arm AV graft)
Social History
Tobacco: Non-smoker
Alcohol: None
Drug: None
Personal:
Living: [facility]
Employment: Disabled
Family History
Family History: Other (Noncontributory)
Review of Systems
Review of Systems
Allergies reviewed?: Yes
All Other Systems: ROS reviewed and negative except as documented in HPI and ROS
Constitutional: Denies fever
Respiratory: Denies trouble breathing
Cardiac: Denies chest pain
ABD/GI: Reports other; Denies abdominal pain, nausea, vomiting or diarrhea
: Reports other (dialysis); Denies bleeding
Musculoskeletal: Denies edema
Skin: Reports no symptoms
Neurological: Reports no symptoms
Phy Exam
Physical Exam
Physical Exam:
GENERAL: No acute distress. A&Ox3. Frail
CONSTITUTIONAL: Afebrile.
EYES: clear, conjunctivae normal
ENMT: moist mucus membranes
RESPIRATORY: Regular respirations, nonlabored, lungs clear.
CARDIOVASCULAR: Regular rate and rhythm, no murmurs, no rubs.
GI: Soft, nontender, normal BS
MUSCULOSKELETAL: Moves with ease. Well perfused. No edema
SKIN: Warm, dry, pink
PSYCH: Depressed mood and affect. Well kept, interactive and appropriate
NEUROLOGIC: Awake, alert and oriented. No focal neurological deficits
Course
Orders/Labs/Results
Orders:
Orders
08/12/24 11:42
Complete Blood Count/With Diff Urgent
Comprehensive Metabolic Panel Urgent
Prothrombin Time Urgent
08/12/24 12:18
Urinalysis Reflex To Culture Urgent
08/12/24 15:03
Electrocardiogram (*1) Urgent
Reason for Study: Other
Other Reason for Exam: Hyperkalemia
EKG- Treatment ONCE
08/12/24 15:31
Albuterol Sulfate [Ventolin Nebules] 10 mg INH R NOW STA
Dextrose 50%-Water [Dextrose 50% Syringe] 12.5 grams IV [id number] PRN
Dextrose 50%-Water [Dextrose 50% Syringe] 25 grams IV NOW STA
Insulin Human Regular [Novolin R] 5 units IV NOW STA
Sodium Zirconium Cyclosilicate [Lokelma] 10 gram PO NOW STA
08/12/24 15:32
Bedside Glucose PRE IV Insulin- HyperK+ NOW
08/12/24 15:35
NEPHROLOGY CONSULT Urgent
Consulting Provider: Mauro Mendes V.
Was physician already notified: Yes
Reason for consult: needs dialysis
08/12/24 15:57
Phytonadione [Mephyton] 10 mg PO NOW STA
08/12/24 16:21
Admit/Transfer Patient As Directed
Co-Sign Provider:
Level of Care: Inpatient admission
Assign to:: Telemetry
Physician / Group: Htay
Diagnosis: Hyperkalemia, Supratherapeutic INr
Reason for Telemetry: Arrhythmia
Date to Stop Telemetry: 08/15/24
Time to Stop Telemetry: 11:00
Reason for Hospitalization: Dialysis
Expected length of stay greater than two midnights?: Yes
ELOS- Estimated Length of Stay in days: 3
I certify the patient meets the requirements for IP care: Yes
08/12/24 16:22
PRN Pain Medication Management As Directed
May give lesser potent ordered pain med per pt: Yes
preference::
Protocol:: Medication orders for pain may be administered in a
manner that supports deferring to patient preference
when the pt is:
- Requesting an ordered lesser potent pain medication.
Least to most potent pain medications are defined
as: acetaminophen < NSAID < tramadol < opioids
(morphine, oxycodone, hydromorphone).
- Requesting a lesser dose of the same medication IF
ORDERED.
- Requesting a less intrusive route of administration
if both routes are prescribed by the provider (PO <
IV).
08/12/24 16:30
Code Status As Directed
Resuscitation Status: Full Code
08/12/24 16:34
Hemodialysis treatment As Directed
Treatment date:: 08/13/24
Treatment type: Hemodialysis
Ultrafiltration (kg): 2-3kg
Treatment time (duration): 3 hours 30 minutes
Use dialysis access:: AVF
Dialyzer:: Optiflux 160
Blood flow rate minimum: 350
Blood flow rate maximum: 400
Dialysis flow rate: 600 mL/min
Dialysate temperature: 37 degrees Celsius
Sodium (Na): 137
Potassium (K): 2
Calcium (Ca): 2.5
Bicarbonate (HCO3): 38
08/12/24 20:03
Potassium Urgent
Comment: draw 4 hours after Lokelma administered
08/13/24 07:00
Electrolytes Urgent
Comment: pre-Hemodialysis lab, to be drawn by HD nurse
H&H Urgent
Comment: pre-Hemodialysis lab, to be drawn by HD nurse
08/13/24 08:00
Epoetin Wilber-Epbx [Retacrit] 4,000 units IV HD-ONCE ONE
Mannitol 25% 12.5 grams IV HD-Q1HPRN PRN
Sodium Chloride [Sodium Chloride 4 Meq/ml For Hemodialysis] 10 ml IV HD-Q1HPRN PRN
08/15/24 11:00
DC Protocol for Telemetry ONCE
Abnormal Lab Results
08/12/24
11:42
WBC 14.1 H 10^3/uL
(4.8-10.8)
RBC 3.36 L 10^6/uL
(4.70-6.10)
Hgb 10.2 L g/dL
(13.0-18.0)
Hct 30.7 L %
(39.0-52.0)
RDW 14.8 H %
(11.5-14.5)
Absolute Neuts (auto) 13.1 H 10^3/uL
(1.4-6.5)
Absolute Lymphs (auto) 0.5 L 10^3/uL
(1.2-3.4)
Neutrophils % 92.7 H %
(42.2-75.2)
Lymphocytes % 3.5 L %
(20.5-51.1)
PT 57.7 H Sec
(11.4-14.6)
INR 6.81 H*
Potassium 5.9 H mmol/L
(3.5-5.1)
BUN 61 H mg/dl
(9-20)
Creatinine 7.7 H* mg/dL
(0.7-1.3)
Calcium 8.2 L mg/dl
(8.4-10.2)
Alkaline Phosphatase 135 H U/L
(38-126)
Total Protein 6.0 L g/dl
(6.3-8.2)
Albumin 2.5 L g/dl
(3.5-5.0)
08/12/24 11:42
08/12/24 11:42
Vital Signs
Initial and Last Documented VS:
Initial Vital Signs
Temp Pulse Resp Pulse Ox
99.5 F 94 16 94
08/12/24 11:30 08/12/24 11:30 08/12/24 11:30 08/12/24 11:30
Last Documented Vital Signs
Temp Pulse Resp BP Pulse Ox
98.6 F 75 20 177/86 96
08/12/24 16:17 08/12/24 18:45 08/12/24 18:45 08/12/24 18:00 08/12/24 18:45
Community Affairs Director consulted with Physician
Community Affairs Director consulted with physician?: Yes
Name of Physician Consulted: Danyelle
MDM/Problems Addressed
Differential Diagnosis Includes:
Coumadin toxicity, acute bleeding
MDM/Problems Addressed:
59 yo male from [facility], hx chronic back and shoulder pain, dialysis, depression, afib on Coumadin, IDDM, HLD, Ascites, Flu positive one week ago, hx dialysis did not get it today, sent here for INR of 8.2. Pt denies any new pain. Pt denies
change in color of stool, had large BM earlier today.
Afebrile, NAD
No sign of bleeding
CBC: No clinically significant abnormality, mild leukocytosis may be reactive/stress, patient has no infectious symptoms
CMP: Consistent with his chronic CKD, he needs dialysis, K+ 5.9
INR: 6.81
3:[address] Bassett in to evaluate
Consulted Nephrology Dr. Mendes
EKG: NSR RBBB
Plan: admit: Hyperkalemia, needs dialysis, Coumadin toxicity
Hospitalist notified of admission.
*EKG
EKG Intrepretation Date: 08/12/24
Interpretation: abnormal
Heart Rate: 85
Rate: normal
Rhythm: sinus
[place]: normal axis
Interval: normal interval
QRS Pattern: right bundle branch block
Ischemia: no ischemia
*Critical Care Note
Total Time (30-74mins, 75-104mins- exclusive of procedures): Not Applicable
ED Attending Note
-
Portions of this chart may have been created with voice recognition software.� Occasional wrong word or��sound alike� substitutions may have occurred due to the inherent limitations of voice recognition software.
Discharge Plan
Departure
Patient Disposition: Admit
Date of Disposition: 08/12/24
Time of Disposition: 13:06
Admit to: Telemetry
Presentation/result/management discussed w/ accepting MD/DO: Hospitalist
Condition: Fair
Discharge Problem:
Coumadin toxicity, Acute hyperkalemia, Dialysis patient
Interventions
Interventions:
*Risk Screen - Suicide Last Done: 08/12/24 11:30
*General Assessment Last Done: 08/12/24 14:09
*Neglect/Abuse Screening Last Done: 08/12/24 11:30
*ED- Fall Risk Assessment Last Done: 08/12/24 14:09
*ED COVID-19 Vaccine History Last Done: 08/12/24 14:09
[2024-08-12 11:50] LABS: % Basophils 0.1 % (0-2); % Eosinophils 0.4 % (0-6); % Immature Granulocytes 0.3 % (0-0.5); % Lymphocytes 3.5 % (20.5-51.1); % Neutrophils 92.7 % (42.2-75.2); Absolute Eosinophils 0.1 10^3/uL (0-0.7); Absolute Lymphocytes 0.5 10^3/uL (1.2-3.4); Absolute Monocytes 0.4 10^3/uL (0.1-0.6); Absolute Neutrophils 13.1 10^3/uL (1.4-6.5); Hematocrit 30.7 % (39.0-52.0); Hemoglobin 10.2 g/dL (13.0-18.0); Mean Corp Hgb Conc. 33.2 g/dL (33.0-37.0); Mean Corpuscular Hgb 30.4 pg (27.0-31.0); Mean Corpuscular Volume 91.4 fL (80.0-94.0); Mean Platelet Volume 9.7 fL (7.4-10.4); Nucleated Red Blood Cells % 0 % (-); Platelet Count 219 10^3/uL (130-400); Red Blood Cell Count 3.36 10^6/uL (4.70-6.10); Red Cell Dist. Width 14.8 % (11.5-14.5); White Blood Cell Count 14.1 10^3/uL (4.8-10.8)
[2024-08-12 12:01] LABS: PT 57.7 Sec (11.4-14.6)
[2024-08-12 12:04] LABS: INR 6.81
[2024-08-12 12:30] LABS: ALT (SGPT) 13 U/L (0-50); AST (SGOT) 32 U/L (17-59); Albumin 2.5 g/dl (3.5-5.0); Alkaline Phosphatase 135 U/L (38-126); Blood Urea Nitrogen 61 mg/dl (9-20); Calcium 8.2 mg/dl (8.4-10.2); Carbon Dioxide 22 mmol/L (22-30); Chloride 102 mmol/L (98-107); Glucose 88 mg/dl (70-99); Potassium 5.9 mmol/L (3.5-5.1); Sodium 136 mmol/L (135-145); Total Bilirubin 0.7 mg/dl (0.2-1.3); eGFR 7.44
--- NOTE | 2024-08-12 15:42 | W.CON.NEPH ---
Consultation
-
Date/Time Consultation Requested: 08/12/2024 3:30 PM
Date/Time Consultation Performed: 08/12/2024 3:40 PM
Requesting Provider: Dr. Falcon
Performing Provider: Dr. Mendes
Reason for Consultation: End-stage renal disease
Medical History
-
Chief Complaint: End-stage renal disease/hyperkalemia
History of Present Illness:
59 yo man with hx [facility] at [facility]), non compliance with HDs, CAD, atrial fibrillation on coumadin, IDDM, HTN on Procardia, clonidine,hydralazine, coreg, HLD on statin, Vascepa,
hyperphosphatemia on Renvela, cirrhosis and ascites, chronic pain on fentanyl patch. Patient was sent from his dialysis unit without dialysis as they said they were unable to do his dialysis with an INR of 6.81. Nephrology was consulted for
end-stage renal disease management and associated hyperkalemia with a potassium of 5,9. The patient also was diagnosed with influenza this past Thursday and continues to have fevers and chills and body ache.
Past Medical History
1. ESRD x5 years presumed due to diabetic nephropathy.
2. Severe GI bleeding hx
3. Chronic back pain.
4. Atrial fibrillation on Coumadin.
5. Chronic anemia.
6. History of thoracentesis.
cirrhosis and ascites s/p paracentesis
7. History of pericardiocentesis at outside hospital back in fall of 2022.
8. Elevated HEYDI with subsequent negative testing.
9. Peripheral neuropathy.
10. History of left upper extremity radiocephalic AV fistula.
11. History of hypertension on multi-drug regimen.
12. History of coronary artery disease.
13. History of peripheral eosinophilia.
14. Hyperphosphatemia.
Past Medical History: Other
Past Surgical History: Other (Left arm AVG)
Social History
Tobacco: Former Smoker
Alcohol: Former
Drug: None
Living: Fpc
Family History
Family History: Not Pertinent
Allergies / Home Medications
Allergy/AdvReac Type Severity Reaction Status Date / Time
No Known Allergies Allergy Verified 06/16/24 11:42
�Medication �Instructions �Recorded �Confirmed �Type
atorvastatin 80 mg tablet 80 mg PO HS High Cholesterol 12/23/22 08/12/24 History
lidocaine-prilocaine 2.5 %-2.5 % 1 applic topical MOWEFR PRN port 12/23/22 08/12/24 History
topical cream access
vitamin B complex-vitamin C 100 1 tab PO DAILY Supplement 07/29/23 08/12/24 History
mg-folic acid 1 mg tablet
(Dialyvite)
hydralazine 100 mg tablet 100 mg PO TID Blood Pressure 10/29/23 08/12/24 History
pantoprazole 40 mg tablet,delayed 40 mg PO BID Gastrointestinal Issue 03/17/24 08/12/24 History
release
carvedilol 6.25 mg tablet 6.25 mg PO BID Blood pressure 1 03/31/24 08/12/24 Rx
month #60 tabs
nifedipine 30 mg tablet,extended 30 mg PO BID Blood pressure 1 03/31/24 08/12/24 Rx
release month #60 tabs
acetaminophen 325 mg tablet 650 mg PO Q6HPRN PRN mild 04/06/24 08/12/24 History
(Tylenol) pain/fever
bisacodyl 10 mg rectal suppository 10 mg IN DAILYPRN PRN if no bm 04/06/24 08/12/24 History
(Dulcolax (bisacodyl)) aftr mom
clonidine 0.3 mg/24 hr weekly 0.3 mg transdermal TH Blood 04/06/24 08/12/24 History
transdermal patch pressure
ondansetron HCl 4 mg tablet 4 mg PO Q6HPRN PRN nausea 04/06/24 08/12/24 History
polyethylene glycol 3350 17 gram 17 g PO DAILYPRN PRN Constipation 04/06/24 08/12/24 History
oral powder packet
loperamide 2 mg capsule 2 mg PO Q6HPRN PRN loose stool 04/11/24 08/12/24 History
acetaminophen 500 mg tablet 500 mg PO Q6HPRN PRN mild pain 04/27/24 08/12/24 History
(Tylenol Extra Strength)
cyclopentolate 2 % eye drops 1 drp RIGHT EYE TID Eye Condition 04/27/24 08/12/24 History
difluprednate 0.05 % eye drops 1 drp RIGHT EYE Q2H Eye Condition 04/27/24 08/12/24 History
(Durezol)
dorzolamide-timolol (PF) 2 %-0.5 % 1 drp RIGHT EYE BID Eye Condition 04/27/24 08/12/24 History
eye drops in a dropperette (Cosopt
(PF))
insulin lispro 100 unit/mL 2 - 12 sliding scale dose SC AC 04/27/24 08/12/24 History
subcutaneous pen Diabetes
fentanyl 12 mcg/hr transdermal 1 patch transdermal Q72H #1 ea 04/30/24 08/12/24 Rx
patch
sucralfate 100 mg/mL oral 1 g (10 mL) PO DAILY@1200 #300 mL 04/30/24 08/12/24 Rx
suspension
oxycodone 5 mg tablet 5 mg PO Q4HPRN PRN severe pain 05/31/24 08/12/24 History
sertraline 50 mg tablet 50 mg PO DAILY 05/31/24 08/12/24 History
tramadol 50 mg tablet 50 mg PO Q6HPRN PRN moderate pain 05/31/24 08/12/24 History
hydralazine 10 mg tablet 5 mg PO MOWEFR PRN sbp >180 08/12/24 08/12/24 History
lactulose 10 gram/15 mL oral 30 ml PO BID 08/12/24 08/12/24 History
solution
oseltamivir 75 mg capsule (Tamiflu) 75 mg PO BID 08/12/24 08/12/24 History
sevelamer carbonate 800 mg tablet 1,600 mg PO MEALS Kidney Disease 08/12/24 08/12/24 History
Review of Systems
-
All other systems: Negative unless noted
Constitutional: Fever, Chills and Other (Myalgias)
EENT: Runny Nose
Respiratory: Cough
Cardiac: No Symptoms
Abdomen/GI: Other (Abdominal distention with ascites)
: Other (Scant urine production)
Neurological: No Symptoms
Endocrine: No Symptoms
Hematologic/Lymphatic: No Symptoms
Physical Exam
Vital Signs
Vital Signs
Temp Pulse Resp BP Pulse Ox
99.5 F 87 24 167/85 96
08/12/24 11:30 08/12/24 14:00 08/12/24 13:45 08/12/24 14:39 08/12/24 13:45
Lab Results
WBC 14.1 10^3/uL (4.8-10.8) H 08/12/24 11:42
RBC 3.36 10^6/uL (4.70-6.10) L 08/12/24 11:42
Hgb 10.2 g/dL (13.0-18.0) L 08/12/24 11:42
Hct 30.7 % (39.0-52.0) L 08/12/24 11:42
Plt Count 219 10^3/uL (130-400) 08/12/24 11:42
Sodium 136 mmol/L (135-145) 08/12/24 11:42
Chloride 102 mmol/L (98-107) 08/12/24 11:42
Carbon Dioxide 22 mmol/L (22-30) 08/12/24 11:42
BUN 61 mg/dl (9-20) H 08/12/24 11:42
Creatinine 7.7 mg/dL (0.7-1.3) H* 08/12/24 11:42
eGFR 7.44 08/12/24 11:42
Glucose 88 mg/dl (70-99) 08/12/24 11:42
Calcium 8.2 mg/dl (8.4-10.2) L 08/12/24 11:42
Albumin 2.5 g/dl (3.5-5.0) L 08/12/24 11:42
Physical Exam
General: Awake, Alert, Oriented, AOx3, No Distress and Nontoxic
HEENT: EOMI, Anicteric and Facial Symmetry
Respiratory: Normal Excursion, Nonlabored Respirations and coarse breath sounds
Cardiac: S1/S2 and Regular Rate/Rhythm
Breast: Deferred by me
Abdomen: Soft, Nontender and Other ( distended), ascites
Musculoskeletal: No Cyanosis and Edema ( trace)
Skin: Warm and Dry
Neuro: Nonfocal/Grossly Intact
Psych: Appropriate awake alert and oriented x 3 answers questions appropriate
Vascular Access: Left radial AVF with good thrill and bruit, noted aneurysmal dilatation
Data Reviewed
-
Medical Tests (Nuc Med, Echo etc): Other (EKG report personally reviewed sinus rhythm right bundle branch block no sign wave no hyperacute T waves at 85 bpm)
Labs: Labs Reviewed by me (BMP CBC)
Old Records: Reviewed (Reviewed previous nephrology consult for ESRD April 27 2024)
Assessment/Plan
-
Impression:
Influenza
Hyperkalemia 5.9
Coagulopathy with INR of 6.8 (in setting of advanced liver disease)/Coumadin administration
h/o GIB /portal gastropathy
Multi drug hypertension
Recurrent ascites
ESRD on hemodialysis at [facility], previously TTS [facility]
Anemia of ESRD
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
Paroxysmal Atrial Fibrillation
Chronic HFpEF
History of bilateral pleural effusions status post thoracentesis
History of pericardial effusion status post pericardiocentesis
Coronary artery disease
Essential hypertension
DM2 with multiple microvascular complications
Hyperlipidemia
Spinal stenosis
Anxiety/depression
L radial AVF
Plan:
Can treat potassium medically with lokelma
Hold further Tamiflu until after HD then 30mg after each HD if warranted
We will try to fit patient into dialysis schedule tomorrow
Maintain phos binders with meals for hyperphosphatemia
Maintain current antihypertensives in setting of hypertension
Hemoglobin stable, will provide JAIME on dialysis tomorrow
Fluid restriction of 1500 cc daily low-sodium low potassium diet
Patient will need INR to be decreased and would advise vitamin K administration to get INR under 5 for dialysis access of fistula
[2024-08-12 15:44] LABS: Glucose - Point of Care 71 mg/dl (70-99)
--- NOTE | 2024-08-12 15:51 | W.PN.UPDATE ---
Addendum entered and electronically signed by Quincy Del Valle MD 08/12/24 16:24:
Correction:
IP TLM in place of IMU is acceptable for now
Original Note:
Update Note
Progress Note Update
This note serves as an addendum to the H&P by tractor mechanic helper BRENDON Milka HECTOR
HPI
59M NH Res ESRD, CHD MWF from [facility], non compliance with HDs, CAD, atrial fibrillation on coumadin, IDDM, HTN on Procardia, clonidine,hydralazine, coreg, HLD on statin, Vascepa, hyperphosphatemia on Renvela, cirrhosis and ascites,
chronic pain on fentanyl patch
- sent to ER for for INR of 8.2.
- Pt denies any new pain.
- Pt denies change in color of stool, had large BM earlier today.
- Recently started on TamiFlu 3 days ago for POS Flu
ER TX:
D50 25gm + 12.5 mg
Albuterol Neb
Insulin 5 units
Na Zirconium 10 gm
Vital Signs
Temp Pulse Resp BP Pulse Ox
99.5 F 87 24 167/85 96
08/12/24 11:30 08/12/24 14:00 08/12/24 13:45 08/12/24 14:39 08/12/24 13:45
PE
Gen: Frail and cachectic looking
HEENT: anicteric , prominent neck veins
Neck: supple
Lungs: CTA
Cor: RRR S1 S2
Abdomen: Soft,but full abdomen
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
MS: FROM , Well perfused. No edema
Psych: interactive and appropriate
labs
05/31/24 06/16/24 08/12/24
08:56 11:06 11:42
WBC 14.1 H
Hgb 8.9 L 10.2 L
MCV 91.4
Plt Count 320 219
INR 2.92 6.81 H*
Potassium 5.9 H
BUN 27 H 61 H
Creatinine 3.0 H 7.7 H*
EKG
NORMAL SINUS RHYTHM
RIGHT BUNDLE BRANCH BLOCK
ABNORMAL ECG
WHEN COMPARED WITH ECG OF 31-MAY-2024 08:57,
PREMATURE VENTRICULAR COMPLEXES ARE NO LONGER PRESENT
QRS AXIS SHIFTED RIGHT
04/28/24 TTE
Normal left ventricular systolic function.
Left ventricular ejection fraction is 55-60% .
Mild tricuspid regurgitation.
Pulmonary hypertension with estimated PA pressure 45 to 50 mmHg
Compared to the previous report 04/03/2023 previous estimated PA pressure 42 mmHg. LVH reported.
Previously reported pleural effusion is not seen on the most current study
07/21/24 XA Paracentesis With Us Guide
- Successful ultrasound-guided paracentesis yielding 5200 mL of ascitic fluid.
Last hospitalist admission: Date of Admission: 04/27/24 - Date of Discharge: 04/30/24
Principal Discharge diagnosis :
End-stage renal disease on hemodialysis
Hyperkalemia
Acute on chronic anemia
Recurrent ascites
Chronic diarrhea
ASSESSMENT & PLAN
Recently started on Tamiflu 3 days ago for POS Flu
Suspect Drug interaction between Coumadin and Tamiflu
- Hold Tamiflu for now
Super-Rxtic INR 6s
On Coumadin for Prx AF, currently in NSR
- No evidence of active bleeding - current Hgb 10. 2, was 8.9 0m 05/31/24
- stable VSS
- Hold Coumadin
- To reveres with PO Vit K for HD Via AVF per Renal
- Rapid reversal will be required if patient have any life threatening bleeding
- Trend INR daily
Hyperkalemic K 5.9 s/p -Temporizing measures provided in ER with insulin/D50/ Lokelma
ESRD on hemodialysis ( MWF ) soco AVF
- Facility will not HD unless INR < 5 and sent to ESR for HD
- For HD today - defe to Renal
- To sha with PO Vit K for HD Via AVF per Renal
- Renal consult
Chronic anemia
HX Grade 1 esophageal varices/portal gastropathy
S/P EGD from March 13 showing portal gastropathy/esophageal varices
HX recurrent ascites
-Patient have chronic anemia of likely of renal disease and GI blood loss
- current Hgb 10. 2, was 8.9 on 05/31/24
In NSR
HX Paroxysmal afib
- Hold warfarin
- Rapid reversal will be required if patient have any life threatening bleeding
Known HX
History of bradycardia
Chronic diastolic congestive heart failure volume is managed by HD
History of bilateral pleural effusion requiring thoracentesis
History of pericardial effusion requiring pericardiocentesis
Coronary artery disease
Type 2 diabetes mellitus
Hyperlipidemia
Spinal stenosis
Anxiety/depression
DVT PPX - INR 6s
Full code
IMU
--- NOTE | 2024-08-12 16:32 | HPS.HSE ---
Family Physician
-
Family Physician: Masood Randall
Chief Complaint
-
Supratherapeutic INR
History of Present Illness
Patient is a 59 y/o male past medical history of ASCVD, AFib, CHF and ESRD on HD who presents with supratherapeutic INR. Patient positive for influenza earlier this week and was started on Tamiflu 75mg BID on August 09. Patient had his INR checked
and it was significantly elevated at 8.2. He was sent to emergency department as the facility is unable to dialyze him via his fistula due to the elevated INR. Patient denies any bleeding or bruising.
Medical History
Past Medical History
Past Medical History: Reports Other
Additional Past Medical History:
ASCVD
HFpEF
Paroxysmal Atrial Fibrillation
Essential Hypertension
ESRD on HD
Anemia of CKD
Diabetes Mellitus, Type II
Peripheral neuropathy
Spinal stenosis
Cirrhosis / Ascites
GERD
Anxiety / Depression
Past Surgical History: Reports Other
Additional Past Surgical History:
LUE AVF
Back Surgery
Serial Paracenteses
Social History
Tobacco: Former Smoker
Alcohol: None
Drug: None
Family History
Family History: Not pertinent
Allergies / Home Medications
Allergies reflects when Allergies were last updated in [employer].
Home Medications with original date entered in [employer]
Allergy/Medication List:
Allergies
Allergy/AdvReac Type Severity Reaction Status Date / Time
No Known Allergies Allergy Verified 06/16/24 11:42
Home Medications
atorvastatin 80 mg tablet 80 mg PO HS High Cholesterol 12/23/22
lidocaine-prilocaine 2.5 %-2.5 % topical cream 1 applic topical MOWEFR PRN port access 12/23/22
vitamin B complex-vitamin C 100 mg-folic acid 1 mg tablet (Dialyvite) 1 tab PO DAILY Supplement 07/29/23
hydralazine 100 mg tablet 100 mg PO TID Blood Pressure 10/29/23
pantoprazole 40 mg tablet,delayed release 40 mg PO BID Gastrointestinal Issue 03/17/24
carvedilol 6.25 mg tablet 6.25 mg PO BID Blood pressure 1 month #60 tabs 03/31/24
nifedipine 30 mg tablet,extended release 30 mg PO BID Blood pressure 1 month #60 tabs 03/31/24
acetaminophen 325 mg tablet (Tylenol) 650 mg PO Q6HPRN PRN mild pain/fever 04/06/24
bisacodyl 10 mg rectal suppository (Dulcolax (bisacodyl)) 10 mg NV DAILYPRN PRN if no bm aftr mom 04/06/24
clonidine 0.3 mg/24 hr weekly transdermal patch 0.3 mg transdermal TH Blood pressure 04/06/24
ondansetron HCl 4 mg tablet 4 mg PO Q6HPRN PRN nausea 04/06/24
polyethylene glycol 3350 17 gram oral powder packet 17 g PO DAILYPRN PRN Constipation 04/06/24
loperamide 2 mg capsule 2 mg PO Q6HPRN PRN loose stool 04/11/24
acetaminophen 500 mg tablet (Tylenol Extra Strength) 500 mg PO Q6HPRN PRN mild pain 04/27/24
cyclopentolate 2 % eye drops 1 drp RIGHT EYE TID Eye Condition 04/27/24
difluprednate 0.05 % eye drops (Durezol) 1 drp RIGHT EYE Q2H Eye Condition 04/27/24
dorzolamide-timolol (PF) 2 %-0.5 % eye drops in a dropperette (Cosopt (PF)) 1 drp RIGHT EYE BID Eye Condition 04/27/24
insulin lispro 100 unit/mL subcutaneous pen 2 - 12 sliding scale dose SC AC Diabetes 04/27/24
fentanyl 12 mcg/hr transdermal patch 1 patch transdermal Q72H #1 ea 04/30/24
sucralfate 100 mg/mL oral suspension 1 g (10 mL) PO DAILY@1200 #300 mL 04/30/24
oxycodone 5 mg tablet 5 mg PO Q4HPRN PRN severe pain 05/31/24
sertraline 50 mg tablet 50 mg PO DAILY 05/31/24
tramadol 50 mg tablet 50 mg PO Q6HPRN PRN moderate pain 05/31/24
hydralazine 10 mg tablet 5 mg PO MOWEFR PRN sbp >180 08/12/24
lactulose 10 gram/15 mL oral solution 30 ml PO BID 08/12/24
oseltamivir 75 mg capsule (Tamiflu) 75 mg PO BID 08/12/24
sevelamer carbonate 800 mg tablet 1,600 mg PO MEALS Kidney Disease 08/12/24
Review of Systems
-
A 12 point ROS was completed and negative except as noted: Yes
Constitutional: Denies Fever or Chills
Respiratory: Denies Cough or Trouble Breathing
Cardiac: Denies Chest Pain or Palpitations
Physical Exam
Vital Signs
Vital Signs
Temp Pulse Resp BP Pulse Ox
98.6 F 87 24 167/85 96
08/12/24 16:17 08/12/24 14:00 08/12/24 13:45 08/12/24 14:39 08/12/24 13:45
Physical Exam
General: Comfortable and Conversant
HEENT: Anicteric and Moist mucous membranes
Respiratory: Clear and Non Labored Respirations
Cardiac: S1/S2 and Regular Rhythm
GI: Soft and Distended (Slightly with slight fluid wave)
Rectal: Deferred by Provider
Musculoskeletal: No Clubbing, No Cyanosis and Other (LUE AV Fistula)
Skin: Warm and Dry
Neuro: Awake, Alert, Oriented and Nonfocal/grossly intact
Psych: Calm
Laboratory Results
-
08/12/24 11:42
Laboratory Results
PT 57.7 Sec (11.4-14.6) H 08/12/24 11:42
INR 6.81 H* 08/12/24 11:42
Total Bilirubin 0.7 mg/dl (0.2-1.3) 08/12/24 11:42
AST 32 U/L (17-59) 08/12/24 11:42
ALT 13 U/L (0-50) 08/12/24 11:42
Alkaline Phosphatase 135 U/L (38-126) H 08/12/24 11:42
Data Reviewed
-
Lab Data: Labs Reviewed by me
Old Records: Reviewed
Impression/Plan
-
Supratherapeutic INR with inability to receive dialysis, likely related to Tamiflu
-Give vitamin k 10mg Now
-Recheck INR in AM
Hyperkalemia, mild
-Unable to dialyze due to supratherapeutic INR
-Give Lokelma
-Recheck potassium later this evening and in AM
Recent Influenza Infection
-Stop Tamiflu - Patient received 3 days of 75mg BID which should be sufficient in HD patient
ESRD on HD MoWeFr
-Consult Nephrology
-Continue sevelamer carbonate
-Monitor Daily Weights
Paroxysmal Atrial Fibrillation
-Coumadin on hold due supratherapeutic INR
Essential Hypertension
-Continue carvedilol, clonidine, hydralazine and nifedipine
Hyperlipidemia
-Continue atorvastatin
Diabetes Mellitus, Type II
-Monitor sugars and continue coverage insulin
Cirrhosis / Ascites
-Continue
-Monitor for recurrent ascites
-Consider paracentesis once INR below 3
Esophageal Varies / Portal Gastropathy
-Continue Protonix BID
-Continue sucralfate
Anemia of Chronic Disease
-Hgb stable
Chronic Pain with Opioid Dependence due Spinal Stenosis
-Continue Fentanyl Patch
Anxiety / Depression
-Continue sertraline
DVT proph: SCDs
Code Status: Full Code
[2024-08-12] MEDS: MEPHYTON 10 MG PO (17:27)
[2024-08-12] MEDS: LOKELMA 10 GRAM PO (21:26)
[2024-08-12] MEDS: DURAGESIC 12 MCG/HR PATCH 1 PATCH TRANSDERM (21:32)
[2024-08-12] MEDS: DUPHALAC/CHRONULAC 20 GRAMS PO (21:33)
[2024-08-12] MEDS: PROCARDIA XL (EXTENDED RELEASE) 30 MG PO (21:33)
[2024-08-12] MEDS: NOVOLOG FLEXPEN-LOW RESISTANCE SC (21:33)
[2024-08-12] MEDS: RENVELA 1600 MG PO (21:33)
[2024-08-12] MEDS: APRESOLINE 100 MG PO (21:34)
[2024-08-12] MEDS: PROTONIX 40 MG PO (21:34)
[2024-08-12] MEDS: COREG 6.25 MG PO (21:34)
[2024-08-12] MEDS: LIPITOR 80 MG PO (21:34)
[2024-08-12] MEDS: ROXICODONE 5 MG PO (21:36)
[2024-08-12 23:07] LABS: Glucose - Point of Care 135 mg/dl (70-99)
[2024-08-13 03:00] VITALS: BP 101/50
[2024-08-13 07:01] VITALS: BMI 19.4
[2024-08-13 07:27] LABS: Hematocrit 28.2 % (39.0-52.0); Hemoglobin 9.3 g/dL (13.0-18.0); Mean Corpuscular Hgb 30.1 pg (27.0-31.0); Mean Corpuscular Volume 91.3 fL (80.0-94.0); Mean Platelet Volume 10.2 fL (7.4-10.4); Platelet Count 229 10^3/uL (130-400); Red Blood Cell Count 3.09 10^6/uL (4.70-6.10); Red Cell Dist. Width 14.7 % (11.5-14.5); White Blood Cell Count 11.9 10^3/uL (4.8-10.8)
[2024-08-13 07:37] LABS: INR 2.64; PT 28.2 Sec (11.4-14.6)
[2024-08-13 08:00] VITALS: BP 104/55
[2024-08-13 08:14] LABS: Blood Urea Nitrogen 67 mg/dl (9-20); Calcium 7.7 mg/dl (8.4-10.2); Carbon Dioxide 20 mmol/L (22-30); Chloride 101 mmol/L (98-107); Estimated Creatinine Clearance 8 ml/min; Glucose 85 mg/dl (70-99); Magnesium 2.3 mg/dl (1.6-2.3); Potassium 5.7 mmol/L (3.5-5.1); Sodium 135 mmol/L (135-145); eGFR 6.61
[2024-08-13] MEDS: MANNITOL 25% 12.5 GRAMS IV ×2 (08:15→10:21)
[2024-08-13 08:22] LABS: Glucose - Point of Care 90 mg/dl (70-99)
--- NOTE | 2024-08-13 08:25 | W.PN.NEPH.HD ---
Assessment
-
Patient seen on dialysis
Systolic blood pressure low side at current UF consistent with chronic cirrhosis
INR now less than 3 AV fistula accessed without difficult
Progress Note - Hemodialysis
-
Date of Service: August 13, 2024
Duration: 30 minutes and 3 hours
Potassium Bath: 2
Calcium Bath: 2.5
Opti-Dialyzer: 160
Ultrafiltration: Other (2.5 kg as tolerated)
Blood Flow: 400
Dialysate Flow: 600
Heparin: None
EPO: 4000
[2024-08-13 08:55] VITALS: BP 104/55
[2024-08-13] MEDS: RETACRIT 4000 UNITS IV (09:26)
[2024-08-13] MEDS: APRESOLINE PO (09:34)
[2024-08-13] MEDS: NOVOLOG FLEXPEN-LOW RESISTANCE SC ×2 (09:34→17:16)
[2024-08-13] MEDS: COREG PO (09:34)
[2024-08-13] MEDS: ProAmatine 5 MG PO (09:36)
[2024-08-13 10:24] LABS: Glycohemoglobin (HgbA1c) 5.1 % (4.0-5.6)
[2024-08-13] MEDS: FLEXBUMIN 25% FOR HEMODIALYSIS 12.5 GRAMS IV ×2 (10:31→11:01)
[2024-08-13 12:12] LABS: Glucose - Point of Care 176 mg/dl (70-99)
[2024-08-13] MEDS: PROCARDIA XL (EXTENDED RELEASE) PO (13:03)
[2024-08-13] MEDS: DUPHALAC/CHRONULAC PO (13:03)
[2024-08-13] MEDS: RENVELA PO (13:03)
[2024-08-13] MEDS: RENVELA 1600 MG PO ×2 (13:04→17:17)
[2024-08-13] MEDS: CARAFATE SUSPENSION 1 GM PO (13:04)
[2024-08-13] MEDS: PROTONIX 40 MG PO ×2 (13:07→20:39)
[2024-08-13] MEDS: NEPHROCAP 1 CAPSULE PO (13:09)
[2024-08-13] MEDS: ZOLOFT 50 MG PO (13:09)
[2024-08-13] MEDS: NOVOLOG FLEXPEN-LOW RESISTANCE 1 UNITS SC (13:09)
--- NOTE | 2024-08-13 13:14 | PTCARENOTE ---
SBP this am was 104. During HD the HD nurse stated his bp was in high 60s, Md notified and stat proamatine was ordered and given. SBP improved to 88 and current BP 102/78. While Bp was low, He was awake and talking with me no confusion no lethargy.
Tele showed NSR in 70s. HRR +pp with +2 pitting BLe edema, with painful compressions from SCDs noted. Pt denied any cp palpitations or SOB. I removed the SCDs to give his calfs a break and surya heels elevated on pillow with heel foams applied. His
diet was changed to 1200 fluid restriction, abd large distended soft with ascites noted, he stated this is his normal belly, hyperactive no bm yet this shift. PT stated at baseline he does not get [facility] . He refused to try to
get oob wtih me. Pt currently eating lunch. Pt denies any pain at this time. he has his call nieto next to him, he will call me if he needs anything. he has made zero attempts to get out of bed.
--- NOTE | 2024-08-13 14:17 | W.PN.HOSP.TC ---
Today's Communication/Plan
-
PT eval
USS abdomen
Left a message for [facility] to see the dose of Coumadin, Said CNO will call me back.
Assessment / Plan
Assessment / Plan
59-year-old male sent to ER to be dialyzed through the fistula secondary to elevated INR.
CVS: S1-S2 normal
Chest: CTA B/L
Abdomen: Ascites, NT / Bowel sounds present
Extremities: No edema,
# Supratherapeutic INR 6.8on admission
2.6 today
Received vitamin K 10 mg in er
Restart coumadin
# Hyperkalemia
Lokelma given
Follow levels
# Recent influenza infection
Received 75 mg twice daily of Tamiflu for 3 days. Stop further dose
End end-stage renal disease hemodialysis Thursday
Continue sevelamer
Nephrology for dialysis
# Paroxysmal atrial fibrillation
Coumadin per INR
# Coronary artery disease with history of stents-continue statin, Coreg
# Hypertension-continue clonidine, carvedilol, hydralazine and nifedipine
# Hyperlipidemia-continue statin
# Diabetes-With [id number]-Trra-Dlzen and sliding scale coverage
# Cirrhosis with ascites-check ultrasound
# History of esophageal varices and portal gastropathy/GERD/hiatal hernia-continue Carafate and Protonix
# Anemia of chronic disease
# Chronic pain with opiate dependence due to spinal stenosis-continue fentanyl
# Peripheral artery disease with history of femoropopliteal bypass
# Depression-continue sertraline
# History of C. difficile
# Underweight
# History of migraines
# Hypoalbuminemia
# Ex-smoker
# DVT prophylaxis-elevated INR
# Full code
D/W RN at bed side
D/W Nephrology
Called [facility] to get the dose of Coumadin-
Anticipated Discharge: Within 24 hours
Subjective/Interval History
-
Date of Service: August 13, 2024
Objective Data
-
Labs:
Laboratory Results
08/13/24
06:10
WBC 11.9 H
Hgb 9.3 L
Hct 28.2 L
Plt Count 229
PT 28.2 H
INR 2.64 D
Sodium 135
Potassium 5.7 H
Chloride 101
Carbon Dioxide 20 L
BUN 67 H
Creatinine 8.5 H*
Glucose 85
Calcium 7.7 L
Vital Signs:
Vital Signs
Temp Pulse Resp BP Pulse Ox
97.4 F 67 20 104/55 100
08/13/24 08:55 08/13/24 08:55 08/13/24 08:55 08/13/24 08:55 08/13/24 08:55
--- NOTE | 2024-08-13 15:36 | CM ---
Per chart review, pt is LTC at [facility].
Call to facility for PLOF however no answer.
Will send referral via [facility] for return to SNF when stable.
[2024-08-13 17:01] LABS: Glucose - Point of Care 147 mg/dl (70-99)
[2024-08-13] MEDS: APRESOLINE 100 MG PO ×2 (17:16→22:51)
[2024-08-13 17:39] VITALS: BP 137/65
[2024-08-13 19:00] VITALS: BP 131/68
[2024-08-13] MEDS: PROCARDIA XL (EXTENDED RELEASE) 30 MG PO (20:39)
[2024-08-13] MEDS: DUPHALAC/CHRONULAC 20 GRAMS PO (20:40)
[2024-08-13] MEDS: COREG 6.25 MG PO (20:40)
[2024-08-13 21:52] LABS: Glucose - Point of Care 151 mg/dl (70-99)
[2024-08-13 22:50] VITALS: BP 145/70
[2024-08-13] MEDS: LIPITOR 80 MG PO (22:52)
[2024-08-14] MEDS: COUMADIN 3 MG PO (00:27)
[2024-08-14 03:00] VITALS: BP 141/68
--- NOTE | 2024-08-14 05:00 | PTCARENOTE ---
Patient reported to this RN nausea and an episode of vomiting. MICHELLE Cee notified. One time order for IV benadryl placed. Refer to MAR. Plan of care ongoing.
[2024-08-14] MEDS: BENADRYL 6.25 MG IV (05:18)
[2024-08-14 06:00] VITALS: BMI 19.3
[2024-08-14 06:36] LABS: Hematocrit 30.8 % (39.0-52.0); Hemoglobin 9.9 g/dL (13.0-18.0); Mean Corp Hgb Conc. 32.1 g/dL (33.0-37.0); Mean Corpuscular Hgb 29.6 pg (27.0-31.0); Mean Corpuscular Volume 92.2 fL (80.0-94.0); Mean Platelet Volume 9.5 fL (7.4-10.4); Platelet Count 243 10^3/uL (130-400); Red Blood Cell Count 3.34 10^6/uL (4.70-6.10); Red Cell Dist. Width 14.7 % (11.5-14.5); White Blood Cell Count 8.1 10^3/uL (4.8-10.8)
[2024-08-14 06:36] LABS: INR 1.46; PT 17.9 Sec (11.4-14.6)
[2024-08-14 07:28] LABS: Blood Urea Nitrogen 33 mg/dl (9-20); Calcium 7.8 mg/dl (8.4-10.2); Carbon Dioxide 29 mmol/L (22-30); Chloride 96 mmol/L (98-107); Estimated Creatinine Clearance 13 ml/min; Glucose 114 mg/dl (70-99); Potassium 4.3 mmol/L (3.5-5.1); Sodium 137 mmol/L (135-145); eGFR 11.65
[2024-08-14 07:49] VITALS: BP 129/65
[2024-08-14 08:08] LABS: Glucose - Point of Care 112 mg/dl (70-99)
[2024-08-14] MEDS: NOVOLOG FLEXPEN-LOW RESISTANCE SC ×3 (09:12→18:38)
[2024-08-14] MEDS: ZOFRAN 4 MG IV (09:16)
[2024-08-14] MEDS: PROCARDIA XL (EXTENDED RELEASE) 30 MG PO ×2 (09:17→21:10)
[2024-08-14] MEDS: PROTONIX 40 MG PO ×2 (09:17→21:14)
[2024-08-14] MEDS: DUPHALAC/CHRONULAC 20 GRAMS PO (09:17)
[2024-08-14] MEDS: APRESOLINE 100 MG PO ×2 (09:17→22:59)
[2024-08-14] MEDS: COREG 6.25 MG PO ×2 (09:17→21:15)
[2024-08-14] MEDS: NEPHROCAP 1 CAPSULE PO (09:17)
[2024-08-14] MEDS: RENVELA 1600 MG PO (09:17)
[2024-08-14] MEDS: ZOLOFT 50 MG PO (09:17)
[2024-08-14] MEDS: ROXICODONE 5 MG PO (10:59)
--- NOTE | 2024-08-14 11:29 | W.PN.NEPH.PH ---
Today's Communication / Plan
-
Dialysis tomorrow orders provided
Assessment/Plan
-
Impression:
Influenza
Hyperkalemia 5.9
Coagulopathy with INR of 6.8 (in setting of advanced liver disease)/Coumadin administration
h/o GIB /portal gastropathy
Multi drug hypertension
Recurrent ascites
ESRD on hemodialysis at [facility], previously [facility]
Anemia of ESRD
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
Paroxysmal Atrial Fibrillation
Chronic HFpEF
History of bilateral pleural effusions status post thoracentesis
History of pericardial effusion status post pericardiocentesis
Coronary artery disease
Essential hypertension
DM2 with multiple microvascular complications
Hyperlipidemia
Spinal stenosis
Anxiety/depression
L radial AVF
Plan:
Patient to be scheduled tomorrow for dialysis
Hold further Tamiflu until after HD then 30mg after each HD if warranted
Hemodynamically stable
Maintain phos binders with meals for hyperphosphatemia
Maintain current antihypertensives in setting of hypertension
Hemoglobin stable, will provide JAIME on dialysis tomorrow
Fluid restriction of 1500 cc daily low-sodium low potassium diet
Patient will need INR to be decreased and would advise vitamin K administration to get INR under 5 for dialysis access of fistula
-
-
Date of Service: August 14, 2024
CC / HPI / ROS
-
Chief Complaint:
ESRD
History of Present Illness:
ESRD Thursday [facility] dialysis unit
Hemodynamically stable
Anemia stable on JAIME
Review of Systems:
Significant malaise and abdominal discomfort
No fevers
Labs
-
Labs:
WBC 8.1 10^3/uL (4.8-10.8) 08/14/24 05:30
RBC 3.34 10^6/uL (4.70-6.10) L 08/14/24 05:30
Hgb 9.9 g/dL (13.0-18.0) L 08/14/24 05:30
Hct 30.8 % (39.0-52.0) L 08/14/24 05:30
Plt Count 243 10^3/uL (130-400) 08/14/24 05:30
Sodium 137 mmol/L (135-145) 08/14/24 05:30
Potassium 4.3 mmol/L (3.5-5.1) 08/14/24 05:30
Chloride 96 mmol/L (98-107) L 08/14/24 05:30
Carbon Dioxide 29 mmol/L (22-30) 08/14/24 05:30
BUN 33 mg/dl (9-20) H 08/14/24 05:30
Creatinine 5.3 mg/dL (0.7-1.3) H* 08/14/24 05:30
eGFR 11.65 08/14/24 05:30
Glucose 114 mg/dl (70-99) H 08/14/24 05:30
Calcium 7.8 mg/dl (8.4-10.2) L 08/14/24 05:30
Albumin 2.5 g/dl (3.5-5.0) L 08/12/24 11:42
Physical Exam
-
Vital Signs:
Vital Signs
Temp Pulse Resp BP Pulse Ox
98.4 F 87 20 129/65 96
08/14/24 07:49 08/14/24 07:49 08/14/24 07:49 08/14/24 07:49 08/14/24 07:49
Cardiovascular:: Regular rate and rhythm
Respiratory:: Bilateral: CTA (anteriorly)
Lung Excursion:: Normal
Abdomen:: Distended, Nontender and Soft
Extremity Edema:: +1: Bilateral: (trace)
Alfred Catheter: No
--- NOTE | 2024-08-14 12:30 | PTCARENOTE ---
US called for patient . PT refused to go. I explained the importance of going as he had been complaining of vomiting and nausea all morning. Pt insisted he would not go MD notified
[2024-08-14 13:07] LABS: Glucose - Point of Care 142 mg/dl (70-99)
[2024-08-14] MEDS: RENVELA PO ×2 (13:24→18:02)
[2024-08-14] MEDS: TIGAN 200 MG IM (13:29)
[2024-08-14] MEDS: CARAFATE SUSPENSION 1 GM PO (13:29)
--- NOTE | 2024-08-14 14:15 | W.PN.HOSP.TC ---
Addendum entered and electronically signed by Taran Butt MD 08/14/24 14:52:
Spoke to sister and updated
Addendum entered and electronically signed by Taran Butt MD 08/14/24 14:30:
Called and left a message for sister
Original Note:
Today's Communication/Plan
-
Tigan
USS abdomen
X ray abdomen
Maalox
Change Coumadin to Eliquis
Assessment / Plan
Assessment / Plan
59-year-old male sent to ER to be dialyzed through the fistula secondary to elevated INR.
CVS: S1-S2 normal
Chest: CTA B/L
Abdomen: Ascites, distended, Bowel sounds present
Extremities: No edema,
# Nausea and vomited. Mud colored.
Check Abdomen X ray
Tigan given. EKG reviewed by me with prolonged QTc
# Abnormal looking EKG-check troponin
# Supratherapeutic INR 6.8on admission
Vitamin K 10 mg in er
Stop Coumadin and start Eliquis
# Hyperkalemia
Resolved
# Recent influenza infection
Received 75 mg twice daily of Tamiflu for 3 days. Stop further dose
End end-stage renal disease hemodialysis Thursday
Continue sevelamer
Nephrology for dialysis
# Paroxysmal atrial fibrillation- Eliquis
# Prolonged QTc-watch on telemetry
# Coronary artery disease with history of stents-continue statin, Coreg
# Hypertension-continue clonidine, carvedilol, hydralazine and nifedipine
# Hyperlipidemia-continue statin
# Diabetes-With mwhafxzsyx-Sgfk-Mjwnz and sliding scale coverage
# Cirrhosis with ascites-check ultrasound
# History of esophageal varices and portal gastropathy/GERD/hiatal hernia-continue Carafate and Protonix
# Anemia of chronic disease
# Chronic pain with opiate dependence due to spinal stenosis-continue fentanyl
# Peripheral artery disease with history of femoropopliteal bypass
# Depression-continue sertraline
# History of C. difficile
# Underweight
# History of migraines
# Hypoalbuminemia
# Ex-smoker
# DVT prophylaxis-elevated INR
# Full code
D/W RN at bed side
D/W Nephrology
Called [facility] to get the dose of Coumadin- never got a call back.
Reviewed with the patient why he is on Coumadin and not on Eliquis he stated that he was placed on Coumadin a couple of years ago hoping that he would be a candidate for kidney transplant. Patient does not think that is the case anymore. The
Coumadin levels are up and down I would start him on Eliquis instead. Spoke to pharmacy. with BMI and on HD will do 2.5 mg BID
time spent over 50 min
Anticipated Discharge: Within 24 hours
Subjective/Interval History
-
Date of Service: August 14, 2024
Objective Data
-
Labs:
Laboratory Results
08/14/24 08/14/24
05:29 05:30
WBC 8.1
Hgb 9.9 L
Hct 30.8 L
Plt Count 243
PT 17.9 H
INR 1.46
Sodium 137
Potassium 4.3
Chloride 96 L
Carbon Dioxide 29
BUN 33 H
Creatinine 5.3 H*
Glucose 114 H
Calcium 7.8 L
Vital Signs:
Vital Signs
Temp Pulse Resp BP Pulse Ox
98.4 F 87 20 129/65 96
08/14/24 07:49 08/14/24 07:49 08/14/24 07:49 08/14/24 07:49 08/14/24 07:49
I&O
08/13/24 08/14/24 08/15/24
06:59 06:59 06:59
Intake Total 2039
Balance 2039
--- NOTE | 2024-08-14 15:09 | PTCARENOTE ---
PT vomited dark brown mud color. pt pale nauseated, pt complained of midsternal cp that started this am no radiation no jaw pain, EKG obtained with some abnormal findings.in I II V1 V2 leads notified maya orderd, malox ordered. pt continues to
vomit. PT did refuse his US this AM but is now agreeable to go. US will call for patient in one hour and Xray agreed to take him at that time. PT just vomitted again same color.
[2024-08-14 15:15] LABS: Troponin I < 0.012 ng/ml
[2024-08-14 15:58] VITALS: BP 139/71
[2024-08-14] MEDS: MAALOX 30 ML PO (16:07)
[2024-08-14] MEDS: APRESOLINE PO (18:02)
[2024-08-14 18:06] LABS: Glucose - Point of Care 107 mg/dl (70-99)
[2024-08-14 19:00] VITALS: BP 156/81
[2024-08-14 21:09] LABS: Troponin I < 0.012 ng/ml
[2024-08-14] MEDS: ELIQUIS 2.5 MG PO (21:15)
[2024-08-14] MEDS: DUPHALAC/CHRONULAC PO ×2 (21:15→21:21)
[2024-08-14] MEDS: LIPITOR 80 MG PO (22:59)
[2024-08-14 23:00] VITALS: BP 133/69
[2024-08-14 23:49] LABS: Glucose - Point of Care 74 mg/dl (70-99)
[2024-08-15] VITALS (7 sets, daily range): BP systolic 103–147; BP diastolic 52–70; BMI 19.6
[2024-08-15 08:16] LABS: Glucose - Point of Care 69 mg/dl (70-99)
[2024-08-15] MEDS: NOVOLOG FLEXPEN-LOW RESISTANCE SC ×3 (08:26→16:57)
[2024-08-15] MEDS: APRESOLINE PO ×2 (08:28→17:20)
[2024-08-15] MEDS: COREG PO (08:28)
[2024-08-15] MEDS: DUPHALAC/CHRONULAC PO (08:33)
[2024-08-15] MEDS: RENVELA PO ×3 (08:37→17:21)
[2024-08-15] MEDS: PROCARDIA XL (EXTENDED RELEASE) PO (08:37)
[2024-08-15 09:01] LABS: Glucose - Point of Care 144 mg/dl (70-99)
[2024-08-15 11:11] LABS: Glucose - Point of Care 128 mg/dl (70-99)
[2024-08-15] MEDS: NEPHROCAP 1 CAPSULE PO (11:36)
[2024-08-15] MEDS: ZOLOFT 50 MG PO (11:36)
[2024-08-15] MEDS: ELIQUIS 2.5 MG PO ×2 (11:36→20:57)
[2024-08-15] MEDS: PROTONIX 40 MG PO ×2 (11:36→20:57)
[2024-08-15 12:23] LABS: TSH 2.62 uIU/ml (0.47-4.68)
[2024-08-15 13:29] LABS: Hematocrit 27.4 % (39.0-52.0); Hemoglobin 8.8 g/dL (13.0-18.0)
[2024-08-15 13:41] LABS: Carbon Dioxide 27 mmol/L (22-30); Chloride 96 mmol/L (98-107); Potassium 4.9 mmol/L (3.5-5.1); Sodium 134 mmol/L (135-145)
--- NOTE | 2024-08-15 13:45 | W.PN.HOSP.TC ---
Today's Communication/Plan
-
Keep n.p.o.
When patient is agreeable proceed with enema, CAT scan, paracentesis as ordered.
Assessment / Plan
Assessment / Plan
59-year-old male sent to ER to be dialyzed through the fistula secondary to elevated INR.
CVS: S1-S2 normal
Chest: CTA B/L
Abdomen: Ascites, distended, Bowel sounds present, high pitched, Mild tednerness.
Extremities: No edema,
08/14/24 z-eus-wafbrftr 7:49 PM-severe distention of the cecum and proximal colon. Large amount of fecal material in the rectum. Mild small bowel distention. Severe calcific atherosclerotic plaque in the abdominal aorta and common iliac arteries.
Diffuse bone demineralization. Large bilateral lower lobe consolidations.
08/15/2024-x-ray of the chest-bilateral pneumonia right greater than left
08/15/2024-x-ray of the abdomen-mild small bowel dilatation probably ileus improved. Moderate gastric distention progressed
# Nausea and vomiting
X-ray was resulted late yesterday with distention
Colorectal surgery consulted
Both colorectal surgery and I tried to convince the patient to get CAT scan of the abdomen pelvis he is refusing. He is aware about complications of obstruction including rupture.
Keep n.p.o.
For to place NG tube with esophageal varices
Ordered an enema-patient refused that
GI consulted
# Cirrhosis with ascites-ultrasound showed ascites. Paracentesis ordered. IR was going to do it this morning patient refused to go down therefore they are planning to do it tomorrow.
# Bilateral pneumonia-start Zosyn. speech evaluation when not n.p.o. anymore.
# Abnormal looking EKG-negative troponin
# Supratherapeutic INR 6.8on admission
Vitamin K 10 mg in er
Stopped Coumadin and started Eliquis
# Hyperkalemia-Resolved
# Recent influenza infection
Received 75 mg twice daily of Tamiflu for 3 days. Stopped further dose
End end-stage renal disease hemodialysis Thursday
Continue sevelamer
Nephrology for dialysis
# Paroxysmal atrial fibrillation- Eliquis
# Prolonged QTc-watch on telemetry
# Coronary artery disease with history of stents-continue statin, Coreg
# Hypertension-continue clonidine, carvedilol, Hydralazine and nifedipine
# Hyperlipidemia-continue statin
# Diabetes-With xymhlogwke-Ehdk-Llxrm and sliding scale coverage
# History of esophageal varices and portal gastropathy/GERD/hiatal hernia-continue Carafate and Protonix
# Anemia of chronic disease
# Chronic pain with opiate dependence due to spinal stenosis-continue fentanyl
# Peripheral artery disease with history of femoropopliteal bypass
# Depression-continue sertraline
# History of C. difficile
# Underweight
# History of migraines
# Hypoalbuminemia
# Ex-smoker
# DVT prophylaxis-Eliquis
# Full code
D/W RN at bed side
D/W Nephrology
Discussed with colorectal surgery and GI
Discussed with patient regarding complications of him refusing all recommendations including bowel blockage and rupture. I spoke to patient's sister and updated about patient's decision. She states that he has a lot going on and all his pain
symptoms and dialysis etc. Discussed with her regarding the reasoning for the test that we ordered, enema and procedure. Also discussed about the downside of not getting it done today.
(Called [facility] to get the dose of Coumadin- never got a call back.
Reviewed with the patient why he is on Coumadin and not on Eliquis he stated that he was placed on Coumadin a couple of years ago hoping that he would be a candidate for kidney transplant. Patient does not think that is the case anymore. The
Coumadin levels are up and down I would start him on Eliquis instead. Spoke to pharmacy. with BMI and on HD will do 2.5 mg BID)
time spent over 55 min
Anticipated Discharge: > 48 hours
Subjective/Interval History
-
Date of Service: August 15, 2024
Objective Data
-
Labs:
Laboratory Results
08/15/24 08/15/24
13:19 13:20
Hgb 8.8 L
Hct 27.4 L
PT Pending
INR Pending
Sodium 134 L
Potassium 4.9
Chloride 96 L
Carbon Dioxide 27
Vital Signs:
Vital Signs
Temp Pulse Resp BP Pulse Ox
97.1 F 76 20 103/58 97
08/15/24 11:27 08/15/24 11:27 08/15/24 11:27 08/15/24 11:27 08/15/24 11:27
I&O
08/14/24 08/15/24 08/16/24
06:59 06:59 06:59
Intake Total 2039 360 / 360 240 / 240
Balance 2039 360 / 360 240 / 240
[2024-08-15 14:03] LABS: INR 2.34; PT 25.7 Sec (11.4-14.6)
--- NOTE | 2024-08-15 14:15 | CON.CRS ---
Consultation
-
Date/Time Consultation Requested: 08/15/2024, 08:45
Date/Time Consultation Performed: 08/15/2024, 09:45
Requesting Provider: Taran Butt MD
Performing Provider: Deondre Sánchez MD
Reason for Consultation: constipation
Medical History
-
Chief Complaint: abdominal distention/constipation
History of Present Illness:
59-year-old male presents to [facility] on 08/12/2024 due to a supratherapeutic INR from hemodialysis. Of note he also had influenza earlier this week and has been on Tamiflu. He was admitted with an INR of 2.92. Since admission he has
undergone dialysis. He has also been scheduled for another paracentesis with interventional radiology for ascites. Subsequently he developed nausea and vomiting. An abdominal x-ray showed a mild small bowel dilatation probably due to ileus. He
also remains distended. Given these findings, we have been consulted for further surgical opinion.
Past Medical History
Past Medical History: Other (ASCVD, HFpEF, afib, HTBN, ESRD on HD, Anemia, CKD, Diabetes Mellitus, Type II Peripheral neuropathy Spinal stenosis Cirrhosis / Ascites GERD Anxiety / Depression)
Past Surgical History: Other (LUE, AVF, Back Surgery, Serial Paracenteses)
Social History
Tobacco: Former Smoker
Alcohol: None
Drug: None
Family History
Family History: Reviewed & Not Pertinent
Allergies / Home Medications
Allergy/AdvReac Type Severity Reaction Status Date / Time
No Known Allergies Allergy Verified 06/16/24 11:42
�Medication �Instructions �Recorded �Confirmed �Type
atorvastatin 80 mg tablet 80 mg PO HS High Cholesterol 12/23/22 08/12/24 History
lidocaine-prilocaine 2.5 %-2.5 % 1 applic topical MOWEFR PRN port 12/23/22 08/12/24 History
topical cream access
vitamin B complex-vitamin C 100 1 tab PO DAILY Supplement 07/29/23 08/12/24 History
mg-folic acid 1 mg tablet
(Dialyvite)
hydralazine 100 mg tablet 100 mg PO TID Blood Pressure 10/29/23 08/12/24 History
pantoprazole 40 mg tablet,delayed 40 mg PO BID Gastrointestinal Issue 03/17/24 08/12/24 History
release
carvedilol 6.25 mg tablet 6.25 mg PO BID Blood pressure 1 03/31/24 08/12/24 Rx
month #60 tabs
nifedipine 30 mg tablet,extended 30 mg PO BID Blood pressure 1 03/31/24 08/12/24 Rx
release month #60 tabs
acetaminophen 325 mg tablet 650 mg PO Q6HPRN PRN mild 04/06/24 08/12/24 History
(Tylenol) pain/fever
bisacodyl 10 mg rectal suppository 10 mg HI DAILYPRN PRN if no bm 04/06/24 08/12/24 History
(Dulcolax (bisacodyl)) aftr mom
clonidine 0.3 mg/24 hr weekly 0.3 mg transdermal TH Blood 04/06/24 08/12/24 History
transdermal patch pressure
ondansetron HCl 4 mg tablet 4 mg PO Q6HPRN PRN nausea 04/06/24 08/12/24 History
polyethylene glycol 3350 17 gram 17 g PO DAILYPRN PRN Constipation 04/06/24 08/12/24 History
oral powder packet
loperamide 2 mg capsule 2 mg PO Q6HPRN PRN loose stool 04/11/24 08/12/24 History
acetaminophen 500 mg tablet 500 mg PO Q6HPRN PRN mild pain 04/27/24 08/12/24 History
(Tylenol Extra Strength)
cyclopentolate 2 % eye drops 1 drp RIGHT EYE TID Eye Condition 04/27/24 08/12/24 History
difluprednate 0.05 % eye drops 1 drp RIGHT EYE Q2H Eye Condition 04/27/24 08/12/24 History
(Durezol)
dorzolamide-timolol (PF) 2 %-0.5 % 1 drp RIGHT EYE BID Eye Condition 04/27/24 08/12/24 History
eye drops in a dropperette (Cosopt
(PF))
insulin lispro 100 unit/mL 2 - 12 sliding scale dose SC AC 04/27/24 08/12/24 History
subcutaneous pen Diabetes
fentanyl 12 mcg/hr transdermal 1 patch transdermal Q72H #1 ea 04/30/24 08/12/24 Rx
patch
sucralfate 100 mg/mL oral 1 g (10 mL) PO DAILY@1200 #300 mL 04/30/24 08/12/24 Rx
suspension
oxycodone 5 mg tablet 5 mg PO Q4HPRN PRN severe pain 05/31/24 08/12/24 History
sertraline 50 mg tablet 50 mg PO DAILY 05/31/24 08/12/24 History
tramadol 50 mg tablet 50 mg PO Q6HPRN PRN moderate pain 05/31/24 08/12/24 History
hydralazine 10 mg tablet 5 mg PO MOWEFR PRN sbp >180 08/12/24 08/12/24 History
lactulose 10 gram/15 mL oral 30 ml PO BID 08/12/24 08/12/24 History
solution
oseltamivir 75 mg capsule (Tamiflu) 75 mg PO BID 08/12/24 08/12/24 History
sevelamer carbonate 800 mg tablet 1,600 mg PO MEALS Kidney Disease 08/12/24 08/12/24 History
Review of Systems
-
History Source: Patient
Abdomen/GI: Nausea and Vomiting
A 10 point review of systems was completed, and was negative except as per HPI.
Physical Exam
Vital Signs
Temp 97.1 F 08/15/24 11:27
Pulse 76 08/15/24 11:27
Resp Rate 20 08/15/24 11:27
Blood pressure 103/58 08/15/24 11:27
SaO2 97 08/15/24 11:27
08/14/24 08/15/24 08/16/24
06:59 06:59 06:59
Actual Weight 63.73 kg 64.665 kg
Body Mass Index (BMI) 19.6
Lab Results / Allergies
08/15/24 13:20
08/15/24 13:19
WBC 8.1 10^3/uL (4.8-10.8) 08/14/24 05:30
Hgb 8.8 g/dL (13.0-18.0) L 08/15/24 13:20
Hct 27.4 % (39.0-52.0) L 08/15/24 13:20
Plt Count 243 10^3/uL (130-400) 08/14/24 05:30
Abs Immat Gran (auto) 0.0 10^3/uL (0-0.05) 08/12/24 11:42
Neutrophils % 92.7 % (42.2-75.2) H 08/12/24 11:42
Allergy/AdvReac Type Severity Reaction Status Date / Time
No Known Allergies Allergy Verified 06/16/24 11:42
Physical Exam
General: Well Developed, Well Nourished and No Apparent Distress
GI: Soft, Non Tender and Distended
Skin: Warm and Dry
Neuro: AO x 3
Data Reviewed
-
CT Scan: Image Personally Visualized and interpreted, Report Reviewed by me and Discussed with Patient
Labs: Labs Reviewed by me, Discussed with Physician and Discussed with Patient
Old Records: Reviewed
Assessment / Plan
-
Assessment: 59-year-old male with end-stage renal disease and history of ascites on Coumadin presents to [facility] with a 6 supratherapeutic INR and
Distention found to have a large amount of fecal matter in the colon.
Plan:
- Recommend CT of the abdomen and pelvis-patient currently says he 'does not want to do it today maybe tomorrow'
- Further evaluation after imaging
- Agree with milk of magnesia enema
--- NOTE | 2024-08-15 14:41 | CON.GI ---
Addendum entered and electronically signed by Derek Juárez MD 08/16/24 19:39:
I saw and examined the patient.
The PALLIATIVE CARE NURSE or PA's note was reviewed and I agree with the note.
Comment:
Pt is a 59 ylo with decompensated cirrhosis. He has no specific complaints. flat affect
oriented
impression:
ESLD
ESRD
ascites
constipation
plan:
Recommended enema and CT and pt has been refusing. He states he is willing to get on
DNR code status
lactulose
Addendum entered and electronically signed by Oscar Lopez MD 08/15/24 18:17:
The patient was seen and examined by me independently in collaboration with the nurse practitioner.
Past medical history/social history/medications/allergies/family history reviewed.
Lab data and imaging data reviewed.
59 yo M recent diagnosis of decompensated cirrhosis with ascites with SBP in past, small EV, GIB in past thought to be 2/2 portal HTN, dialysis patient admitted with incidentally elevated INR and flu.
GI consulted for n/v, abd distension. Reviewing prior admissions he had admissions for the same in the past including most recently 03/2024.
On XR today had mild small bowel dilation likely 2/2 ileus improved and gastric distension progressed.
Colorectal surgery also seen patient for stool seen in colon recommended MoM enema and CT pt does not want enema as he is not constipated and CT he said he would be willing to proceed tomorrow after paracentesis.
Plan paracentesis tomorrow and then would do CT for further evaluation of the gastric distension.
Reviewing EGD had small varices in the fall but will hold off on NGT for now.
Mental status is fluctuating on lactulose BID will increase to TID (will also help with constipation seen on imaging) but may worsen nausea, monitor. Mental status fluctuating may be due to flu.
Please note Pall care has seen patient on 03/2024: 'Goals are currently treatment oriented
Patient will need LTC placement at a facility that can accommodate dialysis
Patient wishes to change code status to DNR - will place order
Attending team updated'
Original Note:
Consultation
-
Date/Time Consultation Requested: 08/15/24 1400
Date/Time Consultation Performed: 08/15/24 1445
Requesting Provider: Taran Cordova MD
Performing Provider: MICHELLE Wilson, Sheryl Lopez MD
Reason for Consultation: abdominal distention
Medical History
Chief Complaint / HPI
Chief Complaint: GI Bleed
History of Present Illness:
Pt is a 59yo with hx decompensated cirrhosis diagnosed 12/2023, ascites hx prior esophageal varices, prior SBP, prior GI bleeding, ASCVD, AFib (prior coumadin now on Eliquis), CHF, DM, neuropathy, spinal stenosis with chronic back and shoulder
pain, pleural effusion, pericardial effusion, frequent fall, ESRD on HD, neuropathy, GERD ? carrera's, c-diff, anxiety/depression with elevated INR 8.2 at SNF as recently noted flu and given tamiflu. In review of chart last [facility] eval was
in February. Her has followed in past with [facility] and [facility] and was advised follow up at [facility] and pt unable to state if follow up was completed. Per prior noted Etiology of cirrhiosis ? MASH/ ? ETOH with former ETOH use, no formal
serology work up at [facility] except hep B/C neg with hep B immunity. Asked to see for abdominal distention, nausea, and vomiting. He has been seen by colorectal surgery as abdominal imaging with severe air distention of cecum and proximal colon
and large amount of stool in rectum. He was recommended MOM enema and CT and was declining some interventions.
In review with patient he admits to abdominal pain with some nausea and vomiting. He admits to occasional GERD and loose stool but noted with increased stool burden on imaging. He denies dysphagia, odynophagia, or rectal bleeding. On
admission patient is noted with multiple labs abnormalities with WBC up to 14,100, hbg 10.2 with drop to 8.8, INR 8.2 Outpatient then 6.81 on admission, K 5.9, BUN 61, creat 5-8 range (on chronic HD).
Prior GI Procedures:
-EGD [facility] 03/19/24- coffee ground emesis,small grade I EV, irregular Zline, small HH, portal HTN gastropathy, normal duodenum
-EGD on 02/09/24-garcia severe esophagitis low third, Grade I EV lower third, A single localized small erosion with active bleeding was found in the cardia. scope trauma vs ty lesion. no Varix, clip place. hematin in stomach normal duodenum.
EGD: [facility] 06/29/23 EGD esophagitis no active bleeding
colonoscopy [facility] 06/29/23 diverticulosis no active bleeding
EGD : Done September 2023 [place] --irreg margins and erythema of mucosa no bleeding in GE junction c/w esophagitis, gastritis, pigmented mucosa
Past Medical History
Past Medical History: Arrhythmias (Paroxysmal atrial fibrillation on Coumadin), CAD, CHF, GERD (? Carrera's esophagus), HTN, Renal Failure (On hemodialysis Thursday) and Other (Spinal stenosis, chronic iron deficiency anemia, pleural
effusion, cirrhosis (new dx 12/2023), ascites, grade I EV, GI bleed with lesion in cardia scope trauma vs ty lesion, severe esophagitis)
Past Surgical History: Other (Left lower arm AV fistula)
Social History
Tobacco: Former Smoker
Alcohol: Occasional (per chart quit 5 years ago )
Drug: None
Living: [facility] (cousin)
Employment: Not Employed
Family History
Family History: Other (no family hx colon CA or polyps)
Allergies / Home Medications
Allergy/AdvReac Type Severity Reaction Status Date / Time
No Known Allergies Allergy Verified 06/16/24 11:42
�Medication �Instructions �Recorded
atorvastatin 80 mg tablet 80 mg PO HS High Cholesterol 12/23/22
lidocaine-prilocaine 2.5 %-2.5 % 1 applic topical MOWEFR PRN port 12/23/22
topical cream access
vitamin B complex-vitamin C 100 1 tab PO DAILY Supplement 07/29/23
mg-folic acid 1 mg tablet
(Dialyvite)
hydralazine 100 mg tablet 100 mg PO TID Blood Pressure 10/29/23
pantoprazole 40 mg tablet,delayed 40 mg PO BID Gastrointestinal Issue 03/17/24
release
carvedilol 6.25 mg tablet 6.25 mg PO BID Blood pressure 1 03/31/24
month #60 tabs
nifedipine 30 mg tablet,extended 30 mg PO BID Blood pressure 1 03/31/24
release month #60 tabs
acetaminophen 325 mg tablet 650 mg PO Q6HPRN PRN mild 04/06/24
(Tylenol) pain/fever
bisacodyl 10 mg rectal suppository 10 mg IN DAILYPRN PRN if no bm 04/06/24
(Dulcolax (bisacodyl)) aftr mom
clonidine 0.3 mg/24 hr weekly 0.3 mg transdermal TH Blood 04/06/24
transdermal patch pressure
ondansetron HCl 4 mg tablet 4 mg PO Q6HPRN PRN nausea 04/06/24
polyethylene glycol 3350 17 gram 17 g PO DAILYPRN PRN Constipation 04/06/24
oral powder packet
loperamide 2 mg capsule 2 mg PO Q6HPRN PRN loose stool 04/11/24
acetaminophen 500 mg tablet 500 mg PO Q6HPRN PRN mild pain 04/27/24
(Tylenol Extra Strength)
cyclopentolate 2 % eye drops 1 drp RIGHT EYE TID Eye Condition 04/27/24
difluprednate 0.05 % eye drops 1 drp RIGHT EYE Q2H Eye Condition 04/27/24
(Durezol)
dorzolamide-timolol (PF) 2 %-0.5 % 1 drp RIGHT EYE BID Eye Condition 04/27/24
eye drops in a dropperette (Cosopt
(PF))
insulin lispro 100 unit/mL 2 - 12 sliding scale dose SC AC 04/27/24
subcutaneous pen Diabetes
fentanyl 12 mcg/hr transdermal 1 patch transdermal Q72H #1 ea 04/30/24
patch
sucralfate 100 mg/mL oral 1 g (10 mL) PO DAILY@1200 #300 mL 04/30/24
suspension
oxycodone 5 mg tablet 5 mg PO Q4HPRN PRN severe pain 05/31/24
sertraline 50 mg tablet 50 mg PO DAILY depression/anxiety 05/31/24
tramadol 50 mg tablet 50 mg PO Q6HPRN PRN moderate pain 05/31/24
hydralazine 10 mg tablet 5 mg PO MOWEFR PRN sbp >180 08/12/24
lactulose 10 gram/15 mL oral 30 ml PO BID constipation 08/12/24
solution
oseltamivir 75 mg capsule (Tamiflu) 75 mg PO BID influenza 08/12/24
sevelamer carbonate 800 mg tablet 1,600 mg PO MEALS Kidney Disease 08/12/24
Review of Systems
-
History Source: Patient
Constitutional: Reports Weight Loss (over last few years )
EENT: Reports No Symptoms
Respiratory: Reports Trouble Breathing
Cardiac: Reports No Symptoms
Abdomen/GI: Reports Abdominal Pain (with distention ), Nausea, Vomiting and Diarrhea
: Reports No Symptoms and Other (on chronic HD)
Musculoskeletal: Reports No Symptoms
Skin: Reports No Symptoms
Neurological: Reports Weakness
Endocrine: Reports No Symptoms
Hematologic/Lymphatic: Reports No Symptoms
Vital Signs
Temp Pulse Resp BP Pulse Ox
97.1 F 76 20 103/58 97
08/15/24 11:27 08/15/24 11:27 08/15/24 11:27 08/15/24 11:27 08/15/24 11:27
Physical Exam
Exam
General: Other (ill appearing with cachexia )
HEENT: Normocephalic and Anicteric
Respiratory: Clear
Cardiac: Regular Rhythm
GI: Soft, Tender (minimal ) and Distended
Rectal: Deferred by Provider
Musculoskeletal: No Clubbing and No Cyanosis
Skin: Warm and Dry
Neuro: Other (answering questsions with some drifting off in conversation)
Psych: Calm
Results
WBC 8.1 10^3/uL (4.8-10.8) 08/14/24 05:30
Hgb 8.8 g/dL (13.0-18.0) L 08/15/24 13:20
Hct 27.4 % (39.0-52.0) L 08/15/24 13:20
MCV 92.2 fL (80.0-94.0) 08/14/24 05:30
Plt Count 243 10^3/uL (130-400) 08/14/24 05:30
Absolute Neuts (auto) 13.1 10^3/uL (1.4-6.5) H 08/12/24 11:42
PT 25.7 Sec (11.4-14.6) H 08/15/24 13:20
INR 2.34 08/15/24 13:20
Sodium 134 mmol/L (135-145) L 08/15/24 13:19
Potassium 4.9 mmol/L (3.5-5.1) 08/15/24 13:19
Chloride 96 mmol/L (98-107) L 08/15/24 13:19
Carbon Dioxide 27 mmol/L (22-30) 08/15/24 13:19
BUN 33 mg/dl (9-20) H 08/14/24 05:30
Creatinine 5.3 mg/dL (0.7-1.3) H* 08/14/24 05:30
Calcium 7.8 mg/dl (8.4-10.2) L 08/14/24 05:30
Total Bilirubin 0.7 mg/dl (0.2-1.3) 08/12/24 11:42
AST 32 U/L (17-59) 08/12/24 11:42
ALT 13 U/L (0-50) 08/12/24 11:42
Alkaline Phosphatase 135 U/L (38-126) H 08/12/24 11:42
Diagnostic Image Results:
08/15/24 CR Chest Portable - 1 View
Findings suggesting bilateral pneumonia, right greater than left.
Mild cardiomegaly. New
08/15/24 CR Abdomen, Portable - 1 View
Mild small bowel dilatation probably due to ileus. Improved.
Bowel: There is mild small bowel dilatation in the right abdomen measuring 4.2 cm. There is moderate distention of the stomach.. There is moderate fecal material throughout the colon.oderate gastric distention. Progressed.
08/14/24 CR Abdomen - 2 Views
1. Severe air distention of the cecum and proximal colon.
2. Large amount of fecal material in the rectum.
3. Mild small bowel distention.
4. Severe calcific atherosclerotic plaque in the abdominal aorta and common iliac arteries.
5. Diffuse bone demineralization.
6. Large bilateral lower lobe airspace consolidations.
08/14/24 Us limited
SEVERE ASCITES.
Prior GI Procedures:
-EGD [facility] 03/19/24- coffee ground emesis,small grade I EV, irregular Zline, small HH, portal HTN gastropathy, normal duodenum
-EGD on 02/09/24-garcia severe esophagitis low third, Grade I EV lower third, A single localized small erosion with active bleeding was found in the cardia. scope trauma vs ty lesion. no Varix, clip place. hematin in stomach normal duodenum.
EGD: [facility] 06/29/23 EGD esophagitis no active bleeding
colonoscopy [facility] 06/29/23 diverticulosis no active bleeding
EGD : Done September 2023 [place] --irreg margins and erythema of mucosa no bleeding in GE junction c/w esophagitis, gastritis, pigmented mucosa
Assessment / Plan
-
Pt is a 59yo with hx decompensated cirrhosis diagnosed 12/2023, ascites hx prior esophageal varices, prior SBP, prior GI bleeding, ASCVD, AFib (prior coumadin now on Eliquis), CHF, DM, neuropathy, spinal stenosis with chronic back and shoulder
pain, pleural effusion, pericardial effusion, frequent fall, ESRD on HD, neuropathy, GERD ? carrera's, c-diff, anxiety/depression with elevated INR 8.2 at SNF as recently noted flu and given tamiflu. In review of chart last [facility] eval was
in February. [facility] advised follow up at [facility] and pt unable to state if follow up was completed. Per prior noted Etiology of cirrhiosis ? MASH/ ? ETOH with former ETOH use, no formal
serology work up at [facility] except hep B/C neg with hep B immunity. Asked to see for abdominal distention, nausea, and vomiting. He has been seen by colorectal surgery as abdominal imaging with severe air distention of cecum and proximal colon
and large amount of stool in rectum. He was recommended MOM enema and CT and was declining some interventions. He also admits to diarrhea at time bu noted with large stool in rectum on imaging. On admission patient is noted with multiple labs
abnormalities with WBC up to 14,100, hbg 10.2 with drop to 8.8, INR 8.2 Outpatient then 6.81 on admission, K 5.9, BUN 61, creat 5-8 range (on chronic HD).
-elevated INR on admission
-cirrhosis - MASH vs ETOH
-abdominal pain
-gastric distention on abd film
-nausea
-recurrent ascites
-diarrhea with concern increased stool burden on imaging on admission
-mild change in mental status
-anemia
-recent flu +
- hx several GI bleeds
-HTN on admission
-PAF (Coumadin prior to admission now on Eliquis)
other med problems:
NIDDM
ESRD on HD
HFpEF
Barretts esophagus
pleural effusion
hx pericardicentesis
spinal stenosis
-C-diff
-hx constipation
PLAN:
Etiology of abdominal pain related to moderate stool still seen in colon, SBP, ileus vs other
pt also with decompensated cirrhosis MELD -- limited with recent elevated INR with coumadin use and HD
concern as pt recommend multiple intervention -- para, enema, CT and declining--
I reviewed with patient but drifting off in conversation
I reviewed with sister concern for progression of chronic illnesses and reviewed goals of care
she would like us if patient more awake in AM to discuss again with him and again review DNR status-- she states he has good days and bad days and seems recently worse with + flu --she does admits he has discussed DNR status a few weeks ago and did
want to proceed with full code status at that time. We also discussed with abdominal pain pt declining interventions that may help. She will try to review with him later today if able.
sister is aware he likely is not a candidate for renal transplant (prior on transplant list) and would not want to proceed with liver transplant evaluation
will restart lactulose if pt willing to take but may hold with nausea
cont to hold carafate with constipation
reviewed with nursing staff and Dr. Cordova
-
-
Thank you for consultation and allowing me to participate in the patient's care. Please call the environmental health officer GI physician during the after hours with any questions or concerns.
--- NOTE | 2024-08-15 14:56 | PTCARENOTE ---
Despite education offered by RN about plan of care and medications, pt is refusing most medications, turns, milk of molasses enema. Please see MAR/flowsheets/MD notes for further care details.
--- NOTE | 2024-08-15 15:00 | W.PN.NEPH.HD ---
Assessment
-
Seen on HD. no new complaints. Abdominal discomfort. refused CT. VSS, access ok
for LVP tomorrow
Progress Note - Hemodialysis
-
Date of Service: August 15, 2024
Duration: 30 minutes and 3 hours
Potassium Bath: 2
Calcium Bath: 2.5
Opti-Dialyzer: 160
Ultrafiltration: Other (2kg)
Dialysate Flow: 600
Heparin: 0
EPO: 6000 units
[2024-08-15] MEDS: RETACRIT 6000 UNITS IV (15:46)
[2024-08-15 16:53] LABS: Glucose - Point of Care 103 mg/dl (70-99)
[2024-08-15] MEDS: ZOSYN 50 IV (17:38)
[2024-08-15] MEDS: COREG 6.25 MG PO (20:56)
[2024-08-15] MEDS: DURAGESIC 12 MCG/HR PATCH 1 PATCH TRANSDERM (20:57)
[2024-08-15] MEDS: PROCARDIA XL (EXTENDED RELEASE) 30 MG PO (20:59)
[2024-08-15 22:26] LABS: Glucose - Point of Care 164 mg/dl (70-99)
[2024-08-15] MEDS: APRESOLINE 100 MG PO (22:46)
[2024-08-15] MEDS: DUPHALAC/CHRONULAC 20 GRAMS PO (22:46)
[2024-08-15] MEDS: LIPITOR 80 MG PO (22:49)
[2024-08-15] MEDS: TYLENOL 650 MG PO (22:50)
[2024-08-16] MEDS: ZOSYN 50 IV ×2 (00:53→13:04)
[2024-08-16 03:00] VITALS: BP 97/44
[2024-08-16 06:00] VITALS: BMI 19.5
[2024-08-16 06:35] LABS: Hematocrit 27.8 % (39.0-52.0); Mean Corp Hgb Conc. 32.4 g/dL (33.0-37.0); Mean Corpuscular Volume 92.7 fL (80.0-94.0); Mean Platelet Volume 9.9 fL (7.4-10.4); Platelet Count 243 10^3/uL (130-400); Red Cell Dist. Width 14.7 % (11.5-14.5); White Blood Cell Count 18.8 10^3/uL (4.8-10.8)
[2024-08-16 06:40] LABS: INR 2.83; PT 29.7 Sec (11.4-14.6)
[2024-08-16 07:01] LABS: Glucose - Point of Care 63 mg/dl (70-99)
[2024-08-16] MEDS: NOVOLOG FLEXPEN-LOW RESISTANCE SC ×3 (07:07→18:17)
[2024-08-16 07:24] LABS: ALT (SGPT) < 10 U/L (0-50); AST (SGOT) 20 U/L (17-59); Albumin 2.1 g/dl (3.5-5.0); Alkaline Phosphatase 139 U/L (38-126); Blood Urea Nitrogen 25 mg/dl (9-20); Calcium 7.7 mg/dl (8.4-10.2); Carbon Dioxide 31 mmol/L (22-30); Chloride 99 mmol/L (98-107); Direct Bilirubin 0.8 mg/dl (0.0-0.4); Estimated Creatinine Clearance 18 ml/min; Glucose 53 mg/dl (70-99); Sodium 138 mmol/L (135-145); Total Protein 5.4 g/dl (6.3-8.2); eGFR 16.32
[2024-08-16] MEDS: DEXTROSE 50% SYRINGE 12.5 GRAMS IV (07:26)
[2024-08-16 07:39] VITALS: BP 98/53
[2024-08-16 07:50] LABS: Glucose - Point of Care 99 mg/dl (70-99)
--- NOTE | 2024-08-16 09:11 | W.PN.NEPH.PH ---
Today's Communication / Plan
-
Dialysis tomorrow
Assessment/Plan
-
Impression:
Influenza
Coagulopathy with INR of 6.8 (in setting of advanced liver disease)/Coumadin administration
h/o GIB /portal gastropathy
Multi drug hypertension
Recurrent ascites
ESRD on hemodialysis at [facility], previously TTS [facility]
Anemia of ESRD
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
Paroxysmal Atrial Fibrillation
Chronic HFpEF
History of bilateral pleural effusions status post thoracentesis
History of pericardial effusion status post pericardiocentesis
Coronary artery disease
Essential hypertension
DM2 with multiple microvascular complications
Hyperlipidemia
Spinal stenosis
Anxiety/depression
L radial AVF
Plan:
Off Tamiflu
HD tomorrow
Maintain phos binders with meals for hyperphosphatemia
Maintain current antihypertensives in setting of hypertension
Fluid restriction of 1500 cc daily low-sodium low potassium diet
Continue Eliquis
-
-
Date of Service: August 16, 2024
CC / HPI / ROS
-
Chief Complaint:
ESRD
History of Present Illness:
ESRD Thursday [facility] dialysis unit
Tolerated dialysis yesterday
Hemodynamically stable
Anemia stable on JAIME
Refusing paracentesis and CT today
Review of Systems:
Significant malaise and abdominal discomfort
No fevers
Labs
-
Labs:
WBC 18.8 10^3/uL (4.8-10.8) H 08/16/24 05:49
RBC 3.00 10^6/uL (4.70-6.10) L 08/16/24 05:49
Hgb 9.0 g/dL (13.0-18.0) L 08/16/24 05:49
Hct 27.8 % (39.0-52.0) L 08/16/24 05:49
Plt Count 243 10^3/uL (130-400) 08/16/24 05:49
Sodium 138 mmol/L (135-145) 08/16/24 05:49
Potassium 4.0 mmol/L (3.5-5.1) 08/16/24 05:49
Chloride 99 mmol/L (98-107) 08/16/24 05:49
Carbon Dioxide 31 mmol/L (22-30) H 08/16/24 05:49
BUN 25 mg/dl (9-20) H 08/16/24 05:49
Creatinine 4.0 mg/dL (0.7-1.3) H 08/16/24 05:49
eGFR 16.32 08/16/24 05:49
Glucose 53 mg/dl (70-99) L* 08/16/24 05:49
Calcium 7.7 mg/dl (8.4-10.2) L 08/16/24 05:49
Albumin 2.1 g/dl (3.5-5.0) L 08/16/24 05:49
Physical Exam
-
Vital Signs:
Vital Signs
Temp Pulse Resp BP Pulse Ox
98.3 F 82 18 98/53 95
08/16/24 07:39 08/16/24 07:39 08/16/24 07:39 08/16/24 07:39 08/16/24 07:39
Cardiovascular:: Regular rate and rhythm
Respiratory:: Bilateral: Coarse
Lung Excursion:: Normal
Abdomen:: Nontender and Soft
Bowel Sounds:: Normal
Extremity Edema:: None: Bilateral:
[2024-08-16] MEDS: COREG PO (09:30)
[2024-08-16] MEDS: APRESOLINE PO (09:31)
[2024-08-16] MEDS: NEPHROCAP 1 CAPSULE PO (09:42)
[2024-08-16] MEDS: PROTONIX 40 MG PO ×2 (09:42→21:00)
[2024-08-16] MEDS: RENVELA PO ×3 (09:42→18:15)
[2024-08-16] MEDS: ZOLOFT 50 MG PO (09:42)
[2024-08-16] MEDS: PROCARDIA XL (EXTENDED RELEASE) PO (09:43)
[2024-08-16] MEDS: DUPHALAC/CHRONULAC PO ×3 (09:48→21:03)
[2024-08-16] MEDS: D10W 1000 IV (09:53)
[2024-08-16 11:04] VITALS: BP 120/64
[2024-08-16 12:03] LABS: Glucose - Point of Care 120 mg/dl (70-99)
--- NOTE | 2024-08-16 13:08 | W.PN.HOSP.TC ---
Today's Communication/Plan
-
Hold hydralazine and nifedipine
D10 for hypoglycemia
Get CT and paracentesis when patient is agreeable
CODE STATUS changed to DNR
Assessment / Plan
Assessment / Plan
59-year-old male sent to ER to be dialyzed through the fistula secondary to elevated INR.
CVS: S1-S2 normal
Chest: CTA B/L
Abdomen: Ascites, distended, Bowel sounds present, high pitched, Mild tenderness.
Extremities: No edema,
08/14/24 [id number] 7:49 PM-severe distention of the cecum and proximal colon. Large amount of fecal material in the rectum. Mild small bowel distention. Severe calcific atherosclerotic plaque in the abdominal aorta and common iliac arteries.
Diffuse bone demineralization. Large bilateral lower lobe consolidations.
08/15/2024-x-ray of the chest-bilateral pneumonia right greater than left
08/15/2024-x-ray of the abdomen-mild small bowel dilatation probably ileus improved. Moderate gastric distention progressed
# Nausea and vomiting
X-ray was resulted late yesterday with distention
Colorectal surgery consulted
Both colorectal surgery and I tried to convince the patient to get CAT scan of the abdomen pelvis he is refusing. He is aware about complications of obstruction including rupture.
Keep n.p.o.
For to place NG tube with esophageal varices
Ordered an enema-patient refused that
GI consulted
# Hypoglycemia-start D10
# Cirrhosis with ascites-ultrasound showed ascites. Paracentesis ordered. Patient refusing
# Bilateral pneumonia-started Zosyn. speech evaluation when not n.p.o. anymore.
# Abnormal looking EKG-negative troponin
# Supratherapeutic INR 6.8on admission
Vitamin K 10 mg in er
Stopped Coumadin and started Eliquis 08/14/2024, but placed Eliquis on hold on 08/16/2024
# Hyperkalemia-Resolved
# Recent influenza infection
Received 75 mg twice daily of Tamiflu for 3 days. Stopped further doses
End end-stage renal disease hemodialysis Thursday
Continue sevelamer
Nephrology for dialysis
# Paroxysmal atrial fibrillation- Eliquis placed on hold today because of elevated INR
# Prolonged QTc-watch on telemetry
# Coronary artery disease with history of stents-continue statin, Coreg
# Hypertension-continue clonidine, carvedilol with parameters , Hold Hydralazine and nifedipine
# Hyperlipidemia-continue statin
# Diabetes-With veldkholww-Akyd-Nnpci and sliding scale coverage
# History of esophageal varices and portal gastropathy/GERD/hiatal hernia-continue Carafate and Protonix
# Anemia of chronic disease
# Chronic pain with opiate dependence due to spinal stenosis-continue fentanyl
# Peripheral artery disease with history of femoropopliteal bypass
# Depression-continue sertraline
# History of C. difficile
# Underweight
# History of migraines
# Hypoalbuminemia
# Ex-smoker
# DVT prophylaxis-elevated INR. Hold Eliquis
# DNR
D/W RN at bed side
D/W Nephrology and GI
Detailed discussion with the patient today with nursing at bedside. He is refusing to get an enema, get a CAT scan, get paracentesis. States that he is too tired and he will do all this on . We discussed that he said the same thing
yesterday that he would do it today. He stated that he does want to get it done under . Tomorrow's dialysis day. CODE STATUS was addressed and he wants to be a DNR. Complications such as sepsis or even was discussed with the
patient. He stated that' then it will be a good thing'. At this point I brought up hospice, he stated that he does not want to discuss about hospice at this point.
I updated the sister about all these complications and patient refusal and my conversation with him regarding DNR and hospice.
Time spent over 50 minutes
Anticipated Discharge: > 48 hours
Subjective/Interval History
-
Date of Service: August 16, 2024
Objective Data
-
Labs:
Laboratory Results
08/16/24
05:49
WBC 18.8 H
Hgb 9.0 L
Hct 27.8 L
Plt Count 243
PT 29.7 H
INR 2.83
Sodium 138
Potassium 4.0
Chloride 99
Carbon Dioxide 31 H
BUN 25 H
Creatinine 4.0 H
Glucose 53 L*
Calcium 7.7 L
Total Bilirubin 1.0
AST 20
ALT < 10
Alkaline Phosphatase 139 H
Vital Signs:
Vital Signs
Temp Pulse Resp BP Pulse Ox
98.0 F 89 18 120/64 96
08/16/24 11:04 08/16/24 11:04 08/16/24 11:04 08/16/24 11:04 08/16/24 11:04
I&O
08/15/24 08/16/24 08/17/24
06:59 06:59 06:59
Intake Total 360 / 360 1440 / 1440
Output Total 0 / 0
Balance 360 / 360 1440 / 1440
[2024-08-16 15:22] VITALS: BP 117/59
--- NOTE | 2024-08-16 16:30 | W.PN.GI.CBS2 ---
Today's Communication / Plan
-
As per plan, care as patient will allow, currently refusing testing and some treatment,
Assessment / Plan
-
Pt is a 59yo with hx decompensated cirrhosis diagnosed 12/2023, ascites hx prior esophageal varices, prior SBP, prior GI bleeding, ASCVD, AFib (prior coumadin now on Eliquis), CHF, DM, neuropathy, spinal stenosis with chronic back and shoulder
pain, pleural effusion, pericardial effusion, frequent fall, ESRD on HD, neuropathy, GERD ? carrera's, c-diff, anxiety/depression with elevated INR 8.2 at SNF as recently noted flu and given tamiflu. In review of chart last [facility] eval was
in February. Her has followed in past with [facility] and [facility] and was advised follow up at [facility] and pt unable to state if follow up was completed. Per prior noted Etiology of cirrhiosis ? MASH/ ? ETOH with former ETOH use, no formal
serology work up at [facility] except hep B/C neg with hep B immunity. Asked to see for abdominal distention, nausea, and vomiting. He has been seen by colorectal surgery as abdominal imaging with severe air distention of cecum and proximal colon
and large amount of stool in rectum. He was recommended MOM enema and CT and was declining some interventions. He also admits to diarrhea at time bu noted with large stool in rectum on imaging. On admission patient is noted with multiple labs
abnormalities with WBC up to 14,100, hbg 10.2 with drop to 8.8, INR 8.2 Outpatient then 6.81 on admission, K 5.9, BUN 61, creat 5-8 range (on chronic HD).
-elevated INR on admission
-cirrhosis - MASH vs ETOH
-abdominal pain
-gastric distention on abd film
-nausea
-recurrent ascites
-diarrhea with concern increased stool burden on imaging on admission
-mild change in mental status
-anemia
-recent flu +
- hx several GI bleeds
-HTN on admission
-PAF (Coumadin prior to admission now on Eliquis)
other med problems:
NIDDM
ESRD on HD
HFpEF
Barretts esophagus
pleural effusion
hx pericardicentesis
spinal stenosis
-C-diff
-hx constipation
PLAN:
Etiology of abdominal pain related to moderate stool still seen in colon, SBP, ileus vs other
pt also with decompensated cirrhosis MELD -- limited with recent elevated INR with coumadin use and HD
concern as pt recommend multiple intervention -- para, enema, CT and declining--
flu positive s/p Tamiflu
sister is aware he likely is not a candidate for renal transplant (prior on transplant list) and would not want to proceed with liver transplant evaluation
cont to hold carafate with constipation
Patient requires paracentesis and CT Abd/Pelvis, patient declined today. States he will have done on
On Lactulose TID, refused dose this am
Patient now DNR
Subjective
Subjective
Date of Service: August 16, 2024
Patient passing flatus and BM. He states that he refused paracentesis and CT scan today because 'I did not feel up to it', he states that ' I have dialysis M-W- so I will get it on '. Continues on Lactulose TID. Patient last dose last
evening as he refused this am.
Objective
Data Reviewed
Laboratory Data:
Laboratory Results
08/16/24 05:49
08/16/24 05:49
Laboratory Results
PT 29.7 Sec (11.4-14.6) H 08/16/24 05:49
INR 2.83 08/16/24 05:49
Magnesium Cancelled 08/14/24 06:00
Total Bilirubin 1.0 mg/dl (0.2-1.3) 08/16/24 05:49
AST 20 U/L (17-59) 08/16/24 05:49
ALT < 10 U/L (0-50) 08/16/24 05:49
Alkaline Phosphatase 139 U/L (38-126) H 08/16/24 05:49
Vital Signs and I&O:
Vital Signs
Temp Pulse Resp BP Pulse Ox
97.8 F 83 17 117/59 96
08/16/24 15:22 08/16/24 15:22 08/16/24 15:22 08/16/24 15:22 08/16/24 15:22
I&O
08/15/24 08/16/24 08/17/24
06:59 06:59 06:59
Intake Total 360 / 360 1440 / 1440
Output Total 0 / 0
Balance 360 / 360 1440 / 1440
Physical Exam
Physical Exam
HEENT: Other (dry)
Cardiology: Normal Sinus Rhythm
Pulmonary: Clear (anterior)
GI: Soft, Distended (softly), Non Tender and Normal Bowel Sounds
Neuro: Non Focal and Other (patient with wasting and appears chronically ill)
[2024-08-16 17:23] LABS: Glucose - Point of Care 181 mg/dl (70-99)
[2024-08-16 19:00] VITALS: BP 126/63
[2024-08-16] MEDS: LIPITOR 80 MG PO (21:02)
[2024-08-16] MEDS: COREG 6.25 MG PO (21:02)
[2024-08-16 23:00] VITALS: BP 122/63
[2024-08-16 23:49] LABS: Glucose - Point of Care 174 mg/dl (70-99)
[2024-08-17] MEDS: ZOSYN 50 IV ×3 (00:08→15:17)
[2024-08-17] MEDS: NOVOLOG FLEXPEN-LOW RESISTANCE 1 UNITS SC (00:09)
[2024-08-17 03:00] VITALS: BP 127/64
[2024-08-17 05:55] LABS: Glucose - Point of Care 139 mg/dl (70-99)
[2024-08-17 06:00] VITALS: BMI 19.5
[2024-08-17] MEDS: NOVOLOG FLEXPEN-LOW RESISTANCE SC ×3 (06:19→17:25)
[2024-08-17 07:29] VITALS: BP 144/73
[2024-08-17] MEDS: PROTONIX 40 MG PO ×2 (08:17→20:29)
[2024-08-17] MEDS: COREG 6.25 MG PO ×2 (08:17→20:26)
[2024-08-17] MEDS: ZOLOFT 50 MG PO (08:17)
[2024-08-17] MEDS: DUPHALAC/CHRONULAC PO ×3 (08:24→21:31)
[2024-08-17] MEDS: RENVELA PO ×2 (08:25→12:25)
[2024-08-17] MEDS: NEPHROCAP 1 CAPSULE PO (08:27)
[2024-08-17] MEDS: D10W 1000 IV (09:19)
--- NOTE | 2024-08-17 09:57 | W.PN.HOSP.TC ---
Today's Communication/Plan
-
HD today
further w/u tomorrow IF pt agrees
hospice appropriate IF he decides to do nothing further
Assessment / Plan
Assessment / Plan
59-year-old male sent to ER to be dialyzed through the fistula secondary to elevated INR.
08/14/24 [id number] 7:49 PM-severe distention of the cecum and proximal colon. Large amount of fecal material in the rectum. Mild small bowel distention. Severe calcific atherosclerotic plaque in the abdominal aorta and common iliac arteries.
Diffuse bone demineralization. Large bilateral lower lobe consolidations.
08/15/2024-x-ray of the chest-bilateral pneumonia right greater than left
08/15/2024-x-ray of the abdomen-mild small bowel dilatation probably ileus improved. Moderate gastric distention progressed
# Nausea and vomiting--pt refusing all workup until
X-ray was resulted late yesterday with distention
Colorectal surgery consulted
Both colorectal surgery and I tried to convince the patient to get CAT scan of the abdomen pelvis he is refusing. He is aware about complications of obstruction including rupture.
Keep n.p.o.
For to place NG tube with esophageal varices
Ordered an enema-patient refused that
GI consulted
# Hypoglycemia-start D10
# Cirrhosis with ascites-ultrasound showed ascites. Paracentesis ordered. Patient refusing
# Bilateral pneumonia-started Zosyn. speech evaluation when not n.p.o. anymore.
# Abnormal looking EKG-negative troponin
# Supratherapeutic INR 6.8on admission
Vitamin K 10 mg in er
Stopped Coumadin and started Eliquis 08/14/2024, but placed Eliquis on hold on 08/16/2024
# Hyperkalemia-Resolved
# Recent influenza infection
Received 75 mg twice daily of Tamiflu for 3 days. Stopped further doses
End end-stage renal disease hemodialysis Thursday
Continue sevelamer
Nephrology for dialysis
# Paroxysmal atrial fibrillation- Eliquis placed on hold today because of elevated INR
# Prolonged QTc-watch on telemetry
# Coronary artery disease with history of stents-continue statin, Coreg
# Hypertension-continue clonidine, carvedilol with parameters , Hold Hydralazine and nifedipine
# Hyperlipidemia-continue statin
# Diabetes-With [id number]-[id number] and sliding scale coverage
# History of esophageal varices and portal gastropathy/GERD/hiatal hernia-continue Carafate and Protonix
# Anemia of chronic disease
# Chronic pain with opiate dependence due to spinal stenosis-continue fentanyl
# Peripheral artery disease with history of femoropopliteal bypass
# Depression-continue sertraline
# History of C. difficile
# Underweight
# History of migraines
# Hypoalbuminemia
# Ex-smoker
# DVT prophylaxis-elevated INR. Hold Eliquis
# DNR
D/W RN at bed side
D/W Nephrology and GI
Dr. Butt had Detailed discussion with the patient with nursing at bedside. He is refusing to get an enema, get a CAT scan, get paracentesis. States that he is too tired and he will do all this on . We discussed that he said the same
thing yesterday that he would do it today. He stated that he does want to get it done under . Tomorrow's dialysis day. CODE STATUS was addressed and he wants to be a DNR. Complications such as sepsis or even was discussed with the
patient. He stated that' then it will be a good thing'. At this point I brought up hospice, he stated that he does not want to discuss about hospice at this point.
Dr. Butt updated the sister about all these complications and patient refusal and my conversation with him regarding DNR and hospice.
Anticipated Discharge: > 48 hours
Subjective/Interval History
-
Date of Service: August 17, 2024
pt c/o pain--won't do any testing until tomorrow
Objective Data
-
Labs:
Laboratory Results
08/17/24
07:00
WBC Pending
Hgb Pending
Hct Pending
Plt Count Pending
Sodium Pending
Potassium Pending
Chloride Pending
Carbon Dioxide Pending
Vital Signs:
max temp for 24 hours
08/17/24
03:00
Temp 99.3 F
Vital Signs
Temp Pulse Resp BP Pulse Ox
99.6 F 83 17 144/73 96
08/17/24 07:29 08/17/24 08:17 08/17/24 07:29 08/17/24 08:17 08/17/24 07:29
I&O
08/16/24 08/17/24 08/18/24
06:59 06:59 06:59
Intake Total 1440 / 1440
Output Total 0 / 0
Balance 1440 / 1440
Review of Systems
-
All other systems: Reviewed and negative
Abdomen/GI: Reports Abdominal Pain
Physical Exam
-
General: Appears Chronically Ill and Cachectic
HEENT: Normocephalic and Atraumatic
Respiratory: Clear to Auscultation; Negative Wheezes or Rhonchi
Cardiac: Regular Rhythm and S1/S2; Negative Murmur
GI: Soft, Normal Bowel Sounds, Tender and Distended
Musculoskeletal: No Clubbing, No Cyanosis, No Edema and Other (muscle atrophy/wasting)
Neuro: Awake
[2024-08-17 11:16] VITALS: BP 141/65
[2024-08-17 11:35] LABS: Glucose - Point of Care 132 mg/dl (70-99)
--- NOTE | 2024-08-17 12:30 | W.PN.GI.CBS2 ---
Addendum entered and electronically signed by Derek Juárez MD 08/17/24 13:41:
I saw and examined the patient.
The POST CLOSER or PA's note was reviewed and I agree with the note.
Comment:
Pt w/o complaints, states he will agree for CT/paracentesis tomorrow
alert, oriented
impression
cirrhosis
ascites
abdominal pain
plan:
CT tomorrow
paracentesis tomorrow
pt now DNR
abdominal pain improved
Original Note:
Today's Communication / Plan
-
Etiology of abdominal pain related to moderate stool still seen in colon, SBP, ileus vs other
pt states some improved abdominal pain and asking to for diet
he still declines CT, para and some doses of lactulose but states will try to do CT tomorrow
mental status variable as takes some lactulose and per family lethargic with HD -- cont to monitor -- currently more awake than 2 days ago
will try to advance diet and monitor
for HD this afternoon
08/15 I spoke and updated sister see prior note- now DNR continue goals of care if pt continued to decline testing
cont to hold carafate as may be adding to constipation issue
cont rx per medical team for c/o cough
cont rx hypoglycemia -trend hbg with slight drop during admission
Assessment / Plan
-
Pt is a 59yo with hx decompensated cirrhosis diagnosed 12/2023, ascites hx prior esophageal varices, prior SBP, prior GI bleeding, ASCVD, AFib (prior coumadin now on Eliquis), CHF, DM, neuropathy, spinal stenosis with chronic back and shoulder
pain, pleural effusion, pericardial effusion, frequent fall, ESRD on HD, neuropathy, GERD ? carrera's, c-diff, anxiety/depression with elevated INR 8.2 at SNF as recently noted flu and given tamiflu. In review of chart last [facility] eval was
in February. Her has followed in past with [place] and was advised follow up at [facility] and pt unable to state if follow up was completed. Per prior noted Etiology of cirrhiosis ? MASH/ ? ETOH with former ETOH use, no formal
serology work up at [facility] except hep B/C neg with hep B immunity. Asked to see for abdominal distention, nausea, and vomiting. He has been seen by colorectal surgery as abdominal imaging with severe air distention of cecum and proximal colon
and large amount of stool in rectum. He was recommended MOM enema and CT and was declining some interventions. He also admits to diarrhea at time bu noted with large stool in rectum on imaging. On admission patient is noted with multiple labs
abnormalities with WBC up to 14,100, hbg 10.2 with drop to 8.8, INR 8.2 Outpatient then 6.81 on admission, K 5.9, BUN 61, creat 5-8 range (on chronic HD).
-elevated INR on admission
-cirrhosis - MASH vs ETOH
-abdominal pain
-gastric distention on abd film
-nausea
-recurrent ascites
-diarrhea with concern increased stool burden on imaging on admission
-mild change in mental status
-anemia
-recent flu +
- hx several GI bleeds
-HTN on admission
-PAF (Coumadin prior to admission now on Eliquis)
other med problems:
NIDDM
ESRD on HD
HFpEF
Barretts esophagus
pleural effusion
hx pericardicentesis
spinal stenosis
-C-diff
-hx constipation
PLAN:
Etiology of abdominal pain related to moderate stool still seen in colon, SBP, ileus vs other
pt states some improved abdominal pain and asking to for diet
he still declines CT, para and some doses of lactulose but states will try to do CT tomorrow
mental status variable as takes some lactulose and per family lethargic with HD -- cont to monitor -- currently more awake than 2 days ago
will try to advance diet and monitor
for HD this afternoon
08/15 I spoke and updated sister see prior note- now DNR continue goals of care if pt continued to decline testing
cont to hold carafate as may be adding to constipation issue
cont rx per medical team for c/o cough
Subjective
Subjective
Date of Service: August 17, 2024
several stools over last few days NPO, states some improved abdominal pain but complaints of chronic back pain and cough -- more awake then 2 days ago
Objective
Data Reviewed
Laboratory Data:
Laboratory Results
PT 29.7 Sec (11.4-14.6) H 08/16/24 05:49
INR 2.83 08/16/24 05:49
Magnesium Cancelled 08/14/24 06:00
Total Bilirubin 1.0 mg/dl (0.2-1.3) 08/16/24 05:49
AST 20 U/L (17-59) 08/16/24 05:49
ALT < 10 U/L (0-50) 08/16/24 05:49
Alkaline Phosphatase 139 U/L (38-126) H 08/16/24 05:49
Vital Signs and I&O:
Vital Signs
Temp Pulse Resp BP Pulse Ox
99.6 F 84 19 141/65 95
08/17/24 11:16 08/17/24 11:16 08/17/24 11:16 08/17/24 11:16 08/17/24 11:16
I&O
08/16/24 08/17/24 08/18/24
06:59 06:59 06:59
Intake Total 1440 / 1440
Output Total 0 / 0
Balance 1440 / 1440
Physical Exam
Physical Exam
HEENT: Anicteric
Cardiology: Normal Sinus Rhythm
Pulmonary: Other (decreased bases and cough )
GI: Soft, Distended and Tender (minimal )
Extremities: No Edema and Other (thin extremities )
Neuro: Non Focal
[2024-08-17 12:39] LABS: Hematocrit 24.5 % (39.0-52.0); Mean Corp Hgb Conc. 32.7 g/dL (33.0-37.0); Mean Corpuscular Hgb 29.9 pg (27.0-31.0); Mean Corpuscular Volume 91.4 fL (80.0-94.0); Mean Platelet Volume 9.7 fL (7.4-10.4); Platelet Count 229 10^3/uL (130-400); Red Blood Cell Count 2.68 10^6/uL (4.70-6.10); Red Cell Dist. Width 14.5 % (11.5-14.5)
--- NOTE | 2024-08-17 13:02 | W.PN.NEPH.HD ---
Assessment
-
Patient seen on dialysis
Systolic blood pressure low at current UF
Progress Note - Hemodialysis
-
Date of Service: August 17, 2024
Duration: 30 minutes and 3 hours
Potassium Bath: 2
Calcium Bath: 2.5
Opti-Dialyzer: 160
Ultrafiltration: Other (~2kg)
Blood Flow: 400
Dialysate Flow: 600
Heparin: none
EPO: 6000
[2024-08-17 13:28] LABS: Carbon Dioxide 30 mmol/L (22-30); Chloride 94 mmol/L (98-107); Potassium 4.1 mmol/L (3.5-5.1); Sodium 131 mmol/L (135-145)
[2024-08-17] MEDS: FLEXBUMIN 25% FOR HEMODIALYSIS 12.5 GRAMS IV ×2 (13:56→14:44)
[2024-08-17] MEDS: RETACRIT 10000 UNITS IV (13:56)
[2024-08-17 15:08] VITALS: BP 116/64
[2024-08-17 16:42] LABS: Glucose - Point of Care 120 mg/dl (70-99)
--- NOTE | 2024-08-17 17:17 | PN.CDI ---
CDI
- -
CDI:
Physician Documentation Request
Admit Date: 08/12/24 17:31
Dear Doctor Josefina,
Clinical Indicators:
Patient admitted with supratherapeutic INR.
08/15 PN, 'Bilateral pneumonia-start Zosyn.'
WBC
08/16/24
05:49
WBC 18.8 H
Temp:
08/15/24
22:50
Temp 101.7 F H
HR trend:
08/15/24
19:00 08/15/24
20:59 08/15/24
22:45
Pulse 96 96 105
Please clarify which of the following most accurately describes the status of the patient's infection:
Sepsis
- Systemic manifestations of infection, with 2 or more SIRS criteria which include:
- Fever >100.4 degrees F or hypothermia < 96.8 degrees F
- Leukocytosis - WBC > 12,000 or leukopenia - WBC < 4,000 or > 10% bands
- Tachycardia > 90 beats per minute
- Tachypnea - RR > 20 breaths per minute or PaCO2 , 32mmHg
Source: Merck Manual 2013
Pneumonia Only, Without Systemic Illness
Other
Use of terms such as suspected, likely, concern for, or probable (associated with a specific diagnosis that is being evaluated, monitored, or treated as if it exists) are acceptable and can be coded in the inpatient setting, when documented at the
time of discharge.
Thank you,
HALEY Harding RN
CDI Specialist
available via tiger text
Please use your independent medical judgment in providing your response.
[2024-08-17] MEDS: RENVELA 1600 MG PO (17:45)
[2024-08-17 19:00] VITALS: BP 156/71
[2024-08-17 21:35] LABS: Glucose - Point of Care 184 mg/dl (70-99)
[2024-08-17] MEDS: LIPITOR 80 MG PO (22:09)
[2024-08-17 23:00] VITALS: BP 164/80
[2024-08-18] MEDS: ZOSYN 50 IV ×3 (00:31→16:05)
[2024-08-18 06:00] VITALS: BMI 19.3
[2024-08-18 07:22] VITALS: BP 156/69
[2024-08-18] MEDS: RENVELA 1600 MG PO ×2 (08:00→16:04)
[2024-08-18] MEDS: NEPHROCAP 1 CAPSULE PO (08:00)
[2024-08-18] MEDS: PROTONIX 40 MG PO ×2 (08:00→21:32)
[2024-08-18] MEDS: ZOLOFT 50 MG PO (08:00)
[2024-08-18] MEDS: COREG 6.25 MG PO ×2 (08:01→21:32)
[2024-08-18] MEDS: DUPHALAC/CHRONULAC 20 GRAMS PO (08:01)
[2024-08-18 08:03] LABS: Glucose - Point of Care 140 mg/dl (70-99)
[2024-08-18] MEDS: NOVOLOG FLEXPEN-LOW RESISTANCE SC ×3 (08:05→16:56)
[2024-08-18 08:07] LABS: Hematocrit 26.4 % (39.0-52.0); Hemoglobin 8.6 g/dL (13.0-18.0); Mean Corp Hgb Conc. 32.6 g/dL (33.0-37.0); Mean Corpuscular Hgb 29.9 pg (27.0-31.0); Mean Corpuscular Volume 91.7 fL (80.0-94.0); Mean Platelet Volume 9.9 fL (7.4-10.4); Platelet Count 214 10^3/uL (130-400); Red Blood Cell Count 2.88 10^6/uL (4.70-6.10); Red Cell Dist. Width 14.4 % (11.5-14.5); White Blood Cell Count 9.1 10^3/uL (4.8-10.8)
[2024-08-18] MEDS: OMNIPAQUE 50 ML PO (08:30)
[2024-08-18 08:40] LABS: ALT (SGPT) 10 U/L (0-50); AST (SGOT) 21 U/L (17-59); Albumin 2.1 g/dl (3.5-5.0); Alkaline Phosphatase 147 U/L (38-126); Blood Urea Nitrogen 18 mg/dl (9-20); Calcium 7.6 mg/dl (8.4-10.2); Carbon Dioxide 30 mmol/L (22-30); Chloride 95 mmol/L (98-107); Estimated Creatinine Clearance 22 ml/min; Glucose 142 mg/dl (70-99); Magnesium 1.8 mg/dl (1.6-2.3); Potassium 3.7 mmol/L (3.5-5.1); Sodium 135 mmol/L (135-145); Total Protein 5.5 g/dl (6.3-8.2); eGFR 21.34
[2024-08-18] MEDS: CATAPRES-TTS-3 0.3 MG TRANSDERM (09:56)
[2024-08-18 11:25] LABS: INR 2.72; PT 29.3 Sec (11.4-14.6)
[2024-08-18 12:00] VITALS: BMI 19.3
--- NOTE | 2024-08-18 12:00 | W.PN.HOSP.TC ---
Addendum entered and electronically signed by Lazaro Hwang DO 08/18/24 12:35:
CDI: Pneumonia only, without systemic illness
Original Note:
Today's Communication/Plan
-
Paracentesis today
CT A/P
Stool studies
Hold Eliquis
Ongoing GOC
Assessment / Plan
Assessment / Plan
#Nausea and vomiting
#Concern for ileus
X-ray was resulted late yesterday with distention, repeat x-ray improved
Colorectal surgery consulted
Amenable to having CT A/P performed today
Keep n.p.o.
For to place NG tube with esophageal varices
Ordered an enema-patient refused that
GI consulted
#Hypoglycemia
c/w D10 IVF
#Bilateral pneumonia
Currently stable on room air
started Zosyn, plan for 7-day course of antibiotic
Speech and swallow evaluation
#Cirrhosis with ascites and esophageal varices
#Ascites
ultrasound showed ascites.
Paracentesis ordered.
Patient amenable, as of 08/18, for paracentesis
Follow-up fluid studies and culture
#Abnormal looking EKG
negative troponin
#Supratherapeutic INR 6.8on admission
Vitamin K 10 mg in er
INR down to 2.72
Plan to resume Eliquis after procedures, when CBC stable
# Recent influenza infection
Received 75 mg twice daily of Tamiflu for 3 days. Stopped further doses
#End end-stage renal disease hemodialysis Thursday
Continue sevelamer
Nephrology for dialysis
#Paroxysmal atrial fibrillation
-Eliquis placed on hold today because of elevated INR
#Prolonged QTc
watch on telemetry
#Coronary artery disease with history of stents
#HLD
continue statin, Coreg
#Hypertension
continue clonidine, carvedilol with parameters ,
Hold Hydralazine and nifedipine
#Diabetes c/b neuropathy
Accu-Cheks and sliding scale coverage
#H/O esophageal varices and portal gastropathy/GERD/hiatal hernia
continue Carafate and Protonix
#Anemia of chronic disease
#Chronic pain with opiate dependence due to spinal stenosis
continue fentanyl
#Peripheral artery disease with history of femoropopliteal bypass
#Depression
continue sertraline
#History of C. difficile
#Underweight
#History of migraines
#Hypoalbuminemia
#Ex-smoker
DVT prophylaxis-elevated INR. Hold Eliquis
DNR
Discussed with interventional radiology
Anticipated Discharge: > 48 hours
Subjective/Interval History
-
Date of Service: August 18, 2024
Seen and examined at the bedside. No acute events overnight. AFVSS this morning
Hemoglobin stable in the range of 8-9.0. INR down to 2.72. Albumin 2.1.
Patient is complaining of persistent diarrhea
Objective Data
-
Labs:
Laboratory Results
08/18/24 08/18/24
06:38 10:53
WBC 9.1
Hgb 8.6 L
Hct 26.4 L
Plt Count 214
PT 29.3 H
INR 2.72
Sodium 135
Potassium 3.7
Chloride 95 L
Carbon Dioxide 30
BUN 18
Creatinine 3.2 H
Glucose 142 H
Calcium 7.6 L
Total Bilirubin 1.0
AST 21
ALT 10
Alkaline Phosphatase 147 H
Vital Signs:
Vital Signs
Temp Pulse Resp BP Pulse Ox
98.2 F 80 17 147/70 97
08/18/24 07:22 08/18/24 09:56 08/18/24 07:22 08/18/24 09:56 08/18/24 07:22
Review of Systems
-
History Source: Patient
All other systems: Reviewed and negative
Physical Exam
-
General: Well Developed, Appears Chronically Ill and Cachectic
HEENT: Normocephalic, Atraumatic, Moist Mucous Membranes and Anicteric
Respiratory: Clear to Auscultation and Non Labored Respirations; Negative Accessory Resp Muscle Use
Cardiac: Regular Rhythm and S1/S2; Negative Murmur, Rub, JVD or Gallop
GI: Soft, Nontender, Normal Bowel Sounds and Distended (With positive fluid wave)
Musculoskeletal: No Clubbing, No Cyanosis and No Edema
Skin: Warm, Dry and Normal Turgor; Negative Rash
Neuro: AO x 3 and Nonfocal/Grossly Intact; Negative Tremors
Psych: Agitated
Data Reviewed
-
Labs: Labs Reviewed by me, Discussed with Physician (Interventional radiology) and Discussed with Patient
--- NOTE | 2024-08-18 12:20 | PN.CDI ---
CDI
- -
CDI:
Physician Documentation Request
Admit Date: 08/12/24 17:31
Dear Doctor Jaiden,
Clinical Indicators:
Patient admitted with supratherapeutic INR.
08/16 PN, 'Bilateral pneumonia-start Zosyn.'
WBC
08/16/24
05:49
WBC 18.8 H
Temp:
08/15/24
22:50
Temp 101.7 F H
HR trend:
08/15/24
19:00 08/15/24
20:59 08/15/24
22:45
Pulse 96 96 105
Please clarify which of the following most accurately describes the status of the patient's infection:
Sepsis
- Systemic manifestations of infection, with 2 or more SIRS criteria which include:
- Fever >100.4 degrees F or hypothermia < 96.8 degrees F
- Leukocytosis - WBC > 12,000 or leukopenia - WBC < 4,000 or > 10% bands
- Tachycardia > 90 beats per minute
- Tachypnea - RR > 20 breaths per minute or PaCO2 , 32mmHg
Source: Merck Manual 2013
Pneumonia Only, Without Systemic Illness
Other
Use of terms such as suspected, likely, concern for, or probable (associated with a specific diagnosis that is being evaluated, monitored, or treated as if it exists) are acceptable and can be coded in the inpatient setting, when documented at the
time of discharge.
Thank you,
HALEY Harding RN
CDI Specialist
available via tiger text
Please use your independent medical judgment in providing your response.
[2024-08-18 12:59] LABS: Glucose - Point of Care 130 mg/dl (70-99)
[2024-08-18] MEDS: RENVELA PO (13:51)
--- NOTE | 2024-08-18 14:26 | W.PN.GI.CBS2 ---
Today's Communication / Plan
-
await paracentesis
check c. diff
Assessment / Plan
-
Pt is a 59yo with hx decompensated cirrhosis diagnosed 12/2023, ascites hx prior esophageal varices, prior SBP, prior GI bleeding, ASCVD, AFib (prior coumadin now on Eliquis), CHF, DM, neuropathy, spinal stenosis with chronic back and shoulder
pain, pleural effusion, pericardial effusion, frequent fall, ESRD on HD, neuropathy, GERD ? carrera's, c-diff, anxiety/depression with elevated INR 8.2 at SNF as recently noted flu and given tamiflu. In review of chart last [place] [facility] eval was
in February. Her has followed in past with [facility] and [facility] and was advised follow up at [facility] and pt unable to state if follow up was completed. Per prior noted Etiology of cirrhiosis ? MASH/ ? ETOH with former ETOH use, no formal
serology work up at [place] except hep B/C neg with hep B immunity. Asked to see for abdominal distention, nausea, and vomiting. He has been seen by colorectal surgery as abdominal imaging with severe air distention of cecum and proximal colon
and large amount of stool in rectum. He was recommended MOM enema and CT and was declining some interventions. He also admits to diarrhea at time bu noted with large stool in rectum on imaging. On admission patient is noted with multiple labs
abnormalities with WBC up to 14,100, hbg 10.2 with drop to 8.8, INR 8.2 Outpatient then 6.81 on admission, K 5.9, BUN 61, creat 5-8 range (on chronic HD).
-elevated INR on admission
-cirrhosis - MASH vs ETOH
-abdominal pain
-gastric distention on abd film
-nausea
-recurrent ascites
-diarrhea with concern increased stool burden on imaging on admission
-mild change in mental status
-anemia
-recent flu +
- hx several GI bleeds
-HTN on admission
-PAF (Coumadin prior to admission now on Eliquis)
other med problems:
NIDDM
ESRD on HD
HFpEF
Barretts esophagus
pleural effusion
hx pericardicentesis
spinal stenosis
-C-diff
-hx constipation
constipation and abdominal pain now loose stool and improved pain with CT showing left sided colitis and ascites.
- likely not true colitis but can check c. diff
- for paracentesis today
- continue other measures
Subjective
Subjective
Date of Service: August 18, 2024
Pt with improved abd pain, loose stool noted but on lactulose
Objective
Data Reviewed
Laboratory Data:
Laboratory Results
08/18/24 06:38
08/18/24 06:38
Laboratory Results
PT 29.3 Sec (11.4-14.6) H 08/18/24 10:53
INR 2.72 08/18/24 10:53
Magnesium 1.8 mg/dl (1.6-2.3) 08/18/24 06:38
Total Bilirubin 1.0 mg/dl (0.2-1.3) 08/18/24 06:38
AST 21 U/L (17-59) 08/18/24 06:38
ALT 10 U/L (0-50) 08/18/24 06:38
Alkaline Phosphatase 147 U/L (38-126) H 08/18/24 06:38
Vital Signs and I&O:
Vital Signs
Temp Pulse Resp BP Pulse Ox
98.2 F 80 17 147/70 97
08/18/24 07:22 08/18/24 09:56 08/18/24 07:22 08/18/24 09:56 08/18/24 07:22
Physical Exam
Physical Exam
GI: Other (ascites)
Neuro: Non Focal (oriented)
--- NOTE | 2024-08-18 14:35 | PTOTSP ---
Speech Therapy Assessment
Increased risk for dysphagia and aspiration in setting of deconditioned state, acute illness and sub-optimal positioning. However, swallows appeared well coordinated without persistent signs of aspiration. One episode of coughing on cracker,
otherwise no overt signs of aspiration.
Recommend
1. Continue Regular solids and thin liquids.
2. Meds as tolerated
3. HOB as close to 95 degrees as able.
4. Consider Dietary Consult
5. ST will follow and if respiratory status worsens or consistent coughing with meals noted, would then recommend VSE.
[2024-08-18 15:31] VITALS: BP 151/62
--- NOTE | 2024-08-18 16:02 | W.PN.NEPH.PH ---
Today's Communication / Plan
-
Dialysis tomorrow
Assessment/Plan
-
Impression:
Influenza
Coagulopathy with INR of 6.8 (in setting of advanced liver disease)/Coumadin administration
h/o GIB /portal gastropathy
Multi drug hypertension
Recurrent ascites
ESRD on hemodialysis at [facility], previously TTS [facility]
Anemia of ESRD
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
Paroxysmal Atrial Fibrillation
Chronic HFpEF
History of bilateral pleural effusions status post thoracentesis
History of pericardial effusion status post pericardiocentesis
Coronary artery disease
Essential hypertension
DM2 with multiple microvascular complications
Hyperlipidemia
Spinal stenosis
Anxiety/depression
L radial AVF
Plan:
Checking for C. difficile given ongoing diarrhea
CT scan with IV contrast reviewed notable for left sided colitis, large volume ascites and PNA bilaterally
HD tomorrow
Maintain phos binders with meals for hyperphosphatemia
Maintain current antihypertensives in setting of hypertension
Fluid restriction of 1500 cc daily low-sodium low potassium diet
Continue Eliquis
-
-
Date of Service: August 18, 2024
CC / HPI / ROS
-
Chief Complaint:
ESRD
History of Present Illness:
ESRD Thursdayday Thursday [facility] dialysis unit
Tolerated dialysis yesterday
Hemodynamically stable
Anemia stable on JAIME
Refusing paracentesis and CT today
Review of Systems:
Significant malaise and abdominal discomfort
Diarrhea
No fevers
Labs
-
Labs:
WBC 9.1 10^3/uL (4.8-10.8) 08/18/24 06:38
RBC 2.88 10^6/uL (4.70-6.10) L 08/18/24 06:38
Hgb 8.6 g/dL (13.0-18.0) L 08/18/24 06:38
Hct 26.4 % (39.0-52.0) L 08/18/24 06:38
Plt Count 214 10^3/uL (130-400) 08/18/24 06:38
Sodium 135 mmol/L (135-145) 08/18/24 06:38
Potassium 3.7 mmol/L (3.5-5.1) 08/18/24 06:38
Chloride 95 mmol/L (98-107) L 08/18/24 06:38
Carbon Dioxide 30 mmol/L (22-30) 08/18/24 06:38
BUN 18 mg/dl (9-20) 08/18/24 06:38
Creatinine 3.2 mg/dL (0.7-1.3) H 08/18/24 06:38
eGFR 21.34 08/18/24 06:38
Glucose 142 mg/dl (70-99) H 08/18/24 06:38
Calcium 7.6 mg/dl (8.4-10.2) L 08/18/24 06:38
Albumin 2.1 g/dl (3.5-5.0) L 08/18/24 06:38
Physical Exam
-
Vital Signs:
Vital Signs
Temp Pulse Resp BP Pulse Ox
98.0 F 70 18 151/62 96
08/18/24 15:31 08/18/24 15:31 08/18/24 15:31 08/18/24 15:31 08/18/24 15:31
Cardiovascular:: Regular rate and rhythm
Respiratory:: Bilateral: Coarse
Lung Excursion:: Normal
Abdomen:: Distended, Soft and Tender
Bowel Sounds:: Decreased
Extremity Edema:: None: Bilateral:
Alfred Catheter: No
[2024-08-18] MEDS: DUPHALAC/CHRONULAC PO ×2 (16:04→21:32)
--- NOTE | 2024-08-18 16:09 | CM ---
CM following for discharge planning. 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 HURL SHAKER he required (A) for all care.
CM confirmed with LP liaison that pt was admitted to 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
D/C plan: return back to [facility] for a penitentiary care.
CM will follow for discharge plan updates as hospitalization progresses
[facility] Report: [phone]
[facility]
[2024-08-18 16:53] LABS: Glucose - Point of Care 175 mg/dl (70-99)
[2024-08-18] MEDS: DURAGESIC 12 MCG/HR PATCH 1 PATCH TRANSDERM (19:49)
[2024-08-18 21:19] LABS: Glucose - Point of Care 218 mg/dl (70-99)
[2024-08-18] MEDS: LIPITOR 80 MG PO (21:32)
[2024-08-18 23:00] VITALS: BP 164/73
[2024-08-19] MEDS: ZOSYN 50 IV ×3 (00:14→23:54)
[2024-08-19 06:00] VITALS: BMI 18.5
[2024-08-19 08:00] VITALS: BP 154/79
[2024-08-19 08:27] LABS: Glucose - Point of Care 99 mg/dl (70-99)
[2024-08-19 08:52] LABS: % Basophils 0.4 % (0-2); % Eosinophils 1.5 % (0-6); % Immature Granulocytes 0.9 % (0-0.5); % Lymphocytes 7.8 % (20.5-51.1); % Monocytes 6.2 % (1.7-9.3); % Neutrophils 83.2 % (42.2-75.2); Absolute Eosinophils 0.1 10^3/uL (0-0.7); Absolute Immature Granulocytes 0.1 10^3/uL (0-0.05); Absolute Lymphocytes 0.6 10^3/uL (1.2-3.4); Absolute Monocytes 0.5 10^3/uL (0.1-0.6); Absolute Neutrophils 6.8 10^3/uL (1.4-6.5); Hematocrit 27.9 % (39.0-52.0); Hemoglobin 9.1 g/dL (13.0-18.0); Mean Corp Hgb Conc. 32.6 g/dL (33.0-37.0); Mean Corpuscular Hgb 29.7 pg (27.0-31.0); Mean Corpuscular Volume 91.2 fL (80.0-94.0); Mean Platelet Volume 10.4 fL (7.4-10.4); Nucleated Red Blood Cells % 0 % (-); Platelet Count 184 10^3/uL (130-400); Red Blood Cell Count 3.06 10^6/uL (4.70-6.10); Red Cell Dist. Width 14.4 % (11.5-14.5); White Blood Cell Count 8.2 10^3/uL (4.8-10.8)
[2024-08-19 09:02] LABS: INR 2.85; PT 29.8 Sec (11.4-14.6)
[2024-08-19] MEDS: NOVOLOG FLEXPEN-LOW RESISTANCE SC ×3 (09:09→18:15)
[2024-08-19] MEDS: PROTONIX 40 MG PO ×2 (09:10→21:36)
[2024-08-19] MEDS: DUPHALAC/CHRONULAC PO ×3 (09:16→21:27)
[2024-08-19] MEDS: RENVELA 1600 MG PO ×2 (09:16→18:14)
[2024-08-19] MEDS: RETACRIT 8000 UNITS IV (09:16)
--- NOTE | 2024-08-19 11:10 | W.PN.NEPH.HD ---
Assessment
-
Seen on dialysis tolerating treatment blood pressure stable
Progress Note - Hemodialysis
-
Date of Service: August 19, 2024
Duration: 30 minutes and 3 hours
Potassium Bath: 2
Calcium Bath: 2.5
Opti-Dialyzer: 160
Ultrafiltration: Other (~2kg)
Blood Flow: 400
Dialysate Flow: 600
Heparin: none
EPO: 6000
[2024-08-19 11:23] LABS: ALT (SGPT) 11 U/L (0-50); AST (SGOT) 21 U/L (17-59); Albumin 2.1 g/dl (3.5-5.0); Alkaline Phosphatase 148 U/L (38-126); Blood Urea Nitrogen 24 mg/dl (9-20); Calcium 7.7 mg/dl (8.4-10.2); Carbon Dioxide 27 mmol/L (22-30); Chloride 96 mmol/L (98-107); Estimated Creatinine Clearance 17 ml/min; Glucose 105 mg/dl (70-99); Sodium 134 mmol/L (135-145); Total Protein 5.6 g/dl (6.3-8.2); eGFR 15.85
--- NOTE | 2024-08-19 11:42 | PTCARENOTE ---
patient's creatinine level 4.[address] Marcano made aware, receiving hemodialysis, will continue to monitor.
--- NOTE | 2024-08-19 12:09 | W.PN.HOSP.TC ---
Today's Communication/Plan
-
Continue IV Zosyn
Follow stool cultures
Aspiration precautions
Paracentesis when INR at goal
Hold Eliquis until procedures complete
Consider resuming nifedipine
Assessment / Plan
Assessment / Plan
#Left-sided colitis
#Concern for ileus
Patient with diarrhea, nausea and vomiting; initial x-ray with distention of bowel loops, repeat improved
CT A/P with contrast and oral contrast on 08/18 showed signs of left-sided colitis, no obstruction
C. difficile test negative, stool cultures currently pending
Remains on IV Zosyn for colitis and pneumonia
Continue to monitor CBC, temperature
Colorectal surgery and GI following
Symptomatically improved as of 08/19
Monitor bowel status on Zosyn
Follow-up stool culture
Consider holding lactulose if recurrent
#Bilateral pneumonia
Currently stable on room air without signs of respiratory distress
started Zosyn, plan for at least 7-day course of antibiotic
Evaluated by ANTIQUER, on aspiration precautions and regular consistency diet
#Cirrhosis with ascites and esophageal varices
#Ascites
Home medications include carvedilol for varices prophylaxis
ultrasound showed ascites.
Paracentesis ordered.
Patient amenable, as of 08/18, for paracentesis
Will likely need INR to be <2.5 prior to paracentesis
Follow-up fluid studies and culture
#Supratherapeutic INR
6.8 on admission, Vitamin K 10 mg in ER
INR down to 2.8 as of 08/19
Plan to resume Eliquis after procedures, when CBC stable
#Hypertension
continue clonidine, carvedilol with parameters ,
Nifedipine and hydralazine were held
Blood pressure as of 08/19/2024 154/79 mmHg
Plan to resume nifedipine if blood pressure remains elevated
# Recent influenza infection
Received 75 mg twice daily of Tamiflu for 3 days. Stopped further doses
#End end-stage renal disease hemodialysis
HD schedule Thursday/Thursday/Thursday
Continue sevelamer
Nephrology for dialysis
#Paroxysmal atrial fibrillation
Eliquis placed on hold today because of elevated INR
Remains on carvedilol for rate control
#Prolonged QTc
watch on telemetry
#Coronary artery disease with history of stents
#HLD
continue statin, Coreg
#Diabetes c/b neuropathy
Accu-Cheks and sliding scale coverage
#H/O esophageal varices and portal gastropathy/GERD/hiatal hernia
continue Carafate and Protonix
#Anemia of chronic disease
#Chronic pain with opiate dependence due to spinal stenosis
continue fentanyl
#Peripheral artery disease with history of femoropopliteal bypass
#Depression
continue sertraline
#History of C. difficile
#Underweight
#History of migraines
#Hypoalbuminemia
#Ex-smoker
DVT prophylaxis-elevated INR. Hold Eliquis
DNR
Discussed with interventional radiology
Anticipated Discharge: > 48 hours
Subjective/Interval History
-
Date of Service: August 19, 2024
Seen and examined at the bedside. No acute events reported overnight. AFVSS this morning
INR remains elevated at 2.85 off of AC. Albumin 2.1. Hemoglobin stable
Patient states his diarrhea seems improved as of this morning. Denies any other new complaints, was tired at time of HD
Objective Data
-
Labs:
Laboratory Results
08/19/24 08/19/24
08:36 08:37
WBC 8.2
Hgb 9.1 L
Hct 27.9 L
Plt Count 184
PT 29.8 H
INR 2.85
Sodium 134 L
Potassium 4.0
Chloride 96 L
Carbon Dioxide 27
BUN 24 H
Creatinine 4.1 H*
Glucose 105 H
Calcium 7.7 L
Total Bilirubin 1.0
AST 21
ALT 11
Alkaline Phosphatase 148 H
Vital Signs:
Vital Signs
Temp Pulse Resp BP Pulse Ox
98.8 F 76 18 154/79 97
08/19/24 08:00 08/19/24 08:00 08/19/24 08:00 08/19/24 08:00 08/19/24 08:00
I&O
08/18/24 08/19/24 08/20/24
06:59 06:59 06:59
Intake Total 580 / 580
Balance 580 / 580
Review of Systems
-
History Source: Patient
All other systems: Reviewed and negative
Physical Exam
-
General: Well Developed, No Apparent Distress, Appears Chronically Ill and Cachectic
HEENT: Normocephalic, Atraumatic, Moist Mucous Membranes and Anicteric
Respiratory: Clear to Auscultation and Non Labored Respirations; Negative Accessory Resp Muscle Use
Cardiac: Regular Rhythm and S1/S2; Negative Murmur, Rub or Gallop
GI: Soft, Nontender, Nondistended and Normal Bowel Sounds
Musculoskeletal: No Clubbing, No Cyanosis and No Edema
Skin: Warm, Dry and Normal Turgor; Negative Rash
Neuro: AO x 3 and Nonfocal/Grossly Intact; Negative Tremors
Psych: Calm
Data Reviewed
-
Labs: Labs Reviewed by me, Discussed with Physician (IR) and Discussed with Patient
[2024-08-19 12:25] LABS: Glucose - Point of Care 98 mg/dl (70-99)
[2024-08-19] MEDS: NEPHROCAP 1 CAPSULE PO (12:36)
[2024-08-19] MEDS: COREG 6.25 MG PO ×2 (12:36→21:36)
[2024-08-19] MEDS: ZOLOFT 50 MG PO (12:36)
--- NOTE | 2024-08-19 12:44 | W.PN.GI.CBS2 ---
Today's Communication / Plan
-
Paracentesis, keep bowel movements 2 to 3-day
Disposition planning
Discussed with hospitalist
Assessment / Plan
-
Pt is a 59yo with hx decompensated cirrhosis diagnosed 12/2023, ascites hx prior esophageal varices, prior SBP, prior GI bleeding, ASCVD, AFib (prior coumadin now on Eliquis), CHF, DM, neuropathy, spinal stenosis with chronic back and shoulder
pain, pleural effusion, pericardial effusion, frequent fall, ESRD on HD, neuropathy, GERD ? carrera's, c-diff, anxiety/depression with elevated INR 8.2 at SNF as recently noted flu and given tamiflu. In review of chart last [place] [facility] eval was
in February. Her has followed in past with Dedra and Liam and was advised follow up at [facility] and pt unable to state if follow up was completed. Per prior noted Etiology of cirrhiosis ? MASH/ ? ETOH with former ETOH use, no formal
serology work up at [place] except hep B/C neg with hep B immunity. Asked to see for abdominal distention, nausea, and vomiting. He has been seen by colorectal surgery as abdominal imaging with severe air distention of cecum and proximal colon
and large amount of stool in rectum. He was recommended MOM enema and CT and was declining some interventions. He also admits to diarrhea at time bu noted with large stool in rectum on imaging. On admission patient is noted with multiple labs
abnormalities with WBC up to 14,100, hbg 10.2 with drop to 8.8, INR 8.2 Outpatient then 6.81 on admission, K 5.9, BUN 61, creat 5-8 range (on chronic HD).
-elevated INR on admission
-cirrhosis - MASH vs ETOH
-abdominal pain
-gastric distention on abd film
-nausea
-recurrent ascites
-diarrhea with concern increased stool burden on imaging on admission
-mild change in mental status
-anemia
-recent flu +
- hx several GI bleeds
-HTN on admission
-PAF (Coumadin prior to admission now on Eliquis)
other med problems:
NIDDM
ESRD on HD
HFpEF
Barretts esophagus
pleural effusion
hx pericardicentesis
spinal stenosis
-C-diff
-hx constipation
constipation and abdominal pain now loose stool and improved pain with CT showing left sided colitis and ascites.
- likely not true colitis but can check c. diff
- for paracentesis
- continue other measures
08/19/24: productive cough on antibiotics. refusing paracentesis today as he feels exhausted after hemodialysis
Okay for paracentesis despite INR since he is cirrhotic it will be elevated. IR did call for him and he refused
Patient's bowel movements are much better and he is having soft brown stools
- patient is cachectic, clearly malnourished and not doing well
-He needs to get established with hepatology and determine if he is an actual transplant candidate
- If he is not amendable to this, hospice would be appropriate
Subjective
Subjective
Date of Service: August 19, 2024
Patient says he feels weak after dialysis. Is having a productive cough. Denies any nausea or vomiting. Now having more formed bowel movements but refusing lactulose
Objective
Data Reviewed
Laboratory Data:
Laboratory Results
08/19/24 08:36
08/19/24 08:36
Laboratory Results
PT 29.8 Sec (11.4-14.6) H 08/19/24 08:37
INR 2.85 08/19/24 08:37
Magnesium 1.8 mg/dl (1.6-2.3) 08/18/24 06:38
Total Bilirubin 1.0 mg/dl (0.2-1.3) 08/19/24 08:36
AST 21 U/L (17-59) 08/19/24 08:36
ALT 11 U/L (0-50) 08/19/24 08:36
Alkaline Phosphatase 148 U/L (38-126) H 08/19/24 08:36
Vital Signs and I&O:
Vital Signs
Temp Pulse Resp BP Pulse Ox
98.8 F 76 18 154/79 97
08/19/24 08:00 08/19/24 08:00 08/19/24 08:00 08/19/24 08:00 08/19/24 08:00
I&O
08/18/24 08/19/24 08/20/24
06:59 06:59 06:59
Intake Total 580 / 580
Balance 580 / 580
Physical Exam
Physical Exam
HEENT: Anicteric
Pulmonary: Other (+productive cough)
GI: Soft, Non Distended and Fluid Wave
Extremities: Other (thin, cachetic male)
no asterixis
--- NOTE | 2024-08-19 12:52 | W.PN.UPDATE ---
Update Note
Progress Note Update
We received request for paracentesis on this patient last Thursday. At that time, his INR was supratherapeutic and it could not be performed. By Thursday his INR was in range to perform paracentesis but patient refused the procedure. We have tried to
call him down multiple times this week and each time he has refused. We called him down this afternoon again after lunch and he is still refusing. We can attempt to perform on Thursday if he is agreeable and still an inpatient but this will not be
done over the weekend.
--- NOTE | 2024-08-19 12:56 | PTCARENOTE ---
patient refusing paracentesis, he did yesterday as well. Dr. Smith, IR Department, Dr. Thakkar and Dr. Marcano made aware. IR verbalized that paracentesis would not be done until early next week due to their schedule. Dr. Thakkar spoke to patient in
length and he verbalized, 'I'm too tired from dialysis, not today!'. Also, he has refused Lactulose today, stools decreased, poor intake, refusing turns at times and for b/l heels to be elevated off bed, refused for me to look at buttocks/sacrum.
tolerated hemodialysis, vss, will continue to monitor.
[2024-08-19] MEDS: RENVELA PO (13:15)
[2024-08-19 14:59] VITALS: BMI 18.5
[2024-08-19 16:30] VITALS: BP 151/74
[2024-08-19 17:45] LABS: Glucose - Point of Care 156 mg/dl (70-99)
[2024-08-19] MEDS: ZOSYN IV (18:18)
[2024-08-19 21:34] LABS: Glucose - Point of Care 157 mg/dl (70-99)
[2024-08-19] MEDS: ROXICODONE 5 MG PO (21:35)
[2024-08-19] MEDS: LIPITOR 80 MG PO (21:36)
[2024-08-19 23:00] VITALS: BP 144/72
[2024-08-19] MEDS: TIGAN 100 MG IM (23:04)
[2024-08-20 06:00] VITALS: BMI 18.9
[2024-08-20 07:00] VITALS: BP 152/64
[2024-08-20] MEDS: ZOLOFT 50 MG PO (08:21)
[2024-08-20] MEDS: COREG 6.25 MG PO ×2 (08:21→22:03)
[2024-08-20] MEDS: NEPHROCAP 1 CAPSULE PO (08:22)
[2024-08-20] MEDS: PROTONIX 40 MG PO ×2 (08:22→22:02)
[2024-08-20 08:24] LABS: Glucose - Point of Care 151 mg/dl (70-99)
[2024-08-20] MEDS: ZOSYN 50 IV ×3 (08:26→23:16)
[2024-08-20] MEDS: DUPHALAC/CHRONULAC PO (08:28)
[2024-08-20] MEDS: NOVOLOG FLEXPEN-LOW RESISTANCE 1 UNITS SC ×2 (10:04→17:37)
[2024-08-20] MEDS: RENVELA 1600 MG PO ×2 (10:04→17:36)
[2024-08-20 10:38] LABS: INR 2.54; PT 27.4 Sec (11.4-14.6)
[2024-08-20 10:53] LABS: % Basophils 0.3 % (0-2); % Immature Granulocytes 0.5 % (0-0.5); % Lymphocytes 7.4 % (20.5-51.1); % Neutrophils 84.8 % (42.2-75.2); Absolute Eosinophils 0.1 10^3/uL (0-0.7); Absolute Lymphocytes 0.6 10^3/uL (1.2-3.4); Absolute Monocytes 0.5 10^3/uL (0.1-0.6); Absolute Neutrophils 6.6 10^3/uL (1.4-6.5); Hematocrit 30.3 % (39.0-52.0); Hemoglobin 9.5 g/dL (13.0-18.0); Mean Corp Hgb Conc. 31.4 g/dL (33.0-37.0); Mean Corpuscular Hgb 29.1 pg (27.0-31.0); Mean Corpuscular Volume 92.7 fL (80.0-94.0); Mean Platelet Volume 11.1 fL (7.4-10.4); Nucleated Red Blood Cells % 0 % (-); Platelet Count 174 10^3/uL (130-400); Red Blood Cell Count 3.27 10^6/uL (4.70-6.10); Red Cell Dist. Width 14.4 % (11.5-14.5); White Blood Cell Count 7.8 10^3/uL (4.8-10.8)
[2024-08-20 11:28] LABS: ALT (SGPT) < 10 U/L (0-50); AST (SGOT) 19 U/L (17-59); Albumin 2.3 g/dl (3.5-5.0); Alkaline Phosphatase 147 U/L (38-126); Blood Urea Nitrogen 16 mg/dl (9-20); Carbon Dioxide 33 mmol/L (22-30); Chloride 96 mmol/L (98-107); Estimated Creatinine Clearance 22 ml/min; Glucose 179 mg/dl (70-99); Potassium 3.9 mmol/L (3.5-5.1); Sodium 137 mmol/L (135-145); Total Bilirubin 1.2 mg/dl (0.2-1.3); Total Protein 5.8 g/dl (6.3-8.2); eGFR 22.17
[2024-08-20 11:43] LABS: Glucose - Point of Care 238 mg/dl (70-99)
--- NOTE | 2024-08-20 12:33 | W.PN.GI.CBS2 ---
Today's Communication / Plan
-
-- nothing to add today, stop lactulose
Assessment / Plan
-
Pt is a 59yo with hx decompensated cirrhosis diagnosed 12/2023, ascites hx prior esophageal varices, prior SBP, prior GI bleeding, ASCVD, AFib (prior coumadin now on Eliquis), CHF, DM, neuropathy, spinal stenosis with chronic back and shoulder
pain, pleural effusion, pericardial effusion, frequent fall, ESRD on HD, neuropathy, GERD ? carrera's, c-diff, anxiety/depression with elevated INR 8.2 at SNF as recently noted flu and given tamiflu. In review of chart last [place] GI eval was
in February. Her has followed in past with Dedra and Liam and was advised follow up at [facility] and pt unable to state if follow up was completed. Per prior noted Etiology of cirrhiosis ? MASH/ ? ETOH with former ETOH use, no formal
serology work up at [place] except hep B/C neg with hep B immunity. Asked to see for abdominal distention, nausea, and vomiting. He has been seen by colorectal surgery as abdominal imaging with severe air distention of cecum and proximal colon
and large amount of stool in rectum. He was recommended MOM enema and CT and was declining some interventions. He also admits to diarrhea at time bu noted with large stool in rectum on imaging. On admission patient is noted with multiple labs
abnormalities with WBC up to 14,100, hbg 10.2 with drop to 8.8, INR 8.2 Outpatient then 6.81 on admission, K 5.9, BUN 61, creat 5-8 range (on chronic HD).
-elevated INR on admission
-cirrhosis - MASH vs ETOH
-abdominal pain
-gastric distention on abd film
-nausea
-recurrent ascites
-diarrhea with concern increased stool burden on imaging on admission
-mild change in mental status
-anemia
-recent flu +
- hx several GI bleeds
-HTN on admission
-PAF (Coumadin prior to admission now on Eliquis)
other med problems:
NIDDM
ESRD on HD
HFpEF
Barretts esophagus
pleural effusion
hx pericardicentesis
spinal stenosis
-C-diff
-hx constipation
constipation and abdominal pain now loose stool and improved pain with CT showing left sided colitis and ascites.
- likely not true colitis but can check c. diff
- for paracentesis
- continue other measures
08/19/24: productive cough on antibiotics. refusing paracentesis today as he feels exhausted after hemodialysis
Okay for paracentesis despite INR since he is cirrhotic it will be elevated. IR did call for him and he refused
Patient's bowel movements are much better and he is having soft brown stools
- patient is cachectic, clearly malnourished and not doing well
-He needs to get established with hepatology and determine if he is an actual transplant candidate
- If he is not amendable to this, hospice would be appropriate
08/20/2024 - having significant BMs without lactulose
-- CT shows thickening of the left colon
-- on antibiotics for pneumonia
-- awaiting paracentesis
-- did a deep dive - unclear etiology for cirrhosis - things that don't fit: normal plts and normal liver on imaging - not nodular or shrunken
Has history of esophageal varices
Needs paracentesis - check total protein, SAAG, cytology, added an adenosine deaminase to look for TB
mildly dilated IVC on ECHO from Apr - but no significant back up from valvular disease or CHF
potentially from renal disease
-- potentially flex sig or colonoscopy if diarrhea doesn't improve
Subjective
Subjective
Date of Service: August 20, 2024
having multiple BMs without lactulose
Objective
Data Reviewed
Laboratory Data:
Laboratory Results
08/20/24 10:18
08/20/24 10:18
Laboratory Results
PT 27.4 Sec (11.4-14.6) H 08/20/24 10:18
INR 2.54 08/20/24 10:18
Magnesium 1.8 mg/dl (1.6-2.3) 08/18/24 06:38
Total Bilirubin 1.2 mg/dl (0.2-1.3) 08/20/24 10:18
AST 19 U/L (17-59) 08/20/24 10:18
ALT < 10 U/L (0-50) 08/20/24 10:18
Alkaline Phosphatase 147 U/L (38-126) H 08/20/24 10:18
Vital Signs and I&O:
Vital Signs
Temp Pulse Resp BP Pulse Ox
97.7 F 69 16 152/64 94
08/20/24 07:00 08/20/24 08:21 08/20/24 07:00 08/20/24 08:21 08/20/24 11:34
I&O
08/19/24 08/20/24 08/21/24
06:59 06:59 06:59
Intake Total 580 / 580 1150 / 1150
Balance 580 / 580 1150 / 1150
Physical Exam
Physical Exam
HEENT: Anicteric
GI: Soft, Distended and Fluid Wave
Neuro: Non Focal
--- NOTE | 2024-08-20 12:40 | W.PN.HOSP.TC ---
Today's Communication/Plan
-
Continue IV Zosyn
Paracentesis when amenable
Hold Eliquis
Hold lactulose
Trend INR
Assessment / Plan
Assessment / Plan
#Left-sided colitis
#Concern for ileus (less concerned now)
#Diarrhea
Patient with diarrhea, nausea and vomiting; initial x-ray with distention of bowel loops, repeat improved
CT A/P with contrast and oral contrast on 08/18 showed signs of left-sided colitis, no obstruction
C. difficile test negative, stool cultures were negative as well
Has been refusing lactulose, diarrhea despite this, possibly from antibiotics as well
Remains on IV Zosyn for colitis and pneumonia
Continue to monitor CBC, temperature
Colorectal surgery and GI following
Symptomatically improved as of 08/19
Monitor bowel status on Zosyn
Hold lactulose for now
Monitor CBC
#Bilateral pneumonia
Currently stable on room air without signs of respiratory distress
started Zosyn, plan for at least 7-day course of antibiotic
Evaluated by PERFORMANCE TEST CONSULTANT, on aspiration precautions and regular consistency diet
#Cirrhosis with ascites and esophageal varices
#Ascites
Home medications include carvedilol for varices prophylaxis
ultrasound showed ascites.
Paracentesis ordered.
Plan for paracentesis when patient amenable
Follow-up fluid studies and culture
#Supratherapeutic INR
6.8 on admission, Vitamin K 10 mg in ER
INR down to 2.8 as of 08/19
Plan to resume Eliquis after procedures, when CBC stable
#Hypertension
continue clonidine, carvedilol with parameters ,
Nifedipine and hydralazine were held
Blood pressure as of 08/19/2024 154/79 mmHg
Resumed nifedipine 30 mg morning 08/20
# Recent influenza infection
Received 75 mg twice daily of Tamiflu for 3 days. Stopped further doses
#End end-stage renal disease hemodialysis
HD schedule Thursday/Thursday/Thursday
Continue sevelamer
Nephrology for dialysis
#Paroxysmal atrial fibrillation
Eliquis placed on hold today because of elevated INR
Remains on carvedilol for rate control
#Prolonged QTc
watch on telemetry
#Coronary artery disease with history of stents
#HLD
continue statin, Coreg
#Diabetes c/b neuropathy
Accu-Cheks and sliding scale coverage
#H/O esophageal varices and portal gastropathy/GERD/hiatal hernia
continue Carafate and Protonix
#Anemia of chronic disease
#Chronic pain with opiate dependence due to spinal stenosis
continue fentanyl
#Peripheral artery disease with history of femoropopliteal bypass
#Depression
continue sertraline
#History of C. difficile
#Underweight
#History of migraines
#Hypoalbuminemia
#Ex-smoker
DVT prophylaxis-elevated INR. Hold Eliquis
DNR
Anticipated Discharge: > 48 hours
Subjective/Interval History
-
Date of Service: August 20, 2024
Seen and examined at the bedside. No acute events reported overnight. AFVSS this morning
Labs are stable with INR 2.54. Continues to have episodes of diarrhea, has been refusing his lactulose.
Denies any other new complaints as of this morning
Objective Data
-
Labs:
Laboratory Results
08/20/24
10:18
WBC 7.8
Hgb 9.5 L
Hct 30.3 L
Plt Count 174
PT 27.4 H
INR 2.54
Sodium 137
Potassium 3.9
Chloride 96 L
Carbon Dioxide 33 H
BUN 16
Creatinine 3.1 H
Glucose 179 H
Calcium 8.0 L
Total Bilirubin 1.2
AST 19
ALT < 10
Alkaline Phosphatase 147 H
Vital Signs:
Vital Signs
Temp Pulse Resp BP Pulse Ox
97.7 F 69 16 152/64 94
08/20/24 07:00 08/20/24 08:21 08/20/24 07:00 08/20/24 08:21 08/20/24 11:34
I&O
08/19/24 08/20/24 08/21/24
06:59 06:59 06:59
Intake Total 580 / 580 1150 / 1150
Balance 580 / 580 1150 / 1150
Review of Systems
-
History Source: Patient
All other systems: Reviewed and negative
Physical Exam
-
General: Well Developed, No Apparent Distress, Appears Chronically Ill and Cachectic
HEENT: Normocephalic, Atraumatic, Moist Mucous Membranes and Anicteric
Respiratory: Clear to Auscultation and Non Labored Respirations
Cardiac: Regular Rhythm and S1/S2; Negative Murmur, Rub or Gallop
GI: Soft, Normal Bowel Sounds, Tender (LLQ, no peritoneal signs) and Distended ((+) fluid wave)
Musculoskeletal: No Clubbing, No Cyanosis and No Edema
Skin: Warm and Dry; Negative Rash or Normal Turgor
Neuro: AO x 3 and Nonfocal/Grossly Intact; Negative Tremors
Psych: Calm
Data Reviewed
-
Labs: Labs Reviewed by me, Discussed with Physician (GI) and Discussed with Patient
--- NOTE | 2024-08-20 13:32 | W.PN.NEPH.PH ---
Today's Communication / Plan
-
Dialysis Thursday dialysis Thursday
Assessment/Plan
-
Impression:
Influenza
Coagulopathy with INR of 6.8 (in setting of advanced liver disease)/Coumadin administration
h/o GIB /portal gastropathy
Multi drug hypertension
Recurrent ascites
ESRD on hemodialysis at [facility], previously [facility]
Anemia of ESRD
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
Paroxysmal Atrial Fibrillation
Chronic HFpEF
History of bilateral pleural effusions status post thoracentesis
History of pericardial effusion status post pericardiocentesis
Coronary artery disease
Essential hypertension
DM2 with multiple microvascular complications
Hyperlipidemia
Spinal stenosis
Anxiety/depression
L radial AVF
Plan:
C. difficile negative
CT scan with IV contrast reviewed notable for left sided colitis, large volume ascites and PNA bilaterally
Maintain phos binders with meals for hyperphosphatemia
Maintain current antihypertensives in setting of hypertension
Fluid restriction of 1500 cc daily low-sodium low potassium diet
Continue Eliquis
-
-
Date of Service: August 20, 2024
CC / HPI / ROS
-
Chief Complaint:
ESRD
History of Present Illness:
ESRD Thursday [facility] dialysis unit
Tolerated dialysis yesterday
Hemodynamically stable
Anemia stable on JAIME
Refusing paracentesis and CT today
Review of Systems:
Significant malaise and abdominal discomfort
Diarrhea
No fevers
Labs
-
Labs:
WBC 7.8 10^3/uL (4.8-10.8) 08/20/24 10:18
RBC 3.27 10^6/uL (4.70-6.10) L 08/20/24 10:18
Hgb 9.5 g/dL (13.0-18.0) L 08/20/24 10:18
Hct 30.3 % (39.0-52.0) L 08/20/24 10:18
Plt Count 174 10^3/uL (130-400) 08/20/24 10:18
Sodium 137 mmol/L (135-145) 08/20/24 10:18
Potassium 3.9 mmol/L (3.5-5.1) 08/20/24 10:18
Chloride 96 mmol/L (98-107) L 08/20/24 10:18
Carbon Dioxide 33 mmol/L (22-30) H 08/20/24 10:18
BUN 16 mg/dl (9-20) 08/20/24 10:18
Creatinine 3.1 mg/dL (0.7-1.3) H 08/20/24 10:18
eGFR 22.17 08/20/24 10:18
Glucose 179 mg/dl (70-99) H 08/20/24 10:18
Calcium 8.0 mg/dl (8.4-10.2) L 08/20/24 10:18
Albumin 2.3 g/dl (3.5-5.0) L 08/20/24 10:18
Physical Exam
-
Vital Signs:
Vital Signs
Temp Pulse Resp BP Pulse Ox
97.7 F 69 16 152/64 94
08/20/24 07:00 08/20/24 08:21 08/20/24 07:00 08/20/24 08:21 08/20/24 11:34
Cardiovascular:: Regular rate and rhythm
Respiratory:: Bilateral: Coarse
Lung Excursion:: Normal
Abdomen:: Distended, Soft and Tender
Bowel Sounds:: Decreased
Extremity Edema:: None: Bilateral:
Alfred Catheter: No
[2024-08-20 15:00] VITALS: BP 156/82
[2024-08-20] MEDS: NOVOLOG FLEXPEN-LOW RESISTANCE SC (16:01)
[2024-08-20] MEDS: RENVELA PO (16:02)
[2024-08-20 17:13] LABS: Glucose - Point of Care 150 mg/dl (70-99)
[2024-08-20 21:29] LABS: Glucose - Point of Care 277 mg/dl (70-99)
[2024-08-20] MEDS: ZOFRAN 4 MG IV (21:52)
[2024-08-20] MEDS: PROCARDIA XL (EXTENDED RELEASE) 30 MG PO (21:53)
[2024-08-20 22:00] VITALS: BP 165/80
[2024-08-20] MEDS: LIPITOR 80 MG PO (22:02)
[2024-08-21 06:00] VITALS: BMI 19.3
[2024-08-21 07:00] VITALS: BP 97/51
[2024-08-21 07:39] LABS: ALT (SGPT) < 10 U/L (0-50); AST (SGOT) 16 U/L (17-59); Albumin 2.1 g/dl (3.5-5.0); Alkaline Phosphatase 131 U/L (38-126); Blood Urea Nitrogen 20 mg/dl (9-20); Calcium 7.6 mg/dl (8.4-10.2); Carbon Dioxide 33 mmol/L (22-30); Chloride 95 mmol/L (98-107); Estimated Creatinine Clearance 17 ml/min; Glucose 151 mg/dl (70-99); Potassium 4.1 mmol/L (3.5-5.1); Sodium 137 mmol/L (135-145); Total Bilirubin 0.8 mg/dl (0.2-1.3); Total Protein 5.8 g/dl (6.3-8.2); eGFR 15.85
[2024-08-21 08:03] LABS: % Basophils 0.5 % (0-2); % Eosinophils 1.7 % (0-6); % Immature Granulocytes 0.8 % (0-0.5); % Monocytes 5.6 % (1.7-9.3); % Neutrophils 81.4 % (42.2-75.2); Absolute Eosinophils 0.1 10^3/uL (0-0.7); Absolute Immature Granulocytes 0.1 10^3/uL (0-0.05); Absolute Lymphocytes 0.7 10^3/uL (1.2-3.4); Absolute Monocytes 0.4 10^3/uL (0.1-0.6); Absolute Neutrophils 5.4 10^3/uL (1.4-6.5); Hematocrit 27.4 % (39.0-52.0); Hemoglobin 8.5 g/dL (13.0-18.0); Mean Corpuscular Volume 93.5 fL (80.0-94.0); Mean Platelet Volume 11.5 fL (7.4-10.4); Nucleated Red Blood Cells % 0 % (-); Platelet Count 170 10^3/uL (130-400); Red Blood Cell Count 2.93 10^6/uL (4.70-6.10); Red Cell Dist. Width 14.5 % (11.5-14.5); White Blood Cell Count 6.6 10^3/uL (4.8-10.8)
[2024-08-21 08:10] LABS: Glucose - Point of Care 183 mg/dl (70-99)
[2024-08-21] MEDS: ZOSYN 50 IV ×3 (08:50→23:43)
[2024-08-21] MEDS: NEPHROCAP 1 CAPSULE PO (08:57)
[2024-08-21] MEDS: PROTONIX 40 MG PO (08:57)
[2024-08-21] MEDS: RENVELA 1600 MG PO ×3 (08:57→17:35)
[2024-08-21] MEDS: ZOLOFT 50 MG PO (08:57)
[2024-08-21] MEDS: NOVOLOG FLEXPEN-LOW RESISTANCE 1 UNITS SC (08:59)
[2024-08-21] MEDS: COREG PO (09:00)
[2024-08-21] MEDS: PROCARDIA XL (EXTENDED RELEASE) PO (09:01)
[2024-08-21] MEDS: TYLENOL 650 MG PO ×2 (09:12→16:01)
[2024-08-21 10:11] LABS: INR 2.67; PT 28.4 Sec (11.4-14.6)
[2024-08-21 12:07] LABS: Glucose - Point of Care 236 mg/dl (70-99)
[2024-08-21] MEDS: NOVOLOG FLEXPEN-LOW RESISTANCE 2 UNITS SC ×2 (13:29→17:31)
--- NOTE | 2024-08-21 13:32 | W.PN.NEPH.PH ---
Today's Communication / Plan
-
No acute need for dialysis today next even Thursday
Assessment/Plan
-
Impression:
Influenza
Coagulopathy with INR of 6.8 (in setting of advanced liver disease)/Coumadin administration
h/o GIB /portal gastropathy
Multi drug hypertension
Recurrent ascites
ESRD on hemodialysis at [facility], previously [facility] [employer] [facility]
Anemia of ESRD
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
Paroxysmal Atrial Fibrillation
Chronic HFpEF
History of bilateral pleural effusions status post thoracentesis
History of pericardial effusion status post pericardiocentesis
Coronary artery disease
Essential hypertension
DM2 with multiple microvascular complications
Hyperlipidemia
Spinal stenosis
Anxiety/depression
L radial AVF
Plan:
C. difficile negative
CT scan with IV contrast reviewed notable for left sided colitis, large volume ascites and PNA bilaterally
Maintain phos binders with meals for hyperphosphatemia
Maintain current antihypertensives in setting of hypertension
Fluid restriction of 1500 cc daily low-sodium low potassium diet
Dialysis Thursday
Pending paracentesis
-
-
Date of Service: August 21, 2024
CC / HPI / ROS
-
Chief Complaint:
ESRD
History of Present Illness:
ESRD Thursdayday Thursday [facility] dialysis unit
Hemodynamically stable
Anemia stable on JAIME
Refusing paracentesis
Review of Systems:
No shortness of breath
No fevers
Labs
-
Labs:
WBC 6.6 10^3/uL (4.8-10.8) 08/21/24 06:26
RBC 2.93 10^6/uL (4.70-6.10) L 08/21/24 06:26
Hgb 8.5 g/dL (13.0-18.0) L 08/21/24 06:26
Hct 27.4 % (39.0-52.0) L 08/21/24 06:26
Plt Count 170 10^3/uL (130-400) 08/21/24 06:26
Sodium 137 mmol/L (135-145) 08/21/24 06:26
Potassium 4.1 mmol/L (3.5-5.1) 08/21/24 06:
Chloride 95 mmol/L (98-107) L 08/21/24 06:26
Carbon Dioxide 33 mmol/L (22-30) H 08/21/24 06:26
BUN 20 mg/dl (9-20) 08/21/24 06:26
Creatinine 4.1 mg/dL (0.7-1.3) H* 08/21/24 06:
eGFR 15.85 08/21/24 06:
Glucose 151 mg/dl (70-99) H 08/21/24 06:26
Calcium 7.6 mg/dl (8.4-10.2) L 08/21/24 06:
Albumin 2.1 g/dl (3.5-5.0) L 08/21/24 06:26
Physical Exam
-
Vital Signs:
Vital Signs
Temp Pulse Resp BP Pulse Ox
98.2 F 62 17 97/51 98
08/21/24 07:00 08/21/24 09:01 08/21/24 07:00 08/21/24 09:01 08/21/24 07:00
Cardiovascular:: Regular rate and rhythm
Respiratory:: Bilateral: Coarse
Lung Excursion:: Normal
Abdomen:: Distended, Soft and Tender
Bowel Sounds:: Decreased
Extremity Edema:: None: Bilateral:
Alfred Catheter: No
--- NOTE | 2024-08-21 13:33 | W.PN.GI.CBS2 ---
Today's Communication / Plan
-
-- para tomorrow
-- vit k x 3 days
Assessment / Plan
-
Pt is a 59yo with hx decompensated cirrhosis?? diagnosed 12/2023, ascites hx prior very small (reviewed pics) esophageal varices, prior SBP, prior GI bleeding, ASCVD, AFib (prior coumadin now on Eliquis), CHF, DM, neuropathy, spinal stenosis with
chronic back and shoulder pain, pleural effusion, pericardial effusion, frequent fall, ESRD on HD, neuropathy, GERD ? carrera's, c-diff, anxiety/depression with elevated INR 8.2 at SNF as recently noted flu and given tamiflu. In review of chart
last [facility] [facility] eval was in February. Her has followed in past with Dedra and Liam and was advised follow up at [facility] and pt unable to state if follow up was completed. Per prior noted Etiology of cirrhiosis ? MASH/ ? ETOH with
former ETOH use, no formal serology work up at [place] except hep B/C neg with hep B immunity. Asked to see for abdominal distention, nausea, and vomiting. He has been seen by colorectal surgery as abdominal imaging with severe air distention
of cecum and proximal colon and large amount of stool in rectum. He was recommended MOM enema and CT and was declining some interventions. He also admits to diarrhea at time bu noted with large stool in rectum on imaging. On admission patient is
noted with multiple labs abnormalities with WBC up to 14,100, hbg 10.2 with drop to 8.8, INR 8.2 Outpatient then 6.81 on admission, K 5.9, BUN 61, creat 5-8 range (on chronic HD).
-- Walp is questioning the cirrhosis diagnosis and this may be nephrogenic ascites (see 08/21/24 for details)
-elevated INR on admission
-cirrhosis - MASH vs ETOH
-abdominal pain
-gastric distention on abd film
-nausea
-recurrent ascites
-diarrhea with concern increased stool burden on imaging on admission
-mild change in mental status
-anemia
-recent flu +
- hx several GI bleeds
-HTN on admission
-PAF (Coumadin prior to admission now on Eliquis)
other med problems:
NIDDM
ESRD on HD
HFpEF
Barretts esophagus
pleural effusion
hx pericardicentesis
spinal stenosis
-C-diff
-hx constipation
constipation and abdominal pain now loose stool and improved pain with CT showing left sided colitis and ascites.
- likely not true colitis but can check c. diff
- for paracentesis
- continue other measures
08/19/24: productive cough on antibiotics. refusing paracentesis today as he feels exhausted after hemodialysis
Okay for paracentesis despite INR since he is cirrhotic it will be elevated. IR did call for him and he refused
Patient's bowel movements are much better and he is having soft brown stools
- patient is cachectic, clearly malnourished and not doing well
-He needs to get established with hepatology and determine if he is an actual transplant candidate
- If he is not amendable to this, hospice would be appropriate
08/20/2024 - having significant BMs without lactulose
-- CT shows thickening of the left colon
-- on antibiotics for pneumonia
-- awaiting paracentesis
-- did a deep dive - unclear etiology for cirrhosis - things that don't fit: normal plts and normal liver on imaging - not nodular or shrunken
Has history of esophageal varices
Needs paracentesis - check total protein, SAAG, cytology, added an adenosine deaminase to look for TB
mildly dilated IVC on ECHO from Apr - but no significant back up from valvular disease or CHF
potentially from renal disease
-- potentially flex sig or colonoscopy if diarrhea doesn't improve
08/21/2024
-- no diarrhea today; hopefully done with antibiotics soon
Based on what I'm finding, I believe his ascites is may be actually nephrogenic ascites and not due to portal hypertension and cirrhosis. I'm reviewing his chart and cirrhosis doesn't fit. His plts are normal and his liver looks normal on imaging.
+ his total protein found in his ascitic fluid are all high which is either nephrogenic or cardiac and his right heart doesn't look that bad but does have pulmonary hypertension. He has never had a liver biopsy or a right heart cath to get an
actual diagnosis.
-- when we get his ascitic fluid need to make sure to get a total protein
-- very poor prognosis if this is nephrogenic ascites
-- we need to get the records from [facility] where he was worked up for his liver
-- need to work on nutrition as that is very important - low salt and low volume diet and may need increased frequency of dialysis
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 About one-third of patients develop cachexia
[3https://pmc.ncbi.nlm.nih.gov/articles/NSA7937883/#REF3,�10https://pmc.ncbi.nlm.nih.gov/articles/TTB1682381/#REF10]. Kidney transplantation is the only definitive treatment with a resulting resolution of ascites within six weeks of transplantation
in almost all patients
-- I'm going to give him 3 days of vit K to see if this is nutritional in the setting of his severe calorie malnutrition and cachexia
Subjective
Subjective
Date of Service: August 21, 2024
no further diarrhea
Objective
Data Reviewed
Laboratory Data:
Laboratory Results
08/21/24 06:26
08/21/24 06:26
Laboratory Results
PT 28.4 Sec (11.4-14.6) H 08/21/24 09:46
INR 2.67 08/21/24 09:46
Magnesium 1.8 mg/dl (1.6-2.3) 08/18/24 06:38
Total Bilirubin 0.8 mg/dl (0.2-1.3) 08/21/24 06:26
AST 16 U/L (17-59) L 08/21/24 06:26
ALT < 10 U/L (0-50) 08/21/24 06:26
Alkaline Phosphatase 131 U/L (38-126) H 08/21/24 06:26
Vital Signs and I&O:
Vital Signs
Temp Pulse Resp BP Pulse Ox
98.2 F 62 17 97/51 98
08/21/24 07:00 08/21/24 09:01 08/21/24 07:00 08/21/24 09:01 08/21/24 07:00
I&O
08/20/24 08/21/24 08/22/24
06:59 06:59 06:59
Intake Total 1150 / 1150 1680 / 1680
Balance 1150 / 1150 1680 / 1680
[2024-08-21] MEDS: MEPHYTON 2.5 MG PO (13:58)
--- NOTE | 2024-08-21 14:10 | W.PN.HOSP.TC ---
Today's Communication/Plan
-
Vitamin K for 3 days to see if INR improves
Plan for paracentesis on 08/22
Hold DOAC pending completion of procedure
Continue IV Zosyn until SBP ruled out
Hold lactulose and monitor diarrhea
Assessment / Plan
Assessment / Plan
#Left-sided colitis
#Concern for ileus (less concerned now)
#Diarrhea
Patient with diarrhea, nausea and vomiting; initial x-ray with distention of bowel loops, repeat improved
CT A/P with contrast and oral contrast on 08/18 showed signs of left-sided colitis, no obstruction
C. difficile test negative, stool cultures were negative as well
Has been refusing lactulose, diarrhea despite this, possibly from antibiotics as well
Remains on IV Zosyn for colitis and pneumonia
Continue to monitor CBC, temperature
Colorectal surgery and GI following
Symptomatically improved as of 08/19
Monitor bowel status on Zosyn
Hold lactulose for now
Monitor CBC
#Bilateral pneumonia
Currently stable on room air without signs of respiratory distress
started Zosyn, plan for at least 7-day course of antibiotic
Evaluated by TYPE SOLDERING MACHINE TENDER, on aspiration precautions and regular consistency diet
Continue IV Zosyn as above and monitor on room air
#Cirrhosis with ascites and esophageal varices
MELD-Na score 32
Per GI not convinced he has true liver cirrhosis as platelet count higher than expected, liver without nodular appearance
Home medications include carvedilol for varices prophylaxis, lactulose for history of HE (?)
ultrasound showed ascites, which may be related to liver cirrhosis versus ESRD
GI providing 3 days of vitamin K to assess for improvement
Paracentesis ordered.
#Ascites
Per GI there is some concern this may be nephrogenic ascites which has very high mortality risk
Plan for paracentesis when patient amenable
Follow-up fluid studies including total protein and culture
Continue IV Zosyn until SBP ruled out on paracentesis
#Supratherapeutic INR
Either secondary to cirrhosis or vitamin K deficiency with cachexia
6.8 on admission, Vitamin K 10 mg in ER
INR down to 2.8 as of 08/19
Plan to resume Eliquis after procedures, when CBC stable
GI providing 3 days of vitamin K starting 08/21 to see if INR improves
#Hypertension
continue clonidine, carvedilol with parameters ,
Nifedipine and hydralazine were held
Blood pressure as of 08/19/2024 154/79 mmHg
Resumed nifedipine 30 mg morning 08/20
#Recent influenza infection
Received 75 mg twice daily of Tamiflu for 3 days. Stopped further doses
#End end-stage renal disease hemodialysis
HD schedule Thursday/Thursday/Thursday
Continue sevelamer
Nephrology for dialysis
#Paroxysmal atrial fibrillation
Eliquis placed on hold today because of elevated INR
Remains on carvedilol for rate control
#Prolonged QTc
watch on telemetry
#Coronary artery disease with history of stents
#HLD
continue statin, Coreg
#Diabetes c/b neuropathy
Accu-Cheks and sliding scale coverage
#H/O esophageal varices and portal gastropathy/GERD/hiatal hernia
continue Carafate and Protonix
#Anemia of chronic disease
Trend CBC
#Chronic pain with opiate dependence due to spinal stenosis
continue fentanyl
#Peripheral artery disease with history of femoropopliteal bypass
Continue high intensity statin, resume DOAC after procedures
#Depression
continue sertraline
#History of C. difficile
#Underweight
#History of migraines
#Hypoalbuminemia
#Ex-smoker
DVT prophylaxis-elevated INR. Hold Eliquis
DNR
Anticipated Discharge: > 48 hours
Subjective/Interval History
-
Date of Service: August 21, 2024
Seen and examined at the bedside. No acute events reported overnight. AFVSS
Hemoglobin down from 9.5-8.5 though still near baseline. INR 2.67. GI raise concerns yesterday over nephrogenic ascites
As of this morning he states his diarrhea is improving, denies any new complaints.
Objective Data
-
Labs:
Laboratory Results
08/21/24 08/21/24
06:26 09:46
WBC 6.6
Hgb 8.5 L
Hct 27.4 L
Plt Count 170
PT 28.4 H
INR 2.67
Sodium 137
Potassium 4.1
Chloride 95 L
Carbon Dioxide 33 H
BUN 20
Creatinine 4.1 H*
Glucose 151 H
Calcium 7.6 L
Total Bilirubin 0.8
AST 16 L
ALT < 10
Alkaline Phosphatase 131 H
Vital Signs:
Vital Signs
Temp Pulse Resp BP Pulse Ox
98.2 F 62 17 97/51 98
08/21/24 07:00 08/21/24 09:01 08/21/24 07:00 08/21/24 09:01 08/21/24 07:00
I&O
08/20/24 08/21/24 08/22/24
06:59 06:59 06:59
Intake Total 1150 / 1150 1680 / 1680
Balance 1150 / 1150 1680 / 1680
Review of Systems
-
History Source: Patient
All other systems: Reviewed and negative
Physical Exam
-
General: Well Developed, No Apparent Distress, Appears Chronically Ill and Cachectic
HEENT: Normocephalic, Atraumatic, Moist Mucous Membranes and Anicteric
Respiratory: Clear to Auscultation and Non Labored Respirations
Cardiac: Regular Rhythm, S1/S2 and Murmur; Negative Rub, JVD or Gallop
GI: Soft, Normal Bowel Sounds, Tender and Distended (Positive fluid wave)
Musculoskeletal: No Clubbing, No Cyanosis and No Edema
Skin: Warm and Dry; Negative Rash
Neuro: AO x 3 and Nonfocal/Grossly Intact
Psych: Calm
Data Reviewed
-
Labs: Labs Reviewed by me, Discussed with Physician and Discussed with Patient
[2024-08-21 15:00] VITALS: BP 126/76
[2024-08-21 16:45] LABS: Glucose - Point of Care 230 mg/dl (70-99)
[2024-08-21] MEDS: ZOFRAN 4 MG IV ×2 (17:01→23:44)
[2024-08-21 21:32] LABS: Glucose - Point of Care 225 mg/dl (70-99)
[2024-08-21] MEDS: DURAGESIC 12 MCG/HR PATCH 1 PATCH TRANSDERM (22:41)
[2024-08-22 00:30] VITALS: BP 144/74
[2024-08-22] MEDS: LIPITOR PO (00:43)
[2024-08-22] MEDS: PROCARDIA XL (EXTENDED RELEASE) PO ×2 (00:43→09:42)
[2024-08-22] MEDS: COREG PO ×2 (00:43→09:42)
[2024-08-22] MEDS: PEPCID PO (00:44)
[2024-08-22] MEDS: ROXICODONE 5 MG PO ×3 (01:05→20:56)
[2024-08-22] MEDS: TIGAN 100 MG IM (04:12)
[2024-08-22 07:44] VITALS: BP 142/67
[2024-08-22 07:58] LABS: Glucose - Point of Care 197 mg/dl (70-99)
[2024-08-22] MEDS: NOVOLOG FLEXPEN-LOW RESISTANCE 1 UNITS SC (08:37)
[2024-08-22 08:58] LABS: INR 1.68
[2024-08-22 08:59] LABS: % Basophils 0.3 % (0-2); % Eosinophils 1.2 % (0-6); % Lymphocytes 9.5 % (20.5-51.1); % Monocytes 6.1 % (1.7-9.3); % Neutrophils 81.9 % (42.2-75.2); Absolute Eosinophils 0.1 10^3/uL (0-0.7); Absolute Immature Granulocytes 0.1 10^3/uL (0-0.05); Absolute Lymphocytes 0.7 10^3/uL (1.2-3.4); Absolute Monocytes 0.4 10^3/uL (0.1-0.6); Absolute Neutrophils 5.6 10^3/uL (1.4-6.5); Hemoglobin 8.6 g/dL (13.0-18.0); Mean Corp Hgb Conc. 33.1 g/dL (33.0-37.0); Mean Corpuscular Volume 90.6 fL (80.0-94.0); Mean Platelet Volume 11.5 fL (7.4-10.4); Nucleated Red Blood Cells % 0 % (-); Platelet Count 157 10^3/uL (130-400); Red Blood Cell Count 2.87 10^6/uL (4.70-6.10); Red Cell Dist. Width 14.5 % (11.5-14.5); White Blood Cell Count 6.9 10^3/uL (4.8-10.8)
[2024-08-22 09:25] LABS: ALT (SGPT) 44 U/L (0-50); AST (SGOT) 141 U/L (17-59); Albumin 2.3 g/dl (3.5-5.0); Alkaline Phosphatase 680 U/L (38-126); Blood Urea Nitrogen 28 mg/dl (9-20); Calcium 7.7 mg/dl (8.4-10.2); Carbon Dioxide 29 mmol/L (22-30); Chloride 97 mmol/L (98-107); Estimated Creatinine Clearance 15 ml/min; GGTP 231 U/L (15-73); Glucose 165 mg/dl (70-99); Potassium 4.6 mmol/L (3.5-5.1); Sodium 138 mmol/L (135-145); Total Bilirubin 1.9 mg/dl (0.2-1.3); eGFR 13.45
--- NOTE | 2024-08-22 10:03 | W.PN.HOSP.TC ---
Today's Communication/Plan
-
follow up paracentesis; ascitic fluid studies
appreciate GI
IV Zosyn
HD per Renal, appreciate Renal
Assessment / Plan
Assessment / Plan
Mr. Lupillo Sheehan is a 59 yo man, [place] resident, with hx ESRD on HD MWF, non-compliance with HD, CAD, atrial fibrillation on coumadin, essential HTN, HLD presents to the ER for dialysis in setting of elevated INR 8.2. Hospital course complicated by
abdominal distention, nausea/vomiting. Abdominal imaging with severe air distention of cecum and proximal colon with constipation. Repeat X-ray improved.
Abdominal X-Ray 08/14
IMPRESSION:
1. Severe air distention of the cecum and proximal colon.
2. Large amount of fecal material in the rectum.
3. Mild small bowel distention.
4. Severe calcific atherosclerotic plaque in the abdominal aorta and common iliac arteries.
5. Diffuse bone demineralization.
6. Large bilateral lower lobe airspace consolidations.
Abdominal X-Ray 08/15
IMPRESSION:
Mild small bowel dilatation probably due to ileus. Improved.
Moderate gastric distention. Progressed.
CT A/P
IMPRESSION:
1. Acute uncomplicated left-sided colitis, likely of infectious/inflammatory etiology.
2. Large volume abdominopelvic ascites.
3. Cholelithiasis.
4. Severe bilateral lower lobe lung consolidations, likely pneumonia.
#Left-sided colitis
#Diarrhea
Patient with diarrhea, nausea and vomiting; initial x-ray with distention of bowel loops, repeat improved
CT A/P with contrast and oral contrast on 08/18 showed signs of left-sided colitis, no obstruction
C. difficile test negative, stool cultures were negative as well
Remains on IV Zosyn for colitis and pneumonia
appreciate CRS and GI consults
Symptomatically improved as of 08/19
-MIRROR INSPECTOR LACTULOSE on hold
#Bilateral pneumonia
Currently stable on room air without signs of respiratory distress
started Zosyn, plan for at least 7-day course of antibiotic (today is day 7)
Evaluated by TUTORING ASSISTANT, on aspiration precautions and regular consistency diet
Continue IV Zosyn as above and monitor on room air
#Cirrhosis with ascites and esophageal varices
MELD-Na score 32
Per GI not convinced he has true liver cirrhosis as platelet count higher than expected, liver without nodular appearance
Home medications include carvedilol for varices prophylaxis, lactulose for history of HE (?)
ultrasound showed ascites, which may be related to liver cirrhosis versus ESRD
GI providing 3 days of vitamin K to assess for improvement
Paracentesis ordered.
#Ascites
Per GI there is some concern this may be nephrogenic ascites which has very high mortality risk
Plan for paracentesis today
Follow-up fluid studies including total protein and culture
Continue IV Zosyn until SBP ruled out on paracentesis
#Supratherapeutic INR
Either secondary to cirrhosis or vitamin K deficiency with cachexia
6.8 on admission, Vitamin K 10 mg in ER
INR down to 2.8 as of 08/19
Plan to resume Eliquis after procedures, when CBC stable
s/p vitamin K
#Hypertension
continue clonidine, carvedilol with parameters ,
Nifedipine and hydralazine were held
Blood pressure as of 08/19/2024 154/79 mmHg
Resumed nifedipine 30 mg morning 08/20
#Recent influenza infection
Received 75 mg twice daily of Tamiflu for 3 days. Stopped further doses
#End end-stage renal disease hemodialysis
HD schedule Thursday/Thursday/Thursday
Continue sevelamer
Nephrology for dialysis
#Paroxysmal atrial fibrillation
Eliquis placed on hold today because of elevated INR
Remains on carvedilol for rate control
#Prolonged QTc
watch on telemetry
#Coronary artery disease with history of stents
#HLD
continue statin, Coreg
#Diabetes c/b neuropathy
Accu-Cheks and sliding scale coverage
#H/O esophageal varices and portal gastropathy/GERD/hiatal hernia
continue Carafate and Protonix
#Anemia of chronic disease
Trend CBC
#Chronic pain with opiate dependence due to spinal stenosis
continue fentanyl
#Peripheral artery disease with history of femoropopliteal bypass
Continue high intensity statin, resume DOAC after procedures
#Depression
continue sertraline
#History of C. difficile
#Underweight
#History of migraines
#Hypoalbuminemia
#Ex-smoker
DVT prophylaxis-elevated INR. Hold Eliquis
DNR
Anticipated Discharge: 24 - 48 hours
Subjective/Interval History
-
Date of Service: August 22, 2024
seen during HD
states abdominal symptoms are improved
some nausea yesterday, none today
he is having BM
abdomen less tender
Objective Data
-
Labs:
Laboratory Results
08/22/24
08:26
WBC 6.9
Hgb 8.6 L
Hct 26.0 L
Plt Count 157
PT 20.0 H
INR 1.68
Sodium 138
Potassium 4.6
Chloride 97 L
Carbon Dioxide 29
BUN 28 H
Creatinine 4.7 H*
Glucose 165 H
Calcium 7.7 L
Total Bilirubin 1.9 H D
AST 141 H
ALT 44
Alkaline Phosphatase 680 H
Vital Signs:
Vital Signs
Temp Pulse Resp BP Pulse Ox
97.5 F 75 18 142/67 96
08/22/24 07:44 08/22/24 07:44 08/22/24 07:44 08/22/24 07:44 08/22/24 07:44
I&O
08/21/24 08/22/24 08/23/24
06:59 06:59 06:59
Intake Total 0 / 1680 1010 / 1010 120 / 120
Balance 1680 / 1680 1010 / 1010 120 / 120
Review of Systems
-
History Source: Patient
All other systems: Reviewed and negative
Physical Exam
-
General: Well Developed, No Apparent Distress, Appears Chronically Ill and Cachectic
HEENT: Normocephalic, Atraumatic, Moist Mucous Membranes and Anicteric
Respiratory: Clear to Auscultation and Non Labored Respirations
Cardiac: Regular Rhythm, S1/S2 and Murmur; Negative Rub, JVD or Gallop
GI: Soft, Normal Bowel Sounds, Tender and Distended (Positive fluid wave)
Musculoskeletal: No Clubbing, No Cyanosis and No Edema
Skin: Warm and Dry; Negative Rash
Neuro: AO x 3 and Nonfocal/Grossly Intact
Psych: Calm
Data Reviewed
-
Diagnostic Radiology: Report Reviewed by me
Labs: Labs Reviewed by me
--- NOTE | 2024-08-22 11:28 | W.PN.NEPH.HD ---
Assessment
-
Seen on HD. no new complaints. VSS, access ok
eventual LVP
refusing multiple interventions/studies
Progress Note - Hemodialysis
-
Date of Service: August 22, 2024
Duration: 30 minutes and 3 hours
Potassium Bath: 2
Calcium Bath: 2.5
Opti-Dialyzer: 160
Ultrafiltration: Other (2kg)
Blood Flow: 400
Dialysate Flow: 600
Heparin: 0
EPO: 48113 units
[2024-08-22 11:30] LABS: Glucose - Point of Care 102 mg/dl (70-99)
[2024-08-22] MEDS: NEPHROCAP 1 CAPSULE PO (11:37)
[2024-08-22] MEDS: RENVELA 1600 MG PO ×2 (11:38→17:51)
[2024-08-22] MEDS: ZOLOFT 50 MG PO (11:39)
[2024-08-22] MEDS: ZOSYN IV (11:41)
[2024-08-22 11:46] VITALS: BMI 19.3
[2024-08-22 12:00] VITALS: BMI 19.3
[2024-08-22] MEDS: RENVELA PO (13:58)
[2024-08-22] MEDS: NOVOLOG FLEXPEN-LOW RESISTANCE SC (13:58)
[2024-08-22] MEDS: TYLENOL 650 MG PO (14:52)
[2024-08-22] MEDS: ZOFRAN 4 MG IV (14:57)
[2024-08-22 15:34] VITALS: BP 157/74
[2024-08-22 16:23] LABS: Glucose - Point of Care 258 mg/dl (70-99)
[2024-08-22] MEDS: ZOSYN 50 IV (16:25)
--- NOTE | 2024-08-22 17:16 | W.PN.GI.CBS2 ---
Today's Communication / Plan
-
-- para tomorrow
-- palliative discussion/dispo planning
Assessment / Plan
-
Pt is a 59yo with hx decompensated cirrhosis?? diagnosed 12/2023, ascites hx prior very small (reviewed pics) esophageal varices, prior SBP, prior GI bleeding, ASCVD, AFib (prior coumadin now on Eliquis), CHF, DM, neuropathy, spinal stenosis with
chronic back and shoulder pain, pleural effusion, pericardial effusion, frequent fall, ESRD on HD, neuropathy, GERD ? carrera's, c-diff, anxiety/depression with elevated INR 8.2 at SNF as recently noted flu and given tamiflu. In review of chart
last [facility] eval was in February. Her has followed in past with [facility] and [facility] and was advised follow up at [facility] and pt unable to state if follow up was completed. Per prior noted Etiology of cirrhiosis ? MASH/ ? ETOH with
former ETOH use, no formal serology work up at [facility] except hep B/C neg with hep B immunity. Asked to see for abdominal distention, nausea, and vomiting. He has been seen by colorectal surgery as abdominal imaging with severe air distention
of cecum and proximal colon and large amount of stool in rectum. He was recommended MOM enema and CT and was declining some interventions. He also admits to diarrhea at time bu noted with large stool in rectum on imaging. On admission patient is
noted with multiple labs abnormalities with WBC up to 14,100, hbg 10.2 with drop to 8.8, INR 8.2 Outpatient then 6.81 on admission, K 5.9, BUN 61, creat 5-8 range (on chronic HD).
-elevated INR on admission
-cirrhosis - MASH vs ETOH
-abdominal pain
-gastric distention on abd film
-nausea
-recurrent ascites
-diarrhea with concern increased stool burden on imaging on admission
-mild change in mental status
-anemia
-recent flu +
- hx several GI bleeds
-HTN on admission
-PAF (Coumadin prior to admission now on Eliquis)
other med problems:
NIDDM
ESRD on HD
HFpEF
Barretts esophagus
pleural effusion
hx pericardicentesis
spinal stenosis
-C-diff
-hx constipation
constipation and abdominal pain now loose stool and improved pain with CT showing left sided colitis and ascites.
- likely not true colitis but can check c. diff
- for paracentesis
- continue other measures
08/19/24: productive cough on antibiotics. refusing paracentesis today as he feels exhausted after hemodialysis
Okay for paracentesis despite INR since he is cirrhotic it will be elevated. IR did call for him and he refused
Patient's bowel movements are much better and he is having soft brown stools
- patient is cachectic, clearly malnourished and not doing well
-He needs to get established with hepatology and determine if he is an actual transplant candidate
- If he is not amendable to this, hospice would be appropriate
08/20/2024 - having significant BMs without lactulose
-- CT shows thickening of the left colon
-- on antibiotics for pneumonia
-- awaiting paracentesis
-- did a deep dive - unclear etiology for cirrhosis - things that don't fit: normal plts and normal liver on imaging - not nodular or shrunken
Has history of esophageal varices
Needs paracentesis - check total protein, SAAG, cytology, added an adenosine deaminase to look for TB
mildly dilated IVC on ECHO from Apr - but no significant back up from valvular disease or CHF
potentially from renal disease
-- potentially flex sig or colonoscopy if diarrhea doesn't improve
08/21/2024
-- no diarrhea today; hopefully done with antibiotics soon
Based on what I'm finding, I believe his ascites is may be actually nephrogenic ascites and not due to portal hypertension and cirrhosis. I'm reviewing his chart and cirrhosis doesn't fit. His plts are normal and his liver looks normal on imaging.
+ his total protein found in his ascitic fluid are all high which is either nephrogenic or cardiac and his right heart doesn't look that bad but does have pulmonary hypertension. He has never had a liver biopsy or a right heart cath to get an
actual diagnosis.
-- when we get his ascitic fluid need to make sure to get a total protein
-- very poor prognosis if this is nephrogenic ascites
-- we need to get the records from [facility] where he was worked up for his liver
-- need to work on nutrition as that is very important - low salt and low volume diet and may need increased frequency of dialysis
Nephrogenic ascites has a poor prognosis with a mortality rate of 45 percent within 15 months of diagnosis [3https://pmc.ncbi.nlm.nih.gov/articles/MWT9155924/#REF3]. About one-third of patients develop cachexia
[3https://pmc.ncbi.nlm.nih.gov/articles/SMG4574481/#REF3,�10https://pmc.ncbi.nlm.nih.gov/articles/WHW5009431/#REF10]. Kidney transplantation is the only definitive treatment with a resulting resolution of ascites within six weeks of transplantation
in almost all patients
-- I'm going to give him 3 days of vit K to see if this is nutritional in the setting of his severe calorie malnutrition and cachexia
08/22/2024: Patient refused paracentesis since he was exhausted after dialysis
Once he gets the paracentesis performed the SAG and look at the total protein to help differentiate nephrogenic versus cirrhotic
Either way his prognosis is very poor and would be a candidate for hospice/palliative care. We had a discussion about palliative care and hospice but early into the conversation he decided he did not want to talk about it. Says he is okay for
paracentesis for tomorrow.
-- Another option to see if he does have cirrhosis would be an outpatient FibroScan or an MR elastography if the investigation needs to occur
-- His SAAG is more cirrhosis appearing but his total protein is high. Will see what it looks like in this next paracentesis
-- Had 3 episodes of diarrhea today
-- is he done with antibiotics? may be contributing to the diarrhea
Subjective
Subjective
Date of Service: August 22, 2024
Patient had some nausea and vomiting after dialysis but tolerated lunch. States he is in diffuse pain from multiple issues.
Objective
Data Reviewed
Laboratory Data:
Laboratory Results
08/22/24 08:26
08/22/24 08:26
Laboratory Results
PT 20.0 Sec (11.4-14.6) H 08/22/24 08:26
INR 1.68 08/22/24 08:26
Magnesium 1.8 mg/dl (1.6-2.3) 08/18/24 06:38
Total Bilirubin 1.9 mg/dl (0.2-1.3) H D 08/22/24 08:26
AST 141 U/L (17-59) H 08/22/24 08:26
ALT 44 U/L (0-50) 08/22/24 08:26
Alkaline Phosphatase 680 U/L (38-126) H 08/22/24 08:26
Vital Signs and I&O:
Vital Signs
Temp Pulse Resp BP Pulse Ox
99.0 F 86 19 157/74 96
08/22/24 15:34 08/22/24 15:34 08/22/24 15:34 08/22/24 15:34 08/22/24 15:34
I&O
08/21/24 08/22/24 08/23/24
06:59 06:59 06:59
Intake Total 1680 / 1680 1010 / 1010 120 / 120
Balance 1680 / 1680 1010 / 1010 120 / 120
Physical Exam
Physical Exam
HEENT: Anicteric (Mildly icteric)
GI: Soft and Distended
Extremities: No Edema
Neuro: Non Focal
[2024-08-22] MEDS: NOVOLOG FLEXPEN-LOW RESISTANCE 3 UNITS SC (17:50)
[2024-08-22 20:11] VITALS: BP 145/72
[2024-08-22] MEDS: PROCARDIA XL (EXTENDED RELEASE) 30 MG PO (20:52)
[2024-08-22] MEDS: PEPCID 10 MG PO (20:52)
[2024-08-22] MEDS: LIPITOR 80 MG PO (20:52)
[2024-08-22] MEDS: COREG 6.25 MG PO (20:52)
[2024-08-22 21:43] LABS: Glucose - Point of Care 135 mg/dl (70-99)
--- NOTE | 2024-08-22 23:13 | PTCARENOTE ---
Transfer of care from previous RN. Patient appears comfortable in bed, no complaints at this time. Reviewed what medications he will receive for the rest of the shift. Call nieto within reach. Will continue to monitor.
[2024-08-22 23:53] VITALS: BP 150/76
[2024-08-23] MEDS: ZOSYN 50 IV ×3 (00:44→17:19)
[2024-08-23] MEDS: ROXICODONE 5 MG PO ×4 (00:56→23:06)
[2024-08-23 06:00] VITALS: BMI 19.2
[2024-08-23 07:35] VITALS: BP 107/58
[2024-08-23 08:12] LABS: Glucose - Point of Care 136 mg/dl (70-99)
[2024-08-23 08:29] LABS: Hematocrit 27.6 % (39.0-52.0); Hemoglobin 8.7 g/dL (13.0-18.0); Mean Corp Hgb Conc. 31.5 g/dL (33.0-37.0); Mean Corpuscular Hgb 29.2 pg (27.0-31.0); Mean Corpuscular Volume 92.6 fL (80.0-94.0); Mean Platelet Volume 11.5 fL (7.4-10.4); Platelet Count 161 10^3/uL (130-400); Red Blood Cell Count 2.98 10^6/uL (4.70-6.10); Red Cell Dist. Width 14.7 % (11.5-14.5); White Blood Cell Count 5.2 10^3/uL (4.8-10.8)
[2024-08-23] MEDS: COREG PO (08:31)
[2024-08-23] MEDS: NOVOLOG FLEXPEN-LOW RESISTANCE SC ×2 (08:31→13:49)
[2024-08-23] MEDS: PROCARDIA XL (EXTENDED RELEASE) PO (08:32)
[2024-08-23] MEDS: RENVELA PO ×2 (08:32→13:49)
[2024-08-23] MEDS: NEPHROCAP 1 CAPSULE PO (08:42)
[2024-08-23] MEDS: ZOLOFT 50 MG PO (08:42)
[2024-08-23 08:45] LABS: INR 1.71; PT 20.3 Sec (11.4-14.6)
[2024-08-23 09:11] LABS: Blood Urea Nitrogen 19 mg/dl (9-20); Calcium 7.6 mg/dl (8.4-10.2); Carbon Dioxide 35 mmol/L (22-30); Chloride 96 mmol/L (98-107); Estimated Creatinine Clearance 21 ml/min; Glucose 133 mg/dl (70-99); Potassium 3.9 mmol/L (3.5-5.1); Sodium 138 mmol/L (135-145); eGFR 19.84
--- NOTE | 2024-08-23 11:17 | W.PN.HOSP.TC ---
Addendum entered and electronically signed by Shari Bergeron MD 08/23/24 13:38:
discussed with IR, and OK to resume Eliquis now
Original Note:
Today's Communication/Plan
-
Paracentesis today
Assessment / Plan
Assessment / Plan
Mr. Lupillo Sheehan is a 59 yo man, [place] resident, with hx ESRD on HD MWF, non-compliance with HD, CAD, atrial fibrillation on coumadin, essential HTN, HLD presents to the ER for dialysis in setting of elevated INR 8.2. Hospital course complicated by
abdominal distention, nausea/vomiting. Abdominal imaging with severe air distention of cecum and proximal colon with constipation. Repeat X-ray improved.
Abdominal X-Ray 08/14
IMPRESSION:
1. Severe air distention of the cecum and proximal colon.
2. Large amount of fecal material in the rectum.
3. Mild small bowel distention.
4. Severe calcific atherosclerotic plaque in the abdominal aorta and common iliac arteries.
5. Diffuse bone demineralization.
6. Large bilateral lower lobe airspace consolidations.
Abdominal X-Ray 08/15
IMPRESSION:
Mild small bowel dilatation probably due to ileus. Improved.
Moderate gastric distention. Progressed.
CT A/P
IMPRESSION:
1. Acute uncomplicated left-sided colitis, likely of infectious/inflammatory etiology.
2. Large volume abdominopelvic ascites.
3. Cholelithiasis.
4. Severe bilateral lower lobe lung consolidations, likely pneumonia.
#Left-sided colitis
#Diarrhea
Patient with diarrhea, nausea and vomiting; initial x-ray with distention of bowel loops, repeat improved
CT A/P with contrast and oral contrast on 08/18 showed signs of left-sided colitis, no obstruction
C. difficile test negative, stool cultures were negative as well
Remains on IV Zosyn for colitis and pneumonia (day 8)
appreciate CRS and GI consults
Symptomatically improved as of 08/19
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
#Bilateral pneumonia
Currently stable on room air without signs of respiratory distress
s/p 7 days IV Zosyn (today is day 8, will DC if ascitic fluid without e/o SBP)
Evaluated by CAGE TENDER, on aspiration precautions and regular consistency diet
#Cirrhosis with ascites and esophageal varices
MELD-Na score 32
Per GI not convinced he has true liver cirrhosis as platelet count higher than expected, liver without nodular appearance
ultrasound showed ascites, which may be related to liver cirrhosis versus ESRD
s/p vitamin K
paracentesis - patient states he will consent to procedure today (08/23)
#Ascites
Per GI there is some concern this may be nephrogenic ascites which has very high mortality risk
Follow-up fluid studies including total protein and culture --> if nephrogenic ascites, repeat GOC discussion given poor prognosis
Continue IV Zosyn until SBP ruled out on paracentesis
#Supratherapeutic INR
Either secondary to cirrhosis or vitamin K deficiency with cachexia
6.8 on admission, Vitamin K 10 mg in ER
INR down to 2.8 as of 08/19
Plan to resume Eliquis after procedures, when CBC stable
s/p vitamin K, INR 1.7 this AM
#Hypertension
continue clonidine, carvedilol with parameters ,
Nifedipine and hydralazine were held
Blood pressure as of 08/19/2024 154/79 mmHg
Resumed nifedipine 30 mg morning 08/20
#Recent influenza infection
Received 75 mg twice daily of Tamiflu for 3 days. Stopped further doses
#End end-stage renal disease hemodialysis
HD schedule Thursday/Thursday/Thursday
Continue sevelamer
Nephrology for dialysis
#Paroxysmal atrial fibrillation
Resume Eliquis post paracentesis
#Prolonged QTc
watch on telemetry
#Coronary artery disease with history of stents
#HLD
continue statin, Coreg
#Diabetes c/b neuropathy
Accu-Cheks and sliding scale coverage
#H/O esophageal varices and portal gastropathy/GERD/hiatal hernia
continue Carafate and Protonix
#Anemia of chronic disease
Trend CBC
#Chronic pain with opiate dependence due to spinal stenosis
continue fentanyl
#Peripheral artery disease with history of femoropopliteal bypass
Continue high intensity statin, resume DOAC after procedures
#Depression
continue sertraline
#History of C. difficile
#Underweight
#History of migraines
#Hypoalbuminemia
#Ex-smoker
DVT prophylaxis- resume Eliquis post parcentesis
DNR
Anticipated Discharge: 24 - 48 hours
Subjective/Interval History
-
Date of Service: August 23, 2024
seen sitting up brushing teeth, about to work with therapy
denies significant abdominal pain
Objective Data
-
Labs:
Laboratory Results
08/23/24
08:10
WBC 5.2
Hgb 8.7 L
Hct 27.6 L
Plt Count 161
PT 20.3 H
INR 1.71
Sodium 138
Potassium 3.9
Chloride 96 L
Carbon Dioxide 35 H
BUN 19
Creatinine 3.4 H
Glucose 133 H
Calcium 7.6 L
Vital Signs:
Vital Signs
Temp Pulse Resp BP Pulse Ox
97.3 F 61 16 107/58 98
08/23/24 07:35 08/23/24 07:35 08/23/24 07:35 08/23/24 08:32 08/23/24 07:35
I&O
08/22/24 08/23/24 08/24/24
06:59 06:59 06:59
Intake Total 1010 / 1010 120 / 120
Balance 1010 / 1010 120 / 120
Review of Systems
-
History Source: Patient
All other systems: Reviewed and negative
Physical Exam
-
General: Well Developed, No Apparent Distress, Appears Chronically Ill and Cachectic
HEENT: Normocephalic, Atraumatic, Moist Mucous Membranes and Anicteric
Respiratory: Clear to Auscultation and Non Labored Respirations
Cardiac: Regular Rhythm, S1/S2 and Murmur; Negative Rub, JVD or Gallop
GI: Soft, Normal Bowel Sounds, Tender and Distended (Positive fluid wave)
Musculoskeletal: No Clubbing, No Cyanosis and No Edema
Skin: Warm and Dry; Negative Rash
Neuro: AO x 3 and Nonfocal/Grossly Intact
Psych: Calm
Data Reviewed
-
Diagnostic Radiology: Report Reviewed by me
Labs: Labs Reviewed by me
--- NOTE | 2024-08-23 11:44 | W.PN.NEPH.PH ---
Today's Communication / Plan
-
HD tomorrow
Assessment/Plan
-
Impression:
Influenza
Coagulopathy with INR of 6.8 (in setting of advanced liver disease)/Coumadin administration
h/o GIB /portal gastropathy
Multi drug hypertension
Recurrent ascites
ESRD on hemodialysis at [facility], previously [facility]
Anemia of ESRD
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
Paroxysmal Atrial Fibrillation
Chronic HFpEF
History of bilateral pleural effusions status post thoracentesis
History of pericardial effusion status post pericardiocentesis
Coronary artery disease
Essential hypertension
DM2 with multiple microvascular complications
Hyperlipidemia
Spinal stenosis
Anxiety/depression
L radial AVF
Plan:
For paracentesis
Dialysis tomorrow
He says that he has been receiving paracenteses for almost 3 years now
Maintain phos binders with meals for hyperphosphatemia
Maintain current antihypertensives in setting of hypertension
Fluid restriction of 1500 cc daily low-sodium low potassium diet
-
-
Date of Service: August 23, 2024
CC / HPI / ROS
-
Chief Complaint:
ESRD
History of Present Illness:
ESRD Thursday [facility] dialysis unit
Tolerated dialysis yesterday
Hemodynamically stable
Anemia stable on JAIME
Pending paracentesis
Review of Systems:
No shortness of breath
No fevers
Labs
-
Labs:
WBC 5.2 10^3/uL (4.8-10.8) 08/23/24 08:10
RBC 2.98 10^6/uL (4.70-6.10) L 08/23/24 08:10
Hgb 8.7 g/dL (13.0-18.0) L 08/23/24 08:10
Hct 27.6 % (39.0-52.0) L 08/23/24 08:10
Plt Count 161 10^3/uL (130-400) 08/23/24 08:10
Sodium 138 mmol/L (135-145) 08/23/24 08:10
Potassium 3.9 mmol/L (3.5-5.1) 08/23/24 08:10
Chloride 96 mmol/L (98-107) L 08/23/24 08:10
Carbon Dioxide 35 mmol/L (22-30) H 08/23/24 08:10
BUN 19 mg/dl (9-20) 08/23/24 08:10
Creatinine 3.4 mg/dL (0.7-1.3) H 08/23/24 08:10
eGFR 19.84 08/23/24 08:10
Glucose 133 mg/dl (70-99) H 08/23/24 08:10
Calcium 7.6 mg/dl (8.4-10.2) L 08/23/24 08:10
Albumin 2.3 g/dl (3.5-5.0) L 08/22/24 08:26
Physical Exam
-
Vital Signs:
Vital Signs
Temp Pulse Resp BP Pulse Ox
97.3 F 61 16 107/58 98
08/23/24 07:35 08/23/24 07:35 08/23/24 07:35 08/23/24 08:32 08/23/24 07:35
Cardiovascular:: Regular rate and rhythm
Respiratory:: Bilateral: CTA
Lung Excursion:: Normal
Abdomen:: Nontender and Soft
Bowel Sounds:: Normal
Extremity Edema:: None: Bilateral:
[2024-08-23 12:08] LABS: Glucose - Point of Care 195 mg/dl (70-99)
--- NOTE | 2024-08-23 14:08 | W.PN.GI.CBS2 ---
Today's Communication / Plan
-
a/w paracentesis
Assessment / Plan
-
Pt is a 59yo with hx decompensated cirrhosis?? diagnosed 12/2023, ascites hx prior very small (reviewed pics) esophageal varices, prior SBP, prior GI bleeding, ASCVD, AFib (prior coumadin now on Eliquis), CHF, DM, neuropathy, spinal stenosis with
chronic back and shoulder pain, pleural effusion, pericardial effusion, frequent fall, ESRD on HD, neuropathy, GERD ? carrera's, c-diff, anxiety/depression with elevated INR 8.2 at SNF as recently noted flu and given tamiflu. In review of chart
last [facility] eval was in February. [facility] and [facility] advised follow up at [facility] and pt unable to state if follow up was completed. Per prior noted Etiology of cirrhiosis ? MASH/ ? ETOH with
former ETOH use, no formal serology work up at [facility] except hep B/C neg with hep B immunity. Asked to see for abdominal distention, nausea, and vomiting. He has been seen by colorectal surgery as abdominal imaging with severe air distention
of cecum and proximal colon and large amount of stool in rectum. He was recommended MOM enema and CT and was declining some interventions. He also admits to diarrhea at time bu noted with large stool in rectum on imaging. On admission patient is
noted with multiple labs abnormalities with WBC up to 14,100, hbg 10.2 with drop to 8.8, INR 8.2 Outpatient then 6.81 on admission, K 5.9, BUN 61, creat 5-8 range (on chronic HD).
-elevated INR on admission
-cirrhosis - MASH vs ETOH
-abdominal pain
-gastric distention on abd film
-nausea
-recurrent ascites
-diarrhea with concern increased stool burden on imaging on admission
-mild change in mental status
-anemia
-recent flu +
- hx several GI bleeds
-HTN on admission
-PAF (Coumadin prior to admission now on Eliquis)
other med problems:
NIDDM
ESRD on HD
HFpEF
Barretts esophagus
pleural effusion
hx pericardicentesis
spinal stenosis
-C-diff
-hx constipation
constipation and abdominal pain now loose stool and improved pain with CT showing left sided colitis and ascites.
- likely not true colitis but can check c. diff
- for paracentesis
- continue other measures
08/19/24: productive cough on antibiotics. refusing paracentesis today as he feels exhausted after hemodialysis
Okay for paracentesis despite INR since he is cirrhotic it will be elevated. IR did call for him and he refused
Patient's bowel movements are much better and he is having soft brown stools
- patient is cachectic, clearly malnourished and not doing well
-He needs to get established with hepatology and determine if he is an actual transplant candidate
- If he is not amendable to this, hospice would be appropriate
08/20/2024 - having significant BMs without lactulose
-- CT shows thickening of the left colon
-- on antibiotics for pneumonia
-- awaiting paracentesis
-- did a deep dive - unclear etiology for cirrhosis - things that don't fit: normal plts and normal liver on imaging - not nodular or shrunken
Has history of esophageal varices
Needs paracentesis - check total protein, SAAG, cytology, added an adenosine deaminase to look for TB
mildly dilated IVC on ECHO from Apr - but no significant back up from valvular disease or CHF
potentially from renal disease
-- potentially flex sig or colonoscopy if diarrhea doesn't improve
08/21/2024
-- no diarrhea today; hopefully done with antibiotics soon
Based on what I'm finding, I believe his ascites is may be actually nephrogenic ascites and not due to portal hypertension and cirrhosis. I'm reviewing his chart and cirrhosis doesn't fit. His plts are normal and his liver looks normal on imaging.
+ his total protein found in his ascitic fluid are all high which is either nephrogenic or cardiac and his right heart doesn't look that bad but does have pulmonary hypertension. He has never had a liver biopsy or a right heart cath to get an
actual diagnosis.
-- when we get his ascitic fluid need to make sure to get a total protein
-- very poor prognosis if this is nephrogenic ascites
-- we need to get the records from [facility] where he was worked up for his liver
-- need to work on nutrition as that is very important - low salt and low volume diet and may need increased frequency of dialysis
Nephrogenic ascites has a poor prognosis with a mortality rate of 45 percent within 15 months of diagnosis [3https://pmc.ncbi.nlm.nih.gov/articles/AFI4672390/#REF3]. About one-third of patients develop cachexia
[3https://pmc.ncbi.nlm.nih.gov/articles/KBA0034989/#REF3,�10https://pmc.ncbi.nlm.nih.gov/articles/INV9068937/#REF10]. Kidney transplantation is the only definitive treatment with a resulting resolution of ascites within six weeks of transplantation
in almost all patients
-- I'm going to give him 3 days of vit K to see if this is nutritional in the setting of his severe calorie malnutrition and cachexia
08/22/2024: Patient refused paracentesis since he was exhausted after dialysis
Once he gets the paracentesis performed the SAG and look at the total protein to help differentiate nephrogenic versus cirrhotic
Either way his prognosis is very poor and would be a candidate for hospice/palliative care. We had a discussion about palliative care and hospice but early into the conversation he decided he did not want to talk about it. Says he is okay for
paracentesis for tomorrow.
-- Another option to see if he does have cirrhosis would be an outpatient FibroScan or an MR elastography if the investigation needs to occur
-- His SAAG is more cirrhosis appearing but his total protein is high. Will see what it looks like in this next paracentesis
-- Had 3 episodes of diarrhea today
-- is he done with antibiotics? may be contributing to the diarrhea
08/23/2024
No BMs this a.m. Awaiting paracentesis.
plan
Follow up fluid analysis
Goals of care discussion
Total Time Spent with Patient (in minutes): 35
Subjective
Subjective
Date of Service: August 23, 2024
Denies any GI complaints. No BMs this a.m.
Objective
Data Reviewed
Laboratory Data:
Laboratory Results
08/23/24 08:10
08/23/24 08:10
Laboratory Results
PT 20.3 Sec (11.4-14.6) H 08/23/24 08:10
INR 1.71 08/23/24 08:10
Magnesium 1.8 mg/dl (1.6-2.3) 08/18/24 06:38
Total Bilirubin 1.9 mg/dl (0.2-1.3) H D 08/22/24 08:26
AST 141 U/L (17-59) H 08/22/24 08:26
ALT 44 U/L (0-50) 08/22/24 08:26
Alkaline Phosphatase 680 U/L (38-126) H 08/22/24 08:26
Vital Signs and I&O:
Vital Signs
Temp Pulse Resp BP Pulse Ox
97.3 F 61 16 107/58 98
08/23/24 07:35 08/23/24 07:35 08/23/24 07:35 08/23/24 08:32 08/23/24 07:35
I&O
08/22/24 08/23/24 08/24/24
06:59 06:59 06:59
Intake Total 1010 / 1010 120 / 120
Balance 1010 / 1010 120 / 120
Physical Exam
Physical Exam
GI: Soft, Distended and Non Tender
[2024-08-23 15:00] VITALS: BP 163/73; BP_SYST 64
[2024-08-23 15:38] VITALS: BP 163/78
[2024-08-23 16:00] VITALS: BP 174/79
[2024-08-23 16:19] LABS: Body Fluid Mononuclear 57.4 %; Body Fluid Polymorphonuclear 42.6 %; Body Fluid WBC 169 /CUMM
[2024-08-23 16:22] LABS: Body Fluid Second Tech RLT
[2024-08-23 16:23] LABS: Body Fluid Albumin 1.1 g/dl; Body Fluid LDH 76 U/L; Body Fluid Protein 2.8 g/dl
[2024-08-23 17:13] LABS: Glucose - Point of Care 192 mg/dl (70-99)
[2024-08-23] MEDS: RENVELA 1600 MG PO (17:25)
[2024-08-23] MEDS: NOVOLOG FLEXPEN-LOW RESISTANCE 1 UNITS SC (17:25)
--- NOTE | 2024-08-23 18:26 | W.PN.UPDATE ---
Update Note
Progress Note Update
Cross-cover- Patient with cough and wants something for his phlegm-ordered some Mucinex
[2024-08-23 22:01] LABS: Glucose - Point of Care 214 mg/dl (70-99)
[2024-08-23] MEDS: COREG 6.25 MG PO (22:48)
[2024-08-23] MEDS: ELIQUIS 2.5 MG PO (22:48)
[2024-08-23] MEDS: MUCINEX 600 MG PO (22:49)
[2024-08-23] MEDS: PROCARDIA XL (EXTENDED RELEASE) 30 MG PO (22:49)
[2024-08-23] MEDS: LIPITOR 80 MG PO (22:50)
[2024-08-23] MEDS: PEPCID 10 MG PO (22:53)
[2024-08-23 23:00] VITALS: BP 171/76
[2024-08-24] MEDS: ZOSYN 50 IV (00:13)
[2024-08-24 06:00] VITALS: BMI 18.6
[2024-08-24 07:15] VITALS: BP 126/67
[2024-08-24 07:51] LABS: Glucose - Point of Care 98 mg/dl (70-99)
[2024-08-24] MEDS: NOVOLOG FLEXPEN-LOW RESISTANCE SC ×2 (08:25→11:59)
[2024-08-24] MEDS: COREG PO (08:26)
[2024-08-24] MEDS: ROXICODONE 5 MG PO ×2 (08:27→16:30)
[2024-08-24] MEDS: ZOLOFT 50 MG PO (08:28)
[2024-08-24] MEDS: PROCARDIA XL (EXTENDED RELEASE) PO (08:28)
[2024-08-24] MEDS: ELIQUIS 2.5 MG PO ×2 (08:29→21:56)
[2024-08-24] MEDS: RENVELA 1600 MG PO ×3 (08:29→18:48)
[2024-08-24] MEDS: NEPHROCAP 1 CAPSULE PO (08:30)
[2024-08-24] MEDS: MUCINEX 600 MG PO ×2 (08:30→21:57)
[2024-08-24 08:56] LABS: Hematocrit 24.5 % (39.0-52.0); Hemoglobin 7.8 g/dL (13.0-18.0); Mean Corp Hgb Conc. 31.8 g/dL (33.0-37.0); Mean Corpuscular Hgb 28.6 pg (27.0-31.0); Mean Corpuscular Volume 89.7 fL (80.0-94.0); Mean Platelet Volume 11.3 fL (7.4-10.4); Platelet Count 166 10^3/uL (130-400); Red Blood Cell Count 2.73 10^6/uL (4.70-6.10); White Blood Cell Count 6.4 10^3/uL (4.8-10.8)
[2024-08-24] MEDS: FLEXBUMIN 25% FOR HEMODIALYSIS 12.5 GRAMS IV ×2 (09:00→10:47)
[2024-08-24] MEDS: MANNITOL 25% 12.5 GRAMS IV ×2 (09:05→10:47)
[2024-08-24 09:16] LABS: INR 1.96; PT 22.8 Sec (11.4-14.6)
[2024-08-24] MEDS: ZOSYN IV (09:36)
[2024-08-24] MEDS: RETACRIT 10000 UNITS IV (09:49)
[2024-08-24 09:53] LABS: Albumin 2.2 g/dl (3.5-5.0)
--- NOTE | 2024-08-24 09:56 | W.PN.NEPH.HD ---
Assessment
-
Tolerating dialysis treatment
Progress Note - Hemodialysis
-
Date of Service: August 24, 2024
Duration: 30 minutes and 3 hours
Potassium Bath: 2
Calcium Bath: 2.5
Opti-Dialyzer: 160
Ultrafiltration: Other (2kg)
Blood Flow: 400
Dialysate Flow: 600
Heparin: 0
EPO: [id number] units
[2024-08-24] MEDS: ProAmatine 10 MG PO (10:34)
[2024-08-24 11:04] LABS: Carbon Dioxide 30 mmol/L (22-30); Chloride 95 mmol/L (98-107); Potassium 4.3 mmol/L (3.5-5.1); Sodium 135 mmol/L (135-145)
[2024-08-24 11:45] LABS: Glucose - Point of Care 117 mg/dl (70-99)
--- NOTE | 2024-08-24 12:02 | W.PN.GI.CBS2 ---
Today's Communication / Plan
-
continue current medical treatement
Assessment / Plan
-
Pt is a 59yo with hx decompensated cirrhosis?? diagnosed 12/2023, ascites hx prior very small (reviewed pics) esophageal varices, prior SBP, prior GI bleeding, ASCVD, AFib (prior coumadin now on Eliquis), CHF, DM, neuropathy, spinal stenosis with
chronic back and shoulder pain, pleural effusion, pericardial effusion, frequent fall, ESRD on HD, neuropathy, GERD ? carrera's, c-diff, anxiety/depression with elevated INR 8.2 at SNF as recently noted flu and given tamiflu. In review of chart
last [facility] eval was in February. Her has followed in past with Dedra and Liam and was advised follow up at [facility] and pt unable to state if follow up was completed. Per prior noted Etiology of cirrhiosis ? MASH/ ? ETOH with
former ETOH use, no formal serology work up at [facility] except hep B/C neg with hep B immunity. Asked to see for abdominal distention, nausea, and vomiting. He has been seen by colorectal surgery as abdominal imaging with severe air distention
of cecum and proximal colon and large amount of stool in rectum. He was recommended MOM enema and CT and was declining some interventions. He also admits to diarrhea at time bu noted with large stool in rectum on imaging. On admission patient is
noted with multiple labs abnormalities with WBC up to 14,100, hbg 10.2 with drop to 8.8, INR 8.2 Outpatient then 6.81 on admission, K 5.9, BUN 61, creat 5-8 range (on chronic HD).
-elevated INR on admission
-cirrhosis - MASH vs ETOH
-abdominal pain
-gastric distention on abd film
-nausea
-recurrent ascites
-diarrhea with concern increased stool burden on imaging on admission
-mild change in mental status
-anemia
-recent flu +
- hx several GI bleeds
-HTN on admission
-PAF (Coumadin prior to admission now on Eliquis)
other med problems:
NIDDM
ESRD on HD
HFpEF
Barretts esophagus
pleural effusion
hx pericardicentesis
spinal stenosis
-C-diff
-hx constipation
constipation and abdominal pain now loose stool and improved pain with CT showing left sided colitis and ascites.
- likely not true colitis but can check c. diff
- for paracentesis
- continue other measures
08/19/24: productive cough on antibiotics. refusing paracentesis today as he feels exhausted after hemodialysis
Okay for paracentesis despite INR since he is cirrhotic it will be elevated. IR did call for him and he refused
Patient's bowel movements are much better and he is having soft brown stools
- patient is cachectic, clearly malnourished and not doing well
-He needs to get established with hepatology and determine if he is an actual transplant candidate
- If he is not amendable to this, hospice would be appropriate
08/20/2024 - having significant BMs without lactulose
-- CT shows thickening of the left colon
-- on antibiotics for pneumonia
-- awaiting paracentesis
-- did a deep dive - unclear etiology for cirrhosis - things that don't fit: normal plts and normal liver on imaging - not nodular or shrunken
Has history of esophageal varices
Needs paracentesis - check total protein, SAAG, cytology, added an adenosine deaminase to look for TB
mildly dilated IVC on ECHO from Apr - but no significant back up from valvular disease or CHF
potentially from renal disease
-- potentially flex sig or colonoscopy if diarrhea doesn't improve
08/21/2024
-- no diarrhea today; hopefully done with antibiotics soon
Based on what I'm finding, I believe his ascites is may be actually nephrogenic ascites and not due to portal hypertension and cirrhosis. I'm reviewing his chart and cirrhosis doesn't fit. His plts are normal and his liver looks normal on imaging.
+ his total protein found in his ascitic fluid are all high which is either nephrogenic or cardiac and his right heart doesn't look that bad but does have pulmonary hypertension. He has never had a liver biopsy or a right heart cath to get an
actual diagnosis.
-- when we get his ascitic fluid need to make sure to get a total protein
-- very poor prognosis if this is nephrogenic ascites
-- we need to get the records from [facility] where he was worked up for his liver
-- need to work on nutrition as that is very important - low salt and low volume diet and may need increased frequency of dialysis
Nephrogenic ascites has a poor prognosis with a mortality rate of 45 percent within 15 months of diagnosis [3https://pmc.ncbi.nlm.nih.gov/articles/IXV1757859/#REF3]. About one-third of patients develop cachexia
[3https://pmc.ncbi.nlm.nih.gov/articles/KOY2809400/#REF3,�10https://pmc.ncbi.nlm.nih.gov/articles/IBG9876983/#REF10]. Kidney transplantation is the only definitive treatment with a resulting resolution of ascites within six weeks of transplantation
in almost all patients
-- I'm going to give him 3 days of vit K to see if this is nutritional in the setting of his severe calorie malnutrition and cachexia
08/22/2024: Patient refused paracentesis since he was exhausted after dialysis
Once he gets the paracentesis performed the SAG and look at the total protein to help differentiate nephrogenic versus cirrhotic
Either way his prognosis is very poor and would be a candidate for hospice/palliative care. We had a discussion about palliative care and hospice but early into the conversation he decided he did not want to talk about it. Says he is okay for
paracentesis for tomorrow.
-- Another option to see if he does have cirrhosis would be an outpatient FibroScan or an MR elastography if the investigation needs to occur
-- His SAAG is more cirrhosis appearing but his total protein is high. Will see what it looks like in this next paracentesis
-- Had 3 episodes of diarrhea today
-- is he done with antibiotics? may be contributing to the diarrhea
08/23/2024
No BMs this a.m. Awaiting paracentesis.
08/24/2024
patient underwent paracentesis with removal of 2450 cc.
Fluid SAAG >1.1, Total protein 2.8 . negative for SBP. possible etiology multifactorial
plan
Continue current management as per medical team
Overall poor prognosis with non compliance . Evaluated by palliative care
Will recommend follow-up with GI as outpatient- previously seen by [facility]. . possible fibroscan as outpatient . No further recommendation. Will sign off
Total Time Spent with Patient (in minutes): 35
Subjective
Subjective
Date of Service: August 24, 2024
No GI complaint
Objective
Data Reviewed
Laboratory Data:
Laboratory Results
08/24/24 08:45
08/24/24 07:00
Laboratory Results
PT 22.8 Sec (11.4-14.6) H 08/24/24 08:45
INR 1.96 08/24/24 08:45
Magnesium 1.8 mg/dl (1.6-2.3) 08/18/24 06:38
Total Bilirubin 1.9 mg/dl (0.2-1.3) H D 08/22/24 08:26
AST 141 U/L (17-59) H 08/22/24 08:26
ALT 44 U/L (0-50) 08/22/24 08:26
Alkaline Phosphatase 680 U/L (38-126) H 08/22/24 08:26
Vital Signs and I&O:
Vital Signs
Temp Pulse Resp BP Pulse Ox
97.5 F 60 16 126/67 97
08/24/24 07:15 08/24/24 07:15 08/24/24 07:15 08/24/24 07:15 08/24/24 07:15
I&O
08/23/24 08/24/24 08/25/24
06:59 06:59 06:59
Intake Total 120 / 120 960 / 960
Balance 120 / 120 960 / 960
Physical Exam
Physical Exam
GI: Soft, Non Distended and Non Tender
--- NOTE | 2024-08-24 12:59 | W.PN.HOSP.TC ---
Today's Communication/Plan
-
Discontinue antibiotic
Hold lactulose and monitor bowel status
Discharge planning
Close OP palliative follow-up
Assessment / Plan
Assessment / Plan
#Left-sided colitis
#Diarrhea
Patient with diarrhea, nausea and vomiting; initial x-ray with distention of bowel loops, repeat improved
CT A/P with contrast and oral contrast on 08/18 showed signs of left-sided colitis, no obstruction
C. difficile test negative, stool cultures were negative as well
Remains on IV Zosyn for colitis and pneumonia (day 8)
appreciate CRS and GI consults
Symptomatically improved as of 08/19
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
#Bilateral pneumonia
Currently stable on room air without signs of respiratory distress
s/p 7 days IV Zosyn (today is day 8, will DC if ascitic fluid without e/o SBP)
Evaluated by ALLOY WEIGHER, on aspiration precautions and regular consistency diet
#Cirrhosis with ascites and esophageal varices
MELD-Na score 32
Per GI not convinced he has true liver cirrhosis as platelet count higher than expected, liver without nodular appearance
ultrasound showed ascites, which may be related to liver cirrhosis versus ESRD
s/p vitamin K
paracentesis - patient states he will consent to procedure today (08/23)
#Ascites
Per GI there is some concern this may be nephrogenic ascites which has very high mortality risk
Follow-up fluid studies including total protein and culture --> if nephrogenic ascites, repeat GOC discussion given poor prognosis
Continue IV Zosyn until SBP ruled out on paracentesis
SAAG was >1.1, GI suspects multifactorial etiology
No signs of SBP, IV Zosyn discontinued
#Supratherapeutic INR
Either secondary to cirrhosis or vitamin K deficiency with cachexia
6.8 on admission, Vitamin K 10 mg in ER
INR down to 2.8 as of 08/19
Has been resumed on DOAC
#Hypertension
continue clonidine, carvedilol with parameters ,
Nifedipine and hydralazine were held
Blood pressure as of 08/19/2024 154/79 mmHg
Resumed nifedipine 30 mg morning 08/20
#Recent influenza infection
Received 75 mg twice daily of Tamiflu for 3 days. Stopped further doses
#End end-stage renal disease hemodialysis
HD schedule Thursday/Thursday/Thursday
Continue sevelamer
Nephrology for dialysis
#Paroxysmal atrial fibrillation
Resume Eliquis post paracentesis
#Prolonged QTc
watch on telemetry
#Coronary artery disease with history of stents
#HLD
continue statin, Coreg
#Diabetes c/b neuropathy
Accu-Cheks and sliding scale coverage
#H/O esophageal varices and portal gastropathy/GERD/hiatal hernia
continue Carafate and Protonix
#Anemia of chronic disease
Trend CBC
#Chronic pain with opiate dependence due to spinal stenosis
continue fentanyl
#Peripheral artery disease with history of femoropopliteal bypass
Continue high intensity statin, resume DOAC after procedures
#Depression
continue sertraline
#History of C. difficile
#Underweight
#History of migraines
#Hypoalbuminemia
#Ex-smoker
DVT prophylaxis- resume Eliquis post parcentesis
DNR
Anticipated Discharge: 24 - 48 hours
Subjective/Interval History
-
Date of Service: August 24, 2024
Seen and examined at bedside. No acute events reported overnight. AFVSS as of this morning. Receiving dialysis
Paracentesis performed yesterday, fluid studies without signs of SBP, SAAG >1.1 with likely multifactorial etiology
No significant diarrhea reported today
Objective Data
-
Labs:
Laboratory Results
08/24/24 08/24/24
07:00 08:45
WBC 6.4
Hgb 7.8 L
Hct 24.5 L
Plt Count 166
PT 22.8 H
INR 1.96
Sodium 135
Potassium 4.3
Chloride 95 L
Carbon Dioxide 30
Vital Signs:
Vital Signs
Temp Pulse Resp BP Pulse Ox
97.5 F 60 16 126/67 97
08/24/24 07:15 08/24/24 07:15 08/24/24 07:15 08/24/24 07:15 08/24/24 07:15
I&O
08/23/24 08/24/24 08/25/24
06:59 06:59 06:59
Intake Total 120 / 120 960 / 960
Balance 120 / 120 960 / 960
Review of Systems
-
History Source: Patient
All other systems: Reviewed and negative
Physical Exam
-
General: Well Developed, No Apparent Distress, Appears Chronically Ill and Cachectic
HEENT: Normocephalic, Atraumatic, Moist Mucous Membranes and Anicteric
Respiratory: Clear to Auscultation and Non Labored Respirations; Negative Accessory Resp Muscle Use
Cardiac: Regular Rhythm and S1/S2; Negative Murmur, Rub or Gallop
GI: Soft, Nontender, Nondistended and Normal Bowel Sounds
Musculoskeletal: No Clubbing, No Cyanosis and No Edema
Skin: Warm, Dry and Normal Turgor
Neuro: AO x 3 and Nonfocal/Grossly Intact; Negative Tremors
Psych: Calm
Data Reviewed
-
Labs: Labs Reviewed by me and Discussed with Patient
[2024-08-24 15:45] VITALS: BP 156/72
[2024-08-24] MEDS: IMODIUM 2 MG PO (16:26)
[2024-08-24 17:05] LABS: Glucose - Point of Care 257 mg/dl (70-99)
[2024-08-24] MEDS: NOVOLOG FLEXPEN-LOW RESISTANCE 3 UNITS SC (18:48)
[2024-08-24] MEDS: DURAGESIC 12 MCG/HR PATCH 1 PATCH TRANSDERM (20:18)
[2024-08-24 21:28] LABS: Glucose - Point of Care 124 mg/dl (70-99)
[2024-08-24] MEDS: COREG 6.25 MG PO (21:55)
[2024-08-24] MEDS: PROCARDIA XL (EXTENDED RELEASE) 30 MG PO (21:57)
[2024-08-24] MEDS: LIPITOR 80 MG PO (21:58)
[2024-08-24] MEDS: PEPCID 10 MG PO (21:58)
[2024-08-24 23:00] VITALS: BP 182/83
[2024-08-25] MEDS: ROXICODONE 5 MG PO ×5 (00:15→23:19)
[2024-08-25 05:22] VITALS: BMI 18.4
[2024-08-25 06:25] LABS: % Basophils 0.8 % (0-2); % Eosinophils 2.1 % (0-6); % Immature Granulocytes 0.3 % (0-0.5); % Lymphocytes 16.2 % (20.5-51.1); % Monocytes 7.5 % (1.7-9.3); % Neutrophils 73.1 % (42.2-75.2); Absolute Basophils 0.1 10^3/uL (0-0.2); Absolute Eosinophils 0.1 10^3/uL (0-0.7); Absolute Monocytes 0.5 10^3/uL (0.1-0.6); Absolute Neutrophils 4.6 10^3/uL (1.4-6.5); Hematocrit 27.2 % (39.0-52.0); Hemoglobin 8.4 g/dL (13.0-18.0); Mean Corp Hgb Conc. 30.9 g/dL (33.0-37.0); Mean Corpuscular Hgb 29.1 pg (27.0-31.0); Mean Corpuscular Volume 94.1 fL (80.0-94.0); Mean Platelet Volume 11.3 fL (7.4-10.4); Nucleated Red Blood Cells % 0 % (-); Platelet Count 213 10^3/uL (130-400); Red Blood Cell Count 2.89 10^6/uL (4.70-6.10); Red Cell Dist. Width 15.1 % (11.5-14.5); White Blood Cell Count 6.3 10^3/uL (4.8-10.8)
[2024-08-25 06:46] LABS: Blood Urea Nitrogen 17 mg/dl (9-20); Calcium 7.5 mg/dl (8.4-10.2); Carbon Dioxide 36 mmol/L (22-30); Chloride 95 mmol/L (98-107); Estimated Creatinine Clearance 23 ml/min; Glucose 97 mg/dl (70-99); Potassium 4.1 mmol/L (3.5-5.1); Sodium 138 mmol/L (135-145); eGFR 23.06
[2024-08-25 07:05] VITALS: BP 142/70
[2024-08-25 07:42] LABS: Glucose - Point of Care 148 mg/dl (70-99)
[2024-08-25] MEDS: NOVOLOG FLEXPEN-LOW RESISTANCE SC (08:20)
[2024-08-25] MEDS: COREG 6.25 MG PO (08:23)
[2024-08-25] MEDS: RENVELA 1600 MG PO ×3 (08:23→17:34)
[2024-08-25] MEDS: MUCINEX 600 MG PO ×2 (08:23→20:00)
[2024-08-25] MEDS: NEPHROCAP 1 CAPSULE PO (08:24)
[2024-08-25] MEDS: PROCARDIA XL (EXTENDED RELEASE) 30 MG PO ×2 (08:24→20:00)
[2024-08-25] MEDS: ELIQUIS 2.5 MG PO ×2 (08:24→20:00)
[2024-08-25] MEDS: ZOLOFT 50 MG PO (08:24)
[2024-08-25] MEDS: CATAPRES-TTS-3 0.3 MG TRANSDERM (08:25)
[2024-08-25 11:54] LABS: Glucose - Point of Care 193 mg/dl (70-99)
--- NOTE | 2024-08-25 12:02 | W.PN.NEPH.PH ---
Today's Communication / Plan
-
Dialysis tomorrow
Assessment/Plan
-
Impression:
Influenza
Coagulopathy with INR of 6.8 (in setting of advanced liver disease)/Coumadin administration
h/o GIB /portal gastropathy
Multi drug hypertension
Recurrent ascites
ESRD on hemodialysis at [facility], previously [facility]
Anemia of ESRD
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
Paroxysmal Atrial Fibrillation
Chronic HFpEF
History of bilateral pleural effusions status post thoracentesis
History of pericardial effusion status post pericardiocentesis
Coronary artery disease
Essential hypertension
DM2 with multiple microvascular complications
Hyperlipidemia
Spinal stenosis
Anxiety/depression
L radial AVF
Plan:
For paracentesis 5/6= 2.4 L
Dialysis tomorrow
He says that he has been receiving paracenteses for almost 3 years now
Maintain phos binders with meals for hyperphosphatemia
Maintain current antihypertensives in setting of hypertension
Fluid restriction of 1500 cc daily low-sodium low potassium diet
-
-
Date of Service: August 25, 2024
CC / HPI / ROS
-
Chief Complaint:
ESRD
History of Present Illness:
ESRD Thursday [facility] dialysis unit
Tolerated dialysis yesterday
Hemodynamically stable
Anemia stable on JAIME
Review of Systems:
No shortness of breath
No fevers
Labs
-
Labs:
WBC 6.3 10^3/uL (4.8-10.8) 08/25/24 05:46
RBC 2.89 10^6/uL (4.70-6.10) L 08/25/24 05:46
Hgb 8.4 g/dL (13.0-18.0) L 08/25/24 05:46
Hct 27.2 % (39.0-52.0) L 08/25/24 05:46
Plt Count 213 10^3/uL (130-400) D 08/25/24 05:46
Sodium 138 mmol/L (135-145) 08/25/24 05:46
Potassium 4.1 mmol/L (3.5-5.1) 08/25/24 05:46
Chloride 95 mmol/L (98-107) L 08/25/24 05:46
Carbon Dioxide 36 mmol/L (22-30) H 08/25/24 05:46
BUN 17 mg/dl (9-20) 08/25/24 05:46
Creatinine 3.0 mg/dL (0.7-1.3) H 08/25/24 05:46
eGFR 23.06 08/25/24 05:46
Glucose 97 mg/dl (70-99) 08/25/24 05:46
Calcium 7.5 mg/dl (8.4-10.2) L 08/25/24 05:46
Albumin 2.2 g/dl (3.5-5.0) L 08/23/24 08:10
Physical Exam
-
Vital Signs:
Vital Signs
Temp Pulse Resp BP Pulse Ox
97.6 F 62 17 142/70 98
08/25/24 07:05 08/25/24 08:25 08/25/24 07:05 08/25/24 08:25 08/25/24 08:00
Cardiovascular:: Regular rate and rhythm
Respiratory:: Bilateral: CTA
Lung Excursion:: Normal
Abdomen:: Nontender and Soft
Bowel Sounds:: Normal
Extremity Edema:: None: Bilateral:
[2024-08-25] MEDS: NOVOLOG FLEXPEN-LOW RESISTANCE 1 UNITS SC (12:10)
--- NOTE | 2024-08-25 12:35 | W.PN.HOSP.TC ---
Addendum entered and electronically signed by Lazaro Hwang DO 08/25/24 15:16:
CDI: Supratherapeutic INR, chronic coagulopathy secondary to cirrhosis
Original Note:
Today's Communication/Plan
-
Discharge
Labs in 1 week as OP
OP palliative follow-up
Assessment / Plan
Assessment / Plan
#Left-sided colitis
#Diarrhea
Patient with diarrhea, nausea and vomiting; initial x-ray with distention of bowel loops, repeat improved
CT A/P with contrast and oral contrast on 08/18 showed signs of left-sided colitis, no obstruction
C. difficile test negative, stool cultures were negative as well
Remains on IV Zosyn for colitis and pneumonia (day 8)
appreciate CRS and GI consults
Symptomatically improved as of 08/19
-CHHA LACTULOSE on hold
#Bilateral pneumonia
Currently stable on room air without signs of respiratory distress
s/p 7 days IV Zosyn (today is day 8, will DC if ascitic fluid without e/o SBP)
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
#Cirrhosis with ascites and esophageal varices
MELD-Na score 32
Per GI not convinced he has true liver cirrhosis as platelet count higher than expected, liver without nodular appearance
ultrasound showed ascites, which may be related to liver cirrhosis versus ESRD
s/p vitamin K
paracentesis - patient states he will consent to procedure today (08/23)
#Ascites
Per GI there is some concern this may be nephrogenic ascites which has very high mortality risk
Follow-up fluid studies including total protein and culture --> if nephrogenic ascites, repeat GOC discussion given poor prognosis
Continue IV Zosyn until SBP ruled out on paracentesis
SAAG was >1.1, GI suspects multifactorial etiology
No signs of SBP, IV Zosyn discontinued
#Supratherapeutic INR
Either secondary to cirrhosis or vitamin K deficiency with cachexia
6.8 on admission, Vitamin K 10 mg in ER
INR down to 2.8 as of 08/19
Has been resumed on DOAC
#Hypertension
continue clonidine, carvedilol with parameters ,
Nifedipine and hydralazine were held
Blood pressure as of 08/19/2024 154/79 mmHg
Resumed nifedipine 30 mg morning 08/20
#Recent influenza infection
Received 75 mg twice daily of Tamiflu for 3 days. Stopped further doses
#End end-stage renal disease hemodialysis
HD schedule Thursday/Thursday/Thursday
Continue sevelamer
Nephrology for dialysis
#Paroxysmal atrial fibrillation
Resumed Eliquis
#Prolonged QTc
watch on telemetry
#Coronary artery disease with history of stents
#HLD
continue statin, Coreg
#Diabetes c/b neuropathy
Accu-Cheks and sliding scale coverage
#H/O esophageal varices and portal gastropathy/GERD/hiatal hernia
continue Carafate and Protonix
#Anemia of chronic disease
Trend CBC
#Chronic pain with opiate dependence due to spinal stenosis
continue fentanyl
#Peripheral artery disease with history of femoropopliteal bypass
Continue high intensity statin and Eliquis
#Depression
continue sertraline
#History of C. difficile
#Underweight
#History of migraines
#Hypoalbuminemia
#Ex-smoker
DVT prophylaxis-reduced dose Eliquis
DNR
Anticipated Discharge: Today
Subjective/Interval History
-
Date of Service: August 25, 2024
Seen and examined at the bedside. No acute events reported overnight. AFVSS
Labs are generally stable. Patient denies any new complaints, states he has chronic issues that are stable
Denies any diarrhea as of this morning
Objective Data
-
Labs:
Laboratory Results
08/25/24
05:46
WBC 6.3
Hgb 8.4 L
Hct 27.2 L
Plt Count 213 D
Sodium 138
Potassium 4.1
Chloride 95 L
Carbon Dioxide 36 H
BUN 17
Creatinine 3.0 H
Glucose 97
Calcium 7.5 L
Vital Signs:
Vital Signs
Temp Pulse Resp BP Pulse Ox
97.6 F 62 17 142/70 98
08/25/24 07:05 08/25/24 08:25 08/25/24 07:05 08/25/24 08:25 08/25/24 08:00
I&O
08/24/24 08/25/24 08/26/24
06:59 06:59 06:59
Intake Total 960 / 960 240 / 1200 960 / 960
Balance 960 / 960 240 / 1200 960 / 960
Review of Systems
-
History Source: Patient
All other systems: Reviewed and negative
Physical Exam
-
General: Well Developed, No Apparent Distress, Appears Chronically Ill and Cachectic
HEENT: Normocephalic, Atraumatic, Moist Mucous Membranes and Anicteric
Respiratory: Clear to Auscultation and Non Labored Respirations; Negative Accessory Resp Muscle Use
Cardiac: Regular Rhythm, S1/S2 and Murmur; Negative Rub or Gallop
GI: Soft, Nontender, Nondistended and Normal Bowel Sounds
Musculoskeletal: No Clubbing, No Cyanosis and No Edema
Skin: Warm and Dry; Negative Rash
Neuro: AO x 3 and Nonfocal/Grossly Intact; Negative Tremors
Psych: Calm
--- NOTE | 2024-08-25 14:40 | PN.CDI ---
CDI
- -
CDI:
Physician Documentation Request
Admit Date: 08/12/24 17:31
Dear Doctor Jaiden,
Clinical Indicators:
Patient presented from nursing facility with elevated INR 6.81.
08/24 PN, 'Supratherapeutic INR Either secondary to cirrhosis or vitamin K deficiency with cachexia'
Based on the above, could you clarify in the progress notes, the appropriate diagnosis, if significant, that supports the above abnormalities and additional evaluation, monitoring and/or treatment rendered:
Coagulopathy
Supratherapeutic INR only
Other, please specify
Use of terms such as suspected, likely, concern for, or probable (associated with a specific diagnosis that is being evaluated, monitored, or treated as if it exists) are acceptable and can be coded in the inpatient setting, when documented at the
time of discharge.
Thank you,
HALEY Harding RN
CDI Specialist
available via tiger text
Please use your independent medical judgment in providing your response.
--- NOTE | 2024-08-25 14:53 | W.DCSUMMARY ---
Discharge Summary
Discharge Data
Date of Admission: 08/12/24
Date of Discharge: 08/26/24
Total time spent discharging patient (in min): 32
-
Pending Results: No
Hospital Course
Discharging provider: Lazaro Hwang DO
Discharge disposition: [facility]
Primary Hospital diagnoses:
Ascites (cirrhosis versus nephrogenic)
Left-sided colitis
Community-acquired pneumonia
Paroxysmal AF (Warfarin -> Eliquis)
Supratherapeutic INR on warfarin
Severe protein calorie malnutrition
Diarrhea
Secondary chronic diagnoses:
Liver cirrhosis (?) C/B esophageal varices + ascites + HE(?)
ESRD on HD M/W/F
Chronic HFpEF
CAD s/p PCI
PAD s/p lower extremity bypass
Paroxysmal AF on AC
IDDM
Hypertension
Dyslipidemia
AOCD
Spinal stenosis
Chronic pain/opiate dependence
Hospital course:
59-year-old male with complicated past medical history with significant number of medical comorbidities that presented to the hospital with elevated INR and recurrent ascites.Upon arrival had INR 6.81 without evidence of active bleeding. Was given
vitamin K and home warfarin held, INR improved put stabilized near 2.6 without any anticoagulation. Received further doses of vitamin K with improvement of INR down to 1.68. Patient was initially resistant to having medical procedures and testing
done, was considering transition to hospice. He ultimately elected to become DNR however chose to continue with medical care. Underwent paracentesis with 2.5 L of ascitic fluid drained, SAAG >1.1 with ascitic protein 2.8 likely consistent with
multifactorial ascites. PMN count <250, no concerns for SBP. GI mentions concerns over whether he has a real diagnosis of liver cirrhosis as platelet counts have been perpetually normal. Mention concern for nephrogenic ascites which has very poor
prognosis though this diagnosis was not given during this hospital stay. With degree of chronically elevated INR suspect he does have cirrhosis though may have other superimposed processes such as heart failure and nephrogenic ascites. Should have
consideration for outpatient fibro elastography if deemed beneficial.
He had diarrhea multiple days over his hospital stay. Stool studies with C. difficile testing, stool cultures were ultimately negative. His home lactulose regimen was held and diarrhea remained fairly consistent. CT A/P with contrast here showed
evidence of left-sided colitis though no specification of the etiology. Clinically he improved and was given 1 dose of Imodium in the hospital. Recommended continue as needed lactulose and Imodium as OP to regulate bowel status.
He did have some shortness of breath and coughing during his hospital stay. Chest x-ray and CT with signs of bilateral lower lobe consolidation. Was treated with 7 days of IV Zosyn. Did not require supplemental oxygen. At time of discharge he
was stable on room air comfortably.
Ultimately, patient has multiple significant end-stage medical issues as well as noncompliance with his therapy. Long-term prognosis is very poor. Patient should have follow-up with palliative care provider, consideration for transition to hospice.
Consultants:
Nephrology: Rashad Posada MD
Gastroenterology: Derek Juárez MD
Interventional radiology: MICHELLE Ngo
Important imaging findings:
Abdomen ultrasound (08/14/2024)
FINDINGS: There is a large volume of ascites in the right upper quadrant, left upper quadrant, right lower quadrant, left lower quadrant of the abdomen.
Abdomen x-ray (08/14/24)
IMPRESSION:
1. Severe air distention of the cecum and proximal colon.
2. Large amount of fecal material in the rectum.
3. Mild small bowel distention.
4. Severe calcific atherosclerotic plaque in the abdominal aorta and common iliac arteries.
5. Diffuse bone demineralization.
6. Large bilateral lower lobe airspace consolidations.
Abdomen x-ray (08/15/2024)
IMPRESSION: Mild small bowel dilatation probably due to ileus. Improved. Moderate gastric distention. Progressed.
Chest x-ray, one-view portable AP (08/15/2024)
Lungs: There is mild patchy airspace disease in the right perihilar region right lower lung field. There are similar findings in left lower lung field concerning for pneumonia. There is no pneumothorax. There are tiny bilateral pleural effusions.
CT A/P with IV contrast (08/18/2024)
IMPRESSION:
1. Acute uncomplicated left-sided colitis, likely of infectious/inflammatory etiology.
2. Large volume abdominopelvic ascites.
3. Cholelithiasis.
4. Severe bilateral lower lobe lung consolidations, likely pneumonia.
Procedural findings:
Paracentesis (08/23/2024)
IMPRESSION: Successful ultrasound-guided paracentesis yielding 2450 mL of ascitic fluid.
Follow-up:
PCP in 1 to 2 weeks from discharge
Gastroenterology/hepatology within 2 weeks of discharge (consider fibroelastography)
Palliative care referral provided if needed
Repeat labs in 1 week
Discharge Plan
-
Patient Disposition: Assisted Living
Discharge Diagnosis/Procedures: Ascites (cirrhotic versus nephrogenic)
Liver cirrhosis (?)
Community-acquired pneumonia
Diarrhea/colitis
End-stage renal disease
Supratherapeutic INR
Prolonged QTc
Cachexia
Condition: Fair
Diet: Other diet
Additional Diets: Carb controlled, low potassium, 50 ounce fluid restriction
Activity: As tolerated
Driving Restrictions: No driving
Bathing Restrictions: None
Blood Work: BMP, magnesium level, CBC with differential, LFTs 1 week after discharge from hospital
Activity Restrictions/Additional Instructions:
Should have follow-up with primary physician within 1 to 2 weeks of discharge from the hospital
Patient should have follow-up with the palliative care provider. Hospice was discussed while he was hospitalized here, patient not ready to transition to hospice as of yet though is medically appropriate with his medical noncompliance and multiple
end-stage organ condition
Instructions: Hemodialysis
Referrals:
Masood Randall I., DO [Family Provider] -
Bonnie Matson MD [Active] - in two to three weeks
Tash Mancuso NP [Specified Professional Personl] - in two to three weeks
Additional Discharge Medication Instructions: Stop warfarin
Stop hydralazine
Start Eliquis 2.5 mg every 12 hours
Reduce dose frequency of oxycodone from every 4 hours as needed to every 8 hours as needed to accommodate renal function
Prescriptions:
New
Eliquis 2.5 mg Tablet
2.5 mg PO BID 30 Days Qty: 60 0RF
oxycodone 5 mg Tablet
5 mg PO Q8HPRN PRN (Reason: severe pain) Qty: 30 0RF
Continued
atorvastatin 80 mg Tablet
80 mg PO HS
lidocaine-prilocaine 2.5-2.5 % Cream
1 applic TOPICAL MOWEFR PRN (Reason: port access)
Dialyvite 100-1 mg tablet
1 tab PO DAILY
pantoprazole 40 mg tablet,delayed release (DR/EC)
40 mg PO BID
nifedipine 30 mg Tablet Extended Release
30 mg PO BID 30 Days Qty: 60 0RF
carvedilol 6.25 mg Tablet
6.25 mg PO BID 30 Days Qty: 60 0RF
acetaminophen [Tylenol] 325 mg Tablet
650 mg PO Q6HPRN PRN (Reason: mild pain/fever)
ondansetron HCl 4 mg Tablet
4 mg PO Q6HPRN PRN (Reason: nausea)
bisacodyl [Dulcolax (bisacodyl)] 10 mg Suppository
10 mg ME DAILYPRN PRN (Reason: if no bm aftr mom)
polyethylene glycol 3350 17 gram powder in packet
17 g PO DAILYPRN PRN (Reason: Constipation)
clonidine 0.3 mg/24 hr patch weekly
0.3 mg transdermal TH
loperamide 2 mg Capsule
2 mg PO Q6HPRN PRN (Reason: loose stool)
acetaminophen [Tylenol Extra Strength] 500 mg Tablet
500 mg PO Q6HPRN PRN (Reason: mild pain)
cyclopentolate 2 % Drops
1 drp RIGHT EYE TID
insulin lispro 100 unit/mL Insulin Pen
2 - 12 sliding scale dose SC AC
Rx Instructions:
if 150-200= 2 units; 201-250= 4 units; 251-300= 6 units; 301-350= 8 units; 351-400= 10 units; 401-450= 12 units; >450 call MD
difluprednate [Durezol] 0.05 % Drops
1 drp RIGHT EYE Q2H
dorzolamide-timolol (PF) [Cosopt (PF)] 2-0.5 % Dropperette
1 drp RIGHT EYE BID
sucralfate 100 mg/mL Suspension
1 g PO DAILY@1200 Qty: 300 0RF
fentanyl 12 mcg/hr patch 72 hour
1 patch transdermal Q72H Qty: 1 0RF
tramadol 50 mg Tablet
50 mg PO Q6HPRN PRN (Reason: moderate pain)
sertraline 50 mg Tablet
50 mg PO DAILY
hydralazine 10 mg tablet
5 mg PO MOWEFR PRN (Reason: sbp >180)
lactulose 10 gram/15 mL solution
30 ml PO BID
sevelamer carbonate 800 mg tablet
1,600 mg PO MEALS
Discontinued
hydralazine 100 mg tablet
100 mg PO TID
oxycodone 5 mg Tablet
5 mg PO Q4HPRN PRN (Reason: severe pain)
oseltamivir [Tamiflu] 75 mg Capsule
75 mg PO BID
Discharge Orders:
Discharge Patient (As Directed); Ordered 08/26/24
Ordered By: Lazaro Hwang
Discharge Date and Time
Print Language: CYPRIOT
[2024-08-25 15:05] VITALS: BP 95/51
[2024-08-25 15:59] VITALS: BP 92/43; BP 93/56; PULSE 81
[2024-08-25 17:04] LABS: Glucose - Point of Care 223 mg/dl (70-99)
[2024-08-25] MEDS: NOVOLOG FLEXPEN-LOW RESISTANCE 2 UNITS SC (17:34)
[2024-08-25] MEDS: COREG PO (20:58)
[2024-08-25] MEDS: PEPCID 10 MG PO (21:07)
[2024-08-25] MEDS: LIPITOR 80 MG PO (21:07)
--- NOTE | 2024-08-25 23:00 | PTCARENOTE ---
Patient c/o generalized pain. Patient requesting his Roxicodone. Patient unable to receive next dose of Roxicodone until 0001. MICHELLE Cohen made aware and order received to give Roxicodone now. Will continue to monitor.
[2024-08-25 23:20] VITALS: BP 167/73
[2024-08-26] MEDS: ROXICODONE 5 MG PO (05:48)
[2024-08-26 06:00] VITALS: BMI 19.0
[2024-08-26 07:05] VITALS: BP 120/62
[2024-08-26 08:07] LABS: Glucose - Point of Care 100 mg/dl (70-99)
[2024-08-26] MEDS: NOVOLOG FLEXPEN-LOW RESISTANCE SC ×2 (08:23→12:06)
[2024-08-26] MEDS: PROCARDIA XL (EXTENDED RELEASE) PO (08:37)
[2024-08-26] MEDS: COREG PO (08:37)
[2024-08-26] MEDS: ELIQUIS 2.5 MG PO (08:39)
[2024-08-26] MEDS: NEPHROCAP 1 CAPSULE PO (08:39)
[2024-08-26] MEDS: RENVELA 1600 MG PO ×2 (08:39→13:32)
[2024-08-26] MEDS: MUCINEX 600 MG PO (08:39)
[2024-08-26] MEDS: ZOLOFT 50 MG PO (08:39)
[2024-08-26] MEDS: ZOFRAN 4 MG IV (10:08)
[2024-08-26 12:04] LABS: Glucose - Point of Care 123 mg/dl (70-99)
--- NOTE | 2024-08-26 12:27 | W.PN.HOSP.TC ---
Today's Communication/Plan
-
Discharge after HD session
Assessment / Plan
Assessment / Plan
#Left-sided colitis
#Diarrhea
Patient with diarrhea, nausea and vomiting; initial x-ray with distention of bowel loops, repeat improved
CT A/P with contrast and oral contrast on 08/18 showed signs of left-sided colitis, no obstruction
C. difficile test negative, stool cultures were negative as well
Remains on IV Zosyn for colitis and pneumonia (day 8)
appreciate CRS and GI consults
Symptomatically improved as of 08/19
-WINTERIZER LACTULOSE on hold
#Bilateral pneumonia
Currently stable on room air without signs of respiratory distress
s/p 7 days IV Zosyn (today is day 8, will DC if ascitic fluid without e/o SBP)
Evaluated by [employer], on aspiration precautions and regular consistency diet
#Cirrhosis with ascites and esophageal varices
MELD-Na score 32
Per GI not convinced he has true liver cirrhosis as platelet count higher than expected, liver without nodular appearance
ultrasound showed ascites, which may be related to liver cirrhosis versus ESRD
s/p vitamin K
paracentesis - patient states he will consent to procedure today (08/23)
#Ascites
Per GI there is some concern this may be nephrogenic ascites which has very high mortality risk
Follow-up fluid studies including total protein and culture --> if nephrogenic ascites, repeat GOC discussion given poor prognosis
Continue IV Zosyn until SBP ruled out on paracentesis
SAAG was >1.1, GI suspects multifactorial etiology
No signs of SBP, IV Zosyn discontinued
#Supratherapeutic INR
Either secondary to cirrhosis or vitamin K deficiency with cachexia
6.8 on admission, Vitamin K 10 mg in ER
INR down to 2.8 as of 08/19
Has been resumed on DOAC
#Hypertension
continue clonidine, carvedilol with parameters ,
Nifedipine and hydralazine were held
Blood pressure as of 08/19/2024 154/79 mmHg
Resumed nifedipine 30 mg morning 08/20
#Recent influenza infection
Received 75 mg twice daily of Tamiflu for 3 days. Stopped further doses
#End end-stage renal disease hemodialysis
HD schedule Thursday/Thursday/Thursday
Continue sevelamer
Nephrology for dialysis
#Dizziness
Provided meclizine today (08/26)
#Paroxysmal atrial fibrillation
Resumed Eliquis
#Prolonged QTc
watch on telemetry
#Coronary artery disease with history of stents
#HLD
continue statin, Coreg
#Diabetes c/b neuropathy
Accu-Cheks and sliding scale coverage
#H/O esophageal varices and portal gastropathy/GERD/hiatal hernia
continue Carafate and Protonix
#Anemia of chronic disease
Trend CBC
#Chronic pain with opiate dependence due to spinal stenosis
continue fentanyl
#Peripheral artery disease with history of femoropopliteal bypass
Continue high intensity statin and Eliquis
#Depression
continue sertraline
#History of C. difficile
#Underweight
#History of migraines
#Hypoalbuminemia
#Ex-smoker
DVT prophylaxis-reduced dose Eliquis
DNR
Anticipated Discharge: Today
Subjective/Interval History
-
Date of Service: August 26, 2024
Seen and examined at bedside. No acute events reported overnight. AFVSS this morning
Yesterday was discharged but refused to leave. Remains in the hospital. Complains of some dizziness this morning
Dialysis scheduled for near noon. Discharge placed for following dialysis session
Objective Data
-
Vital Signs:
Vital Signs
Temp Pulse Resp BP Pulse Ox
97.4 F 64 17 120/62 98
08/26/24 07:05 08/26/24 07:05 08/26/24 07:05 08/26/24 08:37 08/26/24 07:05
I&O
08/25/24 08/26/24 08/27/24
06:59 06:59 06:59
Intake Total 240 / 1200 2039
Output Total 0 / 0
Balance 240 / 1200 2039
Review of Systems
-
History Source: Patient
All other systems: Reviewed and negative
Physical Exam
-
General: Well Developed, Appears Chronically Ill and Cachectic
HEENT: Normocephalic, Atraumatic, Moist Mucous Membranes and Anicteric
Respiratory: Clear to Auscultation and Non Labored Respirations; Negative Accessory Resp Muscle Use
Cardiac: Regular Rhythm and S1/S2; Negative Murmur, Rub or Gallop
GI: Soft, Nontender, Nondistended and Normal Bowel Sounds
Musculoskeletal: No Clubbing, No Cyanosis and No Edema
Skin: Warm and Dry; Negative Rash
Neuro: AO x 3 and Nonfocal/Grossly Intact
Psych: Calm
[2024-08-26] MEDS: MANNITOL 25% 12.5 GRAMS IV ×2 (13:25→15:45)
--- NOTE | 2024-08-26 13:27 | CM ---
Pt has been cleared for discharge back to [facility] today. Ambulance transport requested; anticipate after 5PM.
D/C plan: return back to [facility] for a supervisor intermediates care.
CM will follow for discharge plan updates as hospitalization progresses
[facility] Report: [phone]
[facility]
--- NOTE | 2024-08-26 13:28 | W.PN.NEPH.HD ---
Progress Note - Hemodialysis
-
Date of Service: August 26, 2024
Duration: 30 minutes and 3 hours
Potassium Bath: 2
Calcium Bath: 2.5
Opti-Dialyzer: 160
Ultrafiltration: Other (2kg)
Blood Flow: 400
Dialysate Flow: 600
Heparin: 0
EPO: 59394 units
[2024-08-26 13:54] LABS: Hemoglobin 8.8 g/dL (13.0-18.0); Mean Corp Hgb Conc. 32.6 g/dL (33.0-37.0); Mean Corpuscular Hgb 29.8 pg (27.0-31.0); Mean Corpuscular Volume 91.5 fL (80.0-94.0); Mean Platelet Volume 11.4 fL (7.4-10.4); Platelet Count 223 10^3/uL (130-400); Red Blood Cell Count 2.95 10^6/uL (4.70-6.10); Red Cell Dist. Width 15.4 % (11.5-14.5); White Blood Cell Count 7.3 10^3/uL (4.8-10.8)
[2024-08-26] MEDS: FLEXBUMIN 25% FOR HEMODIALYSIS 12.5 GRAMS IV ×2 (14:02→15:30)
[2024-08-26] MEDS: RETACRIT 10000 UNITS IV (14:03)
[2024-08-26 14:18] LABS: Blood Urea Nitrogen 31 mg/dl (9-20); Calcium 7.4 mg/dl (8.4-10.2); Carbon Dioxide 30 mmol/L (22-30); Chloride 94 mmol/L (98-107); Estimated Creatinine Clearance 17 ml/min; Glucose 125 mg/dl (70-99); Potassium 4.9 mmol/L (3.5-5.1); Sodium 133 mmol/L (135-145); eGFR 15.85
[2024-08-26 15:05] VITALS: BP 114/63
[2024-08-26 16:57] LABS: Glucose - Point of Care 102 mg/dl (70-99)
== END 2024-08-26 20:10 | DRG 432 ==
LOC: 3 WEST ACU 17:31
PROVIDERS: Hospitalist; Internal Medicine; Internal Medicine Gastroenterology; Internal Medicine Nephrology; Nurse Practitioner Family; Physician Assistant; Physician Assistant Medical; Radiology Diagnostic Radiology; Registered Nurse; Specialist; Student in an Organized Health Care Education/Training Program; ADMITTING PHYSICIAN Internal Medicine; ATTENDING PHYSICIAN Internal Medicine; CONSULT PHYSICIAN Specialist; CONSULT PHYSICIAN Surgery; EMERGENCY PHYSICIAN Emergency Medicine; FAMILY PHYSICIAN Internal Medicine; OTHER PHYSICIAN Internal Medicine
PROC: 5A1D70Z Performance of Urinary Filtration, Intermittent, Less than 6 Hours Per Day (ICD-10-PCS; 2024-08-13)
PROC: 0W9G3ZZ Drainage of Peritoneal Cavity, Percutaneous Approach (ICD-10-PCS; 2024-08-23)
DX: K70.31 Alcoholic cirrhosis of liver with ascites (principal); E43 Unspecified severe protein-calorie malnutrition; I85.11 Secondary esophageal varices with bleeding; N18.6 End stage renal disease; J18.9 Pneumonia, unspecified organism; D68.9 Coagulation defect, unspecified; K51.50 Left sided colitis without complications; Z68.1 Body mass index [BMI] 19.9 or less, adult; I13.2 Hypertensive heart and chronic kidney disease with heart failure and with stage 5 chronic kidney disease, or end stage renal disease; I50.32 Chronic diastolic (congestive) heart failure; F11.20 Opioid dependence, uncomplicated; R64 Cachexia; K56.7 Ileus, unspecified; E87.5 Hyperkalemia; E11.22 Type 2 diabetes mellitus with diabetic chronic kidney disease; Z79.01 Long term (current) use of anticoagulants; Z87.891 Personal history of nicotine dependence; Z66 Do not resuscitate; G89.29 Other chronic pain; Z99.2 Dependence on renal dialysis
CPT/HCPCS: 88305; 49083; 71045; 74018; 74019; 74177; 76705; 80048; 80051; 80053; 82040; 82042; 82248; 82962; 82977; 83036; 83615; 83735; 84157; 84443; 84484; 85014; 85018; 85025; 85027; 85610; 87015; 87040; 87045; 87046; 87070; 87205; 87324; 87427; 87449; 88112; 89051; 92526; 92610; 93005; 94640; 96374; 96375; 97163; 97167; 97530; 97535; 99285; G0257; P9047; Q5106; Q9967